=== PATIENT | male | born 1950 | race Caucasian/White ===

== ENCOUNTER 2016-07-25 20:05 | Emergency (ER) | payer BC, OTHER ==
[~2016-07-25] VITALS: Ht 177.8 cm; Wt 99.2 kg
[~2016-07-25 20:05] MED LIST: ASPEC81 PO; GLC/500 PO; OXYC1TAB3 PO; OXYSR10 PO; SENN-65 PO
[2016-07-25 20:09] VITALS: TEMP 37.1; Ht 177.8 cm; Wt 99.2 kg
[2016-07-25] MEDS ORDERED: MoRPHine SULFATE 10 MG/ML CARP/VIAL IM STA (20:19)
[2016-07-25] MEDS ORDERED: ONDANSETRON 4MG OD TAB PO ONE (20:30)
[2016-07-25] MEDS ORDERED: OXYC-164 PO (20:46)
--- NOTE | 2016-07-25 21:23 | DIAGNOSTIC IMAGING REPORT ---
LEFT RIBS UNILATERAL WITH PA CHEST CLINICAL HISTORY: Left lower rib pain. Shortness of breath. COMPARISON STUDY: Chest radiograph October 16, 2010. FINDINGS: There is no pneumothorax or pleural effusion. Linear left lower lung opacity suggests atelectasis or scarring. There are multiple old bilateral rib fractures. In addition, there are are acute nondisplaced fractures of the anterior left eighth and ninth ribs. There is no evidence for pulmonary edema. Cardiomediastinal silhouette is stable. IMPRESSION: Acute nondisplaced fractures of the anterior left eighth and ninth ribs. No pneumothorax. Multiple old bilateral rib fractures. Electronically signed by: Nemesio Gtz M.D. 07/25/2016 9:22 PM Dictated Date/Time: 07/25/2016 9:17 PM
[2016-07-25] MEDS ORDERED: OXYC1TAB3 PO (21:46)
[2016-07-25] MEDS ORDERED: HYDROmorphone INJ 1 MG/ML SYR IM STA (22:01)
--- NOTE | 2016-07-25 22:01 | EMERGENCY ROOM VISIT NOTE ---
ED Visit Note First contact with patient: 20:15 The patient was seen and examined with Hill Galvan. I agree with the history, physical and findings. Please see the note for disposition and details.
[2016-07-25] MEDS ORDERED: OXYCODONE IR HOME PACK PO ONE (22:15)
[2016-07-25 22:18] VITALS: BP 171/69; PULSE 76; O2SAT 93
--- NOTE | 2016-07-25 23:25 | EMERGENCY ROOM VISIT NOTE ---
History First contact with patient: 20:15 Chief Complaint: RIB PAIN Stated Complaint: RIB LEFT SIDE-BREATHING History of Present Illness The patient is a 66 year old male who presents to the Emergency Room with complaints of left lower rib pain. 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 He felt a pop in his ribs. The patient reports that this happened over a week ago. He reports that the pain was slowly improving until today. He believes that he may have done something else to reinjure the ribs, but does not recall any specific injury. The patient reports that he now has shortness of breath with ambulation. The pain does not radiate into the back or abdomen. He has had no fever or chills. The patient has had multiple traumatic injuries in the past, including rib fractures. He rates his discomfort a 9 out of 10 on exam. Review of Systems 10 system review was performed and was negative except for pertinent positives and negatives as indicated in history of present illness Past Medical/Surgical History Medical Problems: (1) Benign hypertension Medical Problems: (1) Acute Kidney Failure With Lesion Of Tubular Necrosis (2) Acute Renal Failure, Unspecified (3) Asthma, Unspecified (4) Benign hypertension (5) Biceps Tendon Rupture (6) Chr Maxillary Sinusitis (7) Depressive Disorder Nec (8) Endocarditis Nos (9) Esophageal Reflux (10) Fx Mult Ribs Nos-Closed (11) Hepatitis Nos (12) Hypertension Nos (13) Opioid type dependence, unspecified (14) Pneumonia, Organism Nos (15) Pulmonary Collapse (16) Type 2 Diabetes Mellitus Without Complications (17) Vitamin D Deficiency, Unspecified Surgical Problems: (1) History of cholecystectomy (2) Previous back surgery Family History FH: heart disease Social History Smoking Status: Former Smoker Alcohol Use: none Marital Status: Occupation Status: employed Current/Historical Medications Scheduled Metformin Hcl (Glucophage), 500 MG PO BID Oxycodone Hcl (Oxycodone Hcl), 1 TAB PO Q12 Oxycodone Ir (Roxicodone Ir), 5 MG PO Q6HR PRN Scheduled PRN Oxycodone Ir (Roxicodone Ir), 1-2 TAB PO Q4H PRN for Pain Allergies Coded Allergies: No Known Allergies (Verified , 07/25/16) Physical Exam Vital Signs Date Time Temp Pulse Resp B/P Pulse Ox O2 Delivery O2 Flow Rate FiO2 07/25/16 22:18 76 18 171/69 93 07/25/16 20:09 37.1 80 20 187/76 94 Room Air Physical Exam CONSTITUTIONAL: Healthy and well nourished. Alert and oriented X 3 with positive affect. Patient appears in moderate discomfort from pain. HEENT: Normocephalic, atraumatic. Pupils equal, round and reactive. NECK: Full active range of motion without discomfort. RESPIRATORY: Clear to auscultation bilaterally with no wheezing, crackles, rhonchi or stridor. Deep breathing worsens the patient's left lower rib discomfort. CARDIOVASCULAR: Regular rate and rhythm with no murmurs, rubs or gallops. GASTROINTESTINAL: Bowel sounds present in all quadrants. Soft and nontender to palpation. MUSCULOSKELETAL: Examination shows tenderness to palpation through the left lateral and inferior rib region. The patient has no tenderness to palpation of the abdominal left upper quadrant area no focal tenderness through the rib heads or costochondral joints. No ecchymosis is noted over the chest wall. No subcutaneous emphysema or flail chest. INTEGUMENTARY: No rash or other significant dermatologic conditions noted. NEUROLOGIC: No focal neurologic deficits noted. Medical Decision & Procedures ER Provider Diagnostic Interpretation: My interpretation of left rib x-rays does not show any acute pneumothorax or consolidation. He does have acute nondisplaced fractures of the anterior left eighth and ninth ribs. Radiologist report is as follows: LEFT RIBS UNILATERAL WITH PA CHEST CLINICAL HISTORY: Left lower rib pain. Shortness of breath. COMPARISON STUDY: Chest radiograph October 16, 2010. FINDINGS: There is no pneumothorax or pleural effusion. Linear left lower lung opacity suggests atelectasis or scarring. There are multiple old bilateral rib fractures. In addition, there are are acute nondisplaced fractures of the anterior left eighth and ninth ribs. There is no evidence for pulmonary edema. Cardiomediastinal silhouette is stable. IMPRESSION: Acute nondisplaced fractures of the anterior left eighth and ninth ribs. No pneumothorax. Multiple old bilateral rib fractures. Medications Administered Medications (Trade) Dose Ordered Sig/Dolly Route Start Time Stop Time Status Last Admin Dose Admin Morphine Sulfate (MoRPHine SULFATE INJ) 6 mg NOW STAT IM 07/25/16 20:19 07/25/16 20:21 DC 07/25/16 20:37 6 MG Ondansetron HCl (Zofran Odt) 4 mg ONE ONCE PO 07/25/16 20:30 07/25/16 20:32 DC 07/25/16 20:37 4 MG Hydromorphone HCl (Dilaudid Inj) 1 mg ONE STAT IM 07/25/16 22:01 07/25/16 22:03 DC 07/25/16 22:01 1 MG Oxycodone HCl (Roxicodone Immediate Rel 5MG Home Pack) 1 homepack UD ONCE PO 07/25/16 22:15 07/25/16 22:16 DC 07/25/16 22:13 1 HOMEPACK ED Course Patient history and physical exam were performed. Nurse's notes were reviewed. The patient did request something for pain, and was administered morphine 6 mg IM. X-rays of left ribs with a PA chest shows nondisplaced fractures of the left anterior eighth and ninth ribs. No consolidations or pneumothorax noted. The patient was advised of his x-ray findings. The patient reports that he has used an incentive spirometer in the past, but does not have one at home. One was dispensed with instructions for use. Regarding pain management, I did ask the patient if he has pain medications at home. His reports that he is on chronic pain management for his back, and takes OxyContin and oxycodone, prescribed by his PCP, Dr. Glez. Review of the [place] Prescription Drug Monitoring Program does show that he receives monthly prescriptions. He is due for another prescription refill. I did explain to the patient that he must discuss further pain management with his PCP. The patient reports that he only has a few pills left, and is requesting a prescription until he can get his new prescriptions filled. Because the patient does have rib fractures, a prescription and will be provided , however the patient was instructed to call his PCPs office tomorrow to let them know that he got a prescription from the emergency department. I explained that his pain management contract may be nullified if he does not advised them. Both the patient and voiced understanding. The patient was provided a home pack and prescription for OxyIR 5 mg, dispensed #36 with no refills. The patient was also instructed to follow-up with his PCP for further rib fracture management. Return to the emergency department for any shortness of breath, fever or developing productive cough. The patient was administered an additional Dilaudid 1 mg IM prior to discharge, and further reduced his pain from a 6 out of 10 to a 3 out of 10 at the conclusion of my exam. The patient was also seen and examined by Dr. Dang, ED attending physician , who agrees with workup and plan of care. [place] Drug Monitoring Program Search Results: patient reviewed within database, see additional documentation Impression Primary Impression: Multiple rib fractures Departure Information Prescriptions Oxycodone Ir (Roxicodone Ir) 5 Mg Tab 1-2 TAB PO Q4H Y for Pain, #36 TAB For Initial Treatment Prov: Nicola Galvan PA 07/25/16 Referrals Jerzy Glez M.D. (PCP) Patient Instructions [facility] Problem Qualifiers Primary Impression: Multiple rib fractures Encounter type: initial encounter Fracture type: closed Laterality: left Qualified Codes: S22.42XA - Multiple fractures of ribs, left side, initial encounter for closed fracture
== END 2016-07-25 22:19 | disposition home or self-care (01) ==
LOC: C.EDB 20:06 → C.EDD 22:19
DX: S22.42XA Multiple fractures of ribs, left side, initial encounter for closed fracture (principal); X58.XXXA Exposure to other specified factors, initial encounter; I10 Essential (primary) hypertension; E11.9 Type 2 diabetes mellitus without complications; K21.9 Gastro-esophageal reflux disease without esophagitis; I38 Endocarditis, valve unspecified; J45.909 Unspecified asthma, uncomplicated; F32.9 Major depressive disorder, single episode, unspecified; Z87.81 Personal history of (healed) traumatic fracture; Z90.49 Acquired absence of other specified parts of digestive tract; Z98.890 Other specified postprocedural states; Z87.891 Personal history of nicotine dependence; Z79.4 Long term (current) use of insulin; Z82.49 Family history of ischemic heart disease and other diseases of the circulatory system

== ENCOUNTER 2022-01-01 16:24 | Inpatient (IN) ==
--- NOTE | 2022-01-01 17:27 | ED Triage Note ---
Date of Service January 01, 2022 History of Present Illness This patient was briefly evaluated while in triage. An abbreviated physical exam was performed. This patient is a 71-year-old Male with past medical history of hypertension, diabetes, history of cholecystectomy and back surgery, who presents to the ED for evaluation of trouble breathing and pain in the left mid to upper back that comes through to the chest, and feels pressure in chest that started about 3 days ago. Pain and SOB worse with exertion. Denies cough, fevers, chills. Has been having some swelling in legs. Denies any history of previous heart disease. Physical Exam CONSTITUTIONAL: No acute distress. Well appearing. RESPIRATORY: Bibasilar fine crackles, diminished lung sounds bilaterally. Equal expansion bilaterally. CARDIOVASCULAR: Regular rate and rhythm with no murmurs, rubs or gallops. Normal peripheral perfusion. NEUROLOGIC: Alert and oriented X 4 with normal affect. Initial orders for labs and / or imaging were placed and patient was placed in the waiting area until a bed is available. Please see further documentation for the full ED course.
[2022-01-01 19:28] LABS: Basophils # (auto) 0.06 K/uL (0-0.2); Basophils % (auto) 0.6 %; Eosinophils # (auto) 0.24 K/uL (0-0.50); Eosinophils % (auto) 2.4 %; Hematocrit (blood only) 39.9 % (40.1-51.0); Hemoglobin 13.8 g/dl (14.0-18.0); Immature Granulocytes # (auto) 0.03 K/uL (0.00-0.02); Immature Granulocytes % (auto) 0.3 %; Lymphocytes # (auto) 2.21 K/uL (1.2-3.4); Lymphocytes % (auto) 21.7 %; Mean Corpuscular Hemoglobin 33.4 pg (25.0-34.0); Mean Corpuscular Hgb Conc 34.6 g/dL (32.0-36.0); Mean Corpuscular Volume 96.6 fL (80.0-100.0); Mean Platelet Volume 10.9 fL (9.4-12.4); Monocytes # (auto) 0.68 K/uL (0.24-0.82); Monocytes % (auto) 6.7 %; Neutrophils # (auto) 6.96 K/uL (1.4-6.5); Neutrophils % (auto) 68.3 %; Platelet Count 191 K/uL (130-400); RDW Coefficient of Variation 14.7 % (11.5-14.5); RDW Standard Deviation 52.4 fL (36.4-46.3); Red Blood Count 4.13 M/uL (4.63-6.08); White Blood Count 10.18 K/ul (4.8-10.8)
[2022-01-01 19:48] LABS: INR 1.1 (0.9-1.1); Partial Thromboplastin Time 28.5 Seconds (21.0-31.0); Prothrombin Time 11.4 Seconds (9.0-12.0)
[2022-01-01 20:02] LABS: Albumin Globulin Ratio 0.8 (0.9-2); Albumin Level 3.1 gm/dl (3.4-5.0); Bilirubin,Total 1.2 mg/dl (0.2-1.0); Calcium 8.9 mg/dl (8.5-10.1); Creatinine Clr Calc Pharmacy 71.4 ml/min; Est GFR (African American) 77.6 ml/min; Globulin 3.9 gm/dl (2.5-4.0); Potassium 4.5 mmol/L (3.5-5.1)
[2022-01-01 20:07] LABS: Troponin I High Sensitivity 17.5 pg/ml (0-20)
[2022-01-01] MEDS ORDERED: OPTIRAY 300 500mL IV ONE (20:28)
[2022-01-01] MEDS ORDERED: FUROSEMIDE 40 MG/4 ML VIAL IV ONE (21:16)
[2022-01-01] MEDS ORDERED: oxyCODONE HCL IR 5 MG TAB (IMMEDIATE RELEASE) PO STA (21:19)
--- NOTE | 2022-01-01 21:28 | XRay Report ---
XR chest 1V portable HISTORY: 71 years-old Male Chest Pain acute chest pain COMPARISON: CTA chest of same day TECHNIQUE: AP view of the chest FINDINGS: Cardiomegaly with mild pulmonary edema and trace pleural effusions. No pneumothorax. Healed chronic r ight-sided rib fractures. Degenerative changes of the shoulders and spine. IMPRESSION: Cardiomegaly with pulmonary edema and trace pleural effusions. ACT 112: Negative or not required by law. The above report was generated using voice recognition software. It may contain grammatical, syntax o r spelling errors. Electronically signed by: Louis Johnson M.D. 01/01/2022 9:27 PM
--- NOTE | 2022-01-01 21:28 | CT Scan Report ---
CT angio chest PE protocol CT DOSE: 498.41 mGy.cm HISTORY: 71 years-old Male with Left CP, SOB, eval for PE. Acute left-sided chest pain with shortne ss of breath TECHNIQUE: Multiple CTA images of the chest were obtained after the intravenous administration of 108 ml Optiray. Coronal and sagittal MIPS were obtained from the axial data set and were submitted for review. All measurements were obtained according to NASCET criteria. A dose lowering technique was u tilized adhering to the principles of ALARA. COMPARISON: CTA chest 08/22/2019 FINDINGS: CTA: Moderate cardiac enlargement. Moderate coronary artery calcifications. No pericardial effusion. No th oracic aortic aneurysm or dissection. There is patency of the imaged great vessels. Unremarkable pulm onary artery. No pulmonary emboli are identified. CT CHEST: No thyroid nodule. Mildly enlarged mediastinal and hilar lymph nodes include hilar lymph nodes measur ing up to 1.4 cm on the right, previously 11 mm. Chronic pleural thickening with pleural calcificatio ns. Trace pleural effusions are also present. No pneumothorax. Intralobular septal thickening with bi lateral groundglass densities and subpleural predominant reticulation. Scattered bilateral subcentime ter solid pulmonary nodules measuring up to 9 mm within the right lower lobe appears stable from the prior study. No new or enlarging pulmonary nodules are identified. Cholecystectomy. Spleen is prominent in size. Suggestion of mild hepatic steatosis. Trace fluid poste rior to the right hepatic lobe. Prominent subcentimeter upper abdominal lymph nodes. Gynecomastia. No acute fracture identified. IMPRESSION: 1. Cardiomegaly with mild pulmonary edema and trace pleural effusions. No pulmonary emboli. 2. Chronic pleural thickening with pleural calcifications and subpleural nodules. 3. Subcentimeter bilateral solid pulmonary nodules appear stable from the prior study measuring up to 9 mm. 4. Nonspecific mediastinal and hilar lymphadenopathy. ACT 112: Negative or not required by law. The above report was generated using voice recognition software. It may contain grammatical, syntax o r spelling errors. Electronically signed by: Louis Johnson M.D. 01/01/2022 9:26 PM
[2022-01-01] MEDS ORDERED: METOPROLOL TARTRATE 25 MG TAB PO STA (23:23)
[2022-01-01] MEDS ORDERED: ACETAMINOPHEN 325 MG TAB PO STA (23:23)
[2022-01-02] MEDS ORDERED: NITROGLYCERIN SL 0.4 MG/TAB TAB SL STA (00:54)
[2022-01-02] MEDS: oxyCODONE HCL IR 5 MG TAB (IMMEDIATE RELEASE) PO PRN ×2 (01:05→08:30)
--- NOTE | 2022-01-02 01:27 | History & Physical Report ---
Date of Service January 02, 2022 Assessment & Plan (1) Acute decompensated heart failure: Plan: ? Secondary to uncontrolled blood pressure Chest pain and troponin elevation secondary to above Rule out ACS given patient risk factors DM2 on oral medications, reasonable control as of recent hemoglobin A1c of 7.1 last July 2021 CRI, creatinine better to baseline chronic anemia, hemoglobin at baseline hx cirrhosis, no overt decompensation chronic back pain past tobacco abuse PCU Add beta-alicia to losartan Diuretic Rx Strict I/Os, daily weights, CHF education Follow troponin TTE, Cardiology consult Re: Chest pain, CHF Aspirin for CAD prevention until ACS ruled out Basal bolus insulin, ISS BG goal 1 10-1 40, carb count coverage DVT prophylaxis. Lovenox subcu Full code Text document was generated using [employer] voice recognition software. It may contain grammatical or spelling errors. Kindly contact undersigned for clarification of any documentation item in question. History of Present Illness Chief Complaint: Chest pain, shortness of breath, leg swelling Primary Care Provider: Jerzy Glez MD History obtained from patient and records. Medical history significant for hypertension, history endocarditis, DM2 on oral medications, CRI (baseline creatinine 1.3), chronic anemia (baseline hemoglobin 12-13), cirrhosis, chronic back pain, past tobacco abuse. Last confinement 2010 for orthostatic hypotension. 3 days history of left-sided chest pain going to the back with some shortness of breath. No unusual cough symptoms. Bilateral leg swelling. No abdominal distention. Achy headache symptoms. Good BP control at home as per patient. IV Lasix given at the ER for CHF. SBP upon arrival at the ER 190s. 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 Allergies Allergy/AdvReac Type Severity Reaction Status Date / Time No Known Allergies Allergy Verified 01/02/22 00:49 Home Medications Medication Instructions Recorded Confirmed Type metformin 500 mg tablet 500 mg PO BIDM 08/22/19 01/02/22 History furosemide 20 mg tablet 10 mg PO MOWEFR 01/02/22 01/02/22 History gabapentin 300 mg capsule 300 mg PO TID 01/02/22 01/02/22 History losartan 50 mg tablet 50 mg PO QAM 01/02/22 01/02/22 History oxycodone 10 mg tablet 10 mg PO QID 01/02/22 01/02/22 History trazodone 100 mg tablet 100 mg PO HS 01/02/22 01/02/22 History Past Med/Surg History Medical History (Updated 01/02/22 @ 10:59 by Gustavo Villarreal DO) Multiple rib fractures Opioid type dependence, unspecified Rib pain (09/10/10) Subacute bacterial endocarditis (09/24/10) Surgical History History of cholecystectomy Previous back surgery Social History Smoking Status: Former smoker Hx Alcohol Use: No Hx Substance Use: No Preferred Language: Azeri Communication Ability: Effective Gambling Broker Required: No Beliefs That Will Affect Care: None Current Living Situation: Spouse Other Information That Helps Us Care for You: No Feels Safe at Home: Yes Safety Concerns: Feels Safe At This Time Assistive Devices: Denture - Upper Review of Systems Review of Systems: As per HPI, all other systems reviewed and negative Physical Exam Physical Exam: GENERAL: Comfortable, pleasant, slightly anxious, no respiratory distress SKIN: Normal color, warm HEENT: [place] palpebral conjunctivae, no ptosis, moist buccal mucosa NECK : Supple, no tenderness CHEST : Decreased breath sounds, no tenderness HEART : RRR, no obvious murmurs ABDOMEN: Some distention, nontender EXTREMITIES : Minimal LE swelling, no LE tenderness, no other conspicuous deformities noted NEUROLOGIC : Coherent, no facial asymmetry, no other gross focality Results & Data Results & Data ([facility]) Vital Signs (Past 12 Hours) Vital Signs Temp Pulse Pulse Resp BP BP Pulse Ox 01/02/22 01:06 68 20 180/90 H 93 01/01/22 23:55 81 24 198/68 H 98 01/01/22 21:03 83 18 144/104 H 95 01/01/22 19:12 01/01/22 17:24 37.0 C 80 18 198/77 H 95 O2 Del Method 01/02/22 01:06 Room Air 01/01/22 23:55 01/01/22 21:03 Room Air 01/01/22 19:12 Room Air 01/01/22 17:24 Room Air Laboratory Results Laboratory Results WBC 10.18 K/ul (4.8-10.8) 01/01/22 19:15 RBC 4.13 M/uL (4.63-6.08) L 01/01/22 19:15 Hgb 13.8 g/dl (14.0-18.0) L 01/01/22 19:15 Hct 39.9 % (40.1-51.0) L 01/01/22 19:15 MCV 96.6 fL (80.0-100.0) 01/01/22 19:15 MCH 33.4 pg (25.0-34.0) 01/01/22 19:15 MCHC 34.6 g/dL (32.0-36.0) 01/01/22 19:15 RDW Std Deviation 52.4 fL (36.4-46.3) H 01/01/22 19:15 RDW Coeff of Marjorie 14.7 % (11.5-14.5) H 01/01/22 19:15 Plt Count 191 K/uL (130-400) 01/01/22 19:15 MPV 10.9 fL (9.4-12.4) 01/01/22 19:15 Immature Gran % (Auto) 0.3 % 01/01/22 19:15 Neut % (Auto) 68.3 % 01/01/22 19:15 Lymph % (Auto) 21.7 % 01/01/22 19:15 [place] % (Auto) 6.7 % 01/01/22 19:15 Eos % (Auto) 2.4 % 01/01/22 19:15 Baso % (Auto) 0.6 % 01/01/22 19:15 Neut # (Auto) 6.96 K/uL (1.4-6.5) H 01/01/22 19:15 Lymph # (Auto) 2.21 K/uL (1.2-3.4) 01/01/22 19:15 [place] # (Auto) 0.68 K/uL (0.24-0.82) 01/01/22 19:15 Eos # (Auto) 0.24 K/uL (0-0.50) 01/01/22 19:15 Baso # (Auto) 0.06 K/uL (0-0.2) 01/01/22 19:15 Immature Gran # (Auto) 0.03 K/uL (0.00-0.02) H 01/01/22 19:15 PT 11.4 Seconds (9.0-12.0) 01/01/22 19:15 INR 1.1 (0.9-1.1) 01/01/22 19:15 APTT 28.5 Seconds (21.0-31.0) 01/01/22 19:15 PTT Ratio 1.0 01/01/22 19:15 Sodium 135 mmol/L (136-145) L 01/01/22 19:15 Potassium 4.5 mmol/L (3.5-5.1) 01/01/22 19:15 Chloride 103 mmol/L (98-107) 01/01/22 19:15 Carbon Dioxide 27 mmol/L (21-32) 01/01/22 19:15 Anion Gap 5 (3-11) 01/01/22 19:15 BUN 12 mg/dl (6-23) 01/01/22 19:15 Creatinine 1.09 mg/dl (0.6-1.4) 01/01/22 19:15 Est Cr Clr Drug Dosing 71.4 ml/min 01/01/22 19:15 Est GFR ( Amer) 77.6 ml/min 01/01/22 19:15 Est GFR (Non-Af Amer) 67.0 ml/min 01/01/22 19:15 BUN/Creatinine Ratio 11.0 (10-20) 01/01/22 19:15 Glucose 111 mg/dl (70-99(Fasting)) H 01/01/22 19:15 Calcium 8.9 mg/dl (8.5-10.1) 01/01/22 19:15 Magnesium 1.7 mg/dl (1.7-2.4) 01/01/22 21:36 Total Bilirubin 1.2 mg/dl (0.2-1.0) H 01/01/22 19:15 AST 48 U/L (13-39) H 01/01/22 19:15 ALT 31 U/L (7-52) 01/01/22 19:15 Alkaline Phosphatase 205 U/L (34-104) H 01/01/22 19:15 Troponin I High Sens 18.8 pg/ml (0-20) 01/01/22 21:36 Total Protein 7.0 gm/dl (6.0-8.3) 01/01/22 19:15 Albumin 3.1 gm/dl (3.4-5.0) L 01/01/22 19:15 Globulin 3.9 gm/dl (2.5-4.0) 01/01/22 19:15 Albumin/Globulin Ratio 0.8 (0.9-2) L 01/01/22 19:15 Lipase 12 U/L (11-82) 01/01/22 19:15 SARS-CoV-2, RNA, NAAT NEGATIVE (NEGATIVE) 01/01/22 19:15 Impressions Chest X-Ray 01/01/22 17:27 XR chest 1V portable HISTORY: 71 years-old Male Chest Pain acute chest pain COMPARISON: CTA chest of same day TECHNIQUE: AP view of the chest FINDINGS: Cardiomegaly with mild pulmonary edema and trace pleural effusions. No pneumothorax. Healed chronic right-sided rib fractures. Degenerative changes of the shoulders and spine. IMPRESSION: Cardiomegaly with pulmonary edema and trace pleural effusions. ACT 112: Negative or not required by law. The above report was generated using voice recognition software. It may contain grammatical, syntax or spelling errors. Electronically signed by: Louis Johnson M.D. 01/01/2022 9:27 PM Chest CTA 01/01/22 17:28 CT angio chest PE protocol CT DOSE: 498.41 mGy.cm HISTORY: 71 years-old Male with Left CP, SOB, eval for PE. Acute left-sided chest pain with shortness of breath TECHNIQUE: Multiple CTA images of the chest were obtained after the intravenous administration of 108 ml Optiray. Coronal and sagittal MIPS were obtained from the axial data set and were submitted for review. All measurements were obtained according to NASCET criteria. A dose lowering technique was utilized adhering to the principles of ALARA. COMPARISON: CTA chest 08/22/2019 FINDINGS: CTA: Moderate cardiac enlargement. Moderate coronary artery calcifications. No pericardial effusion. No thoracic aortic aneurysm or dissection. There is patency of the imaged great vessels. Unremarkable pulmonary artery. No pulmonary emboli are identified. CT CHEST: No thyroid nodule. Mildly enlarged mediastinal and hilar lymph nodes include hilar lymph nodes measuring up to 1.4 cm on the right, previously 11 mm. Chronic pleural thickening with pleural calcifications. Trace pleural effusions are also present. No pneumothorax. Intralobular septal thickening with bilateral groundglass densities and subpleural predominant reticulation. Scattered bilateral subcentimeter solid pulmonary nodules measuring up to 9 mm within the right lower lobe appears stable from the prior study. No new or enlarging pulmonary nodules are identified. Cholecystectomy. Spleen is prominent in size. Suggestion of mild hepatic steato sis. Trace fluid posterior to the right hepatic lobe. Prominent subcentimeter upper abdominal lymph nodes. Gynecomastia. No acute fracture identified. IMPRESSION: 1. Cardiomegaly with mild pulmonary edema and trace pleural effusions. No pulmonary emboli. 2. Chronic pleural thickening with pleural calcifications and subpleural nodules. 3. Subcentimeter bilateral solid pulmonary nodules appear stable from the prior study measuring up to 9 mm. 4. Nonspecific mediastinal and hilar lymphadenopathy. ACT 112: Negative or not required by law. The above report was generated using voice recognition software. It may contain grammatical, syntax or spelling errors. Electronically signed by: Louis Johnson M.D. 01/01/2022 9:[address] head initial read: There is mild brain volume loss. No mass, hemorrhage or acute infarct. Sinuses, mastoids and the bones are intact. Impression:No acute findings. EKG as per my interpretation : Rate 75, NSR, LAD, LAFB, LVH, T wave abnormalities inferior leads
[2022-01-02] MEDS ORDERED: PROMETHAZINE HCL 12.5 MG in SODIUM CHLORIDE 0.9% 50 ML IV PRN (02:36)
[2022-01-02] MEDS ORDERED: GLUCOSE 40% GEL 15 GM TUBE PO PRN (02:36)
[2022-01-02] MEDS ORDERED: MoRPHine SULFATE 4 MG/ML 1 ML CARP\\VIAL IV PRN (02:36)
[2022-01-02] MEDS ORDERED: CARBOHYDRATES FOR HYPOGLYCEMIA PO PRN (02:36)
[2022-01-02] MEDS ORDERED: GLUCAGON FOR INJ 1 MG VIAL SQ PRN (02:36)
[2022-01-02] MEDS ORDERED: GLUCOSE 10 TAB/TUBE PO PRN (02:36)
[2022-01-02] MEDS ORDERED: ACETAMINOPHEN 325 MG TAB PO PRN (02:36)
[2022-01-02] MEDS ORDERED: DEXTROSE 50% 50 ML SYRINGE IV PRN (02:36)
[2022-01-02] MEDS: INSULIN ASPART PER UNIT SC SCH ×5 (03:07→20:30)
[2022-01-02] MEDS: traZODone HCL 100 MG TAB PO SCH ×2 (03:12→21:15)
[2022-01-02 06:06] LABS: Basophils # (auto) 0.09 K/uL (0-0.2); Basophils % (auto) 0.8 %; Eosinophils # (auto) 0.39 K/uL (0-0.50); Eosinophils % (auto) 3.3 %; Hematocrit (blood only) 34.7 % (40.1-51.0); Hemoglobin 12.1 g/dl (14.0-18.0); Immature Granulocytes # (auto) 0.03 K/uL (0.00-0.02); Immature Granulocytes % (auto) 0.3 %; Lymphocytes # (auto) 3.21 K/uL (1.2-3.4); Lymphocytes % (auto) 26.9 %; Mean Corpuscular Hemoglobin 32.7 pg (25.0-34.0); Mean Corpuscular Hgb Conc 34.9 g/dL (32.0-36.0); Mean Corpuscular Volume 93.8 fL (80.0-100.0); Mean Platelet Volume 11.2 fL (9.4-12.4); Monocytes # (auto) 1.04 K/uL (0.24-0.82); Monocytes % (auto) 8.7 %; Neutrophils # (auto) 7.17 K/uL (1.4-6.5); Platelet Count 206 K/uL (130-400); RDW Coefficient of Variation 14.7 % (11.5-14.5); RDW Standard Deviation 50.7 fL (36.4-46.3); White Blood Count 11.93 K/ul (4.8-10.8)
[2022-01-02] MEDS: ASPIRIN 81 MG ECTAB PO SCH (06:16)
[2022-01-02] MEDS: LOSARTAN POTASSIUM 50 MG TAB PO SCH (06:16)
[2022-01-02 06:37] LABS: Partial Thromboplastin Time 27.5 Seconds (21.0-31.0)
[2022-01-02 07:09] LABS: BUN Creatinine Ratio 12.5 (10-20); Calcium 8.3 mg/dl (8.5-10.1); Creatinine Clr Calc Pharmacy 63.2 ml/min; Est GFR (African American) 69.1 ml/min; Est GFR (Non-African American) 59.6 ml/min; Potassium 3.8 mmol/L (3.5-5.1)
--- NOTE | 2022-01-02 07:13 | CT Scan Report ---
CT OF THE HEAD WITHOUT CONTRAST CLINICAL HISTORY: Headache. COMPARISON STUDY: Head CT September 30, 2010. CT DOSE: 614.27 mGy.cm TECHNIQUE: Helical axial images of the head were obtained without IV contrast. Automated exposure con trol was utilized for the study. A dose lowering technique was utilized adhering to the principles o f ALARA. FINDINGS: Note is made of intravascular contrast from recent contrast-enhanced chest CT. White matter hypodensity suggests small vessel disease. No acute intracranial hemorrhage, midline shift or mass e ffect is present. The ventricular system is unremarkable. The basal cisterns are patent. No extra-axi al collections are present. There are no findings to suggest acute dural sinus thrombosis or acute te rritorial infarct. No significant calvarial abnormalities are present. Visualized portions of the sin uses and mastoid air cells are clear. IMPRESSION: No acute intracranial findings. ACT 112: Negative or not required by law. Electronically signed by: Nemesio Gtz M.D. 01/02/2022 7:10 AM
[2022-01-02 07:32] LABS: Estimated Average Glucose 117 mg/dl; Hemoglobin A1C 5.7 % (4.5-5.6)
[2022-01-02 07:53] LABS: Troponin I High Sensitivity 20.8 pg/ml (0-20)
[2022-01-02] MEDS ORDERED: FUROSEMIDE 40 MG/4 ML VIAL IV ONE (08:00)
[2022-01-02] MEDS ORDERED: PERFLUTREN LIPID MICROSPHERE (DEFINITY) IV ONE (08:20)
[2022-01-02] MEDS ORDERED: METOPROLOL TARTRATE 25 MG TAB PO SCH (09:00)
[2022-01-02] MEDS ORDERED: LANTUS PER UNIT CHARGE SQ SCH (09:00)
[2022-01-02] MEDS ORDERED: LOSARTAN POTASSIUM 50 MG TAB PO SCH (09:00)
[2022-01-02] MEDS: ENOXAPARIN INJ 40 MG/0.4 ML SYR SQ SCH (09:05)
[2022-01-02] MEDS: GABAPENTIN 300 MG CAP PO SCH ×2 (09:09→12:30)
[2022-01-02] MEDS: METOPROLOL TARTRATE 25 MG TAB PO SCH ×2 (09:10→20:33)
--- NOTE | 2022-01-02 09:28 | Emergency Department Note ---
ED Provider Note CHIEF COMPLAINT: chest heavy, SOB HISTORY OF PRESENT ILLNESS: This 71 yo male patient presents to the emergency department with complaints of chest heaviness and shortness of breath. The patient states he has a history of chronic pain but this does feel somewhat differently. Patient takes Lasix 10 mg 3 times a week. For the last 2 days he has felt an "elephant sitting" on his chest. Patient states he has been waiting in the waiting room for several hours and missed his pain medication states his back has been bothering him. He takes oxycodone 10 mg 4 times a day. Patient denies any fevers, cough, abdominal pain, vomiting or diarrhea. He denies any history of coronary artery disease. REVIEW OF SYSTEMS: A review of systems was performed with positives and pertinent negatives listed in the history of present illness. 10 systems were reviewed and are otherwise negative. ALLERGIES: see below MEDICATIONS: see below PMH: see below SOCIAL HISTORY: see below DDx: Reactive airway disease, pneumonia, pneumothorax, COPD, CHF, infections, cardiac ischemia, pulmonary embolism, musculoskeletal, gastrointestinal, as well as other pathologies. PHYSICAL EXAM: Vital signs reviewed. General: Elderly, somewhat ill-appearing 71-year-old male, in no significant distress. HEENT: No scleral icterus, PERRLA, neck supple. Atraumatic. Cardiovascular: Regular rate and rhythm, no extra sounds. Pulmonary: Crackles to bases on auscultation bilaterally, normal work of breathing. Abdomen: Soft, nontender, nondistended, positive bowel sounds. Musculoskeletal: Atraumatic, no peripheral edema. Neurologic: Patient awake alert and oriented x 3, speech is clear Skin: Warm, dry, no rash EMERGENCY DEPARTMENT COURSE/MDM: [] MONITORING: An order for cardiac monitoring was placed and the patient is noted to be in a [] at [] beats per minute. 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 Beliefs That Will Affect Care: None Current Living Situation: Spouse Other Information That Helps Us Care for You: No Feels Safe at Home: Yes Safety Concerns: Feels Safe At This Time Assistive Devices: Denture - Upper Allergies Allergies Allergy/AdvReac Type Severity Reaction Status Date / Time No Known Allergies Allergy Verified 01/02/22 00:49 Home Meds Home Medications Medication Instructions Recorded Confirmed metformin 500 mg tablet 500 mg PO BIDM 08/22/19 01/02/22 furosemide 20 mg tablet 10 mg PO MOWEFR 01/02/22 01/02/22 gabapentin 300 mg capsule 300 mg PO TID 01/02/22 01/02/22 losartan 50 mg tablet 50 mg PO QAM 01/02/22 01/02/22 oxycodone 10 mg tablet 10 mg PO QID 01/02/22 01/02/22 trazodone 100 mg tablet 100 mg PO HS 01/02/22 01/02/22 Results & Data (ED) Vital Signs Vital Signs - 24 hr 01/01/22 17:24 01/01/22 17:24 01/01/22 19:12 Temperature 37.0 C Temperature Source Temporal Artery Scan Pulse Rate 80 Pulse Rate [Apical] Pulse Rhythm Regular Pulse Strength Normal Respiratory Rate 18 Respiratory Effort / Characteristics Non-Labored Respiratory Depth Normal Blood Pressure 198/77 H Blood Pressure [Left Arm] Blood Pressure Mean 117 Blood Pressure Mean [Left Arm] Blood Pressure Position Lying Pulse Oximetry 95 Oxygen Delivery Method Room Air Room Air Sepsis Recent Fever Within 48 Hours No Sepsis New/Unexplained Change in Mental Status No Sepsis Action Taken by Nursing No Action Required 01/01/22 21:03 01/01/22 23:55 01/02/22 01:06 Temperature Temperature Source Pulse Rate Pulse Rate [Apical] 83 81 68 Pulse Rhythm Pulse Strength Respiratory Rate 18 24 20 Respiratory Effort / Characteristics Respiratory Depth Blood Pressure Blood Pressure [Left Arm] 144/104 H 198/68 H 180/90 H Blood Pressure Mean Blood Pressure Mean [Left Arm] 117 111 120 Blood Pressure Position Pulse Oximetry 95 98 93 Oxygen Delivery Method Room Air Room Air Sepsis Recent Fever Within 48 Hours Sepsis New/Unexplained Change in Mental Status Sepsis Action Taken by Nursing Laboratory Data Result diagrams: 01/02/22 05:34 01/02/22 05:52 Lab Results 01/01/22 01/01/22 01/01/22 Range/Units 17:27 19:15 19:15 WBC 10.18 (4.8-10.8) K/ul RBC 4.13 L (4.63-6.08) M/uL Hgb 13.8 L (14.0-18.0) g/dl Hct 39.9 L (40.1-51.0) % MCV 96.6 (80.0-100.0) fL MCH 33.4 (25.0-34.0) pg MCHC 34.6 (32.0-36.0) g/dL RDW Std Deviation 52.4 H (36.4-46.3) fL RDW Coeff of Marjorie 14.7 H (11.5-14.5) % Plt Count 191 (130-400) K/uL MPV 10.9 (9.4-12.4) fL Immature Gran % (Auto) 0.3 % Neut % (Auto) 68.3 % Lymph % (Auto) 21.7 % [place] % (Auto) 6.7 % Eos % (Auto) 2.4 % Baso % (Auto) 0.6 % Neut # (Auto) 6.96 H (1.4-6.5) K/uL Lymph # (Auto) 2.21 (1.2-3.4) K/uL [place] # (Auto) 0.68 (0.24-0.82) K/uL Eos # (Auto) 0.24 (0-0.50) K/uL Baso # (Auto) 0.06 (0-0.2) K/uL Immature Gran # (Auto) 0.03 H (0.00-0.02) K/uL PT (9.0-12.0) Seconds INR (0.9-1.1) APTT (21.0-31.0) Seconds PTT Ratio Sodium 135 L (136-145) mmol/L Potassium 4.5 (3.5-5.1) mmol/L Chloride 103 (98-107) mmol/L Carbon Dioxide 27 (21-32) mmol/L Anion Gap 5 (3-11) BUN 12 (6-23) mg/dl Creatinine 1.09 (0.6-1.4) mg/dl Est Cr Clr Drug Dosing 71.4 ml/min Est GFR ( Amer) 77.6 ml/min Est GFR (Non-Af Amer) 67.0 ml/min BUN/Creatinine Ratio 11.0 (10-20) Glucose 111 H (70-99(Fasting)) mg/dl Estimat Average Glucose 117 mg/dl Hemoglobin A1c 5.7 H (4.5-5.6) % Calcium 8.9 (8.5-10.1) mg/dl Magnesium (1.7-2.4) mg/dl Total Bilirubin 1.2 H (0.2-1.0) mg/dl AST 48 H (13-39) U/L ALT 31 (7-52) U/L Alkaline Phosphatase 205 H (34-104) U/L Troponin I High Sens 17.5 (0-20) pg/ml Total Protein 7.0 (6.0-8.3) gm/dl Albumin 3.1 L (3.4-5.0) gm/dl Globulin 3.9 (2.5-4.0) gm/dl Albumin/Globulin Ratio 0.8 L (0.9-2) Lipase 12 (11-82) U/L SARS-CoV-2, RNA, NAAT (NEGATIVE) 01/01/22 01/01/22 01/01/22 Range/Units 19:15 19:15 21:36 WBC (4.8-10.8) K/ul RBC (4.63-6.08) M/uL Hgb (14.0-18.0) g/dl Hct (40.1-51.0) % MCV (80.0-100.0) fL MCH (25.0-34.0) pg MCHC (32.0-36.0) g/dL RDW Std Deviation (36.4-46.3) fL RDW Coeff of Marjorie (11.5-14.5) % Plt Count (130-400) K/uL MPV (9.4-12.4) fL Immature Gran % (Auto) % Neut % (Auto) % Lymph % (Auto) % [place] % (Auto) % Eos % (Auto) % Baso % (Auto) % Neut # (Auto) (1.4-6.5) K/uL Lymph # (Auto) (1.2-3.4) K/uL [place] # (Auto) (0.24-0.82) K/uL Eos # (Auto) (0-0.50) K/uL Baso # (Auto) (0-0.2) K/uL Immature Gran # (Auto) (0.00-0.02) K/uL PT 11.4 (9.0-12.0) Seconds INR 1.1 (0.9-1.1) APTT 28.5 (21.0-31.0) Seconds PTT Ratio 1.0 Sodium (136-145) mmol/L Potassium (3.5-5.1) mmol/L Chloride (98-107) mmol/L Carbon Dioxide (21-32) mmol/L Anion Gap (3-11) BUN (6-23) mg/dl Creatinine (0.6-1.4) mg/dl Est Cr Clr Drug Dosing ml/min Est GFR ( Amer) ml/min Est GFR (Non-Af Amer) ml/min BUN/Creatinine Ratio (10-20) Glucose (70-99(Fasting)) mg/dl Estimat Average Glucose mg/dl Hemoglobin A1c (4.5-5.6) % Calcium (8.5-10.1) mg/dl Magnesium (1.7-2.4) mg/dl Total Bilirubin (0.2-1.0) mg/dl AST (13-39) U/L ALT (7-52) U/L Alkaline Phosphatase (34-104) U/L Troponin I High Sens 18.8 (0-20) pg/ml Total Protein (6.0-8.3) gm/dl Albumin (3.4-5.0) gm/dl Globulin (2.5-4.0) gm/dl Albumin/Globulin Ratio (0.9-2) Lipase (11-82) U/L SARS-CoV-2, RNA, NAAT NEGATIVE (NEGATIVE) 01/01/22 01/02/22 Range/Units 21:36 01:09 WBC (4.8-10.8) K/ul RBC (4.63-6.08) M/uL Hgb (14.0-18.0) g/dl Hct (40.1-51.0) % MCV (80.0-100.0) fL MCH (25.0-34.0) pg MCHC (32.0-36.0) g/dL RDW Std Deviation (36.4-46.3) fL RDW Coeff of Marjorie (11.5-14.5) % Plt Count (130-400) K/uL MPV (9.4-12.4) fL Immature Gran % (Auto) % Neut % (Auto) % Lymph % (Auto) % [place] % (Auto) % Eos % (Auto) % Baso % (Auto) % Neut # (Auto) (1.4-6.5) K/uL Lymph # (Auto) (1.2-3.4) K/uL [place] # (Auto) (0.24-0.82) K/uL Eos # (Auto) (0-0.50) K/uL Baso # (Auto) (0-0.2) K/uL Immature Gran # (Auto) (0.00-0.02) K/uL PT (9.0-12.0) Seconds INR (0.9-1.1) APTT (21.0-31.0) Seconds PTT Ratio Sodium (136-145) mmol/L Potassium (3.5-5.1) mmol/L Chloride (98-107) mmol/L Carbon Dioxide (21-32) mmol/L Anion Gap (3-11) BUN (6-23) mg/dl Creatinine (0.6-1.4) mg/dl Est Cr Clr Drug Dosing ml/min Est GFR ( Amer) ml/min Est GFR (Non-Af Amer) ml/min BUN/Creatinine Ratio (10-20) Glucose (70-99(Fasting)) mg/dl Estimat Average Glucose mg/dl Hemoglobin A1c (4.5-5.6) % Calcium (8.5-10.1) mg/dl Magnesium 1.7 (1.7-2.4) mg/dl Total Bilirubin (0.2-1.0) mg/dl AST (13-39) U/L ALT (7-52) U/L Alkaline Phosphatase (34-104) U/L Troponin I High Sens 20.3 H (0-20) pg/ml Total Protein (6.0-8.3) gm/dl Albumin (3.4-5.0) gm/dl Globulin (2.5-4.0) gm/dl Albumin/Globulin Ratio (0.9-2) Lipase (11-82) U/L SARS-CoV-2, RNA, NAAT (NEGATIVE) Administered Medications Aspirin (Aspirin 81 Mg Ectab) 81 mg PO QAM KARLO Stop: 02/01/22 05:54 Last Admin: 01/02/22 06:16 Dose: 81 mg Documented By: JUDY Enoxaparin Sodium (Enoxaparin Inj 40 Mg/0.4 Ml Syr) 40 mg SQ QAM KARLO Stop: 02/01/22 08:59 Last Admin: 01/02/22 09:05 Dose: 40 mg Documented By: ROMEO Gabapentin (Gabapentin 300 Mg Cap) 300 mg PO TID KARLO Stop: 02/01/22 08:59 Last Admin: 01/02/22 09:09 Dose: Not Given Documented By: ROMEO Insulin Aspart (Insulin Aspart Per Unit) 0 units SC ACHS KARLO Stop: 02/01/22 02:35 Last Admin: 01/02/22 08:25 Dose: 1 units Documented By: ROMEO Co-signed By: IDALIA Admin: 01/02/22 03:07 Dose: Not Given Documented By: JUDY Insulin Glargine (Lantus Per Unit Charge) 5 units SQ DAILY KARLO Stop: 02/01/22 08:59 Last Admin: 01/02/22 08:29 Dose: 5 units Documented By: ROMEO Co-signed By: IDALIA Losartan Potassium (Losartan Potassium 50 Mg Tab) 50 mg PO QAM KARLO Stop: 02/01/22 05:54 Last Admin: 01/02/22 06:16 Dose: 50 mg Documented By: JUDY Metoprolol Tartrate (Metoprolol Tartrate 25 Mg Tab) 12.5 mg PO BID KARLO Stop: 02/01/22 08:59 Last Admin: 01/02/22 09:10 Dose: 12.5 mg Documented By: ROMEO Oxycodone HCl (Oxycodone Hcl Ir 5 Mg Tab (Immediate Release)) 5 - 10 mg PO QID PRN PRN Reason: Pain Stop: 01/16/22 00:54 Last Admin: 01/02/22 08:30 Dose: 10 mg Documented By: Admin: 01/02/22 01:05 Dose: 10 mg Documented By: GABRIELLE Trazodone HCl (Trazodone Hcl 100 Mg Tab) 100 mg PO HS KARLO Stop: 02/01/22 02:35 Last Admin: 01/02/22 03:12 Dose: 100 mg Documented By: [place] Discontinued Medications Acetaminophen (Acetaminophen 325 Mg Tab) 650 mg PO NOW STA Stop: 01/01/22 23:24 Last Admin: 01/01/22 23:54 Dose: 650 mg Documented By: GABRIELLE Furosemide (Furosemide 40 Mg/4 Ml Vial) 40 mg IV ONE ONE Stop: 01/01/22 21:17 Last Admin: 01/01/22 21:27 Dose: 40 mg Documented By: KT Furosemide (Furosemide 40 Mg/4 Ml Vial) 40 mg IV ONE ONE Stop: 01/02/22 08:01 Last Admin: 01/02/22 09:04 Dose: 40 mg Documented By: ROMEO Ioversol (Optiray 300 500ml) 108 ml IV ONCE ONE Stop: 01/01/22 20:29 Last Admin: 01/01/22 20:29 Dose: 108 ml Documented By: AL[place] Metoprolol Tartrate (Metoprolol Tartrate 25 Mg Tab) 25 mg PO NOW STA Stop: 01/01/22 23:24 Last Admin: 01/01/22 23:54 Dose: 25 mg Documented By: GABRIELLE Nitroglycerin (Nitroglycerin Sl 0.4 Mg/Tab Tab) 0.4 mg SL NOW STA Stop: 01/02/22 00:55 Last Admin: 01/02/22 01:06 Dose: 0.4 mg Documented By: GABRIELLE Oxycodone HCl (Oxycodone Hcl Ir 5 Mg Tab (Immediate Release)) 10 mg PO NOW STA Stop: 01/01/22 21:20 Last Admin: 01/01/22 21:26 Dose: 10 mg Documented By: [place] Perflutren Lipid Microsphere (Perflutren Lipid Microsphere (Definity)) 2 ml IV ONCE ONE Stop: 01/02/22 08:21 Last Admin: 01/02/22 08:20 Dose: 2 ml Documented By: ROMEO Imaging Data Radiologist's Impression: Chest X-Ray 01/01/22 17:27 XR chest 1V portable HISTORY: 71 years-old Male Chest Pain acute chest pain COMPARISON: CTA chest of same day TECHNIQUE: AP view of the chest FINDINGS: Cardiomegaly with mild pulmonary edema and trace pleural effusions. No pneumothorax. Healed chronic right-sided rib fractures. Degenerative changes of the shoulders and spine. IMPRESSION: Cardiomegaly with pulmonary edema and trace pleural effusions. ACT 112: Negative or not required by law. The above report was generated using voice recognition software. It may contain grammatical, syntax or spelling errors. Electronically signed by: Louis Johnson M.D. 01/01/2022 9:27 PM Chest CTA 01/01/22 17:28 CT angio chest PE protocol CT DOSE: 498.41 mGy.cm HISTORY: 71 years-old Male with Left CP, SOB, eval for PE. Acute left-sided chest pain with shortness of breath TECHNIQUE: Multiple CTA images of the chest were obtained after the intravenous administration of 108 ml Optiray. Coronal and sagittal MIPS were obtained from the axial data set and were submitted for review. All measurements were obtained according to NASCET criteria. A dose lowering technique was utilized adhering to the principles of ALARA. COMPARISON: CTA chest 08/22/2019 FINDINGS: CTA: Moderate cardiac enlargement. Moderate coronary artery calcifications. No pericardial effusion. No thoracic aortic aneurysm or dissection. There is patency of the imaged great vessels. Unremarkable pulmonary artery. No pulmonary emboli are identified. CT CHEST: No thyroid nodule. Mildly enlarged mediastinal and hilar lymph nodes include hilar lymph nodes measuring up to 1.4 cm on the right, previously 11 mm. Chronic pleural thickening with pleural calcifications. Trace pleural effusions are also present. No pneumothorax. Intralobular septal thickening with bilateral groundglass densities and subpleural predominant reticulation. Scattered bilateral subcentimeter solid pulmonary nodules measuring up to 9 mm within the right lower lobe appears stable from the prior study. No new or enlarging pulmonary nodules are identified. Cholecystectomy. Spleen is prominent in size. Suggestion of mild hepatic steatosis. Trace fluid posterior to the right hepatic lobe. Prominent subcentimeter upper abdominal lymph nodes. Gynecomastia. No acute fracture identified. IMPRESSION: 1. Cardiomegaly with mild pulmonary edema and trace pleural effusions. No pul monary emboli. 2. Chronic pleural thickening with pleural calcifications and subpleural nodules. 3. Subcentimeter bilateral solid pulmonary nodules appear stable from the prior study measuring up to 9 mm. 4. Nonspecific mediastinal and hilar lymphadenopathy. ACT 112: Negative or not required by law. The above report was generated using voice recognition software. It may contain grammatical, syntax or spelling errors. Electronically signed by: Louis Johnson M.D. 01/01/2022 9:[address] 01/01/22 23:26 CT OF THE HEAD WITHOUT CONTRAST CLINICAL HISTORY: Headache. COMPARISON STUDY: Head CT September 30, 2010. CT DOSE: 614.27 mGy.cm TECHNIQUE: Helical axial images of the head were obtained without IV contrast. Automated exposure control was utilized for the study. A dose lowering technique was utilized adhering to the principles of ALARA. FINDINGS: Note is made of intravascular contrast from recent contrast-enhanced chest CT. White matter hypodensity suggests small vessel disease. No acute intracranial hemorrhage, midline shift or mass effect is present. The ventricular system is unremarkable. The basal cisterns are patent. No extra- axial collections are present. There are no findings to suggest acute dural sinus thrombosis or acute territorial infarct. No significant calvarial abnormalities are present. Visualized portions of the sinuses and mastoid air cells are clear. IMPRESSION: No acute intracranial findings. ACT 112: Negative or not required by law. Electronically signed by: Nemesio Gtz M.D. 01/02/2022 7:10 AM Discharge Plan Visit Data Chief Complaint: Shortness of Breath/Dyspnea Stated Complaint: TROUBLE BREATHING, BACK PAIN, ED Provider: Do Cabrera Patient Disposition: Admitted As Inpatient Discharge Instructions Interventions: ED Discharge Assessment Last Done: 01/02/22 02:18
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
[2022-01-02] MEDS: oxyCODONE HCL IR 5 MG TAB (IMMEDIATE RELEASE) PO SCH ×3 (14:34→20:33)
[2022-01-02] MEDS ORDERED: oxyCODONE HCL IR 5 MG TAB (IMMEDIATE RELEASE) PO PRN (16:00)
--- NOTE | 2022-01-02 16:23 | Electrocardiogram Report ---
Test Reason : Blood Pressure : / mmHG Vent. Rate : 075 BPM Atrial Rate : 075 BPM P-R Int : 170 ms QRS Dur : 098 ms QT Int : 410 ms P-R-T Axes : 009 -16 016 degrees QTc Int : 457 ms Normal sinus rhythm Moderate voltage criteria for LVH, may be normal variant Nonspecific ST abnormality Abnormal ECG When compared with ECG of 22-AUG-2019 21:24, No significant change was found Confirmed by Jackson Correa ([id number]) on 01/02/2022 4:23:24 PM Referred By: Jerzy Glez Confirmed By:Jackson Correa
[2022-01-03 06:17] LABS: Hematocrit (blood only) 37.7 % (40.1-51.0); Hemoglobin 13.2 g/dl (14.0-18.0); Mean Corpuscular Hemoglobin 33.4 pg (25.0-34.0); Mean Corpuscular Volume 95.4 fL (80.0-100.0); Platelet Count 205 K/uL (130-400); RDW Coefficient of Variation 14.6 % (11.5-14.5); RDW Standard Deviation 51.4 fL (36.4-46.3); Red Blood Count 3.95 M/uL (4.63-6.08); White Blood Count 10.96 K/ul (4.8-10.8)
[2022-01-03 06:42] LABS: BUN Creatinine Ratio 17.4 (10-20); Calcium 8.5 mg/dl (8.5-10.1); Chol HDL Ratio 4.1 (0-5); Creatinine Clr Calc Pharmacy 50.7 ml/min; Est GFR (African American) 53.2 ml/min; Est GFR (Non-African American) 45.9 ml/min; Potassium 4.1 mmol/L (3.5-5.1)
[2022-01-03] MEDS: METOPROLOL TARTRATE 25 MG TAB PO SCH (08:24)
[2022-01-03] MEDS: oxyCODONE HCL IR 5 MG TAB (IMMEDIATE RELEASE) PO SCH ×4 (08:24→20:24)
[2022-01-03] MEDS: ASPIRIN 81 MG ECTAB PO SCH (08:24)
[2022-01-03] MEDS: LOSARTAN POTASSIUM 50 MG TAB PO SCH (08:24)
[2022-01-03] MEDS: ENOXAPARIN INJ 40 MG/0.4 ML SYR SQ SCH (08:25)
[2022-01-03] MEDS: INSULIN ASPART PER UNIT SC SCH ×4 (08:26→20:20)
--- NOTE | 2022-01-03 11:42 | Cardiology Progress Note ---
Date of Service January 03, 2022 Assessment & Plan (1) Acute decompensated heart failure: (2) Hypertensive urgency: Plan The patient had an increase in creatinine most likely due to the diuretics as well as chronic underlying kidney disease from diabetes and hypertension. I agree with holding the Lasix and losartan today. Recheck labs in the morning. If there is improvement in the creatinine that I would restart the losartan. He will also have to be discharged home on a diuretic, either reduced dose of a loop diuretic or hydrochlorothiazide. Admission and Anticipated Discharge Date Admission Date: January 02, 2022 Subjective The patient is comfortable and has no new cardiac complaints today. Review of Systems Review of Systems: Review of Systems: See HPI for pertinent positives. All other 10 point review of systems are negative. Physical Exam Physical Exam: General: no acute distress and stated age Head: normocephalic, no masses, lesions, tenderness or abnormalities Eyes: conjunctiva are pink and non-injected, sclera clear Neck: supple, no adenopathy, no bruits, normal jugular venous pulse, no hepatojugular reflux Chest: normal shape and normal respiratory effort Lungs: clear to auscultation and percussion Cardiac Exam: - regular rate & rhythm, no murmurs gallops or rubs - normal S1, normal S2 Pulses: 2(+) throughout Abdomen: abdomen soft, non-tender, no abnormal masses and no hepatosplenomegaly Musculoskeletal: no gait disturbance, no joint inflammation, no deforming arthritis Extremities: no edema and no cyanosis Neuro: grossly normal exam Results & Data ([facility]) Vital Signs (Past 12 Hours) Vital Signs Temp Pulse Pulse Resp BP Pulse Ox Pulse Ox 01/03/22 10:39 61 01/03/22 08:00 94 01/03/22 07:46 36.8 C 65 17 145/71 H 94 01/03/22 02:57 36.9 C 62 16 135/57 L 92 01/02/22 23:43 36.8 C 56 L 16 111/51 L 95 O2 Del Method O2 Del Method 01/03/22 10:39 01/03/22 08:00 Room Air 01/03/22 07:46 Room Air 01/03/22 02:57 Room Air 01/02/22 23:43 Laboratory Results Laboratory Results - last 24 hr 01/02/22 01/02/22 01/03/22 16:02 20:17 06:00 WBC RBC Hgb Hct MCV MCH MCHC RDW Std Deviation RDW Coeff of Marjorie Plt Count MPV Sodium 130 L Potassium 4.1 Chloride 100 Carbon Dioxide 26 Anion Gap 4 BUN 26 H Creatinine 1.49 H Est Cr Clr Drug Dosing 50.7 Est GFR ( Amer) 53.2 Est GFR (Non-Af Amer) 45.9 BUN/Creatinine Ratio 17.4 Glucose 109 H POC Glucose 107 H 112 H Calcium 8.5 Triglycerides 103 Cholesterol 165 LDL Cholesterol, Calc 104 VLDL Cholesterol, Calc 21 HDL Cholesterol 40 Cholesterol/HDL Ratio 4.1 01/03/22 01/03/22 01/03/22 06:00 07:07 11:29 WBC 10.96 H RBC 3.95 L Hgb 13.2 L Hct 37.7 L MCV 95.4 MCH 33.4 MCHC 35.0 RDW Std Deviation 51.4 H RDW Coeff of Marjorie 14.6 H Plt Count 205 MPV 11.0 Sodium Potassium Chloride Carbon Dioxide Anion Gap BUN Creatinine Est Cr Clr Drug Dosing Est GFR ( Amer) Est GFR (Non-Af Amer) BUN/Creatinine Ratio Glucose POC Glucose 99 167 H Calcium Triglycerides Cholesterol LDL Cholesterol, Calc VLDL Cholesterol, Calc HDL Cholesterol Cholesterol/HDL Ratio Medications Administered Current Inpatient Medications Acetaminophen (Acetaminophen 325 Mg Tab) 650 mg PO Q4H PRN PRN Reason: Pain or Fever Stop: 02/01/22 02:35 Aspirin (Aspirin 81 Mg Ectab) 81 mg PO QAM [facility] Stop: 02/01/22 05:54 Last Admin: 01/03/22 08:24 Dose: 81 mg Dextrose (Dextrose 50% 50 Ml Syringe) 25 - 50 ml IV UD PRN; Protocol PRN Reason: Hypoglycemia Protocol Stop: 02/01/22 02:35 Enoxaparin Sodium (Enoxaparin Inj 40 Mg/0.4 Ml Syr) 40 mg SQ QAM [facility] Stop: 02/01/22 08:59 Last Admin: 01/03/22 08:25 Dose: 40 mg Glucagon (Glucagon For Inj 1 Mg Vial) 1 mg SQ UD PRN; Protocol PRN Reason: Hypoglycemia Protocol Stop: 02/01/22 02:35 Glucose (Glucose 40% Gel 15 Gm Tube) 15 - 30 gm PO UD PRN; Protocol PRN Reason: Hypoglycemia Protocol Stop: 02/01/22 02:35 Glucose (Glucose 10 Tab/Tube) 4 - 8 tab PO UD PRN; Protocol PRN Reason: Hypoglycemia Treatment Stop: 02/01/22 02:35 Promethazine HCl 12.5 mg/ (Sodium Chloride) 50.5 mls @ 202 mls/hr IV Q6H PRN PRN Reason: Nausea And Vomiting Stop: 02/01/22 02:35 Insulin Aspart (Insulin Aspart Per Unit) 0 units SC ACHS [facility] Stop: 02/01/22 02:35 Last Admin: 01/03/22 08:26 Dose: Not Given Losartan Potassium (Losartan Potassium 50 Mg Tab) 50 mg PO QAM [facility] Stop: 02/01/22 05:54 Last Admin: 01/03/22 08:24 Dose: 50 mg Metoprolol Succinate (Metoprolol Succ 25mg Ext Rel Tab) 25 mg PO QAM [facility] Stop: 02/03/22 08:59 Miscellaneous (Carbohydrates For Hypoglycemia ) 15 - 30 gm PO UD PRN PRN Reason: Hypoglycemia Protocol Stop: 02/01/22 02:35 Oxycodone HCl (Oxycodone Hcl Ir 5 Mg Tab (Immediate Release)) 10 mg PO DAILY@08,, [facility] Stop: 01/16/22 14:29 Last Admin: 01/03/22 08:24 Dose: 10 mg Trazodone HCl (Trazodone Hcl 100 Mg Tab) 100 mg PO [facility] Stop: 02/01/22 02:35 Last Admin: 01/02/22 21:15 Dose: 100 mg
[2022-01-03 16:44] LABS: Anion Gap 7.2 (3-11)
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
[2022-01-03] MEDS: traZODone HCL 100 MG TAB PO SCH (21:18)
[2022-01-03] MEDS ORDERED: METOPROLOL TARTRATE 25 MG TAB PO STA (22:08)
[2022-01-03] MEDS ORDERED: MAGNESIUM SULFATE / D5W 1 GM/100 ML BAG IV ONE (22:09)
[2022-01-04 03:15] LABS: Basophils # (auto) 0.08 K/uL (0-0.2); Basophils % (auto) 0.7 %; Eosinophils # (auto) 0.51 K/uL (0-0.50); Eosinophils % (auto) 4.7 %; Hematocrit (blood only) 35.8 % (40.1-51.0); Hemoglobin 12.4 g/dl (14.0-18.0); Immature Granulocytes # (auto) 0.03 K/uL (0.00-0.02); Immature Granulocytes % (auto) 0.3 %; Lymphocytes # (auto) 3.67 K/uL (1.2-3.4); Lymphocytes % (auto) 34.1 %; Mean Corpuscular Hemoglobin 33.5 pg (25.0-34.0); Mean Corpuscular Hgb Conc 34.6 g/dL (32.0-36.0); Mean Corpuscular Volume 96.8 fL (80.0-100.0); Mean Platelet Volume 11.4 fL (9.4-12.4); Monocytes # (auto) 0.92 K/uL (0.24-0.82); Monocytes % (auto) 8.5 %; Neutrophils # (auto) 5.56 K/uL (1.4-6.5); Neutrophils % (auto) 51.7 %; Platelet Count 199 K/uL (130-400); RDW Coefficient of Variation 14.5 % (11.5-14.5); RDW Standard Deviation 50.7 fL (36.4-46.3); White Blood Count 10.77 K/ul (4.8-10.8)
[2022-01-04 03:41] LABS: BUN Creatinine Ratio 20.4 (10-20); Calcium 8.2 mg/dl (8.5-10.1); Creatinine Clr Calc Pharmacy 51.4 ml/min; Est GFR (African American) 54.1 ml/min; Est GFR (Non-African American) 46.7 ml/min; Magnesium 2.2 mg/dl (1.7-2.4)
[2022-01-04] MEDS ORDERED: ALBUMIN 25% 100 mL 25 GM/100 ML VIAL IV ONE (04:13)
--- NOTE | 2022-01-04 05:43 | Electrocardiogram Report ---
Test Reason : Blood Pressure : / mmHG Vent. Rate : 062 BPM Atrial Rate : 062 BPM P-R Int : 182 ms QRS Dur : 098 ms QT Int : 454 ms P-R-T Axes : 011 -19 004 degrees QTc Int : 460 ms Normal sinus rhythm Incomplete right bundle branch block Minimal voltage criteria for LVH, may be normal variant Borderline ECG When compared with ECG of 01-JAN-2022 19:14, No significant change was found Confirmed by Ulisses Su ([id number] on 01/04/2022 5:43:09 AM Referred By: Jerzy Glez Confirmed By:Ulisses Su
[2022-01-04] MEDS: INSULIN ASPART PER UNIT SC SCH ×2 (08:09→12:18)
[2022-01-04] MEDS: oxyCODONE HCL IR 5 MG TAB (IMMEDIATE RELEASE) PO SCH ×2 (08:09→12:40)
[2022-01-04] MEDS: ASPIRIN 81 MG ECTAB PO SCH (08:10)
[2022-01-04] MEDS: ENOXAPARIN INJ 40 MG/0.4 ML SYR SQ SCH (08:10)
[2022-01-04] MEDS ORDERED: METOPROLOL SUCC 25MG EXT REL TAB PO SCH (09:00)
--- NOTE | 2022-01-04 09:01 | Cardiology Progress Note ---
Date of Service January 04, 2022 Assessment & Plan (1) Acute decompensated heart failure: (2) Hypertensive urgency: Plan The patient's creatinine is most likely at baseline. He probably has diabetic kidney disease. I restarted his losartan today. I think he is clinically stable and can be discharged to outpatient follow-up. I think he would best be treated with either a low-dose of the loop diuretic such as Lasix 20 mg every other day or HCTZ 12.5 mg daily. He should have a BMP after being discharged. I will arrange follow-up with our clinic. Admission and Anticipated Discharge Date Admission Date: January 02, 2022 Subjective The patient is resting comfortably. No current cardiac complaints. Review of Systems Review of Systems: Review of Systems: See HPI for pertinent positives. All other 10 point review of systems are negative. Physical Exam Physical Exam: General: no acute distress and stated age Head: normocephalic, no masses, lesions, tenderness or abnormalities Eyes: conjunctiva are pink and non-injected, sclera clear Neck: supple, no adenopathy, no bruits, normal jugular venous pulse, no hepatojugular reflux Chest: normal shape and normal respiratory effort Lungs: clear to auscultation and percussion Cardiac Exam: - regular rate & rhythm, no murmurs gallops or rubs - normal S1, normal S2 Pulses: 2(+) throughout Abdomen: abdomen soft, non-tender, no abnormal masses and no hepatosplenomegaly Musculoskeletal: no gait disturbance, no joint inflammation, no deforming arthritis Extremities: no edema and no cyanosis Neuro: grossly normal exam Results & Data ([facility]) Vital Signs (Past 12 Hours) Vital Signs Temp Pulse Pulse Resp BP Pulse Ox Pulse Ox 01/04/22 08:03 55 L 01/04/22 08:00 94 01/04/22 07:10 36.7 C 58 L 18 151/66 H 93 01/04/22 00:00 62 01/04/22 04:00 36.5 C 55 L 18 121/55 L 92 01/04/22 02:00 95 01/04/22 00:00 95 01/03/22 23:59 161/75 H 01/03/22 22:55 36.9 C 68 20 170/73 H 93 O2 Del Method O2 Del Method 01/04/22 08:03 01/04/22 08:00 Room Air 01/04/22 07:10 Room Air 01/04/22 00:00 01/04/22 04:00 Room Air 01/04/22 02:00 Room Air 01/04/22 00:00 Room Air 01/03/22 23:59 01/03/22 22:55 Room Air Laboratory Results Laboratory Results - last 24 hr 01/03/22 01/03/22 01/03/22 06:00 06:06 11:29 WBC RBC Hgb Hct MCV MCH MCHC RDW Std Deviation RDW Coeff of Marjorie Plt Count MPV Immature Gran % (Auto) Neut % (Auto) Lymph % (Auto) [place] % (Auto) Eos % (Auto) Baso % (Auto) Neut # (Auto) Lymph # (Auto) [place] # (Auto) Eos # (Auto) Baso # (Auto) Immature Gran # (Auto) Sodium 137 Potassium Chloride Carbon Dioxide Anion Gap 7.2 BUN Creatinine Est Cr Clr Drug Dosing Est GFR ( Amer) Est GFR (Non-Af Amer) BUN/Creatinine Ratio Glucose POC Glucose 167 H Calcium Magnesium 1.9 01/03/22 01/03/22 01/04/22 16:08 20:16 02:49 WBC 10.77 RBC 3.70 L Hgb 12.4 L Hct 35.8 L MCV 96.8 MCH 33.5 MCHC 34.6 RDW Std Deviation 50.7 H RDW Coeff of Marjorie 14.5 Plt Count 199 MPV 11.4 Immature Gran % (Auto) 0.3 Neut % (Auto) 51.7 Lymph % (Auto) 34.1 [place] % (Auto) 8.5 Eos % (Auto) 4.7 Baso % (Auto) 0.7 Neut # (Auto) 5.56 Lymph # (Auto) 3.67 H [place] # (Auto) 0.92 H Eos # (Auto) 0.51 H Baso # (Auto) 0.08 Immature Gran # (Auto) 0.03 H Sodium Potassium Chloride Carbon Dioxide Anion Gap BUN Creatinine Est Cr Clr Drug Dosing Est GFR ( Amer) Est GFR (Non-Af Amer) BUN/Creatinine Ratio Glucose POC Glucose 129 H 115 H Calcium Magnesium 01/04/22 01/04/22 02:49 07:38 WBC RBC Hgb Hct MCV MCH MCHC RDW Std Deviation RDW Coeff of Marjorie Plt Count MPV Immature Gran % (Auto) Neut % (Auto) Lymph % (Auto) [place] % (Auto) Eos % (Auto) Baso % (Auto) Neut # (Auto) Lymph # (Auto) [place] # (Auto) Eos # (Auto) Baso # (Auto) Immature Gran # (Auto) Sodium 135 L Potassium 4.0 Chloride 103 Carbon Dioxide 27 Anion Gap 5 BUN 30 H Creatinine 1.47 H Est Cr Clr Drug Dosing 51.4 Est GFR ( Amer) 54.1 Est GFR (Non-Af Amer) 46.7 BUN/Creatinine Ratio 20.4 H Glucose 106 H POC Glucose 99 Calcium 8.2 L Magnesium 2.2 Medications Administered Current Inpatient Medications Acetaminophen (Acetaminophen 325 Mg Tab) 650 mg PO Q4H PRN PRN Reason: Pain or Fever Stop: 02/01/22 02:35 Aspirin (Aspirin 81 Mg Ectab) 81 mg PO QAM [facility] Stop: 02/01/22 05:54 Last Admin: 01/04/22 08:10 Dose: 81 mg Dextrose (Dextrose 50% 50 Ml Syringe) 25 - 50 ml IV UD PRN; Protocol PRN Reason: Hypoglycemia Protocol Stop: 02/01/22 02:35 Enoxaparin Sodium (Enoxaparin Inj 40 Mg/0.4 Ml Syr) [facility] [place]: 02/01/22 08:59 Last Admin: 01/04/22 08:10 Dose: 40 mg Glucagon (Glucagon For Inj 1 Mg Vial) 1 mg SQ UD PRN; Protocol PRN Reason: Hypoglycemia Protocol Stop: 02/01/22 02:35 Glucose (Glucose 40% Gel 15 Gm Tube) 15 - 30 gm PO UD PRN; Protocol PRN Reason: Hypoglycemia Protocol Stop: 02/01/22 02:35 Glucose (Glucose 10 Tab/Tube) 4 - 8 tab PO UD PRN; Protocol PRN Reason: Hypoglycemia Treatment Stop: 02/01/22 02:35 Promethazine HCl 12.5 mg/ (Sodium Chloride) 50.5 mls @ 202 mls/hr IV Q6H PRN PRN Reason: Nausea And Vomiting Stop: 02/01/22 02:35 Insulin Aspart (Insulin Aspart Per Unit) 0 units SC ACHS [facility] Stop: 02/01/22 02:35 Last Admin: 01/04/22 08:09 Dose: Not Given Losartan Potassium (Losartan Potassium 50 Mg Tab) 50 mg PO QAM [facility] Stop: 02/01/22 05:54 Last Admin: 01/03/22 08:24 Dose: 50 mg Metoprolol Succinate (Metoprolol Succ 25mg Ext Rel Tab) 25 mg PO QAM [facility] Stop: 02/03/22 08:59 Last Admin: 01/04/22 08:09 Dose: 25 mg Miscellaneous (Carbohydrates For Hypoglycemia ) 15 - 30 gm PO UD PRN PRN Reason: Hypoglycemia Protocol Stop: 02/01/22 02:35 Oxycodone HCl (Oxycodone Hcl Ir 5 Mg Tab (Immediate Release)) 10 mg PO DAILY@08,12,16,1999 [facility] Stop: 01/16/22 14:29 Last Admin: 01/04/22 08:09 Dose: 10 mg Trazodone HCl (Trazodone Hcl 100 Mg Tab) 100 mg PO [facility] Stop: 02/01/22 02:35 Last Admin: 01/03/22 21:18 Dose: 100 mg
[2022-01-04] MEDS: LOSARTAN POTASSIUM 50 MG TAB PO SCH (10:23)
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
== END 2022-01-04 15:18 | disposition home or self-care (01) | DRG 291 ==
LOC: ED 16:24 → 2S 01-02 01:30 → SUATTDRO 01-02 01:30 → 2S 01-02 02:18
DX: K74.60 Unspecified cirrhosis of liver; N18.30 Chronic kidney disease, stage 3 unspecified; Z83.3 Family history of diabetes mellitus; E11.22 Type 2 diabetes mellitus with diabetic chronic kidney disease; I50.31 Acute diastolic (congestive) heart failure; Z87.891 Personal history of nicotine dependence; Z79.84 Long term (current) use of oral hypoglycemic drugs; V23.9 Unspecified motorcycle rider injured in collision with car, pick-up truck or van in traffic accident; I13.0 Hypertensive heart and chronic kidney disease with heart failure and stage 1 through stage 4 chronic kidney disease, or unspecified chronic kidney disease; F11.20 Opioid dependence, uncomplicated; D64.9 Anemia, unspecified; M54.9 Dorsalgia, unspecified; Z91.14 Patient's other noncompliance with medication regimen; I16.0 Hypertensive urgency

== ENCOUNTER 2022-01-16 21:00 | Inpatient (IN) ==
[2022-01-16 21:39] LABS: Basophils # (auto) 0.07 K/uL (0-0.2); Basophils % (auto) 0.6 %; Eosinophils % (auto) 3.5 %; Hemoglobin 12.9 g/dl (14.0-18.0); Immature Granulocytes # (auto) 0.02 K/uL (0.00-0.02); Immature Granulocytes % (auto) 0.2 %; Lymphocytes # (auto) 3.17 K/uL (1.2-3.4); Mean Corpuscular Hgb Conc 33.9 g/dL (32.0-36.0); Mean Corpuscular Volume 97.2 fL (80.0-100.0); Mean Platelet Volume 11.7 fL (9.4-12.4); Monocytes # (auto) 0.76 K/uL (0.24-0.82); Monocytes % (auto) 6.7 %; Neutrophils # (auto) 6.92 K/uL (1.4-6.5); Platelet Count 206 K/uL (130-400); RDW Coefficient of Variation 14.4 % (11.5-14.5); RDW Standard Deviation 51.7 fL (36.4-46.3); Red Blood Count 3.91 M/uL (4.63-6.08); White Blood Count 11.34 K/ul (4.8-10.8)
[2022-01-16 21:53] LABS: INR 1.1 (0.9-1.1); Partial Thromboplastin Time 27.6 Seconds (21.0-31.0); Prothrombin Time 11.4 Seconds (9.0-12.0)
[2022-01-16 22:03] LABS: Albumin Globulin Ratio 0.7 (0.9-2); Albumin Level 3.3 gm/dl (3.4-5.0); BUN Creatinine Ratio 17.1 (10-20); Bilirubin,Total 1.1 mg/dl (0.2-1.0); Calcium 9.1 mg/dl (8.5-10.1); Creatinine Clr Calc Pharmacy 50.4 ml/min; Est GFR (African American) 51.9 ml/min; Est GFR (Non-African American) 44.8 ml/min; Globulin 4.7 gm/dl (2.5-4.0); Magnesium 1.6 mg/dl (1.7-2.4); Potassium 4.3 mmol/L (3.5-5.1)
[2022-01-16 22:06] LABS: Troponin I High Sensitivity 13.3 pg/ml (0-20)
--- NOTE | 2022-01-16 22:21 | XRay Report ---
XR chest 1V portable CLINICAL HISTORY: SOB TECHNIQUE: Single frontal radiograph of the chest was obtained. Comparison: Comparison is made to chest radiograph 01/01/2022 FINDINGS: No lines and tubes are seen. Cardiomegaly is noted. Prominence and cephalization of the vasculature i s seen. No evidence of pleural effusion or pneumothorax. Old healed rib fractures are seen. IMPRESSION: Cardiomegaly with mild pulmonary edema. ACT 112: Negative or not required by law. Electronically signed by: Alexis Rice M.D. 01/16/2022 10:20 PM
[2022-01-16] MEDS ORDERED: NITROGLYCERIN 2% OINTMENT 30GM TUBE EXT ONE (22:35)
[2022-01-16] MEDS ORDERED: ALBUT/IPRATROP 3MG/0.5MG NEB 3 ML VIAL NEB STA (22:35)
[2022-01-16] MEDS ORDERED: FUROSEMIDE 40 MG/4 ML VIAL IV ONE (22:35)
[2022-01-16] MEDS: MAGNESIUM SULFATE / D5W 1 GM/100 ML BAG IV SCH ×2 (22:51→23:59)
[2022-01-16] MEDS ORDERED: amLODIPine BESYLATE 5 MG TAB PO STA (23:14)
--- NOTE | 2022-01-16 23:45 | Emergency Department Note ---
ED Visit Note I was consulted by the Advanced Practice Provider Hoa Kay PA-C. I saw the patient personally and performed a substantive portion of the visit. This includes aspects of the HPI, MDM, diagnostic interpretations, and disposition/plan. Patient was admitted for volume overload. .
[2022-01-17] MEDS ORDERED: oxyCODONE HCL IR 5 MG TAB (IMMEDIATE RELEASE) PO STA (00:03)
--- NOTE | 2022-01-17 00:03 | Emergency Department Note ---
History of Present Illness General Chief complaint: Shortness of Breath/Dyspnea Stated complaint: CHF, FILLING WITH FLUID, SOB, Time Seen by Provider: 01/16/22 22:30 History of Present Illness Maximum Pain Intensity: 8 This 71-year-old presents to the ER complaining of chest pain and shortness of breath who feels like he is back in heart failure again Location: Chest Quality: Hard to breathe Severity: Moderate Duration: Past few days Timing: Started few days ago Context: Patient was concerned and came in Modifying factors: better with rest; worse with activity Patient denies fevers, vomiting, vomiting, diarrhea. He is concerned he is back in heart failure. Home Medications Medication Instructions Recorded Confirmed Type metformin 500 mg tablet 500 mg PO BIDM 08/22/19 01/17/22 History losartan 50 mg tablet 50 mg PO QAM 01/02/22 01/17/22 History oxycodone 10 mg tablet 10 mg PO QID 01/02/22 01/17/22 History trazodone 100 mg tablet 100 mg PO HS 01/02/22 01/17/22 History furosemide 20 mg tablet 20 mg PO MOWEFR #30 tabs 01/04/22 01/17/22 Rx metoprolol succinate 25 mg 25 mg PO QAM 30 days #30 tabs 01/04/22 01/17/22 Rx tablet,extended release 24 hr Allergies Allergy/AdvReac Type Severity Reaction Status Date / Time No Known Allergies Allergy Verified 01/02/22 00:49 Past Med/Surg History Medical History Cirrhosis CKD (chronic kidney disease), stage III DMII (diabetes mellitus, type 2) H/O endocarditis Multiple rib fractures Opioid type dependence, unspecified Rib pain (09/10/10) Subacute bacterial endocarditis (09/24/10) Surgical History History of cholecystectomy Previous back surgery Social History Smoking Status: Former smoker Hx Alcohol Use: No Hx Substance Use: No Preferred Language: Kiswahili Communication Ability: Effective 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 Beliefs That Will Affect Care: None Current Living Situation: Spouse Feels Safe at Home: Yes Assistive Devices: Denture - Upper Review of Systems A total of 10 systems reviewed and were otherwise negative Physical Exam Vital Signs Vital Signs - 24 hr 01/16/22 21:12 01/16/22 22:55 01/16/22 23:57 Temperature 37.0 C Temperature Source Temporal Artery Scan Pulse Rate 45 L 77 Respiratory Rate 20 18 Blood Pressure 176/64 H Blood Pressure Mean 101 Pulse Oximetry 93 94 93 Oxygen Delivery Method Room Air Room Air Room Air Sepsis Recent Fever Within 48 Hours No Sepsis New/Unexplained Change in Mental Status N/A Sepsis Action Taken by Nursing No Action Required VITALS: Vitals are noted on the nurse's note and reviewed by myself. Vital signs pulse ox 93% on room air. GENERAL: Elderly male working to breathe, in moderate acute distress, nondiaphoretic, SKIN: The skin was without rashes, erythema, or bruising. There is no tenting of the skin. Capillary reflex less than 2 seconds. HEAD: Normocephalic atraumatic. EARS: External auditory canals clear, EYES: Pupils equal round and reactive to light and accommodation. Conjunctivae without injection, sclerae without icterus. Extraocular movements intact. NOSE: Patent, turbinates without inflammation or discharge. MOUTH: Mucous membranes moist. Pharynx without erythema or exudate. Uvula midline. Airway patent. Tongue does not deviate. NECK: Supple without nuchal rigidity. No lymphadenopathy. No thyromegaly. Cervical spine is nontender. No JVD. HEART: Regular rate and rhythm LUNGS: Bibasilar rales. No retractions or accessory muscle use. ABDOMEN: Positive bowel sounds x 4. Normal tympanic percussion. Soft, nontender, without masses or organomegaly. White sign negative. No guarding or rebound tenderness. No CVA tenderness MUSCULOSKELETAL: No muscle atrophy, erythema, noted. Lower extremity bilateral pitting edema. NEURO: Patient was alert and oriented to person place and time. Normal sensation to light and sharp touch. No focal neurological deficits. Course Administered Medications Magnesium Sulfate/Dextrose (Magnesium Sulfate / D5w) 1 gm in 100 mls @ 100 mls/hr IV Q1H KARLO Stop: 01/17/22 00:34 Last Admin: 01/16/22 23:59 Dose: 100 mls/hr Documented By: Infusion: 01/16/22 23:59 Dose: 0 mls/hr Documented By: Admin: 01/16/22 22:51 Dose: 100 mls/hr Documented By: BS Discontinued Medications Albuterol (Albut/Ipratrop 3mg/0.5mg Neb 3 Ml Vial) 3 ml NEB NOW STA; Protocol Stop: 01/16/22 22:36 Last Admin: 01/16/22 22:51 Dose: 3 ml Documented By: BS Amlodipine Besylate (Amlodipine Besylate 5 Mg Tab) 2.5 mg PO NOW STA Stop: 01/16/22 23:15 Last Admin: 01/16/22 23:58 Dose: 2.5 mg Documented By: BS Furosemide (Furosemide 40 Mg/4 Ml Vial) 40 mg IV ONE ONE Stop: 01/16/22 22:36 Last Admin: 01/16/22 22:51 Dose: 40 mg Documented By: BS Nitroglycerin (Nitroglycerin 2% Ointment 30gm Tube) 1 inch EXT NOW ONE Stop: 01/16/22 22:36 Last Admin: 01/16/22 22:52 Dose: 1 inch Documented By: CHEY Medical Decision Making Medical Records Attestation: I reviewed the patient's medical records. Home Medications Current Medication List: was personally reviewed by me Laboratory Data Attestation: I reviewed the patient's lab results. Result diagrams: 01/16/22 21:25 01/16/22 21:25 Lab Results 01/16/22 01/16/22 01/16/22 Range/Units 21:25 21:25 21:25 WBC 11.34 H (4.8-10.8) K/ul RBC 3.91 L (4.63-6.08) M/uL Hgb 12.9 L (14.0-18.0) g/dl Hct 38.0 L (40.1-51.0) % MCV 97.2 (80.0-100.0) fL MCH 33.0 (25.0-34.0) pg MCHC 33.9 (32.0-36.0) g/dL RDW Std Deviation 51.7 H (36.4-46.3) fL RDW Coeff of Marjorie 14.4 (11.5-14.5) % Plt Count 206 (130-400) K/uL MPV 11.7 (9.4-12.4) fL Immature Gran % (Auto) 0.2 % Neut % (Auto) 61.0 % Lymph % (Auto) 28.0 % [place] % (Auto) 6.7 % Eos % (Auto) 3.5 % Baso % (Auto) 0.6 % Neut # (Auto) 6.92 H (1.4-6.5) K/uL Lymph # (Auto) 3.17 (1.2-3.4) K/uL [place] # (Auto) 0.76 (0.24-0.82) K/uL Eos # (Auto) 0.40 (0-0.50) K/uL Baso # (Auto) 0.07 (0-0.2) K/uL Immature Gran # (Auto) 0.02 (0.00-0.02) K/uL PT 11.4 (9.0-12.0) Seconds INR 1.1 (0.9-1.1) APTT 27.6 (21.0-31.0) Seconds PTT Ratio 1.0 Sodium 137 (136-145) mmol/L Potassium 4.3 (3.5-5.1) mmol/L Chloride 103 (98-107) mmol/L Carbon Dioxide 27 (21-32) mmol/L Anion Gap 7 (3-11) BUN 26 H (6-23) mg/dl Creatinine 1.52 H (0.6-1.4) mg/dl Est Cr Clr Drug Dosing 50.4 ml/min Est GFR ( Amer) 51.9 ml/min Est GFR (Non-Af Amer) 44.8 ml/min BUN/Creatinine Ratio 17.1 (10-20) Glucose 125 H (70-99(Fasting)) mg/dl Calcium 9.1 (8.5-10.1) mg/dl Magnesium 1.6 L (1.7-2.4) mg/dl Total Bilirubin 1.1 H (0.2-1.0) mg/dl AST 54 H (13-39) U/L ALT 41 (7-52) U/L Alkaline Phosphatase 223 H (34-104) U/L Troponin I High Sens 13.3 D (0-20) pg/ml B-Natriuretic Peptide (0-100) pg/ml Total Protein 8.0 (6.0-8.3) gm/dl Albumin 3.3 L (3.4-5.0) gm/dl Globulin 4.7 H (2.5-4.0) gm/dl Albumin/Globulin Ratio 0.7 L (0.9-2) TSH (0.300-4.500) uIu/ml SARS-CoV-2, RNA, NAAT (NEGATIVE) 01/16/22 01/16/22 01/16/22 Range/Units 21:25 21:25 23:10 WBC (4.8-10.8) K/ul RBC (4.63-6.08) M/uL Hgb (14.0-18.0) g/dl Hct (40.1-51.0) % MCV (80.0-100.0) fL MCH (25.0-34.0) pg MCHC (32.0-36.0) g/dL RDW Std Deviation (36.4-46.3) fL RDW Coeff of Marjorie (11.5-14.5) % Plt Count (130-400) K/uL MPV (9.4-12.4) fL Immature Gran % (Auto) % Neut % (Auto) % Lymph % (Auto) % [place] % (Auto) % Eos % (Auto) % Baso % (Auto) % Neut # (Auto) (1.4-6.5) K/uL Lymph # (Auto) (1.2-3.4) K/uL [place] # (Auto) (0.24-0.82) K/uL Eos # (Auto) (0-0.50) K/uL Baso # (Auto) (0-0.2) K/uL Immature Gran # (Auto) (0.00-0.02) K/uL PT (9.0-12.0) Seconds INR (0.9-1.1) APTT (21.0-31.0) Seconds PTT Ratio Sodium (136-145) mmol/L Potassium (3.5-5.1) mmol/L Chloride (98-107) mmol/L Carbon Dioxide (21-32) mmol/L Anion Gap (3-11) BUN (6-23) mg/dl Creatinine (0.6-1.4) mg/dl Est Cr Clr Drug Dosing ml/min Est GFR ( Amer) ml/min Est GFR (Non-Af Amer) ml/min BUN/Creatinine Ratio (10-20) Glucose (70-99(Fasting)) mg/dl Calcium (8.5-10.1) mg/dl Magnesium (1.7-2.4) mg/dl Total Bilirubin (0.2-1.0) mg/dl AST (13-39) U/L ALT (7-52) U/L Alkaline Phosphatase (34-104) U/L Troponin I High Sens (0-20) pg/ml B-Natriuretic Peptide 514 H (0-100) pg/ml Total Protein (6.0-8.3) gm/dl Albumin (3.4-5.0) gm/dl Globulin (2.5-4.0) gm/dl Albumin/Globulin Ratio (0.9-2) TSH 1.530 (0.300-4.500) uIu/ml SARS-CoV-2, RNA, NAAT NEGATIVE (NEGATIVE) 01/16/22 Range/Units 23:12 WBC (4.8-10.8) K/ul RBC (4.63-6.08) M/uL Hgb (14.0-18.0) g/dl Hct (40.1-51.0) % MCV (80.0-100.0) fL MCH (25.0-34.0) pg MCHC (32.0-36.0) g/dL RDW Std Deviation (36.4-46.3) fL RDW Coeff of Marjorie (11.5-14.5) % Plt Count (130-400) K/uL MPV (9.4-12.4) fL Immature Gran % (Auto) % Neut % (Auto) % Lymph % (Auto) % [place] % (Auto) % Eos % (Auto) % Baso % (Auto) % Neut # (Auto) (1.4-6.5) K/uL Lymph # (Auto) (1.2-3.4) K/uL [place] # (Auto) (0.24-0.82) K/uL Eos # (Auto) (0-0.50) K/uL Baso # (Auto) (0-0.2) K/uL Immature Gran # (Auto) (0.00-0.02) K/uL PT (9.0-12.0) Seconds INR (0.9-1.1) APTT (21.0-31.0) Seconds PTT Ratio Sodium (136-145) mmol/L Potassium (3.5-5.1) mmol/L Chloride (98-107) mmol/L Carbon Dioxide (21-32) mmol/L Anion Gap (3-11) BUN (6-23) mg/dl Creatinine (0.6-1.4) mg/dl Est Cr Clr Drug Dosing ml/min Est GFR ( Amer) ml/min Est GFR (Non-Af Amer) ml/min BUN/Creatinine Ratio (10-20) Glucose (70-99(Fasting)) mg/dl Calcium (8.5-10.1) mg/dl Magnesium (1.7-2.4) mg/dl Total Bilirubin (0.2-1.0) mg/dl AST (13-39) U/L ALT (7-52) U/L Alkaline Phosphatase (34-104) U/L Troponin I High Sens 15.3 (0-20) pg/ml B-Natriuretic Peptide (0-100) pg/ml Total Protein (6.0-8.3) gm/dl Albumin (3.4-5.0) gm/dl Globulin (2.5-4.0) gm/dl Albumin/Globulin Ratio (0.9-2) TSH (0.300-4.500) uIu/ml SARS-CoV-2, RNA, NAAT (NEGATIVE) Imaging Data Attestation: I personally reviewed and interpreted this imaging study as follows: Radiologist's Impression: Chest X-Ray 01/16/22 21:17 XR chest 1V portable CLINICAL HISTORY: SOB TECHNIQUE: Single frontal radiograph of the chest was obtained. Comparison: Comparison is made to chest radiograph 01/01/2022 FINDINGS: No lines and tubes are seen. Cardiomegaly is noted. Prominence and cephalization of the vasculature is seen. No evidence of pleural effusion or pneumothorax. Old healed rib fractures are seen. IMPRESSION: Cardiomegaly with mild pulmonary edema. ACT 112: Negative or not required by law. Electronically signed by: Alexis Rice M.D. 01/16/2022 10:20 PM MDM Narrative Prior records/ancillary studies reviewed. Triage Nursing notes reviewed. Additional history obtained from family The patient's history was concerning for shortness of breath and chest pain. Differential diagnosis: Etiologies such as cardiac ischemia, aortic dissection, pulmonary embolism, pneumonia, pneumothorax, musculoskeletal, infections, pericarditis, myocarditis, esophageal rupture, gastrointestinal, as well as others were entertained. Physical examination: As above. ER treatment provided: An order was placed for continuous cardiac monitoring. The monitor shows a rate of 60-1 50 with a sinus rhythm. Lasix, nebulizer, nitroglycerin, magnesium On reassessment the patient felt better. Diagnostic interpretation by me: The electrocardiogram was ordered for chest EKG: Normal sinus, bigeminy, rate of 78, no acute ST-T wave changes. Impression normal sinus rhythm with bigeminy left axis interpreted by myself EKG shows normal sinus rhythm with no interval abnormalities such as QT prolongation or WPW. There are no findings to suggest Brugada syndrome. Cardiac monitoring in the emergency department reveals no tachycardic or bradycardic dysrhythmia. Hypertrophic cardiomyopathy was considered but there are no clear historical elements pointing toward this. EKG is not suggestive. The QRS voltage is not extremely large The labs revealed elevated BNP Imaging studies: As above HEART SCORE: Hx: high/mod/low suspicion: 1 ECG: ST depression/nonspecific changes/normal: 1 Age: Greater than 65/45-64/less than 45: 2 Risk factors: (Hypertension, hyperlipidemia, diabetes, coronary disease, tobacco use, cocaine use): 2 Troponin: Greater than 2 times normal limits/1-2 times normal limits/normal: 0 Total: 6 Consultation: A consultation was placed with the hospitalist. The case was discussed and diagnostics were reviewed. The patient was evaluated in the ER for further treatment. Exam and history seem consistent with CHF exacerbation. Patient was medicated as above. Magnesium was replaced. Medicine was consulted. He will be evaluated for admission. By the evaluation outlined above emergent etiologies such as aortic dis section, pulmonary embolism, pneumonia, pneumothorax, infections, pericarditis, myocarditis, gastrointestinal, as well as others were deemed relatively unlikely. The pt informed about the findings as listed above. All questions were answered and pleased with the treatment. The chart was completed utilizing [employer] voice recognition software. Grammatical errors, random word insertions, pronoun errors, and incomplete sentences are an occassional consequence of this system due to software limitations, ambient noise, and hardware issues. Any formal questions or concerns about the content, text, or information contained within the body of this dictation should be directly addressed to the physician events and promotions assistant for clarification. Impression & Plan Acute exacerbation of CHF (congestive heart failure) Discharge Plan Visit Data Chief Complaint: Shortness of Breath/Dyspnea Stated Complaint: CHF, FILLING WITH FLUID, SOB, ED Provider: Aaron Mon ED Midlevel Provider: Lexus Kay Discharge Problem: Acute exacerbation of CHF (congestive heart failure) Patient Disposition: Admitted As Inpatient Condition: Good Forms Stand Alone Forms: My [facility] [employer] Prescriptions Prescriptions: No Action metformin 500 mg tablet 500 mg PO BIDM losartan 50 mg tablet 50 mg PO QAM trazodone 100 mg tablet 100 mg PO HS oxycodone 10 mg tablet 10 mg PO QID Rx Instructions: take in AM, NOON, PM & BEFORE HS metoprolol succinate 25 mg Tablet Extended Release 24 Hr 25 mg PO QAM 30 Days Qty: 30 0RF furosemide 20 mg tablet 20 mg PO MOWEFR Qty: 30 0RF Referrals Referrals: Jerzy Glez MD [Primary Care Provider] -
--- NOTE | 2022-01-17 00:55 | History & Physical Report ---
Date of Service January 17, 2022 Assessment & Plan (1) Acute exacerbation of CHF (congestive heart failure): Plan: Decompensated heart failure History diastolic function History cirrhosis Recurrent admission ? Precipitated by persistently uncontrolled blood pressure ? Cardiorenal syndrome (progression of kidney dysfunction following discharge from last confinement) Chest pain secondary to above Rule out ACS Leg swelling secondary to CHF rule out DVT DM2 on oral medications, well-controlled as of recent hemoglobin A1c of 5.7 last December 2021 chronic anemia, hemoglobin at baseline chronic back pain on [id number] narcotics past tobacco abuse PCU Diuretic Rx Strict I/Os, daily weights, CHF education, fluid restriction Follow troponin Cardiology consult Re: Decompensated heart failure, chest pain Baseline UA, renal ultrasound Re: Risk of kidney dysfunction Hold losartan until creatinine back to baseline, low-dose amlodipine for BP control losartan on hold Consider Nephrology evaluation Aspirin for CAD prevention until ACS ruled out LE venous Dopplers rule out DVT Basal bolus insulin, ISS BG goal 1 10-1 40, carb count coverage DVT prophylaxis. Heparin subcu Full code Text document was generated using [employer] voice recognition software. It may contain grammatical or spelling errors. Kindly contact undersigned for clarification of any documentation item in question. History of Present Illness Chief Complaint: Chest pain, shortness of breath, leg swelling Primary Care Provider: Jerzy Glez MD History obtained from patient and records. Medical history significant for chronic diastolic heart failure (EF 50 to 55%, TTE 2021), valvular heart disease (mild MR/TR), hypertension, history endocarditis, DM2 on oral medications, CRI (baseline creatinine 1.3), chronic anemia (baseline hemoglobin 12-13), cirrhosis, chronic back pain on narcotics, past tobacco abuse. Last confinement 2 weeks ago for chest pain, uncontrolled hypertension and CHF. TTE showed EF of 50-55%, diastolic dysfunction, mild mitral regurgitation and mild tricuspid regurgitation. Patient discharged on beta-alicia and diuretic regimen following Cardiology recommendations. Patient went on fishing trip last week with his buddies in [facility]. 3 days ago, patient noted increased bilateral leg swelling, abdominal distention. Patient compliant with home medications. Denies dietary indiscretion. Does not check blood pressure at home. No weighing scale at home as per patient . No snoring symptoms as per . Usual for patient not to have restful sleep secondary to chronic back pain as per . Last night, patient noted sharp achy chest pain with worsening shortness of breath. SBP 170s upon arrival at the ER. Chest discomfort somewhat improved after Nitropaste administration. 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 Allergies Allergy/AdvReac Type Severity Reaction Status Date / Time No Known Allergies Allergy Verified 01/02/22 00:49 Home Medications Medication Instructions Recorded Confirmed Type metformin 500 mg tablet 500 mg PO BIDM 08/22/19 01/17/22 History losartan 50 mg tablet 50 mg PO QAM 01/02/22 01/17/22 History oxycodone 10 mg tablet 10 mg PO QID 01/02/22 01/17/22 History trazodone 100 mg tablet 100 mg PO HS 01/02/22 01/17/22 History furosemide 20 mg tablet 20 mg PO MOWEFR #30 tabs 01/04/22 01/17/22 Rx metoprolol succinate 25 mg 25 mg PO QAM 30 days #30 tabs 01/04/22 01/17/22 Rx tablet,extended release 24 hr Past Med/Surg History Medical History Cirrhosis CKD (chronic kidney disease), stage III DMII (diabetes mellitus, type 2) H/O endocarditis Multiple rib fractures Opioid type dependence, unspecified Rib pain (09/10/10) Subacute bacterial endocarditis (09/24/10) Surgical History History of cholecystectomy Previous back surgery Social History Smoking Status: Former smoker Cigarettes Per Day: 15; Smoking End Date: 35 years ago; Second Hand Exposure: No; Do You Dip or Chew Tobacco: No; Tobacco Cessation Education Requested by Patient: No Hx Alcohol Use: No Hx Substance Use: Yes Last Used Substance Other:: Today Preferred Language: Mongolian Communication Ability: Effective 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 Beliefs That Will Affect Care: None Current Living Situation: Spouse Other Information That Helps Us Care for You: No Feels Safe at Home: Yes Safety Concerns: Feels Safe At This Time Assistive Devices: Denture - Upper Review of Systems Review of Systems: As per HPI, all other systems reviewed and negative Physical Exam Physical Exam: GENERAL: Comfortable, slightly anxious, no respiratory distress SKIN: Pallor, warm HEENT: Pale palpebral conjunctivae, no ptosis, moist buccal mucosa NECK : Supple, no tenderness CHEST : Decreased breath sounds, no tenderness BACK : Chronic mid back tenderness HEART : RRR, no obvious murmurs ABDOMEN: Some distention, nontender EXTREMITIES : Bilateral LE swelling, no LE tenderness, no other conspicuous deformities noted NEUROLOGIC : Coherent, no facial asymmetry, no other gross focality Results & Data Results & Data ([facility]) Vital Signs (Past 12 Hours) Vital Signs Temp Pulse Resp BP Pulse Ox O2 Del Method 01/17/22 00:00 78 19 93 01/16/22 23:46 78 22 147/59 H 94 01/16/22 23:31 78 24 145/63 H 93 01/16/22 23:15 77 26 H 161/71 H 95 01/16/22 23:00 75 24 165/60 H 94 01/16/22 23:57 93 Room Air 01/16/22 22:55 77 18 94 Room Air 01/16/22 21:12 37.0 C 45 L 20 176/64 H 93 Room Air Laboratory Results Laboratory Results WBC 11.34 K/ul (4.8-10.8) H 01/16/22 21:25 RBC 3.91 M/uL (4.63-6.08) L 01/16/22 21:25 Hgb 12.9 g/dl (14.0-18.0) L 01/16/22 21:25 Hct 38.0 % (40.1-51.0) L 01/16/22 21:25 MCV 97.2 fL (80.0-100.0) 01/16/22 21:25 MCH 33.0 pg (25.0-34.0) 01/16/22 21:25 MCHC 33.9 g/dL (32.0-36.0) 01/16/22 21:25 RDW Std Deviation 51.7 fL (36.4-46.3) H 01/16/22 21:25 RDW Coeff of Marjorie 14.4 % (11.5-14.5) 01/16/22 21:25 Plt Count 206 K/uL (130-400) 01/16/22 21: MPV 11.7 fL (9.4-12.4) 01/16/22: Immature Gran % (Auto) 0.2 % 01/16/22: Neut % (Auto) 61.0 % 01/16/22: Lymph % (Auto) 28.0 % 01/16/22: [place] % (Auto) 6.7 % 01/16/22: Eos % (Auto) 3.5 % 01/16/22: Baso % (Auto) 0.6 % 01/16/22: Neut # (Auto) 6.92 K/uL (1.4-6.5) H 01/16/22: Lymph # (Auto) 3.17 K/uL (1.2-3.4) 01/16/22: [place] # (Auto) 0.76 K/uL (0.24-0.82) 01/16/22: Eos # (Auto) 0.40 K/uL (0-0.50) 01/16/22: Baso # (Auto) 0.07 K/uL (0-0.2) 01/16/22: Immature Gran # (Auto) 0.02 K/uL (0.00-0.02) 01/16/22: PT 11.4 Seconds (9.0-12.0) 01/16/22: INR 1.1 (0.9-1.1) 01/16/22: APTT 27.6 Seconds (21.0-31.0) 01/16/22: PTT Ratio 1.0 01/16/22 21: Sodium 137 mmol/L (136-145) 01/16/22 21: Potassium 4.3 mmol/L (3.5-5.1) 01/16/22 21: Chloride 103 mmol/L (98-107) 01/16/22 21: Carbon Dioxide 27 mmol/L (21-32) 01/16/22 21:25 Anion Gap 7 (3-11) 01/16/22 21:25 BUN 26 mg/dl (6-23) H 01/16/22 21:25 Creatinine 1.52 mg/dl (0.6-1.4) H 01/16/22 21:25 Est Cr Clr Drug Dosing 50.4 ml/min 01/16/22 21:25 Est GFR ( Amer) 51.9 ml/min 01/16/22 21:25 Est GFR (Non-Af Amer) 44.8 ml/min 01/16/22 21:25 BUN/Creatinine Ratio 17.1 (10-20) 01/16/22 21:25 Glucose 125 mg/dl (70-99(Fasting)) H 01/16/22 21:25 Calcium 9.1 mg/dl (8.5-10.1) 01/16/22: Magnesium 1.6 mg/dl (1.7-2.4) L 01/16/22:25 Total Bilirubin 1.1 mg/dl (0.2-1.0) H 01/16/22:25 AST 54 U/L (13-39) H 01/16/22 21:25 ALT 41 U/L (7-52) 01/16/22 21:25 Alkaline Phosphatase 223 U/L (34-104) H 01/16/22 21:25 Troponin I High Sens 15.3 pg/ml (0-20) 01/16/22 23:12 B-Natriuretic Peptide 514 pg/ml (0-100) H 01/16/22:25 Total Protein 8.0 gm/dl (6.0-8.3) 01/16/22: Albumin 3.3 gm/dl (3.4-5.0) L 01/16/22 21:25 Globulin 4.7 gm/dl (2.5-4.0) H 01/16/22 21:25 Albumin/Globulin Ratio 0.7 (0.9-2) L 01/16/22:25 TSH 1.530 uIu/ml (0.300-4.500) 01/16/22 21:25 SARS-CoV-2, RNA, NAAT NEGATIVE (NEGATIVE) 01/16/22 23:10 Impressions Chest X-Ray 01/16/22 21:17 XR chest 1V portable CLINICAL HISTORY: SOB TECHNIQUE: Single frontal radiograph of the chest was obtained. Comparison: Comparison is made to chest radiograph 01/01/2022 FINDINGS: No lines and tubes are seen. Cardiomegaly is noted. Prominence and cephalization of the vasculature is seen. No evidence of pleural effusion or pneumothorax. Old healed rib fractures are seen. IMPRESSION: Cardiomegaly with mild pulmonary edema. ACT 112: Negative or not required by law. Electronically signed by: Alexis Rice M.D. 01/16/2022 10:20 PM Diagnostic Findings EKG as per my interpretation :Rate 80, NSR, normal axis, LVH, no ischemia, PVCs
[2022-01-17] MEDS ORDERED: ASPIRIN 81 MG ECTAB PO STA (01:23)
[2022-01-17] MEDS ORDERED: HYDROmorphone HCL 2 MG TAB PO PRN (02:19)
[2022-01-17] MEDS ORDERED: NITROGLYCERIN SL 0.4 MG/TAB TAB SL PRN (02:19)
[2022-01-17] MEDS ORDERED: LORazepam 0.5 MG TAB PO PRN (02:19)
[2022-01-17] MEDS ORDERED: PROMETHAZINE HCL 12.5 MG in SODIUM CHLORIDE 0.9% 50 ML IV PRN (02:19)
[2022-01-17] MEDS ORDERED: ACETAMINOPHEN 325 MG TAB PO PRN (02:19)
[2022-01-17] MEDS ORDERED: HYDROmorphone INJ 0.5 MG/0.5 ML SYR IV PRN (02:19)
[2022-01-17] MEDS: traZODone HCL 100 MG TAB PO SCH ×2 (03:05→20:54)
[2022-01-17] MEDS ORDERED: DEXTROSE 50% 50 ML SYRINGE IV PRN (04:43)
[2022-01-17] MEDS ORDERED: GLUCOSE 40% GEL 15 GM TUBE PO PRN (04:43)
[2022-01-17] MEDS ORDERED: CARBOHYDRATES FOR HYPOGLYCEMIA PO PRN (04:43)
[2022-01-17] MEDS ORDERED: GLUCAGON FOR INJ 1 MG VIAL SQ PRN (04:43)
[2022-01-17] MEDS ORDERED: GLUCOSE 10 TAB/TUBE PO PRN (04:43)
[2022-01-17] MEDS: HEPARIN SOD 5,000 UNIT/0.5 ML VIAL SQ SCH ×3 (05:20→20:54)
[2022-01-17] MEDS ORDERED: ACETAMINOPHEN 500 MG TAB PO PRN (05:45)
[2022-01-17 05:57] LABS: Basophils # (auto) 0.07 K/uL (0-0.2); Basophils % (auto) 0.6 %; Eosinophils % (auto) 3.7 %; Hematocrit (blood only) 34.4 % (40.1-51.0); Immature Granulocytes # (auto) 0.09 K/uL (0.00-0.02); Immature Granulocytes % (auto) 0.8 %; Lymphocytes # (auto) 3.21 K/uL (1.2-3.4); Lymphocytes % (auto) 29.8 %; Mean Corpuscular Hemoglobin 33.4 pg (25.0-34.0); Mean Corpuscular Hgb Conc 34.9 g/dL (32.0-36.0); Mean Corpuscular Volume 95.8 fL (80.0-100.0); Mean Platelet Volume 12.1 fL (9.4-12.4); Monocytes # (auto) 0.85 K/uL (0.24-0.82); Monocytes % (auto) 7.9 %; Neutrophils # (auto) 6.15 K/uL (1.4-6.5); Neutrophils % (auto) 57.2 %; Platelet Count 185 K/uL (130-400); RDW Coefficient of Variation 14.2 % (11.5-14.5); Red Blood Count 3.59 M/uL (4.63-6.08); White Blood Count 10.77 K/ul (4.8-10.8)
[2022-01-17 06:05] LABS: Partial Thromboplastin Time 28.5 Seconds (21.0-31.0)
[2022-01-17 06:15] LABS: Calcium 8.8 mg/dl (8.5-10.1); Creatinine Clr Calc Pharmacy 51.3 ml/min; Est GFR (African American) 54.1 ml/min; Est GFR (Non-African American) 46.7 ml/min
--- NOTE | 2022-01-17 06:18 | Ultrasound Report ---
ULTRASOUND BILATERAL LOWER EXTREMITY VENOUS CLINICAL HISTORY: Lower extremity edema. COMPARISON STUDY: Bilateral GENERALLY venous ultrasound dated 10/13/2010. TECHNIQUE: Real-time, grayscale, and color Doppler sonography of the deep veins of the right and left lower extremity was performed from the inguinal crease to the calf. Compression and augmentation wer e utilized. FINDINGS: There is no sonographic evidence of deep venous thrombosis identified in the right or left lower extremity. The common femoral, superficial femoral, and popliteal veins are patent and normally compressible bilaterally. The greater saphenous vein and the profunda femoris vein at the junction w ith the common femoral vein are clear in both legs. The visualized calf veins are patent bilaterally. IMPRESSION: There is no sonographic evidence of deep venous thrombosis identified in the right or lef t lower extremity. ACT 112: Negative or not required by law. Electronically signed by: Mg Allred M.D. 01/17/2022 6:16 AM
--- NOTE | 2022-01-17 07:14 | Electrocardiogram Report ---
Test Reason : Blood Pressure : / mmHG Vent. Rate : 078 BPM Atrial Rate : 078 BPM P-R Int : 178 ms QRS Dur : 094 ms QT Int : 380 ms P-R-T Axes : 059 -09 026 degrees QTc Int : 433 ms Sinus rhythm with frequent Premature ventricular complexes in a pattern of bigeminy Voltage criteria for left ventricular hypertrophy Abnormal ECG When compared with ECG of 03-JAN-2022 05:31, Premature ventricular complexes are now Present Confirmed by Hany Moreland ([id number]) on 01/17/2022 7:14:56 AM Referred By: REFERRED SELF Confirmed By:Noah Moreland
[2022-01-17] MEDS ORDERED: FUROSEMIDE 40 MG/4 ML VIAL IV ONE (08:00)
[2022-01-17] MEDS ORDERED: ALBUMIN 25% 12.5 GM/50 ML VIAL IV ONE (08:00)
[2022-01-17] MEDS: INSULIN ASPART PER UNIT SC SCH ×4 (08:34→20:53)
[2022-01-17] MEDS ORDERED: Flu Vaccine-High Dose (Fluzone-HD) PF 65+ 0.7mL SYR IM ONE (09:00)
[2022-01-17] MEDS ORDERED: PNEUMOCOCCAL Polysaccharide Vaccine 25mcg/0.5mL vial/Syr IM ONE (09:00)
[2022-01-17] MEDS: METOPROLOL SUCC 25MG EXT REL TAB PO SCH (09:15)
[2022-01-17] MEDS: oxyCODONE HCL IR 5 MG TAB (IMMEDIATE RELEASE) PO SCH ×4 (09:17→20:53)
--- NOTE | 2022-01-17 09:24 | Ultrasound Report ---
US renal/blad retro comp CLINICAL HISTORY: renal failure TECHNIQUE: Multiple sonographic real-time images of the kidneys and bladder were obtained. COMPARISON: Comparison is made to renal ultrasound 10/02/[address] abdomen pelvis 01/01/2022 FINDINGS: The right kidney measures 11 cm in length, and the left kidney measures 11.7 cm in length. The right kidney is normal in size, contour, cortical thickness, and echogenicity. Pelvic fullness is seen. A tiny cyst is in the superior pole. No perinephric fluid collection is seen. The left kidney is normal in size, contour, cortical thickness and echogenicity. Pelvic fullness is seen. Pelvic fullness is seen. No renal lesion is identified. No perinephric fluid collection is se en. The bladder is partially distended. No large intraluminal mass is seen. Trace free fluid is noted. In cidental note is made of a spleen measuring 13.8 cm. IMPRESSION: There is fullness of the bilateral collecting systems, increased from 2010, which may represent pelvi ectasis or hydronephrosis. If there is concern for obstruction, CT abdomen pelvis can be performed. ACT 112: Negative or not required by law. Electronically signed by: Alexis Rice M.D. 01/17/2022 9:23 AM
--- NOTE | 2022-01-17 09:40 | Cardiology Consultation ---
Date of Consultation January 17, 2022 Assessment & Plan (1) Acute on chronic heart failure with preserved ejection fraction (HFpEF): (2) CKD (chronic kidney disease), stage III: (3) Cirrhosis: Plan 71-year-old patient admitted with acute on chronic heart failure with preserved ejection fraction. Recent echocardiogram personally reviewed. There is evidence of hypertensive heart disease and preserved LV systolic function. No significant valvular pathology. Recommend titration of Lasix to 40 mg twice daily. Monitor fluid balance, daily weight, GFR, and electrolytes. Hypomagnesemia noted on admission in the setting of frequent PVCs. IV magnesium currently infusing. Repeat lab studies in a.m. Initially hypertensive on admission, however, improved with addition of IV diuretic therapy and topical nitrates. Metoprolol succinate added during most recent admission. Treated with angiotensin receptor alicia in the outpatient setting, however, currently on hold due to renal insufficiency. Carries history of cirrhosis and mild ascites. Would not recommend addition of spironolactone at this time due to renal insufficienc, however, may be considered as clinical course progresses. History of Present Illness Reason for Consultation: CHF Requesting Physician: Dr. Butts Attending Physician: Jade Ramirez MD History of Present Illness 71-year-old patient who presents to the emergency department with abdominal bloating, lower extremity edema, chest discomfort, and shortness of breath. Patient was on a fishing trip last week. Developed edema, abdominal bloating, shortness of breath. States similar symptoms prompted recent admission 01/01/2022. Treated with IV diuresis in the ER. Symptoms improved this morning. Currently resting comfortably. Chest discomfort has resolved. Cardiac enzymes are negative. ECG demonstrating sinus rhythm with PVCs. Denies palpitations, lightheadedness, or dizziness. Recent echocardiogram performed 01/02/2022 demonstrating preserved LV systolic function. Carries history of cirrhosis without significant ascites or varices. Follows with gastroenterology. Allergies Allergy/AdvReac Type Severity Reaction Status Date / Time No Known Allergies Allergy Verified 01/02/22 00:49 Home Medications Medication Instructions Recorded Confirmed Type metformin 500 mg tablet 500 mg PO BIDM 08/22/19 01/17/22 History losartan 50 mg tablet 50 mg PO QAM 01/02/22 01/17/22 History oxycodone 10 mg tablet 10 mg PO QID 01/02/22 01/17/22 History trazodone 100 mg tablet 100 mg PO HS 01/02/22 01/17/22 History furosemide 20 mg tablet 20 mg PO MOWEFR #30 tabs 01/04/22 01/17/22 Rx metoprolol succinate 25 mg 25 mg PO QAM 30 days #30 tabs 01/04/22 01/17/22 Rx tablet,extended release 24 hr Patient History Medical History Cirrhosis CKD (chronic kidney disease), stage III DMII (diabetes mellitus, type 2) H/O endocarditis Multiple rib fractures Opioid type dependence, unspecified Rib pain (09/10/10) Subacute bacterial endocarditis (09/24/10) Surgical History History of cholecystectomy Previous back surgery Social History Smoking Status: Former smoker Cigarettes Per Day: 15; Smoking End Date: 35 years ago; Second Hand Exposure: No; Do You Dip or Chew Tobacco: No; Tobacco Cessation Education Requested by Patient: No Hx Alcohol Use: No Hx Substance Use: Yes Last Used Substance Other:: Today Preferred Language: Nigerien Communication Ability: Effective 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 Beliefs That Will Affect Care: None marital status: Current Living Situation: Spouse Other Information That Helps Us Care for You: No Feels Safe at Home: Yes Safety Concerns: Feels Safe At This Time Assistive Devices: None Review of Systems Review of Systems: All systems reviewed & are unremarkable except as noted in Subjective Physical Exam Constitutional: well nourished; no acute distress Respiratory: no respiratory distress, no labored breathing and no retractions Cardiovascular: Rate/Rhythm: regular rate and regular rhythm Heart Sounds: normal S1 and normal S2; no murmur Extremities: no edema Gastrointestinal (Abdomen): Inspection/Auscultation: abdomen normal to inspection; abdomen not distended Percussion/Palpation: abdomen soft; abdomen nontender and no guarding Neurologic: CN's II-XI intact bilaterally and moves all extremities; no focal motor deficits Psychiatric: A+Ox3, euthymic affect Results & Data ([facility]) Vital Signs (Past 12 Hours) Vital Signs Temp Pulse Pulse Resp BP BP Pulse Ox 01/17/22 07:37 37.1 C 64 16 117/57 L 96 01/17/22 04:02 68 01/17/22 03:52 01/17/22 03:08 37.2 C 68 18 154/57 H 93 01/17/22 02:19 01/17/22 02:22 37.3 C 69 145/64 H 94 01/17/22 01:48 129/57 L 93 01/17/22 01:01 72 24 92 01/17/22 01:00 74 26 H 133/46 L 92 01/17/22 00:31 75 23 166/72 H 92 01/17/22 00:00 78 24 143/96 H 94 01/17/22 02:00 01/17/22 00:00 78 19 93 01/16/22 23:46 78 22 147/59 H 94 01/16/22 23:31 78 24 145/63 H 93 01/16/22 23:15 77 26 H 161/71 H 95 01/16/22 23:00 75 24 165/60 H 94 01/16/22 23:57 93 01/16/22 22:55 77 18 94 Pulse Ox O2 Del Method O2 Del Method 01/17/22 07:37 Room Air 01/17/22 04:02 01/17/22 03:52 Room Air 01/17/22 03:08 Room Air 01/17/22 02:19 97 Room Air 01/17/22 02:22 Room Air 01/17/22 01:48 01/17/22 01:01 01/17/22 01:00 01/17/22 00:31 01/17/22 00:00 01/17/22 02:00 Room Air 01/17/22 00:00 01/16/22 23:46 01/16/22 23:31 01/16/22 23:15 01/16/22 23:00 01/16/22 23:57 Room Air 01/16/22 22:55 Room Air
[2022-01-17 11:40] LABS: Appearance Urine Clear (Clear); Bacteria Urine Automated Negative (Negative); Bilirubin Urine Negative (Negative); Blood Urine Negative (Negative); Color Urine Yellow; Epithelial Cell Urine Auto 0-5 /lpf (0-5); Glucose Urine UA Negative (Negative); Ketones Urine Negative (Negative); Leukocyte Esterase Urine Negative (Negative); Nitrite Urine Negative (Negative); Protein Urine Trace (Negative); RBC Urine Automated 0-4 /hpf (0-4); Specific Gravity Urine 1.008 (1.000-1.030); Urobilinogen Urine Negative (Negative); WBC Urine Automated 0 /hpf (0-5)
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
[2022-01-17] MEDS: FUROSEMIDE 40 MG/4 ML VIAL IV SCH (17:03)
[2022-01-17] MEDS: amLODIPine BESYLATE 5 MG TAB PO SCH (20:54)
[2022-01-18] MEDS: HEPARIN SOD 5,000 UNIT/0.5 ML VIAL SQ SCH ×3 (05:39→21:02)
[2022-01-18 08:01] LABS: Hematocrit (blood only) 38.3 % (40.1-51.0); Hemoglobin 13.3 g/dl (14.0-18.0); Mean Corpuscular Hemoglobin 33.1 pg (25.0-34.0); Mean Corpuscular Hgb Conc 34.7 g/dL (32.0-36.0); Mean Corpuscular Volume 95.3 fL (80.0-100.0); Mean Platelet Volume 12.4 fL (9.4-12.4); Platelet Count 156 K/uL (130-400); RDW Coefficient of Variation 14.1 % (11.5-14.5); RDW Standard Deviation 49.5 fL (36.4-46.3); Red Blood Count 4.02 M/uL (4.63-6.08); White Blood Count 10.19 K/ul (4.8-10.8)
[2022-01-18] MEDS: oxyCODONE HCL IR 5 MG TAB (IMMEDIATE RELEASE) PO SCH ×4 (09:00→21:01)
[2022-01-18] MEDS ORDERED: ASPIRIN 81 MG ECTAB PO SCH (09:00)
[2022-01-18] MEDS: ASPIRIN 81 MG ECTAB PO SCH (09:01)
[2022-01-18] MEDS: METOPROLOL SUCC 25MG EXT REL TAB PO SCH (09:01)
[2022-01-18] MEDS: FUROSEMIDE 40 MG/4 ML VIAL IV SCH ×2 (09:01→17:40)
[2022-01-18] MEDS: INSULIN ASPART PER UNIT SC SCH ×4 (09:02→21:01)
[2022-01-18 09:39] LABS: Alanine Aminotransferase 31 U/L (7-52); Albumin Globulin Ratio 0.7 (0.9-2); Albumin Level 3.2 gm/dl (3.4-5.0); Alkaline Phosphatase 195 U/L (34-104); Anion Gap 6 (3-11); BUN Creatinine Ratio 22.9 (10-20); Bilirubin,Total 1.3 mg/dl (0.2-1.0); Blood Urea Nitrogen 35 mg/dl (6-23); Calcium 8.8 mg/dl (8.5-10.1); Carbon Dioxide 28 mmol/L (21-32); Chloride 103 mmol/L (98-107); Creatinine Clr Calc Pharmacy 48.6 ml/min; Est GFR (African American) 51.5 ml/min; Est GFR (Non-African American) 44.5 ml/min; Globulin 4.5 gm/dl (2.5-4.0); Glucose 108 mg/dl (70-99(Fasting)); Sodium 137 mmol/L (136-145); Total Protein 7.7 gm/dl (6.0-8.3)
--- NOTE | 2022-01-18 11:34 | Cardiology Progress Note ---
Date of Service January 18, 2022 Assessment & Plan (1) Acute on chronic heart failure with preserved ejection fraction (HFpEF): (2) CKD (chronic kidney disease), stage III: (3) Cirrhosis: Plan 71-year-old patient admitted with acute on chronic heart failure with preserved ejection fraction. Recent echocardiogram personally reviewed. There is evidence of hypertensive heart disease and preserved LV systolic function. No significant valvular pathology. Continue IV diuresis with Lasix 40 mg twice daily. Monitor fluid balance, daily weight, GFR, and electrolytes. Hypomagnesemia noted on admission in the setting of frequent PVCs. Adequately repleted with normal serum magnesium level today. Hypertensive on admission. Metoprolol succinate added during most recent admission. Treated with angiotensin receptor alicia in the outpatient setting, however, currently on hold due to renal insufficiency. Carries history of cirrhosis and mild ascites. Would not recommend addition of spironolactone at this time due to renal insufficienc, however, may be considered as clinical course progresses. Admission and Anticipated Discharge Date Admission Date: January 17, 2022 Subjective Patient seen examined the bedside. Feeling better today. Fluid balance negative nearly 3 L overnight. Renal function remains stable. Shortness of breath improved. Edema improved as well. Telemetry reveals sinus rhythm. No dysrhythmias. Review of Systems Review of Systems: All systems reviewed & are unremarkable except as noted in HPI & below Physical Exam Constitutional: well nourished; no acute distress Respiratory: no respiratory distress, no labored breathing and no retractions Auscultation: + crackles (Bilateral bases); no rhonchi and no wheezes Cardiovascular: Rate/Rhythm: regular rate and regular rhythm Heart Sounds: normal S1 and normal S2; no murmur Extremities: no edema Gastrointestinal (Abdomen): Inspection/Auscultation: abdomen normal to inspection; abdomen not distended Percussion/Palpation: abdomen soft; abdomen nontender and no guarding Neurologic: CN's II-XI intact bilaterally and moves all extremities; no focal motor deficits Psychiatric: A+Ox3, euthymic affect Results & Data ([facility]) Vital Signs (Past 12 Hours) Vital Signs Temp Pulse Resp BP BP Pulse Ox O2 Del Method 01/18/22 08:06 37.2 C 64 16 140/52 L 93 Room Air 01/18/22 06:59 37.1 C 54 L 16 137/62 94 Room Air 01/18/22 02:59 37.2 C 61 16 131/61 95 Room Air
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
[2022-01-18] MEDS: amLODIPine BESYLATE 5 MG TAB PO SCH (21:02)
[2022-01-18] MEDS: traZODone HCL 100 MG TAB PO SCH (21:39)
--- NOTE | 2022-01-19 05:24 | Electrocardiogram Report ---
Test Reason : Blood Pressure : / mmHG Vent. Rate : 056 BPM Atrial Rate : 056 BPM P-R Int : 186 ms QRS Dur : 100 ms QT Int : 476 ms P-R-T Axes : 058 -06 012 degrees QTc Int : 459 ms Sinus bradycardia with occasional Premature ventricular complexes Otherwise normal ECG When compared with ECG of 16-JAN-2022 21:19, No significant change was found Confirmed by Ulisses Su ([id number]) on 01/19/2022 5:24:29 AM Referred By: REFERRED SELF Confirmed By:Ulisses Su
[2022-01-19] MEDS: HEPARIN SOD 5,000 UNIT/0.5 ML VIAL SQ SCH ×3 (05:59→21:33)
[2022-01-19 07:37] LABS: BUN Creatinine Ratio 23.2 (10-20); Calcium 8.5 mg/dl (8.5-10.1); Creatinine Clr Calc Pharmacy 38.3 ml/min; Est GFR (African American) 38.7 ml/min; Est GFR (Non-African American) 33.4 ml/min
[2022-01-19] MEDS: INSULIN ASPART PER UNIT SC SCH ×4 (08:31→20:15)
[2022-01-19] MEDS: ASPIRIN 81 MG ECTAB PO SCH (08:38)
[2022-01-19] MEDS: METOPROLOL SUCC 25MG EXT REL TAB PO SCH ×2 (08:39→11:16)
[2022-01-19] MEDS: FUROSEMIDE 40 MG/4 ML VIAL IV SCH (08:39)
[2022-01-19] MEDS: oxyCODONE HCL IR 5 MG TAB (IMMEDIATE RELEASE) PO SCH ×4 (09:08→20:11)
--- NOTE | 2022-01-19 14:58 | Cardiology Progress Note ---
Date of Service January 19, 2022 Assessment & Plan (1) Acute on chronic heart failure with preserved ejection fraction (HFpEF): (2) CKD (chronic kidney disease), stage III: (3) Cirrhosis: Plan 71-year-old patient admitted with acute on chronic heart failure with preserved ejection fraction. Recent echocardiogram personally reviewed. There is evidence of hypertensive heart disease and preserved LV systolic function. No significant valvular pathology. Patient has responded to IV diuretics with declining renal function. Holding IV Lasix after dose this morning Transition to oral dose in a.m. after review of renal function Chest x-ray given persistent dyspnea exam findings in a.m. Admission and Anticipated Discharge Date Admission Date: January 17, 2022 Subjective Patient seen and examined, chart, medications, telemetry reviewed. Still with some dyspnea and cough. No chest pains or discomfort no dizziness or lightheadedness. Telemetry with sinus rhythm and occasional ventricular ectopy Patient has good good diuresis since admission with 6 kg weight loss Physical Exam Constitutional: well nourished; no acute distress Respiratory: no respiratory distress, no labored breathing and no retractions Auscultation: + crackles (Right base); no rhonchi and no wheezes Cardiovascular: Rate/Rhythm: regular rate and regular rhythm Heart Sounds: normal S1 and normal S2; no murmur Extremities: no edema Gastrointestinal (Abdomen): Inspection/Auscultation: abdomen normal to inspection; abdomen not distended Percussion/Palpation: abdomen soft; abdomen nontender and no guarding Neurologic: CN's II-XI intact bilaterally and moves all extremities; no focal motor deficits Psychiatric: A+Ox3, euthymic affect Results & Data ([facility]) Vital Signs (Past 12 Hours) Vital Signs Temp Pulse Pulse Resp BP BP Pulse Ox 01/19/22 11:16 63 01/19/22 10:53 01/19/22 11:15 37.2 C 55 L 18 113/47 L 94 01/19/22 07:51 58 L 01/19/22 07:36 37.6 C H 60 17 126/52 L 95 01/19/22 03:43 37.1 C 55 L 18 136/49 L 94 O2 Del Method 01/19/22 11:16 01/19/22 10:53 Room Air 01/19/22 11:15 Room Air 01/19/22 07:51 01/19/22 07:36 Room Air 01/19/22 03:43 Room Air Laboratory Results Laboratory Results - last 24 hr 01/18/22 01/18/22 01/19/22 16:25 20:51 06:18 Sodium 138 Potassium 4.0 Chloride 102 Carbon Dioxide 30 Anion Gap 6 BUN 45 H Creatinine 1.94 H D Est Cr Clr Drug Dosing 38.3 Est GFR ( Amer) 38.7 Est GFR (Non-Af Amer) 33.4 BUN/Creatinine Ratio 23.2 H Glucose 103 H POC Glucose 120 H 137 H Calcium 8.5 01/19/22 01/19/22 07:25 11:38 Sodium Potassium Chloride Carbon Dioxide Anion Gap BUN Creatinine Est Cr Clr Drug Dosing Est GFR ( Amer) Est GFR (Non-Af Amer) BUN/Creatinine Ratio Glucose POC Glucose 108 H 135 H Calcium
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
[2022-01-19] MEDS: amLODIPine BESYLATE 5 MG TAB PO SCH (20:12)
[2022-01-19] MEDS: traZODone HCL 100 MG TAB PO SCH (21:33)
[2022-01-20] MEDS: HEPARIN SOD 5,000 UNIT/0.5 ML VIAL SQ SCH (06:12)
[2022-01-20 08:32] LABS: BUN Creatinine Ratio 26.5 (10-20); Calcium 8.6 mg/dl (8.5-10.1); Creatinine Clr Calc Pharmacy 44.8 ml/min; Est GFR (African American) 46.7 ml/min; Est GFR (Non-African American) 40.3 ml/min; Potassium 4.3 mmol/L (3.5-5.1)
[2022-01-20] MEDS: INSULIN ASPART PER UNIT SC SCH ×2 (08:43→12:23)
[2022-01-20] MEDS: oxyCODONE HCL IR 5 MG TAB (IMMEDIATE RELEASE) PO SCH ×2 (08:43→12:22)
[2022-01-20] MEDS: ASPIRIN 81 MG ECTAB PO SCH (08:44)
[2022-01-20] MEDS: METOPROLOL SUCC 25MG EXT REL TAB PO SCH (08:44)
--- NOTE | 2022-01-20 09:18 | XRay Report ---
XR chest 2V PA/lateral HISTORY: 71 years-old Male Right basilar crackles, dyspnea acute shortness of breath COMPARISON: Chest radiograph 01/16/2022, CTA chest 01/01/2022. TECHNIQUE: PA and lateral views of the chest FINDINGS: Cardiac silhouette is enlarged. Mild pulmonary vascular congestion. No pneumothorax, large pleural ef fusion or overt pulmonary edema. Mild subsegmental bibasilar densities have progressed. Mild right he midiaphragmatic elevation. Healed chronic right-sided rib fractures. Cholecystectomy. Degenerative ch anges of the shoulders and spine. IMPRESSION: 1. Mild bibasilar opacities suggestive of atelectasis versus pneumonitis. 2. Cardiomegaly with pulmonary vascular congestion. ACT 112: Negative or not required by law. The above report was generated using voice recognition software. It may contain grammatical, syntax o r spelling errors. Electronically signed by: Louis Johnson M.D. 01/20/2022 9:17 AM
--- NOTE | 2022-01-20 12:37 | Cardiology Progress Note ---
Date of Service January 20, 2022 Assessment & Plan (1) Acute on chronic heart failure with preserved ejection fraction (HFpEF): (2) CKD (chronic kidney disease), stage III: (3) Cirrhosis: Plan 71-year-old patient admitted with acute on chronic heart failure with preserved ejection fraction. Recent echocardiogram personally reviewed. There is evidence of hypertensive heart disease and preserved LV systolic function. No significant valvular pathology. Will transition diuretic to furosemide 40 mg daily. Once renal function stabilized consider reduction or addition of spironolactone Will need BMP in next week Cardiology appointment in the next 2 to 4 weeks Admission and Anticipated Discharge Date Admission Date: January 17, 2022 Subjective Patient seen and examined, chart, medications, telemetry reviewed. Overall feels improved with otherwise only concern occasional dyspnea. No chest pains or tachypalpitations. Chest x-ray with mild atelectasis no volume overload by my exam Physical Exam Constitutional: well nourished; no acute distress Respiratory: no respiratory distress, no labored breathing and no retractions Auscultation: + crackles (Right base); no rhonchi and no wheezes Cardiovascular: Rate/Rhythm: regular rate and regular rhythm Heart Sounds: normal S1 and normal S2; no murmur Extremities: no edema Gastrointestinal (Abdomen): Inspection/Auscultation: abdomen normal to inspection; abdomen not distended Percussion/Palpation: abdomen soft; abdomen nontender and no guarding Neurologic: CN's II-XI intact bilaterally and moves all extremities; no focal motor deficits Psychiatric: A+Ox3, euthymic affect Results & Data ([facility]) Vital Signs (Past 12 Hours) Vital Signs Temp Pulse Pulse Resp BP BP Pulse Ox 01/20/22 12:19 36.6 C 61 16 127/48 L 97 01/20/22 09:00 01/20/22 07:00 59 L 01/20/22 07:18 37.2 C 61 18 137/47 L 92 01/20/22 02:40 36.8 C 55 L 18 147/55 H 94 O2 Del Method 01/20/22 12:19 Room Air 01/20/22 09:00 Room Air 01/20/22 07:00 01/20/22 07:18 Room Air 01/20/22 02:40 Room Air Laboratory Results Laboratory Results - last 24 hr 01/19/22 01/19/22 01/20/22 16:00 20:08 07:09 Sodium Potassium Chloride Carbon Dioxide Anion Gap BUN Creatinine Est Cr Clr Drug Dosing Est GFR ( Amer) Est GFR (Non-Af Amer) BUN/Creatinine Ratio Glucose POC Glucose 99 105 H 104 H Calcium 01/20/22 01/20/22 07:48 12:18 Sodium 136 Potassium 4.3 Chloride 102 Carbon Dioxide 27 Anion Gap 7 BUN 44 H Creatinine 1.66 H Est Cr Clr Drug Dosing 44.8 Est GFR ( Amer) 46.7 Est GFR (Non-Af Amer) 40.3 BUN/Creatinine Ratio 26.5 H Glucose 115 H POC Glucose 145 H Calcium 8.6
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
[2022-01-20] MEDS ORDERED: Flu Vaccine-High Dose (Fluzone-HD) PF 65+ 0.7mL SYR IM ONE (14:30)
== END 2022-01-20 16:11 | disposition home or self-care (01) | DRG 291 ==
LOC: ED 21:00 → 2E 01-17 00:56 → SUATTDRO 01-17 00:56 → 2E 01-17 02:00
DX: I50.33 Acute on chronic diastolic (congestive) heart failure; D64.9 Anemia, unspecified; K74.60 Unspecified cirrhosis of liver; E11.22 Type 2 diabetes mellitus with diabetic chronic kidney disease; Z87.891 Personal history of nicotine dependence; I13.0 Hypertensive heart and chronic kidney disease with heart failure and stage 1 through stage 4 chronic kidney disease, or unspecified chronic kidney disease; Z79.84 Long term (current) use of oral hypoglycemic drugs; N18.30 Chronic kidney disease, stage 3 unspecified; F11.20 Opioid dependence, uncomplicated; N17.9 Acute kidney failure, unspecified

== ENCOUNTER 2023-01-15 17:46 | Inpatient (IN) ==
--- NOTE | 2023-01-15 18:13 | Emergency Department Note ---
Impression & Plan Acute exacerbation of CHF (congestive heart failure), Shortness of breath, Bilateral edema of lower extremity, Recent weight gain, Hypomagnesemia ED Provider Note HISTORY OF PRESENT ILLNESS: Patient is a 72-year-old male presenting with increasing bilateral lower extremity edema and shortness of breath. Patient reports over the last 3 to 4 days he has been having increasing swelling of his bilateral lower extremities and progressively worsening shortness of breath both at rest and with exertion. He reports he takes 20 mg of torsemide twice daily, but today he has taken 20 mg x4. He reports good urine output. However, he has gained 9 pounds in the last week. Denies any chest pain. Denies any nausea or vomiting. Denies any cough or fevers. ROS: as above PHYSICAL EXAM: Constitutional: Patient appears in no acute distress. HENT: Head: Normocephalic and atraumatic. Eyes: EOMI, PERRL Mouth/Throat: Mucous membranes moist. Neck: Trachea midline. Neck supple. Cardiovascular: RRR, No murmurs, rubs or gallops. Intact distal pulses. Pulmonary/Chest: No respiratory distress. Breath sounds clear and equal bilaterally. No wheezes or rales. Abdominal: Abdomen soft, no tenderness, rebound or guarding. Musculoskeletal: No tenderness or deformity noted. +2 pitting edema the bilateral lower extremities extending into the mid tibia. Skin: Warm and dry. No rash, erythema, pallor or cyanosis Psychiatric: Appropriate mood and affect for situation. Neurological: Alert and keenly responsive. CN II-XII grossly intact, moving all extremities equally and fully. MDM: - Vitals signs showed hypertension. - History obtained via patient. Patient presents with bilateral lower extremity edema and shortness of breath. Patient reports over the last 3 to 4 days ago having increasing swelling of his bilateral lower extremities and progressively worsening shortness of breath with exertion and at rest. He takes 20 mg of Lasix twice daily, but states he is taking 4 tabs today secondary to his swelling and shortness of breath. He has had good urine output. He reports has gained 9 pounds in the last week. Denies any chest pain, nausea or vomiting or abdominal pain. - Chronic conditions affecting care: HFpEF; CKD; DM-2; cirrhosis; prostate cancer - Differential diagnoses include, but are not limited to: Congestive heart failure; acute coronary syndrome; COPD/asthma exacerbation; pulmonary edema; pulmonary embolism; pneumonia; pneumothorax; viral syndrome - Order placed for continuous cardiac monitoring. At this time, monitor showed rate of 67 bpm with normal sinus rhythm, per my interpretation. - External medical records reviewed. Cardiology progress note dated 01/20/2022 was reviewed. Per documentation, patient has a preserved ejection fraction. - EKG reviewed by myself showed normal sinus rhythm. Rate 74 bpm. QTc 468. No acute ischemic changes. - Laboratory workup interpreted by myself showed normal WBC; stable electrolytes other than slight hypomagnesemia (Mg 1.6); normal troponin; elevated BNP (900) - Patient given 1g IV magnesium in ER. - Did not give patient any more lasix, as he's already taken 80 mg PO today. - CXR showed pulmonary vascular congestion, per my interpretation. - Discussion was had with manager social responsibility about patient's case and need for admission - Hospitalist consulted for admission - [facility] ASSESSMENT AND PLAN: Diagnosis: CHF exacerbation; weight gain; lower extremity edema; shortness of breath; hypomagnesemia Plan: admit Past Med/Surg History Medical History Acute decompensated heart failure Anemia Cirrhosis CKD (chronic kidney disease), stage III DMII (diabetes mellitus, type 2) H/O endocarditis Hypertensive urgency Multiple rib fractures Opioid type dependence, unspecified Rib pain (09/10/10) Subacute bacterial endocarditis (09/24/10) Surgical History History of cholecystectomy Previous back surgery Social History Smoking Status: Never smoker Cigarettes Per Day: 15; Second Hand Exposure: No; Do You Dip or Chew Tobacco: No; Hx Alcohol Use: No Hx Substance Use: Yes Last Used Substance Other:: Today Preferred Language: Danish Communication Ability: Effective 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 Beliefs That Will Affect Care: None marital status: Current Living Situation: Spouse Feels Safe at Home: Yes Assistive Devices: None Allergies Allergies Allergy/AdvReac Type Severity Reaction Status Date / Time No Known Allergies Allergy Verified 01/02/22 00:49 Home Meds Home Medications Medication Instructions Recorded Confirmed metformin 500 mg tablet 500 mg PO BIDM 08/22/19 01/17/22 losartan 50 mg tablet 50 mg PO QAM 01/02/22 01/17/22 oxycodone 10 mg tablet 10 mg PO QID 01/02/22 01/17/22 trazodone 100 mg tablet 100 mg PO HS 01/02/22 01/17/22 Previous Rx's Medication Instructions Recorded furosemide 20 mg tablet 40 mg PO DAILY #60 tabs 01/20/22 Results & Data (ED) Vital Signs Vital Signs - 24 hr 01/15/23 17:47 01/15/23 18:38 Temperature 36.7 C Temperature Source Temporal Artery Scan Pulse Rate 66 75 Respiratory Rate 19 Respiratory Effort / Characteristics Non-Labored Respiratory Depth Normal Blood Pressure 164/66 H Blood Pressure Mean 98 Pulse Oximetry 94 Oxygen Delivery Method Room Air Sepsis Recent Fever Within 48 Hours No Sepsis New/Unexplained Change in Mental Status No Sepsis Action Taken by Nursing No Action Required Laboratory Data 01/15/23 18:28 01/15/23 18:28 Lab Results 01/15/23 01/15/23 01/15/23 Range/Units 18:28 18:28 18:28 WBC 8.93 (4.8-10.8) K/ul RBC 3.48 L (4.70-6.10) M/uL Hgb 11.7 L (14.0-18.0) g/dl Hct 34.0 L (42.0-52.0) % MCV 97.7 (80.0-100.0) fL MCH 33.6 (25.0-34.0) pg MCHC 34.4 (32.0-36.0) g/dL RDW Std Deviation 52.8 H (36.4-46.3) fL RDW Coeff of Marjorie 14.7 H (11.5-14.5) % Plt Count 153 (130-400) K/uL MPV 11.7 (9.4-12.4) fL Immature Gran % (Auto) 0.3 % Neut % (Auto) 60.8 % Lymph % (Auto) 25.5 % Tripp % (Auto) 10.0 % Eos % (Auto) 2.7 % Baso % (Auto) 0.7 % Neut # (Auto) 5.43 (1.40-6.50) K/uL Lymph # (Auto) 2.28 (1.20-3.40) K/uL Tripp # (Auto) 0.89 H (0.11-0.59) K/uL Eos # (Auto) 0.24 (0.00-0.50) K/uL Baso # (Auto) 0.06 (0.00-0.20) K/uL Immature Gran # (Auto) 0.03 (0.01-0.20) K/uL VBG pH (7.36-7.41) VBG pCO2 (38-50) mmHg VBG pO2 mmHg VBG HCO3 mmol/L VBG O2 Saturation % VBG Base Excess mEq/L Sodium 137 (136-145) mmol/L Potassium 3.9 (3.5-5.1) mmol/L Chloride 102 (98-107) mmol/L Carbon Dioxide 30 (21-32) mmol/L Anion Gap 5 (3-11) BUN 33 H (6-23) mg/dl Creatinine 1.55 H (0.6-1.4) mg/dl Est Cr Clr Drug Dosing 48.1 ml/min Est GFR ( Amer) 50.4 ml/min Est GFR (Non-Af Amer) 43.5 ml/min BUN/Creatinine Ratio 21.3 H (10-20) Glucose 104 H (70-99(Fasting)) mg/dl Calcium 8.7 (8.6-10.3) mg/dl Magnesium 1.6 L (1.7-2.4) mg/dl Total Bilirubin 1.1 H (0.2-1.0) mg/dl AST 48 H (13-39) U/L ALT 27 (7-52) U/L Alkaline Phosphatase 156 H (34-104) U/L Troponin I High Sens 9.9 (0-20) pg/ml B-Natriuretic Peptide 900 H (0-100) pg/ml Total Protein 7.7 (6.0-8.3) gm/dl Albumin 3.2 L (3.4-5.0) gm/dl Globulin 4.5 H (2.5-4.0) gm/dl Albumin/Globulin Ratio 0.7 L (0.9-2) 01/15/23 Range/Units 18:28 WBC (4.8-10.8) K/ul RBC (4.70-6.10) M/uL Hgb (14.0-18.0) g/dl Hct (42.0-52.0) % MCV (80.0-100.0) fL MCH (25.0-34.0) pg MCHC (32.0-36.0) g/dL RDW Std Deviation (36.4-46.3) fL RDW Coeff of Marjorie (11.5-14.5) % Plt Count (130-400) K/uL MPV (9.4-12.4) fL Immature Gran % (Auto) % Neut % (Auto) % Lymph % (Auto) % Tripp % (Auto) % Eos % (Auto) % Baso % (Auto) % Neut # (Auto) (1.40-6.50) K/uL Lymph # (Auto) (1.20-3.40) K/uL Tripp # (Auto) (0.11-0.59) K/uL Eos # (Auto) (0.00-0.50) K/uL Baso # (Auto) (0.00-0.20) K/uL Immature Gran # (Auto) (0.01-0.20) K/uL VBG pH 7.45 H (7.36-7.41) VBG pCO2 47 (38-50) mmHg VBG pO2 22 mmHg VBG HCO3 33 mmol/L VBG O2 Saturation < 60.0 % VBG Base Excess 7.5 mEq/L Sodium (136-145) mmol/L Potassium (3.5-5.1) mmol/L Chloride (98-107) mmol/L Carbon Dioxide (21-32) mmol/L Anion Gap (3-11) BUN (6-23) mg/dl Creatinine (0.6-1.4) mg/dl Est Cr Clr Drug Dosing ml/min Est GFR ( Amer) ml/min Est GFR (Non-Af Amer) ml/min BUN/Creatinine Ratio (10-20) Glucose (70-99(Fasting)) mg/dl Calcium (8.6-10.3) mg/dl Magnesium (1.7-2.4) mg/dl Total Bilirubin (0.2-1.0) mg/dl AST (13-39) U/L ALT (7-52) U/L Alkaline Phosphatase (34-104) U/L Troponin I High Sens (0-20) pg/ml B-Natriuretic Peptide (0-100) pg/ml Total Protein (6.0-8.3) gm/dl Albumin (3.4-5.0) gm/dl Globulin (2.5-4.0) gm/dl Albumin/Globulin Ratio (0.9-2) Imaging Data Radiologist's Impression: Chest X-Ray 01/15/23 17:58 XR chest 1V portable CLINICAL HISTORY: Dyspnea. COMPARISON STUDY: Chest CT January 01, 2022. Chest radiograph June 03, 2022. FINDINGS: Incidental note is made of several old right rib fractures. Cardiomegaly is unchanged. There is mild interstitial thickening. Trace right pleural effusion is present. This may be chronic. No consolidation to suggest pneumonia. No pneumothorax. IMPRESSION: Cardiomegaly with pulmonary vascular congestion. ACT 112: Negative or not required by law. Electronically signed by: Nemesio Gtz M.D. 01/15/2023 6:35 PM Discharge Plan Visit Data Chief Complaint: Shortness of Breath/Dyspnea Stated Complaint: POSSIBLE CHF, ANKLE SWELLING, ABD PAIN, SOB ED Provider: Carolyn Fontenot Discharge Problem: Acute exacerbation of CHF (congestive heart failure), Shortness of breath, Bilateral edema of lower extremity, Recent weight gain, Hypomagnesemia Forms Stand Alone Forms: My [employer] Prescriptions Prescriptions: No Action metformin 500 mg tablet 500 mg PO BIDM losartan 50 mg tablet 50 mg PO QAM trazodone 100 mg tablet 100 mg PO HS oxycodone 10 mg tablet 10 mg PO QID Rx Instructions: take in AM, NOON, PM & BEFORE HS furosemide 20 mg tablet 40 mg PO DAILY Qty: 60 0RF Referrals Referrals: Jerzy Glez MD [Primary Care Provider] -
--- NOTE | 2023-01-15 18:37 | XRay Report ---
XR chest 1V portable CLINICAL HISTORY: Dyspnea. COMPARISON STUDY: Chest CT January 01, 2022. Chest radiograph June 03, 2022. FINDINGS: Incidental note is made of several old right rib fractures. Cardiomegaly is unchanged. Ther e is mild interstitial thickening. Trace right pleural effusion is present. This may be chronic. No c onsolidation to suggest pneumonia. No pneumothorax. IMPRESSION: Cardiomegaly with pulmonary vascular congestion. ACT 112: Negative or not required by law. Electronically signed by: Nemesio Gtz M.D. 01/15/2023 6:35 PM
[2023-01-15 18:38] LABS: Base Excess VBG 7.5 mEq/L; HCO3 VBG 33 mmol/L; Oxygen Saturation VBG < 60.0 %; PCO2 VBG 47 mmHg (38-50); PO2 VBG 22 mmHg; pH VBG 7.45 (7.36-7.41)
[2023-01-15 18:45] LABS: Basophils # (auto) 0.06 K/uL (0.00-0.20); Basophils % (auto) 0.7 %; Eosinophils # (auto) 0.24 K/uL (0.00-0.50); Eosinophils % (auto) 2.7 %; Hemoglobin 11.7 g/dl (14.0-18.0); Immature Granulocytes # (auto) 0.03 K/uL (0.01-0.20); Immature Granulocytes % (auto) 0.3 %; Lymphocytes # (auto) 2.28 K/uL (1.20-3.40); Lymphocytes % (auto) 25.5 %; Mean Corpuscular Hemoglobin 33.6 pg (25.0-34.0); Mean Corpuscular Hgb Conc 34.4 g/dL (32.0-36.0); Mean Corpuscular Volume 97.7 fL (80.0-100.0); Mean Platelet Volume 11.7 fL (9.4-12.4); Monocytes # (auto) 0.89 K/uL (0.11-0.59); Neutrophils # (auto) 5.43 K/uL (1.40-6.50); Neutrophils % (auto) 60.8 %; Platelet Count 153 K/uL (130-400); RDW Coefficient of Variation 14.7 % (11.5-14.5); RDW Standard Deviation 52.8 fL (36.4-46.3); Red Blood Count 3.48 M/uL (4.70-6.10); White Blood Count 8.93 K/ul (4.8-10.8)
[2023-01-15 19:01] LABS: Albumin Globulin Ratio 0.7 (0.9-2); Albumin Level 3.2 gm/dl (3.4-5.0); BUN Creatinine Ratio 21.3 (10-20); Bilirubin,Total 1.1 mg/dl (0.2-1.0); Calcium 8.7 mg/dl (8.6-10.3); Creatinine Clr Calc Pharmacy 48.1 ml/min; Est GFR (African American) 50.4 ml/min; Est GFR (Non-African American) 43.5 ml/min; Globulin 4.5 gm/dl (2.5-4.0); Magnesium 1.6 mg/dl (1.7-2.4); Potassium 3.9 mmol/L (3.5-5.1); Total Protein 7.7 gm/dl (6.0-8.3)
[2023-01-15 19:08] LABS: Troponin I High Sensitivity 9.9 pg/ml (0-20)
[2023-01-15] MEDS ORDERED: MAGNESIUM SULFATE / D5W 1 GM/100 ML BAG IV STA (19:15)
[2023-01-15] MEDS ORDERED: ALBUMIN 25% 12.5 GM/50 ML VIAL IV ONE (19:37)
[2023-01-15] MEDS ORDERED: FUROSEMIDE 40 MG/4 ML VIAL IV ONE (19:37)
[2023-01-15] MEDS ORDERED: ACETAMINOPHEN 500 MG TAB PO STA (20:21)
[2023-01-15] MEDS ORDERED: POTASSIUM CHLORIDE CRTAB 20 MEQ TABCR PO STA (20:21)
[2023-01-15 20:38] LABS: Influenza A virus by PCR Negative (Neg); Influenza B virus by PCR Negative (Neg); RSV by PCR Negative (Neg); SARS CoV2 RNA(COVID-19) Ceph NEGATIVE (Negative)
[2023-01-15] MEDS ORDERED: METOPROLOL SUCC 25MG EXT REL TAB PO STA (21:19)
[2023-01-15] MEDS ORDERED: oxyCODONE HCL IR 5 MG TAB (IMMEDIATE RELEASE) PO STA (21:21)
--- NOTE | 2023-01-15 21:22 | History & Physical Report ---
Date of Service January 15, 2023 Assessment & Plan (1) Acute exacerbation of CHF (congestive heart failure): Plan: Decompensated heart failure History diastolic function ? Precipitated by persistently uncontrolled blood pressure valvular heart disease (mild MR/TR) CKD, at baseline DM2 on oral medications, well-controlled as of recent hemoglobin A1c of 5.8 this month Acute on chronic anemia, hemoglobin drop from baseline ? Possibly from CKD, patient denies overt GI/ bleed symptoms NAFLD cirrhosis, compensated except for fluid retention prostate cancer, patient contemplating CyberKnife radiation therapy by [facility] specialist chronic back pain on narcotics past tobacco abuse PCU Diuretic Rx Titrate BP meds Strict I/Os, daily weights, CHF education, fluid restriction Cardiology consult Re: Decompensated heart failure Anemia work-up, transfuse PRBC if hemoglobin less than 7 and or from symptomatic anemia Basal bolus insulin, ISS BG goal 1 10-1 40, carb count coverage DVT prophylaxis. Heparin subcu Full code Text document was generated using [email or web address] voice recognition software. It may contain grammatical or spelling errors. Kindly contact undersigned for clarification of any documentation item in question. History of Present Illness Chief Complaint: Leg swelling, shortness of breath Primary Care Provider: Jerzy Glez MD History obtained from patient and records. Medical history significant for chronic diastolic heart failure (EF 55 to 59 %, TTE 2022), valvular heart disease (mild MR/TR), hypertension, history endocarditis, DM2 on oral medications, CRI (baseline creatinine 1.3-1.5), chronic anemia (baseline hemoglobin 12-13), NAFLD cirrhosis, prostate cancer, chronic back pain on narcotics, past tobacco abuse. Last confinement last year for decompensated heart failure. Recent outpatient [facility] Cardiology visit 2 weeks ago. Home BP monitoring recommended. Recommendation to increase amlodipine dosing if SBP persistently above 140s as per note. Last few days, patient noted increased bilateral leg swelling and fluid retention. Patient had just come back from a yearly fishing trip with his buddies similar to confinement from last year. Shortness of breath worse on exertion. Abdominal distention without pain/fever/ chills. Denies black/bloody stools. Denies headache. Patient compliant with home medications. Denies dietary indiscretion or unusual stress. SBP 1 40-1 50s at home. Patient thinks he gained almost patient took 10 pounds in the last week. Patient took 4 extra tablets of home torsemide prior to coming to hospital [facility]. 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 Allergies Allergy/AdvReac Type Severity Reaction Status Date / Time No Known Allergies Allergy Verified 01/15/23 19:58 Home Medications Medication Instructions Recorded Confirmed Type metformin 500 mg tablet 500 mg PO BIDM 08/22/19 01/15/23 History oxycodone 10 mg tablet 10 mg PO QID 01/02/22 01/15/23 History trazodone 100 mg tablet 100 mg PO HS 01/02/22 01/15/23 History furosemide 20 mg tablet 40 mg PO DAILY #60 tabs 01/20/22 01/15/23 Rx amlodipine 5 mg tablet 2.5 mg PO DAILY 01/15/23 01/15/23 History metoprolol succinate 25 mg 25 mg PO DAILY 01/15/23 01/15/23 History tablet,extended release 24 hr Past Med/Surg History Medical History Acute decompensated heart failure Anemia Cirrhosis CKD (chronic kidney disease), stage III DMII (diabetes mellitus, type 2) H/O endocarditis Hypertensive urgency Multiple rib fractures Opioid type dependence, unspecified Rib pain (09/10/10) Subacute bacterial endocarditis (09/24/10) Surgical History History of cholecystectomy Previous back surgery Social History Smoking Status: Never smoker Cigarettes Per Day: 15; Second Hand Exposure: No; Do You Dip or Chew Tobacco: No; Tobacco Cessation Education Requested by Patient: No Hx Alcohol Use: No Hx Substance Use: No Preferred Language: Chinese Communication Ability: Effective Chicken Tender Required: No Beliefs That Will Affect Care: None marital status: Current Living Situation: Spouse Other Information That Helps Us Care for You: No Feels Safe at Home: Yes Safety Concerns: Feels Safe At This Time Assistive Devices: None Review of Systems Review of Systems: GENERAL: Comfortable, slightly anxious, pleasant, no respiratory distress SKIN: Pallor, warm HEENT: Pale palpebral conjunctivae, no ptosis, dry buccal mucosa NECK : Supple, no tenderness CHEST : Decreased breath sounds, no tenderness HEART : RRR, no obvious murmurs ABDOMEN: Some distention, nontender EXTREMITIES : Bilateral LE swelling, no LE tenderness, no other conspicuous deformities noted NEUROLOGIC : Coherent, no facial asymmetry, no other gross focality Results & Data Results & Data Vital Signs (Past 12 Hours) Vital Signs Temp Pulse Resp BP Pulse Ox O2 Del Method O2 Flow Rate 01/15/23 20:50 79 19 96 01/15/23 20:40 88 20 94 01/15/23 20:30 75 22 173/66 H 94 01/15/23 20:20 77 23 94 01/15/23 20:10 83 23 95 01/15/23 20:00 77 24 177/81 H 95 01/15/23 19:50 80 16 95 01/15/23 19:40 76 20 94 01/15/23 19:32 73 20 153/69 H 93 01/15/23 19:30 73 19 94 01/15/23 19:20 72 16 95 01/15/23 19:10 76 19 93 01/15/23 19:01 76 17 164/87 H 94 01/15/23 19:00 75 16 93 01/15/23 18:50 72 19 94 01/15/23 18:40 72 21 94 01/15/23 18:31 75 13 155/75 H 94 01/15/23 17:58 94 Room Air 0 01/15/23 17:58 72 19 94 Room Air 01/15/23 19:10 74 01/15/23 18:38 75 01/15/23 17:47 36.7 C 66 19 164/66 H 94 Room Air Laboratory Results Laboratory Results WBC 8.93 K/ul (4.8-10.8) 01/15/23 18:28 RBC 3.48 M/uL (4.70-6.10) L 01/15/23 18:28 Hgb 11.7 g/dl (14.0-18.0) L 01/15/23 18:28 Hct 34.0 % (42.0-52.0) L 01/15/23 18:28 MCV 97.7 fL (80.0-100.0) 01/15/23 18:28 MCH 33.6 pg (25.0-34.0) 01/15/23 18: MCHC 34.4 g/dL (32.0-36.0) 01/15/23 18 RDW Std Deviation 52.8 fL (36.4-46.3) H 01/15/23 18: RDW Coeff of Marjorie 14.7 % (11.5-14.5) H 01/15/23 18 Plt Count 153 K/uL (130-400) 01/15/23 18: MPV 11.7 fL (9.4-12.4) 01/15/23 18: Immature Gran % (Auto) 0.3 % 01/15/23 18: Neut % (Auto) 60.8 % 01/15/23 18: Lymph % (Auto) 25.5 % 01/15/23 18: [place] % (Auto) 10.0 % 01/15/23 18: Eos % (Auto) 2.7 % 01/15/23 18: Baso % (Auto) 0.7 % 01/15/23 18: Neut # (Auto) 5.43 K/uL (1.40-6.50) 01/15/23 18: Lymph # (Auto) 2.28 K/uL (1.20-3.40) 01/15/23 18: [place] # (Auto) 0.89 K/uL (0.11-0.59) H 01/15/23 18: Eos # (Auto) 0.24 K/uL (0.00-0.50) 01/15/23 18: Baso # (Auto) 0.06 K/uL (0.00-0.20) 01/15/23 18: Immature Gran # (Auto) 0.03 K/uL (0.01-0.20) 01/15/23 18: VBG pH 7.45 (7.36-7.41) H 01/15/23 18: VBG pCO2 47 mmHg (38-50) 01/15/23 18: VBG pO2 22 mmHg 01/15/23 18: VBG HCO3 33 mmol/L 01/15/23 18: VBG O2 Saturation < 60.0 % 01/15/23 18: VBG Base Excess 7.5 mEq/L 01/15/23 18: Sodium 137 mmol/L (136-145) 01/15/23 18: Potassium 3.9 mmol/L (3.5-5.1) 01/15/23 18: Chloride 102 mmol/L (98-107) 01/15/23 18: Carbon Dioxide 30 mmol/L (21-32) 01/15/23 18: Anion Gap 5 (3-11) 01/15/23 18: BUN 33 mg/dl (6-23) H 01/15/23 18: Creatinine 1.55 mg/dl (0.6-1.4) H 01/15/23 18: Est Cr Clr Drug Dosing 48.1 ml/min 01/15/23 18: Est GFR ( Amer) 50.4 ml/min 01/15/23 18: Est GFR (Non-Af Amer) 43.5 ml/min 01/15/23 18: BUN/Creatinine Ratio 21.3 (10-20) H 01/15/23 18: Glucose 104 mg/dl (70-99(Fasting)) H 01/15/23 18: Calcium 8.7 mg/dl (8.6-10.3) 01/15/23 18: Magnesium 1.6 mg/dl (1.7-2.4) L 01/15/23 18: Total Bilirubin 1.1 mg/dl (0.2-1.0) H 01/15/23 18: AST 48 U/L (13-39) H 01/15/23 18: ALT 27 U/L (7-52) 01/15/23 18: Alkaline Phosphatase 156 U/L (34-104) H 01/15/23 18: Troponin I High Sens 9.9 pg/ml (0-20) 01/15/23 18: B-Natriuretic Peptide 900 pg/ml (0-100) H 01/15/23 18: Total Protein 7.7 gm/dl (6.0-8.3) 01/15/23 18: Albumin 3.2 gm/dl (3.4-5.0) L 01/15/23 18:28 Globulin 4.5 gm/dl (2.5-4.0) H 01/15/23 18:28 Albumin/Globulin Ratio 0.7 (0.9-2) L 01/15/23 18:28 Lipase 20 U/L (11-82) 01/15/23 18:28 SARS-CoV-2 (PCR) NEGATIVE (Negative) 01/15/23 Unknown Influenza Type A (PCR) Negative (Neg) 01/15/23 Unknown Influenza Type B (PCR) Negative (Neg) 01/15/23 Unknown RSV (RT-PCR) Negative (Neg) 01/15/23 Unknown Impressions Chest X-Ray 01/15/23 17:58 XR chest 1V portable CLINICAL HISTORY: Dyspnea. COMPARISON STUDY: Chest CT January 01, 2022. Chest radiograph June 03, 2022. FINDINGS: Incidental note is made of several old right rib fractures. Cardiomegaly is unchanged. There is mild interstitial thickening. Trace right pleural effusion is present. This may be chronic. No consolidation to suggest pneumonia. No pneumothorax. IMPRESSION: Cardiomegaly with pulmonary vascular congestion. ACT 112: Negative or not required by law. Electronically signed by: Nemesio Gtz M.D. 01/15/2023 6:35 PM Diagnostic Findings EKG as per my interpretation : Rate 75, NSR, LAD, LAFB, LVH, no ischemia
--- NOTE | 2023-01-15 22:49 | Ultrasound Report ---
ULTRASOUND BILATERAL LOWER EXTREMITY VENOUS CLINICAL HISTORY: Lower extremity edema. COMPARISON STUDY: Bilateral lower extremity venous ultrasound dated 01/17/2022 TECHNIQUE: Real-time, grayscale, and color Doppler sonography of the deep veins of the right and left lower extremity was performed from the inguinal crease to the calf. Compression and augmentation wer e utilized. FINDINGS: There is no sonographic evidence of deep venous thrombosis identified in the right or left lower extremity. The common femoral, superficial femoral, and popliteal veins are patent and normally compressible bilaterally. The greater saphenous vein and the profunda femoris vein at the junction w ith the common femoral vein are clear in both legs. The visualized calf veins are patent bilaterally. IMPRESSION: There is no sonographic evidence of deep venous thrombosis identified in the right or lef t lower extremity. ACT 112: Negative or not required by law. Electronically signed by: Mg Allred M.D. 01/15/2023 10:47 PM
--- NOTE | 2023-01-15 22:51 | Ultrasound Report ---
ULTRASOUND ASCITES CHECK CLINICAL HISTORY: Abdominal distention. COMPARISON STUDY: Ascites check dated 05/15/2020. FINDINGS: Real-time grayscale sonography of all 4 quadrants of the abdomen is performed to assess for ascites. There is no sonographic evidence of abdominal ascites. IMPRESSION: No abdominal ascites is identified. Electronically signed by: Mg Allred M.D. 01/15/2023 10:50 PM
[2023-01-15 23:02] LABS: Appearance Urine Clear (Clear); Bilirubin Urine Negative (Negative); Blood Urine Negative (Negative); Color Urine Yellow; Glucose Urine UA Negative (Negative); Ketones Urine Negative (Negative); Leukocyte Esterase Urine Negative (Negative); Nitrite Urine Negative (Negative); Protein Urine 1+ (Negative); Specific Gravity Urine 1.015 (1.000-1.030); Urobilinogen Urine Positive (Negative); pH Urine 7.5 (4.5-7.5)
[2023-01-15] MEDS ORDERED: oxyCODONE HCL IR 5 MG TAB (IMMEDIATE RELEASE) PO PRN (23:11)
[2023-01-15] MEDS ORDERED: CARBOHYDRATES FOR HYPOGLYCEMIA PO PRN (23:11)
[2023-01-15] MEDS ORDERED: NITROGLYCERIN SL 0.4 MG/TAB TAB SL PRN (23:11)
[2023-01-15] MEDS ORDERED: HYDROmorphone INJ 0.5 MG/0.5 ML SYR IV PRN (23:11)
[2023-01-15] MEDS ORDERED: DEXTROSE 50% 50 ML SYRINGE IV PRN (23:11)
[2023-01-15] MEDS ORDERED: GLUCOSE 40% GEL 15 GM TUBE PO PRN (23:11)
[2023-01-15] MEDS ORDERED: ACETAMINOPHEN 500 MG TAB PO PRN (23:11)
[2023-01-15] MEDS ORDERED: GLUCOSE 10 TAB/TUBE PO PRN (23:11)
[2023-01-15] MEDS ORDERED: GLUCAGON FOR INJ 1 MG VIAL SQ PRN (23:11)
[2023-01-15 23:15] LABS: Bacteria Urine Negative (Negative); Epithelial Cell Urine 0-5 /lpf (0-5); RBC Urine 0-4 /hpf (0-4); WBC Urine 0-5 /hpf (0-5)
[2023-01-15 23:38] LABS: Hematocrit (blood only) 32.5 % (42.0-52.0); Hemoglobin 11.2 g/dl (14.0-18.0)
[2023-01-16] MEDS: INSULIN ASPART PER UNIT CHARGE SC SCH ×5 (00:12→21:36)
[2023-01-16] MEDS: HEPARIN SOD 5,000 UNIT/0.5 ML VIAL SQ SCH ×4 (00:13→20:38)
[2023-01-16] MEDS ORDERED: ALBUT/IPRATROP 3MG/0.5MG NEB 3 ML VIAL NEB STA (05:39)
[2023-01-16 06:40] LABS: Basophils # (auto) 0.07 K/uL (0.00-0.20); Basophils % (auto) 0.8 %; Eosinophils # (auto) 0.33 K/uL (0.00-0.50); Eosinophils % (auto) 3.5 %; Hematocrit (blood only) 31.2 % (42.0-52.0); Hemoglobin 10.9 g/dl (14.0-18.0); Immature Granulocytes # (auto) 0.02 K/uL (0.01-0.20); Immature Granulocytes % (auto) 0.2 %; Lymphocytes # (auto) 2.15 K/uL (1.20-3.40); Lymphocytes % (auto) 23.1 %; Mean Corpuscular Hemoglobin 33.4 pg (25.0-34.0); Mean Corpuscular Hgb Conc 34.9 g/dL (32.0-36.0); Mean Corpuscular Volume 95.7 fL (80.0-100.0); Mean Platelet Volume 12.3 fL (9.4-12.4); Monocytes # (auto) 0.88 K/uL (0.11-0.59); Monocytes % (auto) 9.5 %; Neutrophils # (auto) 5.86 K/uL (1.40-6.50); Neutrophils % (auto) 62.9 %; Platelet Count 156 K/uL (130-400); RDW Coefficient of Variation 14.7 % (11.5-14.5); RDW Standard Deviation 51.9 fL (36.4-46.3); Red Blood Count 3.26 M/uL (4.70-6.10); Reticulocyte % 1.5 % (0.5-2.0); Reticulocytes # 0.05 10^6/uL (0.02-0.10); White Blood Count 9.31 K/ul (4.8-10.8)
[2023-01-16 07:04] LABS: Calcium 8.6 mg/dl (8.6-10.3); Creatinine Clr Calc Pharmacy 57.8 ml/min; Est GFR (African American) 64.1 ml/min; Est GFR (Non-African American) 55.3 ml/min; Magnesium 1.8 mg/dl (1.7-2.4); Potassium 3.7 mmol/L (3.5-5.1)
[2023-01-16] MEDS ORDERED: FUROSEMIDE 40 MG/4 ML VIAL IV ONE (07:15)
[2023-01-16] MEDS ORDERED: ALBUMIN 25% 12.5 GM/50 ML VIAL IV ONE (07:15)
[2023-01-16 07:16] LABS: Folate (Folic Acid),Ser orPlas 9.67 ng/ml (>5.38)
[2023-01-16 07:23] LABS: Ferritin 331.3 ng/ml (8-388)
[2023-01-16] MEDS: oxyCODONE HCL IR 5 MG TAB (IMMEDIATE RELEASE) PO SCH ×4 (08:47→20:38)
--- NOTE | 2023-01-16 08:49 | XRay Report ---
XR chest 1V portable CLINICAL HISTORY: sob TECHNIQUE: Single frontal radiograph of the chest was obtained. Comparison: Comparison is made to chest radiograph 01/15/2023 FINDINGS: No lines and tubes are seen. Cardiomegaly is noted. The aortic arch is calcified. Prominence and ceph alization of the vasculature is seen. Minimal atelectasis is in the left lower lung. No pleural effus ion or pneumothorax. IMPRESSION: Cardiomegaly and mild pulmonary edema. ACT 112: Negative or not required by law. Electronically signed by: Alexis Rice M.D. 01/16/2023 8:48 AM
[2023-01-16] MEDS ORDERED: METOPROLOL SUCC 25MG EXT REL TAB PO SCH (09:00)
[2023-01-16] MEDS ORDERED: amLODIPine BESYLATE 5 MG TAB PO SCH (09:00)
[2023-01-16] MEDS ORDERED: ONDANSETRON INJ 2 MG/ML 2 ML VIAL IV PRN (10:50)
--- NOTE | 2023-01-16 13:13 | Cardiology Consultation ---
Date of Consultation January 16, 2023 Assessment & Plan (1) Acute exacerbation of CHF (congestive heart failure): (2) Bilateral edema of lower extremity: (3) Acute on chronic heart failure with preserved ejection fraction (HFpEF): Plan Presenting CHF signs and symptoms have essentially resolved following administration of 2 doses of 60 mg IV furosemide. OK to discharge from a cardiac standpoint. Recommend titration of furosemide to 40 mg/day Consider addition of an SGLT2 inhibitor, Jardiance. Supervising Physician Co-Signing Physician Notes I agree with the note above as well as the assessment and plan as per CRISTHIAN Kerr. 72 year old man who presented with acute exacerbation of HFpEF. Back to baseline with 60mg IV lasix x 2. Recommended increasing lasix to 40mg qday. Add Jardiance vs Farxiga. I provided 75 min of care to the patient which includes physical exam, discussion with the PA, as well as chart review and counseling the patient in regards to HFpEF. Reynaldo Archuleta MD History of Present Illness Reason for Consultation: CHF Requesting Physician: Dr. Wong Attending Physician: Dr. Jaquez History of Present Illness Mr. Delvis Munoz is a 72 year old male with history of hypertensive heart disease, HFpEF, stage III CKD, hepatic cirrhosis Admitted with acute on chronic shortness of breath, lower extremity edema, weight gain Typically takes furosemide 20 mg/day at home Received 60 mg IV in ER and 60 mg IV on admission with significant improvement, resolution. Feels essentially back to baseline. No chest pain, palpitations, shortness of breath, orthopnea, or PND. Edema has significantly improved. Allergies Allergy/AdvReac Type Severity Reaction Status Date / Time No Known Allergies Allergy Verified 01/15/23 19:58 Home Medications Medication Instructions Recorded Confirmed Type metformin 500 mg tablet 500 mg PO BIDM 08/22/19 01/15/23 History oxycodone 10 mg tablet 10 mg PO QID 01/02/22 01/15/23 History trazodone 100 mg tablet 100 mg PO HS 01/02/22 01/15/23 History furosemide 20 mg tablet 40 mg PO DAILY #60 tabs 01/20/22 01/15/23 Rx amlodipine 5 mg tablet 2.5 mg PO DAILY 01/15/23 01/15/23 History metoprolol succinate 25 mg 25 mg PO DAILY 01/15/23 01/15/23 History tablet,extended release 24 hr Patient History Medical History Acute decompensated heart failure Anemia Cirrhosis CKD (chronic kidney disease), stage III DMII (diabetes mellitus, type 2) H/O endocarditis Hypertensive urgency Multiple rib fractures Opioid type dependence, unspecified Rib pain (09/10/10) Subacute bacterial endocarditis (09/24/10) Surgical History History of cholecystectomy Previous back surgery Social History Smoking Status: Never smoker Cigarettes Per Day: 15; Second Hand Exposure: No; Do You Dip or Chew Tobacco: No; Tobacco Cessation Education Requested by Patient: No Hx Alcohol Use: No Hx Substance Use: No Preferred Language: Malay Communication Ability: Effective Child Care Education Coordinator Required: No Beliefs That Will Affect Care: None marital status: Current Living Situation: Spouse Other Information That Helps Us Care for You: No Feels Safe at Home: Yes Safety Concerns: Feels Safe At This Time Assistive Devices: None Review of Systems Review of Systems: Complete Review of Systems is as stated above, negative, or noncontributory. Physical Exam Physical Exam: Lay flat General: A&Ox3. NAD. HENT: Normocephalic. Atraumatic. Eyes: PER. Conjunctiva pink, sclera clear. Neck: No carotid bruits. No JVD. Heart: Regular at 70 bpm. Occasional ectopic beat. No murmur. No rub. Lungs: Clear to auscultation. Abdomen: +BS. Soft. Nontender. No masses or organomegaly. Extremities: No clubbing, cyanosis, or significant edema. Limited neurological examination is without focal deficits. Pulses: radial=2/4, posterior tibial=2/4. Results & Data Vital Signs (Past 12 Hours) Vital Signs Temp Pulse Resp BP BP Pulse Ox O2 Del Method 01/16/23 11:35 36.7 C 59 L 18 119/56 L 96 Room Air 01/16/23 11:25 Room Air 01/16/23 07:05 36.9 C 75 19 154/50 H 92 Room Air 01/16/23 05:25 75 93 Room Air 01/16/23 03:00 37.1 C 65 16 133/58 L 94 Room Air Laboratory Results Cardiac Enzymes 01/15/23 01/15/23 Range/Units 18:28 18:28 AST 48 H (13-39) U/L Troponin I High Sens 9.9 (0-20) pg/ml B-Natriuretic Peptide 900 H (0-100) pg/ml Coagulation 01/15/23 Range/Units 18:28 B-Natriuretic Peptide 900 H (0-100) pg/ml CBC 01/15/23 01/15/23 01/16/23 Range/Units 18:28 22:40 05:38 WBC 8.93 9.31 (4.8-10.8) K/ul RBC 3.48 L 3.26 L (4.70-6.10) M/uL Hgb 11.7 L 11.2 L 10.9 L (14.0-18.0) g/dl Hct 34.0 L 32.5 L 31.2 L (42.0-52.0) % Plt Count 153 156 (130-400) K/uL Neut # (Auto) 5.43 5.86 (1.40-6.50) K/uL Lymph # (Auto) 2.28 2.15 (1.20-3.40) K/uL [place] # (Auto) 0.89 H 0.88 H (0.11-0.59) K/uL Eos # (Auto) 0.24 0.33 (0.00-0.50) K/uL Baso # (Auto) 0.06 0.07 (0.00-0.20) K/uL Comprehensive Metabolic Panel 01/15/23 01/16/23 Range/Units 18:28 05:38 Sodium 137 139 (136-145) mmol/L Potassium 3.9 3.7 (3.5-5.1) mmol/L Chloride 102 106 (98-107) mmol/L Carbon Dioxide 30 26 (21-32) mmol/L BUN 33 H 28 H (6-23) mg/dl Creatinine 1.55 H 1.27 (0.6-1.4) mg/dl Glucose 104 H 106 H (70-99(Fasting)) mg/dl Calcium 8.7 8.6 (8.6-10.3) mg/dl AST 48 H (13-39) U/L ALT 27 (7-52) U/L Alkaline Phosphatase 156 H (34-104) U/L Total Protein 7.7 (6.0-8.3) gm/dl Albumin 3.2 L (3.4-5.0) gm/dl Intake and Output 01/15/23 01/16/23 01/16/23 22:59 06:59 14:59 Intake Total 460 / 760 300 / 760 50 / 50 Output Total 320 / 995 675 / 995 500 / 500 Balance 140 / -235 -375 / -235 -450 / -450 Intake: IV 100 / 150 50 / 150 50 / 50 Albumin 25% 12.5 gm In 50 ml @ 50 / 50 50 / 50 50 mls/hr IV ONE ONE Rx#: [id number] Magnesium Sulfate / D5w 1 gm In 100 / 100 100 ml @ 100 mls/hr IV NOW STA Rx#:[id number] Oral 360 / 610 250 / 610 Output: Urine 320 / 995 675 / 995 500 / 500 Other: Weight 93.7 kg 90.8 kg Weight Measurement Method Chair Scale Standing Scale Diagnostic Findings April 02, 2022 TTE Interpretation Summary: The qualitative LV ejection fraction is 55-59% (normal). The LV wall thickness is mildly increased (concentric). The left ventricular wall motion is normal. Mild mitral regurgitation is present. The left atrium is mildly enlarged (35-41 ml/m^2). The left ventricular diastolic function is mildly abnormal (grade I). Mild tricuspid regurgitation is present. Normal IVC size and collapsability with sniff indicates a normal right atrial pressure of 3 mmHg. The estimated pulmonary artery systolic pressure is 36 mm Hg. Telemetry: Sinus throughout with an occasional PVC
--- NOTE | 2023-01-16 15:22 | Hospitalist Progress Note ---
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) Received Lasix in the emergency room and has had enough diuresis Appreciate cardiology input and recommendation He has been feeling a lot better Would like to to observe tonight and may be discharged tomorrow Persistently uncontrolled blood pressure Medication has been changed recently Blood pressure remained stable CKD, at baseline Creatinine remains stable at 1.27 and electrolytes are normal DM2 on oral medications, well-controlled as of recent hemoglobin A1c of 5.8 this month Basal bolus insulin, ISS BG goal 1 10-1 40, carb count coverage Blood sugar are normal Acute on chronic anemia, hemoglobin drop from baseline Possibly from CKD, patient denies overt GI/ bleed symptoms Anemia work-up, transfuse PRBC if hemoglobin less than 7 and or from symptomatic anemia NAFLD cirrhosis, compensated except for fluid retention No acute issues History of prostate cancer, patient contemplating CyberKnife radiation therapy by [facility] specialist Chronic back pain on narcotics Past tobacco abuse DVT prophylaxis. Heparin subcu Full code Admission and Anticipated Discharge Date Admission Date: January 15, 2023 Subjective 01/16/2023 The patient was seen and examined in telemetry unit He was admitted with bilateral leg swelling and shortness of breath with exertion Has been feeling better following diuresis Denies any chest pain and her palpitation and no shortness of breath at rest Review of Systems Review of Systems: All systems reviewed and are unremarkable except as noted below Respiratory: No shortness of breath at rest Physical Exam Physical Exam: Lying in bed comfortably Constitutional: well developed, well nourished and + obese; not ill appearing Eyes: PERRL, conjunctivae normal, anicteric sclerae Neck: trachea midline, no thyromegaly Respiratory: no respiratory distress Auscultation: + diminished lung sounds and + crackles (Minimal crackles at the bases) Cardiovascular: Rate/Rhythm: regular rate and regular rhythm; not tachycardic Heart Sounds: normal S1, normal S2 and + murmur Extremities: + edema (1+ edema bilateral) Gastrointestinal (Abdomen): Inspection/Auscultation: normal bowel sounds; abdo men not distended Percussion/Palpation: abdomen soft; abdomen nontender Musculoskeletal: No acute arthritis involving any of the joint Neurologic: Alert, awake and oriented x3. No focal sensory and/or motor deficit appreciated Psychiatric: A+Ox3, euthymic affect Lymphatic: no cervical or axillary lymphadenopathy Results & Data Results & Data Vital Signs (Past 12 Hours) Vital Signs Temp Pulse Resp BP Pulse Ox O2 Del Method 01/16/23 11:35 36.7 C 59 L 18 119/56 L 96 Room Air 01/16/23 11:25 Room Air 01/16/23 07:05 36.9 C 75 19 154/50 H 92 Room Air 01/16/23 05:25 75 93 Room Air Laboratory Results Short CBC 01/15/23 01/15/23 01/16/23 Range/Units 18:28 22:40 05:38 WBC 8.93 9.31 (4.8-10.8) K/ul Hgb 11.7 L 11.2 L 10.9 L (14.0-18.0) g/dl Hct 34.0 L 32.5 L 31.2 L (42.0-52.0) % Plt Count 153 156 (130-400) K/uL BMP 01/15/23 01/16/23 18:28 05:38 Sodium 137 139 Potassium 3.9 3.7 Chloride 102 106 Carbon Dioxide 30 26 BUN 33 H 28 H Creatinine 1.55 H 1.27 Glucose 104 H 106 H Calcium 8.7 8.6 Liver Function 01/15/23 Range/Units 18:28 Total Bilirubin 1.1 H (0.2-1.0) mg/dl AST 48 H (13-39) U/L ALT 27 (7-52) U/L Alkaline Phosphatase 156 H (34-104) U/L Albumin 3.2 L (3.4-5.0) gm/dl Urine 01/15/23 Range/Units 22:52 Urine Color Yellow Urine Appearance Clear (Clear) Urine pH 7.5 (4.5-7.5) Ur Specific [place] 1.015 (1.000-1.030) Urine Protein 1+ H (Negative) Urine Glucose (UA) Negative (Negative) Medications Administered Current Inpatient Medications Acetaminophen (Acetaminophen 500 Mg Tab) 500 mg PO Q6H PRN PRN Reason: fever/pain Stop: 02/14/23 23:10 Amlodipine Besylate (Amlodipine Besylate 5 Mg Tab) 5 mg PO DAILY KARLO Stop: 02/16/23 08:59 Dextrose (Dextrose 50% 50 Ml Syringe) 25 - 50 ml IV UD PRN; Protocol PRN Reason: Hypoglycemia Protocol Stop: 02/14/23 23:10 Glucagon (Glucagon For Inj 1 Mg Vial) 1 mg SQ UD PRN; Protocol PRN Reason: Hypoglycemia Protocol Stop: 02/14/23 23:10 Glucose (Glucose 10 Tab/Tube) 4 - 8 tab PO UD PRN; Protocol PRN Reason: Hypoglycemia Treatment Stop: 02/14/23 23:10 Glucose (Glucose 40% Gel 15 Gm Tube) 15 - 30 gm PO UD PRN; Protocol PRN Reason: Hypoglycemia Protocol Stop: 02/14/23 23:10 Heparin Sodium (Porcine) (Heparin Sod 5,000 Unit/0.5 Ml Vial) 5,000 units SQ Q8 KARLO Stop: 02/14/23 23:10 Last Admin: 01/16/23 06:38 Dose: 5,000 units Hydromorphone HCl (Hydromorphone Inj 0.5 Mg/0.5 Ml Syr) 0.5 mg IV Q6H PRN PRN Reason: Pain Stop: 01/29/23 23:10 Insulin Aspart (Insulin Aspart Per Unit Charge) 0 units SC ACHS KARLO Stop: 02/14/23 23:10 Last Admin: 01/16/23 12:28 Dose: 2 units Metoprolol Succinate (Metoprolol Succ 25mg Ext Rel Tab) 25 mg PO DAILY [facility] Stop: 02/16/23 08:59 Miscellaneous (Carbohydrates For Hypoglycemia ) 15 - 30 gm PO UD PRN PRN Reason: Hypoglycemia Protocol Stop: 02/14/23 23:10 Nitroglycerin (Nitroglycerin Sl 0.4 Mg/Tab Tab) 0.4 mg SL Q5M PRN PRN Reason: Chest Pain Stop: 02/14/23 23:10 Ondansetron HCl (Ondansetron Inj 2 Mg/Ml 2 Ml Vial) 4 mg IV Q6H PRN PRN Reason: Nausea And Vomiting Stop: 02/15/23 10:49 Oxycodone HCl (Oxycodone Hcl Ir 5 Mg Tab (Immediate Release)) 10 mg PO QID [facility] Stop: 01/30/23 08:59 Last Admin: 01/16/23 12:24 Dose: 10 mg Oxycodone HCl (Oxycodone Hcl Ir 5 Mg Tab (Immediate Release)) 5 mg PO Q8H PRN PRN Reason: Pain Stop: 01/29/23 23:10 Trazodone HCl (Trazodone Hcl 100 Mg Tab) 100 mg PO HS KARLO Stop: 02/15/23 20:59
[2023-01-16] MEDS ORDERED: traZODone HCL 100 MG TAB PO SCH (21:00)
[2023-01-17] MEDS: HEPARIN SOD 5,000 UNIT/0.5 ML VIAL SQ SCH (06:04)
[2023-01-17 07:11] LABS: Basophils # (auto) 0.07 K/uL (0.00-0.20); Basophils % (auto) 0.8 %; Eosinophils % (auto) 4.8 %; Hematocrit (blood only) 32.3 % (42.0-52.0); Immature Granulocytes # (auto) 0.02 K/uL (0.01-0.20); Immature Granulocytes % (auto) 0.2 %; Lymphocytes # (auto) 2.65 K/uL (1.20-3.40); Lymphocytes % (auto) 31.5 %; Mean Corpuscular Hemoglobin 33.6 pg (25.0-34.0); Mean Corpuscular Hgb Conc 34.1 g/dL (32.0-36.0); Mean Corpuscular Volume 98.8 fL (80.0-100.0); Mean Platelet Volume 12.1 fL (9.4-12.4); Monocytes # (auto) 0.84 K/uL (0.11-0.59); Neutrophils # (auto) 4.43 K/uL (1.40-6.50); Neutrophils % (auto) 52.7 %; Platelet Count 146 K/uL (130-400); RDW Coefficient of Variation 14.9 % (11.5-14.5); Red Blood Count 3.27 M/uL (4.70-6.10); White Blood Count 8.41 K/ul (4.8-10.8)
[2023-01-17 07:25] LABS: Albumin Level 2.9 gm/dl (3.4-5.0); BUN Creatinine Ratio 20.3 (10-20); Bilirubin Direct 0.5 mg/dl (0-0.2); Bilirubin,Total 1.7 mg/dl (0.2-1.0); Calcium 8.4 mg/dl (8.6-10.3); Creatinine Clr Calc Pharmacy 50.9 ml/min; Est GFR (African American) 55.5 ml/min; Est GFR (Non-African American) 47.9 ml/min; Magnesium 1.9 mg/dl (1.7-2.4); Potassium 3.6 mmol/L (3.5-5.1); Total Protein 6.8 gm/dl (6.0-8.3)
[2023-01-17] MEDS: oxyCODONE HCL IR 5 MG TAB (IMMEDIATE RELEASE) PO SCH ×2 (08:09→12:11)
[2023-01-17] MEDS: INSULIN ASPART PER UNIT CHARGE SC SCH ×2 (08:15→12:12)
[2023-01-17] MEDS ORDERED: METOPROLOL SUCC 25MG EXT REL TAB PO SCH (09:00)
[2023-01-17] MEDS ORDERED: amLODIPine BESYLATE 5 MG TAB PO SCH (09:00)
--- NOTE | 2023-01-17 12:18 | Hospitalist Progress Note ---
Date of Service January 17, 2023 Assessment & Plan (1) Acute exacerbation of CHF (congestive heart failure): Plan: Decompensated heart failure History diastolic function and valvular heart disease (mild MR/TR) Received Lasix in the emergency room and has had enough diuresis Appreciate cardiology input and recommendation He has been feeling a lot better Would like to to observe tonight and may be discharged tomorrow Remains medically stable without any cardiac symptoms Remains ambulant without any shortness of breath He will be discharged home this afternoon Persistently uncontrolled blood pressure Medication has been changed recently Blood pressure remained stable Blood pressure remains controlled CKD, at baseline Creatinine remains stable at 1.27 and electrolytes are normal Creatinine is slightly up at 1.43 but remains stable DM2 on oral medications, well-controlled as of recent hemoglobin A1c of 5.8 this month Basal bolus insulin, ISS BG goal 1 10-1 40, carb count coverage Blood sugar are normal Acute on chronic anemia, hemoglobin drop from baseline Possibly from CKD, patient denies overt GI/ bleed symptoms Anemia work-up, transfuse PRBC if hemoglobin less than 7 and or from symptomatic anemia Hemoglobin remains stable at 11.0 as of 01/17/2023 NAFLD cirrhosis, compensated except for fluid retention No acute issues History of prostate cancer, patient contemplating CyberKnife radiation therapy by [facility] specialist Chronic back pain on narcotics Past tobacco abuse DVT prophylaxis. Heparin subcu Full code Will be discharged home this afternoon Admission and Anticipated Discharge Date Admission Date: January 15, 2023 Subjective 01/16/2023 The patient was seen and examined in telemetry unit He was admitted with bilateral leg swelling and shortness of breath with exertion Has been feeling better following diuresis Denies any chest pain and her palpitation and no shortness of breath at rest 01/17/2023 The patient was seen and examined in telemetry unit He has been feeling much better and wants to go home Denies any chest pain, palpitation or shortness of breath He has been ambulating in the room and in the hallway without any issues Review of Systems Review of Systems: All systems reviewed and are unremarkable except as noted below Respiratory: No shortness of breath at rest Physical Exam Physical Exam: Lying in bed comfortably Constitutional: well developed, well nourished and + obese; not ill appearing Eyes: PERRL, conjunctivae normal, anicteric sclerae Neck: trachea midline, no thyromegaly Respiratory: no respiratory distress Auscultation: + diminished lung sounds and + crackles (Minimal crackles at the bases) Cardiovascular: Rate/Rhythm: regular rate and regular rhythm; not tachycardic Heart Sounds: normal S1, normal S2 and + murmur Extremities: + edema (1+ edema bilateral) Gastrointestinal (Abdomen): Inspection/Auscultation: normal bowel sounds; abdomen not distended Percussion/Palpation: abdomen soft; abdomen nontender Musculoskeletal: All systems reviewed and are unremarkable except as noted below Neurologic: normal touch/pain/proprioception and moves all extremities; no focal motor deficits Alert, awake and oriented x3. No focal sensory or motor deficit appreciated Psychiatric: A+Ox3, euthymic affect Lymphatic: no cervical or axillary lymphadenopathy Results & Data Results & Data Vital Signs (Past 12 Hours) Vital Signs Temp Pulse Resp BP Pulse Ox O2 Del Method 01/17/23 12:08 37.0 C 60 18 142/64 H 96 Room Air 01/17/23 08:17 37.0 C 67 18 149/71 H 92 Room Air 01/17/23 03:00 36.7 C 61 18 134/60 96 Room Air Laboratory Results Short CBC 01/17/23 Range/Units 06:30 WBC 8.41 (4.8-10.8) K/ul Hgb 11.0 L (14.0-18.0) g/dl Hct 32.3 L (42.0-52.0) % Plt Count 146 (130-400) K/uL BMP 01/17/23 06:30 Sodium 139 Potassium 3.6 Chloride 107 Carbon Dioxide 28 BUN 29 H Creatinine 1.43 H Glucose 109 H Calcium 8.4 L Liver Function 01/17/23 Range/Units 06:30 Total Bilirubin 1.7 H D (0.2-1.0) mg/dl Direct Bilirubin 0.5 H (0-0.2) mg/dl AST 37 (13-39) U/L ALT 19 (7-52) U/L Alkaline Phosphatase 121 H (34-104) U/L Albumin 2.9 L (3.4-5.0) gm/dl Medications Administered Current Inpatient Medications Acetaminophen (Acetaminophen 500 Mg Tab) 500 mg PO Q6H PRN PRN Reason: fever/pain Stop: 02/14/23 23:10 Amlodipine Besylate (Amlodipine Besylate 5 Mg Tab) 5 mg PO DAILY KARLO Stop: 02/16/23 08:59 Last Admin: 01/17/23 08:08 Dose: 5 mg Dextrose (Dextrose 50% 50 Ml Syringe) 25 - 50 ml IV UD PRN; Protocol PRN Reason: Hypoglycemia Protocol Stop: 02/14/23 23:10 Glucagon (Glucagon For Inj 1 Mg Vial) 1 mg SQ UD PRN; Protocol PRN Reason: Hypoglycemia Protocol Stop: 02/14/23 23:10 Glucose (Glucose 10 Tab/Tube) 4 - 8 tab PO UD PRN; Protocol PRN Reason: Hypoglycemia Treatment Stop: 02/14/23 23:10 Glucose (Glucose 40% Gel 15 Gm Tube) 15 - 30 gm PO UD PRN; Protocol PRN Reason: Hypoglycemia Protocol Stop: 02/14/23 23:10 Heparin Sodium (Porcine) (Heparin Sod 5,000 Unit/0.5 Ml Vial) 5,000 units SQ Q8 KARLO Stop: 02/14/23 23:10 Last Admin: 01/17/23 06:04 Dose: 5,000 units Hydromorphone HCl (Hydromorphone Inj 0.5 Mg/0.5 Ml Syr) 0.5 mg IV Q6H PRN PRN Reason: Pain Stop: 01/29/23 23:10 Insulin Aspart (Insulin Aspart Per Unit Charge) 0 units SC ACHS PENDING SALE TO [facility] Stop: 02/14/23 23:10 Last Admin: 01/17/23 12:12 Dose: 4 units Metoprolol Succinate (Metoprolol Succ 25mg Ext Rel Tab) 25 mg PO DAILY PENDING SALE TO [facility] Stop: 02/16/23 08:59 Last Admin: 01/17/23 08:09 Dose: 25 mg Miscellaneous (Carbohydrates For Hypoglycemia ) 15 - 30 gm PO UD PRN PRN Reason: Hypoglycemia Protocol Stop: 02/14/23 23:10 Nitroglycerin (Nitroglycerin Sl 0.4 Mg/Tab Tab) 0.4 mg SL Q5M PRN PRN Reason: Chest Pain Stop: 02/14/23 23:10 Ondansetron HCl (Ondansetron Inj 2 Mg/Ml 2 Ml Vial) 4 mg IV Q6H PRN PRN Reason: Nausea And Vomiting Stop: 02/15/23 10:49 Oxycodone HCl (Oxycodone Hcl Ir 5 Mg Tab (Immediate Release)) 10 mg PO QID PENDING SALE TO [facility] Stop: 01/30/23 08:59 Last Admin: 01/17/23 12:11 Dose: 10 mg Oxycodone HCl (Oxycodone Hcl Ir 5 Mg Tab (Immediate Release)) 5 mg PO Q8H PRN PRN Reason: Pain Stop: 01/29/23 23:10 Trazodone HCl (Trazodone Hcl 100 Mg Tab) 100 mg PO HS PENDING SALE TO [facility] Stop: 02/15/23 20:59 Last Admin: 01/16/23 20:37 Dose: 100 mg
[2023-01-17] MEDS ORDERED: POTASSIUM CHLORIDE 10 MEQ TABCR PO ONE (12:30)
--- NOTE | 2023-01-17 12:45 | Cardiology Progress Note ---
Date of Service January 17, 2023 Assessment & Plan (1) Acute exacerbation of CHF (congestive heart failure): (2) Bilateral edema of lower extremity: (3) Acute on chronic heart failure with preserved ejection fraction (HFpEF): Plan Admission with acute decompensated diastolic congestive heart failure promptly resolving following administration of 2 doses of 60 mg IV furosemide. Potassium 3.6 mmol/L this AM with supplement potassium, 30 mEq oral potassium chloride, ordered. Prior to arrival patient was taking furosemide 20 mg/day. Perhaps it would be best to discharge patient on furosemide 20 mg/day with an additional 20 mg 3-4 days per week as needed. Consider future addition of an SGLT2 inhibitor. OK to discharge from a cardiac standpoint. Admission and Anticipated Discharge Date Admission Date: January 15, 2023 Supervising Physician Co-Signing Physician Notes Case discussed with Jerzy Hernandez PA-C. Agree with findings and plans as outlined. Vanessa Parra DO Subjective Patient seen and examined. Chart, medications, and telemetry reviewed. Lying flat without cough, orthopnea, or PND. Presenting lower extremity peripheral edema resolved after 2 doses of 60 mg IV furosemide. No chest pain. No palpitations. No dizziness or lightheadedness. Continuous stockkeeper reveals sinus with heart rates predominantly in the 60s and 70s, occasional PVCs. Review of Systems Review of Systems: Complete Review of Systems is as stated above, negative, or noncontributory. Physical Exam Physical Exam: General: A&Ox3. NAD. HENT: Normocephalic. Atraumatic. Eyes: PER. Conjunctiva pink, sclera clear. Neck: No carotid bruits. No JVD. Heart: Regular at 70 bpm. Occasional ectopic beat. No murmur. No rub. Lungs: Clear to auscultation. Abdomen: +BS. Soft. Nontender. No masses or organomegaly. Extremities: No clubbing, cyanosis, or edema. Limited neurological examination is without focal deficits. Pulses: radial=2/4, posterior tibial=2/4. Results & Data Vital Signs (Past 12 Hours) Vital Signs Temp Pulse Resp BP BP Pulse Ox O2 Del Method 01/17/23 12:26 37.0 C 60 18 142/64 H 133/58 L 96 01/17/23 12:08 37.0 C 60 18 142/64 H 96 Room Air 01/17/23 08:17 37.0 C 67 18 149/71 H 92 Room Air 01/17/23 03:00 36.7 C 61 18 134/60 96 Room Air Laboratory Results Cardiac Enzymes 01/17/23 Range/Units 06:30 AST 37 (13-39) U/L CBC 01/17/23 Range/Units 06:30 WBC 8.41 (4.8-10.8) K/ul RBC 3.27 L (4.70-6.10) M/uL Hgb 11.0 L (14.0-18.0) g/dl Hct 32.3 L (42.0-52.0) % Plt Count 146 (130-400) K/uL Neut # (Auto) 4.43 (1.40-6.50) K/uL Lymph # (Auto) 2.65 (1.20-3.40) K/uL [place] # (Auto) 0.84 H (0.11-0.59) K/uL Eos # (Auto) 0.40 (0.00-0.50) K/uL Baso # (Auto) 0.07 (0.00-0.20) K/uL Comprehensive Metabolic Panel 01/17/23 Range/Units 06:30 Sodium 139 (136-145) mmol/L Potassium 3.6 (3.5-5.1) mmol/L Chloride 107 (98-107) mmol/L Carbon Dioxide 28 (21-32) mmol/L BUN 29 H (6-23) mg/dl Creatinine 1.43 H (0.6-1.4) mg/dl Glucose 109 H (70-99(Fasting)) mg/dl Calcium 8.4 L (8.6-10.3) mg/dl Direct Bilirubin 0.5 H (0-0.2) mg/dl AST 37 (13-39) U/L ALT 19 (7-52) U/L Alkaline Phosphatase 121 H (34-104) U/L Total Protein 6.8 (6.0-8.3) gm/dl Albumin 2.9 L (3.4-5.0) gm/dl Intake and Output 01/16/23 01/17/23 01/17/23 22:59 06:59 14:59 Output Total 450 / 2300 175 / 2300 501 / 501 Balance -450 / -1850 -175 / -1850 -501 / -501 Output: Urine 450 / 2300 175 / 2300 500 / 500 # Bowel Movements Other: Weight 89 kg 89 kg Weight Measurement Method Standing Scale Patient Weight 01/18/23 06:59 Weight 89 kg
--- NOTE | 2023-01-17 23:09 | Electrocardiogram Report ---
Test Reason : Blood Pressure : / mmHG Vent. Rate : 074 BPM Atrial Rate : 074 BPM P-R Int : 178 ms QRS Dur : 106 ms QT Int : 422 ms P-R-T Axes : 048 -20 036 degrees QTc Int : 468 ms Normal sinus rhythm Moderate voltage criteria for LVH, may be normal variant Nonspecific ST abnormality Abnormal ECG When compared with ECG of 03-JUN-2022 14:24, T wave inversion no longer evident in Inferior leads Confirmed by Ulisses Su ([id number]) on 01/17/2023 11:08:53 PM Referred By: Jerzy Glez Confirmed By:Ulisses uS
--- NOTE | 2023-01-18 08:35 | Discharge Summary ---
Date of Service January 18, 2023 Admission HPI Per Admitting Provider History obtained from patient and records. Medical history significant for chronic diastolic heart failure (EF 55 to 59 %, TTE 2022), valvular heart disease (mild MR/TR), hypertension, history endocarditis, DM2 on oral medications, CRI (baseline creatinine 1.3-1.5), chronic anemia (baseline hemoglobin 12-13), NAFLD cirrhosis, prostate cancer, chronic back pain on narcotics, past tobacco abuse. Last confinement last year for decompensated heart failure. Recent outpatient [facility] Cardiology visit 2 weeks ago. Home BP monitoring recommended. Recommendation to increase amlodipine dosing if SBP persistently above 140s as per note. Last few days, patient noted increased bilateral leg swelling and fluid retention. Patient had just come back from a yearly fishing trip with his buddies similar to confinement from last year. Shortness of breath worse on exertion. Abdominal distention without pain/fever/ chills. Denies black/bloody stools. Denies headache. Patient compliant with home medications. Denies dietary indiscretion or unusual stress. SBP 1 40-1 50s at home. Patient thinks he gained almost patient took 10 pounds in the last week. Patient took 4 extra tablets of home torsemide prior to coming to hospital [facility]. 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 Admission Exam Per Admitting Provider Review of Systems: GENERAL: Comfortable, slightly anxious, pleasant, no respiratory distress SKIN: Pallor, warm HEENT: Pale palpebral conjunctivae, no ptosis, dry buccal mucosa NECK : Supple, no tenderness CHEST : Decreased breath sounds, no tenderness HEART : RRR, no obvious murmurs ABDOMEN: Some distention, nontender EXTREMITIES : Bilateral LE swelling, no LE tenderness, no other conspicuous deformities noted NEUROLOGIC : Coherent, no facial asymmetry, no other gross focality Principal Diagnosis Acute decompensated CHF, type 2 diabetes, hypertension, CKD Discharge Exam Lying in bed comfortably Constitutional well developed, well nourished and + obese; not ill appearing Eyes PERRL, conjunctivae normal, anicteric sclerae Neck trachea midline, no thyromegaly Respiratory no respiratory distress Auscultation: + diminished lung sounds and + crackles (Minimal crackles at the bases) Cardiovascular Rate/Rhythm: regular rate and regular rhythm; not tachycardic Heart Sounds: normal S1, normal S2 and + murmur Extremities: + edema (1+ edema bilateral) Gastrointestinal (Abdomen) Inspection/Auscultation: normal bowel sounds; abdomen not distended Percussion/Palpation: abdomen soft; abdomen nontender Neurologic normal touch/pain/proprioception and moves all extremities; no focal motor deficits Psychiatric A+Ox3, euthymic affect Lymphatic no cervical or axillary lymphadenopathy Discharge Data Allergies Allergy/AdvReac Type Severity Reaction Status Date / Time No Known Allergies Allergy Verified 01/15/23 19:58 Consultations 01/15/23 19:16 ED Decision to Admit Stat 01/15/23 23:11 Consult Cardiology Routine Ordered Studies 01/15/23 21:21 US abdomen ltd ascites Stat US venous doppler LE BI Stat Hospital Course (1) Acute exacerbation of CHF (congestive heart failure): Decompensated heart failure History diastolic function and valvular heart disease (mild MR/TR) Received Lasix in the emergency room and has had enough diuresis Appreciate cardiology input and recommendation He has been feeling a lot better Would like to to observe tonight and may be discharged tomorrow Remains medically stable without any cardiac symptoms Remains ambulant without any shortness of breath He will be discharged home this afternoon Persistently uncontrolled blood pressure Medication has been changed recently Blood pressure remained stable Blood pressure remains controlled CKD, at baseline Creatinine remains stable at 1.27 and electrolytes are normal Creatinine is slightly up at 1.43 but remains stable DM2 on oral medications, well-controlled as of recent hemoglobin A1c of 5.8 this month Basal bolus insulin, ISS BG goal 1 10-1 40, carb count coverage Blood sugar are normal Acute on chronic anemia, hemoglobin drop from baseline Possibly from CKD, patient denies overt GI/ bleed symptoms Anemia work-up, transfuse PRBC if hemoglobin less than 7 and or from symptomatic anemia Hemoglobin remains stable at 11.0 as of 01/17/2023 NAFLD cirrhosis, compensated except for fluid retention No acute issues History of prostate cancer, patient contemplating CyberKnife radiation therapy by [facility] specialist Chronic back pain on narcotics Past tobacco abuse DVT prophylaxis. Heparin subcu Full code Will be discharged home this afternoon Total Time Total Time Spent Total Time Spent (In Minutes): 35 minutes Discharge Plan Discharge Items Patient Disposition: Home - Self-Care Reason For Visit: CHF Discharge Diagnosis: Acute decompensated CHF, type 2 diabetes, hypertension, CKD Condition on Discharge: Good Activity: Resume your previous activity Non-emergency contact: Primary Care Provider Call non-emergency contact if: you have any medication questions and your symptoms worsen Follow-up/Referrals: Jerzy Glez MD [Primary Care Provider] - (Date & Time 01/21/2023 2:00 PM Provider Deb Camara MD [facility] ) Diet: Heart Healthy and Low Sodium (2gm) Addtl Attending Provider Instructions: Please take precautions to avoid falls Take your medications as advised Consider the addition of open hCG LT 2 inhibitor/Jardiance Please keep appointment with your healthcare providers Pending Studies at Discharge: No Stand-Alone Forms: My LightTable, Smoking Cessation Medications and DC Order Prescriptions: Continued metformin 500 mg tablet 500 mg PO BIDM trazodone 100 mg tablet 100 mg PO HS oxycodone 10 mg tablet 10 mg PO QID Rx Instructions: take in AM, NOON, PM & BEFORE HS metoprolol succinate 25 mg tablet extended release 24 hr 25 mg PO DAILY furosemide 20 mg tablet 40 mg PO DAILY Qty: 60 0RF Changed amlodipine 5 mg Tablet 5 mg PO DAILY Qty: 30 0RF Rx Instructions: Take 1 tab daily Discharge Orders: Discharge Order (Routine); Ordered 01/17/23 Ordered By: Mathew Jaquez Admission Data Admit Date/Time: 01/15/23 21:25 Attending Provider: Mathew Jaquez Admit Provider: Mark Wong Primary Care Provider: Jerzy Glez Other Providers: Mark Wong ; Kaity Bhatti ; Satinder Parra ; Jean-Paul Sumner ; Mark Link ; Gustavo Villarreal ; Jerzy Hernandez ; Mary Jane Hawkins ; Meme Victoria ; Kaity Zavala ; Reynaldo Archuleta ; Bhupendra Hunter ; Ashlee Pinto ; Sandra Laura ; Ariel Membreno ; Sandoval Suazo Other Interventions: Discharge Summary Assessment (RN) Last Done: 01/17/23 12:26
== END 2023-01-17 14:02 | disposition home or self-care (01) | DRG 291 ==
LOC: ED 17:46 → 2S 21:25

== ENCOUNTER 2023-01-31 18:16 | Inpatient (IN) ==
--- NOTE | 2023-01-31 18:24 | ED Triage Note ---
Date of Service January 31, 2023 History of Present Illness This patient was briefly evaluated while in triage. An abbreviated physical exam was performed. This patient is a 72-year-old Male who presents to the ED for evaluation of a fever and dehydrated. His states that he had a procedure on 01/26 to prepare for prostate radiation. He has had a fever at home of 101.5. Physical Exam VITALS: Vitals are noted on the nurse's note and reviewed by myself. GENERAL: This is a 72-year-old male, in no acute distress but ill appearing. SKIN: The skin was without rashes. HEART: Regular rate and rhythm without murmurs gallops or rubs. LUNGS: Clear to auscultation bilaterally without wheezes, rales or rhonchi. NEURO: Patient was alert and oriented to person place and time. Initial orders for labs and / or imaging were placed and patient was placed in the waiting area until a bed is available. Please see further documentation for the full ED course. MDM / Impression Impression Impression: Fever, Leukocytosis, Generalized weakness
[2023-01-31 20:30] LABS: Basophils # (auto) 0.13 K/uL (0.00-0.20); Basophils % (auto) 0.6 %; Eosinophils # (auto) 0.14 K/uL (0.00-0.50); Eosinophils % (auto) 0.7 %; Hematocrit (blood only) 40.5 % (42.0-52.0); Hemoglobin 13.7 g/dl (14.0-18.0); Immature Granulocytes % (auto) 0.5 %; Lymphocytes # (auto) 2.82 K/uL (1.20-3.40); Lymphocytes % (auto) 13.5 %; Mean Corpuscular Hgb Conc 33.8 g/dL (32.0-36.0); Mean Corpuscular Volume 100.5 fL (80.0-100.0); Mean Platelet Volume 12.1 fL (9.4-12.4); Monocytes # (auto) 1.64 K/uL (0.11-0.59); Monocytes % (auto) 7.8 %; Neutrophils # (auto) 16.11 K/uL (1.40-6.50); Neutrophils % (auto) 76.9 %; Platelet Count 218 K/uL (130-400); RDW Coefficient of Variation 13.9 % (11.5-14.5); Red Blood Count 4.03 M/uL (4.70-6.10); White Blood Count 20.94 K/ul (4.8-10.8)
[2023-01-31 20:36] LABS: Appearance Urine Clear (Clear); Bacteria Urine Automated Negative (Negative); Bilirubin Urine Negative (Negative); Blood Urine Negative (Negative); Color Urine Dark Yellow; Glucose Urine UA 2+ (Negative); Ketones Urine Negative (Negative); Leukocyte Esterase Urine Negative (Negative); Nitrite Urine Negative (Negative); Protein Urine 2+ (Negative); RBC Urine Automated 0-4 /hpf (0-4); Specific Gravity Urine 1.018 (1.000-1.030); Urobilinogen Urine Negative (Negative); pH Urine 6.5 (4.5-7.5)
[2023-01-31 20:45] LABS: Alanine Aminotransferase 37 U/L (7-52); Albumin Globulin Ratio 0.6 (0.9-2); Albumin Level 3.4 gm/dl (3.4-5.0); Alkaline Phosphatase 231 U/L (34-104); Anion Gap 6 (3-11); Aspartate Aminotransferase 57 U/L (13-39); BUN Creatinine Ratio 15.6 (10-20); Bilirubin,Total 2.2 mg/dl (0.2-1.0); Blood Urea Nitrogen 22 mg/dl (6-23); Calcium 9.1 mg/dl (8.6-10.3); Carbon Dioxide 28 mmol/L (21-32); Chloride 99 mmol/L (98-107); Est GFR (African American) 56.5 ml/min; Est GFR (Non-African American) 48.7 ml/min; Globulin 5.4 gm/dl (2.5-4.0); Glucose 106 mg/dl (70-99(Fasting)); Sodium 133 mmol/L (136-145); Total Protein 8.8 gm/dl (6.0-8.3)
[2023-01-31 20:56] LABS: Influenza A virus by PCR Negative (Neg); Influenza B virus by PCR Negative (Neg); RSV by PCR Negative (Neg); SARS CoV2 RNA(COVID-19) Ceph NEGATIVE (Negative)
[2023-01-31] MEDS ORDERED: CEFEPIME 2,000 MG/20 ML VIAL IV STA (21:31)
[2023-01-31] MEDS ORDERED: SODIUM CHLORIDE 0.9% 2,000 ML IV ONE (21:31)
[2023-01-31] MEDS ORDERED: oxyCODONE HCL IR 5 MG TAB (IMMEDIATE RELEASE) PO STA (21:59)
[2023-01-31] MEDS ORDERED: ONDANSETRON INJ 2 MG/ML 2 ML VIAL IV STA (22:08)
--- NOTE | 2023-01-31 22:08 | Emergency Department Note ---
Impression & Plan Fever, Leukocytosis, Generalized weakness ED Provider Note HISTORY OF PRESENT ILLNESS: Patient is a 72-year-old male presenting with general malaise and fever. Patient reports he had a fever for the last 24 hours. He states that he has been feeling generally unwell and has had a decreased appetite throughout the day today. Denies any chest pain, shortness of breath, abdominal pain, nausea or vomiting. He reports his fever was up to 101. He did not take anything prior to arrival. He has a history of prostate cancer and had a transrectal ultrasound-guided placement of prostate fiducial markers on 01/19/2023 with [facility]. He reports he been doing well up until 24 hours ago. He is currently receiving radiation therapy for his prostate cancer. Denies any recent travel or recent sick contact exposure. ROS: as above PHYSICAL EXAM: Constitutional: Patient appears in no acute distress. HENT: Head: Normocephalic and atraumatic. Eyes: EOMI, PERRL Mouth/Throat: Mucous membranes moist. Neck: Trachea midline. Neck supple. Cardiovascular: RRR, No murmurs, rubs or gallops. Intact distal pulses. Pulmonary/Chest: No respiratory distress. Breath sounds clear and equal bilaterally. No wheezes or rales. Abdominal: Abdomen soft, no tenderness, rebound or guarding. Musculoskeletal: No edema, tenderness or deformity noted. Skin: Warm and dry. No rash, erythema, pallor or cyanosis Psychiatric: Appropriate mood and affect for situation. Neurological: Alert and keenly responsive. CN II-XII grossly intact, moving all extremities equally and fully. MDM: - Vitals signs showed hypertension. - History obtained via patient. Patient presents with fever and GEN malaise. Patient has had a fever up to 101 today. He has not taken anything for the fever. Reports feeling generally unwell and having decreased oral intake. Denies any recent sick contact exposure or recent travel. - Chronic conditions affecting care: HLD; DM-2; HTN; prostate cancer; CKD; CHF - Differential diagnoses include, but are not limited to: Sepsis; bacteremia; UTI; pneumonia - Order placed for continuous cardiac monitoring. At this time, monitor showed rate of 75 bpm with normal sinus rhythm, per my interpretation. - External medical records reviewed. Patient's urologic OR note dated 01/19/2023 was reviewed. Patient had a transrectal ultrasound guided placement of prostate fiducial markers and SpaceOAR placement performee on this date for his prostate cancer. - EKG reviewed by myself showed normal sinus rhythm. Rate 72 bpm. QTc 429. No acute ischemic changes. - Laboratory workup interpreted by myself showed leukocytosis (WBC 20.94) with left shift; stable electrolytes; CKD (Cr 1.41); elevated total bilirubin (2.2); normal procalcitonin - Blood cultures obtained. - COVID/flu/RSV negative - UA negative for infection - Patient given 2L NS and 2g IV cefepime in ER. - Patient requesting his home oxycodone for pain control in ER. Given 10 mg PO oxycodone IR. - Patient started vomiting in ER and was givne 4 mg IV zofran. - Considered CT abdomen/pelvis to assess for further source of patient's fever, but he has no reproducible abdominal pain on examination. - Discussion was had with social media executive about patient's case and need for admission - Hospitalist consulted for admission [facility] ASSESSMENT AND PLAN: Diagnosis: Fever; leukocytosis; generalized weakness Plan: Admit Past Med/Surg History Medical History Acute decompensated heart failure Anemia Cirrhosis CKD (chronic kidney disease), stage III DMII (diabetes mellitus, type 2) H/O endocarditis Hypertensive urgency Multiple rib fractures Opioid type dependence, unspecified Rib pain (09/10/10) Subacute bacterial endocarditis (09/24/10) Surgical History History of cholecystectomy Previous back surgery Social History Smoking Status: Unknown if ever smoked Cigarettes Per Day: 15; Second Hand Exposure: No; Do You Dip or Chew Tobacco: No; Hx Alcohol Use: No Hx Substance Use: No Preferred Language: Marshallese Communication Ability: Effective Cartridge Belt Puncher Required: No Beliefs That Will Affect Care: None marital status: Current Living Situation: Spouse Feels Safe at Home: Yes Assistive Devices: None Allergies Allergies Allergy/AdvReac Type Severity Reaction Status Date / Time No Known Allergies Allergy Verified 01/15/23 19:58 Home Meds Home Medications Medication Instructions Recorded Confirmed metformin 500 mg tablet 500 mg PO BIDM 08/22/19 01/15/23 oxycodone 10 mg tablet 10 mg PO QID 01/02/22 01/15/23 trazodone 100 mg tablet 100 mg PO HS 01/02/22 01/15/23 metoprolol succinate 25 mg 25 mg PO DAILY 01/15/23 01/15/23 tablet,extended release 24 hr Previous Rx's Medication Instructions Recorded furosemide 20 mg tablet 40 mg (2 x 20 mg) PO DAILY #60 tabs 01/20/22 amlodipine 5 mg tablet 5 mg PO DAILY #30 tabs 01/17/23 Results & Data (ED) Vital Signs Vital Signs - 24 hr 01/31/23 18:21 01/31/23 21:34 01/31/23 21:45 Temperature 37.1 C Temperature Source Temporal Artery Scan Pulse Rate 78 71 Pulse Rate [Left Apical] 69 Respiratory Rate 19 17 Respiratory Effort / Characteristics Non-Labored Spontaneous Non-Labored Respiratory Depth Normal Normal Blood Pressure 113/66 Blood Pressure [Right Arm] 158/65 H Blood Pressure Mean 81 Blood Pressure Mean [Right Arm] 96 Pulse Oximetry 93 95 Oxygen Delivery Method Room Air Room Air Sepsis Recent Fever Within 48 Hours Yes Sepsis New/Unexplained Change in Mental Status N/A Sepsis Action Taken by Nursing No Action Required Laboratory Data 01/31/23 19:54 01/31/23 19:54 Lab Results 01/31/23 01/31/23 01/31/23 Range/Units 19:54 19:55 19:57 WBC 20.94 H (4.8-10.8) K/ul RBC 4.03 L (4.70-6.10) M/uL Hgb 13.7 L (14.0-18.0) g/dl Hct 40.5 L (42.0-52.0) % MCV 100.5 H (80.0-100.0) fL MCH 34.0 (25.0-34.0) pg MCHC 33.8 (32.0-36.0) g/dL RDW Std Deviation 52.0 H (36.4-46.3) fL RDW Coeff of Marjorie 13.9 (11.5-14.5) % Plt Count 218 (130-400) K/uL MPV 12.1 (9.4-12.4) fL Immature Gran % (Auto) 0.5 % Neut % (Auto) 76.9 % Lymph % (Auto) 13.5 % [place] % (Auto) 7.8 % Eos % (Auto) 0.7 % Baso % (Auto) 0.6 % Neut # (Auto) 16.11 H (1.40-6.50) K/uL Lymph # (Auto) 2.82 (1.20-3.40) K/uL [place] # (Auto) 1.64 H (0.11-0.59) K/uL Eos # (Auto) 0.14 (0.00-0.50) K/uL Baso # (Auto) 0.13 (0.00-0.20) K/uL Immature Gran # (Auto) 0.10 (0.01-0.20) K/uL Sodium 133 L (136-145) mmol/L Potassium 5.0 (3.5-5.1) mmol/L Chloride 99 (98-107) mmol/L Carbon Dioxide 28 (21-32) mmol/L Anion Gap 6 (3-11) BUN 22 (6-23) mg/dl Creatinine 1.41 H (0.6-1.4) mg/dl Est Cr Clr Drug Dosing Not Reportable Est GFR ( Amer) 56.5 ml/min Est GFR (Non-Af Amer) 48.7 ml/min BUN/Creatinine Ratio 15.6 (10-20) Glucose 106 H (70-99(Fasting)) mg/dl Lactate 2.0 (0.4-2.0) mmol/L Calcium 9.1 (8.6-10.3) mg/dl Total Bilirubin 2.2 H (0.2-1.0) mg/dl AST 57 H (13-39) U/L ALT 37 (7-52) U/L Alkaline Phosphatase 231 H (34-104) U/L Total Protein 8.8 H (6.0-8.3) gm/dl Albumin 3.4 (3.4-5.0) gm/dl Globulin 5.4 H (2.5-4.0) gm/dl Albumin/Globulin Ratio 0.6 L (0.9-2) Procalcitonin 0.39 (0-0.5) ng/ml Urine Color Dark Yellow Urine Appearance Clear (Clear) Urine pH 6.5 (4.5-7.5) Ur Specific [place] 1.018 (1.000-1.030) Urine Protein 2+ H (Negative) Urine Glucose (UA) 2+ H (Negative) Urine Ketones Negative (Negative) Urine Blood Negative (Negative) Urine Nitrite Negative (Negative) Urine Bilirubin Negative (Negative) Urine Urobilinogen Negative (Negative) Ur Leukocyte Esterase Negative (Negative) Urine WBC (Auto) 1-5 (0-5) /hpf Urine RBC (Auto) 0-4 (0-4) /hpf U Hyaline Cast (Auto) 1-5 (0-5) /lpf U Epithel Cells (Auto) 5-10 H (0-5) /lpf Urine Bacteria (Auto) Negative (Negative) SARS-CoV-2 (PCR) NEGATIVE (Negative) Influenza Type A (PCR) Negative (Neg) Influenza Type B (PCR) Negative (Neg) RSV (RT-PCR) Negative (Neg) Administered Medications Discontinued Medications Cefepime HCl (Maxipime) 2,000 mg in 20 mls @ 5 mls/min IV NOW STA; Protocol Stop: 01/31/23 21:34 Last Admin: 01/31/23 22:03 Dose: 5 mls/min Documented By: [facility] Discharge Plan Visit Data Chief Complaint: Fever Stated Complaint: FEVER 101.00 ED Provider: Carolyn Fontenot Discharge Problem: Fever, Leukocytosis, Generalized weakness Forms Stand Alone Forms: My [facility] Prescriptions Prescriptions: No Action metformin 500 mg tablet 500 mg PO BIDM trazodone 100 mg tablet 100 mg PO HS oxycodone 10 mg tablet 10 mg PO QID Rx Instructions: take in AM, NOON, PM & BEFORE HS metoprolol succinate 25 mg tablet extended release 24 hr 25 mg PO DAILY amlodipine 5 mg Tablet 5 mg PO DAILY Qty: 30 0RF Rx Instructions: Take 1 tab daily furosemide 20 mg tablet 40 mg PO DAILY Qty: 60 0RF Referrals Referrals: Jerzy Glez MD [Primary Care Provider] -
[2023-01-31] MEDS ORDERED: ONDANSETRON INJ 2 MG/ML 2 ML VIAL ONE (22:09)
[2023-01-31] MEDS ORDERED: ALBUMIN 25% 25 GM/100 ML VIAL IV ONE (22:30)
[2023-01-31 22:32] LABS: Magnesium 2.1 mg/dl (1.7-2.4)
[2023-01-31] MEDS ORDERED: DOXYCYCLINE HYCLATE 100 MG in DEXTROSE 5% MINI-B 100 ML IV STA (23:03)
--- NOTE | 2023-01-31 23:32 | History & Physical Report ---
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 Heparin subcu Full code Text document was generated using [employer] voice recognition software. It may contain grammatical or spelling errors. Kindly contact undersigned for clarification of any documentation item in question. History of Present Illness Chief Complaint: Fever Primary Care Provider: Jerzy Glez MD History obtained from patient and records. Medical history significant for chronic diastolic heart failure (EF 55 to 59 %, TTE 2022), valvular heart disease (mild MR/TR), hypertension, history endocarditis, DM2 on oral medications, CRI (baseline creatinine 1.3-1.5), chronic anemia (baseline hemoglobin 12-13), NAFLD cirrhosis, prostate cancer, chronic back pain on narcotics, past tobacco abuse. Recent confinement January 152022 for decompensated heart failure. Patient had outpatient transrectal ultrasound-guided placement of prostate fiducial markers and SpaceOAR placement at [place], [place] 1 day after discharge. No problems postprocedure as per patient. 1 day history of malaise and fever symptoms. Poor appetite the whole day. Denies chest pain, SOB, abdominal pain, nausea, vomiting, no hematuria or dysuria symptoms. Temperature 101. Patient started coughing out junky yellow sputum upon arrival at the ER. 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 Allergies Allergy/AdvReac Type Severity Reaction Status Date / Time No Known Allergies Allergy Verified 01/31/23 22:19 Home Medications Medication Instructions Recorded Confirmed Type oxycodone 10 mg tablet 10 mg PO QID 01/02/22 01/31/23 History trazodone 100 mg tablet 100 mg PO HS 01/02/22 01/31/23 History metoprolol succinate 25 mg 25 mg PO QAM 01/15/23 01/31/23 History tablet,extended release 24 hr amlodipine 5 mg tablet 5 mg PO QAM 01/31/23 01/31/23 History cholecalciferol (vitamin D3) 25 25 mcg PO DAILY 01/31/23 01/31/23 History mcg (1,000 unit) tablet (Vitamin D3) empagliflozin 10 mg tablet 10 mg PO QAM 01/31/23 01/31/23 History (Jardiance) furosemide 40 mg tablet 40 mg PO QAM 01/31/23 01/31/23 History losartan 25 mg tablet 25 mg PO QAM 01/31/23 01/31/23 History Past Med/Surg History Medical History Acute decompensated heart failure Anemia Cirrhosis CKD (chronic kidney disease), stage III DMII (diabetes mellitus, type 2) H/O endocarditis Hypertensive urgency Multiple rib fractures Opioid type dependence, unspecified Rib pain (09/10/10) Subacute bacterial endocarditis (09/24/10) Surgical History History of cholecystectomy Previous back surgery Social History Smoking Status: Never smoker Cigarettes Per Day: 15; Second Hand Exposure: No; Do You Dip or Chew Tobacco: No; Hx Alcohol Use: No Hx Substance Use: No Preferred Language: Bahamian Communication Ability: Effective Auto Glass Installer Required: No Beliefs That Will Affect Care: None marital status: Current Living Situation: Spouse Feels Safe at Home: Yes Assistive Devices: None Review of Systems Review of Systems: As per HPI, all other systems reviewed and negative Physical Exam Physical Exam: GENERAL: Comfortable, slightly anxious, no respiratory distress SKIN: Pallor, warm HEENT: Pale palpebral conjunctivae, no ptosis, moist buccal mucosa NECK : Supple, no tenderness CHEST : Decreased breath sounds, no tenderness BACK : Chronic mid back tenderness HEART : RRR, no obvious murmurs ABDOMEN: Some distention, nontender EXTREMITIES : Minimal LE swelling, no LE tenderness, no other conspicuous deformities noted NEUROLOGIC : Coherent, no facial asymmetry, no other gross focality Results & Data Results & Data Vital Signs (Past 12 Hours) Vital Signs Temp Pulse Pulse Resp BP BP Pulse Ox 01/31/23 22:30 74 20 154/58 H 92 01/31/23 22:00 71 22 156/62 H 96 01/31/23 21:45 71 01/31/23 21:34 69 17 158/65 H 95 01/31/23 18:21 37.1 C 78 19 113/66 93 O2 Del Method 01/31/23 22:30 Room Air 01/31/23 22:00 Room Air 01/31/23 21:45 01/31/23 21:34 Room Air 01/31/23 18:21 Room Air Laboratory Results Laboratory Results WBC 20.94 K/ul (4.8-10.8) H 01/31/23 19:54 RBC 4.03 M/uL (4.70-6.10) L 01/31/23 19:54 Hgb 13.7 g/dl (14.0-18.0) L 01/31/23 19:54 Hct 40.5 % (42.0-52.0) L 01/31/23 19:54 MCV 100.5 fL (80.0-100.0) H 01/31/23 19:54 MCH 34.0 pg (25.0-34.0) 01/31/23 19:54 MCHC 33.8 g/dL (32.0-36.0) 01/31/23 19:54 RDW Std Deviation 52.0 fL (36.4-46.3) H 01/31/23 19:54 RDW Coeff of Marjorie 13.9 % (11.5-14.5) 01/31/23 19:54 Plt Count 218 K/uL (130-400) 01/31/23 19:54 MPV 12.1 fL (9.4-12.4) 01/31/23 19:54 Immature Gran % (Auto) 0.5 % 01/31/23 19:54 Neut % (Auto) 76.9 % 01/31/23 19:54 Lymph % (Auto) 13.5 % 01/31/23 19:54 [place] % (Auto) 7.8 % 01/31/23 19:54 Eos % (Auto) 0.7 % 01/31/23 19:54 Baso % (Auto) 0.6 % 01/31/23 19:54 Neut # (Auto) 16.11 K/uL (1.40-6.50) H 01/31/23 19:54 Lymph # (Auto) 2.82 K/uL (1.20-3.40) 01/31/23 19:54 [place] # (Auto) 1.64 K/uL (0.11-0.59) H 01/31/23 19:54 Eos # (Auto) 0.14 K/uL (0.00-0.50) 01/31/23 19:54 Baso # (Auto) 0.13 K/uL (0.00-0.20) 01/31/23 19:54 Immature Gran # (Auto) 0.10 K/uL (0.01-0.20) 01/31/23 19:54 Sodium 133 mmol/L (136-145) L 01/31/23 19:54 Potassium 5.0 mmol/L (3.5-5.1) 01/31/23 19:54 Chloride 99 mmol/L (98-107) 01/31/23 19:54 Carbon Dioxide 28 mmol/L (21-32) 01/31/23 19:54 Anion Gap 6 (3-11) 01/31/23 19:54 BUN 22 mg/dl (6-23) 01/31/23 19:54 Creatinine 1.41 mg/dl (0.6-1.4) H 01/31/23 19:54 Est Cr Clr Drug Dosing Not Reportable 01/31/23 19:54 Est GFR ( Amer) 56.5 ml/min 01/31/23 19:54 Est GFR (Non-Af Amer) 48.7 ml/min 01/31/23 19:54 BUN/Creatinine Ratio 15.6 (10-20) 01/31/23 19:54 Glucose 106 mg/dl (70-99(Fasting)) H 01/31/23 19:54 Lactate 2.0 mmol/L (0.4-2.0) 01/31/23 19:54 Calcium 9.1 mg/dl (8.6-10.3) 01/31/23 19:54 Magnesium 2.1 mg/dl (1.7-2.4) 01/31/23 19:54 Total Bilirubin 2.2 mg/dl (0.2-1.0) H 01/31/23 19:54 AST 57 U/L (13-39) H 01/31/23 19:54 ALT 37 U/L (7-52) 01/31/23 19:54 Alkaline Phosphatase 231 U/L (34-104) H 01/31/23 19:54 Total Protein 8.8 gm/dl (6.0-8.3) H 01/31/23 19:54 Albumin 3.4 gm/dl (3.4-5.0) 01/31/23 19:54 Globulin 5.4 gm/dl (2.5-4.0) H 01/31/23 19:54 Albumin/Globulin Ratio 0.6 (0.9-2) L 01/31/23 19:54 Procalcitonin 0.39 ng/ml (0-0.5) 01/31/23 19:54 Urine Color Dark Yellow 01/31/23 19:57 Urine Appearance Clear (Clear) 01/31/23 19:57 Urine pH 6.5 (4.5-7.5) 01/31/23 19:57 Ur Specific [place] 1.018 (1.000-1.030) 01/31/23 19:57 Urine Protein 2+ (Negative) H 01/31/23 19:57 Urine Glucose (UA) 2+ (Negative) H 01/31/23 19:57 Urine Ketones Negative (Negative) 01/31/23 19:57 Urine Blood Negative (Negative) 01/31/23 19:57 Urine Nitrite Negative (Negative) 01/31/23 19:57 Urine Bilirubin Negative (Negative) 01/31/23 19:57 Urine Urobilinogen Negative (Negative) 01/31/23 19:57 Ur Leukocyte Esterase Negative (Negative) 01/31/23 19:57 Urine WBC (Auto) 1-5 /hpf (0-5) 01/31/23 19:57 Urine RBC (Auto) 0-4 /hpf (0-4) 01/31/23 19:57 U Hyaline Cast (Auto) 1-5 /lpf (0-5) 01/31/23 19:57 U Epithel Cells (Auto) 5-10 /lpf (0-5) H 01/31/23 19:57 Urine Bacteria (Auto) Negative (Negative) 01/31/23 19:57 SARS-CoV-2 (PCR) NEGATIVE (Negative) 01/31/23 19:55 Influenza Type A (PCR) Negative (Neg) 01/31/23 19:55 Influenza Type B (PCR) Negative (Neg) 01/31/23 19:55 RSV (RT-PCR) Negative (Neg) 01/31/23 19:55 Diagnostic Findings Chest x-ray as per my interpretation atelectasis, elevated right hemidiaphragm, cardiomegaly, minimal congestion EKG as per my interpretation : Rate 70, NSR, LAD, LAFB, LVH, septal infarct, T wave abnormalities inferior leads
[2023-01-31 23:34] LABS: Influenza A virus by PCR Negative (Neg); Influenza B virus by PCR Negative (Neg); RSV by PCR Negative (Neg); SARS CoV2 RNA(COVID-19) Ceph NEGATIVE (Negative)
[2023-01-31] MEDS ORDERED: traZODone HCL 100 MG TAB PO STA (23:36)
[2023-02-01] MEDS ORDERED: CARBOHYDRATES FOR HYPOGLYCEMIA PO PRN (00:47)
[2023-02-01] MEDS ORDERED: ACETAMINOPHEN 325 MG TAB PO PRN (00:47)
[2023-02-01] MEDS ORDERED: GLUCAGON FOR INJ 1 MG VIAL SQ PRN (00:47)
[2023-02-01] MEDS ORDERED: DEXTROSE 50% 50 ML SYRINGE IV PRN (00:47)
[2023-02-01] MEDS ORDERED: GLUCOSE 40% GEL 15 GM TUBE PO PRN (00:47)
[2023-02-01] MEDS ORDERED: GLUCOSE 10 TAB/TUBE PO PRN (00:47)
[2023-02-01] MEDS: INSULIN ASPART PER UNIT CHARGE SC SCH ×5 (02:07→21:38)
[2023-02-01] MEDS ORDERED: ACETAMINOPHEN 500 MG TAB PO PRN (06:39)
[2023-02-01] MEDS: HEPARIN SOD 5,000 UNIT/0.5 ML VIAL SQ SCH ×3 (06:47→21:39)
[2023-02-01 06:50] LABS: Basophils % (auto) 0.6 %; Eosinophils # (auto) 0.25 K/uL (0.00-0.50); Eosinophils % (auto) 1.6 %; Hematocrit (blood only) 32.2 % (42.0-52.0); Hemoglobin 11.4 g/dl (14.0-18.0); Immature Granulocytes # (auto) 0.07 K/uL (0.01-0.20); Immature Granulocytes % (auto) 0.5 %; Lymphocytes # (auto) 3.44 K/uL (1.20-3.40); Lymphocytes % (auto) 22.3 %; Mean Corpuscular Hemoglobin 35.1 pg (25.0-34.0); Mean Corpuscular Hgb Conc 35.4 g/dL (32.0-36.0); Mean Corpuscular Volume 99.1 fL (80.0-100.0); Mean Platelet Volume 11.6 fL (9.4-12.4); Monocytes # (auto) 1.33 K/uL (0.11-0.59); Monocytes % (auto) 8.6 %; Neutrophils # (auto) 10.27 K/uL (1.40-6.50); Neutrophils % (auto) 66.4 %; Platelet Count 170 K/uL (130-400); RDW Coefficient of Variation 13.7 % (11.5-14.5); RDW Standard Deviation 50.5 fL (36.4-46.3); Red Blood Count 3.25 M/uL (4.70-6.10); White Blood Count 15.46 K/ul (4.8-10.8)
[2023-02-01 07:33] LABS: BUN Creatinine Ratio 17.8 (10-20); Calcium 8.5 mg/dl (8.6-10.3); Creatinine Clr Calc Pharmacy 46.6 ml/min; Est GFR (African American) 49.6 ml/min; Est GFR (Non-African American) 42.8 ml/min; Potassium 4.4 mmol/L (3.5-5.1)
--- NOTE | 2023-02-01 08:13 | XRay Report ---
XR chest 1V portable HISTORY: 72 years-old Male cough acute cough COMPARISON: 01/16/2023 TECHNIQUE: AP view of the chest FINDINGS: Cardiac silhouette is enlarged. Atherosclerosis of the aorta. The patient is mildly rotated toward th e left. Chronic right-sided rib fractures. Pulmonary vascular congestion with interstitial coarsening . Unchanged mild right hemidiaphragmatic elevation. Mild linear subsegmental bibasilar atelectasis. D egenerative changes of the shoulders and spine. IMPRESSION: Cardiomegaly with pulmonary vascular congestion. ACT 112: Negative or not required by law. The above report was generated using voice recognition software. It may contain grammatical, syntax o r spelling errors. Electronically signed by: Louis Johnson M.D. 02/01/2023 8:11 AM
[2023-02-01] MEDS: oxyCODONE HCL IR 5 MG TAB (IMMEDIATE RELEASE) PO SCH ×4 (08:22→21:42)
[2023-02-01] MEDS: DOXYCYCLINE HYCLATE 100 MG CAP PO SCH ×2 (08:24→21:38)
[2023-02-01] MEDS: METOPROLOL SUCC 25MG EXT REL TAB PO SCH (08:24)
[2023-02-01] MEDS: amLODIPine BESYLATE 5 MG TAB PO SCH (08:25)
[2023-02-01] MEDS ORDERED: LOSARTAN POTASSIUM 25 MG TAB PO SCH (09:00)
--- NOTE | 2023-02-01 13:43 | Electrocardiogram Report ---
Test Reason : Blood Pressure : / mmHG Vent. Rate : 072 BPM Atrial Rate : 072 BPM P-R Int : 180 ms QRS Dur : 100 ms QT Int : 392 ms P-R-T Axes : 024 -24 027 degrees QTc Int : 429 ms Normal sinus rhythm Moderate voltage criteria for LVH, may be normal variant ( R in aVL ) Septal infarct , age undetermined Abnormal ECG When compared with ECG of 15-JAN-2023 18:21, Septal infarct is now Present Confirmed by Vitaliy Garcia ([id number]) on 02/01/2023 1:43:07 PM Referred By: REFERRED SELF Confirmed By:Vitaliy Garcia
--- NOTE | 2023-02-01 16:32 | Hospitalist Progress Note ---
Date of Service February 01, 2023 Assessment & Plan (1) Fever: Plan: Possibly from complicated bronchitis/atypical pneumonia Possible sepsis Has been getting doxycycline for possible bronchitis Denies any fever and or chills and no shortness of breath at rest Clinically much better Prostate cancer, status post recent urologic procedure Denies any urinary symptoms UA examination does not support any UTI Chronic diastolic heart failure, some congestion on x-ray valvular heart disease (mild MR/TR) Chest x-ray looks like CHF Symptomatically better and the patient has lost about 10 pounds in the last 1 week or so Will not give any diuretics Hypertension, slightly elevated secondary to illness Remains stable CRI, at baseline Creatinine slightly worse He was advised to drink about 1.5 L of fluid a day Monitor PRP DM2 on oral medications, well-controlled as of recent hemoglobin A1c of 5.8 last month Basal bolus insulin, ISS BG goal 1 10-1 40, carb count coverage Chronic anemia, hemoglobin at baseline Chronic back pain on narcotics Past tobacco abuse DVT prophylaxis. Heparin subcu Full code Admission and Anticipated Discharge Date Admission Date: January 31, 2023 Subjective 02/01/2023 The patient was seen and examined in medical floor in presence of the He has been feeling much better since admission He was admitted with fever and weakness likely secondary to dehydration Denies any more fever and or chills, no abdominal pain, nausea or vomiting Review of Systems Review of Systems: All systems reviewed and are unremarkable except as noted below Physical Exam Physical Exam: Lying in bed without any acute distress Constitutional: well developed, well nourished, + ill appearing and + obese Eyes: PERRL, conjunctivae normal, anicteric sclerae ENMT: external ear and nose normal, oropharynx normal Neck: trachea midline, no thyromegaly Respiratory: no respiratory distress Auscultation: + diminished lung sounds and + crackles (Occasional crackles at the bases) Cardiovascular: Rate/Rhythm: regular rate, regular rhythm and + bradycardic Heart Sounds: normal S1, normal S2 and + murmur Extremities: no edema Gastrointestinal (Abdomen): Inspection/Auscultation: normal bowel sounds; abdomen not distended Percussion/Palpation: abdomen soft; abdomen nontender Musculoskeletal: No acute arthritis involving any of the joint Neurologic: normal touch/pain/proprioception and moves all extremities; no focal motor deficits Psychiatric: A+Ox3, euthymic affect Results & Data Results & Data Vital Signs (Past 12 Hours) Vital Signs Temp Pulse Pulse Resp BP BP Pulse Ox 02/01/23 15:15 36.8 C 58 L 16 118/64 94 02/01/23 15:13 58 L 16 118/64 94 02/01/23 11:00 60 15 02/01/23 10:00 64 12 169/65 H 91 02/01/23 09:01 63 24 145/59 H 93 02/01/23 08:21 62 21 138/56 L 93 02/01/23 08:21 63 18 138/56 L 93 02/01/23 08:01 54 L 17 111/39 L 93 02/01/23 07:00 63 16 175/82 H 93 02/01/23 06:54 64 02/01/23 06:00 58 L 18 138/68 92 O2 Del Method 02/01/23 15:15 Room Air 02/01/23 15:13 Room Air 02/01/23 11:00 02/01/23 10:00 02/01/23 09:01 02/01/23 08:21 02/01/23 08:21 Room Air 02/01/23 08:01 02/01/23 07:00 02/01/23 06:54 02/01/23 06:00 Laboratory Results Short CBC 01/31/23 02/01/23 Range/Units 19:54 06:21 WBC 20.94 H 15.46 H (4.8-10.8) K/ul Hgb 13.7 L 11.4 L (14.0-18.0) g/dl Hct 40.5 L 32.2 L (42.0-52.0) % Plt Count 218 170 (130-400) K/uL BMP 01/31/23 02/01/23 19:54 06:21 Sodium 133 L 135 L Potassium 5.0 4.4 Chloride 99 104 Carbon Dioxide 28 27 BUN 22 28 H Creatinine 1.41 H 1.57 H Glucose 106 H 89 Calcium 9.1 8.5 L Liver Function 01/31/23 Range/Units 19:54 Total Bilirubin 2.2 H (0.2-1.0) mg/dl AST 57 H (13-39) U/L ALT 37 (7-52) U/L Alkaline Phosphatase 231 H (34-104) U/L Albumin 3.4 (3.4-5.0) gm/dl Urine 01/31/23 Range/Units 19:57 Urine Color Dark Yellow Urine Appearance Clear (Clear) Urine pH 6.5 (4.5-7.5) Ur Specific [place] 1.018 (1.000-1.030) Urine Protein 2+ H (Negative) Urine Glucose (UA) 2+ H (Negative) Medications Administered Current Inpatient Medications Acetaminophen (Acetaminophen 500 Mg Tab) 500 mg PO Q6H PRN PRN Reason: fever/pain Stop: 03/03/23 06:38 Amlodipine Besylate (Amlodipine Besylate 5 Mg Tab) 5 mg PO QAM [facility] Stop: 03/03/23 08:59 Last Admin: 02/01/23 08:25 Dose: 5 mg Dextrose (Dextrose 50% 50 Ml Syringe) 25 - 50 ml IV UD PRN; Protocol PRN Reason: Hypoglycemia Protocol Stop: 03/03/23 00:46 Doxycycline Hyclate (Doxycycline Hyclate 100 Mg Cap) 100 mg PO BID [facility] Stop: 02/08/23 08:59 Last Admin: 02/01/23 08:24 Dose: 100 mg Glucagon (Glucagon For Inj 1 Mg Vial) 1 mg SQ UD PRN; Protocol PRN Reason: Hypoglycemia Protocol Stop: 03/03/23 00:46 Glucose (Glucose 10 Tab/Tube) 4 - 8 tab PO UD PRN; Protocol PRN Reason: Hypoglycemia Treatment Stop: 03/03/23 00:46 Glucose (Glucose 40% Gel 15 Gm Tube) 15 - 30 gm PO UD PRN; Protocol PRN Reason: Hypoglycemia Protocol Stop: 03/03/23 00:46 Heparin Sodium (Porcine) (Heparin Sod 5,000 Unit/0.5 Ml Vial) 5,000 units SQ Q8 [facility] Stop: 03/03/23 05:59 Last Admin: 02/01/23 14:09 Dose: 5,000 units Promethazine HCl 6.25 mg/ (Sodium Chloride) 50.25 mls @ 201 mls/hr IV Q6H PRN PRN Reason: Nausea And Vomiting Stop: 03/02/23 23:36 Insulin Aspart (Insulin Aspart Per Unit Charge) 0 units SC ACHS [facility] Stop: 03/03/23 00:46 Last Admin: 02/01/23 14:08 Dose: 2 units Metoprolol Succinate (Metoprolol Succ 25mg Ext Rel Tab) 25 mg PO QAM [facility] Stop: 03/03/23 08:59 Last Admin: 02/01/23 08:24 Dose: 25 mg Miscellaneous (Carbohydrates For Hypoglycemia ) 15 - 30 gm PO UD PRN PRN Reason: Hypoglycemia Protocol Stop: 03/03/23 00:46 Oxycodone HCl (Oxycodone Hcl Ir 5 Mg Tab (Immediate Release)) 10 mg PO QID [facility] Stop: 02/15/23 08:59 Last Admin: 02/01/23 12:34 Dose: 10 mg Trazodone HCl (Trazodone Hcl 100 Mg Tab) 100 mg PO HS [facility] Stop: 03/03/23 20:59
[2023-02-01] MEDS: traZODone HCL 100 MG TAB PO SCH (21:39)
[2023-02-02] MEDS: HEPARIN SOD 5,000 UNIT/0.5 ML VIAL SQ SCH ×3 (06:13→22:30)
[2023-02-02 06:14] LABS: Basophils # (auto) 0.09 K/uL (0.00-0.20); Basophils % (auto) 0.8 %; Eosinophils # (auto) 0.37 K/uL (0.00-0.50); Eosinophils % (auto) 3.2 %; Hemoglobin 11.7 g/dl (14.0-18.0); Immature Granulocytes # (auto) 0.03 K/uL (0.01-0.20); Immature Granulocytes % (auto) 0.3 %; Lymphocytes # (auto) 2.53 K/uL (1.20-3.40); Lymphocytes % (auto) 22.1 %; Mean Corpuscular Hemoglobin 33.7 pg (25.0-34.0); Mean Corpuscular Hgb Conc 34.4 g/dL (32.0-36.0); Mean Platelet Volume 11.8 fL (9.4-12.4); Monocytes # (auto) 1.32 K/uL (0.11-0.59); Monocytes % (auto) 11.5 %; Neutrophils # (auto) 7.13 K/uL (1.40-6.50); Neutrophils % (auto) 62.1 %; Nucleated RBC # (auto) 0.02 K/uL (0.00-0.12); Nucleated RBC % (auto) 0.2 %; Platelet Count 170 K/uL (130-400); RDW Coefficient of Variation 13.8 % (11.5-14.5); RDW Standard Deviation 49.7 fL (36.4-46.3); Red Blood Count 3.47 M/uL (4.70-6.10); White Blood Count 11.47 K/ul (4.8-10.8)
[2023-02-02 06:44] LABS: Calcium 8.4 mg/dl (8.6-10.3); Potassium 4.8 mmol/L (3.5-5.1)
[2023-02-02 06:49] LABS: BUN Creatinine Ratio 20.9 (10-20); Creatinine Clr Calc Pharmacy 44.9 ml/min; Est GFR (African American) 47.4 ml/min; Est GFR (Non-African American) 40.9 ml/min
[2023-02-02] MEDS: oxyCODONE HCL IR 5 MG TAB (IMMEDIATE RELEASE) PO SCH ×4 (08:21→20:34)
[2023-02-02] MEDS: INSULIN ASPART PER UNIT CHARGE SC SCH ×4 (08:21→21:49)
[2023-02-02] MEDS: METOPROLOL SUCC 25MG EXT REL TAB PO SCH (08:24)
[2023-02-02] MEDS: DOXYCYCLINE HYCLATE 100 MG CAP PO SCH ×2 (08:24→20:23)
[2023-02-02] MEDS: amLODIPine BESYLATE 5 MG TAB PO SCH (08:25)
[2023-02-02] MEDS: SODIUM CHLORIDE 0.9% 1,000 ML IV SCH ×2 (13:15→20:34)
--- NOTE | 2023-02-02 15:11 | Hospitalist Progress Note ---
Date of Service February 02, 2023 Assessment & Plan (1) Fever: Plan: Possibly from complicated bronchitis/atypical pneumonia Possible sepsis Has been getting doxycycline for possible bronchitis Denies any fever and or chills and no shortness of breath at rest Not any better today and remains weak and lethargic No shortness of breath at rest Feels dry Prostate cancer, status post recent urologic procedure Denies any urinary symptoms UA examination does not support any UTI Blood cultures have been negative preliminary Chronic diastolic heart failure, some congestion on x-ray valvular heart disease (mild MR/TR) Chest x-ray looks like CHF Symptomatically better and the patient has lost about 10 pounds in the last 1 week or so Will not give any diuretics Hypertension, slightly elevated secondary to illness Remains stable CRI, at baseline Creatinine slightly worse He was advised to drink about 1.5 L of fluid a day Monitor PRP-creatinine has gone up so his BUN Will give him a small amount of intravenous fluid and monitor PRP tomorrow DM2 on oral medications, well-controlled as of recent hemoglobin A1c of 5.8 last month Basal bolus insulin, ISS BG goal 1 10-1 40, carb count coverage Chronic anemia, hemoglobin at baseline Chronic back pain on narcotics Past tobacco abuse DVT prophylaxis. Heparin subcu Full code Likely discharge tomorrow Admission and Anticipated Discharge Date Admission Date: February 02, 2023 Subjective 02/01/2023 The patient was seen and examined in medical floor in presence of the He has been feeling much better since admission He was admitted with fever and weakness likely secondary to dehydration Denies any more fever and or chills, no abdominal pain, nausea or vomiting 02/02/2023 The patient was seen and examined in medical floor He has been weak and lethargic No fever and or chills, no pain His bowel is not moved yet Review of Systems Review of Systems: All systems reviewed and are unremarkable except as noted below Physical Exam Physical Exam: Lying in bed without any acute distress Constitutional: well developed, well nourished, + ill appearing and + obese Eyes: PERRL, conjunctivae normal, anicteric sclerae ENMT: external ear and nose normal, oropharynx normal Neck: trachea midline, no thyromegaly Respiratory: no respiratory distress Auscultation: + diminished lung sounds and + crackles (Occasional crackles at the bases) Cardiovascular: Rate/Rhythm: regular rate, regular rhythm and + bradycardic Heart Sounds: normal S1, normal S2 and + murmur Extremities: no edema Gastrointestinal (Abdomen): Inspection/Auscultation: normal bowel sounds; abdomen not distended Percussion/Palpation: abdomen soft; abdomen nontender Musculoskeletal: No acute arthritis involving any of the joint Neurologic: normal touch/pain/proprioception and moves all extremities; no focal motor deficits Psychiatric: A+Ox3, euthymic affect Lymphatic: no cervical or axillary lymphadenopathy Results & Data Results & Data Vital Signs (Past 12 Hours) Vital Signs Temp Pulse Resp BP Pulse Ox O2 Del Method 02/02/23 15:04 37.2 C 61 18 143/66 H 95 Room Air 02/02/23 08:23 59 L 144/66 H 02/02/23 07:45 Room Air 02/02/23 07:14 36.9 C 56 L 18 137/65 94 Room Air Laboratory Results Short CBC 02/02/23 Range/Units 05:50 WBC 11.47 H (4.8-10.8) K/ul Hgb 11.7 L (14.0-18.0) g/dl Hct 34.0 L (42.0-52.0) % Plt Count 170 (130-400) K/uL BMP 02/02/23 05:50 Sodium 135 L Potassium 4.8 Chloride 105 Carbon Dioxide 27 BUN 34 H Creatinine 1.63 H Glucose 107 H Calcium 8.4 L Medications Administered Current Inpatient Medications Acetaminophen (Acetaminophen 500 Mg Tab) 500 mg PO Q6H PRN PRN Reason: fever/pain Stop: 03/03/23 06:38 Amlodipine Besylate (Amlodipine Besylate 5 Mg Tab) 5 mg PO QAM [facility]LO Stop: 03/03/23 08:59 Last Admin: 02/02/23 08:25 Dose: 5 mg Dextrose (Dextrose 50% 50 Ml Syringe) 25 - 50 ml IV UD PRN; Protocol PRN Reason: Hypoglycemia Protocol Stop: 03/03/23 00:46 Docusate Sodium (Docusate Sodium 100 Mg Cap) 100 mg PO BID [facility] Stop: 03/04/23 20:59 Doxycycline Hyclate (Doxycycline Hyclate 100 Mg Cap) 100 mg PO BID [facility] Stop: 02/08/23 08:59 Last Admin: 02/02/23 08:24 Dose: 100 mg Glucagon (Glucagon For Inj 1 Mg Vial) 1 mg SQ UD PRN; Protocol PRN Reason: Hypoglycemia Protocol Stop: 03/03/23 00:46 Glucose (Glucose 10 Tab/Tube) 4 - 8 tab PO UD PRN; Protocol PRN Reason: Hypoglycemia Treatment Stop: 03/03/23 00:46 Glucose (Glucose 40% Gel 15 Gm Tube) 15 - 30 gm PO UD PRN; Protocol PRN Reason: Hypoglycemia Protocol Stop: 03/03/23 00:46 Heparin Sodium (Porcine) (Heparin Sod 5,000 Unit/0.5 Ml Vial) 5,000 units SQ Q8 [facility] Stop: 03/03/23 05:59 Last Admin: 02/02/23 14:25 Dose: 5,000 units Promethazine HCl 6.25 mg/ (Sodium Chloride) 50.25 mls @ 201 mls/hr IV Q6H PRN PRN Reason: Nausea And Vomiting Stop: 03/02/23 23:36 Sodium Chloride (Nss) 1,000 mls @ 125 mls/hr IV .Q8H [facility] Stop: 02/03/23 02:59 Last Admin: 02/02/23 13:15 Dose: 125 mls/hr Insulin Aspart (Insulin Aspart Per Unit Charge) 0 units SC ACHS [facility] Stop: 03/03/23 00:46 Last Admin: 02/02/23 12:50 Dose: 3 units Metoprolol Succinate (Metoprolol Succ 25mg Ext Rel Tab) 25 mg PO QAM [facility] Stop: 03/03/23 08:59 Last Admin: 02/02/23 08:24 Dose: Not Given Miscellaneous (Carbohydrates For Hypoglycemia ) 15 - 30 gm PO UD PRN PRN Reason: Hypoglycemia Protocol Stop: 03/03/23 00:46 Oxycodone HCl (Oxycodone Hcl Ir 5 Mg Tab (Immediate Release)) 10 mg PO QID [facility] Stop: 02/15/23 08:59 Last Admin: 02/02/23 12:51 Dose: 10 mg Trazodone HCl (Trazodone Hcl 100 Mg Tab) 100 mg PO HS [facility] Stop: 03/03/23 20:59 Last Admin: 02/01/23 21:39 Dose: 100 mg
[2023-02-02] MEDS: DOCUSATE SODIUM 100 MG CAP PO SCH (20:23)
[2023-02-02] MEDS: traZODone HCL 100 MG TAB PO SCH (20:24)
[2023-02-03] MEDS: HEPARIN SOD 5,000 UNIT/0.5 ML VIAL SQ SCH ×3 (06:00→21:42)
[2023-02-03] MEDS: amLODIPine BESYLATE 5 MG TAB PO SCH (08:23)
[2023-02-03] MEDS: DOXYCYCLINE HYCLATE 100 MG CAP PO SCH ×2 (08:23→21:41)
[2023-02-03] MEDS: METOPROLOL SUCC 25MG EXT REL TAB PO SCH (08:23)
[2023-02-03] MEDS: DOCUSATE SODIUM 100 MG CAP PO SCH ×2 (08:23→21:41)
[2023-02-03] MEDS: INSULIN ASPART PER UNIT CHARGE SC SCH ×4 (08:29→21:42)
[2023-02-03] MEDS: oxyCODONE HCL IR 5 MG TAB (IMMEDIATE RELEASE) PO SCH ×4 (08:29→21:09)
[2023-02-03 09:49] LABS: BUN Creatinine Ratio 22.1 (10-20); Calcium 8.5 mg/dl (8.6-10.3); Creatinine Clr Calc Pharmacy 55.8 ml/min; Est GFR (African American) 61.7 ml/min; Est GFR (Non-African American) 53.3 ml/min; Potassium 4.3 mmol/L (3.5-5.1)
--- NOTE | 2023-02-03 13:23 | XRay Report ---
XR chest 1V portable HISTORY: 72 years-old Male SOB acute shortness of breath COMPARISON: 02/01/2023 TECHNIQUE: AP view of the chest FINDINGS: Cardiac silhouette is enlarged. Chronic interstitial coarsening. Pulmonary vascular congestion. No pn eumothorax, large pleural effusion or lobar airspace consolidation. Degenerative changes of the shoul ders and spine. Cholecystectomy. Chronic right-sided rib fractures. IMPRESSION: Cardiomegaly with pulmonary vascular congestion. ACT 112: Negative or not required by law. The above report was generated using voice recognition software. It may contain grammatical, syntax o r spelling errors. Electronically signed by: Louis Johnson M.D. 02/03/2023 1:21 PM
--- NOTE | 2023-02-03 14:35 | Hospitalist Progress Note ---
Date of Service February 03, 2023 Assessment & Plan (1) Fever: Plan: Possibly from complicated bronchitis/atypical pneumonia Possible sepsis Has been getting doxycycline for possible bronchitis - continue Denies any fever and or chills and no shortness of breath at rest, initial procal negative, Covid/Flu/RSV PCR neg 01/31 Not any better today and remains weak and lethargic No shortness of breath at rest Prostate cancer, status post recent urologic procedure Denies any urinary symptoms UA examination does not support any UTI Blood cultures remain negative to date Chronic diastolic heart failure, some congestion on x-ray Valvular heart disease (mild MR/TR) Diuretics have been held 2/2 worsening renal function but Cr improved to 1.31 today CXR with evidence of congestion but patient without edema, feels dry, BNP [address] chest for better visualization of pulm dai vs infectious etiology Hypertension, slightly elevated 2/2 illness Remains stable CKD Creatinine slightly worse the past few days He was advised to drink about 1.5 L of fluid a day Monitor PRP-creatinine has gone up so his BUN Will give him a small amount of intravenous fluid and monitor PRP tomorrow Cr improved to 1.31 today DM2 on oral medications, well-controlled as of recent hemoglobin A1c of 5.8 last month Basal bolus insulin, ISS BG goal 1 10-1 40, carb count coverage Chronic anemia, hemoglobin at baseline Chronic back pain on narcotics Past tobacco abuse DVT prophylaxis. Heparin subcu Full code Patient seen in collaboration with Dr. Jaquez. Please see addendum. Admission and Anticipated Discharge Date Admission Date: February 02, 2023 Supervising Physician Co-Signing Physician Notes Attending addendum Patient was seen and examined in medical floor He has been weak and lethargic but denies any acute shortness of breath at rest His kidney function has been normalized On examination No apparent distress at rest Hemodynamically stable Chest-decreased breath sounds with minimal crackles at the bases Heart-S1, [id number] Abdomen-benign Extremities-negative for any edema His labs, medications and imaging studies reviewed Acute dehydration with weakness and tiredness, may have bronchitis Will have CT of the chest to evaluate lung condition further Agree with assessment and plan as outlined above by FRANKLIN Rabago Dr Subjective 02/01/2023 The patient was seen and examined in medical floor in presence of the He has been feeling much better since admission He was admitted with fever and weakness likely secondary to dehydration Denies any more fever and or chills, no abdominal pain, nausea or vomiting 02/02/2023 The patient was seen and examined in medical floor He has been weak and lethargic No fever and or chills, no pain His bowel is not moved yet 02/03/2023 The patient was seen and examined in medical floor Continues to feel weak and lethargic Has some nasal congestion. No F/C, CP, SOB, N/V, abd pain, dysuria Last bowel movement 01/31 Review of Systems Review of Systems: At least ten systems reviewed and negative except as noted in the HPI. Physical Exam Physical Exam: Gen: WD/WN, NAD, resting in bed, A&Ox3 HEENT: Normocephalic, atraumatic, conjunctivae moist, sclerae anicteric, mucous membranes moist Lung: Bibasilar rales, no wheezes/rhonchi Heart: Regular rate, regular rhythm, no murmurs, rubs, or gallops Abdomen: Soft, NT, ND +BS x 4 Extremities: no edema Skin: Warm, no rash Results & Data Results & Data Vital Signs (Past 12 Hours) Vital Signs Temp Pulse Resp BP Pulse Ox O2 Del Method 02/03/23 07:45 Room Air 02/03/23 07:33 37.1 C 63 18 138/58 L 95 Room Air Laboratory Results [facility] 02/03/23 09:16 Sodium 136 Potassium 4.3 Chloride 107 Carbon Dioxide 26 BUN 29 H Creatinine 1.31 D Glucose 130 H Calcium 8.5 L Diagnostic Findings Chest X-Ray 01/31/23 23:05 XR chest 1V portable HISTORY: 72 years-old Male cough acute cough COMPARISON: 01/16/2023 TECHNIQUE: AP view of the chest FINDINGS: Cardiac silhouette is enlarged. Atherosclerosis of the aorta. The patient is mildly rotated toward the left. Chronic right-sided rib fractures. Pulmonary vascular congestion with interstitial coarsening. Unchanged mild right hemidiaphragmatic elevation. Mild linear subsegmental bibasilar atelectasis. Degenerative changes of the shoulders and spine. IMPRESSION: Cardiomegaly with pulmonary vascular congestion. ACT 112: Negative or not required by law. The above report was generated using voice recognition software. It may contain grammatical, syntax or spelling errors. Electronically signed by: Louis Johnson M.D. 02/01/2023 8:11 AM Chest X-Ray 02/03/23 12:00 XR chest 1V portable HISTORY: 72 years-old Male SOB acute shortness of breath COMPARISON: 02/01/2023 TECHNIQUE: AP view of the chest FINDINGS: Cardiac silhouette is enlarged. Chronic interstitial coarsening. Pulmonary vascular congestion. No pneumothorax, large pleural effusion or lobar airspace consolidation. Degenerative changes of the shoulders and spine. Cholecystectomy. Chronic right-sided rib fractures. IMPRESSION: Cardiomegaly with pulmonary vascular congestion. ACT 112: Negative or not required by law. The above report was generated using voice recognition software. It may contain grammatical, syntax or spelling errors. Electronically signed by: Louis Johnson M.D. 02/03/2023 1:21 PM
[2023-02-03] MEDS ORDERED: bisacodyL 5 MG TABEC PO ONE (14:36)
[2023-02-03] MEDS ORDERED: POLYETHYLENE (MIRALAX) 17 GM PACK PO PRN (14:40)
--- NOTE | 2023-02-03 16:54 | CT Scan Report ---
CT chest diagnostic wo con CLINICAL HISTORY: vasc dai vs infectious TECHNIQUE: Multidetector row helical CT of the chest was performed. Coronal and sagittal reformations were obtained. Automated dose lowering techniques and/or adjustment according to patient size were u tilized for this exam. CT DOSE: 481.28 mGy.cm Comparison: Comparison is made to chest radiograph 02/03/[address] chest 01/01/2022 FINDINGS: Lungs and pleura: Bilateral pleural thickening is seen without effusions. Pleural calcifications are seen. Interstitial thickening is again seen. Interval stability of numerous pulmonary nodules includi ng a 5 mm nodule in the right upper lobe (series 4 image 29), 7 mm nodule in the lingula (image 161), 5 mm nodule in the right middle lobe (image 171), and 7 mm nodules in the bilateral lower lung (imag es 134 and 182). Heart and pericardium: Heart size is normal. No pericardial effusion. Vessels: Moderate atherosclerotic changes in the aorta and coronary arteries. Mediastinum and kina: Subcentimeter lymph nodes are seen. Chest wall and lower neck: Unremarkable. Abdomen: Patient is status post cholecystectomy. Bones: Degenerative changes of the thoracic spine. Old healed rib fractures are seen. IMPRESSION: Bilateral pleural thickening and interstitial lung disease are again seen, similar to prior exam. No evidence of consolidation to suggest pneumonia. ACT 112: Negative or not required by law. Electronically signed by: Alexis Rice M.D. 02/03/2023 4:51 PM
[2023-02-03] MEDS: traZODone HCL 100 MG TAB PO SCH (21:42)
[2023-02-03] MEDS: PROMETHAZINE HCL 6.25 MG in SODIUM CHLORIDE 0.9% 50 ML IV PRN (22:29)
[2023-02-04] MEDS: HEPARIN SOD 5,000 UNIT/0.5 ML VIAL SQ SCH (06:11)
[2023-02-04] MEDS: INSULIN ASPART PER UNIT CHARGE SC SCH ×2 (07:58→12:57)
[2023-02-04] MEDS: oxyCODONE HCL IR 5 MG TAB (IMMEDIATE RELEASE) PO SCH ×2 (08:01→12:59)
[2023-02-04] MEDS: DOXYCYCLINE HYCLATE 100 MG CAP PO SCH (08:01)
[2023-02-04] MEDS: DOCUSATE SODIUM 100 MG CAP PO SCH (08:01)
[2023-02-04] MEDS: amLODIPine BESYLATE 5 MG TAB PO SCH (08:01)
[2023-02-04] MEDS: METOPROLOL SUCC 25MG EXT REL TAB PO SCH (08:02)
[2023-02-04] MEDS ORDERED: FUROSEMIDE 40 MG TAB PO SCH (09:00)
[2023-02-04] MEDS: PROMETHAZINE HCL 6.25 MG in SODIUM CHLORIDE 0.9% 50 ML IV PRN (10:19)
--- NOTE | 2023-02-04 11:04 | XRay Report ---
KUB HISTORY: Acute generalized abdominal pain with constipation. constipation, eval for obstr COMPARISON: 09/17/2010 FINDINGS: Cholecystectomy. Nonobstructive bowel gas pattern. Moderate colonic fecal retention. There are 2 paired metallic density linear structures present within the pelvis. Cardiomegaly with chronic appearing interstitial coarsening. Renal shadows are obscured by bowel gas. No renal calculi. No uret eral calculi. No pneumoperitoneum or pneumatosis. Healed chronic right-sided rib fractures. No fractu re. IMPRESSION: 1. Nonobstructive bowel gas pattern. 2. Moderate colonic fecal retention. 3. Cholecystectomy. ACT 112: Negative or not required by law. The above report was generated using voice recognition software. It may contain grammatical, syntax o r spelling errors. Electronically signed by: Louis Johnson M.D. 02/04/2023 11:02 AM
[2023-02-04] MEDS ORDERED: SOD PHOSPHATE/SOD BIPHOSPHATE ENEMA 132 ML BTL PR STA (11:10)
--- NOTE | 2023-02-04 13:34 | Discharge Summary ---
Discharge Summary Date of Service February 04, 2023 Notes For Next Care Provider Complicated bronchitis in setting of known ILD Medication Changes From Visit Finish doxycycline course Admission HPI Per Admitting Provider History obtained from patient and records. Medical history significant for chronic diastolic heart failure (EF 55 to 59 %, TTE 2022), valvular heart disease (mild MR/TR), hypertension, history endocarditis, DM2 on oral medications, CRI (baseline creatinine 1.3-1.5), chronic anemia (baseline hemoglobin 12-13), NAFLD cirrhosis, prostate cancer, chronic back pain on narcotics, past tobacco abuse. Recent confinement January 15 to 2022 for decompensated heart failure. Patient had outpatient transrectal ultrasound-guided placement of prostate fiducial markers and SpaceOAR placement at [place], [place] 1 day after discharge. No problems postprocedure as per patient. 1 day history of malaise and fever symptoms. Poor appetite the whole day. Denies chest pain, SOB, abdominal pain, nausea, vomiting, no hematuria or dysuria symptoms. Temperature 101. Patient started coughing out junky yellow sputum upon arrival at the ER. 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 Admission Exam Per Admitting Provider GENERAL: Comfortable, slightly anxious, no respiratory distress SKIN: Pallor, warm HEENT: Pale palpebral conjunctivae, no ptosis, moist buccal mucosa NECK : Supple, no tenderness CHEST : Decreased breath sounds, no tenderness BACK : Chronic mid back tenderness HEART : RRR, no obvious murmurs ABDOMEN: Some distention, nontender EXTREMITIES : Minimal LE swelling, no LE tenderness, no other conspicuous deformities noted NEUROLOGIC : Coherent, no facial asymmetry, no other gross focality Principal Dx & Hospital Course #1 = Principal Diagnosis (1) Fever: This is a 72yo M with PMH of chronic diastolic heart failure (EF 55 to 59 %, TTE 2022), valvular 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 Covid/Flu/RSV PCR test negative on 01/31, procal negative. Repeat chest CT from 02/03 with bilateral pleural thickening and interstitial lung disease are again seen, similar to prior exam. No evidence of consolidation to suggest pneumonia. Considered UTI given recent urological procedure for prostate cancer but no urinary symptoms or abnormality of UA to indicate UTI. Final blood cultures remain negative. Constipation developed in setting of chronic narcotic use and immobility in hospital but resolved today with increased movement and bowel regimen. KUB without evidence of obstruction. Lasix held for a few days given worsening renal function but Cr back to baseline and home dose lasix resumed. Continue following with PCP to ensure adequate renal function on narcotics and resolution of URI. Patient co mfortable and hemodynamically stable at time of discharge home. Discharge Exam Gen: WD/WN, NAD, resting in bed, A&Ox3 HEENT: Normocephalic, atraumatic, conjunctivae moist, sclerae anicteric, mucous membranes moist Lung: Bibasilar rales, no wheezes/rhonchi Heart: Regular rate, regular rhythm, no murmurs, rubs, or gallops Abdomen: Soft, NT, ND +BS x 4 Extremities: no edema Skin: Warm, no rash Updated Medication List Medication Instructions Recorded Confirmed Type oxycodone 10 mg tablet 10 mg PO QID 01/02/22 01/31/23 History trazodone 100 mg tablet 100 mg PO HS 01/02/22 01/31/23 History metoprolol succinate 25 mg 25 mg PO QAM 01/15/23 01/31/23 History tablet,extended release 24 hr amlodipine 5 mg tablet 5 mg PO QAM 01/31/23 01/31/23 History cholecalciferol (vitamin D3) 25 25 mcg PO DAILY 01/31/23 01/31/23 History mcg (1,000 unit) tablet (Vitamin D3) empagliflozin 10 mg tablet 10 mg PO QAM 01/31/23 01/31/23 History (Jardiance) furosemide 40 mg tablet 40 mg PO QAM 01/31/23 01/31/23 History losartan 25 mg tablet 25 mg PO QAM 01/31/23 01/31/23 History doxycycline hyclate 100 mg capsule 100 mg PO BID #7 caps 02/04/23 Rx Hospital Stay Data Consultations 01/31/23 22:02 ED Decision to Admit Stat Diagnostic Imagining Performed 02/03/23 14:46 CT chest diagnostic wo con Routine Pending Results Patient Have Any Pending Studies at Discharge: No Discharge Instructions Given to Patient (Per Discharging Provider) MEDICATION CHANGES: Doxycycline 100mg by mouth twice daily x 4 days forcomplicated bronchitis. Add an over the counter stool softener like Colace 100mg 1-2x/day to prevent constipation while taking home narcotics. SUMMARY OF TEST RESULTS: You were admitted with a fever in the setting of complicated bronchitis/atypical pneumonia Covid/Flu/RSV PCR test negative on 01/[address] with bilateral pleural thickening and interstitial lung disease are again seen, similar to prior exam. No evidence of consolidation to suggest pneumonia No urinary symptoms or abnormality of UA to indicate UTI Final blood cultures remain negative. PENDING TEST RESULTS: None RECOMMENDATIONS FOR FOLLOW-UP: Follow up with PCP as scheduled. Complete antibiotic in its entirety. Continue medication regimen as scheduled aside from changes noted above. OTHER INSTRUCTIONS: Seek medical attention if you have: * temperature above 101 * chest pain or trouble breathing * abdominal pain, nausea, vomiting * diarrhea, dark stools or bloody stools * any unanswered questions or concerns Call 911 if symptoms are severe. Please take good care of yourself. Call if you have any questions or problems. You can reach a [facility] hospitalist on duty at [facility] 24 hours a day by calling [phone]. Total Time Total Time Spent Total Time Spent (In Minutes): 45 Supervising Physician Co-Signing Physician Notes Attending addendum The patient was seen and examined in medical floor He complained of some pain in the abdomen with nausea last night KUB showed-moderate amount of stool in the colon but no SBO Received enema and moved his bowel Has been feeling much better since then and he will be discharged On examination No apparent distress at rest Hemodynamically stable Will advised to drink more fluid and also take a stool laxative Labs and imaging studies reviewed Problem discussed with the patient Agree with assessment and plan as outlined above by FRANKLIN Rabago Dr
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
--- OUTSIDE RECORDS SUMMARY | 2023-02-05 13:16 | External Medical Summary | Summary of Care ---
Author Name Unknown Organization [facility] Address [address] [place] [address] Phone [phone] Care Team Providers Care Child And Adolescent Therapist Name Role Phone Jerzy Glez MD Primary Care Provider [phone] Reason for Referral * Medication Prior Authorization - Pending Review Specialty Diagnoses / Procedures Referred By Swapnil t Referred To Contact Diagnoses Other closed fracture of thoracic vertebra, unspecified thoracic vertebral level, sequela Amos Link DO [address] [place] [address] Referral ID Status Reason Start Date Expiration Date V isits Requested Visits Authorized [id number] Pending Review 999 999 Reason for Visit * Reason Onset Date Comments Medication Refill 01/27/2023 Encounter Details Date Type Department Care Team (Late st Contact Info) Description 01/27/2023 Refill [facility] [address] [place] [facility] [place] [phone] Jerzy Glez MD [address] [place] [address] Other closed fracture of thoracic vertebra, unspecified thoracic vertebral level, sequela; Chronic right-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) Allergies No known active allergiesdocumented as of this encounter (statuses as of 01/28/2023) Medications Medication Sig Dispensed Refills Start Date End Date Status Blood Glucose Monitoring Suppl (WakeMate) w/Device KITIndications:DM type 2, not at goal ([facility]),Type 2 diabetes mellitus with hemoglobin A1c goal of less than 8.0% ([facility]) Use to check sugar daily E11.9 1 Kit 0 01/31/2019 Active Glucose Blood (WakeMate) STRPIndications:DM type 2, not at goal ([facility]),Type 2 diabetes mellitus with hemoglobin A1c goal of less than 8.0% ([facility]) Use up check sugar daily E11.9 100 Strip 11 01/31/2019 Active ONETOUCH DELICA LANCETS FINE MISCIndications:DM type 2, not at goal ([facility]),Type 2 diabetes mellitus with hemoglobin A1c goal of less than 8.0% ([facility]) Use to test blood sugar once daily- [...] as of this encounter (statuses as of 01/28/2023) Active Problems Problem Noted Date Diagnosed Date [...] as of this encounter (statuses as of 01/28/2023) Resolved Problems Problem Noted Date Diagnosed Date [...] as of this encounter (statuses as of 01/28/2023) Immunizations Name Administration Dates Next Due COVID-19 mRNA, LNP-s, No Pre serve, 2-Dose Series ([employer]) 02/02/2021,06/14/2020,05/24/2020 COVID-19, LNP-s, No Preserve , Ellis-sucrose, [...] encounter Miscellaneous Notes * Telephone Encounter - Amos Link DO [...] Too soon * [facility]41 PM EDTPending Prescriptions: Disp Refills oxyCODONE HCl 10 MG Oral Tablet (Roxicodon*120 Ta*0 Sig: Take 1 Tablet by mouth in the morning and 1 Tablet at noon and 1 Tablet in the evening and 1 Tablet before bedtime. Refused Prescriptions: Disp Refills Metoprolol Succinate ER 25 MG Oral Tablet *90 Tab*2 Sig: Take 1 Tablet by mouth in the [facility] ng. Refused By: SUMAYA KOCH Reason for Refusal: Too soon * Telephone Encounter - Sumaya Koch [facility] - 01/27/2023 8:40 PM EDT I have reviewed the patients controlled substance dispensing history in the Prescription Drug Monitoring Program in compliance with the [facility] regulations before prescribing a controlled substance. PDMP [...] for refill: 01/27/23 Pharmacy: [id number] [facility] Is this request for a controlled substance? [...] in Results Review. Please approve if appropriate. Thanks, Sumaya Koch PharmD Clinical Pharmacist [facility] ([facility]) [phone] 01/27/2023, 8:40 PM documented in this encounter Plan of Treatment Upcoming Encounters Date Type Department Care Team (Latest Contact Info) Description 3 10:00 AM EST Documentation Radiation Oncology Cancer [facility] [place] [address] [facility] [place] [address] Jackson Munoz MD [address] [facility] [place] [address] 3 10:00 AM EST Documentation Radiation Oncology Cancer [facility] [place] [address] [facility] [place] [address] Jackson Munoz MD [address] [facility] [place] [address] 3 11:00 AM EST Documentation Radiation Oncology Cancer [facility] [place] [address] [facility] [place] [address] Jackson Munoz MD [address] [facility] [place] [address] Ctr, Nurse Rad/Onc [facility] [address] [facility] [place] [address] 3 11:20 AM EST Office Visit Hepatology, [facility] [address] [address] Kaity Comer DO [address] [facility] [place] [address] 4 9:45 AM EST Cardiac Studies Cardiac Studies, [address] [address] 4 10:30 AM EST Office Visit Nephrology, B[facility] Cerv[facility] [address] [place] [address] Luz Marina De Leon PA-C [address] [facility] [place] [address] 4 11:15 AM EST Hospital Encounter ENDO OSS, Endoscopy Room [facility] [address] [place] [phone] [address] Davis MD [address] [place] [address] 4 11:15 AM EST - 4 11:45 AM EST Surgery ENDO [facility], Endoscopy Room [facility] [address] [place] [phone] Lane Davis MD [address] [place] [address] ESOPHAGOGASTRODUODENOSCOPY (EGD), FLEXIBLE, TRANSORAL, DIAGNOSTIC 4 10:00 AM EST Office Visit [place] [address] [place] [phone] Deb Camara MD [address] [place] [address] 4 9:30 AM EDT Office Visit Cardiology, [facility] [address] [employer] [place] [address] Sandra Laura CRNP [address] [place] [address] Scheduled Procedures Name Priority Associated Diagnoses Date/Ti [...] 01/30/2019, 08/06/2013, Additional history exists COVID-19 Vaccine (2022- season) 2022 10/08/2021, 02/02/2021, 06/14/2020, Additional history exists HbA1c 07/06/2023 01/04/2023, 11/2022, 08/17/2021, Additional history exists GFR 07/23/2023 01/21/2023, 12/26, 10/07/2022, Additional history exists Albumin/Creatinine Ratio 10/08/2023 023, 08/17/2021, 07/15/2020, Additional history exists CKD HGB USE SMARTSET 51585 10/08/202310/07, 08/16/2022, 08/16/2022, Additional history exists CKD PHOS USE SMARTSET 11372 10/08/202309/25, 08/17/2021, 03/06/2020, Additional history exists B-12 [...] this encounter Medical Devices Implanted Type Area Balloon Seller Device Identifier Shelf Expiration Date Model / Serial / Lot Lens 19.0 [id number] - [id number] - [id number] Implanted:Qty: 1 on 08/09/2016 by Madi Frederick MD at OR [facility] Right: Eye KIMMIE : SURGICAL 2018 [id number] / [id number] / documented as of this encounter [...] and were consensually agreed upon. Care Teams Child And Adolescent Therapist Relationship Specialty Start Date End Date Jerzy Glez MD [address] [place] [address] PCP - General 12/30/99 documented as of this encounter
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
--- OUTSIDE RECORDS SUMMARY | 2023-02-05 13:17 | External Medical Summary | Summary of Care ---
Author Name Unknown Organization [facility] Address [address] [facility] [facility] [address] Phone [phone] Care Team Providers Care Occupational Therapy Program Director Name Role Phone Jerzy Glez MD Primary Care Provider [phone] Encounter Details Date Type Department Care Team (Late st Contact Info) Description 01/26/2023 10:05 AM EDT Nurse Only Radiation Oncology [facility] [place] [address] [facility] [place] [address] Ctr, Nurse Rad/Onc Cancer [address] [facility] [place] [address] Allergies No known active allergiesdocumented as of this encounter (statuses as of 01/26/2023) Medications Medication Sig Dispensed Refills Start Date End Date Status Blood Glucose Monitoring Suppl (ONETOUCH VERIO) w/Device KITIndications:DM type 2, not at goal (HCC),Type 2 diabetes mellitus with hemoglobin A1c goal of less than 8.0% (HCC) Use to check sugar daily E11.9 1 Kit 0 01/31/2019 Active Glucose Blood (ONETOUCH VERIO) STRPIndications:DM type 2, not at goal (HCC),Type 2 diabetes mellitus with hemoglobin A1c goal of less than 8.0% (HCC) Use up check sugar daily E11.9 100 Strip 11 01/31/2019 Active CHIKA ROGERS FINE MISCIndications:DM type 2, not at goal ([facility]),Type 2 diabetes mellitus with hemoglobin A1c goal of less than 8.0% ([facility]) Use to test blood sugar once daily- dx E11.9 1 Each 5 01/31/2019 Active traZODone HCl 100 MG Oral Tablet (Desyrel)Indications: Persistent insomnia Take 1 Tablet by mouth at bedtime. 90 Tablet 3 09/01/2022 Active oxyCODONE HCl 10 MG Oral Tablet (Roxicodone)Indicatio ns:Other closed fracture of thoracic vertebra, unspecified thoracic vertebral level, sequela Take 1 Tablet by mouth in the morning and 1 Tablet at noon and 1 Tablet in the evening and 1 Tablet before bedtime. 120 Tablet 0 12/28/2022 Active Magnesium 125 MG Oral Capsule Take by mouth. 0 Active Vitamin D3 25 MCG (1000 UT) Oral Capsule Take by mouth. 0 Active Metoprolol Succinate ER 25 MG Oral Tablet Extended Release 24 Hour (toPROL XL)Indications:Chroni c right-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) Take 1 Tablet [...] 01/21/2023 Active LORazepam 0.5 MG Oral Tablet (Ativan)Indications:A nxiety 2 tabs 45 minutes before MRI. Repeat 1 tab 15 minutes before MRI if needed 3 Tablet 0 01/21/2023 Active documented as of this encounter (statuses as of 01/26/2023) Active Problems Problem Noted Date Diagnosed Date [...] as of this encounter (statuses as of 01/26/2023) Resolved Problems Problem Noted Date Diagnosed Date [...] as of this encounter (statuses as of 01/26/2023) Immunizations Name Administration Dates Next Due COVID-19 mRNA, LNP-s, No Pre serve, 2-Dose Series (Stereotypes) 02/02/2021,06/14/2020,05/24/2020 COVID-19, LNP-s, No Preserve , Ellis-sucrose, [...] on file documented as of this encounter Nursing Notes * Rachel Salinas LPN - 01/26/2023 10:18 AM EDT Patient teaching Record - Radiation Therapy: See Patient and Family education documentation flowsheet for further information. Knowledge of Radiation Therapy: 1. Identifies radiation therapy as a treatment therapy for the patient's particular disease: yes 2. Understands the goal of radiation therapy (curative,palliative): yes 3. Describes the procedure used in external therapy: A. Use of simulator to determine beam direction: yes B. Special care of skin under tattoos or skin dyes: yes C. Removal of metal objects prior to treatment: yes D. Length of treatments: yes Adverse Effects and Self Care Management: 1. List three self-care management techniques associated with common occurring side effects: A. Skin reactions: yes B. Nutritional deficiencies: no C. Stomatitis: no D. Diarrhea: yes E. Alopecia: no F. Myelosuppression: no 2. Identifies signs and symptoms to report to health care persons: yes Compliance: 1. Verbalizes an understanding of home care maintenance while undergoing radiation treatments: yes A. Maintains optimal rest/activity pattern: yes B. Seeks/utilizes community resources as necessary: yes C. States intention to comply with treatment plan: yes D. Verbalizes reduced anxiety related to radiation treatments: yes Patient/Family Response: Reviewed goals of radiation therapy and potential side effects. Patient verbalized understanding of the education provided and handouts were given for reference. Instructed patient to contact Radiation Oncology nursing staff with any future questions or concerns. Radiation Oncology number provided. Handouts given to patient: "Radiation Therapy-You" - yes "Eating hints" - yes "Information for patients receiving radiation therapy" - yes "Instruction for patients receiving radiation therapy" - yes "Skin care" - yes "Site Specific" Pelvis- yes Business card provided: yes Signature of person giving instruction:Rachel Salinas LPN documented in this encounter Plan of Treatment Upcoming Encounters Date Type Department Care Team (Latest Contact Info) Description 3 10:00 AM EST Documentation Radiation Oncology Cancer [facility] [place] [address] [facility] [place] [address] Jackson Munoz MD [address] [facility] [place] [address] 3 10:00 AM EST Documentation Radiation Oncology Cancer [facility] [place] [address] [facility] [place] [address] Jackson Munoz MD [address] [facility] [place] [address] 3 11:20 AM EST Office Visit Hepatology, [facility] [address] [facility] [place] [address] Kaity Comer DO [address] [place] [address] 4 9:45 AM EST [place]iac [place] [address] [facility] [place] [address] 4 10:30 AM EST Office Visit Nephrology, [facility] Cerv[facility] [address] [place] [address] ZeLuz Marina mills PA-C [address] [place] [address] 4 11:15 AM EST Hospital Encounter ENDO [facility], Endoscopy Room [facility] [address] [place] [phone] [address] Davis MD [address] [place] [address] 4 11:15 AM EST - 4 11:45 AM EST Surgery ENDO [facility], Endoscopy Room [facility] [address] [place] [phone] Lane Davis MD [address] [place] [address] ESOPHAGOGASTRODUODENOSCOPY (EGD), FLEXIBLE, TRANSORAL, DIAGNOSTIC 4 10:00 AM EST Office Visit [facility] [address] [place] [phone] Deb Camara MD [address] [place] [address] 4 9:30 AM EDT Office Visit Cardiology, [facility] [address] [place] [address] Sandra Laura CRNP [address] [place] [address] Scheduled Procedures Name Priority Associated Diagnoses Date/Ti [...] Additional history exists CKD HGB USE SMARTSET 44817 10/08/202310/07, 08/16/2022, 08/16/2022, Additional history exists CKD PHOS USE SMARTSET 30031 10/08/202309/25, 08/17/2021, 03/06/2020, Additional history exists B-12 [...] this encounter Medical Devices Implanted Type Area Oracle Manager Device Identifier Shelf Expiration Date Model / Serial / Lot Lens 19.0 [id number] - [id number] - [id number] Implanted:Qty: 1 on 08/09/2016 by Madi Frederick MD at OR [facility] Right: Eye KIMMIE : SURGICAL 2018 [id number] / [id number] / documented as of this encounter Advance Directives Latest Code Status on File Code Status Date Activated Date Inactivated Comments Full Code 08/09/2016 2:37 PM 08/09/2016 7:17 PM This order reflects the patients wishes and were consensually agreed upon. Care Teams Occupational Therapy Program Director Relationship Specialty Start Date End Date Jerzy Glez MD [address] [place] [facility] [place] [address] PCP - General 12/30/99 documented as of this encounter
--- OUTSIDE RECORDS SUMMARY | 2023-02-05 13:17 | External Medical Summary | Summary of Care ---
Author Name Unknown Organization [facility] Address [address] [place] [address] Phone [phone] Care Team Providers Care Closet Organizer Name Role Phone Jerzy Glez MD Primary Care Provider Reason for Visit * Reason Comments Outpatient Testing Encounter Details Date Type Department Care Team (Late st Contact Info) Description 01/21/2023 2:30 PM EDT Laboratory Laboratory, [place] [address] [place] [phone] [facility], Laboratory [address] [place], [place] [phone] Acute on chronic diastolic congestive heart failure (HCC); Chronic heart failure with preserved ejection fraction (HCC); Chronic kidney disease, stage 3a (HCC); HTN, goal below 130/80; Cirrhosis of liver with ascites, unspecified hepatic cirrhosis type Allergies No known active allergiesdocumented as of this encounter (statuses as of 01/21/2023) Medications Medication Sig Dispensed Refills Start Date End Date Status Blood Glucose Monitoring Suppl (ONETOUCH VERIO) w/Device KITIndications:DM type 2, not at goal ([facility]),Type 2 diabetes mellitus with hemoglobin A1c goal of less than 8.0% ([facility]) Use to check sugar daily E11.9 1 Kit 0 01/31/2019 Active Glucose Blood (ONETOUCH VERIO) STRPIndications:DM type 2, not at goal ([facility]),Type 2 diabetes mellitus with hemoglobin A1c goal of less than 8.0% ([facility]) Use up check sugar daily E11.9 100 Strip 11 01/31/2019 Active ONETOUCH DELICA LANCETS FINE MISCIndications:DM type 2, not at goal (HCC),Type 2 diabetes mellitus with hemoglobin A1c goal of less than 8.0% ([facility]) Use to test blood sugar [...] as of this encounter (statuses as of 01/21/2023) Active Problems Problem Noted Date Diagnosed Date [...] as of this encounter (statuses as of 01/21/2023) Resolved Problems Problem Noted Date Diagnosed Date [...] as of this encounter (statuses as of 01/21/2023) Immunizations Name Administration Dates Next Due COVID-19 mRNA, LNP-s, No Pre serve, 2-Dose Series ([employer]) 02/02/2021,06/14/2020,05/24/2020 COVID-19, LNP-s, No Preserve , Ellis-sucrose, Ages 12+ (Pfizer) 10/08/2021 Pneumococcal Conjugate Vacc, 13 Valent (Prevnar) 03/19/2015 Pneumococcal Polysaccharide PPV23 (Pneumovax) 08/09/2013 SEASONAL INFLUENZA, PF, 6 M & Above, IM , (FLULAVAL or FLUZONE) 12/08/2019 Seasonal Influenza, Quadriva lent Hd (Fluzone Hd) 12/22/2022,12/19/2020 Seasonal Influenza, Quadriva lent, No Preserve, IM 01/09/2018,01/22/2016,03/06/2015 01/21/2017 Seasonal Influenza, Split, I IV3, With Preserve, Inj 02/06/2013,02/10/2012,01/26/2011,1107/2009,01/30/2009,02/08/2006 Seasonal Influenza, Trivalen t, Adjuvanted, 65+ yrs [...] on file documented as of this encounter Plan of Treatment Upcoming Encounters Date Type Department Care Team (Latest Contact Info) Description 3 8:00 AM EDT Appointment Radiology Estefania LEVY [address] [place] [address] 3 9:00 AM EDT Documentation [facility] [address] [place] [address] Jackson Munoz MD [address] [place] [address] 3 10:05 AM EDT Nurse Only Radiation Oncology [facility] [address] [place] [address] Ctr, Nurse Rad/Onc Cancer [address] [place] [address] 3 11:20 AM EST Office Visit Hepatology, [facility] [address] [place] [address] Kaity Comer DO [address] [place] [address] 4 9:45 AM EST Cardiac Studies Cardiac Studies, [place] [address] [facility] [place] [address] 4 10:30 AM EST Office Visit Nephrology, [facility] [address] [place], [place] [address] Luz Marina De Leon PA-C [address] [facility] [place], [place] [address] 4 11:15 AM EST Hospital Encounter ENDO [facility], Endoscopy Room [facility] [address] [place] [phone] Lane Davis MD [address] [place] [address] 4 11:15 AM EST - 4 11:45 AM EST Surgery ENDO [facility], Endoscopy Room [facility] [address] [place] [phone] Lane Davis MD [address] [place], [place] [address] ESOPHAGOGASTRODUODENOSCOPY (EGD), FLEXIBLE, TRANSORAL, DIAGNOSTIC 4 10:00 AM EST Office Visit [facility], [place] [address] [facility] [phone] Deb Camara [facility] [address] [facility] [address] 4 9:30 AM EDT Office Visit Cardiology, [facility] [address] [place], [place] [address] Sandra Laura CRNP [address] [place] [address] Pending Results Name Type Priority Associated Diagnoses Date /Time COMPREHENSIVE METABOLIC PANEL Lab Routine Acute on chronic diastolic congestive heart failure (HCC) Chronic heart failure with preserved ejection fraction (HCC) Chronic kidney disease, stage 3a (HCC) HTN, goal below 130/80 Cirrhosis of liver with ascites, unspecified hepatic cirrhosis type 01/21/2023 2:37 PM EDT BNP, NT-PRO Lab Routine Acute on chronic diastolic congestive heart failure (HCC) Chronic heart failure with preserved ejection fraction (HCC) HTN, goal below 130/80 01/21/2023 2:37 PM EDT Scheduled Procedures Name Priority Associated Diagnoses Date/Ti [...] 10/08/2021, 02/02/2021, 06/14/2020, Additional history exists GFR 07/06/2023 01/04/2023, 09/25, 08/16/2022, Additional history exists HbA1c 07/06/2023 01/04/2023, 01/0 11/2022, 08/17/2021, Additional history exists Albumin/Creatinine Ratio 10/08/2023 023, 08/17/2021, 07/15/2020, Additional history exists CKD HGB USE SMARTSET 21177 10/08/202310/07, 08/16/2022, 08/16/2022, Additional history exists CKD PHOS USE SMARTSET 08794 10/08/202309/25, 08/17/2021, 03/06/2020, Additional history exists B-12 [...] this encounter Medical Devices Implanted Type Area Sash Installer Device Identifier Shelf Expiration Date Model / Serial / Lot Lens 19.0 [id number] - [id number] - [id number] Implanted:Qty: 1 on 08/09/2016 by Madi Frederick MD at OR [facility] Right: Eye KIMMIE : SURGICAL 2018 [id number] / [id number] / documented as of this encounter Visit Diagnoses Diagnosis Acute on chronic diastolic congestive heart failure (HCC) Acute on chronic diastolic heart failure Chronic heart failure with preserved ejection fraction (HCC) Chronic kidney disease, stage 3a (HCC) HTN, goal below 130/80 Unspecified essential hypertension Cirrhosis of liver with ascites, unspecified hepatic cirrhosis type Intestinal metaplasia of stomach documented in this encounter Advance Directives Latest Code Status on File Code Status Date Activated Date Inactivated Comments Full Code 08/09/2016 2:37 PM 08/09/2016 7:17 PM This order reflects the patients wishes and were consensually agreed upon. Care Teams Closet Organizer Relationship Specialty Start Date End Date Jerzy Glez MD [address] [place] [address] PCP - General 12/30/99 documented as of this encounter
--- OUTSIDE RECORDS SUMMARY | 2023-02-05 13:17 | External Medical Summary | Summary of Care ---
Author Name Unknown Organization [facility] Address [address] [place] [facility] [place] [address] Phone [phone] Care Team Providers Care Early Childhood Education Specialist Name Role Phone Jerzy Glez MD Primary Care Provider [phone] Reason for Visit * Reason Comments Outpatient Testing Encounter Details Date Type Department Care Team Description 01/04/2023 Laboratory Laboratory, [facility] [address] [facility] [phone] [facility] [address] [facility] [place] [address] History of prostate cancer; Encounter for long-term (current) use of other medications; Other specified disorders of prostate Allergies No known active allergiesdocumented as of this encounter (statuses as of 01/04/2023) Medications Medication Sig Dispensed Refills Start Date End Date Status Blood Glucose Monitoring Suppl (ONETOUCH VERIO) w/Device KITIndications:DM type 2, not at goal (HCC),Type 2 diabetes mellitus with hemoglobin A1c goal of less than 8.0% ([facility]) Use to check sugar daily E11.9 1 Kit 0 01/31/2019 Active Glucose Blood (ONETOUCH VERIO) STRPIndications:DM type 2, not at goal (HCC),Type 2 diabetes mellitus with hemoglobin A1c goal of less than 8.0% ([facility]) Use up check sugar daily E11.9 100 Strip 11 01/31/2019 Active HCIKA MONROE MISCIndications:DM type 2, not at goal ([facility]),Type 2 diabetes mellitus with hemoglobin A1c goal of less than 8.0% ([facility]) Use to test blood sugar once daily- dx E11.9 1 Each 5 01/31/2019 Active Metoprolol Succinate ER 25 MG Oral Tablet Extended Release 24 Hour (toPROL XL)Indications:Home Companion ede right-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) Take 1 Tablet by mouth in the morning. 90 Tablet 3 04/08/2022 Active traZODone HCl 100 MG Oral Tablet (Desyrel)Indication s:Persistent insomnia Take 1 Tablet by mouth at bedtime. 90 Tablet 3 09/01/2022 Active Ciprofloxacin HCl 500 MG Oral Tablet (Cipro) Take 1 Tablet by mouth in the morning and 1 Tablet before bedtime. Start the day before the biopsy. 6 Tablet 0 09/22/2022 Active Additional Information Patient not taking.Reported on 12/17/2022 metFORMIN HCl 500 MG Oral Tablet (Glucophage)Indicat ions:DM type 2, not at goal ([facility]) TAKE 1 TABLET BY MOUTH 2 TIMES A DAY WITH MORNING AND EVENING MEALS 180 Tablet 1 09/24/2022 Active LORazepam 0.5 MG Oral Tablet (Ativan)Indications :Anxiety 2 tabs 45 minutes before MRI. Repeat 1 tab 15 minutes before MRI if needed 3 Tablet 0 11/22/2022 Active Furosemide 20 MG Oral Tablet (Lasix)Indications: Chronic right-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) TAKE HALF A TABLET BY MOUTH ONCE A DAY ON TUESDAY, TUESDAY, AND TUESDAY ONLY. 15 Tablet 3 12/21/2022 Active Additional Information Patient taking differently: Take WHOLE TABLET BY MOUTH ONCE A DAY ON TUESDAY, TUESDAY, AND TUESDAY ONLY., Reported on 01/04/2023 oxyCODONE HCl 10 MG Oral Tablet (Roxicodone)Indicat ions:Other closed fracture of thoracic vertebra, unspecified thoracic vertebral level, sequela Take 1 Tablet by mouth in the morning and 1 Tablet at noon and 1 Tablet in the evening and 1 Tablet before bedtime. 120 Tablet 0 12/28/2022 Active amLODIPine Besylate 2.5 MG Oral Tablet (Norvasc)Indication s:HTN, goal below 130/80 Take 1 Tablet by mouth in the morning. 30 Tablet 5 12/28/2022 Active documented as of this encounter (statuses [...] mRNA, LNP-s, No Pre serve, 2-Dose Series (Pfizer) 02/02/2021,06/14/2020,05/24/2020 COVID-19, LNP-s, No Preserve , Ellis-sucrose, [...] 01/20/20 Hospital Encounter Surgery [place] Ho MD [address] [place] [address] 01/20/20 Surgery [facility] Ho MD [address] [place] [address] TRANSPERINEAL PLACEMENTBIODEGRADABLE MATERIAL, TOI-PROSTATIC 01/27/20 Appointment Radiology 01/27/20 Documentation Radiation Oncology Jackson Munoz MD [address] [facility] [place] [address] 01/27/20 Nurse Only Radiation Oncology Ctr, Nurse Rad/Onc Cancer [address] [facility] [place] [address] 02/22/20 Office Visit Gastroenterology Kaity Comer DO [address] [place] [address] 04/13/19 24 Office Visit Nephrology Luz Marina De Leon [facility]C [address] [facility] [address] 05/09/19 [address] Davis MD [address] [place] [address] 05/09/[address] Davis MD [address] [place] [address] ESOPHAGOGASTRODUODENOSCOPY (EGD), FLEXIBLE, TRANSORAL, DIAGNOSTIC 07/07/19 24 Office Visit Cardiology Sandra Laura CRNP [address] [place] [address] Pending Results Name Type Priority Associated Diagnoses Date /Time BASIC METABOLIC PANEL Lab Routine History of prostate cancer 01/04/2023 3:11 PM EDT HEMOGLOBIN A1C Lab Routine Encounter for long-term (current) use of other medications 01/04/2023 3:11 PM EDT VITAMIN B12 Lab Routine Encounter for long-term (current) use of other medications 01/04/2023 3:11 PM EDT CULTURE, URINE, QUANTITATIVE Lab Routine History of prostate cancer Other specified disorders of prostate 01/04/2023 3:13 PM EDT Scheduled Procedures Name Priority Associated Diagnoses Date/Ti az TRANSPERINEAL PLACEMENTBIODE GRADABLE MATERIAL, TOI-PROSTATIC Prostate cancer [...] 07/27, 02/16/2021, Additional history exists COVID-19 Vaccine ( season) 2022 10/08/2021, 02/02/2021, 06/14/2020, Additional history exists GFR 04/09/2023 10/07/2022, 07/27, 07/26/2022, Additional history exists Albumin/Creatinine Ratio 10/08/2023 023, 08/17/2021, 07/15/2020, Additional history exists CKD HGB USE SMARTSET 00165 10/08/202310/07, 08/16/2022, 08/16/2022, Additional history exists CKD PHOS USE SMARTSET 69737 10/08/202309/25, 08/17/2021, 03/06/2020, Additional history exists Lipid [...] this encounter Medical Devices Implanted Type Area Bike Shop Manager Device Identifier Shelf Expiration Date Model / Serial / Lot Lens 19.0 [id number] - [id number] - [id number] Implanted:Qty: 1 on 08/09/2016 by Madi Frederick MD at OR [facility] Right: Eye KIMMIE : SURGICAL 2018 [id number] / [id number] / documented as of this encounter Visit Diagnoses Diagnosis History of prostate cancer Personal history of malignant neoplasm of prostate Encounter for long-term (current) use of other medications Other specified disorders of prostate Prostate cancer (HCC) Malignant neoplasm of prostate Intestinal metaplasia of stomach documented in this encounter Advance Directives Latest Code Status on File Code Status Date Activated Date Inactivated Comments Full Code 08/09/2016 2:37 PM 08/09/2016 7:17 PM This order reflects the patients wishes and were consensually agreed upon. Care Teams Early Childhood Education Specialist Relationship Specialty Start Date End Date Jerzy Glez MD [address] [place] [address] PCP - General 12/30/99 documented as of this encounter
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
--- OUTSIDE RECORDS SUMMARY | 2023-02-05 13:17 | External Medical Summary | Summary of Care ---
Author Name Unknown Organization [facility] Address [address] [place] [address] Phone [phone] Care Team Providers Care Pre Kindergarten Teacher Name Role Phone Sabrina Glez MD Primary Care Provider [phone] Reason for Visit * Reason Onset Date Comments Medication Refill 01/17/2023 Encounter Details Date Type Department Care Team (Late st Contact Info) Description 01/17/2023 Refill [facility] [address] [place] [address] Sabrina Glez MD [address] [place] [address] Chronic right-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) Allergies No known active allergiesdocumented as of this encounter (statuses as of 01/18/2023) Medications Medication Sig Dispensed Refills Start Date [...] E11.9 100 Strip 11 01/31/2019 Active CHIKA MONROE MISCIndications:D M type 2, not at goal ([facility]),Type 2 diabetes mellitus with hemoglobin A1c goal of less than 8.0% ([facility]) Use to test blood sugar [...] (Glucophage)Indic ations:DM type 2, not at goal ([facility]) TAKE 1 TABLET BY MOUTH 2 TIMES A DAY WITH MORNING AND EVENING MEALS 180 Tablet 1 09/24/2022 Active Furosemide 20 MG Oral Tablet (Lasix)Indication [...] the morning. 30 Tablet 5 12/28/2022 Active Magnesium 125 MG Oral Capsule Take by mouth. 0 Active Vitamin D3 25 MCG (1000 UT) Oral Capsule Take by mouth. 0 Active LORazepam 0.5 MG Oral Tablet (Ativan)Indicatio ns:Anxiety 2 tabs 45 minutes before MRI. Repeat 1 tab 15 minutes before MRI if needed 3 Tablet 0 01/05/2023 Active Metoprolol Succinate ER 25 MG Oral Tablet Extended Release 24 Hour (toPROL XL)Indications:Ch ronic right-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) Take 1 Tablet by mouth in the morning. 90 Tablet 2 01/18/2023 Active Metoprolol Succinate ER 25 MG Oral Tablet Extended Release 24 Hour (toPROL XL)Indications:Ch ronic right-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) Take 1 Tablet by mouth in the morning. 90 Tablet 3 04/08/2022 3 Discontinue d(Refill) documented as of this encounter (statuses as of 01/18/2023) Active Problems Problem Noted Date Diagnosed Date [...] as of this encounter (statuses as of 01/18/2023) Resolved Problems Problem Noted Date Diagnosed Date [...] as of this encounter (statuses as of 01/18/2023) Immunizations Name Administration Dates Next Due COVID-19 mRNA, LNP-s, No Pre serve, 2-Dose Series ([employer]) 02/02/2021,06/14/2020,05/24/2020 COVID-19, LNP-s, No Preserve , Ellis-sucrose, Ages 12+ ([employer]) 10/08/2021 Pneumococcal Conjugate Vacc, 13 Valent (Prevnar) [...] encounter Miscellaneous Notes * Telephone Encounter - Vinita Hyde, [facility] - 01/18/2023 11:27 AM EDTSigned Prescriptions: Disp Refills Metoprolol Succinate ER 25 MG Oral Tablet *90 Tab*2 Sig: Take 1 Tablet by mouth in the morning.Authorizing Provider: SABRINA GLEZ User: VINITA HYDERefcrystal Prescriptions: Disp Refills Metoprolol Succinate ER 25 MG Oral Tablet *90 Tab*3 Sig: Take 1 Tablet by mouth in the morning.Refused By: VINITA HYDE for Refusal: Too soon documented in this encounter Plan of Treatment Upcoming Encounters Date Type Department Care Team (Latest Contact Info) Description 3 8:00 AM EDT Hospital Encounter OR [facility], Operating Room, [address] [address] Hill Ho MD [address] [place] [address] 3 8:00 AM EDT - 3 9:03 AM EDT Surgery OR [facility], Operating Room, [address] [address] Hill Ho MD [address] [place] [address] TRANSPERINEAL PLACEMENTBIODEGRADABLE MATERIAL, TOI-PROSTATIC 3 2:00 PM EDT Office Visit [facility] [address] [place] [address] Deb Camara MD [address], [place] [phone] 3 8:00 AM EDT Appointment Radiology Estefania LEVY [address] [place] [address] 3 9:00 AM EDT [facility] [address] [place] [address] Jackson Munoz MD [address] [place] [address] 3 10:05 AM EDT Nurse [facility] [address] [place] [address] Ctr, Nurse Rad/Onc Cancer [address] [place] [address] 3 11:20 AM EST Office Visit Hepatology, [facility] [address] [place] [address] Kaity Comer DO [address] [place] [address] 4 10:30 AM EST Office Visit Nephrology, [facility] [address] [place] [address] ZemaLuz Marina gentile PA-C [address] [place] [address] 4 11:15 AM EST Hospital Encounter ENDO [facility], Endoscopy Room [facility] [address] [place] [phone] [address] Davis MD [address] [place] [address] 4 11:15 AM EST - 4 11:45 AM EST Surgery ENDO [facility], Endoscopy Room [facility] [address] [place] [phone] Lane Davis MD [address] [place] [address] ESOPHAGOGASTRODUODENOSCOPY (EGD), FLEXIBLE, TRANSORAL, DIAGNOSTIC 4 9:30 AM EDT Office Visit Cardiology, [facility] [address] [place] [address] Sandra Laura CRNP [address] [place] [address] Scheduled Procedures Name Priority Associated Diagnoses Date/Ti me TRANSPERINEAL PLACEMENTBIODE GRADABLE MATERIAL, TOI-PROSTATIC Prostate cancer (HCC) 01/19/2023 8:00 AM EDT PLACEMENT INTERSTITIAL DEVIC E FOR RADIATION THERAPY GUIDANCE PROSTATE VIA NEEDLE ANY APPROACH Prostate cancer (HCC) 01/19/2023 8:00 AM EDT ESOPHAGOGASTRODUODENOSCOPY ( EGD), FLEXIBLE, TRANSORAL, [...] Additional history exists CKD HGB USE SMARTSET 04412 10/08/202310/07, 08/16/2022, 08/16/2022, Additional history exists CKD PHOS USE SMARTSET 01003 10/08/202309/25, 08/17/2021, 03/06/2020, Additional history exists B-12 [...] this encounter Medical Devices Implanted Type Area It Support Consultant Device Identifier Shelf Expiration Date Model / Serial / Lot Lens 19.0 [id number] - [id number] - [id number] Implanted:Qty: 1 on 08/09/2016 by Madi Frederick MD at [facility] Right: Eye KIMMIE : SURGICAL 2018 [id number] / [id number] / documented as of this encounter Visit Diagnoses Diagnosis Chronic right-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) Congestive heart failure, unspecified Prostate cancer (HCC) Malignant neoplasm of prostate Intestinal metaplasia of stomach documented in this encounter Advance Directives Latest Code Status on File Code Status Date Activated Date Inactivated Comments Full Code 08/09/2016 2:37 PM 08/09/2016 7:17 PM This order reflects the patients wishes and were consensually agreed upon. Care Teams Pre Kindergarten Teacher Relationship Specialty Start Date End Date Sabrina Glez MD [address] [place] [facility] [place] [address] PCP - General 12/30/99 documented as of this encounter
--- OUTSIDE RECORDS SUMMARY | 2023-02-05 13:17 | External Medical Summary | Summary of Care ---
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) Allergies No known active allergiesdocumented as of this encounter (statuses as of 01/04/2023) Medications Medication Sig Dispensed Refills Start Date End Date Status Blood Glucose Monitoring Suppl (ONETOUCH VERIO) w/Device KITIndications:DM type 2, not at goal (HCC),Type 2 diabetes mellitus with hemoglobin A1c goal of less than 8.0% ([facility]) Use to check sugar daily E11.9 [...] of less than 8.0% (HCC) Use to test blood sugar once daily- dx E11.9 1 Each 5 01/31/2019 Active Metoprolol Succinate ER 25 MG Oral Tablet Extended Release 24 Hour (toPROL XL)Indications:Under Cutter ede right-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) Take 1 [...] (Glucophage)Indicat ions:DM type 2, not at goal ([facility]) TAKE 1 TABLET BY MOUTH 2 TIMES A DAY WITH MORNING AND EVENING MEALS 180 Tablet 1 09/24/2022 Active LORazepam 0.5 MG Oral Tablet (Ativan)Indications :Anxiety 2 tabs 45 minutes before MRI. Repeat 1 tab 15 minutes before MRI if needed 3 Tablet 0 11/22/2022 Active Losartan Potassium 25 MG Oral Tablet (Cozaar)Indications :HTN, goal below 130/80 Take 1 Tablet by mouth in the morning. 30 Tablet 5 12/16/2022 Active Additional Information Patient not taking.Reported on 01/04/2023 Furosemide 20 MG Oral Tablet (Lasix)Indications: Chronic [...] mRNA, LNP-s, No Pre serve, 2-Dose Series ([employer]) 02/02/2021,06/14/2020,05/24/2020 COVID-19, LNP-s, No Preserve , Ellis-sucrose, [...] type indicated: TelePHONIC Preferred Clinic for Appointment: [place] Patient referred to [facility] clinic for hypertension on behalf of [...] Patient has been successfully enrolled to the [id number] hypertension self- management program.Standard alarm settings for [...] will have his medication therapy managedby the [facility] ([facility]) per established policies, procedures, and protocols. I also certify that this referral may serve as an initiation of service for the management of drug therapy in the above noted patient. [facility] providers will be responsible for scheduling patient visits, obtaining appropriate laboratory studies, and adjusting medication management therapy per patient's need, in addition to those roles spelled out in the clinic policy, procedures, and drug management protocols. I understand that the service provided by the [facility] is voluntary and have informed patient that they can refuse the service at their discretion. I am aware that the [facility] Clinic will provide me with a copy of the patient encounter via my Piggyback[employer]. I authorize the [facility] to carry out these activities on [...] 01/20/20 Hospital Encounter Surgery Hill Ho MD [address] [place] [address] 01/20/20 Surgery Surgery Hill Ho MD [address] [place] [address] TRANSPERINEAL PLACEMENTBIODEGRADABLE MATERIAL, TOI-PROSTATIC 01/27/20 Appointment Radiology 01/27/20 23 Documentation Radiation Oncology Jackson Munoz MD [address] [place] [address] 01/27/20 23 Nurse Only Radiation Oncology Ctr, Nurse Rad/Onc Cancer [address] [place] [address] 02/22/20 23 Office Visit Gastroenterology Kaity Comer DO [address] [place] [address] 04/13/19 24 Office Visit Nephrology Luz Marina De Leon [facility] [address] [facility] [address] 05/09/[address] Davis MD [address] [place] [address] 05/09/[address] Davis MD [address] [place] [address] ESOPHAGOGASTRODUODENOSCOPY (EGD), FLEXIBLE, TRANSORAL, DIAGNOSTIC Scheduled Procedures [...] Additional history exists CKD HGB USE SMARTSET 50009 10/08/202310/07, 08/16/2022, 08/16/2022, Additional history exists CKD PHOS USE SMARTSET 10599 10/08/202309/25, 08/17/2021, 03/06/2020, Additional history exists Lipid [...] this encounter Medical Devices Implanted Type Area Printing Table Worker Device Identifier Shelf Expiration Date Model / Serial / Lot Lens 19.0 [id number] - [id number] - [id number] Implanted:Qty: 1 on 08/09/2016 by Madi Frederick MD at OR [facility] Right: Eye KIMMIE : SURGICAL 2018 [id number] / [id number] / documented as of this encounter Advance Directives Latest Code Status on File Code Status Date Activated Date Inactivated Comments Full Code 08/09/2016 2:37 PM 08/09/2016 7:17 PM This order reflects the patients wishes and were consensually agreed upon. Care Teams Belt Cutter Relationship Specialty Start Date End Date Jerzy Glez MD [address] [place], [place] [phone] PCP - General 12/30/99 documented as of this encounter
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
--- OUTSIDE RECORDS SUMMARY | 2023-02-05 13:17 | External Medical Summary | Summary of Care ---
Author Name Unknown Organization [facility] Address [address] [facility] [place] [address] Phone [phone] Care Team Providers Care Graduate Rn Name Role Phone Jerzy Glez MD Primary Care Provider [phone] Encounter Details Date Type Department Care Team Description 01/05/2023 Orders Only Radiation [facility] [place] [address] [facility] [place] [address] Jackson Munoz MD [address] [facility] [place] [address] Anxiety Allergies No known active allergiesdocumented as of this encounter (statuses as of 01/05/2023) Medications Medication Sig Dispensed Refills Start Date [...] 11 01/31/2019 Active ONETOUCH DELDIANE LANCETS FINE MISCIndications:D M type 2, not at goal [...] if needed 3 Tablet 0 01/05/2023 Active LORazepam 0.5 MG Oral Tablet (Ativan)Indicatio ns:Anxiety 2 tabs 45 minutes before MRI. Repeat 1 tab 15 minutes before MRI if needed 3 Tablet 0 11/22/2022 3 Discontinue d(Refill) documented as of this encounter (statuses as of 01/05/2023) Active Problems Problem Noted Date Cirrhosis of [...] as of this encounter (statuses as of 01/05/2023) Resolved Problems Problem Noted Date Resolved Date [...] as of this encounter (statuses as of 01/05/2023) Immunizations Name Administration Dates Next Due COVID-19 mRNA, LNP-s, No Pre serve, 2-Dose Series (Hoodin) 02/02/2021,06/14/2020,05/24/2020 COVID-19, LNP-s, No Preserve , Ellis-sucrose, Ages 12+ (Hoodin) 10/08/2021 Pneumococcal Conjugate Vacc, 13 Valent (Prevnar) [...] Hospital Encounter Surgery Hill Ho MD [address] [place] [address] 01/20/20 Surgery Surgery Hill Ho MD [address] [place] [address] TRANSPERINEAL PLACEMENTBIODEGRADABLE MATERIAL, TOI-PROSTATIC 01/27/20 Appointment Radiology 01/27/20 Documentation Radiation Oncology Jackson Munoz MD [address] [place] [phone] 01/27/20 Nurse Only Radiation Oncology Ctr, Nurse Rad/Onc Cancer [address] [place] [phone] 02/22/20 Office Visit Gastroenterology Kaity Comer DO [address] [place] [address] 04/13/19 24 Office Visit Nephrology Luz [place] PA-C [address] [facility], [place] [address] 05/09/19 [address] Davis MD [address] [place] [address] 05/09/[address] Davis MD [address] [place] [address] ESOPHAGOGASTRODUODENOSCOPY (EGD), FLEXIBLE, TRANSORAL, DIAGNOSTIC 07/07/19 24 Office Visit Cardiology Sandra Laura CRNP [address] [place] [address] Scheduled Procedures Name Priority Associated Diagnoses Date/Ti [...] 01/30/2019, 08/06/2013, Additional history exists COVID-19 Vaccine (24 season) 2022 10/08/2021, 02/02/2021, 06/14/2020, Additional history exists GFR 07/06/2023 01/04/2023, 09/25, 08/16/2022, Additional history exists HbA1c 07/06/2023 01/04/2023, 01/0 11/2022, 08/17/2021, Additional history exists Albumin/Creatinine Ratio 10/08/2023 023, 08/17/2021, 07/15/2020, Additional history exists CKD HGB USE SMARTSET 84036 10/08/202310/07, 08/16/2022, 08/16/2022, Additional history exists CKD PHOS USE SMARTSET 40929 10/08/202309/25, 08/17/2021, 03/06/2020, Additional history exists B-12 [...] this encounter Medical Devices Implanted Type Area Cigarette Book Maker Device Identifier Shelf Expiration Date Model / Serial / Lot Lens 19.0 [id number] - [id number] - [id number] Implanted:Qty: 1 on 08/09/2016 by Madi [place] MD at OR [facility] Right: Eye KIMMIE : SURGICAL 2018 [id number] / [id number] / documented as of this encounter Visit Diagnoses Diagnosis Anxiety Anxiety state, unspecified Prostate cancer (HCC) Malignant neoplasm of prostate Intestinal metaplasia of stomach documented in this encounter Advance Directives Latest Code Status on File Code Status Date Activated Date Inactivated Comments Full Code 08/09/2016 2:37 PM 08/09/2016 7:17 PM This order reflects the patients wishes and were consensually agreed upon. Care Teams Graduate Rn Relationship Specialty Start Date End Date Jerzy Glez MD [address] [place] [address] PCP - General 12/30/99 documented as of this encounter
--- OUTSIDE RECORDS SUMMARY | 2023-02-05 13:17 | External Medical Summary ---
Author Name Unknown Address Unknown Organization K01:[facility] [place] [address] [place] [address] Laboratory Report Ordering Provider Test Date Status [place] 01/21/2023 14:37:20 Final Exclude Heart Failure: <300 pg/mL
Diagnose Heart Failure:
Age <50 yr: >450 pg/mL
50-75 yr: >900 pg/mL
>75 yr: >1800 pg/mL
GFR is 30-59 mL/min: >1200 pg/mL or Age- adjusted values
GFR <30 mL/min: do not use, not reliable

Prognostic threshold: 1000 pg/mL Observation Date Value Abnormality Reference (Units ) Status BNP, Pro-hormone 01/21/2023 14:37:20 1422 Above high no rmal <300 (pg/mL) Final Performing Location [facility] [place] [address] [place] [address]
--- OUTSIDE RECORDS SUMMARY | 2023-02-05 13:17 | External Medical Summary | Summary of Care ---
Author Name Unknown Organization [facility] Address [address] [facility] [address] Phone [phone] Care Team Providers Care Order Tracer Name Role Phone Jerzy Glez MD Primary Care Provider [phone] Reason for Visit * Reason Comments Follow Up Encounter Details Date Type Department Care Team Description 01/04/2023 Office Visit Cardiology, [facility] [address] [place] [address] Sandra Laura CRNP [address] [place] [address] HTN, goal below 130/80*; Chronic heart failure with preserved ejection fraction (HCC) Allergies No known active allergiesdocumented as [...] E11.9 100 Strip 11 01/31/2019 Active CHIKA RIVASYO MABEL MISCIndications:D M type 2, not at goal ([facility]),Type 2 diabetes mellitus with hemoglobin A1c goal of less than 8.0% ([facility]) Use to test blood sugar [...] (Glucophage)Indic ations:DM type 2, not at goal ([facility]) TAKE 1 TABLET BY MOUTH [...] mRNA, LNP-s, No Pre serve, 2-Dose Series ([employer]) 02/02/2021,06/14/2020,05/24/2020 COVID-19, LNP-s, No Preserve , Ellis-sucrose, Ages 12+ ([employer]) 10/08/2021 Pneumococcal Conjugate Vacc, 13 Valent (Prevnar) [...] Sign Reading Time Taken Comments Blood Pressure 142/78 01/04/2023 2:48 PM EDT Pulse 64 01/04/2023 2:20 PM EDT Temperature - - Respiratory Rate 16 01/04/2023 2:20 PM EDT Oxygen Saturation - - Inhaled Oxygen Concentration - - Weight 91.2 kg (201 lb) 01/04/2023 2:20 PM EDT Height - - Body Mass Index 29.68 07/26/2022 10:03 AM EDT documented in this encounter Progress Notes * TERRELL Iqbal - 01/04/2023 2:30 PM EDT 01/04/2023 Cardiology Follow Up Primary Workday Senior Associate: Dr. Sumner Cardiac Problems: 1. Hypertensive heart disease 2. Chronic heart failure with preserved ejection fraction 3. CKD stage 3 4. Hepatic cirrhosis HPI: Delvis Munoz is a 72 year old male presents for routine cardiology follow up. Last seen in our office by Mary Jane Hawkins PA-C for routine follow up. Patient was feeling ok at the time of that appointment aside from some intermittent dizziness lasting approx 5 minutes with stablevital signs. He was having more frequent episodes and had stopped his Losartan which did provide some improvement. Echocardiogram showed no new or acute changes. It was decided to continue to hold the losartan due to hyperkalemia and dizzy spells. Discussed pursuing a ZIO monitor to assess for symptomatic bradycardia; however, he opted to hold off at that time. Patient presents today with spouse. He is doing ok. He was recently diagnosed with prostate cancer. He is following with Dr. Rosenberg and will be seeing Dr. Jackson Munoz in the [facility] for treatment. BP elevated on first reading. Repeat improved. He is also following with nephrology who is setting him up with the home BP monitoring system. Patient reports fatigue, he presumes is associated with his prostate cancer. He denies any change or decline in functional capacity. He denies any swelling of the feet/legs and denies any new or worsening shortness of breath. Patient remains compliant on all medication therapies with no untoward effects. Recent labs October 2022 were stable, labs pending for today. REVIEW OF SYSTEMS: See HPI for pertinent positives. All others negative other than those noted in the HPI. CONSTITUTIONAL: No change in weight, No weakness, No fatigue and No fevers, No sweats or chills. PULMONARY: No cough, sputum, or hemoptysis, No wheezing, No shortness or breath and No recent change in breathing. CARDIOVASCULAR: No chest pain, No dyspnea on exertion, No edema, No palpitations and No syncope. GASTROINTESTINAL: No abdominal pain, No change in bowel habits, No significant heartburn, No nausea, No vomiting, No diarrhea, No constipation, No blood in stools or black tarry stools. No dysphagia. HEMATOLOGIC: No abnormal bleeding and No bruising. NEUROLOGICAL: Normal balance, No headaches and No weakness. Review of patient's allergies indicates: No Known Allergies Current Outpatient Medications Medication Sig Dispense Refill Metoprolol Succinate ER 25 MG Oral Tablet Extended Release 24 Hour (toPROL XL) Take 1 Tablet by mouth in the morning. 90 Tablet 3 traZODone HCl 100 MG Oral Tablet (Desyrel) Take 1 Tablet by mouth at bedtime. 90 Tablet 3 metFORMIN HCl 500 MG Oral Tablet (Glucophage) TAKE 1 TABLET BY MOUTH 2 TIMES A DAY WITH MORNING ANDEVENING MEALS 180 Tablet 1 oxyCODONE HCl 10 MG Oral Tablet (Roxicodone) Take 1 Tablet by mouth in the morning and 1 Tablet at noon and 1 Tablet in the evening and 1 Tablet before bedtime. 120 Tablet 0 amLODIPine Besylate 2.5 MG Oral Tablet (Norvasc) Take 1 Tablet by mouth in the morning. 30 Tablet 5 Blood Glucose Monitoring Suppl (CallmyName) w/Device KIT Use to check sugar daily E11.9 1 Kit 0 Glucose Blood (ViS VERAnyvite) STRP Use up check sugar daily E11.9 100 Strip 11 ONETOUCH DELICA LANCETS FINE MISC Use to test blood sugar once daily- dx E11.9 1 Each 5 Ciprofloxacin HCl 500 MG Oral Tablet (Cipro) Take 1 Tablet by mouth in the morning and 1 Tablet before bedtime. Start the day before the biopsy. (Patient not taking: Reported on 12/17/2022) 6 Tablet 0 LORazepam 0.5 MG Oral Tablet (Ativan) 2 tabs 45 minutes before MRI. Repeat 1 tab 15 minutes before MRI if needed 3 Tablet 0 Furosemide 20 MG Oral Tablet (Lasix) TAKE HALF A TABLET BY MOUTH ONCE A DAY ON TUESDAY, TUESDAY, AND TUESDAY ONLY. (Patient taking differently: Take WHOLE TABLET BY MOUTH ONCE A DAY ON TUESDAY, TUESDAY, AND TUESDAY ONLY.) 15 Tablet 3 Magnesium 125 MG Oral Capsule Take by mouth. Vitamin D3 25 MCG (1000 UT) Oral Capsule Take by mouth. No current facility-administered medications for this visit. Past Medical History: Diagnosis Date Back pain, thoracic pain management with [facility] group BENIGN HYPERTENSION 03/30/2005 Closed fracture of seven ribs 08/12/2010 MEDICATION USE AGREEMENT 12/27/2011 OTHER 10/2010 pulmonary nodule/ Follow CT for 2 years/ repeat 03/10 Other chronic sinusitis Prostate cancer (HCC) Tubular adenoma of colon 03/19/2013 Family History Problem Relation Age of Onset Diabetes Mother Stroke Mother Prostate cancer Brother Diabetes Uncle (Unspecified) Cancer None Heart Disorder None Thyroid Disorder None Eye Problems None Patient denies HX AMD, glaucoma, retinal detachment or blindness Social History Socioeconomic History Marital status: Number of children: 3 Occupational History Employer: [email or web address] Comment: [employer] 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 A+Ox3. HEENT: Normocephalic. Atraumatic. PERRL. EOMI. Conjunctiva and sclera clear. NECK: No carotid bruits. No JVD. Carotid upstrokes are brisk. Heart: RRR. S1 and S2 noted. No murmur. No rubs or gallops. PMI non displaced. Lungs: Clear to auscultation. No wheezes.No rhonchi. No rales. Abdomen: Normal bowel sounds. Soft. Nontender. No masses or organomegaly. No abdominal bruits. Extremities: No edema. No clubbing or cyanosis. Pulses: radial=2/4, posterior tibial=2/4, dorsalis pedis = 2/4. NEURO: No focal deficits. PSYCH: Appropriate affect and insight. DATA Labs & Imaging Reviewed Below: Echo report reviewed dated April 02, 2022 Interpretation Summary The examination is adequate to evaluate the referral indication. The qualitative LV ejection fraction is 55-59% (normal). The LV wall thickness is mildly increased (concentric). The left ventricular wall motion is normal. Mild mitral regurgitation is present. The left atrium is mildly enlarged (35-41 ml/m^2). The left ventricular diastolic function is mildly abnormal (grade I). Mild tricuspid regurgitation is present. Normal IVC size and collapsability with sniff indicates a normal right atrial pressure of 3 mmHg. The estimated pulmonary artery systolic pressure is 36 mm Hg. Echocardiogram January 02, 2022 [facility] Left ventricle is normal in size with mild left hypertrophy EF 50 to 55% Grade 2 diastolic dysfunction with mild left atrial enlargement Mild mitral and mild tricuspid insufficiency TR velocity 3.2 m/sec reflecting mild elevation in pulmonary pressures Chest CT January 01, 2022 Moderate cardiac enlargement with moderate coronary artery calcifications Chronic pleural thickening Nonspecific mediastinal and hilar lymphadenopathy ASSESSMENT/PLAN: 72 year old year old male 1. HTN, goal below 130/80 -At target upon recheck. Agree with BP home monitoring system as ordered by nephrology. Discussed notifying office if systolic BP remains persistently above 140mmHg. If so, would recommend increasingAmlodipine to 5mg QD. Currently patient is to take Amlodipine 2.5mg QD. - EKG COMPLETE (TRACING AND INTERP) 2. Chronic heart failure with preserved ejection fraction (HCC) -Euvolemic on physical exam. -continue on Toprol xl, amlodipine, and furosemide as per current regimen. -Plan for repeat echocardiogram fall 2023 for assessment of overall structure and function. DISPOSITION: Follow up 6months or if symptoms worsen/fail to improve. All questions were answered to the patients satisfaction. Patient advised to report to ED with any and all emergencies. The patient agrees to the above plan and will call with additional questions or concerns. TERRELL Duuqe Cardiology, [address] [address] I spent a total of 30 minutes on the date of service in preparation, delivery, and documentation ofthe care provided to Delvis Munoz excluding any time spent in the performance of separately billed services. This chart was completed in part utilizing [employer] Speech Voice Recognition Software. Grammatical errors, random word insertions, pronoun errors, and incomplete sentences are an occasional consequence of this system due to software limitations, ambient noise, and hardware issues. Any formal questions or concerns about the content, text, or information contained within the body of this dictation should be directly addressed to the provider for clarification. documented in this encounter Nursing Notes * Alireza Sood RN - 01/04/2023 2:15 PM EDT Examination Room: room 7 Name: Delvis Munoz Date of : (1950). Reason for Visit: for follow up Interim Hospitalization(s): denies Problems/Concerns: denies Chest Pain/SOB:occ [facility] Discussed: Not applicable [facility] is a way you can talk to your provider online through e-mail. Would you like to sign up? I can activate it for you? ALREADY ACTIVE Patient was instructed to not get up on the exam table until directed and assisted by their provider; patient is to remain seated in the chair/ wheelchair/ exam table for fall prevention and safety reasons. Patient is aware to have assistance to step down off exam table with personnel. Patient voiced full comprehension of instructions. documented in this encounter Plan of Treatment Upcoming Encounters Date Type Specialty Care Team Description 01/20/20 Hospital Encounter Surgery Hill Ho MD [address] [place] [address] 01/20/20 Surgery Surgery Hill Ho MD [address] [place] [address] TRANSPERINEAL PLACEMENTBIODEGRADABLE MATERIAL, TOI-PROSTATIC 01/27/20 Appointment Radiology 01/27/20 Documentation Radiation Oncology Jackson Munoz MD [address] [place] [address] 01/27/20 Nurse Only Radiation Oncology Ctr, Nurse Rad[facility]c [facility] [address] [facility] [address] 02/22/20 23 Office Visit Gastroenterology Kaity Comer DO [address] [place] [address] 04/13/19 24 Office Visit Nephrology Luz Marina De Leon [facility] [address] [facility] [address] 05/09/19 [address] Davis MD [address] [place] [address] 05/09/[address] Davis MD [address] [place] [address] ESOPHAGOGASTRODUODENOSCOPY (EGD), FLEXIBLE, TRANSORAL, DIAGNOSTIC 07/07/19 24 Office Visit Cardiology Sandra Laura CRNP [address] [place] [address] Scheduled Orders Name Type Priority Associated Diagnoses Orde r Schedule EKG COMPLETE (TRACING AND INTERP) EKG Routine HTN, goal below 130/80 Ordered: 01/04/2023 Scheduled Procedures Name Priority Associated Diagnoses Date/Ti [...] Additional history exists CKD HGB USE SMARTSET 50827 10/08/202310/07, 08/16/2022, 08/16/2022, Additional history exists CKD PHOS USE SMARTSET 40862 10/08/202309/25, 08/17/2021, 03/06/2020, Additional history exists Lipid [...] this encounter Medical Devices Implanted Type Area Compactor Driver Device Identifier Shelf Expiration Date Model / Serial / Lot Lens 19.0 [id number] - [id number] - [id number] Implanted:Qty: 1 on 08/09/2016 by Madi Frederick MD at OR [facility] Right: Eye KIMMIE : SURGICAL 2018 [id number] / [id number] / documented as of this encounter Visit Diagnoses Diagnosis HTN, goal below 130/80- Primary Unspecified essential hypertension Chronic heart failure with preserved ejection fraction (HCC) Prostate cancer (HCC) Malignant neoplasm of prostate Intestinal metaplasia of stomach documented in this encounter Advance Directives Latest Code Status on File Code Status Date Activated Date Inactivated Comments Full Code 08/09/2016 2:37 PM 08/09/2016 7:17 PM This order reflects the patients wishes and were consensually agreed upon. Care Teams Order Tracer Relationship Specialty Start Date End Date Jerzy Glez MD [facility] [place] [address] PCP - General 12/30/99 documented as of this encounter"
--- OUTSIDE RECORDS SUMMARY | 2023-02-05 13:17 | External Medical Summary | Summary of Care ---
Author Name Unknown Organization [facility] Address [address] [facility] [address] Phone [phone] Care Team Providers Care Forest Fire Officer Name Role Phone Jerzy Glez MD Primary Care Provider [phone] Encounter Details Date Type Department Care Team (Late st Contact Info) Description 01/26/2023 9:00 AM EDT Documentation Radiation Oncology [facility] [place] [address] [facility] [place] [address] Jackson Munoz MD [address] [facility] [place] [address] Allergies No known active allergiesdocumented as of [...] FINE MISCIndications:DM type 2, not at goal ([facility]),Type 2 diabetes mellitus with hemoglobin A1c goal of less than 8.0% ([facility]) Use to test blood sugar once [...] mRNA, LNP-s, No Pre serve, 2-Dose Series ([employer]) 02/02/2021,06/14/2020,05/24/2020 COVID-19, LNP-s, No Preserve , Ellis-sucrose, [...] as of this encounter Miscellaneous Notes * Radiation Planning Note - Jackson Munoz MD - 01/26/2023 4:38 PM EDT RADIATION ONCOLOGY SIMULATION & START OF TREATMENT NOTE [facility] Delvis Munoz [id number] 72 year old Delvis Munoz underwent simulation in Radiation Oncology at [facility] on 01/26/2023. Date and Time of Procedure: 01/26/2023 at 9:00 AM REFERRING PHYSICIAN: Dr. Jackson Rosenberg/Dr. Gera Munoz DISEASE STATUS: Initial diagnosis SITE OF MALIGNANCY: Prostate HISTOPATHOLOGY: Prostate adenocarcinoma, [place] score 3+3=6 STAGE: I [id number] CURRENT THERAPY: Pending radiotherapy PRIOR THERAPY: None DIAGNOSTIC HISTORY: Delvis Munoz is a 73 year old male with intermediate risk prostate cancer, PSA 5.88ng/mL, [place] score 3+3=6 in 6/6 cores. MRI showing 15cc prostate with 1.5cm area in apex with suspicion for HERIBERTO. Negative SVI or pelvic LAD. The patient is a 72 year old male who was simulated for definitive radiation therapy to the prostate. The potential benefits and risks of radiation therapy were reviewed with the patient and family in detail. The alternative treatment options and expected outcomes were also discussed with the patientand family in detail. Written informed consent was obtained. The relevant diagnostic images were reviewed prior to simulation. The radiation planning CT scan will be fused to other diagnostic radiology studies (such as MRI or PET) if these will aid target and/or normal tissue delineation. Description of the procedure: The patient was brought to the simulator room and placed in the treatment position. The patient wasimmobilized per department protocol. Reference point was placed and verified. The radiation planning CT scan was then obtained. Measurements were taken and chand were placed. Radiation treatment position: supine Radiation immobilization devices: per usual Other radiation planning issues: bladder full and rectum empty Radiation planning CT parameters: shallow free breathing CT scan Radiation planning CT contrast: no CT scan IV contrast no CT scan oral contrast Patient breathing: shallow free breathing Radiation gating: none Radiation treatment planning: hypofractionated stereotactic radiation therapy (SRT) IMRT justification (if applicable): concave or convex gross tumor margin , immediately adjacent area has been previously radiated, and IMRT would significantly decrease the probability of grade 2 or grade 3 radiation toxicity when compared to conventional radiation therapy IMRT avoidance structures (if applicable): bowel, rectum, bladder, and penile bulb Radiation dose (estimated): 36.25Gy in 5 fractions Positioning verification and target localization: orthogonal images and/or portal images Concurrent chemotherapy: no The CT images were transferred to the radiation treatment planning system. The target volumes and critical adjacent normal tissues were contoured. The images and contours were discussed with and submitted to dosimetry and/or physics for treatment planning and dose calculation. The patient has been scheduled to return for treatment initiation in the near future, once a treatment plan has been designed. The patient will be seen on a regular basis once treatment begins. Jackson Munoz MD 01/26/2023 documented in this encounter Plan of Treatment Upcoming Encounters Date Type Department Care Team (Latest Contact Info) Description 3 10:00 AM EST Documentation Radiation Oncology [facility] [place] [address] [place] [address] Jackson Munoz MD [address] [place] [address] 3 10:00 AM EST Documentation Radiation Oncology [facility] [place] [address] [place] [address] Jackson Munoz MD [address] [place] [address] 3 11:20 AM EST Office Visit Hepatology, [facility] [address] [place] [address] Kaity Comer DO [address] [place] [address] 4 9:45 AM EST Cardiac Studies Cardiac Studies, Mobile [address] [place] [facility] [address] 4 10:30 AM EST Office Visit Nephrology, [facility] [address] [place], [place] [address] ZemaitisLuz Marina PA-C [address] [place] [address] 4 11:15 AM EST Hospital Encounter ENDO [facility], Endoscopy Room [facility] [address] [place] [phone] Lane Davis MD [address] [place] [address] 4 11:15 AM EST - 4 11:45 AM EST Surgery ENDO [facility], Endoscopy Room [facility] [address] [place], [place] [phone] Lane Davis MD [address] [place], [place] [address] ESOPHAGOGASTRODUODENOSCOPY (EGD), FLEXIBLE, TRANSORAL, DIAGNOSTIC 4 10:00 AM EST Office Visit [facility] [address] [facility] [phone] Deb Camara MD [address] [place] [facility] [place] [address] 4 9:30 AM EDT Office Visit Cardiology, [facility] [address] [place] [address] Sandra Laura CRNP [address] [place] [address] Scheduled Procedures Name Priority Associated Diagnoses Date/Ti [...] Additional history exists CKD HGB USE SMARTSET 82500 10/08/202310/07, 08/16/2022, 08/16/2022, Additional history exists CKD PHOS USE SMARTSET 03684 10/08/202309/25, 08/17/2021, 03/06/2020, Additional history exists B-12 [...] this encounter Medical Devices Implanted Type Area Lead Business Systems Analyst Device Identifier Shelf Expiration Date Model / Serial / Lot Lens 19.0 [id number] - [id number] - [id number] Implanted:Qty: 1 on 08/09/2016 by Madi Frederick MD at OR [facility] Right: Eye KIMMIE : SURGICAL 2018 [id number] / [id number] / documented as of this encounter Advance Directives Latest Code Status on File Code Status Date Activated Date Inactivated Comments Full Code 08/09/2016 2:37 PM 08/09/2016 7:17 PM This order reflects the patients wishes and were consensually agreed upon. Care Teams Forest Fire Officer Relationship Specialty Start Date End Date Jerzy Glez MD [address] [place] [address] PCP - General 12/30/99 documented as of this encounter
--- OUTSIDE RECORDS SUMMARY | 2023-02-05 13:17 | External Medical Summary ---
Author Name Unknown Address Unknown Organization K01:[facility] [place] [address] [place] [address] Laboratory Report Ordering Provider Test Date Status CHARLOTTE WHITT 01/21/2023 14:37:20 Final Observation Date Value Abnormality Reference (Units ) Status BUN 01/21/2023 14:37:20 22 Above high normal 6-20 (mg/dL) Final Creatinine 01/21/2023 14:37:20 1.5 Above high normal 0.6-1.2 (mg/dL) Final Glomerular filtration rate/1.73 sq M.predicted [Volume Rate/Area] in Serum, Plasma or Blood by Creatinine-based formula (CKD-EPI) 01/21/2023 14:37:20 51 Below low normal >=60 (mL/min) Final eGFR is calculated based on the CKD-EPI 2020 equation SODIUM 01/21/2023 14:37:20 140 135-146 (m mol/L) Final Potassium 01/21/2023 14:37:20 5.0 3.5-5.1 (m mol/L) Final Cl 01/21/2023 14:37:20 103 98-107 (mm ol/L) Final CO2 01/21/2023 14:37:20 27 22-32 (mmo l/L) Final Anion gap 01/21/2023 14:37:20 10 7-15 (mmol /L) Final Glucose 01/21/2023 14:37:20 162 Above high normal 70 -120 (mg/dL) Final Albumin 01/21/2023 14:37:20 3.3 Below low normal 3.8 -5.0 (g/dL) Final AST (Aspartate aminotransferase) 01/21/2023 14:37:20 62 Above high normal 10-50 (U/L) Final Alk Phos 01/21/2023 14:37:20 194 Above high normal 35 -130 (U/L) Final Bilirubin, Total 01/21/2023 14:37:20 0.9 <=1 .2 (mg/dL) Final Calcium 01/21/2023 14:37:20 8.6 8.4-10.2 ( mg/dL) Final Protein 01/21/2023 14:37:20 7.4 6.0-8.3 (g /dL) Final ALT (Alanine aminotransferase) 01/21/2023 14:37:20 37 10-50 (U/L) Bladimir wilson Performing Location [facility] [place] - [address] [facility] [address]
--- OUTSIDE RECORDS SUMMARY | 2023-02-05 13:17 | External Medical Summary | Summary of Care ---
Author Name Unknown Organization [facility] Address [address] [place] [address] Phone [phone] Care Team Providers Care Silk Screen Layout Drafter Name Role Phone Jerzy Glez MD Primary Care Provider [phone] Reason for Referral * Evaluate & Treat - Unlimited Visits (Within 10 days (routine)) - Authorized Specialty Diagnoses / Procedures Referred By Contac t Referred To Contact Radiation Oncology Diagnoses Prostate cancer (HCC) Gera Munoz MD [address] [place] [address] Referral ID Status Reason Start Date Expiration Date Visits Requested Visits Authorized [id number] Authorized Specialty Services Required 12/13/2022 999 999 Question Answer Referral Priority Within 10 days (routine) What is the preferred location to have this test performed? [facility] [place] Comments Patient would like to discuss cyber knife Reason for Visit * Reason Onset Date Comments Test Results 12/13/2022 Encounter Details Date Type Department Care Team (Late st Contact Info) Description 12/13/2022 Telephone Radiation Oncology, [facility] [address] [place] [address] Gera Munoz MD [address] [place] [address] Test Results Allergies No known active allergiesdocumented as of this encounter (statuses as of 01/19/2023) Medications Medication Sig Dispensed Refills Start Date End Date Status Blood Glucose Monitoring Suppl (Iunika) w/Device KITIndications:D M type 2, not at goal (HCC),Type 2 diabetes mellitus with hemoglobin A1c goal of less than 8.0% ([facility]) Use to check sugar daily E11.9 1 Kit 0 9 Suspended Additional Information Glucose Blood (Iunika) STRPIndications: DM type 2, not at goal ([facility]),Type 2 diabetes mellitus with hemoglobin A1c goal of less than 8.0% ([facility]) Use up check sugar daily E11.9 100 Strip 11 9 Suspended Additional Information LookbackTOUCH DELICA LANCETS FINE MISCIndications: DM type 2, not at goal ([facility]),Type 2 diabetes mellitus with hemoglobin A1c goal of less than 8.0% ([facility]) Use to test blood sugar once daily- dx E11.9 1 Each 5 9 Suspended Additional Information Metoprolol Succinate ER 25 MG Oral Tablet Extended Release 24 Hour (toPROL XL)Indications:C hronic right-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) Take 1 Tablet by mouth in the morning. 90 Tablet 3 3 01/19/20 23 Discontinued(Ref ill) traZODone HCl 100 MG Oral Tablet (Desyrel)Indicat ions:Persistent insomnia Take 1 Tablet by mouth at bedtime. 90 Tablet 3 3 Suspended Additional Information Furosemide 20 MG Oral Tablet (Lasix)Indicatio ns:Chronic right-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) TAKE HALF A TABLET BY MOUTH ONCE A DAY ON TUESDAY, TUESDAY, AND TUESDAY ONLY. 14 Tablet 5 3 12/22/19 23 Discontinued(Ref ill) Ciprofloxacin HCl 500 MG Oral Tablet (Cipro) Take 1 Tablet by mouth in the morning and 1 Tablet before bedtime. Start the day before the biopsy. 6 Tablet 0 3 01/20/20 23 Discontinued metFORMIN HCl 500 MG Oral Tablet (Glucophage)Gayathri cations:DM type 2, not at goal (HCC) TAKE 1 TABLET BY MOUTH 2 TIMES A DAY WITH MORNING AND EVENING MEALS 180 Tablet 1 3 Suspended Additional Information Losartan Potassium 25 MG Oral Tablet (Cozaar)Indicati ons:HTN, goal below 130/80 Take 1 Tablet by mouth in the morning. 30 Tablet 5 3 12/17/19 23 Discontinued(Ref ill) LORazepam 0.5 MG Oral Tablet (Ativan)Indicati ons:Anxiety 2 tabs 45 minutes before MRI. Repeat 1 tab 15 minutes before MRI if needed 3 Tablet 0 3 01/06/20 23 Discontinued(Ref ill) oxyCODONE HCl 10 MG Oral Tablet (Roxicodone)Gayathri cations:Other closed fracture of thoracic vertebra, unspecified thoracic vertebral level, sequela Take 1 Tablet by mouth in the morning and 1 Tablet at noon and 1 Tablet in the evening and 1 Tablet before bedtime. 120 Tablet 0 3 12/28/19 23 Discontinued(Ref ill) documented as of this [...] mRNA, LNP-s, No Pre serve, 2-Dose Series (iSentium) 02/02/2021,06/14/2020,05/24/2020 COVID-19, LNP-s, No Preserve , Ellis-sucrose, Ages 12+ (Pfizer) 10/08/2021 Pneumococcal Conjugate Vacc, 13 Valent (Prevnar) 03/19/2015 Pneumococcal Polysaccharide PPV23 (Pneumovax) 08/09/2013 SEASONAL INFLUENZA, PF, 6 M & Above, IM , (FLULAVAL or FLUZONE) 12/08/2019 Seasonal Influenza, Quadriva lent Hd (Fluzone Hd) 12/19/2020 Seasonal Influenza, Quadriva lent, No Preserve, IM [...] encounter Miscellaneous Notes * Telephone Encounter - Guera Dowling CMA - 12/17/2022 8:13 AM EDT Patient's , [facility], returned call. Informed her of results and advised her to contact out office should anything further be needed. We will also monitor chart for appointment with Dr. Jackson Munoz today. * Telephone Encounter - Guera Dowling CMA - 12/17/2022 8:11 AM EDT Bone scan results are as follows: No suspicious osseous uptake. Reviewed results with Dr. Munoz. Left generic message asking patient to return our call to inform himof results. * Telephone Encounter - Guera Dowling CMA - 12/13/2022 9:[address] Munoz reviewed results of patient's MRI and asked for referral to be placed for rad/onc in [place] as on consult, patient requested to discuss cyber knife. Patient informed that MRI is back and we will be placing referral to rad/onc in [place]. Referral placed, please assist in scheduling. documented in this encounter Plan of Treatment Upcoming Encounters Date Type Department Care Team (Latest Contact Info) Description 3 2:00 PM EDT Office Visit [facility] [address] [place] [phone] Deb Camara MD [address], [place] [phone] 3 8:00 AM EDT Appointment Radiology Estefania LEVY [address] [place] [address] 3 9:00 AM EDT Documentation Radiation Oncology [facility] Tevin [address] [place] [address] Jackson Munoz MD [address] [place] [address] 3 10:05 AM EDT Nurse Only [facility] [address] [place] [address] Ctr, Nurse Rad/Onc Cancer [address] [place] [address] 3 11:20 AM EST Office Visit Hepatology, [facility] [address] [place] [address] Kaity Comer DO [address] [place] [address] 4 10:30 AM EST Office Visit Nephrology, [facility] [address] [place] [address] ZemaLuz Marina gnetile PA-C [address] [place] [address] 4 11:15 AM EST Hospital Encounter ENDO [facility], Endoscopy Room [facility] [address] [place] [phone] [address] Davis MD [address] [place] [address] 4 11:15 AM EST - 4 11:45 AM EST Surgery ENDO [facility], Endoscopy Room [facility] [address] [place] [phone] Lane Davis MD [address] [place] [address] ESOPHAGOGASTRODUODENOSCOPY (EGD), FLEXIBLE, TRANSORAL, DIAGNOSTIC 4 9:30 AM EDT Office Visit Cardiology, [facility] [address] [place] [address] Sandra Laura CRNP [address] [place] [address] Scheduled Procedures Name Priority Associated Diagnoses Date/Ti me TRANSPERINEAL PLACEMENTBIODE GRADABLE MATERIAL, TOI-PROSTATIC Prostate cancer (HCC) 01/19/2023 7:44 AM EDT PLACEMENT INTERSTITIAL DEVIC E FOR RADIATION THERAPY GUIDANCE PROSTATE VIA NEEDLE ANY APPROACH Prostate cancer (HCC) 01/19/2023 7:44 AM EDT ESOPHAGOGASTRODUODENOSCOPY ( EGD), FLEXIBLE, TRANSORAL, DIAGNOSTIC Recall Intestinal metaplasia of stomach 05/09/2023 11:15 AM EST COLONOSCOPY FLEXIBLE PROXIMA L DIAGNOSTIC Recall History of colon polyps Scheduled Referrals Name Type Priority Associated Diagnoses Orde r Schedule RADIATION/ONCOLOGY REFERRAL OP Referral Within 10 days (routine) Prostate cancer (HCC) Ordered: 12/13/2022 Health Maintenance Due Date Last Done Comments [...] 06/14/2020, Additional history exists GFR 07/06/2023 01/04/2023, 0705/2022, 08/16/2022, Additional history exists HbA1c 07/06/2023 01/04/2023, 01/0 11/2022, 08/17/2021, Additional history exists Albumin/Creatinine Ratio 10/08/2023 023, 08/17/2021, 07/15/2020, Additional history exists CKD HGB USE SMARTSET 56010 10/08/202310/07, 08/16/2022, 08/16/2022, Additional history exists CKD PHOS USE SMARTSET 21866 10/08/2023 07/1 05/2022, 08/17/2021, 03/06/2020, Additional history exists B-12 01/05/2024 [...] this encounter Medical Devices Implanted Type Area Scrum Product Owner Device Identifier Shelf Expiration Date Model / Serial / Lot Lens 19.0 [id number] - [id number] - [id number] Implanted:Qty: 1 on 08/09/2016 by Madi Frederick MD at [facility] Right: Eye KIMMIE : SURGICAL 2018 [id number] / [id number] / documented as of this encounter Visit Diagnoses Diagnosis Prostate cancer (HCC)- Primary Malignant neoplasm of prostate Intestinal metaplasia of stomach documented in this encounter Advance Directives Latest Code Status on File Code Status Date Activated Date Inactivated Comments Full Code 08/09/2016 2:37 PM 08/09/2016 7:17 PM This order reflects the patients wishes and were consensually agreed upon. Care Teams Silk Screen Layout Drafter Relationship Specialty Start Date End Date Jerzy Glez MD [address] [place] [address] PCP - General 12/30/99 documented as of this encounter
--- OUTSIDE RECORDS SUMMARY | 2023-02-05 13:17 | External Medical Summary | Summary of Care ---
Author Name Unknown Organization [facility] Address [address] [place] [address] Phone [phone] Care Team Providers Care Crop And Soil Technician Name Role Phone Jerzy Glez MD Primary Care Provider [phone] Reason for Referral * Precert (Within 10 days (routine)) - Authorized Specialty Diagnoses / Procedures Referred By Swapnil caldwell Referred To Contact Radiology Diagnoses Prostate cancer (HCC) Procedures MRI PELVIS W/O CONTRAST - RAD ONC PLANNING Jackson [facility]oz [facility] [address] [facility] [place] [address] Referral ID Status Reason Start Date Expiration Date V isits Requested Visits Authorized [id number] Authorized 01/16/2023 999 999 Reason for Visit * Precert (Within 10 days (routine)) - Authorized Specialty Diagnoses / Procedures Referred By Swapnil caldwell Referred To Contact Radiology Diagnoses Prostate cancer (HCC) Procedures MRI PELVIS W/O CONTRAST - RAD ONC PLANNING Jackson Munoz MD [address] [facility] [place] [address] Referral ID Status Reason Start Date Expiration Date V isits Requested Visits Authorized [id number] Authorized 01/16/2023 999 999 Encounter Details Date Type Department Care Team (Latest Contact Info) Description 01/26/2023 7:30 AM EDT - 01/26/2023 11:59 PM EDT Hospital Encounter Radiology Paula LEVYes Aviva [address] [facility] [place] [address] Arrived Discharge Disposition: Home - Self Care Allergies No known active allergiesdocumented as of this encounter (statuses as of 01/27/2023) Medications Medication Sig Dispensed Refills Start Date End Date Status Blood Glucose Monitoring Suppl (Abroad101TORebel Monkey VERIO) w/Device KITIndications:DM type 2, not at goal ([facility]),Type 2 diabetes mellitus with hemoglobin A1c goal of less than 8.0% ([facility]) Use to check sugar daily E11.9 1 Kit 0 01/31/2019 Active Glucose Blood (Abroad101TOUCH VERIO) STRPIndications:DM type 2, not at goal ([facility]),Type 2 diabetes mellitus with hemoglobin A1c goal of less than 8.0% ([facility]) Use up check sugar daily E11.9 100 Strip 11 01/31/2019 Active ONETOUCH ELIZABETH ROGERS FINE MISCIndications:DM type 2, not at goal ([facility]),Type 2 diabetes mellitus with hemoglobin A1c goal of less than 8.0% ([facility]) Use to test blood sugar once [...] as of this encounter (statuses as of 01/27/2023) Active Problems Problem Noted Date Diagnosed Date [...] as of this encounter (statuses as of 01/27/2023) Resolved Problems Problem Noted Date Diagnosed Date [...] as of this encounter (statuses as of 01/27/2023) Immunizations Name Administration Dates Next Due COVID-19 mRNA, LNP-s, No Pre serve, 2-Dose Series ([employer]) 02/02/2021,06/14/2020,05/24/2020 COVID-19, LNP-s, No Preserve , Ellis-sucrose, Ages 12+ ([employer]) 10/08/2021 Pneumococcal Conjugate Vacc, 13 Valent (Prevnar) [...] Center [facility] [address] [place] [address] Jackson Munoz MD [address] [place] [address] 3 10:00 AM EST Documentation Radiation Oncology Cancer [facility] [address] [place] [address] Jackson Munoz MD [address] [facility] [place] [address] 3 11:20 AM EST Office Visit Hepatology, [facility] [address] [place] [address] Kaity Comer DO [address] [place], [place] [address] 4 9:45 AM EST Cardiac Studies Cardiac Studies, [place] [address] [place] [address] 4 10:30 AM EST Office Visit Nephrology, [facility] [address] [place] [address] ZeLuz Marina mills PA-C [address] [place] [address] 4 11:15 AM EST Hospital Encounter ENDO [facility], Endoscopy Room [facility] [address] [place] [phone] Lane Davis MD [address] [place] [address] 4 11:15 AM EST - 4 11:45 AM EST Surgery ENDO [facility], Endoscopy Room [facility] [address] [place], [place] [phone] Lane Davis MD [address] [place] [address] ESOPHAGOGASTRODUODENOSCOPY (EGD), FLEXIBLE, TRANSORAL, DIAGNOSTIC 4 10:00 AM EST Office Visit [facility] [address] [place] [facility] [phone] Deb Camara MD [address] [facility] [place] [address] 9:30 AM EDT Office Visit Cardiology, [facility] [address] [place] [address] Sandra Laura CRNP [address] [place] [address] Scheduled Procedures Name Priority Associated Diagnoses Date/Ti [...] Additional history exists CKD HGB USE SMARTSET 28196 10/08/202310/07, 08/16/2022, 08/16/2022, Additional history exists CKD PHOS USE SMARTSET 21037 10/08/202309/25, 08/17/2021, 03/06/2020, Additional history exists B-12 [...] this encounter Medical Devices Implanted Type Area Receptionist Airline Lounge Device Identifier Shelf Expiration Date Model / Serial / Lot Lens 19.0 [id number] - [id number] - [id number] Implanted:Qty: 1 on 08/09/2016 by Madi Frederick MD at OR [facility] Right: Eye KIMMIE : SURGICAL 2018 [id number] / [id number] / documented as of this encounter Procedures Procedure Name Priority Date/Time Associated Diagnosis Comments MRI PELVIS W/O CONTRAST - RAD ONC PLANNING Routine 01/26/2023 8:55 AM EDT Prostate cancer (HCC) documented in this encounter Results * MRI PELVIS W/O CONTRAST - RAD ONC PLANNING (01/26/2023 8:55 AM EDT) Anatomical Region Laterality Modality Pelvis Magnetic Resonan ce 01/26/2023 11:1 7 AM EDT Impressions 01/26/2023 11:15 AM EDT IMPRESSION MRI for radiation treatment planning purposes. Please see above. Narrative 01/26/2023 11:15 AM EDT EXAM MRI PELVIS W/O CONTRAST - RAD ONC PLANNING-01/26/2023 8:55 am HISTORY Planning for prostate radiation on Cyberknife COMPARISON 12/08/2022 TECHNIQUE Multiplanar MRI of the prostate for radiation treatment planning FINDINGS Space OAR is increased T2 signal and located between the prostate and anterior aspect of the rectum located in the midline and to the right of midline. This does not extend to the left. PROSTATE: Current exam is for treatment planning purposes. Please see prior diagnostic prostate MRI. SEMINAL VESICLES: Within normal limits. ADJACENT ORGANS: Rectum is displaced by the spaceOAR from the posterior aspect of the prostate. LYMPH NODES: No lymphadenopathy is appreciated. BONES/SOFT TISSUE: No bony lesion is appreciated. There is a small left fatty inguinal hernia. Procedure Note Jocelyn Islas MD - 01/26/2023 EXAM MRI PELVIS W/O CONTRAST - RAD ONC PLANNING-01/26/2023 8:55 am HISTORY Planning for prostate radiation on Cyberknife COMPARISON 12/08/2022 TECHNIQUE Multiplanar MRI of the prostate for radiation treatment planning FINDINGS Space OAR is increased T2 signal and located between the prostate andanterior aspect of the rectum located in the midline and to the right ofmidline. This does not extend to the left. PROSTATE: Current exam is for treatment planning purposes. Please seeprior diagnostic prostate MRI. SEMINAL VESICLES: Within normal limits. ADJACENT ORGANS: Rectum is displaced by the spaceOAR from theposterior aspect of the prostate. LYMPH NODES: No lymphadenopathy is appreciated. BONES/SOFT TISSUE: No bony lesion is appreciated. There is asmall left fatty inguinal hernia. IMPRESSION IMPRESSION MRI for radiation treatment planning purposes. Please see above. Jackson Munoz MD RAD MRI-MRA documented in this encounter Visit Diagnoses Diagnosis Prostate cancer (HCC) Malignant neoplasm of prostate Intestinal metaplasia of stomach documented in this encounter Advance Directives Latest Code Status on File Code Status Date Activated Date Inactivated Comments Full Code 08/09/2016 2:37 PM 08/09/2016 7:17 PM This order reflects the patients wishes and were consensually agreed upon. Care Teams Crop And Soil Technician Relationship Specialty Start Date End Date Jerzy Glez MD [address] [place] [address] PCP - General 12/30/99 documented as of this encounter
--- OUTSIDE RECORDS SUMMARY | 2023-02-05 13:17 | External Medical Summary ---
Author Name Unknown Address Unknown Organization : Laboratory Report Ordering Provider Test Date Status FRANCIA CHAVARRIA 01/19/2023 06:57:51 Final Observation Date Value Abnormality Reference (Units ) Status Glucose Point of Care 01/19/2023 06:57:51 118 70-120 (mg/dL) Final Performing Location
--- OUTSIDE RECORDS SUMMARY | 2023-02-05 13:18 | External Medical Summary | Summary of Care ---
Author Name Unknown Organization [facility] Address [address] [place] [address] Phone [phone] Care Team Providers Care Country Printer Name Role Phone Jerzy Glez MD Primary Care Provider [phone] Encounter Details Date Type Department Care Team Description 12/27/2022 Telephone Urology [facility] [address] [place] [address] Hill Ho MD [address] [place] [address] Allergies No known active allergiesdocumented as of this encounter (statuses as of 12/27/2022) Medications Medication Sig Dispensed Refills Start Date End Date Status Blood Glucose Monitoring Suppl (ONETOUCH VERIO) w/Device KITIndications:DM type 2, not at goal (HCC),Type 2 diabetes mellitus with hemoglobin A1c goal of less than 8.0% ([facility]) Use to check sugar daily E11.9 1 Kit 0 01/31/2019 Active Glucose Blood (ONETOUCH VERIO) STRPIndications:DM type 2, not at goal (HCC),Type 2 diabetes mellitus with hemoglobin A1c goal of less than 8.0% (HCC) Use up check sugar daily E11.9 100 Strip 11 01/31/2019 Active ONETOUCH DELDIANE LANCETS FINE MISCIndications:DM type 2, not at goal (HCC),Type 2 diabetes mellitus with hemoglobin A1c goal of less than 8.0% (HCC) Use to test blood sugar once daily- dx E11.9 1 Each 5 01/31/2019 Active Metoprolol Succinate ER 25 MG Oral Tablet Extended Release 24 Hour (toPROL XL)Indications:[place] ed[place] right-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) Take 1 [...] (Glucophage)Indicat ions:DM type 2, not at goal (HCC) TAKE 1 TABLET BY MOUTH 2 TIMES A DAY WITH MORNING AND EVENING MEALS 180 Tablet 1 09/24/2022 Active LORazepam 0.5 MG Oral Tablet (Ativan)Indications :Anxiety 2 tabs 45 minutes before MRI. Repeat 1 tab 15 minutes before MRI if needed 3 Tablet 0 11/22/2022 Active oxyCODONE HCl 10 MG Oral Tablet (Roxicodone)Indicat ions:Other closed fracture of thoracic vertebra, unspecified thoracic vertebral level, sequela Take 1 Tablet by mouth in the morning and 1 Tablet at noon and 1 Tablet in the evening and 1 Tablet before bedtime. 120 Tablet 0 11/29/2022 Active Losartan Potassium 25 MG Oral Tablet (Cozaar)Indications :HTN, goal below 130/80 Take 1 Tablet by mouth in the morning. 30 Tablet 5 12/16/2022 Active Furosemide 20 MG Oral Tablet (Lasix)Indications: Chronic right-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) TAKE HALF A TABLET BY MOUTH ONCE A DAY ON TUESDAY, TUESDAY, AND TUESDAY ONLY. 15 Tablet 3 12/21/2022 Active documented as of this encounter (statuses as of 12/27/2022) Active Problems Problem Noted Date Cirrhosis of liver with ascites 07/27/19 23 Chronic heart failure with preserved eje ction [...] as of this encounter (statuses as of 12/27/2022) Resolved Problems Problem Noted Date Resolved Date [...] as of this encounter (statuses as of 12/27/2022) Immunizations Name Administration Dates Next Due COVID-19 mRNA, LNP-s, No Pre serve, 2-Dose Series ([employer]) 02/02/2021,06/14/2020,05/24/2020 COVID-19, LNP-s, No Preserve , Ellis-sucrose, [...] as of this encounter Miscellaneous Notes * Addendum Note - Rebecca Tesfaye RN - 12/27/2022 2:24 PM EDTAddended by: REBECCA TESFAYE on: 12/27/2022 02:24 PM Modules accepted: Orders documented in this encounter Plan of Treatment Upcoming Encounters Date Type Specialty Care Team Description 01/04/2023 Office Visit Cardiology Sandra Laura CRNP [address] [place] [address] 01/19/2023 [place] [address] [place] [address] 01/19/2023 [place] [address] [place] [phone] TRANSPERINEAL PLACEMENTBIODEGRADABLE MATERIAL, TOI-PROSTATIC 02/21/2023 Office Visit Gastroenterology Kaity Comer DO [address] [place] [address] 04/13/2023 Office Visit Nephrology Luz Marina De Leon PA-C [address] [place], [place] [address] [address] 05/09/[address] Davis MD [address] [place] [address] 05/09/[address] Davis MD [address] [place] [address] ESOPHAGOGASTRODUODENOSCOPY (EGD), FLEXIBLE, TRANSORAL, DIAGNOSTIC Scheduled Orders Name Type Priority Associated Diagnoses Orde r Schedule EKG EKG Routine History of prostate cancer Expected: 12/27/2022 (Approximate), Expires: 01/28/2024 CULTURE, URINE, QUANTITATIVE Lab Routine History of prostate cancer Other specified disorders of prostate Expected: 12/27/2022, Expires: 12/28/2023 BASIC METABOLIC PANEL Lab Routine History of prostate cancer Expected: 12/27/2022, Expires: 12/28/2023 Scheduled Procedures Name Priority Associated Diagnoses Date/Ti [...] 10/20/2021 10/20/2020, , 09/15/2016, Additional history exists COVID-19 Vaccine (5 - Pfizer series) 12/03/2021 10/08/2021, 02/02/2021, 06/14/2020, Additional history exists COLONOSCOPY-EVERY 3 YRS AGES 18-100 01/30/2022 01/30/2019, 01/30/2019, 08/06/2013, Additional history exists B-12 02/16/2022 02/16/2021, 01/26, 05/18/2018 HbA1c 10/03/2022 04/05/2022, 07/27, 02/16/2021, Additional history exists GFR 04/09/2023 10/07/2022, 07/27, 07/26/2022, Additional history exists Albumin/Creatinine Ratio 10/08/2023 023, 08/17/2021, 07/15/2020, Additional history exists CKD HGB USE SMARTSET 73114 10/08/202310/07, 08/16/2022, 08/16/2022, Additional history exists CKD PHOS USE SMARTSET 87730 10/08/202309/25, 08/17/2021, 03/06/2020, Additional history exists Lipid [...] this encounter Medical Devices Implanted Type Area Box Car Checker Device Identifier Shelf Expiration Date Model / Serial / Lot Lens 19.0 [id number] - [id number] - [id number] Implanted:Qty: 1 on 08/09/2016 by Madi Frederick MD at OR [facility] Right: Eye KIMMIE : SURGICAL 2018 [id number] / [id number] / documented as of this encounter Visit Diagnoses Diagnosis History of prostate cancer- Primary Personal history of malignant neoplasm of prostate Other specified disorders of prostate Prostate cancer (HCC) Malignant neoplasm of prostate Intestinal metaplasia of stomach documented in this encounter Advance Directives Latest Code Status on File Code Status Date Activated Date Inactivated Comments Full Code 08/09/2016 2:37 PM 08/09/2016 7:17 PM This order reflects the patients wishes and were consensually agreed upon. Care Teams Country Printer Relationship Specialty Start Date End Date Jerzy Glez MD [address] [place], [place] [phone] PCP - General 12/30/99 documented as of this encounter
--- OUTSIDE RECORDS SUMMARY | 2023-02-05 13:18 | External Medical Summary ---
Author Name Unknown Address Unknown Organization K01:[facility] - [address] [place] [id number] Laboratory Report Ordering Provider Test Date Status FRANCIA CHAVARRIA 01/04/2023 15:13:45 Final Observation Date Value Abnormality Reference (Units) Status Bacteria identified in Specimen by Culture 01/04/2023 15:13:45 No significant growth Final Test: Culture, Urine, Quant itative
Specimen Source: Urine, Clean Catch
Specimen Type: Urine
Specimen Date: 01/04/2023 3:13 PM
Result Date: 01/05/2023 5:23 PM
Result Status: Final result
Resulting Lab: [facility]
[address]
[place] [address]

CULTURE

No significant growth

null Performing Location [facility] [place] - [address] [facility] [address]
--- OUTSIDE RECORDS SUMMARY | 2023-02-05 13:18 | External Medical Summary | Summary of Care ---
Author Name Unknown Organization [facility] Address [address] [place] [address] Phone [phone] Care Team Providers Care Director Of Diversity And Inclusion Name Role Phone Jerzy Glez MD Primary Care Provider Reason for Visit * Reason Onset Date Comments Medication Refill 12/21/2022 Encounter Details Date Type Department Care Team Description 12/21/2022 Refill Nephrology, Bari Cervantes [address] [facility] [place] [address] Diamond Jseus MD [address] [facility] [address] Chronic right-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) Allergies No known active allergiesdocumented as of this encounter (statuses as of 12/21/2022) Medications Medication Sig Dispensed Refills Start Date [...] MISCIndications:D M type 2, not at goal ([facility]),Type 2 diabetes mellitus with hemoglobin A1c goal of less than 8.0% ([facility]) Use to test blood sugar once daily- [...] (Glucophage)Indic ations:DM type 2, not at goal ([facility]) TAKE 1 TABLET BY MOUTH 2 TIMES A DAY WITH MORNING AND EVENING MEALS 180 Tablet 1 09/24/2022 Active LORazepam 0.5 MG Oral Tablet (Ativan)Indicatio ns:Anxiety 2 tabs 45 minutes before MRI. Repeat 1 tab 15 minutes before MRI if needed 3 Tablet 0 11/22/2022 Active oxyCODONE HCl 10 MG Oral Tablet (Roxicodone)Indic [...] 12/16/2022 Active Furosemide 20 MG Oral Tablet (Lasix)Indication s:Chronic right-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) TAKE HALF A TABLET BY MOUTH ONCE A DAY ON TUESDAY, TUESDAY, AND TUESDAY ONLY. 15 Tablet 3 12/21/2022 Active Furosemide 20 MG Oral Tablet (Lasix)Indication s:Chronic right-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) TAKE HALF A TABLET BY MOUTH ONCE A DAY ON TUESDAY, TUESDAY, AND TUESDAY ONLY. 14 Tablet 5 09/06/2022 3 Discontinue d(Refill) documented as of this encounter (statuses as of 12/21/2022) Active Problems Problem Noted Date Cirrhosis of [...] as of this encounter (statuses as of 12/21/2022) Resolved Problems Problem Noted Date Resolved Date [...] as of this encounter (statuses as of 12/21/2022) Immunizations Name Administration Dates Next Due COVID-19 mRNA, LNP-s, No Pre serve, 2-Dose Series (Pfizer) 02/02/2021,06/14/2020,05/24/2020 COVID-19, LNP-s, No Preserve , Ellis-sucrose, Ages 12+ (Pfizer) 10/08/2021 Pneumococcal Conjugate Vacc, 13 Valent (Prevnar) 03/19/2015 Pneumococcal Polysaccharide PPV23 (Pneumovax) 08/09/2013 Seasonal Influenza, PF, 6 mo ns & Above, IM , (Flulaval) 12/08/2019 Seasonal Influenza, Quadriva lent Hd (Fluzone Hd) 12/19/2020 Seasonal Influenza, Quadriva lent, No Preserve, IM 01/09/2018,01/22/2016,03/06/2015 01/21/2017 Seasonal Influenza, Split, I IV3, With Preserve, Inj 02/06/2013,02/10/2012,01/26/2011,11/07/2009,01/30/2009,02/08/2006 Seasonal Influenza, Trivalen t, Adjuvanted, 65+ yrs [...] encounter Miscellaneous Notes * Telephone Encounter - Diamond Jesus MD - 12/21/2022 4:25 PM EDTSigned Prescriptions: Disp Refills Furosemide 20 MG Oral Tablet (Lasix) 15 Tab*3 Sig: TAKE HALF A TABLET BY MOUTH ONCE A DAY ON TUESDAY, TUESDAY, AND TUESDAY ONLY. Authorizing Provider: DIAMOND JESUS * Telephone Encounter - Loren Salcedo LPN - 12/21/2022 9:03 AM EDT 90 day refill request Last Ov- 10/07/22 Next Ov- 04/13/23 documented in this encounter Plan of Treatment Upcoming Encounters Date Type Specialty Care Team Description 12/22/2022 Immunization [facility], [facility] [address] [place] [address] 02/21/2023 Office Visit Gastroenterology Kaity Comer, [address] [place] [address] 04/13/2023 Office Visit [facility]phrology Luz Marina De Leon [facility] [address] Scheduled Procedures Name Priority Associated Diagnoses Date/Ti me ESOPHAGOGASTRODUODENOSCOPY ( EGD), FLEXIBLE, TRANSORAL, DIAGNOSTIC Recall Intestinal metaplasia of stomach COLONOSCOPY FLEXIBLE PROXIMAL DIAGNOSTIC Recall History of colon polyps Health [...] 10/03/2022 04/05/2022, 07/27, 02/16/2021, Additional history exists Influenza Vaccine (FLU shot) (#1) 2022 01/20/2022, 12/19/2020, 12/08/2019, Additional history exists GFR 04/09/2023 10/07/2022, 07/27, 07/26/2022, Additional history exists Albumin/Creatinine Ratio 10/08/2023 023, 08/17/2021, 07/15/2020, Additional history exists CKD HGB USE SMARTSET 03813 10/08/202310/07, 08/16/2022, 08/16/2022, Additional history exists CKD PHOS USE SMARTSET 99168 10/08/202309/25, 08/17/2021, 03/06/2020, Additional history exists Lipid Panel 08/17/2026 08/17/2021, 01/26, 01/23/2019, Additional history exists DTaP,Tdap,and Td Vaccines (3 - Td or Tdap) 08/18/2031 08/17/2021, 08/03/2010, 02/08/2006 Pneumococcal Vaccine: 65+ Years Completed 03/19/2015, 08/09/2013 AAA Screening Completed 03/11/2020 Zoster Vaccines Completed 04/29/2021, 02/16/2021 GARDASIL-HPV IMMUNIZATION SERIES Aged Out No longer eligible based on patient's age to complete this topic MENINGOCOCCAL (MENACTRA/MENVEO) Aged Out No longer eligible based on patient's age to complete this topic documented as of this encounter Medical Devices Implanted Type Area Dye Machine Operator Device Identifier Shelf Expiration Date Model / Serial / Lot Lens 19.0 [id number] - [id number] - [id number] Implanted:Qty: 1 on 08/09/2016 by Madi Frederick MD at OR [facility] Right: Eye KIMMIE : SURGICAL 2018 [id number] / [id number] / documented as of this encounter Visit Diagnoses Diagnosis Chronic right-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) Congestive heart failure, unspecified documented in this encounter Advance Directives Latest Code Status on File Code Status Date Activated Date Inactivated Comments Full Code 08/09/2016 2:37 PM 08/09/2016 7:17 PM This order reflects the patients wishes and were consensually agreed upon. Care Teams Director Of Diversity And Inclusion Relationship Specialty Start Date End Date Jerzy Glez MD [address] [place] [address] PCP - General 12/30/99 documented as of this encounter
--- OUTSIDE RECORDS SUMMARY | 2023-02-05 13:18 | External Medical Summary | Summary of Care ---
Author Name Unknown Organization [facility] Address [address] [place] [address] Phone [phone] Care Team Providers Care Android Programmer Name Role Phone Jerzy Glez MD Primary Care Provider [phone] Reason for Visit * Reason Onset Date Comments Home Monitoring Orders Only 12/28/2022 Encounter Details Date Type Department Care Team Description 12/28/2022 Home Monitoring Nephrology, [facility] 200 [facility] [place] [address] GarciaKerri choi MD [address] [place] [address] HTN, goal below 130/80* Allergies No known active allergiesdocumented as of this encounter (statuses as of 12/28/2022) Medications Medication Sig Dispensed Refills Start Date End Date Status Blood Glucose Monitoring Suppl (ONETOUCH VERIO) w/Device KITIndications:DM type 2, not at goal (HCC),Type 2 diabetes mellitus with hemoglobin A1c goal of less than 8.0% ([facility]) Use to check sugar daily E11.9 1 Kit 0 01/31/2019 Active Glucose Blood (ONETOUCH VERIO) STRPIndications:DM type 2, not at goal (HCC),Type 2 diabetes mellitus with hemoglobin A1c goal of less than 8.0% (HCC) Use up check sugar daily E11.9 100 Strip 11 01/31/2019 Active CHIKA MONROE MISCIndications:DM type 2, not at goal (HCC),Type 2 diabetes mellitus with hemoglobin A1c goal of less than 8.0% (HCC) Use to test blood sugar once daily- dx E11.9 1 Each 5 01/31/2019 Active Metoprolol Succinate ER 25 MG Oral Tablet Extended Release 24 Hour (toPROL XL)Indications:Door Cutter ede right-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) Take [...] (Glucophage)Indicat ions:DM type 2, not at goal ([facility]) TAKE 1 TABLET BY MOUTH 2 [...] as of this encounter (statuses as of 12/28/2022) Active Problems Problem Noted Date Cirrhosis of [...] as of this encounter (statuses as of 12/28/2022) Resolved Problems Problem Noted Date Resolved Date [...] as of this encounter (statuses as of 12/28/2022) Immunizations Name Administration Dates Next Due COVID-19 mRNA, LNP-s, No Pre serve, 2-Dose Series ([employer]) 02/02/2021,06/14/2020,05/24/2020 COVID-19, LNP-s, No Preserve , Ellis-sucrose, [...] on file documented as of this encounter Progress Notes * [facility] Assistant Passenger Locomotive Engineer - 12/28/2022 10:27 AM EDT Patient has been successfully enrolled to the [id number] hypertension self- management program.Standard alarm settings for [...] parameters or instructions altered for this patient. documented in this encounter Plan of Treatment Upcoming Encounters Date Type Specialty Care Team Description 01/05/20 Office Visit Cardiology Sandra Laura CRNP [address] [place] [address] 01/20/20 [place] [address] [place] [address] 01/20/20 Surgery Surgery [place] Ho MD [address] [place] [address] TRANSPERINEAL PLACEMENTBIODEGRADABLE MATERIAL, TOI-PROSTATIC 01/27/20 Appointment Radiology 01/27/20 Documentation Radiation Oncology Jackson Munoz MD [address] [facility] [place] [address] 01/27/20 23 Nurse Only Radiation Oncology Ctr, Nurse Rad/Onc Cancer [address] [facility] [place] [address] 02/22/20 23 Office Visit Gastroenterology Kaity Comer DO [address] [place], [place] [address] 04/13/19 24 Office Visit Nephrology Luz Marina De Leon PA-C [address] [place] [address] 05/09/[address] Davis MD [address] [place] [address] 05/09/[address] Davis MD [address] [place] [address] ESOPHAGOGASTRODUODENOSCOPY (EGD), FLEXIBLE, TRANSORAL, DIAGNOSTIC Scheduled Procedures [...] Additional history exists CKD HGB USE SMARTSET 30154 10/08/202310/07, 08/16/2022, 08/16/2022, Additional history exists CKD PHOS USE SMARTSET 54788 10/08/202309/25, 08/17/2021, 03/06/2020, Additional history exists Lipid [...] this encounter Medical Devices Implanted Type Area Angle Dozer Operator Device Identifier Shelf Expiration Date Model / Serial / Lot Lens 19.0 [id number] - [id number] - [id number] Implanted:Qty: 1 on 08/09/2016 by Madi Frederick MD at OR [facility] Right: Eye KIMMIE : SURGICAL 2018 [id number] / [id number] / documented as of this encounter Visit Diagnoses Diagnosis HTN, goal below 130/80- Primary Unspecified essential hypertension Prostate cancer (HCC) Malignant neoplasm of prostate Intestinal metaplasia of stomach documented in this encounter Advance Directives Latest Code Status on File Code Status Date Activated Date Inactivated Comments Full Code 08/09/2016 2:37 PM 08/09/2016 7:17 PM This order reflects the patients wishes and were consensually agreed upon. Care Teams Android Programmer Relationship Specialty Start Date End Date Jerzy Glez MD [address] [place], [place] [id number] PCP - General 12/30/99 documented as of this encounter
--- OUTSIDE RECORDS SUMMARY | 2023-02-05 13:18 | External Medical Summary | Summary of Care ---
Author Name Unknown Organization [facility] Address [address] [place] [address] Phone [phone] Care Team Providers Care Jig And Fixture Repairer Name Role Phone Jerzy Glez MD Primary Care Provider [phone] Encounter Details Date Type Department Care Team Description 12/27/2022 Telephone Urology [facility] [address] [place] [address] Hill Ho MD [address] [place] [address] Allergies No known active allergiesdocumented [...] Oral Tablet Extended Release 24 Hour (toPROL XL)Indications:Er Rn ede right-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) Take 1 [...] mRNA, LNP-s, No Pre serve, 2-Dose Series ([employer]) 02/02/2021,06/14/2020,05/24/2020 COVID-19, LNP-s, No Preserve , [...] Cardiology Sandra Laura CRNP [address] [place] [address] 01/19/2023 Hospital Encounter Surgery Hill Ho MD [address] [place] [address] 01/19/2023 Surgery Surgery [place] Ho MD [address] [place] [address] TRANSPERINEAL PLACEMENTBIODEGRADABLE MATERIAL, TOI-PROSTATIC 02/21/2023 Office Visit Gastroenterology Kaity Comer DO [address] [place] [address] 04/13/2023 Office Visit Nephrology Luz Marina De Leon PA-C [address] [place] [address] 05/09/[address] Davis MD [address] [place] [address] 05/09/[address] Davis MD [address] [place] [address] ESOPHAGOGASTRODUODENOSCOPY (EGD), FLEXIBLE, TRANSORAL, DIAGNOSTIC Scheduled Procedures [...] Additional history exists CKD HGB USE SMARTSET 55098 10/08/202310/07, 08/16/2022, 08/16/2022, Additional history exists CKD PHOS USE SMARTSET 64836 10/08/202309/25, 08/17/2021, 03/06/2020, Additional history exists Lipid [...] encounter Medical Devices Implanted Type Area Oracle Ebs Architect Device Identifier Shelf Expiration Date Model / Serial / Lot Lens 19.0 Cz70bd - [id number] - [id number] Implanted:Qty: 1 on 08/09/2016 by Madi Frederick MD at OR [facility] Right: Eye KIMMIE : SURGICAL 2018 [id number] / [id number] / documented as of this encounter Advance Directives Latest Code Status on File Code Status Date Activated Date Inactivated Comments Full Code 08/09/2016 2:37 PM 08/09/2016 7:17 PM This order reflects the patients wishes and were consensually agreed upon. Care Teams Jig And Fixture Repairer Relationship Specialty Start Date End Date Jerzy Glez MD [address] [place] [address] PCP - General 12/30/99 documented as of this encounter
--- OUTSIDE RECORDS SUMMARY | 2023-02-05 13:18 | External Medical Summary | Summary of Care ---
Author Name Unknown Organization [facility] Address [address] [place] [address] Phone [phone] Care Team Providers Care Plastic Injection Mold Maker Name Role Phone Jerzy Glez MD Primary Care Provider [phone] Reason for Visit * Reason Onset Date Comments Medication Refill 12/16/2022 Encounter Details Date Type Department Care Team Description 12/16/2022 Refill Nephrology, Bari Cervantes 200 [facility] [place] [address] Diamond Jesus MD [address] [place] [address] HTN, goal below 130/80 Allergies No known active allergiesdocumented as of this encounter (statuses as of 12/16/2022) Medications Medication Sig Dispensed Refills Start Date End Date Status Blood Glucose Monitoring Suppl (ONETOUCH VERIO) w/Device KITIndications:DM type 2, not at goal (HCC),Type 2 diabetes mellitus with hemoglobin A1c goal of less than 8.0% ([facility]) Use to check sugar daily E11.9 1 Kit 0 01/31/2019 Active Glucose Blood (ONETOUCH VERIO) STRPIndications:D M type 2, not at goal (HCC),Type 2 diabetes mellitus with hemoglobin A1c goal of less than 8.0% (HCC) Use up check sugar daily E11.9 100 Strip 11 01/31/2019 Active CHIKA MONROE MISCIndications:D M type 2, not at goal ([facility]),Type 2 diabetes mellitus with hemoglobin A1c goal of less than 8.0% ([facility]) Use to test blood sugar once [...] at bedtime. 90 Tablet 3 09/01/2022 Active Furosemide 20 MG Oral Tablet (Lasix)Indication s:Chronic right-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) TAKE HALF A TABLET BY MOUTH ONCE A DAY ON TUESDAY, TUESDAY, AND TUESDAY ONLY. 14 Tablet 5 09/06/2022 Active Additional Information Patient taking differently: 20 mg Oral Daily(AM), TAKE HALF A TABLET BY MOUTH ONCE A DAY ON TUESDAY, TUESDAY, AND TUESDAY ONLY., Reported on 12/02/2022 Ciprofloxacin HCl 500 MG Oral Tablet (Cipro) Take 1 Tablet by mouth in the morning and 1 Tablet before bedtime. Start the day before the biopsy. 6 Tablet 0 09/22/2022 Active Additional Information Patient not taking.Reported on 12/02/2022 metFORMIN HCl 500 MG Oral Tablet (Glucophage)Indic ations:DM type 2, not at goal ([facility]) TAKE 1 TABLET BY MOUTH 2 [...] the morning. 30 Tablet 5 12/16/2022 Active Losartan Potassium 25 MG Oral Tablet (Cozaar)Indicatio ns:HTN, goal below 130/80 Take 1 Tablet by mouth in the morning. 30 Tablet 5 11/19/2022 3 Discontinue d(Refill) documented as of this encounter (statuses as of 12/16/2022) Active Problems Problem Noted Date Cirrhosis of [...] as of this encounter (statuses as of 12/16/2022) Resolved Problems Problem Noted Date Resolved Date [...] as of this encounter (statuses as of 12/16/2022) Immunizations Name Administration Dates Next Due COVID-19 mRNA, LNP-s, No Pre serve, 2-Dose Series ([employer]) 02/02/2021,06/14/2020,05/24/2020 COVID-19, LNP-s, No Preserve , Ellis-sucrose, [...] Telephone Encounter - Diamond Jesus MD - 12/16/2022 11:15 AM EDTSigned Prescriptions: Disp Refills Losartan Potassium 25 MG Oral Tablet (Coza*30 Tab*5 Sig: Take 1 Tablet by mouth in the morning.Authorizing Provider: DIAMOND JESUS * Telephone Encounter - Bee Parikh RN - 12/16/2022 9:34 AM EDTPending Prescriptions: Disp Refills Losartan Potassium 25 MG Oral Tablet (Coza*30 Tab*5 Sig: Take 1 Tablet by mouth in the morning. * Telephone Encounter - Bee Parikh RN - 12/16/2022 9:33 AM EDT Prescription request received from pharmacy pending. Please authorize. Last OV 10/07/22 Next OV 04/13/23 * Telephone Encounter - Lesvia Reddingrin - 12/16/2022 9:12 AM EDT Did you pend patient's preferred pharmacy and medication before forwarding?yes Pharmacy: [id number] [address] [facility] Pending Prescriptions: Disp Refills Losartan Potassium 25 MG Oral Tablet (Coz*30 Tab*5 Sig: Take 1 Tablet by mouth in the morning. Last Visit: 12/22/2021 (in office), 04/10/2020 (telemedicine) Next Visit: 04/13/2023 If no future appointments scheduled, and last appointment is greater than a year ago, please schedule patient for a follow-up appointment Last date the medication was ordered: 11/19/22 Is this request for a controlled substance?No Urine Drug Screen: Results for orders placed or performed in [...] COMMENT SEE COMMENT DETECTION LIMIT SEE COMMENT Patient Phone Numbers Labs: Lab Results Component Value Date/Time CREAT 1.3 (H) 10/07/2022 04:12 PM CREAT 1.3 (H) 04/15/2020 02:46 PM POTASSIUM 4.6 10/07/2022 04:12 PM POTASSIUM 4.7 04/15/2020 02:46 PM TSH 2.15 07/26/2022 11:08 AM TSH 2.38 05/05/2010 02:18 PM LDLCALC 114 08/17/2021 10:16 AM LDLCALC 126 02/14/2020 01:02 PM LDLDIRECT NOT APPLICABLE 02/14/2020 01:02 PM LDLDIRECT 134 (H) 05/18/2018 11:16 AM ALT 53 (H) 08/16/2022 11:44 AM ALT 40 02/14/2020 01:02 PM HGBA1C 5.9 (H) 04/05/2022 10:01 AM HGBA1C 6.4 (H) 02/14/2020 01:02 PM documented in this encounter Plan of Treatment Upcoming Encounters Date Type Specialty Care Team Description 12/16/2022 Imaging Radiology 12/17/2022 Office Visit Radiation Oncology Jackson Mnuoz MD [address] [place] [address] [place] [address] 12/21/2022 Telemedicine Urology Jackson Rosenberg Jr., MD [address] [facility] [address] [place] [address] 02/21/2023 Office Visit Gastroenterology Kaity Comer, [address] [place] [address] 04/13/2023 Office Visit Nephrology Luz Marina De Leon PA-C [address] [facility] [address] Scheduled Procedures Name Priority Associated Diagnoses Date/Ti [...] Additional history exists CKD HGB USE SMARTSET 76988 10/08/202310/07, 08/16/2022, 08/16/2022, Additional history exists CKD PHOS USE SMARTSET 18313 10/08/202309/25, 08/17/2021, 03/06/2020, Additional history exists Lipid [...] this encounter Medical Devices Implanted Type Area Life Sciences Manager Device Identifier Shelf Expiration Date Model / Serial / Lot Lens 19.0 [id number] - [id number] - [id number] Implanted:Qty: 1 on 08/09/2016 by Madi Frederick MD at OR [facility] Right: Eye KIMMIE : SURGICAL 2018 [id number] / [id number] / documented as of this encounter Visit Diagnoses Diagnosis HTN, goal below 130/80 Unspecified essential hypertension documented in this encounter Advance Directives Latest Code Status on File Code Status Date Activated Date Inactivated Comments Full Code 08/09/2016 2:37 PM 08/09/2016 7:17 PM This order reflects the patients wishes and were consensually agreed upon. Care Teams Plastic Injection Mold Maker Relationship Specialty Start Date End Date Jerzy Glez MD [address] [place] [address] PCP - General 12/30/99 documented as of this encounter
--- OUTSIDE RECORDS SUMMARY | 2023-02-05 13:18 | External Medical Summary ---
Author Name Unknown Address Unknown Organization K01:LAB[facility]ATORY [facility] [place] - [address] [place] [address] Laboratory Report Ordering Provider Test Date Status ALECIA AMAYA 01/04/2023 15:11:37 Final Observation Date Value Abnormality Reference (Units ) Status Vitamin B12 01/04/2023 15:11:37 1502 Above high normal 232-1245 (pg/mL) Final Performing Location LABORATORY [facility] - [address] [place] [address]
--- OUTSIDE RECORDS SUMMARY | 2023-02-05 13:18 | External Medical Summary | Summary of Care ---
Author Name Unknown Organization [facility] Address [address] [facility] [place] [address] Phone [phone] Care Team Providers Care Pot Sander Name Role Phone Jerzy Glez MD Primary Care Provider [phone] Reason for Referral * Precert (Within 10 days (routine)) - Authorized Specialty Diagnoses / Procedures Referred By Swapnil caldwell Referred To Contact Radiology Diagnoses Prostate cancer (HCC) Procedures MRI PELVIS W/O CONTRAST - RAD ONC PLANNING Jackson Munoz MD [address] [place] [address] Referral ID Status Reason Start Date Expiration Date V isits Requested Visits Authorized [id number] Authorized 01/16/2023 999 999 Reason for Visit * Reason Comments NEW PATIENT * Evaluate & Treat - Unlimited Visits (Within 10 days (routine)) - Authorized Specialty Diagnoses / Procedures Referred By Swapnil caldwell Referred To Contact Radiation Oncology Diagnoses Prostate cancer (HCC) [facility] Mun[facility] [address] [facility] [place] [address] Referral ID Status Reason Start Date Expiration Date Visits Requested Visits Authorized [id number] Authorized Specialty Services Required 12/13/[phone] Encounter Details Date Type Department Care Team Description 12/17/2022 Office Visit Radiation Oncology [facility] Tevin [address] [place] [address] Jackson Munoz MD [facility] [address] [facility] [place] [address] Prostate cancer (HCC)* Allergies No known active allergiesdocumented as of this encounter (statuses as of 12/17/2022) Medications Medication Sig Dispensed Refills Start Date End Date Status Blood Glucose Monitoring Suppl (ONETOUCH VERIO) w/Device KITIndications:DM type 2, not at goal ([facility]),Type 2 diabetes mellitus with hemoglobin A1c goal of less than 8.0% ([facility]) Use to check sugar daily E11.9 1 Kit 0 01/31/2019 Active Glucose Blood (Tour RaiserTOUCH VERIO) STRPIndications:DM type 2, not at goal ([facility]),Type 2 diabetes mellitus with hemoglobin A1c goal of less than 8.0% ([facility]) Use up check sugar daily E11.9 100 Strip 11 01/31/2019 Active Tour RaiserTOUCH ELIZABETH ROGERS FINE MISCIndications:DM type 2, not at goal ([facility]),Type 2 diabetes mellitus with hemoglobin A1c goal of less than 8.0% ([facility]) Use to test blood sugar once daily- dx E11.9 1 Each 5 01/31/2019 Active Metoprolol Succinate ER 25 MG Oral Tablet Extended Release 24 Hour (toPROL XL)Indications: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 90 Tablet 3 04/08/2022 Active traZODone HCl 100 MG Oral Tablet (Desyrel)Indication s:Persistent insomnia Take 1 Tablet by mouth at bedtime. 90 Tablet 3 09/01/2022 Active Furosemide 20 MG Oral Tablet (Lasix)Indications: [...] the morning. 30 Tablet 5 12/16/2022 Active documented as of this encounter (statuses as of 12/17/2022) Active Problems Problem Noted Date Cirrhosis of [...] as of this encounter (statuses as of 12/17/2022) Resolved Problems Problem Noted Date Resolved Date [...] as of this encounter (statuses as of 12/17/2022) Immunizations Name Administration Dates Next Due COVID-19 mRNA, LNP-s, No Pre serve, 2-Dose Series ([employer]) 02/02/2021,06/14/2020,05/24/2020 COVID-19, LNP-s, No Preserve , Ellis-sucrose, [...] Sign Reading Time Taken Comments Blood Pressure 160/72 12/17/2022 1:44 PM EDT Pulse 60 12/17/2022 1:44 PM EDT Temperature 36.2 C (97.2 F) 12/17/2022 1:44 PM ED T Respiratory Rate 16 12/17/2022 1:44 PM EDT Oxygen Saturation 95% 12/17/2022 1:44 PM EDT Inhaled Oxygen Concentration - - Weight 92.4 kg (203 lb 9.6 oz) 12/17/2022 1:44 P M EDT Height - - Body Mass Index 30.07 07/26/2022 10:03 AM EDT documented in this encounter Progress Notes * Jackson Munoz MD - 12/17/2022 3:31 PM EDT Images from the original note were not included. RADIATION ONCOLOGY ESTABLISHED PATIENT VISIT [facility], [facility] DATE: 12/17/22 DIAGNOSIS: Prostate Cancer, intermediate risk STAGE: AJCC 8th ed. Stage IIA (cT2c N0 M0), Carpinteria score 3+3=6 (grade group 1), PSA 5.88 ng/ml HISTORY OF PRESENT ILLNESS: Mr. Delvis Munoz is a 72 year old male [facility] of newly diagnosed intermediate risk prostate cancer. The patient has been identified by name and date, and confirmed by the patient. All of his available medical records, imaging and data were personally reviewed. Pertinent details are summarized below. Mr. Munoz is accompanied today by his and daughter. His PSA was elevated to 5.88ng/mL on 07/26/2022. TRUS-guided prostate biopsy on 11/15/2022 showed Philly score 3+3=6 adenocarcinoma in 6/6 template cores involving up to 85% of each core. MRI of theprostate on 12/08/2022 showed a 1.5cm lesion in the right apex with subtle contour bulge suspiciousfor extracapsular extension. Negative for SVI or pelvic lymphadenopathy. Prostate volume is approximately 15cc. His bone scan was negative for osseous metastases. Today, he reports he feels well overall. He has no bothersome urinary complaints. He denies dysuria, hematuria, daytime frequency, weak stream or hesitancy, incontinence. He also denies loose stools,diarrhea, and rectal bleeding. IPSS score is 2, nocturia x1. BE score is 2, and he is not interest ed in seeking medical treatment related to erectile dysfunction. PRIOR RADIATION THERAPY HISTORY: No prior history of radiation therapy. PAST MEDICAL HISTORY: Past Medical History: Diagnosis Date Back pain, thoracic pain management with [facility] group BENIGN HYPERTENSION 03/30/2005 Closed fracture of seven ribs 08/12/2010 MEDICATION USE AGREEMENT 12/27/2011 OTHER 10/2010 pulmonary nodule/ Follow CT for 2 years/ repeat 03/10 Other chronic sinusitis Prostate cancer (HCC) Tubular adenoma of colon 03/19/2013 No history of scleroderma or active connective tissue disease. No metal implants or fragments. No pacemaker/ defibrillator. PAST SURGICAL HISTORY: Past Surgical History: Procedure Laterality Date COLONOSCOPY 05/2006 tubular adenoma - repeat 2011 COLONOSCOPY, DIAGNOSTIC (RECTUM) 08/06/2013 adenomatous polyps, melanosis, repeat 3 yrs/COLONOSCOPY FLEXIBLE PROXIMAL DIAGNOSTIC performed by Lane Davis MD at ENDOSCOPY [facility] COLONOSCOPY, DIAGNOSTIC (RECTUM) 01/30/2019 tubulovillous adenomas polyp, diverticulosis, repeat 3 yrs/COLONOSCOPY FLEXIBLE PROXIMAL DIAGNOSTICperformed by Lane Davis MD at ENDOSCOPY [facility] EGD, FLEXIBLE, DIAGNOSTIC 07/07/2020 GE junction possibly small varices, variant mucosa in the antrum, letitia-ampullary diverticulum /biopsy intestinal metaplasia / recall 1 year / ESOPHAGOGASTRODUODENOSCOPY (EGD), FLEXIBLE, TRANSORAL, DIAGNOSTIC performed by Lane Davis MD at ENDOSCOPY [facility] EGD, W/ENDOSCOPIC US N/A 11/18/2021 abnormal echogenicity of liver/biopsies of liver show bridging fibrosis and focal nodule formation in background of minimal to mild steatosis/intrahepatocellular diastase resistant globues present/ESO PHAGOGASTRODUODENOSCOPY (EGD), FLEXIBLE, TRANSORAL, ENDOSCOPIC ULTRASOUND performed by Rodolfo Gonsalez MD at OR [facility] INJECT DX/THER SUBSTANCE INTERLAMINAR LUMBAR/SACRAL W IMAGE GUIDE 10/06/2022 INJECTION SPINE LUMBAR OR SACRAL performed by Wil Simon DO at OR [facility] INSERTION OF LENS PROSTHESIS Right 08/09/2016 INSERTION [...] by Madi Frederick MD at OR [facility] CURRENT MEDICATIONS: Current Outpatient Medications Medication Sig Dispense Refill Blood Glucose Monitoring Suppl ([employer]) w/Device KIT Use to check sugar daily E11.9 1 Kit 0 Glucose Blood (Thoughtful MediaUCH VERMandata (Management [employer] Data Services)) STRP Use up check sugar daily E11.9 100 Strip 11 ONETOUCH DELICA LANCETS FINE MISC Use to test blood sugar once daily- dx E11.9 1 Each 5 Metoprolol Succinate ER 25 MG Oral Tablet Extended Release 24 Hour (toPROL XL) Take 1 Tablet by mouth in the morning. 90 Tablet 3 traZODone HCl 100 MG Oral Tablet (Desyrel) Take 1 Tablet by mouth at bedtime. 90 Tablet 3 Furosemide 20 MG Oral Tablet (Lasix) TAKE HALF A TABLET BY MOUTH ONCE A DAY ON TUESDAY, TUESDAY, AND TUESDAY ONLY. (Patient taking differently: Take 1 Tablet by mouth in the morning. TAKE HALF A TABLET BY MOUTH ONCE A DAY ON TUESDAY, TUESDAY, AND TUESDAY ONLY..) 14 Tablet 5 metFORMIN HCl 500 MG Oral Tablet (Glucophage) TAKE 1 TABLET BY MOUTH 2 TIMES A DAY WITH MORNING ANDEVENING MEALS 180 Tablet 1 LORazepam 0.5 MG Oral Tablet (Ativan) 2 tabs 45 minutes before MRI. Repeat 1 tab 15 minutes before MRI if needed 3 Tablet 0 oxyCODONE HCl 10 MG Oral Tablet (Roxicodone) Take 1 Tablet by mouth in the morning and 1 Tablet at noon and 1 Tablet in the evening and 1 Tablet before bedtime. 120 Tablet 0 Losartan Potassium 25 MG Oral Tablet (Cozaar) Take 1 Tablet by mouth in the morning. 30 Tablet 5 Ciprofloxacin HCl 500 MG Oral Tablet (Cipro) Take 1 Tablet by mouth in the morning and 1 Tablet before bedtime. Start the day before the biopsy. (Patient not taking: Reported on 12/17/2022) 6 Tablet 0 No current facility-administered medications for this visit. ALLERGIES: Patient has no known allergies. 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: [id number] Comment: [employer] Tobacco Use Smoking status: Former Packs/day: 1.00 Years: 20.00 Pack years: 20.00 Types: Cigarettes Quit date: 03/28/1986 Years since quittin.7 Smokeless tobacco: Never Vaping Use Vaping Use: Never used Substance and Sexual Activity Alcohol use: No Drug use: No Sexual activity: Not on file Other Topics Concern Not on file Social History Narrative 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 - [employer] Social Determinants of Health Financial Resource Strain: Not on file Food Insecurity: Not on file Transportation Needs: Not on file Physical Activity: Not on file Stress: Not on file Social Connections: Not on file Intimate Partner Violence: Not on file Housing Stability: Not on file FAMILY HISTORY: Family History Problem Relation Age of Onset Diabetes Mother Stroke Mother Prostate cancer Brother Diabetes Uncle (Unspecified) Cancer None Heart Disorder None Thyroid Disorder None Eye Problems None Patient denies HX AMD, glaucoma, retinal detachment or blindness REVIEW OF SYSTEMS: See HPI. PHYSICAL EXAM: Vital Signs: Vitals: 12/17/22 1344 Temp: 36.2 C (97.2 F) Pulse: 60 Resp: 16 SpO2: 95% BP: 160/72 ECOG Performance Status: 1 General: Well nourished, well developed male, appears stated age. HEENT: Head: Skull normocephalic, atraumatic. Hair with average texture and normal distribution. Eyes: Sclera anicteric, conjunctiva pink. Respiratory: Breathing comfortably on room air. Abdominal/ GI: Soft, non-tender. MSK: No spinal tenderness. Gait normal, able to get on and off the treatment table. No evidence of swelling or deformity. Neurologic: Alert, orientated, affect pleasant and cooperative. No gross motor or sensory deficits. Skin, Hair, Nails: Color normal. Skin warm and moist. LABORATORY STUDIES: Date PSA (ng/ml) 05/24/2017 2.56 02/14/2020 4.24 08/17/2021 4.99 07/26/2022 5.88 RADIOLOGY REVIEW: MRI prostate was reviewed by me, I agree with interpreting radiologist. EXAM MR PROSTATE, WITH/WITHOUT CONTRAST-12/08/2022 11:06 am HISTORY prostate cancer COMPARISON None FINDINGS PROSTATE: - Measures: 4.1 x 2.6 x 2.7 cm (TV x AP x CC), with estimated volume of 15 mL. - Transitional zone: Heterogeneous T2 signal in the transition zone consistent with stromal and glandular hyperplasia. - Peripheral zone: T1 hyperintense signal suggesting post biopsy hemorrhage. Diffuse heterogeneous T2 hypointense signal and restricted diffusion in the peripheral zone. Specifically, there is a 1.5 cm lesion in the right apex with subtle contour bulge. - Extraprostatic extension: As above. SEMINAL VESICLES: Within normal limits. ADJACENT ORGANS: Within normal limits. LYMPH NODES: Within normal limits. BONES/SOFT TISSUE: Within normal limits. IMPRESSION 1. Diffuse heterogeneous T2 hypointense signal and restricted diffusion in the peripheral zone. Specifically, there is a 1.5 cm lesion in the right apex with subtle contour bulge. This rises concern for extracapsular extension given subtle contour bulge and also the degree of tumor capsule contact.Findings compatible with known path proven prostate malignancy. No involvement of the neurovascularbundles. No lymphadenopathy. PATHOLOGY REVIEW: Biopsy Specimen of prostate, as reviewed at [facility]: SURGICAL PATHOLOGY: [id number] Order: [id number] Status: Final result Visible to patient: Yes (seen) Next appt: 12/21/2022 at 08:00 AM in *[facility]* (Jackson Rosenberg Jr, MD) Dx: Elevated prostate specific antigen (PSA) 0 Result Notes Component Final Diagnosis Prostate Biopsy Part Location Core # Core (cm) Diagnosis Philly Grade Group PN inv % SURVEY METHODOLOGIST A Right base 1 1.6 Prostatic adenocarcinoma 3+3=6 1 No 60% B Right mid 1 1.7 Prostatic adenocarcinoma 3+3=6 1 No 80% C Right apex 1 1.8 Prostatic adenocarcinoma 3+3=6 1 No 85% D Left base 1 1.5 Prostatic adenocarcinoma 3+3=6 1 No 30% E Left mid 1 1.6 Prostatic adenocarcinoma 3+3=6 1 No 30% F Left apex 1 1.8 Prostatic outlet carcinoma 3+3=6 1 No 60% CORES with CARCINOMA = 6/6 *SURVEY METHODOLOGIST = Prostate Carcinoma *Core = total length of cores submitted *PN inv = Perineural Invasion *HGPIN = High grade prostatic intraepithelial neoplasia *Grade group 1: Carpinteria Score ? 6 *Grade group 2: Carpinteria score 3+4=7 *Grade group 3: Carpinteria score 4+3=7 *Grade group 4: Philly score 8 *Grade group 5: Philly score 9-10 Reference: Macario PM, Lucas PC, Cami AW, Gloria JL. Prognostic Carpinteria grade grouping: data based on the modified Philly scoring system. BJU Int. 2013:111:753-760. ASSESSMENT: Delvis Munoz is a 72 year old male presenting with a PSA of 5.88ng/mL and prostate biopsy showing 6/6 cores positive for Carpinteria score 3+3=6 adenocarcinoma. No evidence of metastatic disease on MRI or bone scan. He is here today to discuss radiation treatment options. PLAN: 1) Radiation Therapy Options: There are multiple fractionation schedules for delivering external beam radiation. External radiation with conventionally fractionated intensity modulated radiotherapy (IMRT) is given Tuesday through Tuesday, 5 days a week, for approximately 7-8 weeks. An additional treatment option involves hypofract ionated radiation therapy. Moderately hypofractionated IMRT can be done (270 cGy in 26 fractions) over 5.5 weeks. I explained the difference between 3D conformal radiation and IMRT alone and the factthat there is better radiation dose homogeneity and fewer bladder and rectal complications with IMRT compared to 3D conformal treatment. Stereotactic body radiotherapy (SBRT) involves treating the prostate with 5 fractions of radiation,usually given two times per week for a total treatment course of 2 1/2 weeks. Each fraction of radiation is bigger than a conventional IMRT fraction, and the total radiation dose is radiobiologicallyequivalent to a course of IMRT. SBRT can be delivered via Cyber Knife or on a linear accelerator. Antonieta discussed the rationale behind SBRT. I explained that there is a radiobiological benefit to larger doses per fraction, however with the potential for increased late toxicity (both bowel and bladder). The follow-up data for extreme hypofractionation (SBRT) to the prostate has shown excellent biochemical control. The acute and chronic toxicity of treatment is equivalent to the toxicity of IMRT. 2) Image Guidance: Daily cone beam CT (CBCT), implanted veneer marker seeds (fiducials), or Van Buren beacons are used fordaily target localization. For patients who receive Van Buren beacons, they are able to have MRI in the future, however the prostate will be somewhat obscured by the beacons. Image guidance using fiducials for daily target localization and tracking is typically done when CyberKnife is used. 3) Rectal Hydrogel Spacer: We discussed the option of hydrogel (SpaceOAR) implementation as a spacer between the rectum and the prostate withNAME@. Benefits include improved rectal dosimetry and decrease in rectal toxicity, with some evidence of decrease in and sexual toxicity as well. The hydrogel (SpaceOAR) is instilledvia transerpineal outpatient procedure by a Urologist under light sedation with transrectal ultrasound guidance. SpaceOAR is a temporary instillation that starts to dissolve at 3 months and is completely gone by 6 months. Potential complications associated with SpaceOAR hydrogel include, but are not limited to, pain or discomfort, bleeding, needle penetration/SpaceOAR injections of the nearby organs, local inflammatory reactions, infection, urinary retention, constipation, and rectal urgency. 4) Hormone Therapy: I did not recommend concurrent hormones or hormones alone (androgen deprivation therapy [ADT]) for this early stage, low or intermediate grade cancer. 5) Next Steps: He is interested in Cyberknife treatment with SpaceOAR and gold fiducials. He has elected to proceed with a course of radiation therapy treatments at [facility]. Informed consent has been obtained today. He will be scheduled for CT simulation after appointment for SpaceOAR and fiducial placement is confirmed with urology in [place]. Referral has been made for that. Following generation of a customized treatment plan, he will initiate treatment. Informed Consent: The rationale for and potential complications of radiotherapy in this setting were discussed in detail with Delvis Munoz and his and daughter. He is aware of the potential complications to radiosensitive normal tissue structures both in and out of the radiation field. Potential complications include, but are not limited to: Hair: Causing hair loss in the treatment field that could become permanent Bones: The femur and pelvis will be at increased risk for bone exposure and fracture. Nerves: Nerves in the treatment field can be damaged and not function properly after radiation. Causing neurologic dysfunction that may be debilitating and permanent and/or fatal. Urinary: Include, but are not limited to, increased daytime urinary frequency, urgency, nocturia, dysuria, hematuria, and fatigue. The potential late complications were also explained which include, but are not limited to, chronic cystitis, a less than 1% risk of urinary incontinence, and a 50-70% potency preservation rate depending upon pre-treatment function. Additional possible complications with a radiation implant include bleeding, infection, headaches from anesthesia, and termite exterminator helper indwelling Lomax catheter. Gastrointestinal: Loosening of the stools, increase in the number of bowel movements, rectal bleeding, rectal discomfort, chronic proctitis, a 10% risk of rectal bleeding, a 2-3% risk of severe rectal bleeding, a less than 1% risk of bowel or bladder injury requiring surgical intervention. We estimated that the risk of a severe complication is 5%. Delvis Munoz is well informed and asked to schedule his treatment as planned. This is a no charge visit. Jackson Munoz MD, PharmD Radiation Oncology [facility] [place] documented in this encounter Plan of Treatment Upcoming Encounters Date Type Specialty Care Team Description 12/21/2022 Telemedicine Urology Shakira Arriaga, Jackson Pena MD [address] [place] [id number] 12/22/2022 Immunization Ancillary [place] [address], [place] [id number] 02/21/2023 Office Visit Gastroenterology Kaity Comer DO [address] [facility] [place] [address] 04/13/2023 Office Visit Nephrology Luz Marina De Leon PA-C [address] [facility], [place] [address] Scheduled Orders Name Type Priority Associated Diagnoses Orde r Schedule MRI PELVIS W/O CONTRAST - RAD ONC PLANNING Medical Imaging Routine Prostate cancer (HCC) Expected: 01/16/2023, Expires: 01/17/2024 Scheduled Procedures Name Priority Associated Diagnoses Date/Ti [...] Additional history exists CKD HGB USE SMARTSET 19146 10/08/202310/07, 08/16/2022, 08/16/2022, Additional history exists CKD PHOS USE SMARTSET 59612 10/08/202309/25, 08/17/2021, 03/06/2020, Additional history exists Lipid [...] this encounter Medical Devices Implanted Type Area Student Life Advisor Device Identifier Shelf Expiration Date Model / Serial / Lot Lens 19.0 [id number] - [id number] - [id number] Implanted:Qty: 1 on 08/09/2016 by Madi Frederick MD at OR [facility] Right: Eye KIMMIE : SURGICAL 2018 [id number] / [id number] / documented as of this encounter Visit Diagnoses Diagnosis Prostate cancer (HCC)- Primary Malignant neoplasm of prostate documented in this encounter Advance Directives Latest Code Status on File Code Status Date Activated Date Inactivated Comments Full Code 08/09/2016 2:37 PM 08/09/2016 7:17 PM This order reflects the patients wishes and were consensually agreed upon. Care Teams Pot Sander Relationship Specialty Start Date End Date Jerzy Glez MD [facility] [place] [address] PCP - General 12/30/99 documented as of this encounter
--- OUTSIDE RECORDS SUMMARY | 2023-02-05 13:18 | External Medical Summary | Summary of Care ---
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 Please contact patient . ANDREINA Venegas * Telephone Encounter - Jaci Briggs RN - 12/23/2022 1:46 PM EDT LVM for patient to call to schedule surgery documented in this encounter Plan of Treatment Upcoming Encounters Date Type Specialty Care Team Description 02/21/2023 Office Visit Gastroenterology Kaity Comer DO [address] [place] [address] 04/13/2023 [facility]z [facility] De [facility] [address] 05/09/[address] Davis MD [address] [place] [address] 05/09/[address] Davis MD [address] [place] [address] ESOPHAGOGASTRODUODENOSCOPY (EGD), FLEXIBLE, TRANSORAL, DIAGNOSTIC Scheduled Procedures [...] Additional history exists CKD HGB USE SMARTSET 27851 10/08/202310/07, 08/16/2022, 08/16/2022, Additional history exists CKD PHOS USE SMARTSET 57002 10/08/202309/25, 08/17/2021, 03/06/2020, Additional history exists Lipid [...] this encounter Medical Devices Implanted Type Area Parts Driver Device Identifier Shelf Expiration Date Model / Serial / Lot Lens 19.0 [id number] - [id number] - [id number] Implanted:Qty: 1 on 08/09/2016 by Madi Frederick MD at OR [facility] Right: Eye KIMMIE : SURGICAL 2018 [id number] / [id number] / documented as of this encounter Advance Directives Latest Code Status on File Code Status Date Activated Date Inactivated Comments Full Code 08/09/2016 2:37 PM 08/09/2016 7:17 PM This order reflects the patients wishes and were consensually agreed upon. Care Teams Cement Patcher Relationship Specialty Start Date End Date Jerzy Glez MD [address] [place] [address] PCP - General 12/30/99 documented as of this encounter
--- OUTSIDE RECORDS SUMMARY | 2023-02-05 13:18 | External Medical Summary ---
Author Name Unknown Address Unknown Organization K01:[facility] - [address] [place] [address] Laboratory Report Ordering Provider Test Date Status ALECIA AMAYA 01/04/2023 15:11:37 Final Observation Date Value Abnormality Reference (Units ) Status HbA1C 01/04/2023 15:11:37 5.8 Above high normal 4. 0-5.6 (%) Final The use of HbA1c to monitor glycemic status is based on normal hemoglobin and HbA composition. This test should not be used in patients with abnormal hemoglobin that affects the half life of the red blood cell or the in vivo glycation rates. Glucose, estimated average 01/04/2023 15:11:37 120 <126 (mg/dL) Final Performing Location [facility] - [address] [place] [address]
--- OUTSIDE RECORDS SUMMARY | 2023-02-05 13:18 | External Medical Summary | Summary of Care ---
Author Name Unknown Organization [facility] Address [address] [place] [address] Phone [phone] Care Team Providers Care Water Resource Engineering Specialist Name Role Phone Jerzy Glez MD Primary Care Provider [phone] Reason for Referral * Evaluate & Treat - Unlimited Visits (Within 10 days (routine)) - Authorized Specialty Diagnoses / Procedures Referred By Contac t Referred To Contact Pharmacist / Pharmacy Diagnoses HTN, goal below 130/80 Kerri Garcia MD [address] [place] [address] Referral ID Status Reason Start Date Expiration Date Visits Requested Visits Authorized [id number] Authorized Specialty Services Required 12/28/2022 99 99 Question Answer Referral Priority Within 10 days (routine) Department: Specialist Specialty: Nephro Reason for Referral: HTN Goal BP: < 140/90 Comments Patient has been successfully enrolled to the [id number] hypertension self-management program. Standard alarm settings for this patient have been [...] Delvis Munoz will have his medication therapy managed by the [facility] Medication [facility] ([facility]) per established policies, procedures, and protocols. I also certify that this referral may serve as an initiation of service for the management of drug therapy in the above noted patient. [facility] providers will be responsible for scheduling patient visits, obtaining appropriate laboratory studies, and adjusting medication management therapy per patient's need, in addition to those roles spelled out in the clinic policy, procedures, and drug management protocols. I understand that the service provided by the [facility] is voluntary and have informed patient that they can refuse the service at their discretion. I am aware that the [facility] will provide me with a copy of the patient encounter via my [employer]. I authorize the [facility] to carry out these activities on my behalf. I consider this program to be a necessary part of the patient's medical care. 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 right-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) Take 1 [...] mRNA, LNP-s, No Pre serve, 2-Dose Series (WiiiWaaa) 02/02/2021,06/14/2020,05/24/2020 COVID-19, LNP-s, No Preserve , Ellis-sucrose, [...] Laura CRNP [address] [place] [address] 01/20/20 [place] [address] [place] [address] 01/20/20 Surgery Surgery [place] Ho MD [address] [place] [address] TRANSPERINEAL PLACEMENTBIODEGRADABLE MATERIAL, TOI-PROSTATIC 01/27/20 23 Appointment Radiology 01/27/20 Documentation Radiation Oncology [facility] [address] [facility] [place] [address] 01/27/20 23 Nurse Only Radiation Oncology Ctr, Nurse Rad/Onc Cancer [address] [facility] [place] [address] 02/22/20 23 Office Visit Gastroenterology Kaity Comer DO [address] [place] [address] 04/13/19 24 Office Visit [facility]phrology Luz Marina De Leon [facility] [address] 05/09/[address] Davis MD [address] [place] [address] 05/09/[address] Davis MD [address] [place] [address] ESOPHAGOGASTRODUODENOSCOPY (EGD), FLEXIBLE, TRANSORAL, DIAGNOSTIC Scheduled Procedures [...] Type Priority Associated Diagnoses Orde r Schedule PHARMACIST MEDS THERAPY MGMT REFERRAL OP Referral Within 10 days (routine) HTN, goal below 130/80 Ordered: 12/28/2022 Health Maintenance Due Date Last Done Comments [...] Additional history exists CKD HGB USE SMARTSET 24647 10/08/202310/07, 08/16/2022, 08/16/2022, Additional history exists CKD PHOS USE SMARTSET 65495 10/08/202309/25, 08/17/2021, 03/06/2020, Additional history exists Lipid [...] this encounter Medical Devices Implanted Type Area Academic Support Director Device Identifier Shelf Expiration Date Model / Serial / Lot Lens 19.0 [id number] - [id number] - [id number] Implanted:Qty: 1 on 08/09/2016 by Madi Frederick MD at OR [facility] Right: Eye KIMMIE : SURGICAL 2018 [id number] / [id number] / documented as of this encounter [...] and were consensually agreed upon. Care Teams Water Resource Engineering Specialist Relationship Specialty Start Date End Date Jerzy Glez MD [address] [place], [place] [id number] PCP - General 12/30/99 documented as of this encounter
--- OUTSIDE RECORDS SUMMARY | 2023-02-05 13:18 | External Medical Summary | Summary of Care ---
Author Name Unknown Organization [facility] Address [address] [facility] [place] [address] Phone [phone] Care Team Providers Care Visitor Service Assistant Name Role Phone Jerzy Glez MD Primary Care Provider [phone] Encounter Details Date Type Department Care Team Description 12/21/2022 Telemedicine Urology Tomasa Huerta [address] [place] [address] Jackson Rosenberg Jr., MD [address] [place] [address] History of prostate cancer* Allergies No known active allergiesdocumented as of [...] MONROE MISCIndications:DM type 2, not at goal ([facility]),Type 2 diabetes mellitus with hemoglobin A1c goal of less than 8.0% ([facility]) Use to test blood sugar once daily- dx E11.9 1 Each 5 01/31/2019 Active Metoprolol Succinate ER 25 MG Oral Tablet Extended Release 24 Hour (toPROL XL)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 Patient was then informed that this was a telephone call only visit. The patient agreed to participate. Visit Disposition: Routine follow-up Total call duration was 6 minutes. He has newly diagnosed prostate cancer which hopefully has not metastasized. We will get a bone scan and MRI to assess for more advanced disease. We also will get a consult with RT. Component Final Diagnosis Prostate Biopsy Part Location Core # Core (cm) Diagnosis [employer] PN inv % GAMING DEPARTMENT HEAD A Right base 1 1.6 Prostatic adenocarcinoma [...] No 60% CORES with CARCINOMA = 6/6 His PSA was 5.88 and his prostate was uniformly firm. Bone scan IMPRESSION No suspicious osseous uptake. MRI IMPRESSION 1. Diffuse heterogeneous T2 hypointense signal and restricted diffusion in the peripheral zone. Specifically, there is a 1.5 cm lesion in the right apex with subtle contour bulge. This rises concern for extracapsular extension given subtle contour bulge and also the degree of tumor capsule contact.Findings compatible with known path proven prostate malignancy. No involvement of the neurovascularbundles. No lymphadenopathy. He is trying cyber Knife in [place] and not hormone therapy. We will see him 6 month after completion of treatment. documented in this encounter Plan of Treatment Upcoming Encounters Date Type Specialty Care Team Description 12/22/2022 Immunization Ancillary Protivin, Flu Shot Clinic [address] [facility] [place] [address] 02/21/2023 Office Visit Gastroenterology Kaity Comer DO [address] [place] [address] 04/13/2023 Office Visit Nephrology Luz Marina De Leon PA-C [address] [facility] [address] Scheduled Orders Name Type Priority Associated Diagnoses Orde r Schedule PSA Lab Routine History of prostate cancer Expected: 08/10/2023 (Approximate), Expires: 12/22/2023 Scheduled Procedures Name Priority Associated Diagnoses Date/Ti [...] Additional history exists CKD HGB USE SMARTSET 21135 10/08/202310/07, 08/16/2022, 08/16/2022, Additional history exists CKD PHOS USE SMARTSET 96916 10/08/202309/25, 08/17/2021, 03/06/2020, Additional history exists Lipid [...] this encounter Medical Devices Implanted Type Area Special Forces Specialist Device Identifier Shelf Expiration Date Model / Serial / Lot Lens 19.0 Cz70bd - [id number] - [id number] Implanted:Qty: 1 on 08/09/2016 by Madi Frederick MD at OR [facility] Right: Eye KIMMIE : SURGICAL 2018 [id number] / [id number] / documented as of this encounter Visit Diagnoses Diagnosis History of prostate cancer- Primary Personal history of malignant neoplasm of prostate documented in this encounter Advance Directives Latest Code Status on File Code Status Date Activated Date Inactivated Comments Full Code 08/09/2016 2:37 PM 08/09/2016 7:17 PM This order reflects the patients wishes and were consensually agreed upon. Care Teams Visitor Service Assistant Relationship Specialty Start Date End Date Jerzy Glez MD [address] [place] [address] PCP - General 12/30/99 documented as of this encounter
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
--- OUTSIDE RECORDS SUMMARY | 2023-02-05 13:18 | External Medical Summary | Summary of Care ---
Author Name Unknown Organization [facility] Address [address] [place] [address] Phone [phone] Care Team Providers Care Embedded Software Engineer Name Role Phone Jerzy Glez MD Primary Care Provider [phone] Encounter Details Date Type Department Care Team Description 12/22/2022 Immunization Ancillary Department, [facility] [address] [place] [address] [facility] [address] [place] [address] Arrived Allergies No known active allergiesdocumented as of this encounter (statuses as of 12/22/2022) Medications Medication Sig Dispensed Refills Start Date [...] FINE MISCIndications:DM type 2, not at goal ([facility]),Type 2 diabetes mellitus with hemoglobin A1c goal of less than 8.0% (HCC) Use to test blood sugar once daily- dx E11.9 1 Each 5 01/31/2019 Active Metoprolol Succinate ER 25 MG Oral Tablet Extended Release 24 Hour (toPROL XL)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-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) Take 1 [...] (Glucophage)Indicat ions:DM type 2, not at goal ([facility]) TAKE 1 TABLET BY MOUTH 2 TIMES [...] as of this encounter (statuses as of 12/22/2022) Active Problems Problem Noted Date Cirrhosis of [...] as of this encounter (statuses as of 12/22/2022) Resolved Problems Problem Noted Date Resolved Date [...] as of this encounter (statuses as of 12/22/2022) Immunizations Name Administration Dates Next Due COVID-19 mRNA, LNP-s, No Pre serve, 2-Dose Series (FilterSure) 02/02/2021,06/14/2020,05/24/2020 COVID-19, LNP-s, No Preserve , Ellis-sucrose, [...] Team Description 02/21/2023 Office Visit Gastroenterology Kaity Comer, [address] [place] [address] 04/13/2023 Office Visit Nephrology Luz Marina De Leon PA-C [address] [place] [address] Scheduled Procedures Name Priority Associated Diagnoses Date/Ti [...] exists Influenza Vaccine (FLU shot) (#1) 2022 12/22/2022, 01/20/2022, 12/19/2020, Additional history exists GFR 04/09/2023 10/07/2022, 07/27, 07/26/2022, Additional history exists Albumin/Creatinine Ratio 10/08/2023 023, 08/17/2021, 07/15/2020, Additional history exists CKD HGB USE SMARTSET 39379 10/08/202310/07, 08/16/2022, 08/16/2022, Additional history exists CKD PHOS USE SMARTSET 45856 10/08/202309/25, 08/17/2021, 03/06/2020, Additional history exists Lipid [...] this encounter Medical Devices Implanted Type Area Watch Inspector Device Identifier Shelf Expiration Date Model / Serial / Lot Lens 19.0 [id number] - [id number] - [id number] Implanted:Qty: 1 on 08/09/2016 by Madi Frederick MD at [facility] Right: Eye KIMMIE : SURGICAL 2018 [id number] / [id number] / documented as of this encounter Advance Directives Latest Code Status on File Code Status Date Activated Date Inactivated Comments Full Code 08/09/2016 2:37 PM 08/09/2016 7:17 PM This order reflects the patients wishes and were consensually agreed upon. Care Teams Embedded Software Engineer Relationship Specialty Start Date End Date Jerzy Glez MD [address] [place] [address] PCP - General 12/30/99 documented as of this encounter
--- OUTSIDE RECORDS SUMMARY | 2023-02-05 13:18 | External Medical Summary ---
Author Name Unknown Address Unknown Organization K01:[facility] [place] [address] [place] [address] Laboratory Report Ordering Provider Test Date Status FRANCIA CHAVARRIA 01/04/2023 15:11:37 Final Observation Date Value Abnormality Reference (Units ) Status BUN 01/04/2023 15:11:37 19 6-20 (mg/dL) Final Creatinine 01/04/2023 15:11:37 1.3 Above high normal 0.6-1.2 (mg/dL) Final Glomerular filtration rate/1.73 sq M.predicted [Volume Rate/Area] in Serum, Plasma or Blood by Creatinine-based formula (CKD-EPI) 01/04/2023 15:11:37 60 >=60 (mL/min) Final eGFR is calculated based on the CKD-EPI 2020 equation SODIUM 01/04/2023 15:11:37 139 135-146 (m mol/L) Final Potassium 01/04/2023 15:11:37 5.0 3.5-5.1 (m mol/L) Final Cl 01/04/2023 15:11:37 103 98-107 (mm ol/L) Final CO2 01/04/2023 15:11:37 27 22-32 (mmo l/L) Final Anion gap 01/04/2023 15:11:37 9 7-15 (mmol /L) Final Glucose 01/04/2023 15:11:37 141 Above high normal 70 -120 (mg/dL) Final Calcium 01/04/2023 15:11:37 9.1 8.4-10.2 ( mg/dL) Final Performing Location [facility] [place] [address] [place] [address]
--- OUTSIDE RECORDS SUMMARY | 2023-02-05 13:18 | External Medical Summary | Summary of Care ---
Author Name Unknown Organization [facility] Address [address] [place] [address] Phone [phone] Care Team Providers Care Seaman Officer Name Role Phone Jerzy Glez MD Primary Care Provider [phone] Reason for Visit * Reason Onset Date Comments Surgery 12/23/2022 Encounter Details Date Type Department Care Team Description 12/23/2022 Telephone Urology [facility] [address] [place] [address] Gino Sharp MD [address] [place] [address] Surgery Allergies No known active allergiesdocumented as of this encounter (statuses as of 12/23/2022) Medications Medication Sig Dispensed Refills Start Date [...] Oral Tablet Extended Release 24 Hour (toPROL XL)Indications:Public Health Administrator ede right-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) Take 1 [...] as of this encounter (statuses as of 12/23/2022) Active Problems Problem Noted Date Cirrhosis of [...] as of this encounter (statuses as of 12/23/2022) Resolved Problems Problem Noted Date Resolved Date [...] as of this encounter (statuses as of 12/23/2022) Immunizations Name Administration Dates Next Due COVID-19 [...] encounter Miscellaneous Notes * Telephone Encounter - Jaci Briggs RN - 12/23/2022 1:46 PM EDT LVM for patient to call to schedule surgery documented in this encounter Plan of Treatment Upcoming Encounters Date Type Specialty Care Team Description 02/21/2023 Office Visit Gastroenterology Kaity Comer DO [address] [place] [address] 04/13/2023 Office Visit Nephrology Luz Marina De Leon PA-C [address] [place] [address] Scheduled Procedures Name Priority Associated Diagnoses Date/Ti [...] Additional history exists CKD HGB USE SMARTSET 18040 10/08/202310/07, 08/16/2022, 08/16/2022, Additional history exists CKD PHOS USE SMARTSET 80223 10/08/202309/25, 08/17/2021, 03/06/2020, Additional history exists Lipid [...] this encounter Medical Devices Implanted Type Area Sewer And Drain Technician Device Identifier Shelf Expiration Date Model / Serial / Lot Lens 19.0 Cz70bd - [id number] - [id number] Implanted:Qty: 1 on 08/09/2016 by Madi Frederick MD at [facility] Right: Eye KIMMIE : SURGICAL 2018 [id number] / [id number] / documented as of this encounter Advance Directives Latest Code Status on File Code Status Date Activated Date Inactivated Comments Full Code 08/09/2016 2:37 PM 08/09/2016 7:17 PM This order reflects the patients wishes and were consensually agreed upon. Care Teams Seaman Officer Relationship Specialty Start Date End Date Jerzy Glez MD [address] [place] [address] PCP - General 12/30/99 documented as of this encounter
--- OUTSIDE RECORDS SUMMARY | 2023-02-05 13:18 | External Medical Summary | Summary of Care ---
Author Name Unknown Organization [facility] Address [address] [place] [address] Phone [phone] Care Team Providers Care Saxophone Teacher Name Role Phone Sabrina Glez MD Primary Care Provider [phone] Reason for Referral * Medication Prior Authorization - Pending Review Specialty Diagnoses / Procedures Referred By Contluan t Referred To Contact Diagnoses Other closed fracture of thoracic vertebra, unspecified thoracic vertebral level, sequela Sabrina Glez MD [address] [place] [address] Referral ID Status Reason Start Date Expiration Date V isits Requested Visits Authorized [id number] Pending Review 999 999 Reason for Visit * Reason Onset Date Comments Medication Refill 12/27/2022 Encounter Details Date Type Department Care Team Description 12/27/2022 Refill [facility] [address] [place] [address] Sabrina Glez MD [address] [place] [address] Encounter for long-term (current) use of other medications*; Other closed fracture of thoracic vertebra, unspecified thoracic vertebral level, sequela Allergies No known active allergiesdocumented as of this encounter (statuses as of 12/28/2022) Medications Medication Sig Dispensed Refills Start Date End Date Status Blood Glucose Monitoring Suppl (sailsquare) w/Device KITIndications:DM type 2, not at goal (HCC),Type 2 diabetes mellitus with hemoglobin A1c goal of less than 8.0% (HCC) Use to check sugar daily E11.9 1 Kit 0 01/31/2019 Active Glucose Blood (sailsquare) STRPIndications:D M type 2, not at goal ([facility]),Type 2 diabetes mellitus with hemoglobin A1c goal of less than 8.0% ([facility]) Use up check sugar daily E11.9 100 Strip 11 01/31/2019 Active B-ObviousTOUCH DELDIANE LANCETS FINE MISCIndications:D M type 2, not at goal ([facility]),Type 2 diabetes mellitus with hemoglobin A1c goal of less than 8.0% ([facility]) Use to test blood sugar once daily- dx E11.9 1 Each 5 01/31/2019 Active Metoprolol Succinate ER 25 MG Oral Tablet Extended Release 24 Hour (toPROL XL)Indications: ronic right-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) Take 1 [...] (Glucophage)Indic ations:DM type 2, not at goal (HCC) TAKE [...] TUESDAY ONLY. 15 Tablet 3 12/21/2022 Active oxyCODONE HCl 10 MG Oral Tablet (Roxicodone)Indic ations:Other closed fracture of thoracic vertebra, unspecified thoracic vertebral level, sequela Take 1 Tablet by mouth in the morning and 1 Tablet at noon and 1 Tablet in the evening and 1 Tablet before bedtime. 120 Tablet 0 12/28/2022 Active oxyCODONE HCl 10 MG Oral Tablet (Roxicodone)Indic ations:Other closed fracture of thoracic vertebra, unspecified thoracic vertebral level, sequela Take 1 Tablet by mouth in the morning and 1 Tablet at noon and 1 Tablet in the evening and 1 Tablet before bedtime. 120 Tablet 0 11/29/2022 3 Discontinue d(Refill) documented as of this [...] mRNA, LNP-s, No Pre serve, 2-Dose Series (Wedivite) 02/02/2021,06/14/2020,05/24/2020 COVID-19, LNP-s, No Preserve , Ellis-sucrose, Ages 12+ (Pfizer) 10/08/2021 Pneumococcal Conjugate Vacc, 13 Valent (Prevnar) 03/19/2015 Pneumococcal Polysaccharide PPV23 (Pneumovax) 08/09/2013 SEASONAL INFLUENZA, PF, 6 M & Above, IM , (FLULAVAL or FLUZONE) 12/08/2019 Seasonal Influenza, Quadriva lent Hd (Fluzone Hd) 12/22/2022,12/19/2020 Seasonal Influenza, Quadriva lent, No Preserve, IM 01/09/2018,01/22/2016,03/06/2015 01/21/2017 Seasonal Influenza, Split, I IV3, With Preserve, Inj 02/06/2013,02/10/2012,01/26/2011,11/0 07/2009,01/30/2009,02/08/2006 Seasonal Influenza, Trivalen t, Adjuvanted, 65+ yrs [...] encounter Miscellaneous Notes * Telephone Encounter - Sabrina Glez MD - 12/28/2022 7:51 PM EDTSigned Prescriptions: Disp Refills oxyCODONE HCl 10 MG Oral Tablet (Roxicodon*120 Ta*0 Sig: Take 1 Tablet by mouth in the morning and 1 Tablet at noon and 1 Tablet in the evening and 1 Tablet before bedtime. Authorizing Provider: SABRINA GLEZ * Telephone Encounter - Louis Grewal [facility] - 12/28/2022 3:45 PM EDTPending Prescriptions: Disp Refills oxyCODONE HCl 10 MG Oral Tablet (Roxicodon*120 Ta*0 Sig: Take 1 Tablet by mouth in the morning and 1 Tablet at noon and 1 Tablet in the evening and 1 Tablet before bedtime. * Telephone Encounter - Louis Grewal [facility] - 12/28/2022 3:42 PM EDT I have reviewed the patients controlled substance dispensing history in the Prescription Drug Monitoring Program in compliance with the [facility] regulations before prescribing a controlled substance. PDMP checked on 12/28/2022. Pending Prescriptions: Disp Refills oxyCODONE HCl 10 MG Oral Tablet (Roxicodo*120 Ta*0 Sig: Take 1 Tablet by mouth in the morning and 1 Tablet at noon and 1 Tablet in the evening and 1 Tablet before bedtime. Last Visit: 07/26/2022 (in office), 04/18/2020 (telemedicine) Next Visit: Visit date not found Date medication was last filled: 11/29 Date medication is due for refill: 12/28 Pharmacy: [id number] Is this request for a controlled substance? [...] COMMENT SEE COMMENT DETECTION LIMIT SEE COMMENT Please approve if appropriate. Thanks, Wilber Grewal, ChristinaD Clinical Pharmacist [facility] ([facility]) (Formerly [facility]) [phone] 12/28/2022 3:43 PM documented in this encounter Plan of Treatment Upcoming Encounters Date Type Specialty Care Team Description 01/05/20 Office Visit Cardiology Sandra Laura CRNP [address] [place] [address] 01/20/20 [place] [address] [place] [address] 01/20/20 [place] [address] [place] [address] TRANSPERINEAL PLACEMENTBIODEGRADABLE MATERIAL, TOI-PROSTATIC 01/27/20 Appointment Radiology 01/27/20 Documentation Radiation Oncology Jackson Munoz MD [address] [place] [address] 01/27/20 23 Nurse Only Radiation Oncology Ctr, Nurse Rad/Onc Cancer [address] [place] [address] 02/22/20 23 Office Visit Gastroenterology Kaity Comer DO [address] [place] [address] 04/13/19 24 Office Visit Nephrology Luz Marina De Leon PA-C [address] [facility] [place] [address] 05/09/[address] Davis MD [address] [place], [place] [address] 05/09/[address] Davis MD [address] [place] [address] ESOPHAGOGASTRODUODENOSCOPY (EGD), FLEXIBLE, TRANSORAL, DIAGNOSTIC Scheduled Orders Name Type Priority Associated Diagnoses Orde r Schedule HEMOGLOBIN A1C Lab Routine Encounter for long-term (current) use of other medications Expected: 12/28/2022 (Approximate), Expires: 12/29/2023 VITAMIN B12 Lab Routine Encounter for long-term (current) use of other medications Expected: 12/28/2022 (Approximate), Expires: 12/29/2023 Scheduled Procedures Name Priority Associated Diagnoses Date/Ti [...] Additional history exists CKD HGB USE SMARTSET 35747 10/08/202310/07, 08/16/2022, 08/16/2022, Additional history exists CKD PHOS USE SMARTSET 16791 10/08/202309/25, 08/17/2021, 03/06/2020, Additional history exists Lipid [...] this encounter Medical Devices Implanted Type Area Roping Machine Tender Device Identifier Shelf Expiration Date Model / Serial / Lot Lens 19.0 [id number] - [id number] - [id number] Implanted:Qty: 1 on 08/09/2016 by Madi Frederick MD at OR [facility] Right: Eye KIMMIE : SURGICAL 2018 [id number] / [id number] / documented as of this encounter Visit Diagnoses Diagnosis Encounter for long-term (current) use of other medications- Primary Other closed fracture of thoracic vertebra, unspecified thoracic vertebral level, sequela Prostate cancer (HCC) Malignant neoplasm of prostate Intestinal metaplasia of stomach documented in this encounter Advance Directives Latest Code Status on File Code Status Date Activated Date Inactivated Comments Full Code 08/09/2016 2:37 PM 08/09/2016 7:17 PM This order reflects the patients wishes and were consensually agreed upon. Care Teams Saxophone Teacher Relationship Specialty Start Date End Date Sabrina Glez MD [address] [place] [address] PCP - General 12/30/99 documented as of this encounter
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
--- OUTSIDE RECORDS SUMMARY | 2023-02-05 13:19 | External Medical Summary | Summary of Care ---
Author Name Unknown Organization [facility] Address [address] [place] [address] Phone [phone] Care Team Providers Care Deputy Of Counter Intelligence Name Role Phone Sabrina Glez MD Primary Care Provider [phone] Reason for Visit * Reason Onset Date Comments Medication Refill 11/27/2022 Encounter Details Date Type Department Care Team Description 11/27/2022 Refill [facility] [address] [place] [id number] Sabrina Glez MD [address] [place] [address] Other closed fracture of thoracic vertebra, unspecified thoracic vertebral level, sequela Allergies No known active allergiesdocumented as of this encounter (statuses as of 11/29/2022) Medications Medication Sig Dispensed Refills Start Date End Date Status Blood Glucose Monitoring Suppl (ONETOUCH VERIO) w/Device KITIndications:DM type 2, not at goal ([facility]),Type 2 diabetes mellitus with hemoglobin A1c goal of less than 8.0% ([facility]) Use to check sugar daily E11.9 1 Kit 0 01/31/2019 Active Glucose Blood (ONETOUCH VERIO) STRPIndications:DM type 2, not at goal ([facility]),Type 2 diabetes mellitus with hemoglobin A1c goal of less than 8.0% ([facility]) Use up check sugar daily E11.9 100 Strip 11 01/31/2019 Active CHIKA ROGERS FINE MISCIndications:DM type 2, not at goal (HCC),Type 2 diabetes mellitus with hemoglobin A1c goal of less than 8.0% ([facility]) Use to test blood sugar once [...] (Glucophage)Indica tions:DM type 2, not at goal ([facility]) TAKE 1 TABLET BY MOUTH 2 [...] before bedtime. 120 Tablet 0 11/29/2022 Active oxyCODONE HCl 10 MG Oral Tablet (Roxicodone)Indica tions:Other closed fracture of thoracic vertebra, unspecified thoracic vertebral level, sequela Take 1 Tablet by mouth in the morning and 1 Tablet at noon and 1 Tablet in the evening and 1 Tablet before bedtime. 120 Tablet 0 10/30/2022 11/27/2022 Discontinued (Refill) documented as of this encounter (statuses as of 11/29/2022) Active Problems Problem Noted Date Cirrhosis of [...] as of this encounter (statuses as of 11/29/2022) Resolved Problems Problem Noted Date Resolved Date [...] as of this encounter (statuses as of 11/29/2022) Immunizations Name Administration Dates Next Due COVID-19 mRNA, LNP-s, No Pre serve, 2-Dose Series ([employer]) 02/02/2021,06/14/2020,05/24/2020 COVID-19, LNP-s, No Preserve , Ellis-sucrose, [...] Telephone Encounter - Sabrina Glez MD - 11/29/2022 3:11 PM EDTSigned Prescriptions: Disp Refills oxyCODONE HCl 10 MG Oral Tablet (Roxicodon*120 Ta*0 Sig: Take 1 Tablet by mouth in the morning and 1 Tablet at noon and 1 Tablet in the evening and 1 Tablet before bedtime. Authorizing Provider: SABRINA GLEZ * Telephone Encounter - Chelly Samuel [facility] - 11/29/2022 2:30 PM EDT Pending Prescriptions: Disp Refills oxyCODONE HCl 10 MG Oral Tablet (Roxicodon*120 Ta*0 Sig: Take 1 Tablet by mouth in the morning and 1 Tablet at noon and 1 Tablet in the evening and 1 Tablet before bedtime. * Telephone Encounter - Chelly Carolina Lizzie [facility] - 11/29/2022 2:24 PM EDT I have reviewed the patients controlled substance dispensing history in the Prescription Drug Monitoring Program in compliance with the [facility] regulations before prescribing a controlled substance. PDMP checked on 11/29/2022. Pending Prescriptions: Disp Refills oxyCODONE HCl 10 MG Oral Tablet (Roxicodo*120 Ta*0 Sig: Take 1 Tablet by mouth in the morning and 1 Tablet at noon and 1 Tablet in the evening and 1 Tablet before bedtime. Last Visit: 07/26/2022 (in office), 04/18/2020 (telemedicine) Next Visit: Visit date not found Date medication was last filled: 10/30/22 Date medication is due for refill: 11/28/22 Pharmacy: [id number] [address] [facility] Is this request for a controlled substance? [...] LIMIT SEE COMMENT Please approve if appropriate. Thank you, Christina GarciaD, YASH Clinical Pharmacist [facility] ([facility]) (formerly Telepharmacy) 11/29/22 2:24 PM [phone] documented in this encounter Plan of Treatment Upcoming Encounters Date Type Specialty Care Team Description 12/02/2022 Office Visit Radiation Oncology Gera Munoz MD [address] [place] [address] [place] [id number] 12/08/2022 Imaging Radiology 12/14/2022 Office Visit Dermatology Darby Girrad PA-C [address] [place] [address] 12/16/2022 Imaging Radiology 12/16/2022 Imaging Radiology 12/21/2022 Telemedicine Urology Jackson Rosenberg Jr., MD [address] [place] [address] 12/31/2022 Office Visit Cardiology Mary Jane Hawkins PA-C [address] [place] [address] 02/21/2023 Office Visit Gastroenterology Kaity Comer DO [address] [place] [address] 04/13/2023 Office Visit Nephrology Luz Marina De Leon PA-C [address] [facility] [place], [place] [address] Scheduled Procedures Name Priority Associated Diagnoses Date/Ti [...] Additional history exists CKD HGB USE SMARTSET 51807 10/08/202310/07, 08/16/2022, 08/16/2022, Additional history exists CKD PHOS USE SMARTSET 66752 10/08/202309/25, 08/17/2021, 03/06/2020, Additional history exists Lipid [...] this encounter Medical Devices Implanted Type Area Accounts Payable Payroll Coordinator Device Identifier Shelf Expiration Date Model / Serial / Lot Lens 19.0 [id number] - [id number] - [id number] Implanted:Qty: 1 on 08/09/2016 by Madi Frederick MD at OR [facility] Right: Eye KIMMIE : SURGICAL 2018 [id number] / [id number] / documented as of this encounter Visit Diagnoses Diagnosis Other closed fracture of thoracic vertebra, unspecified thoracic vertebral level, sequela documented in this encounter Advance Directives Latest Code Status on File Code Status Date Activated Date Inactivated Comments Full Code 08/09/2016 2:37 PM 08/09/2016 7:17 PM This order reflects the patients wishes and were consensually agreed upon. Care Teams Deputy Of Counter Intelligence Relationship Specialty Start Date End Date Sabrina Glez MD [address] [place] [address] PCP - General 12/30/99 documented as of this encounter
--- OUTSIDE RECORDS SUMMARY | 2023-02-05 13:19 | External Medical Summary | Summary of Care ---
Author Name Unknown Organization [facility] Address [address] [place] [address] Phone [phone] Care Team Providers Care Building Drafting Officer Name Role Phone Jerzy Glez MD Primary Care Provider Reason for Visit * Reason Comments Urology Procedure Prostate biopsy Encounter Details Date Type Department Care Team Description 11/15/2022 Office Visit Urology Tomasa Huerta [address] [place] [address] Jackson Rosenberg Jr., MD [address] [place] [address] Elevated prostate specific antigen (PSA)* Allergies No known active allergiesdocumented as of this encounter (statuses as of 11/15/2022) Medications Medication Sig Dispensed Refills Start Date [...] Oral Tablet Extended Release 24 Hour (toPROL XL)Indications:Direct Response Consultant ede right-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) Take 1 Tablet by mouth in the morning. 90 Tablet 3 04/08/2022 Active Losartan Potassium 50 MG Oral Tablet (Cozaar) Take 1 Tablet by mouth in the morning. 0 Active LORazepam 0.5 MG Oral Tablet (Ativan)Indications :Anxiety 2 tabs 45 minutes before MRI. Repeat 1 tab 15 minutes before MRI if needed 3 Tablet 0 07/20/2022 Active Additional Information Patient not taking.Reported on 08/16/2022 traZODone HCl 100 MG Oral Tablet (Desyrel)Indication [...] Active metFORMIN HCl 500 MG Oral Tablet (Glucophage)Indicat [...] before bedtime. 120 Tablet 0 10/30/2022 Active documented as of this encounter (statuses as of 11/15/2022) Active Problems Problem Noted Date Cirrhosis of [...] as of this encounter (statuses as of 11/15/2022) Resolved Problems Problem Noted Date Resolved Date [...] as of this encounter (statuses as of 11/15/2022) Immunizations Name Administration Dates Next Due COVID-19 mRNA, LNP-s, No Pre serve, 2-Dose Series (I-Stand) 02/02/2021,06/14/2020,05/24/2020 COVID-19, LNP-s, No Preserve , Ellis-sucrose, [...] Notes * Jackson Rosenberg Jr., MD - 11/15/2022 9:20 AM EDT Pt. presents for TRUS and Prostate needle biopsy due to Elevated PSA. PSA Results: Lab Results Component Value Date/Time [...] AM PSA SCREENING 0.90 04/21/2009 03:37 PM His JOHN also is uniformly firm. He understands the general information, alternatives and risks of this procedure. He took the oral antibiotic. A surgical time out was taken. The Ultrasound probe was placed per rectum to view and measure the prostate. Local anesthetic 12ml of 1% lidocaine was administered to the four peripheral quadrants of the prostate. Please see the below TRUS interpretation report for details. Trans Rectal Ultrasound Interpretation Report: A 5 MegaHertz end fire rectal probe was placed to perform ultrasound imaging of the prostate. The prostate is measured in both axial and longitudinal planes. (approximate total volume 20 cubic centimeters) There is a median adenoma. Normal seminal vesicles bilaterally without cystic change or solid mass.The peripheral zone has bilateral diffuse hypoechoic lesions. There are no anechoic lesions. The prostate margins are smooth and uniform. The rectal wall is thin and unremarkable. The visualized bladder base shows a bladder wall of normal thickness. There is a small amount of residual urine present. Prostate needle biopsy: Ultrasound guidance was used for the placement of the needle to perform theprostate biopsies. Using transrectal real time ultrasound guidance, 12 core biopsies of the prostate were obtained without apparent bleeding. Mild discomfort with placement of probe. Jackson Rosenberg Jr, MD 11/15/2022 9:20 AM documented in this encounter Nursing Notes * Taisha Armstrong LPN - 11/15/2022 9:19 AM EDT Prostate biopsy. ABX started yesterday. Consent signed. documented in this encounter Miscellaneous Notes * Addendum Note - Taisha Armstrong LPN - 11/15/2022 9:40 AM EDTAddended by: TAISHA ARMSTRONG on: 11/15/2022 09:40 AM Modules accepted: Orders documented in this encounter Plan of Treatment Upcoming Encounters Date Type Specialty Care Team Description 11/22/2022 Office Visit Urology Shakira Arriaga, Jackson Pena MD [address] [place] [address] 12/14/2022 Office Visit Dermatology Darby Girard PA-C [address] [place] [address] 12/31/2022 Office Visit Cardiology Mary Jane Hawkins PA-C [address] [place] [address] 02/21/2023 Office Visit Gastroenterology Kaity Comer DO [address] [place] [address] 04/13/2023 Office Visit NephLuz Marina Britt PA-C [address] [facility] [place], [place] [address] Pending Results Name Type Priority Associated Diagnoses Date /Time SURGICAL PATHOLOGY Pathology Routine Elevated prostate specific antigen (PSA) 11/15/2022 9:40 AM EDT Scheduled Procedures Name Priority Associated Diagnoses [...] Additional history exists CKD HGB USE SMARTSET 80707 10/08/202310/07, 08/16/2022, 08/16/2022, Additional history exists CKD PHOS USE SMARTSET 24081 10/08/202309/25, 08/17/2021, 03/06/2020, Additional history exists Lipid [...] this encounter Medical Devices Implanted Type Area Digital Specialist Device Identifier Shelf Expiration Date Model / Serial / Lot Lens 19.0 [id number] - [id number] - [id number] Implanted:Qty: 1 on 08/09/2016 by Madi Frederick MD at OR [facility] Right: Eye KIMMIE : SURGICAL 2018 [id number] / [id number] / documented as of this encounter Visit Diagnoses Diagnosis Elevated prostate specific antigen (PSA)- Primary documented in this encounter Advance Directives Latest Code Status on File Code Status Date Activated Date Inactivated Comments Full Code 08/09/2016 2:37 PM 08/09/2016 7:17 PM This order reflects the patients wishes and were consensually agreed upon. Care Teams Building Drafting Officer Relationship Specialty Start Date End Date Jerzy Glez MD [address] [place] [address] PCP - General 12/30/99 documented as of this encounter
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
--- OUTSIDE RECORDS SUMMARY | 2023-02-05 13:19 | External Medical Summary | Summary of Care ---
Author Name Unknown Organization [facility] Address [address] [place] [place] [facility] [place] [address] Phone [phone] Care Team Providers Care Mobile Application Tester Name Role Phone Jerzy Glez MD Primary Care Provider [phone] Reason for Visit * Reason Onset Date Comments FYI 11/24/2022 Encounter Details Date Type Department Care Team Description 11/24/2022 Telephone Urology Tomasa Huerta [address] [place] [id number] Jackson Rosenberg Jr., MD [address] [place] [id number] FY Allergies No known active allergiesdocumented as of this encounter (statuses as of 11/24/2022) Medications Medication Sig Dispensed Refills Start Date [...] 09/01/2022 Active Furosemide 20 MG Oral Tablet (Lasix)Indications:Ch ronic right-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) TAKE HALF A TABLET BY MOUTH ONCE A DAY ON TUESDAY, TUESDAY, AND TUESDAY ONLY. 14 Tablet 5 09/06/2022 Active Ciprofloxacin HCl 500 MG Oral Tablet (Cipro) Take 1 Tablet by mouth in the morning and 1 Tablet before bedtime. Start the day before the biopsy. 6 Tablet 0 09/22/2022 Active metFORMIN HCl 500 MG Oral Tablet (Glucophage)Indicatio ns:DM type 2, not at goal (HCC) TAKE [...] Active Losartan Potassium 25 MG Oral Tablet (Cozaar)Indications:H TN, goal below 130/80 Take 1 Tablet by mouth in the morning. 30 Tablet 5 11/19/2022 Active LORazepam 0.5 MG Oral Tablet (Ativan)Indications:A nxiety 2 tabs 45 minutes before MRI. Repeat 1 tab 15 minutes before MRI if needed 3 Tablet 0 11/22/2022 Active documented as of this encounter (statuses as of 11/24/2022) Active Problems Problem Noted Date Cirrhosis of [...] as of this encounter (statuses as of 11/24/2022) Resolved Problems Problem Noted Date Resolved Date [...] as of this encounter (statuses as of 11/24/2022) Immunizations Name Administration Dates Next Due COVID-19 mRNA, LNP-s, No Pre serve, 2-Dose Series ([employer]) 02/02/2021,06/14/2020,05/24/2020 COVID-19, LNP-s, No Preserve , Ellis-sucrose, [...] encounter Miscellaneous Notes * Telephone Encounter - KAVITHA Munoz - 11/24/2022 11:21 AM EDT Patients daughter called back they want to cancel the 12-[email or web address] I called andid so, we moved the tele med appt up as well. * Telephone Encounter - KAVITHA Russo - 11/24/2022 11:12 AM EDT Pt's daughter called in asking if there was a sooner facility for pt MRI. He is currently [facility]. I offered to call [facility] to see if sooner was available. Shalom was able to do 12/08. I scheduled it. Daughter is to talk to pt and and she will call back to let us know what appt they will keep. Please cancel whatever one that is not needed. documented in this encounter Plan of Treatment Upcoming Encounters Date Type Specialty Care Team Description 12/02/2022 Office Visit Radiation Oncology Gera Munoz MD [address] [place] [address] 12/08/2022 Imaging Radiology 12/14/2022 Office Visit Dermatology Darby Girard PA-C [address] [facility] [address] [place] [address] 12/16/2022 Imaging Radiology 12/16/2022 Imaging Radiology 12/21/2022 Telemedicine Urology Shakira Arriaga, Jackson Pena MD [address] [place] [address] 12/31/2022 Office Visit Cardiology Mary Jane Hawkins PA-C [address] [place] [address] 02/21/2023 Office Visit Gastroenterology Kaity Comer DO [address] [place] [address] 04/13/2023 Office Visit Nephrology Luz Marina De Leon [facility]C [address] [facility] [address] Scheduled Procedures Name Priority Associated Diagnoses Date/Ti [...] Additional history exists CKD HGB USE SMARTSET 30697 10/08/202310/07, 08/16/2022, 08/16/2022, Additional history exists CKD PHOS USE SMARTSET 59844 10/08/202309/25, 08/17/2021, 03/06/2020, Additional history exists Lipid [...] this encounter Medical Devices Implanted Type Area Assistant Farm Operations Manager Device Identifier Shelf Expiration Date Model / Serial / Lot Lens 19.0 Cz70bd - [id number] - [id number] Implanted:Qty: 1 on 08/09/2016 by Madi Frederick MD at OR [facility] Right: Eye KIMMIE : SURGICAL 2018 [id number] / [id number] / documented as of this encounter Advance Directives Latest Code Status on File Code Status Date Activated Date Inactivated Comments Full Code 08/09/2016 2:37 PM 08/09/2016 7:17 PM This order reflects the patients wishes and were consensually agreed upon. Care Teams Mobile Application Tester Relationship Specialty Start Date End Date Jerzy Glez MD [address] [place], [place] [id number] PCP - General 12/30/99 documented as of this encounter
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
--- OUTSIDE RECORDS SUMMARY | 2023-02-05 13:20 | External Medical Summary ---
Author Name Unknown Address Unknown Organization K01:[facility]ATORY [facility] - [address] [place] [address] Laboratory Report Ordering Provider Test Date Status ANN MARIE FIELDS 10/07/2022 16:12:58 Final Deficient: <20 ng/mL
Ins ufficient: 20-29 ng/mL
Recommended/Optimum:30-50 ng/mL

Vitamin D intoxication is rare. If suspicious of Vitamin D toxicity, evaluation of serum Calcium and PTH is recommended. Observation Date Value Abnormality Reference (Units ) Status 25-OH Vitamin D total 10/07/2022 16:12:58 42 >19 (ng/mL) Final Performing Location LABORATORY [facility] - [address] [place] [address]
--- OUTSIDE RECORDS SUMMARY | 2023-02-05 13:20 | External Medical Summary | Summary of Care ---
Author Name Unknown Organization [facility] Address [address] [place] [address] Phone [phone] Care Team Providers Care Cowlman Name Role Phone Jerzy Glez MD Primary Care Provider [phone] Reason for Visit * Reason Onset Date Comments Appointment 10/08/2022 Return in about 6 months (around 04/09/2023) for clinic visit w/ [place], clinic visit w/ . Check-out Comments: 10/22 [facility] [place] [facility] En[facility] Details Date Type Department Care Team Description 10/08/2022 Telephone Nephrology [address] [place] [address] [facility] [address] [facility] [address] App[facility]ment (Return in about 6 months (stephania... Allergies No known active allergiesdocumented as of this encounter (statuses as of 10/08/2022) Medications Medication Sig Dispensed Refills Start Date [...] Strip 11 01/31/2019 Active CHIKA RIVASYO MABEL MISCIndications:DM type 2, not at goal (HCC),Type 2 diabetes mellitus with hemoglobin A1c goal of less than 8.0% (HCC) Use to test blood sugar once daily- dx E11.9 1 Each 5 01/31/2019 Active Metoprolol Succinate ER 25 MG Oral Tablet Extended Release 24 Hour (toPROL XL)Indications:Slot Operations Manager ede right-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) Take 1 [...] Active Additional Information Patient not taking.Reported on 10/07/2022 metFORMIN HCl 500 MG Oral Tablet (Glucophage)Indicat [...] 1 Tablet before bedtime. 120 Tablet 0 09/27/2022 Active documented as of this encounter (statuses as of 10/08/2022) Active Problems Problem Noted Date Cirrhosis of [...] as of this encounter (statuses as of 10/08/2022) Resolved Problems Problem Noted Date Resolved Date [...] as of this encounter (statuses as of 10/08/2022) Immunizations Name Administration Dates Next Due COVID-19 mRNA, LNP-s, No Pre serve, 2-Dose Series (Pfizer) 02/02/2021,06/14/2020,05/24/2020 COVID-19, LNP-s, No Preserve , Ellis-sucrose, Ages 12+ (Pfizer) 10/08/2021 Pneumococcal Conjugate Vacc, 13 Valent (Prevnar) 03/19/2015 Pneumococcal Polysaccharide PPV23 (Pneumovax) 08/09/2013 Seasonal Influenza, Quadriva lent Hd (Fluzone Hd) 12/19/2020 Seasonal Influenza, Quadriva lent, No Preserve, 6 Mons & Above, IM 12/08/2019 Seasonal Influenza, Quadriva lent, No Preserve, IM [...] Miscellaneous Notes * Telephone Encounter - ANDREINA Khan - 10/08/2022 8:13 AM EDT Pt didn't check out after Radha appt 10/07. I left message on pt vm to call me back to get him scheduled. Need to know if he wants to see Radha at [facility] documented in this encounter Plan of Treatment Upcoming Encounters Date Type Specialty Care Team Description 10/22/2022 Office Visit Cardiology Jean-Paul Sumner MD [address] [place] [address] 11/15/2022 Office Visit Urology Jackson Rosenberg Jr., MD [address] [place] [address] 12/14/2022 Office Visit Dermatology Darby Girard PA-C [address] [place] [address] [place] [address] 02/21/2023 Office Visit Gastroenterology Kaity Comer DO [address] [place] [address] Scheduled Procedures Name Priority Associated Diagnoses Date/Ti [...] Additional history exists CKD HGB USE SMARTSET 89749 10/08/202310/07, 08/16/2022, 08/16/2022, Additional history exists CKD PHOS USE SMARTSET 50249 10/08/202309/25, 08/17/2021, 03/06/2020, Additional history exists Lipid Panel 08/17/2026 08/17/2021, 01/26, 01/23/2019, Additional history exists DTaP,Tdap,and Td Vaccines (3 - Td or Tdap) 08/18/2031 08/17/2021, 08/03/2010, 02/08/2006 Pneumococcal Vaccine: 65+ Years Completed 03/19/2015, 08/09/2013 ABDOMINAL AORTIC ANEURYSM (AAA) SCREENING Completed 03/19/2020, 03/11/2020 Zoster Vaccines Completed 04/29/2021, 02/16/2021 GARDASIL-HPV IMMUNIZATION SERIES Aged Out No longer eligible based on patient's age to complete this topic MENINGOCOCCAL (MENACTRA/MENVEO) Aged Out No longer eligible based on patient's age to complete this topic documented as of this encounter Medical Devices Implanted Type Area Medicare Sales Executive Device Identifier Shelf Expiration Date Model / Serial / Lot Lens 19.0 [id number] - [id number] - [id number] Implanted:Qty: 1 on 08/09/2016 by Madi Frederick MD at OR [facility] Right: Eye KIMMIE : SURGICAL 2018 [id number] / [id number] / documented as of this encounter Advance Directives Latest Code Status on File Code Status Date Activated Date Inactivated Comments Full Code 08/09/2016 2:37 PM 08/09/2016 7:17 PM This order reflects the patients wishes and were consensually agreed upon. Care Teams Cowlman Relationship Specialty Start Date End Date Jerzy Glez MD [address] [place] [address] PCP - General 12/30/99 documented as of this encounter
--- OUTSIDE RECORDS SUMMARY | 2023-02-05 13:20 | External Medical Summary | Summary of Care ---
Author Name Unknown Organization [facility] Address [address] [place] [address] Phone [phone] Care Team Providers Care Restaurant Front Manager Name Role Phone Sabrina Glez MD Primary Care Provider [phone] Reason for Visit * Reason Comments eRx-Medication Refill Encounter Details Date Type Department Care Team Description 09/24/2022 Refill [facility] [address] [place] [address] Sabrina Glez MD [address] [place] [address] Encounter for long-term (current) use of medications*; DM type 2, not at goal (HCC) Allergies No known active allergiesdocumented as of this encounter (statuses as of 09/24/2022) Medications Medication Sig Dispensed Refills Start Date End Date Status Blood Glucose Monitoring Suppl (ONETOUCH VERIO) w/Device KITIndications:D M type 2, not at goal (HCC),Type 2 diabetes mellitus with hemoglobin A1c goal of less than 8.0% (HCC) Use to check sugar daily E11.9 1 Kit 0 01/31/2019 Active Glucose Blood (ONETOUCH VERIO) STRPIndications: DM type 2, not at goal (HCC),Type 2 diabetes mellitus with hemoglobin A1c goal of less than 8.0% ([facility]) Use up check sugar daily E11.9 100 Strip 11 01/31/2019 Active CHIKA MONROE MISCIndications: DM type 2, not at goal (HCC),Type 2 [...] Additional Information Patient not taking.Reported on 08/16/2022 oxyCODONE HCl 10 MG Oral Tablet (Roxicodone)Gayathri cations:Other closed fracture of thoracic vertebra, unspecified thoracic vertebral level, sequela Take 1 Tablet by mouth in the morning and 1 Tablet at noon and 1 Tablet in the evening and 1 Tablet before bedtime. 120 Tablet 0 09/01/2022 Active traZODone HCl 100 MG Oral Tablet (Desyrel)Indicat ions:Persistent insomnia Take 1 Tablet by mouth at bedtime. 90 Tablet 3 09/01/2022 Active Furosemide 20 MG Oral Tablet (Lasix)Indicatio [...] EVENING MEALS 180 Tablet 1 09/24/2022 Active metFORMIN HCl 500 MG Oral Tablet (Glucophage)Gayathri cations:DM type 2, not at goal (HCC) Take 1 Tablet by mouth 2 times a day with morning and evening meals. 180 Tablet 1 03/25/2022 3 Discontinued documented as of this encounter (statuses as of 09/24/2022) Active Problems Problem Noted Date Cirrhosis of [...] as of this encounter (statuses as of 09/24/2022) Resolved Problems Problem Noted Date Resolved Date [...] as of this encounter (statuses as of 09/24/2022) Immunizations Name Administration Dates Next Due COVID-19 mRNA, LNP-s, No Pre serve, 2-Dose Series (AstroloMe) 02/02/2021,06/14/2020,05/24/2020 COVID-19, LNP-s, No Preserve , Ellis-sucrose, [...] Miscellaneous Notes * Telephone Encounter - Vinita Hyde [facility] - 09/24/2022 2:29 PM EDTSigned Prescriptions: Disp Refills metFORMIN HCl 500 MG Oral Tablet (Glucopha*180 Ta*1 Sig: TAKE 1TABLET BY MOUTH 2 TIMES A DAY WITH MORNING AND EVENING MEALSAuthorizing Provider: SABRINA GLEZ User: VINITA HYDE * Telephone Encounter - Vinita Hyde [facility] - 09/24/2022 2:28 PM EDT Per refill protocol patient needs lipid panel on file within the past year while using metformin. Lab work ordered to complete with next routine labs. Thanks, Vinita Hyde, PharmD Clinical Pharmacist [facility] ([facility]) [phone] 09/24/2022 2:28 PM documented in this encounter Plan of Treatment Upcoming Encounters Date Type Specialty Care Team Description 10/13/2022 Hospital Encounter Surgery Wil Simon Hill, DO [address] [place] [address] 10/13/2022 Surgery Surgery Wil Simon, DO [address] [place] [address] INJECTION SPINE LUMBAR OR SACRAL 10/22/2022 Office Visit Cardiology Jean-Paul Sumner MD [address] [place] [address] 11/15/2022 Office Visit Urology Shakira Arriaga, Jackson Pena MD [address] [place] [id number] 12/14/2022 Office Visit Dermatology Darby Girard PA-C [address] [place] [address] 02/21/2023 Office Visit Gastroenterology Kaity Comer, DO [address] [place] [address] Scheduled Orders Name Type Priority Associated Diagnoses Orde r Schedule LIPID PANEL WITH DIRECT LDL IF TG IS HIGH Lab Routine Encounter for long-term (current) use of medications Expected: 09/24/2022 (Approximate), Expires: 09/25/2023 Scheduled Procedures Name Priority Associated Diagnoses Date/Ti me INJECTION SPINE LUMBAR OR SACRAL Lumbar radiculopathy 10/13/2022 10:40 AM EDT ESOPHAGOGASTRODUODENOSCOPY ( EGD), FLEXIBLE, TRANSORAL, DIAGNOSTIC Recall Intestinal metaplasia of stomach COLONOSCOPY FLEXIBLE PROXIMA L DIAGNOSTIC Recall History [...] 01/30/2022 01/30/2019, 01/30/2019, 08/06/2013, Additional history exists Yearly B-12 02/16/2022 02/16/2021, 01/26, 05/18/2018 Albumin/Creatinine Ratio 08/17/2022 022, 07/15/2020, 06/19/2020, Additional history exists CKD PHOS USE SMARTSET 60020 08/17/202207/27, 03/06/2020, 02/14/2020, Additional history exists HbA1c 10/03/2022 04/05/2022, 07/27, 02/16/2021, Additional history exists GFR 02/16/2023 08/16/2022, 0503/2022, 05/21/2022, Additional history exists CKD HGB USE SMARTSET 27189 08/17/202308/16, 08/16/2022, 02/09/2022, Additional history exists Lipid Panel 08/17/2026 08/17/2021, 01/26, 01/23/2019, Additional history exists DTaP,Tdap,and Td Vaccines (3 - Td or Tdap) 08/18/2031 08/17/2021, 08/03/2010, 02/08/2006 Pneumococcal Vaccine: 65+ Years Completed 03/19/2015, 08/09/2013 ABDOMINAL AORTIC ANEURYSM (AAA) SCREENING Completed 03/19/2020, 03/11/2020 Zoster Vaccines Completed 04/29/2021, 02/16/2021 Influenza Vaccine (FLU shot) Completed , 12/19/2020, 12/08/2019, Additional history exists GARDASIL-HPV IMMUNIZATION SERIES Aged Out No longer eligible based on patient's age to complete this topic MENINGOCOCCAL (MENACTRA/MENVEO) Aged Out No longer eligible based on patient's age to complete this topic documented as of this encounter Medical Devices Implanted Type Area Trailer Assembler Device Identifier Shelf Expiration Date Model / Serial / Lot Lens 19.0 [id number] - [id number] - [id number] Implanted:Qty: 1 on 08/09/2016 by Madi Frederick MD at OR [facility] Right: Eye KIMMIE : SURGICAL 2018 [id number] / [id number] / documented as of this encounter Visit Diagnoses Diagnosis Encounter for long-term (current) use of medications- Primary Encounter for long-term (current) use of other medications DM type 2, not at goal (HCC) Type II or unspecified type diabetes mellitus without mention of complication, not stated as uncontrolled Lumbar radiculopathy Thoracic or lumbosacral neuritis or radiculitis, unspecified documented in this encounter Advance Directives Latest Code Status on File Code Status Date Activated Date Inactivated Comments Full Code 08/09/2016 2:37 PM 08/09/2016 7:17 PM This order reflects the patients wishes and were consensually agreed upon. Care Teams Restaurant Front Manager Relationship Specialty Start Date End Date Sabrina Glez MD [address] [place] [address] PCP - General 12/30/99 documented as of this encounter
--- OUTSIDE RECORDS SUMMARY | 2023-02-05 13:20 | External Medical Summary | Summary of Care ---
Author Name Unknown Organization [facility] Address [address] [place] [address] Phone [phone] Care Team Providers Care Wader Boot Top Assembler Name Role Phone Sabrina Glez MD Primary Care Provider [phone] Reason for Visit * Reason Onset Date Comments Medication Refill 10/27/2022 Encounter Details Date Type Department Care Team Description 10/27/2022 Refill [facility] [address] [place] [id number] Sabrina Glez MD [address] [place] [address] Chronic right-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); Other closed fracture of thoracic vertebra, unspecified thoracic vertebral level, sequela Allergies No known active allergiesdocumented as of this encounter (statuses as of 10/30/2022) Medications Medication Sig Dispensed Refills Start Date End Date Status Blood Glucose Monitoring Suppl (ONETOUCH VERIO) w/Device KITIndications:DM type 2, not at goal ([facility]),Type 2 diabetes mellitus with hemoglobin A1c goal of less than 8.0% ([facility]) Use to check sugar daily E11.9 1 Kit 0 01/31/2019 Active Glucose Blood (ONETOUCH VERIO) STRPIndications:D M type 2, not at goal ([facility]),Type 2 diabetes mellitus with hemoglobin A1c goal of less than 8.0% (HCC) Use up check sugar daily E11.9 100 Strip 11 01/31/2019 Active CHIKA MONROE MISCIndications:D M type 2, not at goal (HCC),Type [...] 08/16/2022 traZODone HCl 100 MG Oral Tablet (Desyrel)Indicati [...] 10/07/2022 metFORMIN HCl 500 MG Oral Tablet (Glucophage)Indic [...] before bedtime. 120 Tablet 0 10/30/2022 Active oxyCODONE HCl 10 MG Oral Tablet (Roxicodone)Indic ations:Other closed fracture of thoracic vertebra, unspecified thoracic vertebral level, sequela Take 1 Tablet by mouth in the morning and 1 Tablet at noon and 1 Tablet in the evening and 1 Tablet before bedtime. 120 Tablet 0 09/27/2022 3 Discontinue d(Refill) documented as of this encounter (statuses as of 10/30/2022) Active Problems Problem Noted Date Cirrhosis of [...] as of this encounter (statuses as of 10/30/2022) Resolved Problems Problem Noted Date Resolved Date [...] as of this encounter (statuses as of 10/30/2022) Immunizations Name Administration Dates Next Due COVID-19 mRNA, LNP-s, No Pre serve, 2-Dose Series ([employer]) 02/02/2021,06/14/2020,05/24/2020 COVID-19, LNP-s, No Preserve , Ellis-sucrose, Ages 12+ ([employer]) 10/08/2021 Pneumococcal Conjugate Vacc, 13 Valent (Prevnar) [...] Telephone Encounter - Sabrina Glez MD - 10/30/2022 8:50 AM EDTSigned Prescriptions: Disp Refills oxyCODONE HCl 10 MG Oral Tablet (Roxicodon*120 Ta*0 Sig: Take 1 Tablet by mouth in the morning and 1 Tablet at noon and 1 Tablet in the evening and 1 Tablet before bedtime. Authorizing Provider: SABRINA GLEZ Refused Prescriptions: Disp Refills Metoprolol Succinate ER 25 MG Oral Tablet *90 Tab*3 Sig: Take 1 Tablet by mouth in the morning. Refused By: VINITA HYED Reason for Refusal: Too soon * Telephone Encounter - [facility] - 10/28/2022 1:21 PM EDTPending Prescriptions: Disp Refills oxyCODONE HCl 10 MG Oral Tablet (Roxicodon*120 Ta*0 Sig: Take 1 Tablet by mouth in the morning and 1 Tablet at noon and 1 Tablet in the evening and 1 Tablet before bedtime. Refused Prescriptions: Disp Refills Metoprolol Succinate ER 25 MG Oral Tablet *90 Tab*3 Sig: Take 1 Tablet by mouth in the morni ng. Refused By: VINITA HYDE Reason for Refusal: Too soon Electronically signed by [facility] at 10/28/2022 1:21 PM EDT * Telephone Encounter - [facility] - 10/28/2022 1:19 PM EDT I have reviewed the patients controlled substance dispensing history in the Prescription Drug Monitoring Program in compliance with the [facility] regulations before prescribing a controlled substance. PDMP checked on 10/28/2022. Pending Prescriptions: Disp Refills oxyCODONE HCl 10 MG Oral Tablet (Roxicodo*120 Ta*0 Sig: Take 1 Tablet by mouth in the morning and 1 Tablet at noon and 1 Tablet in the evening and 1 Tablet before bedtime. Refused Prescriptions: Disp Refills Metoprolol Succinate ER 25 MG Oral Tablet *90 Tab*3 Sig: Take 1 Tablet by mouth in the morning. Refused By: VINITA HYDE Reason for Refusal: Too soon Last Visit: 07/26/2022 (in office), 04/18/2020 (telemedicine) Next Visit: Visit date not found Date medication was last filled: 09/29/22 Date medication is due for refill: 10/28/22 Pharmacy: [id number] Is this request for a controlled substance? Yes and Urine Drug Screen Not completed Toxicology results: Results for orders placed or performed in visit on 08/17/21 TOXICOLOGY, URINESCREEN Result Value Amphetamine Negative Benzodiazepines Negative Cannabinoids [...] SEE COMMENT Please approve if appropriate. Thanks, Vinita [facility], PharmD Clinical Pharmacist [facility] ([facility]) [phone] 10/28/2022 1:20 PM Electronically signed by [facility] at 10/28/2022 1:21 PM EDT documented in this encounter Plan of Treatment Upcoming Encounters Date Type Specialty Care Team Description 11/15/2022 Office Visit Urology Jackson Rosenberg Jr., MD [address] [place] [address] 12/14/2022 Office Visit Dermatology Darby Girard PA-C [address] [place] [address] 12/31/2022 Office Visit Cardiology Mary Jane Hawkins PA-C [address] [place] [address] 02/21/2023 Office Visit Gastroenterology Kaity Comer DO [address] [place] [address] 04/13/2023 Office Visit Nephrology Luz Marina De Leon PA-C [address] [facility] [address] Scheduled Procedures Name Priority Associated Diagnoses Date/Ti [...] Additional history exists CKD HGB USE SMARTSET 37303 10/08/202310/07, 08/16/2022, 08/16/2022, Additional history exists CKD PHOS USE SMARTSET 46537 10/08/202309/25, 08/17/2021, 03/06/2020, Additional history exists Lipid [...] this encounter Medical Devices Implanted Type Area Delinquent Tax Collector Device Identifier Shelf Expiration Date Model / Serial / Lot Lens 19.0 [id number] - [id number] - [id number] Implanted:Qty: 1 on 08/09/2016 by Madi Frederick MD at OR [facility] Right: Eye KIMMIE : SURGICAL 2018 [id number] / [id number] / documented as of this encounter Visit Diagnoses Diagnosis Chronic right-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) Congestive heart failure, unspecified Other closed fracture of thoracic vertebra, unspecified thoracic vertebral level, sequela documented in this encounter Advance Directives Latest Code Status on File Code Status Date Activated Date Inactivated Comments Full Code 08/09/2016 2:37 PM 08/09/2016 7:17 PM This order reflects the patients wishes and were consensually agreed upon. Care Teams Wader Boot Top Assembler Relationship Specialty Start Date End Date Sabrina Glez MD [facility] [address] [place], [place] [id number] PCP - General 12/30/99 documented as of this encounter
--- OUTSIDE RECORDS SUMMARY | 2023-02-05 13:20 | External Medical Summary | Summary of Care ---
Author Name Unknown Organization [facility] Address [address] [place] [address] Phone [phone] Care Team Providers Care Wildlife Removal Specialist Name Role Phone Jerzy Glez MD Primary Care Provider [phone] Reason for Visit * Reason Onset Date Comments Appointment 09/06/2022 Encounter Details Date Type Department Care Team Description 09/06/2022 Telephone Nephrology, [facility] [address] [place] [address] Kerri Garcia MD [address] [place] [address] Appointment Allergies No known active allergiesdocumented as of this encounter (statuses as of 09/29/2022) Medications Medication Sig Dispensed Refills Start Date End Date Status Blood Glucose Monitoring Suppl (ONETOUCH VERIO) w/Device KITIndications:DM type 2, not at goal ([facility]),Type 2 diabetes mellitus with hemoglobin A1c goal of less than 8.0% ([facility]) Use to check sugar daily E11.9 1 Kit 0 9 Active Glucose Blood (ONETOUCH VERIO) STRPIndications:D M type 2, not at goal (HCC),Type 2 diabetes mellitus with hemoglobin A1c goal of less than 8.0% ([facility]) Use up check sugar daily E11.9 100 Strip 11 9 Active ONETOUCH DELICA LANCETS FINE MISCIndications:D M type 2, not at goal (HCC),Type 2 diabetes mellitus with hemoglobin A1c goal of less than 8.0% (HCC) Use to test blood sugar once daily- dx E11.9 1 Each 5 9 Active Metoprolol Succinate ER 25 MG Oral Tablet Extended Release 24 Hour (toPROL XL)Indications:Ch ronic right-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) Take 1 Tablet by mouth in the morning. 90 Tablet 3 3 Active Losartan Potassium 50 MG Oral Tablet (Cozaar) Take 1 Tablet by mouth in the morning. 0 Active LORazepam 0.5 MG Oral Tablet (Ativan)Indicatio ns:Anxiety 2 tabs 45 minutes before MRI. Repeat 1 tab 15 minutes before MRI if needed 3 Tablet 0 3 Active Additional Information Patient not taking.Reported on 08/16/2022 traZODone HCl 100 MG Oral Tablet (Desyrel)Indicati ons:Persistent insomnia Take 1 Tablet by mouth at bedtime. 90 Tablet 3 3 Active Furosemide 20 MG Oral Tablet (Lasix)Indication s:Chronic right-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) 20 mg every daily plus one additional one day per week and as directed for weight gain greater than 4 lb 140 Tablet 3 2 09/07/19 23 Discontinued metFORMIN HCl 500 MG Oral Tablet (Glucophage)Indic ations:DM type 2, not at goal ([facility]) Take 1 Tablet by mouth 2 times a day with morning and evening meals. 180 Tablet 1 2 09/25/19 23 Discontinued methylPREDNISolon e 4 MG Oral Tablet Therapy Pack (Medrol Dosepack)Indicati ons:Left lumbar radiculopathy follow package directions 21 Tablet 0 3 09/15/19 23 Discontinued(Tn dication List Clean Up) oxyCODONE HCl 10 MG Oral Tablet (Roxicodone)Indic ations:Other closed fracture of thoracic vertebra, unspecified thoracic vertebral level, sequela Take 1 Tablet by mouth in the morning and 1 Tablet at noon and 1 Tablet in the evening and 1 Tablet before bedtime. 120 Tablet 0 3 09/26/19 23 Discontinued(Re fill) documented as of this encounter (statuses as of 09/29/2022) Active Problems Problem Noted Date Cirrhosis of [...] as of this encounter (statuses as of 09/29/2022) Resolved Problems Problem Noted Date Resolved Date [...] as of this encounter (statuses as of 09/29/2022) Immunizations Name Administration Dates Next Due COVID-19 mRNA, LNP-s, No Pre serve, 2-Dose Series ([employer]) 02/02/2021,06/14/2020,05/24/2020 COVID-19, LNP-s, No Preserve , Ellis-sucrose, [...] encounter Miscellaneous Notes * Telephone Encounter - Kerri Garcia MD - 09/29/2022 2:18 PM EDT Still no appt scheduled Any updates? * Telephone Encounter - Bee Parikh RN - 09/06/2022 9:06 AM EDT Seamless Tube Mill Operator-Please call pt to schedule follow up appointment with Dr Garcia. Was due to be seen In May. documented in this encounter Plan of Treatment Upcoming Encounters Date Type Specialty Care Team Description 10/13/2022 Hospital Encounter Surgery Wil Simon, DO [address] [place] [address] 10/13/2022 Surgery Surgery Wil Simon, DO [address] [place] [address] INJECTION SPINE LUMBAR OR SACRAL 10/22/2022 Office Visit Cardiology Jean-Paul Sumner MD [address] [place] [address] 11/15/2022 Office Visit Urology Shakira Arriaga, Jackson Pena MD [address] [place] [id number] 12/14/2022 Office Visit Dermatology Darby Girard PA-C [address] [place] [address] 02/21/2023 Office Visit Gastroenterology Kaity Comer DO [address] [place] [address] Scheduled Procedures Name Priority Associated Diagnoses Date/Ti [...] Additional history exists CKD PHOS USE SMARTSET 86903 08/17/202207/27, 03/06/2020, 02/14/2020, Additional history exists HbA1c 10/03/2022 04/05/2022, 07/27, 02/16/2021, Additional history exists Influenza Vaccine (FLU shot) (#1) 2022 01/20/2022, 12/19/2020, 12/08/2019, Additional history exists GFR 02/16/2023 08/16/2022, 05/0 03/2022, 05/21/2022, Additional history exists CKD HGB USE SMARTSET 06491 08/17/202308/16, 08/16/2022, 02/09/2022, Additional history exists Lipid [...] this encounter Medical Devices Implanted Type Area Occupational Therapy Aide Device Identifier Shelf Expiration Date Model / Serial / Lot Lens 19.0 [id number] - [id number] - [id number] Implanted:Qty: 1 on 08/09/2016 by Madi Frederick MD at OR [facility] Right: Eye KIMMIE : SURGICAL 2018 [id number] / [id number] / documented as of this encounter Advance Directives Latest Code Status on File Code Status Date Activated Date Inactivated Comments Full Code 08/09/2016 2:37 PM 08/09/2016 7:17 PM This order reflects the patients wishes and were consensually agreed upon. Care Teams Wildlife Removal Specialist Relationship Specialty Start Date End Date Jerzy Glez MD [address] [place] [address] PCP - General 12/30/99 documented as of this encounter
--- OUTSIDE RECORDS SUMMARY | 2023-02-05 13:20 | External Medical Summary ---
Author Name Unknown Address Unknown Organization K01:[facility] [address] [place] [address] Laboratory Report Ordering Provider Test Date Status ANN MARIE FIELDS 10/07/2022 16:12:58 Final Observation Date Value Abnormality Reference (Units ) Status Hemoglobin 10/07/2022 16:12:58 13.0 Below low normal 14 .0-16.8 (g/dL) Final Performing Location [facility] [address] [place] [address]
--- OUTSIDE RECORDS SUMMARY | 2023-02-05 13:20 | External Medical Summary | Summary of Care ---
Author Name Unknown Organization [facility] Address [address] [place] [facility] [place] [address] Phone [phone] Care Team Providers Care Social Work Manager Name Role Phone Jerzy Glez MD Primary Care Provider [phone] Reason for Visit * Reason Onset Date Comments Scheduling 10/22/2022 Encounter Details Date Type Department Care Team Description 10/22/2022 Telephone Cardiology, [facility] [address] [place] [address] Jean-Paul Sumner MD [address] [place] [address] Scheduling Allergies No known active allergiesdocumented as of this encounter (statuses as of 11/01/2022) Medications Medication Sig Dispensed Refills Start Date End Date Status Blood Glucose Monitoring Suppl (ONETOUCH VERIO) w/Device KITIndications:DM type 2, not at goal (HCC),Type 2 diabetes mellitus with hemoglobin A1c goal of less than 8.0% ([facility]) Use to check sugar daily E11.9 1 [...] as of this encounter (statuses as of 11/01/2022) Active Problems Problem Noted Date Cirrhosis of liver with ascites 05/01/20 23 Chronic heart failure with preserved eje [...] as of this encounter (statuses as of 11/01/2022) Resolved Problems Problem Noted Date Resolved Date [...] as of this encounter (statuses as of 11/01/2022) Immunizations Name Administration Dates Next Due COVID-19 mRNA, LNP-s, No Pre serve, 2-Dose Series ([employer]) 02/02/2021,06/14/2020,05/24/2020 COVID-19, LNP-s, No Preserve , Ellis-sucrose, [...] Miscellaneous Notes * Telephone Encounter - ANDREINA Mason - 10/25/2022 9:35 AM EDT No openings with Dr Sumner. Will keep as scheduled. * Telephone Encounter - Reed Bolanos - 10/22/2022 10:38 AM EDT Pt's appt was canceled, I rescheduled them with antonette thompson. They want to know if there's any way to get in with [facility], nothing available to schedule when I assisted them. Please call with an update, ph# in chart is good. documented in this encounter Plan of Treatment Upcoming Encounters Date Type Specialty Care Team Description 11/15/2022 Office Visit Urology Shakira Arriaga, Jackson Pena MD [address] [place] [address] 12/14/2022 Office Visit Dermatology Darby Girard PA-C [address] [place] [address] 12/31/2022 Office Visit Cardiology Antonette Thompson PA-C [address] [place] [address] 02/21/2023 Office Visit Gastroenterology Kaity Comer Ewelina, [address] [place] [address] 04/13/2023 Office Visit Nephrology Luz Marina De Leon PA-C [address] [place] [address] Scheduled Procedures Name Priority Associated Diagnoses Date/Ti [...] Additional history exists CKD HGB USE SMARTSET 54354 10/08/202310/07, 08/16/2022, 08/16/2022, Additional history exists CKD PHOS USE SMARTSET 66618 10/08/202309/25, 08/17/2021, 03/06/2020, Additional history exists Lipid [...] this encounter Medical Devices Implanted Type Area Contract Officer Device Identifier Shelf Expiration Date Model / Serial / Lot Lens 19.0 Cz70bd - [id number] - [id number] Implanted:Qty: 1 on 08/09/2016 by Madi Frederick MD at [facility] Right: Eye KIMMIE : SURGICAL 2018 [id number] / [id number] / documented as of this encounter Advance Directives Latest Code Status on File Code Status Date Activated Date Inactivated Comments Full Code 08/09/2016 2:37 PM 08/09/2016 7:17 PM This order reflects the patients wishes and were consensually agreed upon. Care Teams Social Work Manager Relationship Specialty Start Date End Date Jerzy Glez MD [address] [place] [address] PCP - General 12/30/99 documented as of this encounter
--- OUTSIDE RECORDS SUMMARY | 2023-02-05 13:20 | External Medical Summary | Summary of Care ---
Author Name Unknown Organization [facility] Address [address] [place] [address] Phone [phone] Care Team Providers Care Studio Potter Name Role Phone Jerzy Glez MD Primary Care Provider [phone] Reason for Visit * Reason Onset Date Comments Appointment 10/08/2022 Return in about 6 months (around 04/09/2023) for clinic visit w/ [place], clinic visit w/ . Check-out Comments: 10/22 [facility] [place] [facility] En[facility] Details Date Type Department Care Team Description 10/08/2022 Telephone Nephrology [address] [place] [address] [facility] [address] [facility] [address] App[facility]ment (Return in about 6 months (stephania... Allergies No known active allergiesdocumented as of this encounter (statuses as of 10/12/2022) Medications Medication Sig Dispensed Refills Start Date [...] Oral Tablet Extended Release 24 Hour (toPROL XL)Indications:Lpn Or Medical Assistant ede right-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) Take 1 [...] as of this encounter (statuses as of 10/12/2022) Active Problems Problem Noted Date Cirrhosis of [...] as of this encounter (statuses as of 10/12/2022) Resolved Problems Problem Noted Date Resolved Date [...] as of this encounter (statuses as of 10/12/2022) Immunizations Name Administration Dates Next Due COVID-19 [...] * Telephone Encounter - ANDREINA Khan - 10/12/2022 1:06 PM EDT I spoke to Delvis. He is scheduled for both appts and aware. * Telephone Encounter - ANDREINA Khan - 10/08/2022 8:13 AM EDT Pt didn't check out after Garcia appt 10/07. I left message on pt vm to call me back to get him scheduled. Need to know if he wants to see Garcia at [facility] documented in this encounter Plan of Treatment Upcoming Encounters Date Type Specialty Care Team Description 10/22/2022 Office Visit Cardiology Jean-Paul Sumner MD [address] [place] [address] 10/22/2022 Nurse Only Nephrology Sp, Nurse Nephrology [address] [facility] [place] [address] 11/15/2022 Office Visit Urology Jackson Rosenberg Jr., MD [address] [facility] [address] [place] [address] 12/14/2022 Office Visit Dermatology Darby Girard PA-C [address] [place] [address] 02/21/2023 Office Visit Gastroenterology Kaity Comer DO [address] [place] [address] 04/13/2023 Office Visit Nephrology Luz Marina De Leon PA-C [address] [facility] [place] [address] Scheduled Procedures Name Priority Associated Diagnoses Date/Ti [...] Additional history exists CKD HGB USE SMARTSET 53933 10/08/202310/07, 08/16/2022, 08/16/2022, Additional history exists CKD PHOS USE SMARTSET 04541 10/08/202309/25, 08/17/2021, 03/06/2020, Additional history exists Lipid [...] this encounter Medical Devices Implanted Type Area Rackman Device Identifier Shelf Expiration Date Model / Serial / Lot Lens 19.0 Cz70bd - [id number] - [id number] Implanted:Qty: 1 on 08/09/2016 by Madi Frederick MD at OR [facility] Right: Eye KIMMIE : SURGICAL 2018 [id number] / [id number] / documented as of this encounter Advance Directives Latest Code Status on File Code Status Date Activated Date Inactivated Comments Full Code 08/09/2016 2:37 PM 08/09/2016 7:17 PM This order reflects the patients wishes and were consensually agreed upon. Care Teams Studio Potter Relationship Specialty Start Date End Date Jerzy Glez MD [address] [place] [address] PCP - General 12/30/99 documented as of this encounter
--- OUTSIDE RECORDS SUMMARY | 2023-02-05 13:20 | External Medical Summary | Summary of Care ---
Author Name Unknown Organization [facility] Address [address] [facility] [place] [address] Phone [phone] Care Team Providers Care Land Measurer Name Role Phone Jerzy Glez MD Primary Care Provider [phone] Reason for Visit * Reason Comments Urology Procedure Prostate biopsy Encounter Details Date Type Department Care Team Description 11/15/2022 Office Visit Urology Tomasa Huerta [address] [place] [address] Jackson Rosenberg Jr., MD [address] [place] [address] Elevated prostate specific antigen (PSA)* Allergies No [...] Oral Tablet Extended Release 24 Hour (toPROL XL)Indications:Customer Consulting Manager ede right-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) Take [...] mRNA, LNP-s, No Pre serve, 2-Dose Series ([employer]) 02/02/2021,06/14/2020,05/24/2020 COVID-19, LNP-s, No Preserve , Ellis-sucrose, [...] [address] [place] [address] 12/14/2022 Office Visit Dermatology Darby Girard PA-C [address] [place] [address] 12/31/2022 Office Visit Cardiology Mary Jane Hawkins PA-C [address] [place] [address] 02/21/2023 Office Visit Gastroenterology Kaity Comer DO [address] [place] [address] 04/13/2023 Office Visit NephLuz Marina Britt PA-C [address] [facility] [place], [place] [address] Pending Results Name Type Priority Associated Diagnoses [...] Additional history exists CKD HGB USE SMARTSET 14760 10/08/202310/07, 08/16/2022, 08/16/2022, Additional history exists CKD PHOS USE SMARTSET 38260 10/08/202309/25, 08/17/2021, 03/06/2020, Additional history exists Lipid [...] this encounter Medical Devices Implanted Type Area Improvement Coordinator Device Identifier Shelf Expiration Date Model / Serial / Lot Lens 19.0 Cz70bd - [id number] - [id number] Implanted:Qty: 1 on 08/09/2016 by Madi Frederick MD at [facility] Right: Eye KIMMIE : SURGICAL 2018 [id number] / [id number] / documented as of this encounter Visit Diagnoses Diagnosis Elevated prostate specific antigen (PSA)- Primary documented in this encounter Advance Directives Latest Code Status on File Code Status Date Activated Date Inactivated Comments Full Code 08/09/2016 2:37 PM 08/09/2016 7:17 PM This order reflects the patients wishes and were consensually agreed upon. Care Teams Land Measurer Relationship Specialty Start Date End Date Jerzy Glez MD [address] [place] [address] PCP - General 12/30/99 documented as of this encounter
--- OUTSIDE RECORDS SUMMARY | 2023-02-05 13:20 | External Medical Summary | Summary of Care ---
Author Name Unknown Organization [facility] Address [address] [facility] [place] [address] Phone [phone] Care Team Providers Care Tunnel Elastic Operator Chainstitch Name Role Phone Jerzy Glez MD Primary Care Provider [phone] Reason for Visit * Reason Comments Outpatient Testing Encounter Details Date Type Department Care Team Description 10/07/2022 Laboratory Laboratory [address] [place] [id number] [place] [address] HTN, goal below 130/80; Stage 3 chronic kidney disease, unspecified whether stage 3a or 3b CKD (HCC) Allergies No known active allergiesdocumented as of this encounter (statuses as of 10/07/2022) Medications Medication Sig Dispensed Refills Start Date [...] Oral Tablet Extended Release 24 Hour (toPROL XL)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: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) Take 1 [...] as of this encounter (statuses as of 10/07/2022) Active Problems Problem Noted Date Cirrhosis of [...] as of this encounter (statuses as of 10/07/2022) Resolved Problems Problem Noted Date Resolved Date [...] as of this encounter (statuses as of 10/07/2022) Immunizations Name Administration Dates Next Due COVID-19 mRNA, LNP-s, No Pre serve, 2-Dose Series ([employer]) 02/02/2021,06/14/2020,05/24/2020 COVID-19, LNP-s, No Preserve , Ellis-sucrose, [...] Team Description 10/22/2022 Office Visit Cardiology Jean-Paul Sumenr MD [address] [place] [address] 11/15/2022 Office Visit Urology Jackson Rosenberg Jr., MD [address] [place] [id number] 12/14/2022 Office Visit Dermatology Darby Girard PA-C [address] [place] [address] 02/21/2023 Office Visit Gastroenterology Kaity Comer DO [address] [place] [address] Pending Results Name Type Priority Associated Diagnoses Date /Time ALBUMIN / CREATININE RATIO, URINE Lab Routine HTN, goal below 130/80 Stage 3 chronic kidney disease, unspecified whether stage 3a or 3b CKD ([facility]) 10/07/2022 4:12 PM EDT BASIC METABOLIC PANEL Lab Routine HTN, goal below 130/80 Stage 3 chronic kidney disease, unspecified whether stage 3a or 3b CKD (HCC) 10/07/2022 4:12 PM EDT PTH Lab Routine Stage 3 chronic kidney disease, unspecified whether stage 3a or 3b CKD (HCC) 10/07/2022 4:12 PM EDT 25-HYDROXY VITAMIN D Lab Routine Stage 3 chronic kidney disease, unspecified whether stage 3a or 3b CKD (HCC) 10/07/2022 4:12 PM EDT PHOSPHORUS Lab Routine Stage 3 chronic kidney disease, unspecified whether stage 3a or 3b CKD (HCC) 10/07/2022 4:12 PM EDT HGB Lab Routine Stage 3 chronic kidney disease, unspecified whether stage 3a or 3b CKD (HCC) 10/07/2022 4:12 PM EDT Scheduled Procedures Name Priority Associated [...] history exists B-12 02/16/2022 02/16/2021, 01/26, 05/18/2018 Albumin/Creatinine Ratio 08/17/2022 022, 07/15/2020, 06/19/2020, Additional history exists CKD PHOS USE SMARTSET 15932 08/17/202207/27, 03/06/2020, 02/14/2020, Additional history exists HbA1c 10/03/2022 04/05/2022, 07/27, 02/16/2021, Additional history exists Influenza Vaccine (FLU shot) (#1) 2022 01/20/2022, 12/19/2020, 12/08/2019, Additional history exists GFR 02/16/2023 08/16/2022, 05/0 03/2022, 05/21/2022, Additional history exists CKD HGB USE SMARTSET 44263 08/17/202308/16, 08/16/2022, 02/09/2022, Additional history exists Lipid [...] this encounter Medical Devices Implanted Type Area Vmware Administrator Device Identifier Shelf Expiration Date Model / Serial / Lot Lens 19.0 [id number] - [id number] - [id number] Implanted:Qty: 1 on 08/09/2016 by Madi Frederick MD at [facility] Right: Eye KIMMIE : SURGICAL 2018 [id number] / [id number] / documented as of this encounter Visit Diagnoses Diagnosis HTN, goal below 130/80 Unspecified essential hypertension Stage 3 chronic kidney disease, unspecified whether stage 3a or 3b CKD (HCC) documented in this encounter Advance Directives Latest Code Status on File Code Status Date Activated Date Inactivated Comments Full Code 08/09/2016 2:37 PM 08/09/2016 7:17 PM This order reflects the patients wishes and were consensually agreed upon. Care Teams Tunnel Elastic Operator Chainstitch Relationship Specialty Start Date End Date Jerzy Glez MD [address] [place] [address] PCP - General 12/30/99 documented as of this encounter
--- OUTSIDE RECORDS SUMMARY | 2023-02-05 13:20 | External Medical Summary ---
Author Name Unknown Address Unknown Organization K01:[facility] [place] [address] [place] [address] Laboratory Report Ordering Provider Test Date Status ANN MARIE FIELDS 10/07/2022 16:12:58 Final Observation Date Value Abnormality Reference (Units ) Status Parathyrin.intact [Mass/volume] in Serum or Plasma 10/07/2022 16:12:58 26 15-65 (pg/mL) Final Performing Location [facility] [place] [address] [place] [address]
--- OUTSIDE RECORDS SUMMARY | 2023-02-05 13:20 | External Medical Summary ---
Author Name Unknown Address Unknown Organization K01:[facility] [place] - [address] [place] [address] Laboratory Report Ordering Provider Test Date Status ANN MARIE FIELDS 10/07/2022 16:12:58 Final Normal: <30 mg/g creatinine< br/>High: 30-300 mg/g creatinine
Very High: >300 mg/g creatinine
Nephrotic: >2200 mg/g creatinine Observation Date Value Abnormality Reference (Units ) Status Albumin, Urine 10/07/2022 16:12:58 50.75 (mg/dL) Final Creatinine, Urine 10/07/2022 16:12:58 238 (mg/dL) Final Albumin/Creatinine [Mass Ratio] in Urine 10/07/2022 16:12:58 213 Above high normal <30 (mg/g Creat) Final Performing Location [facility] [place] - [address] [place] [address]
--- OUTSIDE RECORDS SUMMARY | 2023-02-05 13:20 | External Medical Summary ---
Author Name Unknown Address Unknown Organization K01:[facility] [place] - [address] [place] [address] Laboratory Report Ordering Provider Test Date Status ANN MARIE FIELDS 10/07/2022 16:12:58 Final Observation Date Value Abnormality Reference (Units ) Status BUN 10/07/2022 16:12:58 22 Above high normal 6-20 (mg/dL) Final Creatinine 10/07/2022 16:12:58 1.3 Above high normal 0.6-1.2 (mg/dL) Final Glomerular filtration rate/1.73 sq M.predicted [Volume Rate/Area] in Serum, Plasma or Blood by Creatinine-based formula (CKD-EPI) 10/07/2022 16:12:58 57 Below low normal >=60 (mL/min) Final eGFR is calculated based on the CKD-EPI 2020 equation SODIUM 10/07/2022 16:12:58 137 135-146 (m mol/L) Final Potassium 10/07/2022 16:12:58 4.6 3.5-5.1 (m mol/L) Final Cl 10/07/2022 16:12:58 104 98-107 (mm ol/L) Final CO2 10/07/2022 16:12:58 24 22-32 (mmo l/L) Final Anion gap 10/07/2022 16:12:58 9 7-15 (mmol /L) Final Glucose 10/07/2022 16:12:58 119 70-120 (mg /dL) Final Calcium 10/07/2022 16:12:58 9.1 8.4-10.2 ( mg/dL) Final Performing Location [facility] [place] - [address] [place] [address]
--- OUTSIDE RECORDS SUMMARY | 2023-02-05 13:20 | External Medical Summary | Summary of Care ---
Author Name Unknown Organization [facility] Address [address] [facility] [place] [address] Phone [phone] Care Team Providers Care Biology Lecturer Name Role Phone Jerzy Glez MD Primary Care Provider [phone] Reason for Visit * Reason Comments Blood Pressure Check Encounter Details Date Type Department Care Team Description 10/22/2022 Nurse Only Nephrology, [facility] [address] [place] [address] Sp, Nurse Nephrology [address] [place] [address] Blood Pressure Check Allergies No known active allergiesdocumented as of this encounter (statuses as of 10/22/2022) Medications Medication Sig Dispensed Refills Start Date [...] Oral Tablet Extended Release 24 Hour (toPROL XL)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 Both Home Omron cuffs are validated. 3 day log given. documented in this encounter Plan of Treatment Upcoming Encounters Date Type Specialty Care Team Description 11/15/2022 Office Visit Urology Shakira Arriaga, Jackson Diggs MD [address] [place] [address] 12/14/2022 Office Visit Dermatology Darby Girard PA-C [address] [place] [address] 12/31/2022 Office Visit Cardiology Mary Jane Hawkins PA-C [address] [place] [address] 02/21/2023 Office Visit Gastroenterology Kaity Comer DO [address] [place] [address] 04/13/2023 Office Visit Nephrology Luz Marina De Leon PA-C [address] [facility], [place] [address] Scheduled Procedures Name Priority Associated Diagnoses Date/Ti [...] Additional history exists CKD HGB USE SMARTSET 72788 10/08/202310/07, 08/16/2022, 08/16/2022, Additional history exists CKD PHOS USE SMARTSET 09663 10/08/202309/25, 08/17/2021, 03/06/2020, Additional history exists Lipid [...] this encounter Medical Devices Implanted Type Area Supervisor Painting Shipyard Device Identifier Shelf Expiration Date Model / Serial / Lot Lens 19.0 [id number] - [id number] - [id number] Implanted:Qty: 1 on 08/09/2016 by Madi Frederick MD at OR [facility] Right: Eye KIMMIE : SURGICAL 2018 [id number] / [id number] / documented as of this encounter Advance Directives Latest Code Status on File Code Status Date Activated Date Inactivated Comments Full Code 08/09/2016 2:37 PM 08/09/2016 7:17 PM This order reflects the patients wishes and were consensually agreed upon. Care Teams Biology Lecturer Relationship Specialty Start Date End Date Jerzy Glez MD [address] [place] [address] PCP - General 12/30/99 documented as of this encounter
--- OUTSIDE RECORDS SUMMARY | 2023-02-05 13:20 | External Medical Summary | Summary of Care ---
Author Name Unknown Organization [facility] Address [address] [place] [address] Phone [phone] Care Team Providers Care Wallpaper Inspector And Shipper Name Role Phone Jerzy Glez MD Primary Care Provider [phone] Reason for Visit * Reason Onset Date Comments Health Maintenance 10/04/2022 Encounter Details Date Type Department Care Team Description 10/04/2022 Telephone [facility] [address] [place] [address] Jerzy Glez MD [address] [place] [address] Health Maintenance Allergies No known active allergiesdocumented as of this encounter (statuses as of 10/04/2022) Medications Medication Sig Dispensed Refills Start Date End Date Status Blood Glucose Monitoring Suppl (ONETOUCH VERIO) w/Device KITIndications:DM type 2, not at goal (HCC),Type 2 diabetes mellitus with hemoglobin A1c goal of less than 8.0% ([facility]) Use to check sugar [...] Oral Tablet Extended Release 24 Hour (toPROL XL)Indications:Regrader ede right-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) Take 1 [...] as of this encounter (statuses as of 10/04/2022) Active Problems Problem Noted Date Cirrhosis of [...] as of this encounter (statuses as of 10/04/2022) Resolved Problems Problem Noted Date Resolved Date [...] as of this encounter (statuses as of 10/04/2022) Immunizations Name Administration Dates Next Due COVID-19 mRNA, LNP-s, No Pre serve, 2-Dose Series ([employer]) 02/02/2021,06/14/2020,05/24/2020 COVID-19, LNP-s, No Preserve , Ellis-sucrose, [...] encounter Miscellaneous Notes * Telephone Encounter - Ivette Ramires LPN - 10/04/2022 1:27 PM EDT Care Gaps Comprehensive Care Outreach Last Office/Telemedicine Visit: 07/26/2022 (in office), 04/18/2020 (telemedicine) Next Office Visit: Visit date not found Hemoglobin AIC Results: Lab Results Component Value Date/Time HEMOGLOBIN A1C - [facility] 5.9 (H) 04/05/2022 10:01 AM HEMOGLOBIN A1C - [facility] 7.1 (H) 08/17/2021 10:15 AM HEMOGLOBIN A1C - [facility] 6.8 (H) 02/16/2021 11:35 AM HEMOGLOBIN A1C - [facility] 6.4 (H) 02/14/2020 01:02 PM HEMOGLOBIN A1C - [facility] 6.7 (H) 01/23/2019 11:50 AM HEMOGLOBIN A1C - [facility] 6.5 (H) 05/18/2018 11:16 AM Reviewed Health Maintenance below: Health Maintenance Topic Date Due DXA Scan Never done B-12 Never done Hepatitis B (1 of 3 - Risk 3-dose series) Never done DIABETES-FOOT EXAM 02/13/2021 Depression Screening, Annual for Pts 12 and Over 02/13/2021 DIABETES-EYE EXAM 10/20/2021 COVID-19 Vaccine (5 - Pfizer series) 12/03/2021 COLONOSCOPY-EVERY 3 YRS AGES 18-100 01/30/2022 Albumin/Creatinine Ratio 08/17/2022 CKD PHOS USE SMARTSET 89237 08/17/2022 HbA1c 10/03/2022 Influenza Vaccine (FLU shot) (1) 11/26/2022 GFR 02/16/2023 dexa Foot Eye Colon Labs/urine ov Care Gap Outreach Action Taken: Left message documented in this encounter Plan of Treatment Upcoming Encounters Date Type Specialty Care Team Description 10/06/2022 Hospital Encounter Surgery MiguelozzyWil wong, DO [address] [place] [address] 10/06/2022 Surgery Surgery Wil Simon, DO [address] [place] [address] INJECTION SPINE LUMBAR OR SACRAL 10/07/2022 Office Visit Nephrology Kerri Garcia MD [address] [place] [address] 10/22/2022 Office Visit Cardiology Jean-Paul Sumner MD [address] [place] [address] 11/15/2022 Office Visit Urology Jackson Rosenberg Jr., MD [address] [place] [address] 12/14/2022 Office Visit Dermatology Darby Girard PA-C [address] [place] [address] 02/21/2023 Office Visit Gastroenterology Kaity Comer, DO [address] [place] [address] Scheduled Procedures Name Priority Associated Diagnoses Date/Ti me INJECTION SPINE LUMBAR OR SACRAL Lumbar radiculopathy 10/06/2022 11:00 AM EDT ESOPHAGOGASTRODUODENOSCOPY ( EGD), FLEXIBLE, TRANSORAL, DIAGNOSTIC Recall Intestinal metaplasia of stomach COLONOSCOPY FLEXIBLE PROXIMA L DIAGNOSTIC Recall History of colon polyps Health Maintenance Due Date Last Done Comments DXA Scan 1950 B-12 1966 Hepatitis B (1 of 3 - Risk 3-dose series) 2008 DIABETES-FOOT EXAM 02/13/2021 02/14/2020, 0 05/18/2018, 07/22/2016 Depression Screening, Annual for Pts 12 and Over 02/13/2021 02/14/2020 DIABETES-EYE EXAM 10/20/2021 10/20/2020, , 09/15/2016, Additional history exists COVID-19 Vaccine (5 - Pfizer series) 12/03/2021 10/08/2021, 02/02/2021, 06/14/2020, Additional history exists COLONOSCOPY-EVERY 3 YRS AGES 18-100 01/30/2022 01/30/2019, 01/30/2019, 08/06/2013, Additional history exists Albumin/Creatinine Ratio 08/17/2022 022, 07/15/2020, 06/19/2020, Additional history exists CKD PHOS USE SMARTSET 70735 08/17/202207/27, 03/06/2020, 02/14/2020, Additional history exists HbA1c 10/03/2022 04/05/2022, 2 05/2021, 02/16/2021, Additional history exists Influenza Vaccine (FLU shot) (#1) 2022 01/20/2022, 12/19/2020, 12/08/2019, Additional history exists GFR 02/16/2023 08/16/2022, 05/0 03/2022, 05/21/2022, Additional history exists CKD HGB USE SMARTSET 15051 08/17/202308/16, 08/16/2022, 02/09/2022, Additional history exists Lipid [...] this encounter Medical Devices Implanted Type Area Roof Assembler Device Identifier Shelf Expiration Date Model / Serial / Lot Lens 19.0 [id number] - [id number] - [id number] Implanted:Qty: 1 on 08/09/2016 by Madi Frederick MD at OR [facility] Right: Eye KIMMIE : SURGICAL 2018 [id number] / [id number] / documented as of this encounter Advance Directives Latest Code Status on File Code Status Date Activated Date Inactivated Comments Full Code 08/09/2016 2:37 PM 08/09/2016 7:17 PM This order reflects the patients wishes and were consensually agreed upon. Care Teams Wallpaper Inspector And Shipper Relationship Specialty Start Date End Date Jerzy Glez MD [address] [place] [address] PCP - General 12/30/99 documented as of this encounter
--- OUTSIDE RECORDS SUMMARY | 2023-02-05 13:20 | External Medical Summary | Summary of Care ---
Author Name Unknown Organization [facility] Address [address] [place] [address] Phone [phone] Care Team Providers Care Lace Stripper Name Role Phone Sabrina Glez MD Primary Care Provider [phone] Reason for Visit * Reason Onset Date Comments Medication Refill 09/25/2022 Encounter Details Date Type Department Care Team Description 09/25/2022 Refill [facility] [address] [place] [address] Sabrina Glez MD [address] [place] [address] Chronic right-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); Other closed fracture of thoracic vertebra, unspecified thoracic vertebral level, sequela Allergies No known active allergiesdocumented as of this encounter (statuses as of 09/27/2022) Medications Medication Sig Dispensed Refills Start Date End Date Status Blood Glucose Monitoring Suppl (ONETOUCH VERIO) w/Device KITIndications:DM type 2, not at goal ([facility]),Type 2 diabetes mellitus with hemoglobin A1c goal of less than 8.0% ([facility]) Use to check sugar daily E11.9 1 Kit 0 01/31/2019 Active Glucose Blood (ONETOUCH VERIO) STRPIndications:D M type 2, not at goal ([facility]),Type 2 diabetes mellitus with hemoglobin A1c goal of less than 8.0% ([facility]) Use up check sugar daily E11.9 100 Strip 11 01/31/2019 Active CHIKA RIVASYO MABEL MISCIndications:D M type 2, not at goal ([facility]),Type 2 diabetes mellitus with hemoglobin A1c goal of less than 8.0% ([facility]) Use to test blood sugar once [...] Active metFORMIN HCl 500 MG Oral Tablet (Glucophage)Indic ations:DM type 2, not at goal ([facility]) TAKE 1 TABLET BY MOUTH 2 [...] before bedtime. 120 Tablet 0 09/27/2022 Active oxyCODONE HCl 10 MG Oral Tablet (Roxicodone)Indic ations:Other closed fracture of thoracic vertebra, unspecified thoracic vertebral level, sequela Take 1 Tablet by mouth in the morning and 1 Tablet at noon and 1 Tablet in the evening and 1 Tablet before bedtime. 120 Tablet 0 09/01/2022 3 Discontinue d(Refill) documented as of this encounter (statuses as of 09/27/2022) Active Problems Problem Noted Date Cirrhosis of [...] as of this encounter (statuses as of 09/27/2022) Resolved Problems Problem Noted Date Resolved Date [...] as of this encounter (statuses as of 09/27/2022) Immunizations Name Administration Dates Next Due COVID-19 mRNA, LNP-s, No Pre serve, 2-Dose Series ([employer]) 02/02/2021,06/14/2020,05/24/2020 COVID-19, LNP-s, No Preserve , Ellis-sucrose, [...] Telephone Encounter - Sabrina Glez MD - 09/27/2022 5:11 PM EDTSigned Prescriptions: Disp Refills oxyCODONE HCl 10 MG Oral Tablet (Roxicodon*120 Ta*0 Sig: Take 1 Tablet by mouth in the morning and 1 Tablet at noon and 1 Tablet in the evening and 1 Tablet before bedtime. Authorizing Provider: SABRINA GLEZ * Telephone Encounter - Callie Myrick [facility] - 09/27/2022 12:30 PM EDT Pending Prescriptions: Disp Refills oxyCODONE HCl 10 MG Oral Tablet (Roxicodon*120 Ta*0 Sig: Take 1 Tablet by mouth in the morning and 1 Tablet at noon and 1 Tablet in the evening and 1 Tablet before bedtime. * Telephone Encounter - Callie Myrick [facility] - 09/27/2022 12:27 PM EDT I have reviewed the patients controlled substance dispensing history in the Prescription Drug Monitoring Program in compliance with the [facility] regulations before prescribing a controlled substance. PDMP checked on 09/27/2022. Pending Prescriptions: Disp Refills oxyCODONE HCl 10 MG Oral Tablet (Roxicodo*120 Ta*0 Sig: Take 1 Tablet by mouth in the morning and 1 Tablet at noon and 1 Tablet in the evening and 1 Tablet before bedtime. Last Visit: 07/26/2022 (in office), 04/18/2020 (telemedicine) Next Visit: Visit date not found Date medication was last filled: 09/01/22 Date medication is due for refill: 09/30/22 Pharmacy: [id number] [address] [place] [address] Is this request for a controlled substance? [...] SEE COMMENT Please approve if appropriate. Thank You Callie Myrick PharmD Clinical Pharmacist [facility] ([facility]) [phone] / [phone] 09/27/2022, 12:29 PM documented in this encounter Plan of Treatment Upcoming Encounters Date Type Specialty Care Team Description 10/13/2022 Hospital Encounter Surgery Wil Simon, DO [address] [place] [address] 10/13/2022 Surgery Surgery Wil Simon, DO [address] [place] [address] INJECTION SPINE LUMBAR OR SACRAL 10/22/2022 Office Visit Cardiology Jean-Paul Sumner MD [address] [place] [address] 11/15/2022 Office Visit Urology Jackson Rosenberg Jr., MD [address] [place] [address] 12/14/2022 Office Visit Dermatology Darby Girard PA-C [address] [place] [address] 02/21/2023 Office Visit Gastroenterology Kaity Comer, DO [address] [place] [address] Scheduled Procedures Name Priority Associated Diagnoses Date/Ti [...] Additional history exists CKD PHOS USE SMARTSET 81059 08/17/20222 05/2021, 03/06/2020, 02/14/2020, Additional history exists HbA1c 10/03/2022 04/05/2022, 07/27, 02/16/2021, Additional history exists Influenza Vaccine (FLU shot) (#1) 2022 01/20/2022, 12/19/2020, 12/08/2019, Additional history exists GFR 02/16/2023 08/16/2022, 05/0 03/2022, 05/21/2022, Additional history exists CKD HGB USE SMARTSET 31707 08/17/202308/16, 08/16/2022, 02/09/2022, Additional history exists Lipid [...] this encounter Medical Devices Implanted Type Area Oven Attendant Device Identifier Shelf Expiration Date Model / Serial / Lot Lens 19.0 [id number] - [id number] - [id number] Implanted:Qty: 1 on 08/09/2016 by Madi Frederick MD at [facility] Right: Eye KIMMIE : SURGICAL 2018 [id number] / [id number] / documented as of this encounter Visit Diagnoses Diagnosis Chronic right-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) Congestive heart failure, unspecified Other closed fracture of thoracic vertebra, unspecified thoracic vertebral level, sequela Lumbar radiculopathy Thoracic or lumbosacral neuritis or radiculitis, unspecified documented in this encounter Advance Directives Latest Code Status on File Code Status Date Activated Date Inactivated Comments Full Code 08/09/2016 2:37 PM 08/09/2016 7:17 PM This order reflects the patients wishes and were consensually agreed upon. Care Teams Lace Stripper Relationship Specialty Start Date End Date Sabrina Glez MD [address] [place] [address] PCP - General 12/30/99 documented as of this encounter
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
--- OUTSIDE RECORDS SUMMARY | 2023-02-05 13:20 | External Medical Summary | Summary of Care ---
Author Name Unknown Organization [facility] Address [address] [place] [address] Phone [phone] Care Team Providers Care Crank Hand Name Role Phone Jerzy Glez MD Primary Care Provider [phone] Reason for Visit * Auth/Cert Specialty Diagnoses / Procedures Referred By Swapnil caldwell Referred To Contact Diagnoses Lumbar radiculopathy Lumbar radiculopathy [M54.16] Procedures INJECT DX/THER SUBSTANCE INTERLAMINAR LUMBAR/SACRAL W IMAGE GUIDE INJECTION SPINE LUMBAR OR SACRAL Referral ID Status Reason Start Date Expiration Date Visits Re quested Visits Authorized [id number] Encounter Details Date Type Department Care Team Description 10/06/2022 Hospital Encounter OR [facility], Operating Room [facility] [address] [place] [phone] CouWil moreno, [address] [place] [address] Allergies No known active allergiesdocumented as of this encounter (statuses as of 10/06/2022) Medications Medication Sig Dispensed Refills Start Date End Date Status Blood Glucose Monitoring Suppl (ONETOUCH VERIO) w/Device KITIndications:DM type 2, not at goal (HCC),Type 2 diabetes mellitus with hemoglobin A1c goal of less than 8.0% ([facility]) Use to check sugar daily E11.9 1 [...] Oral Tablet Extended Release 24 Hour (toPROL XL)Indications:Delivery Recruiter ede right-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) Take 1 [...] TUESDAY ONLY. 14 Tablet 5 09/06/2022 Active metFORMIN HCl 500 MG Oral Tablet [...] as of this encounter (statuses as of 10/06/2022) Active Problems Problem Noted Date Cirrhosis of [...] as of this encounter (statuses as of 10/06/2022) Resolved Problems Problem Noted Date Resolved Date [...] as of this encounter (statuses as of 10/06/2022) Immunizations Name Administration Dates Next Due COVID-19 mRNA, LNP-s, No Pre serve, 2-Dose Series (iiko) 02/02/2021,06/14/2020,05/24/2020 COVID-19, LNP-s, No Preserve , Ellis-sucrose, [...] Sign Reading Time Taken Comments Blood Pressure 163/68 10/06/2022 10:58 AM EDT Pulse 59 10/06/2022 10:57 AM EDT Temperature 36.1 C (97 F) 10/06/2022 10:35 AM EDT Respiratory Rate 14 10/06/2022 10:57 AM EDT Oxygen Saturation 96% 10/06/2022 10:57 AM EDT Inhaled Oxygen Concentration - - Weight - - Height - - Body Mass Index - - documented in this encounter Discharge Instructions * Discharge Instr - AVS* Wil Simon DO - 10/06/2022 10:54 AM EDT [facility] [address] [place] [address] Discharge Date: 10/06/2022 You may call [facility] at [phone] during business hours. For after-hours emergencies call 911. Your attending physician at the time of your discharge was: Wil Simon DO [address] [facility] [address] The information below provides you with the instructions and the list of medications you need to betaking following discharge from the hospital. If you have any questions, please ask before leaving.Please carry this letter with you when you see your doctor in the clinic. Diet: Resume your normal diet If you are diabetic, follow your blood sugars closely for next 2-3 days as they are likely to be elevated. If you are having difficulty controlling your blood sugars call your family doctor or the physician that treats your diabetes. Activity: Do not engage in strenuous activity today Resume your normal activities tomorrow Do not soak in water for 24 hours. No swimming, hot tub or bath but showering is allowed. Do not use heat on the injection site for 24 hours. If uncomfortable ice may be helpful. Some injections may make your arms or legs weak for a few hours. Be extremely careful when walking or changing positions that you do not fall. Have someone assist you for the next 6 hours. If weakness or numbness becomes progressive CALL IMMEDIATELY or GO TO THE NEAREST EMERGENCY ROOM Keep a diary of your pain until seen in the office to help us determine how effective the injectionwas Do not restart physical therapy or chiropractic manipulation until 48 hours after your injection Call : If weakness or numbness suddenly becomes worse or become progressive If the injection site becomes red, swollen, warm to the touch, begins to bleed or drain fluid, or is excessively painful. If you have any questions Medications: Resume all the medications you were taking prior to your injection. Resume your anticoagulants tomorrow unless otherwise instructed by your family physician, senior sales operations manager or the anticoagulation clinic. Additional Instructions: Driving: . Date you may return to work or school: Follow Up: Call [phone] in 4 weeks. documented in this encounter Progress Notes * Wil Simon DO - 10/06/2022 10:54 AM EDT [facility] [address] [address] OUTPATIENT SURGERY DISCHARGE SUMMARY NOTE Name: Delvis Munoz Location: OR [facility]/OR Date: 10/06/2022 Time: 10:54 AM Surgery Date: 10/06/2022 Procedure: Procedure(s): INJECTION SPINE LUMBAR OR SACRAL No laterality found for procedure #1 Surgeon: Surgeon(s): Wil Simon DO Discharge Diagnosis: Lumbar radicular pain After examination of this patient, I have determined he is ready for discharge to home when the patient meets criteria. Discharge instructions were given to the patient. documented in this encounter H&P Notes * Wil Simon, DO - 10/06/2022 6:49 AM EDT Interventional Pain Pre-Procedure Assessment Name:Delvis Munoz Date:10/06/2022 Time:6:49 AM Procedure(s): Caudal epidural steroid injection Diagnosis: Lumbar radicular pain Pre-Procedure Assessment: Prior to the procedure, the patient was identified. The patient's history, medications and allergies were reviewed . The patient is competent. The risks and benefits of the proposed procedure and theplanned sedation were discussed with the patient. All questions were answered and informed consent for the procedure was obtained. Prior to Admission medications Medication Sig Last Dose Discont. oxyCODONE HCl 10 MG Oral Tablet (Roxicodone) Take 1 Tablet by mouth in the morning and 1 Tablet at noon and 1 Tablet in the evening and 1 Tablet before bedtime. metFORMIN HCl 500 MG Oral Tablet (Glucophage) TAKE 1 TABLET BY MOUTH 2 TIMES A DAY WITH MORNING ANDEVENING MEALS Ciprofloxacin HCl 500 MG Oral Tablet (Cipro) Take 1 Tablet by mouth in the morning and 1 Tablet before bedtime. Start the day before the biopsy. Furosemide 20 MG Oral Tablet (Lasix) TAKE HALF A TABLET BY MOUTH ONCE A DAY ON TUESDAY, TUESDAY, AND TUESDAY ONLY. traZODone HCl 100 MG Oral Tablet (Desyrel) Take 1 Tablet by mouth at bedtime. LORazepam 0.5 MG Oral Tablet (Ativan) 2 tabs 45 minutes before MRI. Repeat 1 tab 15 minutes before MRI if needed Patient not taking: Reported on 08/16/2022 Losartan Potassium 50 MG Oral Tablet (Cozaar) Take 1 Tablet by mouth in the morning. Metoprolol Succinate ER 25 MG Oral Tablet Extended Release 24 Hour (toPROL XL) Take 1 Tablet by mouth in the morning. Blood Glucose Monitoring Suppl (ONETORestlet VERIO) w/Device KIT Use to check sugar daily E11.9 Glucose Blood (ONETOUCH VERIO) STRP Use up check sugar daily E11.9 ONETOUCH DELICA LANCETS FINE MISC Use to test blood sugar once daily- dx E11.9 Review of patient's allergies indicates: No Known Allergies There were no vitals taken for this visit. Physical Exam: Mental Status Examination: alert and oriented. Airway Examination: normal oropharyngeal airway and neck mobility. Respiratory Examination: clear to auscultation. CV Examination: normal. ASA Grade: II - A patient with mild systemic disease. After reviewing the risks and benefits, the patient was deemed in satisfactory condition to undergothe procedure. The anesthesia plan was to use local anesthesia. Wil Simon DO 10/06/2022 documented in this encounter Nursing Notes * Piedad Das RN - 10/06/2022 10:59 AM EDT Visited by Dr Simon. Verbalized understanding of discharge directions. Ready for discharge to home. * Aiyana Roca RN - 10/06/2022 10:54 AM EDT Band aid applied to area patient transferred to pacu 11 via wheelchair * Aiyana Roca RN - 10/06/2022 10:49 AM EDT Patient tolerating pain management injection well. documented in this encounter OR Notes * OR Surgeon - Wil Simon DO - 10/06/2022 10:55 AM EDT OPERATIVE RECORD OR [facility], Operating Room [facility] [address] [facility] [place] [address] Delvis Munoz : 1950 DOS: 10/06/2022 SERVICE: INTERVENTIONAL PAIN MANAGEMENT PRE-OP DIAGNOSIS: Lumbar radicular pain. POST-OP DIAGNOSIS: Same. SURGEON: Wil Simon DO. ASSISTANTS: None. ANESTHESIA: 2 cubic centimeters of 1% lidocaine. OPERATION: Caudal epidural steroid injection. FINDINGS: No intraoperative findings. ESTIMATED BLOOD LOSS: None. DRAINS: There were no drains placed. FLUIDS: No IV fluids. URINE OUTPUT: None. SPECIMEN: No specimens collected. COMPLICATIONS: None. CONDITION: Good. INDICATIONS AND HISTORY: Delvis Munoz presents in anticipation of undergoing epidural steroid injection for persistent low back and lower extremity radicular pain refractory to conservative treatment. The injection procedure was reviewed, as well as the risks of bleeding, infection, headache, nerveor spinal cord injury, worsening pain, or steroid side effects. DESCRIPTION OF OPERATION: After obtaining appropriate informed consent, Delvis Munoz was taken to the fluoroscopy suite, placed in a prone position. Time-out was taken to properly identify the patient and procedure, and the sacral hiatus was identified and the overlying skin sterilely prepped with ChloraPrep and draped. 1% lidocaine, 2 cubic centimeters, was infiltrated in skin and subcutaneous tissue and a #25 gauge, 3-1/2 inch spinal needle was directed with fluoroscopic guidance through the sacral hiatus, into the sacral canal without pain or paresthesia. After negative aspiration for blood or cerebrospinal fluid, Omnipaque 180, 0.5 cubic centimeter was easily injected, showed appropriate epidural spread in P-A and lateral fluoroscopic views. There was no evidence of intravascular or subarachnoid spread of contrast. Kenalog 40 mg with 4 cubic centimeters of preservative-free normal saline was slowly and easily injected without pain. There was appropriate washout of contrast. The needle was removed. Patient tolerated procedure well. Delvis Munoz will be re-evaluated by phone in approximately 4 weeks, and was given appropriate discharge instructions following postprocedure monitoring. Wil Simon DO 10/06/2022 10:55 AM documented in this encounter Plan of Treatment Upcoming Encounters Date Type Specialty Care Team Description 10/07/2022 [facility] [address] [facility] [address] 10/22/2022 Office Visit Cardiology Jean-Paul Sumner MD [address] [facility] [place] [address] 11/15/2022 Office Visit Urology Shakira Arriaga, Jackson Pena MD [address] [place] [address] 12/14/2022 Office Visit Dermatology Darby Girard PA-C [address] [place] [address] 02/21/2023 Office Visit Gastroenterology Kaity Comer, [address] [place] [address] Scheduled Procedures Name Priority Associated Diagnoses Date/Ti me INJECTION SPINE LUMBAR OR SACRAL Lumbar radiculopathy 10/06/2022 10:48 AM EDT ESOPHAGOGASTRODUODENOSCOPY ( EGD), FLEXIBLE, TRANSORAL, [...] Additional history exists CKD PHOS USE SMARTSET 48773 08/17/202207/272, 03/06/2020, 02/14/2020, Additional history exists HbA1c 10/03/2022 04/05/2022, 07/27, 02/16/2021, Additional history exists Influenza Vaccine (FLU shot) (#1) 2022 01/20/2022, 12/19/2020, 12/08/2019, Additional history exists GFR 02/16/2023 08/16/2022, 0503/2022, 05/21/2022, Additional history exists CKD HGB USE SMARTSET 29082 08/17/202308/16, 08/16/2022, 02/09/2022, Additional history exists Lipid [...] this encounter Medical Devices Implanted Type Area Log Handling Equipment Operator Device Identifier Shelf Expiration Date Model / Serial / Lot Lens 19.0 [id number] - [id number] - [id number] Implanted:Qty: 1 on 08/09/2016 by Madi Frederick MD at OR [facility] Right: Eye KIMMIE : SURGICAL 2018 [id number] / [id number] / documented as of this encounter Procedures Procedure Name Priority Date/Time Associated Diagnosis Comments FLUORO INTERVENTIONAL PAIN PROCEDURE NONBILLABLE Routine 10/06/2022 10:57 AM EDT documented in this encounter Results * FLUORO INTERVENTIONAL PAIN PROCEDURE NONBILLABLE (10/06/2022 10:57 AM EDT) Narrative Scheduling, Silent - 10/06/2022 10:58 AM EDT This procedure will not be read by a Radiologist. Please see operative note. Wil Simon DO RAD FLUOROSCOPY documented in this encounter Administered Medications Inactive Administered Medications - up to 3 most recent administrations Medication Order MAR Action Action Date Dose Rate Site Iohexol (Omnipaque 180) inj 0.5 mL 0.5 mL, Injection, ONCE, On Tue10/06/22 at 1115, For 1 dose Given 10/06/2022 10:51 AM EDT 0.5 mL lidocaine 1 % inj 20 mg 20 mg (2 mL), Subcutaneous, ONCE, On Tue10/06/22 at 1115, For 1 dose Given 10/06/2022 10:48 AM EDT 20 mg Other-Specify Triamcinolone Acetonide (Kenalog) 40 MG/ML inj 40 mg 40 mg, Injection, ONCE, On Tue10/06/22 at 1115, For 1 dose Given 10/06/2022 10:52 AM EDT 40 mg documented in this encounter Active and Recently Administered Medications Times are shown in EDT. Scheduled Medication Order 10/04/2022 10/05/2022 10/06/2022 Iohexol (Omnipaque 180) inj 0.5 mL (COMPLETED) 0.5 mL, Injection, ONCE, On Tue10/06/22 at 1115, For 1 dose 1051 (Given - Provid er: Aiyana Roca RN) lidocaine 1 % inj 20 mg (COMPLETED) 20 mg (2 mL), Subcutaneous, ONCE, On Tue10/06/22 at 1115, For 1 dose 1048 (Given - Provid er: Aiyana Roca RN - Comment: caudal) Triamcinolone Acetonide (Kenalog) 40 MG/ML inj 40 mg (COMPLETED) 40 mg, Injection, ONCE, On Tue10/06/22 at 1115, For 1 dose 1052 (Given - Provid er: Aiyana Roca RN) documented in this encounter Advance Directives Latest Code Status on File Code Status Date Activated Date Inactivated Comments Full Code 08/09/2016 2:37 PM 08/09/2016 7:17 PM This order reflects the patients wishes and were consensually agreed upon. Care Teams Crank Hand Relationship Specialty Start Date End Date Jerzy Glez MD [address] [place] [address] PCP - General 12/30/99 documented as of this encounter
--- OUTSIDE RECORDS SUMMARY | 2023-02-05 13:21 | External Medical Summary | Summary of Care ---
Author Name Unknown Organization [facility] Address [address] [place] [address] Phone [phone] Care Team Providers Care Plaster Pattern Caster Name Role Phone Sabrina Glez MD Primary Care Provider [phone] Reason for Visit * Reason Onset Date Comments Medication Refill 08/31/2022 Encounter Details Date Type Department Care Team Description 08/31/2022 Refill [facility] [address] [place] [address] Deb Camara MD [address] [place] [address] Persistent insomnia Allergies No known active allergiesdocumented as of this encounter (statuses as of 09/01/2022) Medications Medication Sig Dispensed Refills Start Date End Date Status Blood Glucose Monitoring Suppl (ONETOUCH VERIO) w/Device KITIndications:DM type 2, not at goal (HCC),Type 2 diabetes mellitus with hemoglobin A1c goal of less than 8.0% ([facility]) Use to check sugar daily E11.9 1 Kit 0 01/31/2019 Active Glucose Blood (ONETOUCH VERIO) STRPIndications:DM type 2, not at goal (HCC),Type 2 diabetes mellitus with hemoglobin A1c goal of less than 8.0% (HCC) Use up check sugar daily E11.9 100 Strip 11 01/31/2019 Active CHIKA IRVASYO FINE MISCIndications:DM type 2, not at goal (HCC),Type 2 diabetes mellitus with hemoglobin A1c goal of less than 8.0% (HCC) Use to test blood sugar once daily- dx E11.9 1 Each 5 01/31/2019 Active Furosemide 20 MG Oral Tablet (Lasix)Indications :Chronic right-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) 20 mg every daily plus one additional one day per week and as directed for weight gain greater than 4 lb 140 Tablet 3 02/03/2022 Active metFORMIN HCl 500 MG Oral Tablet (Glucophage)Indica tions:DM type 2, not at goal (HCC) Take 1 Tablet by mouth 2 times a day with morning and evening meals. 180 Tablet 1 03/25/2022 Active Metoprolol Succinate ER 25 MG Oral Tablet Extended Release 24 Hour (toPROL XL)Indications:Chr onic right-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) Take 1 Tablet by mouth in the morning. 90 Tablet 3 04/08/2022 Active Losartan Potassium 50 MG Oral Tablet (Cozaar) Take 1 Tablet by mouth in the morning. 0 Active LORazepam 0.5 MG Oral Tablet (Ativan)Indication s:Anxiety 2 tabs 45 minutes before MRI. Repeat 1 tab 15 minutes before MRI if needed 3 Tablet 0 07/20/2022 Active Additional Information Patient not taking.Reported on 08/16/2022 methylPREDNISolone 4 MG Oral Tablet Therapy Pack (Medrol Dosepack)Indicatio ns:Left lumbar radiculopathy follow package directions 21 Tablet 0 07/26/2022 Active Additional Information Patient not taking.Reported on 08/16/2022 oxyCODONE HCl 10 MG Oral Tablet (Roxicodone)Indica tions:Other closed fracture of thoracic vertebra, unspecified thoracic vertebral level, sequela Take 1 Tablet by mouth in the morning and 1 Tablet at noon and 1 Tablet in the evening and 1 Tablet before bedtime. 120 Tablet 0 07/31/2022 Active traZODone HCl 100 MG Oral Tablet (Desyrel)Indicatio ns:Persistent insomnia Take 1 Tablet by mouth at bedtime. 90 Tablet 3 09/01/2022 Active traZODone HCl 100 MG Oral Tablet (Desyrel)Indicatio ns:Persistent insomnia Take 1 Tablet by mouth at bedtime. 90 Tablet 3 07/26/2022 3 Discontinue d(Refill) documented as of this encounter (statuses as of 09/01/2022) Active Problems Problem Noted Date Cirrhosis of [...] as of this encounter (statuses as of 09/01/2022) Resolved Problems Problem Noted Date Resolved Date [...] as of this encounter (statuses as of 09/01/2022) Immunizations Name Administration Dates Next Due COVID-19 [...] encounter Miscellaneous Notes * Telephone Encounter - Semaj Brown [facility] - 09/01/2022 1:42 PM EDT Signed Prescriptions: Disp Refills traZODone HCl 100 MG Oral Tablet (Desyrel) 90 Tab*3 Sig: Take 1 Tablet by mouth at bedtime.Authorizing Provider: SABRINA GLEZ User: SEMAJ BROWN- documented in this encounter Plan of Treatment Upcoming Encounters Date Type Specialty Care Team Description 09/14/2022 Office Visit Pain Medicine Wil Simon DO [address] [place] [address] 09/22/2022 Office Visit Urology Jackson Rosenberg Jr., MD [address] [place] [address] 10/22/2022 Office Visit Cardiology Jean-Paul Sumner MD [address] [place] [address] 12/14/2022 Office Visit Dermatology Darby Girard PA-C [address] [place] [address] 02/21/2023 Office Visit Gastroenterology Kaity Comer DO [address] [place] [address] Scheduled Procedures Name Priority Associated Diagnoses Date/Ti [...] Additional history exists COVID-19 Vaccine (5 - Booster for Pfizer series) 12/03/2021 10/08/2021, 02/02/2021, 06/14/2020, Additional history exists COLONOSCOPY-EVERY 3 YRS AGES 18-100 01/30/2022 01/30/2019, 01/30/2019, 08/06/2013, Additional history exists Yearly B-12 02/16/2022 02/16/2021, 01/26, 05/18/2018 Albumin/Creatinine Ratio 08/17/2022 022, 07/15/2020, 06/19/2020, Additional history exists CKD PHOS USE SMARTSET 44200 08/17/202207/27, 03/06/2020, 02/14/2020, Additional history exists HbA1c 10/03/2022 04/05/2022, 07/27, 02/16/2021, Additional history exists GFR 02/16/2023 08/16/2022, 05/0 03/2022, 05/21/2022, Additional history exists CKD HGB USE SMARTSET 14216 08/17/202308/16, 08/16/2022, 02/09/2022, Additional history exists Lipid [...] this encounter Medical Devices Implanted Type Area Tape Deck Installer Device Identifier Shelf Expiration Date Model / Serial / Lot Lens 19.0 [id number] - [id number] - [id number] Implanted:Qty: 1 on 08/09/2016 by Madi Frederick MD at OR [facility] Right: Eye KIMMIE : SURGICAL 2018 [id number] / [id number] / documented as of this encounter Visit Diagnoses Diagnosis Persistent insomnia Persistent disorder of initiating or maintaining sleep documented in this encounter Advance Directives Latest Code Status on File Code Status Date Activated Date Inactivated Comments Full Code 08/09/2016 2:37 PM 08/09/2016 7:17 PM This order reflects the patients wishes and were consensually agreed upon. Care Teams Plaster Pattern Caster Relationship Specialty Start Date End Date Sabrina Glez MD [address] [place] [address] PCP - General 12/30/99 documented as of this encounter
--- OUTSIDE RECORDS SUMMARY | 2023-02-05 13:21 | External Medical Summary | Summary of Care ---
Author Name Unknown Organization [facility] Address [address] [facility] [place] [address] Phone [phone] Care Team Providers Care Tool Planner Name Role Phone Jerzy Glez MD Primary Care Provider [phone] Encounter Details Date Type Department Care Team Description 08/09/2022 Telephone Orthopaedics [facility] [address] [place] [address] Christine Beltrán MD [address] [place] [address] Allergies No known active allergiesdocumented as of this encounter (statuses as of 09/23/2022) Medications Medication Sig Dispensed Refills Start Date [...] dx E11.9 1 Each 5 01/31/2019 Active metFORMIN HCl 500 MG Oral Tablet [...] follow package directions 21 Tablet 0 07/26/2022 3 Discontinue d(Medicatio n List Clean Up) documented as of this encounter (statuses as of 09/23/2022) Active Problems Problem Noted Date Cirrhosis of [...] as of this encounter (statuses as of 09/23/2022) Resolved Problems Problem Noted Date Resolved Date [...] as of this encounter (statuses as of 09/23/2022) Immunizations Name Administration Dates Next Due COVID-19 [...] Miscellaneous Notes * Telephone Encounter - ANDREINA Ulloa - 08/09/2022 2:12 PM EDT Called and left patient a voicemail to return call to schedule with Pain medicine. documented in this encounter Plan of Treatment Upcoming Encounters Date Type Specialty Care Team Description 10/13/2022 Hospital Encounter Surgery Wil Simon, DO [address] [place] [address] 10/13/2022 Surgery Surgery Wil Simon, DO [address] [place] [address] INJECTION SPINE LUMBAR OR SACRAL 10/22/2022 Office Visit Cardiology Jean-Paul Sumner MD [address] [place] [address] 11/15/2022 Office Visit Urology Jackson Rosenberg Jr., MD [address] [place] [address] 12/14/2022 Office Visit Dermatology Darby Girard PA-C [address] [place] [address] 02/21/2023 Office Visit Gastroenterology Kaity Comer, [address] [place] [address] Scheduled Procedures Name Priority Associated Diagnoses Date/Ti [...] Additional history exists CKD PHOS USE SMARTSET 28101 08/17/202207/27, 03/06/2020, 02/14/2020, Additional history exists HbA1c 10/03/2022 04/05/2022, 07/27, 02/16/2021, Additional history exists GFR 02/16/2023 08/16/2022, 05/0 03/2022, 05/21/2022, Additional history exists CKD HGB USE SMARTSET 69422 08/17/202308/16, 08/16/2022, 02/09/2022, Additional history exists Lipid [...] this encounter Medical Devices Implanted Type Area Credit Card Analyst Device Identifier Shelf Expiration Date Model / Serial / Lot Lens 19.0 [id number] - [id number] - [id number] Implanted:Qty: 1 on 08/09/2016 by Madi Frederick MD at [facility] Right: Eye KIMMIE : SURGICAL 2018 [id number] / [id number] / documented as of this encounter Advance Directives Latest Code Status on File Code Status Date Activated Date Inactivated Comments Full Code 08/09/2016 2:37 PM 08/09/2016 7:17 PM This order reflects the patients wishes and were consensually agreed upon. Care Teams Tool Planner Relationship Specialty Start Date End Date Jerzy Glez MD [facility] [address] [place], [place] [id number] PCP - General 12/30/99 documented as of this encounter
--- OUTSIDE RECORDS SUMMARY | 2023-02-05 13:21 | External Medical Summary ---
Author Name Unknown Address Unknown Organization [id number]:[facility] – [place] - [address] [place] [address] Laboratory Report Ordering Provider Test Date Status ADRIAN JURADO 08/16/2022 11:44:16 Final Observation Date Value Abnormality Reference (Units ) Status MYCODE SPECIMEN-SST 08/16/2022 11:44:16 Freezing of extracted DNA, whole blood and/or serum. Final Performing Location [facility] - [address] [place] [address]
--- OUTSIDE RECORDS SUMMARY | 2023-02-05 13:21 | External Medical Summary | Summary of Care ---
Author Name Unknown Organization [facility] Address [address] [facility] [address] Phone [phone] Care Team Providers Care Networks Computer Consultant Name Role Phone Jerzy Glez MD Primary Care Provider [phone] Reason for Referral * Evaluate & Treat - Unlimited Visits (Within 3 days (urgent)) - Authorized Specialty Diagnoses / Procedures Referred By Swapnil caldwell Referred To Contact Dermatology Diagnoses Skin lesion Kaity Comer DO [email or web address] [place] [address] Referral ID Status Reason Start Date Expiration Date Visits Requested Visits Authorized [id number] Authorized Specialty Services Required 08/16/2022 999 999 Question Answer Referral Priority Within 3 days (urgent) Are you referring the patient for Mohs Surgery and have a current positive skin cancer biopsy result? No What is the reason for the patient referral? Rash/Skin Check/Eval of Lesion or Mole Comments History of skin cancer on ear previously. New mole that has been growing. Reason for Visit * Reason Comments Follow Up Cirrhosis Encounter Details Date Type Department Care Team Description 08/16/2022 Office Visit Hepatology, [facility] [address] [place] [address] Kaity Comer DO [address] [place] [address] Cirrhosis of liver with ascites, unspecified hepatic cirrhosis type (HCC)*; Skin lesion Allergies No known active allergiesdocumented as of this encounter (statuses as of 08/16/2022) Medications Medication Sig Dispensed Refills Start Date End Date Status Blood Glucose Monitoring Suppl (Pure[employer]impleLegal VERRevision [employer]) w/Device KITIndications:DM type 2, not at goal (HCC),Type 2 diabetes mellitus with hemoglobin A1c goal of less than 8.0% (HCC) Use to check sugar daily E11.9 1 Kit 0 01/31/2019 Active Glucose Blood (PurewireTOUCH VERRevision [employer]) STRPIndications:DM type 2, not at goal (HCC),Type [...] 01/31/2019 Active Furosemide 20 MG Oral Tablet (Lasix)Indications:C hronic right-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) 20 mg every daily plus one additional one day per week and as directed for weight gain greater than 4 lb 140 Tablet 3 02/03/2022 Active metFORMIN HCl 500 MG Oral Tablet (Glucophage)Indicati ons:DM type 2, not at goal (HCC) Take 1 Tablet by mouth 2 times a day with morning and evening meals. 180 Tablet 1 03/25/2022 Active Metoprolol Succinate ER 25 MG Oral Tablet Extended Release 24 Hour (toPROL XL)Indications:Chron ic right-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) Take 1 Tablet by mouth in the morning. 90 Tablet 3 04/08/2022 Active Losartan Potassium 50 MG Oral Tablet (Cozaar) Take 1 Tablet by mouth in the morning. 0 Active LORazepam 0.5 MG Oral Tablet (Ativan)Indications: Anxiety 2 tabs 45 minutes before MRI. Repeat 1 tab 15 minutes before MRI if needed 3 Tablet 0 07/20/2022 Active Additional Information Patient not taking.Reported on 08/16/2022 traZODone HCl 100 MG Oral Tablet (Desyrel)Indications :Persistent insomnia Take 1 Tablet by mouth at bedtime. 90 Tablet 3 07/26/2022 Active methylPREDNISolone 4 MG Oral Tablet Therapy Pack (Medrol Dosepack)Indications :Left lumbar radiculopathy follow package directions 21 Tablet 0 07/26/2022 Active Additional Information Patient not taking.Reported on 08/16/2022 oxyCODONE HCl 10 MG Oral Tablet (Roxicodone)Indicati ons:Other closed fracture of thoracic vertebra, unspecified thoracic vertebral level, sequela Take 1 Tablet by mouth in the morning and 1 Tablet at noon and 1 Tablet in the evening and 1 Tablet before bedtime. 120 Tablet 0 07/31/2022 Active documented as of this encounter (statuses as of 08/16/2022) Active Problems Problem Noted Date Cirrhosis of [...] as of this encounter (statuses as of 08/16/2022) Resolved Problems Problem Noted Date Resolved Date [...] as of this encounter (statuses as of 08/16/2022) Immunizations Name Administration Dates Next Due COVID-19 mRNA, LNP-s, No Pre serve, 2-Dose Series (EV Connect) 02/02/2021,06/14/2020,05/24/2020 COVID-19, LNP-s, No Preserve , Ellis-sucrose, [...] Sign Reading Time Taken Comments Blood Pressure 120/56 08/16/2022 11:00 AM EDT Pulse 66 08/16/2022 11:00 AM EDT Temperature 36.6 C (97.9 F) 08/16/2022 1 1:00 AM EDT Respiratory Rate 18 08/16/2022 11:0 0 AM EDT Oxygen Saturation - - Inhaled Oxygen Concentration - - Weight 90.1 kg (198 lb 11.2 oz) 023 11:00 AM EDT Height - - Body Mass Index 29.34 07/26/2022 10:03 AM EDT documented in this encounter Progress Notes * Kaity Comer, - 08/16/2022 11:11 AM EDT Hepatology Clinic Note Date of appointment: 08/16/2022 History of Present Illness: Delvis Munoz is a 72 year old M with PMH of obesity, HTN, HLD, DM2, andNASH cirrhosis c/b ascites. He initially was found to have cirrhosis on CT scan last year with ascites, however not enough to get paracentesis. Had EGD which did not show esophageal varices or portal hypertensive gastropathy. He underwent a liver biopsy in November 2021 which showed bridging fibrosis and focal nodule formation (incomplete cirrhosis, stage 3-4 of 4) in background of minimal to mild steatosis. Intrahepatocellular diastase resistant globules present. 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 Overall findings on liver biopsy consistent with MAYBERRY. No history of alcohol abuse or drug use. No family hx of liver disease. He was hospitalized back [place] [address] for heart failure exacerbations. He states he is doing well today. He has no new issues or concerns. He has had some weight loss. Saw his PCP for this. He lost 20 lbs. He states he has poor appetite but he started eating more after his PCP told him to. His weight is now steady. He denies any confusion, GI bleeding, ascites, LE swelling, abdominal pain. Currently, the patient feels otherwise well, without significant complaints. Currently asyptomatic,notably no N, V, D, RUQ pain,abdominal distension, altered mental status, leg swelling, GI bleeding(hematemesis, melena, hematochezia), jaundice, rashes,pruritus, fever, chills, change in color of urine or stools. No h/o weight loss or loss of appetite. No h/o fatigue. Decompensations: Varices: no Ascites: yes SBP: no HRS: no HE: no HCC: no Screening: EGD: 10/2021- no varices Colonoscopy 01/2019- 2 polyps removed Liver imagin02/2022- no liver lesions seen Review of systems: Positives in HPI. Negative for: Denies headache, lightheadedness, chest pain, cough, SOB, fever, chills, nausea, vomiting, heart burn, bloating, decreased appetite, early satiety, abdominal pain, diarrhea, fecal incontinence, constipation, rectal bleeding, weight loss, dysuria, frequency, incontinence, joint pain, back pain, weakness, fatigue, anxiety, depressed mood, difficulty sleeping. The remaining ROS reviewed and are negative. Past Medical History: Diagnosis Date Back pain, thoracic pain management with [facility] group BENIGN HYPERTENSION 03/30/2005 Closed fracture of seven ribs 08/12/2010 MEDICATION USE AGREEMENT 12/27/11 OTHER 10/2010 pulmonary nodule/ Follow CT for 2 years/ repeat 03/10 Other chronic sinusitis Tubular adenoma of colon 03/19/2013 Past Surgical History: Procedure Laterality Date COLONOSCOPY 05/2006 tubular adenoma - repeat 2011 COLONOSCOPY, DIAGNOSTIC (RECTUM) 08/06/2013 adenomatous polyps, melanosis, repeat 3 yrs/COLONOSCOPY FLEXIBLE PROXIMAL DIAGNOSTIC performed by Lane Davis MD at ENDOSCOPY [facility] COLONOSCOPY, DIAGNOSTIC (RECTUM) 01/30/2019 tubulovillous adenomas polyp, diverticulosis, repeat 3 yrs/COLONOSCOPY FLEXIBLE PROXIMAL DIAGNOSTICperformed by Lane Davis MD at ENDOSCOPY [facility] EGD, FLEXIBLE, DIAGNOSTIC 07/07/2020 GE junction possibly small varices, variant mucosa in the antrum, letitia-ampullary diverticulum /biopsy intestinal metaplasia / recall 1 year / ESOPHAGOGASTRODUODENOSCOPY (EGD), FLEXIBLE, TRANSORAL, DIAGNOSTIC performed by Lane Davis MD at ENDOSCOPY [facility] EGD, W/ENDOSCOPIC US N/A 11/18/2021 abnormal echogenicity of liver/biopsies of liver show bridging fibrosis and focal nodule formation in background of minimal to mild steatosis/intrahepatocellular diastase resistant globues present/ESO PHAGOGASTRODUODENOSCOPY (EGD), FLEXIBLE, TRANSORAL, ENDOSCOPIC ULTRASOUND performed by Rodolfo Gonsalez MD at OR [facility] INSERTION OF LENS PROSTHESIS Right 08/09/2016 INSERTION [...] by Madi Frederick MD at OR [facility] Family History Problem Relation Age of Onset Cancer None Diabetes Mother Diabetes Uncle (Unspecified) Stroke Mother Heart Disorder None Thyroid Disorder None Eye Problems None Patient denies HX AMD, glaucoma, retinal detachment or blindness Current Outpatient Medications Medication Sig Dispense Refill Blood Glucose Monitoring Suppl (Lela) w/Device KIT Use to check sugar daily E11.9 1 Kit 0 Glucose Blood (PurewireTOUCH VERRevision [employer]) STRP Use up check sugar daily E11.9 100 Strip 11 ONETOUCH DELICA LANCETS FINE MISC Use to test blood sugar once daily- dx E11.9 1 Each 5 metFORMIN HCl 500 MG Oral Tablet (Glucophage) Take 1 Tablet by mouth 2 times a day with morningand evening meals. 180 Tablet 1 Metoprolol Succinate ER 25 MG Oral Tablet [...] 1 Tablet before bedtime. 120 Tablet 0 Furosemide 20 MG Oral Tablet (Lasix) 20 mg every daily plus one additional one day per week andas directed for weight gain greater than 4 lb 140 Tablet 3 LORazepam 0.5 MG Oral Tablet (Ativan) 2 tabs 45 minutes before MRI. Repeat 1 tab 15 minutes before MRI if needed (Patient not taking: Reported on 08/16/2022) 3 Tablet 0 methylPREDNISolone 4 MG Oral Tablet Therapy Pack (Medrol Dosepack) follow package directions (Patient not taking: Reported on 08/16/2022) 21 Tablet 0 No current facility-administered medications for this visit. Review of patient's allergies indicates: No Known Allergies Physical Exam: vitals: BP 120/56 | Pulse 66 | Temp 36.6 C (97.9 F) (Infrared ) | Resp 18 | Wt 90.1 kg (198 lb 11.2 oz) | BMI 29.34 kg/m | BSA 2.09 m GENERAL: Well developed and well nourished in no acute distress. No notable sarcopenia. SKIN: No rashes, ulcers, jaundice or spider angiomata. Pale brown mole inside R ear. HEENT: Normocephalic, sclera anicteric NECK: Supple LUNGS: Clear to auscultation bilaterally, no respiratory distress or accessory muscles used. HEART: Regular rate & rhythm, no murmurs, rubs, or gallops present ABDOMEN: Normal bowel sounds, soft and nontender, no masses or hepatosplenomegaly. No appreciable ascites or fluid wave. EXTREMITIES: No palmar erythema, no lower extremity edema. NEURO: No lateralizing findings. Sensory/Motor grossly normal. No asterixis present on exam. Recent Labs: Reviewed MELD-Na score: 11 at 02/11/2022 2:12 PM Calculated from: Serum Creatinine: 1.5 mg/dL at 02/09/2022 10:08 AM Serum Sodium: 138 mmol/L (Using max of 137 mmol/L) at 02/09/2022 10:08 AM Total Bilirubin: 0.8 mg/dL (Using min of 1 mg/dL) at 02/11/2022 2:12 PM INR(ratio): 1.1 at 02/11/2022 2:12 PM Age: 71 years Recent Imaging Studies: Reviewed Abdominal US 03/02/2022: IMPRESSION: 1. Coursened liver echotexture and nodularity suggesting chronic liver disease/cirrhosis. No focal liver lesions are identified. 2. Status post cholecystectomy. 3. Small amount of ascites is noted. CTAP 2019:Perihepatic fluid collection corresponding to findings on ultrasound. Liver appears cirrhotic. Suggestion of peritoneal thickening/nodularity and adjacent stranding along the anterolateral right abdominal wall at the inferior right hepatic lobe. This may represent peritoneal disease or possibly findings from early cirrhosis and loculated ascites. Recommend MRI with and withoutcontrast for further evaluation. Recent Endoscopic Procedures: Reviewed Liver biopsy 11/2021: A. Left liver biopsy: Benign liver with bridging fibrosis and focal nodule formation (incomplete cirrhosis, stage 3-4 of 4) in background of minimal to mild steatosis. Intrahepatocellular diastase resistant globules present. See note. B. Right liver biopsy: Benign liver with bridging fibrosis and focal nodule formation (incomplete cirrhosis, stage 3-4 of 4) in background of minimal to mild steatosis. Intrahepatocellular diastase resistant globules present. Note: Tissue section of the liver biopsy revealed benign liver parenchyma which is adequate for review. There is mild to focal moderate nonspecific mixed inflammation in portal tracts along with focal bile ductular reaction. There is focal mild interface inflammation. No specific feature of bile duct injury was identified. The lobule reveals minimal to mild steatosis, about 5% fat along with focal finding consistent withMallory body formation. The hepatocytes appear regenerative and reactive. There is focal mild sinusoidal dilatation. Trichrome and reticulin stain reveals bridging fibrosis with focal nodule formation. Iron stain reveals minimal/trace , much less than grade 1 of 4, iron deposition very focally in few hepatocytes. PAS-Dstain reveals focal scattered intrahepatocellular diastase resistant globules. The overall histological findings would be most consistent with an advanced stage fatty liver disease with additional features which need clinical correlation to exclude alcohol or drug induced liver injury. Clinical and serology correlation. EGD 11/2021: Impression: - Normal esophagus. - Normal stomach. - Normal duodenal bulb and second portion of the duodenum. [id number]:Diverticulosis in the sigmoid colon. - Two 4 to 5 mm polyps in the ascending colon, removed with a cold snare. Resected and retrieved. - A few non-bleeding colonic angiodysplastic lesions. - The examination was otherwise normal. Colonoscopy 2013:Four 2 to 3 mm polyps in the transverse colon and in the ascending colon. Resected and retrieved. - One 4 mm polyp in the sigmoid colon. Resected and retrieved. - All polyps were placed in the same bottle. - Melanosis in the colon. - The examination was otherwise normal Colonoscopy 2006:One 2 mm polyp in the distal descending colon. Resected and retrieved. - The examination was otherwise normal. Assessment and plan: Delvis Munoz is a 71 year old M with PMH of obesity, HTN, HLD, DM2, and MAYBERRY cirrhosis c/b ascites.He initially was found to have cirrhosis on CT scan last year with ascites, however not enough to get paracentesis. Had EGD which did not show esophageal varices or portal hypertensive gastropathy. He underwent a liver biopsy in November which showed bridging fibrosis and focal nodule formation (incomplete cirrhosis, stage 3-4 of 4) in background of minimal to mild steatosis. Intrahepatocellulardiastase resistant globules present. 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 Overall findings on liver biopsy consistent with MAYBERRY. -Liver disease severity. Most recent MELD-Na is 11. He did have PI*MZ phenotype with normal A1AT levels. People with the MZ genotype do not have severe AATD but are genetic carriers. The MZ genotype is not associated with an increased risk for lung disease in nonsmokers. Higher risk is seen in MZ individuals who smoke. A slightly increased risk for liver disease has been seen in MZ populations. -Variceal screening: EGD 10/2021 without varices. Will plan to repeat in 2 years. -Fluid status: based on today's physical exam, the pt. has trace pedal edema and no ascites. He is currently on lasix 20 mg daily prescribed by cardiology for heart failure. Recommend 2 gram sodium diet. Will monitor for any ascites accumulation and adjust diuretics as needed. -Hepatic encephalopathy: based on today's examination, the pt. does not have asterixis. He has no history of HE. -Renal function: pt.'s most recent SCr was 1.5. Will monitor renal function periodically. -HCC screening. Pt.'s last liver imaging study was done in 02/2022 without any liver lesions. Pt will need HCC screening every 6 months with imaging in conjunction with an AFP. Abdominal US ordered now to be completed with AFP. -Avoid liver toxins including over the counter herbal supplements. May take Acetaminophen up to 2 grams a day. Avoid NSAIDS due to increased risk of GI bleeding and fluid retention. Avoid all alcohol. Patient encouraged to avoid benzodiazepines and opiate pain medications due to risk of precipitating HE. -Vaccination: will get HAV and HBV serologies and then vaccinate accordingly. -Transplant evaluation: MELD is currently 11. No need for transplant eval at this time. -Colorectal cancer screening: last colonoscopy in 2019. Repeat due in 5 years. -New enlarging mole inside R ear. History of skin cancer many years ago that was excised. Urgent dermatology referral placed. -Follow up in 6 months Kaity Comer DO Gastroenterology and Hepatology I spent a total of 40 minutes on the date of service in review of patient's record, and previously obtained information in person and appropriate medical visit, discussion and education of plan, withpatient and/or caregiver, placing orders for tests/referral/procedures as medically necessary and documentation of pertinent clinical information in patient's medical records for their visit today. documented in this encounter Nursing Notes * Eliceo Dietz RN - 08/16/2022 11:03 AM EDT Patient identified by full name and date of Chief Complaint Patient presents with Follow Up Cirrhosis Symptoms: NO symptoms Bowel Movement Frequency: every day Bowel Movement Consistency: formed Straining: no Rectal Pain: no Blood in Stool: No documented in this encounter Plan of Treatment Upcoming Encounters Date Type Specialty Care Team Description 08/16/2022 Laboratory Laboratory Leann Morin [address] [place] [id number] [employer] Other*[id number]; Hyperkalemia 08/24/2022 Imaging Radiology 09/14/2022 Office Visit Pain Medicine Wil Simon, [address] [place] [address] 09/22/2022 Office Visit Urology Jackson Rosenberg Jr., MD [address] [place] [address] 10/22/2022 Office Visit Cardiology Jean-Paul Sumner MD [address] [place] [address] 12/14/2022 Office Visit Dermatology Darby Girard PA-C [address] [place] [address] 02/21/2023 Office Visit Gastroenterology Kaity Comer, [address] [place] [address] Pending Results Name Type Priority Associated Diagnoses Date /Time HEPATIC FUNCTION PANEL Lab Routine Cirrhosis of liver with ascites, unspecified hepatic cirrhosis type (HCC) 08/16/2022 11:44 AM EDT CBC WITH WBC DIFFERENTIAL Lab Routine Cirrhosis of liver with ascites, unspecified hepatic cirrhosis type (HCC) 08/16/2022 11:44 AM EDT PT INR Lab Routine Cirrhosis of liver with ascites, unspecified hepatic cirrhosis type (HCC) 08/16/2022 11:44 AM EDT ALPHA-FETOPROTEIN TUMOR MARKER Lab Routine Cirrhosis of liver with ascites, unspecified hepatic cirrhosis type (HCC) 08/16/2022 11:44 AM EDT CBC Lab Routine Cirrhosis of liver with ascites, unspecified hepatic cirrhosis type (HCC) 08/16/2022 11:44 AM EDT DIFFERENTIAL, AUTOMATED Lab Routine Cirrhosis of liver with ascites, unspecified hepatic cirrhosis type (HCC) 08/16/2022 11:44 AM EDT Scheduled Orders Name Type Priority Associated Diagnoses Orde r Schedule US ABDOMEN LIMITED Medical Imaging Routine Cirrhosis of liver with ascites, unspecified hepatic cirrhosis type (HCC) Ordered: 08/16/2022 Scheduled Procedures Name Priority Associated Diagnoses Date/Ti me ESOPHAGOGASTRODUODENOSCOPY ( EGD), FLEXIBLE, TRANSORAL, DIAGNOSTIC Recall Intestinal metaplasia of stomach COLONOSCOPY FLEXIBLE PROXIMAL DIAGNOSTIC Recall History of colon polyps Scheduled Referrals Name Type Priority Associated Diagnoses Orde r Schedule DERMATOLOGY REFERRAL OP Referral Within 3 days (urgent) Skin lesion Ordered: 08/16/2022 Health Maintenance Due Date Last Done Comments [...] Additional history exists CKD PHOS USE SMARTSET 70037 08/17/202207/27, 03/06/2020, 02/14/2020, Additional history exists HgA1C 10/03/2022 04/05/2022, 07/27, 02/16/2021, Additional history exists GFR - Renal Function 01/26/2023 07/26/2022, 05/21/2022, 04/05/2022, Additional history exists CKD HGB USE SMARTSET 35882 02/09/202302/09, 02/09/2022, 08/20/2021, Additional history exists Lipid Panel 08/17/2026 08/17/2021, [...] this encounter Medical Devices Implanted Type Area [employer] Device Identifier Shelf Expiration Date Model / Serial / Lot Lens 19.0 [id number] - [id number] - [id number] Implanted:Qty: 1 on 08/09/2016 by Madi Frederick MD at OR [facility] Right: Eye KIMMIE : SURGICAL 2018 [id number] / [id number] / documented as of this encounter Visit Diagnoses Diagnosis Cirrhosis of liver with ascites, unspecified hepatic cirrhosis type (HCC)- Primary Skin lesion Unspecified disorder of skin and subcutaneous tissue [employer] Other*[id number] Hyperkalemia Hyperpotassemia documented in this encounter Advance Directives Latest Code Status on File Code Status Date Activated Date Inactivated Comments Full Code 08/09/2016 2:37 PM 08/09/2016 7:17 PM This order reflects the patients wishes and were consensually agreed upon. Care Teams Networks Computer Consultant Relationship Specialty Start Date End Date Jerzy Glez MD [address], [place] [id number] PCP - General 12/30/99 documented as of this encounter"
--- OUTSIDE RECORDS SUMMARY | 2023-02-05 13:21 | External Medical Summary | Summary of Care ---
Author Name Unknown Organization [facility] Address [address] [place] [address] Phone [phone] Care Team Providers Care Tarper Name Role Phone Jerzy Glez MD Primary Care Provider [phone] Reason for Visit * Reason Comments eRx-Medication Refill Encounter Details Date Type Department Care Team Description 09/05/2022 Refill Nephrology, [facility] [address] [facility] [place] [address] Diamond Jesus MD [address] [facility] [place] [address] Chronic right-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) Allergies No known active allergiesdocumented as of this encounter (statuses as of 09/06/2022) Medications Medication Sig Dispensed Refills Start Date End Date Status Blood Glucose Monitoring Suppl (ONETOUCH VERIO) w/Device KITIndications:DM type 2, not at goal (HCC),Type 2 diabetes mellitus with hemoglobin A1c goal of less than 8.0% (HCC) Use to check sugar daily E11.9 1 Kit 0 9 Active Glucose Blood (ONETOUCH VERIO) STRPIndications:DM type 2, not at goal (HCC),Type 2 diabetes mellitus with hemoglobin A1c goal of less than 8.0% (HCC) Use up check sugar daily E11.9 100 Strip 11 9 Active CHIKA ROGERS FINE MISCIndications:DM type 2, not at goal (HCC),Type 2 diabetes mellitus with hemoglobin A1c goal of less than 8.0% (HCC) Use to test blood sugar once daily- dx E11.9 1 Each 5 9 Active metFORMIN HCl 500 MG Oral Tablet (Glucophage)Indica tions:DM type 2, not at goal (HCC) Take 1 Tablet by mouth 2 times a day with morning and evening meals. 180 Tablet 1 2 Active Metoprolol Succinate ER 25 MG Oral [...] follow package directions 21 Tablet 0 3 Active Additional Information Patient not taking.Reported on 08/16/2022 oxyCODONE HCl 10 MG Oral Tablet (Roxicodone)Indica tions:Other closed fracture of thoracic vertebra, unspecified thoracic vertebral level, sequela Take 1 Tablet by mouth in the morning and 1 Tablet at noon and 1 Tablet in the evening and 1 Tablet before bedtime. 120 Tablet 0 3 Active traZODone HCl 100 MG Oral Tablet (Desyrel)Indicatio ns:Persistent insomnia Take 1 Tablet by mouth at bedtime. 90 Tablet 3 3 Active Furosemide 20 MG Oral Tablet (Lasix)Indications :Chronic right-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) TAKE HALF A TABLET BY MOUTH ONCE A DAY ON TUESDAY, TUESDAY, AND TUESDAY ONLY. 14 Tablet 5 3 Active Furosemide 20 MG Oral Tablet (Lasix)Indications :Chronic right-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) 20 mg every daily plus one additional one day per week and as directed for weight gain greater than 4 lb 140 Tablet 3 2 09/07/19 Discontinued documented as of this encounter (statuses as of 09/06/2022) Active Problems Problem Noted Date Cirrhosis of [...] as of this encounter (statuses as of 09/06/2022) Resolved Problems Problem Noted Date Resolved Date [...] as of this encounter (statuses as of 09/06/2022) Immunizations Name Administration Dates Next Due COVID-19 [...] Telephone Encounter - Diamond Jesus MD - 09/06/2022 12:19 PM EDTSigned Prescriptions: Disp Refills Furosemide 20 MG Oral Tablet (Lasix) 14 Tab*5 Sig: TAKE HALF A TABLET BY MOUTH ONCE A DAY ON TUESDAY, TUESDAY, AND TUESDAY ONLY. Authorizing Provider: DIAMOND JESUS * Telephone Encounter - Bee Parikh RN - 09/06/2022 9:05 AM EDTPending Prescriptions: Disp Refills Furosemide 20 MG Oral Tablet [Pharmacy Med*14 Tab*5 Sig: TAKE HALF A TABLET BY MOUTH ONCE A DAY ON TUESDAY, TUESDAY, AND TUESDAY ONLY. * Telephone Encounter - Bee Parikh RN - 09/06/2022 9:03 AM EDT Prescription request received from pharmacy pending. Please authorize. Last OV 12/22/21 Needs scheduled to be seen. Note sent to medical appointment scheduler. documented in this encounter Plan of Treatment Upcoming Encounters Date Type Specialty Care Team Description 09/14/2022 Office Visit Pain Medicine Wil Simon, DO [address] [place] [address] 09/22/2022 Office Visit Urology Jackson Rosenberg Jr., MD [address] [place] [address] 10/22/2022 Office Visit Cardiology Jean-Paul Sumner MD [address] [place] [address] 12/14/2022 Office Visit Dermatology Darby Girard PA-C [address] [place] [address] 02/21/2023 Office Visit Gastroenterology Kaity Comer, DO [address] [place] [address] Scheduled Procedures Name Priority Associated Diagnoses Date/Ti [...] Additional history exists CKD PHOS USE SMARTSET 62273 08/17/202207/27, 03/06/2020, 02/14/2020, Additional history exists HbA1c 10/03/2022 04/05/2022, 07/27, 02/16/2021, Additional history exists GFR 02/16/2023 08/16/2022, 05/0 03/2022, 05/21/2022, Additional history exists CKD HGB USE SMARTSET 67542 08/17/202308/16, 08/16/2022, 02/09/2022, Additional history exists Lipid [...] this encounter Medical Devices Implanted Type Area Mortgage Sales Manager Device Identifier Shelf Expiration Date Model / Serial / Lot Lens 19.0 [id number] - [id number] - [id number] Implanted:Qty: 1 on 08/09/2016 by Madi Frederick MD at [facility] Right: Eye KIMMIE : SURGICAL 2018 [id number] / [id number] / documented as of this encounter Visit Diagnoses Diagnosis Chronic right-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) Congestive heart failure, unspecified documented in this encounter Advance Directives Latest Code Status on File Code Status Date Activated Date Inactivated Comments Full Code 08/09/2016 2:37 PM 08/09/2016 7:17 PM This order reflects the patients wishes and were consensually agreed upon. Care Teams Tarper Relationship Specialty Start Date End Date Jerzy Glez MD [address] [place], [place] [id number] PCP - General 12/30/99 documented as of this encounter
--- OUTSIDE RECORDS SUMMARY | 2023-02-05 13:21 | External Medical Summary | Summary of Care ---
Author Name Unknown Organization [facility] Address [address] [place] [address] Phone [phone] Care Team Providers Care Advanced Practice Professional Name Role Phone Sabrina Glez MD Primary Care Provider [phone] Reason for Visit * Reason Onset Date Comments Medication Refill 08/31/2022 Encounter Details Date Type Department Care Team Description 08/31/2022 Refill [facility] [address] [place] [id number] Sabrina Glez MD [address] [place] [address] Other closed fracture of thoracic vertebra, unspecified thoracic vertebral level, sequela Allergies No known active allergiesdocumented as of this encounter (statuses as of 09/01/2022) Medications Medication Sig Dispensed Refills Start Date End Date Status Blood Glucose Monitoring Suppl (ONETOUCH VERIO) w/Device KITIndications:DM type 2, not at goal ([facility]),Type 2 diabetes mellitus with hemoglobin A1c goal of less than 8.0% ([facility]) Use to check sugar daily E11.9 1 Kit 0 01/31/2019 Active Glucose Blood (ONETOUCH VERIO) STRPIndications:DM type 2, not at goal ([facility]),Type 2 diabetes mellitus with hemoglobin A1c goal of less than 8.0% ([facility]) Use up check sugar daily [...] (Glucophage)Indica tions:DM type 2, not at goal ([facility]) Take 1 Tablet by mouth 2 times [...] 90 Tablet 3 07/26/2022 3 Discontinue d(Refill) oxyCODONE HCl 10 MG Oral Tablet (Roxicodone)Indica tions:Other closed fracture of thoracic vertebra, unspecified thoracic vertebral level, sequela Take 1 Tablet by mouth in the morning and 1 Tablet at noon and 1 Tablet in the evening and 1 Tablet before bedtime. 120 Tablet 0 07/31/2022 3 Discontinue d(Refill) documented as of this [...] mRNA, LNP-s, No Pre serve, 2-Dose Series (Symform) 02/02/2021,06/14/2020,05/24/2020 COVID-19, LNP-s, No Preserve , Ellis-sucrose, [...] Telephone Encounter - Sabrina Glez MD - 09/01/2022 7:28 PM EDTSigned Prescriptions: Disp Refills oxyCODONE HCl 10 MG Oral Tablet (Roxicodon*120 Ta*0 Sig: Take 1 Tablet by mouth in the morning and 1 Tablet at noon and 1 Tablet in the evening and 1 Tablet before bedtime.Authorizing Provider: SABRINA GLEZ * Telephone Encounter - Semaj Porter [facility] - 09/01/2022 1:42 PM EDT Pending Prescriptions: Disp Refills oxyCODONE HCl 10 MG Oral Tablet (Roxicodon*120 Ta*0 Sig: Take 1 Tablet by mouth in the morning and 1 Tablet at noon and 1 Tablet in the evening and 1 Tablet before bedtime. * Telephone Encounter - Semaj Porter [facility] - 09/01/2022 1:41 PM EDT I have reviewed the patients controlled substance dispensing history in the Prescription Drug Monitoring Program in compliance with the [facility] regulations before prescribing a controlled substance. PDMP checked on 09/01/2022. Pending Prescriptions: Disp Refills oxyCODONE HCl 10 MG Oral Tablet (Roxicodo*120 Ta*0 Sig: Take 1 Tablet by mouth in the morning and 1 Tablet at noon and 1 Tablet in the evening and 1 Tablet before bedtime. Last Visit: 07/26/2022 (in office), 04/18/2020 (telemedicine) Next Visit: Visit date not found Date medication was last filled: 08/03/22 Date medication is due for refill: 09/01/22 Pharmacy: [id number] [address] [facility] Is this request for a controlled substance? [...] SEE COMMENT Please approve if appropriate. Thanks, Semaj Porter, PharmD Clinical Pharmacist [facility] ([facility]) [phone] 09/01/2022, 1:41 PM documented in this encounter Plan of Treatment Upcoming Encounters Date Type Specialty Care Team Description 09/14/2022 Office Visit Pain Medicine Wil Simon, [address] [place] [address] 09/22/2022 Office Visit Urology Jackson Rosenberg Jr., MD [address] [place] [id number] 10/22/2022 Office Visit Cardiology Jean-Paul Sumner MD [address] [place] [address] 12/14/2022 Office Visit Dermatology Darby Girard PA-C [address] [place] [address] 02/21/2023 Office Visit Gastroenterology Kaity Comer DO [address] [place] [address] Scheduled Procedures Name Priority Associated Diagnoses Date/Ti [...] Additional history exists CKD PHOS USE SMARTSET 68792 08/17/202207/27, 03/06/2020, 02/14/2020, Additional history exists HbA1c 10/03/2022 04/05/2022, 07/27, 02/16/2021, Additional history exists GFR 02/16/2023 08/16/2022, 05/0 03/2022, 05/21/2022, Additional history exists CKD HGB USE SMARTSET 01183 08/17/202308/16, 08/16/2022, 02/09/2022, Additional history exists Lipid [...] this encounter Medical Devices Implanted Type Area Evidence Custodian Device Identifier Shelf Expiration Date Model / Serial / Lot Lens 19.0 [id number] - [id number] - [id number] Implanted:Qty: 1 on 08/09/2016 by Madi Frederick MD at [facility] Right: Eye KIMMIE : SURGICAL 2018 [id number] / [id number] / documented as of this encounter Visit Diagnoses Diagnosis Other closed fracture of thoracic vertebra, unspecified thoracic vertebral level, sequela documented in this encounter Advance Directives Latest Code Status on File Code Status Date Activated Date Inactivated Comments Full Code 08/09/2016 2:37 PM 08/09/2016 7:17 PM This order reflects the patients wishes and were consensually agreed upon. Care Teams Advanced Practice Professional Relationship Specialty Start Date End Date Sabrina Glez MD [facility] [place] [address] PCP - General 12/30/99 documented as of this encounter
--- OUTSIDE RECORDS SUMMARY | 2023-02-05 13:21 | External Medical Summary ---
Author Name Unknown Address Unknown Organization [facility] [facility] [address] [place] [id number] Laboratory Report Ordering Provider Test Date Status MILO BUTLER 08/16/2022 11:44:16 Final Observation Date Value Abnormality Reference (Units ) Status WBC, Total 08/16/2022 11:44:16 13.82 Above high normal 4 .00-10.80 (K/uL) Final RBC 08/16/2022 11:44:16 4.04 4.50-5.25 (M/uL) Final Hemoglobin 08/16/2022 11:44:16 13.4 Below low normal 14 .0-16.8 (g/dL) Final HCT 08/16/2022 11:44:16 39.6 Below low normal 40. 0-48.4 (%) Final MCV 08/16/2022 11:44:16 98.0 82.0-99.5 (fL) Final MCH 08/16/2022 11:44:16 33.2 27.0-34.0 (pg) Final MCHC 08/16/2022 11:44:16 33.8 32.0-36.0 (g/dL) Final RDW 08/16/2022 11:44:16 14.3 11.5-15.5 (%) Final Platelets 08/16/2022 11:44:16 194 140-400 (K /uL) Final MPV 08/16/2022 11:44:16 11.9 6.6-11.1 ( fL) Final [facility] [address] [place] [address]
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
--- OUTSIDE RECORDS SUMMARY | 2023-02-05 13:21 | External Medical Summary | Summary of Care ---
Author Name Unknown Organization [facility] Address [address] [place] [address] Phone [phone] Care Team Providers Care Commercial Photographer Name Role Phone Jerzy Glez MD Primary Care Provider [phone] Reason for Visit * Reason Onset Date Comments Medication Refill 09/01/2022 Encounter Details Date Type Department Care Team Description 09/01/2022 Refill [facility] [address] [place] [id number] Jerzy Glez MD [address] [place] [address] Other closed fracture of thoracic [...] at bedtime. 90 Tablet 3 09/01/2022 Active documented as of this encounter (statuses [...] encounter Miscellaneous Notes * Telephone Encounter - Bob Nair [facility] - 09/01/2022 9:31 PM EDT Refused Prescriptions: Disp Refills oxyCODONE HCl 10 MG Oral Tablet (Roxicodon*120 Ta*0 Sig: Take 1Tablet by mouth in the morning and 1 Tablet at noon and 1 Tablet in the evening and 1 Tablet beforebedtime.Refused By: BOB NAIRReason for Refusal: Duplicate Request documented in this encounter Plan of Treatment Upcoming Encounters Date Type Specialty Care Team Description 09/14/2022 Office Visit Pain Medicine Wil Simon, [address] [place] [address] 09/22/2022 Office Visit Urology Jackson Rosenberg Jr., MD [address] [place] [id number] 10/22/2022 Office Visit Cardiology Jean-Paul Sumner MD [address] [place] [address] 12/14/2022 Office Visit Dermatology Darby Girard PA-C [address] [place] [address] 02/21/2023 Office Visit Gastroenterology Kaity Comer DO [address] [place] [address] Scheduled Procedures Name Priority Associated Diagnoses Date/Ti [...] Additional history exists CKD PHOS USE SMARTSET 42797 08/17/202207/27, 03/06/2020, 02/14/2020, Additional history exists HbA1c 10/03/2022 04/05/2022, 07/27, 02/16/2021, Additional history exists GFR 02/16/2023 08/16/2022, 05/0 03/2022, 05/21/2022, Additional history exists CKD HGB USE SMARTSET 26848 08/17/202308/16, 08/16/2022, 02/09/2022, Additional history exists Lipid [...] this encounter Medical Devices Implanted Type Area Wheel And Pinion Inspector Device Identifier Shelf Expiration Date Model / Serial / Lot Lens 19.0 [id number] - [id number] - [id number] Implanted:Qty: 1 on 08/09/2016 by Madi Frederick MD at [facility] Right: Eye KIMMIE : SURGICAL 2018 [id number] / [id number] / documented as of this encounter Visit Diagnoses Diagnosis Other closed fracture of thoracic vertebra, unspecified thoracic vertebral level, sequela documented in this encounter Advance Directives Latest Code Status on File Code Status Date Activated Date Inactivated Comments Full Code 08/09/2016 2:37 PM 08/09/2016 7:17 PM This order reflects the patients wishes and were consensually agreed upon. Care Teams Commercial Photographer Relationship Specialty Start Date End Date Jerzy Glez MD [address] [place] [address] PCP - General 12/30/99 documented as of this encounter
--- OUTSIDE RECORDS SUMMARY | 2023-02-05 13:21 | External Medical Summary | Summary of Care ---
Author Name Unknown Organization [facility] Address [address] [place] [facility] [place] [address] Phone [phone] Care Team Providers Care Glue Size Machine Operator Name Role Phone Jerzy Glze MD Primary Care Provider [phone] Reason for Visit * Reason Onset Date Comments Appointment 09/06/2022 Encounter Details Date Type Department Care Team Description 09/06/2022 Telephone Nephrology, [facility] [address] [place] [address] Kerri Garcia MD [address] [facility] [place] [address] Appointment Allergies No known active allergiesdocumented as [...] 08/16/2022 oxyCODONE HCl 10 MG Oral Tablet (Roxicodone)Stanfordti ons:Other closed fracture of thoracic vertebra, unspecified thoracic vertebral level, sequela Take 1 Tablet by mouth in the morning and 1 Tablet at noon and 1 Tablet in the evening and 1 Tablet before bedtime. 120 Tablet 0 09/01/2022 Active traZODone HCl 100 MG Oral Tablet (Desyrel)Indications [...] mRNA, LNP-s, No Pre serve, 2-Dose Series (Evi) 02/02/2021,06/14/2020,05/24/2020 COVID-19, LNP-s, No Preserve , Ellis-sucrose, [...] encounter Miscellaneous Notes * Telephone Encounter - Bee Parikh RN - 09/06/2022 9:06 AM EDT [employer]pper-Please call pt to schedule follow up appointment with Dr Garcia. Was due to be seen In May. documented in this encounter Plan of Treatment Upcoming Encounters Date Type Specialty Care Team Description 09/14/2022 Office Visit Pain Medicine Wil Simon, [address] [place] [address] 09/22/2022 Office Visit Urology Jackson Rosenberg Jr., MD [address] [place] [address] 10/22/2022 Office Visit Cardiology Jean-Paul Sumner MD [address] [place] [address] 12/14/2022 Office Visit Dermatology Darby Girard PA-C [address] [place] [address] 02/21/2023 Office Visit Gastroenterology Kaity Comer, [address] [place] [address] Scheduled Procedures Name Priority Associated Diagnoses Date/Ti [...] Additional history exists CKD PHOS USE SMARTSET 21320 08/17/202207/27, 03/06/2020, 02/14/2020, Additional history exists HbA1c 10/03/2022 04/05/2022, 07/27, 02/16/2021, Additional history exists GFR 02/16/2023 08/16/2022, 05/0 03/2022, 05/21/2022, Additional history exists CKD HGB USE SMARTSET 52400 08/17/202308/16, 08/16/2022, 02/09/2022, Additional history exists Lipid [...] this encounter Medical Devices Implanted Type Area Chemical Plant Technical Director Device Identifier Shelf Expiration Date Model / Serial / Lot Lens 19.0 Cz70bd - [id number] - [id number] Implanted:Qty: 1 on 08/09/2016 by Madi Frederick MD at [facility] Right: Eye KIMMIE : SURGICAL 2018 [id number] / [id number] / documented as of this encounter Advance Directives Latest Code Status on File Code Status Date Activated Date Inactivated Comments Full Code 08/09/2016 2:37 PM 08/09/2016 7:17 PM This order reflects the patients wishes and were consensually agreed upon. Care Teams Glue Size Machine Operator Relationship Specialty Start Date End Date Jerzy Glez MD [address] [place] [address] PCP - General 12/30/99 documented as of this encounter
--- OUTSIDE RECORDS SUMMARY | 2023-02-05 13:21 | External Medical Summary | Summary of Care ---
Author Name Unknown Organization [facility] Address [address] [place] [address] Phone [phone] Care Team Providers Care Store Administrator Name Role Phone Jerzy Glez MD Primary Care Provider [phone] Encounter Details Date Type Department Care Team Description 08/24/2022 Orders Only Outcomes Research Department [address] [place] [address] Lexus Gallardo CHRA [facility] Other*[id number] Allergies No known active allergiesdocumented as of this encounter (statuses as of 08/24/2022) Medications Medication Sig Dispensed Refills Start Date [...] as of this encounter (statuses as of 08/24/2022) Active Problems Problem Noted Date Cirrhosis of [...] as of this encounter (statuses as of 08/24/2022) Resolved Problems Problem Noted Date Resolved Date [...] as of this encounter (statuses as of 08/24/2022) Immunizations Name Administration Dates Next Due COVID-19 mRNA, LNP-s, No Pre serve, 2-Dose Series (SmartyContent) 02/02/2021,06/14/2020,05/24/2020 COVID-19, LNP-s, No Preserve , Ellis-sucrose, [...] Team Description 09/14/2022 Office Visit Pain Medicine Migueltiffanie Wil Alejandre, DO [address] [place] [address] 09/22/2022 Office Visit Urology Shakira Arriaga, Jackson Pena MD [address] [place] [address] 10/22/2022 Office Visit Cardiology Jean-Paul Sumner MD [address] [place] [address] 12/14/2022 Office Visit Dermatology Darby Girard PA-C [address] [place] [address] 02/21/2023 Office Visit Gastroenterology Kaity Comer, DO [address] [place] [address] Scheduled Orders Name Type Priority Associated Diagnoses Orde r Schedule MYCODE SUBSEQUENT ADULT Lab Routine [facility] Other*[id number] Every 6 Months for 2 Occurrences starting 08/24/2022 until 09/13/2023 Scheduled Procedures Name Priority Associated Diagnoses Date/Ti [...] Additional history exists CKD PHOS USE SMARTSET 88513 08/17/202207/27, 03/06/2020, 02/14/2020, Additional history exists HbA1c 10/03/2022 04/05/2022, 07/27, 02/16/2021, Additional history exists GFR 02/16/2023 08/16/2022, 05/0 03/2022, 05/21/2022, Additional history exists CKD HGB USE SMARTSET 28980 08/17/202308/16, 08/16/2022, 02/09/2022, Additional history exists Lipid [...] this encounter Medical Devices Implanted Type Area Chartered Wealth Manager Device Identifier Shelf Expiration Date Model / Serial / Lot Lens 19.0 Cz70bd - [id number] - [id number] Implanted:Qty: 1 on 08/09/2016 by Madi Frederick MD at [facility] Right: Eye KIMMIE : SURGICAL 2018 [id number] / [id number] / documented as of this encounter Visit Diagnoses Diagnosis [facility] [facility] Other*[id number] documented in this encounter Advance Directives Latest Code Status on File Code Status Date Activated Date Inactivated Comments Full Code 08/09/2016 2:37 PM 08/09/2016 7:17 PM This order reflects the patients wishes and were consensually agreed upon. Care Teams Store Administrator Relationship Specialty Start Date End Date Jerzy Glez MD [address] [place] [address] PCP - General 12/30/99 documented as of this encounter
--- OUTSIDE RECORDS SUMMARY | 2023-02-05 13:21 | External Medical Summary | Summary of Care ---
Author Name Unknown Organization [facility] Address [address] [facility] [place] [address] Phone [phone] Care Team Providers Care Transit Coach Operator Name Role Phone Jerzy Glez MD Primary Care Provider Encounter Details Date Type Department Care Team Description 08/31/2022 Telephone Hepatology, [facility] [address] [place] [address] Kaity Comer DO [address] [place] [address] Allergies No known active allergiesdocumented as of this encounter (statuses as of 08/31/2022) Medications Medication Sig Dispensed Refills Start Date [...] as of this encounter (statuses as of 08/31/2022) Active Problems Problem Noted Date Cirrhosis of [...] as of this encounter (statuses as of 08/31/2022) Resolved Problems Problem Noted Date Resolved Date [...] as of this encounter (statuses as of 08/31/2022) Immunizations Name Administration Dates Next Due COVID-19 mRNA, LNP-s, No Pre serve, 2-Dose Series (im3D) 02/02/2021,06/14/2020,05/24/2020 COVID-19, LNP-s, No Preserve , Ellis-sucrose, [...] encounter Miscellaneous Notes * Telephone Encounter - Kaity Comer DO - 08/31/2022 9:09 AM EDT Please let patient know recent abdominal ultrasound did not show any liver lesions. Will plan to repeat again in 6 months for HCC screening. Kaity Comer DO documented in this encounter Plan of Treatment Upcoming Encounters Date Type Specialty Care Team Description 09/14/2022 Office Visit Pain Medicine Wil Simon DO [address] [place] [address] 09/22/2022 Office Visit Urology Jackson Rosenberg Jr., MD [address] [place] [address] 10/22/2022 Office Visit Cardiology Jean-Paul Sumner MD [address] [place] [address] 12/14/2022 Office Visit Dermatology Darby Girard PA-C [address] [place] [address] 02/21/2023 Office Visit Gastroenterology Kaity Cmoer DO [address] [place] [address] Scheduled Procedures Name Priority Associated Diagnoses Date/Ti [...] Additional history exists CKD PHOS USE SMARTSET 42139 08/17/202207/27, 03/06/2020, 02/14/2020, Additional history exists HbA1c 10/03/2022 04/05/2022, 07/27, 02/16/2021, Additional history exists GFR 02/16/2023 08/16/2022, 05/0 03/2022, 05/21/2022, Additional history exists CKD HGB USE SMARTSET 37089 08/17/202308/16, 08/16/2022, 02/09/2022, Additional history exists Lipid [...] this encounter Medical Devices Implanted Type Area Teacher Asst Device Identifier Shelf Expiration Date Model / Serial / Lot Lens 19.0 Cz70bd - [id number] - [id number] Implanted:Qty: 1 on 08/09/2016 by Madi Frederick MD at [facility] Right: Eye KIMMIE : SURGICAL 2018 [id number] / [id number] / documented as of this encounter Advance Directives Latest Code Status on File Code Status Date Activated Date Inactivated Comments Full Code 08/09/2016 2:37 PM 08/09/2016 7:17 PM This order reflects the patients wishes and were consensually agreed upon. Care Teams Transit Coach Operator Relationship Specialty Start Date End Date Jerzy Glez MD [address] [place] [address] PCP - General 12/30/99 documented as of this encounter
--- OUTSIDE RECORDS SUMMARY | 2023-02-05 13:21 | External Medical Summary | Summary of Care ---
Author Name Unknown Organization [facility] Address [address] [place] [address] Phone [phone] Care Team Providers Care Electrical Technician Instructor Name Role Phone Jerzy Glez MD Primary Care Provider [phone] Reason for Visit * Reason Comments Back Pain * Evaluate & Treat - Unlimited Visits (Within 10 days (routine)) - Authorized Specialty Diagnoses / Procedures Referred By Swapnil t Referred To Contact Pain Management / Pain Medicine Diagnoses Left lumbar radiculopathy Multilevel degenerative disc disease Christine Beltrán MD [address] [place] [address] Referral ID Status Reason Start Date Expiration Date Visits Requested Visits Authorized [id number] Authorized Specialty Services Required 08/09/2022 999 999 Encounter Details Date Type Department Care Team Description 09/14/2022 Office Visit [facility], [facility] [address] [place] [address] Cousins, Wil Alejandre DO [address] [place] [address] Lumbar radicular pain* Allergies No known active allergiesdocumented as of this encounter (statuses as of 09/14/2022) Medications Medication Sig Dispensed Refills Start Date End Date Status Blood Glucose Monitoring Suppl (ONETOUCH VERIO) w/Device KITIndications:DM type 2, not at goal (HCC),Type 2 diabetes mellitus with hemoglobin A1c goal of less than 8.0% (HCC) Use to check sugar daily E11.9 1 Kit 0 01/31/2019 Active Glucose Blood (Element RobotTOUCH VERIO) STRPIndications:DM type 2, not at goal (HCC),Type 2 diabetes mellitus with hemoglobin A1c goal of less than 8.0% ([facility]) Use up check sugar daily E11.9 100 Strip 11 01/31/2019 Active ONETOUCH DELICA LANCETS FINE MISCIndications:DM type 2, not at goal ([facility]),Type 2 diabetes mellitus with hemoglobin A1c goal of less than 8.0% ([facility]) Use to test blood sugar once daily- dx E11.9 1 Each 5 01/31/2019 Active metFORMIN HCl 500 MG Oral Tablet (Glucophage)Indica tions:DM type 2, not at goal ([facility]) Take 1 Tablet by mouth 2 [...] TUESDAY ONLY. 14 Tablet 5 09/06/2022 Active methylPREDNISolone 4 MG Oral Tablet Therapy Pack (Medrol Dosepack)Indicatio ns:Left lumbar radiculopathy follow package directions 21 Tablet 0 07/26/2022 3 Discontinue d(Medicatio n List Clean Up) documented as of this encounter (statuses as of 09/14/2022) Active Problems Problem Noted Date Cirrhosis of [...] as of this encounter (statuses as of 09/14/2022) Resolved Problems Problem Noted Date Resolved Date [...] as of this encounter (statuses as of 09/14/2022) Immunizations Name Administration Dates Next Due COVID-19 mRNA, LNP-s, No Pre serve, 2-Dose Series ([employer]) 02/02/2021,06/14/2020,05/24/2020 COVID-19, LNP-s, No Preserve , [...] as of this encounter Progress Notes * Wil Simon, DO - 09/14/2022 10:11 AM EDT GENERAL HISTORY & PHYSICAL EXAMINATION - Anesthesia and Pain Service Name: Delvis Munoz Location: [facility], [facility] REFERRING PHYSICIAN: Christine Beltrán MD Thank you for referring Delvis Munoz. CHIEF COMPLAINT: Left back/leg pain HPI: Delvis Munoz is a 72 year old male who presents for evaluation of a 6 month history of persistent pain in the left lumbosacral and buttock area with radiation the posterior thigh and calf. He also has some numbness and tingling at times into the great and 2nd toe of his left foot. He denies motor weakness or bowel bladder dysfunction. There is no preceding trauma. Symptoms are much worse with standing and ambulation and significantly improved sitting. In the past although it would always resolve within a few days without much treatment. This is the most severe lasting episode that he is ever experience. Did complete six weeks physical therapy within last couple months. He also had a Medrol Dosepak recently which he did receive oral steroid taper a number of months ago which did initially help and was repeated more recently without much effect. MRI of the lumbar spine was completed and I did review report films the patient and his . PAST MEDICAL HISTORY: Past Medical History: Diagnosis Date Back pain, thoracic pain management with [facility] group BENIGN HYPERTENSION 03/30/2005 Closed fracture of seven ribs 08/12/2010 MEDICATION USE AGREEMENT 12/27/11 OTHER 10/2010 pulmonary nodule/ Follow CT for 2 years/ repeat 03/10 Other chronic sinusitis Tubular adenoma of colon 03/19/2013 Past Medical History - Pertinent Findings: PAST SURGICAL HISTORY: Past Surgical History: Procedure Laterality Date COLONOSCOPY 05/2006 tubular adenoma - repeat 2011 COLONOSCOPY, DIAGNOSTIC (RECTUM) 08/06/2013 adenomatous polyps, melanosis, repeat 3 yrs/COLONOSCOPY FLEXIBLE PROXIMAL DIAGNOSTIC performed by Lane Davis MD at [facility] COLONOSCOPY, DIAGNOSTIC (RECTUM) 01/30/2019 tubulovillous adenomas polyp, diverticulosis, repeat 3 yrs/COLONOSCOPY FLEXIBLE PROXIMAL DIAGNOSTICperformed by Lane Davis MD at END[facility]COPY [facility] EGD, FLEXIBLE, DIAGNOSTIC 07/07/2020 GE junction possibly small varices, variant mucosa in the antrum, letitia-ampullary diverticulum /biopsy intestinal metaplasia / recall 1 year / ESOPHAGOGASTRODUODENOSCOPY (EGD), FLEXIBLE, TRANSORAL, DIAGNOSTIC performed by Lane Davis MD at [facility]COPY [facility] EGD, W/ENDOSCOPIC US N/A 11/18/2021 abnormal echogenicity of liver/biopsies of liver show bridging fibrosis and focal nodule formation in background of minimal to mild steatosis/intrahepatocellular diastase resistant globues present/ESO PHAGOGASTRODUODENOSCOPY (EGD), FLEXIBLE, TRANSORAL, ENDOSCOPIC ULTRASOUND performed by Rodolfo Gonsalez MD at OR [facility] INSERTION OF LENS PROSTHESIS Right 08/09/2016 INSERTION [...] by Madi Frederick MD at OR [facility] FAMILY HISTORY: Family History Problem Relation Age of Onset Cancer None Diabetes Mother Diabetes Uncle (Unspecified) Stroke Mother Heart Disorder None Thyroid Disorder None Eye Problems None Patient denies HX AMD, glaucoma, retinal detachment or blindness Family History - Pertinent Findings: SOCIAL HISTORY: Social History Tobacco Use Smoking status: Former Packs/day: 1.00 Years: 20.00 Pack years: 20.00 Types: Cigarettes Quit date: 03/28/1986 Years since quittin.4 Smokeless tobacco: Never Vaping Use Vaping Use: Never used Substance Use Topics Alcohol use: No Drug use: No CURRENT MEDICATIONS: Note that discontinued and completed medications (per the MAR) continue to display for 24 hours. Ordered medications to be given in the future also display. Current Outpatient Medications Medication Sig Dispense Refill metFORMIN HCl 500 MG Oral Tablet (Glucophage) Take 1 Tablet by mouth 2 times a day with morningand evening meals. 180 Tablet 1 Metoprolol Succinate ER 25 MG Oral Tablet Extended Release 24 Hour (toPROL XL) Take 1 Tablet bymouth in the morning. 90 Tablet 3 Losartan Potassium 50 MG Oral Tablet (Cozaar) Take 1 Tablet by mouth in the morning. oxyCODONE HCl 10 MG Oral Tablet (Roxicodone) [...] TUESDAY, AND TUESDAY ONLY. 14 Tablet 5 Blood Glucose Monitoring Suppl (Element RobotTOUCH VERIO) w/Device KIT Use to check sugar daily E11.9 1 Kit 0 Glucose Blood (ONETOUCH VERIO) STRP Use up check sugar daily E11.9 100 Strip 11 ONETOUCH DELICA LANCETS FINE [facility] Use to test blood sugar once daily- dx E11.9 1 Each 5 LORazepam 0.5 MG Oral Tablet (Ativan) 2 tabs 45 minutes before MRI. Repeat 1 tab 15 minutes before MRI if needed (Patient not taking: Reported on 08/16/2022) 3 Tablet 0 No current facility-administered medications for this visit. ALLERGIES: Patient has no known allergies. ROS: Constitutional: Negative for fatigue, fever, appetite change, unexplained weight loss. ENT: Negative for hearing loss, sore throat. Respiratory: Negative for cough, shortness of breath, dyspnea. Musculoskeletal: Positive for left low back and leg pain Neurological: Negative for headaches, seizures. Positive for paresthesias left foot Genitourinary: Negative for dysuria, urinary frequency, hematuria. Hematologic/ Lymphatic: Negative for easy bleeding, bruising, lymphadenopathy. Gastrointestinal: Negative for abdominal pain, nausea, vomiting, constipation, diarrhea. Cardiovascular: Negative for chest pain, palpitations, ankle swelling, orthopnea. PHYSICAL EXAMINATION: Most Recent Vital Signs: There were no vitals filed for this visit. General Appearance: Patient appears to be about stated age, pleasant and cooperative with normal affect. HEENT: head normocephalic, pupils equal round and reactive to light and accommodation, EOMI, hearing intact and equal bilaterally and nose clear, throat normal Heart: regular rate and rhythm Lungs: Clear to Auscultation MS: He can stand ambulate without gait abnormality. He has +5 over 5 motor function in lower extremities. There are no gross sensory deficits noted. No pain with straight leg raising. Does not have pain with range of motion testing of the hip or palpation the sacroiliac joint or trochanteric bursa.There is lumbar pain with extension facet loading on the left. He has +1 over 4 Achilles +2 or 4 patellar reflexes bilaterally. IMAGING: I reviewed MRI of the lumbar spine and he does have small posterior in slightly left-sided disc bulge L5-S1 which may make some subtle contact with traversing S1 root. He also has at least [id number]-[id number] neuroforaminal narrowing L5-S1. L4-L5 shows some lateral recess narrowing from broad-based disc bulge and facet hypertrophy. There is right greater than left neuroforaminal narrowing. EXAM MRI L SPINE W WO CONTRAST08/05/2022 8:35 am HISTORY Low back pain. COMPARISON None TECHNIQUE Routine protocol MRI of the lumbar spine was performed with and without administration of IV gadolinium. FINDINGS For the purposes of this report, there are 5 lumbar type vertebral bodies and the inferior-most well-formed disc space is labeled L5-S1. Correlation of this numbering scheme with plain film radiographs is recommended prior to any planned surgical intervention. There is minimal retrolisthesis of L5 on S1. There is mild rightward curvature of the thoracolumbarspine. There is multilevel disc desiccation of the lumbar spine. There is endplate osteophyte formation with endplate degenerative changes at T11-T12. There are congenitally short pedicles of the lumbar spinal canal. There are Schmorl's nodes within the L2, L4, and L5 vertebral bodies. There is intervertebral disc space narrowing at L3-L4, L4-L5 at L5-S1. There are endplate degenerative changes at L4-L5 and L5-S1. There is mild endplate osteophyte formation at L5-S1. There is mild chronic height loss of the L5 vertebral body. There is facet hypertrophy of the mid and lower lumbar spine. Thereare tiny annular fissures at L3-L4 and L5-S1. There are hemangiomas within the L2 and L5 vertebral bodies. The conus medullaris terminates at the level of T12-L1. No definitive distal spinal cord lesion is identified. There are no focal areas of abnormal spinal cord enhancement. There is small foci of T2 hyperintensity within the bilateral kidneys, most commonly representing renal cysts. At the level of T11-T12, there is mild left neural foraminal stenosis without significant spinal canal stenosis. At the level of T12-L1, there is no significant spinal canal or neural foraminal stenosis. At the level of L1-L2, there is mild left neural foraminal stenosis without significant spinal canal stenosis. At the level of L2-L3, there is a disc bulge with facet hypertrophy causing mild ventral effacementof the CSF space and mild left neural foraminal stenosis. At the level of L3-L4, there is a disc bulge with facet hypertrophy and hypertrophy of the ligamentum flavum causing mild spinal canal stenosis, narrowing of the lateral recesses, and moderate bilateral neural foraminal stenosis. At the level of L4-L5, there is a disc bulge with facet hypertrophy causing narrowing of the lateral recesses, mild to moderate right neural foraminal stenosis, and mild left neural foraminal stenosis. At the level of L5-S1, there is a posterior disc osteophyte complex with facet hypertrophy causing effacement of the anterior epidural fat, moderate right neural foraminal stenosis, and mild to moderate left neural foraminal stenosis. IMPRESSION IMPRESSION 1. Vertebral body counting as described in the 1st paragraph under findings. 2. Multilevel, multifactorial degenerative changes of the lumbar spine with varying degrees of spinal canal and neural foraminal stenosis as described, most prominent at L3-L4, L4-L5 and L5-S1. 3. Additional findings as described above. ASSESSMENT: Left lumbar radicular pain PLAN: I suspect the symptoms are most explain by changes at the L5-S1 level. Since he has continued to experience back and lower extremity radicular symptoms despite appropriate conservative treatment, I did offer pursue epidural steroid injection using a caudal approach. Procedural risks including bleeding, infection, nerve or spinal cord injury, worsening pain or steroid side effects were reviewed and accepted. With his history of liver disease, I did review pertinent lab work recently and there are no obvious contraindications to injection. Wil Simon DO 09/14/2022 I spent a total of 30-39 minutes (exact time 32 mins) on the date of service in preparation, delivery, and documentation of the care provided to Delvis Munoz excluding any time spent in the performance of separately billed services. documented in this encounter Nursing Notes * Kaity Barboza LPN - 09/14/2022 9:48 AM EDT Patient presents with low back and left leg pain [id number] Had relief with 1st dosepack but not 2nd MRI in chart No relief with PT -4wks-[facility] [place] documented in this encounter Plan of Treatment Upcoming Encounters Date Type Specialty Care Team Description 09/22/2022 Office Visit Urology Shakira Arriaga, Jackson Pena MD [address] [place] [address] 10/13/2022 Hospital Encounter Surgery Wil Simon DO [address] [place] [address] 10/13/2022 Surgery Surgery Wil Simon DO [address] [place] [address] INJECTION SPINE LUMBAR OR SACRAL 10/22/2022 Office Visit Cardiology Jean-Paul Sumner MD [address] [place] [address] 12/14/2022 Office Visit Dermatology Darby Girard PA-C [address] [place] [address] 02/21/2023 Office Visit Gastroenterology Kaity Comer DO [address] [place] [address] Scheduled Orders Name Type Priority Associated Diagnoses Orde r Schedule INJECT DX/THER SUBSTANCE INTERLAMINAR LUMBAR/SACRAL W IMAGE GUIDE Procedures Routine Lumbar radicular pain Expected: 09/28/2022, Expires: 10/15/2023 Scheduled Procedures Name Priority Associated Diagnoses Date/Ti [...] Additional history exists CKD PHOS USE SMARTSET 82247 08/17/202207/27, 03/06/2020, 02/14/2020, Additional history exists HbA1c 10/03/2022 04/05/2022, 2 05/2021, 02/16/2021, Additional history exists GFR 02/16/2023 08/16/2022, 05/0 03/2022, 05/21/2022, Additional history exists CKD HGB USE SMARTSET 04119 08/17/202308/16, 08/16/2022, 02/09/2022, Additional history exists Lipid [...] this encounter Medical Devices Implanted Type Area Italian Lecturer Device Identifier Shelf Expiration Date Model / Serial / Lot Lens 19.0 [id number] - [id number] - [id number] Implanted:Qty: 1 on 08/09/2016 by Madi Frederick MD at OR [facility] Right: Eye KIMMIE : SURGICAL 2018 [id number] / [id number] / documented as of this encounter Visit Diagnoses Diagnosis Lumbar radicular pain- Primary Thoracic or lumbosacral neuritis or radiculitis, unspecified Lumbar radiculopathy Thoracic or lumbosacral neuritis or radiculitis, unspecified documented in this encounter Advance Directives Latest Code Status on File Code Status Date Activated Date Inactivated Comments Full Code 08/09/2016 2:37 PM 08/09/2016 7:17 PM This order reflects the patients wishes and were consensually agreed upon. Care Teams Electrical Technician Instructor Relationship Specialty Start Date End Date Jerzy Glez MD [address] [place] [address] PCP - General 12/30/99 documented as of this encounter
--- OUTSIDE RECORDS SUMMARY | 2023-02-05 13:21 | External Medical Summary | Summary of Care ---
Author Name Unknown Organization [facility] Address [address] [place] [address] Phone [phone] Care Team Providers Care Cardiology Clinical Consultant Name Role Phone Jerzy Glez MD Primary Care Provider [phone] Reason for Visit * Reason Comments Outpatient Testing Encounter Details Date Type Department Care Team Description 08/16/2022 Laboratory Laboratory, [facility] [address] [place] [id number] [facility] [address] [facility] [place] [id number] [employer] Other*[id number]; Hyperkalemia Allergies No known active allergiesdocumented as of this encounter (statuses as of 08/16/2022) Medications Medication Sig Dispensed Refills Start Date End Date Status Blood Glucose Monitoring Suppl (ONETOUCH VERIO) w/Device KITIndications:DM type 2, not at goal (HCC),Type 2 diabetes mellitus with hemoglobin A1c goal of less than 8.0% ([facility]) Use to check sugar daily E11.9 1 Kit 0 01/31/2019 Active Glucose Blood (ONETOUCH VERIO) STRPIndications:DM type 2, not at goal (HCC),Type 2 diabetes mellitus with hemoglobin A1c goal of less than 8.0% (HCC) Use up check sugar daily E11.9 100 Strip 11 01/31/2019 Active CHIKA RIVASYO FINE MISCIndications:DM type 2, not at goal [...] mRNA, LNP-s, No Pre serve, 2-Dose Series ([employer]) 02/02/2021,06/14/2020,05/24/2020 COVID-19, LNP-s, No Preserve , Ellis-sucrose, [...] Encounters Date Type Specialty Care Team Description 08/24/2022 Imaging Radiology 09/14/2022 Office Visit Pain Medicine Wil Simon, DO [address] [place] [address] 09/22/2022 Office Visit Urology Jackson Rosenberg Jr., MD [address] [place] [address] 10/22/2022 Office Visit Cardiology Jean-Paul Sumner MD [address] [place] [address] 12/14/2022 Office Visit Dermatology Darby Girard PA-C [address] [place] [address] 02/21/2023 Office Visit Gastroenterology Kaity Comer, [address] [place] [address] Pending Results Name Type Priority Associated Diagnoses Date /Time MYCODE SUBSEQUENT ADULT Lab Routine [employer] Other*[id number] 08/16/2022 11:44 AM EDT BASIC METABOLIC PANEL Lab Routine Hyperkalemia 08/16/2022 11:44 AM EDT MYCODE SST1 Lab Routine [employer] Other*[id number] 08/16/2022 11:44 AM EDT MYCODE SST2 Lab Routine [employer] Other*[id number] 08/16/2022 11:44 AM EDT Scheduled Procedures Name Priority Associated [...] Additional history exists CKD PHOS USE SMARTSET 93795 08/17/202207/27, 03/06/2020, 02/14/2020, Additional history exists HgA1C 10/03/2022 04/05/2022, 07/27, 02/16/2021, Additional history exists GFR - Renal Function 01/26/2023 07/26/2022, 05/21/2022, 04/05/2022, Additional history exists CKD HGB USE SMARTSET 59818 02/09/202302/09, 02/09/2022, 08/20/2021, Additional history exists Lipid [...] this encounter Medical Devices Implanted Type Area Deli/Bakery Associate Device Identifier Shelf Expiration Date Model / Serial / Lot Lens 19.0 Cz70bd - [id number] - [id number] Implanted:Qty: 1 on 08/09/2016 by Madi Frederick MD at OR [facility] Right: Eye KIMMIE : SURGICAL 2018 [id number] / [id number] / documented as of this encounter Visit Diagnoses Diagnosis [employer] Other*[id number] Hyperkalemia Hyperpotassemia documented in this encounter Advance Directives Latest Code Status on File Code Status Date Activated Date Inactivated Comments Full Code 08/09/2016 2:37 PM 08/09/2016 7:17 PM This order reflects the patients wishes and were consensually agreed upon. Care Teams Cardiology Clinical Consultant Relationship Specialty Start Date End Date Jerzy Glez MD [address] [place] [address] PCP - General 12/30/99 documented as of this encounter
--- OUTSIDE RECORDS SUMMARY | 2023-02-05 13:21 | External Medical Summary ---
Author Name Unknown Address Unknown Organization K0G:[facility] - [address] [place] [address] Laboratory Report Ordering Provider Test Date Status MILO BUTLER 08/16/2022 11:44:16 Final Warfarin Therapy
INR: 2 .0-3.0 conventional anticoagulation
INR: 2.5- 3.5 high intensity anticoagulation Observation Date Value Abnormality Reference (Units ) Status PT 08/16/2022 11:44:16 13.6 11.6-15.2 (seconds) Final INR 08/16/2022 11:44:16 1.0 0.8-1.2 Final Performing Location [facility] - [address] [place] [address]
--- OUTSIDE RECORDS SUMMARY | 2023-02-05 13:21 | External Medical Summary ---
Author Name Unknown Address Unknown Organization K01:[facility] - [address] [place] [address] Laboratory Report Ordering Provider Test Date Status MILO BUTLER 08/16/2022 11:44:16 Final Observation Date Value Abnormality Reference (Units ) Status Alpha-Fetoprotein 08/16/2022 11:44:16 1.7 0. 0-8.3 (ng/mL) Final Performing Location LABORATORY C - [address] [place] [address]
--- OUTSIDE RECORDS SUMMARY | 2023-02-05 13:21 | External Medical Summary ---
Author Name Unknown Address Unknown Organization K0G:[facility] [place] [facility] - [address] [place] [address] Laboratory Report Ordering Provider Test Date Status MILO BUTLER 08/16/2022 11:44:16 Final Observation Date Value Abnormality Reference (Units ) Status Albumin 08/16/2022 11:44:16 3.5 Below low normal 3.8-5.0 (g/dL) Final AST (Aspartate aminotransferase) 08/16/2022 11:44:16 46 10-50 (U/L) Final Alk Phos 08/16/2022 11:44:16 215 Above high normal 35-130 (U/L) Final ALT (Alanine aminotransferase) 08/16/2022 11:44:16 53 Above high normal 10-50 (U/L) Final Bilirubin, Total 08/16/2022 11:44:16 1.4 Above high normal <=1.2 (mg/dL) Final Bilirubin, Direct 08/16/2022 11:44:16 0.5 Above high normal 0.0-0.3 (mg/dL) Final Protein 08/16/2022 11:44:16 7.1 6.0-8.3 (g/dL) Final Performing Location [facility] [place] [facility] - [address] [place] [address]
--- OUTSIDE RECORDS SUMMARY | 2023-02-05 13:21 | External Medical Summary ---
Author Name Unknown Address Unknown Organization K0G:[facility] - [address] [place] [address] Laboratory Report Ordering Provider Test Date Status MILO BUTLER 08/16/2022 11:44:16 Final Observation Date Value Abnormality Reference (Units ) Status SYNC LEUKOCYTES IN BLOOD BY AUTOMATED COUNT 08/16/2022 11:44:16 13.82 Above high normal 4.00-10.80 (K/uL) Final Segs 08/16/2022 11:44:16 66.3 40.0-75.0 (%) Final Lymphs % 08/16/2022 11:44:16 19.0 18.0-42.0 (%) Final Monos 08/16/2022 11:44:16 11.1 Above high normal 1.0-11.0 (%) Final Eosinophils 08/16/2022 11:44:16 3.5 0.0-6.0 (%) Final Basos 08/16/2022 11:44:16 0.1 0.0-2.0 (%) Final Absolute Segs 08/16/2022 11:44:16 9.17 Above high normal 1.80-7.70 (K/uL) Final Lymphs, absolute 08/16/2022 11:44:16 2.62 1.00-4.80 (K/ul) Final Monos, Abs 08/16/2022 11:44:16 1.53 Above high normal 0.00-1.10 (K/uL) Final Eos, Abs 08/16/2022 11:44:16 0.48 0.00-0.70 (K/uL) Final Basos, Abs 08/16/2022 11:44:16 0.02 0.00-0.20 (K/uL) Final Performing Location [facility] [address] [place] [address]
--- OUTSIDE RECORDS SUMMARY | 2023-02-05 13:21 | External Medical Summary ---
Author Name Unknown Address Unknown Organization K01:[facility] - [address] [place] [address] Laboratory Report Ordering Provider Test Date Status ADRIAN JURADO 08/16/2022 11:44:16 Final Observation Date Value Abnormality Reference (Units ) Status MYCODE SPECIMEN-SST 08/16/2022 11:44:16 Freezing of extracted DNA, whole blood and/or serum. Final Performing Location LABORATORY C - [address] [place] [address]
--- OUTSIDE RECORDS SUMMARY | 2023-02-05 13:21 | External Medical Summary ---
Author Name Unknown Address Unknown Organization K0G:[facility] [place] [address] [place] [address] Laboratory Report Ordering Provider Test Date Status JULI GALICIA 08/16/2022 11:44:16 Final Observation Date Value Abnormality Reference (Units ) Status BUN 08/16/2022 11:44:16 22 Above high normal 6-20 (mg/dL) Final Creatinine 08/16/2022 11:44:16 1.5 Above high normal 0.6-1.2 (mg/dL) Final Glomerular filtration rate/1.73 sq M.predicted [Volume Rate/Area] in Serum, Plasma or Blood by Creatinine-based formula (CKD-EPI) 08/16/2022 11:44:16 49 Below low normal >=60 (mL/min) Final eGFR is calculated based on the CKD-EPI 2020 equation SODIUM 08/16/2022 11:44:16 137 135-146 (m mol/L) Final Potassium 08/16/2022 11:44:16 5.0 3.5-5.1 (m mol/L) Final Cl 08/16/2022 11:44:16 100 98-107 (mm ol/L) Final CO2 08/16/2022 11:44:16 26 22-32 (mmo l/L) Final Anion gap 08/16/2022 11:44:16 11 7-15 (mmol /L) Final Glucose 08/16/2022 11:44:16 156 Above high normal 70 -120 (mg/dL) Final Calcium 08/16/2022 11:44:16 9.0 8.4-10.2 ( mg/dL) Final [facility] Location [facility] [address] [place] [address]
--- OUTSIDE RECORDS SUMMARY | 2023-02-05 13:21 | External Medical Summary | Summary of Care ---
Author Name Unknown Organization [facility] Address [address] [facility] [place] [address] Phone [phone] Care Team Providers Care Casino Duty Manager Name Role Phone Jerzy Glez MD Primary Care Provider [phone] Encounter Details Date Type Department Care Team Description 08/31/2022 Telephone Hepatology, [facility] [address] [place] [address] Kaity Comer DO [address] [place] [address] Allergies No known active allergiesdocumented as of [...] mRNA, LNP-s, No Pre serve, 2-Dose Series (Piktochart) 02/02/2021,06/14/2020,05/24/2020 COVID-19, LNP-s, No Preserve , Ellis-sucrose, [...] encounter Miscellaneous Notes * Telephone Encounter - Eliceo Dietz RN - 08/31/2022 10:01 AM EDT Called #, sent straight to . Sent MyG and normal results letter. * Telephone Encounter - Kaity Comer DO [...] Pain Medicine Wil Simon DO [address] [place] [address] 09/22/2022 Office Visit Urology Jackson Rosenberg Jr., MD [address] [place] [address] 10/22/2022 Office Visit Cardiology Jean-Paul Sumner MD [address] [place] [address] 12/14/2022 Office Visit Dermatology Darby Giarrd PA-C [address] [place] [address] 02/21/2023 Office Visit Gastroenterology Kaity Comer, [address] [place] [address] Scheduled Procedures Name Priority Associated Diagnoses Date/Ti [...] Additional history exists CKD PHOS USE SMARTSET 96700 08/17/202207/27, 03/06/2020, 02/14/2020, Additional history exists HbA1c 10/03/2022 04/05/2022, 07/27, 02/16/2021, Additional history exists GFR 02/16/2023 08/16/2022, 05/0 03/2022, 05/21/2022, Additional history exists CKD HGB USE SMARTSET 30895 08/17/202308/16, 08/16/2022, 02/09/2022, Additional history exists Lipid [...] this encounter Medical Devices Implanted Type Area Internal Medicine Nurse Device Identifier Shelf Expiration Date Model / Serial / Lot Lens 19.0 [id number] - [id number] - [id number] Implanted:Qty: 1 on 08/09/2016 by Madi Frederick MD at [facility] Right: Eye KIMMIE : SURGICAL 2018 [id number] / [id number] / documented as of this encounter Advance Directives Latest Code Status on File Code Status Date Activated Date Inactivated Comments Full Code 08/09/2016 2:37 PM 08/09/2016 7:17 PM This order reflects the patients wishes and were consensually agreed upon. Care Teams Casino Duty Manager Relationship Specialty Start Date End Date Jerzy Glez MD [address] [place] [address] PCP - General 12/30/99 documented as of this encounter
--- OUTSIDE RECORDS SUMMARY | 2023-02-05 13:22 | External Medical Summary | Summary of Care ---
Author Name Unknown Organization [facility] Address [address] [facility] [address] Phone [phone] Care Team Providers Care Residential Mortgage Manager Name Role Phone Jerzy Glez MD Primary Care Provider [phone] Reason for Visit * Reason Onset Date Comments Test Results 08/04/2022 Encounter Details Date Type Department Care Team Description 08/04/2022 Telephone Cardiology, [facility] [address] [place] [address] Mary Jane Hawkins PA-C [address] [place] [address] Test Results Allergies No known active allergiesdocumented as of this encounter (statuses as of 08/11/2022) Medications Medication Sig Dispensed Refills Start Date [...] if needed 3 Tablet 0 07/20/2022 Active traZODone HCl 100 MG Oral Tablet (Desyrel)Indications :Persistent insomnia Take 1 Tablet by mouth at bedtime. 90 Tablet 3 07/26/2022 Active methylPREDNISolone 4 MG Oral Tablet Therapy Pack (Medrol Dosepack)Indications :Left lumbar radiculopathy follow package directions 21 Tablet 0 07/26/2022 Active oxyCODONE HCl 10 MG Oral Tablet (Roxicodone)Indicati ons:Other closed fracture of thoracic vertebra, unspecified thoracic vertebral level, sequela Take 1 Tablet by mouth in the morning and 1 Tablet at noon and 1 Tablet in the evening and 1 Tablet before bedtime. 120 Tablet 0 07/31/2022 Active documented as of this encounter (statuses as of 08/11/2022) Active Problems Problem Noted Date Cirrhosis of [...] as of this encounter (statuses as of 08/11/2022) Resolved Problems Problem Noted Date Resolved Date [...] as of this encounter (statuses as of 08/11/2022) Immunizations Name Administration Dates Next Due COVID-19 mRNA, LNP-s, No Pre serve, 2-Dose Series (Migo[employer]me) 02/02/2021,06/14/2020,05/24/2020 COVID-19, LNP-s, No Preserve , Ellis-sucrose, [...] encounter Miscellaneous Notes * Telephone Encounter - Melinda Cordero RN - 08/04/2022 2:19 PM EDT Called, left message for patient to return call. See result information below and advise/transfer upon return call. [employer] also sent with below information. * Telephone Encounter - Melinda Cordero RN - 08/04/2022 2:01 PM EDT ----- Message from [place] Jane Hawkins PA-C sent at 07/28/2022 7:51 PM EDT ----- Renal function improved. Potassium slightly elevated. Verify he is not taking any potassium supplements. Low potassium diet No NSAIDS. No salt substitutes. No MVI with potassium Repeat BMP in 1-2 weeks. documented in this encounter Plan of Treatment Upcoming Encounters Date Type Specialty Care Team Description 08/16/2022 Office Visit Gastroenterology Kaity Comer, [address] [place] [address] 09/14/2022 Office Visit Pain Medicine Wil Simon, [address] [place] [address] 09/22/2022 Office Visit Urology Jackson Rosenberg Jr., MD [address] [place] [address] 10/22/2022 Office Visit Cardiology Jean-Paul Sumner MD [address] [place] [address] Scheduled Orders Name Type Priority Associated Diagnoses Orde r Schedule BASIC METABOLIC PANEL Lab Routine Hyperkalemia Expected: 08/11/2022, Expires: 08/05/2023 Scheduled Procedures Name Priority Associated Diagnoses Date/Ti [...] Additional history exists CKD PHOS USE SMARTSET 04689 08/17/202207/27, 03/06/2020, 02/14/2020, Additional history exists HgA1C 10/03/2022 04/05/2022, 07/27, 02/16/2021, Additional history exists GFR - Renal Function 01/26/2023 07/26/2022, 05/21/2022, 04/05/2022, Additional history exists CKD HGB USE SMARTSET 06834 02/09/202302/09, 02/09/2022, 08/20/2021, Additional history exists Lipid [...] this encounter Medical Devices Implanted Type Area Electric Motor Winder Device Identifier Shelf Expiration Date Model / Serial / Lot Lens 19.0 Cz70bd - [id number] - [id number] Implanted:Qty: 1 on 08/09/2016 by Madi Frederick MD at [facility] Right: Eye KIMMIE : SURGICAL 2018 [id number] / [id number] / documented as of this encounter Visit Diagnoses Diagnosis Hyperkalemia- Primary Hyperpotassemia documented in this encounter Advance Directives Latest Code Status on File Code Status Date Activated Date Inactivated Comments Full Code 08/09/2016 2:37 PM 08/09/2016 7:17 PM This order reflects the patients wishes and were consensually agreed upon. Care Teams Residential Mortgage Manager Relationship Specialty Start Date End Date Jerzy Glez MD [address] [place] [address] PCP - General 12/30/99 documented as of this encounter
--- OUTSIDE RECORDS SUMMARY | 2023-02-05 13:22 | External Medical Summary | Summary of Care ---
Author Name Unknown Organization [facility] Address [address] [place] [address] Phone [phone] Care Team Providers Care Demolition Worker Name Role Phone Jerzy Glez MD Primary Care Provider [phone] Reason for Visit * Reason Onset Date Comments Medication Refill 08/04/2022 Encounter Details Date Type Department Care Team Description 08/04/2022 Refill [facility] [address] [place] [id number] Jerzy Glez MD [address] [place] [address] Other closed fracture of thoracic vertebra, unspecified thoracic vertebral level, sequela Allergies No known active allergiesdocumented as of this encounter (statuses as of 08/05/2022) Medications Medication Sig Dispensed Refills Start Date End Date Status Blood Glucose Monitoring Suppl (ONETOUCH VERIO) w/Device KITIndications:DM type 2, not at goal ([facility]),Type 2 diabetes mellitus with hemoglobin A1c goal of less than 8.0% ([facility]) Use to check sugar daily E11.9 1 Kit 0 01/31/2019 Active Glucose Blood (ONETOUCH VERIO) STRPIndications:DM type 2, not at goal ([facility]),Type 2 diabetes mellitus with hemoglobin A1c goal of less than 8.0% ([facility]) Use up check sugar daily E11.9 100 [...] as of this encounter (statuses as of 08/05/2022) Active Problems Problem Noted Date Cirrhosis of [...] as of this encounter (statuses as of 08/05/2022) Resolved Problems Problem Noted Date Resolved Date [...] as of this encounter (statuses as of 08/05/2022) Immunizations Name Administration Dates Next Due COVID-19 mRNA, LNP-s, No Pre serve, 2-Dose Series ([employer]) 02/02/2021,06/14/2020,05/24/2020 COVID-19, LNP-s, No Preserve , [...] encounter Miscellaneous Notes * Telephone Encounter - Nusrat English [facility] - 08/05/2022 10:18 AM EDTRefused Prescriptions: Disp Refills oxyCODONE HCl 10 MG Oral Tablet (Roxicodon*120 Ta*0 Sig: Take 1Tablet by mouth in the morning and 1 Tablet at noon and 1 Tablet in the evening and 1 Tablet beforebedtime.Refused By: NUSRAT ALMONTE for Refusal: Other (comment below)Reason for Refusal Comment: Rx sent 07/31/22, pt advised * Telephone Encounter - Nusrat English [facility] - 08/05/2022 10:11 AM EDT Rx filled 08/03/22, pt advised documented in this encounter Plan of Treatment Upcoming Encounters Date Type Specialty Care Team Description 08/09/2022 Telemedicine Orthopedics Christine Beltrán MD [address] [place] [address] 08/16/2022 Office Visit Gastroenterology Kaity Comer DO [address] [place] [address] 09/22/2022 Office Visit Urology Jackson Rosenberg Jr., MD [address] [place] [address] 10/22/2022 Office Visit Cardiology Jean-Paul Sumner MD [address] [place] [address] Scheduled Procedures Name Priority Associated Diagnoses Date/Ti [...] Additional history exists CKD PHOS USE SMARTSET 12591 08/17/202207/27, 03/06/2020, 02/14/2020, Additional history exists HgA1C 10/03/2022 04/05/2022, 07/27, 02/16/2021, Additional history exists GFR - Renal Function 01/26/2023 07/26/2022, 05/21/2022, 04/05/2022, Additional history exists CKD HGB USE SMARTSET 88975 02/09/202302/09, 02/09/2022, 08/20/2021, Additional history exists Lipid [...] this encounter Medical Devices Implanted Type Area Mainspring Barrel Assembly Cleaner Device Identifier Shelf Expiration Date Model / Serial / Lot Lens 19.0 Cz70bd - [id number] - [id number] Implanted:Qty: 1 on 08/09/2016 by Madi Frederick MD at [facility] Right: Eye KIMMIE : SURGICAL 2018 [id number] / [id number] / documented as of this encounter Visit Diagnoses Diagnosis Other closed fracture of thoracic vertebra, unspecified thoracic vertebral level, sequela documented in this encounter Advance Directives Latest Code Status on File Code Status Date Activated Date Inactivated Comments Full Code 08/09/2016 2:37 PM 08/09/2016 7:17 PM This order reflects the patients wishes and were consensually agreed upon. Care Teams Demolition Worker Relationship Specialty Start Date End Date Jerzy Glez MD [address] [place] [address] PCP - General 12/30/99 documented as of this encounter
--- OUTSIDE RECORDS SUMMARY | 2023-02-05 13:22 | External Medical Summary | Summary of Care ---
Author Name Unknown Organization [facility] Address [address] [place] [address] Phone [phone] Care Team Providers Care Design Consultant Name Role Phone Jerzy Glez MD Primary Care Provider [phone] Reason for Referral * Evaluate & Treat - Unlimited Visits (Within 10 days (routine)) - Authorized Specialty Diagnoses / Procedures Referred By Swapnil caldwell Referred To Contact Pain Management / Pain Medicine Diagnoses Left lumbar radiculopathy Multilevel degenerative disc disease Christine Beltrán MD [address] [place] [address] Referral ID Status Reason Start Date Expiration Date Visits Requested Visits Authorized [id number] Authorized Specialty Services Required 08/09/2022 999 999 Question Answer Referral Priority Within 10 days (routine) Reason for referral? Interventional Pain Management - (Injection) What is the preferred location to have this test performed? [facility] Comments Patient Name: Delvis Munoz Date of : 1950 Department Phone Number: MRI or CT (if unable to have a MRI) is recommended if any of the following apply: 1. Patient has neck or back pain with radiation to extremities. A previous MRI will be accepted if symptoms unchanged since prior MRI. 2. Spinal surgery since last MRI. If yes, order a MRI with and without contrast. 3. Hx or ongoing cancer treatment. Patient will need spine x-ray (Ap/Lat) for axial neck or back pain if not done previously. Fax No. [facility] [phone] or contact front office agent [phone] Fax No. [facility] [phone] or contact front office agent [phone] Fax No. [facility] [phone] or contact front office agent [phone] Reason for Visit * Reason Comments Test Results Encounter Details Date Type Department Care Team Description 08/09/[address] [facility] [address] [place] [address] Chrsitine Beltrán MD [address] [place] [address] Left lumbar radiculopathy*; Multilevel degenerative disc disease Allergies No known active allergiesdocumented as of this encounter (statuses as of 08/09/2022) Medications Medication Sig Dispensed Refills Start Date [...] as of this encounter (statuses as of 08/09/2022) Active Problems Problem Noted Date Cirrhosis of [...] as of this encounter (statuses as of 08/09/2022) Resolved Problems Problem Noted Date Resolved Date [...] as of this encounter (statuses as of 08/09/2022) Immunizations Name Administration Dates Next Due COVID-19 [...] as of this encounter Progress Notes * Christine Beltrán MD - 08/09/2022 10:30 AM EDT After connecting to the patient via telephone, the patient was identified by name and date of . Patient was then informed that this was a telephone call only visit. The patient agreed to participate. Visit Disposition: Routine follow-up Delvis was last seen in the office on 07/19/2022. At that time had left leg pain that started his left lower back and radiated down to the foot. At that visit was referred to physical therapy and provided a Medrol Dosepak. In addition, MRI with and without contrast was ordered as he had some unintentional weight loss associated with his back pain. Today, he reports that the Medrol Dosepak helped fairly significantly for the 1st week or so while he was on it. A few days after his Dosepak finished the pain returned. Has not started physical therapy yet as they were waiting for the results of the MRI. Has seen his primary care physician and they are working up possible causes of weight loss. Results: MRI L SPINE W WO CONTRAST08/05/2022 8:35 [...] L5-S1. 3. Additional findings as described above. Assessment and Plan: ICD-10-CM 1. Left lumbar radiculopathy M54.16 2. Multilevel degenerative disc disease M53.9 MRI reviewed with him in detail. Thankfully, no evidence of malignancy. Does have multilevel multifactorial degenerative changes of spine and certainly reasons to have the pain that he presented with. Discussed that I still recommend that they engage with physical therapy. Discussed option of proceeding with pain management referral. He and his preferred to start down the path of pain management for possible injections to see if this can provide him with pain relief. Referral to pain management provided. They will set up physical therapy. Follow up primary care sports medicine on an as-needed basis. Total call duration was 12 minutes. documented in this encounter Plan of Treatment Upcoming Encounters Date Type Specialty Care Team Description 08/16/2022 Office Visit Gastroenterology Kaity Comer DO [address] [place] [address] 09/22/2022 Office Visit Urology Shakira Arriaga, Jackson Pena MD [address] [place] [address] 10/22/2022 Office Visit Cardiology Jean-Paul Sumner MD [address] [place] [address] Scheduled Procedures Name Priority Associated Diagnoses Date/Ti me ESOPHAGOGASTRODUODENOSCOPY ( EGD), FLEXIBLE, TRANSORAL, DIAGNOSTIC Recall Intestinal metaplasia of stomach COLONOSCOPY FLEXIBLE PROXIMAL DIAGNOSTIC Recall History of colon polyps Scheduled Referrals Name Type Priority Associated Diagnoses Orde r Schedule PAIN MEDICINE REFERRAL OP Referral Within 10 days (routine) Left lumbar radiculopathy Multilevel degenerative disc disease Ordered: 08/09/2022 Health Maintenance Due Date Last Done Comments [...] Additional history exists CKD PHOS USE SMARTSET 72448 08/17/202207/27, 03/06/2020, 02/14/2020, Additional history exists HgA1C 10/03/2022 04/05/2022, 07/27, 02/16/2021, Additional history exists GFR - Renal Function 01/26/2023 07/26/2022, 05/21/2022, 04/05/2022, Additional history exists CKD HGB USE SMARTSET 18551 02/09/202302/09, 02/09/2022, 08/20/2021, Additional history exists Lipid [...] this encounter Medical Devices Implanted Type Area Executive Personal Assistant Device Identifier Shelf Expiration Date Model / Serial / Lot Lens 19.0 Cz70bd - [id number] - [id number] Implanted:Qty: 1 on 08/09/2016 by Madi Frederick MD at [facility] Right: Eye KIMMIE : SURGICAL 2018 [id number] / [id number] / documented as of this encounter Visit Diagnoses Diagnosis Left lumbar radiculopathy- Primary Thoracic or lumbosacral neuritis or radiculitis, unspecified Multilevel degenerative disc disease Degeneration of intervertebral disc, site unspecified documented in this encounter Advance Directives Latest Code Status on File Code Status Date Activated Date Inactivated Comments Full Code 08/09/2016 2:37 PM 08/09/2016 7:17 PM This order reflects the patients wishes and were consensually agreed upon. Care Teams Design Consultant Relationship Specialty Start Date End Date Jerzy Glez MD [address], [place] [id number] PCP - General 12/30/99 documented as of this encounter
--- OUTSIDE RECORDS SUMMARY | 2023-02-05 13:22 | External Medical Summary | Summary of Care ---
Author Name Unknown Organization [facility] [address] [facility] [address] Phone [phone] Care Team Providers Care Concrete Finisher Apprentice Name Role Phone Jerzy Glez MD Primary Care Provider Reason for Visit * Reason Onset Date Comments Test Results 08/04/2022 Encounter Details Date Type Department Care Team Description 08/04/2022 Telephone Cardiology, [facility] [address] [place] [address] Mary Jane Hawkins PA-C [address] [place] [address] Test Results Allergies No known active allergiesdocumented as of this encounter (statuses as of 08/13/2022) Medications Medication Sig Dispensed Refills Start Date [...] as of this encounter (statuses as of 08/13/2022) Active Problems Problem Noted Date Cirrhosis of [...] as of this encounter (statuses as of 08/13/2022) Resolved Problems Problem Noted Date Resolved Date [...] as of this encounter (statuses as of 08/13/2022) Immunizations Name Administration Dates Next Due COVID-19 mRNA, LNP-s, No Pre serve, 2-Dose Series ([employer]) 02/02/2021,06/14/2020,05/24/2020 COVID-19, LNP-s, No Preserve , Ellis-sucrose, [...] encounter Miscellaneous Notes * Telephone Encounter - Suze Wu LPN - 08/13/2022 2:11 PM EDT Review of MyG access, pt read message 08/07. No response * Telephone Encounter - Melinda Cordero RN - 08/04/2022 2:19 PM EDT Called, left message for patient to return call. See result information below and advise/transfer upon return call. [email or web address] sent [facility] below information. * Telephone [...] Kaity Comer, [address] [place] [address] 09/14/2022 Office Visit Pain Medicine Wil Simon, [address] [place] [address] 09/22/2022 Office Visit Urology Jackson Rosenberg Jr., MD [address] [place] [address] 10/22/2022 Office Visit Cardiology Jean-Paul Sumner MD [address] [place] [address] Scheduled Orders Name Type Priority Associated Diagnoses [...] Additional history exists CKD PHOS USE SMARTSET 07129 08/17/202207/27, 03/06/2020, 02/14/2020, Additional history exists HgA1C 10/03/2022 04/05/2022, 07/27, 02/16/2021, Additional history exists GFR - Renal Function 01/26/2023 07/26/2022, 05/21/2022, 04/05/2022, Additional history exists CKD HGB USE SMARTSET 59085 02/09/202302/09, 02/09/2022, 08/20/2021, Additional history exists Lipid [...] this encounter Medical Devices Implanted Type Area Mat Gauger Device Identifier Shelf Expiration Date Model / Serial / Lot Lens 19.0 Cz70bd - [id number] - [id number] Implanted:Qty: 1 on 08/09/2016 by Madi Frederick MD at [facility] Right: Eye KIMMIE : SURGICAL 2018 [id number] / [id number] / documented as of this encounter Visit Diagnoses Diagnosis Hyperkalemia- Primary Hyperpotassemia documented in this encounter Advance Directives Latest Code Status on File Code Status Date Activated Date Inactivated Comments Full Code 08/09/2016 2:37 PM 08/09/2016 7:17 PM This order reflects the patients wishes and were consensually agreed upon. Care Teams Concrete Finisher Apprentice Relationship Specialty Start Date End Date Jerzy Glez MD [address] [place] [address] PCP - General 12/30/99 documented as of this encounter
--- OUTSIDE RECORDS SUMMARY | 2023-02-05 13:22 | External Medical Summary | Summary of Care ---
Author Name Unknown Organization [facility] Address [address] [place] [address] Phone [phone] Care Team Providers Care Wildlife Control Agent Name Role Phone Jerzy Glez MD Primary Care Provider [phone] Reason for Visit * Reason Comments eRx-Medication Refill Encounter Details Date Type Department Care Team Description 08/08/2022 Refill [facility] [address] [place] [address] Jerzy Glez MD [address] [place] [address] Allergies No known active allergiesdocumented as of [...] mRNA, LNP-s, No Pre serve, 2-Dose Series ([employer]) 02/02/2021,06/14/2020,05/24/2020 COVID-19, LNP-s, No Preserve , Ellis-sucrose, [...] encounter Miscellaneous Notes * Telephone Encounter - Mohan Yarbrough [facility] - 08/09/2022 12:09 PM EDTRefused Prescriptions: Disp Refills traZODone HCl 50 MG Oral Tablet (Desyrel) 90 Tab*3 Sig: TAKE 1TABLET BY MOUTH EVERYDAY AT BEDTIMERefused By: MOHAN YARBROUGH for Refusal: Refill Not Appr opriate Electronically signed by Mohan Yarbrough [facility] at 08/09/2022 12:09 PM EDT documented in this encounter Plan of Treatment Upcoming Encounters Date Type Specialty Care Team Description 08/16/2022 Office Visit Gastroenterology Kaity Comer DO [address] [id number] 09/22/2022 Office Visit Urology Jackson Rosenberg Jr., MD [address] [facility] [address] [address] 10/22/2022 Office Visit Cardiology Jean-Paul Sumner MD [address] [id number] Scheduled Procedures Name Priority Associated Diagnoses Date/Ti [...] Additional history exists CKD PHOS USE SMARTSET 77914 08/17/202207/27, 03/06/2020, 02/14/2020, Additional history exists HgA1C 10/03/2022 04/05/2022, 07/27, 02/16/2021, Additional history exists GFR - Renal Function 01/26/2023 07/26/2022, 05/21/2022, 04/05/2022, Additional history exists CKD HGB USE SMARTSET 41714 02/09/202302/09, 02/09/2022, 08/20/2021, Additional history exists Lipid [...] this encounter Medical Devices Implanted Type Area Thread Separator Device Identifier Shelf Expiration Date Model / Serial / Lot Lens 19.0 [id number] - [id number] - [id number] Implanted:Qty: 1 on 08/09/2016 by Madi Frederick MD at OR [facility] Right: Eye KIMMIE : SURGICAL 2018 [id number] / [id number] / documented as of this encounter Advance Directives Latest Code Status on File Code Status Date Activated Date Inactivated Comments Full Code 08/09/2016 2:37 PM 08/09/2016 7:17 PM This order reflects the patients wishes and were consensually agreed upon. Care Teams Wildlife Control Agent Relationship Specialty Start Date End Date Jerzy Glez MD [address] [place] [address] PCP - General 12/30/99 documented as of this encounter
== END 2023-02-04 15:38 | disposition home or self-care (01) | DRG 202 ==
LOC: EDINP 18:16 → ED 18:16 → 3E 02-01 00:47

== ENCOUNTER 2024-03-26 17:08 | Inpatient (IN) ==
--- NOTE | 2024-03-26 18:12 | CT Scan Report ---
Clinical History: Dizziness Technique: Axial computed tomography images were obtained of the brain without intravenous contrast. Comparison is made to the prior CT dated 12/09/2023 Findings: There is unchanged cerebral atrophy, within expected limits for the patient's age. Areas of decreased attenuation are seen within the periventricular white matter, likely representing chronic small vessel ischemic disease. There is no definite sign of acute or old infarction. No intracranial hemorrhage is evident. No definite mass lesion is seen on this noncontrast examination. There is no midline shift or other form of herniation. No hydrocephalus is seen. No fracture is identified. The orbits and the visualized paranasal sinuses appear unremarkable. The mastoid air cells appear clear. Impression: 1. Cerebral atrophy and chronic small vessel ischemic disease 2. Otherwise unremarkable noncontrast CT of the brain Electronically signed by Alexander Noguera 03-26-2024 6:11 PM
--- NOTE | 2024-03-26 18:41 | XRay Report ---
EXAM: Portable AP chest radiograph TECHNIQUE: AP portable radiograph of the chest was obtained. INDICATION: Shortness of breath Comparison: Chest radiograph and thoracic CT February 03, 2023 FINDINGS: LINES and TUBES: None CARDIOVASCULAR: Cardiac silhouette is enlarged in size. LUNGS/PLEURA: No focal consolidation identified. Peribronchial cuffing that may be seen with bronchiolitis. Mild pulmonary vascular congestion no significant pleural fluid. Pleural scarring with pleural calcified plaques. No discernible pneumothorax. OSSEOUS/OTHER: No displaced acute osseous process identified. Chronic right-sided rib fractures. Surgical clips over the right upper quadrant of the abdomen, presumably from prior cholecystectomy.. IMPRESSION: Congestive changes of the cardiovascular system. Peribronchial cuffing that may be seen with bronchiolitis. Pleural calcifications and thickening were better delineated in the prior CT examination Electronically signed by Karan Caal 03-26-2024 6:40 PM
[2024-03-26 19:04] LABS: Basophils # (auto) 0.08 K/uL (0.00-0.20); Basophils % (auto) 0.7 %; Eosinophils # (auto) 0.47 K/uL (0.00-0.50); Eosinophils % (auto) 4.2 %; Hematocrit (blood only) 38.7 % (42.0-52.0); Hemoglobin 13.1 g/dl (14.0-18.0); Immature Granulocytes # (auto) 0.04 K/uL (0.01-0.20); Immature Granulocytes % (auto) 0.4 %; Lymphocytes # (auto) 2.08 K/uL (1.20-3.40); Lymphocytes % (auto) 18.4 %; Mean Corpuscular Hemoglobin 33.6 pg (25.0-34.0); Mean Corpuscular Hgb Conc 33.9 g/dL (32.0-36.0); Mean Corpuscular Volume 99.2 fL (80.0-100.0); Mean Platelet Volume 11.2 fL (9.4-12.4); Monocytes # (auto) 1.08 K/uL (0.11-0.59); Monocytes % (auto) 9.6 %; Neutrophils # (auto) 7.54 K/uL (1.40-6.50); Neutrophils % (auto) 66.7 %; Platelet Count 170 K/uL (130-400); RDW Coefficient of Variation 13.6 % (11.5-14.5); RDW Standard Deviation 49.8 fL (36.4-46.3); White Blood Count 11.29 K/ul (4.8-10.8)
[2024-03-26 19:21] LABS: Albumin Globulin Ratio 0.7 (0.9-2); Albumin Level 3.3 gm/dl (3.4-5.0); BUN Creatinine Ratio 18.8 (10-20); Bilirubin,Total 1.2 mg/dl (0.2-1.0); Calcium 8.5 mg/dl (8.6-10.3); Creatinine Clr Calc Pharmacy 42.8 ml/min; Globulin 4.9 gm/dl (2.5-4.0); Potassium 4.7 mmol/L (3.5-5.1); Total Protein 8.2 gm/dl (6.0-8.3)
[2024-03-26 19:27] LABS: Troponin I High Sensitivity 7.3 pg/ml (0-20)
[2024-03-26 19:38] LABS: Partial Thromboplastin Ratio 1.1; Partial Thromboplastin Time 29 Seconds (21-31); Prothrombin Time 11.3 Seconds (9.0-12.0)
[2024-03-26 20:34] LABS: Adenovirus PCR Not Detected (NotDetected); Bordetella parapertussis PCR Not Detected (NotDetected); Bordetella pertussis PCR Not Detected (NotDetected); Chlamydia pneumoniae PCR Not Detected (NotDetected); Coronavirus 229E PCR Not Detected (NotDetected); Coronavirus CoV-2 (COVID19)PCR DETECTED (NotDetected); Coronavirus HKU1 PCR Not Detected (NotDetected); Coronavirus NL63 PCR Not Detected (NotDetected); Coronavirus OC43PCR Not Detected (NotDetected); Human Metapneumovirus PCR Not Detected (NotDetected); Influenza A PCR Not Detected (NotDetected); Influenza B PCR Not Detected (NotDetected); Mycoplasma pneumoniae PCR Not Detected (NotDetected); Parainfluenza Virus 1 PCR Not Detected (NotDetected); Parainfluenza Virus 2 PCR Not Detected (NotDetected); Parainfluenza Virus 3 PCR Not Detected (NotDetected); Parainfluenza Virus 4 PCR Not Detected (NotDetected); Respiratory Syncytial VirusPCR Not Detected (NotDetected); Rhinovirus/Enterovirus PCR Not Detected (NotDetected)
--- NOTE | 2024-03-26 20:52 | Emergency Department Note ---
Impression & Plan COVID-19, Generalized weakness, Dizziness ED Provider Note NAME: THAI MEJIA AGE: 73 SEX: Male INFORMANT: Patient ED PROVIDER(S): Black Dang MD CHIEF COMPLAINT: Illness and dizziness PLAN: Disposition: Admitted Outpatient prescription management: none Referral: None MEDICAL DECISION MAKING: Patient presented with myalgias, sore throat, and dizziness. CT of the head was negative. Patient's laboratory testing revealed some mild issues with his LFTs but not significantly worse than prior. Patient has a mild leukocytosis but that has improved as well. [employer] testing was consistent with a COVID-19 infection. Patient did not have any ambulatory hypoxia or resting hypoxia. He had significant weakness. Patient and did not feel comfortable going home given his chronic issues with his dizziness and worsening symptoms secondary to this acute COVID-19 infection. He does not have any meningeal findings. Patient did request his evening oxycodone dose which she takes for chronic pain. This was ordered. Further management in the hospital be necessary. Consultation was made with Dr. Mark Wong [facility] service Care/management discussed with: nurse healthcare manager Level of care consideration(s): After review of the information above and other included data, I feel the patient requires escalation of care to admission Triage Nursing notes: reviewed and agree them. Vital Signs: reviewed and remarkable for no significant abnormalities Additional History obtained from: none Chronic Medical/Social Conditions affecting care: CHF Prior/ Outside/ External records reviewed: none Differential Diagnosis: Infection, dehydration, metabolic abnormality, hypo/hyperglycemia, electrolyte disturbance, anemia, hypoxia, cardiac sources, intracerebral event, toxicologic, neurologic, as well as other pathologies. Diagnostics, independently interpreted by me: ECG: Twelve-lead ECG reveals normal sinus rhythm at 66 beats per minute. Septal Q wave. No evidence of pericarditis, ischemia, ectopy, or dysrhythmia. Cardiac Monitoring: Cardiac monitoring ordered by me: The patient was placed on continuous cardiac monitoring and observed. It revealed a normal sinus rhythm at 69 beats per minute without ectopy or evidence of dysrhythmia. Medical decision rules: none Imaging studies: Chest x-ray reveals mild bronchiolitis and congestive change without evidence of lobar pneumonia. Head CT: A noncontrast CT scan of the head was performed and was negative for tumor, fracture, intracranial hemorrhage, or other acute pathology. HPI: 73 year old Male arrives for evaluation of dizziness and illness. Patient states the PCP has been following him for several months of dizziness. He notes things changed over the last several days. He developed a sore throat, worsening dizziness, fatigue, generalized weakness, and myalgias. Denies any obvious sick contacts. Note no significant cough. He also notes a headache. Patient states his generalized pain and myalgias as well as headache are rated an 8. He found no relieving factors at home. Patient presented to emergency department for further management. Patient denies any abdominal pain, nausea, vomiting, diarrhea, urinary symptoms, numbness, or other complaints. PAST MEDICAL HISTORY: See Below, COVID-19, CHF PAST SURGICAL HISTORY: See Below, SOCIAL HISTORY: See Below, HOME MEDICATIONS: See Below ALLERGIES: See Below VITALS: See Below PHYSICAL EXAMINATION: GENERAL: Awake, alert, mildly ill-appearing, in no distress HENT: Normocephalic, atraumatic. Oropharynx unremarkable. EYES: Normal conjunctiva. Sclera non-icteric. PERRLA. EOMI. NECK: Inspection normal. Non-tender. Supple. No nuchal rigidity. FROM. No masses. RESPIRATORY: Clear to auscultation. No wheezes. No rales. Normal respiratory effort. CARDIAC: Normal rate. Normal rhythm. Systolic murmur noted. No rubs. Extremities warm and well perfused. Pulses equal. No JVD. GI: Soft, non-distended. No tenderness to palpation. No rebound or guarding. No masses. RECTAL: Deferred. MUSCULOSKELETAL: Atraumatic. LOWER EXTREMITIES: Calves are equal size bilaterally and non-tender. No edema. No discoloration. NEURO: Normal sensorium. No sensory or motor deficits noted. Speech normal. Normal rapid alternating movements. SKIN: No rash or jaundice noted. PROCEDURES: none CRITICAL CARE: none OBSERVATION NOTE: none Past Med/Surg History Problem List (Updated 03/27/24 @ 00:49 by Black Dang MD) Dizziness (Acute) Generalized weakness (Acute) COVID-19 (Acute) Generalized weakness (Acute) Leukocytosis (Acute) Fever (Acute) Acute exacerbation of CHF (congestive heart failure) (Acute) Shortness of breath (Acute) Bilateral edema of lower extremity (Acute) Recent weight gain (Acute) Hypomagnesemia (Acute) Acute on chronic heart failure with preserved ejection fraction (HFpEF) Chest pressure (Acute) Acute exacerbation of CHF (congestive heart failure) (Acute) Multiple rib fractures (Acute) History of cholecystectomy Previous back surgery Rib pain (Acute 09/10/10) Subacute bacterial endocarditis (Acute 09/24/10) Medical History Anemia Cirrhosis H/O endocarditis DMII (diabetes mellitus, type 2) CKD (chronic kidney disease), stage III Hypertensive urgency Acute decompensated heart failure Opioid type dependence, unspecified Social History Smoking Status: Never smoker Tobacco Type: Cigarettes Cigarettes Per Day: 15; Second Hand Exposure: No; Do You Dip or Chew Tobacco: No; Hx Alcohol Use: No Hx Substance Use: No Preferred Language: Honduran Communication Ability: Effective Shortage Worker Required: No Beliefs That Will Affect Care: None marital status: Current Living Situation: Spouse Other Information That Helps Us Care for You: No Feels Safe at Home: Yes Safety Concerns: Feels Safe At This Time Assistive Devices: Glasses Allergies Allergies Allergy/AdvReac Type Severity Reaction Status Date / Time No Known Allergies Allergy Verified 03/26/24 22:47 Home Meds Home Medications Medication Instructions Recorded Confirmed oxycodone 10 mg tablet 10 mg PO QID 01/02/22 03/26/24 trazodone 100 mg tablet 100 mg PO HS 01/02/22 03/26/24 metoprolol succinate 25 mg 12.5 mg PO QAM 01/15/23 03/26/24 tablet,extended release 24 hr empagliflozin 10 mg tablet 10 mg PO QAM 01/31/23 03/26/24 (Jardiance) furosemide 40 mg tablet 40 mg PO QAM 01/31/23 03/26/24 amlodipine 10 mg tablet 10 mg PO QAM 03/26/24 03/26/24 citalopram 20 mg tablet 20 mg PO QAM 03/26/24 03/26/24 dapagliflozin propanediol 10 mg 10 mg PO QAM 03/26/24 03/26/24 tablet (Farxiga) empagliflozin 10 mg tablet 10 mg PO QAM 03/26/24 03/26/24 (Jardiance) spironolactone 25 mg tablet 12.5 mg PO QAM 03/26/24 03/26/24 Results & Data (ED) Vital Signs Vital Signs - 24 hr 03/26/24 23:00 03/26/24 23:30 Pulse Rate 60 62 Pulse Rate from SpO2 Sensor 59 L Respiratory Rate 12 Blood Pressure 126/51 L 128/62 Blood Pressure Mean 76 78 Pulse Oximetry 91 93 Oxygen Delivery Method Room Air Laboratory Data 03/27/24 04:32 03/27/24 04:32 Lab Results 03/26/24 03/26/24 Range/Units 18:48 19:27 WBC 11.29 H (4.8-10.8) K/ul RBC 3.90 L (4.70-6.10) M/uL Hgb 13.1 L (14.0-18.0) g/dl Hct 38.7 L (42.0-52.0) % MCV 99.2 (80.0-100.0) fL MCH 33.6 (25.0-34.0) pg MCHC 33.9 (32.0-36.0) g/dL RDW Std Deviation 49.8 H (36.4-46.3) fL RDW Coeff of Marjorie 13.6 (11.5-14.5) % Plt Count 170 (130-400) K/uL MPV 11.2 (9.4-12.4) fL Immature Gran % (Auto) 0.4 % Neut % (Auto) 66.7 % Lymph % (Auto) 18.4 % Pick[place] % (Auto) 9.6 % Eos % (Auto) 4.2 % Baso % (Auto) 0.7 % Neut # (Auto) 7.54 H (1.40-6.50) K/uL Lymph # (Auto) 2.08 (1.20-3.40) K/uL Pickens # (Auto) 1.08 H (0.11-0.59) K/uL Eos # (Auto) 0.47 (0.00-0.50) K/uL Baso # (Auto) 0.08 (0.00-0.20) K/uL Immature Gran # (Auto) 0.04 (0.01-0.20) K/uL PT 11.3 (9.0-12.0) Seconds INR 1.0 (0.9-1.1) APTT 29 (21-31) Seconds PTT Ratio 1.1 Sodium 135 L (136-145) mmol/L Potassium 4.7 (3.5-5.1) mmol/L Chloride 101 (98-107) mmol/L Carbon Dioxide 30 (21-32) mmol/L Anion Gap 4 (3-11) BUN 29 H (6-23) mg/dl Creatinine 1.54 H (0.6-1.4) mg/dl Est Cr Clr Drug Dosing 42.8 ml/min eGFR 46.75 BUN/Creatinine Ratio 18.8 (10-20) Glucose 101 H (70-99(Fasting)) mg/dl Calcium 8.5 L (8.6-10.3) mg/dl Magnesium 2.1 (1.7-2.4) mg/dl Total Bilirubin 1.2 H (0.2-1.0) mg/dl AST 56 H (13-39) U/L ALT 35 (7-52) U/L Alkaline Phosphatase 244 H (34-104) U/L Troponin I High Sens 7.3 (0-20) pg/ml B-Natriuretic Peptide 201 H (0-100) pg/ml Total Protein 8.2 (6.0-8.3) gm/dl Albumin 3.3 L (3.4-5.0) gm/dl Globulin 4.9 H (2.5-4.0) gm/dl Albumin/Globulin Ratio 0.7 L (0.9-2) TSH 1.908 (0.300-4.500) uIu/ml Adenovirus (PCR) Not Detected (NotDetected) B. pertussis DNA (PCR) Not Detected (NotDetected) B.parapertussis DNA PCR Not Detected (NotDetected) Lyme Disease Screen Negative (Negative) C. pneumoniae DNA (PCR) Not Detected (NotDetected) Coronavirus OC43 (PCR) Not Detected (NotDetected) Coronavirus HKU1 (PCR) Not Detected (NotDetected) Coronavirus 229E (PCR) Not Detected (NotDetected) SARS-CoV-2 (PCR) DETECTED A (NotDetected) Coronavirus NL63 (PCR) Not Detected (NotDetected) Human Metapneumovir PCR Not Detected (NotDetected) Influenza Type A (PCR) Not Detected (NotDetected) Influenza Type B (PCR) Not Detected (NotDetected) M. pneumoniae (PCR) Not Detected (NotDetected) Parainfluenza 1 (PCR) Not Detected (NotDetected) Parainfluenza 2 (PCR) Not Detected (NotDetected) Parainfluenza 3 (PCR) Not Detected (NotDetected) Parainfluenza 4 (PCR) Not Detected (NotDetected) RSV (PCR) Not Detected (NotDetected) Entero/Rhino (PCR) Not Detected (NotDetected) Group A Strep (PCR) NOT DETECTED (NotDetected) Administered Medications Amlodipine Besylate (Amlodipine Besylate 5 Mg Tab) 10 mg PO [facility] Stop: 04/26/24 08:59 Last Admin: 03/27/24 08:28 Dose: 10 mg Documented By: SYLVIE Citalopram Hydrobromide (Citalopram 20 Mg Tab) 20 mg PO [facility] Stop: 04/26/24 08:59 Last Admin: 03/27/24 08:29 Dose: 20 mg Documented By: SYLVIE Doxycycline Hyclate (Doxycycline Hyclate 100 Mg Cap) 100 mg PO BID [facility] Stop: 04/01/24 08:59 Last Admin: 03/27/24 21:01 Dose: 100 mg Documented By: Admin: 03/27/24 08:29 Dose: 100 mg Documented By: SYLVIE Heparin Sodium (Porcine) (Heparin Sod 5,000 Unit/0.5 Ml Vial) 5,000 units SQ Q8 [facility] Stop: 04/26/24 05:59 Last Admin: 03/27/24 21:59 Dose: 5,000 units Documented By: Admin: 03/27/24 14:54 Dose: 5,000 units Documented By: Admin: 03/27/24 06:34 Dose: 5,000 units Documented By: MIGUELITO Promethazine HCl (Phenergan) 6.25 mg in 50.25 mls @ 201 mls/hr IV Q6H PRN PRN Reason: Nausea And Vomiting Stop: 04/26/24 01:30 Last Infusion: 03/27/24 22:12 Dose: Infused Documented By: Admin: 03/27/24 21:57 Dose: 201 mls/hr Documented By: ELISE Insulin Aspart (Insulin Aspart Per Unit Charge) 0 units SC ACHS [facility] Stop: 04/26/24 01:37 Last Admin: 03/27/24 19:36 Dose: Not Given Documented By: Admin: 03/27/24 17:39 Dose: Not Given Documented By: Admin: 03/27/24 14:07 Dose: Not Given Documented By: Admin: 03/27/24 10:12 Dose: Not Given Documented By: SYLVIE Co-signed By: TRACY Admin: 03/27/24 02:38 Dose: Not Given Documented By: MIGUELITO Co-signed By: PAUL Metoprolol Succinate (Metoprolol Succ 25mg Ext Rel Tab) 12.5 mg PO QAM [facility] Stop: 04/26/24 08:59 Last Admin: 03/27/24 08:31 Dose: 12.5 mg Documented By: SYLVIE Oxycodone HCl (Oxycodone Hcl Ir 5 Mg Tab (Immediate Release)) 10 mg PO QID [facility] Stop: 04/10/24 08:59 Last Admin: 03/27/24 21:01 Dose: 10 mg Documented By: Admin: 03/27/24 17:49 Dose: 10 mg Documented By: Admin: 03/27/24 13:13 Dose: 10 mg Documented By: Admin: 03/27/24 08:32 Dose: 10 mg Documented By: SYLVIE Phenol (Chloraseptic (Phenol) 1.4% Soln 180 Ml Btl) 2 sprays MT Q4H PRN PRN Reason: Sore throat Stop: 04/26/24 12:28 Last Admin: 03/27/24 17:40 Dose: 2 sprays Documented By: Admin: 03/27/24 14:53 Dose: 2 sprays Documented By: BEN Trazodone HCl (Trazodone Hcl 100 Mg Tab) 100 mg PO HS [facility] Stop: 04/26/24 20:59 Last Admin: 03/27/24 21:57 Dose: 100 mg Documented By: ELISE Discontinued Medications Acetaminophen (Acetaminophen 500 Mg Tab) 1,000 mg PO NOW STA Stop: 03/26/24 20:57 Last Admin: 03/26/24 21:08 Dose: 1,000 mg Documented By: BEN(2) Albuterol (Albut/Ipratrop 3mg/0.5mg Neb 3 Ml Vial) 3 ml NEB NOW STA; Protocol Stop: 03/26/24 23:05 Last Admin: 03/26/24 23:31 Dose: 3 ml Documented By: MIGUELITO Albumin Human (Albumin 25%) 25 gm in 100 mls @ 50 mls/hr IV ONE ONE Stop: 03/27/24 00:52 Last Infusion: 03/27/24 01:33 Dose: Infused Documented By: Admin: 03/26/24 23:32 Dose: 50 mls/hr Documented By: MIGUELITO Oxycodone HCl (Oxycodone Hcl Ir 5 Mg Tab (Immediate Release)) 10 mg PO NOW STA Stop: 03/26/24 22:46 Last Admin: 03/26/24 23:31 Dose: 10 mg Documented By: MIGUELITO Imaging Data Radiologist's Impression: Chest X-Ray 03/26/24 17:21 EXAM: Portable AP chest radiograph TECHNIQUE: AP portable radiograph of the chest was obtained. INDICATION: Shortness of breath Comparison: Chest radiograph and thoracic CT February 03, 2023 FINDINGS: LINES and TUBES: None CARDIOVASCULAR: Cardiac silhouette is enlarged in size. LUNGS/PLEURA: No focal consolidation identified. Peribronchial cuffing that may be seen with bronchiolitis. Mild pulmonary vascular congestion no significant pleural fluid. Pleural scarring with pleural calcified plaques. No discernible pneumothorax. OSSEOUS/OTHER: No displaced acute osseous process identified. Chronic right-sided rib fractures. Surgical clips over the right upper quadrant of the abdomen, presumably from prior cholecystectomy.. IMPRESSION: Congestive changes of the cardiovascular system. Peribronchial cuffing that may be seen with bronchiolitis. Pleural calcifications and thickening were better delineated in the prior CT examination Electronically signed by Karan Caal 03-26-2024 6:[address] 03/26/24 17:26 Clinical History: Dizziness Technique: Axial computed tomography images were obtained of the brain without intravenous contrast. Comparison is made to the prior CT dated 12/09/2023 Findings: There is unchanged cerebral atrophy, within expected limits for the patient's age. Areas of decreased attenuation are seen within the periventricular white matter, likely representing chronic small vessel ischemic disease. There is no definite sign of acute or old infarction. No intracranial hemorrhage is evident. No definite mass lesion is seen on this noncontrast examination. There is no midline shift or other form of herniation. No hydrocephalus is seen. No fracture is identified. The orbits and the visualized paranasal sinuses appear unremarkable. The mastoid air cells appear clear. Impression: 1. Cerebral atrophy and chronic small vessel ischemic disease 2. Otherwise unremarkable noncontrast CT of the brain Electronically signed by Alexander Noguera 03-26-2024 6:11 PM Discharge Plan Visit Data Chief Complaint: Dizziness Stated Complaint: DIZZY, HEADACHE, ED Provider: Black Dang Discharge Problem: COVID-19, Generalized weakness, Dizziness Patient Disposition: Admitted As Inpatient Discharge Instructions Interventions: ED Discharge Assessment Last Done: 03/27/24 01:39
[2024-03-26] MEDS: ACETAMINOPHEN 500 MG TAB PO STA (21:08)
[2024-03-26 23:12] LABS: Magnesium 2.1 mg/dl (1.7-2.4)
--- OUTSIDE RECORDS SUMMARY | 2024-03-26 23:17 | External Medical Summary | Summary of Care ---
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 [facility] N/A: Stomach [employer] : ENDOSCOPY 11/15/2025 [id number] / / documented as of this encounter Visit Diagnoses Diagnosis Chronic fatigue- Primary Other malaise and fatigue Prostate CA (HCC) Malignant neoplasm of prostate documented in this encounter Advance Directives * Full Code (Latest Code Status on File) Date Activated Date Inactivated Comments 08/09/2016 2:37 PM 08/09/2016 7:17 PM This order r eflects the patients wishes and were consensually agreed upon. Care Teams Video News Editor Relationship Specialty Start Date End Date Deb Camara MD [address] [place] [facility] [address] PCP - General Internal Medicine 10/07/23 documented as of this encounter
--- OUTSIDE RECORDS SUMMARY | 2024-03-26 23:17 | External Medical Summary | Summary of Care ---
Author Name Unknown Organization [facility] Address [address] [place] [facility] [place] [address] Phone [phone] Care Team Providers Care Senior Peoplesoft Developer Name Role Phone Deb Camara MD Primary Care Provider [phone] Reason for Visit * Reason Comments Outpatient Testing Encounter Details Date Type Department Care Team (Late st Contact Info) Description 03/02/2024 12:00 PM EST Laboratory Laboratory, [facility] [address] [facility] [phone] [facility] [address] [facility] [address] Chronic fatigue; Prostate CA ([facility]) Allergies Active Allergy Reactions Criticality Noted Date Comments Lisinopril 12/05/2023 dizziness Losartan 05/24/2023 Dizziness documented as of this encounter (statuses as of 03/02/2024) Medications Blood Glucose Monitoring Suppl (ONETOUCH VERIO) w/Device KITIndications:DM type 2, not at goal ([facility]),Type 2 diabetes mellitus with hemoglobin A1c goal of less than 8.0% ([facility]) Use to check sugar daily E11.9 1 Kit 9 Active ONETOUCH DELICA LANCETS FINE MISCIndications:D M type 2, not at goal (HCC),Type 2 diabetes mellitus with hemoglobin A1c goal of less than 8.0% (HCC) Use to test blood sugar once daily- dx E11.9 1 Each 5 9 Active OneTouch Verio In Vitro Strip (Glucose Blood)Indications :DM type 2, not at goal (HCC),Type 2 diabetes mellitus with hemoglobin A1c goal of less than 8.0% (HCC) Use up check sugar daily E11.9 100 Strip 3 4 Active Empagliflozin 10 MG Oral Tablet (Jardiance) Take 1 Tablet by mouth in the morning. Obtaining from [facility] PAP. Active traZODone HCl 100 MG Oral Tablet [...] as of this encounter (statuses as of 03/02/2024) Active Problems Problem Noted Date Diagnosed Date [...] as of this encounter (statuses as of 03/02/2024) Resolved Problems Problem Noted Date Diagnosed Date [...] as of this encounter (statuses as of 03/02/2024) Immunizations Name Administration Dates Next Due COVID-19 mRNA, LNP-s, No Pre serve, 2-Dose Series (TMAT) 02/02/2021,06/14/2020,05/24/2020 COVID-19, LNP-s, No Preserve , Ellis-sucrose, Ages 12+ (TMAT) 10/08/2021 Pneumococcal Conjugate Vacc, 13 Valent (Prevnar) [...] No 09/22/2023 Does the household have a re gular source of income? (Household - for ages [...] No 09/22/2023 Are you (or your family) marit eless or worried that you might be [...] Care Team (Late st Contact Info) Description 03/02/2024 12:10 PM EST Imaging Radiology [address] [place] [address] Arrived 03/15/2024 11:10 AM EST Telemedicine Pharmacy, [place] Haskins [address] [facility] [place] [phone] [facility] [address] [facility] [place] [address] 05/25/2024 1:00 PM EST Telemedicine Radiation [facility] [place] [address] [facility] [place] [address] Jackson Munoz MD [address] [facility] [place] [address] 07/03/2024 2:40 PM EDT Office Visit Family Practice, Brian Carrero [address] [facility] [place] [phone] Jerzy Glez MD [address] [facility] [place] [address] 07/31/2024 11:40 AM EDT Office Visit Nephrology, [place] Cervantes [address] [facility] [place] [address] Kerri Garcia MD [address] [facility] [place] [address] 08/13/2024 9:30 AM EDT Cardiac Studies Cardiac Studies, [facility] [address] [facility] [address] 08/21/2024 11:00 AM EDT Office Visit Cardiology, [facility] [address] [facility] [place] [address] Sandra Laura CRNP 132 [facility] [place] [address] Pending Results Name Type Priority Associated Diagnoses Date /Time BNP, NT-PRO Lab Routine Chronic fatigue 03/02/2024 11:44 AM EST PSA Lab Routine Prostate CA (HCC) 03/02/2024 11:44 AM EST Scheduled Procedures Name Priority Associated Diagnoses Date/Ti [...] Additional history exists CKD PHOS USE SMARTSET 43549 10/08/202309/25, 08/17/2021, 03/06/2020, Additional history exists COVID-19 Vaccine ( season) 2023 12/30/2022, 10/08/2021, 02/02/2021, Additional history exists Colonoscopy 05/09/2024 05/09/2023, 04/28, 01/30/2019, Additional history exists Albumin/Creatinine Ratio 06/19/2024 024, 10/07/2022, 08/17/2021, Additional history exists GFR 07/03/2024 01/03/2024, 09/27, 09/20/2023, Additional history exists HbA1c 07/03/2024 01/03/2024, 08/26, 06/20/2023, Additional history exists Diabetic Foot Exam 09/12/2024 09/13/2023, 1 04/15/2019, 05/18/2018, Additional history exists Depression Monitoring 09/21/2024 09/22/2023, 024 B-12 01/02/2025 01/03/2024, 12/26, 02/16/2021, Additional history exists CKD HGB USE SMARTSET 61548 02/09/202502/09, 10/25/2023, 10/25/2023, Additional history exists DTap/Tdap [...] this encounter Medical Devices Implanted Type Area Service Engineer Device Identifier Shelf Expiration Date Model / Serial / Lot Lens 19.0 [id number] - [id number] - [id number] Implanted:Qty: 1 on 08/09/2016 by Madi Frederick MD at OR [facility] Right: Eye KIMMIE : SURGICAL 2018 [id number] 0 / [id number] / Hemostatic Clip Res 235cm - [id number] Implanted:Qty: 1 on 05/09/[address] MD at ENDOSCOPY [facility] N/A: Stomach [employer] : ENDOSCOPY 11/15/2025 [id number] / / documented as of this encounter Visit Diagnoses Diagnosis Chronic fatigue Other malaise and fatigue Prostate CA (HCC) Malignant neoplasm of prostate documented in this encounter Advance Directives * Full Code (Latest Code Status on File) Date Activated Date Inactivated Comments 08/09/2016 2:37 PM 08/09/2016 7:17 PM This order r eflects the patients wishes and were consensually agreed upon. Care Teams Senior Peoplesoft Developer Relationship Specialty Start Date End Date Deb Camara MD [address] [place] [address] PCP - General Internal Medicine 10/07/23 documented as of this encounter
--- OUTSIDE RECORDS SUMMARY | 2024-03-26 23:17 | External Medical Summary ---
Author Name Unknown Address Unknown Organization K01:[facility] [address] [place] [address] Laboratory Report Ordering Provider Test Date Status DORIE BENNETTRAMY 03/02/2024 11:44:08 Final Exclude Heart Failure: <300 pg/mL
Diagnose Heart Failure:
Age <50 yr: >450 pg/mL
50-75 yr: >900 pg/mL
>75 yr: >1800 pg/mL
GFR is 30-59 mL/min: >1200 pg/mL or Age- adjusted values
GFR <30 mL/min: do not use, not reliable

Prognostic threshold: 1000 pg/mL Observation Date Value Abnormality Reference (Units ) Status BNP, Pro-hormone 03/02/2024 11:44:08 855 Above high no rmal <300 (pg/mL) Final Performing Location [facility] [address] [place] [address]
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
--- OUTSIDE RECORDS SUMMARY | 2024-03-26 23:17 | External Medical Summary | Summary of Care ---
Author Name Unknown Organization [facility] Address [address] [place] [address] Phone [phone] Care Team Providers Care Bonderizer Name Role Phone Deb Camara MD Primary Care Provider [phone] Reason for Visit * Reason Onset Date Comments Medication Refill 03/04/2024 Encounter Details Date Type Department Care Team (Late st Contact Info) Description 03/04/2024 Refill [facility] [address] [place] [phone] Deb Camara MD [address] [place], [place] [id number] DM type 2, not at goal ([facility]); Type 2 diabetes mellitus with hemoglobin A1c goal of less than 8.0% ([facility]) Allergies Active Allergy Reactions Criticality Noted Date Comments Lisinopril 12/05/2023 dizziness Losartan 05/24/2023 Dizziness documented as of this encounter (statuses as of 03/04/2024) Medications Blood Glucose Monitoring Suppl (ONETOUCH VERIO) w/Device KITIndications:D M type 2, not at goal (HCC),Type 2 diabetes mellitus with hemoglobin A1c goal of less than 8.0% ([facility]) Use to check sugar daily E11.9 1 Kit 9 Active ONETOUCH ELIZABETH RIVASYO FINE MISCIndications: DM type 2, not at goal (HCC),Type 2 diabetes mellitus with hemoglobin A1c goal of less than 8.0% (HCC) Use to test blood sugar once daily- dx E11.9 1 Each 5 9 Active Empagliflozin 10 MG Oral Tablet (Jardiance) Take 1 Tablet by mouth in the morning. Obtaining from [facility] PAP. Active traZODone HCl 100 MG Oral Tablet (Desyrel)Indicat ions:Persistent insomnia Take 1 Tablet by mouth at bedtime. 90 Tablet 3 4 Active Furosemide 40 MG Oral Tablet (Lasix)Indicatio ns:Chronic [...] daily E11.9 100 Strip 3 4 Active amLODIPine Besylate 10 MG Oral Tablet (Norvasc)Indicat ions:HTN, goal below 130/80 Take 1 Tablet by mouth in the morning. 90 Tablet 3 4 Active OneTouch Verio In Vitro Strip (Glucose Blood)Indication s:DM type 2, not at goal (HCC),Type 2 diabetes mellitus with hemoglobin A1c goal of less than 8.0% (HCC) Use up check sugar daily E11.9 100 Strip 3 4 03/04/20 24 Discontin ued(Refil l) documented as of this encounter (statuses as of 03/04/2024) Active Problems Problem Noted Date Diagnosed Date [...] as of this encounter (statuses as of 03/04/2024) Resolved Problems Problem Noted Date Diagnosed Date [...] as of this encounter (statuses as of 03/04/2024) Immunizations Name Administration Dates Next Due COVID-19 mRNA, LNP-s, No Pre serve, 2-Dose Series ([employer]) 02/02/2021,06/14/2020,05/24/2020 COVID-19, LNP-s, No Preserve , Ellis-sucrose, [...] No 09/22/2023 Does the household have a presbyterian hospitallar source of income? (Household - for ages [...] encounter Miscellaneous Notes * Telephone Encounter - Charlotte Parisi [facility] - 03/04/2024 9:18 PM ESTSigned Prescriptions: Disp Refills OneTouch Verio In Vitro Strip (Glucose Blo*[address] St*3 Sig: Use up check sugar daily E11.9Authorizing Provider: Jenny CAMARA User: CHARLOTTE PARISI documented in this encounter Plan of Treatment Upcoming Encounters Date Type Department Care Team (Late st Contact Info) Description 03/15/2024 11:10 AM EST Telemedicine Pharmacy, [place] [facility] [place] [phone] [facility] [address] [facility] [address] 05/25/2024 1:00 PM EST Telemedicine Radiation [facility] [place] [address] [facility] [place] [address] Jackson Munoz MD [address] [facility] [place] [address] 07/03/2024 2:40 PM EDT Office Visit [facility], [place] [facility] [place] [phone] Jerzy Glez MD [address] [place] [address] 07/31/2024 11:40 AM EDT [facility] [place] [place] [address] Kerri Garcia MD 200 [facility] [place] [address] 08/13/2024 9:30 AM EDT Cardiac Studies Cardiac Studies, [facility] 132 [facility] [place] [address] 08/21/2024 11:00 AM EDT Office Visit Cardiology, [facility] [address] [facility] [place] [address] Sandra Laura CRNP 132 [facility] [place] [address] Scheduled Procedures Name Priority Associated Diagnoses Date/Ti [...] Additional history exists CKD PHOS USE SMARTSET 92640 10/08/202309/25, 08/17/2021, 03/06/2020, Additional history exists COVID-19 [...] Additional history exists CKD HGB USE SMARTSET 73353 02/09/202502/09, 10/25/2023, 10/25/2023, Additional history exists DTap/Tdap [...] this encounter Medical Devices Implanted Type Area Child Psychologist Device Identifier Shelf Expiration Date Model / Serial / Lot Lens 19.0 Cz70bd - [id number] - [id number] Implanted:Qty: 1 on 08/09/2016 by Madi Frederick MD at OR [facility] Right: Eye KIMMIE : SURGICAL 2018 [id number] 0 / [id number] / Hemostatic Clip Res 235cm - [id number] Implanted:Qty: 1 on 05/09/[address] MD at ENDOSCOPY [facility] N/A: Stomach [employer] : ENDOSCOPY 11/15/2025 [id number] / / documented as of this encounter Visit Diagnoses Diagnosis DM type 2, not at goal (HCC) Type II or unspecified type diabetes mellitus without mention of complication, not stated as uncontrolled Type 2 diabetes mellitus with hemoglobin A1c goal of less than 8.0% (HCC) documented in this encounter Advance Directives * Full Code (Latest Code Status on File) Date Activated Date Inactivated Comments 08/09/2016 2:37 PM 08/09/2016 7:17 PM This order r eflects the patients wishes and were consensually agreed upon. Care Teams Bonderizer Relationship Specialty Start Date End Date Deb Camara MD [address] [place], [place] [phone] PCP - General Internal Medicine 10/07/23 documented as of this encounter
--- OUTSIDE RECORDS SUMMARY | 2024-03-26 23:17 | External Medical Summary | Summary of Care ---
Author Name Unknown Organization [facility] Address [address] [facility] [address] Phone [phone] Care Team Providers Care Tow Motor Driver Name Role Phone Deb Camara MD Primary Care Provider [phone] Reason for Visit * Reason Onset Date Comments Medication Refill 03/04/2024 Encounter Details Date Type Department Care Team (Late st Contact Info) Description 03/04/2024 Refill Cardiology, [facility] [address] [place] [address] Sandra Crane CRNP [address] [place] [address] HTN, goal below 130/80 Allergies Active Allergy Reactions Criticality Noted Date [...] than 8.0% ([facility]) Use up check sugar daily E11.9 100 Strip 3 4 Active Empagliflozin 10 MG Oral Tablet (Jardiance) Take 1 Tablet by mouth in the morning. [facility] P[facility]. Active traZODone HCl 100 MG [...] the morning. 45 Tablet 1 4 Active amLODIPine Besylate 10 MG Oral Tablet (Norvasc)Indicat ions:HTN, goal below 130/80 Take 1 Tablet by mouth in the morning. 90 Tablet 3 4 Active amLODIPine Besylate 10 MG Oral Tablet (Norvasc)Indicat ions:HTN, goal below 130/80 Take 1 Tablet by mouth in the morning. 90 Tablet 3 4 03/04/20 24 Discontin [...] mRNA, LNP-s, No Pre serve, 2-Dose Series ([employer]) 02/02/2021,06/14/2020,05/24/2020 COVID-19, LNP-s, No Preserve , Ellis-sucrose, Ages 12+ (Pfizer) 10/08/2021 Pneumococcal Conjugate Vacc, 13 Valent (Prevnar) 03/19/2015 Pneumococcal Polysaccharide PPV23 (Pneumovax) 08/09/2013 Seasonal Influenza Vac., MDV , IM, 0.5 mL (Fluzone) 02/06/2013,02/10/2012,01/26/2011,1107/2009,01/30/2009,02/08/2006 Seasonal Influenza, High Dos e, Trivalent, PF, [...] 09/22/2023 Does the household have a re lar source of income? (Household - for ages [...] Miscellaneous Notes * Telephone Encounter - Nusrat Baker RPh - 03/04/2024 7:39 PM EST Signed Prescriptions: Disp Refills amLODIPine Besylate 10 MG Oral Tablet (Nor*90 Tab*3 Sig: Take 1 Tablet by mouth in the morning.Authorizing Provider: SANDRA CRANE User: NUSRAT BAKER documented in this encounter Plan of Treatment Upcoming Encounters Date Type Department Care Team (Late st Contact Info) Description 03/15/2024 11:10 AM EST Telemedicine Pharmacy, [address] [place] [phone] Brian [facility] [address] [facility] [place] [address] 05/25/2024 1:00 PM EST Telemedicine [facility] [place] [address] [facility] [place] [address] Jackson Munoz MD [address] [facility] [place] [address] 07/03/2024 2:40 PM EDT Office Visit Family [facility] [address] [facility] [place] [phone] Jerzy Glez MD [address] [address] 07/31/2024 11:40 AM EDT Office Visit Nephrology, [facility] [address] [facility] [place] [address] GarciaKerri choi MD [address] [facility] [place] [address] 08/13/2024 9:30 AM EDT Cardiac Studies [facility], [facility] [address] 08/21/2024 11:00 AM EDT Office Visit [facility], [facility] [address] Sandra Crane CRNP 132 [facility] [place] [address] Scheduled Procedures Name Priority Associated Diagnoses Date/Ti [...] Additional history exists CKD PHOS USE SMARTSET 51519 10/08/202309/25, 08/17/2021, 03/06/2020, Additional history exists COVID-19 [...] Additional history exists CKD HGB USE SMARTSET 78715 02/09/202502/09, 10/25/2023, 10/25/2023, Additional history exists DTap/Tdap [...] this encounter Medical Devices Implanted Type Area Ur Coordinator Device Identifier Shelf Expiration Date Model / Serial / Lot Lens 19.0 [id number] - [id number] - [id number] Implanted:Qty: 1 on 08/09/2016 by Madi Frederick MD at OR [facility] Right: Eye KIMMIE : SURGICAL 2018 [id number] / [id number] / Hemostatic Clip Res 235cm - [id number] Implanted:Qty: 1 on 05/09/[address] MD at [facility]OSCOPY [facility] N/A: Stomach [employer] : ENDOSCOPY 11/15/2025 [id number] / / documented as of this encounter Visit Diagnoses Diagnosis HTN, goal below 130/80 Unspecified essential hypertension documented in this encounter Advance Directives * Full Code (Latest Code Status on File) Date Activated Date Inactivated Comments 08/09/2016 2:37 PM 08/09/2016 7:17 PM This order r eflects the patients wishes and were consensually agreed upon. Care Teams Tow Motor Driver Relationship Specialty Start Date End Date Deb Camara MD [address] [place] [address] PCP - General Internal Medicine 10/07/23 documented as of this encounter
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
--- OUTSIDE RECORDS SUMMARY | 2024-03-26 23:17 | External Medical Summary | Summary of Care ---
Author Name Unknown Organization [facility] Address [address] [place] [address] Phone [phone] Care Team Providers Care Crossword Puzzle Maker Name Role Phone Deb Camara MD Primary Care Provider [phone] Reason for Visit * Reason Onset Date Comments Medication Refill 03/04/2024 Encounter Details Date Type Department Care Team (Late st Contact Info) Description 03/04/2024 Refill [facility] [address] [place] [phone] Jerzy Glez MD [address] [place] [phone] Persistent insomnia Allergies Active Allergy Reactions Criticality Noted Date Comments Lisinopril 12/05/2023 dizziness Losartan 05/24/2023 Dizziness documented as of this encounter (statuses as of 03/06/2024) Medications Blood Glucose Monitoring Suppl (ONETOUCH VERIO) w/Device KITIndications:D M type 2, not at goal ([facility]),Type 2 diabetes mellitus with hemoglobin A1c goal of less than 8.0% ([facility]) Use to check sugar daily E11.9 1 Kit 9 Active ONETOUCH DELICA LANCETS FINE MISCIndications: DM type 2, not at goal ([facility]),Type 2 diabetes mellitus with hemoglobin A1c goal of less than 8.0% ([facility]) Use to test blood sugar once daily- dx E11.9 1 Each 5 9 Active Empagliflozin 10 MG Oral Tablet (Jardiance) Take 1 Tablet by mouth in the morning. Obt[facility] from [facility] PAP. Active Furosemide 40 MG Oral Tablet (Lasix)Indicatio [...] Blood)Indication s:DM type 2, not at goal ([facility]),Type 2 diabetes mellitus with hemoglobin A1c goal of less than 8.0% ([facility]) Use up check sugar daily E11.9 [...] mRNA, LNP-s, No Pre serve, 2-Dose Series ([employer]) 02/02/2021,06/14/2020,05/24/2020 COVID-19, LNP-s, No Preserve , Ellis-sucrose, [...] encounter Miscellaneous Notes * Telephone Encounter - Sumaya Koch RPh - 03/06/2024 8:43 AM ESTSigned Prescriptions: Disp Refills traZODone HCl 100 MG Oral Tablet (Desyrel) 90 Tab*1 Sig: Take 1 Tablet by mouth at bedtime.Authorizing Provider: Jenny CAMARA User: SUMAYA KOCH documented in this encounter Plan of Treatment Upcoming Encounters Date Type Department Care Team (Late st Contact Info) Description 03/15/2024 11:10 AM EST Telemedicine [address] [place] [phone] [facility] [address] [facility] [address] 05/25/2024 1:00 PM [facility] [place] [address] [facility] [place] [address] Jackson Munoz MD [address] [facility] [place] [address] 07/03/2024 2:40 PM EDT Office Visit [facility] [address] [place] [phone] Jerzy Glez MD 226 [place] [address] 07/31/2024 11:40 AM EDT Office Visit Nephrology, [facility] 200 [facility] [place] [address] Kerri Garcia MD 200 [facility] [place] [address] 08/13/2024 9:30 AM EDT Cardiac Studies Card[facility], [facility] [address] 08/21/2024 11:00 AM EDT Office Visit Cardiology, [facility] [address] [facility] [address] Sandra Laura CRNP 132 [place] [address] Scheduled Procedures Name Priority Associated Diagnoses Date/Ti [...] Additional history exists CKD PHOS USE SMARTSET 58221 10/08/202309/25, 08/17/2021, 03/06/2020, Additional history exists COVID-19 [...] Additional history exists CKD HGB USE SMARTSET 42857 02/09/202502/09, 10/25/2023, 10/25/2023, Additional history exists DTap/Tdap [...] this encounter Medical Devices Implanted Type Area Sheet Mill Supervisor Device Identifier Shelf Expiration Date Model / Serial / Lot Lens 19.0 Cz70bd - [id number] - [id number] Implanted:Qty: 1 on 08/09/2016 by Madi Frederick MD at OR [facility] Right: Eye KIMMIE : SURGICAL 2018 [id number] 0 / [id number] / Hemostatic Clip Res 235cm - [id number] Implanted:Qty: 1 on 05/09/[address] MD at ENDOSCOPY [facility] N/A: Stomach [employer] : ENDOSCOPY 11/15/2025 [id number] / / documented as of this encounter Visit Diagnoses Diagnosis Persistent insomnia Persistent disorder of initiating or maintaining sleep documented in this encounter Advance Directives * Full Code (Latest Code Status on File) Date Activated Date Inactivated Comments 08/09/2016 2:37 PM 08/09/2016 7:17 PM This order r eflects the patients wishes and were consensually agreed upon. Care Teams Crossword Puzzle Maker Relationship Specialty Start Date End Date Deb Camara MD [address] [place] [address] PCP - General Internal Medicine 10/07/23 documented as of this encounter
--- OUTSIDE RECORDS SUMMARY | 2024-03-26 23:17 | External Medical Summary ---
Author Name Unknown Address Unknown Organization K01:[facility] [address] [place] [address] Laboratory Report Ordering Provider Test Date Status FLACO BENNETTPEDRO 03/02/2024 11:44:08 Final Observation Date Value Abnormality Reference (Units ) Status PSA 03/02/2024 11:44:08 0.09 <4.10 (ng/ mL) Final Performing Location [facility] - [address] [place] [address]
--- OUTSIDE RECORDS SUMMARY | 2024-03-26 23:17 | External Medical Summary | Summary of Care ---
Author Name Unknown Organization [facility] Address [address] [place] [address] Phone [phone] Care Team Providers Care Youth Advocate Name Role Phone Deb Camara MD Primary Care Provider [phone] Reason for Visit * Reason Onset Date Comments Medication Refill 03/04/2024 Encounter Details Date Type Department Care Team (Late st Contact Info) Description 03/04/2024 Refill [facility] [address] [place] [phone] Deb Camara MD [address] [place] [address] [phone] Allergies Active Allergy Reactions Criticality Noted Date Comments Lisinopril 12/05/2023 dizziness Losartan 05/24/2023 Dizziness documented as of this encounter (statuses as of 03/05/2024) Medications Blood Glucose Monitoring Suppl (ONETOUCH VERIO) w/Device KITIndications:DM type 2, not at goal ([facility]),Type 2 diabetes mellitus with hemoglobin A1c goal of less than 8.0% ([facility]) Use to check sugar daily [...] in the morning. Obtaining from ALIYA CABALLERO. Active traZODone HCl 100 MG Oral Tablet [...] the morning. 90 Tablet 3 4 Active documented as of this encounter (statuses as of 03/05/2024) Active Problems Problem Noted Date Diagnosed Date [...] as of this encounter (statuses as of 03/05/2024) Resolved Problems Problem Noted Date Diagnosed Date [...] as of this encounter (statuses as of 03/05/2024) Immunizations Name Administration Dates Next Due COVID-19 mRNA, LNP-s, No Pre serve, 2-Dose Series ([employer]) 02/02/2021,06/14/2020,05/24/2020 COVID-19, LNP-s, No Preserve , Ellis-sucrose, [...] encounter Miscellaneous Notes * Telephone Encounter - Becyk Ang RPh - 03/05/2024 6:33 PM EST Refused Prescriptions: Disp Refills Citalopram Hydrobromide 20 MG Oral Tablet *30 Tab*11 Sig: Take 1 Tablet by mouth in the morning.Refused By: BECKY ANG for Refusal: Too soonReason for Refusal Comment: Refills sent 02/15 documented in this encounter Plan of Treatment Upcoming Encounters Date Type Department Care Team (Late st Contact Info) Description 03/15/2024 11:10 AM EST Telemedicine Pharmacy, [address] [place] [phone] [facility] [address] [place] [address] 05/25/2024 1:00 PM EST Telemedicine [facility] [address] [place] [address] Jackson Munoz MD [address] [place] [address] 07/03/2024 2:40 PM EDT Office Visit [facility], [facility] [address] [facility] [phone] Jerzy Glez MD [address] [place] [address] 07/31/2024 11:40 AM EDT Office Visit Nephrology, [facility] [address] [facility] [place] [address] Kerri Garcia MD [address] [facility] [place] [address] 08/13/2024 9:30 AM EDT Cardiac Studies Cardiac Studies, [facility] [address] [facility] [place] [address] 08/21/2024 11:00 AM EDT Office Visit Cardiology, [facility] [address] [facility] [place] [address] Sandra Laura CRNP [address] [facility] [place] [address] Scheduled Procedures Name Priority Associated Diagnoses Date/Ti [...] Additional history exists CKD PHOS USE SMARTSET 86707 10/08/202309/25, 08/17/2021, 03/06/2020, Additional history exists COVID-19 [...] Additional history exists CKD HGB USE SMARTSET 78807 02/09/202502/09, 10/25/2023, 10/25/2023, Additional history exists DTap/Tdap [...] encounter Medical Devices Implanted Type Area Executive Director Global Brand Marketing Device Identifier Shelf Expiration Date Model / Serial / Lot Lens 19.0 Cz70bd - [id number] - [id number] Implanted:Qty: 1 on 08/09/2016 by Madi Frederick MD at OR [facility] Right: Eye KIMMIE : SURGICAL 2018 [id number] / [id number] / Hemostatic Clip Res 235cm - [id number] Implanted:Qty: 1 on 05/09/[address] MD at ENDOSCOPY [facility] N/A: Stomach [employer] : ENDOSCOPY 11/15/2025 [id number] / / documented as of this encounter Advance Directives * Full Code (Latest Code Status on File) Date Activated Date Inactivated Comments 08/09/2016 2:37 PM 08/09/2016 7:17 PM This order r eflects the patients wishes and were consensually agreed upon. Care Teams Youth Advocate Relationship Specialty Start Date End Date Deb Camara MD [address] [place] [address] PCP - General Internal Medicine 10/07/23 documented as of this encounter
--- OUTSIDE RECORDS SUMMARY | 2024-03-26 23:17 | External Medical Summary | Summary of Care ---
Author Name Unknown Organization [facility] Address [address] [facility] [place] [address] Phone [phone] Care Team Providers Care Frame Feeder Name Role Phone Deb Camara MD Primary Care Provider [phone] Reason for Visit * Reason Comments Dosage Adjustment Via Phone (anticoag Cl inic) Hypertension Encounter Details Date Type Department Care Team (Late st Contact Info) Description 03/15/2024 11:10 AM EST Telemedicine Pharmacy, [facility] [address] [place] [phone] [facility] [address] [place] [address] HTN, goal below 130/80* Allergies Active Allergy Reactions Criticality Noted Date Comments Lisinopril 12/05/2023 dizziness Losartan 05/24/2023 Dizziness documented as of this encounter (statuses as of 03/15/2024) Medications Blood Glucose Monitoring Suppl (ONETOUCH VERIO) [...] by mouth in the morning. Obtaining from [facility]. Active Citalopram Hydrobromide 20 MG [...] Active Furosemide 40 MG Oral Tablet (Lasix)Indication s:HTN, goal below 130/80,Chronic heart failure with preserved ejection fraction (HCC) TAKE 1 tablet daily 30 Tablet 11 4 Active amLODIPine Besylate 10 MG Oral Tablet (Norvasc)Indicati ons:HTN, goal below 130/80 Take 1 Tablet by mouth in the morning. 90 Tablet 3 4 Active documented as of this encounter (statuses as of 03/15/2024) Active Problems Problem Noted Date Diagnosed Date [...] as of this encounter (statuses as of 03/15/2024) Resolved Problems Problem Noted Date Diagnosed Date [...] as of this encounter (statuses as of 03/15/2024) Immunizations Name Administration Dates Next Due COVID-19 mRNA, LNP-s, No Pre serve, 2-Dose Series ([facility]) 02/02/2021,06/14/2020,05/24/2020 COVID-19, LNP-s, No Preserve , Ellis-sucrose, [...] as of this encounter Progress Notes * Analilia Ceja, [facility] - 03/15/2024 11:13 AM EST [facility] - Hypertension Management This patient was contacted as part of the [facility] Nephrology 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 Patient Phone Numbers Spoke to patient's via home Blood Pressure Goal: 130/80 mmHg Current Hypertension Medications: Amlodipine 10 mg in AM Furosemide 40 mg in AM DEC Metoprolol Succinate ER 12.5 mg in AM RESTART Spironolactone 12.5 mg once daily in AM Experiencing symptoms related to elevated BP: No BP Readings from Last 3 Encounters: 02/29/24 130/42 02/27/24 118/49 02/10/24 136/76 Pulse Readings from Last 3 Encounters: 02/29/24 62 02/27/24 58 02/10/24 66 Recent Labs Units 01/03/24 1459 10/25/23 1025 09/20/23 1514 SODIUM - [facility] mmol/L 141 138 139 POTASSIUM - [facility] mmol/L 4.3 4.1 4.4 CHLORIDE - [facility] mmol/L 102 101 103 CO2 - [facility] mmol/L 28 27 25 CREATININE - [facility] mg/dL 1.6* 1.5* 1.8* BUN - [facility] mg/dL 24* 26* 28* ASSESSMENT & PLAN: BP has been 130s systolic at home. Patient having some dizzy spells, but not consistently. No issues otherwise. Will continue to monitor and reach out to [facility] if BP trends high 130s and 140s. MEDICATION CHANGES: none Hypertension Medications: Amlodipine 10 mg in AM Furosemide 40 mg in AM Metoprolol Succinate ER 12.5 mg in AM RESTART Spironolactone 12.5 mg once daily in AM HEALTH MAINTENANCE INTERVENTIONS: Labs: Ordered & Scheduled: Up to date FOLLOW UP: YELITZA Ceja [facility] Clinical Pharmacist - Carpentry Supervisor Medication Therapy Management Clinic 03/15/2024, 11:13 AM documented in this encounter Plan of Treatment Upcoming Encounters Date Type Department Care Team (Late st Contact Info) Description 05/25/2024 1:00 PM EST Telemedicine [facility] [address] [facility] [place] [address] Jackson Munoz MD [address] [facility] [place] [address] 07/03/2024 2:40 PM EDT [facility] [address] [facility] [place] [phone] Jerzy Glez MD [address] [facility] [place] [address] 07/31/2024 11:40 AM EDT Office Visit Nephrology, [facility] [address] [place] [address] Kerri Garcia MD [address] [place] [address] 08/13/2024 9:30 AM EDT Cardiac Studies Cardiac Studies, [facility] [address] [place] [address] 08/21/2024 11:00 AM EDT Office Visit Cardiology, [facility] [address] [place] [address] Sandra Laura CRNP [address] [place] [address] Scheduled Procedures Name Priority Associated Diagnoses Date/Ti [...] Additional history exists CKD PHOS USE SMARTSET 31844 10/08/202309/25, 08/17/2021, 03/06/2020, Additional history exists COVID-19 [...] Additional history exists CKD HGB USE SMARTSET 18484 02/09/202502/09, 10/25/2023, 10/25/2023, Additional history exists DTap/Tdap [...] this encounter Medical Devices Implanted Type Area [employer] Device Identifier Shelf Expiration Date Model / Serial / Lot Lens 19.0 Cz70bd - [id number] - [id number] Implanted:Qty: 1 on 08/09/2016 by Madi Frederick MD at OR [facility] Right: Eye KIMMIE : SURGICAL 2018 [id number] 0 / [id number] / Hemostatic Clip Res 235cm - [id number] Implanted:Qty: 1 on 05/09/[address] MD at ENDOSCOPY [facility] N/A: Stomach [employer] : ENDOSCOPY 11/15/2025 [id number] / / documented as of this encounter Visit Diagnoses Diagnosis HTN, goal below 130/80- Primary Unspecified essential hypertension documented in this encounter Advance Directives * Full Code (Latest Code Status on File) Date Activated Date Inactivated Comments 08/09/2016 2:37 PM 08/09/2016 7:17 PM This order r eflects the patients wishes and were consensually agreed upon. Care Teams Frame Feeder Relationship Specialty Start Date End Date Deb Camara MD PCP - General Internal Medicine 10/07/23 documented as of this encounter
--- OUTSIDE RECORDS SUMMARY | 2024-03-26 23:18 | External Medical Summary | Summary of Care ---
Author Name Unknown Organization [facility] Address [address] [place] [place] [place] [address] Phone [phone] Care Team Providers Care Wad Compressor Operator Adjuster Name Role Phone Deb Camara MD Primary Care Provider [phone] Reason for Visit * Reason Comments Dosage Adjustment In Person (Anticoag Cl inic) Hypertension Encounter Details Date Type Department Care Team (Late st Contact Info) Description 02/27/2024 3:00 PM EST Office Visit Pharmacy, [place] [address] [facility] [place] [phone] [facility] [address] [place] [facility] [place] [address] HTN, goal below 130/80*; Chronic right-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); Chronic heart failure with preserved ejection fraction (HCC) Allergies Active Allergy Reactions Criticality Noted Date Comments Lisinopril 12/05/2023 dizziness Losartan 05/24/2023 Dizziness documented as of this encounter (statuses as of 02/27/2024) Medications Blood Glucose Monitoring Suppl ([employer] VERIO) w/Device KITIndications:D M type 2, not at goal ([facility]),Type 2 diabetes mellitus with hemoglobin A1c goal of less than 8.0% ([facility]) Use to check sugar daily E11.9 1 Kit 9 Active ONETOUCH ELIZABETH LANCETS FINE MISCIndications: DM type 2, not at goal ([facility]),Type 2 diabetes mellitus with hemoglobin A1c goal of less than 8.0% ([facility]) Use to test blood sugar [...] by mouth in the morning. Obtaining from Nikita CABALLERO. Active traZODone HCl 100 MG Oral [...] the morning. 45 Tablet 1 4 Active Metoprolol Succinate ER 25 MG Oral Tablet Extended Release 24 Hour (toPROL XL)Indications:C hronic right-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) Take 1 Tablet by mouth in the morning. 90 Tablet 2 4 02/27/20 24 Discontin ued(Refil l) documented as of this encounter (statuses as of 02/27/2024) Active Problems Problem Noted Date Diagnosed Date [...] as of this encounter (statuses as of 02/27/2024) Resolved Problems Problem Noted Date Diagnosed Date [...] as of this encounter (statuses as of 02/27/2024) Immunizations Name Administration Dates Next Due COVID-19 mRNA, LNP-s, No Pre serve, 2-Dose Series ([employer]) 02/02/2021,06/14/2020,05/24/2020 COVID-19, LNP-s, No Preserve , Ellis-sucrose, [...] No 09/22/2023 Does the household have a [facility] treatment center[facility] source of income? (Household - for ages [...] Sign Reading Time Taken Comments Blood Pressure 118/49 02/27/2024 3:33 PM EST Pulse 58 02/27/2024 3:33 PM EST Temperature - - Respiratory Rate - - Oxygen Saturation - - Inhaled Oxygen Concentration - - Weight - - Height - - Body Mass Index - - documented in this encounter Progress Notes * Analilia Ceja, [facility] - 02/27/2024 3:08 PM EST [facility] - Hypertension Management This patient was contacted as part of the [facility] Nephrology HTN remote monitoring check pilot. Blood Pressure Goal: 130/80 mmHg Type of Alert: Yellow Current Hypertension Medications: Amlodipine 10 mg in AM Furosemide 40 mg in AM Metoprolol Succinate ER 25 mg in AM Experiencing symptoms related to elevated BP: No BP Readings from Last 3 Encounters: 02/27/24 118/49 02/10/24 136/76 01/03/24 102/56 Pulse Readings from Last 3 Encounters: 02/27/24 58 02/10/24 66 12/19/23 65 Recent Labs Units 01/03/24 1459 10/25/23 1025 09/20/23 1514 SODIUM - [facility] mmol/L 141 138 139 POTASSIUM - [facility] mmol/L 4.3 4.1 4.4 CHLORIDE - [facility] mmol/L 102 101 103 CO2 - [facility] mmol/L 28 27 25 CREATININE - [facility] mg/dL 1.6* 1.5* 1.8* BUN - [facility] mg/dL 24* 26* 28* ASSESSMENT & PLAN: Per patient and , BP readings have all been above 130/80 at home recently. BP checked today in clinic and it was 118 systolic w/ pulse of 58. Patient notes that he might have taken a spironolactone dose today and is not sure why he took it- he has not been taking it routinely since we had it onhold due to the dizziness. Denies any recent issues with dizziness. I am recommending decreasing the BB dose due to the lower pulse, and less potency on BP lowering, and restarting the aldactone. Patient educated on the following: Reviewed proper home blood pressure measurement technique with patient including: -Use a validated upper arm blood pressure cuff (www.validatebp.org has a list; Omron and A&D are trusted brands) -Empty bladder and do not use tobacco, drink caffeinated beverages, or exercise for 30 minutes prior to checking -Rest quietly for 5 minutes prior to checking; do not talk while checking -Sit in a chair with support. Place both feet flat on the ground. Do not cross legs. Rest arm comfortably at heart level on table -Place cuff above bend of elbow; ensure cuff is appropriately sized -Take at least 2 readings 1 minute apart before morning medications and in the evening before supper; record the average of the 2 readings on a log or in a journal MEDICATION CHANGES: addition of a new medication discontinuation of a medication at a higher dose Hypertension Medications: Amlodipine 10 mg in AM Furosemide 40 mg in AM DEC Metoprolol Succinate ER 12.5 mg in AM RESTART Spironolactone 12.5 mg once daily in AM HEALTH MAINTENANCE INTERVENTIONS: Labs: Ordered & Scheduled: Up to date FOLLOW UP: In 3 weeks via phone-- I think we resolved the screening calls issue today finally 03/15/2024 I spent a total of 20-29 minutes (exact time 24 mins) on the date of service in preparation, delivery, and documentation of the care provided to Delvis Munoz excluding any time spent in the performance of separately billed services. Analilia Ceja [facility] Clinical Pharmacist - Cellular Tower Climber Medication Therapy Management Clinic 02/27/2024, 3:22 PM documented in this encounter Plan of Treatment Upcoming Encounters Date Type Department Care Team (Late st Contact Info) Description 02/29/2024 3:00 PM EST Office Visit [facility] [phone] Jerzy Glez MD [address] [place] [address] 03/15/2024 11:10 AM EST [facility] [place] [facility] [phone] [facility] [address] [place] [address] 05/25/2024 1:00 PM EST Telemedicine [facility] [place] [address] [facility] [place] [address] Jackson Munoz MD [address] [facility] [place] [address] 07/31/2024 11:40 AM EDT Office Visit Nephrology, [facility] [address] [place], [place] [address] Kerri Garcia MD [address] [place] [address] 08/13/2024 9:30 AM EDT Cardiac Studies Cardiac Studies, [facility] [address] [place] [address] 08/21/2024 11:00 AM EDT Office Visit Cardiology, [facility] [address] [place] [address] Sandra Laura CRNP [address] [place] [address] Scheduled Procedures Name Priority Associated Diagnoses Date/Ti [...] Additional history exists CKD PHOS USE SMARTSET 46061 10/08/202309/25, 08/17/2021, 03/06/2020, Additional history exists COVID-19 [...] Additional history exists CKD HGB USE SMARTSET 77813 02/09/202502/09, 10/25/2023, 10/25/2023, Additional history exists DTap/Tdap [...] this encounter Medical Devices Implanted Type Area Edge Stainer Machine Device Identifier Shelf Expiration Date Model / Serial / Lot Lens 19.0 Cz70bd - [id number] - [id number] Implanted:Qty: 1 on 08/09/2016 by Madi Frederick MD at OR [facility] Right: Eye KIMMIE : SURGICAL 2018 [id number] 0 / [id number] / Hemostatic Clip Res 235cm - [id number] Implanted:Qty: 1 on 05/09/[address] MD at ENDOSCOPY [facility] N/A: Stomach [employer] : ENDOSCOPY 11/15/2025 [id number] / / documented as of this encounter Visit Diagnoses Diagnosis HTN, goal below 130/80- Primary Unspecified essential hypertension Chronic right-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) Congestive heart failure, unspecified Chronic heart failure with preserved ejection fraction (HCC) documented in this encounter Advance Directives * Full Code (Latest Code Status on File) Date Activated Date Inactivated Comments 08/09/2016 2:37 PM 08/09/2016 7:17 PM This order r eflects the patients wishes and were consensually agreed upon. Care Teams Wad Compressor Operator Adjuster Relationship Specialty Start Date End Date Deb Camara MD [address] [facility] [place], [place] [phone] PCP - General Internal Medicine 10/07/23 documented as of this encounter
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
--- OUTSIDE RECORDS SUMMARY | 2024-03-26 23:18 | External Medical Summary | Summary of Care ---
Author Name Unknown Organization [facility] Address [address] [place] [address] Phone [phone] Care Team Providers Care Business Area Manager Name Role Phone Deb Camara MD Primary Care Provider [phone] Reason for Visit * Reason Onset Date Comments Patient Assistance Program 02/13/2024 Encounter Details Date Type Department Care Team (Late st Contact Info) Description 02/13/2024 Telephone Pharmacy, [place] [address] [place] [phone] Analilia Ceja, [facility] [address] [place] [address] Patient Assistance Program Allergies Active Allergy Reactions Criticality Noted Date Comments Lisinopril 12/05/2023 dizziness Losartan 05/24/2023 Dizziness documented as of this encounter (statuses as of 02/13/2024) Medications Blood Glucose Monitoring Suppl (ONETOUCH VERIO) w/Device KITIndications:DM type 2, not at goal ([facility]),Type 2 diabetes mellitus with hemoglobin A1c goal [...] by mouth in the morning. Obtaining from [facility] PAP. Active traZODone HCl 100 MG Oral [...] as of this encounter (statuses as of 02/13/2024) Active Problems Problem Noted Date Diagnosed Date [...] as of this encounter (statuses as of 02/13/2024) Resolved Problems Problem Noted Date Diagnosed Date [...] as of this encounter (statuses as of 02/13/2024) Immunizations Name Administration Dates Next Due COVID-19 [...] encounter Miscellaneous Notes * Telephone Encounter - Analilia Ceja [facility] - 02/13/2024 8:05 AM EST Patient is currently getting Jardiance through [facility], but with their eligibility requirements changing, are there other avenues to pursue for patient to continue to get jardiance at a reasonable cost? If not, could [facility] please look into farxiga 10 mg? Thanks, Analilia Ceja, PharmD, BCACP Clinical Pharmacist Medication Therapy Disease Management 02/13/2024, 8:06 AM documented in this encounter Plan of Treatment Upcoming Encounters Date Type Department Care Team (Late st Contact Info) Description 02/14/2024 1:30 PM EST Telemedicine Pharmacy, [address] [address] [facility] [address] [place] [address] 05/25/2024 1:00 PM EST Telemedicine [facility] [place] [address] [facility] [place] [address] Jackson Munoz MD [address] [facility] [place] [address] 07/31/2024 11:40 AM EDT Office Visit Nephrology, [place] [address] [place] [address] Kerri Garcia MD [address] [place] [address] 08/13/2024 9:30 AM EDT Cardiac Studies [facility] Studies, [facility] [address] [facility] [address] 08/21/2024 11:00 AM EDT Office Visit Cardiology, [facility] [address] [facility] [place] [address] Sandra Laura CRNP [address] [facility] [place] [address] Scheduled Procedures Name Priority Associated Diagnoses Date/Ti [...] Additional history exists CKD PHOS USE SMARTSET 11583 10/08/202309/25, 08/17/2021, 03/06/2020, Additional history exists COVID-19 [...] Additional history exists CKD HGB USE SMARTSET 12256 02/09/202502/09, 10/25/2023, 10/25/2023, Additional history exists DTap/Tdap [...] this encounter Medical Devices Implanted Type Area Architect Internship Device Identifier Shelf Expiration Date Model / Serial / Lot Lens 19.0 Cz70bd - [id number] - [id number] Implanted:Qty: 1 on 08/09/2016 by Madi Frederick MD at OR [facility] Right: Eye KIMMIE : SURGICAL 2018 [id number] 0 / [id number] / Hemostatic Clip Res 235cm - [id number] Implanted:Qty: 1 on 05/09/[address] MD at ENDOSCOPY [facility] N/A: Stomach [employer] : ENDOSCOPY 11/15/2025 [id number] / / documented as of this encounter Advance Directives * Full Code (Latest Code Status on File) Date Activated Date Inactivated Comments 08/09/2016 2:37 PM 08/09/2016 7:17 PM This order r eflects the patients wishes and were consensually agreed upon. Care Teams Business Area Manager Relationship Specialty Start Date End Date Deb Camara MD [address] [place] [address] PCP - General Internal Medicine 10/07/23 documented as of this encounter
--- OUTSIDE RECORDS SUMMARY | 2024-03-26 23:18 | External Medical Summary | Summary of Care ---
Author Name Unknown Organization [facility] Address [address] [place] [address] Phone [phone] Care Team Providers Care Risk Analyst Name Role Phone Deb Camara MD Primary Care Provider [phone] Reason for Visit * Reason Comments Dosage Adjustment Via Phone (anticoag Cl inic) Hypertension Encounter Details Date Type Department Care Team (Late st Contact Info) Description 01/27/2024 1:40 PM EDT Telemedicine Pharmacy, [place] [address] [place] [address] [facility] [address] [place] [address] HTN, goal below 130/80* Allergies Active Allergy [...] FINE MISCIndications:DM type 2, not at goal ([facility]),Type 2 diabetes mellitus with hemoglobin A1c goal of less than 8.0% ([facility]) Use to test blood sugar once daily- dx E11.9 1 Each 5 01/31/2019 Active OneTouch Verio In Vitro Strip (Glucose Blood)Indications:D M type 2, not at goal ([facility]),Type 2 diabetes mellitus with hemoglobin A1c goal of less than 8.0% ([facility]) Use up check sugar daily E11.9 100 Strip 3 05/20/2023 Active Empagliflozin 10 MG Oral Tablet (Jardiance) Take 1 Tablet by mouth in the morning. Obtaining from [facility] PAP. Active traZODone HCl 100 MG Oral Tablet (Desyrel)Indication s:Persistent insomnia Take 1 Tablet by mouth at bedtime. 90 Tablet 3 09/14/2023 Active amLODIPine Besylate 10 MG Oral Tablet (Norvasc)Indication s:HTN, goal below 130/80 Take 1 Tablet by mouth in the morning. 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 Patient Phone Numbers [place] [phone] I tried to call both numbers listed above, but they went right to voicemail. MyG message sent. Will follow up once patient responds with BP readings. Current Hypertension Medications: Amlodipine 10 mg in AM Furosemide 40 mg in AM Metoprolol Succinate ER 25 mg in AM *Jardiance 10 mg once in AM ON HOLD Spironolactone 12.5 mg once daily in AM - since 01/03 SBP DBP Pulse 148 69 71 138 69 71 144 67 67 132 66 66 Average 141 68 #DIV/0! 69 Hi 148 69 0 71 Lo 132 66 0 66 Range 16 3 0 5 ASSESSMENT & PLAN: Patient's blood pressures are elevated above goal. Recommending adjusting his regimen. We are limited in the BB dose, and further BP control is needed, I am recommending decreasing the BB dose due to the lower pulse, and less potency on BP lowering, and restarting the aldactone. MyG message sent to patient. MEDICATION CHANGES: Hypertension Medications: Amlodipine 10 mg in AM Furosemide 40 mg in AM Metoprolol Succinate ER 12.5 mg in AM (decreased dose) Spironolactone 12.5 mg once daily in AM (restarted) HEALTH MAINTENANCE INTERVENTIONS: Labs: Ordered & Scheduled: Up to date -- > note that BMP showed stability after 1 week on spironolactone FOLLOW UP: in 2 week via phone Visit date not found Analilia Ceja [facility] Clinical Pharmacist - [facility] [employer] Medication Therapy Management Clinic 01/27/24 documented in this encounter Plan of Treatment Upcoming Encounters Date Type Department Care Team (Late st Contact Info) Description 04/03/2024 10:00 AM EST Office Visit Cardiology, [facility] [place] [address] [place] [address] Sandra Laura CRNP [address] [place] [address] 05/25/2024 1:00 PM EST Telemedicine [facility] [place] [address] [facility] [place] [address] Jackson Munoz MD [address] [facility] [place] [address] 07/31/2024 11:40 AM EDT Office Visit NephrologyBari [address] [place] [address] Kerri Garcia MD 200 [facility] [place] [address] Scheduled Procedures Name Priority Associated Diagnoses Date/Ti [...] Additional history exists CKD PHOS USE SMARTSET 48452 10/08/202309/25, 08/17/2021, 03/06/2020, Additional history exists COVID-19 [...] 09/21/2024 09/22/2023, 024 CKD HGB USE SMARTSET 52125 10/24/202410/24, 10/25/2023, 06/20/2023, Additional history exists B-12 [...] this encounter Medical Devices Implanted Type Area Informatics Educator Device Identifier Shelf Expiration Date Model / Serial / Lot Lens 19.0 Cz70bd - [id number] - [id number] Implanted:Qty: 1 on 08/09/2016 by Madi Frederick MD at OR [facility] Right: Eye KIMMIE : SURGICAL 2018 [id number] 0 / [id number] / Hemostatic Clip Res 235cm - [id number] Implanted:Qty: 1 on 05/09/[address] MD at ENDOSCOPY [facility] N/A: Stomach [employer] : ENDOSCOPY 11/15/2025 [id number] / / documented as of this encounter Visit Diagnoses Diagnosis HTN, goal below 130/80- Primary Unspecified essential hypertension documented in this encounter Advance Directives * Full Code (Latest Code Status on File) Date Activated Date Inactivated Comments 08/09/2016 2:37 PM 08/09/2016 7:17 PM This order r eflects the patients wishes and were consensually agreed upon. Care Teams Risk Analyst Relationship Specialty Start Date End Date Deb Camara MD [address] [place] [facility] [place] [address] PCP - General Internal Medicine 10/07/23 documented as of this encounter
--- OUTSIDE RECORDS SUMMARY | 2024-03-26 23:18 | External Medical Summary ---
Author Name Unknown Address Unknown Organization [facility] [facility] [address] [place] [id number] Laboratory Report Ordering Provider Test Date Status ROSA MARIA JENSEN 02/10/2024 14:41:59 Final Observation Date Value Abnormality Reference (Units ) Status WBC, Total 02/10/2024 14:41:59 10.19 4.00-10.8 0 (K/uL) Final RBC 02/10/2024 14:41:59 3.85 4.50-5.25 (M/uL) Final Hemoglobin 02/10/2024 14:41:59 13.3 Below low normal 14 .0-16.8 (g/dL) Final HCT 02/10/2024 14:41:59 39.9 Below low normal 40. 0-48.4 (%) Final MCV 02/10/2024 14:41:59 103.6 82.0-99.5 (fL) Final MCH 02/10/2024 14:41:59 34.5 27.0-34.0 (pg) Final MCHC 02/10/2024 14:41:59 33.3 32.0-36.0 (g/dL) Final RDW 02/10/2024 14:41:59 13.5 11.5-15.5 (%) Final Platelets 02/10/2024 14:41:59 187 140-400 (K /uL) Final MPV 02/10/2024 14:41:59 11.6 6.6-11.1 ( fL) Final Performing Location [facility] [address] [place] [address]
--- OUTSIDE RECORDS SUMMARY | 2024-03-26 23:18 | External Medical Summary | Summary of Care ---
Author Name Unknown Organization [facility] Address [address] [facility] [place] [address] Phone [phone] Care Team Providers Care Senior Underwriter Name Role Phone Deb Camara MD Primary Care Provider [phone] Reason for Visit * Reason Comments Outpatient Testing Encounter Details Date Type Department Care Team (Late st Contact Info) Description 02/10/2024 2:40 PM EST Laboratory Laboratory, [facility] [address] [facility] [place] [phone] [facility] [address] [facility] [place] [address] Chronic heart failure with preserved ejection fraction (HCC); HTN, goal below 130/80; Dyspnea on exertion; Vitamin D deficiency; Fatigue, unspecified type Allergies Active Allergy Reactions Criticality Noted Date Comments Lisinopril 12/05/2023 dizziness Losartan 05/24/2023 Dizziness documented as of this encounter (statuses as of 02/10/2024) Medications Blood Glucose Monitoring Suppl (ONETOUCH VERIO) w/Device KITIndications:DM type 2, not at goal ([facility]),Type 2 diabetes mellitus with hemoglobin A1c goal of less than 8.0% ([facility]) Use to check sugar daily E11.9 1 Kit 9 Active ONETOUCH DELICA LANCYO FINE MISCIndications:D M type 2, not at goal ([facility]),Type 2 diabetes mellitus with hemoglobin A1c goal of less than 8.0% ([facility]) Use to test blood sugar once daily- dx E11.9 1 Each 5 9 Active OneTouch Verio In Vitro Strip (Glucose Blood)Indications :DM type 2, not at goal ([facility]),Type 2 diabetes mellitus with hemoglobin A1c goal of less than 8.0% ([facility]) Use up check sugar daily E11.9 100 Strip 3 4 Active Empagliflozin 10 MG Oral Tablet (Jardiance) Take 1 Tablet by mouth in the morning. Obtaining from [facility] PAP. Active traZODone HCl 100 MG Oral [...] as of this encounter (statuses as of 02/10/2024) Active Problems Problem Noted Date Diagnosed Date [...] as of this encounter (statuses as of 02/10/2024) Resolved Problems Problem Noted Date Diagnosed Date [...] as of this encounter (statuses as of 02/10/2024) Immunizations Name Administration Dates Next Due COVID-19 [...] Info) Description 02/14/2024 1:30 PM [place] [address] [place] [address] [facility] [address] [place] [address] 05/25/2024 1:00 PM EST Telemedicine [facility] [employer] [address] [facility] [place] [address] Jackson Munoz MD [address] [facility] [place] [address] 07/31/2024 11:40 AM EDT Office Visit Nephrology, [facility] [address] [place] [address] Kerri Garcia MD [address] [facility] [place] [address] 08/13/2024 9:30 AM EDT Cardiac Studies Cardiac Studies, [facility] [address] [facility] [place] [address] 08/21/2024 11:00 AM EDT Office Visit Cardiology, [facility] [address] [facility] [place] [address] Sandra Laura CRNP [address] [facility] [place] [address] Pending Results Name Type Priority Associated Diagnoses Date /Time 25-HYDROXY VITAMIN D Lab Routine Vitamin D deficiency Fatigue, unspecified type 02/10/2024 2:41 PM EST TSH Lab Routine Chronic heart failure with preserved ejection fraction (HCC) Fatigue, unspecified type Dyspnea on exertion 02/10/2024 2:41 PM EST Scheduled Procedures Name Priority Associated Diagnoses [...] Additional history exists CKD PHOS USE SMARTSET 09863 10/08/202309/25, 08/17/2021, 03/06/2020, Additional history exists COVID-19 [...] 09/21/2024 09/22/2023, 024 CKD HGB USE SMARTSET 43774 10/24/202402/09, 10/25/2023, 10/25/2023, Additional history exists B-12 01/02/2025 01/03/2024, 12/26, [...] this encounter Medical Devices Implanted Type Area Director Of Medical Services Device Identifier Shelf Expiration Date Model / Serial / Lot Lens 19.0 [id number] - [id number] - [id number] Implanted:Qty: 1 on 08/09/2016 by Madi Frederick MD at OR [facility] Right: Eye KIMMIE : SURGICAL 2018 [id number] / [id number] / Hemostatic Clip Res 235cm - [id number] Implanted:Qty: 1 on 05/09/[address] Davis MD at [facility]OSCOPY [facility] N/A: Stomach [employer] : ENDOSCOPY 11/15/2025 [id number] / / documented as of this encounter Procedures Procedure Name Priority Date/Time Associated Diagnosis Comments CBC Routine 02/10/2024 2:41 PM EST Chronic heart failure with preserved ejection fraction (HCC) HTN, goal below 130/80 Dyspnea on exertion documented in this encounter Results * (ABNORMAL) CBC (02/10/2024 2:41 PM EST) WBC 10.19 4.00 - 10.80 K/uL 02/10/2024 2:53 PM EST [facility]10 RBC 3.85 4.50 - 5.25 M/uL 02/10/2024 2:53 PM EST [facility] 57-10 HGB 13.3(L) 14.0 - 16.8 g/dL 02/10/2024 2:53 PM EST [facility] 57-10 HCT 39.9(L) 40.0 - 48.4 % 02/10/2024 2:53 PM EST [facility] 57-10 MCV 103.6 82.0 - 99.5 fL 02/10/2024 2:53 PM EST [facility]10 MCH 34.5 27.0 - 34.0 pg 02/10/2024 2:53 PM EST [facility]-10 MCHC 33.3 32.0 - 36.0 g/dL 02/10/2024 2:53 PM EST [facility]-10 RDW 13.5 11.5 - 15.5 % 02/10/2024 2:53 PM EST [facility]10 PLT 187 140 - 400 K/uL 02/10/2024 2:53 PM EST [facility]-10 MPV 11.6 6.6 - 11.1 fL 02/10/2024 2:53 PM EST [facility] 57-10 Blood Venous blood specimen / Unknown Venipuncture / Unknown 02/10/2024 2:41 PM EST 02/10/2024 2:42 PM EST Sandra TEJADA LAB BLOOD ORDERABLES Fi nal Result [facility] 57-10 [address] [place] [address] documented in this encounter Visit Diagnoses Diagnosis Chronic heart failure with preserved ejection fraction (HCC) HTN, goal below 130/80 Unspecified essential hypertension Dyspnea on exertion Other dyspnea and respiratory abnormality Vitamin D deficiency Unspecified vitamin D deficiency Fatigue, unspecified type documented in this encounter Advance Directives * Full Code (Latest Code Status on File) Date Activated Date Inactivated Comments 08/09/2016 2:37 PM 08/09/2016 7:17 PM This order r eflects the patients wishes and were consensually agreed upon. Care Teams Senior Underwriter Relationship Specialty Start Date End Date Deb Camara MD [address] [place] [address] PCP - General Internal Medicine 10/07/23 documented as of this encounter
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
--- OUTSIDE RECORDS SUMMARY | 2024-03-26 23:18 | External Medical Summary | Summary of Care ---
Author Name Unknown Organization [facility] Address [address] [place] [address] Phone [phone] Care Team Providers Care Joint Finisher Name Role Phone Deb Camara MD Primary Care Provider Reason for Visit * Reason Onset Date Comments Patient Assistance Program 02/13/2024 Encounter Details Date Type Department Care Team (Late st Contact Info) Description 02/13/2024 Telephone Pharmacy, [place] [address] [place] [phone] Analilia Ceja, [facility] [address] [place] [address] Patient Assistance Program Allergies Active Allergy Reactions Criticality Noted Date Comments Lisinopril 12/05/2023 dizziness Losartan 05/24/2023 Dizziness documented as of this encounter (statuses as of 02/13/2024) Medications Blood Glucose Monitoring Suppl (ONETOUCH VERIO) w/Device KITIndications:DM type 2, not at goal ([facility]),Type 2 diabetes mellitus with hemoglobin A1c goal [...] EST Patient is currently getting Jardiance through [facility], but with their eligibility requirements changing, [...] Description 02/14/2024 1:30 PM EST [facility]icine Pharmacy, [place] [address] [facility] [address] [place] [address] [place] [facility] [place] [address] 05/25/2024 1:00 PM EST Telemedicine [facility] [address] [facility] [place] [address] Jackson Munoz MD [address] [facility] [place] [address] 07/31/2024 11:40 AM EDT Office Visit Nephrology, [facility] [address] [facility] [place] [address] Kerri Garcia MD [address] [place] [address] 08/13/2024 9:30 AM EDT Cardiac Studies Cardiac Studies, [facility] [place] [address] 08/21/2024 11:00 AM EDT Office Visit Cardiology, [facility] [address] Sandra Laura CR[facility] [address] [facility] [address] Scheduled Procedures Name Priority Associated Diagnoses Date/Ti [...] Additional history exists CKD PHOS USE SMARTSET 21190 10/08/202309/25, 08/17/2021, 03/06/2020, Additional history exists COVID-19 [...] Additional history exists CKD HGB USE SMARTSET 10281 02/09/202502/09, 10/25/2023, 10/25/2023, Additional history exists DTap/Tdap [...] this encounter Medical Devices Implanted Type Area Glass Engraver Device Identifier Shelf Expiration Date Model / Serial / Lot Lens 19.0 Cz70bd - [id number] - [id number] Implanted:Qty: 1 on 08/09/2016 by Madi Frederick MD at [facility] Right: Eye K[employer]MI[employer] : SURGICAL 2018 [id number] 0 / [id number] / Hemostatic Clip Res 235cm - [id number] Implanted:Qty: 1 on 05/09/[address] MD at ENDOSCOPY [facility] N/A: Stomach [employer] : ENDOSCOPY 11/15/2025 [id number] / / documented as of this encounter Advance Directives * Full Code (Latest Code Status on File) Date Activated Date Inactivated Comments 08/09/2016 2:37 PM 08/09/2016 7:17 PM This order r eflects the patients wishes and were consensually agreed upon. Care Teams Joint Finisher Relationship Specialty Start Date End Date Deb Camara MD [address] [place], [place] [id number] PCP - General Internal Medicine 10/07/23 documented as of this encounter
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
--- OUTSIDE RECORDS SUMMARY | 2024-03-26 23:18 | External Medical Summary | Summary of Care ---
Author Name Unknown Organization [facility] Address [address] [place] [address] Phone [phone] Care Team Providers Care Water Softener Service Supervisor Name Role Phone Deb Camara MD Primary Care Provider [phone] Reason for Visit * Reason Onset Date Comments Patient Assistance Program 02/13/2024 Encounter Details Date Type Department Care Team (Late st Contact Info) Description 02/13/2024 Telephone Pharmacy, [place] [facility] [address] [place] [id number] Analilia Ceja, [facility] [address] [place] [address] Patient Assistance Program Allergies Active Allergy Reactions Criticality Noted Date Comments Lisinopril 12/05/2023 dizziness Losartan 05/24/2023 Dizziness documented as of this encounter (statuses as of 02/13/2024) Medications Blood Glucose Monitoring Suppl (ONETOUCH VERIO) w/Device KITIndications:DM type 2, not at goal ([facility]),Type 2 diabetes mellitus with hemoglobin A1c goal of less than 8.0% ([facility]) Use to check sugar daily E11.9 [...] Telephone Encounter - Analilia Ceja [facility] - 02/13/2024 8:05 AM EST Patient is currently getting Jardiance through [facility], but with their eligibility requirements changing, are [...] Description 02/14/2024 1:30 PM EST Telemedicine Pharmacy, [address] [address] [facility] [address] [place] [address] 05/25/2024 1:00 PM EST Telemedicine Radiation [facility] [place] [address] [facility] [place] [address] Jackson Munoz MD [address] [facility] [place] [address] 07/31/2024 11:40 AM EDT Office Visit Nephrology, [facility] [address] [place] [address] Kerri Garcia MD [address] [place] [address] 08/13/2024 9:30 AM EDT Cardiac Studies Card[facility] [address] 08/21/2024 11:00 AM EDT Office Visit Cardiology, [facility] [address] [facility] [place] [address] Sandra Laura CRNP 132 [facility] [place] [address] Scheduled Procedures Name Priority Associated Diagnoses Date/Ti [...] Additional history exists CKD PHOS USE SMARTSET 16985 10/08/202309/25, 08/17/2021, 03/06/2020, Additional history exists COVID-19 [...] Additional history exists CKD HGB USE SMARTSET 58156 02/09/202502/09, 10/25/2023, 10/25/2023, Additional history exists DTap/Tdap [...] encounter Medical Devices Implanted Type Area Digital Strategy Director Device Identifier Shelf Expiration Date Model / Serial / Lot Lens 19.0 [id number] - [id number] - [id number] Implanted:Qty: 1 on 08/09/2016 by Madi Frederick MD at [facility] Right: Eye KIMMIE : SURGICAL 2018 [id number] / [id number] / Hemostatic Clip Res 235cm - [id number] Implanted:Qty: 1 on 05/09/[address] MD at ENDOSCOPY [facility] N/A: Stomach [employer] : ENDOSCOPY 11/15/2025 [id number] / / documented as of this encounter Advance Directives * Full Code (Latest Code Status on File) Date Activated Date Inactivated Comments 08/09/2016 2:37 PM 08/09/2016 7:17 PM This order r eflects the patients wishes and were consensually agreed upon. Care Teams Water Softener Service Supervisor Relationship Specialty Start Date End Date Deb Camara MD [address] [place] [address] PCP - General Internal Medicine 10/07/23 documented as of this encounter
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
--- OUTSIDE RECORDS SUMMARY | 2024-03-26 23:19 | External Medical Summary | Summary of Care ---
Author Name Unknown Organization [facility] Address [address] [place] [address] Phone [phone] Care Team Providers Care Chief Nursing Officer Name Role Phone Deb Camara MD Primary Care Provider [phone] Reason for Visit * Reason Comments Dosage Adjustment Via Phone (anticoag Cl inic) Hypertension Encounter Details Date Type Department Care Team (Late st Contact Info) Description 01/03/2024 11:00 AM EDT Telemedicine Pharmacy, [place] [address] [place] [address] [facility] [address] [place] [address] HTN, goal below 130/80* Allergies Active Allergy Reactions Criticality Noted Date Comments Lisinopril 12/05/2023 dizziness Losartan 05/24/2023 Dizziness documented as of this encounter (statuses as of 01/03/2024) Medications Medication Sig Dispensed Refills Start Date [...] by mouth in the morning. Obtaining from [facility] PAP. Active traZODone HCl 100 MG Oral [...] Tablet before bedtime. 120 Tablet 12/19/2023 Active Spironolactone 25 MG Oral Tablet (Aldactone)Indicatio ns:HTN, goal below 130/80 Take 0.5 Tablets by mouth in the morning. Please obtain labs 3-5 days after starting this medication.. 45 Tablet 12/27/2023 Active documented as of this encounter (statuses as of 01/03/2024) Active Problems Problem Noted Date Diagnosed Date [...] as of this encounter (statuses as of 01/03/2024) Resolved Problems Problem Noted Date Diagnosed Date [...] as of this encounter (statuses as of 01/03/2024) Immunizations Name Administration Dates Next Due COVID-19 [...] this encounter Progress Notes * Analilia Ceja, [facility] - 01/03/2024 11:00 AM EDT Images from the original note were not included. [facility] - Hypertension Management This patient was contacted as part of the [facility] Nephrology HTN remote monitoring airplane pilot helper. Blood Pressure Goal: 130/80 mmHg Patient Phone Numbers 11:02 AM Called and LMOM. Will try again in 5 minutes. 11:07 AM Called and LMOM. MyG message sent. 11:32 AM Called and spoke to . Current Hypertension Medications: Amlodipine 10 mg in AM Furosemide 40 mg in AM Metoprolol Succinate ER 25 mg in AM *Jardiance 10 mg once in AM START Spironolactone 12.5 mg once daily in AM - started 12/27 Experiencing symptoms related to elevated BP: No BP Readings from Last 3 Encounters: 12/19/23 132/50 12/05/23 125/54 11/24/23 133/55 Pulse Readings from Last 3 Encounters: 12/19/23 65 12/05/23 56 11/24/23 60 Recent Labs Units 10/25/23 1025 09/20/23 1514 09/13/23 1310 SODIUM - [facility] mmol/L 138 139 136 POTASSIUM - [facility] mmol/L 4.1 4.4 4.5 CHLORIDE - [facility] mmol/L 101 103 100 CO2 - [facility] mmol/L 27 25 26 CREATININE - [facility] mg/dL 1.5* 1.8* 1.8* BUN - [facility] mg/dL 26* 28* 29* ASSESSMENT & PLAN: BP still elevated- pt sent MyG with BP readings Patient reminded to go to the lab and get BMP checked, then plan will be to ensure that dose increase of spironolactone is appropriate. Will follow up tomorrow with MyG message as requested by patient/. Analilia Ceja [facility] Clinical Pharmacist - [facility] 01/03/2024, 11:02 AM documented in this encounter Plan of Treatment Upcoming Encounters Date Type Department Care Team (Late st Contact Info) Description 01/09/2024 3:00 PM EDT Telemedicine Pharmacy, [address] [address] [facility] [address] [place] [address] 04/03/2024 10:00 AM EST Office Visit Cardiology, [facility] [address] [place] [address] Sandra Laura CRNP [address] [place] [address] 05/25/2024 1:00 PM EST Telemedicine Rad[facility] [place] [address] [facility] [place] [address] Jackson Munoz MD [address] [facility] [place] [address] 07/31/2024 11:40 AM EDT Office Visit Nephrology, [facility] [address] [place], [place] [address] Kerri Garcia MD [address] [place] [address] Scheduled Procedures Name Priority Associated Diagnoses Date/Ti [...] Additional history exists CKD PHOS USE SMARTSET 86980 10/08/202309/25, 08/17/2021, 03/06/2020, Additional history exists COVID-19 Vaccine ( season) 2023 12/30/2022, 10/08/2021, 02/02/2021, Additional history exists B-12 01/05/2024 01/04/2023, 01/27, 02/14/2020, Additional history exists HbA1c 03/14/2024 09/13/2023, 05/27, 01/04/2023, Additional history exists GFR 04/26/2024 10/25/2023, 08/27, 09/13/2023, Additional history exists Colonoscopy 05/09/2024 05/09/2023, 04/28, 01/30/2019, Additional history exists Albumin/Creatinine Ratio 06/19/2024 024, 10/07/2022, 08/17/2021, Additional history exists Diabetic Foot Exam 09/12/2024 09/13/2023, 1 04/15/2019, 05/18/2018, Additional history exists Depression Monitoring 09/21/2024 09/22/2023, 024 CKD HGB USE SMARTSET 66341 10/24/202410/24, 10/25/2023, 06/20/2023, Additional history exists DTap/Tdap Vaccines (3 - [...] this encounter Medical Devices Implanted Type Area Commercial Floor Covering Installer Device Identifier Shelf Expiration Date Model / Serial / Lot Lens 19.0 Cz70bd - [id number] - [id number] Implanted:Qty: 1 on 08/09/2016 by Madi Frederick MD at [facility] Right: Eye K[employer] : SURGICAL 2018 [id number] / [id number] / Hemostatic Clip Res 235cm - [id number] Implanted:Qty: 1 on 05/09/[address] MD at ENDOSCOPY [facility] N/A: Stomach [employer] : ENDOSCOPY 11/15/2025 [id number] / / documented as of this encounter Visit Diagnoses Diagnosis HTN, goal below 130/80- Primary Unspecified essential hypertension documented in this encounter Advance Directives * Full Code (Latest Code Status on File) Date Activated Date Inactivated Comments 08/09/2016 2:37 PM 08/09/2016 7:17 PM This order r eflects the patients wishes and were consensually agreed upon. Care Teams Chief Nursing Officer Relationship Specialty Start Date End Date Deb Camara MD [address] [place] [address] PCP - General Internal Medicine 10/07/23 documented as of this encounter
--- OUTSIDE RECORDS SUMMARY | 2024-03-26 23:19 | External Medical Summary | Summary of Care ---
Author Name Unknown Organization [facility] Address [address] [place] [address] Phone [phone] Care Team Providers Care Autopsy Pathologist Name Role Phone Deb Camara MD Primary Care Provider [phone] Reason for Visit * Reason Comments Dosage Adjustment In Person (Anticoag Cl inic) Diabetes Follow-Up Encounter Details Date Type Department Care Team (Late st Contact Info) Description 10/07/2023 1:00 PM EDT Office Visit Pharmacy, [place] [address] [place] [address] [facility] [address] [place] [address] Type 2 diabetes mellitus with hemoglobin A1c goal of less than 8.0% ([facility])* Allergies Active Allergy Reactions Criticality Noted Date Comments Lisinopril 12/05/2023 dizziness Losartan 05/24/2023 Dizziness documented as of this encounter (statuses as of 01/17/2024) Medications Medication Sig Dispensed Refills Start Date [...] Active OneTouch Verio In Vitro Strip (Glucose Blood)Indications: DM type 2, not at goal (HCC),Type 2 diabetes mellitus with hemoglobin A1c goal of less than 8.0% (HCC) Use up check sugar daily E11.9 100 Strip 3 05/20/2023 Active Empagliflozin 10 MG Oral Tablet (Jardiance) Take 1 Tablet by mouth in the morning. Obtaining from [facility] PAP. Active traZODone HCl 100 MG Oral Tablet (Desyrel)Indicatio ns:Persistent insomnia Take 1 Tablet by mouth at bedtime. 90 Tablet 3 09/14/2023 Active amLODIPine Besylate 10 MG Oral Tablet (Norvasc)Indicatio ns:HTN, goal below 130/80 Take 1 Tablet by mouth in the morning. 90 Tablet 3 10/04/2023 Active Metoprolol Succinate ER 25 MG Oral Tablet Extended Release 24 Hour (toPROL XL)Indications:Chr onic right-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) Take 1 Tablet by mouth in the morning. 90 Tablet 2 03/20/2023 4 Discontinue d(Refill) Gabapentin 300 MG Oral Capsule (Neurontin) Take 1 Capsule by mouth at bedtime. 30 Capsule 5 05/24/2023 4 Discontinue d(Medicatio n List Clean Up) Amoxicillin 875 MG Oral TabletIndications: Acute maxillary sinusitis, recurrence not specified Take 1 Tablet by mouth in the morning and 1 Tablet before bedtime. Do all this for 10 days. 20 Tablet 07/06/2023 4 Discontinue d(Medicatio n List Clean Up) oxyCODONE HCl 10 MG Oral Tablet (Roxicodone)Indica tions:Other closed fracture of thoracic vertebra, unspecified thoracic vertebral level, sequela Take 1 Tablet by mouth in the morning and 1 Tablet at noon and 1 Tablet in the evening and 1 Tablet before bedtime. 120 Tablet 09/14/2023 4 Discontinue d(Refill) Furosemide 40 MG Oral Tablet (Lasix)Indications :Chronic heart failure with preserved ejection fraction (HCC) 1 tab every day 09/20/2023 4 Discontinue d(Medicatio n List Clean Up) Citalopram Hydrobromide 20 MG Oral Tablet (CeleXA) Take 1 Tablet by mouth in the morning. 30 Tablet 5 09/22/2023 4 Discontinue d(Refill) Furosemide 40 MG Oral Tablet (Lasix)Indications :Chronic right-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) TAKE 1 tablet daily 30 Tablet 5 10/06/2023 4 Discontinue d(Refill) documented as of this encounter (statuses as of 01/17/2024) Active Problems Problem Noted Date Diagnosed Date [...] as of this encounter (statuses as of 01/17/2024) Resolved Problems Problem Noted Date Diagnosed Date [...] as of this encounter (statuses as of 01/17/2024) Immunizations Name Administration Dates Next Due COVID-19 mRNA, LNP-s, No Pre serve, 2-Dose Series ([employer] 02/02/2021,06/14/2020,05/24/2020 COVID-19, LNP-s, No Preserve , Ellis-sucrose, Ages 12+ ([employer] 10/08/2021 Pneumococcal Conjugate Vacc, 13 Valent (Prevnar) [...] this encounter Progress Notes * Analilia Ceja, [facility] - 10/07/2023 12:57 PM EDT Medication Therapy Disease Management Clinic - Diabetes Management Progress Note Delvis Munoz, identified by name and date of , is a 73 year old male being seen for diabetes management/education. Patient presents for return diabetic visit. DIABETES: Current diabetic medications: Jardiance 10 mg once daily in the AM Medication Injection Site: N/A Lifestyle: Diet: unchanged Glucose Review/SMBG: Readings per patient memory/recall: Patient is currently testing 1-2 times a day Hypoglycemia: Does your blood sugar go below 70 mg/dL? No Hyperglycemia symptoms present: none Recent Labs Units 09/13/23 1310 06/20/23 1002 01/04/23 1511 HEMOGLOBIN A1C - [facility] % 5.8* 6.2* 5.8* Recent Labs Units 09/20/23 1514 09/13/23 1310 08/12/23 1431 ESTIMATED GLOMERULAR FILTRATION RATE - [facility] mL/min 39* 40* 31* CREATININE - [facility] mg/dL 1.8* 1.8* 2.2* HYPERTENSION: Patient on ACEi/ARB: yes BP Readings from Last 3 Encounters: 09/22/23 114/68 09/13/23 142/60 07/08/23 152/52 Blood pressure at goal: yes HYPERLIPIDEMIA: Patient is taking moderate or high intensity statin: yes HEALTH MAINTENANCE REVIEW: Health Maintenance Due Topic Date Due DXA Scan Never done Hepatitis B Vaccine (1 of 3 - Risk 3-dose series) Never done Diabetic Eye Exam 10/20/2021 COVID-19 Vaccine ( season) 2023 CKD PHOS USE SMARTSET 45241 10/08/2023 ASSESSMENT & PLAN: ICD-10-CM 1. Type 2 diabetes mellitus with hemoglobin A1c goal of less than 8.0% (HCC) E11.9 Considerations: - not eligible for PACE/PACENET - applying for Jardiance PAP [[facility]iga PAP as plan B] - renal function - CHF BG Readings - Blood sugars controlled. A1c shows good control. Encouraged patient to check 3 times a week. Otherwise continue jardiance, will re-apply to [employer] PAP in January- remind me set. Discharge at this time due to great control. Welcome future referrals as appropriate. Thank you forallowing us to participate in the care of this patient. This patient has met their goal HgA1C and has been graduated from the [facility] Diabetes Management Program effective today Yes. Analilia Ceja RP Clinical Pharmacist - Logistics Vice President Medication Therapy Management Clinic 10/07/2023, 12:57 PM documented in this encounter Plan of Treatment Upcoming Encounters Date Type Department Care Team (Late st Contact Info) Description 01/27/2024 1:40 PM EDT Telemedicine Pharmacy, Sarah [address] [place] [facility] [place] [address] Sarah, [facility] [address] [place] [address] 04/03/2024 10:00 AM EST Office Visit Cardiology, [facility] [address] [place] [address] Sandra Laura CRNP [address] [place] [address] 05/25/2024 1:00 PM EST Telemedicine [facility] [address] [facility] [place] [address] Jackson Munoz MD [address] [facility] [place] [address] 07/31/2024 11:40 AM EDT Office Visit Nephrology, [facility] [address] [facility] [place] [address] Kerri Garcia MD [address] [place] [address] Scheduled Procedures Name Priority Associated Diagnoses Date/Ti [...] Additional history exists CKD PHOS USE SMARTSET 71384 10/08/202309/25, 08/17/2021, 03/06/2020, Additional history exists COVID-19 [...] 09/21/2024 09/22/2023, 024 CKD HGB USE SMARTSET 06879 10/24/202410/24, 10/25/2023, 06/20/2023, Additional history exists B-12 [...] this encounter Medical Devices Implanted Type Area Utility Worker Roller Shop Device Identifier Shelf Expiration Date Model / Serial / Lot Lens 19.0 [id number] - [id number] - [id number] Implanted:Qty: 1 on 08/09/2016 by Madi Frederick MD at OR [facility] Right: Eye KIMMIE : SURGICAL 2018 [id number] / [id number] / Hemostatic Clip Res 235cm - [id number] Implanted:Qty: 1 on 05/09/[address] Davis MD at ENDOSCOPY [facility] N/A: Stomach [employer] : ENDOSCOPY 11/15/2025 [id number] / / documented as of this encounter Visit Diagnoses Diagnosis Type 2 diabetes mellitus with hemoglobin A1c goal of less than 8.0% (HCC)- Primary documented in this encounter Advance Directives * Full Code (Latest Code Status on File) Date Activated Date Inactivated Comments 08/09/2016 2:37 PM 08/09/2016 7:17 PM This order r eflects the patients wishes and were consensually agreed upon. Care Teams Autopsy Pathologist Relationship Specialty Start Date End Date Deb Camara MD [address], [place] [id number] PCP - General Internal Medicine 10/07/23 documented as of this encounter
--- OUTSIDE RECORDS SUMMARY | 2024-03-26 23:19 | External Medical Summary | Summary of Care ---
Author Name Unknown Organization [facility] Address [address] [facility] [address] Phone [phone] Care Team Providers Care Director Of Retail Name Role Phone Deb Camara MD Primary Care Provider [phone] Reason for Visit * Reason Onset Date Comments Medication Refill 12/26/2023 Encounter Details Date Type Department Care Team (Late st Contact Info) Description 12/26/2023 Refill Cardiology, [facility] [address] [place] [address] Sandra Laura CRNP [address] [place] [address] HTN, goal below 130/80 Allergies Active Allergy Reactions Criticality Noted Date Comments Lisinopril 12/05/2023 dizziness Losartan 05/24/2023 Dizziness documented as of this encounter (statuses as of 12/28/2023) Medications Medication Sig Dispensed Refills Start Date End Date Status Blood Glucose Monitoring Suppl (ONETOUCH VERIO) w/Device KITIndications:DM type 2, not at goal ([facility] [...] mouth in the morning. Obtaining from [facility] PAP. Active traZODone HCl 100 MG [...] as of this encounter (statuses as of 12/28/2023) Active Problems Problem Noted Date Diagnosed Date [...] as of this encounter (statuses as of 12/28/2023) Resolved Problems Problem Noted Date Diagnosed Date [...] as of this encounter (statuses as of 12/28/2023) Immunizations Name Administration Dates Next Due COVID-19 [...] encounter Miscellaneous Notes * Telephone Encounter - Reynaldo Lomas RPh - 12/28/2023 11:20 AM EDTRefused Prescriptions: Disp Refills amLODIPine Besylate 10 MG Oral Tablet (Nor*90 Tab*3 Sig: Take 1Tablet by mouth in the morning.Refused By: Amanda LOMAS for Refusal: Too soonReason for Refusal Comment: 1 year supply sent 10/04/23 documented in this encounter Plan of Treatment Upcoming Encounters Date Type Department Care Team (Late st Contact Info) Description 01/03/2024 11:00 AM EDT Telemedicine Pharmacy, Brian [address] [place] [address] Brian [facility] [address] [place] [address] 04/03/2024 10:00 AM EST Office Visit Cardiology, [address] [place] [address] Sandra Laura CRNP [address] [place] [address] 05/25/2024 1:00 PM [facility] Tevin [address] [facility] [place] [address] Jackson Munoz MD [address] [facility] [place] [address] 07/31/2024 11:40 AM EDT Office Visit Nephrology, [place] [place] [address] [place] [address] Kerri Garcia MD [address] [place] [address] Scheduled Procedures Name Priority Associated Diagnoses Date/Ti [...] Additional history exists CKD PHOS USE SMARTSET 42230 10/08/202309/25, 08/17/2021, 03/06/2020, Additional history exists COVID-19 [...] 09/21/2024 09/22/2023, 024 CKD HGB USE SMARTSET 95037 10/24/202410/24, 10/25/2023, 06/20/2023, Additional history exists DTap/Tdap [...] this encounter Medical Devices Implanted Type Area Plycor Operator Device Identifier Shelf Expiration Date Model / Serial / Lot Lens 19.0 Cz70bd - [id number] - [id number] Implanted:Qty: 1 on 08/09/2016 by Madi Frederick MD at OR [facility] Right: Eye KIMMIE : SURGICAL 2018 [id number] / [id number] / Hemostatic Clip Res 235cm - [id number] Implanted:Qty: 1 on 05/09/[address] Davis MD at ENDOSCOPY [facility] N/A: Stomach [employer] : ENDOSCOPY 11/15/2025 [id number] / / documented as of this encounter Visit Diagnoses Diagnosis HTN, goal below 130/80 Unspecified essential hypertension documented in this encounter Advance Directives * Full Code (Latest Code Status on File) Date Activated Date Inactivated Comments 08/09/2016 2:37 PM 08/09/2016 7:17 PM This order r eflects the patients wishes and were consensually agreed upon. Care Teams Director Of Retail Relationship Specialty Start Date End Date Deb Camara MD [address] [facility] [place] [address] PCP - General Internal Medicine 10/07/23 documented as of this encounter
--- OUTSIDE RECORDS SUMMARY | 2024-03-26 23:19 | External Medical Summary ---
Author Name Unknown Address Unknown Organization K01:[facility] [place] [address] [place] [address] Laboratory Report Ordering Provider Test Date Status CHELSEA BENNETT 01/03/2024 14:59:27 Final Observation Date Value Abnormality Reference (Units ) Status BUN 01/03/2024 14:59:27 24 Above high normal 6-20 (mg/dL) Final Creatinine 01/03/2024 14:59:27 1.6 Above high normal 0.6-1.2 (mg/dL) Final Glomerular filtration rate/1.73 sq M.predicted [Volume Rate/Area] in Serum, Plasma or Blood by Creatinine-based formula (CKD-EPI) 01/03/2024 14:59:27 45 Below low normal >=60 (mL/min) Final eGFR is calculated based on the CKD-EPI 2020 equation. Sodium 01/03/2024 14:59:27 141 135-146 (m mol/L) Final Potassium 01/03/2024 14:59:27 4.3 3.5-5.1 (m mol/L) Final Cl 01/03/2024 14:59:27 102 98-107 (mm ol/L) Final CO2 01/03/2024 14:59:27 28 22-32 (mmo l/L) Final Anion gap 01/03/2024 14:59:27 11 7-15 (mmol /L) Final Glucose 01/03/2024 14:59:27 133 Above high normal 70 -120 (mg/dL) Final Albumin 01/03/2024 14:59:27 3.3 Below low normal 3.8 -5.0 (g/dL) Final AST (Aspartate aminotransferase) 01/03/2024 14:59:27 62 Above high normal 10-50 (U/L) Final Alk Phos 01/03/2024 14:59:27 302 Above high normal 35 -130 (U/L) Final Bilirubin, Total 01/03/2024 14:59:27 1.0 <=1 .2 (mg/dL) Final Calcium 01/03/2024 14:59:27 8.6 8.4-10.2 ( mg/dL) Final Protein 01/03/2024 14:59:27 7.1 6.0-8.3 (g /dL) Final ALT (Alanine aminotransferase) 01/03/2024 14:59:27 44 10-50 (U/L) Bladimir wilson Performing Location [facility] [address] [facility] [address]
--- OUTSIDE RECORDS SUMMARY | 2024-03-26 23:19 | External Medical Summary | Summary of Care ---
Author Name Unknown Organization [facility] Address [address] [place] [address] Phone [phone] Care Team Providers Care Wine Fermenter Name Role Phone Deb Camara MD Primary Care Provider [phone] Reason for Visit * Reason Comments Blood Pressure Check Patient is here tod for a BP check per Analilia. Patient states when he sat for a while and stood up he was having dizzy spells. Encounter Details Date Type Department Care Team (Late st Contact Info) Description 01/03/2024 3:00 PM EDT Nurse Only Ancillary Department, [place] [address] [place] [address] [place], Nurse [address] [place] [address] Blood Pressure Check (Patient is here toda... Allergies Active Allergy Reactions Criticality Noted Date Comments Lisinopril 12/05/2023 dizziness Losartan 05/24/2023 Dizziness documented as of this encounter (statuses as of 01/03/2024) Medications Medication Sig Dispensed Refills Start Date End Date Status Blood Glucose Monitoring Suppl (KnowlentTOUCH VERIO) w/Device KITIndications:DM type 2, not at goal ([facility]),Type 2 diabetes mellitus with hemoglobin A1c goal of less than 8.0% ([facility]) Use to check sugar daily E11.9 1 Kit 01/31/2019 Active ONETOUCH ELIZABETH ROGERS FINE MISCIndications:DM [...] goal of less than 8.0% ([facility]) Use up check sugar daily E11.9 100 Strip 3 05/20/2023 Active Empagliflozin 10 MG Oral Tablet (Jardiance) Take 1 Tablet by mouth in the morning. Obtaining from [facility] PAP. Active traZODone HCl 100 MG Oral [...] Sign Reading Time Taken Comments Blood Pressure 102/56 01/03/2024 3:14 PM EDT Pulse - - Temperature - - Respiratory Rate - - Oxygen Saturation - - Inhaled Oxygen Concentration - - Weight - - Height - - Body Mass Index - - documented in this encounter Nursing Notes * Claire Isabel LPN - 01/03/2024 3:13 PM EDT The patient has been properly identified by confirmation of name and date of . Chief Complaint Patient presents with Blood Pressure Check Patient is here today for a BP check per Analilia. Patient states when he sat for a while and stood up he was having dizzy spells. documented in this encounter Plan of Treatment Upcoming Encounters Date Type Department Care Team ([facility] st Contact Info) Description 01/09/2024 3:00 PM EDT Telemedicine Pharmacy, [place] [address] [place] [address] [place], [facility] [address] [place] [address] 04/03/2024 10:00 AM EST Office Visit Cardiology, [facility] [address] [facility] [place] [address] Sandra Laura CRNP [address] [place] [address] 05/25/2024 1:00 PM EST Telemedicine [facility] [place] [address] [facility] [place] [address] Jackson Munoz MD [address] [facility] [place] [address] 07/31/2024 11:40 AM EDT Office Visit Nephrology, [facility] [address] [facility] [place] [address] Kerri Garcia MD [address] [place] [address] Scheduled Procedures Name Priority Associated Diagnoses Date/Ti [...] Additional history exists CKD PHOS USE SMARTSET 61791 10/08/202309/25, 08/17/2021, 03/06/2020, Additional history exists COVID-19 [...] 09/21/2024 09/22/2023, 024 CKD HGB USE SMARTSET 61320 10/24/202410/24, 10/25/2023, 06/20/2023, Additional history exists DTap/Tdap [...] this encounter Medical Devices Implanted Type Area Stonemason Device Identifier Shelf Expiration Date Model / Serial / Lot Lens 19.0 Cz70bd - [id number] - [id number] Implanted:Qty: 1 on 08/09/2016 by Madi Frederick MD at OR [facility] Right: Eye KIMMIE : SURGICAL 2018 [id number] 0 / [id number] / Hemostatic Clip Res 235cm - [id number] Implanted:Qty: 1 on 05/09/[address] MD at ENDOSCOPY [facility] N/A: Stomach [employer] : ENDOSCOPY 11/15/2025 [id number] / / documented as of this encounter Advance Directives * Full Code (Latest Code Status on File) Date Activated Date Inactivated Comments 08/09/2016 2:37 PM 08/09/2016 7:17 PM This order r eflects the patients wishes and were consensually agreed upon. Care Teams Wine Fermenter Relationship Specialty Start Date End Date Dbe Camara MD [address] [place] [address] PCP - General Internal Medicine 10/07/23 documented as of this encounter
--- OUTSIDE RECORDS SUMMARY | 2024-03-26 23:19 | External Medical Summary ---
Author Name Unknown Address Unknown Organization K01:[facility] - [address] [place] [address] Laboratory Report Ordering Provider Test Date Status CHELSEA BENNETT 01/03/2024 14:59:27 Final Observation Date Value Abnormality Reference (Units ) Status Vitamin B12 01/03/2024 14:59:27 1442 Above high normal 232-1245 (pg/mL) Final Performing Location LAB[facility]ATORY [facility] - [address] [place] [address]
--- OUTSIDE RECORDS SUMMARY | 2024-03-26 23:19 | External Medical Summary | Summary of Care ---
Author Name Unknown Organization [facility] Address [address] [place] [address] Phone [phone] Care Team Providers Care Heating Equipment Installer Name Role Phone Deb Camara MD Primary Care Provider [phone] Reason for Visit * Reason Onset Date Comments Medication Discussion 01/03/2024 Blood pres sure Encounter Details Date Type Department Care Team (Late st Contact Info) Description 01/03/2024 Telephone Pharmacy, [place] [address] [place] [phone] Analilia Ceja, [facility] [address] [place] [address] Medication Discussion (Blood pressure) Allergies Active Allergy Reactions Criticality Noted Date Comments Lisinopril 12/05/2023 dizziness Losartan 05/24/2023 Dizziness documented as of this encounter (statuses as of 01/03/2024) Medications Medication Sig Dispensed Refills Start Date End Date Status Blood Glucose Monitoring Suppl (ONETOUCH VERIO) w/Device KITIndications:DM type 2, not at goal ([facility]),Type 2 diabetes mellitus with hemoglobin A1c goal of less than 8.0% ([facility]) Use to check sugar daily E11.9 1 Kit 01/31/2019 Active ONETOUCH DELICA LANCETS FINE MISCIndications:DM type 2, not at goal ([facility]),Type 2 diabetes mellitus with hemoglobin A1c goal of less than 8.0% ([facility]) Use to test blood sugar once daily- dx E11.9 1 Each 5 01/31/2019 Active RsusellZacsaúl Gundersonkevin In Vitro Strip (Glucose Blood)Indications:DM type 2, not at goal (HCC),Type 2 diabetes mellitus with hemoglobin A1c goal of less than 8.0% ([facility]) Use up check sugar daily E11.9 [...] Telephone Encounter - Analilia Ceja RPh - 01/03/2024 3:22 PM EDT Pt presented to clinic to get his labs checked after starting spironolactone 6 days ago. Pt reports that he is dizzy, and BP checked and it was 102/56. Pt reports that these dizzy spells happened before he started the spironolactone, but they have been more frequent since he started the medication. Advised pt to HOLD spironolactone for 1 week. BMP is in process, so we will still check that. Pt was advised to check his blood pressure and blood sugar when he has the dizzy spells. He was advised to sit down to avoid losing balance. Pt encouraged to remain well hydrated. Will follow up 01/09/2024 via phone. Analilia Ceja, PharmD, BCACP Clinical Pharmacist Medication Therapy Disease Management 01/03/2024, 3:24 PM documented in this encounter Plan of Treatment Upcoming Encounters Date Type Department Care Team (Late st Contact Info) Description 01/09/2024 3:00 PM EDT Telemedicine Pharmacy, [place] [address] [facility] [place] [address] [place], [facility] [address] [place] [facility] [place] [address] 04/03/2024 10:00 AM EST Office Visit Cardiology, [facility] [address] [facility] [place] [address] Sandra Laura CRNP [address] [facility] [place] [address] 05/25/2024 1:00 PM EST Telemedicine [facility] [place] [address] [facility] [place] [address] Jackson Munoz MD [address] [facility] [place] [address] 07/31/2024 11:40 AM EDT Office Visit Nephrology, [place] [address] [place] [address] Kerri Garcia MD [address] [place] [address] Scheduled Procedures Name Priority Associated Diagnoses Date/Ti [...] Additional history exists CKD PHOS USE SMARTSET 41285 10/08/202309/25, 08/17/2021, 03/06/2020, Additional history exists COVID-19 [...] 09/21/2024 09/22/2023, 024 CKD HGB USE SMARTSET 99602 10/24/202410/24, 10/25/2023, 06/20/2023, Additional history exists DTap/Tdap [...] this encounter Medical Devices Implanted Type Area Ladle Cleaner Device Identifier Shelf Expiration Date Model / Serial / Lot Lens 19.0 Cz70bd - [id number] - [id number] Implanted:Qty: 1 on 08/09/2016 by aMdi Frederick MD at OR [facility] Right: Eye KIMMIE : SURGICAL 2018 [id number] / [id number] / Hemostatic Clip Res 235cm - [id number] Implanted:Qty: 1 on 05/09/[address] MD at ENDOSCOPY [facility] N/A: Stomach [employer] : ENDOSCOPY 11/15/2025 [id number] / / documented as of this encounter Visit Diagnoses Diagnosis HTN, goal below 130/80- Primary Unspecified essential hypertension documented in this encounter Advance Directives * Full Code (Latest Code Status on File) Date Activated Date Inactivated Comments 08/09/2016 2:37 PM 08/09/2016 7:17 PM This order r eflects the patients wishes and were consensually agreed upon. Care Teams Heating Equipment Installer Relationship Specialty Start Date End Date Deb Camara MD [address] [facility] [place] [address] PCP - General Internal Medicine 10/07/23 documented as of this encounter
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
--- OUTSIDE RECORDS SUMMARY | 2024-03-26 23:19 | External Medical Summary | Summary of Care ---
Author Name Unknown Organization [facility] Address [address] [facility] [address] Phone [phone] Care Team Providers Care Gravel Machine Operator Name Role Phone Deb Camara MD Primary Care Provider [phone] Encounter Details Date Type Department Care Team (Late st Contact Info) Description 12/29/2023 Orders Only PATIENT PORTAL DO NOT DELETE THIS DEPT USED BY [place] [id number] Allergies Active Allergy Reactions Criticality Noted Date Comments Lisinopril 12/05/2023 dizziness Losartan 05/24/2023 Dizziness documented as of this encounter (statuses as of 12/29/2023) Medications Medication Sig Dispensed Refills Start Date [...] as of this encounter (statuses as of 12/29/2023) Active Problems Problem Noted Date Diagnosed Date [...] as of this encounter (statuses as of 12/29/2023) Resolved Problems Problem Noted Date Diagnosed Date [...] as of this encounter (statuses as of 12/29/2023) Immunizations Name Administration Dates Next Due COVID-19 [...] Description 01/03/2024 11:00 AM EDT Telemedicine Pharmacy, [place] [address] [place] [address] [facility] [address] [place] [address] 04/03/2024 10:00 AM EST Office Visit Cardiology, [facility] [address] [place] [address] Sandra Laura CRNP [address] [facility] [place] [address] 05/25/2024 1:00 PM EST Telemedicine [facility] [place] [address] [facility] [place] [address] Jackson Munoz MD [address] [facility] [place] [address] 07/31/2024 11:40 AM EDT Office Visit Nephrology, [facility] [address] [place] [address] Kerri Garcia MD [address] [place] [address] Scheduled Procedures Name Priority Associated Diagnoses Date/Ti [...] Additional history exists CKD PHOS USE SMARTSET 49121 10/08/202309/25, 08/17/2021, 03/06/2020, Additional history exists COVID-19 [...] 09/21/2024 09/22/2023, 024 CKD HGB USE SMARTSET 89570 10/24/202410/24, 10/25/2023, 06/20/2023, Additional history exists DTap/Tdap [...] this encounter Medical Devices Implanted Type Area Urology Surgeon Device Identifier Shelf Expiration Date Model / Serial / Lot Lens 19.0 [id number] - [id number] - [id number] Implanted:Qty: 1 on 08/09/2016 by Madi Frederikc MD at [facility] Right: Eye KIM[employer]E : SURGICAL 2018 [id number] / [id number] / Hemostatic Clip Res 235cm - [id number] Implanted:Qty: 1 on 05/09/[address] MD at ENDOSCOPY [facility] N/A: Stomach [employer] : ENDOSCOPY 11/15/2025 [id number] / / documented as of this encounter Advance Directives * Full Code (Latest Code Status on File) Date Activated Date Inactivated Comments 08/09/2016 2:37 PM 08/09/2016 7:17 PM This order r eflects the patients wishes and were consensually agreed upon. Care Teams Gravel Machine Operator Relationship Specialty Start Date End Date Deb Camara MD [address], [place] [id number] PCP - General Internal Medicine 10/07/23 documented as of this encounter
--- OUTSIDE RECORDS SUMMARY | 2024-03-26 23:19 | External Medical Summary ---
Author Name Unknown Address Unknown Organization [id number]:[facility] [address] [place] [address] Laboratory Report Ordering Provider Test Date Status CHELSEA BENNETT 01/03/2024 14:59:27 Final Observation Date Value Abnormality Reference (Units ) Status HbA1C 01/03/2024 14:59:27 5.2 4.0-5.6 (% ) Final The use of HbA1c to monitor glycemic status is based on normal hemoglobin and HbA composition. This test should not be used in patients with abnormal hemoglobin that affects the half life of the red blood cell or the in vivo glycation rates. Glucose, estimated average 01/03/2024 14:59:27 103 <126 (mg/dL) Final Performing Location [facility] - [address] [place] [address]
--- OUTSIDE RECORDS SUMMARY | 2024-03-26 23:19 | External Medical Summary | Summary of Care ---
Author Name Unknown Organization [facility] Address [address] [facility] [place] [address] Phone [phone] Care Team Providers Care Television Service Engineer Name Role Phone Deb Camara MD Primary Care Provider [phone] Reason for Visit * Reason Onset Date Comments Referral 12/22/2023 MTDM Pain Discha rge Encounter Details Date Type Department Care Team (Late st Contact Info) Description 12/22/2023 Telephone Centralized Clinical Pharmacy Services, [place]efania Chicas [address] [place] [address] [place] [address] [facility] [place] [address] [facility] [place] [address] Referral (MTDM Pain Discharge ) Allergies Active [...] FINE MISCIndications:DM type 2, not at goal ([facility] [...] mouth in the morning. Obtaining from [facility] PAP. Active traZODone HCl 100 MG [...] encounter Miscellaneous Notes * Telephone Encounter - Jessica Witt RPh - 01/12/2024 11:12 AM EDT I agree with documented plan of care. Jessica Witt, Pharm D, [facility] Clinical Pharmacist 01/12/2024, 11:13 AM * Telephone Encounter - Courtney Elkins mail carrier and clerk - 01/12/2024 10:42 AM EDT Delvis has not contacted the clinic to schedule/reschedule an appointment for pain management per referral from PCP despite multiple attempts to do so by our team. Requesting patient is discharged from [facility] services at this time. Courtney Elkins Recording Studio Set Up Worker Centralized Clinical Pharmacy Services [address] [place] [address] Dr. [address] [place] [phone] 01/12/2024,10:43 AM * Telephone Encounter - Jessica Witt RPh - 12/22/2023 1:01 PM EDT Referral reviewed and is appropriate. Please schedule. Initial appt length: 60 minutes Patient referred to [facility] clinic for Pain Management Regimen optimization on [...] have his medication therapy managedby the [facility] Medication Therapy Disease Management Clinic ([facility]) [...] understand that the service provided by the [facility] is voluntary and have informed patient that they can refuse the service at their discretion. I am aware that the [facility] will provide me with a copy of the patient encounter via my Meaningo InJianshu. I authorize the [facility] to carry out these activities on my behalf. I consider this program to be a necessary part of the patient's medical care. Sylwia Strickland MD Order Specific Questions Referral Priority Within 30 days (routine) Where should this appointment be scheduled? [facility] Referring Provider Role: Primary Care Reason for [...] Description 01/13/2024 11:30 AM EDT Telemedicine Pharmacy, [place] [address] [place] [address] [place], [facility] [address] [place] [address] 04/03/2024 10:00 AM EST Office Visit Cardiology, [facility] [address] [facility] [place] [address] Sandra Laura CRNP [address] [place] [address] 05/25/2024 1:00 PM EST Telemedicine [facility] [place] [address] [place] [address] Jackson Munoz MD [address] [place] [address] 07/31/2024 11:40 AM EDT Office Visit Nephrology, Bari Cervantes [address] [place] [address] Kerri Garcia MD [address] [place] [address] Scheduled Procedures Name Priority Associated Diagnoses Date/Ti [...] Additional history exists CKD PHOS USE SMARTSET 85376 10/08/202309/25, 08/17/2021, 03/06/2020, Additional history exists COVID-19 [...] 09/21/2024 09/22/2023, 024 CKD HGB USE SMARTSET 82029 10/24/202410/24, 10/25/2023, 06/20/2023, Additional history exists B-12 [...] this encounter Medical Devices Implanted Type Area Perfume Maker Device Identifier Shelf Expiration Date Model / Serial / Lot Lens 19.0 Cz70bd - [id number] - [id number] Implanted:Qty: 1 on 08/09/2016 by Madi Frederick MD at OR [facility] Right: Eye KIMMIE : SURGICAL 2018 [id number] / [id number] / Hemostatic Clip Res 235cm - [id number] Implanted:Qty: 1 on 05/09/[address] MD at ENDOSCOPY [facility] N/A: Stomach [employer] : ENDOSCOPY 11/15/2025 [id number] / / documented as of this encounter Advance Directives * Full Code (Latest Code Status on File) Date Activated Date Inactivated Comments 08/09/2016 2:37 PM 08/09/2016 7:17 PM This order r eflects the patients wishes and were consensually agreed upon. Care Teams Television Service Engineer Relationship Specialty Start Date End Date Deb Camara MD [address] [place] [address] PCP - General Internal Medicine 10/07/23 documented as of this encounter
--- OUTSIDE RECORDS SUMMARY | 2024-03-26 23:19 | External Medical Summary | Summary of Care ---
Author Name Unknown Organization [facility] Address [address] [place] [address] Phone [phone] Care Team Providers Care Director Personal Name Role Phone Deb Camara MD Primary Care Provider [phone] Reason for Visit * Reason Comments Dosage Adjustment Via Phone (anticoag Cl inic) Hypertension Encounter Details Date Type Department Care Team (Late st Contact Info) Description 01/09/2024 3:00 PM EDT Telemedicine Pharmacy, [place] [address] [place] [address] [facility] [address] [place] [address] HTN, goal below 130/80* Allergies Active Allergy Reactions Criticality Noted Date Comments Lisinopril 12/05/2023 dizziness Losartan 05/24/2023 Dizziness documented as of this encounter (statuses as of 01/10/2024) Medications Medication Sig Dispensed Refills Start Date End Date Status Blood Glucose Monitoring Suppl (ONETOUCH VERIO) w/Device KITIndications:DM type 2, not at goal ([facility]),Type 2 diabetes mellitus with hemoglobin A1c goal of less than 8.0% ([facility]) Use to check sugar daily E11.9 1 Kit 01/31/2019 Active ONETOUCH ELIZABETH LANCETS FINE MISCIndications:DM type 2, not at goal ([facility]),Type 2 diabetes mellitus with hemoglobin A1c goal of less than 8.0% ([facility]) Use to test blood sugar once daily- dx E11.9 1 Each 5 01/31/2019 Active OneTouch Verio In Vitro Strip (Glucose Blood)Indications:D M type 2, not at goal ([facility]),Type 2 diabetes mellitus with hemoglobin A1c goal of less than 8.0% ([facility]) Use up check sugar daily E11.9 100 Strip 3 05/20/2023 Active Empagliflozin 10 MG Oral Tablet (Jardiance) Take 1 Tablet by mouth in the morning. Obtaining from [facility] PAP. Active traZODone HCl 100 MG Oral Tablet (Desyrel)Indication s:Persistent insomnia Take 1 Tablet by mouth at bedtime. 90 Tablet 3 09/14/2023 Active amLODIPine Besylate 10 MG Oral Tablet (Norvasc)Indication s:HTN, goal below 130/80 Take 1 Tablet by mouth in the morning. 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 Please obtain labs 3-5 days after starting this medication.. 45 Tablet 12/27/2023 Active Additional Information Patient not taking.Reason: ON HOLD per mt as of 01/03/24, Reported on 01/09/2024 documented as of this encounter (statuses as of 01/10/2024) Active Problems Problem Noted Date Diagnosed Date [...] as of this encounter (statuses as of 01/10/2024) Resolved Problems Problem Noted Date Diagnosed Date [...] as of this encounter (statuses as of 01/10/2024) Immunizations Name Administration Dates Next Due COVID-19 mRNA, LNP-s, No Pre serve, 2-Dose Series ([email or web address]) 02/02/2021,06/14/2020,05/24/2020 COVID-19, LNP-s, No Preserve , Ellis-sucrose, [...] encounter Progress Notes * Analilia Ceja, [facility] - 01/09/2024 3:07 PM EDT [facility] - Hypertension Management This patient was contacted as part of the [facility] Nephrology HTN remote monitoring check pilot. Blood Pressure Goal: 130/80 mmHg Current Hypertension Medications: Amlodipine 10 mg in AM -- has not been taking on accident for the last week Furosemide 40 mg in AM Metoprolol Succinate ER 25 mg in AM *Jardiance 10 mg once in AM ON HOLD Spironolactone 12.5 mg once daily in AM - since 01/03 SBP DBP Pulse 164 60 55 dizzy 137 61 60 dizzy 150 62 56 dizzy 144 61 58 147 61 56 137 70 61 138 65 60 Average 145 63 #DIV/0! 58 #DIV/0! Hi 164 70 0 61 0 Lo 137 60 0 55 0 Range 27 10 0 6 0 ASSESSMENT & PLAN: Patient's blood pressures above are elevated above goal. Does not seem to be a correlation with lowBP and dizziness. Pulse runs on lower end limiting ability to increase BB dose. Patient reports that he noticed that he had forgotten to put his amlodipine into his pill box for the last week. We will check in on BP with amlodipine on board before making adjustments. I did explain to patient that we are limited in the BB dose, and that if further BP control is needed, we will need to look to re-start spironolactone, but potentially decrease the BB dose or the amlodipine dose. Right now, I am more in favor of decreasing the BB dose due to the lower pulse, and less potency on BP lowering. Patient educated on the following: Good hydration MEDICATION CHANGES: none Hypertension Medications: RESUME Amlodipine 10 mg in AM Furosemide 40 mg in AM Metoprolol Succinate ER 25 mg in AM *Jardiance 10 mg once in AM ON HOLD Spironolactone 12.5 mg once daily in AM - since 01/03 HEALTH MAINTENANCE INTERVENTIONS: Labs: Ordered & Scheduled: Up to date -- > note that BMP showed stability after 1 week on spironolactone FOLLOW UP: in 1 week via phone 01/13/2024 Analilia Ceja [facility] Clinical Pharmacist - Senior Data Warehouse Developer Medication Therapy Management Clinic 01/09/2024, 3:07 PM documented in this encounter Plan of Treatment Upcoming Encounters Date Type Department Care Team (Late st Contact Info) Description 01/13/2024 11:30 AM EDT Telemedicine Pharmacy, [address] [address] [facility] [address] [place] [address] 04/03/2024 10:00 AM EST Office Visit Cardiology, [facility] [address] [place] [address] Sandra Laura CRNP [address] [place] [address] 05/25/2024 1:00 PM EST Telemedicine [facility] [place] [address] [facility] [place] [address] Jackson Munoz MD [address] [facility] [place] [address] 07/31/2024 11:40 AM EDT Office Visit Nephrology, [place] Cervantes 200 [facility] [place] [address] Kerri Garcia MD [address] [place] [address] Scheduled Procedures Name Priority Associated Diagnoses Date/Ti [...] Additional history exists CKD PHOS USE SMARTSET 03085 10/08/202309/25, 08/17/2021, 03/06/2020, Additional history exists COVID-19 [...] 09/21/2024 09/22/2023, 024 CKD HGB USE SMARTSET 75978 10/24/202410/24, 10/25/2023, 06/20/2023, Additional history exists B-12 [...] this encounter Medical Devices Implanted Type Area Electrical Line Mechanic Device Identifier Shelf Expiration Date Model / Serial / Lot Lens 19.0 Cz70bd - [id number] - [id number] Implanted:Qty: 1 on 08/09/2016 by Madi Frederick MD at OR [facility] Right: Eye KIMMIE : SURGICAL 2018 [id number] / [id number] / Hemostatic Clip Res 235cm - [id number] Implanted:Qty: 1 on 05/09/[address] MD at ENDOSCOPY [facility] N/A: Stomach [employer] : ENDOSCOPY 11/15/2025 [id number] / / documented as of this encounter Visit Diagnoses Diagnosis HTN, goal below 130/80- Primary Unspecified essential hypertension documented in this encounter Advance Directives * Full Code (Latest Code Status on File) Date Activated Date Inactivated Comments 08/09/2016 2:37 PM 08/09/2016 7:17 PM This order r eflects the patients wishes and were consensually agreed upon. Care Teams Director Personal Relationship Specialty Start Date End Date Deb Camara MD [address] [place] [place] [address] PCP - General Internal Medicine 10/07/23 documented as of this encounter
--- OUTSIDE RECORDS SUMMARY | 2024-03-26 23:19 | External Medical Summary | Summary of Care ---
Author Name Unknown Organization [facility] Address [address] [place] [address] Phone [phone] Care Team Providers Care River Boat Captain Name Role Phone Deb Camara MD Primary Care Provider [phone] Reason for Visit * Reason Comments Dosage Adjustment Via Phone (anticoag Cl inic) Hypertension Encounter Details Date Type Department Care Team (Late st Contact Info) Description 01/13/2024 11:30 AM EDT Telemedicine Pharmacy, [place] [address] [place] [address] [facility] [address] [place] [address] HTN, goal below 130/80* Allergies Active Allergy Reactions Criticality Noted Date Comments Lisinopril 12/05/2023 dizziness Losartan 05/24/2023 Dizziness documented as of this encounter (statuses as of 01/13/2024) Medications Medication Sig Dispensed Refills Start Date [...] by mouth in the morning. Obtaining from [facility] PAP. Active traZODone HCl 100 MG Oral Tablet (Desyrel)Indication s:Persistent insomnia Take 1 Tablet by mouth at bedtime. 90 Tablet 3 09/14/2023 Active amLODIPine Besylate 10 MG Oral Tablet (Norvasc)Indication s:HTN, goal below 130/80 Take 1 Tablet by mouth in the morning. 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 right-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) Take 1 [...] as of this encounter (statuses as of 01/13/2024) Active Problems Problem Noted Date Diagnosed Date [...] as of this encounter (statuses as of 01/13/2024) Resolved Problems Problem Noted Date Diagnosed Date [...] as of this encounter (statuses as of 01/13/2024) Immunizations Name Administration Dates Next Due COVID-19 mRNA, LNP-s, No Pre serve, 2-Dose Series (SpringCM) 02/02/2021,06/14/2020,05/24/2020 COVID-19, LNP-s, No Preserve , Ellis-sucrose, [...] [facility] - 01/13/2024 11:48 AM EDT [facility] - Hypertension Management This patient was contacted as part of the [facility] Nephrology HTN 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 Blood Pressure Goal: 130/80 mmHg Current Hypertension Medications: Amlodipine 10 mg in AM -- restarted 01/08 Furosemide 40 mg in AM Metoprolol Succinate ER 25 mg in AM *Jardiance 10 mg once in AM ON HOLD Spironolactone 12.5 mg once daily in AM - since 01/03 SBP DBP Pulse 14-Oct 133 60 60 dizzy 14-Oct 129 73 59 15-Oct 122 56 70 16-Oct 144 62 62 17-Oct 133 60 65 Average 132 62 #DIV/0! 63 #DIV/0! Hi 144 73 0 70 0 Lo 122 56 0 59 0 Range 22 17 0 11 0 ASSESSMENT & PLAN: Patient's blood pressures are slightly elevated above goal. Not recommending any changes at this time--> sprionolactone still on hold. Pulse runs on lower end limiting ability to increase BB dose. We will check in on BP in 2 weeks. We are limited in the BB dose, and that if further BP control is needed, we will need to look to re-start spironolactone, but potentially decrease the BB dose or the amlodipine dose. I am more in favor of decreasing the BB dose due to the lower pulse, and less potency on BP lowering. MEDICATION CHANGES: none Hypertension Medications: Amlodipine 10 [...] FOLLOW UP: in 2 week via phone 01/27/2024 Analilia Ceja [facility] Clinical Pharmacist - Cake Press Operator Helper Medication Therapy Management Clinic 01/13/24 1:48 PM documented in this encounter Plan of Treatment Upcoming Encounters Date Type Department Care Team (Late st Contact Info) Description 01/27/2024 1:40 PM EDT Telemedicine Pharmacy, [address] [address] [facility] [address] [place] [address] 04/03/2024 10:00 AM EST Office Visit Cardiology, [facility] [address] [place] [address] Sandra Laura CRNP [address] [place] [address] 05/25/2024 1:00 PM EST Telemedicine [facility] [place] [address] [place] [address] Jackson Munoz MD [address] [place] [address] 07/31/2024 11:40 AM EDT Office Visit Nephrology, [place] [address] [place] [address] Kerri Garcia MD 200 [facility] [place] [address] Scheduled Procedures Name Priority Associated Diagnoses Date/Ti [...] Additional history exists CKD PHOS USE SMARTSET 90658 10/08/202309/25, 08/17/2021, 03/06/2020, Additional history exists COVID-19 [...] 09/21/2024 09/22/2023, 024 CKD HGB USE SMARTSET 36072 10/24/202410/24, 10/25/2023, 06/20/2023, Additional history exists B-12 [...] this encounter Medical Devices Implanted Type Area Tactical Deception Plans Officer Device Identifier Shelf Expiration Date Model / Serial / Lot Lens 19.0 Cz70bd - [id number] - [id number] Implanted:Qty: 1 on 08/09/2016 by Madi Frederick MD at OR [facility] Right: Eye KIMMIE : SURGICAL 2018 [id number] / [id number] / Hemostatic Clip Res 235cm - [id number] Implanted:Qty: 1 on 05/09/[address] MD at ENDOSCOPY [facility] N/A: Stomach [employer] : ENDOSCOPY 11/15/2025 [id number] / / documented as of this encounter Visit Diagnoses Diagnosis HTN, goal below 130/80- Primary Unspecified essential hypertension documented in this encounter Advance Directives * Full Code (Latest Code Status on File) Date Activated Date Inactivated Comments 08/09/2016 2:37 PM 08/09/2016 7:17 PM This order r eflects the patients wishes and were consensually agreed upon. Care Teams River Boat Captain Relationship Specialty Start Date End Date Deb Camara MD [address] [place] [address] PCP - General Internal Medicine 10/07/23 documented as of this encounter
--- OUTSIDE RECORDS SUMMARY | 2024-03-26 23:19 | External Medical Summary | Summary of Care ---
Author Name Unknown Organization [facility] Address [address] [place] [address] Phone [phone] Care Team Providers Care Housekeeping And Laundry Team Leader Name Role Phone Deb Camara MD Primary Care Provider [phone] Reason for Visit * Reason Comments Outpatient Testing Encounter Details Date Type Department Care Team (Late st Contact Info) Description 01/03/2024 3:00 PM EDT Laboratory Laboratory, [place] [address] [place] [address] [place], [facility] [address] [place], [place] [phone] Diabetes mellitus (HCC); On mcfp drug therapy; Hypertension, unspecified type; HTN, goal below 130/80 Allergies Active Allergy [...] dx E11.9 1 Each 5 01/31/2019 Active RussellTouch Verio In Vitro Strip (Glucose Blood)Indications:DM type 2, not at goal (HCC),Type 2 diabetes mellitus with hemoglobin A1c goal of less than 8.0% ([facility]) Use up check sugar daily E11.9 100 Strip 3 05/20/2023 Active Empagliflozin 10 MG Oral Tablet (Jardiance) Take 1 Tablet by mouth in the morning. Obtaining from [facility] PAP. Active traZODone HCl 100 MG [...] Description 01/09/2024 3:00 PM EDT Telemedicine Pharmacy, [place] [address] [place] [address] [facility] [address] [place] [address] 04/03/2024 10:00 AM EST Office Visit Cardiology, [facility] [address] [place] [address] Sandra Laura CRNP [address] [place] [address] 05/25/2024 1:00 PM EST Telemedicine [facility] [place] [address] [facility] [place] [address] Jackson Munoz MD [address] [facility] [place] [address] 07/31/2024 11:40 AM EDT Office Visit Nephrology, [place] [address] [place] [address] Kerri Garcia MD 200 [facility] [place] [address] Pending Results Name Type Priority Associated Diagnoses Date /Time HEMOGLOBIN A1C Lab Routine Diabetes mellitus (HCC) 01/03/2024 2:59 PM EDT VITAMIN B12 Lab Routine On laborer marine terminal drug therapy 01/03/2024 2:59 PM EDT COMPREHENSIVE METABOLIC PANEL Lab Routine Hypertension, unspecified type 01/03/2024 2:59 PM EDT Scheduled Procedures Name Priority Associated [...] Additional history exists CKD PHOS USE SMARTSET 14755 10/08/202309/25, 08/17/2021, 03/06/2020, Additional history exists COVID-19 [...] 09/21/2024 09/22/2023, 024 CKD HGB USE SMARTSET 08492 10/24/202410/24, 10/25/2023, 06/20/2023, Additional history exists DTap/Tdap [...] this encounter Medical Devices Implanted Type Area Positive Printer Operator Device Identifier Shelf Expiration Date Model / Serial / Lot Lens 19.0 Cz70bd - [id number] - [id number] Implanted:Qty: 1 on 08/09/2016 by Madi Frederick MD at OR [facility] Right: Eye KIMMIE : SURGICAL 2018 [id number] / [id number] / Hemostatic Clip Res 235cm - [id number] Implanted:Qty: 1 on 05/09/[address] MD at ENDOSCOPY [facility] N/A: Stomach [employer] : ENDOSCOPY 11/15/2025 [id number] / / documented as of this encounter Visit Diagnoses Diagnosis Diabetes mellitus (HCC) Type II or unspecified type diabetes mellitus without mention of complication, not stated as uncontrolled On mcfp drug therapy Hypertension, unspecified type documented in this encounter Advance Directives * Full Code (Latest Code Status on File) Date Activated Date Inactivated Comments 08/09/2016 2:37 PM 08/09/2016 7:17 PM This order r eflects the patients wishes and were consensually agreed upon. Care Teams Housekeeping And Laundry Team Leader Relationship Specialty Start Date End Date Deb Camara MD [address] [place] [facility] [place] [address] PCP - General Internal Medicine 10/07/23 documented as of this encounter
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
--- OUTSIDE RECORDS SUMMARY | 2024-03-26 23:20 | External Medical Summary | Summary of Care ---
Author Name Unknown Organization [facility] Address [address] [place] [address] Phone [phone] Care Team Providers Care Clinical Informatics Manager Name Role Phone Deb Camara MD Primary Care Provider [phone] Reason for Visit * Reason Onset Date Comments Appointment 09/13/2023 Encounter Details Date Type Department Care Team (Late st Contact Info) Description 09/13/2023 Telephone Access Center, [place] [address] [facility] *DO NOT REMOVE THIS DEPARTMENT* [place] [address] Services, Scheduling [address] [place] [address] Appointment Allergies Active Allergy Reactions Criticality Noted Date Comments Lisinopril 12/05/2023 dizziness Losartan 05/24/2023 Dizziness documented as of this encounter (statuses as of 12/13/2023) Medications Medication Sig Dispensed Refills Start Date End Date Status Blood Glucose Monitoring Suppl (ONETOUCH VERIO) w/Device KITIndications:D M type 2, not at goal (HCC),Type 2 diabetes mellitus with hemoglobin A1c goal of less than 8.0% ([facility]) Use to check sugar daily E11.9 1 Kit 01/31/2019 Active SnapLayoutTOUCH ELIZABETH ROGERS FINE MISCIndications: DM type 2, not at goal (HCC),Type 2 diabetes mellitus with hemoglobin A1c goal of less than 8.0% (HCC) Use to test blood sugar once daily- dx E11.9 1 Each 5 01/31/2019 Active Cardica In Vitro Strip (Glucose Blood)Indication s:DM type 2, not at goal (HCC),Type 2 diabetes mellitus with hemoglobin A1c goal of less than 8.0% ([facility]) Use up check sugar daily E11.9 100 Strip 3 05/20/2023 Active Empagliflozin 10 MG Oral Tablet (Jardiance) Take 1 Tablet by mouth in the morning. Obtaining from [facility] PAP. Active Magnesium 125 MG Oral Capsule Take by mouth. 09/22/19 24 Discontinued(Pat ient preference/disco ntinuation) Vitamin D3 25 MCG (1000 UT) Oral Capsule Take by mouth. 09/22/19 24 Discontinued(Pat ient preference/disco ntinuation) Metoprolol Succinate ER 25 MG Oral Tablet Extended Release 24 Hour (toPROL XL)Indications:C hronic right-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) Take 1 Tablet by mouth in the morning. 90 Tablet 2 03/20/2023 10/15/19 24 Discontinued(Ref ill) Gabapentin 300 MG Oral Capsule (Neurontin) Take 1 Capsule by mouth at bedtime. 30 Capsule 5 05/24/2023 10/17/19 24 Discontinued(Med ication List Clean Up) Amoxicillin 875 MG Oral TabletIndication s:Acute maxillary sinusitis, recurrence not specified Take 1 Tablet by mouth in the morning and 1 Tablet before bedtime. Do all this for 10 days. 20 Tablet 07/06/2023 10/24/19 24 Discontinued(Med ication List Clean Up) amLODIPine Besylate 10 MG Oral Tablet (Norvasc)Indicat ions:HTN, goal below 130/80 Take 1 Tablet by mouth in the morning. 90 Tablet 3 07/07/2023 10/02/19 24 Discontinued(Ref ill) oxyCODONE HCl 10 MG Oral Tablet (Roxicodone)Gayathri cations:Other closed fracture of thoracic vertebra, unspecified thoracic vertebral level, sequela Take 1 Tablet by mouth in the morning and 1 Tablet at noon and 1 Tablet in the evening and 1 Tablet before bedtime. 120 Tablet 08/18/2023 09/14/19 24 Discontinued(Ref ill) glipiZIDE ER 2.5 MG Oral Tablet Extended Release 24 Hour (glipiZIDE XL)Indications:T ype 2 diabetes mellitus with hemoglobin A1c goal of less than 8.0% ([facility]) Take 1 Tablet by mouth in the morning. Dose decrease. 30 Tablet 2 08/26/2023 09/19/19 24 Discontinued(Ref ill) Furosemide 40 MG Oral Tablet (Lasix)Indicatio ns:Chronic heart failure with preserved ejection fraction (HCC) 2 tabs every Mon, Wed, Fri. 1 tab every Sun/ / Th/ Sat 135 Tablet 3 09/13/2023 09/20/19 24 Discontinued documented as of this encounter (statuses as of 12/13/2023) Active Problems Problem Noted Date Diagnosed Date [...] as of this encounter (statuses as of 12/13/2023) Resolved Problems Problem Noted Date Diagnosed Date [...] as of this encounter (statuses as of 12/13/2023) Immunizations Name Administration Dates Next Due COVID-19 mRNA, LNP-s, No Pre serve, 2-Dose Series (Jammcard) 02/02/2021,06/14/2020,05/24/2020 COVID-19, LNP-s, No Preserve , Ellis-sucrose, Ages 12+ (Jammcard) 10/08/2021 Pneumococcal Conjugate Vacc, 13 Valent (Prevnar) 03/19/2015 Pneumococcal Polysaccharide PPV23 (Pneumovax) 08/09/2013 Seasonal Influenza, PF, 6 M & above, IM , (FluLaval or Fluzone) 12/08/2019 Seasonal Influenza, Quadriva lent Hd (Fluzone Hd) 12/22/2022,12/19/2020 Seasonal Influenza, Quadriva lent, No Preserve, IM 01/09/2018,01/22/2016,03/06/2015 01/21/2017 Seasonal Influenza, Trivalen t, (IIV3), with Preserv, (Fluzone) 02/06/2013,02/10/2012,01/26/2011,07/2009,01/30/2009,02/08/2006 Seasonal Influenza, Trivalen t, Adjuvanted, 65+ YRS, [...] encounter Miscellaneous Notes * Telephone Encounter - Erika Murry PA-C - 09/14/2023 5:01 PM EDT Chart reviewed. PCP provided Roxicodone today. No longer using gabapentin due to CKD. Of note, also requested trazodone thru PCP. + DM Rather limited medication dotson due to CKD and DM. Can consider restarting gabapentin but would recommend 100 mg -- also willing to speak with family nurse, if needed. Consider muscle relaxant although concerned for Roxicodone and trazodone use as well. Could try low dose cymbalta. * Telephone Encounter - Vee Joseph OSA - 09/13/2023 3:39 PM EDT Pts spouse is calling regarding his upcoming injection on 11/23/[address] Shah. Pt is in severe pain and can barely move around; they would like to know if there is anything sooner that he might be able to get into or any suggestions that what he should do. Pt spouse stated that she can see that it is really effecting his quality of life documented in this encounter Plan of Treatment Upcoming Encounters Date Type Department Care Team (Late st Contact Info) Description 12/16/2023 11:30 AM EDT Nurse Only Ancillary Department, [place] [address] [place] [facility] [place] [address] [place] Nurse [address] [place] [address] 12/27/2023 11:00 AM EDT Office Visit Pharmacy, [place] [address] [place] [address] [place], [facility] [address] [place] [address] 04/03/2024 10:00 AM EST Office Visit Cardiology, [facility] [address] [place] [address] Sandra Laura CRNP [address] [place] [address] 05/25/2024 1:00 PM EST Telemedicine [facility] [address] [place] [address] Jackson Munoz MD [address] [facility] [address] 07/31/2024 11:40 AM EDT Office Visit Nephrology, [facility] [address] [place] [address] Kerri Garcia MD [address] [place] [address] Scheduled Procedures Name Priority Associated Diagnoses Date/Ti [...] Additional history exists CKD PHOS USE SMARTSET 99136 10/08/202309/25, 08/17/2021, 03/06/2020, Additional history exists COVID-19 [...] Additional history exists Depression Monitoring 09/21/2024 09/22/2023, 06/27/2 024 CKD HGB USE SMARTSET 20908 10/24/202410/24, 10/25/2023, 06/20/2023, Additional history exists DTap/Tdap [...] this encounter Medical Devices Implanted Type Area Glazing Department Supervisor Device Identifier Shelf Expiration Date Model / Serial / Lot Lens 19.0 Cz70bd - [id number] - [id number] Implanted:Qty: 1 on 08/09/2016 by Madi Frederick MD at OR [facility] Right: Eye KIMMIE : SURGICAL 2018 [id number] / [id number] / Hemostatic Clip Res 235cm - [id number] Implanted:Qty: 1 on 05/09/[address] MD at ENDOSCOPY [facility] N/A: Stomach [employer] : ENDOSCOPY 11/15/2025 [id number] / / documented as of this encounter Advance Directives * Full Code (Latest Code Status on File) Date Activated Date Inactivated Comments 08/09/2016 2:37 PM 08/09/2016 7:17 PM This order r eflects the patients wishes and were consensually agreed upon. Care Teams Clinical Informatics Manager Relationship Specialty Start Date End Date Deb Camara MD [address] [place] [address] PCP - General Internal Medicine 10/07/23 documented as of this encounter
--- OUTSIDE RECORDS SUMMARY | 2024-03-26 23:20 | External Medical Summary | Summary of Care ---
Author Name Unknown Organization [facility] Address [address] [place] [address] Phone [phone] Care Team Providers Care Instrument Technician Name Role Phone Deb Camara MD Primary Care Provider [phone] Encounter Details Date Type Department Care Team (Late st Contact Info) Description 12/16/2023 11:30 AM EDT Nurse Only Ancillary Department, [place] [address] [place] [address] [place], Nurse [address] [place] [address] Arrived Allergies Active Allergy Reactions Criticality Noted Date Comments Lisinopril 12/05/2023 dizziness Losartan 05/24/2023 Dizziness documented as of this encounter (statuses as of 12/16/2023) Medications Medication Sig Dispensed Refills Start Date End Date Status Blood Glucose Monitoring Suppl (ONETOUCH VERIO) w/Device KITIndications:DM type 2, not at goal ([facility]),Type 2 diabetes mellitus with hemoglobin A1c goal of less than 8.0% ([facility]) Use to check sugar daily E11.9 1 Kit 01/31/2019 Active ONETOUCH ELIZABETH LANCETS FINE MISCIndications:DM type 2, not at goal (HCC),Type 2 diabetes mellitus with hemoglobin A1c goal of less than 8.0% ([facility]) Use to test blood sugar once daily- dx E11.9 1 Each 5 01/31/2019 Active OneTouch Verio In Vitro Strip (Glucose Blood)Indications:DM type 2, not at goal ([facility]),Type 2 diabetes mellitus with hemoglobin A1c goal of less than 8.0% ([facility]) Use up check sugar daily [...] and 1 Tablet before bedtime. 120 Tablet 11/17/2023 Active documented as of this encounter (statuses as of 12/16/2023) Active Problems Problem Noted Date Diagnosed Date [...] as of this encounter (statuses as of 12/16/2023) Resolved Problems Problem Noted Date Diagnosed Date [...] as of this encounter (statuses as of 12/16/2023) Immunizations Name Administration Dates Next Due COVID-19 mRNA, LNP-s, No Pre serve, 2-Dose Series (Pfizer) 02/02/2021,06/14/2020,05/24/2020 COVID-19, LNP-s, No Preserve , Ellis-sucrose, Ages 12+ (Pfizer) 10/08/2021 Pneumococcal Conjugate Vacc, 13 Valent (Prevnar) 03/19/2015 Pneumococcal Polysaccharide PPV23 (Pneumovax) 08/09/2013 Seasonal Influenza, High Dos e, Trivalent, PF, [...] as of this encounter Progress Notes * Ángela Real LPN - 12/16/2023 11:37 AM EDT Patient was assessed by Dr. Strickland prior to sutures being removed. 15 sutures were removed from his R eyebrow with no issues or concerns. Patient was told to make an appointment with his PCP for a hospital follow up. documented in this encounter Plan of Treatment Upcoming Encounters Date Type Department Care Team (Late st Contact Info) Description 12/27/2023 11:00 AM EDT Office Visit Pharmacy, [address] [address] [facility] [address] [place] [address] 04/03/2024 10:00 AM EST Office Visit Cardiology, [facility] [address] [place] [address] Sandra Laura CRNP [address] [place] [address] 05/25/2024 1:00 PM EST Telemedicine [facility] [place] [address] [facility] [place] [address] Jackson Munoz MD [address] [place] [address] [place] [address] 07/31/2024 11:40 AM EDT Office Visit Nephrology, [facility] [address] [facility] [place] [address] Kerri Garcia MD [address] [facility] [place], [place] [address] Scheduled Procedures Name Priority Associated Diagnoses Date/Ti [...] Additional history exists CKD PHOS USE SMARTSET 75507 10/08/202309/25, 08/17/2021, 03/06/2020, Additional history exists COVID-19 [...] 09/21/2024 09/22/2023, 024 CKD HGB USE SMARTSET 12718 10/24/202410/24, 10/25/2023, 06/20/2023, Additional history exists DTap/Tdap [...] this encounter Medical Devices Implanted Type Area Outside Deliverer Device Identifier Shelf Expiration Date Model / Serial / Lot Lens 19.0 Cz70bd - [id number] - [id number] Implanted:Qty: 1 on 08/09/2016 by Madi Frederick MD at OR [facility] Right: Eye KIMMIE : SURGICAL 2018 [id number] / [id number] / Hemostatic Clip Res 235cm - [id number] Implanted:Qty: 1 on 05/09/[address] MD at ENDOSCOPY [facility] N/A: Stomach [employer] : ENDOSCOPY 11/15/2025 [id number] / / documented as of this encounter Advance Directives * Full Code (Latest Code Status on File) Date Activated Date Inactivated Comments 08/09/2016 2:37 PM 08/09/2016 7:17 PM This order r eflects the patients wishes and were consensually agreed upon. Care Teams Instrument Technician Relationship Specialty Start Date End Date Deb Camara MD [address] [place] [facility] [place] [address] PCP - General Internal Medicine 10/07/23 documented as of this encounter
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
--- OUTSIDE RECORDS SUMMARY | 2024-03-26 23:20 | External Medical Summary | Summary of Care ---
Author Name Unknown Organization [facility] Address [address] [facility] [place] [address] Phone [phone] Care Team Providers Care Language Asst Name Role Phone Deb Camara MD Primary Care Provider [phone] Reason for Visit * Reason Onset Date Comments Referral 12/22/2023 [facility] Pain Encounter Details Date Type Department Care Team (Late st Contact Info) Description 12/22/2023 Telephone Centralized Clinical Pharmacy Services, Estefania Chicas [address] [place] [address] [place] [phone] [facility] [place] [address] [facility] [place] [address] Referral ([facility] Pain) Allergies Active Allergy Reactions Criticality Noted Date Comments Lisinopril 12/05/2023 dizziness Losartan 05/24/2023 Dizziness documented as of this encounter (statuses as of 12/22/2023) Medications Medication Sig Dispensed Refills Start Date [...] [facility]) Use to test blood sugar once daily- dx E11.9 1 Each 5 01/31/2019 Active OneTouch Verio In Vitro Strip (Glucose Blood)Indications:DM type 2, not at goal ([facility]),Type 2 diabetes mellitus with hemoglobin A1c goal of less than 8.0% ([facility]) Use up check sugar daily E11.9 100 Strip 3 05/20/2023 Active Empagliflozin 10 MG Oral Tablet (Jardiance) Take 1 Tablet by mouth in the morning. Obtaining from [facility]. Active traZODone HCl 100 MG Oral [...] as of this encounter (statuses as of 12/22/2023) Active Problems Problem Noted Date Diagnosed Date [...] as of this encounter (statuses as of 12/22/2023) Resolved Problems Problem Noted Date Diagnosed Date [...] as of this encounter (statuses as of 12/22/2023) Immunizations Name Administration Dates Next Due COVID-19 [...] Notes * Telephone Encounter - Jessica Witt [facility] - 12/22/2023 1:01 PM EDT Referral reviewed and is appropriate. Please schedule. Initial appt length: 60 minutes Patient referred to [facility] clinic for Pain Management Regimen optimization on [...] will have his medication therapy managedby the [facility] Medication Therapy Disease Management Clinic ([facility]) per established policies, procedures, and protocols. I also certify that this referral may serve as an initiation of service for the management of drug therapy in the above noted patient. [facility] providers will be responsible for scheduling patient visits, obtaining appropriate laboratory studies, and adjusting medication management therapy per patient's need, in addition to those roles spelled out in the clinic policy, procedures, and drug management protocols. I understand that the service provided by the [facility] is voluntary and have informed patient that they can refuse the service at their discretion. I am aware that the [facility] will provide me with a copy of the patient encounter via my [employer] [facility]. I authorize the [facility] to carry out these activities on my behalf. I consider this program to be a necessary part of the patient's medical care. Sylwia Strickland MD Order Specific Questions Referral Priority Within 30 days (routine) Where should this appointment be scheduled? [facility] Referring Provider Role: Primary Care Reason for [...] 12/27/2023 11:00 AM EDT Office Visit Pharmacy, [place] [address] [place] [address] [facility] [address] [place] [address] 04/03/2024 10:00 AM EST Office Visit Cardiology, [facility] [place] [address] Sandra Laura CRNP [address] [facility] [place] [address] 05/25/2024 1:00 PM EST Telemedicine [facility] [address] [place] [address] Jackson Munoz MD [address] [facility] [place] [address] 07/31/2024 11:40 AM EDT Office Visit Nephrology, [address] [place], [place] [address] Kerri Garcia MD [address] [place] [address] Scheduled Procedures Name Priority Associated Diagnoses Date/Ti [...] Additional history exists CKD PHOS USE SMARTSET 33100 10/08/202309/25, 08/17/2021, 03/06/2020, Additional history exists COVID-19 [...] 09/21/2024 09/22/2023, 024 CKD HGB USE SMARTSET 54119 10/24/202410/24, 10/25/2023, 06/20/2023, Additional history exists DTap/Tdap [...] this encounter Medical Devices Implanted Type Area Upper Trimmer Device Identifier Shelf Expiration Date Model / Serial / Lot Lens 19.0 [id number] - [id number] - [id number] Implanted:Qty: 1 on 08/09/2016 by Madi Frederick MD at [facility] Right: Eye KIMMIE : SURGICAL 2018 [id number] / [id number] / Hemostatic Clip Res 235cm - [id number] Implanted:Qty: 1 on 05/09/[address] MD at ENDOSCOPY [facility] N/A: Stomach [employer] : ENDOSCOPY 11/15/2025 [id number] / / documented as of this encounter Advance Directives * Full Code (Latest Code Status on File) Date Activated Date Inactivated Comments 08/09/2016 2:37 PM 08/09/2016 7:17 PM This order r eflects the patients wishes and were consensually agreed upon. Care Teams Language Asst Relationship Specialty Start Date End Date Deb Camara MD [address] [facility] [address] PCP - General Internal Medicine 10/07/23 documented as of this encounter
--- OUTSIDE RECORDS SUMMARY | 2024-03-26 23:20 | External Medical Summary | Summary of Care ---
Author Name Unknown Organization [facility] Address [address] [place] [address] Phone [phone] Care Team Providers Care Grinding Mill Operator Name Role Phone Deb Camara MD Primary Care Provider [phone] Reason for Visit * Reason Onset Date Comments Medication Refill 12/19/2023 Encounter Details Date Type Department Care Team (Late st Contact Info) Description 12/19/2023 Refill Formerly [facility] [address] [place] [address] Deb Camara MD [address] [place] [address] Other closed fracture of thoracic vertebra, unspecified thoracic vertebral level, sequela Allergies Active Allergy Reactions Criticality Noted Date Comments Lisinopril 12/05/2023 dizziness Losartan 05/24/2023 Dizziness documented as of this encounter (statuses as of 12/20/2023) Medications Medication Sig Dispensed Refills Start Date End Date Status Blood Glucose Monitoring Suppl (ONETOUCH VERIO) w/Device KITIndications:DM type 2, not at goal ([place] [...] by mouth in the morning. Obtaining from [facility] PAP. Active traZODone HCl 100 MG [...] as of this encounter (statuses as of 12/20/2023) Active Problems Problem Noted Date Diagnosed Date [...] as of this encounter (statuses as of 12/20/2023) Resolved Problems Problem Noted Date Diagnosed Date [...] as of this encounter (statuses as of 12/20/2023) Immunizations Name Administration Dates Next Due COVID-19 [...] Notes * Telephone Encounter - Vinita Hyde [facility] - 12/20/2023 10:08 AM EDTRefused Prescriptions: Disp Refills oxyCODONE HCl 10 MG Oral Tablet (Roxicodon*120 Ta*0 Sig: Take 1Tablet by mouth in the morning and 1 Tablet at noon and 1 Tablet in the evening and 1 Tablet beforebedtime.Refused By: VINITA HYDE for Refusal: Duplicate Request documented in this encounter Plan of Treatment Upcoming Encounters Date Type Department Care Team (Late st Contact Info) Description 12/27/2023 11:00 AM EDT Office Visit Pharmacy, [place] [address] [place] [address] [facility] [address] [facility] [place], [place] [id number] 04/03/2024 10:00 AM EST Office Visit Cardiology, [facility] [address] [place] [address] Sandra Laura CRNP [address] [place] [address] 05/25/2024 1:00 PM EST Telemedicine [facility]da Abarca [address] [facility] [place] [address] Jackson Munoz MD [address] [place] [address] 07/31/2024 11:40 AM EDT Office Visit Nephrology, [facility] [address] [place] [address] Kerri Garcia MD [address] [place] [address] Scheduled Procedures Name Priority Associated Diagnoses Date/Ti [...] Additional history exists CKD PHOS USE SMARTSET 32786 10/08/202309/25, 08/17/2021, 03/06/2020, Additional history exists COVID-19 Vaccine ( season) 2023 12/30/2022, 10/08/2021, 02/02/2021, Additional history exists B-12 01/05/2024 01/04/2023, 01/27, 02/14/2020, Additional history exists HbA1c 03/14/2024 09/13/2023, 05/27, 01/04/2023, Additional history exists GFR 04/26/2024 10/25/2023, 06/07/2023, 09/13/2023, Additional history exists Colonoscopy 05/09/2024 05/09/2023, 04/28, 01/30/2019, Additional history exists Albumin/Creatinine Ratio 06/19/2024 024, 10/07/2022, 08/17/2021, Additional history exists Diabetic Foot Exam 09/12/2024 09/13/2023, 1 04/15/2019, 05/18/2018, Additional history exists Depression Monitoring 09/21/2024 09/22/2023, 024 CKD HGB USE SMARTSET 64993 10/24/202410/24, 10/25/2023, 06/20/2023, Additional history exists DTap/Tdap [...] this encounter Medical Devices Implanted Type Area Watcher Lookout Tower Device Identifier Shelf Expiration Date Model / Serial / Lot Lens 19.0 [id number] - [id number] - [id number] Implanted:Qty: 1 on 08/09/2016 by Madi Frederick MD at OR [facility] Right: Eye KIMMIE : SURGICAL 2018 [id number] 0 / [id number] / Hemostatic Clip Res 235cm - [id number] Implanted:Qty: 1 on 05/09/[address] Davis MD at ENDOSCOPY [facility] N/A: Stomach [facility] : ENDOSCOPY 11/15/2025 [id number] / / documented as of this encounter Visit Diagnoses Diagnosis Other closed fracture of thoracic vertebra, unspecified thoracic vertebral level, sequela documented in this encounter Advance Directives * Full Code (Latest Code Status on File) Date Activated Date Inactivated Comments 08/09/2016 2:37 PM 08/09/2016 7:17 PM This order r eflects the patients wishes and were consensually agreed upon. Care Teams Grinding Mill Operator Relationship Specialty Start Date End Date Deb Camara MD [address] [place] [address] PCP - General Internal Medicine 10/07/23 documented as of this encounter
--- OUTSIDE RECORDS SUMMARY | 2024-03-26 23:20 | External Medical Summary ---
Author Name Unknown Address Unknown Organization K01:LABORATORY [facility] - [facility] [address] [place] [place] [address] Laboratory Report Ordering Provider Test Date Status LEI MARTINEZ 12/19/2023 11:15:41 Final Cutoff Concentrations:
D rug Level
Oxycodone 50 ng/mL
Oxymorphone 50 ng/mL

This test was developed and its performance characteristics determined by [employer]. It has not been cleared or approved by the [place] Food and Drug Administration. Observation Date Value Abnormality Reference (Units ) Status METHODOLOGY 12/19/2023 11:15:41 LC-MS/MS Final oxyCODONE cutoff [Mass/volume] in Urine for Confirmatory method 12/19/2023 11:15:41 1567 Above high normal Negative (ng/mL) Final oxyMORphone cutoff [Mass/volume] in Urine for Confirmatory method 12/19/2023 11:15:41 346 Above high normal Negative (ng/mL) Final Performing Location LABORATORY [facility] - [facility] [place] [address]
--- OUTSIDE RECORDS SUMMARY | 2024-03-26 23:20 | External Medical Summary | Summary of Care ---
Author Name Unknown Organization [facility] Address [address] [place] [address] Phone [phone] Care Team Providers Care Sole Filler Name Role Phone Deb Camara MD Primary Care Provider [phone] Reason for Visit * Reason Comments Dosage Adjustment In Person (Anticoag Cl inic) Hypertension Encounter Details Date Type Department Care Team (Late st Contact Info) Description 12/27/2023 11:00 AM EDT Office Visit Pharmacy, [place] [address] [place] [address] [facility] [address] [place] [address] HTN, goal below 130/80* Allergies Active Allergy Reactions Criticality Noted Date Comments Lisinopril 12/05/2023 dizziness Losartan 05/24/2023 Dizziness documented as of this encounter (statuses as of 12/27/2023) Medications Medication Sig Dispensed Refills Start Date End Date Status Blood Glucose Monitoring Suppl (ONETOUCH VERIO) w/Device KITIndications:DM type 2, not at goal ([facility]),Type 2 diabetes mellitus with hemoglobin A1c goal of less than 8.0% ([facility]) Use to check sugar daily E11.9 1 Kit 01/31/2019 Active ONETOUCH DELDIANE LANCETS FINE MISCIndications:DM type 2, not at goal ([facility]),Type 2 diabetes mellitus with hemoglobin A1c goal of less than 8.0% ([facility]) Use to test blood sugar once daily- dx E11.9 1 Each 5 01/31/2019 Active OneTouch Verio In Vitro Strip (Glucose Blood)Indications:DM type 2, not at goal ([facility]),Type 2 diabetes mellitus with hemoglobin A1c goal of less than 8.0% ([facility]) Use up check sugar daily E11.9 100 Strip 3 05/20/2023 Active Empagliflozin 10 MG Oral Tablet (Jardiance) Take 1 Tablet by mouth in the morning. Obtaining from [facility] PAP. Active traZODone HCl 100 MG [...] as of this encounter (statuses as of 12/27/2023) Active Problems Problem Noted Date Diagnosed Date [...] as of this encounter (statuses as of 12/27/2023) Resolved Problems Problem Noted Date Diagnosed Date [...] as of this encounter (statuses as of 12/27/2023) Immunizations Name Administration Dates Next Due COVID-19 [...] this encounter Progress Notes * Analilia Ceja, [facility] - 12/27/2023 11:11 AM EDT PHARMACY CHRONIC DISEASE MANAGEMENT - HYPERTENSION HPI: Delvis Munoz is a 73 year old year old male. Referred for HTN management by Dr. Kerri Garcia . Blood pressure goal: < 130/80 Previous medication use: lisinopril and losartan both tried-- caused dizziness all the time (not just positionally) Any contraindications to HTN medications: HR does run lower Current medications which can be elevating BP: none Caffeine use: Alcohol use: Tobacco use: History of sleep apnea: Medication compliance: Diet review: breakfast - tastycake + coffee (only one cup, sometimes less); 2 mandarin orange cups for snack; sandwich (egg salad or low sodium ham-- rarely eats); cooks primarily- all cooking without salt Exercise review: low/minimal The 10-year ASCVD risk score (Herb GUEVARA, et al., 2019) is: 46.2% Values used to calculate the score: Age: 73 years Sex: Male Is Non- : No Diabetic: Yes Tobacco smoker: No Systolic Blood Pressure: 132 mmHg Is BP treated: Yes HDL Cholesterol: 50 mg/dL Total Cholesterol: 153 mg/dL Does patient monitor BP at home? yes Home BP log results: SBP DBP Pulse 146 60 148 65 136 49 139 57 Average 142 58 #DIV/0! #DIV/0! Hi 148 65 0 0 Lo 136 49 0 0 Range 12 16 0 0 Does patient monitor HR at home? no Home HR log results: pt instructed to start monitoring HR Patient Active Problem List Diagnosis Other specified [...] (HCC) Stage 3b chronic kidney disease (HCC) Review of patient's allergies indicates: Allergen Reactions Lisinopril dizziness Losartan Dizziness Objective: BP Readings from Last 3 Encounters: 12/19/23 132/50 12/05/23 125/54 11/24/23 133/55 Pulse Readings from Last 3 Encounters: 12/19/23 65 12/05/23 56 11/24/23 60 Wt Readings from Last 3 Encounters: 12/19/23 90.3 kg (199 lb 1.6 oz) 12/05/23 91.2 kg (201 lb) 11/24/23 90.7 kg (200 lb) No results found for: "MICROALBUMIN" Current Hypertension Medication(s): Amlodipine 10 mg in AM Furosemide 40 mg in AM Metoprolol Succinate ER 25 mg in AM *Jardiance 10 mg once in AM Assessment & Plan: BP average above goal, although it is noted that patient only had 4 readings to review. He will start checking it daily until MTM calls in a week, and he will also record HR readings. We will start spironolactone 12.5 mg once daily -- pt to get blood work about 3- 5 days after starting this medication. He is aware to take it in the AM and stay well hydrated Medication changes: Amlodipine 10 mg in AM Furosemide 40 mg in AM Metoprolol Succinate ER 25 mg in AM *Jardiance 10 mg once in AM START Spironolactone 12.5 mg once daily in AM Labs Due: BMP in 3-5 days Follow up: 01/03/2024 via phone I spent a total of 20-29 minutes (exact time 28 mins) on the date of service in preparation, delivery, and documentation of the care provided to Delvis Munoz excluding any time spent in the performance of separately billed services or time spent by another provider/QHP. Analilia Ceja [facility] Clinical Pharmacist 11:11 AM, 12/27/23 documented in this encounter Plan of Treatment Upcoming Encounters Date Type Department Care Team (Late st Contact Info) Description 01/03/2024 11:00 AM EDT Telemedicine Pharmacy, [address] [address] [facility] [place] [address] 04/03/2024 10:00 AM EST Office Visit Cardiology, [facility] [address] [place] [address] Sandra Laura CRNP [address] [facility] [place] [address] 05/25/2024 1:00 PM EST Telemedicine [facility] CAM Abarca [address] [facility] [place] [address] Jackson Munoz MD [address] [facility] [place] [address] 07/31/2024 11:40 AM EDT Office Visit Nephrology, [facility] [address] [facility] [place] [address] Kerri Garcia MD [address] [facility] [place] [address] Scheduled Orders Name Type Priority Associated Diagnoses Orde r Schedule BASIC METABOLIC PANEL Lab Routine HTN, goal below 130/80 Expected: 01/03/2024 (Approximate), Expires: 12/26/2024 Scheduled Procedures Name Priority Associated Diagnoses Date/Ti in COLONOSCOPY FLEXIBLE PROXIMAL DIAGNOSTIC Recall History of [...] Additional history exists CKD PHOS USE SMARTSET 06440 10/08/202309/25, 08/17/2021, 03/06/2020, Additional history exists COVID-19 [...] 09/21/2024 09/22/2023, 024 CKD HGB USE SMARTSET 11629 10/24/202410/24, 10/25/2023, 06/20/2023, Additional history exists DTap/Tdap [...] this encounter Medical Devices Implanted Type Area Audiovisual Technician Device Identifier Shelf Expiration Date Model / Serial / Lot Lens 19.0 Cz70bd - [id number] - [id number] Implanted:Qty: 1 on 08/09/2016 by Madi Frederick MD at OR [facility] Right: Eye KIMMIE : SURGICAL 2018 [id number] 0 / [id number] / Hemostatic Clip Res 235cm - [id number] Implanted:Qty: 1 on 05/09/[address] MD at ENDOSCOPY [facility] N/A: Stomach [employer] : ENDOSCOPY 11/15/2025 [id number] / / documented as of this encounter Visit Diagnoses Diagnosis HTN, goal below 130/80- Primary Unspecified essential hypertension documented in this encounter Advance Directives * Full Code (Latest Code Status on File) Date Activated Date Inactivated Comments 08/09/2016 2:37 PM 08/09/2016 7:17 PM This order r eflects the patients wishes and were consensually agreed upon. Care Teams Sole Filler Relationship Specialty Start Date End Date Deb Camara MD [address] [place] [address] PCP - General Internal Medicine 10/07/23 documented as of this encounter
--- OUTSIDE RECORDS SUMMARY | 2024-03-26 23:20 | External Medical Summary | Summary of Care ---
Author Name Unknown Organization [facility] Address [address] [place] [address] Phone [phone] Care Team Providers Care Equal Opportunity Officer Name Role Phone Deb Camara MD Primary Care Provider [phone] Encounter Details Date Type Department Care Team (Late st Contact Info) Description 12/27/2023 Refill Pharmacy, [address] [address] Analilia Ceja, [facility] [address] [place] [address] Type 2 diabetes mellitus with hemoglobin A1c goal of less than 8.0% ([facility]); HTN, goal below 130/80; Stage 3b chronic kidney disease (HCC) Allergies Active Allergy Reactions Criticality Noted [...] hemoglobin A1c goal of less than 8.0% ([facility]) Use to test blood sugar once daily- dx E11.9 1 Each 5 01/31/2019 Active OneTouch Verio In Vitro Strip (Glucose Blood)Indications:DM type 2, not at goal ([facility]),Type 2 diabetes mellitus with hemoglobin A1c goal of less than 8.0% ([facility]) Use up check sugar daily E11.9 100 Strip 3 05/20/2023 Active Empagliflozin 10 MG Oral Tablet (Jardiance) Take 1 Tablet by mouth in the morning. Obtaining from [facility] PAP. Active traZODone HCl 100 [...] starting this medication.. 45 Tablet 12/27/2023 Active Abrysvo 120 MCG/0.5ML Intramuscular Solution Reconstituted (RSV Pre-Fusion F A&B Vac Rcmb)Indications:Typ e 2 diabetes mellitus with hemoglobin A1c goal of less than 8.0% (HCC),HTN, goal below 130/80,Stage 3b chronic kidney disease (HCC) Inject 0.5 mL into a large muscle once for 1 dose. 0.5 mL 12/27/2023 12/27/2023 Active documented as of this encounter [...] mRNA, LNP-s, No Pre serve, 2-Dose Series (Promon) 02/02/2021,06/14/2020,05/24/2020 COVID-19, LNP-s, No Preserve , Ellis-sucrose, [...] Telephone Encounter - Sabrina Glez MD - 12/27/2023 12:56 PM EDTSigned Prescriptions: Disp Refills Abrysvo 120 MCG/0.5ML Intramuscular Soluti*0.5 mL 0 Sig: Inject 0.5 mL into a large muscle once for 1 dose.Authorizing Provider: SABRINA GLEZ * Telephone Encounter - Analilia Ceja [facility] - 12/27/2023 11:33 AM EDT Pt seen today for HTN management and asked about RSV vaccine- he is requesting a script be sent to his pharmacy. He requested this to come from Dr. Glez. Please send if you are agreeable-- thanks!! Analilia Ceja, PharmD, BCACP Clinical Pharmacist Medication Therapy Disease Management 12/27/2023, 11:35 AM documented in this encounter Plan of Treatment Upcoming Encounters Date Type Department Care Team (Late st Contact Info) Description 01/03/2024 11:00 AM EDT Telemedicine Pharmacy, [address] [address] 04/03/2024 10:00 AM EST Office Visit Cardiology, [facility] [address] [place] [address] Sandra Larua CRNP [address] [place] [address] 05/25/2024 1:00 PM EST Telemedicine [facility] [place] [address] [facility] [place] [address] Jackson Munoz MD [address] [facility] [place] [address] 07/31/2024 11:40 AM EDT Office Visit Nephrology, [facility] [address] [place] [address] Kerri Garcia MD [address] [facility] [place] [address] Scheduled Procedures Name Priority Associated Diagnoses Date/Ti [...] Additional history exists CKD PHOS USE SMARTSET 21051 10/08/202309/25, 08/17/2021, 03/06/2020, Additional history exists COVID-19 [...] 09/21/2024 09/22/2023, 024 CKD HGB USE SMARTSET 01776 10/24/202410/24, 10/25/2023, 06/20/2023, Additional history exists DTap/Tdap [...] this encounter Medical Devices Implanted Type Area Syrup Machine Laborer Device Identifier Shelf Expiration Date Model / Serial / Lot Lens 19.0 Cz70bd - [id number] - [id number] Implanted:Qty: 1 on 08/09/2016 by Madi Frederick MD at OR [facility] Right: Eye KIMMIE : SURGICAL 2018 [id number] 0 / [id number] / Hemostatic Clip Res 235cm - [id number] Implanted:Qty: 1 on 05/09/[address] MD at ENDOSCOPY [facility] N/A: Stomach [employer] : ENDOSCOPY 11/15/2025 [id number] / / documented as of this encounter Visit Diagnoses Diagnosis Type 2 diabetes mellitus with hemoglobin A1c goal of less than 8.0% (HCC) HTN, goal below 130/80 Unspecified essential hypertension Stage 3b chronic kidney disease (HCC) documented in this encounter Advance Directives * Full Code (Latest Code Status on File) Date Activated Date Inactivated Comments 08/09/2016 2:37 PM 08/09/2016 7:17 PM This order r eflects the patients wishes and were consensually agreed upon. Care Teams Equal Opportunity Officer Relationship Specialty Start Date End Date Deb Camara MD [address] [facility] [place] [address] PCP - General Internal Medicine 10/07/23 documented as of this encounter
--- OUTSIDE RECORDS SUMMARY | 2024-03-26 23:20 | External Medical Summary ---
Author Name Unknown Address Unknown Organization K01:LAB[facility]ATORY [facility] - [facility] [address] [place] [address] Laboratory Report Ordering Provider Test Date Status LEI MARTINEZ 12/19/2023 11:15:41 Final Cutoff Concentrations:
Drug Level
Amphetamines 500 ng/mL
Benzodiazepines 100 ng/mL
Cannabinoids 50 ng/mL
Cocaine Metabolite 150 ng/mL
Fentanyl 1 ng/mL
Hydrocodone / Hydromorphone 300 ng/mL
Methadone Metabolite 100 ng/mL
Morphine / Codeine 300 ng/mL
Oxycodone / Oxymorphone 100 ng/mL

Screening results are presumptive and can only be used for medical purposes. Positive screening results are reflexed to confirmatory testing. Observation Date Value Abnormality Reference (Units ) Status Amphetamines, Urine screen 12/19/2023 11:15:41 Negative Negative Final Benzodiazepines, Urine screen 12/19/2023 11:15:41 Negative Negative Final Cannabinoids, Urine screen 12/19/2023 11:15:41 Negative Negative Final Cocaine Metabolite, Urine screen 12/19/2023 11:15:41 Negative Negative Final fentaNYL [Presence] in Urine by Screen method 12/19/2023 11:15:41 Negative Negative Final HYDROcodone [Presence] in Urine by Screen method 12/19/2023 11:15:41 Negative Negative Final 3-Zapjjnlkgu-8,5-Dimeth yl-3,3-Diphenylpyrrolid ine (EDDP) [Presence] in Urine 12/19/2023 11:15:41 Negative Negative Final Opiates, Urine screen 12/19/2023 11:15:41 Negative Negative Final oxyCODONE [Presence] in Urine by Screen method 12/19/2023 11:15:41 Positive Abnormal Negative Final Performing Location LABORATORY [facility] - [address] [facility] [address]
--- OUTSIDE RECORDS SUMMARY | 2024-03-26 23:20 | External Medical Summary | Summary of Care ---
Author Name Unknown Organization [facility] Address [address] [place] [address] Phone [phone] Care Team Providers Care Possum Trapper Name Role Phone Deb Camara MD Primary Care Provider Reason for Visit * Reason Comments Outpatient Testing Encounter Details Date Type Department Care Team (Late st Contact Info) Description 12/19/2023 11:40 AM EDT Laboratory Laboratory, [facility] [address] [place] [address] [facility] [address] [place] [address] Arrived Allergies Active Allergy Reactions Criticality Noted Date Comments Lisinopril 12/05/2023 dizziness Losartan 05/24/2023 Dizziness documented as of this encounter (statuses as of 12/19/2023) Medications Medication Sig Dispensed Refills Start Date End Date Status Blood Glucose Monitoring Suppl (ONETOUCH VERIO) w/Device KITIndications:DM type 2, not at goal ([facility]),Type 2 diabetes mellitus with hemoglobin A1c goal of less than 8.0% ([facility]) Use to check sugar daily E11.9 1 Kit 01/31/2019 Active ONETOUCH DELICA LANCETS FINE MISCIndications:DM type 2, not at goal ([facility]),Type 2 diabetes mellitus with hemoglobin A1c goal of less than 8.0% ([facility]) Use to test blood sugar once daily- dx E11.9 1 Each 5 01/31/2019 Active OneTouch Verio In Vitro Strip (Glucose Blood)Indications:DM type 2, not at goal ([facility]),Type 2 diabetes mellitus with hemoglobin A1c goal of less than 8.0% ([facility]) Use up check sugar daily E11.9 100 Strip 3 05/20/2023 Active Empagliflozin 10 MG Oral Tablet (Jardiance) Take 1 Tablet by mouth in the morning. Obtaining from [facility]. Active traZODone HCl 100 MG Oral [...] 12/27/2023 11:00 AM EDT Office Visit Pharmacy, [facility] [address] [place] [address] [place], [facility] [address] [place] [address] 04/03/2024 10:00 AM EST Office Visit Cardiology, [facility] [address] [place] [address] Sandra Laura CRNP [address] [facility] [place] [address] 05/25/2024 1:00 PM EST Telemedicine [facility] [address] [facility] [place] [address] Jackson Munoz MD [address] [facility] [place] [address] 07/31/2024 11:40 AM EDT Office Visit Nephrology, [facility] [address] [place] [address] Kerri Garcia MD [address] [facility] [place] [address] Scheduled Procedures Name Priority Associated Diagnoses Date/Ti [...] Additional history exists CKD PHOS USE SMARTSET 47963 10/08/202309/25, 08/17/2021, 03/06/2020, Additional history exists COVID-19 [...] 09/21/2024 09/22/2023, 024 CKD HGB USE SMARTSET 40172 10/24/202410/24, 10/25/2023, 06/20/2023, Additional history exists DTap/Tdap [...] this encounter Medical Devices Implanted Type Area Mobile Mechanic Device Identifier Shelf Expiration Date Model / Serial / Lot Lens 19.0 [id number] - [id number] - [id number] Implanted:Qty: 1 on 08/09/2016 by Madi Frederick MD at OR [facility] Right: Eye KIMMIE : SURGICAL 2018 [id number] / [id number] / Hemostatic Clip Res 235cm - [id number] Implanted:Qty: 1 on 05/09/[address] Davis MD at ENDOSCOPY [facility] N/A: Stomach [employer] : ENDOSCOPY 11/15/2025 [id number] / / documented as of this encounter Advance Directives * Full Code (Latest Code Status on File) Date Activated Date Inactivated Comments 08/09/2016 2:37 PM 08/09/2016 7:17 PM This order r eflects the patients wishes and were consensually agreed upon. Care Teams Possum Trapper Relationship Specialty Start Date End Date Deb Camara MD [address] [place] [address] PCP - General Internal Medicine 10/07/23 documented as of this encounter
--- OUTSIDE RECORDS SUMMARY | 2024-03-26 23:20 | External Medical Summary | Summary of Care ---
Author Name Unknown Organization [facility] Address [address] [place] [address] Phone [phone] Care Team Providers Care Corporate Quality Engineer Name Role Phone Deb Camara MD Primary Care Provider [phone] Reason for Visit * Reason Onset Date Comments Medication Refill 12/26/2023 Encounter Details Date Type Department Care Team (Late st Contact Info) Description 12/26/2023 Refill [facility] [address] [place] [address] Jerzy Glez MD [address] [place] [address] Persistent insomnia Allergies Active Allergy Reactions Criticality [...] dx E11.9 1 Each 5 01/31/2019 Active RussellZacsaúl Gundersonkevin In Vitro Strip (Glucose Blood)Indications:DM type [...] encounter Miscellaneous Notes * Telephone Encounter - Katherine Angel RPh - 12/27/2023 4:24 PM EDTRefused Prescriptions: Disp Refills traZODone HCl 100 MG Oral Tablet (Desyrel) 90 Tab*3 Sig: Take 1Tablet by mouth at bedtime.Refused By: SHUN ANGELeason for Refusal: Too soon documented in this encounter Plan of Treatment Upcoming Encounters Date Type Department Care Team (Late st Contact Info) Description 01/03/2024 11:00 AM EDT Telemedicine Pharmacy, [place] [address] [place] [address] [facility] [address] [place] [address] 04/03/2024 10:00 AM EST Office Visit Cardiology, [address] [place] [address] Sandra Laura CRNP [address] [place] [address] 05/25/2024 1:00 PM [facility] [place] [address] [facility] [place] [address] Jackson Munoz MD [address] [facility] [place] [address] 07/31/2024 11:40 AM EDT Office Visit Nephrology, [facility] [address] [facility] [place] [address] Kerri Garcia MD [address] [place] [address] Scheduled Procedures Name Priority Associated Diagnoses Date/Ti [...] Additional history exists CKD PHOS USE SMARTSET 05995 10/08/202309/25, 08/17/2021, 03/06/2020, Additional history exists COVID-19 [...] 09/21/2024 09/22/2023, 024 CKD HGB USE SMARTSET 57985 10/24/202410/24, 10/25/2023, 06/20/2023, Additional history exists DTap/Tdap [...] this encounter Medical Devices Implanted Type Area [employer] Team Member Device Identifier Shelf Expiration Date Model / Serial / Lot Lens 19.0 Cz70bd - [id number] - [id number] Implanted:Qty: 1 on 08/09/2016 by Madi Frederick MD at [facility] Right: Eye KIMMIE : SURGICAL 2018 [id number] / [id number] / Hemostatic Clip Res 235cm - [id number] Implanted:Qty: 1 on 05/09/[address] MD at ENDOSCOPY [facility] N/A: Stomach [employer] : ENDOSCOPY 11/15/2025 [id number] / / documented as of this encounter Visit Diagnoses Diagnosis Persistent insomnia Persistent disorder of initiating or maintaining sleep documented in this encounter Advance Directives * Full Code (Latest Code Status on File) Date Activated Date Inactivated Comments 08/09/2016 2:37 PM 08/09/2016 7:17 PM This order r eflects the patients wishes and were consensually agreed upon. Care Teams Corporate Quality Engineer Relationship Specialty Start Date End Date Deb Camara MD [address] [place] [address] PCP - General Internal Medicine 10/07/23 documented as of this encounter
[2024-03-26 23:29] LABS: Thyroid Stimulating Hormone 1.908 uIu/ml (0.300-4.500)
[2024-03-26] MEDS: ALBUT/IPRATROP 3MG/0.5MG NEB 3 ML VIAL NEB STA (23:31)
[2024-03-26] MEDS: oxyCODONE HCL IR 5 MG TAB (IMMEDIATE RELEASE) PO STA (23:31)
[2024-03-26] MEDS: ALBUMIN 25% 25 GM/100 ML VIAL IV ONE (23:32)
--- NOTE | 2024-03-26 23:43 | History & Physical Report ---
Date of Service March 26, 2024 Assessment & Plan (1) Dizziness: Plan: Suspect secondary to orthostasis after spironolactone added to regimen following nephrology visit from a few months ago Lowest SBP of 90s documented at the ER COVID-19 illness, autonomic dysfunction from DM and [id number] narcotics contributory chronic diastolic heart failure, some congestion on x-ray DM2 on oral medications, well-controlled as of recent hemoglobin A1c of 5.2 2023 CRI, creatinine at baseline chronic anemia, hemoglobin at baseline NAFLD cirrhosis, no overt decompensation prostate cancer status post surgery past tobacco abuse OBS Medical telemetry Hold home diuretics and amlodipine for now given borderline BP Continue low-dose beta-alicia IV albumin 1 dose now Supportive management for COVID-19 illness PT OT eval Basal bolus insulin, ISS BG goal 1 10-1 40, carb count coverage DVT prophylaxis. Heparin subcu Full code Patient requesting updates providers. Ms. Sinai Munoz, contact #[phone]. Text document was generated using [employer] voice recognition software. It may contain grammatical or spelling errors. Kindly contact undersigned for clarification of any documentation item in question. History of Present Illness Chief Complaint: Worsening dizziness, sore throat Primary Care Provider: Jerzy Glez MD History obtained from patient and records. Medical history significant for chronic diastolic heart failure (EF 60 %, TTE 2023), valvular heart disease (mild MR/TR), hypertension, ILD, history endocarditis, DM2 on oral medications, CRI (baseline creatinine 1.5), chronic anemia (baseline hemoglobin 11-13), NAFLD cirrhosis, prostate cancer, chronic back pain on narcotics, past tobacco abuse. Recent confinement January 2023 for complicated bronchitis. Patient seen at [facility] [place] office November 2023 for hypertension follow-up. Spironolactone added to patient's regimen due to uncontrolled blood pressure. The last couple of months, patient with episodic dizziness and fatigue symptoms. Dizziness mostly on standing up. Not spinning. Patient describes sensation coming from legs going to his head. Transient headache symptoms Unremarkable outpatient TTE. Unclear explanation for symptoms as per patient. Denies depression. Worsening symptoms the last few days. Sore throat symptoms without chest pain or junky cough. SOB mostly on exertion which is usual for him. Lowest SBP of 90s documented at the ER. Patient uncomfortable going home. 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 Allergies Allergy/AdvReac Type Severity Reaction Status Date / Time No Known Allergies Allergy Verified 03/26/24 22:47 Home Medications Medication Instructions Recorded Confirmed Type oxycodone 10 mg tablet 10 mg PO QID 01/02/22 03/26/24 History trazodone 100 mg tablet 100 mg PO HS 01/02/22 03/26/24 History metoprolol succinate 25 mg 12.5 mg PO QAM 01/15/23 03/26/24 History tablet,extended release 24 hr empagliflozin 10 mg tablet 10 mg PO QAM 01/31/23 03/26/24 History (Jardiance) furosemide 40 mg tablet 40 mg PO QAM 01/31/23 03/26/24 History amlodipine 10 mg tablet 10 mg PO QAM 03/26/24 03/26/24 History citalopram 20 mg tablet 20 mg PO QAM 03/26/24 03/26/24 History dapagliflozin propanediol 10 mg 10 mg PO QAM 03/26/24 03/26/24 History tablet (Farxiga) empagliflozin 10 mg tablet 10 mg PO QAM 03/26/24 03/26/24 History (Jardiance) spironolactone 25 mg tablet 12.5 mg PO QAM 03/26/24 03/26/24 History Past Med/Surg History Problem List (Updated 03/27/24 @ 00:49 by Black Dang MD) Dizziness (Acute) Generalized weakness (Acute) COVID-19 (Acute) Generalized weakness (Acute) Leukocytosis (Acute) Fever (Acute) Acute exacerbation of CHF (congestive heart failure) (Acute) Shortness of breath (Acute) Bilateral edema of lower extremity (Acute) Recent weight gain (Acute) Hypomagnesemia (Acute) Acute on chronic heart failure with preserved ejection fraction (HFpEF) Chest pressure (Acute) Acute exacerbation of CHF (congestive heart failure) (Acute) Multiple rib fractures (Acute) History of cholecystectomy Previous back surgery Rib pain (Acute 09/10/10) Subacute bacterial endocarditis (Acute 09/24/10) Medical History Anemia Cirrhosis H/O endocarditis DMII (diabetes mellitus, type 2) CKD (chronic kidney disease), stage III Hypertensive urgency Acute decompensated heart failure Opioid type dependence, unspecified Social History Smoking Status: Never smoker Tobacco Type: Cigarettes Cigarettes Per Day: 15; Second Hand Exposure: No; Do You Dip or Chew Tobacco: No; Hx Alcohol Use: No Hx Substance Use: No Preferred Language: Montserratian Communication Ability: Effective Bullet Maker Required: No Beliefs That Will Affect Care: None marital status: Current Living Situation: Spouse Other Information That Helps Us Care for You: No Feels Safe at Home: Yes Safety Concerns: Feels Safe At This Time Assistive Devices: Glasses Review of Systems Review of Systems: As per HPI, all other systems reviewed and negative Physical Exam Physical Exam: GENERAL: Comfortable, slightly anxious, pleasant, no respiratory distress SKIN: Pallor, warm HEENT: Pale palpebral conjunctivae, no ptosis, moist buccal mucosa NECK : Supple, no tenderness CHEST : Decreased breath sounds, no tenderness HEART : RRR, no obvious murmurs ABDOMEN: Some distention, nontender EXTREMITIES : Minimal LE swelling, no LE tenderness, no other conspicuous deformities noted NEUROLOGIC : Coherent, no facial asymmetry, gait and stance not assessed Results & Data Results & Data Vital Signs (Past 12 Hours) Vital Signs Temp Pulse Pulse Pulse Pulse Resp Resp 03/26/24 22:00 55 L 18 03/26/24 21:13 87 65 22 03/26/24 20:40 62 03/26/24 20:29 64 20 03/26/24 17:16 36.7 C 68 18 Resp BP BP Pulse Ox Pulse Ox Pulse Ox O2 Del Method 03/26/24 22:00 130/53 L 96 Room Air 03/26/24 21:13 16 92 96 Room Air 03/26/24 20:40 03/26/24 20:29 144/80 H 95 Room Air 03/26/24 17:16 110/61 96 Room Air Laboratory Results Laboratory Results WBC 11.29 K/ul (4.8-10.8) H 03/26/24 18:48 RBC 3.90 M/uL (4.70-6.10) L 03/26/24 18:48 Hgb 13.1 g/dl (14.0-18.0) L 03/26/24 18:48 Hct 38.7 % (42.0-52.0) L 03/26/24 18:48 MCV 99.2 fL (80.0-100.0) 03/26/24 18:48 MCH 33.6 pg (25.0-34.0) 03/26/24 18:48 MCHC 33.9 g/dL (32.0-36.0) 03/26/24 18:48 RDW Std Deviation 49.8 fL (36.4-46.3) H 03/26/24 18:48 RDW Coeff of Marjorie 13.6 % (11.5-14.5) 03/26/24 18:48 Plt Count 170 K/uL (130-400) 03/26/24 18:48 MPV 11.2 fL (9.4-12.4) 03/26/24 18:48 Immature Gran % (Auto) 0.4 % 03/26/24 18:48 Neut % (Auto) 66.7 % 03/26/24 18:48 Lymph % (Auto) 18.4 % 03/26/24 18:48 Mcminn % (Auto) 9.6 % 03/26/24 18:48 Eos % (Auto) 4.2 % 03/26/24 18:48 Baso % (Auto) 0.7 % 03/26/24 18:48 Neut # (Auto) 7.54 K/uL (1.40-6.50) H 03/26/24 18:48 Lymph # (Auto) 2.08 K/uL (1.20-3.40) 03/26/24 18:48 Mcminn # (Auto) 1.08 K/uL (0.11-0.59) H 03/26/24 18:48 Eos # (Auto) 0.47 K/uL (0.00-0.50) 03/26/24 18:48 Baso # (Auto) 0.08 K/uL (0.00-0.20) 03/26/24 18:48 Immature Gran # (Auto) 0.04 K/uL (0.01-0.20) 03/26/24 18:48 PT 11.3 Seconds (9.0-12.0) 03/26/24 18:48 INR 1.0 (0.9-1.1) 03/26/24 18:48 APTT 29 Seconds (21-31) 03/26/24 18:48 PTT Ratio 1.1 03/26/24 18:48 Sodium 135 mmol/L (136-145) L 03/26/24 18:48 Potassium 4.7 mmol/L (3.5-5.1) 03/26/24 18:48 Chloride 101 mmol/L (98-107) 03/26/24 18:48 Carbon Dioxide 30 mmol/L (21-32) 03/26/24 18:48 Anion Gap 4 (3-11) 03/26/24 18:48 BUN 29 mg/dl (6-23) H 03/26/24 18:48 Creatinine 1.54 mg/dl (0.6-1.4) H 03/26/24 18:48 Est Cr Clr Drug Dosing 42.8 ml/min 03/26/24 18:48 eGFR 46.75 03/26/24 18:48 BUN/Creatinine Ratio 18.8 (10-20) 03/26/24 18:48 Glucose 101 mg/dl (70-99(Fasting)) H 03/26/24 18:48 Calcium 8.5 mg/dl (8.6-10.3) L 03/26/24 18:48 Magnesium 2.1 mg/dl (1.7-2.4) 03/26/24 18:48 Total Bilirubin 1.2 mg/dl (0.2-1.0) H 03/26/24 18:48 AST 56 U/L (13-39) H 03/26/24 18:48 ALT 35 U/L (7-52) 03/26/24 18:48 Alkaline Phosphatase 244 U/L (34-104) H 03/26/24 18:48 Troponin I High Sens 7.3 pg/ml (0-20) 03/26/24 18:48 B-Natriuretic Peptide 201 pg/ml (0-100) H 03/26/24 18:48 Total Protein 8.2 gm/dl (6.0-8.3) 03/26/24 18:48 Albumin 3.3 gm/dl (3.4-5.0) L 03/26/24 18:48 Globulin 4.9 gm/dl (2.5-4.0) H 03/26/24 18:48 Albumin/Globulin Ratio 0.7 (0.9-2) L 03/26/24 18:48 TSH 1.908 uIu/ml (0.300-4.500) 03/26/24 18:48 Adenovirus (PCR) Not Detected (NotDetected) 03/26/24 19:27 B. pertussis DNA (PCR) Not Detected (NotDetected) 03/26/24 19:27 B.parapertussis DNA PCR Not Detected (NotDetected) 03/26/24 19:27 C. pneumoniae DNA (PCR) Not Detected (NotDetected) 03/26/24 19:27 Coronavirus OC43 (PCR) Not Detected (NotDetected) 03/26/24 19:27 Coronavirus HKU1 (PCR) Not Detected (NotDetected) 03/26/24 19:27 Coronavirus 229E (PCR) Not Detected (NotDetected) 03/26/24 19:27 SARS-CoV-2 (PCR) DETECTED (NotDetected) A 03/26/24 19:27 Coronavirus NL63 (PCR) Not Detected (NotDetected) 03/26/24 19:27 Human Metapneumovir PCR Not Detected (NotDetected) 03/26/24 19:27 Influenza Type A (PCR) Not Detected (NotDetected) 03/26/24 19:27 Influenza Type B (PCR) Not Detected (NotDetected) 03/26/24 19:27 M. pneumoniae (PCR) Not Detected (NotDetected) 03/26/24 19:27 Parainfluenza 1 (PCR) Not Detected (NotDetected) 03/26/24 19:27 Parainfluenza 2 (PCR) Not Detected (NotDetected) 03/26/24 19:27 Parainfluenza 3 (PCR) Not Detected (NotDetected) 03/26/24 19:27 Parainfluenza 4 (PCR) Not Detected (NotDetected) 03/26/24 19:27 RSV (PCR) Not Detected (NotDetected) 03/26/24 19:27 Entero/Rhino (PCR) Not Detected (NotDetected) 03/26/24 19:27 Group A Strep (PCR) NOT DETECTED (NotDetected) 03/26/24 19:27 Impressions Chest X-Ray 03/26/24 17:21 EXAM: Portable AP chest radiograph TECHNIQUE: AP portable radiograph of the chest was obtained. INDICATION: Shortness of breath Comparison: Chest radiograph and thoracic CT February 03, 2023 FINDINGS: LINES and TUBES: None CARDIOVASCULAR: Cardiac silhouette is enlarged in size. LUNGS/PLEURA: No focal consolidation identified. Peribronchial cuffing that may be seen with bronchiolitis. Mild pulmonary vascular congestion no significant pleural fluid. Pleural scarring with pleural calcified plaques. No discernible pneumothorax. OSSEOUS/OTHER: No displaced acute osseous process identified. Chronic right-sided rib fractures. Surgical clips over the right upper quadrant of the abdomen, presumably from prior cholecystectomy.. IMPRESSION: Congestive changes of the cardiovascular system. Peribronchial cuffing that may be seen with bronchiolitis. Pleural calcifications and thickening were better delineated in the prior CT examination Electronically signed by Karan Caal 03-26-2024 6:[address] 03/26/24 17:26 Clinical History: Dizziness Technique: Axial computed tomography images were obtained of the brain without intravenous contrast. Comparison is made to the prior CT dated 12/09/2023 Findings: There is unchanged cerebral atrophy, within expected limits for the patient's age. Areas of decreased attenuation are seen within the periventricular white matter, likely representing chronic small vessel ischemic disease. There is no definite sign of acute or old infarction. No intracranial hemorrhage is evident. No definite mass lesion is seen on this noncontrast examination. There is no midline shift or other form of herniation. No hydrocephalus is seen. No fracture is identified. The orbits and the visualized paranasal sinuses appear unremarkable. The mastoid air cells appear clear. Impression: 1. Cerebral atrophy and chronic small vessel ischemic disease 2. Otherwise unremarkable noncontrast CT of the brain Electronically signed by Alexander Noguera 03-26-2024 6:11 PM Diagnostic Findings EKG as per my interpretation :Rate 60, NSR, LAD, LAFB, LVH, no ischemia
[2024-03-27] MEDS ORDERED: GLUCOSE 40% GEL 15 GM TUBE PO PRN (01:38)
[2024-03-27] MEDS ORDERED: CARBOHYDRATES FOR HYPOGLYCEMIA PO PRN (01:38)
[2024-03-27] MEDS ORDERED: DEXTROSE 50% 50 ML SYRINGE IV PRN (01:38)
[2024-03-27] MEDS ORDERED: GLUCAGON FOR INJ 1 MG VIAL SQ PRN (01:38)
[2024-03-27] MEDS ORDERED: GLUCOSE 10 TAB/TUBE PO PRN (01:38)
[2024-03-27] MEDS: INSULIN ASPART PER UNIT CHARGE SC SCH (02:38)
[2024-03-27 05:19] LABS: Basophils # (auto) 0.05 K/uL (0.00-0.20); Basophils % (auto) 0.5 %; Eosinophils # (auto) 0.42 K/uL (0.00-0.50); Eosinophils % (auto) 4.5 %; Hematocrit (blood only) 32.9 % (42.0-52.0); Hemoglobin 11.3 g/dl (14.0-18.0); Immature Granulocytes # (auto) 0.01 K/uL (0.01-0.20); Immature Granulocytes % (auto) 0.1 %; Lymphocytes # (auto) 1.79 K/uL (1.20-3.40); Lymphocytes % (auto) 19.1 %; Mean Corpuscular Hemoglobin 34.1 pg (25.0-34.0); Mean Corpuscular Hgb Conc 34.3 g/dL (32.0-36.0); Mean Corpuscular Volume 99.4 fL (80.0-100.0); Mean Platelet Volume 11.6 fL (9.4-12.4); Monocytes # (auto) 0.96 K/uL (0.11-0.59); Monocytes % (auto) 10.3 %; Neutrophils # (auto) 6.12 K/uL (1.40-6.50); Neutrophils % (auto) 65.5 %; Platelet Count 138 K/uL (130-400); RDW Coefficient of Variation 13.5 % (11.5-14.5); RDW Standard Deviation 49.6 fL (36.4-46.3); Red Blood Count 3.31 M/uL (4.70-6.10); White Blood Count 9.35 K/ul (4.8-10.8)
[2024-03-27 05:32] LABS: BUN Creatinine Ratio 19.9 (10-20); Calcium 8.4 mg/dl (8.6-10.3); Creatinine Clr Calc Pharmacy 45.1 ml/min; Potassium 4.1 mmol/L (3.5-5.1)
[2024-03-27] MEDS: HEPARIN SOD 5,000 UNIT/0.5 ML VIAL SQ SCH (06:34)
[2024-03-27] MEDS: amLODIPine BESYLATE 5 MG TAB PO SCH (08:28)
[2024-03-27] MEDS: CITALOPRAM 20 MG TAB PO SCH (08:29)
[2024-03-27] MEDS: DOXYCYCLINE HYCLATE 100 MG CAP PO SCH (08:29)
[2024-03-27] MEDS: METOPROLOL SUCC 25MG EXT REL TAB PO SCH (08:31)
[2024-03-27] MEDS: oxyCODONE HCL IR 5 MG TAB (IMMEDIATE RELEASE) PO SCH (08:32)
--- NOTE | 2024-03-27 10:07 | Electrocardiogram Report ---
Test Reason : Blood Pressure : */* mmHG Vent. Rate : 62 BPM Atrial Rate : 62 BPM P-R Int : 184 ms QRS Dur : 94 ms QT Int : 430 ms P-R-T Axes : 3 -24 31 degrees QTcB Int : 436 ms Normal sinus rhythm Minimal voltage criteria for LVH, may be normal variant ( R in aVL ) Borderline ECG When compared with ECG of 31-Jan-2023 19:40, Criteria for Septal infarct are no longer Present Confirmed by Vitaliy Garcia ([id number]) on 03/27/2024 10:07:20 AM Referred By: Confirmed By: Vitaliy Garcia
--- NOTE | 2024-03-27 14:40 | Hospitalist Progress Note ---
Date of Service March 27, 2024 Assessment & Plan (1) Dizziness: Plan: COVID-19 infection Likely Viral bronchiolitis --CXR:Congestive changes of the cardiovascular system. Peribronchial cuffing that may be seen with bronchiolitis.Pleural calcifications and thickening were better delineated in the prior CT examination --BioFire positive for COVID-19 Saturating well on room air Empirically started on doxycycline Check procalcitonin, CRP Continue isolation precautions Dizziness Likely orthostasis Presented with hypotension --CT Head:Cerebral atrophy and chronic small vessel ischemic disease. Otherwise unremarkable noncontrast CT of the brain -- Orthostatics Continue home antihypertensives with holding parameters Monitor blood pressure Monitor for any arrhythmias Urinalysis currently pending DM II Last HbA1c 5 point Hold p.o. medications Continue insulin while hospitalized Monitor blood glucose levels CKD stage II Renal function at baseline Monitor Chronic diastolic heart failure some congestion on x-ray Clinically no significant volume overload Monitor volume status closely Resume home diuretics as able Chronic anemia Hb at baseline Monitor Other chronic conditions: NAFLD cirrhosis, no overt decompensation prostate cancer S/P surgery Past tobacco abuse Continue home medications as able DVT Px: Heparin SQ Code Status Full code Admission and Anticipated Discharge Date Admission Date: March 26, 2024 Subjective Patient is seen and examined at bedside Complains about sore throat Denies any cough, chest pain, dyspnea Saturating well on room air Reports dizziness better today No other complaints Family at bedside Review of Systems Review of Systems: All systems reviewed & are unremarkable except as noted in Subjective Physical Exam Physical Exam: Physical Exam: Vitals signs as noted above General Appearance:Moderately built and nourished, no apparent distress Head: normocephalic, Atraumatic Eyes: normal inspection, EOMI Neck: supple, Trachea midline Respiratory/Chest: Decreased breath sounds, CTA, No accessory muscle use Cardiovascular: S1, S2, + murmur Abdomen/GI:Soft, Non tender, Bowel sounds present Extremities/Musculoskeletal:normal inspection, no edema Neurologic/Psych:AAOX3, grossly no focal neurological deficits Skin: normal color, warm Results & Data Results & Data Vital Signs (Past 12 Hours) Vital Signs Pulse Pulse Resp BP BP Pulse Ox O2 Del Method 03/27/24 13:15 72 95 H 147/57 H 18 L Room Air 03/27/24 11:12 64 16 116/53 L 95 Room Air 03/27/24 10:00 68 19 123/56 L 95 Room Air 03/27/24 09:00 71 24 133/58 L 94 Room Air 03/27/24 08:24 142/58 H 98 Room Air 03/27/24 08:00 66 23 133/42 L 96 Room Air 03/27/24 07:30 68 23 121/47 L 95 Room Air 03/27/24 07:08 71 03/27/24 07:00 67 20 129/39 L 94 Room Air 03/27/24 06:33 125 H 20 119/45 L 90 03/27/24 06:00 68 19 128/38 L 95 03/27/24 05:36 66 21 125/44 L 95 03/27/24 04:57 64 18 135/57 L 96 03/27/24 04:33 70 22 132/57 L 97 03/27/24 04:00 67 16 108/59 L 96 03/27/24 03:09 62 16 137/59 L 94 Laboratory Results Short CBC 03/26/24 03/27/24 Range/Units 18:48 04:32 WBC 11.29 H 9.35 (4.8-10.8) K/ul Hgb 13.1 L 11.3 L (14.0-18.0) g/dl Hct 38.7 L 32.9 L (42.0-52.0) % Plt Count 170 138 (130-400) K/uL BMP 03/26/24 03/27/24 18:48 04:32 Sodium 135 L 136 Potassium 4.7 4.1 Chloride 101 103 Carbon Dioxide 30 28 BUN 29 H 29 H Creatinine 1.54 H 1.46 H Glucose 101 H 112 H Calcium 8.5 L 8.4 L Liver Function 03/26/24 Range/Units 18:48 Total Bilirubin 1.2 H (0.2-1.0) mg/dl AST 56 H (13-39) U/L ALT 35 (7-52) U/L Alkaline Phosphatase 244 H (34-104) U/L Albumin 3.3 L (3.4-5.0) gm/dl
[2024-03-27] MEDS: CHLORASEPTIC (PHENOL) 1.4% SOLN 180 ML BTL MT PRN (14:53)
[2024-03-27] MEDS: PROMETHAZINE 6.25 MG/50.25 ML BAG IV PRN (21:57)
[2024-03-27] MEDS: traZODone HCL 100 MG TAB PO SCH (21:57)
--- NOTE | 2024-03-28 08:43 | Hospitalist Progress Note ---
Date of Service March 28, 2024 Assessment & Plan (1) COVID-19: Plan: Clinically he is stable, does not have much respiratory symptoms, I do not see any benefit or indication for antibiotics so we will go ahead and discontinue that. I have reviewed his chest x-ray myself. There is no infiltrate or any suspicion of any underlying bacterial involvement. However I do believe the patient might benefit from a course of Decadron. (2) Dizziness: Plan: Etiology of this is multifactorial, I feel that this is probably predominantly because of underlying subclinical COVID-19 infection. Patient does have other precipitating factors such as chronic kidney disease as well as chronic liver disease which can predispose to autonomic neuropathy. For now we will just monitor from the safety standpoint, blood pressure stable. (3) Hypertension, essential: Plan: Blood pressure is controlled, continue with amlodipine 10 mg daily and Toprol-XL 12.5 mg daily. (4) Depression: Plan: Continue with home regimen of trazodone and citalopram. Plan Reevaluate tomorrow for possible discharge home. Patient was explained that he may have ongoing cough of varying degrees for another 1 to 2 weeks perhaps longer. Admission and Anticipated Discharge Date Admission Date: March 26, 2024 Subjective Patient is a 73-year-old very pleasant gentleman with history of chronic diastolic CHF, hypertension, interstitial lung disease, diabetes mellitus type 2, CKD stage III, NAFLD and chronic back pain who presented to the hospital with dizziness, patient was found to be also positive for COVID-19. Patient has been historically intolerant of Paxlovid, currently is not hypoxemic and does not have any indication for remdesivir. Patient was seen and examined, it seems that what he has is mild bronchitis, I offered if he is willing to go home and take treatment at home, he wanted to stay 1 more day and I agreed. Physical Exam Physical Exam: VITALS: Reviewed. WEIGHT/BMI reviewed. GEN: Healthy appearing, well-developed, NAD. PSYCH: Good Judgment. AOx3. Normal memory, mood, and affect. CV: RRR, no m/r/g. LUNGS: CTAB, no w/r/c. ABD: Soft, NT/ND, NBS, no masses or organomegaly. : N/A SKIN: Warm, well perfused. No skin rashes or abnormal lesions. Results & Data Results & Data Vital Signs (Past 12 Hours) Vital Signs Temp Pulse Pulse Resp BP Pulse Ox Pulse Ox 03/28/24 07:58 36.9 C 62 20 120/47 L 91 03/28/24 07:02 73 03/28/24 03:43 36.9 C 63 18 149/58 H 94 03/28/24 01:38 96 03/27/24 22:30 37.3 C 71 18 143/56 H 92 O2 Del Method O2 Del Method 03/28/24 07:58 Room Air 03/28/24 07:02 03/28/24 03:43 Room Air 03/28/24 01:38 Room Air 03/27/24 22:30 Room Air Laboratory Results Laboratory Results - last 24 hr 03/27/24 03/27/24 03/27/24 09:28 13:50 17:38 POC Glucose 93 123 H 87 03/27/24 03/28/24 19:36 08:23 POC Glucose 116 H 97 Medications Administered Current Inpatient Medications Acetaminophen (Acetaminophen 500 Mg Tab) 500 mg PO Q6H PRN PRN Reason: fever/pain Stop: 04/26/24 01:30 Amlodipine Besylate (Amlodipine Besylate 5 Mg Tab) 10 mg PO QAM [facility] Stop: 04/26/24 08:59 Last Admin: 03/27/24 08:28 Dose: 10 mg Citalopram Hydrobromide (Citalopram 20 Mg Tab) 20 mg PO QAM [facility] Stop: 04/26/24 08:59 Last Admin: 03/27/24 08:29 Dose: 20 mg Dextrose (Dextrose 50% 50 Ml Syringe) 25 - 50 ml IV UD PRN; Protocol PRN Reason: Hypoglycemia Protocol Stop: 04/26/24 01:37 Doxycycline Hyclate (Doxycycline Hyclate 100 Mg Cap) 100 mg PO BID [facility] Stop: 04/01/24 08:59 Last Admin: 03/27/24 21:01 Dose: 100 mg Glucagon (Glucagon For Inj 1 Mg Vial) 1 mg SQ UD PRN; Protocol PRN Reason: Hypoglycemia Protocol Stop: 04/26/24 01:37 Glucose (Glucose 40% Gel 15 Gm Tube) 15 - 30 gm PO UD PRN; Protocol PRN Reason: Hypoglycemia Protocol Stop: 04/26/24 01:37 Glucose (Glucose 10 Tab/Tube) 4 - 8 tab PO UD PRN; Protocol PRN Reason: Hypoglycemia Protocol Stop: 04/26/24 01:37 Heparin Sodium (Porcine) (Heparin Sod 5,000 Unit/0.5 Ml Vial) 5,000 units SQ Q8 [facility] Stop: 04/26/24 05:59 Last Admin: 03/28/24 06:11 Dose: 5,000 units Promethazine HCl (Phenergan) 6.25 mg in 50.25 mls @ 201 mls/hr IV Q6H PRN PRN Reason: Nausea And Vomiting Stop: 04/26/24 01:30 Last Infusion: 03/27/24 22:12 Dose: Infused Insulin Aspart (Insulin Aspart Per Unit Charge) 0 units SC ACHS [facility] Stop: 04/26/24 01:37 Last Admin: 03/27/24 19:36 Dose: Not Given Metoprolol Succinate (Metoprolol Succ 25mg Ext Rel Tab) 12.5 mg PO QAM [facility] Stop: 04/26/24 08:59 Last Admin: 03/27/24 08:31 Dose: 12.5 mg Miscellaneous (Carbohydrates For Hypoglycemia ) 15 - 30 gm PO UD PRN PRN Reason: Hypoglycemia Protocol Stop: 04/26/24 01:37 Oxycodone HCl (Oxycodone Hcl Ir 5 Mg Tab (Immediate Release)) 10 mg PO QID [facility] Stop: 04/10/24 08:59 Last Admin: 03/28/24 06:54 Dose: 10 mg Phenol (Chloraseptic (Phenol) 1.4% Soln 180 Ml Btl) 2 sprays MT Q4H PRN PRN Reason: Sore throat Stop: 04/26/24 12:28 Last Admin: 03/27/24 17:40 Dose: 2 sprays Trazodone HCl (Trazodone Hcl 100 Mg Tab) 100 mg PO HS [facility] Stop: 04/26/24 20:59 Last Admin: 03/27/24 21:57 Dose: 100 mg (4) Depression Depression Type: major depressive disorder Major depression recurrence: unspecified whether recurrent Active/Remission status: in remission of unspecified degree Qualified Code(s): F32.5 - Major depressive disorder, single episode, in full remission
[2024-03-28 08:48] LABS: Hematocrit (blood only) 35.3 % (42.0-52.0); Hemoglobin 12.4 g/dl (14.0-18.0); Mean Corpuscular Hemoglobin 34.3 pg (25.0-34.0); Mean Corpuscular Hgb Conc 35.1 g/dL (32.0-36.0); Mean Corpuscular Volume 97.5 fL (80.0-100.0); Mean Platelet Volume 11.6 fL (9.4-12.4); Platelet Count 146 K/uL (130-400); RDW Coefficient of Variation 13.6 % (11.5-14.5); Red Blood Count 3.62 M/uL (4.70-6.10); White Blood Count 9.59 K/ul (4.8-10.8)
[2024-03-28] MEDS: dexAMETHasone 4 MG TAB PO SCH (09:12)
[2024-03-28 09:15] LABS: Albumin Globulin Ratio 0.7 (0.9-2); Albumin Level 3.1 gm/dl (3.4-5.0); BUN Creatinine Ratio 19.6 (10-20); Bilirubin,Total 1.5 mg/dl (0.2-1.0); C Reactive Protein 2.98 mg/dl (0-0.5); Calcium 8.5 mg/dl (8.6-10.3); Creatinine Clr Calc Pharmacy 47.8 ml/min; Globulin 4.3 gm/dl (2.5-4.0); Magnesium 1.9 mg/dl (1.7-2.4); Potassium 4.7 mmol/L (3.5-5.1); Total Protein 7.4 gm/dl (6.0-8.3)
[2024-03-28] MEDS: ACETAMINOPHEN 500 MG TAB PO PRN (09:19)
[2024-03-28 10:33] LABS: Appearance Urine Clear (Clear); Bacteria Urine Automated None Seen (None Seen); Bilirubin Urine Negative (Negative); Blood Urine Negative (Negative); Cast Urine Automated 0-2 /lpf (0-2); Color Urine Yellow; Epithelial Cell Urine Auto 0-2 /hpf (0-2); Glucose Urine UA Trace (Negative); Ketones Urine Negative (Negative); Leukocyte Esterase Urine Negative (Negative); Nitrite Urine Negative (Negative); Protein Urine 1+ (Negative); RBC Urine Automated 0-2 /hpf (0-2); Specific Gravity Urine 1.015 (1.000-1.030); Urobilinogen Urine Positive (Negative); WBC Urine Automated 0-5 /hpf (0-5)
[2024-03-28 23:39] VITALS: RESP 18
--- NOTE | 2024-03-28 23:52 | Communication Note ---
Date of Service: March 28, 2024 Made aware by RN of abnormal orthostatic vitals. SBP down to 70s on standing up as per RN. Patient symptomatic. AP Dizziness Positive orthostatic vitals Hold amlodipine Rx (Medication not given today due to parameters.) May benefit from midodrine if with recurrent orthostasis
[2024-03-29] MEDS: ALBUMIN 25% 25 GM/100 ML VIAL IV ONE (00:31)
[2024-03-29 08:08] VITALS: TEMP 98.2; O2SAT 96
--- NOTE | 2024-03-29 09:14 | Discharge Summary ---
Discharge Summary Date of Service March 29, 2024 Principal Dx & Hospital Course #1 = Principal Diagnosis (1) COVID-19: (2) Dizziness: (3) Hypertension, essential: (4) Depression: Notes For Next Care Provider Medication Changes From Visit Decadron 6 mg daily for 7 days Mucinex DM 1 tablet twice daily for 7 days Admission HPI Per Admitting Provider Patient is a 73-year-old very pleasant gentleman with history of chronic diastolic CHF, hypertension, interstitial lung disease, diabetes mellitus type 2, CKD stage III, NAFLD and chronic back pain who presented to the hospital with dizziness, patient was found to be also positive for COVID-19. Patient has been historically intolerant of Paxlovid, currently is not hypoxemic and does not have any indication for remdesivir. Patient was managed with Decadron only and did well, seen and examined today, he remained otherwise stable with no respiratory issues whatsoever at all, no report overnight, will proceed with discharging him home, I would plan to continue with Decadron 6 mg daily for 7 more days and Mucinex for cough. Patient need to self isolate for another 7 days Discharge Exam VITALS: Reviewed. CV: RRR, no m/r/g. LUNGS: CTAB, no w/r/c. ABD: Soft, NT/ND, NBS, no masses or organomegaly. SKIN: Warm, well perfused. No skin rashes or abnormal lesions. Updated Medication List Medication Instructions Recorded Confirmed Type oxycodone 10 mg tablet 10 mg PO QID 01/02/22 03/26/24 History trazodone 100 mg tablet 100 mg PO HS 01/02/22 03/26/24 History metoprolol succinate 25 mg 12.5 mg PO QAM 01/15/23 03/26/24 History tablet,extended release 24 hr empagliflozin 10 mg tablet 10 mg PO QAM 01/31/23 03/26/24 History (Jardiance) furosemide 40 mg tablet 40 mg PO QAM 01/31/23 03/26/24 History amlodipine 10 mg tablet 10 mg PO QAM 03/26/24 03/26/24 History citalopram 20 mg tablet 20 mg PO QAM 03/26/24 03/26/24 History dapagliflozin propanediol 10 mg 10 mg PO QAM 03/26/24 03/26/24 History tablet (Farxiga) empagliflozin 10 mg tablet 10 mg PO QAM 03/26/24 03/26/24 History (Jardiance) spironolactone 25 mg tablet 12.5 mg PO QAM 03/26/24 03/26/24 History dexamethasone 6 mg tablet 6 mg PO DAILY #7 tabs 03/29/24 Rx dextromethorphan-guaifenesin 30 1 tab PO BID PRN cough #14 tabs 03/29/24 Rx mg-600 mg tablet extended [id number] hr (Mucinex DM) Hospital Stay Data Consultations 03/26/24 22:31 ED Decision to Admit Stat Diagnostic Imagining Performed 03/26/24 17:26 CT head/brain wo con Stat Pending Results Patient Have Any Pending Studies at Discharge: No Discharge Instructions Given to Patient (Per Discharging Provider) No additional recommendation, patient needs to self isolate for another week, u ntil 04/06/2024 Total Time Total Time Spent Total Time Spent (In Minutes): Less than 35-minute
[2024-03-29] MEDS: amLODIPine BESYLATE 5 MG TAB PO SCH (09:26)
[2024-03-29 11:11] VITALS: BP 143/66; PULSE 66
== END 2024-03-29 13:22 | disposition home or self-care (01) | DRG 178 ==
LOC: EDINP 17:08 → ED 17:08 → SUATTDRO 23:44 → 2N 03-27 01:39

== ENCOUNTER 2024-04-07 18:21 | Inpatient (IN) ==
[2024-04-07 18:59] LABS: Basophils # (auto) 0.04 K/uL (0.00-0.20); Basophils % (auto) 0.2 %; Eosinophils # (auto) 0.37 K/uL (0.00-0.50); Eosinophils % (auto) 1.9 %; Hemoglobin 13.8 g/dl (14.0-18.0); Immature Granulocytes # (auto) 0.16 K/uL (0.01-0.20); Immature Granulocytes % (auto) 0.8 %; Lymphocytes # (auto) 2.61 K/uL (1.20-3.40); Lymphocytes % (auto) 13.2 %; Mean Corpuscular Hgb Conc 34.5 g/dL (32.0-36.0); Mean Corpuscular Volume 98.5 fL (80.0-100.0); Mean Platelet Volume 11.1 fL (9.4-12.4); Monocytes # (auto) 2.17 K/uL (0.11-0.59); Neutrophils # (auto) 14.46 K/uL (1.40-6.50); Neutrophils % (auto) 72.9 %; Platelet Count 160 K/uL (130-400); RDW Standard Deviation 51.2 fL (36.4-46.3); Red Blood Count 4.06 M/uL (4.70-6.10); White Blood Count 19.81 K/ul (4.8-10.8)
[2024-04-07 19:15] LABS: Albumin Globulin Ratio 0.8 (0.9-2); BUN Creatinine Ratio 26.2 (10-20); Bilirubin,Total 2.4 mg/dl (0.2-1.0); Calcium 8.2 mg/dl (8.6-10.3); Globulin 3.9 gm/dl (2.5-4.0); Potassium 4.8 mmol/L (3.5-5.1); Total Protein 6.9 gm/dl (6.0-8.3)
[2024-04-07 19:22] LABS: Troponin I High Sensitivity 10.5 pg/ml (0-20)
[2024-04-07 19:31] LABS: Thyroid Stimulating Hormone 1.483 uIu/ml (0.300-4.500)
[2024-04-07 19:32] LABS: INR 1.1 (0.9-1.1); Partial Thromboplastin Time 28 Seconds (21-31); Prothrombin Time 11.9 Seconds (9.0-12.0)
[2024-04-07] MEDS: SODIUM CHLORIDE 0.9% 500 ML IV ONE (20:03)
[2024-04-07] MEDS: ACETAMINOPHEN 1,000 MG/100 ML VIAL IV STA (20:07)
--- NOTE | 2024-04-07 20:11 | Emergency Department Note ---
Impression & Plan Dizziness, Dehydration, Leukocytosis, JUWAN (acute kidney injury) ED Provider Note ED Provider Note NAME: THAI MEJIA AGE:73 SEX: Male : 1950 ARRIVES VIA: Private vehicle INFORMANT: Patient ED PROVIDER(s): Millie Paez DO CHIEF COMPLAINT: Dizziness HPI: This is a 73-year-old male brought in by family due to concern for persistent dizziness. Patient with a history of dizziness with position change that was thought to be related to orthostatic hypotension. Family states that has been going on for several years. They state it was worse recently and he was admitted to the hospital and found to have COVID and it was thought that this had exacerbated it. While here they did decrease his blood pressure medications and then stopped 2 of them at time of discharge. He states since going home he has not improved, and they state yesterday and today seemed worse. Family states he is also not been staying hydrated. He denies chest pain, shortness of breath, abdominal pain, vomiting or diarrhea. He states he has had a headache since his last admission additionally. PAST MEDICAL HISTORY:See Below PAST SURGICAL HISTORY:See Below FAMILY HISTORY:See Below SOCIAL HISTORY:See Below HOME MEDICATIONS:See Below ALLERGIES:See Below VITALS:See Below PHYSICAL EXAMINATION: GENERAL: alert, well appearing, well nourished, no distress, non-toxic EYE EXAM: normal conjunctiva, PERRL and EOM's grossly intact OROPHARYNX: no exudate, no erythema, lips, buccal mucosa, and tongue normal and mucous membranes are dry NECK: supple, no nuchal rigidity, no adenopathy, non-tender LUNGS: Clear to auscultation. Normal chest wall mechanics, no w/r/r HEART: no murmurs, S1 normal and S2 normal ABDOMEN: abdomen soft, non-tender, normo-active bowel sounds, no masses, no rebound or guarding. BACK: Back is symmetrical on inspection and there is no deformity, no midline tenderness, no CVA tenderness. SKIN: no rashes, petechiae, orbruising UPPER EXTREMITIES: upper extremities are grossly normal. FROM, nml pulses b/l. LOWER EXTREMITIES: No pitting edema. FROM, nml pulses b/l. NEURO EXAM: Normal sensorium, cranial nerves II-XII grossly intact, normal speech, no facial droop,nogross weakness of arms, no gross weakness of legs. Gross sensation intact. No ataxia. Vital Signs: reviewed and remarkable Differential Diagnosis: benign positional vertigo, dehydration, hypovolemia, anemia, tumor, hypoglycemia, electrolyte abnormalities, ICH, CVA, dysrhythmia, as well as others were entertained. MEDICAL DECISION MAKING: This is a 73-year-old male presents emerged department with family bedside due to concern for ongoing weakness, dehydration, and dizziness. Patient with recent hospitalization with similar symptoms and found to be COVID-positive. He was afebrile and hemodynamically stable on arrival. He had no dizziness as long as he was at rest. He admits to weakness and fatigue. Labs drawn and sent, IV established, EKG and chest ray performed at bedside interpreted by me and patient monitored on telemetry. He was sent for CT head additionally as a precaution due to the dizziness, this was reassuring. Labs showed a new leukocytosis compared to prior however patient was discharged on dexamethasone from his last admission and just finished that course within the last 24 to 48 hours. Patient's LFTs noted to be elevated compared to prior, I suspect this is more likely from dehydration as patient has not had any accompanying abdominal pain or vomiting. Patient was given IV fluids here as he appeared clinically dehydrated and there was an elevated creatinine compared to prior as well as mild hyponatremia. Patient then began to also complain of pain with deep inspiration along bilateral ribs so he was sent for CT angiography of the chest. This was negative for PE. I discussed all results with the patient and family at bedside. Due to concern for ongoing symptoms and overall decline since his last admission, clinical appearance of dehydration along with other lab abnormalities and persistent orthostatic symptoms most notably his dizziness, we discussed additional inpatient evaluation and treatment. Case discussed with the hospitalist team for additional evaluation and management. Consultation(s): 0040: Discussed with Dr. Craven, [facility] hospitalist team, for additional evaluation and management. ER Treatment Provided: See below Diagnostics Interpreted By Me: -ECG: Sinus bradycardia at 56, normal axis, normal intervals, no acute ST/T wave changes -Cardiac Monitoring: An order was placed for continuous cardiac monitoring. The monitor shows a rate of 58 with sinus bradycardia rhythm. -Laboratory studies: As stated above and show below. -Imaging studies: X-ray Chest: A single view study of the chest was reviewed and was negative for cardiomegaly, focal infiltrate, effusion, pulmonary edema, or wide mediastinum. Triage Nursing Note Reviewed Prior/Outside Records Reviewed - reviewed DC from 03/29/2024 Past Med/Surg History Problem List (Updated 04/08/24 @ 23:54 by Millie Paez DO) JUWAN (acute kidney injury) (Acute) Leukocytosis (Acute) Cirrhosis Dehydration (Acute) Dizziness (Acute) COVID-19 Depression Hypertension, essential Dizziness (Acute) Generalized weakness (Acute) COVID-19 (Acute) Generalized weakness (Acute) Leukocytosis (Acute) Fever (Acute) Acute exacerbation of CHF (congestive heart failure) (Acute) Shortness of breath (Acute) Bilateral edema of lower extremity (Acute) Recent weight gain (Acute) Hypomagnesemia (Acute) Acute on chronic heart failure with preserved ejection fraction (HFpEF) Chest pressure (Acute) Acute exacerbation of CHF (congestive heart failure) (Acute) Multiple rib fractures (Acute) History of cholecystectomy Previous back surgery Rib pain (Acute 09/10/10) Subacute bacterial endocarditis (Acute 09/24/10) Medical History Anemia Cirrhosis H/O endocarditis DMII (diabetes mellitus, type 2) CKD (chronic kidney disease), stage III Hypertensive urgency Acute decompensated heart failure Opioid type dependence, unspecified Social History Smoking Status: Former smoker Tobacco Type: Cigarettes Cigarettes Per Day: 15; Second Hand Exposure: No; Do You Dip or Chew Tobacco: No; Hx Alcohol Use: No Hx Substance Use: No Preferred Language: [place] Communication Ability: Effective Production Generalist Required: No Beliefs That Will Affect Care: None marital status: Current Living Situation: Alone Feels Safe at Home: Yes Assistive Devices: None Allergies Allergies Allergy/AdvReac Type Severity Reaction Status Date / Time No Known Allergies Allergy Verified 03/26/24 22:47 Home Meds Home Medications Medication Instructions Recorded Confirmed oxycodone 10 mg tablet 10 mg PO QID 01/02/22 04/08/24 trazodone 100 mg tablet 100 mg PO HS 01/02/22 04/08/24 metoprolol succinate 25 mg 12.5 mg PO QAM 01/15/23 04/08/24 tablet,extended release 24 hr citalopram 20 mg tablet 20 mg PO QAM 03/26/24 04/08/24 furosemide 40 mg tablet 40 mg PO UD 04/08/24 04/08/24 Previous Rx's Medication Instructions Recorded dextromethorphan-guaifenesin 30 1 tab PO BID PRN cough #14 tabs 03/29/24 mg-600 mg tablet extended hr (Mucinex DM) Results & Data (ED) Vital Signs Vital Signs - 24 hr 04/07/24 18:24 04/07/24 18:59 04/07/24 19:01 Temperature 36.8 C Temperature Source Skin Pulse Rate 62 59 L Pulse Rate [Left Apical] 59 L Pulse Rate from SpO2 Sensor Respiratory Rate 20 21 Respiratory Effort / Characteristics Non-Labored Spontaneous Non-Labored Spontaneous Respiratory Depth Normal Normal Respiratory Pattern Regular Regular Blood Pressure 113/54 L Blood Pressure [Right Arm] 151/56 H Blood Pressure Mean 73 Blood Pressure Mean [Right Arm] 87 Pulse Oximetry 95 94 Oxygen Delivery Method Room Air Room Air Sepsis Recent Fever Within 48 Hours No Sepsis New/Unexplained Change in Mental Status N/A Sepsis Action Taken by Nursing No Action Required 04/07/24 19:09 04/07/24 19:21 04/07/24 19:30 Temperature Temperature Source Pulse Rate 59 L 59 L 59 L Pulse Rate [Left Apical] Pulse Rate from SpO2 Sensor Respiratory Rate 23 24 24 Respiratory Effort / Characteristics Respiratory Depth Respiratory Pattern Blood Pressure Blood Pressure [Right Arm] Blood Pressure Mean Blood Pressure Mean [Right Arm] Pulse Oximetry 96 96 96 Oxygen Delivery Method Room Air Room Air Room Air Sepsis Recent Fever Within 48 Hours Sepsis New/Unexplained Change in Mental Status Sepsis Action Taken by Nursing 04/07/24 19:32 04/07/24 19:33 04/07/24 20:00 Temperature Temperature Source Pulse Rate 58 L Pulse Rate [Left Apical] Pulse Rate from SpO2 Sensor Respiratory Rate 22 Respiratory Effort / Characteristics Respiratory Depth Respiratory Pattern Blood Pressure 158/60 H 142/56 H Blood Pressure [Right Arm] Blood Pressure Mean 113 80 Blood Pressure Mean [Right Arm] Pulse Oximetry 95 Oxygen Delivery Method Room Air Sepsis Recent Fever Within 48 Hours Sepsis New/Unexplained Change in Mental Status Sepsis Action Taken by Nursing 04/07/24 20:06 04/07/24 20:12 04/07/24 20:32 Temperature Temperature Source Pulse Rate 57 L 58 L Pulse Rate [Left Apical] Pulse Rate from SpO2 Sensor Respiratory Rate 18 23 Respiratory Effort / Characteristics Respiratory Depth Respiratory Pattern Blood Pressure 148/49 H Blood Pressure [Right Arm] Blood Pressure Mean 83 Blood Pressure Mean [Right Arm] Pulse Oximetry 96 96 Oxygen Delivery Method Room Air Room Air Sepsis Recent Fever Within 48 Hours Sepsis New/Unexplained Change in Mental Status Sepsis Action Taken by Nursing 04/07/24 20:42 04/07/24 20:57 04/07/24 21:00 Temperature Temperature Source Pulse Rate 56 L 55 L Pulse Rate [Left Apical] Pulse Rate from SpO2 Sensor Respiratory Rate 21 22 Respiratory Effort / Characteristics Respiratory Depth Respiratory Pattern Blood Pressure 136/57 L Blood Pressure [Right Arm] Blood Pressure Mean 83 Blood Pressure Mean [Right Arm] Pulse Oximetry 96 95 Oxygen Delivery Method Room Air Room Air Room Air Sepsis Recent Fever Within 48 Hours Sepsis New/Unexplained Change in Mental Status Sepsis Action Taken by Nursing 04/07/24 21:15 04/07/24 21:45 04/07/24 21:51 Temperature Temperature Source Pulse Rate 54 L 53 L 51 L Pulse Rate [Left Apical] Pulse Rate from SpO2 Sensor Respiratory Rate 21 21 16 Respiratory Effort / Characteristics Respiratory Depth Respiratory Pattern Blood Pressure Blood Pressure [Right Arm] Blood Pressure Mean Blood Pressure Mean [Right Arm] Pulse Oximetry 94 94 94 Oxygen Delivery Method Room Air Room Air Room Air Sepsis Recent Fever Within 48 Hours Sepsis New/Unexplained Change in Mental Status Sepsis Action Taken by Nursing 04/07/24 22:00 04/07/24 22:12 04/07/24 22:42 Temperature Temperature Source Pulse Rate 54 L 53 L 60 Pulse Rate [Left Apical] Pulse Rate from SpO2 Sensor Respiratory Rate 17 18 20 Respiratory Effort / Characteristics Respiratory Depth Respiratory Pattern Blood Pressure Blood Pressure [Right Arm] Blood Pressure Mean Blood Pressure Mean [Right Arm] Pulse Oximetry 94 94 94 Oxygen Delivery Method Room Air Room Air Room Air Sepsis Recent Fever Within 48 Hours Sepsis New/Unexplained Change in Mental Status Sepsis Action Taken by Nursing 04/07/24 23:00 04/07/24 23:00 04/07/24 23:30 Temperature Temperature Source Pulse Rate 54 L 53 L 53 L Pulse Rate [Left Apical] Pulse Rate from SpO2 Sensor 52 L 53 L Respiratory Rate 16 17 Respiratory Effort / Characteristics Respiratory Depth Respiratory Pattern Blood Pressure 137/52 L 133/55 L Blood Pressure [Right Arm] Blood Pressure Mean 80 81 Blood Pressure Mean [Right Arm] Pulse Oximetry 94 93 Oxygen Delivery Method Sepsis Recent Fever Within 48 Hours Sepsis New/Unexplained Change in Mental Status Sepsis Action Taken by Nursing Laboratory Data 04/08/24 01:50 04/08/24 01:50 Lab Results 04/07/24 Range/Units 18:42 WBC 19.81 H (4.8-10.8) K/ul RBC 4.06 L (4.70-6.10) M/uL Hgb 13.8 L (14.0-18.0) g/dl Hct 40.0 L (42.0-52.0) % MCV 98.5 (80.0-100.0) fL MCH 34.0 (25.0-34.0) pg MCHC 34.5 (32.0-36.0) g/dL RDW Std Deviation 51.2 H (36.4-46.3) fL RDW Coeff of Marjorie 14.0 (11.5-14.5) % Plt Count 160 (130-400) K/uL MPV 11.1 (9.4-12.4) fL Immature Gran % (Auto) 0.8 % Neut % (Auto) 72.9 % Lymph % (Auto) 13.2 % Duchesne % (Auto) 11.0 % Eos % (Auto) 1.9 % Baso % (Auto) 0.2 % Neut # (Auto) 14.46 H (1.40-6.50) K/uL Lymph # (Auto) 2.61 (1.20-3.40) K/uL Duc[place]ne # (Auto) 2.17 H (0.11-0.59) K/uL Eos # (Auto) 0.37 (0.00-0.50) K/uL Baso # (Auto) 0.04 (0.00-0.20) K/uL Immature Gran # (Auto) 0.16 (0.01-0.20) K/uL PT 11.9 (9.0-12.0) Seconds INR 1.1 (0.9-1.1) APTT 28 (21-31) Seconds PTT Ratio 1.0 Sodium 133 L (136-145) mmol/L Potassium 4.8 (3.5-5.1) mmol/L Chloride 99 (98-107) mmol/L Carbon Dioxide 31 (21-32) mmol/L Anion Gap 3 (3-11) BUN 45 H (6-23) mg/dl Creatinine 1.72 H (0.6-1.4) mg/dl Est Cr Clr Drug Dosing 42.0 ml/min eGFR 40.94 BUN/Creatinine Ratio 26.2 H (10-20) Glucose 187 H (70-99(Fasting)) mg/dl Calcium 8.2 L (8.6-10.3) mg/dl Magnesium 2.0 (1.7-2.4) mg/dl Total Bilirubin 2.4 H (0.2-1.0) mg/dl AST 91 H (13-39) U/L ALT 113 H (7-52) U/L Alkaline Phosphatase 202 H (34-104) U/L Troponin I High Sens 10.5 (0-20) pg/ml Total Protein 6.9 (6.0-8.3) gm/dl Albumin 3.0 L (3.4-5.0) gm/dl Globulin 3.9 (2.5-4.0) gm/dl Albumin/Globulin Ratio 0.8 L (0.9-2) Lipase 49 (11-82) U/L Procalcitonin 0.53 H (0-0.5) ng/ml TSH 1.483 (0.300-4.500) uIu/ml Administered Medications Acetaminophen (Acetaminophen 500 Mg Tab) 500 mg PO Q6H PRN PRN Reason: fever/pain Stop: 05/08/24 01:22 Last Admin: 04/08/24 15:48 Dose: 500 mg Documented By: Admin: 04/08/24 07:29 Dose: 500 mg Documented By: SONIA Gadobutrol (Gadobutrol 65ml Vial) 9 ml IV ONCE ONE Stop: 04/08/24 23:45 Last Admin: 04/08/24 23:44 Dose: 9 ml Documented By: CARLOS Piperacillin Sod/Tazobactam Sod (Zosyn) 4.5 gm in 100 mls @ 25 mls/hr IV Q8H [facility]; Protocol Stop: 04/10/24 09:59 Last Infusion: 04/08/24 22:04 Dose: Infused Documented By: Admin: 04/08/24 18:23 Dose: 25 mls/hr Documented By: Infusion: 04/08/24 16:15 Dose: Infused Documented By: Admin: 04/08/24 12:15 Dose: 25 mls/hr Documented By: SONIA Insulin Aspart (Insulin Aspart Per Unit Charge) 0 units SC ACHS KARLO Stop: 05/08/24 20:59 Last Admin: 04/08/24 20:57 Dose: Not Given Documented By: CHITRA Oxycodone HCl (Oxycodone Hcl Ir 5 Mg Tab (Immediate Release)) 10 mg PO QID KARLO Stop: 04/22/24 08:59 Last Admin: 04/08/24 20:57 Dose: 10 mg Documented By: Admin: 04/08/24 17:24 Dose: 10 mg Documented By: Admin: 04/08/24 13:04 Dose: 10 mg Documented By: Admin: 04/08/24 09:14 Dose: 10 mg Documented By: SONIA Trazodone HCl (Trazodone Hcl 100 Mg Tab) 100 mg PO HS KARLO Stop: 05/08/24 20:59 Last Admin: 04/08/24 20:57 Dose: 100 mg Documented By: CHITRA Discontinued Medications Sodium Chloride (Nss) 500 mls @ 999 mls/hr IV .Q31M ONE Stop: 04/07/24 20:02 Last Infusion: 04/07/24 20:52 Dose: Infused Documented By: Admin: 04/07/24 20:03 Dose: 999 mls/hr Documented By: MIKE Acetaminophen (Ofirmev) 1,000 mg in 100 mls @ 400 mls/hr IV NOW STA Stop: 04/07/24 20:15 Last Infusion: 04/07/24 20:10 Dose: Infused Documented By: Admin: 04/07/24 20:07 Dose: 400 mls/hr Documented By: IZA Sodium Chloride (Nss) 1,000 mls @ 125 mls/hr IV .Q8H KARLO Stop: 04/08/24 20:14 Last Infusion: 04/08/24 00:47 Dose: Infused Documented By: Admin: 04/07/24 20:50 Dose: 125 mls/hr Documented By: MIKE Sodium Chloride (Nss) 1,000 mls @ 100 mls/hr IV .Q10H STA Stop: 04/08/24 10:55 Last Infusion: 04/08/24 12:13 Dose: Infused Documented By: Admin: 04/08/24 02:27 Dose: 100 mls/hr Documented By: MIGUELITO Piperacillin Sod/Tazobactam Sod (Zosyn) 4.5 gm in 100 mls @ 25 mls/hr IV ONE STA; Protocol Stop: 04/08/24 08:06 Last Infusion: 04/08/24 08:19 Dose: Infused Documented By: Admin: 04/08/24 04:19 Dose: 25 mls/hr Documented By: BLAKE Insulin Aspart (Insulin Aspart Per Unit Charge) 0 units SC Q6 KARLO Stop: 05/08/24 03:26 Last Admin: 04/08/24 17:29 Dose: Not Given Documented By: Admin: 04/08/24 12:10 Dose: Not Given Documented By: Admin: 04/08/24 05:17 Dose: Not Given Documented By: BLAKE Co-signed By: GABRIELLE Admin: 04/08/24 01:50 Dose: Not Given Documented By: BLAKE Co-signed By: MIGUELITO Ioversol (Optiray 320 125ml) 119 ml IV ONCE ONE Stop: 04/07/24 22:25 Last Admin: 04/07/24 22:24 Dose: 119 ml Documented By: SALO Lorazepam (Lorazepam 2 Mg/1 Ml Vial) 0.25 mg IV NOW STA Stop: 04/08/24 22:59 Last Admin: 04/08/24 23:08 Dose: 0.25 mg Documented By: CHITRA Oxycodone HCl (Oxycodone Hcl Ir 5 Mg Tab (Immediate Release)) 5 mg PO NOW STA Stop: 04/07/24 20:14 Last Admin: 04/07/24 20:17 Dose: 5 mg Documented By: MIKE Oxycodone HCl (Oxycodone Hcl Ir 5 Mg Tab (Immediate Release)) 5 mg PO NOW STA Stop: 04/08/24 00:30 Last Admin: 04/08/24 00:37 Dose: 5 mg Documented By: MIGUELITO Imaging Data Radiologist's Impression: Chest X-Ray 04/07/24 18:30 Exam(s): XR CXR 1 VIEW EXAM: XR Chest, 1 View CLINICAL HISTORY: Weakness. TECHNIQUE: Frontal view of the chest. COMPARISON: Portable chest single view 02/03/2023 FINDINGS: Lungs: Chronic interstitial changes, predominantly in the perihilar regions and lower lung zones. No focal airspace consolidation. The pulmonary vasculature demonstrates no significant abnormality. Pleural space: Unremarkable. No pneumothorax. No large pleural effusion. Heart: The cardiac silhouette is stable in size. Mediastinum: No significant abnormality identified. The trachea is midline. Bones/joints: Unremarkable. No acute fracture. IMPRESSION: No acute cardiopulmonary process or significant alteration from the prior examination. Electronically signed by: Mckay Brown MD 04/07/24 20:[address] 04/07/24 19:32 Exam(s): CT HEAD Without Contrast EXAM: CT Head Without Intravenous Contrast CLINICAL HISTORY: dizzy, watson. TECHNIQUE: Axial computed tomography images of the head/brain without intravenous contrast. CTDI is 14.8 mGy and DLP is 804.3 mGy-cm. Automated exposure control was utilized for the study. A dose lowering technique was utilized adhering to the principles of ALARA. COMPARISON: CT head without contrast 03/26/2024 FINDINGS: Brain: There are a few areas of decreased attenuation in the deep cerebral white matter consistent with mild small vessel ischemic/degenerative changes. The cerebral and cerebellar sulci are mildly prominent consistent with mild brain atrophy. No hemorrhage. Ventricles: Unremarkable. No ventriculomegaly. Bones/joints: Unremarkable. No acute fracture. Soft tissues: Unremarkable. Vasculature: Atherosclerotic disease. Sinuses: Pulse opacification of several ethmoid air cells. No air- fluid levels. Mastoid air cells: Unremarkable as visualized. No mastoid effusion. IMPRESSION: No acute intracranial process or significant alteration from the prior examination. Electronically signed by: Mckay Brown MD 04/07/24 20:39 PM Chest CTA 04/07/24 22:12 Exam(s): CTA CHEST IV Amt: 119ml optiray 320 EXAM: CT Angiography Chest With Intravenous Contrast CLINICAL HISTORY: Evaluate for potential pulmonary embolism. TECHNIQUE: Axial computed tomographic angiography images of the chest with intravenous contrast. CTDI is 25.04 mGy and DLP is 771.02 mGy-cm. Automated exposure control was utilized for the study. A dose lowering technique was utilized adhering to the principles of ALARA. MIP reconstructed images were created and reviewed. COMPARISON: CT chest without contrast dated 02/03/2023 FINDINGS: Pulmonary arteries: Accounting for limitations with respiratory artifact, there is no definite evidence for pulmonary embolism. Aorta: No acute findings. No thoracic aortic aneurysm. Lungs: Peripheral areas of increased attenuation, similar to slightly progressive when compared to the prior examination. Increased interlobular septal thickening when compared to the prior examination. No lobar consolidation. Pleural space: Similar pleural thickening, most notable involving the posterior lung zones with coexisting pleural calcification, similar to the previous examination. No significant effusion. No pneumothorax. Heart: The cardiac chambers are mildly prominent. Moderate RCA in LAD calcification. Bones/joints: Similar healed posterior lateral right sixth and seventh rib fractures. No acute osseous abnormality. No dislocation. Soft tissues: Unremarkable. Lymph nodes: Unremarkable. No enlarged lymph nodes. IMPRESSION: 1. Accounting for limitations with respiratory artifact, there is no definite evidence for pulmonary embolism. 2. Peripheral areas of increased attenuation, similar to slightly progressive when compared to the prior examination. Increased interlobular septal thickening when compared to the prior examination. No lobar consolidation. The appearance may represent advancing chronic interstitial fibrotic disease. However, a component of dependent mild vascular congestion is also suggested. No pneumothorax. 3. Similar pleural thickening, most notable involving the posterior lung zones with coexisting pleural calcification, similar to the previous examination. No pleural effusion. Electronically signed by: Mckay Brown MD 04/07/24 23:43 PM Discharge Plan Visit Data Chief Complaint: Vertigo Stated Complaint: DIZZY, HEADACHE, SORE THROAT ED Provider: Millie Paez Discharge Problem: Dizziness, Dehydration, Leukocytosis, JUWAN (acute kidney injury) Patient Disposition: Admitted As Inpatient Discharge Instructions Interventions: ED Discharge Assessment Last Done: 04/08/24 03:27
--- NOTE | 2024-04-07 20:16 | XRay Report ---
Exam(s): XR CXR 1 VIEW EXAM: XR Chest, 1 View CLINICAL HISTORY: Weakness. TECHNIQUE: Frontal view of the chest. COMPARISON: Portable chest single view 02/03/2023 FINDINGS: Lungs: Chronic interstitial changes, predominantly in the perihilar regions and lower lung zones. No focal airspace consolidation. The pulmonary vasculature demonstrates no significant abnormality. Pleural space: Unremarkable. No pneumothorax. No large pleural effusion. Heart: The cardiac silhouette is stable in size. Mediastinum: No significant abnormality identified. The trachea is midline. Bones/joints: Unremarkable. No acute fracture. IMPRESSION: No acute cardiopulmonary process or significant alteration from the prior examination. Electronically signed by: Mckay Brown MD 04/07/24 20:15 PM
[2024-04-07] MEDS: oxyCODONE HCL IR 5 MG TAB (IMMEDIATE RELEASE) PO STA (20:17)
--- NOTE | 2024-04-07 20:40 | CT Scan Report ---
Exam(s): CT HEAD Without Contrast EXAM: CT Head Without Intravenous Contrast CLINICAL HISTORY: dizzy, watson. TECHNIQUE: Axial computed tomography images of the head/brain without intravenous contrast. CTDI is 14.8 mGy and DLP is 804.3 mGy-cm. Automated exposure control was utilized for the study. A dose lowering technique was utilized adhering to the principles of ALARA. COMPARISON: CT head without contrast 03/26/2024 FINDINGS: Brain: There are a few areas of decreased attenuation in the deep cerebral white matter consistent with mild small vessel ischemic/degenerative changes. The cerebral and cerebellar sulci are mildly prominent consistent with mild brain atrophy. No hemorrhage. Ventricles: Unremarkable. No ventriculomegaly. Bones/joints: Unremarkable. No acute fracture. Soft tissues: Unremarkable. Vasculature: Atherosclerotic disease. Sinuses: Pulse opacification of several ethmoid air cells. No air- fluid levels. Mastoid air cells: Unremarkable as visualized. No mastoid effusion. IMPRESSION: No acute intracranial process or significant alteration from the prior examination. Electronically signed by: Mckay Brown MD 04/07/24 20:39 PM
[2024-04-07] MEDS: SODIUM CHLORIDE 0.9% 1,000 ML IV SCH (20:50)
[2024-04-07] MEDS: OPTIRAY 320 125ml IV ONE (22:24)
--- NOTE | 2024-04-07 23:44 | CT Scan Report ---
Exam(s): CTA CHEST IV Amt: 119ml optiray 320 EXAM: CT Angiography Chest With Intravenous Contrast CLINICAL HISTORY: Evaluate for potential pulmonary embolism. TECHNIQUE: Axial computed tomographic angiography images of the chest with intravenous contrast. CTDI is 25.04 mGy and DLP is 771.02 mGy-cm. Automated exposure control was utilized for the study. A dose lowering technique was utilized adhering to the principles of ALARA. MIP reconstructed images were created and reviewed. COMPARISON: CT chest without contrast dated 02/03/2023 FINDINGS: Pulmonary arteries: Accounting for limitations with respiratory artifact, there is no definite evidence for pulmonary embolism. Aorta: No acute findings. No thoracic aortic aneurysm. Lungs: Peripheral areas of increased attenuation, similar to slightly progressive when compared to the prior examination. Increased interlobular septal thickening when compared to the prior examination. No lobar consolidation. Pleural space: Similar pleural thickening, most notable involving the posterior lung zones with coexisting pleural calcification, similar to the previous examination. No significant effusion. No pneumothorax. Heart: The cardiac chambers are mildly prominent. Moderate RCA in LAD calcification. Bones/joints: Similar healed posterior lateral right sixth and seventh rib fractures. No acute osseous abnormality. No dislocation. Soft tissues: Unremarkable. Lymph nodes: Unremarkable. No enlarged lymph nodes. IMPRESSION: 1. Accounting for limitations with respiratory artifact, there is no definite evidence for pulmonary embolism. 2. Peripheral areas of increased attenuation, similar to slightly progressive when compared to the prior examination. Increased interlobular septal thickening when compared to the prior examination. No lobar consolidation. The appearance may represent advancing chronic interstitial fibrotic disease. However, a component of dependent mild vascular congestion is also suggested. No pneumothorax. 3. Similar pleural thickening, most notable involving the posterior lung zones with coexisting pleural calcification, similar to the previous examination. No pleural effusion. Electronically signed by: Mckay Brown MD 04/07/24 23:43 PM
[2024-04-08] MEDS: oxyCODONE HCL IR 5 MG TAB (IMMEDIATE RELEASE) PO STA (00:37)
--- NOTE | 2024-04-08 00:50 | History & Physical Report ---
Date of Service April 08, 2024 Assessment & Plan (1) Dizziness: Plan: Dizziness Abnormal orthostatic vitals from last admission Hypotension on recent outpatient PCP visit Possible autonomic neuropathy given history DM ? Symptomatic bradycardia Possible sepsis, marked leukocytosis, elevated procalcitonin, rule out biliary and ENT source given abnormal LFTs and sore throat complaints Recent COVID-19 illness status post Decadron course ARF on CKD secondary to illness chronic diastolic heart failure, patient on the dry side DM2 on oral medications, well-controlled as of recent hemoglobin A1c of 5.28 December 2023 chronic anemia, hemoglobin at baseline NAFLD cirrhosis prostate cancer status post surgery past tobacco abuse OBS Medical telemetry CS, [place] for now CT soft tissue neck re: persistent sore throat symptoms CT abdomen pelvis re: abnormal LFTs Recheck orthostatic vitals Initiate midodrine if abnormal Consider discontinuing low-dose beta-alicia if bradycardia persistent given dizziness symptoms Basal bolus insulin, ISS BG goal 1 10-1 40, carb count coverage DVT prophylaxis. SCDs until CTs is resulted Full code Patient requesting updates providers. [facility], contact #[phone]. Text document was generated using [employer] voice recognition software. It may contain grammatical or spelling errors. Kindly contact undersigned for clarification of any documentation item in question. History of Present Illness Chief Complaint: Persistent dizziness, getting worse Primary Care Provider: Jerzy Glez MD History obtained from patient and records. Medical history significant for chronic diastolic heart failure (EF 60 %, TTE 2023), valvular heart disease (mild MR/TR), hypertension, ILD, history endocarditis, DM2 on oral medications, CRI (baseline creatinine 1.5), chronic anemia (baseline hemoglobin 11-13), NAFLD cirrhosis, prostate cancer, chronic back pain on narcotics, past tobacco abuse. Recent overnight confinement 10 days ago for dizziness symptoms attributed to COVID-19 illness. Patient discharged on Decadron course. Abnormal orthostatic vitals documented during confinement. SBP noted to be 90s, heart rate 60s on PCP visit 4 days ago. Patient with persistent dizziness/lightheadedness symptoms on standing up. PCP discontinued amlodipine and spironolactone. Worsening dizziness/achy headache symptoms at home Persistent sore throat symptoms with transient chest pain/SOB. No unusual cough symptoms. Denies abdominal pain. Patient brought to ER by for evaluation. 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 Allergies Allergy/AdvReac Type Severity Reaction Status Date / Time No Known Allergies Allergy Verified 03/26/24 22:47 Home Medications Medication Instructions Recorded Confirmed Type oxycodone 10 mg tablet 10 mg PO QID 01/02/22 04/08/24 History trazodone 100 mg tablet 100 mg PO HS 01/02/22 04/08/24 History metoprolol succinate 25 mg 12.5 mg PO QAM 01/15/23 04/08/24 History tablet,extended release 24 hr citalopram 20 mg tablet 20 mg PO QAM 03/26/24 04/08/24 History dextromethorphan-guaifenesin 30 1 tab PO BID PRN cough #14 tabs 03/29/24 04/08/24 Rx mg-600 mg tablet extended hr (Mucinex DM) furosemide 40 mg tablet 40 mg PO UD 04/08/24 04/08/24 History Past Med/Surg History Problem List (Updated 04/07/24 @ 20:11 by Millie Paez, DO) Dehydration (Acute) Dizziness (Acute) COVID-19 Depression Hypertension, essential Dizziness (Acute) Generalized weakness (Acute) COVID-19 (Acute) Generalized weakness (Acute) Leukocytosis (Acute) Fever (Acute) Acute exacerbation of CHF (congestive heart failure) (Acute) Shortness of breath (Acute) Bilateral edema of lower extremity (Acute) Recent weight gain (Acute) Hypomagnesemia (Acute) Acute on chronic heart failure with preserved ejection fraction (HFpEF) Chest pressure (Acute) Acute exacerbation of CHF (congestive heart failure) (Acute) Multiple rib fractures (Acute) History of cholecystectomy Previous back surgery Rib pain (Acute 09/10/10) Subacute bacterial endocarditis (Acute 09/24/10) Medical History Anemia Cirrhosis H/O endocarditis DMII (diabetes mellitus, type 2) CKD (chronic kidney disease), stage III Hypertensive urgency Acute decompensated heart failure Opioid type dependence, unspecified Social History Smoking Status: Former smoker Tobacco Type: Cigarettes Cigarettes Per Day: 15; Second Hand Exposure: No; Do You Dip or Chew Tobacco: No; Hx Alcohol Use: No Hx Substance Use: No Preferred Language: Danish Communication Ability: Effective Powerbuilder Required: No Beliefs That Will Affect Care: None marital status: Current Living Situation: Alone Other Information That Helps Us Care for You: No Feels Safe at Home: Yes Safety Concerns: Feels Safe At This Time Assistive Devices: None Review of Systems Review of Systems: As per HPI, all other systems reviewed and negative Physical Exam Physical Exam: GENERAL: Slightly uncomfortable, pleasant, no respiratory distress SKIN: Pallor, warm HEENT: Pale palpebral conjunctivae, no ptosis, moist buccal mucosa NECK : Supple, no tenderness CHEST : Decreased breath sounds, no tenderness HEART : Bradycardic, systolic murmur ABDOMEN: Some distention, nontender EXTREMITIES : Minimal LE swelling, no LE tenderness, no other conspicuous deformities noted NEUROLOGIC : Coherent, no facial asymmetry, gait and stance not assessed Results & Data Results & Data Vital Signs (Past 12 Hours) Vital Signs Temp Pulse Pulse Resp BP BP Pulse Ox 04/07/24 23:30 53 L 17 133/55 L 93 04/07/24 23:00 53 L 16 137/52 L 94 04/07/24 23:00 54 L 04/07/24 22:42 60 20 94 04/07/24 22:12 53 L 18 94 04/07/24 22:00 54 L 17 94 04/07/24 21:51 51 L 16 94 04/07/24 21:45 53 L 21 94 04/07/24 21:15 54 L 21 94 04/07/24 21:00 55 L 22 136/57 L 95 04/07/24 20:57 04/07/24 20:42 56 L 21 96 04/07/24 20:32 148/49 H 04/07/24 20:12 58 L 23 96 04/07/24 20:06 57 L 18 96 04/07/24 20:00 142/56 H 04/07/24 19:33 58 L 22 95 04/07/24 19:32 158/60 H 04/07/24 19:30 59 L 24 96 04/07/24 19:21 59 L 24 96 04/07/24 19:09 59 L 23 96 01/11/25 19:01 59 L 21 151/56 H 94 04/07/24 18:59 59 L 04/07/24 18:24 36.8 C 62 20 113/54 L 95 O2 Del Method 04/07/24 23:30 04/07/24 23:00 04/07/24 23:00 04/07/24 22:42 Room Air 04/07/24 22:12 Room Air 04/07/24 22:00 Room Air 04/07/24 21:51 Room Air 04/07/24 21:45 Room Air 04/07/24 21:15 Room Air 04/07/24 21:00 Room Air 04/07/24 20:57 Room Air 04/07/24 20:42 Room Air 04/07/24 20:32 04/07/24 20:12 Room Air 04/07/24 20:06 Room Air 04/07/24 20:00 04/07/24 19:33 Room Air 04/07/24 19:32 04/07/24 19:30 Room Air 04/07/24 19:21 Room Air 04/07/24 19:09 Room Air 04/07/24 19:01 Room Air 04/07/24 18:59 04/07/24 18:24 Room Air Laboratory Results Laboratory Results WBC 19.81 K/ul (4.8-10.8) H 04/07/24 18:42 RBC 4.06 M/uL (4.70-6.10) L 04/07/24 18:42 Hgb 13.8 g/dl (14.0-18.0) L 04/07/24 18:42 Hct 40.0 % (42.0-52.0) L 04/07/24 18:42 MCV 98.5 fL (80.0-100.0) 04/07/24 18:42 MCH 34.0 pg (25.0-34.0) 04/07/24 18:42 MCHC 34.5 g/dL (32.0-36.0) 04/07/24 18:42 RDW Std Deviation 51.2 fL (36.4-46.3) H 04/07/24 18:42 RDW Coeff of Marjorie 14.0 % (11.5-14.5) 04/07/24 18:42 Plt Count 160 K/uL (130-400) 04/07/24 18:42 MPV 11.1 fL (9.4-12.4) 04/07/24 18:42 Immature Gran % (Auto) 0.8 % 04/07/24 18:42 Neut % (Auto) 72.9 % 04/07/24 18:42 Lymph % (Auto) 13.2 % 04/07/24 18:42 [place] % (Auto) 11.0 % 04/07/24 18:42 Eos % (Auto) 1.9 % 04/07/24 18:42 Baso % (Auto) 0.2 % 04/07/24 18:42 Neut # (Auto) 14.46 K/uL (1.40-6.50) H 04/07/24 18:42 Lymph # (Auto) 2.61 K/uL (1.20-3.40) 04/07/24 18:42 [place] # (Auto) 2.17 K/uL (0.11-0.59) H 04/07/24 18:42 Eos # (Auto) 0.37 K/uL (0.00-0.50) 04/07/24 18:42 Baso # (Auto) 0.04 K/uL (0.00-0.20) 04/07/24 18:42 Immature Gran # (Auto) 0.16 K/uL (0.01-0.20) 04/07/24 18:42 PT 11.9 Seconds (9.0-12.0) 04/07/24 18:42 INR 1.1 (0.9-1.1) 04/07/24 18:42 APTT 28 Seconds (21-31) 04/07/24 18:42 PTT Ratio 1.0 04/07/24 18:42 Sodium 133 mmol/L (136-145) L 04/07/24 18:42 Potassium 4.8 mmol/L (3.5-5.1) 04/07/24 18:42 Chloride 99 mmol/L (98-107) 04/07/24 18:42 Carbon Dioxide 31 mmol/L (21-32) 04/07/24 18:42 Anion Gap 3 (3-11) 04/07/24 18:42 BUN 45 mg/dl (6-23) H 04/07/24 18:42 Creatinine 1.72 mg/dl (0.6-1.4) H 04/07/24 18:42 Est Cr Clr Drug Dosing 42.0 ml/min 04/07/24 18:42 eGFR 40.94 04/07/24 18:42 BUN/Creatinine Ratio 26.2 (10-20) H 04/07/24 18:42 Glucose 187 mg/dl (70-99(Fasting)) H 04/07/24 18:42 Calcium 8.2 mg/dl (8.6-10.3) L 04/07/24 18:42 Magnesium 2.0 mg/dl (1.7-2.4) 04/07/24 18:42 Total Bilirubin 2.4 mg/dl (0.2-1.0) H 04/07/24 18:42 AST 91 U/L (13-39) H 04/07/24 18:42 ALT 113 U/L (7-52) H 04/07/24 18:42 Alkaline Phosphatase 202 U/L (34-104) H 04/07/24 18:42 Troponin I High Sens 10.5 pg/ml (0-20) 04/07/24 18:42 Total Protein 6.9 gm/dl (6.0-8.3) 04/07/24 18:42 Albumin 3.0 gm/dl (3.4-5.0) L 04/07/24 18:42 Globulin 3.9 gm/dl (2.5-4.0) 04/07/24 18:42 Albumin/Globulin Ratio 0.8 (0.9-2) L 04/07/24 18:42 Procalcitonin 0.53 ng/ml (0-0.5) H 04/07/24 18:42 TSH 1.483 uIu/ml (0.300-4.500) 04/07/24 18:42 Impressions Chest X-Ray 04/07/24 18:30 Exam(s): XR CXR 1 VIEW EXAM: XR Chest, 1 View CLINICAL HISTORY: Weakness. TECHNIQUE: Frontal view of the chest. COMPARISON: Portable chest single view 02/03/2023 FINDINGS: Lungs: Chronic interstitial changes, predominantly in the perihilar regions and lower lung zones. No focal airspace consolidation. The pulmonary vasculature demonstrates no significant abnormality. Pleural space: Unremarkable. No pneumothorax. No large pleural effusion. Heart: The cardiac silhouette is stable in size. Mediastinum: No significant abnormality identified. The trachea is midline. Bones/joints: Unremarkable. No acute fracture. IMPRESSION: No acute cardiopulmonary process or significant alteration from the prior examination. Electronically signed by: Mckay Brown MD 04/07/24 20:[address] 04/07/24 19:32 Exam(s): CT HEAD Without Contrast EXAM: CT Head Without Intravenous Contrast CLINICAL HISTORY: dizzy, watson. TECHNIQUE: Axial computed tomography images of the head/brain without intravenous contrast. CTDI is 14.8 mGy and DLP is 804.3 mGy-cm. Automated exposure control was utilized for the study. A dose lowering technique was utilized adhering to the principles of ALARA. COMPARISON: CT head without contrast 03/26/2024 FINDINGS: Brain: There are a few areas of decreased attenuation in the deep cerebral white matter consistent with mild small vessel ischemic/degenerative changes. The cerebral and cerebellar sulci are mildly prominent consistent with mild brain atrophy. No hemorrhage. Ventricles: Unremarkable. No ventriculomegaly. Bones/joints: Unremarkable. No acute fracture. Soft tissues: Unremarkable. Vasculature: Atherosclerotic disease. Sinuses: Pulse opacification of several ethmoid air cells. No air- fluid levels. Mastoid air cells: Unremarkable as visualized. No mastoid effusion. IMPRESSION: No acute intracranial process or significant alteration from the prior examination. Electronically signed by: Mckay Brown MD 04/07/24 20:39 PM Chest CTA 04/07/24 22:12 Exam(s): CTA CHEST IV Amt: 119ml optiray 320 EXAM: CT Angiography Chest With Intravenous Contrast CLINICAL HISTORY: Evaluate for potential pulmonary embolism. TECHNIQUE: Axial computed tomographic angiography images of the chest with intravenous contrast. CTDI is 25.04 mGy and DLP is 771.02 mGy-cm. Automated exposure control was utilized for the study. A dose lowering technique was utilized adhering to the principles of ALARA. MIP reconstructed images were created and reviewed. COMPARISON: CT chest without contrast dated 02/03/2023 FINDINGS: Pulmonary arteries: Accounting for limitations with respiratory artifact, there is no definite evidence for pulmonary embolism. Aorta: No acute findings. No thoracic aortic aneurysm. Lungs: Peripheral areas of increased attenuation, similar to slightly progressive when compared to the prior examination. Increased interlobular septal thickening when compared to the prior examination. No lobar consolidation. Pleural space: Similar pleural thickening, most notable involving the posterior lung zones with coexisting pleural calcification, similar to the previous examination. No significant effusion. No pneumothorax. Heart: The cardiac chambers are mildly prominent. Moderate RCA in LAD calcification. Bones/joints: Similar healed posterior lateral right sixth and seventh rib fractures. No acute osseous abnormality. No dislocation. Soft tissues: Unremarkable. Lymph nodes: Unremarkable. No enlarged lymph nodes. IMPRESSION: 1. Accounting for limitations with respiratory artifact, there is no definite evidence for pulmonary embolism. 2. Peripheral areas of increased attenuation, similar to slightly progressive when compared to the prior examination. Increased interlobular septal thickening when compared to the prior examination. No lobar consolidation. The appearance may represent advancing chronic interstitial fibrotic disease. However, a component of dependent mild vascular congestion is also suggested. No pneumothorax. 3. Similar pleural thickening, most notable involving the posterior lung zones with coexisting pleural calcification, similar to the previous examination. No pleural effusion. Electronically signed by: Mckay Brown MD 04/07/24 23:43 PM Diagnostic Findings EKG as per my interpretation :Rate 55, sinus bradycardia, LAD, LAFB, LVH, no ischemia
[2024-04-08] MEDS ORDERED: LORazepam 0.5 MG TAB PO PRN (01:24)
[2024-04-08 01:45] LABS: Appearance Urine Clear (Clear); Bilirubin Urine Negative (Negative); Blood Urine Negative (Negative); Color Urine Yellow; Glucose Urine UA Trace (Negative); Ketones Urine Negative (Negative); Leukocyte Esterase Urine Negative (Negative); Nitrite Urine Negative (Negative); Protein Urine Negative (Negative); Specific Gravity Urine 1.045 (1.000-1.030); Urobilinogen Urine Positive (Negative); pH Urine 6.5 (4.5-7.5)
[2024-04-08] MEDS: INSULIN ASPART PER UNIT CHARGE SC SCH ×2 (01:50→20:57)
[2024-04-08 02:21] LABS: Basophils # (auto) 0.03 K/uL (0.00-0.20); Basophils % (auto) 0.2 %; Eosinophils # (auto) 0.36 K/uL (0.00-0.50); Hematocrit (blood only) 35.1 % (42.0-52.0); Immature Granulocytes # (auto) 0.13 K/uL (0.01-0.20); Immature Granulocytes % (auto) 0.7 %; Lymphocytes # (auto) 3.16 K/uL (1.20-3.40); Lymphocytes % (auto) 17.7 %; Mean Corpuscular Hemoglobin 33.5 pg (25.0-34.0); Mean Corpuscular Hgb Conc 34.2 g/dL (32.0-36.0); Mean Platelet Volume 10.7 fL (9.4-12.4); Monocytes # (auto) 2.14 K/uL (0.11-0.59); Neutrophils # (auto) 12.02 K/uL (1.40-6.50); Neutrophils % (auto) 67.4 %; Platelet Count 120 K/uL (130-400); RDW Coefficient of Variation 13.9 % (11.5-14.5); RDW Standard Deviation 50.4 fL (36.4-46.3); Red Blood Count 3.58 M/uL (4.70-6.10); White Blood Count 17.84 K/ul (4.8-10.8)
[2024-04-08] MEDS: SODIUM CHLORIDE 0.9% 1,000 ML IV STA (02:27)
[2024-04-08 02:32] LABS: Adenovirus PCR Not Detected (NotDetected); Bordetella parapertussis PCR Not Detected (NotDetected); Bordetella pertussis PCR Not Detected (NotDetected); Chlamydia pneumoniae PCR Not Detected (NotDetected); Coronavirus 229E PCR Not Detected (NotDetected); Coronavirus CoV-2 (COVID19)PCR DETECTED (NotDetected); Coronavirus HKU1 PCR Not Detected (NotDetected); Coronavirus NL63 PCR Not Detected (NotDetected); Coronavirus OC43PCR Not Detected (NotDetected); Human Metapneumovirus PCR Not Detected (NotDetected); Influenza A PCR Not Detected (NotDetected); Influenza B PCR Not Detected (NotDetected); Mycoplasma pneumoniae PCR Not Detected (NotDetected); Parainfluenza Virus 1 PCR Not Detected (NotDetected); Parainfluenza Virus 2 PCR Not Detected (NotDetected); Parainfluenza Virus 3 PCR Not Detected (NotDetected); Parainfluenza Virus 4 PCR Not Detected (NotDetected); Respiratory Syncytial VirusPCR Not Detected (NotDetected); Rhinovirus/Enterovirus PCR Not Detected (NotDetected)
[2024-04-08 02:38] LABS: Albumin Globulin Ratio 0.8 (0.9-2); Albumin Level 2.6 gm/dl (3.4-5.0); Bilirubin,Total 2.1 mg/dl (0.2-1.0); Calcium 7.4 mg/dl (8.6-10.3); Creatinine Clr Calc Pharmacy 49.8 ml/min; Globulin 3.3 gm/dl (2.5-4.0); Potassium 4.5 mmol/L (3.5-5.1); Total Protein 5.9 gm/dl (6.0-8.3)
[2024-04-08] MEDS ORDERED: GLUCAGON FOR INJ 1 MG VIAL SQ PRN (03:27)
[2024-04-08] MEDS ORDERED: CARBOHYDRATES FOR HYPOGLYCEMIA PO PRN (03:27)
[2024-04-08] MEDS ORDERED: GLUCOSE 10 TAB/TUBE PO PRN (03:27)
[2024-04-08] MEDS ORDERED: GLUCOSE 40% GEL 15 GM TUBE PO PRN (03:27)
[2024-04-08] MEDS ORDERED: DEXTROSE 50% 50 ML SYRINGE IV PRN (03:27)
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
--- NOTE | 2024-04-08 03:41 | CT Scan Report ---
EXAM: CT soft tissue neck wo con CLINICAL HISTORY: sore throat, abn lfts, abd pain TECHNIQUE: Computed tomography of the neck was performed without intravenous contrast. Contiguous axial images were obtained. Reformatted coronal and sagittal images were also reviewed. If IV contrast material had not been administered, the likelihood of detecting abnormalities relevant to the patients condition would have been substantially decreased. CT scan was performed according to ALARA (as low as reasonable achievable). COMPARISON: No FINDINGS: Mucosal thickening in bilateral maxillary and anterior ethmoidal air cells. Included intracranial substances, orbits, and rest of the paranasal sinuses are grossly unremarkable. Nasopharynx, oropharynx, oral cavity, hypopharynx and larynx are grossly unremarkable. Few tonsilloliths in right tonsillar crypts. Parotid, submandibular and thyroid glands are grossly unremarkable. Scattered bilateral jugulo-digastric lymph nodes are present however, none are pathologically enlarged. Visualized included lung apices are grossly clear, and no acute osseous abnormality detected. IMPRESSION: 1. Mucosal thickening in bilateral maxillary and anterior ethmoidal air cells. 2. Few tonsilloliths in right tonsillar crypts. 3. No other significant abnormality detected. Electronically signed by Bryan Antonio 04-08-2024 03:40 AM
[2024-04-08] MEDS: PIPERACILLIN/TAZOBACTAM 4.5 GM/100 ML BAG IV STA (04:19)
--- NOTE | 2024-04-08 04:19 | CT Scan Report ---
EXAM: CT abd pelvis wo con CLINICAL HISTORY: sore throat, abn lfts, abd pain TECHNIQUE: Contiguous axial images were obtained from the level of the diaphragm to the pubic symphysis without intravenous or oral contrast. Coronal and sagittal reconstructions were likewise performed and indicated to increase the sensitivity for detecting clinically relevant pathology. CT scan was performed according to ALARA (as low as reasonable achievable). COMPARISON: No FINDINGS: The visualized lung bases show pleural calcification along basal segments of bilateral lower lobes. Evaluation of the abdominal and pelvic visceral organs is limited without intravenous contrast. The liver shows a nodular surface architecture. The unenhanced, pancreas, and adrenal glands are grossly unremarkable. Surgically removed gallbladder. Mild splenomegaly seen. Dilated splenic vein and superior mesenteric vein. The kidneys are normal in size and attenuation without obvious calcification. There is no hydronephrosis. Mild bilateral perinephric stranding. The ureters are normal in caliber. Multiple subcentimetric nodes along the pre and paraaortic regions. No fluid collections are seen. No evidence of focal or diffuse bowel wall thickening or evidence of bowel obstruction is seen. Multiple colonic diverticuale noted. The appendix is visualized in the right lower quadrant and appears within normal limits. The aorta is normal in caliber. The urinary bladder is normal in contour. Pelvic viscera are grossly unremarkable. No aggressive appearing osseous lesions are identified. IMPRESSION: 1. The visualized lung bases show pleural calcification along basal segments of bilateral lower lobes. 2. Nodular hepatic surface with dilated splenic vein and superior mesenteric vein, could represent hepatic cirrhosis. 3. Mild bilateral perinephric stranding. 4. Mild splenomegaly. Electronically signed by Bryan Antonio 04-08-2024 04:19 AM
[2024-04-08] MEDS: ACETAMINOPHEN 500 MG TAB PO PRN (07:29)
[2024-04-08] MEDS: oxyCODONE HCL IR 5 MG TAB (IMMEDIATE RELEASE) PO SCH (09:14)
--- NOTE | 2024-04-08 10:17 | Gastrointestinal Consultation ---
Date of Consultation April 08, 2024 Assessment & Plan (1) Cirrhosis: Clinically compensated cirrhosis no signs of deterioration or decompensation. Doubt significant cause for any acute issues going on. COVID can cause some elevation in liver enzymes which may be contributing to the present levels. H owever his liver enzymes are supportive for chronic liver disease. Plan Continue to monitor his liver enzymes. Try to obtain records from his outside physician to confirm etiology of disease. However it would be reasonable to check hep B and hep C serologies. History of Present Illness Reason for Consultation: Cirrhosis and abnormal liver enzymes Attending Physician: Rosanne Fonseca MD History of Present Illness Patient presented to the emergency room with a history of recurrent dizziness. Found to be COVID-positive. CT scan showed evidence of cirrhosis. Patient states that he has a history of cirrhosis followed by an outside physician. In the past his cirrhosis has been complicated by ascites and lower extremity edema. Is any history of esophageal varices GI bleeding or confusion. He denies any significant alcohol abuse. He presently denies any abdominal pain nausea vomiting diarrhea melena or hematemesis. Allergies Allergy/AdvReac Type Severity Reaction Status Date / Time No Known Allergies Allergy Verified 03/26/24 22:47 Home Medications Medication Instructions Recorded Confirmed Type oxycodone 10 mg tablet 10 mg PO QID 01/02/22 04/08/24 History trazodone 100 mg tablet 100 mg PO HS 01/02/22 04/08/24 History metoprolol succinate 25 mg 12.5 mg PO QAM 01/15/23 04/08/24 History tablet,extended release 24 hr citalopram 20 mg tablet 20 mg PO QAM 03/26/24 04/08/24 History dextromethorphan-guaifenesin 30 1 tab PO BID PRN cough #14 tabs 03/29/24 04/08/24 Rx mg-600 mg tablet extended hr (Mucinex DM) furosemide 40 mg tablet 40 mg PO UD 04/08/24 04/08/24 History Patient History Medical History Anemia Cirrhosis H/O endocarditis DMII (diabetes mellitus, type 2) CKD (chronic kidney disease), stage III Hypertensive urgency Acute decompensated heart failure Opioid type dependence, unspecified Social History Smoking Status: Former smoker Tobacco Type: Cigarettes Cigarettes Per Day: 15; Second Hand Exposure: No; Do You Dip or Chew Tobacco: No; Hx Alcohol Use: No Hx Substance Use: No Preferred Language: Liberian Communication Ability: Effective 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 Beliefs That Will Affect Care: None marital status: Current Living Situation: Alone Other Information That Helps Us Care for You: No Feels Safe at Home: Yes Safety Concerns: Feels Safe At This Time Assistive Devices: None Review of Systems Review of Systems: No fever No chills No SOB No CP No Abd pain Physical Exam Physical Exam: Eyes; anicteric HENT No masses Chest crackles at bases Cor S1, S2 physiologic Abd: softer nontender no masses Ext no edema Results & Data Vital Signs (Past 12 Hours) Vital Signs Pulse Resp BP Pulse Ox O2 Del Method 04/08/24 07:30 54 L 04/08/24 06:03 49 L 20 143/56 H 94 Room Air 04/08/24 05:06 49 L 22 121/39 L 95 Room Air 04/08/24 03:27 96 Room Air 04/07/24 23:30 53 L 17 133/55 L 93 04/07/24 23:00 53 L 16 137/52 L 94 04/07/24 23:00 54 L 04/07/24 22:42 60 20 94 Room Air 04/07/24 22:12 53 L 18 94 Room Air Laboratory Results Laboratory Results - last 48 hr 04/07/24 04/08/24 04/08/24 18:42 01:22 01:50 WBC 19.81 H 17.84 H RBC 4.06 L 3.58 L Hgb 13.8 L 12.0 L Hct 40.0 L 35.1 L MCV 98.5 98.0 MCH 34.0 33.5 MCHC 34.5 34.2 RDW Std Deviation 51.2 H 50.4 H RDW Coeff of Marjorie 14.0 13.9 Plt Count 160 120 L MPV 11.1 10.7 Immature Gran % (Auto) 0.8 0.7 Neut % (Auto) 72.9 67.4 Lymph % (Auto) 13.2 17.7 Desha % (Auto) 11.0 12.0 Eos % (Auto) 1.9 2.0 Baso % (Auto) 0.2 0.2 Neut # (Auto) 14.46 H 12.02 H Lymph # (Auto) 2.61 3.16 Desha # (Auto) 2.17 H 2.14 H Eos # (Auto) 0.37 0.36 Baso # (Auto) 0.04 0.03 Immature Gran # (Auto) 0.16 0.13 PT 11.9 INR 1.1 APTT 28 PTT Ratio 1.0 Sodium 133 L 135 L Potassium 4.8 4.5 Chloride 99 105 Carbon Dioxide 31 27 Anion Gap 3 3 BUN 45 H 42 H Creatinine 1.72 H 1.45 H Est Cr Clr Drug Dosing 42.0 49.8 eGFR 40.94 50.25 BUN/Creatinine Ratio 26.2 H 29.0 H Glucose 187 H 91 POC Glucose Lactate 0.9 Calcium 8.2 L 7.4 L Magnesium 2.0 Total Bilirubin 2.4 H 2.1 H AST 91 H 72 H ALT 113 H 93 H Alkaline Phosphatase 202 H 164 H Troponin I High Sens 10.5 Total Protein 6.9 5.9 L Albumin 3.0 L 2.6 L Globulin 3.9 3.3 Albumin/Globulin Ratio 0.8 L 0.8 L Lipase 49 Procalcitonin 0.53 H TSH 1.483 Urine Color Yellow Urine Appearance Clear Urine pH 6.5 Ur Specific [place] 1.045 H Urine Protein Negative Urine Glucose (UA) Trace H Urine Ketones Negative Urine Blood Negative Urine Nitrite Negative Urine Bilirubin Negative Urine Urobilinogen Positive H Ur Leukocyte Esterase Negative Adenovirus (PCR) Not Detected Anaplasma Smear Babesia Smear B. pertussis DNA (PCR) Not Detected B.parapertussis DNA PCR Not Detected Lyme Disease Screen C. pneumoniae DNA (PCR) Not Detected Coronavirus OC43 (PCR) Not Detected Coronavirus HKU1 (PCR) Not Detected Coronavirus 229E (PCR) Not Detected SARS-CoV-2 (PCR) DETECTED A Coronavirus NL63 (PCR) Not Detected Human Metapneumovir PCR Not Detected Influenza Type A (PCR) Not Detected Influenza Type B (PCR) Not Detected M. pneumoniae (PCR) Not Detected Parainfluenza 1 (PCR) Not Detected Parainfluenza 2 (PCR) Not Detected Parainfluenza 3 (PCR) Not Detected Parainfluenza 4 (PCR) Not Detected RSV (PCR) Not Detected Entero/Rhino (PCR) Not Detected 04/08/24 04/08/24 04/08/24 05:08 06:34 09:13 WBC RBC Hgb Hct MCV MCH MCHC RDW Std Deviation RDW Coeff of Marjorie Plt Count MPV Immature Gran % (Auto) Neut % (Auto) Lymph % (Auto) Desha % (Auto) Eos % (Auto) Baso % (Auto) Neut # (Auto) Lymph # (Auto) Desha # (Auto) Eos # (Auto) Baso # (Auto) Immature Gran # (Auto) PT INR APTT PTT Ratio Sodium Potassium Chloride Carbon Dioxide Anion Gap BUN Creatinine Est Cr Clr Drug Dosing eGFR BUN/Creatinine Ratio Glucose POC Glucose 129 H 113 H Lactate Calcium Magnesium Total Bilirubin AST ALT Alkaline Phosphatase Troponin I High Sens Total Protein Albumin Globulin Albumin/Globulin Ratio Lipase Procalcitonin TSH Urine Color Urine Appearance Urine pH Ur Specific [place] Urine Protein Urine Glucose (UA) Urine Ketones Urine Blood Urine Nitrite Urine Bilirubin Urine Urobilinogen Ur Leukocyte Esterase Adenovirus (PCR) Anaplasma Smear See Comment Babesia Smear See Comment B. pertussis DNA (PCR) B.parapertussis DNA PCR Lyme Disease Screen Negative C. pneumoniae DNA (PCR) Coronavirus OC43 (PCR) Coronavirus HKU1 (PCR) Coronavirus 229E (PCR) SARS-CoV-2 (PCR) Coronavirus NL63 (PCR) Human Metapneumovir PCR Influenza Type A (PCR) Influenza Type B (PCR) M. pneumoniae (PCR) Parainfluenza 1 (PCR) Parainfluenza 2 (PCR) Parainfluenza 3 (PCR) Parainfluenza 4 (PCR) RSV (PCR) Entero/Rhino (PCR) Diagnostic Findings Chest X-Ray 04/07/24 18:30 Exam(s): XR CXR 1 VIEW EXAM: XR Chest, 1 View CLINICAL HISTORY: Weakness. TECHNIQUE: Frontal view of the chest. COMPARISON: Portable chest single view 02/03/2023 FINDINGS: Lungs: Chronic interstitial changes, predominantly in the perihilar regions and lower lung zones. No focal airspace consolidation. The pulmonary vasculature demonstrates no significant abnormality. Pleural space: Unremarkable. No pneumothorax. No large pleural effusion. Heart: The cardiac silhouette is stable in size. Mediastinum: No significant abnormality identified. The trachea is midline. Bones/joints: Unremarkable. No acute fracture. IMPRESSION: No acute cardiopulmonary process or significant alteration from the prior examination. Electronically signed by: Mckay Brown MD 04/07/24 20:[address] 04/07/24 19:32 Exam(s): CT HEAD Without Contrast EXAM: CT Head Without Intravenous Contrast CLINICAL HISTORY: dizzy, watson. TECHNIQUE: Axial computed tomography images of the head/brain without intravenous contrast. CTDI is 14.8 mGy and DLP is 804.3 mGy-cm. Automated exposure control was utilized for the study. A dose lowering technique was utilized adhering to the principles of ALARA. COMPARISON: CT head without contrast 03/26/2024 FINDINGS: Brain: There are a few areas of decreased attenuation in the deep cerebral white matter consistent with mild small vessel ischemic/degenerative changes. The cerebral and cerebellar sulci are mildly prominent consistent with mild brain atrophy. No hemorrhage. Ventricles: Unremarkable. No ventriculomegaly. Bones/joints: Unremarkable. No acute fracture. Soft tissues: Unremarkable. Vasculature: Atherosclerotic disease. Sinuses: Pulse opacification of several ethmoid air cells. No air- fluid levels. Mastoid air cells: Unremarkable as visualized. No mastoid effusion. IMPRESSION: No acute intracranial process or significant alteration from the prior examination. Electronically signed by: Mckay Brown MD 04/07/24 20:39 PM Chest CTA 04/07/24 22:12 Exam(s): CTA CHEST IV Amt: 119ml optiray 320 EXAM: CT Angiography Chest With Intravenous Contrast CLINICAL HISTORY: Evaluate for potential pulmonary embolism. TECHNIQUE: Axial computed tomographic angiography images of the chest with intravenous contrast. CTDI is 25.04 mGy and DLP is 771.02 mGy-cm. Automated exposure control was utilized for the study. A dose lowering technique was utilized adhering to the principles of ALARA. MIP reconstructed images were created and reviewed. COMPARISON: CT chest without contrast dated 02/03/2023 FINDINGS: Pulmonary arteries: Accounting for limitations with respiratory artifact, there is no definite evidence for pulmonary embolism. Aorta: No acute findings. No thoracic aortic aneurysm. Lungs: Peripheral areas of increased attenuation, similar to slightly progressive when compared to the prior examination. Increased interlobular septal thickening when compared to the prior examination. No lobar consolidation. Pleural space: Similar pleural thickening, most notable involving the posterior lung zones with coexisting pleural calcification, similar to the previous examination. No significant effusion. No pneumothorax. Heart: The cardiac chambers are mildly prominent. Moderate RCA in LAD calcification. Bones/joints: Similar healed posterior lateral right sixth and seventh rib fractures. No acute osseous abnormality. No dislocation. Soft tissues: Unremarkable. Lymph nodes: Unremarkable. No enlarged lymph nodes. IMPRESSION: 1. Accounting for limitations with respiratory artifact, there is no definite evidence for pulmonary embolism. 2. Peripheral areas of increased attenuation, similar to slightly progressive when compared to the prior examination. Increased interlobular septal thickening when compared to the prior examination. No lobar consolidation. The appearance may represent advancing chronic interstitial fibrotic disease. However, a component of dependent mild vascular congestion is also suggested. No pneumothorax. 3. Similar pleural thickening, most notable involving the posterior lung zones with coexisting pleural calcification, similar to the previous examination. No pleural effusion. Electronically signed by: Mckay Brown MD 04/07/24 23:43 PM Abdomen/Pelvis CT 04/08/24 01:20 EXAM: CT abd pelvis wo con CLINICAL HISTORY: sore throat, abn lfts, abd pain TECHNIQUE: Contiguous axial images were obtained from the level of the diaphragm to the pubic symphysis without intravenous or oral contrast. Coronal and sagittal reconstructions were likewise performed and indicated to increase the sensitivity for detecting clinically relevant pathology. CT scan was performed according to ALARA (as low as reasonable achievable). COMPARISON: No FINDINGS: The visualized lung bases show pleural calcification along basal segments of bilateral lower lobes. Evaluation of the abdominal and pelvic visceral organs is limited without intravenous contrast. The liver shows a nodular surface architecture. The unenhanced, pancreas, and adrenal glands are grossly unremarkable. Surgically removed gallbladder. Mild splenomegaly seen. Dilated splenic vein and superior mesenteric vein. The kidneys are normal in size and attenuation without obvious calcification. There is no hydronephrosis. Mild bilateral perinephric stranding. The ureters are normal in caliber. Multiple subcentimetric nodes along the pre and paraaortic regions. No fluid collections are seen. No evidence of focal or diffuse bowel wall thickening or evidence of bowel obstruction is seen. Multiple colonic diverticuale noted. The appendix is visualized in the right lower quadrant and appears within normal limits. The aorta is normal in caliber. The urinary bladder is normal in contour. Pelvic viscera are grossly unremarkable. No aggressive appearing osseous lesions are identified. IMPRESSION: 1. The visualized lung bases show pleural calcification along basal segments of bilateral lower lobes. 2. Nodular hepatic surface with dilated splenic vein and superior mesenteric vein, could represent hepatic cirrhosis. 3. Mild bilateral perinephric stranding. 4. Mild splenomegaly. Electronically signed by Bryan Antonio 04-08-2024 04:19 AM Soft Tissue Neck CT 04/08/24 01:28 EXAM: CT soft tissue neck wo con CLINICAL HISTORY: sore throat, abn lfts, abd pain TECHNIQUE: Computed tomography of the neck was performed without intravenous contrast. Contiguous axial images were obtained. Reformatted coronal and sagittal images were also reviewed. If IV contrast material had not been administered, the likelihood of detecting abnormalities relevant to the patients condition would have been substantially decreased. CT scan was performed according to ALARA (as low as reasonable achievable). COMPARISON: No FINDINGS: Mucosal thickening in bilateral maxillary and anterior ethmoidal air cells. Included intracranial substances, orbits, and rest of the paranasal sinuses are grossly unremarkable. Nasopharynx, oropharynx, oral cavity, hypopharynx and larynx are grossly unremarkable. Few tonsilloliths in right tonsillar crypts. Parotid, submandibular and thyroid glands are grossly unremarkable. Scattered bilateral jugulo-digastric lymph nodes are present however, none are pathologically enlarged. Visualized included lung apices are grossly clear, and no acute osseous abnormality detected. IMPRESSION: 1. Mucosal thickening in bilateral maxillary and anterior ethmoidal air cells. 2. Few tonsilloliths in right tonsillar crypts. 3. No other significant abnormality detected. Electronically signed by Bryan Antonio 04-08-2024 03:40 AM PG Care Time/CCT Total # of Minutes Spent Total Time Spent with Patient: Total time spent is greater than 50% in coordination of care (as documented) at patient's floor/unit and/or counseling patient: Coding Level of Care Code 30346 IN/OBS CONSULT LVL 4,60M Diagnoses Cirrhosis K74.60
[2024-04-08] MEDS ORDERED: Nursing to Pharmacy Communication SCH (10:45)
[2024-04-08] MEDS: PIPERACILLIN/TAZOBACTAM 4.5 GM/100 ML BAG IV SCH (12:15)
--- NOTE | 2024-04-08 12:18 | Hospitalist Progress Note ---
Date of Service April 08, 2024 Assessment & Plan (1) Dizziness: Plan: Plan Patient is a 73-year-old male with Medical history significant for chronic diastolic heart failure (EF 60 %, TTE 2023), valvular heart disease (mild MR/TR), hypertension, ILD, history endocarditis, DM2 on oral medications, CRI (baseline creatinine 1.5), chronic anemia (baseline hemoglobin 11-13), NAFLD cirrhosis, prostate cancer, chronic back pain on narcotics, past tobacco abuse presenting with concern for dizziness once more. Dizziness Abnormal orthostatic vitals from last admission Hypotension on recent outpatient PCP visit Possible autonomic neuropathy given history DM ? Symptomatic bradycardia, improved with holding home metoprolol Head CT unremarkable telemetry monitoring repeat orthostatic vitals positive, will defer on midodrine at this time as patient's blood pressure actually on the higher side hold home antihypertensives and diuretics MRI of the brain ordered continue to monitor Possible sepsis marked leukocytosis (patient recently on steroids) elevated procalcitonin rule out biliary and ENT source given abnormal LFTs and sore throat complaints CT soft tissue neck noting mucosal sinus thickening CT abdomen pelvis noting concern for perinephric stranding bilaterally and cirrhosis COVID still positive UA unremarkable for infection Blood cultures pending Continue to monitor Acute Kidney Injury on CKD secondary to illness creatinine elevated at 1.72, known history of CKD Creatinine was 1.38 on March 28 Received fluids Improving CIrrhosis Elevated LFTs CT abdomen pelvis concerning for cirrhosis Patient denies alcohol use Likely nonalcoholic fatty liver disease GI consulted, appreciate recs Chronic Medial problems: chronic diastolic heart failure, patient on the dry side DM2 on oral medications, well-controlled as of recent hemoglobin A1c of 5.28 December 2023. ISS in hospital chronic anemia, hemoglobin at baseline prostate cancer status post surgery past tobacco abuse Diet: HH/DMII DVT prophylaxis. SCDs Full code Admission and Anticipated Discharge Date Admission Date: April 08, 2024 Subjective patient was seen while still down in the emergency room Stated that he was having chronic back pain Denied any abdominal pain at the time of exam. Notes that he has followed with GI in the past unsure exactly when states he is aware he might have a diagnosis of cirrhosis Denies any alcohol use Review of Systems Review of Systems: All systems reviewed & are unremarkable except as noted in Subjective Physical Exam Physical Exam: General: Alert, oriented. No acute distress Psych: Appropriate mood and affect HEENT: NC/AT CV: RRR, +mumur Resp: Breath sounds clear bilaterally, no increased effort of breathing Abdomen: Soft, nontender Extremities: No edema in lower extremities bilaterally. Results & Data Results & Data Vital Signs (Past 12 Hours) Vital Signs Pulse Resp BP Pulse Ox O2 Del Method 04/08/24 07:30 54 L 04/08/24 06:03 49 L 20 143/56 H 94 Room Air 04/08/24 05:06 49 L 22 121/39 L 95 Room Air 04/08/24 03:27 96 Room Air Diagnostic Findings Chest X-Ray 04/07/24 18:30 Exam(s): XR CXR 1 VIEW EXAM: XR Chest, 1 View CLINICAL HISTORY: Weakness. TECHNIQUE: Frontal view of the chest. COMPARISON: Portable chest single view 02/03/2023 FINDINGS: Lungs: Chronic interstitial changes, predominantly in the perihilar regions and lower lung zones. No focal airspace consolidation. The pulmonary vasculature demonstrates no significant abnormality. Pleural space: Unremarkable. No pneumothorax. No large pleural effusion. Heart: The cardiac silhouette is stable in size. Mediastinum: No significant abnormality identified. The trachea is midline. Bones/joints: Unremarkable. No acute fracture. IMPRESSION: No acute cardiopulmonary process or significant alteration from the prior examination. Electronically signed by: Mckay Brown MD 04/07/24 20:[address] 04/07/24 19:32 Exam(s): CT HEAD Without Contrast EXAM: CT Head Without Intravenous Contrast CLINICAL HISTORY: dizzy, watson. TECHNIQUE: Axial computed tomography images of the head/brain without intravenous contrast. CTDI is 14.8 mGy and DLP is 804.3 mGy-cm. Automated exposure control was utilized for the study. A dose lowering technique was utilized adhering to the principles of ALARA. COMPARISON: CT head without contrast 03/26/2024 FINDINGS: Brain: There are a few areas of decreased attenuation in the deep cerebral white matter consistent with mild small vessel ischemic/degenerative changes. The cerebral and cerebellar sulci are mildly prominent consistent with mild brain atrophy. No hemorrhage. Ventricles: Unremarkable. No ventriculomegaly. Bones/joints: Unremarkable. No acute fracture. Soft tissues: Unremarkable. Vasculature: Atherosclerotic disease. Sinuses: Pulse opacification of several ethmoid air cells. No air- fluid levels. Mastoid air cells: Unremarkable as visualized. No mastoid effusion. IMPRESSION: No acute intracranial process or significant alteration from the prior examination. Electronically signed by: Mckay Brown MD 04/07/24 20:39 PM Chest CTA 04/07/24 22:12 Exam(s): CTA CHEST IV Amt: 119ml optiray 320 EXAM: CT Angiography Chest With Intravenous Contrast CLINICAL HISTORY: Evaluate for potential pulmonary embolism. TECHNIQUE: Axial computed tomographic angiography images of the chest with intravenous contrast. CTDI is 25.04 mGy and DLP is 771.02 mGy-cm. Automated exposure control was utilized for the study. A dose lowering technique was utilized adhering to the principles of ALARA. MIP reconstructed images were created and reviewed. COMPARISON: CT chest without contrast dated 02/03/2023 FINDINGS: Pulmonary arteries: Accounting for limitations with respiratory artifact, there is no definite evidence for pulmonary embolism. Aorta: No acute findings. No thoracic aortic aneurysm. Lungs: Peripheral areas of increased attenuation, similar to slightly progressive when compared to the prior examination. Increased interlobular septal thickening when compared to the prior examination. No lobar consolidation. Pleural space: Similar pleural thickening, most notable involving the posterior lung zones with coexisting pleural calcification, similar to the previous examination. No significant effusion. No pneumothorax. Heart: The cardiac chambers are mildly prominent. Moderate RCA in LAD calcification. Bones/joints: Similar healed posterior lateral right sixth and seventh rib fractures. No acute osseous abnormality. No dislocation. Soft tissues: Unremarkable. Lymph nodes: Unremarkable. No enlarged lymph nodes. IMPRESSION: 1. Accounting for limitations with respiratory artifact, there is no definite evidence for pulmonary embolism. 2. Peripheral areas of increased attenuation, similar to slightly progressive when compared to the prior examination. Increased interlobular septal thickening when compared to the prior examination. No lobar consolidation. The appearance may represent advancing chronic interstitial fibrotic disease. However, a component of dependent mild vascular congestion is also suggested. No pneumothorax. 3. Similar pleural thickening, most notable involving the posterior lung zones with coexisting pleural calcification, similar to the previous examination. No pleural effusion. Electronically signed by: Mkcay Brown MD 04/07/24 23:43 PM Abdomen/Pelvis CT 04/08/24 01:20 EXAM: CT abd pelvis wo con CLINICAL HISTORY: sore throat, abn lfts, abd pain TECHNIQUE: Contiguous axial images were obtained from the level of the diaphragm to the pubic symphysis without intravenous or oral contrast. Coronal and sagittal reconstructions were likewise performed and indicated to increase the sensitivity for detecting clinically relevant pathology. CT scan was performed according to ALARA (as low as reasonable achievable). COMPARISON: No FINDINGS: The visualized lung bases show pleural calcification along basal segments of bilateral lower lobes. Evaluation of the abdominal and pelvic visceral organs is limited without intravenous contrast. The liver shows a nodular surface architecture. The unenhanced, pancreas, and adrenal glands are grossly unremarkable. Surgically removed gallbladder. Mild splenomegaly seen. Dilated splenic vein and superior mesenteric vein. The kidneys are normal in size and attenuation without obvious calcification. There is no hydronephrosis. Mild bilateral perinephric stranding. The ureters are normal in caliber. Multiple subcentimetric nodes along the pre and paraaortic regions. No fluid collections are seen. No evidence of focal or diffuse bowel wall thickening or evidence of bowel obstruction is seen. Multiple colonic diverticuale noted. The appendix is visualized in the right lower quadrant and appears within normal limits. The aorta is normal in caliber. The urinary bladder is normal in contour. Pelvic viscera are grossly unremarkable. No aggressive appearing osseous lesions are identified. IMPRESSION: 1. The visualized lung bases show pleural calcification along basal segments of bilateral lower lobes. 2. Nodular hepatic surface with dilated splenic vein and superior mesenteric vein, could represent hepatic cirrhosis. 3. Mild bilateral perinephric stranding. 4. Mild splenomegaly. Electronically signed by Bryan Antonio 04-08-2024 04:19 AM Soft Tissue Neck CT 04/08/24 01:28 EXAM: CT soft tissue neck wo con CLINICAL HISTORY: sore throat, abn lfts, abd pain TECHNIQUE: Computed tomography of the neck was performed without intravenous contrast. Contiguous axial images were obtained. Reformatted coronal and sagittal images were also reviewed. If IV contrast material had not been administered, the likelihood of detecting abnormalities relevant to the patients condition would have been substantially decreased. CT scan was performed according to ALARA (as low as reasonable achievable). COMPARISON: No FINDINGS: Mucosal thickening in bilateral maxillary and anterior ethmoidal air cells. Included intracranial substances, orbits, and rest of the paranasal sinuses are grossly unremarkable. Nasopharynx, oropharynx, oral cavity, hypopharynx and larynx are grossly unremarkable. Few tonsilloliths in right tonsillar crypts. Parotid, submandibular and thyroid glands are grossly unremarkable. Scattered bilateral jugulo-digastric lymph nodes are present however, none are pathologically enlarged. Visualized included lung apices are grossly clear, and no acute osseous abnormality detected. IMPRESSION: 1. Mucosal thickening in bilateral maxillary and anterior ethmoidal air cells. 2. Few tonsilloliths in right tonsillar crypts. 3. No other significant abnormality detected. Electronically signed by Bryan Antonio 04-08-2024 03:40 AM
[2024-04-08] MEDS: traZODone HCL 100 MG TAB PO SCH (20:57)
[2024-04-08] MEDS: LORazepam 2 MG/1 ML VIAL IV STA (23:08)
[2024-04-08] MEDS: GADOBUTROL 65ML VIAL IV ONE (23:44)
--- NOTE | 2024-04-09 02:42 | Magnetic Resonance Report ---
Exam(s): MRI HEAD W/WO Contrast IV Amt: 9cc gadavist EXAM: MR Head Without and With Intravenous Contrast CLINICAL HISTORY: Reason for exam: dizziness. TECHNIQUE: Magnetic resonance images of the head/brain without and with intravenous contrast in multiple planes. CONTRAST: Patient received 9cc gadavist of IV contrast COMPARISON: Prior head CT from April 07, 2024. FINDINGS: Brain: Mild to moderate nonspecific white matter changes. The flow voids at the base of the brain are intact. No mass. No hemorrhage. No acute infarct. No evidence of abnormal enhancement. The dural venous sinuses are patent. Ventricles: Unremarkable. No ventriculomegaly. Bones/joints: Unremarkable. No acute fracture. Sinuses: Chronic maxillary, ethmoid and left frontal sinusitis. No acute sinusitis. Mastoid air cells: Unremarkable as visualized. No mastoid effusion. Orbits: Right lens replacement. IMPRESSION: No evidence of acute intracranial pathology. Electronically signed by: Shanae Cardoso MD 04/09/24 02:41 AM
[2024-04-09] MEDS: HYDROmorphone INJ 0.5 MG/0.5 ML SYR IV PRN (02:56)
[2024-04-09 06:48] LABS: Hematocrit (blood only) 34.7 % (42.0-52.0); Hemoglobin 12.3 g/dl (14.0-18.0); Mean Corpuscular Hemoglobin 34.3 pg (25.0-34.0); Mean Corpuscular Hgb Conc 35.4 g/dL (32.0-36.0); Mean Corpuscular Volume 96.7 fL (80.0-100.0); Mean Platelet Volume 11.7 fL (9.4-12.4); Platelet Count 94 K/uL (130-400); RDW Standard Deviation 49.6 fL (36.4-46.3); Red Blood Count 3.59 M/uL (4.70-6.10)
[2024-04-09 06:49] LABS: Basophils # (auto) 0.03 K/uL (0.00-0.20); Basophils % (auto) 0.2 %; Eosinophils # (auto) 0.47 K/uL (0.00-0.50); Immature Granulocytes # (auto) 0.18 K/uL (0.01-0.20); Immature Granulocytes % (auto) 1.2 %; Lymphocytes # (auto) 2.37 K/uL (1.20-3.40); Lymphocytes % (auto) 15.3 %; Monocytes # (auto) 1.64 K/uL (0.11-0.59); Monocytes % (auto) 10.6 %; Neutrophils # (auto) 10.81 K/uL (1.40-6.50); Neutrophils % (auto) 69.7 %; Platelet Estimate Decreased (Normal)
[2024-04-09 08:20] LABS: Albumin Level 2.7 gm/dl (3.4-5.0); Bilirubin,Total 2.1 mg/dl (0.2-1.0); Calcium 7.9 mg/dl (8.6-10.3); Magnesium 1.9 mg/dl (1.7-2.4); Potassium 5.3 mmol/L (3.5-5.1)
[2024-04-09 08:26] LABS: Albumin Globulin Ratio 0.8 (0.9-2); BUN Creatinine Ratio 24.3 (10-20); Creatinine Clr Calc Pharmacy 49.9 ml/min; Globulin 3.2 gm/dl (2.5-4.0); Phosphorus 2.5 mg/dl (2.5-4.9); Total Protein 5.9 gm/dl (6.0-8.3)
--- NOTE | 2024-04-09 10:32 | Hospitalist Progress Note ---
Date of Service April 09, 2024 Assessment & Plan (1) Dizziness: Plan Patient is a 73-year-old male with Medical history significant for chronic diastolic heart failure (EF 60 %, TTE 2023), valvular heart disease (mild MR/TR), hypertension, ILD, history endocarditis, DM2 on oral medications, CRI (baseline creatinine 1.5), chronic anemia (baseline hemoglobin 11-13), NAFLD cirrhosis, prostate cancer, chronic back pain on narcotics, past tobacco abuse presenting with concern for dizziness once more. Dizziness Bradycardia Abnormal orthostatic vitals from last admission Hypotension on recent outpatient PCP visit Possible autonomic neuropathy given history DM ?Symptomatic bradycardia - of metoprolol on hold and it persists. Question of whether patient's oxycodone 10 mg p.o. 4 times daily is playing a role. Head CT unremarkable telemetry monitoring repeat orthostatic vitals positive, will defer on midodrine at this time as patient's blood pressure actually on the higher side hold home antihypertensives and diuretics MRI of the brain ordered, Unremarkable given concern for patient's oxycodone 10 mg p.o. 4 times daily D daily scheduled playing a role with his bradycardia and dizziness, pain management consult was placed for further recommendations or alternatives for pain management. continue to monitor Possible sepsis marked leukocytosis (patient recently on steroids) elevated procalcitonin rule out biliary and ENT source given abnormal LFTs and sore throat complaints CT soft tissue neck noting mucosal sinus thickening CT abdomen pelvis noting concern for perinephric stranding bilaterally and ci rrhosis COVID still positive UA unremarkable for infection Blood cultures NGTD Continue to monitor Acute Kidney Injury on CKD secondary to illness creatinine elevated at 1.72, known history of CKD Creatinine was 1.38 on March 28 Received fluids Improving CIrrhosis Elevated LFTs CT abdomen pelvis concerning for cirrhosis Patient denies alcohol use Likely nonalcoholic fatty liver disease GI consulted, appreciate recs Chronic Medial problems: chronic diastolic heart failure, patient on the dry side DM2 on oral medications, well-controlled as of recent hemoglobin A1c of 5.28 December 2023. ISS in hospital chronic anemia, hemoglobin at baseline prostate cancer status post surgery past tobacco abuse Diet: HH/DMII DVT prophylaxis. SCDs Full code Admission and Anticipated Discharge Date Admission Date: April 08, 2024 Subjective patient was seen laying in bed States he is feeling better but still in chronic pain Noting that he feels dizzy still bradycardic, concerned that it might be related to his use of oxycodone high doses Review of Systems Review of Systems: All systems reviewed & are unremarkable except as noted in Subjective Physical Exam Physical Exam: General: Alert, oriented. No acute distress Psych: Appropriate mood and affect HEENT: NC/AT CV: RRR, +mumur Resp: Breath sounds clear bilaterally, no increased effort of breathing Abdomen: Soft, nontender Extremities: No edema in lower extremities bilaterally. Results & Data Results & Data Vital Signs (Past 12 Hours) Vital Signs Temp Pulse Pulse Resp BP BP Pulse Ox 04/09/24 09:24 04/09/24 07:38 67 04/09/24 07:27 36.8 C 65 18 146/62 H 95 04/09/24 04:17 37.0 C 63 18 163/51 H 95 04/08/24 22:44 37.4 C 58 L 17 167/69 H 96 O2 Del Method 04/09/24 09:24 Room Air 04/09/24 07:38 04/09/24 07:27 Room Air 04/09/24 04:17 Room Air 04/08/24 22:44 Room Air
--- NOTE | 2024-04-09 12:51 | Gastroenterology Progress Note ---
Date of Service April 09, 2024 Assessment & Plan (1) Cirrhosis: Plan: He may have had some spike in his LFTs secondary to covid infection. they seem stable/improved now. He follows with [facility] on his cirrhosis and would recommend he continue to follow with them as an outpatient. Admission and Anticipated Discharge Date Admission Date: April 08, 2024 Supervising Physician Co-Signing Physician Notes Agree with above. Follow liver function test at this time. 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 he tells me he has a long history of cirrhosis and follows with [facility] per patient. LFTs slightly improved. t bili stable. 04/09 T bili 2.1, AST 50, ALT 68, Alk phos 163. Review of Systems Review of Systems: All systems reviewed & are unremarkable except as noted in HPI & below Physical Exam Constitutional: WD/WN, vitals as above Respiratory: normal respiratory effort, lungs clear to auscultation Cardiovascular: Rate/Rhythm: regular rate and regular rhythm Gastrointestinal (Abdomen): normal bowel sounds, soft, nontender, no hepatosplenomegaly Psychiatric: Orientation: alert and oriented x 3 Affect: euthymic affect Results & Data Results & Data Vital Signs (Past 12 Hours) Vital Signs Temp Pulse Pulse Resp BP BP Pulse Ox 04/09/24 11:21 99.7 F H 59 L 18 143/65 H 96 04/09/24 09:24 04/09/24 07:38 67 04/09/24 07:27 98.2 F 65 18 146/62 H 95 04/09/24 04:17 98.6 F 63 18 163/51 H 95 O2 Del Method 04/09/24 11:21 Room Air 04/09/24 09:24 Room Air 04/09/24 07:38 04/09/24 07:27 Room Air 04/09/24 04:17 Room Air Coding Level of Care Code 00375 SUB INP/OBS CARE 04/21MIN Diagnoses Cirrhosis K74.60
[2024-04-10 06:26] LABS: Hematocrit (blood only) 33.3 % (42.0-52.0); Hemoglobin 11.6 g/dl (14.0-18.0); Mean Corpuscular Hemoglobin 33.4 pg (25.0-34.0); Red Blood Count 3.47 M/uL (4.70-6.10); White Blood Count 12.13 K/ul (4.8-10.8)
[2024-04-10 06:27] LABS: Basophils # (auto) 0.02 K/uL (0.00-0.20); Basophils % (auto) 0.2 %; Eosinophils # (auto) 0.51 K/uL (0.00-0.50); Eosinophils % (auto) 4.2 %; Immature Granulocytes # (auto) 0.05 K/uL (0.01-0.20); Immature Granulocytes % (auto) 0.4 %; Lymphocytes # (auto) 2.18 K/uL (1.20-3.40); Mean Corpuscular Hgb Conc 34.8 g/dL (32.0-36.0); Mean Platelet Volume 11.1 fL (9.4-12.4); Monocytes # (auto) 1.53 K/uL (0.11-0.59); Monocytes % (auto) 12.6 %; Neutrophils # (auto) 7.84 K/uL (1.40-6.50); Neutrophils % (auto) 64.6 %; Platelet Count 115 K/uL (130-400); RDW Standard Deviation 49.4 fL (36.4-46.3)
--- NOTE | 2024-04-10 06:41 | Electrocardiogram Report ---
Test Reason : Blood Pressure : */* mmHG Vent. Rate : 56 BPM Atrial Rate : 56 BPM P-R Int : 184 ms QRS Dur : 100 ms QT Int : 416 ms P-R-T Axes : 43 -27 38 degrees QTcB Int : 401 ms Sinus bradycardia Moderate voltage criteria for LVH, may be normal variant ( R in aVL , Dre product ) Borderline ECG When compared with ECG of 26-Mar-2024 18:48, No significant change was found Confirmed by Ulisses Su ([id number]) on 04/10/2024 6:41:31 AM Referred By: Confirmed By: Ulisses Su
[2024-04-10 06:57] LABS: Albumin Globulin Ratio 0.7 (0.9-2); Albumin Level 2.4 gm/dl (3.4-5.0); Bilirubin,Total 1.5 mg/dl (0.2-1.0); Calcium 8.2 mg/dl (8.6-10.3); Creatinine Clr Calc Pharmacy 50.9 ml/min; Globulin 3.3 gm/dl (2.5-4.0); Magnesium 1.8 mg/dl (1.7-2.4); Phosphorus 3.3 mg/dl (2.5-4.9); Potassium 4.6 mmol/L (3.5-5.1); Total Protein 5.7 gm/dl (6.0-8.3)
--- NOTE | 2024-04-10 09:30 | Pain Management Consultation ---
Date of Consultation April 10, 2024 Assessment & Plan (1) Opioid type dependence, unspecified: Substance use status: uncomplicated Qualified Code(s): F11.20 - Opioid dependence, uncomplicated (2) Dizziness: (3) COVID-19: (4) Generalized weakness: (5) Previous back surgery: Plan Mr. Munoz has chronically been on Oxycodone 10mg four times daily for the past 15+ years. No recent changes to dosage or frequency of the medication. Highly unlikely that Oxycodone is the cause to the patient's recent dizziness and bradycardia so no changes are recommended. With patient's known kidney disease and cirrhosis he is not to take any NSAIDs or APAP. Could consider decreasing the Oxycodone dosage. If Oxycodone needed to be changed to a different pain medication, could consider Fentanyl patch. Thank you for the consultation. History of Present Illness Reason for Consultation: Dizziness and bradycardia Attending Physician: Rosanne Fonseca MD History of Present Illness Mr. Munoz is a 73-year-old male with a significant history of chronic diastolic heart failure, valvular heart disease, hypertension, diabetes mellitus, chronic kidney disease, cirrhosis, and chronic back pain. He does have a prior lumbar surgery and has chronically been on oxycodone 10 mg 4 times daily for the past 15+ years that is prescribed by his PCP. He was admitted to the [facility] about 2 weeks ago and diagnosed with COVID illness that was causing dizziness. He was discharged home on Decadron. Continues to experience dizziness, lightheadedness and bradycardia. He denies any recent changes to his opioid medication. Case discussed with Dr. Summers Allergies Allergy/AdvReac Type Severity Reaction Status Date / Time No Known Allergies Allergy Verified 03/26/24 22:47 Home Medications Medication Instructions Recorded Confirmed Type oxycodone 10 mg tablet 10 mg PO QID 01/02/22 04/08/24 History trazodone 100 mg tablet 100 mg PO HS 01/02/22 04/08/24 History metoprolol succinate 25 mg 12.5 mg PO QAM 01/15/23 04/08/24 History tablet,extended release 24 hr citalopram 20 mg tablet 20 mg PO QAM 03/26/24 04/08/24 History dextromethorphan-guaifenesin 30 1 tab PO BID PRN cough #14 tabs 03/29/24 04/08/24 Rx mg-600 mg tablet extended hr (Mucinex DM) furosemide 40 mg tablet 40 mg PO UD 04/08/24 04/08/24 History Patient History Medical History Anemia Cirrhosis H/O endocarditis DMII (diabetes mellitus, type 2) CKD (chronic kidney disease), stage III Hypertensive urgency Acute decompensated heart failure Opioid type dependence, unspecified Social History Smoking Status: Former smoker Tobacco Type: Cigarettes Cigarettes Per Day: 15; Second Hand Exposure: No; Do You Dip or Chew Tobacco: No; Hx Alcohol Use: No Hx Substance Use: No Preferred Language: Micronesian Communication Ability: Effective Commodity Director Required: No Beliefs That Will Affect Care: None marital status: Current Living Situation: Alone Other Information That Helps Us Care for You: No Feels Safe at Home: Yes Safety Concerns: Feels Safe At This Time Assistive Devices: None Physical Exam Physical Exam: GENERAL: This is a 73 year old male in no acute distress. HEAD/FACE: Normocephalic and atraumatic. EYES: No drainage or conjunctival injection. ENT: Nose without bleeding or discharge. Oral mucosa moist. NECK: Full ROM without apparent pain. No swelling or masses noted. RESPIRATORY: Patient with unlabored breathing. No signs of respiratory distress. CHEST/AXILLA: Chest movement symmetrical. No deformities noted. ABDOMEN/GI: No distension BACK: Moves without difficulty SKIN: [place], warm and dry. No rash noted. MS/EXTREMITY: No swelling, no deformities. Moving extremities appropriately. NEURO: Alert and appears oriented. Speech is fluent. Cranial Nerves are grossly intact. PSYCH: Alert, pleasant, affect is calm
--- NOTE | 2024-04-10 12:30 | Hospitalist Progress Note ---
Date of Service April 10, 2024 Assessment & Plan (1) Dizziness: Plan Patient is a 73-year-old male with Medical history significant for chronic diastolic heart failure (EF 60 %, TTE 2023), valvular heart disease (mild MR/TR), hypertension, ILD, history endocarditis, DM2 on oral medications, CRI (baseline creatinine 1.5), chronic anemia (baseline hemoglobin 11-13), NAFLD cirrhosis, prostate cancer, chronic back pain on narcotics, past tobacco abuse presenting with concern for dizziness once more. Dizziness Bradycardia Abnormal orthostatic vitals from last admission Hypotension on recent outpatient PCP visit Possible autonomic neuropathy given history DM ?Symptomatic bradycardia - of metoprolol on hold and it persists. Question of whether patient's oxycodone 10 mg p.o. 4 times daily is playing a role. Head CT unremarkable telemetry monitoring repeat orthostatic vitals positive, will defer on midodrine at this time as patient's blood pressure actually on the higher side hold home antihypertensives and diuretics MRI of the brain ordered, Unremarkable given concern for patient's oxycodone 10 mg p.o. 4 times daily D daily scheduled playing a role with his bradycardia and dizziness, pain management consult was placed for further recommendations or alternatives for pain management. continue to monitor 04/10/24- oxycodone dose decreased to 7.5mg QID to see if there is improvement in dizziness and bradycardia. PT/OT orders also placed, consider Isaías altman for possible benefit Possible sepsis marked leukocytosis (patient recently on steroids) elevated procalcitonin rule out biliary and ENT source given abnormal LFTs and sore throat complaints CT soft tissue neck noting mucosal sinus thickening CT abdomen pelvis noting concern for perinephric stranding bilaterally and cirrhosis COVID still positive UA unremarkable for infection Blood cultures NGTD Continue to monitor Acute Kidney Injury on CKD secondary to illness creatinine elevated at 1.72, known history of CKD Creatinine was 1.38 on March 28 Received fluids Improving Cirrhosis Elevated LFTs CT abdomen pelvis concerning for cirrhosis Patient denies alcohol use Likely nonalcoholic fatty liver disease GI consulted, appreciate recs Chronic Medial problems: chronic diastolic heart failure, patient on the dry side DM2 on oral medications, well-controlled as of recent hemoglobin A1c of 5.28 December 2023. ISS in hospital chronic anemia, hemoglobin at baseline prostate cancer status post surgery past tobacco abuse Diet: HH/DMII DVT prophylaxis. SCDs Full code Admission and Anticipated Discharge Date Admission Date: April 09, 2024 Subjective patient was seen laying in bed States he is feeling better but still in chronic pain Noting that he still feels dizzy still bradycardic Review of Systems Review of Systems: All systems reviewed & are unremarkable except as noted in Subjective Physical Exam Physical Exam: General: Alert, oriented. No acute distress Psych: Appropriate mood and affect HEENT: NC/AT CV: RRR, +mumur Resp: Breath sounds clear bilaterally, no increased effort of breathing Abdomen: Soft, nontender Extremities: No edema in lower extremities bilaterally. Results & Data Results & Data Vital Signs (Past 12 Hours) Vital Signs Temp Pulse Pulse Resp BP BP Pulse Ox 04/10/24 11:41 37.1 C 58 L 18 161/66 H 95 04/10/24 09:18 04/10/24 07:37 36.7 C 57 L 18 126/65 96 04/10/24 07:28 52 L 04/10/24 03:21 36.6 C 47 L 20 122/68 95 O2 Del Method 04/10/24 11:41 Room Air 04/10/24 09:18 Room Air 04/10/24 07:37 Room Air 04/10/24 07:28 04/10/24 03:21 Room Air
[2024-04-10] MEDS: oxyCODONE HCL IR 5 MG TAB (IMMEDIATE RELEASE) ONE (16:00)
[2024-04-10] MEDS: oxyCODONE HCL IR 5 MG TAB (IMMEDIATE RELEASE) PO SCH (16:01)
[2024-04-10] MEDS ORDERED: oxyCODONE HCL IR 5 MG TAB (IMMEDIATE RELEASE) PO SCH (17:00)
[2024-04-10] MEDS ORDERED: BENZONATATE 100 MG CAPSULE PO PRN (19:34)
[2024-04-10] MEDS: BENZONATATE 100 MG CAPSULE PO ONE (20:01)
--- NOTE | 2024-04-10 20:24 | XRay Report ---
EXAM: XR chest 1V portable CLINICAL HISTORY: HEMOPTYSIS KFK. TECHNIQUE: An X-ray image of the chest is obtained in AP projection. COMPARISON: No prior studies are available for comparison. FINDINGS: Pulmonary inspiratory effort. Pulmonary Parenchyma: Hazy opacification of the right lower lung zone. No pulmonary nodules are identified. No evidence of pleural effusion or pleural thickening. Heart and Mediastinum: Heart size and shape are normal. No mediastinal widening or masses. No hilar or mediastinal lymphadenopathy. Bony Thorax: Right 6th and 7th ribs shows cortical irregularity likely of fractures of indeterminate age. Soft Tissues: Soft tissues overlying the chest wall are unremarkable. IMPRESSION: 1. Hazy opacification of the right lower lung zone, likely pulmonary infiltrates. Correlate clinically. 2. Right 6th and 7th ribs shows cortical irregularity likely of fractures of indeterminate age. Electronically signed by Jeffrey Pineda 04-10-2024 8:24 PM
[2024-04-10 20:25] LABS: Hematocrit (blood only) 36.5 % (42.0-52.0); Hemoglobin 12.6 g/dl (14.0-18.0)
[2024-04-10] MEDS: methylPREDNISolone 20 MG in SYRINGE 0 ML IV ONE (20:37)
--- NOTE | 2024-04-10 20:45 | Communication Note ---
Date of Service: April 10, 2024 Patient with hemoptysis episode this afternoon. Yellow-green sputum with some blood as per RN. Usual chest pain/SOB from coughing the last few weeks from COVID as per patient No aspiration concerns as per RN. Chest x-ray 1. Hazy opacification of the right lower lung zone, likely pulmonary infiltrates. Correlate clinically. 2. Right 6th and 7th ribs shows cortical irregularity likely of fractures of indeterminate age. AP Hemoptysis secondary to Hospital-acquired pneumonia Recent COVID 19 illness Patient not septic Sputum CS Solu-Medrol 1 dose Cefepime, doxycycline Antitussives CT chest, pulmonology consult if without improvement
[2024-04-10] MEDS: CEFEPIME 2000MG 2,000 MG/20 ML SYR IV SCH (21:28)
[2024-04-10] MEDS: DOXYCYCLINE HYCLATE 100 MG in DEXTROSE 5% MINI-B 100 ML IV STA (22:02)
[2024-04-11 06:12] LABS: Basophils # (auto) 0.01 K/uL (0.00-0.20); Basophils % (auto) 0.1 %; Eosinophils # (auto) 0.01 K/uL (0.00-0.50); Eosinophils % (auto) 0.1 %; Hematocrit (blood only) 36.7 % (42.0-52.0); Hemoglobin 12.8 g/dl (14.0-18.0); Immature Granulocytes # (auto) 0.03 K/uL (0.01-0.20); Immature Granulocytes % (auto) 0.4 %; Lymphocytes # (auto) 0.86 K/uL (1.20-3.40); Mean Corpuscular Hemoglobin 33.4 pg (25.0-34.0); Mean Corpuscular Hgb Conc 34.9 g/dL (32.0-36.0); Mean Corpuscular Volume 95.8 fL (80.0-100.0); Mean Platelet Volume 11.5 fL (9.4-12.4); Monocytes # (auto) 0.21 K/uL (0.11-0.59); Monocytes % (auto) 2.7 %; Neutrophils # (auto) 6.68 K/uL (1.40-6.50); Neutrophils % (auto) 85.7 %; Platelet Count 134 K/uL (130-400); RDW Coefficient of Variation 13.7 % (11.5-14.5); RDW Standard Deviation 48.4 fL (36.4-46.3); Red Blood Count 3.83 M/uL (4.70-6.10)
[2024-04-11 06:14] LABS: Albumin Globulin Ratio 0.7 (0.9-2); Albumin Level 2.7 gm/dl (3.4-5.0); BUN Creatinine Ratio 26.6 (10-20); Bilirubin,Total 1.5 mg/dl (0.2-1.0); Calcium 8.3 mg/dl (8.6-10.3); Creatinine Clr Calc Pharmacy 55.8 ml/min; Globulin 4.1 gm/dl (2.5-4.0); Phosphorus 2.6 mg/dl (2.5-4.9); Potassium 5.4 mmol/L (3.5-5.1); Total Protein 6.8 gm/dl (6.0-8.3)
[2024-04-11] MEDS: DOXYCYCLINE HYCLATE 100 MG CAP PO SCH (07:35)
--- NOTE | 2024-04-11 16:07 | Hospitalist Progress Note ---
Date of Service April 11, 2024 Assessment & Plan (1) Dizziness: Plan: Current Inpatient Medications Acetaminophen (Acetaminophen 500 Mg Tab) 500 mg PO Q6H PRN PRN Reason: fever/pain Stop: 05/08/24 01:22 Last Admin: 04/11/24 00:31 Dose: 500 mg Benzonatate (Benzonatate 100 Mg Capsule) 100 mg PO TID PRN PRN Reason: Cough Stop: 05/10/24 19:33 Dextrose (Dextrose 50% 50 Ml Syringe) 25 - 50 ml IV UD PRN; Protocol PRN Reason: Hypoglycemia Protocol Stop: 05/08/24 03:26 Doxycycline Hyclate (Doxycycline Hyclate 100 Mg Cap) 100 mg PO BID [facility] Stop: 04/16/24 08:59 Last Admin: 04/11/24 07:35 Dose: 100 mg Glucagon (Glucagon For Inj 1 Mg Vial) 1 mg SQ UD PRN; Protocol PRN Reason: Hypoglycemia Protocol Stop: 05/08/24 03:26 Glucose (Glucose 40% Gel 15 Gm Tube) 15 - 30 gm PO UD PRN; Protocol PRN Reason: Hypoglycemia Protocol Stop: 05/08/24 03:26 Glucose (Glucose 10 Tab/Tube) 4 - 8 tab PO UD PRN; Protocol PRN Reason: Hypoglycemia Protocol Stop: 05/08/24 03:26 Hydromorphone HCl (Hydromorphone Inj 0.5 Mg/0.5 Ml Syr) 0.25 mg IV Q4H PRN PRN Reason: Pain Stop: 04/22/24 01:22 Last Admin: 04/09/24 02:56 Dose: 0.25 mg Promethazine HCl (Phenergan) 6.25 mg in 50.25 mls @ 201 mls/hr IV Q6H PRN PRN Reason: Nausea And Vomiting Stop: 05/08/24 01:22 Cefepime HCl (Maxipime 2000mg) 2,000 mg in 20 mls @ 5 mls/min IV Q12H [facility]; Protocol Stop: 04/17/24 20:59 Last Admin: 04/11/24 09:06 Dose: 5 mls/min Insulin Aspart (Insulin Aspart Per Unit Charge) 0 units SC ACHS [facility] Stop: 05/08/24 20:59 Last Admin: 04/11/24 12:40 Dose: 6 units Lorazepam (Lorazepam 0.5 Mg Tab) 0.5 mg PO TID PRN PRN Reason: Anxiety Stop: 05/08/24 01:23 Miscellaneous (Carbohydrates For Hypoglycemia ) 15 - 30 gm PO UD PRN PRN Reason: Hypoglycemia Protocol Stop: 05/08/24 03:26 Oxycodone HCl (Oxycodone Hcl Ir 5 Mg Tab (Immediate Release)) 7.5 mg PO QID@0800,1200,1700,2100 [facility] Stop: 04/24/24 16:59 Last Admin: 04/11/24 11:40 Dose: 7.5 mg Trazodone HCl (Trazodone Hcl 100 Mg Tab) 100 mg PO HS [facility] Stop: 05/08/24 20:59 Last Admin: 04/10/24 20:38 Dose: 100 mg Plan Patient is a 73-year-old male with Medical history significant for chronic diastolic heart failure (EF 60 %, TTE 2023), valvular heart disease (mild MR/TR), hypertension, ILD, history endocarditis, DM2 on oral medications, CRI (baseline creatinine 1.5), chronic anemia (baseline hemoglobin 11-13), NAFLD cirrhosis, prostate cancer, chronic back pain on narcotics, past tobacco abuse presenting with concern for dizziness once more. Dizziness Bradycardia Abnormal orthostatic vitals from last admission Hypotension on recent outpatient PCP visit Possible autonomic neuropathy given history DM ?Symptomatic bradycardia - of metoprolol on hold and it persists. Question of whether patient's oxycodone 10 mg p.o. 4 times daily is playing a role. Head CT unremarkable telemetry monitoring repeat orthostatic vitals positive, will defer on midodrine at this time as patient's blood pressure actually on the higher side hold home antihypertensives and diuretics MRI of the brain ordered, Unremarkable given concern for patient's oxycodone 10 mg p.o. 4 times daily D daily scheduled playing a role with his bradycardia and dizziness, pain management consult was placed for further recommendations or alternatives for pain management. continue to monitor 04/10/24- oxycodone dose decreased to 7.5mg QID to see if there is improvement in dizziness and bradycardia. PT/OT orders also placed, consider Isaías altman for possible benefit Will decrease the dose of oxycodone to 5 mg 4 times daily Strongly advised to drink more fluid and will start small dose of midodrine He was advised to take some time to initiate any sort of activity Hospital-acquired pneumonia Has had hemoptysis last evening with yellow-green sputum Chest x-ray showed hazy opacification of the right lower lung zone Started on intravenous cefepime and doxycycline Possible sepsis marked leukocytosis (patient recently on steroids) elevated procalcitonin rule out biliary and ENT source given abnormal LFTs and sore throat complaints CT soft tissue neck noting mucosal sinus thickening CT abdomen pelvis noting concern for perinephric stranding bilaterally and cirrhosis COVID still positive UA unremarkable for infection Blood cultures NGTD Continue to monitor Acute Kidney Injury on CKD secondary to illness creatinine elevated at 1.72, known history of CKD Creatinine was 1.38 on March 28 Received fluids Improving Cirrhosis Elevated LFTs CT abdomen pelvis concerning for cirrhosis Patient denies alcohol use Likely nonalcoholic fatty liver disease GI consulted, appreciate recs Chronic Medial problems: chronic diastolic heart failure, patient on the dry side DM2 on oral medications, well-controlled as of recent hemoglobin A1c of 5.28 December 2023. ISS in hospital chronic anemia, hemoglobin at baseline prostate cancer status post surgery past tobacco abuse Diet: HH/DMII DVT prophylaxis. SCDs Full code Admission and Anticipated Discharge Date Admission Date: April 09, 2024 Subjective 04/11/2024 The patient was seen and examined in medical telemetry unit in presence of the He has been complaining of dizziness especially when up and about Denies any other symptoms with it Review of Systems Review of Systems: All systems reviewed and are unremarkable except as noted below Physical Exam Physical Exam: Sitting on a chair without any acute distress Constitutional: well developed, well nourished, + ill appearing and average body habitus Eyes: PERRL, conjunctivae normal, anicteric sclerae ENMT: external ear and nose normal, oropharynx normal Neck: trachea midline, no thyromegaly Respiratory: no respiratory distress Auscultation: lungs clear to auscultation bilaterally Cardiovascular: Rate/Rhythm: regular rate and regular rhythm; not tachycardic Heart Sounds: normal S1 and normal S2; no murmur Extremities: no edema Gastrointestinal (Abdomen): Inspection/Auscultation: normal bowel sounds; abdomen not distended Percussion/Palpation: abdomen soft; abdomen nontender Musculoskeletal: No acute arthritis involving any of the joint Neurologic: normal touch/pain/proprioception and moves all extremities; no focal motor deficits Lymphatic: no cervical or axillary lymphadenopathy Results & Data Results & Data Vital Signs (Past 12 Hours) Vital Signs Temp Pulse Pulse Resp BP Pulse Ox O2 Del Method 04/11/24 15:36 36.8 C 66 18 122/73 98 Room Air 04/11/24 13:03 76 04/11/24 12:18 Room Air 04/11/24 07:49 36.4 C L 52 L 18 133/64 96 Room Air 04/11/24 05:45 46 L Diagnostic Findings Short CBC 04/10/24 04/11/24 Range/Units 19:59 05:28 WBC 7.80 (4.8-10.8) K/ul Hgb 12.6 L 12.8 L (14.0-18.0) g/dl Hct 36.5 L 36.7 L (42.0-52.0) % Plt Count 134 (130-400) K/uL BMP 04/11/24 05:28 Sodium 131 L Potassium 5.4 H Chloride 107 Carbon Dioxide 21 BUN 34 H Creatinine 1.28 Glucose 162 H Calcium 8.3 L Liver Function 04/11/24 Range/Units 05:28 Total Bilirubin 1.5 H (0.2-1.0) mg/dl AST 46 H (13-39) U/L ALT 54 H (7-52) U/L Alkaline Phosphatase 267 H (34-104) U/L Albumin 2.7 L (3.4-5.0) gm/dl
[2024-04-11] MEDS: oxyCODONE HCL IR 5 MG TAB (IMMEDIATE RELEASE) PO SCH ×2 (17:00→20:39)
[2024-04-11] MEDS: MIDODRINE HCL 2.5 MG TAB PO SCH (17:03)
--- NOTE | 2024-04-12 15:48 | Hospitalist Progress Note ---
Date of Service April 12, 2024 Assessment & Plan (1) Dizziness: Plan: Current Inpatient Medications Acetaminophen (Acetaminophen 500 Mg Tab) 500 mg PO Q6H PRN PRN Reason: fever/pain Stop: 05/08/24 01:22 Last Admin: 04/11/24 00:31 Dose: 500 mg Benzonatate (Benzonatate 100 Mg Capsule) 100 mg PO TID PRN PRN Reason: Cough Stop: 05/10/24 19:33 Dextrose (Dextrose 50% 50 Ml Syringe) 25 - 50 ml IV UD PRN; Protocol PRN Reason: Hypoglycemia Protocol Stop: 05/08/24 03:26 Doxycycline Hyclate (Doxycycline Hyclate 100 Mg Cap) 100 mg PO BID KARLO Stop: 04/16/24 08:59 Last Admin: 04/11/24 07:35 Dose: 100 mg Glucagon (Glucagon For Inj 1 Mg Vial) 1 mg SQ UD PRN; Protocol PRN Reason: Hypoglycemia Protocol Stop: 05/08/24 03:26 Glucose (Glucose 40% Gel 15 Gm Tube) 15 - 30 gm PO UD PRN; Protocol PRN Reason: Hypoglycemia Protocol Stop: 05/08/24 03:26 Glucose (Glucose 10 Tab/Tube) 4 - 8 tab PO UD PRN; Protocol PRN Reason: Hypoglycemia Protocol Stop: 05/08/24 03:26 Hydromorphone HCl (Hydromorphone Inj 0.5 Mg/0.5 Ml Syr) 0.25 mg IV Q4H PRN PRN Reason: Pain Stop: 04/22/24 01:22 Last Admin: 04/09/24 02:56 Dose: 0.25 mg Promethazine HCl (Phenergan) 6.25 mg in 50.25 mls @ 201 mls/hr IV Q6H PRN PRN Reason: Nausea And Vomiting Stop: 05/08/24 01:22 Cefepime HCl (Maxipime 2000mg) 2,000 mg in 20 mls @ 5 mls/min IV Q12H [facility]; Protocol Stop: 04/17/24 20:59 Last Admin: 04/11/24 09:06 Dose: 5 mls/min Insulin Aspart (Insulin Aspart Per Unit Charge) 0 units SC ACHS [facility] Stop: 05/08/24 20:59 Last Admin: 04/11/24 12:40 Dose: 6 units Lorazepam (Lorazepam 0.5 Mg Tab) 0.5 mg PO TID PRN PRN Reason: Anxiety Stop: 05/08/24 01:23 Miscellaneous (Carbohydrates For Hypoglycemia ) 15 - 30 gm PO UD PRN PRN Reason: Hypoglycemia Protocol Stop: 05/08/24 03:26 Oxycodone HCl (Oxycodone Hcl Ir 5 Mg Tab (Immediate Release)) 7.5 mg PO QID@0800,1200,1700,2100 [facility] Stop: 04/24/24 16:59 Last Admin: 04/11/24 11:40 Dose: 7.5 mg Trazodone HCl (Trazodone Hcl 100 Mg Tab) 100 mg PO HS [facility]LO Stop: 05/08/24 20:59 Last Admin: 04/10/24 20:38 Dose: 100 mg Plan Patient is a 73-year-old male with Medical history significant for chronic diastolic heart failure (EF 60 %, TTE 2023), valvular heart disease (mild MR/TR), hypertension, ILD, history endocarditis, DM2 on oral medications, CRI (baseline creatinine 1.5), chronic anemia (baseline hemoglobin 11-13), NAFLD cirrhosis, prostate cancer, chronic back pain on narcotics, past tobacco abuse presenting with concern for dizziness once more. Dizziness Bradycardia Abnormal orthostatic vitals from last admission Hypotension on recent outpatient PCP visit Possible autonomic neuropathy given history DM ?Symptomatic bradycardia - of metoprolol on hold and it persists. Question of whether patient's oxycodone 10 mg p.o. 4 times daily is playing a role. Head CT unremarkable telemetry monitoring repeat orthostatic vitals positive, will defer on midodrine at this time as patient's blood pressure actually on the higher side hold home antihypertensives and diuretics MRI of the brain ordered, Unremarkable given concern for patient's oxycodone 10 mg p.o. 4 times daily D daily scheduled playing a role with his bradycardia and dizziness, pain management consult was placed for further recommendations or alternatives for pain management. continue to monitor 04/10/24- oxycodone dose decreased to 7.5mg QID to see if there is improvement in dizziness and bradycardia. PT/OT orders also placed, consider Isaías altman for possible benefit Will decrease the dose of oxycodone to 5 mg 4 times daily Strongly advised to drink more fluid and will start small dose of midodrine He was advised to take some time to initiate any sort of activity Dizziness seems to be improving on midodrine He was advised to participate in physical therapy likely discharge tomorrow Hospital-acquired pneumonia Has had hemoptysis last evening with yellow-green sputum Chest x-ray showed hazy opacification of the right lower lung zone Started on intravenous cefepime and doxycycline Denies any respiratory symptoms, no cough and no shortness of Narcotic pain medication dependence He has been getting 10 mg oxycodone 4 times daily regularly We have tried to reduce the doses in the hospital but his pain flared up His medications is managed by his PCP and he did not want us to change anything on that He is back on his oxycodone from this morning He was told that his dizziness could be due to narcotic use and so his bradycardia Possible sepsis marked leukocytosis (patient recently on steroids) elevated procalcitonin rule out biliary and ENT source given abnormal LFTs and sore throat complaints CT soft tissue neck noting mucosal sinus thickening CT abdomen pelvis noting concern for perinephric stranding bilaterally and cirrhosis COVID still positive UA unremarkable for infection Blood cultures NGTD Continue to monitor Acute Kidney Injury on CKD secondary to illness creatinine elevated at 1.72, known history of CKD Creatinine was 1.38 on March 28 Received fluids Improving Advised to drink more fluid Cirrhosis Elevated LFTs CT abdomen pelvis concerning for cirrhosis Patient denies alcohol use Likely nonalcoholic fatty liver disease GI consulted, appreciate recs Chronic Medial problems: chronic diastolic heart failure, patient on the dry side DM2 on oral medications, well-controlled as of recent hemoglobin A1c of 5.28 December 2023. ISS in hospital chronic anemia, hemoglobin at baseline prostate cancer status post surgery past tobacco abuse Diet: HH/DMII DVT prophylaxis. SCDs Full code Admission and Anticipated Discharge Date Admission Date: April 09, 2024 Subjective 04/11/2024 The patient was seen and examined in medical telemetry unit in presence of the He has been complaining of dizziness especially when up and about Denies any other symptoms with it 04/12/2024 The patient was seen and examined in medical telemetry unit in presence of the His pain medications was reduced but required to be back to his original dose to control pain His dizziness is improving on midodrine Review of Systems Review of Systems: All systems reviewed and are unremarkable except as noted below Physical Exam Physical Exam: Sitting on a chair without any acute distress Constitutional: well developed, well nourished, + ill appearing and average body habitus Eyes: PERRL, conjunctivae normal, anicteric sclerae ENMT: external ear and nose normal, oropharynx normal Neck: trachea midline, no thyromegaly Respiratory: no respiratory distress Auscultation: lungs clear to auscultation bilaterally Cardiovascular: Rate/Rhythm: regular rate and regular rhythm; not tachycardic Heart Sounds: normal S1 and normal S2; no murmur Extremities: no edema Gastrointestinal (Abdomen): Inspection/Auscultation: normal bowel sounds; abdomen not distended Percussion/Palpation: abdomen soft; abdomen nontender Neurologic: normal touch/pain/proprioception and moves all extremities; no focal motor deficits Lymphatic: no cervical or axillary lymphadenopathy Results & Data Results & Data Vital Signs (Past 12 Hours) Vital Signs Temp Pulse Pulse Resp BP Pulse Ox O2 Del Method 04/12/24 15:24 36.9 C 57 L 18 167/63 H 97 Room Air 04/12/24 14:43 59 L 04/12/24 11:37 37 C 58 L 18 127/62 96 Room Air 04/12/24 11:29 Room Air 04/12/24 07:39 36.6 C 59 L 18 132/61 96 Room Air 04/12/24 07:34 56 L 04/12/24 03:42 36.5 C 61 16 158/65 H 96 Room Air Medications Administered Current Inpatient Medications Acetaminophen (Acetaminophen 500 Mg Tab) 500 mg PO Q6H PRN PRN Reason: fever/pain Stop: 05/08/24 01:22 Last Admin: 04/11/24 00:31 Dose: 500 mg Benzonatate (Benzonatate 100 Mg Capsule) 100 mg PO TID PRN PRN Reason: Cough Stop: 05/10/24 19:33 Dextrose (Dextrose 50% 50 Ml Syringe) 25 - 50 ml IV UD PRN; Protocol PRN Reason: Hypoglycemia Protocol Stop: 05/08/24 03:26 Doxycycline Hyclate (Doxycycline Hyclate 100 Mg Cap) 100 mg PO BID KARLO Stop: 04/16/24 08:59 Last Admin: 04/12/24 07:56 Dose: 100 mg Glucagon (Glucagon For Inj 1 Mg Vial) 1 mg SQ UD PRN; Protocol PRN Reason: Hypoglycemia Protocol Stop: 05/08/24 03:26 Glucose (Glucose 40% Gel 15 Gm Tube) 15 - 30 gm PO UD PRN; Protocol PRN Reason: Hypoglycemia Protocol Stop: 05/08/24 03:26 Glucose (Glucose 10 Tab/Tube) 4 - 8 tab PO UD PRN; Protocol PRN Reason: Hypoglycemia Protocol Stop: 05/08/24 03:26 Hydromorphone HCl (Hydromorphone Inj 0.5 Mg/0.5 Ml Syr) 0.25 mg IV Q4H PRN PRN Reason: Pain Stop: 04/22/24 01:22 Last Admin: 04/12/24 04:49 Dose: 0.25 mg Promethazine HCl (Phenergan) 6.25 mg in 50.25 mls @ 201 mls/hr IV Q6H PRN PRN Reason: Nausea And Vomiting Stop: 05/08/24 01:22 Cefepime HCl (Maxipime 2000mg) 2,000 mg in 20 mls @ 5 mls/min IV Q12H KARLO; Protocol Stop: 04/17/24 20:59 Last Admin: 04/12/24 07:56 Dose: 5 mls/min Insulin Aspart (Insulin Aspart Per Unit Charge) 0 units SC ACHS [facility] Stop: 05/08/24 20:59 Last Admin: 04/12/24 12:53 Dose: Not Given Lorazepam (Lorazepam 0.5 Mg Tab) 0.5 mg PO TID PRN PRN Reason: Anxiety Stop: 05/08/24 01:23 Midodrine (Midodrine Hcl 2.5 Mg Tab) 2.5 mg PO TID@0800,1200,1700 [facility] Stop: 05/11/24 16:59 Last Admin: 04/12/24 12:24 Dose: 2.5 mg Miscellaneous (Carbohydrates For Hypoglycemia ) 15 - 30 gm PO UD PRN PRN Reason: Hypoglycemia Protocol Stop: 05/08/24 03:26 Oxycodone HCl (Oxycodone Hcl Ir 5 Mg Tab (Immediate Release)) 10 mg PO QID@0800,1200,1700,2100 [facility] Stop: 04/25/24 20:59 Last Admin: 04/12/24 12:25 Dose: 10 mg Trazodone HCl (Trazodone Hcl 100 Mg Tab) 100 mg PO HS [facility] Stop: 05/08/24 20:59 Last Admin: 04/11/24 20:39 Dose: 100 mg
[2024-04-12 15:52] LABS: Babesia microti DNA Not Detected (Not Detected)
[2024-04-13] MEDS: FLUDROCORTISONE ACETATE 0.1 MG TAB PO SCH (14:54)
[2024-04-13] MEDS: SODIUM CHLORIDE 0.65% NA SOLN 45 ML (OCEAN) STA (15:13)
--- NOTE | 2024-04-13 15:21 | Hospitalist Progress Note ---
Date of Service April 13, 2024 Assessment & Plan (1) Dizziness: Plan: Current Inpatient Medications Acetaminophen (Acetaminophen 500 Mg Tab) 500 mg PO Q6H PRN PRN Reason: fever/pain Stop: 05/08/24 01:22 Last Admin: 04/11/24 00:31 Dose: 500 mg Benzonatate (Benzonatate 100 Mg Capsule) 100 mg PO TID PRN PRN Reason: Cough Stop: 05/10/24 19:33 Dextrose (Dextrose 50% 50 Ml Syringe) 25 - 50 ml IV UD PRN; Protocol PRN Reason: Hypoglycemia Protocol Stop: 05/08/24 03:26 Doxycycline Hyclate (Doxycycline Hyclate 100 Mg Cap) 100 mg PO BID KARLO Stop: 04/16/24 08:59 Last Admin: 04/11/24 07:35 Dose: 100 mg Glucagon (Glucagon For Inj 1 Mg Vial) 1 mg SQ UD PRN; Protocol PRN Reason: Hypoglycemia Protocol Stop: 05/08/24 03:26 Glucose (Glucose 40% Gel 15 Gm Tube) 15 - 30 gm PO UD PRN; Protocol PRN Reason: Hypoglycemia Protocol Stop: 05/08/24 03:26 Glucose (Glucose 10 Tab/Tube) 4 - 8 tab PO UD PRN; Protocol PRN Reason: Hypoglycemia Protocol Stop: 05/08/24 03:26 Hydromorphone HCl (Hydromorphone Inj 0.5 Mg/0.5 Ml Syr) 0.25 mg IV Q4H PRN PRN Reason: Pain Stop: 04/22/24 01:22 Last Admin: 04/09/24 02:56 Dose: 0.25 mg Promethazine HCl (Phenergan) 6.25 mg in 50.25 mls @ 201 mls/hr IV Q6H PRN PRN Reason: Nausea And Vomiting Stop: 05/08/24 01:22 Cefepime HCl (Maxipime 2000mg) 2,000 mg in 20 mls @ 5 mls/min IV Q12H KARLO; Protocol Stop: 04/17/24 20:59 Last Admin: 04/11/24 09:06 Dose: 5 mls/min Insulin Aspart (Insulin Aspart Per Unit Charge) 0 units SC ACHS KARLO Stop: 05/08/24 20:59 Last Admin: 04/11/24 12:40 Dose: 6 units Lorazepam (Lorazepam 0.5 Mg Tab) 0.5 mg PO TID PRN PRN Reason: Anxiety Stop: 05/08/24 01:23 Miscellaneous (Carbohydrates For Hypoglycemia ) 15 - 30 gm PO UD PRN PRN Reason: Hypoglycemia Protocol Stop: 05/08/24 03:26 Oxycodone HCl (Oxycodone Hcl Ir 5 Mg Tab (Immediate Release)) 7.5 mg PO QID@0800,1200,1700,2100 KARLO Stop: 04/24/24 16:59 Last Admin: 04/11/24 11:40 Dose: 7.5 mg Trazodone HCl (Trazodone Hcl 100 Mg Tab) 100 mg PO HS KARLO Stop: 05/08/24 20:59 Last Admin: 04/10/24 20:38 Dose: 100 mg Plan Patient is a 73-year-old male with Medical history significant for chronic diastolic heart failure (EF 60 %, TTE 2023), valvular heart disease (mild MR/TR), hypertension, ILD, history endocarditis, DM2 on oral medications, CRI (baseline creatinine 1.5), chronic anemia (baseline hemoglobin 11-13), NAFLD cirrhosis, prostate cancer, chronic back pain on narcotics, past tobacco abuse presenting with concern for dizziness once more. Dizziness Bradycardia Abnormal orthostatic vitals from last admission Hypotension on recent outpatient PCP visit Possible autonomic neuropathy given history DM ?Symptomatic bradycardia - of metoprolol on hold and it persists. Question of whether patient's oxycodone 10 mg p.o. 4 times daily is playing a role. Head CT unremarkable telemetry monitoring repeat orthostatic vitals positive, will defer on midodrine at this time as patient's blood pressure actually on the higher side hold home antihypertensives and diuretics MRI of the brain ordered, Unremarkable given concern for patient's oxycodone 10 mg p.o. 4 times daily D daily scheduled playing a role with his bradycardia and dizziness, pain management consult was placed for further recommendations or alternatives for pain management. continue to monitor 04/10/24- oxycodone dose decreased to 7.5mg QID to see if there is improvement in dizziness and bradycardia. PT/OT orders also placed, consider Isaías altman for possible benefit Will decrease the dose of oxycodone to 5 mg 4 times daily Strongly advised to drink more fluid and will start small dose of midodrine He was advised to take some time to initiate any sort of activity Dizziness seems to be improving on midodrine He was advised to participate in physical therapy likely discharge tomorrow Remains medically stable but continues to have significant postural hypotension with symptoms of dizziness that he could not participate in physical therapy Midodrine was discontinued due to hypotension He was advised to drink more fluid and a small dose of Florinef 0.1 mg added Will ask nephrology to evaluate Hospital-acquired pneumonia Has had hemoptysis last evening with yellow-green sputum Chest x-ray showed hazy opacification of the right lower lung zone Started on intravenous cefepime and doxycycline Denies any respiratory symptoms, no cough and no shortness of Has been getting antibiotic with improvement Narcotic pain medication dependence He has been getting 10 mg oxycodone 4 times daily regularly We have tried to reduce the doses in the hospital but his pain flared up His medications is managed by his PCP and he did not want us to change anything on that He is back on his oxycodone from this morning He was told that his dizziness could be due to narcotic use and so his bradycardia He was again advised to decrease the doses of narcotic pain medication but he refused Possible sepsis marked leukocytosis (patient recently on steroids) elevated procalcitonin rule out biliary and ENT source given abnormal LFTs and sore throat complaints CT soft tissue neck noting mucosal sinus thickening CT abdomen pelvis noting concern for perinephric stranding bilaterally and cirrhosis COVID still positive UA unremarkable for infection Blood cultures NGTD Continue to monitor Acute Kidney Injury on CKD secondary to illness creatinine elevated at 1.72, known history of CKD Creatinine was 1.38 on March 28 Received fluids Improving Advised to drink more fluid Cirrhosis Elevated LFTs CT abdomen pelvis concerning for cirrhosis Patient denies alcohol use Likely nonalcoholic fatty liver disease GI consulted, appreciate recs Chronic Medial problems: chronic diastolic heart failure, patient on the dry side DM2 on oral medications, well-controlled as of recent hemoglobin A1c of 5.2 2023. ISS in hospital chronic anemia, hemoglobin at baseline prostate cancer status post surgery past tobacco abuse Diet: HH/DMII DVT prophylaxis. SCDs Full code Admission and Anticipated Discharge Date Admission Date: April 09, 2024 Subjective 04/11/2024 The patient was seen and examined in medical telemetry unit in presence of the He has been complaining of dizziness especially when up and about Denies any other symptoms with it 04/12/2024 The patient was seen and examined in medical telemetry unit in presence of the His pain medications was reduced but required to be back to his original dose to control pain His dizziness is improving on midodrine 04/13/2024 The patient was seen and examined in medical telemetry unit He has been feeling well this morning with a stuffy nose and generalized weakness He has had physical therapy but could not tolerate therapy due to significant postural hypotension with blood pressure dropping as low as systolic 50s with acute symptoms He was advised to drink more fluid and Florinef was started Will also get nephrology evaluation for any other ideas Review of Systems Review of Systems: All systems reviewed and are unremarkable except as noted below Physical Exam Physical Exam: Sitting on a chair without any acute distress Constitutional: well developed, well nourished, + ill appearing and average body habitus Eyes: PERRL, conjunctivae normal, anicteric sclerae ENMT: external ear and nose normal, oropharynx normal Neck: trachea midline, no thyromegaly Respiratory: no respiratory distress Auscultation: lungs clear to auscultation bilaterally Cardiovascular: Rate/Rhythm: regular rate and regular rhythm; not tachycardic Heart Sounds: normal S1 and normal S2; no murmur Extremities: no edema Gastrointestinal (Abdomen): Inspection/Auscultation: normal bowel sounds; abdomen not distended Percussion/Palpation: abdomen soft; abdomen nontender Neurologic: normal touch/pain/proprioception and moves all extremities; no focal motor deficits Lymphatic: no cervical or axillary lymphadenopathy Results & Data Results & Data Vital Signs (Past 12 Hours) Vital Signs Temp Pulse Pulse Resp BP BP Pulse Ox 04/13/24 14:05 69 04/13/24 11:23 36.7 C 59 L 18 163/64 H 96 04/13/24 08:00 04/13/24 07:56 37.1 C 63 18 163/61 H 96 04/13/24 07:42 56 L O2 Del Method 04/13/24 14:05 04/13/24 11:23 Room Air 04/13/24 08:00 Room Air 04/13/24 07:56 Room Air 04/13/24 07:42 Medications Administered Current Inpatient Medications Acetaminophen (Acetaminophen 500 Mg Tab) 500 mg PO Q6H PRN PRN Reason: fever/pain Stop: 05/08/24 01:22 Last Admin: 04/11/24 00:31 Dose: 500 mg Benzonatate (Benzonatate 100 Mg Capsule) 100 mg PO TID PRN PRN Reason: Cough Stop: 05/10/24 19:33 Dextrose (Dextrose 50% 50 Ml Syringe) 25 - 50 ml IV UD PRN; Protocol PRN Reason: Hypoglycemia Protocol Stop: 05/08/24 03:26 Doxycycline Hyclate (Doxycycline Hyclate 100 Mg Cap) 100 mg PO BID [facility] Stop: 04/16/24 08:59 Last Admin: 04/13/24 07:55 Dose: 100 mg Fludrocortisone Acetate (Fludrocortisone Acetate 0.1 Mg Tab) 0.1 mg PO QAM [facility] Stop: 05/13/24 13:59 Last Admin: 04/13/24 14:54 Dose: 0.1 mg Glucagon (Glucagon For Inj 1 Mg Vial) 1 mg SQ UD PRN; Protocol PRN Reason: Hypoglycemia Protocol Stop: 05/08/24 03:26 Glucose (Glucose 40% Gel 15 Gm Tube) 15 - 30 gm PO UD PRN; Protocol PRN Reason: Hypoglycemia Protocol Stop: 05/08/24 03:26 Glucose (Glucose 10 Tab/Tube) 4 - 8 tab PO UD PRN; Protocol PRN Reason: Hypoglycemia Protocol Stop: 05/08/24 03:26 Hydromorphone HCl (Hydromorphone Inj 0.5 Mg/0.5 Ml Syr) 0.25 mg IV Q4H PRN PRN Reason: Pain Stop: 04/22/24 01:22 Last Admin: 04/12/24 04:49 Dose: 0.25 mg Promethazine HCl (Phenergan) 6.25 mg in 50.25 mls @ 201 mls/hr IV Q6H PRN PRN Reason: Nausea And Vomiting Stop: 05/08/24 01:22 Cefepime HCl (Maxipime 2000mg) 2,000 mg in 20 mls @ 5 mls/min IV Q12H [facility]; Protocol Stop: 04/17/24 20:59 Last Admin: 04/13/24 07:54 Dose: 5 mls/min Insulin Aspart (Insulin Aspart Per Unit Charge) 0 units SC ACHS [facility] Stop: 05/08/24 20:59 Last Admin: 04/13/24 12:47 Dose: Not Given Lorazepam (Lorazepam 0.5 Mg Tab) 0.5 mg PO TID PRN PRN Reason: Anxiety Stop: 05/08/24 01:23 Miscellaneous (Carbohydrates For Hypoglycemia ) 15 - 30 gm PO UD PRN PRN Reason: Hypoglycemia Protocol Stop: 05/08/24 03:26 Oxycodone HCl (Oxycodone Hcl Ir 5 Mg Tab (Immediate Release)) 10 mg PO QID@0800,1200,1700,2100 KARLO Stop: 04/25/24 20:59 Last Admin: 04/13/24 12:55 Dose: 10 mg Trazodone HCl (Trazodone Hcl 100 Mg Tab) 100 mg PO HS KARLO Stop: 05/08/24 20:59 Last Admin: 04/12/24 21:00 Dose: 100 mg
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
[2024-04-13 19:33] LABS: BUN Creatinine Ratio 22.3 (10-20); Calcium 7.9 mg/dl (8.6-10.3); Creatinine Clr Calc Pharmacy 47.4 ml/min; Potassium 4.6 mmol/L (3.5-5.1)
[2024-04-13 20:27] LABS: Appearance Urine Clear (Clear); Bacteria Urine Automated None Seen (None Seen); Bilirubin Urine Negative (Negative); Blood Urine Negative (Negative); Cast Urine Automated 0-2 /lpf (0-2); Color Urine Yellow; Epithelial Cell Urine Auto 0-2 /hpf (0-2); Glucose Urine UA Negative (Negative); Ketones Urine Negative (Negative); Leukocyte Esterase Urine Negative (Negative); Nitrite Urine Negative (Negative); Protein Urine 1+ (Negative); RBC Urine Automated 0-2 /hpf (0-2); Specific Gravity Urine 1.018 (1.000-1.030); Urobilinogen Urine Negative (Negative); WBC Urine Automated 0-5 /hpf (0-5); pH Urine 5.5 (4.5-7.5)
[2024-04-13 20:39] LABS: Urine Potassium 55.8 mmol/L
[2024-04-14] MEDS: SODIUM BICARBONATE 8.4% 50 MEQ in SODIUM CHLORIDE 0.45 % 1,000 ML IV SCH (00:25)
[2024-04-14] MEDS: PROMETHAZINE 6.25 MG/50.25 ML BAG IV PRN (09:14)
--- NOTE | 2024-04-14 12:44 | Nephrology Progress Note ---
Date of Service April 14, 2024 Assessment & Plan (1) Positional lightheadedness: Plan: his SBP did drop this admission on 04/08 from 155 standing to 131 lying down >> technically for a hypertensive pt not meeting orthostatic criteria of 30 point drop (their criteria are different than for pts w/o HTN who need "only" drop at least 20 points). this is significantly better than last OV where he dropped on 03/28 from 132 lying down to SBP 76 w/ standing or on 03/29 from 140 > 112 standing. however 04/13 PM had SBP from 158 >>54 per report whether he meets criteria or not, he was extremely symptomatic > couldn't do PT ; would otherwise be ready for d/c but can't tolerate standing so can't be d/c; so we obviously have to address. His orthostatic and dizziness is better today., contineu thsi twice daily ->>stopped fludrocortisone; avoid this; avoid midodrine - renal function at baseline, Continue on 03/29 NS w/ 50 mEq Na bic x 1L again today> trying to choose fluid that won't increase BP but still will hydrate; may affect Na but will risk that ->>consider depending on labs starting salt tablet (easier to wean off and to titrate than fludrocortisone or midodrine), and normal diet ->>continue to hold all BP meds >>>suggest primary service order carotid dopplers, He nicole has autonomic dysfucntion 2/ diabetes. (2) Hyponatremia: Plan: Normal sodium with normal Posm on lab done on 04/13. (3) Hypertension, essential: Plan: by history and here in hospital; more positional lightheadedness w/ acute illnesses recently however though positional lightheadedness OFTEN an issue for him Admission and Anticipated Discharge Date Admission Date: April 09, 2024 Subjective The patient was seen and examined in presence of the He has been sleepinf comfortbaly . he did c/o dizziness in am after Orthostatic-- which was largely improved from yesterday Denies any other symptoms with it Review of Systems 2 Review of Systems: All systems reviewed & are unremarkable except as noted in HPI & below Results & Data Vital Signs (Past 12 Hours) Vital Signs Temp Pulse Pulse Pulse Resp BP Pulse Ox 04/14/24 11:30 37.1 C 62 20 128/58 L 95 04/14/24 07:55 04/14/24 07:51 36.9 C 61 16 149/61 H 95 04/14/24 07:08 56 L 04/14/24 03:21 37.1 C 70 70 18 130/60 95 O2 Del Method 04/14/24 11:30 Room Air 04/14/24 07:55 Room Air 04/14/24 07:51 Room Air 04/14/24 07:08 04/14/24 03:21 Room Air Laboratory Results 04/11/24 05:28 04/13/24 18:41
--- NOTE | 2024-04-14 14:58 | Hospitalist Progress Note ---
Date of Service April 14, 2024 Assessment & Plan (1) Dizziness: Plan Patient is a 73-year-old male with Medical history significant for chronic diastolic heart failure (EF 60 %, TTE 2023), valvular heart disease (mild MR/TR), hypertension, ILD, history endocarditis, DM2 on oral medications, CRI (baseline creatinine 1.5), chronic anemia (baseline hemoglobin 11-13), NAFLD cirrhosis, prostate cancer, chronic back pain on narcotics, past tobacco abuse presenting with concern for dizziness once more. Dizziness Bradycardia Abnormal orthostatic vitals from last admission Hypotension on recent outpatient PCP visit Possible autonomic neuropathy given history DM ?Symptomatic bradycardia - of metoprolol on hold and it persists. Question of whether patient's oxycodone 10 mg p.o. 4 times daily is playing a role. Head CT unremarkable telemetry monitoring repeat orthostatic vitals positive, will defer on midodrine at this time as patient's blood pressure actually on the higher side hold home antihypertensives and diuretics MRI of the brain ordered, Unremarkable given concern for patient's oxycodone 10 mg p.o. 4 times daily D daily scheduled playing a role with his bradycardia and dizziness, pain management consult was placed for further recommendations or alternatives for pain management. continue to monitor 04/10/24- oxycodone dose decreased to 7.5mg QID to see if there is improvement in dizziness and bradycardia. PT/OT orders also placed, consider Isaías altman for possible benefit Will decrease the dose of oxycodone to 5 mg 4 times daily Strongly advised to drink more fluid and will start small dose of midodrine He was advised to take some time to initiate any sort of activity Dizziness seems to be improving on midodrine He was advised to participate in physical therapy likely discharge tomorrow Remains medically stable but continues to have significant postural hypotension with symptoms of dizziness that he could not participate in physical therapy Midodrine was discontinued due to hypotension He was advised to drink more fluid and a small dose of Florinef 0.1 mg added Will ask nephrology to evaluate-appreciate input and recommendation Advised to drink more fluid and take little more salt in diet If dizziness is improved and reasonable he will be discharged home tomorrow Hospital-acquired pneumonia Has had hemoptysis last evening with yellow-green sputum Chest x-ray showed hazy opacification of the right lower lung zone Started on intravenous cefepime and doxycycline Denies any respiratory symptoms, no cough and no shortness of Has been getting antibiotic with improvement No respiratory symptoms will get oral antibiotic on discharge Narcotic pain medication dependence He has been getting 10 mg oxycodone 4 times daily regularly We have tried to reduce the doses in the hospital but his pain flared up His medications is managed by his PCP and he did not want us to change anything on that He is back on his oxycodone from this morning He was told that his dizziness could be due to narcotic use and so his bradycardia He was again advised to decrease the doses of narcotic pain medication but he refused Possible sepsis marked leukocytosis (patient recently on steroids) elevated procalcitonin rule out biliary and ENT source given abnormal LFTs and sore throat complaints CT soft tissue neck noting mucosal sinus thickening CT abdomen pelvis noting concern for perinephric stranding bilaterally and cirrhosis COVID still positive UA unremarkable for infection Blood cultures NGTD Continue to monitor Acute Kidney Injury on CKD secondary to illness creatinine elevated at 1.72, known history of CKD Creatinine was 1.38 on March 28 Received fluids Improving Advised to drink more fluid Cirrhosis Elevated LFTs CT abdomen pelvis concerning for cirrhosis Patient denies alcohol use Likely nonalcoholic fatty liver disease GI consulted, appreciate recs Chronic Medial problems: chronic diastolic heart failure, patient on the dry side DM2 on oral medications, well-controlled as of recent hemoglobin A1c of 5.28 December 2023. ISS in hospital chronic anemia, hemoglobin at baseline prostate cancer status post surgery past tobacco abuse Diet: HH/DMII DVT prophylaxis. SCDs Full code Admission and Anticipated Discharge Date Admission Date: April 09, 2024 Subjective 04/11/2024 The patient was seen and examined in medical telemetry unit in presence of the hien he He has been complaining of dizziness especially when up and about Denies any other symptoms with it 04/12/2024 The patient was seen and examined in medical telemetry unit in presence of the His pain medications was reduced but required to be back to his original dose to control pain His dizziness is improving on midodrine 04/13/2024 The patient was seen and examined in medical telemetry unit He has been feeling well this morning with a stuffy nose and generalized weakness He has had physical therapy but could not tolerate therapy due to significant postural hypotension with blood pressure dropping as low as systolic 50s with acute symptoms He was advised to drink more fluid and Florinef was started Will also get nephrology evaluation for any other ideas 04/14/2024 The patient was seen and examined in medical telemetry unit He has been complaining of dizziness with ambulation and standing Has been getting intravenous fluid from nephrology and the symptoms are looking better today Will continue with current management and if he has been feeling much better can be sent from tomorrow Review of Systems Review of Systems: All systems reviewed and are unremarkable except as noted below Physical Exam Physical Exam: Sitting on a chair without any acute distress Constitutional: well developed, well nourished, + ill appearing and average body habitus Eyes: PERRL, conjunctivae normal, anicteric sclerae ENMT: external ear and nose normal, oropharynx normal Neck: trachea midline, no thyromegaly Respiratory: no respiratory distress Auscultation: lungs clear to auscultation bilaterally Cardiovascular: Rate/Rhythm: regular rate and regular rhythm; not tachycardic Heart Sounds: normal S1 and normal S2; no murmur Extremities: no edema Gastrointestinal (Abdomen): Inspection/Auscultation: normal bowel sounds; abdomen not distended Percussion/Palpation: abdomen soft; abdomen nontender Neurologic: normal touch/pain/proprioception and moves all extremities; no focal motor deficits Lymphatic: no cervical or axillary lymphadenopathy Results & Data Results & Data Vital Signs (Past 12 Hours) Vital Signs Temp Pulse Pulse Pulse Resp BP Pulse Ox 04/14/24 14:12 66 04/14/24 11:30 37.1 C 62 20 128/58 L 95 04/14/24 07:55 04/14/24 07:51 36.9 C 61 16 149/61 H 95 04/14/24 07:08 56 L 04/14/24 03:21 37.1 C 70 70 18 130/60 95 O2 Del Method 04/14/24 14:12 04/14/24 11:30 Room Air 04/14/24 07:55 Room Air 04/14/24 07:51 Room Air 04/14/24 07:08 04/14/24 03:21 Room Air Laboratory Results [facility] 04/13/24 18:41 Sodium 135 L Potassium 4.6 Chloride 107 Carbon Dioxide 24 BUN 31 H Creatinine 1.39 Glucose 79 Calcium 7.9 L Urine 04/13/24 Range/Units 20:15 Urine Color Yellow Urine Appearance Clear (Clear) Urine pH 5.5 (4.5-7.5) Ur Specific [place] 1.018 (1.000-1.030) Urine Protein 1+ H (Negative) Urine Glucose (UA) Negative (Negative) Medications Administered Current Inpatient Medications Acetaminophen (Acetaminophen 500 Mg Tab) 500 mg PO Q6H PRN PRN Reason: fever/pain Stop: 05/08/24 01:22 Last Admin: 04/11/24 00:31 Dose: 500 mg Benzonatate (Benzonatate 100 Mg Capsule) 100 mg PO TID PRN PRN Reason: Cough Stop: 05/10/24 19:33 Dextrose (Dextrose 50% 50 Ml Syringe) 25 - 50 ml IV UD PRN; Protocol PRN Reason: Hypoglycemia Protocol Stop: 05/08/24 03:26 Doxycycline Hyclate (Doxycycline Hyclate 100 Mg Cap) 100 mg PO BID KARLO Stop: 04/16/24 08:59 Last Admin: 04/14/24 07:48 Dose: 100 mg Glucagon (Glucagon For Inj 1 Mg Vial) 1 mg SQ UD PRN; Protocol PRN Reason: Hypoglycemia Protocol Stop: 05/08/24 03:26 Glucose (Glucose 40% Gel 15 Gm Tube) 15 - 30 gm PO UD PRN; Protocol PRN Reason: Hypoglycemia Protocol Stop: 05/08/24 03:26 Glucose (Glucose 10 Tab/Tube) 4 - 8 tab PO UD PRN; Protocol PRN Reason: Hypoglycemia Protocol Stop: 05/08/24 03:26 Hydromorphone HCl (Hydromorphone Inj 0.5 Mg/0.5 Ml Syr) 0.25 mg IV Q4H PRN PRN Reason: Pain Stop: 04/22/24 01:22 Last Admin: 04/12/24 04:49 Dose: 0.25 mg Promethazine HCl (Phenergan) 6.25 mg in 50.25 mls @ 201 mls/hr IV Q6H PRN PRN Reason: Nausea And Vomiting Stop: 05/08/24 01:22 Last Infusion: 04/14/24 09:47 Dose: Infused Cefepime HCl (Maxipime 2000mg) 2,000 mg in 20 mls @ 5 mls/min IV Q12H KARLO; Protocol Stop: 04/17/24 20:59 Last Admin: 04/14/24 07:48 Dose: 5 mls/min Sodium Bicarbonate 50 meq/ (Sodium Chloride) 1,050 mls @ 125 mls/hr IV .[id number] [facility] Stop: 04/14/24 20:14 Last Admin: 04/14/24 08:58 Dose: 125 mls/hr Insulin Aspart (Insulin Aspart Per Unit Charge) 0 units SC ACHS KARLO Stop: 05/08/24 20:59 Last Admin: 04/14/24 12:39 Dose: 4 units Lorazepam (Lorazepam 0.5 Mg Tab) 0.5 mg PO TID PRN PRN Reason: Anxiety Stop: 05/08/24 01:23 Miscellaneous (Carbohydrates For Hypoglycemia ) 15 - 30 gm PO UD PRN PRN Reason: Hypoglycemia Protocol Stop: 05/08/24 03:26 Oxycodone HCl (Oxycodone Hcl Ir 5 Mg Tab (Immediate Release)) 10 mg PO QID@0800,1200,1700,2100 [facility] Stop: 04/25/24 20:59 Last Admin: 04/14/24 12:39 Dose: 10 mg Trazodone HCl (Trazodone Hcl 100 Mg Tab) 100 mg PO HS [facility] Stop: 05/08/24 20:59 Last Admin: 04/13/24 20:37 Dose: 100 mg
[2024-04-15 06:41] LABS: BUN Creatinine Ratio 30.1 (10-20); Creatinine Clr Calc Pharmacy 77.2 ml/min; Potassium 4.6 mmol/L (3.5-5.1)
--- NOTE | 2024-04-15 11:44 | Nephrology Progress Note ---
Date of Service April 15, 2024 Assessment & Plan (1) Positional lightheadedness: Plan: his SBP did drop this admission on 04/08 from 155 standing to 131 lying down >> technically for a hypertensive pt not meeting orthostatic criteria of 30 point drop (their criteria are different than for pts w/o HTN who need "only" drop at least 20 points). this is significantly better than last OV where he dropped on 03/28 from 132 lying down to SBP 76 w/ standing or on 03/29 from 140 > 112 standing. however 04/13 PM had SBP from 158 >>54 per report whether he meets criteria or not, he was extremely symptomatic > couldn't do PT ; would otherwise be ready for d/c but can't tolerate standing so can't be d/c. His orthostatic and dizziness is better today ->>stopped fludrocortisone; avoid this; avoid midodrine - renal function at baseline,D/C fluids ->>consider starting salt tablet (easier to wean off and to titrate than fludrocortisone or midodrine), and normal diet and compression stockings ->>continue to hold all BP meds >>>suggest primary service order carotid dopplers, He nicole has autonomic dysfunction 2/ diabetes. (2) Hyponatremia: Plan: Normal sodium (3) Hypertension, essential: Plan: by history and here in hospital; more positional lightheadedness w/ acute illnesses recently however though positional lightheadedness OFTEN an issue for him Admission and Anticipated Discharge Date Admission Date: April 09, 2024 Subjective The patient was seen and examined He has been complaining of dizziness with ambulation and standing-- somewhat improved, he was able to ambulate today without dizziness for a short time. Review of Systems 2 Review of Systems: All systems reviewed & are unremarkable except as noted in HPI & below Physical Exam 2 Physical Exam: General: No acute distress. A+Ox3. NECK: No carotid bruits. No JVD. Carotid upstrokes are brisk. Heart: RRR. S1 and S2 noted. No murmur. No rubs or gallops. PMI non displaced. Lungs: Clear to auscultation. No wheezes. No rhonchi. No rales. Abdomen: Normal bowel sounds. Soft. Nontender. No masses or organomegaly. No abdominal bruits. Extremities: No edema. No clubbing or cyanosis. Pulses: radial=2/4 Results & Data Vital Signs (Past 12 Hours) Vital Signs Temp Pulse Pulse Resp BP Pulse Ox O2 Del Method 04/15/24 10:15 37.0 C 66 18 94 Room Air 04/15/24 08:45 Room Air 04/15/24 07:27 36.6 C 60 18 142/57 H 96 Room Air 04/15/24 07:26 57 L 04/15/24 02:30 37.2 C 62 18 134/57 L 95 Room Air Laboratory Results 04/11/24 05:28 04/15/24 05:54
--- NOTE | 2024-04-15 15:25 | Ultrasound Report ---
DUPLEX ULTRASOUND EXAMINATION OF THE CAROTID ARTERIES. COMPARISON: none . HISTORY / INDICATIONS: Syncope TECHNIQUE: Bilateral common carotid arteries, extracranial internal and external carotid arteries are evaluated with simon-scale imaging, color Doppler, and spectral analysis according to a standard protocol. ICA-CCA ratios are calculated with community representative peak-systolic velocities and recorded. Vertebral arteries are evaluated in one segment to evaluate for patency and character of flow. Comparison with previous evaluation is performed when available. Unless otherwise specified, all velocities are measured in cm/sec. Carotid stenosis is reported according to validated velocity parameters, similar to NASCET criteria. FINDINGS: Right Carotid: . Velocity measurements as follows: Internal Carotid Artery 105 cm/sec . ICA to CCA ratio: 1.1. Left Carotid: .Velocity measurements as follows: Internal Carotid Artery 146 cm/sec . ICA to CCA ratio: 1.8. Antegrade flow was seen in both vertebral arteries. Mild calcified plaque seen at the proximal left ICA, and also mild plaque at the proximal right ICA. IMPRESSION: 1. No significant stenosis of the right ICA. 2. 50-69% stenosis of the left ICA. 3. Vertebral arteries are patent and demonstrate antegrade flow. Sonographic NASCET Index This study proposed incorporating distal ICA flow velocity information on the conventional carotid Doppler study improving the diagnostic accuracy of PSV . <15% stenosis -deceleration spectral broadening with a peak systolic velocity (PSV) <125 cm/s 16-49% stenosis -pansystolic spectral broadening with a PSV <125 cm/s 50-69% stenosis -pansystolic spectral broadening with a PSV of >125 cm/s and -end-diastolic velocity (EDV) <110 cm/s or ICA/CCA PSV ratio >2 but <4 70-79% stenosis -pansystolic spectral broadening with PSV >270 cm/s or EDV >110 cm/s or ICA/CCA PSV ratio >4 80-99% stenosis: EDV >140 cm/s complete occlusion: no flow; terminal thump Electronically signed by Hany Lee 04-15-2024 3:25 PM
[2024-04-15] MEDS: CEFEPIME 2000MG 2,000 MG/20 ML SYR IV SCH (18:00)
[2024-04-15] MEDS: SODIUM CHLORIDE 1 GM TABLET PO SCH (20:59)
[2024-04-16 07:44] VITALS: RESP 18; O2SAT 95
--- NOTE | 2024-04-16 11:05 | Discharge Summary ---
Discharge Summary Date of Service April 16, 2024 Principal Dx & Hospital Course #1 = Principal Diagnosis (1) Autonomic postural hypotension: (2) Autonomic dysfunction: (3) Cirrhosis: (4) CKD (chronic kidney disease), stage III: (5) DMII (diabetes mellitus, type 2): (6) Chronic diastolic congestive heart failure: (7) Hypertension, essential: (8) Pneumonia: Plan Patient presented to the emergency department with complaints of dizziness and lightheadedness. Instructed to present from his PCP. Patient had a recent hospitalization for COVID-19. It was thought that his dizziness was attributed to build to the COVID and would improve with time. Here in the emergency room, question of possible pneumonia and did have some significant changes in blood pressure with postural changes. Patient was cared for in the hospital. His blood pressure medications were held as well as his diuretics. Nephrology consultation was obtained for his acute on chronic kidney injury. He was treated with antibiotics for presumed pneumonia. He completed a full course of antibiotics for his pneumonia here in the hospital. With holding of his diuretics and blood pressure medications his blood pressures improved. His dizziness resolved. He was started on salt tablets to help maintain his blood pressures. On the day of discharge she was up and ambulatory. Well recomment his blood pressure was on the higher side but it was not having large swings in his blood pressures with changes in position. He denied any lightheadedness or dizziness. 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 Notes For Next Care Provider Follow-up with nephrology Medication Changes From Visit Antihypertensives and diuretics discontinued Celexa also discontinued aspirin because orthostasis at times. Admission HPI Per Admitting Provider History obtained from patient and records. Medical history significant for chronic diastolic heart failure (EF 60 %, TTE 2023), valvular heart disease (mild MR/TR), hypertension, ILD, history endocarditis, DM2 on oral medications, CRI (baseline creatinine 1.5), chronic anemia (baseline hemoglobin 11-13), NAFLD cirrhosis, prostate cancer, chronic back pain on narcotics, past tobacco abuse. Recent overnight confinement 10 days ago for dizziness symptoms attributed to COVID-19 illness. Patient discharged on Decadron course. Abnormal orthostatic vitals documented during confinement. SBP noted to be 90s, heart rate 60s on PCP visit 4 days ago. Patient with persistent dizziness/lightheadedness symptoms on standing up. PCP discontinued amlodipine and spironolactone. Worsening dizziness/achy headache symptoms at home Persistent sore throat symptoms with transient chest pain/SOB. No unusual cough symptoms. Denies abdominal pain. Patient brought to ER by for evaluation. 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 Lungs: Decreased breath sounds CV: S1-S2, regular Abdomen: Soft, nontender, nondistended Extremities: No significant edema Neuro: No focal deficits Psych: Cooperative, normal mood Updated Medication List Medication Instructions Recorded Confirmed Type oxycodone 10 mg tablet 10 mg PO QID 01/02/22 04/08/24 History trazodone 100 mg tablet 100 mg PO HS 01/02/22 04/08/24 History metoprolol succinate 25 mg 12.5 mg PO QAM 01/15/23 04/08/24 History tablet,extended release 24 hr citalopram 20 mg tablet 20 mg PO QAM 03/26/24 04/08/24 History dextromethorphan-guaifenesin 30 1 tab PO BID PRN cough #14 tabs 03/29/24 04/08/24 Rx mg-600 mg tablet extended [id number] hr (Mucinex DM) furosemide 40 mg tablet 40 mg PO UD 04/08/24 04/08/24 History sodium chloride 1,000 mg soluble 1,000 mg PO BID 30 days #60 tabs 04/16/24 Rx tablet Hospital Stay Data Consultations 04/08/24 00:40 ED Decision to Admit Stat 04/08/24 08:57 Consult Gastroenterology Routine 04/09/24 16:35 Consult Pain Management Routine 04/13/24 14:49 Consult Nephrology Routine Diagnostic Imagining Performed 04/07/24 19:32 CT head/brain wo con Stat 04/07/24 22:12 CT angio chest PE protocol Stat 04/08/24 01:20 CT Abd and Pelvis [CT abd pelvis wo con] Stat 04/08/24 01:28 CT neck soft tissues [CT soft tissue neck wo con] Stat 04/08/24 17:55 MRI Brain [MR brain wo/w con] Routine 04/15/24 13:51 Carotid duplex [US carotid doppler BI] Urgent Reviewed imaging, laboratory and diagnostic studies. Pertinent findings as below. Carotid duplex no significant stenosis MRI of the brain no acute pathology CT of the neck showed some possible maxillary thickening and some tonsilloliths CTA of the chest showed some fibrotic disease some vascular congestion WBC 7.8 Hemoglobin 12.8 Electrolytes stable Creatinine 1.39 Glucoses reviewed and overall stable Sputum culture no significant growth Blood cultures no growth after 5 days Pending Results Patient Have Any Pending Studies at Discharge: No Discharge Instructions Given to Patient (Per Discharging Provider) For your information you will need to tolerate a higher blood pressure when laying down so your blood pressure does not drop too much the you get symptoms when you change positions. When you go from lying down to sitting up or sitting up to standing up please make slow movements and make sure that you do not not get lightheaded or dizzy before you move onto the next position or start walking. Total Time Total Time Spent Total Time Spent (In Minutes): 33
[2024-04-16 11:19] VITALS: BP 154/65; PULSE 62; TEMP 98.4
--- NOTE | 2024-04-17 14:13 | Coding Query ---
SEPSIS To promote full compliance with coding requirements relating to patient care, physician participation is requested in all cases of shelf filler uncertainty. Please assist us with the question(s) below: In responding to this query, please exercise your independent professional judgement. The fact that a question is asked does not imply that any particular answer is desired or expected. We appreciate your clarification on this issue. Throughout the medical record, you have clearly documented a localized infection and your patient has clinical evidence of a generalized sepsis or severe sepsis. The term urosepsis is a nonspecific entity and is coded as an UTI. If the patient has sepsis, severe sepsis, from an urinary source or some other source, please clarify in your response below. The medical record reflects the following clinical findings: (With dates as appropriate) (Body temperature of >38.3 C(101 F) or <36 C(96.8F), pulse >90/minute, respirations >20/minute, WBC count >12,000 or <4,000, altered mental status, significant edema or positive fluid balance, hyperglycemia without diabetes, hypotension, metabolic acidosis (elev. lactate level, anion gap or reduced blood pH), shock, positive blood culture (enter organism) ____ ()Bacteremia (Nonspecific laboratory finding of bacteria in the blood) Specify Organism () Present on Admission () Not present on admission () Unable to clinically determine () Septicemia (Systemic disease associated with the presence of pathogenic microorganisms in the blood): Specify Organism () Present on Admission () Not present on admission () Unable to clinically determine () Sepsis Specify Organism Specify Associated Condition/Diagnosis (x) Present on Admission () Not present on admission () Unable to clinically determine () Severe Sepsis (Sepsis associated with acute organ dysfunction) Specify Organism Specify Associated Condition/Diagnosis () Present on Admission () Not present on admission () Unable to clinically determine () Septic Shock (Severe sepsis with acute circulatory failure, unexplained by other causes) () Present on Admission () Not present on admission () Unable to clinically determine () Other, patient has: MTDD
== END 2024-04-16 12:58 | disposition home or self-care (01) | DRG 871 ==
LOC: ED 18:21 → EDINP 18:21 → 2W 04-08 03:27 → SUATTDRO 04-09 17:11

== ENCOUNTER 2024-05-16 22:32 | Inpatient (IN) ==
[2024-05-16 23:07] LABS: Basophils # (auto) 0.08 K/uL (0.00-0.20); Basophils % (auto) 0.7 %; Eosinophils # (auto) 0.65 K/uL (0.00-0.50); Eosinophils % (auto) 5.5 %; Hematocrit (blood only) 35.3 % (42.0-52.0); Hemoglobin 12.1 g/dl (14.0-18.0); Immature Granulocytes # (auto) 0.03 K/uL (0.01-0.20); Immature Granulocytes % (auto) 0.3 %; Lymphocytes % (auto) 27.7 %; Mean Corpuscular Hemoglobin 33.9 pg (25.0-34.0); Mean Corpuscular Hgb Conc 34.3 g/dL (32.0-36.0); Mean Corpuscular Volume 98.9 fL (80.0-100.0); Mean Platelet Volume 10.8 fL (9.4-12.4); Monocytes % (auto) 8.4 %; Neutrophils # (auto) 6.85 K/uL (1.40-6.50); Neutrophils % (auto) 57.4 %; Platelet Count 179 K/uL (130-400); RDW Coefficient of Variation 13.8 % (11.5-14.5); RDW Standard Deviation 50.4 fL (36.4-46.3); Red Blood Count 3.57 M/uL (4.70-6.10); White Blood Count 11.91 K/ul (4.8-10.8)
[2024-05-16 23:23] LABS: Albumin Globulin Ratio 0.6 (0.9-2); Albumin Level 2.7 gm/dl (3.4-5.0); BUN Creatinine Ratio 18.9 (10-20); Calcium 8.2 mg/dl (8.6-10.3); Creatinine Clr Calc Pharmacy 67.5 ml/min; Globulin 4.2 gm/dl (2.5-4.0); Potassium 4.4 mmol/L (3.5-5.1); Total Protein 6.9 gm/dl (6.0-8.3)
[2024-05-17 00:02] LABS: Adenovirus PCR Not Detected (NotDetected); Bordetella parapertussis PCR Not Detected (NotDetected); Bordetella pertussis PCR Not Detected (NotDetected); Chlamydia pneumoniae PCR Not Detected (NotDetected); Coronavirus 229E PCR Not Detected (NotDetected); Coronavirus CoV-2 (COVID19)PCR Not Detected (NotDetected); Coronavirus HKU1 PCR Not Detected (NotDetected); Coronavirus NL63 PCR Not Detected (NotDetected); Coronavirus OC43PCR Not Detected (NotDetected); Human Metapneumovirus PCR Not Detected (NotDetected); Influenza A PCR Not Detected (NotDetected); Influenza B PCR Not Detected (NotDetected); Mycoplasma pneumoniae PCR Not Detected (NotDetected); Parainfluenza Virus 1 PCR Not Detected (NotDetected); Parainfluenza Virus 2 PCR Not Detected (NotDetected); Parainfluenza Virus 3 PCR Not Detected (NotDetected); Parainfluenza Virus 4 PCR Not Detected (NotDetected); Respiratory Syncytial VirusPCR Not Detected (NotDetected); Rhinovirus/Enterovirus PCR Not Detected (NotDetected)
[2024-05-17 00:50] LABS: Appearance Urine Clear (Clear); Bacteria Urine Automated None Seen (None Seen); Bilirubin Urine Negative (Negative); Blood Urine Negative (Negative); Cast Urine Automated 0-2 /lpf (0-2); Color Urine Yellow; Epithelial Cell Urine Auto 0-2 /hpf (0-2); Glucose Urine UA Negative (Negative); Ketones Urine Negative (Negative); Leukocyte Esterase Urine Negative (Negative); Nitrite Urine Negative (Negative); Protein Urine Trace (Negative); RBC Urine Automated 0-2 /hpf (0-2); Specific Gravity Urine 1.016 (1.000-1.030); Urobilinogen Urine Negative (Negative); WBC Urine Automated 0-5 /hpf (0-5)
--- NOTE | 2024-05-17 01:05 | Emergency Department Note ---
Impression & Plan Orthostatic hypotension ED Provider Note CHIEF COMPLAINT: Dizziness HISTORY OF PRESENT ILLNESS: This 73-year-old male patient presents to the emergency department via private vehicle for evaluation of history of orthostatic hypotension. The patient reports he has been feeling increasingly dizzy upon standing. He states he has been seen by neurology, as well as cardiology, with no definitive cause of the orthostasis. He reports he has been feeling poorly lately, with worsening symptoms upon standing he states over the last few days he has been increasingly foggy. He does report administration of midodrine for orthostatic hypotension. He reports no unilateral weakness, or other neurological deficit. He reports a recent diagnosis of pneumonia, which has likely decreased his oral intake. He denies chest pain, shortness of breath, nausea, vomiting, abdominal pain, diarrhea or constipation. REVIEW OF SYSTEMS: A review of systems was performed with positives and pertinent negatives listed in the history of present illness. All other systems were reviewed and are negative. ALLERGIES: See below MEDICATIONS: See below PMH: See below PHYSICAL EXAM: VITALS: Vitals are noted on the nurse's note and reviewed by myself. Vital signs stable. GENERAL: 73-year-old male, in no acute distress, nondiaphoretic, well-developed well-nourished. SKIN: The skin was without rashes, erythema, edema, or bruising. HEAD: Normocephalic atraumatic. EARS: External auditory canals clear, tympanic membranes pearly simon without erythema or effusion bilaterally. EYES: Pupils equal round and reactive to light and accommodation. Conjunctivae without injection, sclerae without icterus. Extraocular movements intact. No nystagmus present. MOUTH: Mucous membranes moist. No tonsillar hypertrophy. Pharynx without erythema or exudate. Uvula midline. Airway patent. Tongue does not deviate. NECK: Supple without nuchal rigidity. No lymphadenopathy. No JVD. HEART: Regular rate and rhythm with systolic murmur noted. LUNGS: Coarse lung sounds throughout. No retractions or accessory muscle use. ABDOMEN: Positive bowel sounds x 4. Soft, nontender, without masses or organomegaly. White sign negative. No guarding or rebound tenderness. MUSCULOSKELETAL: No muscle atrophy, erythema, or edema noted. Full range of motion without joint tenderness in all extremities. No tenderness to palpation. Normal gait. Strength 5/5 throughout. NEURO: Patient was alert and oriented to person place and time. No focal neurological deficits. MEDICAL DECISION MAKING: The patient is a pleasant 73-year-old male who arrives to the emergency department for evaluation of the above-stated complaint. Patient arrived during a time of high acuity, and high-volume. Initial workup was performed in triage. A saline lock was established, CBC, CMP, upper respiratory BioFire panel, urinalysis, and two-view chest x-ray as well as EKG were obtained. CBC shows leukocytosis 11.91, with a stable anemia. CMP is unremarkable with exception of elevated alkaline phosphatase at 232 and elevated AST at 70 with a normal total bilirubin. Urinalysis is negative for infection. Upper respiratory viral panel is negative. EKG shows normal sinus rhythm at a rate of 71 bpm, with no ST elevation, or depression. Inverted T waves have replaced the nonspecific T wave abnormality and previous EKG from April 07, 2024. Chest x-ray shows unchanged mild cardiomegaly with prominent both hilar and bronchovascular markings likely congestion/bronchitis. There is also redemonstration of bilateral lower zones inhomogenous obesity. Blunting of right costophrenic angles, report states stable, however could be pleural effusion or thickening. Orthostatic vital signs were obtained by nursing staff, which were positive. IV fluids were initially considered, however in the presence of the patient's chronic diastolic heart failure, they were deferred to the admitting provider. The patient was provided his nightly dose of 10 mg of immediate release oxycodone for pain control. I consulted the [facility] hospitalist, Dr. Wong regarding the need for patient admission due to worsening orthostatic hypotension. The patient will require further evaluation. Dr. Wong did agree to see the patient, and accept him under his care. Please refer to his documentation for further patient workup. DIFFERENTIAL DIAGNOSIS: Benign positional vertigo, dehydration, hypovolemia, anemia, tumor, infection, hypoglycemia, electrolyte abnormalities, cardiac sources, intracerebral event, toxicologic, neurologic, as well as other pathologies. Continuous acid changer: Order was placed for continuous acid changer. Patient was placed on the acid changer. Patient was noted to be in normal sinus rhythm at an initial rate of 85 bpm. The patient's case was discussed with Dr. Palacios, who agreed with my evaluation and treatment plan. The chart was completed utilizing [employer]SI voice recognition software. Grammatical errors, random word insertions, pronoun errors, and incomplete sentences are an occasional consequence of this system due to software limitations, ambient noise, and hardware issues. Any formal questions or concerns about the content, text, or information contained within the body of this dictation should be directly addressed to the physician for clarification. Past Med/Surg History Problem List (Updated 05/19/24 @ 19:39 by TERRELL Simpson) Orthostatic hypotension (Acute) Dizziness on standing Pneumonia Chronic diastolic congestive heart failure Autonomic dysfunction Autonomic postural hypotension Hyponatremia Positional lightheadedness JUWAN (acute kidney injury) (Acute) Leukocytosis (Acute) Cirrhosis Dehydration (Acute) Dizziness (Acute) COVID-19 Depression Hypertension, essential Dizziness (Acute) Generalized weakness (Acute) COVID-19 (Acute) Generalized weakness (Acute) Leukocytosis (Acute) Fever (Acute) Acute exacerbation of CHF (congestive heart failure) (Acute) Shortness of breath (Acute) Bilateral edema of lower extremity (Acute) Recent weight gain (Acute) Hypomagnesemia (Acute) Acute on chronic heart failure with preserved ejection fraction (HFpEF) Chest pressure (Acute) Acute exacerbation of CHF (congestive heart failure) (Acute) Multiple rib fractures (Acute) History of cholecystectomy Previous back surgery Rib pain (Acute 09/10/10) Subacute bacterial endocarditis (Acute 09/24/10) Medical History Anemia Cirrhosis H/O endocarditis DMII (diabetes mellitus, type 2) CKD (chronic kidney disease), stage III Hypertensive urgency Acute decompensated heart failure Opioid type dependence, unspecified Social History Smoking Status: Former smoker Tobacco Type: Cigarettes Cigarettes Per Day: 15; Second Hand Exposure: No; Do You Dip or Chew Tobacco: No; Hx Alcohol Use: No Hx Substance Use: No Preferred Language: Wolof Communication Ability: Effective Best Second Jobs Required: No Beliefs That Will Affect Care: None marital status: Current Living Situation: Spouse Other Information That Helps Us Care for You: No Feels Safe at Home: Yes Safety Concerns: Feels Safe At This Time Assistive Devices: Denture - Upper and Denture - Lower Allergies Allergies Allergy/AdvReac Type Severity Reaction Status Date / Time lisinopril Allergy Dizziness Verified 05/17/24 04:21 losartan Allergy Dizziness Verified 05/17/24 04:21 Home Meds Home Medications Medication Instructions Recorded Confirmed oxycodone 10 mg tablet 10 mg PO QID 01/02/22 05/17/24 diphenhydramine 25 1 tab PO HS PRN Sleep 05/17/24 05/17/24 mg-acetaminophen 500 mg tablet (Tylenol PM Extra Strength) sodium chloride 1,000 mg soluble 1 g PO BID 05/17/24 05/17/24 tablet Previous Rx's Medication Instructions Recorded doxycycline hyclate 100 mg capsule 100 mg PO BID 4 days #8 caps 05/18/24 midodrine 2.5 mg tablet 7.5 mg (3 x 2.5 mg) PO TIDM 30 05/18/24 days #90 tabs Results & Data (ED) Vital Signs Vital Signs - 24 hr 05/16/24 22:35 05/16/24 22:51 05/16/24 23:11 Temperature 36.5 C Temperature Source Temporal Artery Scan Pulse Rate 85 73 Pulse Rate [Apical] 70 Pulse Rhythm [Apical] Regular Pulse Strength [Apical] Normal Respiratory Rate 16 18 Respiratory Effort / Characteristics Non-Labored Spontaneous Non-Labored Respiratory Depth Normal Normal Respiratory Pattern Regular Blood Pressure 159/73 H Blood Pressure [Right Arm] 168/100 H Blood Pressure Mean 101 Blood Pressure Mean [Right Arm] 122 Blood Pressure Position [Right Arm] Sitting Pulse Oximetry 98 97 Oxygen Delivery Method Room Air Room Air Sepsis Recent Fever Within 48 Hours No Sepsis New/Unexplained Change in Mental Status No Sepsis Action Taken by Nursing No Action Required 05/17/24 01:00 Temperature Temperature Source Pulse Rate Pulse Rate [Apical] 73 Pulse Rhythm [Apical] Regular Pulse Strength [Apical] Normal Respiratory Rate 18 Respiratory Effort / Characteristics Non-Labored Respiratory Depth Normal Respiratory Pattern Regular Blood Pressure Blood Pressure [Right Arm] 147/71 H Blood Pressure Mean Blood Pressure Mean [Right Arm] 96 Blood Pressure Position [Right Arm] Lying Pulse Oximetry 98 Oxygen Delivery Method Room Air Sepsis Recent Fever Within 48 Hours Sepsis New/Unexplained Change in Mental Status Sepsis Action Taken by [facility] Medications Current Medication List: was personally reviewed by me Laboratory Data Attestation: I reviewed the patient's lab results. 05/18/24 05:46 05/19/24 08:50 Lab Results 05/16/24 05/17/24 05/17/24 Range/Units 22:48 00:35 05:40 WBC 11.91 H 10.36 (4.8-10.8) K/ul RBC 3.57 L 3.44 L (4.70-6.10) M/uL Hgb 12.1 L 11.7 L (14.0-18.0) g/dl Hct 35.3 L 33.4 L (42.0-52.0) % MCV 98.9 97.1 (80.0-100.0) fL MCH 33.9 34.0 (25.0-34.0) pg MCHC 34.3 35.0 (32.0-36.0) g/dL RDW Std Deviation 50.4 H 49.0 H (36.4-46.3) fL RDW Coeff of Marjorie 13.8 13.8 (11.5-14.5) % Plt Count 179 160 (130-400) K/uL MPV 10.8 11.2 (9.4-12.4) fL Immature Gran % (Auto) 0.3 0.5 % Neut % (Auto) 57.4 57.4 % Lymph % (Auto) 27.7 27.7 % [place] % (Auto) 8.4 7.1 % Eos % (Auto) 5.5 6.5 % Baso % (Auto) 0.7 0.8 % Neut # (Auto) 6.85 H 5.95 (1.40-6.50) K/uL Lymph # (Auto) 3.30 2.87 (1.20-3.40) K/uL [place] # (Auto) 1.00 H 0.74 H (0.11-0.59) K/uL Eos # (Auto) 0.65 H 0.67 H (0.00-0.50) K/uL Baso # (Auto) 0.08 0.08 (0.00-0.20) K/uL Immature Gran # (Auto) 0.03 0.05 (0.01-0.20) K/uL Sodium 136 137 (136-145) mmol/L Potassium 4.4 4.2 (3.5-5.1) mmol/L Chloride 105 108 H (98-107) mmol/L Carbon Dioxide 28 25 (21-32) mmol/L Anion Gap 3 4 (3-11) BUN 20 21 (6-23) mg/dl Creatinine 1.06 0.98 (0.6-1.4) mg/dl Est Cr Clr Drug Dosing 67.5 73.0 ml/min eGFR 73.19 80.41 BUN/Creatinine Ratio 18.9 21.4 H (10-20) Glucose 128 H 89 (70-99(Fasting)) mg/dl POC Glucose (70-99) mg/dl Calcium 8.2 L 8.2 L (8.6-10.3) mg/dl Phosphorus (2.5-4.9) mg/dl Magnesium (1.7-2.4) mg/dl Total Bilirubin 1.0 1.1 H (0.2-1.0) mg/dl Direct Bilirubin (0-0.2) mg/dl AST 70 H 61 H (13-39) U/L ALT 40 37 (7-52) U/L Alkaline Phosphatase 232 H 206 H (34-104) U/L Total Protein 6.9 6.5 (6.0-8.3) gm/dl Albumin 2.7 L 2.5 L (3.4-5.0) gm/dl Globulin 4.2 H 4.0 (2.5-4.0) gm/dl Albumin/Globulin Ratio 0.6 L 0.6 L (0.9-2) Urine Color Yellow Urine Appearance Clear (Clear) Urine pH 6.0 (4.5-7.5) Ur Specific [place] 1.016 (1.000-1.030) Urine Protein Trace H (Negative) Urine Glucose (UA) Negative (Negative) Urine Ketones Negative (Negative) Urine Blood Negative (Negative) Urine Nitrite Negative (Negative) Urine Bilirubin Negative (Negative) Urine Urobilinogen Negative (Negative) Ur Leukocyte Esterase Negative (Negative) Urine WBC (Auto) 0-5 (0-5) /hpf Urine RBC (Auto) 0-2 (0-2) /hpf U Hyaline Cast (Auto) 0-2 (0-2) /lpf U Epithel Cells (Auto) 0-2 (0-2) /hpf Urine Bacteria (Auto) None Seen (None Seen) Adenovirus (PCR) Not Detected (NotDetected) B. pertussis DNA (PCR) Not Detected (NotDetected) B.parapertussis DNA PCR Not Detected (NotDetected) C. pneumoniae DNA (PCR) Not Detected (NotDetected) Coronavirus OC43 (PCR) Not Detected (NotDetected) Coronavirus HKU1 (PCR) Not Detected (NotDetected) Coronavirus 229E (PCR) Not Detected (NotDetected) SARS-CoV-2 (PCR) Not Detected (NotDetected) Coronavirus NL63 (PCR) Not Detected (NotDetected) Human Metapneumovir PCR Not Detected (NotDetected) Influenza Type A (PCR) Not Detected (NotDetected) Influenza Type B (PCR) Not Detected (NotDetected) M. pneumoniae (PCR) Not Detected (NotDetected) Parainfluenza 1 (PCR) Not Detected (NotDetected) Parainfluenza 2 (PCR) Not Detected (NotDetected) Parainfluenza 3 (PCR) Not Detected (NotDetected) Parainfluenza 4 (PCR) Not Detected (NotDetected) RSV (PCR) Not Detected (NotDetected) Entero/Rhino (PCR) Not Detected (NotDetected) 05/17/24 05/17/24 05/17/24 Range/Units 08:54 12:53 17:57 WBC (4.8-10.8) K/ul RBC (4.70-6.10) M/uL Hgb (14.0-18.0) g/dl Hct (42.0-52.0) % MCV (80.0-100.0) fL MCH (25.0-34.0) pg MCHC (32.0-36.0) g/dL RDW Std Deviation (36.4-46.3) fL RDW Coeff of Marjorie (11.5-14.5) % Plt Count (130-400) K/uL MPV (9.4-12.4) fL Immature Gran % (Auto) % Neut % (Auto) % Lymph % (Auto) % [place] % (Auto) % Eos % (Auto) % Baso % (Auto) % Neut # (Auto) (1.40-6.50) K/uL Lymph # (Auto) (1.20-3.40) K/uL [place] # (Auto) (0.11-0.59) K/uL Eos # (Auto) (0.00-0.50) K/uL Baso # (Auto) (0.00-0.20) K/uL Immature Gran # (Auto) (0.01-0.20) K/uL Sodium (136-145) mmol/L Potassium (3.5-5.1) mmol/L Chloride (98-107) mmol/L Carbon Dioxide (21-32) mmol/L Anion Gap (3-11) BUN (6-23) mg/dl Creatinine (0.6-1.4) mg/dl Est Cr Clr Drug Dosing ml/min eGFR BUN/Creatinine Ratio (10-20) Glucose (70-99(Fasting)) mg/dl POC Glucose 93 108 H 90 (70-99) mg/dl Calcium (8.6-10.3) mg/dl Phosphorus (2.5-4.9) mg/dl Magnesium (1.7-2.4) mg/dl Total Bilirubin (0.2-1.0) mg/dl Direct Bilirubin (0-0.2) mg/dl AST (13-39) U/L ALT (7-52) U/L Alkaline Phosphatase (34-104) U/L Total Protein (6.0-8.3) gm/dl Albumin (3.4-5.0) gm/dl Globulin (2.5-4.0) gm/dl Albumin/Globulin Ratio (0.9-2) Urine Color Urine Appearance (Clear) Urine pH (4.5-7.5) Ur Specific [place] (1.000-1.030) Urine Protein (Negative) Urine Glucose (UA) (Negative) Urine Ketones (Negative) Urine Blood (Negative) Urine Nitrite (Negative) Urine Bilirubin (Negative) Urine Urobilinogen (Negative) Ur Leukocyte Esterase (Negative) Urine WBC (Auto) (0-5) /hpf Urine RBC (Auto) (0-2) /hpf U Hyaline Cast (Auto) (0-2) /lpf U Epithel Cells (Auto) (0-2) /hpf Urine Bacteria (Auto) (None Seen) Adenovirus (PCR) (NotDetected) B. pertussis DNA (PCR) (NotDetected) B.parapertussis DNA PCR (NotDetected) C. pneumoniae DNA (PCR) (NotDetected) Coronavirus OC43 (PCR) (NotDetected) Coronavirus HKU1 (PCR) (NotDetected) Coronavirus 229E (PCR) (NotDetected) SARS-CoV-2 (PCR) (NotDetected) Coronavirus NL63 (PCR) (NotDetected) Human Metapneumovir PCR (NotDetected) Influenza Type A (PCR) (NotDetected) Influenza Type B (PCR) (NotDetected) M. pneumoniae (PCR) (NotDetected) Parainfluenza 1 (PCR) (NotDetected) Parainfluenza 2 (PCR) (NotDetected) Parainfluenza 3 (PCR) (NotDetected) Parainfluenza 4 (PCR) (NotDetected) RSV (PCR) (NotDetected) Entero/Rhino (PCR) (NotDetected) 05/17/24 05/18/24 05/18/24 Range/Units 20:45 05:46 08:05 WBC 9.37 (4.8-10.8) K/ul RBC 3.11 L (4.70-6.10) M/uL Hgb 10.6 L (14.0-18.0) g/dl Hct 30.3 L (42.0-52.0) % MCV 97.4 (80.0-100.0) fL MCH 34.1 H (25.0-34.0) pg MCHC 35.0 (32.0-36.0) g/dL RDW Std Deviation 49.9 H (36.4-46.3) fL RDW Coeff of Marjorie 14.0 (11.5-14.5) % Plt Count 140 (130-400) K/uL MPV 11.0 (9.4-12.4) fL Immature Gran % (Auto) % Neut % (Auto) % Lymph % (Auto) % [place] % (Auto) % Eos % (Auto) % Baso % (Auto) % Neut # (Auto) (1.40-6.50) K/uL Lymph # (Auto) (1.20-3.40) K/uL [place] # (Auto) (0.11-0.59) K/uL Eos # (Auto) (0.00-0.50) K/uL Baso # (Auto) (0.00-0.20) K/uL Immature Gran # (Auto) (0.01-0.20) K/uL Sodium 140 (136-145) mmol/L Potassium 4.0 (3.5-5.1) mmol/L Chloride 112 H (98-107) mmol/L Carbon Dioxide 25 (21-32) mmol/L Anion Gap 3 (3-11) BUN 22 (6-23) mg/dl Creatinine 1.07 (0.6-1.4) mg/dl Est Cr Clr Drug Dosing 66.9 ml/min eGFR 72.37 BUN/Creatinine Ratio 20.6 H (10-20) Glucose 74 (70-99(Fasting)) mg/dl POC Glucose 168 H 88 (70-99) mg/dl Calcium 8.0 L (8.6-10.3) mg/dl Phosphorus 2.9 (2.5-4.9) mg/dl Magnesium 1.8 (1.7-2.4) mg/dl Total Bilirubin 1.2 H (0.2-1.0) mg/dl Direct Bilirubin 0.3 H (0-0.2) mg/dl AST 48 H (13-39) U/L ALT 30 (7-52) U/L Alkaline Phosphatase 181 H (34-104) U/L Total Protein 6.0 (6.0-8.3) gm/dl Albumin 2.2 L (3.4-5.0) gm/dl Globulin (2.5-4.0) gm/dl Albumin/Globulin Ratio (0.9-2) Urine Color Urine Appearance (Clear) Urine pH (4.5-7.5) Ur Specific [place] (1.000-1.030) Urine Protein (Negative) Urine Glucose (UA) (Negative) Urine Ketones (Negative) Urine Blood (Negative) Urine Nitrite (Negative) Urine Bilirubin (Negative) Urine Urobilinogen (Negative) Ur Leukocyte Esterase (Negative) Urine WBC (Auto) (0-5) /hpf Urine RBC (Auto) (0-2) /hpf U Hyaline Cast (Auto) (0-2) /lpf U Epithel Cells (Auto) (0-2) /hpf Urine Bacteria (Auto) (None Seen) Adenovirus (PCR) (NotDetected) B. pertussis DNA (PCR) (NotDetected) B.parapertussis DNA PCR (NotDetected) C. pneumoniae DNA (PCR) (NotDetected) Coronavirus OC43 (PCR) (NotDetected) Coronavirus HKU1 (PCR) (NotDetected) Coronavirus 229E (PCR) (NotDetected) SARS-CoV-2 (PCR) (NotDetected) Coronavirus NL63 (PCR) (NotDetected) Human Metapneumovir PCR (NotDetected) Influenza Type A (PCR) (NotDetected) Influenza Type B (PCR) (NotDetected) M. pneumoniae (PCR) (NotDetected) Parainfluenza 1 (PCR) (NotDetected) Parainfluenza 2 (PCR) (NotDetected) Parainfluenza 3 (PCR) (NotDetected) Parainfluenza 4 (PCR) (NotDetected) RSV (PCR) (NotDetected) Entero/Rhino (PCR) (NotDetected) 05/18/24 05/18/24 Range/Units 11:39 16:45 WBC (4.8-10.8) K/ul RBC (4.70-6.10) M/uL Hgb (14.0-18.0) g/dl Hct (42.0-52.0) % MCV (80.0-100.0) fL MCH (25.0-34.0) pg MCHC (32.0-36.0) g/dL RDW Std Deviation (36.4-46.3) fL RDW Coeff of Marjorie (11.5-14.5) % Plt Count (130-400) K/uL MPV (9.4-12.4) fL Immature Gran % (Auto) % Neut % (Auto) % Lymph % (Auto) % [place] % (Auto) % Eos % (Auto) % Baso % (Auto) % Neut # (Auto) (1.40-6.50) K/uL Lymph # (Auto) (1.20-3.40) K/uL [place] # (Auto) (0.11-0.59) K/uL Eos # (Auto) (0.00-0.50) K/uL Baso # (Auto) (0.00-0.20) K/uL Immature Gran # (Auto) (0.01-0.20) K/uL Sodium (136-145) mmol/L Potassium (3.5-5.1) mmol/L Chloride (98-107) mmol/L Carbon Dioxide (21-32) mmol/L Anion Gap (3-11) BUN (6-23) mg/dl Creatinine (0.6-1.4) mg/dl Est Cr Clr Drug Dosing ml/min eGFR BUN/Creatinine Ratio (10-20) Glucose (70-99(Fasting)) mg/dl POC Glucose 137 H 106 H (70-99) mg/dl Calcium (8.6-10.3) mg/dl Phosphorus (2.5-4.9) mg/dl Magnesium (1.7-2.4) mg/dl Total Bilirubin (0.2-1.0) mg/dl Direct Bilirubin (0-0.2) mg/dl AST (13-39) U/L ALT (7-52) U/L Alkaline Phosphatase (34-104) U/L Total Protein (6.0-8.3) gm/dl Albumin (3.4-5.0) gm/dl Globulin (2.5-4.0) gm/dl Albumin/Globulin Ratio (0.9-2) Urine Color Urine Appearance (Clear) Urine pH (4.5-7.5) Ur Specific [place] (1.000-1.030) Urine Protein (Negative) Urine Glucose (UA) (Negative) Urine Ketones (Negative) Urine Blood (Negative) Urine Nitrite (Negative) Urine Bilirubin (Negative) Urine Urobilinogen (Negative) Ur Leukocyte Esterase (Negative) Urine WBC (Auto) (0-5) /hpf Urine RBC (Auto) (0-2) /hpf U Hyaline Cast (Auto) (0-2) /lpf U Epithel Cells (Auto) (0-2) /hpf Urine Bacteria (Auto) (None Seen) Adenovirus (PCR) (NotDetected) B. pertussis DNA (PCR) (NotDetected) B.parapertussis DNA PCR (NotDetected) C. pneumoniae DNA (PCR) (NotDetected) Coronavirus OC43 (PCR) (NotDetected) Coronavirus HKU1 (PCR) (NotDetected) Coronavirus 229E (PCR) (NotDetected) SARS-CoV-2 (PCR) (NotDetected) Coronavirus NL63 (PCR) (NotDetected) Human Metapneumovir PCR (NotDetected) Influenza Type A (PCR) (NotDetected) Influenza Type B (PCR) (NotDetected) M. pneumoniae (PCR) (NotDetected) Parainfluenza 1 (PCR) (NotDetected) Parainfluenza 2 (PCR) (NotDetected) Parainfluenza 3 (PCR) (NotDetected) Parainfluenza 4 (PCR) (NotDetected) RSV (PCR) (NotDetected) Entero/Rhino (PCR) (NotDetected) Administered Medications Discontinued Medications Acetaminophen (Acetaminophen 500 Mg Tab) 500 mg PO Q6H PRN PRN Reason: fever/pain Stop: 06/16/24 05:08 Last Admin: 05/17/24 23:49 Dose: 500 mg Documented By: Doxycycline Hyclate (Doxycycline Hyclate 100 Mg Cap) 100 mg PO BID [facility] Stop: 05/22/24 20:59 Last Admin: 05/19/24 08:00 Dose: 100 mg Documented By: Admin: 05/18/24 21:15 Dose: 100 mg Documented By: Admin: 05/18/24 08:28 Dose: 100 mg Documented By: Admin: 05/17/24 20:46 Dose: 100 mg Documented By: Enoxaparin Sodium (Enoxaparin Inj 40 Mg/0.4 Ml Syr) 40 mg SQ QAM KARLO Stop: 06/16/24 08:59 Last Admin: 05/19/24 08:00 Dose: 40 mg Documented By: Admin: 05/18/24 08:27 Dose: 40 mg Documented By: Admin: 05/17/24 08:57 Dose: 40 mg Documented By: AFSHAN Sodium Chloride (Nss) 1,000 mls @ 60 mls/hr IV .[id number] ONE Stop: 05/17/24 20:22 Last Infusion: 05/17/24 23:19 Dose: Infused Documented By: Admin: 05/17/24 05:25 Dose: 60 mls/hr Documented By: PAYAL Doxycycline Hyclate 100 mg/ (Dextrose) 100 mls @ 50 mls/hr IV NOW STA Stop: 05/17/24 06:56 Last Infusion: 05/17/24 07:34 Dose: Infused Documented By: Admin: 05/17/24 05:25 Dose: 50 mls/hr Documented By: PAYAL Promethazine HCl (Phenergan) 6.25 mg in 50.25 mls @ 201 mls/hr IV Q6H PRN PRN Reason: Nausea And Vomiting Stop: 06/16/24 05:08 Last Infusion: 05/18/24 00:08 Dose: Infused Documented By: Admin: 05/17/24 23:49 Dose: 201 mls/hr Documented By: Insulin Aspart (Insulin Aspart Per Unit Charge) 0 units SC ACHS KARLO Stop: 06/16/24 04:20 Last Admin: 05/19/24 17:36 Dose: 5 units Documented By: HEMAL Co-signed By: [facility] [place] Admin: 05/19/24 12:54 Dose: 5 units Documented By: HEMAL Co-signed By: [facility] [place] Admin: 05/19/24 08:53 Dose: 3 units Documented By: HEMAL Co-signed By: [facility] [place] Admin: 05/18/24 20:13 Dose: Not Given Documented By: SENG Co-signed By: ELISE Admin: 05/18/24 18:27 Dose: Not Given Documented By: Admin: 05/18/24 13:06 Dose: 2 units Documented By: JULISA Co-signed By: REINAC Admin: 05/18/24 09:40 Dose: Not Given Documented By: Admin: 05/17/24 20:51 Dose: 2 units Documented By: Co-signed By: MICKY Admin: 05/17/24 18:28 Dose: Not Given Documented By: Admin: 05/17/24 13:37 Dose: 2 units Documented By: AFSHAN Co-signed By: JOSE Admin: 05/17/24 05:27 Dose: Not Given Documented By: PAYAL Co-signed By: JOANN Midodrine (Midodrine Hcl 2.5 Mg Tab) 7.5 mg PO TIDM KARLO Stop: 06/16/24 07:59 Last Admin: 05/17/24 08:57 Dose: 7.5 mg Documented By: AFSHAN Midodrine (Midodrine Hcl 2.5 Mg Tab) 7.5 mg PO TIDM KARLO Stop: 06/16/24 11:59 Last Admin: 05/19/24 16:23 Dose: Not Given Documented By: Admin: 05/19/24 12:27 Dose: Not Given Documented By: Admin: 05/19/24 08:00 Dose: Not Given Documented By: Admin: 05/18/24 17:42 Dose: 7.5 mg Documented By: Admin: 05/18/24 12:25 Dose: 7.5 mg Documented By: Admin: 05/18/24 09:40 Dose: 7.5 mg Documented By: Admin: 05/17/24 17:29 Dose: Not Given Documented By: Admin: 05/17/24 12:32 Dose: 7.5 mg Documented By: AFSHAN Oxycodone HCl (Oxycodone Hcl Ir 5 Mg Tab (Immediate Release)) 10 mg PO NOW STA Stop: 05/17/24 01:58 Last Admin: 05/17/24 02:08 Dose: 10 mg Documented By: PAYAL Oxycodone HCl (Oxycodone Hcl Ir 5 Mg Tab (Immediate Release)) 10 mg PO ACHS KARLO Stop: 05/31/24 07:29 Last Admin: 05/19/24 16:24 Dose: 10 mg Documented By: Admin: 05/19/24 11:24 Dose: 10 mg Documented By: Admin: 05/19/24 08:00 Dose: 10 mg Documented By: Admin: 05/18/24 21:14 Dose: 10 mg Documented By: Admin: 05/18/24 17:41 Dose: 10 mg Documented By: Admin: 05/18/24 12:24 Dose: 10 mg Documented By: Admin: 05/18/24 08:26 Dose: 10 mg Documented By: Admin: 05/17/24 20:46 Dose: 10 mg Documented By: Admin: 05/17/24 17:28 Dose: 10 mg Documented By: Admin: 05/17/24 12:32 Dose: 10 mg Documented By: Admin: 05/17/24 07:53 Dose: 10 mg Documented By: AFSHAN Sodium Chloride (Sodium Chloride 1 Gm Tablet) 1 gm PO BID KARLO Stop: 06/16/24 08:59 Last Admin: 05/19/24 08:00 Dose: 1 gm Documented By: Admin: 05/18/24 21:15 Dose: 1 gm Documented By: Admin: 05/18/24 08:27 Dose: 1 gm Documented By: Admin: 05/17/24 21:12 Dose: 1 gm Documented By: Admin: 05/17/24 08:57 Dose: 1 gm Documented By: AFSHAN Imaging Data Attestation: I personally reviewed and interpreted this imaging study as follows: Discharge Plan Visit Data Chief Complaint: Dizziness Stated Complaint: DIZZY ED Provider: Brandy Palacios ED Midlevel Provider: Nory Corey Discharge Problem: Orthostatic hypotension Patient Disposition: Admitted As Inpatient Discharge Instructions Interventions: ED Discharge Assessment Last Done: 05/17/24 04:21
[2024-05-17] MEDS: oxyCODONE HCL IR 5 MG TAB (IMMEDIATE RELEASE) PO STA (02:08)
--- NOTE | 2024-05-17 02:47 | XRay Report ---
EXAM: XR chest 2V PA/lateral CLINICAL HISTORY: r/o pna TECHNIQUE: X-ray images of the chest were obtained in posteroanterior (PA) and lateral projections. COMPARISON: prior 04/10/2024. FINDINGS: Pulmonary Parenchyma: Prominent both hilar and bronchovascular markings, mostly congestion/bronchitis. Bilateral lower zones inhomogeneous opacity. Blunting of right costophrenic angles. The left is not very clear. Could be pleural effusion or thickening. Heart and Mediastinum: Mild cardiomegaly. No mediastinal widening or masses. No hilar or mediastinal lymphadenopathy. Bony Thorax: Bony thorax appears intact without fractures or deformities. Soft Tissues: Soft tissues overlying the chest wall are unremarkable. IMPRESSION: 1. Unchanged mild cardiomegaly with prominent both hilar and bronchovascular markings, mostly congestion/bronchitis. 2. Redemonstration of bilateral lower zones inhomogeneous opacity. Could be old dependent changes, or infectious/inflammatory process. clinical correlation is advised. 3. Blunting of right costophrenic angles. The left is not very clear. Stable. Could be pleural effusion or thickening. Electronically signed by Jeffrey Pineda 05-17-2024 02:47 AM
--- NOTE | 2024-05-17 03:48 | History & Physical Report ---
Date of Service May 17, 2024 Assessment & Plan (1) Dizziness on standing: Plan: Recurrent orthostasis History autonomic neuropathy currently on midodrine and sodium chloride tablets. 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 Lovenox subcu Full code Patient requesting updates providers. Ms. Sinai Munoz, contact #[phone]. Text document was generated using [employer] voice recognition software. It may contain grammatical or spelling errors. Kindly contact undersigned for clarification of any documentation item in question. History of Present Illness Chief Complaint: Dizziness, coughing Primary Care Provider: Jerzy Glez MD History obtained from patient and records. 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 Monthly admissions since February 2024. Recent confinement last month for recurrent dizziness attributed to orthostatic hypotension Patient also treated for possible pneumonia. Patient discharged on salt tablets as per nephrology recommendations. Patient seen at Neurology office for evaluation of dizziness last week. Lowest SBP of 80s documented at the office. Right upper extremity cogwheel rigidity and mild postural tremor noted on exam. Patient started on midodrine for orthostatic hypotension attributed to autonomic neuropathy.. Outpatient testing recommended for possible Parkinson's variant and neuropathy testing. Neurologist also recommended discontinuing trazodone. Midodrine dose titrated upwards following outpatient nephrology recommendations as per records. 2 days ago, patient noted cough symptoms productive of dark sputum. Denies chest pain or unusual shortness of breath. No known exposure to sick animals/dairy cows/raw milk/wild birds/poultry/agricultural fair attendance/recent travel to an area of known H5N1 animal outbreaks. Denies aspiration. Patient with recurrent episode of dizziness described as lightheadedness especially on standing up as per . BP drops noted at home. Fall at home without head trauma or LOC. Patient brought to ER for evaluation. Positive orthostatic vitals documented at the ER. SBP drop from 1 40 to 110 on position change. 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 Allergies Allergy/AdvReac Type Severity Reaction Status Date / Time lisinopril Allergy Dizziness Verified 05/17/24 04:21 losartan Allergy Dizziness Verified 05/17/24 04:21 Home Medications Medication Instructions Recorded Confirmed Type oxycodone 10 mg tablet 10 mg PO QID 01/02/22 05/17/24 History Tylenol PM Extra Strength 25 - 500 mg PO PRN Sleep/Pain 05/17/24 History midodrine 5 mg PO TID 05/17/24 05/17/24 History sodium chloride 1 g PO BID 05/17/24 05/17/24 History Past Med/Surg History Problem List (Updated 05/17/24 @ 09:04 by Mark Wong MD) Dizziness on standing Pneumonia Chronic diastolic congestive heart failure Autonomic dysfunction Autonomic postural hypotension Hyponatremia Positional lightheadedness JUWAN (acute kidney injury) (Acute) Leukocytosis (Acute) Cirrhosis Dehydration (Acute) Dizziness (Acute) COVID-19 Depression Hypertension, essential Dizziness (Acute) Generalized weakness (Acute) COVID-19 (Acute) Generalized weakness (Acute) Leukocytosis (Acute) Fever (Acute) Acute exacerbation of CHF (congestive heart failure) (Acute) Shortness of breath (Acute) Bilateral edema of lower extremity (Acute) Recent weight gain (Acute) Hypomagnesemia (Acute) Acute on chronic heart failure with preserved ejection fraction (HFpEF) Chest pressure (Acute) Acute exacerbation of CHF (congestive heart failure) (Acute) Multiple rib fractures (Acute) History of cholecystectomy Previous back surgery Rib pain (Acute 09/10/10) Subacute bacterial endocarditis (Acute 09/24/10) Medical History Anemia Cirrhosis H/O endocarditis DMII (diabetes mellitus, type 2) CKD (chronic kidney disease), stage III Hypertensive urgency Acute decompensated heart failure Opioid type dependence, unspecified Social History Smoking Status: Former smoker Tobacco Type: Cigarettes Cigarettes Per Day: 15; Second Hand Exposure: No; Do You Dip or Chew Tobacco: No; Hx Alcohol Use: No Hx Substance Use: No Preferred Language: Ukrainian Communication Ability: Effective Engineering Supervisor Required: No Beliefs That Will Affect Care: None marital status: Current Living Situation: Spouse Other Information That Helps Us Care for You: No Feels Safe at Home: Yes Safety Concerns: Feels Safe At This Time Assistive Devices: Denture - Upper and Denture - Lower Review of Systems Review of Systems: As per HPI, all other systems reviewed and negative Physical Exam Physical Exam: GENERAL: Slightly uncomfortable, no respiratory distress SKIN: Pallor, warm HEENT: Pale palpebral conjunctivae, no ptosis, dry buccal mucosa NECK : Supple, no tenderness CHEST : Decreased breath sounds, occasional expiratory wheezes, no tenderness HEART : RRR, systolic murmur ABDOMEN: Some distention, nontender EXTREMITIES : Minimal LE swelling, no LE tenderness, no other conspicuous deformities noted NEUROLOGIC : Coherent, no facial asymmetry, intention tremors, gait and stance not assessed Results & Data Results & Data Vital Signs (Past 12 Hours) Vital Signs Temp Pulse Pulse Resp BP BP Pulse Ox 05/17/24 03:00 63 18 144/69 H 97 05/17/24 02:48 63 05/17/24 01:00 73 18 147/71 H 98 05/16/24 23:11 70 18 168/100 H 97 05/16/24 22:51 73 05/16/24 22:35 36.5 C 85 16 159/73 H 98 O2 Del Method 05/17/24 03:00 Room Air 05/17/24 02:48 05/17/24 01:00 Room Air 05/16/24 23:11 Room Air 05/16/24 22:51 05/16/24 22:35 Room Air Laboratory Results Laboratory Results WBC 11.91 K/ul (4.8-10.8) H 05/16/24 22:48 RBC 3.57 M/uL (4.70-6.10) L 05/16/24 22:48 Hgb 12.1 g/dl (14.0-18.0) L 05/16/24 22:48 Hct 35.3 % (42.0-52.0) L 05/16/24 22:48 MCV 98.9 fL (80.0-100.0) 05/16/24 22:48 MCH 33.9 pg (25.0-34.0) 05/16/24 22:48 MCHC 34.3 g/dL (32.0-36.0) 05/16/24 22:48 RDW Std Deviation 50.4 fL (36.4-46.3) H 05/16/24 22:48 RDW Coeff of Marjorie 13.8 % (11.5-14.5) 05/16/24 22:48 Plt Count 179 K/uL (130-400) 05/16/24 22:48 MPV 10.8 fL (9.4-12.4) 05/16/24 22:48 Immature Gran % (Auto) 0.3 % 05/16/24 22:48 Neut % (Auto) 57.4 % 05/16/24 22:48 Lymph % (Auto) 27.7 % 05/16/24 22:48 Cuming % (Auto) 8.4 % 05/16/24 22:48 Eos % (Auto) 5.5 % 05/16/24 22:48 Baso % (Auto) 0.7 % 05/16/24 22:48 Neut # (Auto) 6.85 K/uL (1.40-6.50) H 05/16/24 22:48 Lymph # (Auto) 3.30 K/uL (1.20-3.40) 05/16/24 22:48 Cuming # (Auto) 1.00 K/uL (0.11-0.59) H 05/16/24 22:48 Eos # (Auto) 0.65 K/uL (0.00-0.50) H 05/16/24 22:48 Baso # (Auto) 0.08 K/uL (0.00-0.20) 05/16/24 22:48 Immature Gran # (Auto) 0.03 K/uL (0.01-0.20) 05/16/24 22:48 Sodium 136 mmol/L (136-145) 05/16/24 22:48 Potassium 4.4 mmol/L (3.5-5.1) 05/16/24 22:48 Chloride 105 mmol/L (98-107) 05/16/24 22:48 Carbon Dioxide 28 mmol/L (21-32) 05/16/24 22:48 Anion Gap 3 (3-11) 05/16/24 22:48 BUN 20 mg/dl (6-23) 05/16/24 22:48 Creatinine 1.06 mg/dl (0.6-1.4) 05/16/24 22:48 Est Cr Clr Drug Dosing 67.5 ml/min 05/16/24 22:48 eGFR 73.19 05/16/24 22:48 BUN/Creatinine Ratio 18.9 (10-20) 05/16/24 22:48 Glucose 128 mg/dl (70-99(Fasting)) H 05/16/24 22:48 Calcium 8.2 mg/dl (8.6-10.3) L 05/16/24 22:48 Total Bilirubin 1.0 mg/dl (0.2-1.0) 05/16/24 22:48 AST 70 U/L (13-39) H 05/16/24 22:48 ALT 40 U/L (7-52) 05/16/24 22:48 Alkaline Phosphatase 232 U/L (34-104) H 05/16/24 22:48 Total Protein 6.9 gm/dl (6.0-8.3) 05/16/24 22:48 Albumin 2.7 gm/dl (3.4-5.0) L 05/16/24 22:48 Globulin 4.2 gm/dl (2.5-4.0) H 05/16/24 22:48 Albumin/Globulin Ratio 0.6 (0.9-2) L 05/16/24 22:48 Urine Color Yellow 05/17/24 00:35 Urine Appearance Clear (Clear) 05/17/24 00:35 Urine pH 6.0 (4.5-7.5) 05/17/24 00:35 Ur Specific Stella 1.016 (1.000-1.030) 05/17/24 00:35 Urine Protein Trace (Negative) H 05/17/24 00:35 Urine Glucose (UA) Negative (Negative) 05/17/24 00:35 Urine Ketones Negative (Negative) 05/17/24 00:35 Urine Blood Negative (Negative) 05/17/24 00:35 Urine Nitrite Negative (Negative) 05/17/24 00:35 Urine Bilirubin Negative (Negative) 05/17/24 00:35 Urine Urobilinogen Negative (Negative) 05/17/24 00:35 Ur Leukocyte Esterase Negative (Negative) 05/17/24 00:35 Urine WBC (Auto) 0-5 /hpf (0-5) 05/17/24 00:35 Urine RBC (Auto) 0-2 /hpf (0-2) 05/17/24 00:35 U Hyaline Cast (Auto) 0-2 /lpf (0-2) 05/17/24 00:35 U Epithel Cells (Auto) 0-2 /hpf (0-2) 05/17/24 00:35 Urine Bacteria (Auto) None Seen (None Seen) 05/17/24 00:35 Adenovirus (PCR) Not Detected (NotDetected) 05/16/24 22:48 B. pertussis DNA (PCR) Not Detected (NotDetected) 05/16/24 22:48 B.parapertussis DNA PCR Not Detected (NotDetected) 05/16/24 22:48 C. pneumoniae DNA (PCR) Not Detected (NotDetected) 05/16/24 22:48 Coronavirus OC43 (PCR) Not Detected (NotDetected) 05/16/24 22:48 Coronavirus HKU1 (PCR) Not Detected (NotDetected) 05/16/24 22:48 Coronavirus 229E (PCR) Not Detected (NotDetected) 05/16/24 22:48 SARS-CoV-2 (PCR) Not Detected (NotDetected) 05/16/24 22:48 Coronavirus NL63 (PCR) Not Detected (NotDetected) 05/16/24 22:48 Human Metapneumovir PCR Not Detected (NotDetected) 05/16/24 22:48 Influenza Type A (PCR) Not Detected (NotDetected) 05/16/24 22:48 Influenza Type B (PCR) Not Detected (NotDetected) 05/16/24 22:48 M. pneumoniae (PCR) Not Detected (NotDetected) 05/16/24 22:48 Parainfluenza 1 (PCR) Not Detected (NotDetected) 05/16/24 22:48 Parainfluenza 2 (PCR) Not Detected (NotDetected) 05/16/24 22:48 Parainfluenza 3 (PCR) Not Detected (NotDetected) 05/16/24 22:48 Parainfluenza 4 (PCR) Not Detected (NotDetected) 05/16/24 22:48 RSV (PCR) Not Detected (NotDetected) 05/16/24 22:48 Entero/Rhino (PCR) Not Detected (NotDetected) 05/16/24 22:48 Impressions Chest X-Ray 05/17/24 00:58 EXAM: XR chest 2V PA/lateral CLINICAL HISTORY: r/o pna TECHNIQUE: X-ray images of the chest were obtained in posteroanterior (PA) and lateral projections. COMPARISON: prior 04/10/2024. FINDINGS: Pulmonary Parenchyma: Prominent both hilar and bronchovascular markings, mostly congestion/bronchitis. Bilateral lower zones inhomogeneous opacity. Blunting of right costophrenic angles. The left is not very clear. Could be pleural effusion or thickening. Heart and Mediastinum: Mild cardiomegaly. No mediastinal widening or masses. No hilar or mediastinal lymphadenopathy. Bony Thorax: Bony thorax appears intact without fractures or deformities. Soft Tissues: Soft tissues overlying the chest wall are unremarkable. IMPRESSION: 1. Unchanged mild cardiomegaly with prominent both hilar and bronchovascular markings, mostly congestion/bronchitis. 2. Redemonstration of bilateral lower zones inhomogeneous opacity. Could be old dependent changes, or infectious/inflammatory process. clinical correlation is advised. 3. Blunting of right costophrenic angles. The left is not very clear. Stable. Could be pleural effusion or thickening. Electronically signed by Jeffrey Pineda 05-17-2024 02:47 AM Diagnostic Findings EKG as per my interpretation :Rate 70, NSR, LAD, LAFB, LVH, no ischemia
--- NOTE | 2024-05-17 04:06 | Emergency Department Note ---
ED Visit Note I was consulted by the Advanced Practice Provider. I personally made/approved the management plan and take responsibility for the patient management. I performed a substantive portion of the visit. This includes the aspects of: Personally seeing the patient -MDM -I independently interpreted the following studies: portable chest x-ray: No significant findings. Unchanged from previous chest x-rays the patient is significantly orthostatic with any type of change in position. There is concerned that he may fall upon standing. The patient will be admitted to the hospitalist service. .
[2024-05-17] MEDS ORDERED: GLUCAGON FOR INJ 1 MG VIAL SQ PRN (04:21)
[2024-05-17] MEDS ORDERED: GLUCOSE 40% GEL 15 GM TUBE PO PRN (04:21)
[2024-05-17] MEDS ORDERED: CARBOHYDRATES FOR HYPOGLYCEMIA PO PRN (04:21)
[2024-05-17] MEDS ORDERED: DEXTROSE 50% 50 ML SYRINGE IV PRN (04:21)
[2024-05-17] MEDS ORDERED: GLUCOSE 10 TAB/TUBE PO PRN (04:21)
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
--- OUTSIDE RECORDS SUMMARY | 2024-05-17 04:47 | External Medical Summary | Summary of Care ---
Author Name Unknown Organization [facility] Address [address] [place] [address] Phone [phone] Care Team Providers Care Crusher Plant Operator Name Role Phone Deb Camara MD Primary Care Provider [phone] Reason for Visit * Reason Onset Date Comments Appointment 05/14/2024 Nuclear Med Encounter Details Date Type Department Care Team (Late st Contact Info) Description 05/14/2024 Telephone Neurology [facility] 200 [facility] [place] [address] Meme Perez MD 200 [place] [address] Appointment (Nuclear Med) Allergies Active Allergy Reactions Criticality Noted Date Comments Lisinopril 12/05/2023 dizziness Losartan 05/24/2023 Dizziness documented as of this encounter (statuses as of 05/14/2024) Medications traZODone HCl 100 MG Oral Tablet [...] as of this encounter (statuses as of 05/14/2024) Active Problems Problem Noted Date Diagnosed Date [...] as of this encounter (statuses as of 05/14/2024) Resolved Problems Problem Noted Date Diagnosed Date [...] as of this encounter (statuses as of 05/14/2024) Immunizations Name Administration Dates Next Due COVID-19 mRNA, LNP-s, No Pre serve, 2-Dose Series (ClickN KIDS) 02/02/2021,06/14/2020,05/24/2020 COVID-19, LNP-s, No Preserve , Ellis-sucrose, [...] encounter Miscellaneous Notes * Telephone Encounter - Carlie Wright OSA - 05/14/2024 2:05 PM EST THIS WAS SENT TO THE WRONG POOL * Telephone Encounter - Adali Chino OSA - 05/14/2024 1:30 PM EST Pt needs a datscan scheduled. Please reach out to pt documented in this encounter Plan of Treatment Upcoming Encounters Date Type Department Care Team (Late st Contact Info) Description 05/25/2024 1:00 PM EST [facility]medicine [facility] [address] [facility] [address] Jackson Munoz MD [address] [facility] [place] [address] 05/28/2024 11:40 AM EST Office Visit Nephrology, [facility] [address] [place] [address] Kerri Garcia MD [address] [place] [address] 06/28/2024 1:00 PM EDT Office Visit Neurology [employer] [address] [place] [address] Meme Perez MD [address] [place] [address] 07/03/2024 2:40 PM EDT Office Visit [facility] [address] [place] [phone] Jerzy Glez MD 226 [facility] [place] [address] 07/31/2024 11:40 AM EDT Office Visit Nephrology, [facility] [address] [place] [address] Kerri Garcia MD [address] [place] [address] 08/21/2024 11:00 AM EDT Office Visit Cardiology, [facility] [address] [facility] [place] [address] Sandra Laura CRNP [address] [place] [address] 10/02/2024 10:40 AM EDT Office Visit [facility] [address] [facility] [place] [phone] Deb Camara MD [facility] [address] 11/12/2024 11:20 AM EDT Office Visit Hepatology, [facility] [address] [place] [address] Kaity Comer DO [address] [place] [address] Scheduled Procedures Name Priority Associated Diagnoses Date/Ti [...] Additional history exists CKD PHOS USE SMARTSET 56933 04/19/202503/29, 10/07/2022, 08/17/2021, Additional history exists B-12 05/10/2025 05/10/2024, 10/2023, 01/04/2023, Additional history exists CKD HGB USE SMARTSET 00413 05/10/202505/10, 05/10/2024, 04/24/2024, Additional history exists DTap/Tdap [...] this encounter Medical Devices Implanted Type Area City Driver Device Identifier Shelf Expiration Date Model / Serial / Lot Lens 19.0 [id number] - [id number] - [id number] Implanted:Qty: 1 on 08/09/2016 by Madi Frederick MD at OR [facility] Right: Eye KIM[employer] : SURGICAL 2018 [id number] / [id number] / Hemostatic Clip Res 235cm - [id number] Implanted:Qty: 1 on 05/09/[address] MD at ENDOSCOPY [facility] N/A: Stomach [employer] : ENDOSCOPY 11/15/2025 [id number] / / documented as of this encounter Advance Directives * Full Code (Latest Code Status on File) Date Activated Date Inactivated Comments 08/09/2016 2:37 PM 08/09/2016 7:17 PM This order r eflects the patients wishes and were consensually agreed upon. Care Teams Crusher Plant Operator Relationship Specialty Start Date End Date Deb Camara MD [address] [place] [address] PCP - General Internal Medicine 05/09/24 documented as of this encounter
--- OUTSIDE RECORDS SUMMARY | 2024-05-17 04:47 | External Medical Summary | Summary of Care ---
Author Name Unknown Organization [facility] Address [address] [place] [address] Phone [phone] Care Team Providers Care Service Attendant Name Role Phone Deb Camara MD Primary Care Provider [phone] Reason for Visit * Reason Onset Date Comments Appointment 05/14/2024 Nuclear Med Encounter Details Date Type Department Care Team (Late st Contact Info) Description 05/14/2024 Telephone Neurology [facility] 200 [place] [address] Meme Perez MD 200 [place] [address] Appointment (Nuclear Med) Allergies Active Allergy Reactions [...] mRNA, LNP-s, No Pre serve, 2-Dose Series (sougou) 02/02/2021,06/14/2020,05/24/2020 COVID-19, LNP-s, No Preserve , Ellis-sucrose, [...] [facility] [address] [facility] [address] Jackson Munoz MD [address] [facility] [place] [address] 05/28/2024 11:40 AM EST Office Visit Nephrology, [facility] [address] [place] [address] Kerri Garcia MD [address] [place] [address] 06/28/2024 1:00 PM EDT Office Visit Neurology [employer] [address] [place] [address] Meme Perez MD [address] [place] [address] 07/03/2024 2:40 PM EDT Office Visit [facility] [address] [facility] [place] [phone] Jerzy Glez MD 226 [facility] [place] [address] 07/31/2024 11:40 AM EDT Office Visit Nephrology, [facility] [address] [place] [address] [address] Kerri Garcia MD [address] [place] [address] 08/21/2024 11:00 AM EDT Office Visit Cardiology, [facility] [address] [facility] [place] [address] Sandra Laura CRNP [address] [place] [address] 10/02/2024 10:40 AM EDT Office Visit [facility] 226 [facility] [place] [phone] Deb Camara MD 226 [facility] [address] 11/12/2024 11:20 AM EDT Office Visit Hepatology, [facility] [address] [place] [address] Kaity Comer DO [address] [place] [address] Scheduled Procedures Name Priority Associated Diagnoses Date/Ti [...] Additional history exists CKD PHOS USE SMARTSET 54945 04/19/202503/29, 10/07/2022, 08/17/2021, Additional history exists B-12 05/10/2025 05/10/2024, 10/2023, 01/04/2023, Additional history exists CKD HGB USE SMARTSET 73845 05/10/202505/10, 05/10/2024, 04/24/2024, Additional history exists DTap/Tdap [...] encounter Medical Devices Implanted Type Area Chemical Lab Technician Device Identifier Shelf Expiration Date Model / Serial / Lot Lens 19.0 Cz70bd - [id number] - [id number] Implanted:Qty: 1 on 08/09/2016 by Madi Frederick MD at [facility] Right: Eye KIMMIE : SURGICAL 2018 [id number] / [id number] / Hemostatic Clip Res 235cm - [id number] Implanted:Qty: 1 on 05/09/[address] MD at ENDOSCOPY [facility] N/A: Stomach [employer] : ENDOSCOPY 11/15/2025 [id number] / / documented as of this encounter Advance Directives * Full Code (Latest Code Status on File) Date Activated Date Inactivated Comments 08/09/2016 2:37 PM 08/09/2016 7:17 PM This order r eflects the patients wishes and were consensually agreed upon. Care Teams Service Attendant Relationship Specialty Start Date End Date Deb Camara MD [address] [place] [address] PCP - General Internal Medicine 05/09/24 documented as of this encounter
--- OUTSIDE RECORDS SUMMARY | 2024-05-17 04:48 | External Medical Summary | Summary of Care ---
Author Name Unknown Organization [facility] Address [address] [facility] [place] [address] Phone [phone] Care Team Providers Care Ordnance Corps Officer Name Role Phone Deb Camara MD Primary Care Provider Reason for Visit * Reason Onset Date Comments Follow Up 05/03/2024 Encounter Details Date Type Department Care Team (Late st Contact Info) Description 05/03/2024 Telephone [address] [place] [phone] Kerri Garcia MD [address] [place] [address] [place] [phone] Follow Up Allergies Active Allergy Reactions Criticality Noted Date [...] differently:5 mg OralBID (.AM/PM), Reported on 05/10/2024 documented as of this encounter (statuses as [...] mRNA, LNP-s, No Pre serve, 2-Dose Series (H-umus) 02/02/2021,06/14/2020,05/24/2020 COVID-19, LNP-s, No Preserve , Ellis-sucrose, Ages 12+ (H-umus) 10/08/2021 Pneumococcal Conjugate Vacc, 13 Valent (Prevnar) [...] encounter Miscellaneous Notes * Telephone Encounter - Jaja Quiroz LPN - 05/10/2024 3:06 PM EST Looks like pt was seen today neurology * Telephone Encounter - Bee Parikh RN - 05/09/2024 2:50 PM EST Note sent to neurology department for referral appointment. * Telephone Encounter - Bee Parikh RN - 05/04/2024 8:07 AM EST Orthostatic VS were obtained during intital assessment. Sitting 145/55 pulse 68 Standing 94/41 pulse 89. They are in Vital signs but not easy to find. * Telephone Encounter - Bee Parikh RN - 05/04/2024 8:06 AM EST ----- Message from Kerri Garcia MD sent at 05/03/2024 5:14 PM EST ----- Regarding: orthostatics? A friend just double checking if he can remember back to Tuesday: I think you did orthostatics for Delvis: If so our they documented anywhere? Or was he too symptomatic just sitting with systolic pressures of 90s for you to even consider doing orthostatics? Sorry I can not remember * Telephone Encounter - Kerri Garcia MD - 05/03/2024 5:55 PM EST Neph nurse -pls see 2/3 note re DME rx for abd binder > pls push forward as able and update pt on status Neph nurse/corporate planning manager : how to do testing for adrenal insufficiency > a complicated series of steps that need to be done between 6 and 9 AM: >draw baseline cortisol and bmp and ACTH, carlitos/renin -inject cosyntropin 250 mcg IM -re draw cortisol, ACTH 30 and 60 min post injection >>we would need to get the medication (cosyntropin?from his OP pharmacy or do at infusion center? ), Bee could give it; lab could draw it >> but >>need to know how/where to do this AI testing> pls find out and update me and pt documented in this encounter Plan of Treatment Upcoming Encounters Date Type Department Care Team (Late st Contact Info) Description 05/25/2024 1:00 PM EST Telemedicine [facility] [address] [facility] [place] [address] Jackson Munoz MD [address] [facility] [place] [address] 05/28/2024 11:40 AM EST Office Visit Nephrology, [facility] [address] [place] [address] Kerri Garcia MD [address] [place] [address] 06/28/2024 1:00 PM EDT Office Visit Neurology [facility] [place] [address] [place] [address] Meme Perez MD 200 [facility] [place] [address] 07/03/2024 2:40 PM EDT Office Visit [facility] 226 [place] [phone] Jerzy Glez MD 226 [facility] [address] 07/31/2024 11:40 AM EDT Office Visit Nephrology, [facility] [address] [place] [address] Kerri Garcia MD [address] [place] [address] 08/21/2024 11:00 AM EDT Office Visit Cardiology, [facility] [address] [place] [address] Sandra Laura CRNP 132 [facility] [place] [address] 10/02/2024 10:40 AM EDT [facility] Visit [facility] [place] [address] [place] [phone] Deb Camara MD [address] [place] [address] 11/12/2024 11:20 AM EDT Office Visit Hepatology, [facility] [address] [place] [address] Kaity Comer DO [address] [place] [address] Scheduled Procedures Name Priority Associated Diagnoses Date/Ti [...] Additional history exists CKD PHOS USE SMARTSET 09482 04/19/202503/29, 10/07/2022, 08/17/2021, Additional history exists CKD HGB USE SMARTSET 88490 05/10/202505/10, 04/24/2024, 02/10/2024, Additional history exists DTap/Tdap [...] this encounter Medical Devices Implanted Type Area Floral Associate Device Identifier Shelf Expiration Date Model / Serial / Lot Lens 19.0 Cz70bd - [id number] - [id number] Implanted:Qty: 1 on 08/09/2016 by Madi Frederick MD at [facility] Right: Eye KIMMIE : SURGICAL 2018 [id number] / [id number] / Hemostatic Clip Res 235cm - [id number] Implanted:Qty: 1 on 05/09/[address] MD at ENDOSCOPY [facility] N/A: Stomach [employer] : ENDOSCOPY 11/15/2025 [id number] / / documented as of this encounter Advance Directives * Full Code (Latest Code Status on File) Date Activated Date Inactivated Comments 08/09/2016 2:37 PM 08/09/2016 7:17 PM This order r eflects the patients wishes and were consensually agreed upon. Care Teams Ordnance Corps Officer Relationship Specialty Start Date End Date Deb Camara MD 226 [facility] [place] [address] PCP - General Internal Medicine 05/09/24 documented as of this encounter
--- OUTSIDE RECORDS SUMMARY | 2024-05-17 04:48 | External Medical Summary ---
Author Name Unknown Address Unknown Organization [id number]:[facility] [place] [address] [place] [address] Laboratory Report Ordering Provider Test Date Status CHARLOTTE WHITT 05/10/2024 14:42:07 Final Observation Date Value Abnormality Reference (Units ) Status TSH 05/10/2024 14:42:07 1.79 0.27-4.20 (uIU/mL) Final Performing Location [facility] - [address] [place] [address]
--- OUTSIDE RECORDS SUMMARY | 2024-05-17 04:48 | External Medical Summary ---
Author Name Unknown Address Unknown Organization [id number]:LABORATORY [facility] [place] - [address] [place] [address] Laboratory Report Ordering Provider Test Date Status PHILIP FRASER 05/10/2024 14:42:07 Final Observation Date Value Abnormality Reference (Units ) Status Folic Acid 05/10/2024 14:42:07 18.0 >4.5 (ng/ mL) Final Performing Location [facility] - [address] [place] [address]
--- OUTSIDE RECORDS SUMMARY | 2024-05-17 04:48 | External Medical Summary ---
Author Name Unknown Address Unknown Organization K01:[facility] - [address] [place] [address] Laboratory Report Ordering Provider Test Date Status CHARLOTTE WHITT 05/10/2024 14:42:07 Final Observation Date Value Abnormality Reference (Units ) Status Ferritin 05/10/2024 14:42:07 836 Above high normal 30 -400 (ng/mL) Final Performing Location [facility] - [address] [place] [address]
--- OUTSIDE RECORDS SUMMARY | 2024-05-17 04:48 | External Medical Summary ---
Author Name Unknown Address Unknown Organization [id number]:LABORATORY [facility] [place] - [address] [place] [address] Laboratory Report Ordering Provider Test Date Status PHILIP FRASER 05/10/2024 14:42:07 Final Observation Date Value Abnormality Reference (Units ) Status HbA1C 05/10/2024 14:42:07 5.1 4.0-5.6 (% ) Final The use of HbA1c to monitor glycemic status is based on normal hemoglobin and HbA composition. This test should not be used in patients with abnormal hemoglobin that affects the half life of the red blood cell or the in vivo glycation rates. Glucose, estimated average 05/10/2024 14:42:07 100 <126 (mg/dL) Final Performing Location [facility] - [address] [place] [address]
--- OUTSIDE RECORDS SUMMARY | 2024-05-17 04:48 | External Medical Summary ---
Author Name Unknown Address Unknown Organization K09:LABORATORY [place] [address] Laboratory Report Ordering Provider Test Date Status CHARLOTTE WHITT 05/10/2024 14:42:07 Final Observation Date Value Abnormality Reference (Units ) Status WBC, Total 05/10/2024 14:42:07 11.48 Above high normal 4 .00-10.80 (K/uL) Final RBC 05/10/2024 14:42:07 3.63 4.50-5.25 (M/uL) Final Hemoglobin 05/10/2024 14:42:07 12.4 Below low normal 14 .0-16.8 (g/dL) Final Anemia reflex testing trigge rs on a HGB < 12.0 for Females and HGB < 13.0 for Males in accordance with the WHO Anemia Guidelines
Anemia reflex testing triggers on a HGB < 12.0 for Females and HGB < 13.0 for Males in accordance with the WHO Anemia Guidelines HCT 05/10/2024 14:42:07 36.9 Below low normal 40. 0-48.4 (%) Final MCV 05/10/2024 14:42:07 101.7 82.0-99.5 (fL) Final MCH 05/10/2024 14:42:07 34.2 27.0-34.0 (pg) Final MCHC 05/10/2024 14:42:07 33.6 32.0-36.0 (g/dL) Final RDW 05/10/2024 14:42:07 13.8 11.5-15.5 (%) Final Platelets 05/10/2024 14:42:07 168 140-400 (K /uL) Final MPV 05/10/2024 14:42:07 10.8 6.6-11.1 ( fL) Final Performing Location LABORATORY [place] [address]
--- OUTSIDE RECORDS SUMMARY | 2024-05-17 04:48 | External Medical Summary ---
Author Name Unknown Address Unknown Organization K01:[facility] - [address] [place] [address] Laboratory Report Ordering Provider Test Date Status JACKIE DIAZ 05/10/2024 14:42:07 Final Observation Date Value Abnormality Reference (Units ) Status PSA 05/10/2024 14:42:07 0.06 <4.10 (ng/ mL) Final Performing Location [facility] - [address] [place] [address]
--- OUTSIDE RECORDS SUMMARY | 2024-05-17 04:48 | External Medical Summary ---
Author Name Unknown Address Unknown Organization K01:[facility]ATORY [facility] [place] [address] [place] [address] Laboratory Report Ordering Provider Test Date Status BRIAPALACIOS 05/10/2024 14:42:07 Final Observation Date Value Abnormality Reference (Units ) Status Reagin Ab [Presence] in Serum by RPR 05/10/2024 14:42:07 Reactive Abnormal Nonreactive Final RPR 05/10/2024 14:42:07 1:1 (Titer) Final Test results reported to [facility]. Performing Location LABORATORY [facility] [place] - [address] [place] [address]
--- OUTSIDE RECORDS SUMMARY | 2024-05-17 04:48 | External Medical Summary ---
Author Name Unknown Address Unknown Organization K09:[facility] [address] [place] [address] Laboratory Report Ordering Provider Test Date Status CHARLOTTE WHITT 05/10/2024 14:42:07 Final Observation Date Value Abnormality Reference (Units ) Status SYNC LEUKOCYTES IN BLOOD BY AUTOMATED COUNT 05/10/2024 14:42:07 11.48 Above high normal 4.00-10.80 (K/uL) Final Segs 05/10/2024 14:42:07 69.4 40.0-75.0 (%) Final Lymphs % 05/10/2024 14:42:07 20.0 18.0-42.0 (%) Final Monos 05/10/2024 14:42:07 7.0 1.0-11.0 (%) Final Eosinophils 05/10/2024 14:42:07 3.1 0.0-6.0 (%) Final Basos 05/10/2024 14:42:07 0.5 0.0-2.0 (%) Final Absolute Segs 05/10/2024 14:42:07 7.96 Above high normal 1.80-7.70 (K/uL) Final Lymphs, absolute 05/10/2024 14:42:07 2.30 1.00-4.80 (K/ul) Final Monos, Abs 05/10/2024 14:42:07 0.80 0.00-1.10 (K/uL) Final Eos, Abs 05/10/2024 14:42:07 0.36 0.00-0.70 (K/uL) Final Basos, Abs 05/10/2024 14:42:07 0.06 0.00-0.20 (K/uL) Final Performing Location [facility] [address] [place] [address]
--- OUTSIDE RECORDS SUMMARY | 2024-05-17 04:48 | External Medical Summary ---
Author Name Unknown Address Unknown Organization : Laboratory Report Ordering Provider Test Date Status PHILIP FRASER 05/10/2024 14:42:07 Final Observation Date Value Abnormality Reference (Units ) Status METHYLMALONIC ACID 05/10/2024 14:42:07 194 6 9-390 (nmol/L) Final Serum methylmalonic acid (MM A) levels are used to
diagnose and monitor several rare inborn errors of
metabolism, including methylmalonic aciduria. The
enzymatic conversion of MMA to succinic acid requires
vitamin B12 (adenosyl-cobalamin) as a cofactor. Serum
MMA levels are also used for assessing functional
vitamin B12 deficiency. Vitamin B12 is essential for
neurodevelopment, particularly early in
. Undiagnosed maternal vitamin B12 deficiency
may be associated with adverse / outcomes,
such as neural tube defects and intrauterine growth
restriction.
[facility] utilized Multi-Modal Decomposition
(MMD) analysis to establish first and second trimester-
specific MMA reference intervals in , as given
below:
MMA, First trimester (<13 wks gestation): 58-167 nmol/L
MMA, Second trimester (13-23 wks gestation):
63-241 nmol/L
This test was developed and its analytical performance
characteristics have been determined by [facility]. It has not been cleared or approved by the
FDA. This assay has been validated pursuant to the CLIA
regulations and is used for clinical purposes.

Test Performed at:
[facility]
[address] [facility]
[place] [address]
Eliceo Mckenzie M.D., Ph.D.,Director of Laboratories Performing Location
--- OUTSIDE RECORDS SUMMARY | 2024-05-17 04:48 | External Medical Summary ---
Author Name Unknown Address Unknown Organization K01:[facility] [place] [address] [place] [address] Laboratory Report Ordering Provider Test Date Status CHARLOTTE WHITT 05/10/2024 14:42:07 Final Observation Date Value Abnormality Reference (Units ) Status Vitamin B12 05/10/2024 14:42:07 1673 Above high normal 232-1245 (pg/mL) Final Performing Location [facility] - [address] [place] [address]
--- OUTSIDE RECORDS SUMMARY | 2024-05-17 04:48 | External Medical Summary ---
Author Name Unknown Address Unknown Organization K01:LABORATORY [address] [facility] [address] Laboratory Report Ordering Provider Test Date Status PHILIP FRASER 05/10/2024 14:42:07 Final Observation Date Value Abnormality Reference (Units ) Status Nuclear IgG Ab [Ratio] in Serum by Immunoassay 05/10/2024 14:42:07 Negative Negative Final DNA double strand Ab [Presence] in Serum 05/10/2024 14:42:07 Negative Negative Final DOUBLE STRANDED DNA VALUE - [facility] 05/10/2024 14:42:07 2.6 <20 (IU/mL) Final Extractable nuclear Ab [Presence] in Serum 05/10/2024 14:42:07 Negative Negative Final Nuclear IgG Ab [Ratio] in Serum by Immunoassay 05/10/2024 14:42:07 0.5 <0.7 (Ratio) Final Screening is based on detect ion of the following antibodies: dsDNA, U1-CLINICAL TRIAL SPECIALIST (RNP70, A, C), SS-A/Ro, SS-B / La, Kathi-1, Scl-70, Centromere B proteins and Sm proteins. In conjunction with clinical findings, this can aid in the diagnosis of systemic lupus erythematosous (SLE), mixed connective tissue disease (MCTD), Sjogren's syndrome, scleroderma and polymyositis/dermatomyositis.
However, a negative result does not rule out systemic rheumatic or other autoimmune disease. If clinically suspected, further evaluation and testing may be necessary. Please consult with Rheumatology Department.
Methodology: Fluorescent Enzyme Immunoassay. Performing Location LABORATORY [address] [facility] [address]
--- OUTSIDE RECORDS SUMMARY | 2024-05-17 04:48 | External Medical Summary ---
Author Name Unknown Address Unknown Organization K01:LABORATORY [facility] [place] - [facility] [place] [address] Laboratory Report Ordering Provider Test Date Status CHINOДМИТРИЙCHARLOTTE 05/10/2024 14:42:07 Final Observation Date Value Abnormality Reference (Units ) Status Retic, % (auto) 05/10/2024 14:42:07 2.65 Above high normal 0.80-1.90 (%) Final Reticulocytes, Absolute 05/10/2024 14:42:07 98.3 31.3-100.1 (K/uL) Final Reticulocyte fraction, immature 05/10/2024 14:42:07 12.0 2.5-20.6 (%) Final Reticulocyte HGB 05/10/2024 14:42:07 37.3 29.7-37.4 (pg) Final Performing Location LABORATORY [facility] [place] - [address] [place] [address]
--- OUTSIDE RECORDS SUMMARY | 2024-05-17 04:48 | External Medical Summary ---
Author Name Unknown Address Unknown Organization K01:[facility] [place] [address] [place] [address] Laboratory Report Ordering Provider Test Date Status CHARLOTTE WHITT 05/10/2024 14:42:07 Final Observation Date Value Abnormality Reference (Units ) Status Iron 05/10/2024 14:42:07 133 45-176 (ug/dL) Final Iron-binding capacity 05/10/2024 14:42:07 169 Below low normal 250-425 (ug/dL) Final Transferrin Sat % 05/10/2024 14:42:07 79 Above high normal 15-55 (%) Final Performing Location [facility] [place] [address] [place] [address]
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
--- OUTSIDE RECORDS SUMMARY | 2024-05-17 04:48 | External Medical Summary ---
Author Name Unknown Address Unknown Organization K01:[facility] [place] [address] [place] [address] Laboratory Report Ordering Provider Test Date Status PHILIP FRASER 05/10/2024 14:42:07 Final Observation Date Value Abnormality Reference (Units) Status PARAPROTEIN NORMAL/ABNORMAL 05/10/2024 14:42:07 Normal Normal Final Immunofixation for Serum or Plasma 05/10/2024 14:42:07 No monoclonal gammopathy detected. Final Performing Location [facility] [place] [address] [place] [address]
--- OUTSIDE RECORDS SUMMARY | 2024-05-17 04:48 | External Medical Summary | Summary of Care ---
Author Name Unknown Organization [facility] Address [address] [place] [address] Phone [phone] Care Team Providers Care Internal Medicine Hospitalist Name Role Phone Deb Camara MD Primary Care Provider [phone] Reason for Visit * Reason Comments Outpatient Testing Encounter Details Date Type Department Care Team (Late st Contact Info) Description 05/10/2024 2:40 PM EST Laboratory Laboratory [facility] [address] [place] [address] [facility] [address] [place] [address] Prostate cancer (HCC); Anemia, unspecified type; Orthostatic hypotension; Autonomic neuropathy; Idiopathic neuropathy Allergies Active Allergy Reactions Criticality Noted Date [...] mRNA, LNP-s, No Pre serve, 2-Dose Series ([employer] Inspiring solutions to transform cities) 02/02/2021,06/14/2020,05/24/2020 COVID-19, LNP-s, No Preserve , Ellis-sucrose, [...] Center [facility] [address] [place] [place] [address] Jackson Munoz MD [address] [place] [address] 05/28/2024 11:40 AM EST Office Visit Nephrology, [facility] 200 [facility] [place] [address] Kerri Garcia MD 200 [facility] [place] [address] 06/28/2024 1:00 PM EDT Office Visit Neurology [facility] [place] 200 [facility] [place] [address] Meme Perez MD 200 [facility] [place] [address] 07/03/2024 2:40 PM EDT Office Visit [facility] [address] [place] [phone] Jerzy Glez MD 226 [place] [address] 07/31/2024 11:40 AM EDT Office Visit Nephrology, [facility] 200 [facility] [place], [place] [address] GarciaKerri choi MD 200 [facility] [place] [address] 08/21/2024 11:00 AM EDT Office Visit Cardiology, [facility] [address] [facility] [place] [address] Sandra Laura CRNP [address] [facility] [place] [address] 10/02/2024 10:40 AM EDT Office Visit [facility] 226 [place] [phone] Deb Camara MD 226 [facility] [place] [phone] 11/12/2024 11:20 AM EDT Office Visit Hepatology, [facility] [address] [place] [address] Kaity Comer DO [address] [place] [address] Pending Results Name Type Priority Associated Diagnoses Date /Time PSA Lab Routine Prostate cancer (HCC) 05/10/2024 2:42 PM EST CBC WITH WBC DIFFERENTIAL AND ANEMIA REFLEX WORKUP Lab Routine Anemia, unspecified type 05/10/2024 2:42 PM EST SERUM IMMUNOFIXATION Lab Routine Orthostatic hypotension Autonomic neuropathy Idiopathic neuropathy 05/10/2024 2:42 PM EST ANEMIA REFLEX CHEMISTRY HOLD Lab Routine Anemia, unspecified type 05/10/2024 2:42 PM EST RETICULOCYTE PANEL Lab Routine Anemia, unspecified type 05/10/2024 2:42 PM EST Scheduled Procedures Name Priority Associated [...] Additional history exists CKD PHOS USE SMARTSET 55829 04/19/202503/29, 10/07/2022, 08/17/2021, Additional history exists CKD HGB USE SMARTSET 00003 05/10/202505/10, 04/24/2024, 02/10/2024, Additional history exists DTap/Tdap [...] this encounter Medical Devices Implanted Type Area Gas Worker Device Identifier Shelf Expiration Date Model / Serial / Lot Lens 19.0 Cz70bd - [id number] - [id number] Implanted:Qty: 1 on 08/09/2016 by Madi Frederick MD at OR [facility] Right: Eye KIMMIE : SURGICAL 2018 [id number] 0 / [id number] / Hemostatic Clip Res 235cm - [id number] Implanted:Qty: 1 on 05/09/[address] MD at ENDOSCOPY [facility] N/A: Stomach [employer] [facility] : ENDOSCOPY 11/15/2025 [id number] / / documented as of this encounter Procedures Procedure Name Priority Date/Time Associated Diagnosis Comments ANEMIA CBC Routine 05/10/2024 2:42 PM EST Anemia, unspecified type DIFFERENTIAL, AUTOMATED Routine 05/10/2024 2:42 PM EST Anemia, unspecified type documented in this encounter Results * (ABNORMAL) DIFFERENTIAL, AUTOMATED (05/10/2024 2:42 PM EST) WBC 11.48(H) 4.00 - 10.80 K/uL 05/10/2024 3:02 PM EST [facility] Neutrophils % 69.4 40.0 - 75.0 % 05/10/2024 3:02 PM EST [facility] Lymphocytes % 20.0 18.0 - 42.0 % 05/10/2024 3:02 PM EST [facility] Monocytes % 7.0 1.0 - 11.0 % 05/10/2024 3:02 PM EST [facility] Eosinophils % 3.1 0.0 - 6.0 % 05/10/2024 3:02 PM EST [facility] Basophils % 0.5 0.0 - 2.0 % 05/10/2024 3:02 PM EST [facility] Absolute Neutrophils 7.96(H) 1.80 - 7.70 K/uL 05/10/2024 3:02 PM EST [facility] Absolute Lymphocytes 2.30 1.00 - 4.80 K/ul 05/10/2024 3:02 PM EST [facility] Absolute Monocytes 0.80 0.00 - 1.10 K/uL 05/10/2024 3:02 PM EST [facility] Absolute Eosinophils 0.36 0.00 - 0.70 K/uL 05/10/2024 3:02 PM EST [facility] Absolute Basophils 0.06 0.00 - 0.20 K/uL 05/10/2024 3:02 PM EST [facility] Blood Venous blood specimen / Unknown Venipuncture / Unknown 05/10/2024 2:42 PM EST 05/10/2024 2:42 PM EST us Deb Camara MD LAB BLOOD ORDERABLES Final Resul t [facility] [address] [place] [address] * (ABNORMAL) ANEMIA CBC (05/10/2024 2:42 PM EST) WBC 11.48(H) 4.00 - 10.80 K/uL 05/10/2024 3:02 PM EST [facility] RBC 3.63 4.50 - 5.25 M/uL 05/10/2024 3:02 PM [facility] HGB 12.4(L) 14.0 - 16.8 g/dL 05/10/2024 3:02 PM [facility] Comment: Anemia reflex testing triggers on a HGB < 12.0 for Females and HGB < 13.0 for Males in accordance with the WHO Anemia Guidelines Anemia reflex testing triggers on a HGB < 12.0 for Females and HGB < 13.0 for Males in accordance with the WHO Anemia Guidelines HCT 36.9(L) 40.0 - 48.4 % 05/10/2024 3:02 PM [facility] MCV 101.7 82.0 - 99.5 fL 05/10/2024 3:02 PM [facility] 56 MCH 34.2 27.0 - 34.0 pg 05/10/2024 3:02 PM [facility] 56 MCHC 33.6 32.0 - 36.0 g/dL 05/10/2024 3:02 PM [facility] 56 RDW 13.8 11.5 - 15.5 % 05/10/2024 3:02 PM [facility] 56 PLT 168 140 - 400 K/uL 05/10/2024 3:02 PM [facility] 56 MPV 10.8 6.6 - 11.1 fL 05/10/2024 3:02 PM [facility] 56 Blood Venous blood specimen / Unknown Venipuncture / Unknown 05/10/2024 2:42 PM EST 05/10/2024 2:42 PM EST us Deb Camara MD LAB BLOOD ORDERABLES Final Resul t [facility] [place] [address] documented in this encounter Visit Diagnoses Diagnosis Prostate cancer (HCC) Malignant neoplasm of prostate Anemia, unspecified type Orthostatic hypotension Autonomic neuropathy Unspecified disorder of autonomic nervous system Idiopathic neuropathy Mononeuritis of unspecified site documented in this encounter Advance Directives * Full Code (Latest Code Status on File) Date Activated Date Inactivated Comments 08/09/2016 2:37 PM 08/09/2016 7:17 PM This order r eflects the patients wishes and were consensually agreed upon. Care Teams Internal Medicine Hospitalist Relationship Specialty Start Date End Date Deb Camara MD [address] [place] [address] [place] [address] PCP - General Internal Medicine 05/09/24 documented as of this encounter
--- OUTSIDE RECORDS SUMMARY | 2024-05-17 04:48 | External Medical Summary | Summary of Care ---
Author Name Unknown Organization [facility] Address [address] [place] [facility] [place] [address] Phone [phone] Care Team Providers Care Monologist Name Role Phone Deb Camara MD Primary Care Provider [phone] Encounter Details Date Type Department Care Team (Late st Contact Info) Description 02/08/2024 Telephone Nephrology, [facility] [place] 200 [facility] [place] [address] Kerri Garcia MD 200 [facility] [place] [address] Allergies Active Allergy Reactions Criticality Noted Date Comments Lisinopril 12/05/2023 dizziness Losartan 05/24/2023 Dizziness documented as of this encounter (statuses as of 05/10/2024) Medications No known medicationsdocumented as of this encounter (statuses as of [...] 05/10/2024 1:40 PM EST Office Visit Neurology [facility] [place] [address] [place] [address] Meme Perez MD [address] [place] [address] 05/25/2024 1:00 PM EST Telemedicine [facility] [place] [address] [facility] [place] [address] Jackson Munoz MD [address] [facility] [place] [address] 05/28/2024 11:40 AM EST Office Visit Nephrology, [facility] [address] [place] [address] Kerri Garcia MD [address] [place] [address] 07/03/2024 2:40 PM EDT [facility] [address] [place] [phone] Jerzy Glez MD [address] [place] [address] 07/31/2024 11:40 AM EDT Office Visit Nephrology, [place] [place] [address] [place] [address] Kerri Garcia MD [address] [place] [address] 08/21/2024 11:00 AM EDT Office Visit Cardiology, [facility] [address] [facility] [address] Sandra Laura CRNP [address] [place] [address] 10/02/2024 10:40 AM EDT Office Visit [facility] [address] [place] [phone] Deb Camara MD 226 [place] [address] 11/12/2024 11:20 AM EDT Office Visit Hepatology, [facility] [place] [address] Kaity Comer DO [address] [place] [address] Scheduled Procedures Name Priority Associated Diagnoses Date/Ti [...] Additional history exists CKD PHOS USE SMARTSET 63609 04/19/202503/29, 10/07/2022, 08/17/2021, Additional history exists CKD HGB USE SMARTSET 96405 04/24/202504/24, 02/10/2024, 10/25/2023, Additional history exists DTap/Tdap [...] this encounter Medical Devices Implanted Type Area Clay Dry Press Operator Device Identifier Shelf Expiration Date Model / Serial / Lot Lens 19.0 Cz70bd - [id number] - [id number] Implanted:Qty: 1 on 08/09/2016 by Madi Frederick MD at OR [facility] Right: Eye KIMMIE : SURGICAL 2018 [id number] 0 / [id number] / Hemostatic Clip Res 235cm - [id number] Implanted:Qty: 1 on 05/09/[address] MD at ENDOSCOPY [facility] N/A: Stomach [employer] : ENDOSCOPY 11/15/2025 [id number] / / documented as of this encounter Advance Directives * Full Code (Latest Code Status on File) Date Activated Date Inactivated Comments 08/09/2016 2:37 PM 08/09/2016 7:17 PM This order r eflects the patients wishes and were consensually agreed upon. Care Teams Monologist Relationship Specialty Start Date End Date Deb Camara MD [address] [place] [address] PCP - General Internal Medicine 05/09/24 documented as of this encounter
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
--- OUTSIDE RECORDS SUMMARY | 2024-05-17 04:49 | External Medical Summary ---
Author Name Unknown Address Unknown Organization K01:[facility] - [address] [place] [address] Laboratory Report Ordering Provider Test Date Status MARIA INES MICHAELS 04/19/2024 14:52:29 Final Observation Date Value Abnormality Reference (Units ) Status Phosphate 04/19/2024 14:52:29 2.4 Below low normal 2.5 -4.8 (mg/dL) Final Performing Location [facility] - [address] [place] [address]
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
--- OUTSIDE RECORDS SUMMARY | 2024-05-17 04:49 | External Medical Summary ---
Author Name Unknown Address Unknown Organization [id number] [address] [place] [id number] Laboratory Report Ordering Provider Test Date Status ERIN CALDERON 04/24/2024 09:40:10 Final Observation Date Value Abnormality Reference (Units ) Status WBC, Total 04/24/2024 09:40:10 7.83 4.00-10.8 0 (K/uL) Final RBC 04/24/2024 09:40:10 3.43 4.50-5.25 (M/uL) Final Hemoglobin 04/24/2024 09:40:10 11.6 Below low normal 14 .0-16.8 (g/dL) Final HCT 04/24/2024 09:40:10 34.7 Below low normal 40. 0-48.4 (%) Final MCV 04/24/2024 09:40:10 101.2 82.0-99.5 (fL) Final MCH 04/24/2024 09:40:10 33.8 27.0-34.0 (pg) Final MCHC 04/24/2024 09:40:10 33.4 32.0-36.0 (g/dL) Final RDW 04/24/2024 09:40:10 14.1 11.5-15.5 (%) Final Platelets 04/24/2024 09:40:10 188 140-400 (K /uL) Final MPV 04/24/2024 09:40:10 10.7 6.6-11.1 ( fL) Final Performing Location [facility] [address] [place] [id number]
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
--- OUTSIDE RECORDS SUMMARY | 2024-05-17 04:49 | External Medical Summary | Summary of Care ---
Author Name Unknown Organization [facility] Address [address] [facility] [place] [address] Phone [phone] Care Team Providers Care Spot Welder Name Role Phone Deb Camara MD Primary Care Provider [phone] Reason for Visit * Reason Comments Outpatient Testing Encounter Details Date Type Department Care Team (Late st Contact Info) Description 04/19/2024 2:50 PM EST Laboratory Laboratory, [facility] [address] [facility] [place] [facility] [place] [phone] [place], Laboratory [address] [facility] [place] [address] Stage 3b chronic kidney disease (HCC); Chronic heart failure with preserved ejection fraction (HCC) Allergies Active Allergy Reactions Criticality Noted Date Comments Lisinopril 12/05/2023 dizziness Losartan 05/24/2023 Dizziness documented as of this encounter (statuses as of 04/19/2024) Medications Blood Glucose Monitoring Suppl (ONETOUCH VERIO) w/Device KITIndications:D M type 2, not at goal ([facility]),Type 2 diabetes mellitus with hemoglobin A1c goal of less than 8.0% ([facility]) Use to check sugar daily E11.9 1 Kit 01/31/2019 Active ONETOUCH ELIZABETH LANCETS FINE MISCIndications: DM [...] Blood)Indication s:DM type 2, not at goal ([facility]),Type 2 diabetes mellitus with hemoglobin A1c goal of less than 8.0% ([facility]) Use up check sugar daily E11.9 100 [...] 0.5 Tablets in the evening. 30 Tablet 04/19/2024 Active documented as of this encounter (statuses [...] Team (Late st Contact Info) Description 04/26/2024 2:00 PM EST Office Visit Nephrology, [place] Cervantes [address] [place] [address] Kerri Garcia MD 200 [facility] [place] [address] 05/25/2024 1:00 PM EST [facility] [address] [facility] [place] [address] Jackson Munoz MD [address] [facility] [place] [address] 07/03/2024 2:40 PM EDT Office Visit [facility] [address] [place] [phone] Jerzy Glez MD 226 [place] [address] 07/31/2024 11:40 AM EDT Office Visit Nephrology, Bari Harpster [address] [place] [address] Kerri Garcia MD 200 [facility] [place] [address] 08/13/2024 9:30 AM EDT Cardiac Studies Cardiac Studies, [facility] [address] [facility] [place] [address] 08/21/2024 11:00 AM EDT Office Visit Cardiology, [facility] [address] [facility] [place] [address] Sandra Laura CRNP 132 [facility] [place] [address] 10/02/2024 10:40 AM EDT Office Visit [facility] [place] [address] [place] [phone] Deb Camara MD [address] [place] [address] Pending Results Name Type Priority Associated Diagnoses Date /Time PHOSPHORUS Lab Routine Stage 3b chronic kidney disease (HCC) 04/19/2024 2:52 PM EST COMPREHENSIVE METABOLIC PANEL Lab Routine Chronic heart failure with preserved ejection fraction (HCC) Stage 3b chronic kidney disease (HCC) 04/19/2024 2:52 PM EST Scheduled Procedures Name Priority Associated [...] Additional history exists CKD PHOS USE SMARTSET 01213 10/08/202309/25, 08/17/2021, 03/06/2020, Additional history exists COVID-19 [...] Additional history exists CKD HGB USE SMARTSET 27243 02/09/202502/09, 10/25/2023, 10/25/2023, Additional history exists DTap/Tdap [...] this encounter Medical Devices Implanted Type Area Certified Executive Chef Device Identifier Shelf Expiration Date Model / Serial / Lot Lens 19.0 [id number] - [id number] - [id number] Implanted:Qty: 1 on 08/09/2016 by Madi Frederick MD at OR [facility] Right: Eye KIMMIE : SURGICAL 2018 [id number] / [id number] / Hemostatic Clip Res 235cm - [id number] Implanted:Qty: 1 on 05/09/[address] MD at ENDOSCOPY [facility] N/A: Stomach [employer] : ENDOSCOPY 11/15/2025 [id number] / / documented as of this encounter Visit Diagnoses Diagnosis Stage 3b chronic kidney disease (HCC) Chronic heart failure with preserved ejection fraction (HCC) documented in this encounter Advance Directives * Full Code (Latest Code Status on File) Date Activated Date Inactivated Comments 08/09/2016 2:37 PM 08/09/2016 7:17 PM This order r eflects the patients wishes and were consensually agreed upon. Care Teams Spot Welder Relationship Specialty Start Date End Date Deb Camara MD PCP - General Internal Medicine 10/07/23 documented as of this encounter
--- OUTSIDE RECORDS SUMMARY | 2024-05-17 04:49 | External Medical Summary ---
Author Name Unknown Address Unknown Organization K0[facility] [place] [address] [place] [address] Laboratory Report Ordering Provider Test Date Status ERIN CALDERON 04/24/2024 09:40:10 Final Observation Date Value Abnormality Reference (Units ) Status BUN 04/24/2024 09:40:10 18 6-20 (mg/dL) Final Creatinine 04/24/2024 09:40:10 1.2 0.6-1.2 (mg/dL) Final Glomerular filtration rate/1.73 sq M.predicted [Volume Rate/Area] in Serum, Plasma or Blood by Creatinine-based formula (CKD-EPI) 04/24/2024 09:40:10 61 >=60 (mL/min) Final eGFR is calculated based on the CKD-EPI 2020 equation. Sodium 04/24/2024 09:40:10 138 135-146 (m mol/L) Final Potassium 04/24/2024 09:40:10 4.7 3.5-5.1 (m mol/L) Final Cl 04/24/2024 09:40:10 106 98-107 (mm ol/L) Final CO2 04/24/2024 09:40:10 26 22-32 (mmo l/L) Final Anion gap 04/24/2024 09:40:10 6 Below low normal 7-1 5 (mmol/L) Final Glucose 04/24/2024 09:40:10 141 Above high normal 70 -120 (mg/dL) Final Albumin 04/24/2024 09:40:10 2.8 Below low normal 3.8 -5.0 (g/dL) Final AST (Aspartate aminotransferase) 04/24/2024 09:40:10 92 Above high normal 10-50 (U/L) Final Alk Phos 04/24/2024 09:40:10 376 Above high normal 35 -130 (U/L) Final Bilirubin, Total 04/24/2024 09:40:10 1.0 <=1 .2 (mg/dL) Final Calcium 04/24/2024 09:40:10 8.3 Below low normal 8.4 -10.2 (mg/dL) Final Protein 04/24/2024 09:40:10 6.4 6.0-8.3 (g /dL) Final ALT (Alanine aminotransferase) 04/24/2024 09:40:10 80 Above high normal 10-50 (U/L) Final Performing Location [facility] [place] [address] [facility] [address]
--- OUTSIDE RECORDS SUMMARY | 2024-05-17 04:49 | External Medical Summary | Summary of Care ---
Author Name Unknown Organization [facility] Address [address] [facility] [address] Phone [phone] Care Team Providers Care Boil[employer] Name Role Phone Deb Camara MD Primary Care Provider Reason for Visit * Reason Onset Date Comments Advice 04/18/2024 Encounter Details Date Type Department Care Team (Late st Contact Info) Description 04/18/2024 Telephone [facility] [place] [address] [place] [phone] Deb Camara MD [address] [place] [phone] Advice Allergies Active Allergy Reactions Criticality Noted Date Comments Lisinopril 12/05/2023 dizziness Losartan 05/24/2023 Dizziness documented as of this encounter (statuses as of 04/19/2024) Medications Blood Glucose Monitoring Suppl (ONETOUCH VERIO) w/Device KITIndications:DM type 2, not at goal ([facility]),Type 2 diabetes mellitus with hemoglobin A1c goal of less than 8.0% ([facility]) Use to check sugar daily E11.9 1 Kit 9 Active ONETOUCH DELICA LANCETS FINE MISCIndications:D M type 2, not at goal ([facility]),Type 2 diabetes mellitus with hemoglobin A1c goal of less than 8.0% ([facility]) Use to test blood sugar once daily- dx E11.9 1 Each 5 9 Active traZODone HCl 100 MG Oral Tablet (Desyrel)Indicati ons:Persistent insomnia Take 1 Tablet by mouth at bedtime. 90 Tablet 1 4 Active OneTouch Verio In Vitro Strip (Glucose Blood)Indications :DM type 2, not at goal ([facility]),Type 2 diabetes mellitus with hemoglobin A1c goal of less than 8.0% ([facility]) Use up check sugar daily E11.9 100 Strip 3 4 Active oxyCODONE HCl 10 MG [...] morning and 1 Tablet before bedtime. Active Citalopram Hydrobromide 20 MG Oral Tablet (CeleXA) Take 1 Tablet by mouth in the morning. 30 Tablet 11 4 04/18/19 25 Discontinu ed(Medicat ion List Clean Up) Metoprolol Succinate ER 25 MG Oral Tablet Extended Release 24 Hour (toPROL XL)Indications:HT N, goal below 130/80,Chronic right-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),Chronic heart failure with preserved ejection fraction (HCC) Take 0.5 Tablets by mouth in the morning. Dose decrease. 45 Tablet 2 4 04/18/19 25 Discontinu ed(Medicat ion List Clean Up) Spironolactone 25 MG Oral Tablet (Aldactone)Indica tions:HTN, goal below 130/80,Chronic right-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),Chronic heart failure with preserved ejection fraction (HCC) Take 0.5 Tablets by mouth in the morning. 45 Tablet 1 4 04/18/19 25 Discontinu ed(Medicat ion List Clean Up) Furosemide 40 MG Oral Tablet (Lasix)Indication s:HTN, goal below 130/80,Chronic heart failure with preserved ejection fraction (HCC) TAKE 1 tablet daily 30 Tablet 11 4 04/18/19 25 Discontinu ed(Medicat ion List Clean Up) Dapagliflozin Propanediol 10 MG Oral Tablet (Farxiga) Take 1 Tablet by mouth in the morning. 04/18/19 25 Discontinu ed(Medicat ion List Clean Up) documented as of this [...] encounter Miscellaneous Notes * Telephone Encounter - Kat Bell RN - 04/19/2024 8:14 AM EST Discuss CM referral if needed at appointment. * Telephone Encounter - Tatiana Stiles LPN - 04/18/2024 2:46 PM EST Spoke with pt's . Pt was sleeping. She will use a wheelchair for pt tomorrow for the visit. * Telephone Encounter - Kat Bell RN - 04/18/2024 1:34 PM EST I spoke to patient , Sinai, patient is resting well right now. She states patient stood up and got lightheaded and dizzy and took his blood pressure it was 81/? Patient then sat down and repeated BP and it was 171/?, diastolic numbers are unknown she tried to recall them on his BP cuff and didn't know how. She states they used to have a cuff that sent the reading directly to his chart, femi got frustrated because nothing was being done with them, so they stopped that service. She states patient has been having issues with his BP since before covid and before his hospitalization 03/26/24-03/29/24 Patient was recently hospitalized on 04/09/24 and discharge 04/16/24 again for Postural hypotension Autonomic dysfunction Cirrhosis CKD stage III DMII Chronic diastolic CHF HTN Pneumonia Patient said he does have a HD appointment with Dr. Camara tomorrow, she also thought patient wasto go home on oral antibiotics but they never got that prescription either. Per HD shauna patient was treated with antibiotics for presumed pneumonia and completed a full course. Med list updated on phone: Current Outpatient Medications Medication Sig Dispense Refill ONETOUCH DELICA LANCETS [facility] Use to test blood sugar once daily- dx E11.9 1 Each 5 traZODone HCl 100 MG Oral Tablet (Desyrel) Take 1 Tablet by mouth at bedtime. 90 Tablet 1 oxyCODONE HCl 10 MG Oral Tablet (Roxicodone) Take 1 Tablet by mouth in the morning and 1 Tablet at noon and 1 Tablet in the evening and 1 Tablet before bedtime. 120 Tablet 0 Sodium Chloride 1 GM Oral Tablet Take 1 Tablet by mouth in the morning and 1 Tablet before bedtime. guaiFENesin ER 600 MG Oral Tablet Extended Release 12 Hour (Mucinex) Take 1 Tablet by mouth in the morning and 1 Tablet before bedtime. Blood Glucose Monitoring Suppl (ONETOUCH VERIO) w/Device KIT Use to check sugar daily E11.9 1 Kit 0 OneTouch Verio In Vitro Strip (Glucose Blood) Use up check sugar daily E11.9 100 Strip 3 No current facility-administered medications for this visit. Message sent to provider and nurses for advice, I counseled to make sure he changes positions slowly to prevent any falls, follow fluid restrictions per nephrology. He does follow up with Dr. Garcia on 04/26/24 and hospital discharge tomorrow. If any sooner advice please call patient and . She will take his BP and document both numbers to bring to appointment tomorrow. She states they do not have a CM, which I would recommend. Reason for Call: Advice Contact: Telephone Call Contact Type: Advice Provider In-Basket: Yes Outcome: see note Face to face time spent with Patient (minutes): 0 Total Time including non face to face (minutes): 30 * Telephone Encounter - Ivette Ramires LPN - 04/18/2024 12:49 PM EST Patient was just discharged from the hospital two days ago. He has an appointment with Dr. Camara tomorrow for a d/c follow. He doesn't see Dr. Garcia Nephrology for a month. He is having issues with orthostatic hypotension. was worried because BP was 171 systolic while sitting and when he stood up it went to 51. They did not write down the diastolic. sinai is unsure what to do. Pleaseadvise if ok to wait until tomorrow for the appointment. [phone] Thank you, Ivette Ramires LPN Care Gaps Department documented in this encounter Plan of Treatment Upcoming Encounters Date Type Department Care Team (Late st Contact Info) Description 04/19/2024 2:00 PM EST [facility] [place] [place] [address] [place] [phone] Deb Camara MD [address] [place] [address] 04/26/2024 2:00 PM EST Office Visit [facility] [address] [place] [address] Kerri Garcia MD [address] [place] [address] 05/25/2024 1:00 PM EST [facility] [address] [facility] [place] [address] Jackson Munoz MD [address] [facility] [place] [address] 07/03/2024 2:40 PM EDT [facility] [address] [facility] [place] [phone] Jerzy Glez MD [address] [facility] [place] [address] 07/31/2024 11:40 AM EDT Office Visit [facility], [facility] 200 [facility] [address] Kerri Garcia MD 200 [facility] [address] 08/13/2024 9:30 AM EDT Cardiac Studies Cardiac Studies, [facility] [address] [facility] [place] [address] 08/21/2024 11:00 AM EDT Office Visit Cardiology, [facility] 132 [place] [address] Sandra Laura CRNP 132 [place] [address] 10/02/2024 10:40 AM EDT [facility] [address] [facility] [place] [phone] Deb Camara MD [address] [facility] [place] [id number] Scheduled Procedures Name Priority Associated Diagnoses Date/Ti [...] Additional history exists CKD PHOS USE SMARTSET 25920 10/08/202309/25, 08/17/2021, 03/06/2020, Additional history exists COVID-19 [...] Additional history exists CKD HGB USE SMARTSET 53607 02/09/202502/09, 10/25/2023, 10/25/2023, Additional history exists DTap/Tdap [...] this encounter Medical Devices Implanted Type Area Seed Sales Manager Device Identifier Shelf Expiration Date Model / Serial / Lot Lens 19.0 Cz70bd - [id number] - [id number] Implanted:Qty: 1 on 08/09/2016 by Madi Frederick MD at OR [facility] Right: Eye KIMMIE : SURGICAL 2018 [id number] / [id number] / Hemostatic Clip Res 235cm - [id number] Implanted:Qty: 1 on 05/09/[address] MD at ENDOSCOPY [facility] N/A: Stomach [facility] : ENDOSCOPY 11/15/2025 [id number] / / documented as of this encounter Advance Directives * Full Code (Latest Code Status on File) Date Activated Date Inactivated Comments 08/09/2016 2:37 PM 08/09/2016 7:17 PM This order r eflects the patients wishes and were consensually agreed upon. Care Teams [employer] Relationship Specialty Start Date End Date Deb Camara MD PCP - General Internal Medicine 10/07/23 documented as of this encounter
--- OUTSIDE RECORDS SUMMARY | 2024-05-17 04:49 | External Medical Summary | Summary of Care ---
Author Name Unknown Organization [facility] Address [address] [place] [address] Phone [phone] Care Team Providers Care State Federal Relations Deputy Director Name Role Phone Deb Camara MD Primary Care Provider [phone] Reason for Referral * Evaluate & Treat - Unlimited Visits (Within 10 days (routine)) - Authorized Specialty Diagnoses / Procedures Referred By Swapnil caldwell Referred To Contact Neurology Diagnoses Orthostatic hypotension Kerri Garcia MD [address] [place] [address] Phone: tel: fax: Meme Perez MD [address] [place] [address] Phone: tel: fax: Referral ID Status Reason Start Date Expiration Date Visits Requested Visits Authorized [id number] Authorized Specialty Services Required 05/03/2024 999 999 [...] Encounter Details Date Type Department Care Team ([facility] st Contact Info) Description 04/30/2024 1:40 PM EST Office Visit Nephrology, [place] [address] [facility], [place] [address] Kerri Garcia MD [address] [facility] [place], [place] [address] Orthostatic hypotension*; Proteinuria, unspecified type; Chronic heart failure with preserved ejection fraction (HCC); Stage 3 chronic kidney disease, unspecified whether stage 3a or 3b CKD ([facility]) Allergies Active Allergy Reactions Criticality Noted [...] KITIndications: DM type 2, not at goal ([facility]),Type 2 diabetes mellitus with hemoglobin A1c goal of less than 8.0% ([facility]) Use to check sugar daily E11.9 1 Kit 9 025 Discontinued TTi [employer] ELIZABETH LANCETS FINE MISCIndications :DM type 2, not at goal ([facility]),Type 2 diabetes mellitus with hemoglobin A1c goal of less than 8.0% ([facility]) Use to test blood sugar once daily- dx E11.9 1 Each 5 9 025 Discontinued Tego In Vitro Strip (Glucose Blood)Indicatio ns:DM type [...] mRNA, LNP-s, No Pre serve, 2-Dose Series (Sitemasher) 02/02/2021,06/14/2020,05/24/2020 COVID-19, LNP-s, No Preserve , Ellis-sucrose, [...] No 09/22/2023 Does the household have a [facility] source of income? (Household - for [...] PM EST NEPHROLOGY CLINIC [place] [address] 04/30/2024, 2:05 PM Patient Name: Delvis Munoz BACKGROUND: 73 year old male presents for hospital d/c after [facility] c/s for postural lightheadedness,seen normally in this [...] negative endocarditis 2010 [place] of root canal [facility] hosp. NAFLED c/b ascites, Prolonged fatigue/dyspnea post [...] No Herbals/supplements:Vit b3 , b12 Hospital stays [facility]: 01/15/23 for heart failure- meds changes water pill inc 01/31/23 for bronchitis 04/09-04/16/2024 [facility] for autonomic postural hypotension with autonomic dysfunction Drinks approximately 32 oz of fluid daily and apple cider Snacks throughout the day often does not eat did have 2 oranges prior to visit Denies lower extremity edema Notes SOB with stairs TODAY 12/05/2023: prostate CA > PSA way down; S/p cyber knife tx w/ Dr Munoz in [place] Mar 2023 Had 3-4 mos severe sciatica pain could hardly move and took that long to get in to pain mgt. Acc by his today. No interval hospital stays or ER visits. 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 TODAY 04/30/2024: presenting for hospital d/c appointment after admission [facility] April 09 to for autonomic postural [...] 270 Tablet 3 Blood Glucose Monitoring Suppl (Et3arraf) w/Device KIT Use to check sugar daily [...] To eval for adrenal insufficiency (note that nursing home opiate use can > adrenal insufficiency) > [...] symptomatic postural hypotension. Kerri Garcia MD Nephrology, [address] [address] CC: REF: SELF NO STREET ADDRESS AVAILABLE PCP: DEB CAMARA This chart was completed in part utilizing [employer] Speech Voice Recognition Software. Randomword insertions, pronoun [...] Center [facility] [address] [place] [address] Jackson Munoz MD [address] [place] [address] 07/03/2024 2:40 PM EDT [facility] [address] [place] [phone] Jerzy Glez MD [address] [facility] [place] [address] 07/31/2024 11:40 AM EDT Office Visit Nephrology, [facility] [address] [facility] [place] [address] Kerri Garcia MD [address] [facility] [place] [address] 08/21/2024 11:00 AM EDT Office Visit Cardiology, [facility] [address] [facility] [place] [address] Sandra Laura CRNP [address] [place] [address] 10/02/2024 10:40 AM EDT Office Visit [facility] [address] [facility] [place] [place] [id number] Deb [facility] [address] [facility] [address] 11/12/2024 11:20 AM EDT Office Visit Hepatology, [facility] [address] [place] [address] Kaity Comer DO [address] [facility] [place] [address] Scheduled Procedures Name Priority Associated Diagnoses Date/Ti [...] Additional history exists CKD PHOS USE SMARTSET 38836 04/19/202503/29, 10/07/2022, 08/17/2021, Additional history exists CKD HGB USE SMARTSET 12749 04/24/202504/24, 02/10/2024, 10/25/2023, Additional history exists DTap/Tdap [...] this encounter Medical Devices Implanted Type Area Retail Business Manager Device Identifier Shelf Expiration Date Model / Serial / Lot Lens 19.0 [id number] - [id number] - [id number] Implanted:Qty: 1 on 08/09/2016 by Madi Frederick MD at OR [facility] Right: Eye KIMMIE : SURGICAL 2018 [id number] / [id number] / Hemostatic Clip Res 235cm - [id number] Implanted:Qty: 1 on 05/09/[address] Davis MD at ENDOSCOPY [facility] N/A: Stomach [employer] : ENDOSCOPY 11/15/2025 [id number] / / documented as of this encounter [...] and were consensually agreed upon. Care Teams State Federal Relations Deputy Director Relationship Specialty Start Date End Date Deb Camara MD PCP - General Internal Medicine 10/07/23 documented as of this encounter
--- OUTSIDE RECORDS SUMMARY | 2024-05-17 04:49 | External Medical Summary | Summary of Care ---
Author Name Unknown Organization [facility] Address [address] [place] [address] Phone [phone] Care Team Providers Care Garment Liner Name Role Phone Deb Camara MD Primary Care Provider [phone] Reason for Referral * Evaluate & Treat - Unlimited Visits (Within 10 days (routine)) - Authorized Specialty Diagnoses / Procedures Referred By Contluan t Referred To Contact HOME CARE / Home Care Diagnoses Chronic heart failure with preserved ejection fraction (HCC) Protein-calorie malnutrition, unspecified severity (HCC) Cirrhosis of liver with ascites, unspecified hepatic cirrhosis type (HCC) Orthostatic hypotension Generalized weakness Deb Camara MD [address] [place] [address] Phone: tel: fax: Referral ID Status Reason Start Date Expiration Date Visits Requested Visits Authorized [id number] Authorized Specialty Services Required 04/19/2024 999 [id number] Question Answer Referral Priority Within 10 days (routine) Where should this appointment be scheduled? [facility] Comments Documentation of Ejqy-hi-Nmtc Encounter Addendum Patient Name: Delvis Munoz I certify that this patient is under my care and that I, or a nurse practitioner or physician's conference assistant working with me, had a [id number] encounter that meets the physician [id number] encounter requirements with this patient on: Apr 19 2024 The encounter with the patient was in whole, or in part, for the following medical condition, which is the primary reason for home health care (List medical condition): Gait dysfunction, ADL dysfunction I certify that, based on my findings, the following services are medically necessary home health services: Physical Therapy, occupational therapy To provide the following care/treatments: (All hospitalists not following the patient after discharge should complete this section): PT, OT Primary Care Physician to follow home care plan of care after discharge: Dr Deb Camara PT.OT My clinical findings support the need for the above services because: legs weakness , body weakness Further, I certify that my clinical findings support that this patient is homebound (i.e. Absences from home require considerable and taxing effort and are for medical reasons or jain services or infrequently or of short duration when for other reason) because: Liver cirrhosis, HTN, hypotension Physician Signature: Date of Signature: Physician Printed Name: Deb Camara MD Reason for Visit * Reason Onset Date Comments Hospital Follow-Up Pt here today for hospital discharge follow upBlood pressure listTues at 7:30 pm 166/72Wed at 171/?? (Sitting) 81/?? (Standing) at 10:40 amWed 145/?? (Sitting) 87/55 (standing) at 8 pm after shower BP was 97/51 pulse 107Today at 11:45 am 143/55 sitting 75/48 standing. Hospital Follow-Up 04/19/2024 Encounter Details Date Type Department Care Team (Late st Contact Info) Description 04/19/2024 2:00 PM EST Office Visit [facility] Brian Philippe [address] [place] [phone] Deb Camara MD [address] [place] [address] Orthostatic hypotension*; Risk and functional assessment; Chronic heart failure with preserved ejection fraction (HCC); Type 2 diabetes mellitus with hemoglobin A1c goal of less than 8.0% ([facility]); Stage 3b chronic kidney disease (HCC); Protein-calorie malnutrition, unspecified severity (HCC); HTN, goal below 130/80; Cirrhosis of liver with ascites, unspecified hepatic cirrhosis type (HCC); Generalized weakness; Hospital discharge follow-up; Prostate CA ([facility]) Allergies Active Allergy Reactions Criticality Noted Date Comments Lisinopril 12/05/2023 dizziness Losartan 05/24/2023 Dizziness documented as of this encounter (statuses as of 04/19/2024) Medications Blood Glucose Monitoring Suppl (ONETOUCH VERIO) w/Device KITIndications:D M type 2, not at goal ([facility]),Type 2 diabetes mellitus with hemoglobin A1c goal of less than 8.0% ([facility]) Use to check sugar daily E11.9 1 Kit 01/31/2019 Active ONETOUCH ELIZABETH MONROE MISCIndications: DM type 2, not at goal ([facility] [...] Blood)Indication s:DM type 2, not at goal ([facility] [...] mRNA, LNP-s, No Pre serve, 2-Dose Series (Linguastat) 02/02/2021,06/14/2020,05/24/2020 COVID-19, LNP-s, No Preserve , Ellis-sucrose, [...] Sign Reading Time Taken Comments Blood Pressure 132/62 04/19/2024 1:57 PM EST Pulse 76 04/19/2024 1:57 PM EST Temperature 36.4 C (97.5 F) 04/19/2024 1:57 PM ES T Respiratory Rate 16 04/19/2024 1:57 PM EST Oxygen Saturation 95% 04/19/2024 1:57 PM EST Inhaled Oxygen Concentration - - Weight 88.5 kg (195 lb) 04/19/2024 1:57 PM EST Height - - Body Mass Index 27.98 04/04/2024 11:14 AM EST documented in this encounter Patient Instructions * Patient Instructions* Tatiana Stiles LPN - 04/19/2024 2:04 PM EST Patient Instructions - Fall Prevention (This education is for all patients over 65 regardless of symptoms) Remember to take your current medications as prescribed. In order to prevent falls, you are encouraged to: Exercise Utilize assistive/adaptive devices Avoid multifocal lenses when walking Avoid hazards in home Maintain a regular toileting schedule Any questions please contact our office. Preventing Falls in the Home (This education is for all patients over 65 regardless of symptoms) As you get older, falls are more likely. Thats because your reaction time slows. Your muscles and joints may also get stiffer, making them less flexible. Illness, medications, and vision changes can also affect your balance. A fall could leave you unable to live on your own. To make your home safer, follow these tips: Floors Put nonskid pads under area rugs Remove throw rugs Replace worn floor coverings Tack carpets firmly to each step on carpeted stairs. Put nonskid strips on the edges of uncarpeted stairs Keep floors and stairs free of clutter and cords Arrange furniture so there are clear pathways Clean up any spills right away Bathrooms Install grab bars in the tub or shower Apply nonskid strips or put a nonskid rubber mat in the tub or shower Sit on a bath chair to bathe Use bathmats with nonskid backing Lighting Keep a flashlight in each room Put a nightlight along the pathway between the bedroom and the bathroom Laurie Patient Education Copyright 2008 - 2010 Laurie except where otherwise noted Preventing Falls: Exercises to Improve Balance, Flexibility, Strength, and Staying Power (This education is for all patients over 65 regardless of symptoms) Certain types of exercises may help make you less likely to fall. Try the ones below. Or do other exercises that your healthcare provider suggests. Depending on your health, you may need to start slowly. Dont let that stop you. Even small amounts of exercise can help you. Be sure to talk to yourhealthcare provider before starting any exercise program. Improve Balance Many types of exercise can help improve balance. Bartolome chi and yoga are good examples. Heres another one to try. You can do it anytime and almost anywhere. Stand next to a counter or solid support. Push yourself up onto your tiptoes. Hold for 5 seconds. If you start to lose your balance, hold on to the counter. Rest and repeat 5 times. Work up to holding for 20 to 30 seconds, if you can. Increase Flexibility Being more flexible makes it easier for you to move around safely. Try exercises like the seated hamstring stretch. Sit in a chair and put one foot on a stool. Straighten your leg and reach with both hands down either side of your leg. Reach as far down your leg as you can. Hold for about 20 seconds. Go back to the starting position. Then repeat 5 times. Switch legs. Build Strength Resistance exercises help build strength. You can do them without equipment. Or you can use weights, elastic bands, or special machines. One such exercise is called the biceps curl. You can hold a 1 pound weight or even a can of soup. Do this exercise at least 3 times a week. Strive for everyday. Sit up straight in a chair. Keep your elbow close to your body and your wrist straight. Bend your arm, moving your hand up to your shoulder. Then slowly lower your arm. Repeat 5 times. Switch to the other arm. Build Your Staying Power Aerobic exercises make your heart and lungs stronger so you can keep moving longer. Walking and swimming are two of the best types of exercises you can do. Using a stationary bike is great, too. Find an aerobic exercise that you enjoy. Start slowly and build up. Even 5 minutes is helpful. Aimfor a goal of 30 minutes, at least 3 times a week. You dont have to do 30 minutes in one session. Break it up and walk a little throughout the day. More Helpful Tips Start easy. Slowly work up to doing more. Talk with your healthcare provider about the best exercises for you. Call senior centers or health clubs about exercise programs. If needed, have a family member watch you walk every so often to check your stability. Exercise with a friend. Choose an activity you both enjoy. Try exercises that you can do anytime, anywhere. Here are two examples. Have someone with you when you first try these: Practice walking by placing one foot right in front of the other. Stand up and sit down 10 times. Repeat this throughout the day. Laurie Patient Education Copyright 2008 - 2010 Laurie except where otherwise noted. Preventing Falls: Moving Safely Using a Cane or Walker (This education is for all patients over 65 regardless of symptoms) Keep the cane away from your feet so you dont trip. A walking aid, such as a cane or walker, can help you stay more independent and avoid falls. Remember to keep your walking aid within easy reach when youre in a chair or in bed. And learn how to use it safely so you dont injure yourself. Using a Cane If you have a stronger side, hold the cane on that side. Get your balance. Move the cane and your weaker leg forward. Support your weight on both the cane and your weaker side. Step with your stronger leg. Start again from step 1. If youre using a folding walker, be sure you know how to lock it open. Check that its locked open before each use. Using a Walker Roll the walker (or lift it, if youre using one without wheels) forward about 12 inches. Step forward with your weaker leg first. Use the walker to help keep your balance. Bring your other foot forward to the center of the walker. Start again from step 1. Helpful Tips Check with your healthcare provider about the right walking aid to use. Ask about a walker with a seat attached. Check the tips of your cane or walker to make sure they have nonskid covers. Move slowly from room to room. Dont barroso. Sit down to get dressed. Use a yung pack or backpack to keep your hands free. Get help for jobs that mean climbing, even on a stepstool. Laurie Patient Education Copyright 2009 - 2010 Laurie except where otherwise noted. Treating Urinary Incontinence in Men (This education is for all patients over 65 regardless of symptoms) You can't always control the release of urine. You may leak urine. Or you may not be able to hold your urine until you can get to a bathroom. This is called urinary incontinence. The problem can be managed. Talk to your doctor about your treatment options. Taking Medications Prescription medications may help you. They may: Help the sphincter to work better. (This is the muscle that closes to keep urine from leaking out of the bladder.) Help stop the bladder from nieves too often to push urine out. Help the bladder muscles contract with more force. Help relax the sphincter muscle and allow urine to flow more freely. Making Changes to Your Routine Certain changes in your daily routine may help. These include: Avoiding caffeine and alcohol. Using timed voiding. This is following a schedule for drinking fluids and urinating. Doing Kegel exercises daily. These exercises involve tightening the muscles in your sphincter and around your bladder to help strengthen them. Your doctor can explain how to do them. Using a Catheter A catheter is a narrow tube that is inserted through the urethra into the bladder. It drains urine.A condom catheter covers the penis. It channels urine into a collection bag. It is worn most of thetime. Intermittent catheterization means inserting a catheter to drain the bladder, then removing it. This is done on a regular schedule. Having Surgery If other options don't work, surgery may be recommended. If surgery is an option, your healthcare provider can discuss it with you and explain its risks and benefits. Healing After Prostate Surgery Surgery on the prostate gland can cause incontinence. Most often, the incontinence is only for a short time. It clears up when healing is complete. Very rarely, prostate surgery can result in permanent incontinence. documented in this encounter Progress Notes * Deb Camara MD - 04/19/2024 2:10 PM EST Subjective Delvis Munoz is a 73 year old male. Chief Complaint Patient presents with Hospital Follow-Up Pt here today for hospital discharge follow up Blood pressure list at 7:30 pm 166/72 Wed at 171/?? (Sitting) 81/?? (Standing) at 10:40 am Wed 145/?? (Sitting) 87/55 (standing) at 8 pm after shower BP was 97/51 pulse 107 Today at 11:45 am 143/55 sitting 75/48 standing. Hospital Follow-Up HPI: Here for hospital f/u Admission Apr 09 Discharge apr 16 Text in this note was generated using an Gather documentation service. I discussed the use of a device to record and summarize our discussion today. All persons present during the encounter consented to its use Dx : autonomic dysfunction with hypotension , orthostatic Liver cirrhosis CKD, type 2 DM, chronic CHF, portal HTN, HTN History of Present Illness The patient, with a history of liver cirrhosis, high blood pressure, and diabetes, presents with concerns about fluctuating blood pressure. The patient reports that the blood pressure changes occur with changes in posture. Previously, the patient was on midodrine and a steroid medication, but both were discontinued due to concerns about potential kidney damage and other side effects. The patient denies frequent urination at night and reports no current use of compression stockings. The patient also reports a loss of muscle mass and has not been engaging in physical therapy or strength exercises. Finished ABx at hospital for possible PNA History of prostate ca - stable PMH: Patient Active Problem List Diagnosis Other [...] Sig Dispense Refill Blood Glucose Monitoring Suppl (Pin-Digital VERIO) w/Device KIT Use to check sugar daily E11.9 1 Kit 0 TheoremTOUCH DELICA LANCETS [facility] Use to test blood sugar once daily- dx E11.9 1 Each 5 traZODone HCl 100 MG Oral Tablet (Desyrel) Take 1 Tablet by mouth at bedtime. 90 Tablet 1 MesMateriauxuch Verio In Vitro Strip (Glucose Blood) Use up check sugar daily E11.9 100 Strip 3 oxyCODONE HCl 10 MG Oral Tablet [...] and 1 Tablet before bedtime. Midodrine HCl 2.5 MG Oral Tablet (Proamatine) Take 0.5 Tablets by mouth in the morning and 0.5 Tablets at noon and 0.5 Tablets in the evening. 30 Tablet 0 No current facility-administered medications for this visit. Past Medical History: Diagnosis Date Back pain, thoracic pain management with [facility] group BENIGN HYPERTENSION 03/30/2005 Closed fracture [...] performed by Lane Davis MD at ENDOSCOPY [facility] COLONOSCOPY, DIAGNOSTIC (RECTUM) 01/30/2019 tubulovillous adenomas polyp, diverticulosis, repeat 3 yrs/COLONOSCOPY FLEXIBLE PROXIMAL DIAGNOSTICperformed by Lane Davis MD at ENDOSCOPY [facility] COLONOSCOPY, DIAGNOSTIC (RECTUM) N/A 05/09/2023 diverticulosis/multiple non-bleeding colonic angiodysplastic lesions/biopsies show adenomatous polyp/recall 1 year/COLONOSCOPY FLEXIBLE PROXIMAL DIAGNOSTIC performed by Lane Davis MD at ENDOSCOPY [facility] EGD, FLEXIBLE, DIAGNOSTIC 07/07/2020 GE junction possibly small varices, variant mucosa in the antrum, letitia-ampullary diverticulum /biopsy intestinal metaplasia / recall 1 year / ESOPHAGOGASTRODUODENOSCOPY (EGD), FLEXIBLE, TRANSORAL, DIAGNOSTIC performed by Lane Davis MD at ENDOSCOPY [facility] EGD, FLEXIBLE, DIAGNOSTIC N/A 05/09/2023 intestinal metaplasia/recall 1 year/ESOPHAGOGASTRODUODENOSCOPY (EGD), FLEXIBLE, TRANSORAL, DIAGNOSTIC performed by Lane Davis MD at ENDOSCOPY [facility] EGD, W/ENDOSCOPIC US N/A 11/18/2021 abnormal echogenicity of liver/biopsies of liver show bridging fibrosis and focal nodule formation in background of minimal to mild steatosis/intrahepatocellular diastase resistant globues present/ESO PHAGOGASTRODUODENOSCOPY (EGD), FLEXIBLE, TRANSORAL, ENDOSCOPIC ULTRASOUND performed by Rodolfo Gonsalez MD at OR [facility] INJECT DX/THER SUBSTANCE INTERLAMINAR LUMBAR/SACRAL W IMAGE GUIDE 10/06/2022 INJECTION SPINE LUMBAR OR SACRAL performed by Wil Simon DO at OR [facility] INJECT DX/THER SUBSTANCE INTERLAMINAR LUMBAR/SACRAL W IMAGE GUIDE 06/29/2023 INJECTION SPINE LUMBAR OR SACRAL performed by Robert Shah DO at OR [facility] INJECT DX/THER SUBSTANCE INTERLAMINAR LUMBAR/SACRAL W IMAGE GUIDE 11/09/2023 INJECTION SPINE LUMBAR OR SACRAL performed by Robert Shah DO at OR [facility] INSERTION OF LENS [...] level: Not on file Occupational History Employer: [employer] Comment: [employer] 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: [employer] Comment: [employer] Tobacco Use Smoking status: Former Current packs/day: 0.00 Average packs/day: 1 pack/day for 20.0 years (20.0 ttl pk-yrs) Types: Cigarettes Start date: 03/28/1966 Quit date: 03/28/1986 Years since quittin.0 Passive exposure: Past Smokeless tobacco: Never Vaping Use Vaping status: Never Used Substance and Sexual Activity Alcohol use: No Drug use: No Sexual activity: Not on file Other Topics Concern Not on file Social History Narrative 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 (Household - for ages 0-17 years): Not on file Does your family need food this week? (Household - for ages 0-17 years): Not on file Do you always have enough food for your family? (Household - for ages 0-17 years): Not on file Transportation Needs: No Transportation Needs (09/22/2023) Transportation [...] Stability Do you currently live in a residential or have no steady place to sleep [...] of Systems Constitutional: Positive for activity change (declining) and fatigue. Negative for appetite change,chills, diaphoresis, fever and unexpected weight change. HENT: Negative for ear pain and hearing loss. Eyes: Negative for visual disturbance. Respiratory: Negative for cough, chest tightness, shortness of breath and wheezing. Cardiovascular: Negative for chest pain, palpitations and leg swelling. Gastrointestinal: Negative for abdominal distention, abdominal pain, nausea and vomiting. Endocrine: Negative. Musculoskeletal: Positive for gait problem. Neurological: Positive for dizziness, weakness (generalized) and light- headedness. Negative for tremors, seizures, syncope, speech difficulty and numbness. Psychiatric/Behavioral: Positive for dysphoric mood. Negative for agitation and behavioral problems. The patient is not nervous/anxious. Objective BP 132/62 | Pulse 76 | Temp 97.5 F (36.4 C) (Infrared ) | Resp 16 | Wt 195 lb (88.5 kg) | SpO2 95% | BMI 27.98 kg/m | BSA 2.09 m Physical Exam Constitutional: General: He is not in acute distress. Appearance: Normal appearance. He is not ill-appearing, toxic-appearing or diaphoretic. HENT: Head: Normocephalic and atraumatic. Nose: Nose normal. Eyes: Extraocular Movements: Extraocular movements intact. Cardiovascular: Rate and Rhythm: Normal rate and regular rhythm. Pulses: Normal pulses. Heart sounds: Normal heart sounds. No murmur heard. Pulmonary: Effort: Pulmonary effort is normal. No respiratory distress. Breath sounds: No stridor. Rales (RLL mild) present. No wheezing or rhonchi. Chest: Chest wall: No tenderness. Musculoskeletal: General: No tenderness. Right lower leg: No edema. Left lower leg: No edema. Neurological: General: No focal deficit present. Mental Status: He is alert and oriented to person, place, and time. Psychiatric: Behavior: Behavior normal. ASSESSMENT/PLAN: Orthostatic hypotension (Primary) - HOME HEALTH REFERRAL OP Risk and functional assessment Chronic heart failure with preserved ejection fraction ([facility]) - HOME HEALTH REFERRAL OP - COMPREHENSIVE METABOLIC PANEL; Future; Expected date: 04/19/2024 Type 2 diabetes mellitus with hemoglobin A1c goal of less than 8.0% (HCC) Stage 3b chronic kidney disease (HCC) - COMPREHENSIVE METABOLIC PANEL; Future; Expected date: 04/19/2024 Protein-calorie malnutrition, unspecified severity (HCC) - HOME HEALTH REFERRAL OP HTN, goal below 130/80 Cirrhosis of liver with ascites, unspecified hepatic cirrhosis type (HCC) - HOME HEALTH REFERRAL OP Generalized weakness - HOME HEALTH REFERRAL OP Hospital discharge follow-up - DISCH MED RECON CUR MED LIS Prostate CA (HCC) Other orders - Midodrine HCl 2.5 MG Oral Tablet (Proamatine); Take 0.5 Tablets by mouth in the morning and 0.5 Tablets at noon and 0.5 Tablets in the evening. Follow Up: Return for Labs Today. | For: Labs Today Assessment & Plan Orthostatic Hypotension secondary to Autonomic Dysfunction Patient with liver cirrhosis, kidney disease, and hypertension experiencing postural hypotension. Previous trial of midodrine was unsuccessful. Discussed the complex pathophysiology and limited treatment options. -Start midodrine at a low dose (1.25mg) up to three times a day as needed, with close monitoring ofblood pressure. -Encourage regular fluid intake throughout the day. -Advise use of compression stockings during the day. -Order home health physical therapy and occupational therapy to focus on strength exercises, particularly for the lower limbs. Liver Cirrhosis and Kidney Disease Discussed the impact of these conditions on blood pressure regulation and potential for end organ damage. -Check liver and kidney function today and repeat in one week. -Continue monitoring with cartridge assembling machine adjuster. Diabetes Improved control with weight loss, recent HbA1c was normal. -No changes to management at this time. Thrombophlebitis Minor peripheral thrombophlebitis noted, expected to resolve on its own over 2-3 weeks. -No intervention needed at this time. Follow-up Scheduled for Jun and September. Deb Camara MD documented in this encounter Nursing Notes * Tatiana Stiles LPN - 04/19/2024 1:52 PM EST Chief Complaint Patient presents with Hospital Follow-Up Pt here today for hospital discharge follow up Blood pressure list at 7:30 pm 166/72 Wed at 171/?? (Sitting) 81/?? (Standing) at 10:40 am Wed 145/?? (Sitting) 87/55 (standing) at 8 pm after shower BP was 97/51 pulse 107 Today at 11:45 am 143/55 sitting 75/48 standing. documented in this encounter Plan of Treatment Upcoming Encounters Date Type Department Care Team (Late st Contact Info) Description 04/26/2024 2:00 PM EST Office Visit Nephrology, [facility] [address] [place] [address] Kerri Garcia MD [address] [place] [address] 05/25/2024 1:00 PM EST Telemedicine [facility] [place] [address] [facility] [place] [address] Jackson Munoz MD [address] [facility] [place] [address] 07/03/2024 2:40 PM EDT Office Visit [facility] [address] [place] [id number] Jerzy Glez MD [address] [place] [address] 07/31/2024 11:40 AM EDT Office Visit Nephrology, [facility] [address] [place] [address] Kerri Garcia MD [address] [facility] [address] [place] [address] 08/13/2024 9:30 AM EDT Cardiac Studies Cardiac Studies, [facility] [address] [facility] [place] [place] [address] 08/21/2024 11:00 AM EDT Office Visit Cardiology, [facility] [address] [facility] [place] [address] Sandra Laura CRNP [address] [place] [address] 10/02/2024 10:40 AM EDT Office Visit [facility] [place] Jozef Carrero [address] [place] [phone] Deb Camara MD [address] [facility] [place] [address] Pending Results Name Type Priority Associated Diagnoses Date /Time COMPREHENSIVE METABOLIC PANEL Lab Routine Chronic heart failure with preserved ejection fraction (HCC) Stage 3b chronic kidney disease (HCC) 04/19/2024 2:52 PM EST Scheduled Orders Name Type Priority Associated Diagnoses Orde r Schedule COMPREHENSIVE METABOLIC PANEL Lab Routine Chronic heart failure with preserved ejection fraction (HCC) Stage 3b chronic kidney disease (HCC) Expected: 04/19/2024 (Approximate), Expires: 04/19/2025 Scheduled Procedures Name Priority Associated Diagnoses Date/Ti ar COLONOSCOPY FLEXIBLE PROXIMAL DIAGNOSTIC Recall History of colon polyps Intestinal Metaplasia Of Stomach ESOPHAGOGASTRODUODENOSCOPY ( EGD), FLEXIBLE, TRANSORAL, DIAGNOSTIC Recall History of colon polyps Intestinal Metaplasia Of Stomach Scheduled Referrals Name Type Priority Associated Diagnoses Orde r Schedule HOME HEALTH REFERRAL OP Referral Within 10 days (routine) Chronic heart failure with preserved ejection fraction (HCC) Protein-calorie malnutrition, unspecified severity (HCC) Cirrhosis of liver with ascites, unspecified hepatic cirrhosis type (HCC) Orthostatic hypotension Generalized weakness Ordered: 04/19/2024 Health Maintenance Due Date Last Done Comments DXA Scan 1950 Hepatitis B Vaccine (1 of 3 - Risk 3-dose series) 2008 Adult Wellness Visit 2014 Diabetic Eye Exam 10/20/2021 10/20/2020, , 09/15/2016, Additional history exists CKD PHOS USE SMARTSET 77776 10/08/202309/25, 08/17/2021, 03/06/2020, Additional history exists COVID-19 [...] Additional history exists CKD HGB USE SMARTSET 02493 02/09/202502/09, 10/25/2023, 10/25/2023, Additional history exists DTap/Tdap [...] this encounter Medical Devices Implanted Type Area Candy Maker Device Identifier Shelf Expiration Date Model / Serial / Lot Lens 19.0 [id number] - [id number] - [id number] Implanted:Qty: 1 on 08/09/2016 by Madi Frederick MD at OR [facility] Right: Eye KIMMIE : SURGICAL 2018 [id number] / [id number] / Hemostatic Clip Res 235cm - [id number] Implanted:Qty: 1 on 05/09/[address] Davis MD at ENDOSCOPY [facility] N/A: Stomach [employer] : ENDOSCOPY 11/15/2025 [id number] / / documented as of this encounter Visit Diagnoses Diagnosis Orthostatic hypotension- Primary Risk and functional assessment Screening for unspecified condition Chronic heart failure with preserved ejection fraction (HCC) Type 2 diabetes mellitus with hemoglobin A1c goal of less than 8.0% (HCC) Stage 3b chronic kidney disease (HCC) Protein-calorie malnutrition, unspecified severity (HCC) HTN, goal below 130/80 Unspecified essential hypertension Cirrhosis of liver with ascites, unspecified hepatic cirrhosis type (HCC) Generalized weakness Other malaise and fatigue Hospital discharge follow-up Other follow-up examination Prostate CA (HCC) Malignant neoplasm of prostate documented in this encounter Advance Directives * Full Code (Latest Code Status on File) Date Activated Date Inactivated Comments 08/09/2016 2:37 PM 08/09/2016 7:17 PM This order r eflects the patients wishes and were consensually agreed upon. Care Teams Garment Liner Relationship Specialty Start Date End Date Deb Camara MD PCP - General Internal Medicine 10/07/23 documented as of this encounter"
--- OUTSIDE RECORDS SUMMARY | 2024-05-17 04:49 | External Medical Summary ---
Author Name Unknown Address Unknown Organization [id number]:[facility] - [address] [place] [address] Laboratory Report Ordering Provider Test Date Status ERIN CALDERON 04/24/2024 09:40:10 Final Warfarin Therapy
INR: 2 .0-3.0 conventional anticoagulation
INR: 2.5- 3.5 high intensity anticoagulation Observation Date Value Abnormality Reference (Units ) Status PT 04/24/2024 09:40:10 15.4 Above high normal 11 .6-15.2 (seconds) Final INR 04/24/2024 09:40:10 1.2 0.8-1.2 Final Performing Location [facility] - [address] [place] [address]
--- OUTSIDE RECORDS SUMMARY | 2024-05-17 04:49 | External Medical Summary ---
Author Name Unknown Address Unknown Organization K01:[facility] [place] - [address] [facility] [place] [address] Laboratory Report Ordering Provider Test Date Status CHARLOTTE WHITT 04/19/2024 14:52:29 Final Observation Date Value Abnormality Reference (Units ) Status BUN 04/19/2024 14:52:29 20 6-20 (mg/dL) Final Creatinine 04/19/2024 14:52:29 1.1 0.6-1.2 (mg/dL) Final Glomerular filtration rate/1.73 sq M.predicted [Volume Rate/Area] in Serum, Plasma or Blood by Creatinine-based formula (CKD-EPI) 04/19/2024 14:52:29 69 >=60 (mL/min) Final eGFR is calculated based on the CKD-EPI 2020 equation. Sodium 04/19/2024 14:52:29 137 135-146 (m mol/L) Final Potassium 04/19/2024 14:52:29 4.7 3.5-5.1 (m mol/L) Final Cl 04/19/2024 14:52:29 104 98-107 (mm ol/L) Final CO2 04/19/2024 14:52:29 24 22-32 (mmo l/L) Final Anion gap 04/19/2024 14:52:29 9 7-15 (mmol /L) Final Glucose 04/19/2024 14:52:29 137 Above high normal 70 -120 (mg/dL) Final Albumin 04/19/2024 14:52:29 2.9 Below low normal 3.8 -5.0 (g/dL) Final AST (Aspartate aminotransferase) 04/19/2024 14:52:29 69 Above high normal 10-50 (U/L) Final Alk Phos 04/19/2024 14:52:29 378 Above high normal 35 -130 (U/L) Final Bilirubin, Total 04/19/2024 14:52:29 1.4 Above high no rmal <=1.2 (mg/dL) Final Calcium 04/19/2024 14:52:29 8.4 8.4-10.2 ( mg/dL) Final Protein 04/19/2024 14:52:29 6.3 6.0-8.3 (g /dL) Final ALT (Alanine aminotransferase) 04/19/2024 14:52:29 69 Above high normal 10-50 (U/L) Final Performing Location [facility] [place] - [address] [facility] [place] [address]
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
--- OUTSIDE RECORDS SUMMARY | 2024-05-17 04:50 | External Medical Summary | Summary of Care ---
Author Name Unknown Organization [facility] Address [address] [place] [address] Phone [phone] Care Team Providers Care Tape Edge Machine Operator Name Role Phone Deb Camara MD Primary Care Provider [phone] Reason for Visit * Reason Onset Date Comments Hospital Follow-Up 04/16/2024 Encounter Details Date Type Department Care Team (Late st Contact Info) Description 04/16/2024 Telephone [facility] [address] [place] [address] GarciaKerri choi MD [address] [place] [address] Hospital Follow-Up Allergies Active Allergy Reactions Criticality Noted Date Comments Lisinopril 12/05/2023 dizziness Losartan 05/24/2023 Dizziness documented as of this encounter (statuses as of 04/18/2024) Medications Blood Glucose Monitoring Suppl (ONETOUCH VERIO) w/Device KITIndications:DM type 2, not at goal ([facility]),Type 2 diabetes mellitus with hemoglobin A1c goal of less than 8.0% ([facility]) Use to check sugar daily E11.9 1 Kit 9 Active ONETOUCH DELICA LANCETS FINE MISCIndications:D M type 2, not at goal ([facility]),Type 2 diabetes mellitus with hemoglobin A1c goal of less than 8.0% ([facility]) Use to test blood sugar once [...] Blood)Indications :DM type 2, not at goal ([facility]),Type 2 diabetes mellitus with hemoglobin A1c goal of less than 8.0% ([facility]) Use up check sugar daily E11.9 [...] as of this encounter (statuses as of 04/18/2024) Active Problems Problem Noted Date Diagnosed Date [...] as of this encounter (statuses as of 04/18/2024) Resolved Problems Problem Noted Date Diagnosed Date [...] as of this encounter (statuses as of 04/18/2024) Immunizations Name Administration Dates Next Due COVID-19 mRNA, LNP-s, No Pre serve, 2-Dose Series ([facility]) 02/02/2021,06/14/2020,05/24/2020 COVID-19, LNP-s, No Preserve , Ellis-sucrose, [...] encounter Miscellaneous Notes * Telephone Encounter - Brandee Henning RN - 04/16/2024 1:56 PM EST Both mobile numbers called, message left to return call to schedule HD appointment with Dr. Garcia in 1 month. * Telephone Encounter - Jaja Quiroz LPN - 04/16/2024 12:56 PM EST Please schedule * Telephone Encounter - Mary Jane Wang RN - 04/16/2024 12:02 PM EST Patient discharged from [facility] 04/16/24. Needs follow up in 1 month for Nephrology. documented in this encounter Plan of Treatment Upcoming Encounters Date Type Department Care Team (Late st Contact Info) Description 04/19/2024 2:00 PM EST Office Visit Brian Borjas [address] [place] [phone] Deb Camara MD [address] [place] [address] 04/26/2024 2:00 PM EST Office Visit Nephrology, [facility] [address] [place] [address] Kerri Garcia MD [address] [place] [address] 05/25/2024 1:00 PM EST Telemedicine Rad[facility] [place] [address] [facility] [place] [address] Jackson Munoz MD [address] [facility] [place] [address] 07/03/2024 2:40 PM EDT Office Visit [facility] [address] [facility] [place] [phone] Jerzy Glez MD [address] [place] [address] 07/31/2024 11:40 AM EDT Office Visit Nephrology, [facility] [address] [place] [address] Kerri Garcia MD [address] [facility] [place] [address] 08/13/2024 9:30 AM EDT Cardiac Studies Cardiac Studies, [facility] [address] [facility] [place] [address] 08/21/2024 11:00 AM EDT Office Visit Cardiology, [facility] [address] [facility] [place] [address] Sandra Laura CRNP [address] [place] [address] 10/02/2024 10:40 AM EDT Office Visit [facility] [address] [facility] [place] [phone] Deb Camara MD [address] [place] [address] Scheduled Procedures Name Priority Associated Diagnoses Date/Ti [...] Additional history exists CKD PHOS USE SMARTSET 61443 10/08/202309/25, 08/17/2021, 03/06/2020, Additional history exists COVID-19 [...] Additional history exists CKD HGB USE SMARTSET 72158 02/09/202502/09, 10/25/2023, 10/25/2023, Additional history exists DTap/Tdap [...] this encounter Medical Devices Implanted Type Area Cargo Router Device Identifier Shelf Expiration Date Model / Serial / Lot Lens 19.0 Cz70bd - [id number] - [id number] Implanted:Qty: 1 on 08/09/2016 by Madi Frederick MD at OR [facility] Right: Eye KIMMIE : SURGICAL 2018 [id number] / [id number] / Hemostatic Clip Res 235cm - [id number] Implanted:Qty: 1 on 05/09/[address] MD at [facility]OSCOPY [facility] N/A: Stomach [employer] : ENDOSCOPY 11/15/2025 [id number] / / documented as of this encounter Advance Directives * Full Code (Latest Code Status on File) Date Activated Date Inactivated Comments 08/09/2016 2:37 PM 08/09/2016 7:17 PM This order r eflects the patients wishes and were consensually agreed upon. Care Teams Tape Edge Machine Operator Relationship Specialty Start Date End Date Deb Camara MD PCP - General Internal Medicine 10/07/23 documented as of this encounter
[2024-05-17] MEDS: SODIUM CHLORIDE 0.9% 1,000 ML IV ONE (05:25)
[2024-05-17] MEDS: DOXYCYCLINE HYCLATE 100 MG in DEXTROSE 5% MINI-B 100 ML IV STA (05:25)
[2024-05-17] MEDS: INSULIN ASPART PER UNIT CHARGE SC SCH (05:27)
[2024-05-17 06:38] LABS: Albumin Globulin Ratio 0.6 (0.9-2); Albumin Level 2.5 gm/dl (3.4-5.0); BUN Creatinine Ratio 21.4 (10-20); Bilirubin,Total 1.1 mg/dl (0.2-1.0); Calcium 8.2 mg/dl (8.6-10.3); Potassium 4.2 mmol/L (3.5-5.1); Total Protein 6.5 gm/dl (6.0-8.3)
[2024-05-17 07:53] LABS: Basophils # (auto) 0.08 K/uL (0.00-0.20); Basophils % (auto) 0.8 %; Eosinophils # (auto) 0.67 K/uL (0.00-0.50); Eosinophils % (auto) 6.5 %; Hematocrit (blood only) 33.4 % (42.0-52.0); Hemoglobin 11.7 g/dl (14.0-18.0); Immature Granulocytes # (auto) 0.05 K/uL (0.01-0.20); Immature Granulocytes % (auto) 0.5 %; Lymphocytes # (auto) 2.87 K/uL (1.20-3.40); Lymphocytes % (auto) 27.7 %; Mean Corpuscular Volume 97.1 fL (80.0-100.0); Mean Platelet Volume 11.2 fL (9.4-12.4); Monocytes # (auto) 0.74 K/uL (0.11-0.59); Monocytes % (auto) 7.1 %; Neutrophils # (auto) 5.95 K/uL (1.40-6.50); Neutrophils % (auto) 57.4 %; Platelet Count 160 K/uL (130-400); RDW Coefficient of Variation 13.8 % (11.5-14.5); Red Blood Count 3.44 M/uL (4.70-6.10); White Blood Count 10.36 K/ul (4.8-10.8)
[2024-05-17] MEDS: oxyCODONE HCL IR 5 MG TAB (IMMEDIATE RELEASE) PO SCH (07:53)
[2024-05-17] MEDS: MIDODRINE HCL 2.5 MG TAB PO SCH ×2 (08:57→12:32)
[2024-05-17] MEDS: ENOXAPARIN INJ 40 MG/0.4 ML SYR SQ SCH (08:57)
[2024-05-17] MEDS: SODIUM CHLORIDE 1 GM TABLET PO SCH (08:57)
[2024-05-17] MEDS ORDERED: MELATONIN 3 MG TAB PO PRN (09:24)
[2024-05-17] MEDS ORDERED: MIDODRINE HCL 2.5 MG TAB PO SCH (12:00)
--- NOTE | 2024-05-17 12:16 | Communication Note ---
Date of Service: May 17, 2024 Patient was seen and examined at bedside. 73-year-old male with PMH of chronic diastolic heart failure [EF 60%, TTE 2023], orthostatic hypotension on midodrine and salt tablet, ILD, endocarditis, T2DM diet-controlled, chronic anemia [baseline hemoglobin of 11-12], NAFLD cirrhosis, prostate cancer, chronic back pain on narcotics, past tobacco abuse presents with dizziness and 2 day's complaint of cough with yellow sputum. Patient denies chest pain or shortness of breath. Patient has been seen almost monthly since February 2024 with complaints of dizziness while standing up. Patient was evaluated at neurology office as an outpatient and was started on midodrine for orthostatic hypotension attributed to autonomic neuropathy and recommended discontinuing trazodone. Patient to continue to follow-up with outpatient neurology for possible Parkinson variant testing and neuropathy testing. Positive ortho vitals noted at ED. He is being managed for the following: Dizziness on standing: Recurrent orthostasis History autonomic neuropathy currently on midodrine and sodium chloride tablets. Ortho vitals +ve at ED Ortho vitals, gentle ivf, encourage PO intake/protein intake Slow change in position, thigh high compression stocking. Titrate midodrine, nephrology consult for follow-up eval if with recurrent orthostasis despite maximal dose midodrine Complicated bronchitis: doxy for 5 days. Other chronic medical conditions: Continue with/resume home meds as when able. Chronic diastolic heart failure (EF 60 %, TTE 2023), patient on the dry side hx valvular heart disease (mild MR/TR) History of ILD history endocarditis DM2 diet-controlled, well-controlled as of recent hemoglobin A1c of 5.1 this month , c/w SSI. chronic anemia, hemoglobin at baseline NAFLD cirrhosis, no overt decompensation prostate cancer status post surgery chronic back pain on narcotics past tobacco abuse DVT prophylaxis. Lovenox subcu Full code Patient Ms. Sinai Munoz, contact #[phone]. For detailed information on the patient, refer to today's H&P note. Text document was generated using [employer] voice recognition software. It may contain grammatical or spelling errors. Kindly contact undersigned for clarification of any documentation item in question.
--- NOTE | 2024-05-17 15:51 | Electrocardiogram Report ---
Test Reason : Blood Pressure : */* mmHG Vent. Rate : 71 BPM Atrial Rate : 71 BPM P-R Int : 190 ms QRS Dur : 102 ms QT Int : 400 ms P-R-T Axes : 47 -26 8 degrees QTcB Int : 434 ms Normal sinus rhythm Moderate voltage criteria for LVH, may be normal variant Borderline ECG When compared with ECG of 07-Apr-2024 18:34, Inverted T waves have replaced nonspecific T wave abnormality in Inferior leads Confirmed by Hany Moreland ([id number]) on 05/17/2024 3:51:13 PM Referred By: REFERRED SELF Confirmed By: Hany Moreland
[2024-05-17] MEDS: DOXYCYCLINE HYCLATE 100 MG CAP PO SCH (20:46)
[2024-05-17] MEDS ORDERED: traZODone HCL 100 MG TAB PO SCH (21:00)
[2024-05-17] MEDS: ACETAMINOPHEN 500 MG TAB PO PRN (23:49)
[2024-05-17] MEDS: PROMETHAZINE 6.25 MG/50.25 ML BAG IV PRN (23:49)
[2024-05-18 06:34] LABS: Hematocrit (blood only) 30.3 % (42.0-52.0); Hemoglobin 10.6 g/dl (14.0-18.0); Mean Corpuscular Hemoglobin 34.1 pg (25.0-34.0); Mean Corpuscular Volume 97.4 fL (80.0-100.0); Platelet Count 140 K/uL (130-400); RDW Standard Deviation 49.9 fL (36.4-46.3); Red Blood Count 3.11 M/uL (4.70-6.10); White Blood Count 9.37 K/ul (4.8-10.8)
[2024-05-18 06:49] LABS: Albumin Level 2.2 gm/dl (3.4-5.0); BUN Creatinine Ratio 20.6 (10-20); Bilirubin Direct 0.3 mg/dl (0-0.2); Bilirubin,Total 1.2 mg/dl (0.2-1.0); Creatinine Clr Calc Pharmacy 66.9 ml/min; Magnesium 1.8 mg/dl (1.7-2.4); Phosphorus 2.9 mg/dl (2.5-4.9)
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
--- NOTE | 2024-05-18 16:12 | Hospitalist Progress Note ---
Date of Service May 18, 2024 Assessment & Plan (1) Dizziness on standing: Plan 73-year-old male with PMH of chronic diastolic heart failure [EF 60%, TTE 2023], orthostatic hypotension on midodrine and salt tablet, ILD, endocarditis, T2DM diet-controlled, chronic anemia [baseline hemoglobin of 11-12], NAFLD cirrhosis, prostate cancer, chronic back pain on narcotics, past tobacco abuse presents with dizziness and 2 day's complaint of cough with yellow sputum. Patient den ies chest pain or shortness of breath. Patient has been seen almost monthly since February 2024 with complaints of dizziness while standing up. Patient was evaluated at neurology office as an outpatient and was started on midodrine for orthostatic hypotension attributed to autonomic neuropathy and recommended discontinuing trazodone. Patient to continue to follow-up with outpatient neurology for possible Parkinson variant testing and neuropathy testing. Positive ortho vitals noted at ED. He was managed for the following: Dizziness on standing: Recurrent orthostasis History autonomic neuropathy currently on midodrine and sodium chloride tablets. Ortho vitals +ve at ED Ortho vitals +ve, s/p gentle ivf, encourage PO intake/protein intake Pt feels better today, pt/ot evaled, appreciate recs. Slow change in position, thigh high compression stocking, increase protein content in diet. pt has been counselled on these at bedside. Midodrine dose increased, Nephro consult placed. Complicated bronchitis: doxy for 5 days. Other chronic medical conditions: Continue with/resume home meds as when able. Chronic diastolic heart failure (EF 60 %, TTE 2023), patient on the dry side hx valvular heart disease (mild MR/TR) History of ILD history endocarditis DM2 diet-controlled, well-controlled as of recent hemoglobin A1c of 5.1 this month , c/w SSI. chronic anemia, hemoglobin at baseline NAFLD cirrhosis, no overt decompensation prostate cancer status post surgery chronic back pain on narcotics past tobacco abuse DVT prophylaxis. Lovenox subcu Full code Patient Ms. Sinai Munoz, contact #[phone]. Text document was generated using [employer] voice recognition software. It may contain grammatical or spelling errors. Kindly contact undersigned for clarification of any documentation item in question. Admission and Anticipated Discharge Date Admission Date: May 17, 2024 Subjective Patient seen and examined at bedside. Patient was sitting up in bed, on room air, NAD, resting comfortably. Patient appears more alert and feels better today. Patient's he was given a phone call and advised to follow-up with neph rology and neurology as an outpatient for ongoing evaluation of his orthostatic hypotension. Patient's frustrated with patient not improving with orthostatic hypotension and would like nephrology to see him while inpatient. Nephrology consult placed. Discharge canceled. Physical Exam Physical Exam: GENERAL: AOx3, NAD, resting comfortably, no respiratory distress SKIN: Pallor, warm HEENT: Pale palpebral conjunctivae, no ptosis, moist buccal mucosa NECK : Supple, no tenderness CHEST : Decreased breath sounds, occasional expiratory wheezes, no tenderness HEART : RRR, systolic murmur ABDOMEN: Some distention, nontender EXTREMITIES : No LE swelling, no LE tenderness, no other conspicuous deformities noted NEUROLOGIC : Coherent, no facial asymmetry, gait and stance not assessed Results & Data Results & Data Vital Signs (Past 12 Hours) Vital Signs Temp Pulse Pulse Resp BP Pulse Ox O2 Del Method 05/18/24 15:16 36.8 C 64 20 149/68 H 96 Room Air 05/18/24 13:57 64 05/18/24 11:00 36.7 C 67 18 143/69 H 95 Room Air 05/18/24 07:59 36.7 C 77 20 145/61 H 96 Room Air 05/18/24 07:00 63
[2024-05-18 23:47] VITALS: RESP 16
[2024-05-19 09:40] LABS: BUN Creatinine Ratio 20.4 (10-20); Calcium 8.5 mg/dl (8.6-10.3); Magnesium 1.7 mg/dl (1.7-2.4); Phosphorus 2.9 mg/dl (2.5-4.9); Potassium 4.4 mmol/L (3.5-5.1)
--- NOTE | 2024-05-19 14:56 | Nephrology Consultation ---
Date of Consultation May 19, 2024 Assessment & Plan (1) Autonomic postural hypotension: Chronic problem and already follows with nephrology and neurology. Continue Midodrine and Salt tab. Dose of Midodrine was raised to 7.5 this admission and can be continued at that dose. Salt tab can be continued--No edema at all but CXR is slightly concerning and we do have to be careful. Continue Compression Stocking. Only other Rx that can be tried is Florinef. But given that his Standing BP lately are all above 100 or even above 110 Syctolic we dont need to add anything. (2) Pneumonia: had Slightly elevated WBC with Low grade fever and cough + CXR finding. On Abx currently. To be continued. advised to make sure to eat/Drink enough to avoid volume depletion. Plan Total time spent 48 mins History of Present Illness Reason for Consultation: orthostatic Hypotension Attending Physician: Cesar Weiss MD History of Present Illness 73/M with Known orthostatic Hypotension problem followed by Dr Garcia. is already on Midodrine 5 tid and Salt tab 1 gm bid. Also has chronic diastolic heart failure (EF 60 %, TTE 2023), valvular heart disease (mild MR/TR), ILD, history of endocarditis, DM2 diet-controlled, chronic anemia (baseline hemoglobin 11-12), NAFLD cirrhosis, prostate cancer, chronic back pain on narcotics, past tobacco abuse. Monthly admissions since February 2024. Recent confinement last month for recurrent dizziness attributed to orthostatic hypotension Patient also treated for possible pneumonia. Patient seen at Neurology office for evaluation of dizziness last week. Lowest SBP of 80s documented at the office. orthostatic hypotension attributed to autonomic neuropathy.Outpatient testing recommended for possible Parkinson's variant and neuropathy testing. Neurologist also recommended discontinuing trazodone. This time 2 days ago Came in with Not feeling good, ? fever and gen weakness + Cough. CXr Showed Possible bronchitis/Pneumonia and getting Abx--Doxycycline Now feels back to baseline. but has poor gen health--barely gets out of bed. Appetite is fine but morris shave some nausea. Supposed to be discharged today. Last Standing BP was 110 Sys. ROS--See HPI Physical Exam Physical Exam: GENERAL: Slightly uncomfortable, no respiratory distress SKIN: Pallor, warm NECK : Supple, no tenderness CHEST : Decreased breath sounds, occasional expiratory wheezes, no tenderness HEART : RRR, systolic murmur AbDOMEN: Some distention, nontender EXTREMITIES : No edema NEUROLOGIC : Coherent, no facial asymmetry, intention tremors, gait and stance not assessed Allergies Allergy/AdvReac Type Severity Reaction Status Date / Time lisinopril Allergy Dizziness Verified 05/17/24 04:21 losartan Allergy Dizziness Verified 05/17/24 04:21 Home Medications Medication Instructions Recorded Confirmed Type oxycodone 10 mg tablet 10 mg PO QID 01/02/22 05/17/24 History diphenhydramine 25 1 tab PO HS PRN Sleep 05/17/24 05/17/24 History mg-acetaminophen 500 mg tablet (Tylenol PM Extra Strength) midodrine 5 mg tablet 5 mg PO TID 05/17/24 05/17/24 History sodium chloride 1,000 mg soluble 1 g PO BID 05/17/24 05/17/24 History tablet doxycycline hyclate 100 mg capsule 100 mg PO BID 4 days #8 caps 05/18/24 Rx midodrine 2.5 mg tablet 7.5 mg (3 x 2.5 mg) PO TIDM 30 05/18/24 Rx days #90 tabs Patient History Medical History Anemia Cirrhosis H/O endocarditis DMII (diabetes mellitus, type 2) CKD (chronic kidney disease), stage III Hypertensive urgency Acute decompensated heart failure Opioid type dependence, unspecified Social History Smoking Status: Former smoker Tobacco Type: Cigarettes Cigarettes Per Day: 15; Second Hand Exposure: No; Do You Dip or Chew Tobacco: No; Hx Alcohol Use: No Hx Substance Use: No Preferred Language: [place] Leonean Communication Ability: Effective Telephone Solicitor Supervisor Required: No Beliefs That Will Affect Care: None marital status: Current Living Situation: Spouse Other Information That Helps Us Care for You: No Feels Safe at Home: Yes Safety Concerns: Feels Safe At This Time Assistive Devices: Denture - Upper and Denture - Lower Results & Data Vital Signs (Past 12 Hours) Vital Signs Temp Pulse Pulse Resp BP BP Pulse Ox 05/19/24 11:50 36.9 C 64 16 145/59 H 96 05/19/24 07:46 37 C 66 16 147/56 H 95 05/19/24 07:28 61 05/19/24 03:49 37 C 65 16 136/48 L 95 O2 Del Method 05/19/24 11:50 Room Air 05/19/24 07:46 Room Air 05/19/24 07:28 05/19/24 03:49 Room Air
[2024-05-19 16:20] VITALS: BP 162/72; PULSE 73; TEMP 98.8; O2SAT 95
== END 2024-05-19 18:09 | disposition home or self-care (01) | DRG 57 ==
LOC: EDINP 22:32 → ED 22:32 → 2N 05-17 04:21

== ENCOUNTER 2024-07-25 20:18 | Inpatient (IN) ==
[2024-07-25 21:35] LABS: Alanine Aminotransferase 28 U/L (7-52); Albumin Globulin Ratio 0.5 (0.9-2); Albumin Level 2.5 gm/dl (3.4-5.0); Alkaline Phosphatase 275 U/L (34-104); Anion Gap 1 (3-11); Aspartate Aminotransferase 53 U/L (13-39); BUN Creatinine Ratio 20.2 (10-20); Blood Urea Nitrogen 24 mg/dl (6-23); Calcium 8.2 mg/dl (8.6-10.3); Carbon Dioxide 27 mmol/L (21-32); Chloride 108 mmol/L (98-107); Globulin 4.8 gm/dl (2.5-4.0); Glucose 125 mg/dl (70-99(Fasting)); Magnesium 1.8 mg/dl (1.7-2.4); Potassium 4.5 mmol/L (3.5-5.1); Sodium 136 mmol/L (136-145); Total Protein 7.3 gm/dl (6.0-8.3)
[2024-07-25 21:41] LABS: Troponin I High Sensitivity 14.1 pg/ml (0-20)
[2024-07-25 21:55] LABS: Influenza A virus by PCR Negative (Neg); Influenza B virus by PCR Negative (Neg); RSV by PCR Negative (Neg); SARS CoV2 RNA(COVID-19) Ceph NEGATIVE (Negative)
[2024-07-25 22:11] LABS: Basophils # (auto) 0.08 K/uL (0.00-0.20); Basophils % (auto) 0.6 %; Eosinophils % (auto) 4.8 %; Hematocrit (blood only) 38.3 % (42.0-52.0); Immature Granulocytes # (auto) 0.04 K/uL (0.01-0.20); Immature Granulocytes % (auto) 0.3 %; Lymphocytes # (auto) 2.73 K/uL (1.20-3.40); Lymphocytes % (auto) 21.8 %; Mean Corpuscular Hemoglobin 33.9 pg (25.0-34.0); Mean Corpuscular Hgb Conc 33.9 g/dL (32.0-36.0); Mean Corpuscular Volume 99.7 fL (80.0-100.0); Mean Platelet Volume 11.5 fL (9.4-12.4); Monocytes # (auto) 0.97 K/uL (0.11-0.59); Monocytes % (auto) 7.8 %; Neutrophils # (auto) 8.08 K/uL (1.40-6.50); Neutrophils % (auto) 64.7 %; Platelet Count 204 K/uL (130-400); RDW Coefficient of Variation 14.2 % (11.5-14.5); RDW Standard Deviation 51.8 fL (36.4-46.3); Red Blood Count 3.84 M/uL (4.70-6.10)
[2024-07-25 22:19] LABS: INR 1.1 (0.9-1.1); Partial Thromboplastin Ratio 1.1; Partial Thromboplastin Time 29 Seconds (21-31); Prothrombin Time 11.8 Seconds (9.0-12.0)
--- NOTE | 2024-07-25 23:28 | XRay Report ---
Exam(s): XR CXR 1 VIEW EXAM: XR Chest, 1 View CLINICAL HISTORY: Reason for exam: Chest pain, nonspecific. TECHNIQUE: Frontal view of the chest. COMPARISON: Chest x-ray: 05/17/2024 there is mild cardiomegaly. FINDINGS: Lungs: There is mild lower lobe interstitial thickening and subsegmental atelectasis. Pleural space: There is mild blunting of the costophrenic angles suggestive of small pleural effusions. No pneumothorax. Heart: Unremarkable. No cardiomegaly. Mediastinum: Cardial mediastinal silhouette is unremarkable for portable AP technique. Bones/joints: There are chronic healed posterior sixth, seventh and eighth right-sided rib fractures. IMPRESSION: 1. There is mild lower lobe interstitial thickening and subsegmental atelectasis. 2. There is mild blunting of the costophrenic angles suggestive of small pleural effusions. Electronically signed by: Kalpesh Jennings MD 07/25/24 23:27 PM
--- OUTSIDE RECORDS SUMMARY | 2024-07-26 00:43 | External Medical Summary ---
Author Name Unknown Address Unknown Organization [id number]:[facility] [place] - [address] [place] [address] Laboratory Report Ordering Provider Test Date Status ANN MARIE FIELDS 07/24/2024 13:54:00 Final 1. First draw "Time Zero" (a t time of Cosyntropin Injection)
2. Second draw 30 minutes post injection
3. Third draw 60 minutes post injection Observation Date Value Abnormality Reference (Units ) Status Cortisol 07/24/2024 13:54:00 9.3 2.5-19.5 ( ug/dL) Final AM Reference Range: 4.8 - 19 .5 ug/dL
PM Reference Range: 2.5 - 11.9 ug/dL Performing Location [facility] [place] - [address] [place] [address]
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
--- OUTSIDE RECORDS SUMMARY | 2024-07-26 00:43 | External Medical Summary ---
Author Name Unknown Address Unknown Organization K01:LABORATORY [facility] [place] - [facility] [address] [place] [address] Laboratory Report Ordering Provider Test Date Status CHARLOTTE WHITT 07/24/2024 13:54:00 Final Observation Date Value Abnormality Reference (Units ) Status WBC, Total 07/24/2024 13:54:00 11.93 Above high normal 4.00-10.80 (K/uL) Final RBC 07/24/2024 13:54:00 3.69 4.50-5.25 (M/uL) Final Hemoglobin 07/24/2024 13:54:00 12.9 Below low normal 14.0-16.8 (g/dL) Final HCT 07/24/2024 13:54:00 38.4 Below low normal 40.0-48.4 (%) Final MCV 07/24/2024 13:54:00 104.1 82.0-99.5 (fL) Final MCH 07/24/2024 13:54:00 35.0 27.0-34.0 (pg) Final MCHC 07/24/2024 13:54:00 33.6 32.0-36.0 (g/dL) Final RDW 07/24/2024 13:54:00 14.2 11.5-15.5 (%) Final Platelets 07/24/2024 13:54:00 198 140-400 (K/uL) Final MPV 07/24/2024 13:54:00 11.9 6.6-11.1 (fL) Final Nucleated erythrocytes/100 leukocytes [Ratio] in Blood by Automated count 07/24/2024 13:54:00 0 <=0 (/100 WBCs) Final Performing Location LAB[facility]ATORY [facility] [place] - [facility] [place] [address]
--- OUTSIDE RECORDS SUMMARY | 2024-07-26 00:43 | External Medical Summary ---
Author Name Unknown Address Unknown Organization K01:LABORATORY [facility] [place] - [address] [place] [address] Laboratory Report Ordering Provider Test Date Status CHARLOTTE WHITT 07/24/2024 13:54:00 Final Exclude Heart Failure: <300 pg/mL
Diagnose Heart Failure:
Age <50 yr: >450 pg/mL
50-75 yr: >900 pg/mL
>75 yr: >1800 pg/mL
GFR is 30-59 mL/min: >1200 pg/mL or Age- adjusted values
GFR <30 mL/min: do not use, not reliable

Prognostic threshold: 1000 pg/mL Observation Date Value Abnormality Reference (Units ) Status BNP, Pro-hormone 07/24/2024 13:54:00 1109 Above high no rmal <300 (pg/mL) Final Performing Location LABORATORY [facility] [place] - [address] [place] [address]
--- OUTSIDE RECORDS SUMMARY | 2024-07-26 00:43 | External Medical Summary | Summary of Care ---
Author Name Unknown Organization [facility] Address [address] [place] [address] Phone [phone] Care Team Providers Care Railroad Car Inspector Name Role Phone Deb Camara MD Primary Care Provider [phone] Reason for Visit * Reason Onset Date Comments Outpatient Testing 07/11/2024 Encounter Details Date Type Department Care Team (Late st Contact Info) Description 07/11/2024 Telephone NephrologyBari [address] [place] [address] GarciaKerri choi MD [address] [place] [address] Outpatient Testing Allergies Active Allergy Reactions Criticality Noted Date Comments Lisinopril 12/05/2023 dizziness Losartan 05/24/2023 Dizziness documented as of this encounter (statuses as of 07/11/2024) Medications Midodrine HCl 5 MG Oral Tablet (Proamatine) Take 1 Tablet by mouth in the morning and 1 Tablet at noon and 1 Tablet in the evening. 270 Tablet 3 Active Additional Information Patient taking differently:5 mg OralBID (.AM/PM), Reported on 06/28/2024 Tylenol PM Extra Strength 500-25 MG Oral [...] Tablet before bedtime. 120 Tablet 5 Active documented as of this encounter (statuses as of 07/11/2024) Active Problems Problem Noted Date Diagnosed Date [...] as of this encounter (statuses as of 07/11/2024) Resolved Problems Problem Noted Date Diagnosed Date [...] as of this encounter (statuses as of 07/11/2024) Immunizations Name Administration Dates Next Due COVID-19 mRNA, LNP-s, No Pre serve, 2-Dose Series ([employer]) 02/02/2021,06/14/2020,05/24/2020 COVID-19, LNP-s, No Preserve , Ellis-sucrose, [...] Telephone Encounter - Bee Parikh RN - 07/11/2024 9:23 AM EDT Any updates on this testing? * Telephone Encounter - Bee Parikh RN - 07/11/2024 9:23 AM EDT ----- Message from Kerri Garcia MD sent at 06/21/2024 9:41 PM EDT ----- Cortisol levels indeterminate on screen for adrenal insufficiency >> needs more in depth test, high dose cosyntropin stim test: 1) FASTING 0800 blood draw > cortisol, carlitos, renin, bmp, acth 2) 250 mcg ACTH IM or IV 3) repeat cortisol at 30 and 60 min post ACTH TIMING of above steps important; copying our nurses /tree fruit and nut crops farmer to see best way to proceed ?infusion center; ? Neph RN? >>pls update me on best path forward to do above test and I will order documented in this encounter Plan of Treatment Upcoming Encounters Date Type Department Care Team (Late st Contact Info) Description 07/24/2024 1:00 PM EDT [facility] [address] [place] [phone] Deb Camara MD [address] [place] [address] 07/31/2024 11:40 AM EDT Office Visit Nephrology, [facility] [address] [place] [address] Kerri Garcia MD 200 [place] [address] 08/21/2024 11:00 AM EDT Office Visit Cardiology, [facility] [address] [place] [phone] Sandra Laura CRNP [address] [place] [address] 10/02/2024 10:40 AM EDT Office Visit [facility] Marizol Philippeefpolina Carrero [address] [place] [phone] Deb Camara MD [address] [place] [address] 11/12/2024 11:20 AM EDT Office Visit Hepatology, [facility] [address] [place] [phone] Kaity Comer DO [address] [place] [address] 11/23/2024 1:00 PM EDT Telemedicine [facility] [address] [facility] [place] [address] Jackson Munoz MD [address] [facility] [place] [address] Scheduled Procedures Name Priority Associated Diagnoses Date/Ti [...] Additional history exists CKD PHOS USE SMARTSET 86443 04/19/202503/29, 04/15/2024, 10/07/2022, Additional history exists B-12 05/10/2025 05/10/2024, 10/0 10/2023, 01/04/2023, Additional history exists CKD HGB USE SMARTSET 97354 05/10/202505/10, 05/10/2024, 04/24/2024, Additional history exists Albumin/Creatinine [...] this encounter Medical Devices Implanted Type Area Chief Relay Tester Device Identifier Shelf Expiration Date Model / Serial / Lot Lens 19.0 Cz70bd - [id number] - [id number] Implanted:Qty: 1 on 08/09/2016 by Madi Frederick MD at OR [facility] Right: Eye KIMMIE : SURGICAL 2018 [id number] / [id number] / Hemostatic Clip Res 235cm - [id number] Implanted:Qty: 1 on 05/09/[address] MD at ENDOSCOPY [facility] N/A: Stomach [employer] : ENDOSCOPY 11/15/2025 [id number] / / documented as of this encounter Advance Directives * Full Code (Latest Code Status on File) Date Activated Date Inactivated Comments 08/09/2016 2:37 PM 08/09/2016 7:17 PM This order r eflects the patients wishes and were consensually agreed upon. Care Teams Railroad Car Inspector Relationship Specialty Start Date End Date Deb Camara MD [address] [place] [address] PCP - General Internal Medicine 05/09/24 documented as of this encounter
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
--- OUTSIDE RECORDS SUMMARY | 2024-07-26 00:43 | External Medical Summary ---
Author Name Unknown Address Unknown Organization [id number][place] [facility] [place] [address] [place] [facility] [place] [address] Laboratory Report Ordering Provider Test Date Status CHARLOTTE WHITT 07/24/2024 13:54:00 Final Observation Date Value Abnormality Reference (Units ) Status BUN 07/24/2024 13:54:00 27 Above high normal 6-20 (mg/dL) Final Creatinine 07/24/2024 13:54:00 1.2 0.6-1.2 (mg/dL) Final Glomerular filtration rate/1.73 sq M.predicted [Volume Rate/Area] in Serum, Plasma or Blood by Creatinine-based formula (CKD-EPI) 07/24/2024 13:54:00 61 >=60 (mL/min) Final eGFR is calculated based on the CKD-EPI 2020 equation. Sodium 07/24/2024 13:54:00 139 135-146 (m mol/L) Final Potassium 07/24/2024 13:54:00 5.1 3.5-5.1 (m mol/L) Final Cl 07/24/2024 13:54:00 105 98-107 (mm ol/L) Final CO2 07/24/2024 13:54:00 24 22-32 (mmo l/L) Final Anion gap 07/24/2024 13:54:00 10 7-15 (mmol /L) Final Glucose 07/24/2024 13:54:00 130 Above high normal 70 -120 (mg/dL) Final Albumin 07/24/2024 13:54:00 2.4 Below low normal 3.8 -5.0 (g/dL) Final AST (Aspartate aminotransferase) 07/24/2024 13:54:00 61 Above high normal 10-50 (U/L) Final Alk Phos 07/24/2024 13:54:00 313 Above high normal 35 -130 (U/L) Final Bilirubin, Total 07/24/2024 13:54:00 1.1 <=1 .2 (mg/dL) Final Calcium 07/24/2024 13:54:00 8.3 Below low normal 8.4 -10.2 (mg/dL) Final Protein 07/24/2024 13:54:00 6.6 6.0-8.3 (g /dL) Final ALT (Alanine aminotransferase) 07/24/2024 13:54:00 41 10-50 (U/L) Bladimir wilson Performing Location [facility] [facility] [place] [address] [facility] [address]
--- OUTSIDE RECORDS SUMMARY | 2024-07-26 00:43 | External Medical Summary ---
Author Name Unknown Address Unknown Organization K01[place] [place] [address] [place] [address] Laboratory Report Ordering Provider Test Date Status CHINOДМИТРИЙCHARLOTTE 07/24/2024 13:54:00 Final Observation Date Value Abnormality Reference (Units ) Status Troponin T 07/24/2024 13:54:00 24 Above high normal < =22 (ng/L) Final Performing Location LABORATORY [facility] - [address] [place] [address]
--- OUTSIDE RECORDS SUMMARY | 2024-07-26 00:43 | External Medical Summary ---
Author Name Unknown Address Unknown Organization K01[place] [facility] [place] [address] [place] [address] Laboratory Report Ordering Provider Test Date Status CHARLOTTE WHITT 07/24/2024 13:54:00 Final Observation Date Value Abnormality Reference (Units ) Status SYNC LEUKOCYTES IN BLOOD BY AUTOMATED COUNT 07/24/2024 13:54:00 11.93 Above high normal 4.00-10.80 (K/uL) Final Segs 07/24/2024 13:54:00 66.6 40.0-75.0 (%) Final Lymphs % 07/24/2024 13:54:00 19.8 18.0-42.0 (%) Final Monos 07/24/2024 13:54:00 7.0 1.0-11.0 (%) Final Eosinophils 07/24/2024 13:54:00 5.6 0.0-6.0 (%) Final Basos 07/24/2024 13:54:00 0.7 0.0-2.0 (%) Final Immature Granulocyte, Percent 07/24/2024 13:54:00 0.3 0.0-2.0 (%) Final Absolute Segs 07/24/2024 13:54:00 7.96 Above high normal 1.80-7.70 (K/uL) Final Lymphs, absolute 07/24/2024 13:54:00 2.36 1.00-4.80 (K/ul) Final Monos, Abs 07/24/2024 13:54:00 0.83 0.00-1.10 (K/uL) Final Eos, Abs 07/24/2024 13:54:00 0.67 0.00-0.70 (K/uL) Final Basos, Abs 07/24/2024 13:54:00 0.08 0.00-0.20 (K/uL) Final Immature Granulocytes, Number 07/24/2024 13:54:00 0.03 0.00-0.20 (K/uL) Final Performing Location [place] [facility] [place] [address] [facility] [address]
--- OUTSIDE RECORDS SUMMARY | 2024-07-26 00:44 | External Medical Summary | Summary of Care ---
Author Name Unknown Organization [facility] Address [address] [place] [address] Phone [phone] Care Team Providers Care Domestic Travel Consultant Name Role Phone Deb Camara MD Primary Care Provider [phone] Reason for Referral * Evaluate & Treat - Unlimited Visits (Within 10 days (routine)) - Authorized Specialty Diagnoses / Procedures Referred By Contac t Referred To Contact Pharmacist / Pharmacy Diagnoses Chronic pain syndrome Controlled substance agreement signed Deb Camara MD [address] [place] [address] Phone: tel: fax: Referral ID Status Reason Start Date Expiration Date Visits Requested Visits Authorized [id number] Authorized Specialty Services Required 06/14/2024 12/11/2024 99 99 Question Answer Referral Priority Within 10 days (routine) Where should this appointment be scheduled? [facility] Referring Provider Role: Primary Care Reason for Referral: Pain Pain Diagnosis: Chronic Pain Syndrome Further Details of Diagnosis: chronic pain Pain Treatment Options: Opioids and/or Non-opioids Does patient have a signed JEFF? This is required for patients on opioids Yes Has patient completed a Urine Drug Screen in the past 3 months? This is required for patients on opioids No Pain Treatment Goal: Med Optimization Comments Pharmacist Medication Therapy Management: Minimum frequency patient should be seen in person for medication management: as appropriate per clinical condition and patient status By my signature, I understand that my patient Delvis Munoz will have his medication therapy managed by the [facility] Medication Therapy Disease Management Clinic (MTD) per established policies, procedures, and protocols. I also certify that this referral may serve as an initiation of service for the management of drug therapy in the above noted patient. [facility] providers will be responsible for scheduling patient visits, obtaining appropriate laboratory studies, and adjusting medication management therapy per patient's need, in addition to those roles spelled out in the clinic policy, procedures, and drug management protocols. I understand that the service provided by the [facility] is voluntary and have informed patient that they can refuse the service at their discretion. I am aware that the [facility] will provide me with a copy of the patient encounter via my [employer]. I authorize the [facility] to carry out these activities on my behalf. I consider this program to be a necessary part of the patient's medical care. Deb Camara MD Encounter Details Date Type Department Care Team (Late st Contact Info) Description 06/14/2024 Telephone [facility] Jozef Carrero [address] [place] [phone] Deb Camara MD [address] [facility] [place] [address] Allergies Active Allergy Reactions Criticality Noted Date Comments Lisinopril 12/05/2023 dizziness Losartan 05/24/2023 Dizziness documented as of this encounter (statuses as of 06/14/2024) Medications Midodrine HCl 5 MG Oral Tablet (Proamatine) Take 1 Tablet by mouth in the morning and 1 Tablet at noon and 1 Tablet in the evening. 270 Tablet 3 Active Additional Information Patient taking differently:5 mg OralBID (.AM/PM), Reported on 05/28/2024 Tylenol PM Extra Strength 500-25 MG Oral [...] as of this encounter (statuses as of 06/14/2024) Active Problems Problem Noted Date Diagnosed Date [...] as of this encounter (statuses as of 06/14/2024) Resolved Problems Problem Noted Date Diagnosed Date [...] as of this encounter (statuses as of 06/14/2024) Immunizations Name Administration Dates Next Due COVID-19 mRNA, LNP-s, No Pre serve, 2-Dose Series ([employer]) 02/02/2021,06/14/2020,05/24/2020 COVID-19, LNP-s, No Preserve , Ellis-sucrose, [...] encounter Miscellaneous Notes * Telephone Encounter - Curtis Costa OSA - 06/14/2024 2:52 PM EDT Patient will be called to schedule * Telephone Encounter - Deb Camara MD - 06/14/2024 1:35 PM EDT Please schedule with MTM for Pain Chronic issue And also requiring U tox update Please get it done documented in this encounter Plan of Treatment Upcoming Encounters Date Type Department Care Team (Late st Contact Info) Description 06/28/2024 1:00 PM EDT Office Visit Neurology [facility] [place] [address] [place] [address] Meme Perez MD [address] [facility] [place] [address] 06/28/2024 2:00 PM EDT Office Visit Nephrology, [facility] [place] [address] [place] [address] Kerri Garcia MD [address] [facility] [place] [address] 07/24/2024 1:00 PM EDT Office Visit [facility] [address] [place] [address] Deb Camara MD [address] [place] [address] 07/31/2024 11:40 AM EDT Office Visit Nephrology, [facility] [address] [place] [address] Kerri Garcia MD [address] [place] [address] 08/21/2024 11:00 AM EDT Office Visit Cardiology, [facility] [place] [address] [place] [address] Sandra Laura CRNP [address] [place] [address] 10/02/2024 10:40 AM EDT [facility] [address] [place] [phone] Deb Camara MD [address] [place] [address] 11/12/2024 11:20 AM EDT Office Visit Hepatology, [facility] [address] [place] [phone] Kaity Comer DO [address] [place] [address] 11/23/2024 1:00 PM EDT Telemedicine [facility] [place] [address] [facility] [place] [address] Jackson Munoz MD [address] [facility] [place] [address] Scheduled Orders Name Type Priority Associated Diagnoses Orde r Schedule TOXICOLOGY, URINE SCREEN W/ CONFIRMATION Lab Routine Chronic pain syndrome Controlled substance agreement signed Expected: 06/14/2024, Expires: 06/14/2025 Scheduled Procedures Name Priority Associated Diagnoses Date/Ti me COLONOSCOPY FLEXIBLE PROXIMAL DIAGNOSTIC Recall History of colon polyps Intestinal Metaplasia Of Stomach ESOPHAGOGASTRODUODENOSCOPY ( EGD), FLEXIBLE, TRANSORAL, DIAGNOSTIC Recall History of colon polyps Intestinal Metaplasia Of Stomach Scheduled Referrals Name Type Priority Associated Diagnoses Orde r Schedule PHARMACIST MEDS THERAPY MGMT REFERRAL OP Referral Within 10 days (routine) Chronic pain syndrome Controlled substance agreement signed Ordered: 06/14/2024 Health Maintenance Due Date Last Done Comments DXA Scan 1950 Hepatitis B Vaccine (1 of 3 - Risk 3-dose series) 2008 Adult Wellness Visit 2014 COVID-19 Vaccine ( season) 2023 12/30/2022, 10/08/2021, 02/02/2021, Additional history exists Colonoscopy 05/09/2024 05/09/2023, 04/28, 01/30/2019, Additional history exists Albumin/Creatinine Ratio 06/19/2024 024, 10/07/2022, 08/17/2021, Additional history exists Depression Monitoring 09/21/2024 09/22/2023, 024 GFR 10/22/2024 04/24/2024, 03/29, 04/15/2024, Additional history exists CKD PHOS USE SMARTSET 46834 04/19/202503/29, 04/15/2024, 10/07/2022, Additional history exists B-12 05/10/2025 05/10/2024, 10/2023, 01/04/2023, Additional history exists CKD HGB USE SMARTSET 09649 05/10/202505/10, 05/10/2024, 04/24/2024, Additional history exists DTap/Tdap [...] this encounter Medical Devices Implanted Type Area Insurance Customer Service Specialist Device Identifier Shelf Expiration Date Model / Serial / Lot Lens 19.0 [id number] - [id number] - [id number] Implanted:Qty: 1 on 08/09/2016 by Madi Frederick MD at OR [facility] Right: Eye KIMMIE : SURGICAL 2018 [id number] / [id number] / Hemostatic Clip Res 235cm - [id number] Implanted:Qty: 1 on 05/09/[address] MD at ENDOSCOPY [facility] N/A: Stomach [employer] : ENDOSCOPY 11/15/2025 [id number] / / documented as of this encounter Visit Diagnoses Diagnosis Chronic pain syndrome- Primary Controlled substance agreement signed Encounter for long-term (current) use of other medications documented in this encounter Advance Directives * Full Code (Latest Code Status on File) Date Activated Date Inactivated Comments 08/09/2016 2:37 PM 08/09/2016 7:17 PM This order r eflects the patients wishes and were consensually agreed upon. Care Teams Domestic Travel Consultant Relationship Specialty Start Date End Date Deb Camara MD [address] [facility] [place] [address] PCP - General Internal Medicine 05/09/24 documented as of this encounter
--- OUTSIDE RECORDS SUMMARY | 2024-07-26 00:44 | External Medical Summary | Summary of Care ---
Author Name Unknown Organization [facility] Address [address] [place] [address] Phone [phone] Care Team Providers Care Assistant Federal Public Defender Name Role Phone Deb Camara MD Primary Care Provider [phone] Reason for Referral * Evaluate & Treat - Unlimited Visits (Within 10 days (routine)) - Authorized Specialty Diagnoses / Procedures Referred By Contac t Referred To Contact Pharmacist / Pharmacy Diagnoses Chronic pain syndrome Controlled substance agreement signed Deb Camara MD [address] [place] [address] Phone: tel: fax: Referral ID Status Reason Start Date Expiration Date Visits Requested Visits Authorized [id number] Authorized Specialty Services Required 06/14/2024 12/11/2024 99 99 Question Answer Referral Priority Within 10 days (routine) Where should this appointment be scheduled? [facility] Referring Provider Role: [...] have his medication therapy managed by the [facility] Medication Therapy Disease Management Clinic (MTD) per established policies, procedures, and protocols. I also certify that this referral may serve as an initiation of service for the management of drug therapy in the above noted patient. [facility] providers will be responsible for scheduling patient visits, obtaining appropriate laboratory studies, and adjusting medication management therapy per patient's need, in addition to those roles spelled out in the clinic policy, procedures, and drug management protocols. I understand that the service provided by the [facility] is voluntary and have informed patient that they can refuse the service at their discretion. I am aware that the [facility] will provide me with a copy of the patient encounter via my [employer]. I authorize the [facility] to carry out these activities on my behalf. I consider this program to be a necessary part of the patient's medical care. Deb Camara MD Encounter Details Date Type Department Care Team (Late st Contact Info) Description 06/14/2024 Telephone [facility] Jozef Carrero [address] [place] [phone] Deb Camara MD 226 [facility] [place] [address] Allergies Active Allergy Reactions [...] mRNA, LNP-s, No Pre serve, 2-Dose Series ([employer]soft) 02/02/2021,06/14/2020,05/24/2020 COVID-19, LNP-s, No Preserve , Ellis-sucrose, [...] PM EDT Office Visit Neurology [facility] [place] [address] [facility] [place] [address] Meme Perez MD [address] [facility] [place] [address] 06/28/2024 2:00 PM EDT Office Visit Nephrology, [facility] [place] [address] [place] [address] Kerri Garcia MD [address] [facility] [place] [address] 07/24/2024 1:00 PM EDT Office Visit [facility] [address] [facility] [place] [phone] Deb Camara MD [address] [place] [address] 07/31/2024 11:40 AM EDT [facility] [address] [place] [address] Kerri Garcia MD [address] [facility] [place] [address] 08/21/2024 11:00 AM EDT Office Visit Cardiology, [facility] [place] [address] [place] [address] Sandra Laura CRNP [address] [place] [address] 10/02/2024 10:40 AM EDT [facility] [address] [place] [phone] Deb Camara MD [address] [place] [address] 11/12/2024 11:20 AM EDT Office Visit Hepatology, [facility] [address] [place] [phone] Kaity Comer DO [address] [place] [address] 11/23/2024 1:00 PM EDT Telemedicine [facility] [place] [address] [facility] [place] [address] Jackson Munoz MD [address] [facility] [place] [address] Scheduled Orders Name Type Priority Associated Diagnoses [...] Additional history exists CKD PHOS USE SMARTSET 10195 04/19/202503/29, 04/15/2024, 10/07/2022, Additional history exists B-12 05/10/2025 05/10/2024, 10/2023, 01/04/2023, Additional history exists CKD HGB USE SMARTSET 01832 05/10/202505/10, 05/10/2024, 04/24/2024, Additional history exists DTap/Tdap [...] this encounter Medical Devices Implanted Type Area Epoxy Specialist Device Identifier Shelf Expiration Date Model / Serial / Lot Lens 19.0 Cz70bd - [id number] - [id number] Implanted:Qty: 1 on 08/09/2016 by Madi Frederick MD at OR [facility] Right: Eye KIMMIE : SURGICAL 2018 [id number] / [id number] / Hemostatic Clip Res 235cm - [id number] Implanted:Qty: 1 on 05/09/[address] MD at ENDOSCOPY [facility] N/A: Stomach [employer] : ENDOSCOPY 11/15/2025 [id number] / / documented as of this encounter [...] and were consensually agreed upon. Care Teams Assistant Federal Public Defender Relationship Specialty Start Date End Date Deb Camara MD [address] [facility] [place] [address] PCP - General Internal Medicine 05/09/24 documented as of this encounter
--- OUTSIDE RECORDS SUMMARY | 2024-07-26 00:44 | External Medical Summary ---
Author Name Unknown Address Unknown Organization K01:[facility] [address] [place] [address] Laboratory Report Ordering Provider Test Date Status CHARLOTTE WHITT 06/18/2024 12:07:43 Final Cutoff Concentrations:
D rug Level
Oxycodone 50 ng/mL
Oxymorphone 50 ng/mL

This test was developed and its performance characteristics determined by [employer]. It has not been cleared or approved by the [place] Food and Drug Administration. Observation Date Value Abnormality Reference (Units ) Status METHODOLOGY 06/18/2024 12:07:43 LC-MS/MS Final oxyCODONE cutoff [Mass/volume] in Urine for Confirmatory method 06/18/2024 12:07:43 3016 Above high normal Negative (ng/mL) Final oxyMORphone cutoff [Mass/volume] in Urine for Confirmatory method 06/18/2024 12:07:43 2128 Above high normal Negative (ng/mL) Final Performing Location [facility] [address] [place] [address]
--- OUTSIDE RECORDS SUMMARY | 2024-07-26 00:44 | External Medical Summary | Summary of Care ---
Author Name Unknown Organization [facility] Address [address] [facility] [place] [address] Phone [phone] Care Team Providers Care Story Writer Name Role Phone Deb Camara MD Primary Care Provider [phone] Reason for Visit * Reason Onset Date Comments Referral 06/14/2024 [facility] Pain Manage ment Encounter Details Date Type Department Care Team (Late st Contact Info) Description 06/14/2024 Telephone [facility], Estefania Chicas [address] [place] [address] [place] [phone] Deb Camara MD [address] [facility] [place] [address] Referral ([facility] Pain Management ) Allergies Active Allergy Reactions Criticality Noted Date Comments Lisinopril 12/05/2023 dizziness Losartan 05/24/2023 Dizziness documented as of this encounter (statuses as of 06/22/2024) Medications Midodrine HCl 5 MG Oral Tablet [...] as of this encounter (statuses as of 06/22/2024) Active Problems Problem Noted Date Diagnosed Date [...] as of this encounter (statuses as of 06/22/2024) Resolved Problems Problem Noted Date Diagnosed Date [...] as of this encounter (statuses as of 06/22/2024) Immunizations Name Administration Dates Next Due COVID-19 mRNA, LNP-s, No Pre serve, 2-Dose Series ([place]) 02/02/2021,06/14/2020,05/24/2020 COVID-19, LNP-s, No Preserve , Ellis-sucrose, [...] Miscellaneous Notes * Telephone Encounter - Sumaya Arnold [facility] - 06/22/2024 11:59 AM EDT Noted, thank you. Sumaya Arnold, PharmD Clinical Pharmacist Medication Therapy Management Clinic 06/22/24, 11:59 AM * Telephone Encounter - Courtney Elkins PHARM Tech - 06/22/2024 11:53 AM EDT Called patient to schedule referral for pain management, spoke to [facility]. stated that atthe moment patient is not ready to schedule due to having multiple other appointments. Informed herto reach out to [facility] clinic when ready to schedule and that referral will be canceled in the meantime and is good for 6 months after cancellation to schedule. Discharging patient from [facility] services at this time. Courtney Elkins Educational/Development Assistant [facility] Clinical [facility] [address] [place] [address] Dr. [address] [place] [phone] 06/22/2024,11:55 AM * Telephone Encounter - Sumaya Arnodl RPh - 06/14/2024 1:43 PM EDT Referral reviewed and is appropriate. Please schedule. Initial appt length: 60 min Appointment type indicated: In Person or video (patient preference) Preferred Clinic for Appointment: closest available [facility] clinic Patient referred to [facility] clinic for Pain Management Regimen optimization on behalf of Deb Camara MD. Referral reviewed and relevant pre-visit information listed below: Pain: Relevant history obtained from referral: Indication for Pharmacist Medication Therapy Management: Diagnosis: chronic pain syndrome Information provided via referring provider via referral: Has JEFF, need updated UDS - order placed by PCP Is patient on opioids: Yes - oxycodone 10 mg - 1 tablet TID Is this referral for wean: No, Follow-up as scheduled. Sumaya Arnold RPh 06/14/2024, 1:43 PM * Telephone Encounter - Courtney Elkins respite provider - 06/14/2024 1:41 PM EDT Comments Pharmacist Medication Therapy Management: Minimum frequency patient should be seen in person for medication management: as appropriate per clinical condition and patient status By my signature, I understand that my patient Delvis Munoz will have his medication therapy managedby the [facility] Medication Therapy Disease Management Clinic ([facility] [...] understand that the service provided by the [facility] is voluntary and have informed patient that they can refuse the service at their discretion. I am aware that the [facility] will provide me with a copy of the patient encounter via my [employer]. I authorize the [facility] to carry out these activities on my behalf. I consider this program to be a necessary part of the patient's medical care. Deb Camara MD Order Specific Questions Referral Priority Within 10 days (routine) Where should this appointment be scheduled? [facility] Referring Provider Role: Primary Care Reason [...] opioids No Pain Treatment Goal: Med Optimization documented in this encounter Plan of Treatment Upcoming Encounters Date Type Department Care Team (Late st Contact Info) Description 06/28/2024 1:00 PM EDT Office Visit Neurology [place] [facility] Dicks[place] [address] [place] [address] Meme Perez MD [address] [place] [address] 06/28/2024 2:00 PM EDT Office Visit Nephrology, Bari Cervantes [address] [place] [address] [address] Kerri Garcia MD 200 [facility] [place], [place] [address] 07/24/2024 1:00 PM EDT Office [facility] [place] [address] [place] [phone] Deb Camara MD [address] [place] [address] 07/31/2024 11:40 AM EDT Office Visit Nephrology, [facility] [address] [facility] [place] [address] Kerri Garcia MD [address] [facility] [place] [address] 08/21/2024 11:00 AM EDT Office Visit Cardiology, [facility] [place] [address] [place] [phone] Sandra Laura CRNP [address] [place] [address] 10/02/2024 10:40 AM EDT Office [facility] [place] [address] [place] [phone] Deb Camara MD [address] [facility] [place] [address] 11/12/2024 11:20 AM EDT Office Visit Hepatology, [facility] [address] [place] [address] Kaity Comer DO [address] [place] [address] 11/23/2024 1:00 PM EDT Telemedicine [facility] [place] [address] [place] [address] Jackson Munoz MD [address] [place] [address] Scheduled Procedures Name Priority Associated Diagnoses Date/Ti [...] 05/09/2023, 04/28, 01/30/2019, Additional history exists Depression Monitoring 09/21/2024 09/22/2023, 024 GFR 10/22/2024 04/24/2024, 03/29, 04/15/2024, Additional history exists CKD PHOS USE SMARTSET 67989 04/19/202503/29, 04/15/2024, 10/07/2022, Additional history exists B-12 05/10/2025 05/10/2024, 10/2023, 01/04/2023, Additional history exists CKD HGB USE SMARTSET 16101 05/10/202505/10, 05/10/2024, 04/24/2024, Additional history exists Albumin/Creatinine [...] this encounter Medical Devices Implanted Type Area Toll Collector Device Identifier Shelf Expiration Date Model / Serial / Lot Lens 19.0 Cz70bd - [id number] - [id number] Implanted:Qty: 1 on 08/09/2016 by Madi Frederick MD at OR [facility] Right: Eye [employer]IM[employer] : SURGICAL 2018 [id number] / [id number] / Hemostatic Clip Res 235cm - [id number] Implanted:Qty: 1 on 05/09/[address] MD at ENDOSCOPY [facility] N/A: Stomach [employer] : ENDOSCOPY 11/15/2025 [id number] / / documented as of this encounter Visit Diagnoses Diagnosis Chronic pain syndrome- Primary MEDICATION USE AGREEMENT documented in this encounter Advance Directives * Full Code (Latest Code Status on File) Date Activated Date Inactivated Comments 08/09/2016 2:37 PM 08/09/2016 7:17 PM This order r eflects the patients wishes and were consensually agreed upon. Care Teams Story Writer Relationship Specialty Start Date End Date Deb Camara MD [address] [place] [address] PCP - General Internal Medicine 05/09/24 documented as of this encounter
--- OUTSIDE RECORDS SUMMARY | 2024-07-26 00:44 | External Medical Summary | Summary of Care ---
Author Name Unknown Organization [facility] Address [address] [facility] [place] [address] Phone [phone] Care Team Providers Care Child Care Group Leader Name Role Phone Deb Camara MD Primary Care Provider [phone] Reason for Visit * Reason Onset Date Comments Referral 06/14/2024 [facility] Pain Manage ment Encounter Details Date Type Department Care Team (Late st Contact Info) Description 06/14/2024 Telephone Centralized Clinical Pharmacy Services, Estefania Chicas [address] [place] [address] [place] [address] Deb Camara MD 226 [facility] James [place] [address] Referral ([facility] Pain Management ) Allergies Active Allergy Reactions [...] mRNA, LNP-s, No Pre serve, 2-Dose Series (BigTwist) 02/02/2021,06/14/2020,05/24/2020 COVID-19, LNP-s, No Preserve , Ellis-sucrose, [...] Notes * Telephone Encounter - Sumaya Arnold [facility] - 06/22/2024 11:59 AM EDT [...] other appointments. Informed herto reach out to [facility] clinic when ready to schedule and that referral will be canceled in the meantime and is good for 6 months after cancellation to schedule. Discharging patient from [facility] services at this time. Courtney Elkins Primer Inserting Machine Operator Centralized Clinical Pharmacy Services [address] [place] [address] Dr. Novoa 200 [place] [phone] 06/22/2024,11:55 AM * Telephone Encounter - Sumaya Arnold RPh - 06/14/2024 1:43 PM EDT Referral reviewed and is appropriate. Please schedule. Initial appt length: 60 min Appointment type indicated: In Person or video (patient preference) Preferred Clinic for Appointment: closest available [facility] clinic Patient referred to [facility] [...] PM * Telephone Encounter - Courtney Elkins storage and backup administrator - 06/14/2024 1:41 PM EDT Comments Pharmacist Medication Therapy Management: Minimum frequency patient should be seen in person for medication management: as appropriate per clinical condition and patient status By my signature, I understand that my patient Delvis Munoz will have his medication therapy managedby the [facility] Medication Therapy Disease Management Clinic ([facility]) per established policies, procedures, and protocols. I also certify that this referral may serve as an initiation of service for the management of drug therapy in the above noted patient. [facility] providers will be responsible for scheduling patient visits, obtaining appropriate laboratory studies, and adjusting medication management therapy per patient's need, in addition to those roles spelled out in the clinic policy, procedures, and drug management protocols. I understand that the service provided by the [facility] is voluntary and have informed patient that they can refuse the service at their discretion. I am aware that the [facility] will provide me with a copy of the patient encounter via my [employer]. I authorize the [facility] to carry out these activities on my behalf. I consider this program to be a necessary part of the patient's medical care. Deb Camara MD Order Specific Questions Referral Priority Within 10 days (routine) Where should this appointment be scheduled? [facility] Referring Provider Role: Primary Care Reason [...] State Brunilda Dickson [address] [place] [address] Meme Perez MD [address] [place] [address] 06/28/2024 2:00 PM EDT Office Visit Nephrology, Bari Cervantes [address] [place] [address] [address] Kerri Garcia MD 200 [facility] [place], [place] [address] 07/24/2024 1:00 PM EDT [facility] [address] [place] [phone] Deb Camara MD [address] [place] [address] 07/31/2024 11:40 AM EDT Office Visit Nephrology, [facility] 200 [facility] [place] [address] Kerri Garcia MD 200 [facility] [place] [address] 08/21/2024 11:00 AM EDT Office Visit Cardiology, [facility] [address] [place] [phone] Sandra Laura CRNP [address] [place] [address] 10/02/2024 10:40 AM EDT [facility] [address] [place] [phone] Deb Camara MD 226 [facility] [place] [address] 11/12/2024 11:20 AM EDT Office Visit Hepatology, [facility] [address] [place] [address] Kaity Comer DO [address] [place] [address] 11/23/2024 1:00 PM EDT Telemedicine [facility] Tevin [address] [place] [address] Jackson Munoz MD [address] [place] [address] Scheduled Procedures Name Priority Associated Diagnoses Date/Ti [...] Additional history exists CKD PHOS USE SMARTSET 86782 04/19/202503/29, 04/15/2024, 10/07/2022, Additional history exists B-12 05/10/2025 05/10/2024, 10/2023, 01/04/2023, Additional history exists CKD HGB USE SMARTSET 43117 05/10/202505/10, 05/10/2024, 04/24/2024, Additional history exists Albumin/Creatinine [...] this encounter Medical Devices Implanted Type Area Corporate Physical Security Supervisor Device Identifier Shelf Expiration Date Model / Serial / Lot Lens 19.0 [id number] - [id number] - [id number] Implanted:Qty: 1 on 08/09/2016 by Madi Frederick MD at OR [facility] Right: Eye KIMMIE : SURGICAL 2018 [id number] 0 / [id number] / Hemostatic Clip Res 235cm - [id number] Implanted:Qty: 1 on 05/09/[address] Davis MD at ENDOSCOPY [facility] N/A: Stomach [employer] : ENDOSCOPY 11/15/2025 [id number] / / documented as of this encounter Visit Diagnoses Diagnosis Chronic pain syndrome- Primary MEDICATION USE AGREEMENT documented in this encounter Advance Directives * Full Code (Latest Code Status on File) Date Activated Date Inactivated Comments 08/09/2016 2:37 PM 08/09/2016 7:17 PM This order r eflects the patients wishes and were consensually agreed upon. Care Teams Child Care Group Leader Relationship Specialty Start Date End Date Deb Camara MD 226 [place] [address] PCP - General Internal Medicine 05/09/24 documented as of this encounter
--- OUTSIDE RECORDS SUMMARY | 2024-07-26 00:44 | External Medical Summary | Summary of Care ---
Author Name Unknown Organization [facility] Address [address] [facility] [address] Phone [phone] Care Team Providers Care Radio Sportscaster Name Role Phone Deb Camara MD Primary Care Provider [phone] Reason for Visit * Reason Comments Outpatient Testing Encounter Details Date Type Department Care Team (Late st Contact Info) Description 06/18/2024 12:00 PM EDT Laboratory Laboratory, [place] [facility] [address] [facility] [place] [phone] [place], Laboratory 226 [facility] [place], [place] [phone] Type 2 diabetes mellitus with hemoglobin A1c goal of less than 8.0% ([facility]); Chronic pain syndrome; Controlled substance agreement signed Allergies Active Allergy Reactions Criticality Noted Date Comments Lisinopril 12/05/2023 dizziness Losartan 05/24/2023 Dizziness documented as of this encounter (statuses as of 06/18/2024) Medications Midodrine HCl 5 MG Oral Tablet [...] as of this encounter (statuses as of 06/18/2024) Active Problems Problem Noted Date Diagnosed Date [...] as of this encounter (statuses as of 06/18/2024) Resolved Problems Problem Noted Date Diagnosed Date [...] as of this encounter (statuses as of 06/18/2024) Immunizations Name Administration Dates Next Due COVID-19 mRNA, LNP-s, No Pre serve, 2-Dose Series (3i Systems) 02/02/2021,06/14/2020,05/24/2020 COVID-19, LNP-s, No Preserve , Ellis-sucrose, Ages 12+ (3i Systems) 10/08/2021 Pneumococcal Conjugate Vacc, 13 Valent (Prevnar) [...] No 09/22/2023 Does the household have a aspirus ontonagon hospitalr source of income? (Household - for [...] Office Visit Neurology State Brunilda Dickson [address] [place] [address] Meme Perez MD 200 [facility] [place], [place] [address] 06/28/2024 2:00 PM EDT Office Visit Nephrology, [facility] [address] [place], [place] [address] Kerri Garcia MD 200 [facility] [place] [address] 07/24/2024 1:00 PM EDT Office Visit [facility] [place] [facility] [address] Deb Camara MD 226 [place] [address] 07/31/2024 11:40 AM EDT Office Visit Nephrology, [facility] 200 [facility] [place] [address] GarciaKerri choi MD 200 [facility] [place] [address] 08/21/2024 11:00 AM EDT Office Visit Cardiology, [facility] [address] [place] [address] Sandra Laura CRNP [address] [place] [address] 10/02/2024 10:40 AM EDT Office Visit [facility] [place] [facility] [address] [facility] [place] [address] Deb Camara MD 226 [facility] [place] [address] 11/12/2024 11:20 AM EDT Office Visit Hepatology, [facility] [address] [place] [address] Kaity Comer, [address] [place] [address] 11/23/2024 1:00 PM EDT Telemedicine [facility] Edda Abarca [address] [facility] [place] [address] Jackson Munoz MD [address] [facility] [place] [address] Pending Results Name Type Priority Associated Diagnoses Date /Time ALBUMIN / CREATININE RATIO, URINE Lab Routine Type 2 diabetes mellitus with hemoglobin A1c goal of less than 8.0% ([facility]) 06/18/2024 12:07 PM EDT TOXICOLOGY, URINE SCREEN W/ CONFIRMATION Lab Routine Chronic pain syndrome Controlled substance agreement signed 06/18/2024 12:07 PM EDT EXTRA URINE ALIQUOT Lab Routine Chronic pain syndrome Controlled substance agreement signed 06/18/2024 12:07 PM EDT Scheduled Procedures Name Priority Associated Diagnoses Date/Ti oh COLONOSCOPY FLEXIBLE PROXIMAL DIAGNOSTIC Recall History of [...] Additional history exists CKD PHOS USE SMARTSET 94064 04/19/2025/05/2024, 04/15/2024, 10/07/2022, Additional history exists B-12 05/10/2025 05/10/2024, 10/2023, 01/04/2023, Additional history exists CKD HGB USE SMARTSET 81969 05/10/202505/10, 05/10/2024, 04/24/2024, Additional history exists DTap/Tdap [...] this encounter Medical Devices Implanted Type Area Swimming Coach Device Identifier Shelf Expiration Date Model / Serial / Lot Lens 19.0 Cz70bd - [id number] - [id number] Implanted:Qty: 1 on 08/09/2016 by Madi Frederick MD at OR [facility] Right: Eye KIMMIE : SURGICAL 2018 [id number] 0 / [id number] / Hemostatic Clip Res 235cm - [id number] Implanted:Qty: 1 on 05/09/[address] Davis MD at ENDOSCOPY [facility] N/A: Stomach [facility] : ENDOSCOPY 11/15/2025 [id number] / / documented as of this encounter Visit Diagnoses Diagnosis Type 2 diabetes mellitus with hemoglobin A1c goal of less than 8.0% (H[facility]) Chronic pain syndrome Controlled substance agreement signed Encounter for long-term (current) use of other medications documented in this encounter Advance Directives * Full Code (Latest Code Status on File) Date Activated Date Inactivated Comments 08/09/2016 2:37 PM 08/09/2016 7:17 PM This order r eflects the patients wishes and were consensually agreed upon. Care Teams Radio Sportscaster Relationship Specialty Start Date End Date Deb Camara MD 226 [place] [address] PCP - General Internal Medicine 05/09/24 documented as of this encounter
--- OUTSIDE RECORDS SUMMARY | 2024-07-26 00:44 | External Medical Summary ---
Author Name Unknown Address Unknown Organization K01:[facility] [place] [address] [place] [address] Laboratory Report Ordering Provider Test Date Status SUMAYA,DURA 06/18/2024 12:07:43 Final Normal: <30 mg/g creatinine< br/>High: 30-300 mg/g creatinine
Very High: >300 mg/g creatinine
Nephrotic: >2200 mg/g creatinine Observation Date Value Abnormality Reference (Units ) Status Albumin, Urine 06/18/2024 12:07:43 59.00 (mg/dL) Final Creatinine, Urine 06/18/2024 12:07:43 124 (mg/dL) Final Albumin/Creatinine [Mass Ratio] in Urine 06/18/2024 12:07:43 476 Above high normal <30 (mg/g Creat) Final Performing Location [facility] [place] [address] [place] [address]
--- OUTSIDE RECORDS SUMMARY | 2024-07-26 00:44 | External Medical Summary | Summary of Care ---
Author Name Unknown Organization [facility] Address [address] [place] [address] Phone [phone] Care Team Providers Care Public Works Technician Name Role Phone Deb Camara MD Primary Care Provider [phone] Reason for Referral * Evaluate & Treat - Unlimited Visits (Within 10 days (routine)) - Authorized Specialty Diagnoses / Procedures Referred By Contac t Referred To Contact Pharmacist / Pharmacy Diagnoses Chronic pain syndrome Controlled substance agreement signed Deb Camara MD 226 [place] [address] Phone: tel: fax: Referral ID Status Reason Start Date Expiration Date Visits Requested Visits Authorized [id number] Authorized Specialty Services Required 06/14/2024 12/11/2024 99 99 Question Answer Referral Priority Within 10 days (routine) Where should this appointment be scheduled? [facility] Referring Provider Role: Primary Care Reason [...] have his medication therapy managed by the [facility] Medication Therapy Disease Management Clinic ([facility]) per established policies, procedures, and protocols. I also certify that this referral may serve as an initiation of service for the management of drug therapy in the above noted patient. [facility] providers will be responsible for scheduling patient visits, obtaining appropriate laboratory studies, and adjusting medication management therapy per patient's need, in addition to those roles spelled out in the clinic policy, procedures, and drug management protocols. I understand that the service provided by the [facility] is voluntary and have informed patient that they can refuse the service at their discretion. I am aware that the [facility] will provide me with a copy of the patient encounter via my Mashed jobs. I authorize the [facility] to carry out these activities on my behalf. I consider this program to be a necessary part of the patient's medical care. Deb Camara MD Encounter Details Date Type Department Care Team (Late st Contact Info) Description 06/14/[address] [facility] Jozef Carrero [address] [place] [address] Deb Camara MD 226 [facility] [place] [address] Allergies Active Allergy Reactions [...] mRNA, LNP-s, No Pre serve, 2-Dose Series (Eyeota) 02/02/2021,06/14/2020,05/24/2020 COVID-19, LNP-s, No Preserve , Ellis-sucrose, [...] PM EDT Office Visit Neurology [place] 200 [facility] [place] [address] Meme Perez MD 200 [facility] [place] [address] 06/28/2024 2:00 PM EDT Office Visit Nephrology, [facility] [place] [address] [place] [address] Kerri Garcia MD 200 [facility] [place] [address] 07/24/2024 1:00 PM EDT Office Visit [facility] 226 [place] [address] Deb Camara MD 226 [facility] [place] [address] 07/31/2024 11:40 AM EDT [facility] [address] [place] [address] Kerri Garcia MD 200 [facility] [place] [address] 08/21/2024 11:00 AM EDT Office Visit Cardiology, [facility] [place] [address] [place] [address] Sandra Laura CRNP 132 [place] [address] 10/02/2024 10:40 AM EDT [facility] [address] [place] [phone] Deb Camara MD [address] [place] [address] 11/12/2024 11:20 AM EDT Office Visit Hepatology, [facility] [address] [place] [phone] Kaity Comer DO [address] [place] [address] 11/23/2024 1:00 PM EDT Telemedicine [facility] [place] [address] [facility] [place] [address] Jackson Munoz MD [address] [facility] [place] [address] Scheduled Orders Name Type Priority Associated Diagnoses [...] Additional history exists CKD PHOS USE SMARTSET 86352 04/19/202503/29, 04/15/2024, 10/07/2022, Additional history exists B-12 05/10/2025 05/10/2024, 10/2023, 01/04/2023, Additional history exists CKD HGB USE SMARTSET 17098 05/10/202505/10, 05/10/2024, 04/24/2024, Additional history exists DTap/Tdap [...] this encounter Medical Devices Implanted Type Area Loan Operations Specialist Device Identifier Shelf Expiration Date Model / Serial / Lot Lens 19.0 Cz70bd - [id number] - [id number] Implanted:Qty: 1 on 08/09/2016 by Madi Frederick MD at OR [facility] Right: Eye KIMMIE : SURGICAL 2018 [id number] 0 / [id number] / Hemostatic Clip Res 235cm - [id number] Implanted:Qty: 1 on 05/09/[address] Davis MD at ENDOSCOPY [facility] N/A: Stomach [employer] : ENDOSCOPY 11/15/2025 [id number] / / documented as of this encounter [...] and were consensually agreed upon. Care Teams Public Works Technician Relationship Specialty Start Date End Date Deb Camara MD 226 [facility] [place] [address] PCP - General Internal Medicine 05/09/24 documented as of this encounter
--- OUTSIDE RECORDS SUMMARY | 2024-07-26 00:44 | External Medical Summary | Summary of Care ---
Author Name Unknown Organization [facility] Address [address] [facility] [place] [address] Phone [phone] Care Team Providers Care Legal Department Manager Name Role Phone Deb Camara MD Primary Care Provider [phone] Reason for Visit * Reason Onset Date Comments Referral 06/14/2024 [facility] Pain Manage ment Encounter Details Date Type Department Care Team (Late st Contact Info) Description 06/14/2024 Telephone Centralized Clinical Pharmacy Services, Estefania Chicas [address] [place] [address] [place] [address] Deb Camara MD 226 [facility] James [place] [address] Referral ([facility] Pain Management ) Allergies Active Allergy Reactions [...] mRNA, LNP-s, No Pre serve, 2-Dose Series (BrandShield) 02/02/2021,06/14/2020,05/24/2020 COVID-19, LNP-s, No Preserve , Ellis-sucrose, [...] Notes * Telephone Encounter - Sumaya Arnold [facility] - 06/14/2024 1:43 PM EDT Referral reviewed and is appropriate. Please schedule. Initial appt length: 60 min Appointment type indicated: In Person or video (patient preference) Preferred Clinic for Appointment: closest available [facility] clinic Patient referred to [facility] clinic for Pain Management Regimen [...] 1:43 PM * Telephone Encounter - Courtney Elkins, sharemilker - 06/14/2024 1:41 PM EDT Comments Pharmacist Medication Therapy Management: Minimum frequency patient should be seen in person for medication management: as appropriate per clinical condition and patient status By my signature, I understand that my patient Delvis Munoz will have his medication therapy managedby the [facility] Medication Therapy Disease Management Clinic ([facility]) per established policies, procedures, and protocols. I also certify that this referral may serve as an initiation of service for the management of drug therapy in the above noted patient. [facility] providers will be responsible for scheduling patient visits, obtaining appropriate laboratory studies, and adjusting medication management therapy per patient's need, in addition to those roles spelled out in the clinic policy, procedures, and drug management protocols. I understand that the service provided by the [facility] Clinic is voluntary and have informed patient that they can refuse the service at their discretion. I am aware that the [facility] will provide me with a copy of the patient encounter via my [employer] In[employer]olution. I authorize the [facility] Clinic to carry out these activities on my behalf. I consider this program to be a necessary part of the patient's medical care. Deb Camara MD Order Specific Questions Referral Priority Within 10 days (routine) Where should this appointment be scheduled? [facility] Referring Provider Role: Primary Care Reason [...] 06/28/2024 1:00 PM EDT Office Visit Neurology [facility] [place] [address] [facility] [address] [place] [address] Meme Perez MD [address] [facility] [place] [address] 06/28/2024 2:00 PM EDT Office Visit Nephrology, [facility] [address] [facility] [place] [address] Kerri Garcia MD 200 [facility] [place] [address] 07/24/2024 1:00 PM EDT Office Visit [facility] [address] [place] [phone] Deb Camara MD 226 [place] [address] 07/31/2024 11:40 AM EDT Office Visit Nephrology, [facility] [address] [place] [address] Kerri Garcia MD 200 [facility] [place] [address] 08/21/2024 11:00 AM EDT Office Visit Cardiology, [facility] [address] [place] [address] Sandra Laura CRNP 132 [facility] [place] [address] 10/02/2024 10:40 AM EDT Office Visit [facility] Jozef Carrero [address] [place] [address] Deb Camara MD 226 [facility] [address] 11/12/2024 11:20 AM EDT Office Visit Hepatology, [facility] [address] [place] [address] Kaity Comer DO [address] [place] [address] 11/23/2024 1:00 PM EDT Telemedicine [facility] Abarca [address] [facility] [place] [address] Jackson Munoz MD [address] [facility] [place] [address] Scheduled Procedures Name Priority Associated Diagnoses Date/Ti [...] Additional history exists CKD PHOS USE SMARTSET 66532 04/19/202503/29, 04/15/2024, 10/07/2022, Additional history exists B-12 05/10/2025 05/10/2024, 10/2023, 01/04/2023, Additional history exists CKD HGB USE SMARTSET 33574 05/10/202505/10, 05/10/2024, 04/24/2024, Additional history exists DTap/Tdap [...] this encounter Medical Devices Implanted Type Area Memory Care Program Director Device Identifier Shelf Expiration Date Model / Serial / Lot Lens 19.0 Cz70bd - [id number] - [id number] Implanted:Qty: 1 on 08/09/2016 by Madi Frederick MD at OR [facility] Right: Eye KIMMIE : SURGICAL 2018 [id number] 0 / [id number] / Hemostatic Clip Res 235cm - [id number] Implanted:Qty: 1 on 05/09/[address] MD at [facility]OSCOPY [facility] N/A: Stomach [facility] : ENDOSCOPY 11/15/2025 [id number] / / documented as of this encounter Visit Diagnoses Diagnosis Chronic pain syndrome- Primary MEDICATION USE AGREEMENT documented in this encounter Advance Directives * Full Code (Latest Code Status on File) Date Activated Date Inactivated Comments 08/09/2016 2:37 PM 08/09/2016 7:17 PM This order r eflects the patients wishes and were consensually agreed upon. Care Teams Legal Department Manager Relationship Specialty Start Date End Date Deb Camara MD 226 [facility] [place] [address] PCP - General Internal Medicine 05/09/24 documented as of this encounter
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
--- OUTSIDE RECORDS SUMMARY | 2024-07-26 00:44 | External Medical Summary ---
Author Name Unknown Address Unknown Organization K01:LABORATORY [facility] - [address] [place] [address] Laboratory Report Ordering Provider Test Date Status CHARLOTTE WHITT 06/18/2024 12:07:43 Final Cutoff Concentrations:
Drug Level
Amphetamines 500 ng/mL
Benzodiazepines 100 ng/mL
Cannabinoids 50 ng/mL
Cocaine Metabolite 150 ng/mL
Fentanyl 1 ng/mL
Hydrocodone / Hydromorphone � 300 ng/mL
Methadone Metabolite 100 ng/mL
Morphine / Codeine 300 ng/mL
Oxycodone / Oxymorphone 100 ng/mL

Screening results are presumptive and can only be used for medical purposes. Positive screening results are reflexed to confirmatory testing. Observation Date Value Abnormality Reference (Units ) Status Amphetamines, Urine screen 06/18/2024 12:07:43 Negative Negative Final Benzodiazepines, Urine screen 06/18/2024 12:07:43 Negative Negative Final Cannabinoids, Urine screen 06/18/2024 12:07:43 Negative Negative Final Cocaine Metabolite, Urine screen 06/18/2024 12:07:43 Negative Negative Final fentaNYL [Presence] in Urine by Screen method 06/18/2024 12:07:43 Negative Negative Final HYDROcodone [Presence] in Urine by Screen method 06/18/2024 12:07:43 Negative Negative Final 5-Oxjeyubvul-1,5-Dimeth yl-3,3-Diphenylpyrrolid ine (EDDP) [Presence] in Urine 06/18/2024 12:07:43 Negative Negative Final Opiates, Urine screen 06/18/2024 12:07:43 Negative Negative Final oxyCODONE [Presence] in Urine by Screen method 06/18/2024 12:07:43 Positive Abnormal Negative Final Performing Location LABORATORY [facility] - [address] [place] [address]
--- OUTSIDE RECORDS SUMMARY | 2024-07-26 00:44 | External Medical Summary | Summary of Care ---
Author Name Unknown Organization [facility] Address [address] [facility] [address] Phone [phone] Care Team Providers Care Contact Lens Inspector Name Role Phone Deb Camara MD Primary Care Provider [phone] Reason for Visit * Reason Onset Date Comments Medication Refill 06/13/2024 Encounter Details Date Type Department Care Team (Late st Contact Info) Description 06/13/2024 [facility] [address] [address] Deb Camara MD [address] [facility] [place] [phone] Other closed fracture of thoracic vertebra, unspecified [...] Encounter - Deb Camara MD - 06/14/2024 11:22 AM EDTSigned Prescriptions: Disp Refills oxyCODONE HCl 10 MG Oral Tablet (Roxicodon*120 Ta*0 Sig: Take 1 Tablet by mouth in the morning and 1 Tablet at noon and 1 Tablet in the evening and 1 Tablet before bedtime. Authorizing Provider: DEB CAMARA * Telephone Encounter - Fany Mayes [facility] - 06/14/2024 11:20 AM EDT Pending Prescriptions: Disp Refills oxyCODONE HCl 10 MG Oral Tablet (Roxicodon*120 Ta*0 Sig: Take 1 Tablet by mouth in the morning and 1 Tablet at noon and 1 Tablet in the evening and 1 Tablet before bedtime. * Telephone Encounter - Fany Mayes [facility] - 06/14/2024 11:17 AM EDT I have reviewed the patient’s controlled substance dispensing history in the Prescription Drug Monitoring Program in compliance with the [facility] regulations before prescribing a controlled substance. PDMP checked on 06/14/2024. Pending Prescriptions: Disp Refills oxyCODONE HCl 10 MG Oral Tablet (Roxicodo*120 Ta*0 Sig: Take 1 Tablet by mouth in the morning and 1 Tablet at noon and 1 Tablet in the evening and 1 Tablet before bedtime. Last Visit: 02/27/2024 (in office), 03/15/2024 (telemedicine) Next Visit: Visit date not found Date medication was last filled: 05/17/24 Date medication is due for refill: 06/15/24 Pharmacy: [id number] [address] [place] [address] Is this request for a controlled substance? [...] Results Review. Please approve if appropriate. Thank you, Fany Mayes, PharmD Clinical Pharmacist [facility] ([facility]) 06/14/24 11:17 AM [phone] documented in this encounter Plan of Treatment Upcoming Encounters Date Type Department Care Team (Late st Contact Info) Description 06/28/2024 1:00 PM EDT Office Visit Neurology [facility] [address] [facility] [address] [place] [address] Meme Perez MD [address] [facility] [place] [address] 06/28/2024 2:00 PM EDT Office Visit Nephrology, [facility] [address] [facility] [place] [address] Kerri Garcia MD [address] [facility] [place] [address] 07/24/2024 1:00 PM EDT Office Visit [facility] Jozef Carrero [address] [place] [phone] Deb Camara MD [address] [place] [address] 07/31/2024 11:40 AM EDT Office Visit Nephrology, [place] [address] [facility] [place] [address] Kerri Garcia MD [address] [facility] [place] [address] 08/21/2024 11:00 AM EDT Office Visit Cardiology, [facility] [address] [place] [address] Sandra Laura CRNP [address] [place] [address] 10/02/2024 10:40 AM EDT [facility] [address] [place] [phone] Deb Camara MD 226 [place] [address] 11/12/2024 11:20 AM EDT Office Visit Hepatology, [facility] [address] [place] [phone] Kaity Comer DO [address] [place] [address] 11/23/2024 1:00 PM EDT Telemedicine [facility] [address] [facility] [place] [address] Jackson Munoz MD [address] [facility] [place] [address] Scheduled Procedures Name Priority Associated Diagnoses Date/Ti [...] Additional history exists CKD PHOS USE SMARTSET 39419 04/19/202503/29, 04/15/2024, 10/07/2022, Additional history exists B-12 05/10/2025 05/10/2024, 10/2023, 01/04/2023, Additional history exists CKD HGB USE SMARTSET 41389 05/10/202505/10, 05/10/2024, 04/24/2024, Additional history exists DTap/Tdap [...] this encounter Medical Devices Implanted Type Area Fat Purification Worker Device Identifier Shelf Expiration Date Model / Serial / Lot Lens 19.0 Cz70bd - [id number] - [id number] Implanted:Qty: 1 on 08/09/2016 by Madi Frederick MD at OR [facility] Right: Eye KIMMIE : SURGICAL 2018 [id number] 0 / [id number] / Hemostatic Clip Res 235cm - [id number] Implanted:Qty: 1 on 05/09/[address] MD at ENDOSCOPY [facility] N/A: Stomach [employer] : ENDOSCOPY 11/15/2025 [id number] / / documented as of this encounter [...] and were consensually agreed upon. Care Teams Contact Lens Inspector Relationship Specialty Start Date End Date Deb Camara MD [address] [place] [address] PCP - General Internal Medicine 05/09/24 documented as of this encounter
--- OUTSIDE RECORDS SUMMARY | 2024-07-26 00:45 | External Medical Summary | Summary of Care ---
Author Name Unknown Organization [facility] Address [address] [place] [address] Phone [phone] Care Team Providers Care Hot Metal Crane Operator Name Role Phone Deb Camara MD Primary Care Provider [phone] Reason for Visit * Reason Comments Outpatient Testing Encounter Details Date Type Department Care Team (Late st Contact Info) Description 05/29/2024 3:50 PM EST Laboratory Laboratory [facility] [address] [place] [phone] [facility] [address] [place] [address] Orthostatic hypotension Allergies Active Allergy Reactions Criticality Noted Date Comments Lisinopril 12/05/2023 dizziness Losartan 05/24/2023 Dizziness documented as of this encounter (statuses as of 05/30/2024) Medications Midodrine HCl 5 MG Oral Tablet [...] as of this encounter (statuses as of 05/30/2024) Active Problems Problem Noted Date Diagnosed Date [...] as of this encounter (statuses as of 05/30/2024) Resolved Problems Problem Noted Date Diagnosed Date [...] as of this encounter (statuses as of 05/30/2024) Immunizations Name Administration Dates Next Due COVID-19 mRNA, LNP-s, No Pre serve, 2-Dose Series ([employer]) 02/02/2021,06/14/2020,05/24/2020 COVID-19, LNP-s, No Preserve , Ellis-sucrose, [...] Care Team (Late st Contact Info) Description 06/05/2024 10:00 AM EDT Imaging [facility] 2nd Floor Cardiology, [address] [place] [phone] 06/05/2024 2:00 PM EDT [facility] [address] [place], [place] [phone] 06/28/2024 1:00 PM EDT Office Visit Neurology [facility] 200 [facility] [place] [address] Meme Perez MD 200 [facility] [place] [address] 07/03/2024 2:40 PM EDT Office Visit Family Practice, [place] [facility] [address] [place] [address] Jerzy Glez MD [address] [place] [phone] 07/24/2024 1:00 PM EDT Office Visit Family Practice, [place] [facility] [address] [facility] [address] Deb Camara MD [address] [place] [address] 07/31/2024 11:40 AM EDT Office Visit Nephrology, [facility] [address] [facility] [place] [address] Kerri Garcia MD 200 [facility] [place] [address] 08/21/2024 11:00 AM EDT Office Visit Cardiology, [facility] [address] [place] [address] Sandra Laura CRNP [address] [place] [address] 10/02/2024 10:40 AM EDT Office Visit Family Jose [place] [facility] [facility] [place] [address] Deb Camara MD [address] [place] [address] 11/12/2024 11:20 AM EDT Office Visit Hepatology, [facility] [address] [place] [address] Kaity Comer DO [address] [place] [address] 11/23/2024 1:00 PM EDT Telemedicine [facility] [place] [facility] [place] [address] Jackson Munoz MD [address] [facility] [place] [address] Pending Results Name Type Priority Associated Diagnoses Date /Time FTA-ABS Lab Routine Orthostatic hypotension 05/29/2024 4:03 PM EST Scheduled Procedures Name Priority Associated [...] Additional history exists CKD PHOS USE SMARTSET 22750 04/19/202503/29, 04/15/2024, 10/07/2022, Additional history exists B-12 05/10/2025 05/10/2024, 10/2023, 01/04/2023, Additional history exists CKD HGB USE SMARTSET 34899 05/10/202505/10, 05/10/2024, 04/24/2024, Additional history exists DTap/Tdap [...] this encounter Medical Devices Implanted Type Area Furnace Attendant Device Identifier Shelf Expiration Date Model / Serial / Lot Lens 19.0 Cz70bd - [id number] - [id number] Implanted:Qty: 1 on 08/09/2016 by Madi Frederick MD at OR [facility] Right: Eye KIMMIE : SURGICAL 2018 [id number] 0 / [id number] / Hemostatic Clip Res 235cm - [id number] Implanted:Qty: 1 on 05/09/[address] MD at ENDOSCOPY [facility] N/A: Stomach [employer] : ENDOSCOPY 11/15/2025 [id number] / / documented as of this encounter Visit Diagnoses Diagnosis Orthostatic hypotension documented in this encounter Advance Directives * Full Code (Latest Code Status on File) Date Activated Date Inactivated Comments 08/09/2016 2:37 PM 08/09/2016 7:17 PM This order r eflects the patients wishes and were consensually agreed upon. Care Teams Hot Metal Crane Operator Relationship Specialty Start Date End Date Deb Camara MD [address] [facility] [place] [address] PCP - General Internal Medicine 05/09/24 documented as of this encounter
--- OUTSIDE RECORDS SUMMARY | 2024-07-26 00:45 | External Medical Summary | Summary of Care ---
Author Name Unknown Organization [facility] Address [address] [place] [address] Phone [phone] Care Team Providers Care Claim Clerk Name Role Phone Deb Camara MD Primary Care Provider [phone] Reason for Visit * Reason Onset Date Comments Appointment 06/01/2024 Encounter Details Date Type Department Care Team (Late st Contact Info) Description 06/01/2024 Telephone [facility]rology[facility] [address] [place] [address] GarciaKerri choi MD 200 [facility] [place] [address] Appointment Allergies Active Allergy Reactions Criticality Noted Date Comments Lisinopril 12/05/2023 dizziness Losartan 05/24/2023 Dizziness documented as of this encounter (statuses as of 06/01/2024) Medications Midodrine HCl 5 MG Oral Tablet [...] as of this encounter (statuses as of 06/01/2024) Active Problems Problem Noted Date Diagnosed Date [...] as of this encounter (statuses as of 06/01/2024) Resolved Problems Problem Noted Date Diagnosed Date [...] as of this encounter (statuses as of 06/01/2024) Immunizations Name Administration Dates Next Due COVID-19 mRNA, LNP-s, No Pre serve, 2-Dose Series ([employer]) 02/02/2021,06/14/2020,05/24/2020 COVID-19, LNP-s, No Preserve , Ellis-sucrose, [...] Telephone Encounter - Bee Parikh RN - 06/01/2024 9:12 AM EST ----- Message from Kerri Garcia MD sent at 05/29/2024 2:44 PM EST ----- he needs to see me. Hoping something will open up and we can get him in ----- Message ----- From: Rossi Farris OSA Sent: 05/29/2024 1:26 PM EST To: Kerri Garcia MD; ANDREINA Falk You do not have any openings as of now, could he see Luz Marina? ----- Message ----- From: Kerri Garcia MD Sent: 05/29/2024 1:13 PM EST To: ANDREINA Falk Can you pls bring him back in 4-6 wks not 3 mos ; high risk documented in this encounter Plan of Treatment Upcoming Encounters Date Type Department Care Team (Late st Contact Info) Description 06/04/2024 7:50 AM EDT Laboratory [facility] [place] [facility] 226 [place] [phone] [facility] 226 [place] [address] 06/05/2024 10:00 AM EDT Imaging [facility] 2nd Floor Cardiology, [address] [place] [address] 06/05/2024 2:00 PM EDT Imaging [facility] 2nd Floor Cardiology, [address] [place] [address] 06/28/2024 1:00 PM EDT Office Visit Neurology [facility] [place] 200 [facility] [place] [address] Meme Perez MD [address] [place] [address] 07/03/2024 2:40 PM EDT Office Visit [facility] [place] 226 [place] [phone] Jerzy Glez MD [address] [place] [address] 07/24/2024 1:00 PM EDT [facility] [address] [place] [phone] Deb Camara MD [address] [place] [address] 07/31/2024 11:40 AM EDT Office Visit Nephrology, [facility] 200 [facility] [place] [address] GarciaKerri choi MD 200 [facility] [place] [address] 08/21/2024 11:00 AM EDT Office Visit Cardiology, [facility] [address] [facility] [address] Sandra Laura CRNP [address] [place] [address] 10/02/2024 10:40 AM EDT [facility] [address] [place] [phone] Deb Camara MD [address] [place] [address] 11/12/2024 11:20 AM EDT Office Visit Hepatology, [facility] [address] [place] [address] Kaity Comer DO [address] [place] [address] 11/23/2024 1:00 PM EDT Telemedicine [facility] [address] [facility] [place] [address] Jackson Munoz MD [address] [facility] [place] [address] Scheduled Procedures Name Priority Associated Diagnoses Date/Ti [...] Additional history exists CKD PHOS USE SMARTSET 67762 04/19/202503/29, 04/15/2024, 10/07/2022, Additional history exists B-12 05/10/2025 05/10/2024, 10/2023, 01/04/2023, Additional history exists CKD HGB USE SMARTSET 51479 05/10/202505/10, 05/10/2024, 04/24/2024, Additional history exists DTap/Tdap [...] this encounter Medical Devices Implanted Type Area Paper Coating Machine Operator Device Identifier Shelf Expiration Date Model / Serial / Lot Lens 19.0 Cz70bd - [id number] - [id number] Implanted:Qty: 1 on 08/09/2016 by Madi Frederick MD at OR [facility] Right: Eye KIMMIE : SURGICAL 2018 [id number] 0 / [id number] / Hemostatic Clip Res 235cm - [id number] Implanted:Qty: 1 on 05/09/[address] MD at ENDOSCOPY [facility] N/A: Stomach [employer] : ENDOSCOPY 11/15/2025 [id number] / / documented as of this encounter Advance Directives * Full Code (Latest Code Status on File) Date Activated Date Inactivated Comments 08/09/2016 2:37 PM 08/09/2016 7:17 PM This order r eflects the patients wishes and were consensually agreed upon. Care Teams Claim Clerk Relationship Specialty Start Date End Date Deb Camara MD [address] [place] [address] PCP - General Internal Medicine 05/09/24 documented as of this encounter
--- OUTSIDE RECORDS SUMMARY | 2024-07-26 00:45 | External Medical Summary | Summary of Care ---
Author Name Unknown Organization [facility] Address [address] [place] [address] Phone [phone] Care Team Providers Care Test Puller Name Role Phone Deb Camara MD Primary Care Provider [phone] Encounter Details Date Type Department Care Team (Late st Contact Info) Description 05/25/2024 1:00 PM [facility] Radiation Oncology [facility] [address] [facility] [place] [address] Jackson Munoz MD [address] [facility] [place] [address] Prostate cancer (HCC)* Allergies Active Allergy Reactions Criticality Noted Date Comments Lisinopril 12/05/2023 dizziness Losartan 05/24/2023 Dizziness documented as of this encounter (statuses as of 05/25/2024) Medications Midodrine HCl 5 MG Oral Tablet (Proamatine) Take 1 Tablet by mouth in the morning and 1 Tablet at noon and 1 Tablet in the evening. 270 Tablet 3 Active Additional Information Patient taking differently:5 mg OralBID (.AM/PM), Reported on 05/24/2024 Tylenol PM Extra Strength 500-25 MG Oral [...] bedtime. 120 Tablet 5 Active Midodrine HCl 2.5 MG Oral Tablet (Proamatine) Take 1 Tablet by mouth in the morning and 1 Tablet at noon and 1 Tablet before bedtime. 5 Active documented as of this encounter (statuses as of 05/25/2024) Active Problems Problem Noted Date Diagnosed Date [...] as of this encounter (statuses as of 05/25/2024) Resolved Problems Problem Noted Date Diagnosed Date [...] as of this encounter (statuses as of 05/25/2024) Immunizations Name Administration Dates Next Due COVID-19 mRNA, LNP-s, No Pre serve, 2-Dose Series (Mpayy) 02/02/2021,06/14/2020,05/24/2020 COVID-19, LNP-s, No Preserve , Ellis-sucrose, [...] No 09/22/2023 Does the household have a [facility]? (Household - for [...] of this encounter Progress Notes * Jackson Munoz MD - 05/25/2024 1:00 PM EST As per patient preference, connection with the patient via audio only occurred. The patient was informed this was a phone call only visit and was identified by name and date of . The patient agreed to participate. Visit disposition: Routine follow-up Total call duration was 10 minutes. RADIATION ONCOLOGY FOLLOW UP VISIT DOS: 05/25/24 DIAGNOSIS: AJCC 8th ed. Stage IIA (cT2c N0 M0), [place] score 3+3=6 (grade group 1), pre-treatment PSA 5.88 ng/ml REGION TREATED: Prostate. 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 He completed a course of moderately hypofractionated intensity modulated radiation therapy on 02/21/2023. 05/25/2023: He feels well overall today. His urinary function is back to baseline. Recent PSA is down to 0.45ng/mL. He is not using any Flomax. The patient denies hematuria, incontinence, urgency, dysuria, incomplete voiding, weak stream, blood in stool, loose stools, rectal pain. He had a recent colonoscopy. He reports his most bothersome symptoms is arthritic back and hip pain which he is seeing PT for. 11/24/2023: His PSA is 0.16 ng/mL. He is doing well overall and his biggest issue remains arthritic back and hip pain. He recently had a steroid injection which provides temporary relief. He reports his urinary function is back to baseline. He denies hematuria, incontinence, urgency, dysuria, incomplete voiding, weak stream. He denies blood in stool, rectal pain. 05/25/2024: PSA from 05/10/2024 was 0.06 ng/mL. He is doing okay from a urinary standpoint. He has a weaker stream now and occasional sensation of incomplete emptying. He denies dysuria or hematuria. Frequency is not an issue, he reports nocturia x0- 1. Denies diarrhea or blood in the stool. Recently he has hadmore issues with orthostatic hypotension. His diuretics have been discontinued, and he is on midodrine. Despite this, his sitting systolic blood pressure has been in the 150s but drops to the 70s when he stands. 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 PHYSICAL EXAMINATION: Limited for telephonic appointment. General: No acute distress. Respiratory: Breathing comfortably. Neurologic: Alert, orientated, affect pleasant and cooperative. Though process coherent. Speech fluent. 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 He is now 15 status post completion of treatment. He was seen today for a scheduled follow-up. He is doing well from a prostate cancer standpoint, without clinical or biochemical evidence of disease. His orthostatic hypotension now is a bigger problem then his weak urinary stream and occasional incomplete emptying. We will hold off on Flomax for now. If his blood pressure becomes more stable in the future, we can discuss trial of Flomax then. Mr. Munoz is noted in assessment to have back pain 09/04, chronic. The patient's individualized treatment will therefore consist of: Opioid and non-opioid analgesics and continued follow-up with interventional pain specialists. I have asked Mr. Munoz to return for follow up and PSA in in 6 months. This may be a video visit due to his long drive. I asked him to contact me if he has any questions or concerns prior to his returnvisit. I spent a total of 20-29 minutes (exact time 20 mins) on the date of service in preparation, delivery, and documentation of the care provided to Delvis Munoz excluding any time spent in the performance of separately billed services. Jackson Munoz MD, PharmD Radiation Oncology [facility], [facility] documented in this encounter Plan of Treatment Upcoming Encounters Date Type Department Care Team (Late st Contact Info) Description 05/28/2024 11:40 AM EST Office Visit Nephrology, [facility] [address] [facility] [place] [address] Kerri Garcia MD [address] [facility] [place] [address] 05/29/2024 3:00 PM EST NeuroDiagnostic Study Neurophysiology [facility] [address] [facility] [place] [address] Meme Perez MD [address] [facility] [place] [address] 06/05/2024 10:00 AM EDT Imaging [facility] 2nd Floor Cardiology, [place] [address] [place] [phone] 06/05/2024 2:00 PM EDT Imaging [facility] 2nd Floor Cardiology, [place] [address] [place] [address] 06/28/2024 1:00 PM EDT Office Visit Neurology [facility] [address] [place] [address] Meme Perez MD [address] [facility] [place] [address] 07/03/2024 2:40 PM EDT [facility] [address] [facility] [place] [phone] Jerzy Glez MD [address] [facility] [place] [address] 07/24/2024 1:00 PM EDT [facility] [place] [address] [place] [phone] Deb Camara MD [address] [place] [address] 07/31/2024 11:40 AM EDT Office Visit Nephrology, [facility] [address] [facility] [place] [address] Kerri Garcia MD [address] [facility] [place] [address] 08/21/2024 11:00 AM EDT Office Visit Cardiology, [facility] [address] [facility] [place] [address] Sandra Laura CRNP [address] [facility] [place] [address] 10/02/2024 10:40 AM EDT [facility] [place] [place] [address] [place] [phone] Deb Camara MD [address] [place] [address] 11/12/2024 11:20 AM EDT Office Visit Hepatology, [facility] [address] [facility] [address] Kaity Comer DO [address] [place] [address] 11/23/2024 1:00 PM EDT Telemedicine [facility] [address] [place] [address] Jackson Munoz MD [address] [facility] [place] [address] Scheduled Orders Name Type Priority Associated Diagnoses Orde r Schedule PSA Lab Routine Prostate cancer (HCC) Expected: 11/22/2024, Expires: Scheduled Procedures Name Priority Associated Diagnoses Date/Ti [...] Additional history exists CKD PHOS USE SMARTSET 35921 04/19/202503/29, 04/15/2024, 10/07/2022, Additional history exists B-12 05/10/2025 05/10/2024, 10/2023, 01/04/2023, Additional history exists CKD HGB USE SMARTSET 87391 05/10/202505/10, 05/10/2024, 04/24/2024, Additional history exists DTap/Tdap [...] encounter Medical Devices Implanted Type Area Director Process Improvement Device Identifier Shelf Expiration Date Model / Serial / Lot Lens 19.0 [id number] - [id number] - [id number] Implanted:Qty: 1 on 08/09/2016 by Madi Frederick MD at OR [facility] Right: Eye [employer] : SURGICAL 2018 [id number] / [id number] / Hemostatic Clip Res 235cm - [id number] Implanted:Qty: 1 on 05/09/[address] Davis MD at ENDOSCOPY [facility] N/A: Stomach [employer] : ENDOSCOPY 11/15/2025 [id number] / / documented as of this encounter Visit Diagnoses Diagnosis Prostate cancer (HCC)- Primary Malignant neoplasm of prostate documented in this encounter Advance Directives * Full Code (Latest Code Status on File) Date Activated Date Inactivated Comments 08/09/2016 2:37 PM 08/09/2016 7:17 PM This order r eflects the patients wishes and were consensually agreed upon. Care Teams Test Puller Relationship Specialty Start Date End Date Deb Camara MD [address] [place] [address] PCP - General Internal Medicine 05/09/24 documented as of this encounter
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
--- OUTSIDE RECORDS SUMMARY | 2024-07-26 00:45 | External Medical Summary | Summary of Care ---
Author Name Unknown Organization [facility] Address [address] [facility] [address] Phone [phone] Care Team Providers Care Studio Coordinator Name Role Phone Deb Camara MD Primary Care Provider [phone] Reason for Visit * Reason Onset Date Comments Appointment 06/01/2024 Encounter Details Date Type Department Care Team (Late st Contact Info) Description 06/01/2024 Telephone Nephrology, [facility] [address] [place], [place] [id number] Appointments, Patient Appointment Allergies Active Allergy Reactions Criticality Noted [...] and 1 Tablet before bedtime. 120 Tablet Active documented as of this encounter (statuses [...] mRNA, LNP-s, No Pre serve, 2-Dose Series (Mapittrackit) 02/02/2021,06/14/2020,05/24/2020 COVID-19, LNP-s, No Preserve , Ellis-sucrose, [...] No 09/22/2023 Does the household have a [facility] [place] [facility] source of income? (Household - for [...] Encounter - Bee Parikh RN - 06/01/2024 9:24 AM EST Pt is scheduled to be seen in July. Is on a list to be seen sooner in June and project scheduler is aware. * Telephone Encounter - Bee Parikh RN - 06/01/2024 9:24 AM EST ----- Message from Kerri Garcia [...] Info) Description 06/04/2024 7:50 AM EDT [address] [place] [phone] Kayce [place] [address] [place] [address] 06/05/2024 10:00 AM EDT Imaging [facility]nd [facility] [address] [facility] [place] [address] 06/05/2024 2:00 PM EDT Imaging [facility] 2nd Floor Cardiology, [place] [address] [place] [address] 06/28/2024 1:00 PM EDT Office Visit Neurology [facility] [place] [address] [place] [address] Meme Perez MD [address] [facility] [place] [address] 07/03/2024 2:40 PM EDT Office Visit Family Practice, [place] [address] [place] [address] Jerzy Glez MD [address] [place] [address] 07/24/2024 1:00 PM EDT Office Visit [facility], Brian Carrero [address] [place] [address] Deb Camara MD [address] [place] [address] 07/31/2024 11:40 AM EDT Office Visit Nephrology, [facility] [address] [place] [address] Kerri Garcia MD [address] [place] [address] 08/21/2024 11:00 AM EDT Office Visit Cardiology, [facility] [address] [place] [address] Sandra Laura CRNP [address] [place] [address] 10/02/2024 10:40 AM EDT Office Visit [facility], Brian Carrero [address] [place] [address] Deb Camara MD [address] [place] [address] 11/12/2024 11:20 AM EDT Office Visit Hepatology, [facility] [address] [place] [address] Kaity Comer DO [address] [place] [address] 11/23/2024 1:00 PM EDT Telemedicine [facility] [place] [address] [place] [address] Jackson Munoz MD [address] [place] [address] Scheduled Procedures Name Priority Associated Diagnoses Date/Ti [...] Additional history exists CKD PHOS USE SMARTSET 09479 04/19/202503/29, 04/15/2024, 10/07/2022, Additional history exists B-12 05/10/2025 05/10/2024, 1010/2023, 01/04/2023, Additional history exists CKD HGB USE SMARTSET 49023 05/10/202505/10, 05/10/2024, 04/24/2024, Additional history exists DTap/Tdap [...] this encounter Medical Devices Implanted Type Area Mechanic Industrial Truck Device Identifier Shelf Expiration Date Model / Serial / Lot Lens 19.0 Cz70bd - [id number] - [id number] Implanted:Qty: 1 on 08/09/2016 by Madi Frederick MD at [facility] Right: Eye [employer] : SURGICAL 2018 [id number] / [id number] / Hemostatic Clip Res 235cm - [id number] Implanted:Qty: 1 on 05/09/[address] MD at ENDOSCOPY [facility] N/A: Stomach [facility] : ENDOSCOPY 11/15/2025 [id number] / / documented as of this encounter Advance Directives * Full Code (Latest Code Status on File) Date Activated Date Inactivated Comments 08/09/2016 2:37 PM 08/09/2016 7:17 PM This order r eflects the patients wishes and were consensually agreed upon. Care Teams Studio Coordinator Relationship Specialty Start Date End Date Deb Camara MD [address] [place] [address] PCP - General Internal Medicine 05/09/24 documented as of this encounter
--- OUTSIDE RECORDS SUMMARY | 2024-07-26 00:45 | External Medical Summary ---
Author Name Unknown Address Unknown Organization K01:[facility] [place] [address] [place] [address] Laboratory Report Ordering Provider Test Date Status ANN MARIE FIELDS 06/04/2024 07:58:44 Final Observation Date Value Abnormality Reference (Units ) Status ACTH 06/04/2024 07:58:44 39.7 7.2-63.3 ( pg/mL) Final Performing Location LABORATORY [facility] - [address] [place] [address]
--- OUTSIDE RECORDS SUMMARY | 2024-07-26 00:45 | External Medical Summary ---
Author Name Unknown Address Unknown Organization : Laboratory Report Ordering Provider Test Date Status SHARI FRASERER 05/29/2024 16:03:49 Final Observation Date Value Abnormality Reference (Units ) Status FTA - ABS 05/29/2024 16:03:49 Nonreactive Nonreact gretchen Final The FTA-ABS is a treponemal assay that is intended to
be used with other tests (e.g., RPR) as part of a
diagnostic algorithm for syphilis. The preferred
treponemal-specific tests for confirmation of a
reactive RPR are Treponema pallidum Particle
Agglutination (TP-PA) or other treponemal antibody
assays. From Sexually Transmitted Infections Treatment
Guidelines,2020 MMWR Recomm Rep 2020;70 (No. RR-4):
pg.39.

Test Performed at:
[facility]
[address] [facility]
[place], [place]
Eliceo Mckenzie M.D., Ph.D.,Director of Laboratories Performing Location
--- OUTSIDE RECORDS SUMMARY | 2024-07-26 00:45 | External Medical Summary | Summary of Care ---
Author Name Unknown Organization [facility] Address [address] [place] [address] Phone [phone] Care Team Providers Care Medical Coding Auditor Name Role Phone Deb Camara MD Primary Care Provider [phone] Reason for Visit * Reason Comments Hospital Follow-Up Pt here today for ho spital discharge follow up Encounter Details Date Type Department Care Team (Late st Contact Info) Description 05/24/2024 11:20 AM EST [facility] [address] [place] [address] Deb Camara MD [address] [place] [phone] Orthostatic hypotension*; Bronchitis, complicated; Autonomic neuropathy; HTN, goal below 130/80; Cirrhosis of liver with ascites, unspecified hepatic cirrhosis type (HCC); Chronic heart failure with preserved ejection fraction (HCC); Protein-calorie malnutrition, unspecified severity (HCC); Stage 3b chronic kidney disease (HCC) Allergies Active Allergy Reactions Criticality Noted Date Comments Lisinopril 12/05/2023 dizziness Losartan 05/24/2023 Dizziness documented as of this encounter (statuses as of 05/24/2024) Medications Midodrine HCl 5 MG Oral Tablet [...] and 1 Tablet before bedtime. 5 Active traZODone HCl 100 MG Oral Tablet (Desyrel)Indica tions:Persisten t insomnia Take 1 Tablet by mouth at bedtime. 90 Tablet 1 4 025 Discontin ued(Patie nt preferenc e/discont inuation) documented as of this encounter (statuses as of 05/24/2024) Active Problems Problem Noted Date Diagnosed Date [...] as of this encounter (statuses as of 05/24/2024) Resolved Problems Problem Noted Date Diagnosed Date [...] as of this encounter (statuses as of 05/24/2024) Immunizations Name Administration Dates Next Due COVID-19 [...] Past Smokeless Tobacco: Never Tobacco Cessation:Counseling Given: No [...] Sign Reading Time Taken Comments Blood Pressure 145/55 05/24/2024 11:27 AM EST blood pressure done went standing was 84/45 Pulse 72 05/24/2024 11:27 AM EST Temperature 36.2 °C (97.2 °F) 05/24/2024 1 1:27 AM EST Respiratory Rate 16 05/24/2024 11:2 7 AM EST Oxygen Saturation 94% 05/24/2024 11: 27 AM EST Inhaled Oxygen Concentration - - Weight 87.5 kg (192 lb 14.4 oz) 05/24/2024 11:27 AM EST Height - - Body Mass Index 27.68 04/04/2024 11:14 AM EST documented in this encounter Progress Notes * Deb Camara MD - 05/24/2024 11:44 AM EST Subjective Delvis Munoz is a 73 year old male. Chief Complaint Patient presents with Hospital Follow-Up Pt here today for hospital discharge follow up HPI: Here for hospital f/u Admission : May 17 Discharge May 19 Dx : dizziness, orthostatic hypotension Text in this note was generated using an ambient documentation service. I discussed the use of a device to record and summarize our discussion today. All persons present during the encounter consented to its use History of Present Illness The patient, with a history of liver cirrhosis and orthostatic hypotension, presents with symptoms similar to a previous episode of pneumonia. The patient denies any recent falls but reports feeling "really, really sick" again. The patient's white blood cell count was mildly elevated, and he started feeling better after receiving antibiotics. The patient also reports inconsistent adherence to midodrine, a medication prescribed for orthostatic hypotension, due to forgetfulness. The patient has been seen by a neurologist for possible Parkinson-like symptoms. The patient is scheduled for further testing, including a MRI of the brain. The patient's reports noticing occasional hand tremors but denies any significant resting tremor. The patient also reports back pain, described as cramping. The patient has been given exercises by a physical therapist to perform at home, focusing on upper and lower body strength. The patient's caregiver reports difficulty in ensuring the patient performs these exercises consistently. The patient's diet is reported to be balanced, with a focus on protein . The patient's caregiver reports that the patient has a good appetite and is consuming a sufficient amount of fluids. The patient has a history of vitamin D deficiency but recent levels have been within the normal range. PMH: Patient Active Problem List Diagnosis Other [...] 1 Tablet before bedtime. 120 Tablet 0 Midodrine HCl 2.5 MG Oral Tablet (Proamatine) Take 1 Tablet by mouth in the morning and 1 Tablet atnoon and 1 Tablet before bedtime. No current facility-administered medications for this visit. [...] MD at ENDOSCOPY [facility] COLONOSCOPY, DIAGNOSTIC (RECTUM) 01/30/2019 tubulovillous adenomas polyp, diverticulosis, repeat 3 yrs/COLONOSCOPY FLEXIBLE PROXIMAL DIAGNOSTICperformed by Lane Davis MD at ENDOSCOPY [facility] COLONOSCOPY, DIAGNOSTIC (RECTUM) N/A 05/09/2023 diverticulosis/multiple non-bleeding colonic angiodysplastic lesions/biopsies show adenomatous polyp/recall 1 year/COLONOSCOPY FLEXIBLE PROXIMAL DIAGNOSTIC performed by Lane Davis MD at ENDOSCOPY [facility] EGD, FLEXIBLE, DIAGNOSTIC 07/07/2020 GE junction possibly small varices, variant mucosa in the antrum, letitia-ampullary diverticulum /biopsy intestinal metaplasia / recall 1 year / ESOPHAGOGASTRODUODENOSCOPY (EGD), FLEXIBLE, TRANSORAL, DIAGNOSTIC performed by Lane Davis MD at ENDOSCOPY [facility] EGD, FLEXIBLE, DIAGNOSTIC N/A 05/09/2023 intestinal metaplasia/recall 1 year/ESOPHAGOGASTRODUODENOSCOPY (EGD), FLEXIBLE, TRANSORAL, DIAGNOSTIC performed by Lane Davis MD at ENDOSCOPY [facility] EGD, W/ENDOSCOPIC US N/A 11/18/2021 abnormal echogenicity of liver/biopsies of liver show bridging fibrosis and focal nodule formation in background of minimal to mild steatosis/intrahepatocellular diastase resistant globues present/ESO PHAGOGASTRODUODENOSCOPY (EGD), FLEXIBLE, TRANSORAL, ENDOSCOPIC ULTRASOUND performed by Rodolfo Gonsalez MD at OR [facility] INJECT DX/THER SUBSTANCE INTERLAMINAR LUMBAR/SACRAL W IMAGE GUIDE 10/06/2022 INJECTION SPINE LUMBAR OR SACRAL performed by Wil Simon DO at OR [facility] INJECT DX/THER SUBSTANCE INTERLAMINAR LUMBAR/SACRAL W IMAGE [...] level: Not on file Occupational History Employer: [employer] Comment: [employer] 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 Eyes: Negative for visual disturbance. Respiratory: Negative for cough, chest tightness, shortness of breath and wheezing. Cardiovascular: Negative for chest pain, palpitations and leg swelling. Gastrointestinal: Negative for abdominal distention, abdominal pain, nausea and vomiting. Endocrine: Negative. Genitourinary: Negative for frequency and hematuria. Musculoskeletal: Positive for back pain. Neurological: Positive for dizziness, weakness (general, legs) and light- headedness. Negative for headaches. Psychiatric/Behavioral: Positive for dysphoric mood (mild depression). Negative for agitation and behavioral problems. The patient is not nervous/anxious. Objective BP 145/55 Comment: blood pressure done went standing was 84/45 | Pulse 72 | Temp 97.2 °F (36.2 °C) (Infrared ) | Resp 16 | Wt 192 lb 14.4 oz (87.5 kg) | SpO2 94% | BMI 27.68 kg/m² | BSA 2.08 m² Physical Exam Constitutional: General: He is not in acute distress. Appearance: Normal appearance. He is not ill-appearing, toxic-appearing or diaphoretic. HENT: Head: Normocephalic and atraumatic. Nose: Nose normal. Eyes: Extraocular Movements: Extraocular movements intact. Cardiovascular: Rate and Rhythm: Normal rate and regular rhythm. Pulses: Normal pulses. Heart sounds: Normal heart sounds. Pulmonary: Effort: Pulmonary effort is normal. No respiratory distress. Breath sounds: Normal breath sounds. No stridor. No wheezing, rhonchi or rales. Chest: Chest wall: No tenderness. Musculoskeletal: General: Tenderness (lower back) present. Right lower leg: No edema. Left lower leg: No edema. Neurological: General: No focal deficit present. Mental Status: He is alert and oriented to person, place, and time. Psychiatric: Behavior: Behavior normal. Comments: Mild depression ASSESSMENT/PLAN: Orthostatic hypotension (Primary) Bronchitis, complicated Autonomic neuropathy HTN, goal below 130/80 Cirrhosis of liver with ascites, unspecified hepatic cirrhosis type (HCC) Chronic heart failure with preserved ejection fraction (HCC) Protein-calorie malnutrition, unspecified severity (HCC) Stage 3b chronic kidney disease (HCC) Follow Up: Return in about 2 months (around 07/22/2024) for Clinic Visit. | For: Clinic Visit Assessment & Plan Orthostatic Hypotension with known HTN , CHF Likely multifactorial due to liver cirrhosis and possible Parkinson-like symptoms. Midodrine use inconsistent. -Continue Midodrine three times daily as tolerated. -Encourage consistent use of Midodrine. -Refer to neurologist for further evaluation of Parkinson-like symptoms. Liver Cirrhosis Low albumin contributing to orthostatic hypotension. -Continue current management. Possible Parkinsonism Undergoing evaluation by neurologist. -Follow up with neurologist for further testing and potential treatment. Muscle Mass Loss Contributing to tremors and weakness. -Encourage daily exercises as instructed by physical therapy. -Start multivitamin tablets for micronutrition. Protein Calorie Malnutrition Likely contributing to muscle mass loss. -Encourage balanced diet. -Start multivitamin tablets. Chronic Back Pain Likely due to posture and muscle mass loss. -Encourage daily exercises as instructed by physical therapy. General Health Maintenance -Encourage fluid intake of minimum 2 liters throughout the day. -Remove diabetes from medical problems due to consistent normal A1C levels. -Continue current management for kidney function. -Follow up in two months. Deb Camara MD documented in this encounter Nursing Notes * Tatiana Stiles LPN - 05/24/2024 11:21 AM EST Chief Complaint Patient presents with Hospital Follow-Up Pt here today for hospital discharge follow up documented in this encounter Plan of Treatment Upcoming Encounters Date Type Department Care Team (Late st Contact Info) Description 05/25/2024 1:00 PM EST Telemedicine [facility] [address] [place] [address] Jackson Munoz [facility] [address] [facility] [place] [address] 05/28/2024 11:40 AM EST Office Visit Nephrology, [facility] [address] [place] [address] Kerri Garcia MD [address] [place], [place] [address] 05/29/2024 3:00 PM EST NeuroDiagnostic Study Neurophysiology [facility] [address] [place], [place] [address] Meme Perez MD [address] [facility] [place], [place] [address] 06/05/2024 10:00 AM EDT Imaging [facility] 2nd Floor Cardiology, [place] [address] [place] [phone] 06/05/2024 2:00 PM EDT Imaging [facility] 2nd Floor Cardiology, [address] [place] [address] 06/28/2024 1:00 PM EDT Office Visit Neurology [facility] [address] [place], [place] [address] Meme Perez MD 200 [facility] [place], [place] [address] 07/03/2024 2:40 PM EDT [facility] [address] [facility] [place] [address] Jerzy Glez MD [address] [facility] [place] [address] 07/24/2024 1:00 PM EDT Office Visit [facility] Brian Philippe [address] [facility] [place] [address] Deb Camara MD [address] [facility] [place] [id number] 07/31/2024 11:40 AM EDT Office Visit Nephrology, [facility] [address] [place] [address] Kerri Garcia MD [address] [place] [address] 08/21/2024 11:00 AM EDT Office Visit Cardiology, [facility] [address] [facility] [place] [address] Sandra Laura CRNP [address] [place] [address] 10/02/2024 10:40 AM EDT Office Visit [facility] [address] [facility] [place] [phone] Deb Camaar MD [address] [place] [address] 11/12/2024 11:20 AM EDT Office Visit Hepatology, [facility] [address] [facility] [place] [address] Kaity Comer DO [address] [place] [address] Scheduled Procedures Name Priority Associated Diagnoses Date/Ti [...] Additional history exists CKD PHOS USE SMARTSET 14139 04/19/202503/29, 04/15/2024, 10/07/2022, Additional history exists B-12 05/10/2025 05/10/2024, 10/2023, 01/04/2023, Additional history exists CKD HGB USE SMARTSET 39921 05/10/202505/10, 05/10/2024, 04/24/2024, Additional history exists DTap/Tdap [...] this encounter Medical Devices Implanted Type Area Barrel Line Operator Device Identifier Shelf Expiration Date Model / Serial / Lot Lens 19.0 [id number] - [id number] - [id number] Implanted:Qty: 1 on 08/09/2016 by Madi Frederick MD at OR [facility] Right: Eye [employer] : SURGICAL 2018 [id number] / [id number] / Hemostatic Clip Res 235cm - [id number] Implanted:Qty: 1 on 05/09/[address] MD at ENDOSCOPY [facility] N/A: Stomach [employer] : ENDOSCOPY 11/15/2025 [id number] / / documented as of this encounter Visit Diagnoses Diagnosis Orthostatic hypotension- Primary Bronchitis, complicated Bronchitis, not specified as acute or chronic Autonomic neuropathy Unspecified disorder of autonomic nervous system HTN, goal below 130/80 Unspecified essential hypertension Cirrhosis of liver with ascites, unspecified hepatic cirrhosis type (HCC) Chronic heart failure with preserved ejection fraction (HCC) Protein-calorie malnutrition, unspecified severity (HCC) Stage 3b chronic kidney disease (HCC) documented in this encounter Advance Directives * Full Code (Latest Code Status on File) Date Activated Date Inactivated Comments 08/09/2016 2:37 PM 08/09/2016 7:17 PM This order r eflects the patients wishes and were consensually agreed upon. Care Teams Medical Coding Auditor Relationship Specialty Start Date End Date Deb Camara MD [address] [facility] [place] [address] PCP - General Internal Medicine 05/09/24 documented as of this encounter
--- OUTSIDE RECORDS SUMMARY | 2024-07-26 00:45 | External Medical Summary | Summary of Care ---
Author Name Unknown Organization [facility] Address [address] [place] [address] Phone [phone] Care Team Providers Care Inspector Timers Name Role Phone Deb Camara MD Primary Care Provider [phone] Reason for Visit * Reason Comments EMG Encounter Details Date Type Department Care Team (Late st Contact Info) Description 05/29/2024 3:00 PM EST NeuroDiagnostic Study Neurophysiology [facility] [address] [place] [address] Meme Perez MD [address] [place] [address] Arrived Allergies Active Allergy Reactions Criticality Noted [...] mRNA, LNP-s, No Pre serve, 2-Dose Series (MedWhat) 02/02/2021,06/14/2020,05/24/2020 COVID-19, LNP-s, No Preserve , Ellis-sucrose, [...] as of this encounter Progress Notes * Meme Perez MD - 05/29/2024 3:46 PM EST [facility] Neurophysiology Department [place], [place] Test Date: 05/29/2024 Patient: Delvis Munoz : 1950 Physician: Meme Perez MD Sex: Male Height: 5' 10" Ref Phys: Meme Perez MD ID#: [id number] Weight: 197 lbs. German Professor: Carlos Shaffer Patient Complaints: orthostatic hypotension, eval [...] tibialis anterior and medial gastroc is unremarkable Meem Perez MD NCS+ Motor Nerve Results Latency Amplitude Segment Distance Velocity Min F-Lat Temperature Site (ms) Norm (mV) Norm cm m/s Norm (ms) Norm (°C) Left Fibular (with F) Ankle 5.4 < 6.7 2.00 > 2.0 Ankle-EDB 8.5 55.4 < 58.0 33 Bel Fib Head 13.3 - 1.72 - Bel Fib Head-Ankle 32.5 41 > 41 33.1 Pop Fossa 15.5 - 1.69 - Pop Fossa-Ankle 42.5 42 - 33.2 Pop Fossa-Bel Fib Head 10 45 - Left Tibial (with F) Ankle 6.0 < 6.2 5.6 > 4.0 Ankle-AHB 8 58.2 < 58.0 33.3 Pop Fossa 15.4 - 4.2 - Pop Fossa-Ankle 39 41 > 41 33.4 Left Ulnar (with F) Wrist 3.4 < 3.7 10.3 > 6.0 Wrist-ADM 6.5 33.8 Bel Elbow 7.4 - 8.0 - Bel Elbow-Wrist 19.5 49 > 52 33.8 Abv Elbow 9.5 - 7.7 - Abv Elbow-Bel Elbow 10 48 - 33.8 Abv Elbow-Wrist 29.5 48 - Motor Segments Delta-O Distance CV Segment (ms) (cm) (m/s) Norm Left Fibular (with F) Ankle-EDB 8.5 Bel Fib Head-Ankle 7.9 32.5 41 > 41 Pop Fossa-Ankle 10.1 42.5 42 - Pop Fossa-Bel Fib Head 2.2 10 45 - Left Tibial (with F) Ankle-AHB 8 Pop Fossa-Ankle 9.4 39 41 > 41 Left Ulnar (with F) Wrist-ADM 6.5 Bel Elbow-Wrist 4.0 19.5 49 > 52 Abv Elbow-Bel Elbow 2.1 10 48 - Abv Elbow-Wrist 6.1 29.5 48 - Sensory Nerve Results Latency (Peak) Amplitude ( O-P ) Segment Distance Temperature Site (ms) Norm (µV) Norm (cm) (°C) Left Radial Sensory Forearm-Snuff Box 2.9 < 3.0 7 > 20 Forearm-Snuff Box 10 33.8 Left Sural Sensory Calf-Lat Mall NR < 4.6 NR > 6 Calf-Lat Mall 14 31.9 Right Sural Sensory Calf-Lat Mall NR < 4.6 NR > 6 Calf-Lat Mall 14 32.8 EMG+ Side Muscle Root Ins Act Fibs Fasic Others Poly Dur Amp Recrt Activation Commt Left Vastus Lat L2-L4 NL 0 0 None 0 NL NL NL NL Left Tib Anterior L4-L5 NL 0 0 None 0 NL NL NL NL Left Gastroc MH S1-S2 NL 0 0 None 0 NL NL NL NL Left Biceps Fem LH L5-S2 NL 0 0 None 0 NL NL NL NL documented in this encounter Plan of Treatment Upcoming Encounters Date Type Department Care Team (Late st Contact Info) Description 06/05/2024 10:00 AM EDT Imaging [facility] 2nd Floor Cardiology, [address] [place] [phone] 06/05/2024 2:00 PM EDT Imaging [facility] 2nd Floor Cardiology, [address] [place] [address] 06/28/2024 1:00 PM EDT Office Visit Neurology [facility] [address] [place] [address] Meme Perez MD [address] [place] [address] 07/03/2024 2:40 PM EDT Office Visit [facility], Brian Carrero [address] [place] [address] Jerzy Glez MD [address] [place] [address] 07/24/2024 1:00 PM EDT Office Visit [facility], Brian Carrero [address] [place] [address] Deb Camara MD [address] [facility] [place] [address] 07/31/2024 11:40 AM EDT Office Visit Nephrology, [facility] [address] [place] [address] Kerri Garcia MD [address] [place] [address] 08/21/2024 11:00 AM EDT Office Visit Cardiology, [facility] [address] [place] [address] Sandra Laura CRNP [address] [place] [address] 10/02/2024 10:40 AM EDT Office Visit Family Practice, Brian Carrero [address] [place] [address] Deb Camara MD [address] [place] [address] 11/12/2024 11:20 AM EDT Office Visit Hepatology, [facility] [address] [place] [address] Kaity Comer DO [address] [place] [address] 11/23/2024 1:00 PM EDT Telemedicine [facility] [address] [facility] [place] [address] Jackson Munoz MD [address] [facility] [place] [address] Scheduled Procedures Name Priority Associated Diagnoses Date/Ti [...] Additional history exists CKD PHOS USE SMARTSET 94726 04/19/202503/29, 04/15/2024, 10/07/2022, Additional history exists B-12 05/10/2025 05/10/2024, 10/2023, 01/04/2023, Additional history exists CKD HGB USE SMARTSET 40843 05/10/202505/10, 05/10/2024, 04/24/2024, Additional history exists DTap/Tdap [...] this encounter Medical Devices Implanted Type Area Fax Machine Operator Device Identifier Shelf Expiration Date Model / Serial / Lot Lens 19.0 Cz70bd - [id number] - [id number] Implanted:Qty: 1 on 08/09/2016 by Madi Frederick MD at OR [facility] Right: Eye [employer] : SURGICAL 2018 [id number] / [id number] / Hemostatic Clip Res 235cm - [id number] Implanted:Qty: 1 on 05/09/[address] Davis MD at [facility] N/A: Stomach [employer] : ENDOSCOPY 11/15/2025 [id number] / / documented as of this encounter Visit Diagnoses Diagnosis Sensory polyneuropathy- 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 Care Teams Inspector Timers Relationship Specialty Start Date End Date Deb Camara MD [address] [place] [address] PCP - General Internal Medicine 05/09/24 documented as of this encounter
--- OUTSIDE RECORDS SUMMARY | 2024-07-26 00:45 | External Medical Summary | Summary of Care ---
Author Name Unknown Organization [facility] Address [address] [facility] [place] [address] Phone [phone] Care Team Providers Care Bristle Machine Operator Name Role Phone Deb Camara MD Primary Care Provider [phone] Reason for Visit * Reason Comments Outpatient Testing Encounter Details Date Type Department Care Team (Late st Contact Info) Description 06/04/2024 7:50 AM EDT Laboratory Laboratory, [place] [facility] [address] [facility] [place] [phone] [place], Laboratory [address] [facility] [place], [place] [phone] Orthostatic hypotension Allergies Active Allergy Reactions Criticality Noted Date Comments Lisinopril 12/05/2023 dizziness Losartan 05/24/2023 Dizziness documented as of this encounter (statuses as of 06/04/2024) Medications Midodrine HCl 5 MG Oral Tablet [...] as of this encounter (statuses as of 06/04/2024) Active Problems Problem Noted Date Diagnosed Date [...] as of this encounter (statuses as of 06/04/2024) Resolved Problems Problem Noted Date Diagnosed Date [...] as of this encounter (statuses as of 06/04/2024) Immunizations Name Administration Dates Next Due COVID-19 mRNA, LNP-s, No Pre serve, 2-Dose Series (Seab[employer]) 02/02/2021,06/14/2020,05/24/2020 COVID-19, LNP-s, No Preserve , Ellis-sucrose, [...] Info) Description 06/05/2024 10:00 AM EDT Imaging [facility] 2nd [facility] Cardiology, [address] [place] [address] 06/05/2024 2:00 PM EDT Imaging [facility]nd [facility] [address] [place], [place] [phone] 06/28/2024 1:00 PM EDT Office Visit Neurology [facility] [address] [facility] [place] [address] Meme Perez MD [address] [facility] [place] [address] 07/03/2024 2:40 PM EDT Office Visit Family Practice, [place] [facility]ozef Carrero [address] [facility] [place] [address] Jerzy Glez MD [address] [place] [address] 07/24/2024 1:00 PM EDT Office [place], [place] [address] [place] [address] Deb Camara MD [address] [place] [address] 07/31/2024 11:40 AM EDT Office Visit Nephrology, [facility] [address] [facility] [place], [place] [address] Kerri Garcia MD [address] [facility] [place] [address] 08/21/2024 11:00 AM EDT Office Visit Cardiology, [facility] [address] [place] [address] Sandra Laura CRNP [address] [place] [address] 10/02/2024 10:40 AM EDT Office Visit Family Practice, [place] Jozef Magan [address] [facility] [place] [address] Deb Camara MD [address] [place] [address] 11/12/2024 11:20 AM EDT Office Visit Hepatology, [facility] [address] [place] [address] Kaity Comer DO [address] [place] [address] 11/23/2024 1:00 PM EDT Telemedicine [facility] Tevin [address] [facility] [place] [address] Jackson Munoz MD [address] [facility] [place] [address] Pending Results Name Type Priority Associated Diagnoses Date /Time CORTISOL Lab Routine Orthostatic hypotension 06/04/2024 7:58 AM EDT ADRENOCORTICOTROPIC HORMONE Lab Routine Orthostatic hypotension 06/04/2024 7:58 AM EDT Scheduled Procedures Name Priority Associated [...] Additional history exists CKD PHOS USE SMARTSET 85950 04/19/202503/29, 04/15/2024, 10/07/2022, Additional history exists B-12 05/10/2025 05/10/2024, 1010/2023, 01/04/2023, Additional history exists CKD HGB USE SMARTSET 46249 05/10/202505/10, 05/10/2024, 04/24/2024, Additional history exists DTap/Tdap [...] this encounter Medical Devices Implanted Type Area Tower Equipment Repairer Device Identifier Shelf Expiration Date Model / Serial / Lot Lens 19.0 [id number] - [id number] - [id number] Implanted:Qty: 1 on 08/09/2016 by Madi Frederick MD at OR [facility] Right: Eye KIMMIE : SURGICAL 2018 [id number] / [id number] / Hemostatic Clip Res 235cm - [id number] Implanted:Qty: 1 on 05/09/[address] MD at ENDOSCOPY [facility] N/A: Stomach [employer] : ENDOSCOPY 11/15/2025 [id number] / / documented as of this encounter Visit Diagnoses Diagnosis Orthostatic hypotension documented in this encounter Advance Directives * Full Code (Latest Code Status on File) Date Activated Date Inactivated Comments 08/09/2016 2:37 PM 08/09/2016 7:17 PM This order r eflects the patients wishes and were consensually agreed upon. Care Teams Bristle Machine Operator Relationship Specialty Start Date End Date Deb Camara MD 226 [facility] [place] [id number] PCP - General Internal Medicine 05/09/24 documented as of this encounter
--- OUTSIDE RECORDS SUMMARY | 2024-07-26 00:45 | External Medical Summary ---
Author Name Unknown Address Unknown Organization K01:[facility] - [address] [place] [address] Laboratory Report Ordering Provider Test Date Status ANN MARIE FIELDS 06/04/2024 07:58:44 Final Observation Date Value Abnormality Reference (Units ) Status Cortisol 06/04/2024 07:58:44 10.6 2.5-19.5 ( ug/dL) Final AM Reference Range: 4.8 - 19 .5 ug/dL
PM Reference Range: 2.5 - 11.9 ug/dL Performing Location [facility] - [address] [place] [address]
--- OUTSIDE RECORDS SUMMARY | 2024-07-26 00:46 | External Medical Summary | Summary of Care ---
Author Name Unknown Organization [facility] Address [address] [facility] [address] Phone [phone] Care Team Providers Care Boat Patcher Plastic Name Role Phone Deb Camara MD Primary Care Provider [phone] Encounter Details Date Type Department Care Team (Late st Contact Info) Description 04/08/2024 Result Scan Unspecified Department <No scans attached> Allergies Active Allergy Reactions Criticality Noted Date Comments Lisinopril 12/05/2023 dizziness Losartan 05/24/2023 Dizziness documented as of this encounter (statuses as of 05/22/2024) Medications traZODone HCl 100 MG Oral Tablet (Desyrel)Indicat ions:Persistent insomnia Take 1 Tablet by mouth at bedtime. 90 Tablet 1 03/06/2024 Active documented as of this encounter (statuses as of 05/22/2024) Active Problems Problem Noted Date Diagnosed Date [...] as of this encounter (statuses as of 05/22/2024) Resolved Problems Problem Noted Date Diagnosed Date [...] as of this encounter (statuses as of 05/22/2024) Immunizations Name Administration Dates Next Due COVID-19 [...] Description 05/24/2024 11:20 AM EST Office Visit [facility] Jozef Carrero [address] [place] [address] Deb Camara MD [address] [place] [address] 05/25/2024 1:00 PM EST Telemedicine [facility] [place] [address] [facility] [place] [address] Jackson Munoz MD [address] [facility] [place] [address] 05/28/2024 11:40 AM EST Office Visit Nephrology, [facility] Cervantes [address] [place] [address] Kerri Garcia MD [address] [place] [address] 05/29/2024 3:00 PM EST NeuroDiagnostic Study Neurophysiology [facility] Dickson [address] [place] [address] Meme Perez MD [address] [place] [address] [address] 06/05/2024 10:[address] [facility] 2nd Floor Cardiology, [place] [address] [facility] [address] 06/05/2024 2:[address] [facility] 2nd Floor Cardiology, [place] [address] [place] [address] 06/28/2024 1:00 PM EDT Office Visit Neurology [facility] [address] [place] [address] Meme Perez MD 200 [facility] [place] [address] 07/03/2024 2:40 PM EDT Office Visit [facility] 226 [place] [phone] Jerzy Glez MD 226 [place] [address] 07/31/2024 11:40 AM EDT Office Visit Nephrology, [facility] 200 [facility] [place] [address] Kerri Garcia MD 200 [facility] [place] [address] 08/21/2024 11:00 AM EDT [facility] [address] [facility] [place] [address] Sandra Laura CRNP 132 [facility] [place] [address] 10/02/2024 10:40 AM EDT Office Visit [facility] 226 [place] [phone] Deb Camara MD 226 [place] [address] 11/12/2024 11:20 AM EDT Office Visit Hepatology, [facility] [address] [place] [address] Kaity Comer DO [address] [place] [address] Scheduled Procedures Name Priority Associated Diagnoses Date/Ti [...] 10/22/2024 04/24/2024, 03/29, 04/15/2024, Additional history exists HbA1c 11/07/2024 05/10/2024, 10/2023, 09/13/2023, Additional history exists CKD PHOS USE SMARTSET 91583 04/19/202503/29, 04/15/2024, 10/07/2022, Additional history exists B-12 05/10/2025 05/10/2024, 10/2023, 01/04/2023, Additional history exists CKD HGB USE SMARTSET 28862 05/10/202505/10, 05/10/2024, 04/24/2024, Additional history exists DTap/Tdap [...] this encounter Medical Devices Implanted Type Area Network Designer Device Identifier Shelf Expiration Date Model / Serial / Lot Lens 19.0 Cz70bd - [id number] - [id number] Implanted:Qty: 1 on 08/09/2016 by Madi Frederick MD at OR [facility] Right: Eye KIMMIE : SURGICAL 2018 [id number] / [id number] / Hemostatic Clip Res 235cm - [id number] Implanted:Qty: 1 on 05/09/[address] MD at ENDOSCOPY [facility] N/A: Stomach [employer] : ENDOSCOPY 11/15/2025 [id number] / / documented as of this encounter Procedures Procedure Name Priority Date/Time Associated Diagnosis Comments RADIOLOGY SCANNED RESULT 04/08/2024 RADIOLOGY SCANNED RESULT 04/08/2024 RADIOLOGY SCANNED RESULT 04/07/2024 RADIOLOGY SCANNED RESULT 04/07/2024 documented in this encounter Results * RADIOLOGY SCANNED RESULT (04/08/2024) 04/08/2024 us No Physician Data Unknown DIAGNOSTIC RADIOLOGY S ERVICES Final Result * RADIOLOGY SCANNED RESULT (04/08/2024) 04/08/2024 us No Physician Data Unknown DIAGNOSTIC RADIOLOGY S ERVICES Final Result * RADIOLOGY SCANNED RESULT (04/07/2024) 04/07/2024 us No Physician Data Unknown DIAGNOSTIC RADIOLOGY S ERVICES Final Result * RADIOLOGY SCANNED RESULT (04/07/2024) 04/07/2024 us No Physician Data Unknown DIAGNOSTIC RADIOLOGY S ERVICES Final Result documented in this encounter Advance Directives * Full Code (Latest Code Status on File) Date Activated Date Inactivated Comments 08/09/2016 2:37 PM 08/09/2016 7:17 PM This order r eflects the patients wishes and were consensually agreed upon. Care Teams Boat Patcher Plastic Relationship Specialty Start Date End Date Deb Camara MD [facility] [place] [address] PCP - General Internal Medicine 05/09/24 documented as of this encounter
--- OUTSIDE RECORDS SUMMARY | 2024-07-26 00:46 | External Medical Summary | Summary of Care ---
Author Name Unknown Organization [facility] Address [address] [facility] [address] Phone [phone] Care Team Providers Care Parts Delivery Driver Name Role Phone Deb Camara MD Primary Care Provider [phone] Encounter Details Date Type Department Care Team (Late st Contact Info) Description 05/22/2024 Orders Only PATIENT PORTAL DO NOT DELETE THIS DEPT USED BY [place] [id number] Allergies Active Allergy Reactions Criticality Noted Date [...] mRNA, LNP-s, No Pre serve, 2-Dose Series ([employer]) 02/02/2021,06/14/2020,05/24/2020 COVID-19, LNP-s, No Preserve , Ellis-sucrose, [...] No 09/22/2023 Does the household have a karmanos cancer centerr source of income? (Household - for [...] Description 05/24/2024 11:20 AM EST Office Visit Brian Borjas [address] [place] [phone] Deb Camara MD [address] [place] [address] 05/25/2024 1:00 PM EST Telemedicine [facility] Tevin [address] [facility] [place] [address] Jackson Munoz MD [address] [facility] [place] [address] 05/28/2024 11:40 AM EST Office Visit Nephrology, [facility] [address] [place] [address] Kerri Garcia MD [address] [place] [address] 05/29/2024 3:00 PM EST NeuroDiagnostic Study Neurophysiology [facility] [address] [place] [address] Meme Perez MD 200 [facility] [place] [address] 06/05/2024 10:00 AM EDT Imaging [facility] 2nd Floor Cardiology, [place] 132 [place] [address] 06/05/2024 2:00 PM EDT Imaging [facility] 2nd Floor Cardiology, [place] 132 [place] [address] 06/28/2024 1:00 PM EDT Office Visit Neurology [facility] [address] [place] [address] Meme Perez MD 200 [facility] [place] [address] 07/03/2024 2:40 PM EDT Office Visit [facility] [address] [facility] [place] [phone] Jerzy Glez MD 226 [facility] [place] [address] 07/31/2024 11:40 AM EDT Office Visit Nephrology, [facility] 200 [place] [address] Kerri Garcia MD 200 [facility] [place] [address] 08/21/2024 11:00 AM EDT Office Visit Cardiology, [facility] [address] [place] [address] Sandra Laura CRNP [address] [place] [address] 10/02/2024 10:40 AM EDT Office Visit [facility] [address] [place] [phone] Deb Camara MD 226 [place] [address] 11/12/2024 11:20 AM EDT Office Visit Hepatology, [facility] [place] [address] Kaity Comer DO [facility] [place] [address] Scheduled Procedures Name Priority Associated Diagnoses Date/Ti [...] Additional history exists CKD PHOS USE SMARTSET 15773 04/19/202503/29, 10/07/2022, 08/17/2021, Additional history exists B-12 05/10/2025 05/10/2024, 10/2023, 01/04/2023, Additional history exists CKD HGB USE SMARTSET 44462 05/10/202505/10, 05/10/2024, 04/24/2024, Additional history exists DTap/Tdap [...] this encounter Medical Devices Implanted Type Area Crop Roller Device Identifier Shelf Expiration Date Model / Serial / Lot Lens 19.0 Cz70bd - [id number] - [id number] Implanted:Qty: 1 on 08/09/2016 by Madi Frederick MD at OR [facility] Right: Eye KIMMIE : SURGICAL 2018 [id number] / [id number] / Hemostatic Clip Res 235cm - [id number] Implanted:Qty: 1 on 05/09/[address] MD at ENDOSCOPY [facility] N/A: Stomach [employer] : ENDOSCOPY 11/15/2025 [id number] / / documented as of this encounter Advance Directives * Full Code (Latest Code Status on File) Date Activated Date Inactivated Comments 08/09/2016 2:37 PM 08/09/2016 7:17 PM This order r eflects the patients wishes and were consensually agreed upon. Care Teams Parts Delivery Driver Relationship Specialty Start Date End Date Deb Camara MD [address] [facility] [place] [address] PCP - General Internal Medicine 05/09/24 documented as of this encounter
--- OUTSIDE RECORDS SUMMARY | 2024-07-26 00:46 | External Medical Summary | Summary of Care ---
Author Name Unknown Organization [facility] Address [address] [facility] [place] [address] Phone [phone] Care Team Providers Care Dynamics Ax Developer Name Role Phone Deb Camara MD Primary Care Provider [phone] Encounter Details Date Type Department Care Team (Late st Contact Info) Description 05/22/2024 Orders Only [facility] [address] [place] [phone] Deb Camara MD 226 [facility] [place], [place] [phone] Allergies Active Allergy Reactions Criticality Noted Date [...] mRNA, LNP-s, No Pre serve, 2-Dose Series ([employer]) 02/02/2021,06/14/2020,05/24/2020 COVID-19, LNP-s, No Preserve , Ellis-sucrose, [...] Description 05/24/2024 11:20 AM EST [facility] [address] [place] [address] Deb Camara MD [address] [facility] [place] [address] 05/25/2024 1:00 PM EST Telemedicine [facility] [place] [address] [place] [address] Jackson Munoz MD [address] [place] [address] 05/28/2024 11:40 AM EST Office Visit Nephrology, [facility] [address] [place], [place] [address] Kerri Garcia MD [address] [place], [place] [address] 05/29/2024 3:00 PM EST NeuroDiagnostic Study Neurophysiology [facility] [address] [place] [address] Meme Perez MD [address] [place], [place] [address] 06/05/2024 10:00 AM EDT Imaging [facility] 2nd Floor Cardiology, [place] 132 [place] [address] 06/05/2024 2:00 PM EDT Imaging [facility] 2nd Floor Cardiology, [place] 132 [place] [address] 06/28/2024 1:00 PM EDT Office Visit Neurology [facility] [address] [place], [place] [address] Meme Perez MD [address] [place], [place] [address] 07/03/2024 2:40 PM EDT Office Visit [facility] 226 [facility] [place] [phone] Jerzy Glez MD [address] [facility] [address] 07/31/2024 11:40 AM EDT Office Visit Nephrology, [facility] 200 [place] [place] [address] Kerri Garcia MD 200 [facility] [place] [address] 08/21/2024 11:00 AM EDT Office Visit Cardiology, [facility] [address] [place] [address] Sandra Laura CRNP [address] [place] [address] 10/02/2024 10:40 AM EDT Office Visit Family [facility] 226 [facility] [place] [phone] Deb Camara MD [address] [place] [address] 11/12/2024 11:20 AM EDT Office Visit Hepatology, [facility] [address] [place] [address] Kaity Comer DO [address] [place] [address] Scheduled Procedures Name Priority Associated Diagnoses Date/Ti [...] Additional history exists CKD PHOS USE SMARTSET 50456 04/19/202503/29, 04/15/2024, 10/07/2022, Additional history exists B-12 05/10/2025 05/10/2024, 10/2023, 01/04/2023, Additional history exists CKD HGB USE SMARTSET 87227 05/10/202505/10, 05/10/2024, 04/24/2024, Additional history exists DTap/Tdap [...] this encounter Medical Devices Implanted Type Area Manager Front Office Device Identifier Shelf Expiration Date Model / Serial / Lot Lens 19.0 Cz70bd - [id number] - [id number] Implanted:Qty: 1 on 08/09/2016 by Madi Frederick MD at OR [facility] Right: Eye KIMMIE : SURGICAL 2018 [id number] 0 / [id number] / Hemostatic Clip Res 235cm - [id number] Implanted:Qty: 1 on 05/09/[address] MD at ENDOSCOPY [facility] N/A: Stomach [employer] : ENDOSCOPY 11/15/2025 [id number] / / documented as of this encounter Procedures Procedure Name Priority Date/Time Associated Diagnosis Comments CT ABD/PELVIS WO IV CONTRAST - W ORAL CONTRAST Routine 04/08/2024 documented in this encounter Results * CT ABD/PELVIS WO IV CONTRAST - W ORAL CONTRAST (04/08/2024) Anatomical Region Laterality Modality Body, Abdomen, Pelvis Other 04/08/2024 us History Per Patient RAD CT Final Result documented in this encounter Advance Directives * Full Code (Latest Code Status on File) Date Activated Date Inactivated Comments 08/09/2016 2:37 PM 08/09/2016 7:17 PM This order r eflects the patients wishes and were consensually agreed upon. Care Teams Dynamics Ax Developer Relationship Specialty Start Date End Date Deb Camara MD [address] [place] [address] PCP - General Internal Medicine 05/09/24 documented as of this encounter
--- OUTSIDE RECORDS SUMMARY | 2024-07-26 00:46 | External Medical Summary | Summary of Care ---
Author Name Unknown Organization [facility] Address [address] [facility] [place] [address] Phone [phone] Care Team Providers Care Painting And Coating Worker Name Role Phone Deb Camara MD Primary Care Provider [phone] Encounter Details Date Type Department Care Team (Late st Contact Info) Description 05/22/2024 Orders Only [facility] [address] [place] [phone] Deb Camara MD [address] [facility] [place], [place] [id number] Allergies Active Allergy Reactions Criticality Noted Date [...] mRNA, LNP-s, No Pre serve, 2-Dose Series (Fromography) 02/02/2021,06/14/2020,05/24/2020 COVID-19, LNP-s, No Preserve , Ellis-sucrose, [...] Description 05/24/2024 11:20 AM EST [facility] [address] [place] [phone] Deb [facility]ara MD [facility] [place] [id number] 05/25/2024 1:00 PM EST Telemedicine [facility] [place] [address] [place] [address] Jackson Munoz MD [address] [place] [address] 05/28/2024 11:40 AM EST Office Visit Nephrology, [facility] [address] [place], [place] [address] Kerri Garcia MD [address] [place], [place] [address] 05/29/2024 3:00 PM EST NeuroDiagnostic Study Neurophysiology [facility] [address] [place] [address] Meme Perez MD [address] [place], [place] [address] 06/05/2024 10:00 AM EDT Imaging [facility] II 2nd Floor Cardiology, [place] [address] [facility] [place] [phone] 06/05/2024 2:00 PM EDT Imaging [facility] II 2nd Floor Cardiology, [place] [address] [facility] [place] [address] 06/28/2024 1:00 PM EDT Office Visit Neurology [facility] [address] [place], [place] [address] Meme Perez MD [address] [place], [place] [address] 07/03/2024 2:40 PM EDT Office Visit [facility] [address] [facility] [place] [phone] Jerzy Glez MD [address] [facility] [place] [address] 07/31/2024 11:40 AM EDT Office Visit Nephrology, [facility] [address] [facility] [place] [address] Kerri Garcia MD [address] [facility] [place] [address] 08/21/2024 11:00 AM EDT Office Visit Cardiology, [facility] [address] [place] [address] Sandra Laura CRNP [address] [place] [address] 10/02/2024 10:40 AM EDT Office Visit Family [facility] [address] [place] [phone] Deb Camara MD [address] [facility] [place] [address] 11/12/2024 11:20 AM EDT Office Visit Hepatology, [facility] [address] [place] [address] Kaity Comer DO [address] [place] [address] Scheduled Procedures Name Priority Associated Diagnoses Date/Ti [...] Additional history exists CKD PHOS USE SMARTSET 07073 04/19/202503/29, 04/15/2024, 10/07/2022, Additional history exists B-12 05/10/2025 05/10/2024, 10/2023, 01/04/2023, Additional history exists CKD HGB USE SMARTSET 01703 05/10/202505/10, 05/10/2024, 04/24/2024, Additional history exists DTap/Tdap [...] this encounter Medical Devices Implanted Type Area Technical Buyer Device Identifier Shelf Expiration Date Model / Serial / Lot Lens 19.0 [id number] - [id number] - [id number] Implanted:Qty: 1 on 08/09/2016 by Madi Frederick MD at OR [facility] Right: Eye KIMMIE : SURGICAL 2018 [id number] / [id number] / Hemostatic Clip Res 235cm - [id number] Implanted:Qty: 1 on 05/09/2023 by Lane Davis MD at ENDOSCOPY [facility] N/A: Stomach [employer] : ENDOSCOPY 11/15/2025 [id number] / / documented as of this encounter Procedures Procedure Name Priority Date/Time Associated Diagnosis Comments CHEMISTRY-OUTSIDE Routine 04/15/2024 TSH Routine 04/07/2024 documented in this encounter Results * (ABNORMAL) CHEMISTRY-OUTSIDE (04/15/2024) Not all results display below - see scan for full detail OUTSIDE LAB (SEE SCANNED REPORT) Comment:SCAN INCL: INPT LABS : CBCD,PT,INR,UA,CMP,MG,PHOS,TROP,LYME,PROCAL,VIRUS SCR,BLOOD CULT CREATININE 0.93 0.6 - 1.4 MG/DL OUTSIDE LAB (SEE SCANNED REPORT) EGFR 85.63 OUTSIDE LA B (SEE SCANNED REPORT) POTASSIUM 4.6 3.5 - 5.1 MMOL/L OUTSIDE LAB (SEE SCANNED REPORT) GLUCOSE 85 70 - 99 MG/DL OUTSIDE LAB (SEE SCANNED REPORT) HOURS FASTING OUTSID E LAB (SEE SCANNED REPORT) TRIGLYCERIDES-OUT SIDE LAB OUTSIDE LAB (SEE SCANNED REPORT) CHOLESTEROL-OUTSI DE LAB OUTSIDE LAB (SEE SCANNED REPORT) HDL-OUTSIDE LAB OUTS BERTIN LAB (SEE SCANNED REPORT) CHOL/HDL RATIO-OUTSIDE LAB OUTSIDE LA B (SEE SCANNED REPORT) LDL (CALCULATED)-OUTS BERTIN LAB OUTSIDE LAB (SEE SCANNED REPORT) LDL (DIRECT MEASURE)-OUTSIDE LAB OUTSIDE LAB (SEE SCANNED REPORT) HEMOGLOBIN, [id number] LAB OUTSIDE LAB (SEE SCANNED REPORT) PHOSPHORUS-OUTSID E LAB 2.5 2.5 - 4.9 OUTSIDE LAB (SEE SCANNED REPORT) PTH-OUTSIDE LAB OUTS BERTIN LAB (SEE SCANNED REPORT) MICROALBUMIN RATIO-OUTSIDE LAB OUTSIDE LA B (SEE SCANNED REPORT) PROTEIN, UA-OUTSIDE LAB OUTSIDE LAB (SEE SCANNED REPORT) HGB 12.8(A) 14.0 - 18.0 G/DL OUTSIDE LAB (SEE SCANNED REPORT) 04/15/2024 us History Per Patient LABORATORY Final Result OUTSIDE LAB (SEE SCANNED REPORT) * TSH (04/07/2024) TSH - OUTSIDE LAB 1.483 0.300 - 4.500 UIU/ML OUTSIDE LAB (SEE SCANNED REPORT) Blood Venous blood specimen / Unknown 04/07/2024 us History Per Patient LAB BLOOD ORDERABLES Final R esult OUTSIDE LAB (SEE SCANNED REPORT) documented in this encounter Advance Directives * Full Code (Latest Code Status on File) Date Activated Date Inactivated Comments 08/09/2016 2:37 PM 08/09/2016 7:17 PM This order r eflects the patients wishes and were consensually agreed upon. Care Teams Painting And Coating Worker Relationship Specialty Start Date End Date Deb Camara MD [address] [place] [address] PCP - General Internal Medicine 05/09/24 documented as of this encounter
[2024-07-26] MEDS: FUROSEMIDE 40 MG/4 ML VIAL IV STA (01:25)
--- NOTE | 2024-07-26 01:46 | History & Physical Report ---
Date of Service July 26, 2024 Assessment & Plan (1) CHF (congestive heart failure): Plan: Decompensated heart failure Likely from uncontrolled blood pressure secondary to sodium tablets for recurrent orthostasis History of diastolic dysfunction hx valvular heart disease (mild MR/TR) History of ILD, not in acute exacerbation history endocarditis DM2 diet-controlled, well-controlled as of recent hemoglobin A1c of 5.1 3 months ago chronic anemia, hemoglobin at baseline NAFLD cirrhosis, no overt decompensation prostate cancer status post surgery chronic back pain on narcotics past tobacco abuse Admit to PCU Diuretic Rx Hold salt tablets for now Strict I/Os, daily weights, CHF education Cardiology consult re: CHF 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 Lovenox subcu Full code Patient requesting updates providers. Ms. Sinai Munoz, contact #[phone]. Text document was generated using [employer] voice recognition software. It may contain grammatical or spelling errors. Kindly contact undersigned for clarification of any documentation item in ques tion. History of Present Illness Chief Complaint: Shortness of breath, fluid retention Primary Care Provider: Jerzy Glez MD History obtained from patient and records. Medical history significant for chronic diastolic heart failure (EF 60 %, TTE 2023), valvular heart disease (mild MR/TR), orthostatic hypotension on salt tablets, ILD, history endocarditis, DM2 diet-controlled, chronic anemia (baseline hemoglobin 11-12), NAFLD cirrhosis, prostate cancer, chronic back pain on narcotics, past tobacco abuse. Last confinement April 2024 for recurrent orthostasis, complicated bronchitis. Patient instructed to continue salt tablets. Midodrine dose increased on discharge. Patient seen [place] [facility] extraction machine operator office last month. Midodrine discontinued last month by [facility] extraction machine operator due to ineffectiveness. Patient with exertional SOB symptoms at time of visit with crackles noted on exam. Chest x-ray done at office showed mild haziness/reticular opacities mid to lower lungs. Outpatient CT chest recommended. 2 weeks ago, patient noted worsening SOB on exertion without chest pain. Abdominal distention with 10 pound weight gain as per patient. Denies headache symptoms. No unusual cough symptoms as per patient. Patient seen at PCP's office 2 days ago. Outpatient BNP and troponin levels noted to be abnormal. Outpatient CT chest scheduled. Transient hypoxemia O2 sats 80s noted at home. Patient directed to ER for evaluation. SBP 190s upon arrival at the ER. 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 Allergies Allergy/AdvReac Type Severity Reaction Status Date / Time lisinopril Allergy Dizziness Verified 07/25/24 22:46 losartan Allergy Dizziness Verified 07/25/24 22:46 Home Medications Medication Instructions Recorded Confirmed Type oxycodone 10 mg tablet 10 mg PO QID 01/02/22 07/25/24 History sodium chloride 1,000 mg soluble 1 g PO BID 05/17/24 07/25/24 History tablet diphenhydramine 25 1 tab PO HS 07/25/24 07/25/24 History mg-acetaminophen 500 mg tablet (Tylenol PM Extra Strength) montelukast 10 mg tablet 10 mg PO DAILY 07/25/24 07/25/24 History Past Med/Surg History Problem List (Updated 07/26/24 @ 05:27 by Brandy Palacios DO) CHF (congestive heart failure) (Acute) Orthostatic hypotension (Acute) Dizziness on standing Pneumonia Chronic diastolic congestive heart failure Autonomic dysfunction Autonomic postural hypotension Hyponatremia Positional lightheadedness JUWAN (acute kidney injury) (Acute) Leukocytosis (Acute) Cirrhosis Dehydration (Acute) Dizziness (Acute) COVID-19 Depression Hypertension, essential Dizziness (Acute) Generalized weakness (Acute) COVID-19 (Acute) Generalized weakness (Acute) Leukocytosis (Acute) Fever (Acute) Acute exacerbation of CHF (congestive heart failure) (Acute) Shortness of breath (Acute) Bilateral edema of lower extremity (Acute) Recent weight gain (Acute) Hypomagnesemia (Acute) Acute on chronic heart failure with preserved ejection fraction (HFpEF) Chest pressure (Acute) Acute exacerbation of CHF (congestive heart failure) (Acute) Multiple rib fractures (Acute) History of cholecystectomy Previous back surgery Rib pain (Acute 09/10/10) Subacute bacterial endocarditis (Acute 09/24/10) Medical History Anemia Cirrhosis H/O endocarditis DMII (diabetes mellitus, type 2) CKD (chronic kidney disease), stage III Hypertensive urgency Acute decompensated heart failure Opioid type dependence, unspecified Social History Smoking Status: Former smoker Tobacco Type: Cigarettes Cigarettes Per Day: 15; Second Hand Exposure: No; Do You Dip or Chew Tobacco: No; Hx Alcohol Use: No Hx Substance Use: No Preferred Language: Omani Communication Ability: Effective 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 Beliefs That Will Affect Care: None marital status: Current Living Situation: Spouse Current Living Situation Comment: lives in two story home with Feels Safe at Home: Yes Safety Concerns: Feels Safe At This Time Assistive Devices: Denture - Upper Review of Systems Review of Systems: As per HPI, all other systems reviewed and negative Physical Exam Physical Exam: GENERAL: Comfortable, pleasant, no respiratory distress SKIN: Pallor, warm HEENT: Pale palpebral conjunctivae, no ptosis, moist buccal mucosa NECK : Supple, no tenderness CHEST : Decreased breath sounds, no tenderness HEART : RRR, no obvious murmurs ABDOMEN: Some distention, nontender EXTREMITIES : Minimal LE swelling, no LE tenderness, no other conspicuous deformities noted NEUROLOGIC : Coherent, no facial asymmetry, gait and stance not assessed Results & Data Results & Data Vital Signs (Past 12 Hours) Vital Signs Temp Pulse Pulse Resp BP BP Pulse Ox 07/26/24 01:19 81 07/26/24 01:00 79 24 174/93 H 94 07/26/24 00:30 80 24 171/88 H 95 07/26/24 00:00 79 22 160/73 H 95 07/25/24 23:31 78 26 H 164/65 H 95 07/25/24 23:00 78 22 169/69 H 94 07/25/24 22:30 78 20 116/80 95 07/25/24 22:00 77 22 171/81 H 97 07/25/24 21:20 97 07/25/24 21:20 77 16 169/77 H 97 07/25/24 21:20 97 07/25/24 21:20 77 07/25/24 20:21 36.7 C 76 16 191/70 H 96 O2 Del Method 07/26/24 01:19 07/26/24 01:00 Room Air 07/26/24 00:30 Room Air 07/26/24 00:00 Room Air 07/25/24 23:31 Room Air 07/25/24 23:00 Room Air 07/25/24 22:30 Room Air 07/25/24 22:00 Room Air 07/25/24 21:20 Room Air 07/25/24 21:20 Room Air 07/25/24 21:20 Room Air 07/25/24 21:20 07/25/24 20:21 Room Air Laboratory Results Laboratory Results WBC 12.50 K/ul (4.8-10.8) H 07/25/24 20:59 RBC 3.84 M/uL (4.70-6.10) L 07/25/24 20:59 Hgb 13.0 g/dl (14.0-18.0) L 07/25/24 20:59 Hct 38.3 % (42.0-52.0) L 07/25/24 20:59 MCV 99.7 fL (80.0-100.0) 07/25/24 20:59 MCH 33.9 pg (25.0-34.0) 07/25/24 20:59 MCHC 33.9 g/dL (32.0-36.0) 07/25/24 20:59 RDW Std Deviation 51.8 fL (36.4-46.3) H 07/25/24 20:59 RDW Coeff of Marjorie 14.2 % (11.5-14.5) 07/25/24 20:59 Plt Count 204 K/uL (130-400) 07/25/24 20:59 MPV 11.5 fL (9.4-12.4) 07/25/24 20:59 Immature Gran % (Auto) 0.3 % 07/25/24 20:59 Neut % (Auto) 64.7 % 07/25/24 20:59 Lymph % (Auto) 21.8 % 07/25/24 20:59 Barton % (Auto) 7.8 % 07/25/24 20:59 Eos % (Auto) 4.8 % 07/25/24 20:59 Baso % (Auto) 0.6 % 07/25/24 20:59 Neut # (Auto) 8.08 K/uL (1.40-6.50) H 07/25/24 20:59 Lymph # (Auto) 2.73 K/uL (1.20-3.40) 07/25/24 20:59 Barton # (Auto) 0.97 K/uL (0.11-0.59) H 07/25/24 20:59 Eos # (Auto) 0.60 K/uL (0.00-0.50) H 07/25/24 20:59 Baso # (Auto) 0.08 K/uL (0.00-0.20) 07/25/24 20:59 Immature Gran # (Auto) 0.04 K/uL (0.01-0.20) 07/25/24 20:59 PT 11.8 Seconds (9.0-12.0) 07/25/24 20:59 INR 1.1 (0.9-1.1) 07/25/24 20:59 APTT 29 Seconds (21-31) 07/25/24 20:59 PTT Ratio 1.1 07/25/24 20:59 Sodium 136 mmol/L (136-145) 07/25/24 20:59 Potassium 4.5 mmol/L (3.5-5.1) 07/25/24 20:59 Chloride 108 mmol/L (98-107) H 07/25/24 20:59 Carbon Dioxide 27 mmol/L (21-32) 07/25/24 20:59 Anion Gap 1 (3-11) L 07/25/24 20:59 BUN 24 mg/dl (6-23) H 07/25/24 20:59 Creatinine 1.19 mg/dl (0.6-1.4) 07/25/24 20:59 Est Cr Clr Drug Dosing Not Reportable 07/25/24 20:59 eGFR 63.31 07/25/24 20:59 BUN/Creatinine Ratio 20.2 (10-20) H 07/25/24 20:59 Glucose 125 mg/dl (70-99(Fasting)) H 07/25/24 20:59 Calcium 8.2 mg/dl (8.6-10.3) L 07/25/24 20:59 Magnesium 1.8 mg/dl (1.7-2.4) 07/25/24 20:59 Total Bilirubin 1.0 mg/dl (0.2-1.0) 07/25/24 20:59 AST 53 U/L (13-39) H 07/25/24 20:59 ALT 28 U/L (7-52) 07/25/24 20:59 Alkaline Phosphatase 275 U/L (34-104) H 07/25/24 20:59 Troponin I High Sens 14.1 pg/ml (0-20) 07/25/24 20:59 B-Natriuretic Peptide 373 pg/ml (0-100) H 07/25/24 21:04 Total Protein 7.3 gm/dl (6.0-8.3) 07/25/24 20:59 Albumin 2.5 gm/dl (3.4-5.0) L 07/25/24 20:59 Globulin 4.8 gm/dl (2.5-4.0) H 07/25/24 20:59 Albumin/Globulin Ratio 0.5 (0.9-2) L 07/25/24 20:59 SARS-CoV-2 (PCR) NEGATIVE (Negative) 07/25/24 20:59 Influenza Type A (PCR) Negative (Neg) 07/25/24 20:59 Influenza Type B (PCR) Negative (Neg) 07/25/24 20:59 RSV (RT-PCR) Negative (Neg) 07/25/24 20:59 Impressions Chest X-Ray 07/25/24 20:24 Exam(s): XR CXR 1 VIEW EXAM: XR Chest, 1 View CLINICAL HISTORY: Reason for exam: Chest pain, nonspecific. TECHNIQUE: Frontal view of the chest. COMPARISON: Chest x-ray: 05/17/2024 there is mild cardiomegaly. FINDINGS: Lungs: There is mild lower lobe interstitial thickening and subsegmental atelectasis. Pleural space: There is mild blunting of the costophrenic angles suggestive of small pleural effusions. No pneumothorax. Heart: Unremarkable. No cardiomegaly. Mediastinum: Cardial mediastinal silhouette is unremarkable for portable AP technique. Bones/joints: There are chronic healed posterior sixth, seventh and eighth right-sided rib fractures. IMPRESSION: 1. There is mild lower lobe interstitial thickening and subsegmental atelectasis. 2. There is mild blunting of the costophrenic angles suggestive of small pleural effusions. Electronically signed by: Kalpesh Jennings MD 07/25/24 23:27 PM Abdominal ultrasound: 1. Mild splenomegaly. 2. The liver show irregular nodular border, measures 13.78 cm in maximum. Unchanged. 3. No free fluid or ascites in the scanned sections. Stable. 4. Mild urinary bladder wall thickening, could be cystitis; clinical correlation is needed. Diagnostic Findings EKG as per my interpretation :Rate 80, LAD, LAFB, LVH, no ischemia, PVCs
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
[2024-07-26] MEDS ORDERED: GLUCAGON FOR INJ 1 MG VIAL SQ PRN (02:59)
[2024-07-26] MEDS ORDERED: NITROGLYCERIN SL 0.4 MG/TAB TAB SL PRN (02:59)
[2024-07-26] MEDS ORDERED: CARBOHYDRATES FOR HYPOGLYCEMIA PO PRN (02:59)
[2024-07-26] MEDS ORDERED: GLUCOSE 40% GEL 15 GM TUBE PO PRN (02:59)
[2024-07-26] MEDS ORDERED: GLUCOSE 10 TAB/TUBE PO PRN (02:59)
[2024-07-26] MEDS ORDERED: DEXTROSE 50% 50 ML SYRINGE IV PRN (02:59)
[2024-07-26] MEDS: oxyCODONE HCL IR 5 MG TAB (IMMEDIATE RELEASE) PO STA (03:02)
[2024-07-26] MEDS: INSULIN ASPART PER UNIT CHARGE SC SCH (03:15)
--- NOTE | 2024-07-26 03:42 | Ultrasound Report ---
EXAM: US abdomen ltd ascites CLINICAL HISTORY: abd distension. TECHNIQUE: Ultrasound examination of the RUQ was performed using a [high-frequency transducer]. Scanning was performed with the patient in supine position. COMPARISON: prior CT 04/08/2024. FINDINGS: No evidence of ascites. Liver: The liver show an irregular nodular border, multiple measurement of size were taken 13.78 cm in maximum. No evidence of focal lesions, cysts, or masses. Spleen: Enalrged meausres 15.1 cm. Bladder: Mild urinary bladder wall thickening, could be cystitis; clinical correlation is needed. No evidence of bladder masses, or intraluminal stones. No free fluid or ascites in the scanned sections. IMPRESSION: 1. Mild splenomegaly. 2. The liver show irregular nodular border, measures 13.78 cm in maximum. Unchanged. 3. No free fluid or ascites in the scanned sections. Stable. 4. Mild urinary bladder wall thickening, could be cystitis; clinical correlation is needed. Electronically signed by Nguyễn Rae 07-26-2024 03:42 AM
--- NOTE | 2024-07-26 05:27 | Emergency Department Note ---
Impression & Plan CHF (congestive heart failure) admit to the [facility] ED Provider Note NAME: THAI MEJIA AGE: 74 SEX: Male INFORMANT: Patient ED PROVIDER(S): Brandy Palacios DO CHIEF COMPLAINT: Shortness of breath PLAN: Disposition: admit to the [facility] MEDICAL DECISION MAKING: This is a 74-year-old male patient who presents the emergency department with increasing shortness of breath and a 10 pound weight gain over the past 2 weeks. He was seen by his PCP who obtained laboratory studies which revealed a BNP of 1100 and a slightly elevated troponin. They directed him here for evaluation and probable admission. Patient's family explains that he had been previously diagnosed with UTI and started on antibiotic Laboratory studies here revealed. Troponin was normal. COVID, flu and RSV testing were all negative. There was no significant leukocytosis. Hemoglobin was at baseline at 13. Coagulation studies were normal. Chest x-ray shows evidence of small bilateral pleural effusions but no pulmonary edema. O2 saturations were stable. All of his diuretics in [place] to orthostatic hypotension. I feel the patient will require admission to the hospital to further treat the CHF and monitor his blood pressure. [facility] care. Triage Nursing notes: reviewed and agree with them. Vital Signs: reviewed and unremarkable Additional History obtained from: Family at the bedside Prior/ Outside/ External records reviewed: I reviewed the patient's laboratory studies in the [facility] [employer] system from yesterday Differential Diagnosis: Pulmonary edema, CHF< [facility], independently interpreted by me: ECG: Normal sinus rhythm at a rate of 81 with frequent PVCs and couplets. There was no ST segment vision or signs of ischemia. Cardiac Monitoring: Normal sinus rhythm at a rate of 83 Imaging studies: Portable chest x-ray: Mild vascular congestion with cardiomegaly. Mild bilateral pleural effusions. This was independently interpreted by me HPI: 74 year old Male arrives for evaluation of the shortness of breath. Patient was referred by his doctor for a 10 pound weight gain. Patient had laboratory studies drawn yesterday at his doctor's office which revealed a elevated BNP and troponin. His family explains that he has a history of CHF. He had been on diuretics but had them discontinued because he suffers from orthostatic hypotension. PAST MEDICAL HISTORY: See Below, PAST SURGICAL HISTORY: See Below, SOCIAL HISTORY: See Below, HOME MEDICATIONS: See list ALLERGIES: See list VITALS: See Below PHYSICAL EXAMINATION: HEENT: Head - normocephalic and atraumatic. Pupils are equal, round, and reactive to light. Extraocular eye muscles are intact, and sclera are anicteric. Nose - moist nasal mucosa without discharge. Mouth - moist buccal mucosa. Oropharynx is nonerythematous and there is no tonsillar exudate or edema noted. Neck: Supple; no JVD Heart: Irregular rhythm. There is a normal S1 and S2 with no murmurs, clicks, or gallops appreciated. Lungs: Diminished breath sounds at both lung bases. There were no obvious rales or rhonchi. There was no wheezing. Abdomen: Soft, completely nontender. The abdomen is slightly distended with good bowel sounds. There are no palpable pulsatile masses or hepatosplenomegaly. There is no guarding, rigidity, or rebound noted. Extremities: No evidence of cyanosis, clubbing, or edema. There are easily palpable peripheral pulses. Skin: warm and dry with good turgor and no rashes. Emergency Department course: The patient was evaluated in room C-5. Pleat history and physical was performed. An order was placed for continuous cardiac monitoring. A twelve-lead EKG was obtained. The patient was in a sinus rhythm at a rate of 83. Laboratory studies were drawn as above. A portable chest x- ray was performed. I did review previous electronic medical records in the [facility] system. I discussed the case with the [facility] Hospitalist and they will evaluate for further inpatient care. Past Med/Surg History Problem List Acute on chronic diastolic HF (heart failure) Physical deconditioning CHF (congestive heart failure) (Acute) Orthostatic hypotension (Acute) Dizziness on standing Pneumonia Chronic diastolic congestive heart failure Autonomic dysfunction Autonomic postural hypotension Hyponatremia Positional lightheadedness JUWAN (acute kidney injury) (Acute) Leukocytosis (Acute) Cirrhosis Dehydration (Acute) Dizziness (Acute) COVID-19 Depression Hypertension, essential Dizziness (Acute) Generalized weakness (Acute) COVID-19 (Acute) Generalized weakness (Acute) Leukocytosis (Acute) Fever (Acute) Acute exacerbation of CHF (congestive heart failure) (Acute) Shortness of breath (Acute) Bilateral edema of lower extremity (Acute) Recent weight gain (Acute) Hypomagnesemia (Acute) Acute on chronic heart failure with preserved ejection fraction (HFpEF) Chest pressure (Acute) Acute exacerbation of CHF (congestive heart failure) (Acute) Multiple rib fractures (Acute) History of cholecystectomy Previous back surgery Rib pain (Acute 09/10/10) Subacute bacterial endocarditis (Acute 09/24/10) Medical History Anemia Cirrhosis H/O endocarditis DMII (diabetes mellitus, type 2) CKD (chronic kidney disease), stage III Hypertensive urgency Acute decompensated heart failure Opioid type dependence, unspecified Social History Smoking Status: Former smoker Tobacco Type: Cigarettes Cigarettes Per Day: 15; Second Hand Exposure: No; Do You Dip or Chew Tobacco: No; Hx Alcohol Use: No Hx Substance Use: No Preferred Language: Setswana Communication Ability: Effective Supervisor Lending Activities Required: No Beliefs That Will Affect Care: None marital status: Current Living Situation: Spouse Current Living Situation Comment: lives in two story home with Feels Safe at Home: Yes Safety Concerns: Feels Safe At This Time Assistive Devices: Denture - Upper Allergies Allergies Allergy/AdvReac Type Severity Reaction Status Date / Time lisinopril Allergy Dizziness Verified 07/25/24 22:46 losartan Allergy Dizziness Verified 07/25/24 22:46 Home Meds Home Medications Medication Instructions Recorded Confirmed oxycodone 10 mg tablet 10 mg PO QID 01/02/22 07/25/24 sodium chloride 1,000 mg soluble 1 g PO BID 05/17/24 07/25/24 tablet diphenhydramine 25 1 tab PO HS 07/25/24 07/25/24 mg-acetaminophen 500 mg tablet (Tylenol PM Extra Strength) montelukast 10 mg tablet 10 mg PO DAILY 07/25/24 07/25/24 Results & Data (ED) Vital Signs Vital Signs - 24 hr 07/25/24 20:21 07/25/24 21:20 07/25/24 21:20 Temperature 36.7 C Temperature Source Temporal Artery Scan Pulse Rate 76 77 Pulse Rate [Apical] Pulse Rate from SpO2 Sensor Respiratory Rate 16 Respiratory Effort / Characteristics Respiratory Depth Respiratory Pattern Blood Pressure 191/70 H Blood Pressure [Right Arm] Blood Pressure Mean 110 Blood Pressure Mean [Right Arm] Pulse Oximetry 96 97 Oxygen Delivery Method Room Air Room Air Sepsis Recent Fever Within 48 Hours No Sepsis New/Unexplained Change in Mental Status No Sepsis Action Taken by Nursing No Action Required 07/25/24 21:20 07/25/24 21:20 07/25/24 22:00 Temperature Temperature Source Pulse Rate 77 Pulse Rate [Apical] 77 Pulse Rate from SpO2 Sensor 72 Respiratory Rate 16 22 Respiratory Effort / Characteristics Non-Labored Spontaneous Respiratory Depth Normal Respiratory Pattern Regular Blood Pressure 171/81 H Blood Pressure [Right Arm] 169/77 H Blood Pressure Mean 111 Blood Pressure Mean [Right Arm] 107 Pulse Oximetry 97 97 97 Oxygen Delivery Method Room Air Room Air Room Air Sepsis Recent Fever Within 48 Hours Sepsis New/Unexplained Change in Mental Status Sepsis Action Taken by Nursing 07/25/24 22:30 07/25/24 23:00 07/25/24 23:31 Temperature Temperature Source Pulse Rate 78 78 78 Pulse Rate [Apical] Pulse Rate from SpO2 Sensor 78 88 Respiratory Rate 20 22 26 H Respiratory Effort / Characteristics Respiratory Depth Respiratory Pattern Blood Pressure 116/80 169/69 H 164/65 H Blood Pressure [Right Arm] Blood Pressure Mean 92 102 76 Blood Pressure Mean [Right Arm] Pulse Oximetry 95 94 95 Oxygen Delivery Method Room Air Room Air Room Air Sepsis Recent Fever Within 48 Hours Sepsis New/Unexplained Change in Mental Status Sepsis Action Taken by Nursing 07/26/24 00:00 07/26/24 00:30 07/26/24 01:00 Temperature Temperature Source Pulse Rate 79 80 79 Pulse Rate [Apical] Pulse Rate from SpO2 Sensor Respiratory Rate 22 24 24 Respiratory Effort / Characteristics Respiratory Depth Respiratory Pattern Blood Pressure 160/73 H 171/88 H 174/93 H Blood Pressure [Right Arm] Blood Pressure Mean 103 134 140 Blood Pressure Mean [Right Arm] Pulse Oximetry 95 95 94 Oxygen Delivery Method Room Air Room Air Room Air Sepsis Recent Fever Within 48 Hours Sepsis New/Unexplained Change in Mental Status Sepsis Action Taken by Nursing 07/26/24 01:19 Temperature Temperature Source Pulse Rate 81 Pulse Rate [Apical] Pulse Rate from SpO2 Sensor Respiratory Rate Respiratory Effort / Characteristics Respiratory Depth Respiratory Pattern Blood Pressure Blood Pressure [Right Arm] Blood Pressure Mean Blood Pressure Mean [Right Arm] Pulse Oximetry Oxygen Delivery Method Sepsis Recent Fever Within 48 Hours Sepsis New/Unexplained Change in Mental Status Sepsis Action Taken by Nursing Laboratory Data 07/26/24 05:57 07/26/24 05:57 Lab Results 07/25/24 07/25/24 Range/Units 20:59 21:04 WBC 12.50 H (4.8-10.8) K/ul RBC 3.84 L (4.70-6.10) M/uL Hgb 13.0 L (14.0-18.0) g/dl Hct 38.3 L (42.0-52.0) % MCV 99.7 (80.0-100.0) fL MCH 33.9 (25.0-34.0) pg MCHC 33.9 (32.0-36.0) g/dL RDW Std Deviation 51.8 H (36.4-46.3) fL RDW Coeff of Marjorie 14.2 (11.5-14.5) % Plt Count 204 (130-400) K/uL MPV 11.5 (9.4-12.4) fL Immature Gran % (Auto) 0.3 % Neut % (Auto) 64.7 % Lymph % (Auto) 21.8 % [place] % (Auto) 7.8 % Eos % (Auto) 4.8 % Baso % (Auto) 0.6 % Neut # (Auto) 8.08 H (1.40-6.50) K/uL Lymph # (Auto) 2.73 (1.20-3.40) K/uL [place] # (Auto) 0.97 H (0.11-0.59) K/uL Eos # (Auto) 0.60 H (0.00-0.50) K/uL Baso # (Auto) 0.08 (0.00-0.20) K/uL Immature Gran # (Auto) 0.04 (0.01-0.20) K/uL PT 11.8 (9.0-12.0) Seconds INR 1.1 (0.9-1.1) APTT 29 (21-31) Seconds PTT Ratio 1.1 Sodium 136 (136-145) mmol/L Potassium 4.5 (3.5-5.1) mmol/L Chloride 108 H (98-107) mmol/L Carbon Dioxide 27 (21-32) mmol/L Anion Gap 1 L (3-11) BUN 24 H (6-23) mg/dl Creatinine 1.19 (0.6-1.4) mg/dl Est Cr Clr Drug Dosing Not Reportable eGFR 63.31 BUN/Creatinine Ratio 20.2 H (10-20) Glucose 125 H (70-99(Fasting)) mg/dl Calcium 8.2 L (8.6-10.3) mg/dl Magnesium 1.8 (1.7-2.4) mg/dl Total Bilirubin 1.0 (0.2-1.0) mg/dl AST 53 H (13-39) U/L ALT 28 (7-52) U/L Alkaline Phosphatase 275 H (34-104) U/L Troponin I High Sens 14.1 (0-20) pg/ml B-Natriuretic Peptide 373 H (0-100) pg/ml Total Protein 7.3 (6.0-8.3) gm/dl Albumin 2.5 L (3.4-5.0) gm/dl Globulin 4.8 H (2.5-4.0) gm/dl Albumin/Globulin Ratio 0.5 L (0.9-2) SARS-CoV-2 (PCR) NEGATIVE (Negative) Influenza Type A (PCR) Negative (Neg) Influenza Type B (PCR) Negative (Neg) RSV (RT-PCR) Negative (Neg) Administered Medications Acetaminophen (Acetaminophen 500 Mg Tab) 500 mg PO Q6H PRN PRN Reason: fever/pain Stop: 08/25/24 01:48 Last Admin: 07/26/24 08:10 Dose: 500 mg Documented By: EP Enoxaparin Sodium (Enoxaparin Inj 40 Mg/0.4 Ml Syr) 40 mg SQ QAM [facility] Stop: 08/25/24 08:59 Last Admin: 07/26/24 08:11 Dose: 40 mg Documented By: EP Montelukast Sodium (Montelukast Sodium 10 Mg Tablet) 10 mg PO DAILY [facility] Stop: 08/25/24 08:59 Last Admin: 07/26/24 08:15 Dose: 10 mg Documented By: EP Ondansetron HCl (Ondansetron Inj 2 Mg/Ml 2 Ml Vial) 4 mg IV Q6H PRN PRN Reason: Nausea And Vomiting Stop: 08/25/24 08:45 Last Admin: 07/26/24 11:13 Dose: 4 mg Documented By: EP Oxycodone HCl (Oxycodone Hcl Ir 5 Mg Tab (Immediate Release)) 10 mg PO QID KARLO Stop: 08/09/24 08:59 Last Admin: 07/26/24 17:50 Dose: 10 mg Documented By: Admin: 07/26/24 13:14 Dose: 10 mg Documented By: Admin: 07/26/24 08:15 Dose: 10 mg Documented By: EP Discontinued Medications Furosemide (Furosemide 40 Mg/4 Ml Vial) 40 mg IV ONE STA Stop: 07/26/24 01:05 Last Admin: 07/26/24 01:25 Dose: 40 mg Documented By: JOAO Furosemide (Furosemide 40 Mg/4 Ml Vial) 40 mg IV ONE ONE Stop: 07/26/24 08:01 Last Admin: 07/26/24 08:11 Dose: 40 mg Documented By: CASSIDY Insulin Aspart (Insulin Aspart Per Unit Charge) 0 units SC ACHS KARLO Stop: 08/25/24 02:58 Last Admin: 07/26/24 17:50 Dose: Not Given Documented By: Admin: 07/26/24 12:41 Dose: Not Given Documented By: Admin: 07/26/24 08:09 Dose: Not Given Documented By: Admin: 07/26/24 03:15 Dose: Not Given Documented By: CAT Metoprolol Tartrate (Metoprolol Tartrate 25 Mg Tab) 12.5 mg PO BID KARLO Stop: 08/25/24 06:59 Last Admin: 07/26/24 08:12 Dose: Not Given Documented By: CASSIDY Oxycodone HCl (Oxycodone Hcl Ir 5 Mg Tab (Immediate Release)) 10 mg PO NOW STA Stop: 07/26/24 02:27 Last Admin: 07/26/24 03:02 Dose: 10 mg Documented By: [facility] Imaging Data Radiologist's Impression: Chest X-Ray 07/25/24 20:24 Exam(s): XR CXR 1 VIEW EXAM: XR Chest, 1 View CLINICAL HISTORY: Reason for exam: Chest pain, nonspecific. TECHNIQUE: Frontal view of the chest. COMPARISON: Chest x-ray: 05/17/2024 there is mild cardiomegaly. FINDINGS: Lungs: There is mild lower lobe interstitial thickening and subsegmental atelectasis. Pleural space: There is mild blunting of the costophrenic angles suggestive of small pleural effusions. No pneumothorax. Heart: Unremarkable. No cardiomegaly. Mediastinum: Cardial mediastinal silhouette is unremarkable for portable AP technique. Bones/joints: There are chronic healed posterior sixth, seventh and eighth right-sided rib fractures. IMPRESSION: 1. There is mild lower lobe interstitial thickening and subsegmental atelectasis. 2. There is mild blunting of the costophrenic angles suggestive of small pleural effusions. Electronically signed by: Kalpesh Jennings MD 07/25/24 23:27 PM Discharge Plan Visit Data Chief Complaint: Cardiac Assessment Stated Complaint: REF BY DOC,HEART FAILURE ED Provider: Brandy Palacios Discharge Problem: CHF (congestive heart failure) Patient Disposition: Admitted As Inpatient Condition: Serious Discharge Instructions Interventions: ED Discharge Assessment Last Done: 07/26/24 02:30
[2024-07-26 06:31] LABS: Basophils # (auto) 0.06 K/uL (0.00-0.20); Basophils % (auto) 0.6 %; Eosinophils # (auto) 0.65 K/uL (0.00-0.50); Eosinophils % (auto) 6.1 %; Hematocrit (blood only) 34.3 % (42.0-52.0); Hemoglobin 12.1 g/dl (14.0-18.0); Immature Granulocytes # (auto) 0.03 K/uL (0.01-0.20); Immature Granulocytes % (auto) 0.3 %; Lymphocytes # (auto) 2.45 K/uL (1.20-3.40); Lymphocytes % (auto) 23.1 %; Mean Corpuscular Hemoglobin 34.3 pg (25.0-34.0); Mean Corpuscular Hgb Conc 35.3 g/dL (32.0-36.0); Mean Corpuscular Volume 97.2 fL (80.0-100.0); Mean Platelet Volume 11.5 fL (9.4-12.4); Monocytes # (auto) 1.12 K/uL (0.11-0.59); Monocytes % (auto) 10.6 %; Neutrophils # (auto) 6.29 K/uL (1.40-6.50); Neutrophils % (auto) 59.3 %; Platelet Count 172 K/uL (130-400); RDW Coefficient of Variation 14.1 % (11.5-14.5); RDW Standard Deviation 50.4 fL (36.4-46.3); Red Blood Count 3.53 M/uL (4.70-6.10)
[2024-07-26 06:53] LABS: BUN Creatinine Ratio 21.4 (10-20); Creatinine Clr Calc Pharmacy 60.4 ml/min
[2024-07-26] MEDS: ACETAMINOPHEN 500 MG TAB PO PRN (08:10)
[2024-07-26] MEDS: FUROSEMIDE 40 MG/4 ML VIAL IV ONE (08:11)
[2024-07-26] MEDS: ENOXAPARIN INJ 40 MG/0.4 ML SYR SQ SCH (08:11)
[2024-07-26] MEDS: METOPROLOL TARTRATE 25 MG TAB PO SCH (08:12)
[2024-07-26] MEDS: MONTELUKAST SODIUM 10 MG TABLET PO SCH (08:15)
[2024-07-26] MEDS: oxyCODONE HCL IR 5 MG TAB (IMMEDIATE RELEASE) PO SCH (08:15)
--- NOTE | 2024-07-26 08:54 | Cardiology Consultation ---
Date of Consultation July 26, 2024 Assessment & Plan (1) Acute on chronic diastolic HF (heart failure): (2) Cirrhosis: (3) Autonomic postural hypotension: Plan Assessment: 74 year old male admitted for 1 week history of abdominal bloating and weight gain, suggestive of an acute on chronic HF exacerbation. Cardiology requested for assessment and plan Plan: 1. Acute on Chronic Diastolic heart failure: 2. Known Non-alcholol induced Cirrhosis -Patient admitted with concerns of abdominal distension, sudden weight gain and chest xray suggestive of mild bilateral pleural effusions. -Received IV lasix in the ER and again this morning. Diuresing well -2500ml fluid balance -Patient appears euvolemic on exam today, Nephrology on consult and given + Autonomic postural hypotension that have asked that further Lasix be held at this time. Appreciate recommendations. -ABG and Chest CT has been ordered to investigate other etiologies of his dyspnea on exertion. 3. Autonomic postural hypotension: -Nephrology on consult. home blood pressure readings consistently with a 50pt drop -Further lasix on hold -Continued recommendations per nephrology. Case has been discussed with Dr. Sumner. Further recommendations regarding plan of care as per his assessment. I spent a total of 40 minutes on the date of service in preparation, delivery, documentation of the care provided to the patient excluding any time spent in the performance of separately billed services. TERRELL Reynolds [facility] Cardiology [facility] Supervising Physician Co-Signing Physician Notes Patient was seen and examined, chart, medications, telemetry reviewed. Full assessment and plan as outlined by advanced provider above. Care and management discussed personally and endorsed. 74-year-old male with chronic diastolic heart failure. Course complicated by chronic autonomic postural hypotension, hospitalization in February 2024 with acute COVID pneumonitis. Presents now noting recent change in functional capacity with increasing dyspnea and approximately 10 pound weight gain increased abdominal girth. Findings consistent with acute on chronic diastolic heart failure. Patient responding to IV diuretics and now appears approaching euvolemic by exam EKG with sinus rhythm with ventricular ectopy and couplets. No acute ST segment changes Plan: As outlined. Will hold further furosemide given quick prompt response and past history of hypotension, orthostatic Repeat EKG today History of Present Illness Reason for Consultation: CHF Requesting Physician: [facility] hospitalist Attending Physician: Rosanne Fonseca MD History of Present Illness HPI: Patient is a 74 year old male with PMHx as noted below presents to the ER with acute concerns of worsening dyspnea on exertion and abdominal distension with 10 lbs weight gain over the past week. Upon examination today he is resting comfortably in bed feeling better. Patient received a one time dose of IV Lasix 40mg in the ER last night and has received a dose of lasix 40mg IV this AM. Reports that his abdominal bloating has decreased. Denies any chest pain, pressure or palpitations, no shortness of breath, no PND, no pre-syncope, syncope or edema Cardiac Problem List: 1. Hypertensive heart disease 2. Chronic heart failure with preserved ejection fraction 3. CKD stage 3 4. Hepatic cirrhosis 5. Moderate Aortic valve stenosis 6. DM Type II 7. Hx of COVID 02/2024 complicated by pneumonia 03/2024 EKG on admission SR with PVC/couplet Rate 81bpm QT interval 464ms Chest xray suggestive of small pleural effusions. Abdominal US: IMPRESSION: 1. Mild splenomegaly. 2. The liver show irregular nodular border, measures 13.78 cm in maximum. Unchanged. 3. No free fluid or ascites in the scanned sections. Stable. 4. Mild urinary bladder wall thickening, could be cystitis; clinical correlation is needed. -2500ml fluid balance Allergies Allergy/AdvReac Type Severity Reaction Status Date / Time lisinopril Allergy Dizziness Verified 07/25/24 22:46 losartan Allergy Dizziness Verified 07/25/24 22:46 Home Medications Medication Instructions Recorded Confirmed Type oxycodone 10 mg tablet 10 mg PO QID 01/02/22 07/25/24 History sodium chloride 1,000 mg soluble 1 g PO BID 05/17/24 07/25/24 History tablet diphenhydramine 25 1 tab PO HS 07/25/24 07/25/24 History mg-acetaminophen 500 mg tablet (Tylenol PM Extra Strength) montelukast 10 mg tablet 10 mg PO DAILY 07/25/24 07/25/24 History Patient History Medical History Anemia Cirrhosis H/O endocarditis DMII (diabetes mellitus, type 2) CKD (chronic kidney disease), stage III Hypertensive urgency Acute decompensated heart failure Opioid type dependence, unspecified Social History Smoking Status: Former smoker Tobacco Type: Cigarettes Cigarettes Per Day: 15; Second Hand Exposure: No; Do You Dip or Chew Tobacco: No; Hx Alcohol Use: No Hx Substance Use: No Preferred Language: Welsh Communication Ability: Effective Sociology Professor Required: No Beliefs That Will Affect Care: None marital status: Current Living Situation: Spouse Current Living Situation Comment: lives in two story home with Feels Safe at Home: Yes Safety Concerns: Feels Safe At This Time Assistive Devices: Denture - Upper Review of Systems Review of Systems: All systems reviewed & are unremarkable except as noted in HPI & below Physical Exam Constitutional: well developed and well nourished; no acute distress and not ill appearing Neck: normal visual inspection and trachea midline Respiratory: normal respiratory effort, lungs clear to auscultation Cardiovascular: Rate/Rhythm: regular rate and regular rhythm Heart Sounds: normal S1, normal S2 and + murmur (+1/6 late systolic) Vessels: dorsalis pedis pulses present; no JVD Extremities: no edema Skin: no rashes, warm and dry Psychiatric: A+Ox3, euthymic affect Results & Data Vital Signs (Past 12 Hours) Vital Signs Temp Pulse Pulse Resp BP BP Pulse Ox 07/26/24 07:04 36.9 C 70 17 126/46 L 95 07/26/24 03:34 78 07/26/24 03:33 36.9 C 67 20 169/63 H 94 07/26/24 03:05 07/26/24 03:05 36.9 C 67 20 169/63 H 94 07/26/24 02:23 82 18 165/54 H 94 07/26/24 01:49 94 07/26/24 01:19 81 07/26/24 01:00 79 24 174/93 H 94 07/26/24 00:30 80 24 171/88 H 95 07/26/24 00:00 79 22 160/73 H 95 07/25/24 23:31 78 26 H 164/65 H 95 07/25/24 23:00 78 22 169/69 H 94 07/25/24 22:30 78 20 116/80 95 07/25/24 22:00 77 22 171/81 H 97 07/25/24 21:20 97 07/25/24 21:20 77 16 169/77 H 97 07/25/24 21:20 97 07/25/24 21:20 77 O2 Del Method 07/26/24 07:04 Room Air 07/26/24 03:34 07/26/24 03:33 Room Air 07/26/24 03:05 Room Air 07/26/24 03:05 Room Air 07/26/24 02:23 Room Air 07/26/24 01:49 Room Air 07/26/24 01:19 07/26/24 01:00 Room Air 07/26/24 00:30 Room Air 07/26/24 00:00 Room Air 07/25/24 23:31 Room Air 07/25/24 23:00 Room Air 07/25/24 22:30 Room Air 07/25/24 22:00 Room Air 07/25/24 21:20 Room Air 07/25/24 21:20 Room Air 07/25/24 21:20 Room Air 07/25/24 21:20 Laboratory Results Cardiac Enzymes 07/25/24 07/25/24 Range/Units 20:59 21:04 AST 53 H (13-39) U/L Troponin I High Sens 14.1 (0-20) pg/ml B-Natriuretic Peptide 373 H (0-100) pg/ml Coagulation 07/25/24 07/25/24 Range/Units 20:59 21:04 PT 11.8 (9.0-12.0) Seconds APTT 29 (21-31) Seconds B-Natriuretic Peptide 373 H (0-100) pg/ml CBC 07/25/24 07/26/24 Range/Units 20:59 05:57 WBC 12.50 H 10.60 (4.8-10.8) K/ul RBC 3.84 L 3.53 L (4.70-6.10) M/uL Hgb 13.0 L 12.1 L (14.0-18.0) g/dl Hct 38.3 L 34.3 L (42.0-52.0) % Plt Count 204 172 (130-400) K/uL Neut # (Auto) 8.08 H 6.29 (1.40-6.50) K/uL Lymph # (Auto) 2.73 2.45 (1.20-3.40) K/uL [place] # (Auto) 0.97 H 1.12 H (0.11-0.59) K/uL Eos # (Auto) 0.60 H 0.65 H (0.00-0.50) K/uL Baso # (Auto) 0.08 0.06 (0.00-0.20) K/uL Comprehensive Metabolic Panel 07/25/24 07/26/24 Range/Units 20:59 05:57 Sodium 136 138 (136-145) mmol/L Potassium 4.5 4.0 (3.5-5.1) mmol/L Chloride 108 H 108 H (98-107) mmol/L Carbon Dioxide 27 28 (21-32) mmol/L BUN 24 H 25 H (6-23) mg/dl Creatinine 1.19 1.17 (0.6-1.4) mg/dl Glucose 125 H 100 H (70-99(Fasting)) mg/dl Calcium 8.2 L 8.0 L (8.6-10.3) mg/dl AST 53 H (13-39) U/L ALT 28 (7-52) U/L Alkaline Phosphatase 275 H (34-104) U/L Total Protein 7.3 (6.0-8.3) gm/dl Albumin 2.5 L (3.4-5.0) gm/dl Intake and Output 07/25/24 07/26/24 07/26/24 22:59 06:59 14:59 Output Total 1700 / 1700 800 / 800 Balance -1700 / -1700 -800 / -800 Output: Urine 1700 / 1700 800 / 800 Other: Weight 89.3 kg Weight Measurement Method Standing Scale Diagnostic Findings Echocardiogram 03/02/2024 LVEF 60-64% LV wall motion is normal Moderate aortic valve sclerosis, aortic stenosis is absent Borderline posterior mitral leaflet prolapse Mild late systolic mitral regurg Mild tricuspid regurg No evidence of pulmonary HTN Echo report reviewed dated April 02, 2022 Interpretation Summary The examination is adequate to evaluate the referral indication. The qualitative LV ejection fraction is 55-59% (normal). The LV wall thickness is mildly increased (concentric). The left ventricular wall motion is normal. Mild mitral regurgitation is present. The left atrium is mildly enlarged (35-41 ml/m^2). The left ventricular diastolic function is mildly abnormal (grade I). Mild tricuspid regurgitation is present. Normal IVC size and collapsability with sniff indicates a normal right atrial pressure of 3 mmHg. The estimated pulmonary artery systolic pressure is 36 mm Hg. Echocardiogram January 02, 2022 [facility] Left ventricle is normal in size with mild left hypertrophy EF 50 to 55% Grade 2 diastolic dysfunction with mild left atrial enlargement Mild mitral and mild tricuspid insufficiency TR velocity 3.2 m/sec reflecting mild elevation in pulmonary pressures Chest CT January 01, 2022 Moderate cardiac enlargement with moderate coronary artery calcifications Chronic pleural thickening Nonspecific mediastinal and hilar lymphadenopathy
[2024-07-26 09:51] LABS: Appearance Urine Clear (Clear); Bacteria Urine Automated None Seen (None Seen); Bilirubin Urine Negative (Negative); Blood Urine Negative (Negative); Cast Urine Automated 0-2 /lpf (0-2); Color Urine Yellow; Epithelial Cell Urine Auto 0-2 /hpf (0-2); Glucose Urine UA Negative (Negative); Ketones Urine Negative (Negative); Leukocyte Esterase Urine Negative (Negative); Nitrite Urine Negative (Negative); Protein Urine 1+ (Negative); RBC Urine Automated 0-2 /hpf (0-2); Specific Gravity Urine 1.008 (1.000-1.030); Urobilinogen Urine Negative (Negative); WBC Urine Automated 0-5 /hpf (0-5); pH Urine 6.5 (4.5-7.5)
--- NOTE | 2024-07-26 10:03 | Electrocardiogram Report ---
Test Reason : Blood Pressure : */* mmHG Vent. Rate : 81 BPM Atrial Rate : 81 BPM P-R Int : 168 ms QRS Dur : 104 ms QT Int : 400 ms P-R-T Axes : 26 -23 23 degrees QTcB Int : 464 ms Sinus rhythm with frequent , and consecutive Premature ventricular complexes Moderate voltage criteria for LVH, may be normal variant ( R in aVL , Dre product ) Abnormal ECG When compared with ECG of 16-May-2024 22:43, Premature ventricular complexes are now Present Confirmed by Satinder Adhikari ([id number]) on 07/26/2024 10:02:52 AM Referred By: Jerzy Glez Confirmed By: Satinder Adhikari
[2024-07-26] MEDS: ONDANSETRON INJ 2 MG/ML 2 ML VIAL IV PRN (11:13)
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
--- NOTE | 2024-07-26 15:37 | Hospitalist Progress Note ---
Date of Service July 26, 2024 Assessment & Plan (1) CHF (congestive heart failure): Plan Pt is a 74yoM with PMHx significant for chronic diastolic heart failure (EF 60 %, TTE 2023), valvular heart disease (mild MR/TR), orthostatic hypotension on salt tablets, ILD, history endocarditis, DM2 diet-controlled, chronic anemia (baseline hemoglobin 11-12), NAFLD cirrhosis, prostate cancer, chronic back pain on narcotics, past tobacco abuse who presents with concern for SOB, increased abdominal girth and hypoxia at home. 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 Lovenox subcu Full code Admission and Anticipated Discharge Date Admission Date: July 26, 2024 Subjective pt was seen in the AM laying in bed AAOx3 Stated that his SOB was improving Review of Systems Review of Systems: All systems reviewed & are unremarkable except as noted in Subjective Physical Exam Physical Exam: General: Alert, orientedx3. No acute distress HEENT: NC/AT CV: RRR Resp: Breath sounds clear bilaterally, no increased effort of breathing Abdomen: Soft, nontender Extremities: edema in lower extremities bilaterally. Results & Data Results & Data Vital Signs (Past 12 Hours) Vital Signs Temp Pulse Pulse Resp BP Pulse Ox Pulse Ox 07/26/24 14:40 71 07/26/24 11:28 36.6 C 59 L 18 125/53 L 93 07/26/24 09:38 07/26/24 09:38 61 07/26/24 08:00 95 07/26/24 07:04 36.9 C 70 17 126/46 L 95 O2 Del Method O2 Del Method 07/26/24 14:40 07/26/24 11:28 Room Air 07/26/24 09:38 Room Air 07/26/24 09:38 07/26/24 08:00 Room Air 07/26/24 07:04 Room Air Diagnostic Findings Chest X-Ray 07/25/24 20:24 Exam(s): XR CXR 1 VIEW EXAM: XR Chest, 1 View CLINICAL HISTORY: Reason for exam: Chest pain, nonspecific. TECHNIQUE: Frontal view of the chest. COMPARISON: Chest x-ray: 05/17/2024 there is mild cardiomegaly. FINDINGS: Lungs: There is mild lower lobe interstitial thickening and subsegmental atelectasis. Pleural space: There is mild blunting of the costophrenic angles suggestive of small pleural effusions. No pneumothorax. Heart: Unremarkable. No cardiomegaly. Mediastinum: Cardial mediastinal silhouette is unremarkable for portable AP technique. Bones/joints: There are chronic healed posterior sixth, seventh and eighth right-sided rib fractures. IMPRESSION: 1. There is mild lower lobe interstitial thickening and subsegmental atelectasis. 2. There is mild blunting of the costophrenic angles suggestive of small pleural effusions. Electronically signed by: Kalpesh Jennings MD 07/25/24 23:27 PM Abdomen Ultrasound 07/26/24 01:49 EXAM: US abdomen ltd ascites CLINICAL HISTORY: abd distension. TECHNIQUE: Ultrasound examination of the RUQ was performed using a [high-frequency transducer]. Scanning was performed with the patient in supine position. COMPARISON: prior CT 04/08/2024. FINDINGS: No evidence of ascites. Liver: The liver show an irregular nodular border, multiple measurement of size were taken 13.78 cm in maximum. No evidence of focal lesions, cysts, or masses. Spleen: Enalrged meausres 15.1 cm. Bladder: Mild urinary bladder wall thickening, could be cystitis; clinical correlation is needed. No evidence of bladder masses, or intraluminal stones. No free fluid or ascites in the scanned sections. IMPRESSION: 1. Mild splenomegaly. 2. The liver show irregular nodular border, measures 13.78 cm in maximum. Unchanged. 3. No free fluid or ascites in the scanned sections. Stable. 4. Mild urinary bladder wall thickening, could be cystitis; clinical correlation is needed. Electronically signed by Nguyễn Rae 07-26-2024 03:42 AM
[2024-07-26 19:12] LABS: Base Excess VBG 5.8 mEq/L; HCO3 VBG 31 mmol/L; Oxygen Saturation VBG < 60.0 %; PCO2 VBG 44 mmHg (38-50); PO2 VBG 30 mmHg; pH VBG 7.45 (7.36-7.41)
[2024-07-26] MEDS: OPTIRAY 320 125ml IV ONE (20:10)
--- NOTE | 2024-07-27 00:14 | CT Scan Report ---
Exam(s): CTA CHEST IV Amt: 115 ml optiray 320 EXAM: CT Angiography Chest With Intravenous Contrast CLINICAL HISTORY: PE. TECHNIQUE: Axial computed tomographic angiography images of the chest with intravenous contrast. CTDI is 26.32 mGy and DLP is 813.1 mGy-cm. Automated exposure control was utilized for the study. A dose lowering technique was utilized adhering to the principles of ALARA. 3D and MIP reconstructed images were created and reviewed. COMPARISON: Chest x-ray 07/25/2024, CTA chest 04/07/2024. FINDINGS: Pulmonary arteries: No pulmonary embolism. Aorta: No thoracic aortic aneurysm or dissection. Lungs: Interval increase in bilateral diffuse peripheral interstitial prominence with interlobular septal thickening. No focal lobar consolidation. Unchanged scattered nodular densities, largest in the lingula 5.8 mm. Pleural space: Unchanged mild bilateral pleural thickening with scattered pleural calcifications greatest dependently. No pleural effusion. No pneumothorax. Heart: Mild cardiomegaly. No pericardial effusion. No evidence of RV dysfunction. Coronary artery calcifications. Bones/joints: No acute fracture. Old right rib fractures. Degenerative changes of the spine. Soft tissues: Unremarkable. Lymph nodes: Unremarkable. No enlarged lymph nodes. Abdomen: Unchanged lobular liver margins suggesting cirrhosis. Status post cholecystectomy. Mild splenomegaly 13.4 cm length. IMPRESSION: No pulmonary embolism. Interval increase in bilateral diffuse peripheral interstitial prominence with interlobular septal thickening. No focal lobar consolidation. Unchanged scattered nodular densities, largest in the lingula 5.8 mm. Otherwise no change. Electronically signed by: Gustavo De Guzman M.D. 07/27/24 00:13 AM
[2024-07-27] MEDS: COSYNTROPIN 250 MCG in SYRINGE 4 ML IV ONE (07:50)
[2024-07-27 08:30] LABS: Albumin Globulin Ratio 0.5 (0.9-2); BUN Creatinine Ratio 21.3 (10-20); Bilirubin,Total 1.5 mg/dl (0.2-1.0); Calcium 7.8 mg/dl (8.6-10.3); Creatinine Clr Calc Pharmacy 47.1 ml/min; Globulin 4.1 gm/dl (2.5-4.0); Magnesium 1.8 mg/dl (1.7-2.4); Phosphorus 3.7 mg/dl (2.5-4.9); Potassium 4.6 mmol/L (3.5-5.1); Total Protein 6.1 gm/dl (6.0-8.3)
--- NOTE | 2024-07-27 08:44 | Hospitalist Progress Note ---
Date of Service July 27, 2024 Assessment & Plan (1) CHF (congestive heart failure): Plan Pt is a 74yoM with PMHx significant for chronic diastolic heart failure (EF 60 %, TTE 2023), valvular heart disease (mild MR/TR), orthostatic hypotension on salt tablets, ILD, history endocarditis, DM2 diet-controlled, chronic anemia (baseline hemoglobin 11-12), NAFLD cirrhosis, prostate cancer, chronic back pain on narcotics, past tobacco abuse who presents with concern for SOB, increased abdominal girth and hypoxia at home. 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, currently on hold Following with Nephrology and Neurology as an outpt Nephrology consulted given hold on salt tabs, appreciate recs History of ILD CTA chest with "...Interval increase in bilateral diffuse peripheral interstitial prominence with interlobular septal thickening..." VBG unremarkable Pulmonology consulted, appreciate recs not in acute exacerbation Chronic Medical Problems: hx valvular 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 Lovenox subcu Full code Admission and Anticipated Discharge Date Admission Date: July 26, 2024 Subjective Pt was seen laying in bed States he feels weak Still having SOB though he notes it is improved and abdominal girth Review of Systems Review of Systems: All systems reviewed & are unremarkable except as noted in Subjective Physical Exam Physical Exam: General: Alert, orientedx3. No acute distress HEENT: NC/AT CV: RRR Resp: Breath sounds clear bilaterally, no increased effort of breathing Abdomen: Soft, nontender Extremities: edema in lower extremities bilaterally. Results & Data Results & Data Vital Signs (Past 12 Hours) Vital Signs Temp Pulse Pulse Resp BP BP Pulse Ox 07/27/24 07:10 37.3 C 66 18 127/52 L 94 07/27/24 04:02 36.7 C 65 18 118/37 L 92 07/27/24 00:48 36.7 C 71 18 122/63 93 07/26/24 22:29 76 07/26/24 21:00 O2 Del Method 07/27/24 07:10 Room Air 07/27/24 04:02 Room Air 07/27/24 00:48 Room Air 07/26/24 22:29 07/26/24 21:00 Room Air Diagnostic Findings Chest X-Ray 07/25/24 20:24 Exam(s): XR CXR 1 VIEW EXAM: XR Chest, 1 View CLINICAL HISTORY: Reason for exam: Chest pain, nonspecific. TECHNIQUE: Frontal view of the chest. COMPARISON: Chest x-ray: 05/17/2024 there is mild cardiomegaly. FINDINGS: Lungs: There is mild lower lobe interstitial thickening and subsegmental atelectasis. Pleural space: There is mild blunting of the costophrenic angles suggestive of small pleural effusions. No pneumothorax. Heart: Unremarkable. No cardiomegaly. Mediastinum: Cardial mediastinal silhouette is unremarkable for portable AP technique. Bones/joints: There are chronic healed posterior sixth, seventh and eighth right-sided rib fractures. IMPRESSION: 1. There is mild lower lobe interstitial thickening and subsegmental atelectasis. 2. There is mild blunting of the costophrenic angles suggestive of small pleural effusions. Electronically signed by: Kalpesh Jennings MD 07/25/24 23:27 PM Abdomen Ultrasound 07/26/24 01:49 EXAM: US abdomen ltd ascites CLINICAL HISTORY: abd distension. TECHNIQUE: Ultrasound examination of the RUQ was performed using a [high-frequency transducer]. Scanning was performed with the patient in supine position. COMPARISON: prior CT 04/08/2024. FINDINGS: No evidence of ascites. Liver: The liver show an irregular nodular border, multiple measurement of size were taken 13.78 cm in maximum. No evidence of focal lesions, cysts, or masses. Spleen: Enalrged meausres 15.1 cm. Bladder: Mild urinary bladder wall thickening, could be cystitis; clinical correlation is needed. No evidence of bladder masses, or intraluminal stones. No free fluid or ascites in the scanned sections. IMPRESSION: 1. Mild splenomegaly. 2. The liver show irregular nodular border, measures 13.78 cm in maximum. Unchanged. 3. No free fluid or ascites in the scanned sections. Stable. 4. Mild urinary bladder wall thickening, could be cystitis; clinical correlation is needed. Electronically signed by Nguyễn Rae 07-26-2024 03:42 AM Chest CTA 07/26/24 18:55 Exam(s): CTA CHEST IV Amt: 115 ml optiray 320 EXAM: CT Angiography Chest With Intravenous Contrast CLINICAL HISTORY: PE. TECHNIQUE: Axial computed tomographic angiography images of the chest with intravenous contrast. CTDI is 26.32 mGy and DLP is 813.1 mGy-cm. Automated exposure control was utilized for the study. A dose lowering technique was utilized adhering to the principles of ALARA. 3D and MIP reconstructed images were created and reviewed. COMPARISON: Chest x-ray 07/25/2024, CTA chest 04/07/2024. FINDINGS: Pulmonary arteries: No pulmonary embolism. Aorta: No thoracic aortic aneurysm or dissection. Lungs: Interval increase in bilateral diffuse peripheral interstitial prominence with interlobular septal thickening. No focal lobar consolidation. Unchanged scattered nodular densities, largest in the lingula 5.8 mm. Pleural space: Unchanged mild bilateral pleural thickening with scattered pleural calcifications greatest dependently. No pleural effusion. No pneumothorax. Heart: Mild cardiomegaly. No pericardial effusion. No evidence of RV dysfunction. Coronary artery calcifications. Bones/joints: No acute fracture. Old right rib fractures. Degenerative changes of the spine. Soft tissues: Unremarkable. Lymph nodes: Unremarkable. No enlarged lymph nodes. Abdomen: Unchanged lobular liver margins suggesting cirrhosis. Status post cholecystectomy. Mild splenomegaly 13.4 cm length. IMPRESSION: No pulmonary embolism. Interval increase in bilateral diffuse peripheral interstitial prominence with interlobular septal thickening. No focal lobar consolidation. Unchanged scattered nodular densities, largest in the lingula 5.8 mm. Otherwise no change. Electronically signed by: Gustavo De Guzman M.D. 07/27/24 00:13 AM
[2024-07-27 08:49] LABS: Hematocrit (blood only) 34.1 % (42.0-52.0); Hemoglobin 11.8 g/dl (14.0-18.0); Mean Corpuscular Hemoglobin 33.9 pg (25.0-34.0); Mean Corpuscular Hgb Conc 34.6 g/dL (32.0-36.0); Platelet Count 187 K/uL (130-400); RDW Coefficient of Variation 14.4 % (11.5-14.5); RDW Standard Deviation 51.8 fL (36.4-46.3); Red Blood Count 3.48 M/uL (4.70-6.10); White Blood Count 11.65 K/ul (4.8-10.8)
--- NOTE | 2024-07-27 09:20 | Cardiology Progress Note ---
Date of Service July 27, 2024 Assessment & Plan (1) Acute on chronic diastolic HF (heart failure): (2) Cirrhosis: (3) Autonomic postural hypotension: Plan Assessment: 74 year old male admitted for 1 week history of abdominal bloating and weight gain, suggestive of an acute on chronic HF exacerbation. Cardiology requested for assessment and plan Plan: 1. Acute on Chronic Diastolic heart failure: 2. Known Non-alcholol induced Cirrhosis -Patient admitted with concerns of abdominal distension, sudden weight gain and chest xray suggestive of mild bilateral pleural effusions. -Received IV lasix in the ER and again this morning. Diuresing well -2500ml fluid balance -Patient appears euvolemic on exam today, Nephrology on consult and given + Autonomic postural hypotension that have asked that further Lasix be held at this time. Appreciate recommendations. -ABG and Chest CT has been ordered to investigate other etiologies of his dyspnea on exertion. 3. Autonomic postural hypotension: -Nephrology on consult. home blood pressure readings consistently with a 50pt d rop -Further lasix on hold -Continued recommendations per nephrology. 07/27/2024: -Patient demonstrates clinical improvement from a cardiac perspective. -1340 fluid balance. No weights for comparison -Maintain strict I&O and daily weights. -BP stable. -Patient is followed by Nephrology, appreciate further recommendations regarding dieretic with BP balance -Encourage patient to be out of bed and ambulating with assistance. PT eval if appropriate. -No further cardiac testing needed at this time. Cardiology will sign off, please reach out with any new acute questions/concerns Case has been discussed with Dr. Sumner. Further recommendations regarding plan of care as per his assessment. I spent a total of 30 minutes on the date of service in preparation, delivery, documentation of the care provided to the patient excluding any time spent in the performance of separately billed services. TERRELL Reynolds [facility] Cardiology [facility] Admission and Anticipated Discharge Date Admission Date: July 26, 2024 Supervising Physician Co-Signing Physician Notes Patient was seen and examined, chart, medications, telemetry reviewed. Full assessment and plan as outlined by advanced provider above. Care and management discussed personally and endorsed. 74-year-old male with chronic diastolic heart failure. Course complicated by chronic autonomic postural hypotension, hospitalization in February 2024 with acute COVID pneumonitis. Presents now noting recent change in functional capacity with increasing dyspnea and approximately 10 pound weight gain increased abdominal girth. Findings initially reported consistent with acute on chronic diastolic heart failure. Reported patient with brisk diuresis on initial IV diuretics administration. Abdominal girth distention and breathlessness improved. Laboratories today's today however demonstrate increased renal dysfunction. No overt orthostasis currently. Exam euvolemic Recommendations as above increase activity in hospital Subjective 07/27/24: Patient seen and examined in follow up today. Feeling well from a cardiac perspective. Offers no acute concerns. Labs, vitals, diagnostics, telemetry and documentation reviewed. Telemetry reviewed showing SR with occ. PVC rates 60-70bpm. No acute events overnight. Review of Systems Review of Systems: All systems reviewed & are unremarkable except as noted in HPI & below Physical Exam Constitutional: well developed and well nourished; no acute distress and not ill appearing Neck: normal visual inspection and trachea midline Respiratory: normal respiratory effort, lungs clear to auscultation Cardiovascular: Rate/Rhythm: regular rate and regular rhythm Heart Sounds: normal S1, normal S2 and + murmur (+1/6 late systolic) Vessels: dorsalis pedis pulses present; no JVD Extremities: no edema Skin: no rashes, warm and dry Psychiatric: A+Ox3, euthymic affect Results & Data Vital Signs (Past 12 Hours) Vital Signs Temp Pulse Pulse Resp BP BP Pulse Ox 07/27/24 07:10 37.3 C 66 18 127/52 L 94 07/27/24 04:02 36.7 C 65 18 118/37 L 92 07/27/24 00:48 36.7 C 71 18 122/63 93 07/26/24 22:29 76 O2 Del Method 07/27/24 07:10 Room Air 07/27/24 04:02 Room Air 07/27/24 00:48 Room Air 07/26/24 22:29 Laboratory Results Cardiac Enzymes 07/27/24 Range/Units 07:47 AST 45 H (13-39) U/L CBC 07/27/24 Range/Units 07:47 WBC 11.65 H (4.8-10.8) K/ul RBC 3.48 L (4.70-6.10) M/uL Hgb 11.8 L (14.0-18.0) g/dl Hct 34.1 L (42.0-52.0) % Plt Count 187 (130-400) K/uL Comprehensive Metabolic Panel 07/27/24 Range/Units 07:47 Sodium 136 (136-145) mmol/L Potassium 4.6 (3.5-5.1) mmol/L Chloride 107 (98-107) mmol/L Carbon Dioxide 25 (21-32) mmol/L BUN 32 H (6-23) mg/dl Creatinine 1.50 H D (0.6-1.4) mg/dl Glucose 90 (70-99(Fasting)) mg/dl Calcium 7.8 L (8.6-10.3) mg/dl AST 45 H (13-39) U/L ALT 25 (7-52) U/L Alkaline Phosphatase 234 H (34-104) U/L Total Protein 6.1 (6.0-8.3) gm/dl Albumin 2.0 L (3.4-5.0) gm/dl Intake and Output 07/26/24 07/27/24 07/27/24 22:59 06:59 14:59 Intake Total 960 / 1160 200 / 1160 Output Total 300 / 2500 350 / 2500 Balance 660 / -1340 -150 / -1340 Intake: Oral 960 / 1160 200 / 1160 Output: Urine 300 / 2500 350 / 2500
--- NOTE | 2024-07-27 13:08 | Pulmonary Consultation ---
Date of Consultation July 27, 2024 Assessment & Plan (1) ILD (interstitial lung disease): (2) NSIP (nonspecific interstitial pneumonia): (3) Abnormal chest CT: (4) COPD with emphysema: (5) Pleural plaque: (6) Acute on chronic diastolic HF (heart failure): Plan CT chest 07/26/2024 personally reviewed: Centrilobular emphysema appreciated bilaterally Diffuse groundglass opacities appreciated bilaterally more pronounced on the periphery Question mild bronchiectasis Multiple pulmonary nodules appreciated bilaterally Calcified pleural plaques appreciated bilaterally on the posterior side Cardiomegaly Minimal hilar and subcarinal lymphadenopathy 2D echo 03/02/2024: EF 50-55%, moderate aortic valve sclerosis, no stenosis, g rade 2 diastolic dysfunction, mild concentric LVH, mild MR, mild TR, RV normal in size and function --Exertional shortness of breath with abnormal chest CT/ILD Multifactorial > 90-[id number]-eghq smoking history Worked in [employer] with grade 2 diastolic dysfunction and elevated BNP No personal or family history of autoimmune disease like lupus, sarcoid, Sjogren's, rheumatoid No Raynaud's, no dry eyes, no dry mouth, no difficulty swallowing Negative for influenza A/B, RSV as well as COVID-19 on 07/25/2024 BNP 373 Based on the physical exam, CAT scan of the chest and history, I do think patient has ILD like picture which seems to be progressively getting worse compared to CAT scan of the chest 01/2023 I would order autoimmune work-up including SONYA with reflex, rheumatoid factor, anti-CCP, CRP, ESR, NICA I am also going to order hypersensitive pneumonia panel. High-resolution CAT as outpatient --COPD with emphysema Not on any inhalers at home Would recommend the patient to be on Stiolto or Anoro on discharge Will need full PFT as well as HRCT and pulmonary follow-up as an outpatient --Ex-smoker Approximately 22-[id number]-wvpo smoking history, quit around the age of 34 Encouraged to continue abstinence from smoking Patient with liver cirrhosis could have portal pulmonary hypertension which will give orthodeoxia. The latest 2D echo done February 2024 did not show any signs of pulmonary hypertension Plan: -2.7 L since coming to the hospital Based on the physical exam, CAT scan of the chest and history, I do think patient has ILD like picture which seems to be progressively getting worse compared to CAT scan of the chest 01/2023 I am going to order autoimmune workup to be done tomorrow along with hypersensitive pneumonitis panel Will start the patient on nebulized budesonide and Brovana while in the hospital. Given the significant somnolence during the day, I will order an ABG to be done in the morning. Plan was discussed with patient, patient's , RN as well as primary team Please note the above document was generated using voice recognition software. It may contain grammatical, syntax or spelling errors.Any formal questions or concerns about the content, text or information contained within the body of this dictation should be directly addressed to the provider for clarification. History of Present Illness Attending Physician: Rosanne Fonseca MD History of Present Illness 74-year-old male admitted to the hospital for shortness of breath Past medical history: HFpEF, orthostatic hypotension, history of endocarditis, nonalcoholic fatty liver disease, prostate cancer Pulmonary consulted for abnormal chest CT Patient's is in the room at the time of examination. Patient was sleeping when I entered the room but he was easily arousable. As per the he has been sleeping a lot lately. Does not have any snoring at night. She has not witnessed any apneic episodes when he sleeping. He has been having worsening shortness of breath in the recent week or 2. It is exertional. Denies any chest pain, no chest tightness, no wheezing, no diaphoresis at that time. Mostly huffing and puffing. Denies any significant coughing in the morning. No hemoptysis. Denies any unintentional weight loss. Patient is actually gained some weight recently No unusual headache or blurry vision No fever or chills No dysuria, no diarrhea. No personal or family history of autoimmune disease like lupus, sarcoid, Sjogren's, rheumatoid No Raynaud's, no dry eyes, no dry mouth, no difficulty swallowing No history of lung disease in the family that he knows of Social history: 07-lshy-hvin smoking history, quit around the age of 34, used to work in [employer] Pets: Dogs at home. No birds or poultry nearby, did not grow up on a farm No history of lung cancer in the family Allergies Allergy/AdvReac Type Severity Reaction Status Date / Time lisinopril Allergy Dizziness Verified 07/25/24 22:46 losartan Allergy Dizziness Verified 07/25/24 22:46 Home Medications Medication Instructions Recorded Confirmed Type oxycodone 10 mg tablet 10 mg PO QID 01/02/22 07/25/24 History sodium chloride 1,000 mg soluble 1 g PO BID 05/17/24 07/25/24 History tablet diphenhydramine 25 1 tab PO HS 07/25/24 07/25/24 History mg-acetaminophen 500 mg tablet (Tylenol PM Extra Strength) montelukast 10 mg tablet 10 mg PO DAILY 07/25/24 07/25/24 History Patient History Medical History Anemia Cirrhosis H/O endocarditis DMII (diabetes mellitus, type 2) CKD (chronic kidney disease), stage III Hypertensive urgency Acute decompensated heart failure Opioid type dependence, unspecified Social History Smoking Status: Former smoker Tobacco Type: Cigarettes Cigarettes Per Day: 15; Second Hand Exposure: No; Do You Dip or Chew Tobacco: No; Hx Alcohol Use: No Hx Substance Use: No Preferred Language: Kiswahili Communication Ability: Effective Senior Financial Consultant Required: No Beliefs That Will Affect Care: None marital status: Current Living Situation: Spouse Current Living Situation Comment: lives in two story home with Feels Safe at Home: Yes Safety Concerns: Feels Safe At This Time Assistive Devices: None Review of Systems 2 Review of Systems: All systems reviewed & are unremarkable except as noted in HPI & below Physical Exam 2 Physical Exam: Constitutional: No acute distress HEENT: EOMI, PERRLA Respiratory system: Decreased air entry bilaterally, no wheeze, no rhonchi, positive Velcro-like crackles appreciated bilaterally, more on the left side CVS: S1-S2 positive, +3 out of 6 systolic murmur appreciated best at aorta Abdomen: Soft, nontender, nondistended, positive bowel sounds x4 Extremities: +2 pulses bilaterally radialis/ dorsalis pedis, no cyanosis, m inimal pitting edema bilateral lower extremity, onychomycosis of the left thumb index and middle finger. No clubbing Neuro: Awake alert oriented x3 Psych: Normal mood and affect G/U: No [place] Skin: no rashes, warm and dry Lymphatic: no cervical or axillary lymphadenopathy Results & Data Results & Data Vital Signs (Past 12 Hours) Vital Signs Temp Pulse Pulse Resp BP BP Pulse Ox 07/27/24 10:48 37.0 C 80 20 118/49 L 92 07/27/24 08:00 07/27/24 08:00 66 07/27/24 08:00 07/27/24 07:10 37.3 C 66 18 127/52 L 94 07/27/24 04:02 36.7 C 65 18 118/37 L 92 Pulse Ox O2 Del Method O2 Del Method 07/27/24 10:48 Room Air 07/27/24 08:00 92 Room Air 07/27/24 08:00 07/27/24 08:00 Room Air 07/27/24 07:10 Room Air 07/27/24 04:02 Room Air Laboratory Results 07/27/24 07:47 07/27/24 07:47 PG Care Time/CCT Total # of Minutes Spent Total Time Spent with Patient: Total time spent is greater than 50% in coordination of care (as documented) at patient's floor/unit and/or counseling patient: Coding Level of Care Code 59733 INT INP/OBS CARE 3/75MIN Diagnoses ILD (interstitial lung disease) J84.9 NSIP (nonspecific interstitial pneumonia) J84.[address] R93.89 COPD with emphysema J43.9 Pleural plaque J92.9 Acute on chronic diastolic HF (heart failure) I50.33
[2024-07-27] MEDS: SODIUM CHLORIDE 0.9% 250 ML IV ONE (15:01)
[2024-07-27 15:26] LABS: C Reactive Protein 1.94 mg/dl (0-0.5)
--- NOTE | 2024-07-27 19:07 | Nephrology Progress Note ---
Date of Service July 27, 2024 Assessment & Plan (1) Autonomic postural hypotension: Plan: SBP drops at home consistently 50-65 points as of late May, irrespective of midodrine Orthostatics/wts in [facility] date sit stand standing wt 07/25 162/63 110/63 XX 07/26 133/61 94/53 89.3 07/27 116/53 102/45 XX -avoid further lasix unless acutely dyspneic -daily orthostatic VS -cont to hold salt tablets -his OP cortisol was borderline for adrenal insufficiency >> high dose cosyntropin stim test 07/27 w/ peak cortisol value 19.3, excluding adrenal insufficiency in most patients but inconclusive in this pt with liver cirrhosis; will repeat high dose cosyntropin stim test 07/28 w/ salivary testing >> reviwed protocols w/ RN and w/ labs -updated pt and his daughter at bedside (2) Exertional dyspnea: Plan: Suspect multifactorial including interstitial lung disease plus or minus deconditioning and HF component > HFpEF w/ elevated BNP. minimal wt change on clinic scale 06/28 to 07/24; + desat on day of admission to high 80s w/ changing position; marked physical deconditioning after months of sitting /lying primarily d/t severe autonomic sx. history of interstitial lung dz never evaluated by pulmonary also w/ prolonged/significant dyspnea post covid 2020 -for now no more lasix -if feasible, walk him and check 02 sats; orthostatic hypotension may preclude this >>for OP COPD w/u and inhalers at d/c (3) ILD (interstitial lung disease): Plan: Appreciate pulmonary evaluation > also w/ emphysema, remote smoking 40 pyh, employment related -f/u pending infectious/ AI w/u -for ABG in AM -on brovana, budesonide now in house Admission and Anticipated Discharge Date Admission Date: July 26, 2024 Subjective Pulmonary consulted today for evaluation of interstitial lung disease; workup in process; breathing about the same today as yesterday. Actually did not meet criteria for orthostasis on positional vital signs today. No chest pain no lower extremity edema. Review of Systems 2 Review of Systems: All systems reviewed & are unremarkable except as noted in Subjective Physical Exam 2 Constitutional: well developed (Sitting in bed on room air), well nourished and cooperative; no acute distress Eyes: EOM intact bilaterally ENMT: Mouth: + dry oral mucous membranes Respiratory: normal respiratory effort Auscultation: + diminished lung sounds and + crackles (Bilateral bases and mid right lung field) Cardiovascular: Rate/Rhythm: regular rate and regular rhythm Heart Sounds: + murmur Extremities: no edema Gastrointestinal (Abdomen): Inspection/Auscultation: normal bowel sounds P ercussion/Palpation: abdomen soft; abdomen nontender and no ascites Musculoskeletal: Extremities: strength 5/5 throughout Skin: no rashes, warm and dry Neurologic: Right pill-rolling tremor Psychiatric: Orientation: alert and oriented x 3 Results & Data Vital Signs (Past 12 Hours) Vital Signs Temp Pulse Pulse Resp BP Pulse Ox Pulse Ox 07/27/24 16:00 92 07/27/24 15:54 74 07/27/24 10:48 37.0 C 80 20 118/49 L 92 07/27/24 08:00 92 07/27/24 08:00 66 07/27/24 08:00 07/27/24 07:10 37.3 C 66 18 127/52 L 94 O2 Del Method O2 Del Method 07/27/24 16:00 Room Air 07/27/24 15:54 07/27/24 10:48 Room Air 07/27/24 08:00 Room Air 07/27/24 08:00 07/27/24 08:00 Room Air 07/27/24 07:10 Room Air Laboratory Results 07/27/24 07:47 07/27/24 07:[address] chest PE protocol FINDINGS: Pulmonary arteries: No pulmonary embolism. Aorta: No thoracic aortic aneurysm or dissection. Lungs: Interval increase in bilateral diffuse peripheral interstitial prominence with interlobular septal thickening. No focal lobar consolidation. Unchanged scattered nodular densities, largest in the lingula 5.8 mm. Pleural space: Unchanged mild bilateral pleural thickening with scattered pleural calcifications greatest dependently. No pleural effusion. No pneumothorax. Heart: Mild cardiomegaly. No pericardial effusion. No evidence of RV dysfunction. Coronary artery calcifications. Bones/joints: No acute fracture. Old right rib fractures. Degenerative changes of the spine. Soft tissues: Unremarkable. Lymph nodes: Unremarkable. No enlarged lymph nodes. Abdomen: Unchanged lobular liver margins suggesting cirrhosis. Status post cholecystectomy. Mild splenomegaly 13.4 cm length. IMPRESSION: No pulmonary embolism. Interval increase in bilateral diffuse peripheral interstitial prominence with interlobular septal thickening. No focal lobar consolidation. Unchanged scattered nodular densities, largest in the lingula 5.8 mm. Otherwise no change.
[2024-07-27] MEDS: BUDESONIDE 0.5 MG/2 ML VIAL (PULMICORT) NEB SCH (19:49)
[2024-07-27] MEDS: FORMOTEROL 20 MCG/2 ML VIAL NEB SCH (19:51)
[2024-07-27] MEDS: DOCUSATE SODIUM 100 MG CAP PO SCH (21:16)
[2024-07-28] MEDS ORDERED: ATROPINE SULFATE 0.1 MG/ML 10ML SYR IV PRN (04:41)
--- NOTE | 2024-07-28 04:42 | Communication Note ---
Date of Service: July 28, 2024 Patient with episodic bradycardia, heart rate 40s. Patient asymptomatic as per RN.
[2024-07-28 05:26] LABS: Allen Test Pos (Pos); Base Excess ABG 0.7 mEq/L (-9-1.8); HCO3 ABG 24 mmol/L (19-24); Oxygen Saturation ABG 96.5 % (90-95); PCO2 ABG 35 mmHg (35-46); PO2 ABG 73 mmHg (80-95); pH ABG 7.45 (7.35-7.45)
[2024-07-28 06:44] LABS: Hematocrit (blood only) 33.2 % (42.0-52.0); Hemoglobin 11.5 g/dl (14.0-18.0); Mean Corpuscular Hemoglobin 34.1 pg (25.0-34.0); Mean Corpuscular Hgb Conc 34.6 g/dL (32.0-36.0); Mean Corpuscular Volume 98.5 fL (80.0-100.0); Mean Platelet Volume 11.2 fL (9.4-12.4); Platelet Count 162 K/uL (130-400); RDW Standard Deviation 50.4 fL (36.4-46.3); Red Blood Count 3.37 M/uL (4.70-6.10); White Blood Count 11.72 K/ul (4.8-10.8)
[2024-07-28 07:07] LABS: Albumin Globulin Ratio 0.5 (0.9-2); BUN Creatinine Ratio 23.4 (10-20); Bilirubin,Total 1.1 mg/dl (0.2-1.0); Calcium 7.6 mg/dl (8.6-10.3); Creatinine Clr Calc Pharmacy 48.9 ml/min; Globulin 4.1 gm/dl (2.5-4.0); Magnesium 1.9 mg/dl (1.7-2.4); Phosphorus 3.4 mg/dl (2.5-4.9); Potassium 4.5 mmol/L (3.5-5.1); Total Protein 6.1 gm/dl (6.0-8.3)
[2024-07-28 07:22] LABS: Thyroid Stimulating Hormone 1.669 uIu/ml (0.300-4.500)
--- NOTE | 2024-07-28 07:27 | Pulmonology Progress Note ---
Date of Service July 28, 2024 Assessment & Plan (1) ILD (interstitial lung disease): (2) NSIP (nonspecific interstitial pneumonia): (3) Abnormal chest CT: (4) COPD with emphysema: (5) Pleural plaque: (6) Acute on chronic diastolic HF (heart failure): Plan CT chest 07/26/2024 personally reviewed: Centrilobular emphysema appreciated bilaterally Diffuse groundglass opacities appreciated bilaterally more pronounced on the periphery Question mild bronchiectasis Multiple pulmonary nodules appreciated bilaterally Calcified pleural plaques appreciated bilaterally on the posterior side Cardiomegaly Minimal hilar and subcarinal lymphadenopathy 2D echo 03/02/2024: EF 50-55%, moderate aortic valve sclerosis, no stenosis, g rade 2 diastolic dysfunction, mild concentric LVH, mild MR, mild TR, RV normal in size and function ABG 07/28/2024: 7.45/35/73 on room air --Exertional shortness of breath with abnormal chest CT/ILD Multifactorial > 31-[id number]-cnsa smoking history Worked in [employer] with grade 2 diastolic dysfunction and elevated BNP No personal or family history of autoimmune disease like lupus, sarcoid, Sjogren's, rheumatoid No Raynaud's, no dry eyes, no dry mouth, no difficulty swallowing Negative for influenza A/B, RSV as well as COVID-19 on 07/25/2024 BNP 373 ESR 55 CRP 1.94 CPK WNL Based on the physical exam, CAT scan of the chest and history, I do think patient has ILD like picture which seems to be progressively getting worse compared to CAT scan of the chest 01/2023 Follow-up autoimmune work-up including SONYA with reflex, rheumatoid factor, anti- CCP, CRP, ESR, NICA along with hypersensitive pneumonia panel. High-resolution CAT as outpatient --COPD with emphysema Not on any inhalers at home Would recommend the patient to be on Stiolto or Anoro on discharge Will need full PFT as well as HRCT and pulmonary follow-up as an outpatient --Ex-smoker Approximately [id number] smoking history, quit around the age of 34 Encouraged to continue abstinence from smoking Patient with liver cirrhosis could have portal pulmonary hypertension which will give orthodeoxia. The latest 2D echo done February 2024 did not show any signs of pulmonary hypertension Plan: In/out: -2.7 L since coming to the hospital Follow-up autoimmune workup along with hypersensitive pneumonitis panel There is only minimal elevation of inflammatory markers Recommend Stiolto or Anoro on discharge, full PFT as an outpatient Pulmonary follow-up on discharge Plan was discussed with patient, RN as well as primary team No further recommendation from pulmonary perspective, will sign off Please call directly with any questions Please note the above document was generated using voice recognition software. It may contain grammatical, syntax or spelling errors.Any formal questions or concerns about the content, text or information contained within the body of this dictation should be directly addressed to the provider for clarification. Admission and Anticipated Discharge Date Admission Date: July 26, 2024 Subjective Patient seen and examined at bedside. No acute distress, no adverse events overnight Saturating well on room air ABG from today did not show any significant hypercapnia or hypoxia Denied any chest pain He stated that he is diuresing well No abdominal pain Fair appetite No nausea or vomiting Review of Systems 2 Review of Systems: All systems reviewed & are unremarkable except as noted in Subjective Physical Exam 2 Physical Exam: Constitutional: No acute distress HEENT: EOMI, PERRLA Respiratory system: Decreased air entry bilaterally, no wheeze, no rhonchi, positive Velcro-like crackles appreciated bilaterally, more on the left side CVS: S1-S2 positive, +3 out of 6 systolic murmur appreciated best at aorta Abdomen: Soft, nontender, nondistended, positive bowel sounds x4 Extremities: +2 pulses bilaterally radialis/ dorsalis pedis, no cyanosis, m inimal pitting edema bilateral lower extremity, onychomycosis of the left thumb index and middle finger. No clubbing Neuro: Awake alert oriented x3 Psych: Normal mood and affect G/U: No [place] Skin: no rashes, warm and dry Lymphatic: no cervical or axillary lymphadenopathy Results & Data Results & Data Vital Signs (Past 12 Hours) Vital Signs Temp Pulse Pulse Resp BP Pulse Ox O2 Del Method 07/28/24 07:01 71 16 93 Room Air 07/28/24 03:15 36.8 C 63 18 131/55 L 95 Room Air 07/28/24 00:03 36.9 C 73 18 150/77 H 93 Room Air 07/27/24 21:49 76 07/27/24 21:00 Room Air 07/27/24 20:08 36.7 C 70 18 157/74 H 93 Room Air 07/27/24 19:51 76 18 95 Room Air Laboratory Results 07/28/24 06:15 07/28/24 06:15 PG Care Time/CCT Total # of Minutes Spent Total Time Spent with Patient: Total time spent is greater than 50% in coordination of care (as documented) at patient's floor/unit and/or counseling patient: Coding Level of Care Code 94281 SUB INP/OBS CARE 2/35MIN Diagnoses ILD (interstitial lung disease) J84.9 NSIP (nonspecific interstitial pneumonia) J84.[address] R93.89 COPD with emphysema J43.9 Pleural plaque J92.9 Acute on chronic diastolic HF (heart failure) I50.33
[2024-07-28] MEDS: COSYNTROPIN 250 MCG in SYRINGE 4 ML IV ONE (08:03)
--- NOTE | 2024-07-28 14:11 | Hospitalist Progress Note ---
Date of Service July 28, 2024 Assessment & Plan (1) CHF (congestive heart failure): Plan Pt is a 74yoM with PMHx significant for chronic diastolic heart failure (EF 60 %, TTE 2023), valvular heart disease (mild MR/TR), orthostatic hypotension on salt tablets, ILD, history endocarditis, DM2 diet-controlled, chronic anemia (baseline hemoglobin 11-12), NAFLD cirrhosis, prostate cancer, chronic back pain on narcotics, past tobacco abuse who presents with concern for SOB, increased abdominal girth and hypoxia at home. 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, currently on hold Following with Nephrology and Neurology as an outpt Nephrology consulted given hold on salt tabs, appreciate recs History of ILD CTA chest with "...Interval increase in bilateral diffuse peripheral interstitial prominence with interlobular septal thickening..." VBG unremarkable Pulmonology consulted, appreciate recs not in acute exacerbation Chronic Medical Problems: hx valvular 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 Lovenox subcu Full code Admission and Anticipated Discharge Date Admission Date: July 26, 2024 Subjective Pt was seen laying in bed Still fatigued, notes slight improvement in SOB and abdominal girth was nauseous at time of exam, requesting antiemetic Review of Systems Review of Systems: All systems reviewed & are unremarkable except as noted in Subjective Physical Exam Physical Exam: General: Alert, orientedx3. No acute distress HEENT: NC/AT CV: RRR Resp: Breath sounds clear bilaterally, no increased effort of breathing Abdomen: Soft, nontender Extremities: edema in lower extremities bilaterally. Results & Data Results & Data Vital Signs (Past 12 Hours) Vital Signs Temp Pulse Pulse Resp BP Pulse Ox Pulse Ox 07/28/24 11:06 36.6 C 70 17 125/64 94 07/28/24 11:00 67 07/28/24 11:00 07/28/24 08:00 94 07/28/24 07:01 71 16 93 07/28/24 07:00 36.5 C 71 18 124/52 L 94 07/28/24 03:15 36.8 C 63 18 131/55 L 95 O2 Del Method O2 Del Method 07/28/24 11:06 Room Air 07/28/24 11:00 07/28/24 11:00 Room Air 07/28/24 08:00 Room Air 07/28/24 07:01 Room Air 07/28/24 07:00 Nebulizer 07/28/24 03:15 Room Air
--- NOTE | 2024-07-28 15:52 | Nephrology Progress Note ---
Date of Service July 28, 2024 Assessment & Plan (1) Autonomic postural hypotension: Plan: SBP drops at home consistently 50-65 points as of late May, irrespective of midodrine Orthostatics/wts in [facility] date sit stand standing wt 07/25 162/63 110/63 XX 07/26 133/61 94/53 89.3 07/27 116/53 102/45 XX 07/28 148/62 110/54 xx -avoid further lasix unless acutely dyspneic -daily orthostatic VS -cont to hold salt tablets -his OP cortisol was borderline for adrenal insufficiency >> high dose cosyntropin stim test 07/27 w/ peak cortisol value 19.3, excluding adrenal insufficiency in most patients but inconclusive in this pt with liver cirrhosis; this AM he repeated high dose cosyntropin stim test 07/28 w/ salivary testing >> reviewed protocols w/ RN and w/ labs creat drifting down after elevation in wake of CT w/ IV contrast obligate at this point from neph standpoint he could be d/c pending PT eval if needed. orthostatics not likely to change/improve and are comparable to outside readings. -d/c off of salt tabs > they don't seem to help his orthostatic sx -will move 07/31 appt w/ me out to about 08/31 >> my office will call to set up >have asked to evaluate orthostatics bid for 7-10 days before OV w/ me -consider 10 day zio patch prior to cardiology visit late July > if indicated based on bradycardia in house -I will do an endocrine ask a doc once the salivary cortisol results post -pt asking for pulm [facility]/ [facility]b [facility] since [facility] in network and [facility] [place]; meanwhile IP pulm recs much appreciated Care coordinated w/ Dr Fonseca regarding d/c dispo, meds, f/u appts by phone; we are in agreement. Nephro will sign off (2) Exertional dyspnea: Plan: Suspect multifactorial including interstitial lung disease plus or minus deconditioning and HF component > HFpEF w/ elevated BNP. minimal wt change on clinic scale 06/28 to 07/24; + desat on day of admission to high 80s w/ changing position; marked physical deconditioning after months of sitting /lying primarily d/t severe autonomic sx. history of interstitial lung dz never evaluated by pulmonary also w/ prolonged/significant dyspnea post covid 2020 -for now no more lasix -if feasible, walk him and check 02 sats; orthostatic hypotension may preclude this >>for OP COPD w/u and inhalers at d/c (3) ILD (interstitial lung disease): Plan: Appreciate pulmonary evaluation > also w/ emphysema, remote smoking 40 pyh, employment related -f/u pending infectious/ AI w/u -for ABG in AM -on brovana, budesonide now in house Admission and Anticipated Discharge Date Admission Date: July 26, 2024 Subjective remains orthostatic; , daughter at bedside today and events reviewed. jesusita to 40s ON briefly. no change in breathing. did saliva test today Review of Systems 2 Review of Systems: All systems reviewed & are unremarkable except as noted in Subjective Physical Exam 2 Constitutional: well developed (Sitting in bed on room air), well nourished and cooperative; no acute distress Eyes: EOM intact bilaterally ENMT: Mouth: + dry oral mucous membranes Respiratory: normal respiratory effort Auscultation: + diminished lung sounds and + crackles (Bilateral bases and mid right lung field) Cardiovascular: Rate/Rhythm: regular rate and regular rhythm Heart Sounds: + murmur Extremities: no edema Gastrointestinal (Abdomen): Inspection/Auscultation: normal bowel sounds P ercussion/Palpation: abdomen soft; abdomen nontender and no ascites Musculoskeletal: Extremities: strength 5/5 throughout Skin: no rashes, warm and dry Psychiatric: Orientation: alert and oriented x 3 Results & Data Vital Signs (Past 12 Hours) Vital Signs Temp Pulse Pulse Resp BP Pulse Ox Pulse Ox 07/28/24 15:00 36.5 C 74 18 150/60 H 92 07/28/24 11:06 36.6 C 70 17 125/64 94 07/28/24 11:00 67 07/28/24 11:00 07/28/24 08:00 94 07/28/24 07:01 71 16 93 07/28/24 07:00 36.5 C 71 18 124/52 L 94 O2 Del Method O2 Del Method 07/28/24 15:00 Room Air 07/28/24 11:06 Room Air 07/28/24 11:00 07/28/24 11:00 Room Air 07/28/24 08:00 Room Air 07/28/24 07:01 Room Air 07/28/24 07:00 Nebulizer Laboratory Results 07/28/24 06:15 07/28/24 06:15
[2024-07-28] MEDS: oxyCODONE HCL IR 5 MG TAB (IMMEDIATE RELEASE) PO SCH (18:26)
[2024-07-28] MEDS: LIDOCAINE 5% 1 PATCH TD SCH (18:26)
[2024-07-29 06:43] LABS: Hematocrit (blood only) 31.1 % (42.0-52.0); Hemoglobin 10.9 g/dl (14.0-18.0); Mean Corpuscular Hemoglobin 34.7 pg (25.0-34.0); Mean Platelet Volume 11.3 fL (9.4-12.4); Platelet Count 161 K/uL (130-400); RDW Standard Deviation 50.8 fL (36.4-46.3); Red Blood Count 3.14 M/uL (4.70-6.10); White Blood Count 12.27 K/ul (4.8-10.8)
[2024-07-29 07:11] LABS: Albumin Globulin Ratio 0.5 (0.9-2); Albumin Level 1.9 gm/dl (3.4-5.0); BUN Creatinine Ratio 26.5 (10-20); Bilirubin,Total 0.7 mg/dl (0.2-1.0); Calcium 7.7 mg/dl (8.6-10.3); Creatinine Clr Calc Pharmacy 53.7 ml/min; Globulin 4.1 gm/dl (2.5-4.0); Magnesium 1.9 mg/dl (1.7-2.4); Phosphorus 3.3 mg/dl (2.5-4.9); Potassium 4.7 mmol/L (3.5-5.1)
--- NOTE | 2024-07-29 08:34 | Electrocardiogram Report ---
Test Reason : Blood Pressure : */* mmHG Vent. Rate : 77 BPM Atrial Rate : 77 BPM P-R Int : 198 ms QRS Dur : 104 ms QT Int : 432 ms P-R-T Axes : 18 -34 16 degrees QTcB Int : 488 ms Sinus rhythm with occasional Premature ventricular complexes Left axis deviation Left anterior fascicular block Voltage criteria for left ventricular hypertrophy QTcB >= 480 msec Abnormal ECG When compared with ECG of 25-Jul-2024 20:51, No significant change was found Confirmed by Estefanía Ferris ([id number]) on 07/29/2024 8:33:50 AM Referred By: Jerzy Glez Confirmed By: Estefanía Ferris
--- NOTE | 2024-07-29 09:17 | Electrocardiogram Report ---
Test Reason : Blood Pressure : */* mmHG Vent. Rate : 72 BPM Atrial Rate : 72 BPM P-R Int : 192 ms QRS Dur : 102 ms QT Int : 426 ms P-R-T Axes : 19 -23 19 degrees QTcB Int : 466 ms Sinus rhythm with occasional Premature ventricular complexes Voltage criteria for left ventricular hypertrophy Abnormal ECG When compared with ECG of 26-Jul-2024 13:01, (unconfirmed) No significant change was found Confirmed by Estefanía Ferris ([id number]) on 07/29/2024 9:16:57 AM Referred By: Jerzy Glez Confirmed By: Estefanía Ferris
--- NOTE | 2024-07-29 13:54 | Hospitalist Progress Note ---
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, currently on hold Following with Nephrology and Neurology as an outpt Nephrology consulted given hold on salt tabs, appreciate recs History of ILD CTA chest with "...Interval increase in bilateral diffuse peripheral interstitial prominence with interlobular septal thickening..." VBG unremarkable Pulmonology consulted, appreciate recs not in acute exacerbation Leukocytosis Likely in setting of inflammation, see pulm discussion Repeat UA, chest XRAY Chronic Medical Problems: hx valvular 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 Lovenox subcu Full code Admission and Anticipated Discharge Date Admission Date: July 26, 2024 Subjective pt was seen in the AM Laying in bed Had not yet been evaluated by PT Later called and updated Had many questions which were answered Review of Systems Review of Systems: All systems reviewed & are unremarkable except as noted in Subjective Physical Exam Physical Exam: General: Alert, orientedx3. No acute distress HEENT: NC/AT CV: RRR Resp: Breath sounds clear bilaterally, no increased effort of breathing Abdomen: Soft, nontender Extremities: edema in lower extremities bilaterally. Results & Data Results & Data Vital Signs (Past 12 Hours) Vital Signs Temp Pulse Pulse Resp BP Pulse Ox O2 Del Method 07/29/24 08:00 76 07/29/24 08:00 Room Air 07/29/24 08:00 07/29/24 07:39 36.6 C 80 18 141/63 H 91 Room Air 07/29/24 07:09 72 16 94 Room Air 07/29/24 02:51 36.8 C 76 18 132/61 94 Room Air O2 Del Method 07/29/24 08:00 07/29/24 08:00 07/29/24 08:00 Room Air 07/29/24 07:39 07/29/24 07:09 07/29/24 02:51
[2024-07-29] MEDS: oxyCODONE HCL IR 5 MG TAB (IMMEDIATE RELEASE) PO SCH (14:15)
[2024-07-29] MEDS ORDERED: oxyCODONE HCL IR 5 MG TAB (IMMEDIATE RELEASE) PO SCH (14:15)
[2024-07-29] MEDS ORDERED: Nursing to Pharmacy Communication SCH ×2 (14:15→16:15)
--- NOTE | 2024-07-29 18:51 | XRay Report ---
Chest radiograph, one view History: Leukocytosis. Comparison: 25 July 2024. Findings: Calcified atherosclerotic changes of the thoracic aorta. Lung volume slightly decreased. Mild obscuration left heart border and to lesser extent left hemidiaphragm. This is unchanged. Diminished pulmonary vascular clarity. No tyree edema. Poorly defined costophrenic angles. Remote right rib fractures. Impression: Persistent nonspecific left base subsegmental atelectasis and or consolidation with small effusions. Electronically signed by Adan Luna 07-29-2024 6:51 PM
[2024-07-29 20:17] LABS: Appearance Urine Clear (Clear); Bacteria Urine Automated None Seen (None Seen); Bilirubin Urine Negative (Negative); Blood Urine Negative (Negative); Cast Urine Automated 0-2 /lpf (0-2); Color Urine Yellow; Epithelial Cell Urine Auto 0-2 /hpf (0-2); Glucose Urine UA Negative (Negative); Ketones Urine Negative (Negative); Leukocyte Esterase Urine Negative (Negative); Nitrite Urine Negative (Negative); Protein Urine 2+ (Negative); RBC Urine Automated 0-2 /hpf (0-2); Specific Gravity Urine 1.018 (1.000-1.030); Urobilinogen Urine Negative (Negative); WBC Urine Automated 0-5 /hpf (0-5); pH Urine 6.5 (4.5-7.5)
[2024-07-30 08:06] LABS: Basophils # (auto) 0.06 K/uL (0.00-0.20); Basophils % (auto) 0.6 %; Eosinophils # (auto) 0.63 K/uL (0.00-0.50); Eosinophils % (auto) 6.2 %; Hematocrit (blood only) 32.9 % (42.0-52.0); Hemoglobin 11.3 g/dl (14.0-18.0); Immature Granulocytes # (auto) 0.02 K/uL (0.01-0.20); Immature Granulocytes % (auto) 0.2 %; Lymphocytes # (auto) 2.45 K/uL (1.20-3.40); Lymphocytes % (auto) 23.9 %; Mean Corpuscular Hemoglobin 33.9 pg (25.0-34.0); Mean Corpuscular Hgb Conc 34.3 g/dL (32.0-36.0); Mean Corpuscular Volume 98.8 fL (80.0-100.0); Mean Platelet Volume 12.7 fL (9.4-12.4); Monocytes # (auto) 1.04 K/uL (0.11-0.59); Monocytes % (auto) 10.2 %; Neutrophils # (auto) 6.04 K/uL (1.40-6.50); Neutrophils % (auto) 58.9 %; Platelet Count 120 K/uL (130-400); RDW Standard Deviation 51.4 fL (36.4-46.3); Red Blood Count 3.33 M/uL (4.70-6.10); White Blood Count 10.24 K/ul (4.8-10.8)
[2024-07-30 08:32] LABS: Albumin Globulin Ratio 0.5 (0.9-2); BUN Creatinine Ratio 23.3 (10-20); Bilirubin,Total 0.8 mg/dl (0.2-1.0); Calcium 7.6 mg/dl (8.6-10.3); Globulin 4.2 gm/dl (2.5-4.0); Magnesium 1.7 mg/dl (1.7-2.4); Phosphorus 2.9 mg/dl (2.5-4.9); Potassium 4.8 mmol/L (3.5-5.1); Total Protein 6.2 gm/dl (6.0-8.3)
--- NOTE | 2024-07-30 14:58 | Hospitalist Progress Note ---
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, currently on hold Following with Nephrology and Neurology as an outpt Nephrology consulted given hold on salt tabs, appreciate recs History of ILD CTA chest with "...Interval increase in bilateral diffuse peripheral interstitial prominence with interlobular septal thickening..." VBG unremarkable Pulmonology consulted, appreciate recs not in acute exacerbation Leukocytosis Likely in setting of inflammation, see pulm discussion Repeat UA unremarkable, chest xray stable Improved Chronic Medical Problems: hx valvular 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 Lovenox subcu Full code Admission and Anticipated Discharge Date Admission Date: July 26, 2024 Subjective Pt was seen in the AM Sates that he is not feeling well Did work with PT who recommended home with PT services called and updated She is concerned about his breathing and him being SOB while walking Wants him to follow up with [facility] pulmonology Review of Systems Review of Systems: All systems reviewed & are unremarkable except as noted in Subjective Physical Exam Physical Exam: General: Alert, orientedx3. No acute distress HEENT: NC/AT CV: RRR Resp: Breath sounds clear bilaterally, no increased effort of breathing Abdomen: Soft, nontender Extremities: edema in lower extremities bilaterally. Results & Data Results & Data Vital Signs (Past 12 Hours) Vital Signs Temp Pulse Resp BP Pulse Ox O2 Del Method 07/30/24 10:43 36.5 C 87 18 154/81 H 96 Room Air 07/30/24 07:36 36.7 C 69 16 133/70 94 Room Air 07/30/24 07:10 72 18 93 Room Air
[2024-07-30] MEDS: LIDOCAINE 5% 1 PATCH TD SCH (20:19)
[2024-07-30] MEDS: MELATONIN 3 MG TAB PO PRN (21:40)
[2024-07-31 07:44] VITALS: RESP 19
[2024-07-31 07:58] LABS: Basophils # (auto) 0.06 K/uL (0.00-0.20); Basophils % (auto) 0.6 %; Eosinophils # (auto) 0.64 K/uL (0.00-0.50); Eosinophils % (auto) 6.4 %; Hemoglobin 11.8 g/dl (14.0-18.0); Immature Granulocytes # (auto) 0.04 K/uL (0.01-0.20); Immature Granulocytes % (auto) 0.4 %; Lymphocytes % (auto) 27.2 %; Mean Corpuscular Hemoglobin 34.4 pg (25.0-34.0); Mean Corpuscular Hgb Conc 34.7 g/dL (32.0-36.0); Mean Corpuscular Volume 99.1 fL (80.0-100.0); Mean Platelet Volume 11.4 fL (9.4-12.4); Monocytes # (auto) 1.23 K/uL (0.11-0.59); Monocytes % (auto) 12.4 %; Neutrophils # (auto) 5.27 K/uL (1.40-6.50); Platelet Count 152 K/uL (130-400); RDW Coefficient of Variation 14.2 % (11.5-14.5); RDW Standard Deviation 51.7 fL (36.4-46.3); Red Blood Count 3.43 M/uL (4.70-6.10); White Blood Count 9.94 K/ul (4.8-10.8)
[2024-07-31 08:25] LABS: Alanine Aminotransferase 34 U/L (7-52); Albumin Globulin Ratio 0.5 (0.9-2); Albumin Level 2.1 gm/dl (3.4-5.0); Alkaline Phosphatase 234 U/L (34-104); Anion Gap 0 (3-11); Bilirubin,Total 1.3 mg/dl (0.2-1.0); Blood Urea Nitrogen 28 mg/dl (6-23); Calcium 7.7 mg/dl (8.6-10.3); Carbon Dioxide 29 mmol/L (21-32); Chloride 106 mmol/L (98-107); Creatinine Clr Calc Pharmacy 55.9 ml/min; Globulin 4.4 gm/dl (2.5-4.0); Glucose 84 mg/dl (70-99(Fasting)); Magnesium 1.9 mg/dl (1.7-2.4); Phosphorus 3.3 mg/dl (2.5-4.9); Sodium 135 mmol/L (136-145); Total Protein 6.5 gm/dl (6.0-8.3)
[2024-07-31 09:12] LABS: Potassium 5.1 mmol/L (3.5-5.1)
[2024-07-31 11:04] VITALS: BP 125/53; PULSE 74; TEMP 97.9; O2SAT 93
--- NOTE | 2024-07-31 15:21 | Discharge Summary ---
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 Decompensated heart failure Likely from uncontrolled blood pressure secondary to sodium tablets for recurrent orthostasis History of diastolic dysfunction Diuretic Rx later discontinued Discontinued salt tablets Strict I/Os, daily weights, CHF education Cardiology consult re: CHF. Recommended/stated the following: "...Reported patient with brisk diuresis on initial IV diuretics administration. Abdominal girth distention and breathlessness improved...Exam euvolemic. Recommendations as above increase activity..." Close Cardiology followup after discharge Autonomic Orthostasis On salt tabs, discontinued Following with Nephrology and Neurology as an outpt Nephrology consulted, recommended/stated the following on discharge per Dr Kerri Garcia: "...-avoid further lasix unless acutely dyspneic -daily orthostatic VS -cont to hold salt tablets -his OP cortisol was borderline for adrenal insufficiency >> high dose cosyntropin stim test 5/2 w/ peak cortisol value 19.3, excluding adrenal insufficiency in most patients but inconclusive in this pt with liver cirrhosis; this AM he repeated high dose cosyntropin stim test / w/ salivary testing >> reviewed protocols w/ RN and w/ labs creat drifting down after elevation in wake of CT w/ IV contrast obligate at this point from neph standpoint he could be d/c pending PT eval if needed. orthostatics not likely to change/improve and are comparable to outside readings. -d/c off of salt tabs > they don't seem to help his orthostatic sx -will move 5/6 appt w/ me out to about 08/31 >> my office will call to set up >have asked to evaluate orthostatics bid for 7-10 days before OV w/ me -consider 10 day zio patch prior to cardiology visit late July > if indicated based on bradycardia in house -I will do an endocrine ask a doc once the salivary cortisol results post -pt asking for pulm f/u w/ Dr Kolb or other [facility] Pulm since [facility] [place] and [facility] is not for them; meanwhile IP pulm recs much appreciated..." Close Nephrology followup after discharge History of ILD CTA chest with "...Interval increase in bilateral diffuse peripheral interstitial prominence with interlobular septal thickening..." VBG unremarkable Pulmonology consulted, appreciate recs. Recommended/stated the following: "...Follow-up autoimmune workup along with hypersensitive pneumonitis panel There is only minimal elevation of inflammatory markers Recommend Stiolto or Anoro on discharge, full PFT as an outpatient Pulmonary follow-up on discharge..." Pt and would like to follow with [facility] pulmonology. Per Anoro/Stiolto medication will cost >$500, requesting alternative. 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 Medical history significant for chronic diastolic heart failure (EF 60 %, TTE 2023), valvular heart disease (mild MR/TR), orthostatic hypotension on salt tablets, ILD, history endocarditis, DM2 diet-controlled, chronic anemia (baseline hemoglobin 11-12), NAFLD cirrhosis, prostate cancer, chronic back pain on narcotics, past tobacco abuse. Last confinement April 2024 for recurrent orthostasis, complicated bronchitis. Patient instructed to continue salt tablets. Midodrine dose increased on discharge. Patient seen on follow-up at [facility] [place] [facility] office last month. Midodrine discontinued last month by [facility] [place] [facility] due to ineffectiveness. Patient with exertional SOB symptoms at time of visit with crackles noted on exam. Chest x-ray done at office showed mild haziness/reticular opacities mid to lower lungs. Outpatient CT chest recommended. 2 weeks ago, patient noted worsening SOB on exertion without chest pain. Abdominal distention with 10 pound weight gain as per patient. Denies headache symptoms. No unusual cough symptoms as per patient. Patient seen at PCP's office 2 days ago. Outpatient BNP and troponin levels noted to be abnormal. Outpatient CT chest scheduled. Transient hypoxemia O2 sats 80s noted at home. Patient directed to ER for evaluation. SBP 190s upon arrival at the ER. 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 No acute distress HEENT: NC/AT CV: RRR Resp: Breath sounds clear bilaterally, no increased effort of breathing Abdomen: Soft, nontender Extremities: edema in lower extremities bilaterally. Updated Medication List Medication Instructions Recorded Confirmed Type oxycodone 10 mg tablet 10 mg PO QID 01/02/22 07/25/24 History diphenhydramine 25 1 tab PO HS 07/25/24 07/25/24 History mg-acetaminophen 500 mg tablet (Tylenol PM Extra Strength) montelukast 10 mg tablet 10 mg PO DAILY 07/25/24 07/25/24 History formoterol fumarate 20 mcg/2 mL 2 ml inhalation BID #60 mL 07/31/24 Rx solution for nebulization (Perforomist) lidocaine 4 % topical patch 1 patch topical DAILY #30 ea 07/31/24 Rx tiotropium bromide 18 mcg capsule 1 cap inhalation DAILY #60 07/31/24 Rx with inhalation device inhalations Hospital Stay Data Consultations 07/26/24 00:42 ED Decision to Admit Stat 07/26/24 02:59 Consult Cardiology Routine 07/26/24 09:28 Consult Nephrology Routine 07/27/24 12:50 Consult Pulmonology Routine Diagnostic Imagining Performed 07/26/24 01:49 US abdomen ltd ascites Stat 07/26/24 18:55 CT angio chest PE protocol Urgent Chest X-Ray 07/25/24 20:24 Exam(s): XR CXR 1 VIEW EXAM: XR Chest, 1 View CLINICAL HISTORY: Reason for exam: Chest pain, nonspecific. TECHNIQUE: Frontal view of the chest. COMPARISON: Chest x-ray: 05/17/2024 there is mild cardiomegaly. FINDINGS: Lungs: There is mild lower lobe interstitial thickening and subsegmental atelectasis. Pleural space: There is mild blunting of the costophrenic angles suggestive of small pleural effusions. No pneumothorax. Heart: Unremarkable. No cardiomegaly. Mediastinum: Cardial mediastinal silhouette is unremarkable for portable AP technique. Bones/joints: There are chronic healed posterior sixth, seventh and eighth right-sided rib fractures. IMPRESSION: 1. There is mild lower lobe interstitial thickening and subsegmental atelectasis. 2. There is mild blunting of the costophrenic angles suggestive of small pleural effusions. Electronically signed by: Kalpesh Jennings MD 07/25/24 23:27 PM Abdomen Ultrasound 07/26/24 01:49 EXAM: US abdomen ltd ascites CLINICAL HISTORY: abd distension. TECHNIQUE: Ultrasound examination of the RUQ was performed using a [high-frequency transducer]. Scanning was performed with the patient in supine position. COMPARISON: prior CT 04/08/2024. FINDINGS: No evidence of ascites. Liver: The liver show an irregular nodular border, multiple measurement of size were taken 13.78 cm in maximum. No evidence of focal lesions, cysts, or masses. Spleen: Enalrged meausres 15.1 cm. Bladder: Mild urinary bladder wall thickening, could be cystitis; clinical correlation is needed. No evidence of bladder masses, or intraluminal stones. No free fluid or ascites in the scanned sections. IMPRESSION: 1. Mild splenomegaly. 2. The liver show irregular nodular border, measures 13.78 cm in maximum. Unchanged. 3. No free fluid or ascites in the scanned sections. Stable. 4. Mild urinary bladder wall thickening, could be cystitis; clinical correlation is needed. Electronically signed by Nguyễn Rae 07-26-2024 03:42 AM Chest CTA 07/26/24 18:55 Exam(s): CTA CHEST IV Amt: 115 ml optiray 320 EXAM: CT Angiography Chest With Intravenous Contrast CLINICAL HISTORY: PE. TECHNIQUE: Axial computed tomographic angiography images of the chest with intravenous contrast. CTDI is 26.32 mGy and DLP is 813.1 mGy-cm. Automated exposure control was utilized for the study. A dose lowering technique was utilized adhering to the principles of ALARA. 3D and MIP reconstructed images were created and reviewed. COMPARISON: Chest x-ray 07/25/2024, CTA chest 04/07/2024. FINDINGS: Pulmonary arteries: No pulmonary embolism. Aorta: No thoracic aortic aneurysm or dissection. Lungs: Interval increase in bilateral diffuse peripheral interstitial prominence with interlobular septal thickening. No focal lobar consolidation. Unchanged scattered nodular densities, largest in the lingula 5.8 mm. Pleural space: Unchanged mild bilateral pleural thickening with scattered pleural calcifications greatest dependently. No pleural effusion. No pneumothorax. Heart: Mild cardiomegaly. No pericardial effusion. No evidence of RV dysfunction. Coronary artery calcifications. Bones/joints: No acute fracture. Old right rib fractures. Degenerative changes of the spine. Soft tissues: Unremarkable. Lymph nodes: Unremarkable. No enlarged lymph nodes. Abdomen: Unchanged lobular liver margins suggesting cirrhosis. Status post cholecystectomy. Mild splenomegaly 13.4 cm length. IMPRESSION: No pulmonary embolism. Interval increase in bilateral diffuse peripheral interstitial prominence with interlobular septal thickening. No focal lobar consolidation. Unchanged scattered nodular densities, largest in the lingula 5.8 mm. Otherwise no change. Electronically signed by: Gustavo De Guzman M.D. 07/27/24 00:13 AM Chest X-Ray 07/29/24 17:46 Chest radiograph, one view History: Leukocytosis. Comparison: 25 July 2024. Findings: Calcified atherosclerotic changes of the thoracic aorta. Lung volume slightly decreased. Mild obscuration left heart border and to lesser extent left hemidiaphragm. This is unchanged. Diminished pulmonary vascular clarity. No tyree edema. Poorly defined costophrenic angles. Remote right rib fractures. Impression: Persistent nonspecific left base subsegmental atelectasis and or consolidation with small effusions. Electronically signed by Adan Luna 07-29-2024 6:51 PM Pending Results Patient Have Any Pending Studies at Discharge: No Discharge Instructions Given to Patient (Per Discharging Provider) Mr. Munoz, You were seen by multiple specialists. Pulmonology would like you on an inhaler called Bhavesh/Arina. You indicated that it will cost you more than $500 for this inhaler. We discharged you with 2 separate similar inhaler/nebulizer solution to help until you follow up with [facility] pulmonology who you indicated you wanted to follow with. Please also keep close followup with your primary care provider about this as well at your appointment tomorrow. Nephrology also recommends that you stop the salt tablets. Please keep close followup with Nephrology after discharge. We are discharging you home with lidocaine patches per your request as well. Please also keep close followup with Cardiology after discharge. Total Time Total Time Spent Total Time Spent (In Minutes): 60
[2024-08-01 13:22] LABS: Aldosterone/Renin Ratio 5.1 Ratio (0.9-28.9); Renin Activity 0.79 ng/mL/h (0.25-5.82)
[2024-08-02 10:08] LABS: Angiotensin Converting Enzyme 85 U/L (9-67); Anti Nuclear Antibody Screen POSITIVE (NEGATIVE); Anti-Centromere Ab <1.0 NEG AI (<1.0 NEG); Anti-Glom Basement Antibody <1.0 AI (<1.0); Anti-SS-A <1.0 NEG AI (<1.0 NEG); Anti-SS-B <1.0 NEG AI (<1.0 NEG); Anti-dsDNA Recombinant 1 IU/mL; Cyclic Citrullinated Pep IgG <16 UNITS; JO 1 Antibody <1.0 NEG AI (<1.0 NEG); Proteinase-3 Ab <1.0 AI; RNP Antibody <1.0 NEG AI (<1.0 NEG); Rheumatoid Factor <10 IU/mL (<14); Sm Antibody <1.0 NEG AI (<1.0 NEG)
[2024-08-02 12:10] LABS: ANA Pattern Nuclear, Speckled; ANA Pattern 2 Nuclear, Nucleolar
== END 2024-07-31 17:20 | disposition home health service (06) | DRG 291 ==
LOC: ED 20:18 → 2S 07-26 01:47

== ENCOUNTER 2025-01-18 18:52 | Inpatient (IN) ==
[2025-01-18 19:24] LABS: Hematocrit (blood only) 38.2 % (42.0-52.0); Hemoglobin 13.2 g/dl (14.0-18.0); Immature Granulocytes # (auto) 0.04 K/uL (0.01-0.20); Immature Granulocytes % (auto) 0.3 %; Mean Corpuscular Hemoglobin 35.3 pg (25.0-34.0); Mean Corpuscular Volume 102.1 fL (80.0-100.0); Platelet Count 174 K/uL (130-400); RDW Standard Deviation 53.5 fL (36.4-46.3); Red Blood Count 3.74 M/uL (4.70-6.10); White Blood Count 12.05 K/ul (4.8-10.8)
--- NOTE | 2025-01-18 19:35 | Emergency Department Note ---
Impression & Plan Shortness of breath, D-dimer, elevated, JUWAN (acute kidney injury) ED Provider Note NAME: THAI MEJIA AGE: 74 SEX: M : 1950 ARRIVES VIA: Walk-In INFORMANT: Patient ED PROVIDER(S): Jt Colón DO CHIEF COMPLAINT: Shortness of breath HPI: Patient is a 74-year-old male with a past medical history of interstitial lung disease, COPD, CHF who follows with nephrology and cardiology presented to the ER for shortness of breath. Symptoms have been getting worse for the past 3 weeks. He admits that he is gained about 12 pounds over the past week. He denies any chest pain. Family brought him in as he notes the shortness of breath has been getting worse. Denies any belly pain, nausea, vomiting or diarrhea. No dysuria, urgency or frequency. No other exacerbating or remitting factors. ADDITIONAL HISTORY OBTAINED: Per HPI Chronic Medical/Social Conditions Affecting Care: Per HPI PAST MEDICAL HISTORY:See Below PAST SURGICAL HISTORY:See Below FAMILY HISTORY:See Below SOCIAL HISTORY:See Below HOME MEDICATIONS:See Below ALLERGIES:See Below VITALS:See Below PHYSICAL EXAMINATION: GENERAL: Sitting up in bed, alert, well appearing, well nourished, no distress, non-toxic EYE EXAM: normal conjunctiva. OROPHARYNX: no exudate, no erythema, lips, buccal mucosa, and tongue normal and mucous membranes are moist NECK: supple, no nuchal rigidity, no adenopathy, non-tender LUNGS: Clear to auscultation. Normal chest wall mechanics HEART: no murmurs, S1 normal and S2 normal ABDOMEN: abdomen soft, non-tender, normo-active bowel sounds, no masses, no rebound or guarding. BACK: Back is symmetrical on inspection and there is no deformity, no midline tenderness, no CVA tenderness. SKIN: no rashes and no bruising UPPER EXTREMITIES: upper extremities are grossly normal. LOWER EXTREMITIES: No pitting edema. NEURO EXAM: Normal sensorium, cranial nerves II-XII grossly intact, normal speech, no gross weakness of arms, no gross weakness of legs. MEDICAL DECISION MAKING: Patient is a 74-year-old male who presents ER for the above-stated complaint. IV was established and blood work is obtained. Labs show mild leukocytosis of 12,000. D-dimer was elevated at 980. BMP with a creatinine of 1.7. Baseline creatinine is 1.2 LFTs and bilirubin was unremarkable. Troponin was negative. Chest x-ray with atelectasis is in the lower lungs with atelectasis is in the lower lungs/opacities. CT angio. CT angio of the chest was ordered. Case was discussed with the hospitalist due to the increasing creatinine with the increase in Lasix and the shortness of breath with a 12 pound weight gain. Consults/Care Managements Discussions: Per MDM Triage Nursing notes reviewed. Limited review of prior medical records performed Vital Signs: reviewed and remarkable for no significant abnormalities Differential diagnosis: Differential diagnoses includes but is not limited to pneumonia, bronchitis, COPD/Asthma exacerbation, pneumothorax, pulmonary embolism, congestive heart failure, acute coronary syndrome ER treatment provided: See below Diagnostics interpreted by me include EKG and cardiac monitoring as listed below: -Cardiac Monitoring: An order was placed for continuous cardiac monitoring. The monitor shows a rate of 80 with sinus rhythm. -ECG: Sinus rhythm rate of 72 Left axis PVCs QTc 477 -Laboratory studies:Interpreted by me as stated above in MDM and shown below. Imaging studies: Xrays: As interpreted by me: Provide AP upright 1 view of the chest shows opacities in the bilateral lower lobes CTs show: CT angio the chest was ordered and pending upon admission Procedures:none Critical Care: None Past Med/Surg History Problem List (Updated 01/18/25 @ 23:17 by Jt Colón DO) JUWAN (acute kidney injury) (Acute) D-dimer, elevated (Acute) Shortness of breath (Acute) Pleural plaque COPD with emphysema Abnormal chest CT NSIP (nonspecific interstitial pneumonia) ILD (interstitial lung disease) Acute on chronic diastolic HF (heart failure) Physical deconditioning CHF (congestive heart failure) (Acute) Orthostatic hypotension (Acute) Dizziness on standing Pneumonia Chronic diastolic congestive heart failure Autonomic dysfunction Autonomic postural hypotension Hyponatremia Positional lightheadedness JUWAN (acute kidney injury) (Acute) Leukocytosis (Acute) Cirrhosis Dehydration (Acute) Dizziness (Acute) COVID-19 Depression Hypertension, essential Dizziness (Acute) Generalized weakness (Acute) COVID-19 (Acute) Generalized weakness (Acute) Leukocytosis (Acute) Fever (Acute) Acute exacerbation of CHF (congestive heart failure) (Acute) Shortness of breath (Acute) Bilateral edema of lower extremity (Acute) Recent weight gain (Acute) Hypomagnesemia (Acute) Acute on chronic heart failure with preserved ejection fraction (HFpEF) Chest pressure (Acute) Acute exacerbation of CHF (congestive heart failure) (Acute) Multiple rib fractures (Acute) History of cholecystectomy Previous back surgery Rib pain (Acute 09/10/10) Subacute bacterial endocarditis (Acute 09/24/10) Medical History Anemia Cirrhosis H/O endocarditis DMII (diabetes mellitus, type 2) CKD (chronic kidney disease), stage III Hypertensive urgency Acute decompensated heart failure Opioid type dependence, unspecified Social History Smoking Status: Former smoker Tobacco Type: Cigarettes Cigarettes Per Day: 15; Second Hand Exposure: No; Do You Dip or Chew Tobacco: No; Hx Alcohol Use: No Hx Substance Use: No Preferred Language: Kenyan Communication Ability: Effective Toilet Attendant Required: No Beliefs That Will Affect Care: None marital status: Current Living Situation: Spouse Current Living Situation Comment: lives in two story home with Feels Safe at Home: Yes Assistive Devices: None Allergies Allergies Allergy/AdvReac Type Severity Reaction Status Date / Time lisinopril Allergy Dizziness Verified 07/25/24 22:46 losartan Allergy Dizziness Verified 07/25/24 22:46 Home Meds Home Medications Medication Instructions Recorded Confirmed oxycodone 10 mg tablet 10 mg PO QID 01/02/22 07/25/24 diphenhydramine 25 1 tab PO HS 07/25/24 07/25/24 mg-acetaminophen 500 mg tablet (Tylenol PM Extra Strength) montelukast 10 mg tablet 10 mg PO DAILY 07/25/24 07/25/24 Previous Rx's Medication Instructions Recorded formoterol fumarate 20 mcg/2 mL 2 ml inhalation BID #60 mL 07/31/24 solution for nebulization (Perforomist) lidocaine 4 % topical patch 1 patch topical DAILY #30 ea 07/31/24 tiotropium bromide 18 mcg capsule 1 cap inhalation DAILY #60 07/31/24 with inhalation device inhalations Results & Data (ED) Vital Signs Vital Signs - 24 hr 01/18/25 18:58 01/18/25 19:25 01/18/25 19:55 Temperature 36.6 C Temperature Source Oral Pulse Rate 70 69 Pulse Rate [Apical] Pulse Rhythm Pulse Rhythm [Apical] Pulse Strength [Apical] Respiratory Rate 20 Respiratory Effort / Characteristics Non-Labored Spontaneous Respiratory Depth Normal Respiratory Pattern Regular Blood Pressure 143/60 H Blood Pressure [Right Arm] Blood Pressure Mean 87 Blood Pressure Mean [Right Arm] Blood Pressure Position Sitting Blood Pressure Position [Right Arm] Pulse Oximetry 94 95 Oxygen Delivery Method Room Air Room Air Sepsis Recent Fever Within 48 Hours No Sepsis New/Unexplained Change in Mental Status No Sepsis Action Taken by Nursing No Action Required 01/18/25 19:55 01/18/25 19:55 01/18/25 21:00 Temperature Temperature Source Pulse Rate 70 Pulse Rate [Apical] 70 76 Pulse Rhythm Regular Pulse Rhythm [Apical] Regular Regular Pulse Strength [Apical] Normal Normal Respiratory Rate 18 18 18 Respiratory Effort / Characteristics Non-Labored Spontaneous Non-Labored Spontaneous Respiratory Depth Normal Normal Respiratory Pattern Regular Regular Blood Pressure Blood Pressure [Right Arm] 119/61 141/78 H Blood Pressure Mean Blood Pressure Mean [Right Arm] 80 99 Blood Pressure Position Blood Pressure Position [Right Arm] Semi-fowlers Semi-fowlers Pulse Oximetry 95 98 96 Oxygen Delivery Method Room Air Room Air Room Air Sepsis Recent Fever Within 48 Hours Sepsis New/Unexplained Change in Mental Status Sepsis Action Taken by Nursing Laboratory Data 01/18/25 19:10 01/18/25 19:10 Lab Results 01/18/25 01/18/25 01/18/25 Range/Units 19:10 19:46 20:47 WBC 12.05 H (4.8-10.8) K/ul RBC 3.74 L (4.70-6.10) M/uL Hgb 13.2 L (14.0-18.0) g/dl Hct 38.2 L (42.0-52.0) % MCV 102.1 H (80.0-100.0) fL MCH 35.3 H (25.0-34.0) pg MCHC 34.6 (32.0-36.0) g/dL RDW Std Deviation 53.5 H (36.4-46.3) fL RDW Coeff of Marjorie 14.2 (11.5-14.5) % Plt Count 174 (130-400) K/uL MPV 11.8 (9.4-12.4) fL Immature Gran % (Auto) 0.3 % Neut % (Auto) 72.7 % Lymph % (Auto) 16.9 % Johnson % (Auto) 7.7 % Eos % (Auto) 2.0 % Baso % (Auto) 0.4 % Neut # (Auto) 8.75 H (1.40-6.50) K/uL Lymph # (Auto) 2.04 (1.20-3.40) K/uL Johnson # (Auto) 0.93 H (0.11-0.59) K/uL Eos # (Auto) 0.24 (0.00-0.50) K/uL Baso # (Auto) 0.05 (0.00-0.20) K/uL Immature Gran # (Auto) 0.04 (0.01-0.20) K/uL PT Cancelled 12.0 INR Cancelled 1.1 APTT Cancelled 29 PTT Ratio Cancelled 1.1 D-Dimer Cancelled 980 H* Sodium 136 (136-145) mmol/L Potassium 4.2 (3.5-5.1) mmol/L Chloride 102 (98-107) mmol/L Carbon Dioxide 29 (21-32) mmol/L Anion Gap 5 (3-11) BUN 33 H (6-23) mg/dl Creatinine 1.72 H (0.6-1.4) mg/dl Est Cr Clr Drug Dosing Not Reportable eGFR 40.69 BUN/Creatinine Ratio 19.2 (10-20) Glucose 208 H (70-99(Fasting)) mg/dl Calcium 8.1 L (8.6-10.3) mg/dl Total Bilirubin 1.4 H (0.2-1.0) mg/dl AST 69 H (13-39) U/L ALT 36 (7-52) U/L Alkaline Phosphatase 202 H (34-104) U/L Troponin I High Sens 14.3 (0-20) pg/ml B-Natriuretic Peptide 440 H (0-100) pg/ml Total Protein 7.4 (6.0-8.3) gm/dl Albumin 2.4 L (3.4-5.0) gm/dl Globulin 5.0 H (2.5-4.0) gm/dl Albumin/Globulin Ratio 0.5 L (0.9-2) SARS-CoV-2 (PCR) NEGATIVE (Negative) Influenza Type A (PCR) Negative (Neg) Influenza Type B (PCR) Negative (Neg) RSV (RT-PCR) Negative (Neg) Administered Medications Discontinued Medications Oxycodone HCl (Oxycodone Hcl Ir 5 Mg Tab (Immediate Release)) 10 mg PO NOW STA Stop: 01/18/25 22:31 Last Admin: 01/18/25 22:44 Dose: 10 mg Documented By: mls Imaging Data Radiologist's Impression: Chest X-Ray 01/18/25 19:04 Exam(s): XR CXR 1 VIEW EXAM: XR Chest, 1 View CLINICAL HISTORY: Chest pain, nonspecific. TECHNIQUE: Frontal view of the chest. COMPARISON: 07/29/2024. FINDINGS: Heart is enlarged. Hypoventilation. Redemonstrated small bilateral pleural effusions. Increased bibasilar probable atelectasis. No pneumothorax. Bones are unchanged. IMPRESSION: Hypoventilation with increased bibasilar probable atelectasis. Otherwise no change. Electronically signed by: Gustavo De Guzman M.D. 01/18/25 22:08 PM Discharge Plan Visit Data Chief Complaint: Shortness of Breath/Dyspnea Stated Complaint: CAN'T BREATH CATCH HIS BREATH ED Provider: Jt Colón Discharge Problem: Shortness of breath, D-dimer, elevated, JUWAN (acute kidney injury) Condition: Fair Forms Stand Alone Forms: My [facility] [employer] Prescriptions Prescriptions: No Action oxycodone 10 mg tablet 10 mg PO QID Rx Instructions: take in AM, NOON, PM & BEFORE HS montelukast 10 mg tablet 10 mg PO DAILY diphenhydramine-acetaminophen [Tylenol PM Extra Strength] 25-500 mg Tablet 1 tab PO HS tiotropium bromide 18 mcg capsule, w/inhalation device 1 cap inhalation DAILY Qty: 60 0RF Rx Instructions: puncture 1 cap using device; one dose = 2 inhalations formoterol fumarate [Perforomist] 20 mcg/2 mL solution for nebulization 2 ml inhalation BID Qty: 60 0RF lidocaine 4 % adhesive patch,medicated 1 patch topical DAILY Qty: 30 0RF Referrals Referrals: Jerzy Glez MD [Primary Care Provider] -
[2025-01-18 19:42] LABS: Alanine Aminotransferase 36 U/L (7-52); Albumin Globulin Ratio 0.5 (0.9-2); Albumin Level 2.4 gm/dl (3.4-5.0); Alkaline Phosphatase 202 U/L (34-104); Anion Gap 5 (3-11); Bilirubin,Total 1.4 mg/dl (0.2-1.0); Blood Urea Nitrogen 33 mg/dl (6-23); Calcium 8.1 mg/dl (8.6-10.3); Carbon Dioxide 29 mmol/L (21-32); Chloride 102 mmol/L (98-107); Globulin 5.0 gm/dl (2.5-4.0); Glucose 208 mg/dl (70-99(Fasting)); Potassium 4.2 mmol/L (3.5-5.1); Sodium 136 mmol/L (136-145); Total Protein 7.4 gm/dl (6.0-8.3)
[2025-01-18 20:42] LABS: Influenza A virus by PCR Negative (Neg); Influenza B virus by PCR Negative (Neg); SARS CoV2 RNA(COVID-19) Ceph NEGATIVE (Negative)
[2025-01-18 21:54] LABS: INR 1.1 (0.9-1.1); Partial Thromboplastin Time 29 Seconds (21-31); Prothrombin Time 12.0 Seconds (9.0-12.0)
--- NOTE | 2025-01-18 22:09 | XRay Report ---
Exam(s): XR CXR 1 VIEW EXAM: XR Chest, 1 View CLINICAL HISTORY: Chest pain, nonspecific. TECHNIQUE: Frontal view of the chest. COMPARISON: 07/29/2024. FINDINGS: Heart is enlarged. Hypoventilation. Redemonstrated small bilateral pleural effusions. Increased bibasilar probable atelectasis. No pneumothorax. Bones are unchanged. IMPRESSION: Hypoventilation with increased bibasilar probable atelectasis. Otherwise no change. Electronically signed by: Gustavo De Guzman M.D. 01/18/25 22:08 PM
--- NOTE | 2025-01-18 23:50 | CT Scan Report ---
Exam(s): CTA CHEST IV Amt: 118 cc's optiray 320 EXAM: CT Angiography Chest With Intravenous Contrast CLINICAL HISTORY: PE. PAIN: sob, r/o pe 118 cc's optiray 320 TECHNIQUE: Axial computed tomographic angiography images of the chest with intravenous contrast. CTDI is 26.07 mGy and DLP is 815.75 mGy-cm. Automated exposure control was utilized for the study. A dose lowering technique was utilized adhering to the principles of ALARA. 3D and MIP reconstructed images were created and reviewed. COMPARISON: No relevant prior studies available. FINDINGS: Pulmonary arteries: No pulmonary embolism. Aorta: No thoracic aortic aneurysm or dissection. Atherosclerotic vascular calcifications. Lungs: Mild interval increase in diffuse peripheral interstitial changes greatest in the lung bases. No focal lobar pneumonia. Unchanged scattered nodular densities, largest in the lingula up to 5 mm. Pleural space: Redemonstrated probable pleural thickening with scattered pleural calcifications. No definite free pleural fluid. No pneumothorax. Heart: Mild cardiomegaly. No pericardial effusion. No evidence of RV dysfunction. Coronary artery calcifications. Bones/joints: No acute fracture. Old right rib fractures. Degenerative changes of the spine. Soft tissues: Unremarkable. Lymph nodes: Unremarkable. No enlarged lymph nodes. Adnexa: Limited images of the upper abdomen demonstrates cholecystectomy clips, lobular liver contour consistent with chronic liver disease and a partially fatty replaced pancreas. Borderline enlarged spleen up to 13 cm. IMPRESSION: No pulmonary embolism. Interval increase in bilateral diffuse peripheral interstitial changes. Unchanged not scattered nodular densities largest in the lingula. Probable bilateral pleural thickening with scattered pleural calcifications. Otherwise no change. Electronically signed by: Gustavo De Guzman M.D. 01/18/25 23:49 PM
[2025-01-19] MEDS ORDERED: NITROGLYCERIN SL 0.4 MG/TAB TAB SL PRN (01:41)
[2025-01-19] MEDS ORDERED: POLYETHYLENE (MIRALAX) 17 GM PACK PO PRN (01:41)
[2025-01-19] MEDS ORDERED: ACETAMINOPHEN 325 MG TAB PO PRN (01:41)
--- NOTE | 2025-01-19 02:37 | History & Physical Report ---
Date of Service January 18, 2025 Assessment & Plan (1) JUWAN (acute kidney injury): Plan: 74-year-old male with past medical history significant for hyperlipidemia, asbestosis pneumoconiosis, restrictive lung disease, chronic sinusitis, chronic CHF with preserved ejection fraction, hypertension, orthostatic hypotension, cirrhosis of liver with ascites, protein calorie malnutrition, history of prostate cancer, stage III CKD, chronic pain syndrome, autonomic neuropathy presents with ongoing shortness of breath and found to have JUWAN. Patient recently after coming from [place] gained about 12 pounds and felt bloated in abdomen. Patient was been following with nephrology and his Lasix was increased for his shortness of breath and lower extremity edema. Lower EXTR edema improved but he still short of breath which prompted him to come to the ER. Denies any chest pain. No nausea. No abdominal pain. No fevers. No cough. No runny nose or sore throat. Hemodynamics okay. Family in the room. JUWAN on CKD stage IIIb Baseline creatinine around 1.3 Creatinine 1.7 today will hold diuretics for now Consult nephrology for further recommendations Will follow repeat labs Shortness of breath BNP 440 Troponin 14 Flu and COVID and RSV negative D-dimer is elevated at 980 CTA chest no PE. Interval increase in bilateral diffuse peripheral interstitial changes. History of pneumoconiosis History of interstitial lung disease Continue home inhalers Can consider pulmonary consult Possible acute on chronic heart failure with preserved ejection fraction Holding Lasix for now Consulted cardiology in a.m. History of NAFLD cirrhosis Holding diuretics Will monitor History of prostate cancer Status post surgery Chronic back pain On oxycodone Mild bilirubinemia Chronic elevation History of autonomic orthostasis No longer on midodrine and fludrocortisone Empirically on Cortef for adrenal insufficiency DVT prophylaxis Heparin subcu Disposition Telemetry Full code. History of Present Illness Chief Complaint: Shortness of breath Primary Care Provider: Jerzy Glez MD 74-year-old male with past medical history significant for hyperlipidemia, asbestosis pneumoconiosis, restrictive lung disease, chronic sinusitis, chronic CHF with preserved ejection fraction, hypertension, orthostatic hypotension, cirrhosis of liver with ascites, protein calorie malnutrition, history of prostate cancer, stage III CKD, chronic pain syndrome, autonomic neuropathy presents with ongoing shortness of breath and found to have JUWAN. Patient recently after coming from [place] gained about 12 pounds and felt bloated in abdomen. Patient was been following with nephrology and his Lasix was increased for his shortness of breath and lower extremity edema. Lower EXTR edema improved but he still short of breath which prompted him to come to the ER. Denies any chest pain. No nausea. No abdominal pain. No fevers. No cough. No runny nose or sore throat. Hemodynamics okay. Family in the room. Past medical history. As mentioned above. Past surgical history. Colonoscopy. EGD. EGD with endoscopic ultrasound. Injection of lumbosacral spine. Flexible laryngoscopy. Arthroscopic knee surgery. Bilateral biceps tendon rupture. Sinus surgery. Placement of interstitial device for radiation therapy for prostate. Cholecystectomy laparoscopic. Inguinal hernia repair. Social history. . Quit smoking 1986. Smoked 1 pack a day for 20 years. No alcohol use. No drug use. Family history. Son has aortic stenosis. Father has CAD. Mother had diabetes. Stroke. Father had prostate cancer. Allergies Allergy/AdvReac Type Severity Reaction Status Date / Time lisinopril Allergy Dizziness Verified 07/25/24 22:46 losartan Allergy Dizziness Verified 07/25/24 22:46 Home Medications Medication Instructions Recorded Confirmed Type cholecalciferol (vitamin D3) 50 50 mcg PO DAILY 01/18/25 01/18/25 History mcg (2,000 unit) capsule fluticasone 250 mcg-salmeterol 50 1 inh inhalation BID 01/18/25 01/18/25 History mcg/dose blistr powdr for inhalation furosemide 40 mg tablet 40 mg PO DAILY 01/18/25 01/18/25 History hydrocortisone 5 mg tablet 10 mg PO UD 01/18/25 01/18/25 History metoprolol succinate 25 mg 12.5 mg PO DAILY 01/18/25 01/18/25 History tablet,extended release 24 hr montelukast 10 mg tablet 10 mg PO DAILY 01/18/25 01/18/25 History multivitamin 1 tab PO DAILY 01/18/25 01/18/25 History oxycodone 10 mg tablet 10 mg PO UD 01/18/25 01/18/25 History Past Med/Surg History Problem List (Updated 01/18/25 @ 23:17 by Jt Colón DO) JUWAN (acute kidney injury) (Acute) D-dimer, elevated (Acute) Shortness of breath (Acute) Pleural plaque COPD with emphysema Abnormal chest CT NSIP (nonspecific interstitial pneumonia) ILD (interstitial lung disease) Acute on chronic diastolic HF (heart failure) Physical deconditioning CHF (congestive heart failure) (Acute) Orthostatic hypotension (Acute) Dizziness on standing Pneumonia Chronic diastolic congestive heart failure Autonomic dysfunction Autonomic postural hypotension Hyponatremia Positional lightheadedness JUWAN (acute kidney injury) (Acute) Leukocytosis (Acute) Cirrhosis Dehydration (Acute) Dizziness (Acute) COVID-19 Depression Hypertension, essential Dizziness (Acute) Generalized weakness (Acute) COVID-19 (Acute) Generalized weakness (Acute) Leukocytosis (Acute) Fever (Acute) Acute exacerbation of CHF (congestive heart failure) (Acute) Shortness of breath (Acute) Bilateral edema of lower extremity (Acute) Recent weight gain (Acute) Hypomagnesemia (Acute) Acute on chronic heart failure with preserved ejection fraction (HFpEF) Chest pressure (Acute) Acute exacerbation of CHF (congestive heart failure) (Acute) Multiple rib fractures (Acute) History of cholecystectomy Previous back surgery Rib pain (Acute 09/10/10) Subacute bacterial endocarditis (Acute 09/24/10) Medical History Anemia Cirrhosis H/O endocarditis DMII (diabetes mellitus, type 2) CKD (chronic kidney disease), stage III Hypertensive urgency Acute decompensated heart failure Opioid type dependence, unspecified Social History Smoking Status: Former smoker Tobacco Type: Cigarettes Cigarettes Per Day: 15; Second Hand Exposure: No; Do You Dip or Chew Tobacco: No; Hx Alcohol Use: No Hx Substance Use: No Preferred Language: Dominican Communication Ability: Effective Glycerin Supervisor Required: No Beliefs That Will Affect Care: None marital status: Current Living Situation: Spouse Current Living Situation Comment: lives in two story home with Feels Safe at Home: Yes Safety Concerns: Feels Safe At This Time Assistive Devices: Denture - Upper Review of Systems Review of Systems: All systems reviewed & are unremarkable except as noted in HPI & below Physical Exam Physical Exam: General- Not in distress Head- atraumatic Eyes- PERRL. ENT- oropharynx clear Neck- supple, no JVD. Lungs- clear to auscultation b/l coarse crackles heard, no wheezing Heart- regular rate and rhythm; no murmur, no gallop. Abdomen- normal bowel sounds, soft, nontender, no distension Extremities- no pretibial edema, no erythema seen Neuro- alert, oriented PERRL, no facial palsy; no dysarthria; moves extremities Results & Data Results & Data Vital Signs (Past 12 Hours) Vital Signs Temp Pulse Pulse Resp BP BP Pulse Ox 01/18/25 21:00 76 18 141/78 H 96 01/18/25 19:55 70 18 98 01/18/25 19:55 70 18 119/61 95 01/18/25 19:55 95 01/18/25 19:25 69 01/18/25 18:58 36.6 C 70 20 143/60 H 94 O2 Del Method 01/18/25 21:00 Room Air 01/18/25 19:55 Room Air 01/18/25 19:55 Room Air 01/18/25 19:55 Room Air 01/18/25 19:25 01/18/25 18:58 Room Air Diagnostic Findings Laboratory Results WBC 12.05 K/ul (4.8-10.8) H 01/18/25 19:10 RBC 3.74 M/uL (4.70-6.10) L 01/18/25 19:10 Hgb 13.2 g/dl (14.0-18.0) L 01/18/25 19:10 Hct 38.2 % (42.0-52.0) L 01/18/25 19:10 MCV 102.1 fL (80.0-100.0) H 01/18/25 19:10 MCH 35.3 pg (25.0-34.0) H 01/18/25 19:10 MCHC 34.6 g/dL (32.0-36.0) 01/18/25 19:10 RDW Std Deviation 53.5 fL (36.4-46.3) H 01/18/25 19:10 RDW Coeff of Marjorie 14.2 % (11.5-14.5) 01/18/25 19:10 Plt Count 174 K/uL (130-400) 01/18/25 19:10 MPV 11.8 fL (9.4-12.4) 01/18/25 19:10 Immature Gran % (Auto) 0.3 % 01/18/25 19:10 Neut % (Auto) 72.7 % 01/18/25 19:10 Lymph % (Auto) 16.9 % 01/18/25 19:10 [place] % (Auto) 7.7 % 01/18/25 19:10 Eos % (Auto) 2.0 % 01/18/25 19:10 Baso % (Auto) 0.4 % 01/18/25 19:10 Neut # (Auto) 8.75 K/uL (1.40-6.50) H 01/18/25 19:10 Lymph # (Auto) 2.04 K/uL (1.20-3.40) 01/18/25 19:10 [place] # (Auto) 0.93 K/uL (0.11-0.59) H 01/18/25 19:10 Eos # (Auto) 0.24 K/uL (0.00-0.50) 01/18/25 19:10 Baso # (Auto) 0.05 K/uL (0.00-0.20) 01/18/25 19:10 Immature Gran # (Auto) 0.04 K/uL (0.01-0.20) 01/18/25 19:10 PT 12.0 Seconds (9.0-12.0) 01/18/25 20:47 INR 1.1 (0.9-1.1) 01/18/25 20:47 APTT 29 Seconds (21-31) 01/18/25 20:47 PTT Ratio 1.1 01/18/25 20:47 D-Dimer 980 ug/L FEU (0-500) H* 01/18/25 20:47 Sodium 136 mmol/L (136-145) 01/18/25 19:10 Potassium 4.2 mmol/L (3.5-5.1) 01/18/25 19:10 Chloride 102 mmol/L (98-107) 01/18/25 19:10 Carbon Dioxide 29 mmol/L (21-32) 01/18/25 19:10 Anion Gap 5 (3-11) 01/18/25 19:10 BUN 33 mg/dl (6-23) H 01/18/25 19:10 Creatinine 1.72 mg/dl (0.6-1.4) H 01/18/25 19:10 Est Cr Clr Drug Dosing Not Reportable 01/18/25 19:10 eGFR 40.69 01/18/25 19:10 BUN/Creatinine Ratio 19.2 (10-20) 01/18/25 19:10 Glucose 208 mg/dl (70-99(Fasting)) H 01/18/25 19:10 Calcium 8.1 mg/dl (8.6-10.3) L 01/18/25 19:10 Total Bilirubin 1.4 mg/dl (0.2-1.0) H 01/18/25 19:10 AST 69 U/L (13-39) H 01/18/25 19:10 ALT 36 U/L (7-52) 01/18/25 19:10 Alkaline Phosphatase 202 U/L (34-104) H 01/18/25 19:10 Troponin I High Sens 14.3 pg/ml (0-20) 01/18/25 19:10 B-Natriuretic Peptide 440 pg/ml (0-100) H 01/18/25 19:10 Total Protein 7.4 gm/dl (6.0-8.3) 01/18/25 19:10 Albumin 2.4 gm/dl (3.4-5.0) L 01/18/25 19:10 Globulin 5.0 gm/dl (2.5-4.0) H 01/18/25 19:10 Albumin/Globulin Ratio 0.5 (0.9-2) L 01/18/25 19:10 SARS-CoV-2 (PCR) NEGATIVE (Negative) 01/18/25 19:46 Influenza Type A (PCR) Negative (Neg) 01/18/25 19:46 Influenza Type B (PCR) Negative (Neg) 01/18/25 19:46 RSV (RT-PCR) Negative (Neg) 01/18/25 19:46 Impressions Chest X-Ray 01/18/25 19:04 Exam(s): XR CXR 1 VIEW EXAM: XR Chest, 1 View CLINICAL HISTORY: Chest pain, nonspecific. TECHNIQUE: Frontal view of the chest. COMPARISON: 07/29/2024. FINDINGS: Heart is enlarged. Hypoventilation. Redemonstrated small bilateral pleural effusions. Increased bibasilar probable atelectasis. No pneumothorax. Bones are unchanged. IMPRESSION: Hypoventilation with increased bibasilar probable atelectasis. Otherwise no change. Electronically signed by: Gustavo De Guzman M.D. 01/18/25 22:08 PM Chest CTA 01/18/25 22:40 Exam(s): CTA CHEST IV Amt: 118 cc's optiray 320 EXAM: CT Angiography Chest With Intravenous Contrast CLINICAL HISTORY: PE. PAIN: sob, r/o pe 118 cc's optiray 320 TECHNIQUE: Axial computed tomographic angiography images of the chest with intravenous contrast. CTDI is 26.07 mGy and DLP is 815.75 mGy-cm. Automated exposure control was utilized for the study. A dose lowering technique was utilized adhering to the principles of ALARA. 3D and MIP reconstructed images were created and reviewed. COMPARISON: No relevant prior studies available. FINDINGS: Pulmonary arteries: No pulmonary embolism. Aorta: No thoracic aortic aneurysm or dissection. Atherosclerotic vascular calcifications. Lungs: Mild interval increase in diffuse peripheral interstitial changes greatest in the lung bases. No focal lobar pneumonia. Unchanged scattered nodular densities, largest in the lingula up to 5 mm. Pleural space: Redemonstrated probable pleural thickening with scattered pleural calcifications. No definite free pleural fluid. No pneumothorax. Heart: Mild cardiomegaly. No pericardial effusion. No evidence of RV dysfunction. Coronary artery calcifications. Bones/joints: No acute fracture. Old right rib fractures. Degenerative changes of the spine. Soft tissues: Unremarkable. Lymph nodes: Unremarkable. No enlarged lymph nodes. Adnexa: Limited images of the upper abdomen demonstrates cholecystectomy clips, lobular liver contour consistent with chronic liver disease and a partially fatty replaced pancreas. Borderline enlarged spleen up to 13 cm. IMPRESSION: No pulmonary embolism. Interval increase in bilateral diffuse peripheral interstitial changes. Unchanged not scattered nodular densities largest in the lingula. Probable bilateral pleural thickening with scattered pleural calcifications. Otherwise no change. Electronically signed by: Gustavo De Guzman M.D. 01/18/25 23:49 PM ECG Additional Comments: ECG. Atrial fibrillation with PVCs rate of 72. Moderate voltage criteria for LVH. QTc 477 Code Status & VTE Plan VTE Prophylaxis Plan VTE Prophylaxis will be ordered: Yes
[2025-01-19] MEDS: HEPARIN SOD 5,000 UNIT/0.5 ML VIAL SQ SCH (05:19)
[2025-01-19 08:17] LABS: Hematocrit (blood only) 35.4 % (42.0-52.0); Hemoglobin 12.2 g/dl (14.0-18.0); Immature Granulocytes # (auto) 0.03 K/uL (0.01-0.20); Immature Granulocytes % (auto) 0.2 %; Mean Corpuscular Hemoglobin 34.9 pg (25.0-34.0); Mean Corpuscular Volume 101.1 fL (80.0-100.0); Platelet Count 142 K/uL (130-400); RDW Standard Deviation 52.8 fL (36.4-46.3); Red Blood Count 3.50 M/uL (4.70-6.10); White Blood Count 12.41 K/ul (4.8-10.8)
[2025-01-19] MEDS: METOPROLOL SUCC 25MG EXT REL TAB PO SCH (08:24)
[2025-01-19] MEDS: MULTIVITAMIN TAB PO SCH (08:24)
[2025-01-19] MEDS: CHOLECALCIFEROL 25 MCG (1000 UNITS) TAB PO SCH (08:24)
[2025-01-19] MEDS: MONTELUKAST SODIUM 10 MG TABLET PO SCH (08:24)
[2025-01-19] MEDS: FLUTICASONE/VILANTEROL 200/25MCG 14 PUFFS/INHALER INH SCH (08:24)
[2025-01-19] MEDS: HYDROCORTISONE 10 MG TAB PO SCH ×2 (08:24→21:06)
[2025-01-19 08:34] LABS: Anion Gap 6.0 (3-11); Blood Urea Nitrogen 35.0 mg/dl (6-23); Calcium 7.8 mg/dl (8.6-10.3); Carbon Dioxide 29.0 mmol/L (21-32); Chloride 104.0 mmol/L (98-107); Creatinine Clr Calc Pharmacy 49.7 ml/min; Glucose 106.0 mg/dl (70-99(Fasting)); Magnesium 1.9 mg/dl (1.7-2.4); Potassium 3.8 mmol/L (3.5-5.1); Sodium 139.0 mmol/L (136-145)
--- NOTE | 2025-01-19 10:37 | Hospitalist Progress Note ---
Date of Service January 19, 2025 Assessment & Plan (1) JUWAN (acute kidney injury): Plan: 74-year-old male with past medical history significant for hyperlipidemia, asbestosis pneumoconiosis, restrictive lung disease, chronic sinusitis, chronic CHF with preserved ejection fraction, hypertension, orthostatic hypotension, cirrhosis of liver with ascites, protein calorie malnutrition, history of prostate cancer, stage III CKD, chronic pain syndrome, autonomic neuropathy presents with ongoing shortness of breath and found to have JUWAN. Patient recently after coming from [place] gained about 12 pounds and felt bloated in abdomen. Patient was been following with nephrology and his Lasix was increased for his shortness of breath and lower extremity edema. Lower EXTR edema improved but he still short of breath which prompted him to come to the ER. Denies any chest pain. No nausea. No abdominal pain. No fevers. No cough. No runny nose or sore throat. Hemodynamics okay. Family in the room. Shortness of breath Likely interstitial lung disease Patient presents to the hospital with shortness of breath despite being treated for CHF with diuretics CTA chest shows interval increase in bilateral diffuse peripheral interstitial changes Was previously evaluated by pulmonology during hospitalization in July 2024 for similar concern; BNP elevated Will consult pulmonology for further recommendations; supplemental oxygen if SpO2 is less than 90% Obtain echocardiogram Continue home inhalers JUWAN on CKD-presented with creatinine of 1.7; baseline of 1.3. Hold diuretics. Nephrology consulted HFpEF, compensatedcontinue to hold Lasix for now History of NAFLD cirrhosis Holding diuretics Will monitor History of prostate cancer Status post surgery Chronic back pain On oxycodone-continue Mild bilirubinemia Chronic elevation History of autonomic orthostasis No longer on midodrine and fludrocortisone Empirically on Cortef for adrenal insufficiency DVT prophylaxis Heparin subcu Disposition Telemetry Full code. Time spent evaluating patient, direct bedside care, chart review, placing orders, interpretation of diagnostic studies, discussion with consultants, patient, and family members, as well as other required patient management activities is 50 minutes Please note the above document was generated using voice recognition software. It may contain grammatical, syntax or spelling errors. Any formal questions or concerns about the content, text or information contained within the body of this dictation should be directly addressed to the provider for clarification Admission and Anticipated Discharge Date Admission Date: January 18, 2025 Subjective Patient seen and examined at bedside. He is lying in the bed comfortably; reports that he is shortness of breath is similar to at baseline. He is saturating well in room air at this time. Review of Systems Review of Systems: All systems reviewed & are unremarkable except as noted in Subjective Physical Exam Physical Exam: General- Not in distress Head- atraumatic Eyes- PERRL. ENT- oropharynx clear Neck- supple, no JVD. Lungs- Bilateral basilar coarse crackles heard Heart- regular rate and rhythm; no murmur, no gallop. Abdomen- normal bowel sounds, soft, nontender, no distension Extremities- no pretibial edema, no erythema seen Neuro- alert, oriented PERRL, no facial palsy; no dysarthria; moves extremities Results & Data Results & Data Vital Signs (Past 12 Hours) Vital Signs Temp Pulse Resp BP Pulse Ox Pulse Ox O2 Del Method 01/19/25 09:47 Room Air 01/19/25 07:19 36.7 C 67 18 129/62 94 Room Air 01/19/25 05:22 36.8 C 84 20 177/48 H 90 Room Air 01/19/25 05:01 Room Air 01/19/25 04:00 70 19 122/72 90 Room Air 01/19/25 03:00 71 20 140/72 92 Room Air 01/19/25 02:00 93 01/19/25 02:00 74 18 149/85 H 93 Room Air 01/19/25 01:00 71 18 124/38 L 93 Room Air 01/18/25 23:00 76 18 122/69 95 Room Air O2 Del Method 01/19/25 09:47 01/19/25 07:19 01/19/25 05:22 01/19/25 05:01 01/19/25 04:00 01/19/25 03:00 01/19/25 02:00 Room Air 01/19/25 02:00 01/19/25 01:00 01/18/25 23:00
--- NOTE | 2025-01-19 10:46 | Nephrology Consultation ---
Date of Consultation January 19, 2025 Assessment & Plan (1) JUWAN (acute kidney injury): Creat baseline 1.3 Admission was 1.7 and this AM is 1.5. so JUWAN already impriving. JUWAN likely related with hemodynamic issues. for today No lasix and No IVF. Making urine. Currently I dont see much evidence of Fluid overload. Quite possible SOB is mainly driven by pulm issues. But given he had 12 lbs wt gain likely has Some fluid overload also. Given that he had IV contrast yesterday 01/18 I will like to hold off on Diuretics today. Depending on his labs in AM tomorrow can decide about restarting the Diuretics. Contrast nephropathy typically manifest abut 48--72 hrs post Contrast. (2) Shortness of breath: Likely Pulmonary. currently on RA and no Overt distress. But given he had 12 lbs wt gain likely has Some fluid overload also. Plan time spent 62 mins History of Present Illness Reason for Consultation: JUWAN on background CKD with Dyspnea Attending Physician: Fish Bullock MD History of Present Illness 74/M with CKD 3 A baseline creat around 1.3, asbestosis pneumoconiosis, restrictive lung disease, chronic sinusitis, chronic CHF with preserved ejection fraction, hypertension, h/o orthostatic hypotension, cirrhosis of liver with ascites, protein calorie malnutrition, history of prostate cancer, chronic pain syndrome, autonomic neuropathy presented to ED with ongoing shortness of breath and was found to have JUWAN. Patient recently [place] gained about 12 pounds and has been feeling bloated abdomen. Lasix was increased for his shortness of breath and lower extremity edema. He sees both nephrology and Cardiology. Lower EXTR edema improved but he was still short of breath which prompted him to come to the ER. CT angio with Contrast done and negative for PE. Denies any chest pain. No nausea. No abdominal pain. No fevers. No cough. No runny nose or sore throat. Hemodynamics acceptable--94% RA. Creat baseline 1.3 Admission was 1.7 and this AM is 1.5. No lasix and No IVF since admission. Making urine ROS--12 Systems reviewed and otherwise negative Physical Exam Physical Exam: General- Not in distress. 94% RA Head- atraumatic, oropharynx clear, MM moist Neck- supple, no JVD. Lungs- clear to auscultation b/l occ coarse crackles heard, no wheezing Heart- regular rate and rhythm; no murmur, no gallop. Abdomen- soft, nontender, no distension Extremities- no edema Neuro- alert, oriented Allergies Allergy/AdvReac Type Severity Reaction Status Date / Time lisinopril Allergy Dizziness Verified 07/25/24 22:46 losartan Allergy Dizziness Verified 07/25/24 22:46 Home Medications Medication Instructions Recorded Confirmed Type cholecalciferol (vitamin D3) 50 50 mcg PO DAILY 01/18/25 01/18/25 History mcg (2,000 unit) capsule fluticasone 250 mcg-salmeterol 50 1 inh inhalation BID 01/18/25 01/18/25 History mcg/dose blistr powdr for inhalation furosemide 40 mg tablet 40 mg PO DAILY 01/18/25 01/18/25 History hydrocortisone 5 mg tablet 10 mg PO UD 01/18/25 01/18/25 History metoprolol succinate 25 mg 12.5 mg PO DAILY 01/18/25 01/18/25 History tablet,extended release 24 hr montelukast 10 mg tablet 10 mg PO DAILY 01/18/25 01/18/25 History multivitamin 1 tab PO DAILY 01/18/25 01/18/25 History oxycodone 10 mg tablet 10 mg PO UD 01/18/25 01/18/25 History Patient History Medical History Anemia Cirrhosis H/O endocarditis DMII (diabetes mellitus, type 2) CKD (chronic kidney disease), stage III Hypertensive urgency Acute decompensated heart failure Opioid type dependence, unspecified Social History Smoking Status: Former smoker Tobacco Type: Cigarettes Cigarettes Per Day: 15; Second Hand Exposure: No; Do You Dip or Chew Tobacco: No; Hx Alcohol Use: No Hx Substance Use: No Preferred Language: Chinese Communication Ability: Effective Acid Remover Required: No Beliefs That Will Affect Care: None marital status: Current Living Situation: Spouse Current Living Situation Comment: lives in two story home with Feels Safe at Home: Yes Safety Concerns: Feels Safe At This Time Assistive Devices: Denture - Upper Results & Data Vital Signs (Past 12 Hours) Vital Signs Temp Pulse Resp BP Pulse Ox Pulse Ox O2 Del Method 01/19/25 10:44 36.6 C 70 16 141/61 H 94 Room Air 01/19/25 09:47 Room Air 01/19/25 07:19 36.7 C 67 18 129/62 94 Room Air 01/19/25 05:22 36.8 C 84 20 177/48 H 90 Room Air 01/19/25 05:01 Room Air 01/19/25 04:00 70 19 122/72 90 Room Air 01/19/25 03:00 71 20 140/72 92 Room Air 01/19/25 02:00 93 01/19/25 02:00 74 18 149/85 H 93 Room Air 01/19/25 01:00 71 18 124/38 L 93 Room Air 01/18/25 23:00 76 18 122/69 95 Room Air O2 Del Method 01/19/25 10:44 01/19/25 09:47 01/19/25 07:19 01/19/25 05:22 01/19/25 05:01 01/19/25 04:00 01/19/25 03:00 01/19/25 02:00 Room Air 01/19/25 02:00 01/19/25 01:00 01/18/25 23:00 Laboratory Results CBC, renal panel Diagnostic Findings CT angio Chest--no PE, NO pneumonia. Interval increase in bilateral diffuse peripheral interstitial changes.
--- NOTE | 2025-01-19 11:33 | Pulmonary Consultation ---
Date of Consultation January 19, 2025 Assessment & Plan (1) Shortness of breath: (2) Pleural plaque: (3) COPD with emphysema: (4) Abnormal chest CT: (5) ILD (interstitial lung disease): (6) NSIP (nonspecific interstitial pneumonia): (7) Restrictive lung disease: (8) Peripheral eosinophilia: Plan CT chest 01/18/2025 personally reviewed: Centrilobular emphysema appreciated bilaterally Motion degraded study Patchy ground glass opacities appreciated on the periphery especially in the upper lobes bilaterally Question mild bronchiectasis Multiple pulmonary nodules appreciated bilaterally Calcified pleural plaques appreciated bilaterally on the posterior side Cardiomegaly Minimal hilar and subcarinal lymphadenopathy 2D echo 03/02/2024: EF 50-55%, moderate aortic valve sclerosis, no stenosis, g rade 2 diastolic dysfunction, mild concentric LVH, mild MR, mild TR, RV normal in size and function --Exertional shortness of breath Multifactorial > 06-[id number]-[id number] smoking history, CPFE ILD Worked in [employer] Restrictive lung disease from ILD SONYA was only mildly positive at 1: 160 His hypersensitive pneumonitis panel was significantly positive, 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 HP can also be playing a role in trial of prednisone can be thought of as an outpatient I will defer to the patient's primary steam pan sponger which is Dr. Kolb No personal or family history of autoimmune disease like lupus, sarcoid, Sjogren's, rheumatoid No Raynaud's, no dry eyes, no dry mouth, no difficulty swallowing Based on the physical exam, CAT scan of the chest and history, I do think patient has ILD like picture which seems to be progressively getting worse compared to CAT scan of the chest 01/2023 I do not feel significant worsening in the ILD compared to the CAT scan which was done 07/2024, I do recommend high-resolution CAT scan as an outpatient Labs 07/27/2024: SONYA positive, 1: 160, nuclear speckled, negative for myeloperoxidase, antiproteinase 3 and antineutrophil antibody Hypersensitive pneumonitis panel was positive for A. Alternaria, Cladosporium, penicillium as well as Phoma species ESR 55, NICA level 85 (normal up to 67) --COPD with emphysema Not on any inhalers at home On Advair HFA at home, recommend to add Incruse or Spiriva to the regimen On Singulair He might be a good candidate for biologic in future if need be with respect to his COPD Absolute eosinophil count 460 on 01/19/2025, has been as high as 650 on 07/26/2024 --Ex-smoker Approximately [id number] smoking history, quit around the age of 34 Encouraged to continue abstinence from smoking Patient with liver cirrhosis could have portal pulmonary hypertension which will give orthodeoxia. The latest 2D echo done February 2024 did not show any signs of pulmonary hypertension Plan: Given the elevated eosinophil count I am going to order RAST panel along with IgE to be done tomorrow along with tryptase Patient is on low-dose Advair, I would recommend to increase it to medium dose Advair HFA and add Spiriva or Incruse to the regimen Doxycycline to be taken given for 5 days Mucinex along with flutter valve to help him bring up the phlegm All questions and queries of the patient as well as patient's daughter were answered in depth I spent more than 75 minutes looking in the chart, images, discussing the plan of care with the patient, RN as well as primary team Please note the above document was generated using voice recognition software. It may contain grammatical, syntax or spelling errors.Any formal questions or concerns about the content, text or information contained within the body of this dictation should be directly addressed to the provider for clarification. History of Present Illness Attending Physician: Fish Bullock MD History of Present Illness 74-year-old male admitted to the hospital for shortness of breath Past medical history: HFpEF, orthostatic hypotension, history of endocarditis, nonalcoholic fatty liver disease, prostate cancer Pulmonary consulted for abnormal chest CT Patient's daughter and son-in-law were in the room at the time of examination Patient says that he went to a fishing trip and when he came back he had again approximately 15 pounds He was complaining of worsening shortness of breath and belly distention He says he is compliant with his medication but on asking whether he was taking furosemide he was not sure. Denies any fever or chills No dysuria or diarrhea No unusual headache or blurry vision Has been coughing but is having difficulty bringing up the phlegm As urged to clear his throat on a regular basis. No nausea or vomiting Patient's is in the room at the time of examination. Patient was sleeping when I entered the room but he was easily arousable. No personal or family history of autoimmune disease like lupus, sarcoid, Sjogren's, rheumatoid No Raynaud's, no dry eyes, no dry mouth, no difficulty swallowing No history of lung disease in the family that he knows of Social history: 72-pern-zcxk smoking history, quit around the age of 34, used to work in [employer] Pets: Dogs at home. No birds or poultry nearby, did not grow up on a farm No history of lung cancer in the family Allergies Allergy/AdvReac Type Severity Reaction Status Date / Time lisinopril Allergy Dizziness Verified 07/25/24 22:46 losartan Allergy Dizziness Verified 07/25/24 22:46 Home Medications Medication Instructions Recorded Confirmed Type cholecalciferol (vitamin D3) 50 50 mcg PO DAILY 01/18/25 01/18/25 History mcg (2,000 unit) capsule fluticasone 250 mcg-salmeterol 50 1 inh inhalation BID 01/18/25 01/18/25 History mcg/dose blistr powdr for inhalation furosemide 40 mg tablet 40 mg PO DAILY 01/18/25 01/18/25 History hydrocortisone 5 mg tablet 10 mg PO UD 01/18/25 01/18/25 History metoprolol succinate 25 mg 12.5 mg PO DAILY 01/18/25 01/18/25 History tablet,extended release 24 hr montelukast 10 mg tablet 10 mg PO DAILY 01/18/25 01/18/25 History multivitamin 1 tab PO DAILY 01/18/25 01/18/25 History oxycodone 10 mg tablet 10 mg PO UD 01/18/25 01/18/25 History Patient History Medical History Anemia Cirrhosis H/O endocarditis DMII (diabetes mellitus, type 2) CKD (chronic kidney disease), stage III Hypertensive urgency Acute decompensated heart failure Opioid type dependence, unspecified Social History Smoking Status: Former smoker Tobacco Type: Cigarettes Cigarettes Per Day: 15; Second Hand Exposure: No; Do You Dip or Chew Tobacco: No; Hx Alcohol Use: No Hx Substance Use: No Preferred Language: Irish Communication Ability: Effective Bottle Dealer Required: No Beliefs That Will Affect Care: None marital status: Current Living Situation: Spouse Current Living Situation Comment: lives in two story home with Feels Safe at Home: Yes Safety Concerns: Feels Safe At This Time Assistive Devices: Denture - Upper Review of Systems 2 Review of Systems: All systems reviewed & are unremarkable except as noted in HPI & below Physical Exam 2 Physical Exam: Constitutional: No acute distress HEENT: EOMI, PERRLA Respiratory system: Decreased air entry bilaterally, no wheeze, no rhonchi, positive Velcro-like crackles appreciated bilaterally CVS: S1-S2 positive, no murmurs or gallops Abdomen: Soft, nontender, nondistended, positive bowel sounds x4 Extremities: +2 pulses bilaterally radialis/ dorsalis pedis, no cyanosis, no edema Neuro: Awake alert oriented x3 Psych: Normal mood and affect G/U: No Lomax Skin: no rashes, warm and dry Lymphatic: no cervical or axillary lymphadenopathy Results & Data Results & Data Vital Signs (Past 12 Hours) Vital Signs Temp Pulse Resp BP Pulse Ox Pulse Ox O2 Del Method 01/19/25 10:44 36.6 C 70 16 141/61 H 94 Room Air 01/19/25 09:47 Room Air 01/19/25 07:19 36.7 C 67 18 129/62 94 Room Air 01/19/25 05:22 36.8 C 84 20 177/48 H 90 Room Air 01/19/25 05:01 Room Air 01/19/25 04:00 70 19 122/72 90 Room Air 01/19/25 03:00 71 20 140/72 92 Room Air 01/19/25 02:00 93 01/19/25 02:00 74 18 149/85 H 93 Room Air 01/19/25 01:00 71 18 124/38 L 93 Room Air O2 Del Method 01/19/25 10:44 01/19/25 09:47 01/19/25 07:19 01/19/25 05:22 01/19/25 05:01 01/19/25 04:00 01/19/25 03:00 01/19/25 02:00 Room Air 01/19/25 02:00 01/19/25 01:00 Laboratory Results 01/19/25 07:39 01/19/25 07:39 PG Care Time/CCT Total # of Minutes Spent Total Time Spent with Patient: Total time spent is greater than 50% in coordination of care (as documented) at patient's floor/unit and/or counseling patient: Coding Level of Care Code 96498 INT INP/OBS CARE 75MIN Diagnoses Shortness of breath R06.02 Pleural plaque J92.9 COPD with emphysema J43.[address] R93.89 ILD (interstitial lung disease) J84.9 NSIP (nonspecific interstitial pneumonia) J84.89 Restrictive lung disease J98.4 Peripheral eosinophilia D72.19
[2025-01-19] MEDS: UMECLIDINIUM BROMIDE 62.5MCG/BLISTER 7 PUFFS/INHALER INH SCH (15:59)
--- NOTE | 2025-01-19 16:45 | Electrocardiogram Report ---
Test Reason : Blood Pressure : */* mmHG Vent. Rate : 72 BPM Atrial Rate : * BPM P-R Int : * ms QRS Dur : 110 ms QT Int : 436 ms P-R-T Axes : * -27 29 degrees QTcB Int : 477 ms SInus rhythm with PVCs Moderate voltage criteria for LVH, may be normal variant Abnormal ECG Confirmed by Hany Moreland ([id number]) on 01/19/2025 4:45:09 PM Referred By: REFERRED SELF Confirmed By: Hany Moreland
--- NOTE | 2025-01-19 18:01 | XCELERA ---
[id number]
[2025-01-19] MEDS: DOXYCYCLINE HYCLATE 100 MG CAP PO SCH (21:06)
[2025-01-20 08:30] LABS: Hematocrit (blood only) 35.0 % (42.0-52.0); Hemoglobin 11.6 g/dl (14.0-18.0); Immature Granulocytes # (auto) 0.03 K/uL (0.01-0.20); Immature Granulocytes % (auto) 0.3 %; Mean Corpuscular Hemoglobin 34.0 pg (25.0-34.0); Mean Corpuscular Volume 102.6 fL (80.0-100.0); Platelet Count 130 K/uL (130-400); RDW Standard Deviation 53.4 fL (36.4-46.3); Red Blood Count 3.41 M/uL (4.70-6.10); White Blood Count 10.74 K/ul (4.8-10.8)
[2025-01-20 08:45] LABS: Anion Gap 3.0 (3-11); Blood Urea Nitrogen 32.0 mg/dl (6-23); Calcium 7.8 mg/dl (8.6-10.3); Carbon Dioxide 28.0 mmol/L (21-32); Chloride 106.0 mmol/L (98-107); Creatinine Clr Calc Pharmacy 55.3 ml/min; Glucose 168.0 mg/dl (70-99(Fasting)); Potassium 4.4 mmol/L (3.5-5.1); Sodium 137.0 mmol/L (136-145)
--- NOTE | 2025-01-20 10:29 | Pulmonology Progress Note ---
Date of Service January 20, 2025 Assessment & Plan (1) Shortness of breath: (2) Pleural plaque: (3) COPD with emphysema: (4) Abnormal chest CT: (5) ILD (interstitial lung disease): (6) NSIP (nonspecific interstitial pneumonia): (7) Restrictive lung disease: (8) Peripheral eosinophilia: Plan CT chest 01/18/2025 personally reviewed: Centrilobular emphysema appreciated bilaterally Motion degraded study Patchy ground glass opacities appreciated on the periphery especially in the upper lobes bilaterally Question mild bronchiectasis Multiple pulmonary nodules appreciated bilaterally Calcified pleural plaques appreciated bilaterally on the posterior side Cardiomegaly Minimal hilar and subcarinal lymphadenopathy 2D echo 03/02/2024: EF 50-55%, moderate aortic valve sclerosis, no stenosis, g rade 2 diastolic dysfunction, mild concentric LVH, mild MR, mild TR, RV normal in size and function --Exertional shortness of breath Multifactorial > 24-tulf-ejwj smoking history, CPFE ILD Worked in [employer] Restrictive lung disease from ILD SONYA was only mildly positive at 1: 160 His hypersensitive pneumonitis panel was significantly positive, 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 HP can also be playing a role in trial of prednisone can be thought of as an outpatient I will defer to the patient's primary passenger service supervisor which is Dr. Kolb No personal or family history of autoimmune disease like lupus, sarcoid, Sjogren's, rheumatoid No Raynaud's, no dry eyes, no dry mouth, no difficulty swallowing Based on the physical exam, CAT scan of the chest and history, I do think patient has ILD like picture which seems to be progressively getting worse compared to CAT scan of the chest 01/2023 I do not feel significant worsening in the ILD compared to the CAT scan which was done 07/2024, I do recommend high-resolution CAT scan as an outpatient Labs 07/27/2024: SONYA positive, 1: 160, nuclear speckled, negative for myeloperoxidase, antiproteinase 3 and antineutrophil antibody Hypersensitive pneumonitis panel was positive for A. Alternaria, Cladosporium, penicillium as well as Phoma species ESR 55, NICA level 85 (normal up to 67) --COPD with emphysema Not on any inhalers at home On Advair HFA at home, recommend to add Incruse or Spiriva to the regimen On Singulair He might be a good candidate for biologic in future if need be with respect to his COPD Absolute eosinophil count 460 on 01/19/2025, has been as high as 650 on 07/26/2024 --Ex-smoker Approximately 45-fshz-inpq smoking history, quit around the age of 34 Encouraged to continue abstinence from smoking Patient with liver cirrhosis could have portal pulmonary hypertension which will give orthodeoxia. The latest 2D echo done February 2024 did not show any signs of pulmonary hypertension Plan: Follow-up RAST panel along with IgE and tryptase given the elevated eosinophil count Patient is on low-dose Advair, I would recommend to increase it to medium dose Advair HFA and add Spiriva or Incruse to the regimen Doxycycline to be taken given for 5 days Mucinex along with flutter valve to help him bring up the phlegm Case discussed with RN and primary team Follow-up with primary passenger service supervisor on discharge No further recommendation from pulmonary perspective, will sign off Please call directly with any questions Please note the above document was generated using voice recognition software. It may contain grammatical, syntax or spelling errors.Any formal questions or concerns about the content, text or information contained within the body of this dictation should be directly addressed to the provider for clarification. Admission and Anticipated Discharge Date Admission Date: January 18, 2025 Subjective Patient seen and examined at bedside. No acute distress, noted with chills overnight He was sleeping when I entered the room He was saturating 92-93% on room air. Denied any chest pain Said appetite, no nausea vomiting Stated that the breathing is improving Has been afebrile Review of Systems 2 Review of Systems: All systems reviewed & are unremarkable except as noted in Subjective Physical Exam 2 Physical Exam: Constitutional: No acute distress HEENT: EOMI, PERRLA Respiratory system: Decreased air entry bilaterally, no wheeze, no rhonchi, positive Velcro-like crackles appreciated bilaterally more on the right side CVS: S1-S2 positive, no murmurs or gallops Abdomen: Soft, nontender, nondistended, positive bowel sounds x4 Extremities: +2 pulses bilaterally radialis/ dorsalis pedis, no cyanosis, no edema, onychomycosis appreciated bilateral fingers Neuro: Awake alert oriented x3 Psych: Normal mood and affect G/U: No Lomax Skin: no rashes, warm and dry Lymphatic: no cervical or axillary lymphadenopathy Results & Data Results & Data Vital Signs (Past 12 Hours) Vital Signs Temp Pulse Pulse Resp BP Pulse Ox O2 Del Method 01/20/25 07:37 36.7 C 64 18 163/64 H 92 Room Air 01/20/25 04:00 36.6 C 73 17 133/62 92 Room Air 01/20/25 00:30 36.7 C 79 19 155/62 H 90 Room Air 01/19/25 23:00 73 Laboratory Results 01/20/25 08:04 01/20/25 08:04 PG Care Time/CCT Total # of Minutes Spent Total Time Spent with Patient: Total time spent is greater than 50% in coordination of care (as documented) at patient's floor/unit and/or counseling patient: Coding Level of Care Code 34897 SUB INP/OBS CARE 2/35MIN Diagnoses Shortness of breath R06.02 Pleural plaque J92.9 COPD with emphysema J43.[address] R93.89 ILD (interstitial lung disease) J84.9 NSIP (nonspecific interstitial pneumonia) J84.89 Restrictive lung disease J98.4 Peripheral eosinophilia D72.19
--- NOTE | 2025-01-20 10:35 | Hospitalist Progress Note ---
Date of Service January 20, 2025 Assessment & Plan (1) JUWAN (acute kidney injury): Plan: 74-year-old male with past medical history significant for hyperlipidemia, asbestosis pneumoconiosis, restrictive lung disease, chronic sinusitis, chronic CHF with preserved ejection fraction, hypertension, orthostatic hypotension, cirrhosis of liver with ascites, protein calorie malnutrition, history of prostate cancer, stage III CKD, chronic pain syndrome, autonomic neuropathy presents with ongoing shortness of breath and found to have JUWAN. Shortness of breath Interstitial lung disease Possible hypersensitivity pneumonitis Patient presents to the hospital with shortness of breath despite being treated for CHF with diuretics CTA chest shows interval increase in bilateral diffuse peripheral interstitial changes Was previously evaluated by pulmonology during hospitalization in July 2024 for similar concern; BNP elevated SONYA positive, 1: 160, nuclear speckled, negative for myeloperoxidase, antiproteinase 3 and antineutrophil antibody Hypersensitive pneumonitis panel was positive for A. Alternaria, Cladosporium, penicillium as well as Phoma species Echocardiogram results reviewed; EF of 55 to 60%; grade 2 diastolic dysfunction. Continue to monitor oxygen saturation; supplemental oxygen as needed if SpO2 is less than 90%. Outpatient follow-up with pulmonology to discuss further treatment options given the results above. JUWAN on CKD-presented with creatinine of 1.7; baseline of 1.3. Creatinine down trended with holding of Lasix. Nephrology on board; will appreciate recomm endation for diuretic at the time of the discharge. HFpEF, compensatedcontinue to hold Lasix for now. Echo as above History of NAFLD cirrhosis Holding diuretics Will monitor History of prostate cancer Status post surgery Chronic back pain On oxycodone-continue Mild bilirubinemia Chronic elevation History of autonomic orthostasis No longer on midodrine and fludrocortisone Empirically on Cortef for adrenal insufficiency DVT prophylaxis Heparin subcu Disposition Telemetry Full code. Time spent evaluating patient, direct bedside care, chart review, placing orders, interpretation of diagnostic studies, discussion with consultants, patient, and family members, as well as other required patient management activities is 50 minutes Please note the above document was generated using voice recognition software. It may contain grammatical, syntax or spelling errors. Any formal questions or concerns about the content, text or information contained within the body of this dictation should be directly addressed to the provider for clarification Admission and Anticipated Discharge Date Admission Date: January 18, 2025 Subjective Patient seen and examined at bedside. He is lying in the bed comfortably. He reports that his shortness of breath has improved compared to baseline. He is making good amount of urine. Review of Systems Review of Systems: All systems reviewed & are unremarkable except as noted in Subjective Physical Exam Physical Exam: General- Not in distress Head- atraumatic Eyes- PERRL. ENT- oropharynx clear Neck- supple, no JVD. Lungs- Bilateral basilar coarse crackles heard Heart- regular rate and rhythm; no murmur, no gallop. Abdomen- normal bowel sounds, soft, nontender, no distension Extremities- no pretibial edema, no erythema seen Neuro- alert, oriented PERRL, no facial palsy; no dysarthria; moves extremities Results & Data Results & Data Vital Signs (Past 12 Hours) Vital Signs Temp Pulse Pulse Resp BP Pulse Ox O2 Del Method 01/20/25 07:37 36.7 C 64 18 163/64 H 92 Room Air 01/20/25 04:00 36.6 C 73 17 133/62 92 Room Air 01/20/25 00:30 36.7 C 79 19 155/62 H 90 Room Air 01/19/25 23:00 73
[2025-01-20] MEDS: CALCIUM CARBONATE 500 MG CHEWABLE TAB PO PRN (10:45)
[2025-01-20] MEDS: ALUMINUM/MAGNESIUM SUSP 30 ML UDC PO STA (11:52)
--- NOTE | 2025-01-20 12:46 | Nephrology Progress Note ---
Date of Service January 20, 2025 Assessment & Plan Admission and Anticipated Discharge Date Admission Date: January 18, 2025 Subjective Assessment & Plan (1) JUWAN (acute kidney injury): Creat baseline 1.3 Admission was 1.7 and this AM is 1.3 now so pretty much baseline. so stage 1 JUWAN already improving. JUWAN likely related with hemodynamic issues. Currently I dont see much evidence of Fluid overload. Quite possible SOB is mainly driven by pulmonary issues. But given that he had 12 lbs wt gain likely has Some fluid overload also. will do lasix 40 po bid He had IV contrast yesterday 01/18 but renal function did not get worse. (2) Shortness of breath: Likely Pulmonary. currently on RA and no Overt distress. But given he had 12 lbs wt gain likely has Some fluid overload also. S--has SOB. labs got better. Making urine 1650 ml yesterday ROS--12 Systems reviewed and otherwise negative Physical Exam Physical Exam: General- Not in distress. 94% RA Head- atraumatic, oropharynx clear, MM moist Neck- supple, no JVD. Lungs- clear to auscultation b/l occ coarse crackles heard, no wheezing Heart- regular rate and rhythm; no murmur, no gallop. Abdomen- soft, nontender, no distension Extremities- no edema Neuro- alert, oriented Results & Data Vital Signs (Past 12 Hours) Vital Signs Temp Pulse Resp BP Pulse Ox O2 Del Method 01/20/25 11:33 36.8 C 63 18 138/54 L 93 Room Air 01/20/25 10:33 Room Air 01/20/25 07:37 36.7 C 64 18 163/64 H 92 Room Air 01/20/25 04:00 36.6 C 73 17 133/62 92 Room Air
--- NOTE | 2025-01-20 14:07 | Electrocardiogram Report ---
Test Reason : Blood Pressure : */* mmHG Vent. Rate : 62 BPM Atrial Rate : 62 BPM P-R Int : 204 ms QRS Dur : 108 ms QT Int : 436 ms P-R-T Axes : 42 -24 14 degrees QTcB Int : 442 ms Sinus rhythm with occasional Premature ventricular complexes 1st degree AV block Moderate voltage criteria for LVH, may be normal variant Borderline ECG Confirmed by Hany Moreland ([id number]) on 01/20/2025 2:07:44 PM Referred By: REFERRED SELF Confirmed By: Hany Moreland
[2025-01-20] MEDS: FUROSEMIDE 40 MG TAB PO SCH (17:18)
[2025-01-21 07:43] VITALS: RESP 18
[2025-01-21 07:44] LABS: Anion Gap 4.0 (3-11); Blood Urea Nitrogen 32.0 mg/dl (6-23); Calcium 7.9 mg/dl (8.6-10.3); Carbon Dioxide 30.0 mmol/L (21-32); Chloride 104.0 mmol/L (98-107); Creatinine Clr Calc Pharmacy 58.4 ml/min; Glucose 121.0 mg/dl (70-99(Fasting)); Potassium 4.5 mmol/L (3.5-5.1); Sodium 138.0 mmol/L (136-145)
--- NOTE | 2025-01-21 10:32 | Discharge Summary ---
Date of Service January 21, 2025 Admission HPI Per Admitting Provider 74-year-old male with past medical history significant for hyperlipidemia, asbestosis pneumoconiosis, restrictive lung disease, chronic sinusitis, chronic CHF with preserved ejection fraction, hypertension, orthostatic hypotension, cirrhosis of liver with ascites, protein calorie malnutrition, history of prostate cancer, stage III CKD, chronic pain syndrome, autonomic neuropathy presents with ongoing shortness of breath and found to have JUWAN. Patient recently after coming from fishing gained about 12 pounds and felt bloated in abdomen. Patient was been following with nephrology and his Lasix was increased for his shortness of breath and lower extremity edema. Lower EXTR edema improved but he still short of breath which prompted him to come to the ER. Denies any chest pain. No nausea. No abdominal pain. No fevers. No cough. No runny nose or sore throat. Hemodynamics okay. Family in the room. Past medical history. As mentioned above. Past surgical history. Colonoscopy. EGD. EGD with endoscopic ultrasound. Injection of lumbosacral spine. Flexible laryngoscopy. Arthroscopic knee surgery. Bilateral biceps tendon rupture. Sinus surgery. Placement of interstitial device for radiation therapy for prostate. Cholecystectomy laparoscopic. Inguinal hernia repair. Social history. . Quit smoking 1986. Smoked 1 pack a day for 20 years. No alcohol use. No drug use. Family history. Son has aortic stenosis. Father has CAD. Mother had diabetes. Stroke. Father had prostate cancer. Admission Exam Per Admitting Provider General- Not in distress Head- atraumatic Eyes- PERRL. ENT- oropharynx clear Neck- supple, no JVD. Lungs- clear to auscultation b/l coarse crackles heard, no wheezing Heart- regular rate and rhythm; no murmur, no gallop. Abdomen- normal bowel sounds, soft, nontender, no distension Extremities- no pretibial edema, no erythema seen Neuro- alert, oriented PERRL, no facial palsy; no dysarthria; moves extremities Principal Diagnosis Shortness of breath Interstitial lung disease Possible hypersensitivity pneumonitis JUWAN on CKD Discharge Exam General- Not in distress Head- atraumatic Eyes- PERRL. ENT- oropharynx clear Neck- supple, no JVD. Lungs- Bilateral basilar coarse crackles heard Heart- regular rate and rhythm; no murmur, no gallop. Abdomen- normal bowel sounds, soft, nontender, no distension Extremities- no pretibial edema, no erythema seen Neuro- alert, oriented PERRL, no facial palsy; no dysarthria; moves extremities Discharge Data Allergies Allergy/AdvReac Type Severity Reaction Status Date / Time lisinopril Allergy Dizziness Verified 07/25/24 22:46 losartan Allergy Dizziness Verified 07/25/24 22:46 Consultations 01/18/25 21:33 ED Decision to Admit Stat 01/19/25 07:25 Consult Pulmonology Routine 01/19/25 08:00 Consult Nephrology Routine Ordered Studies 01/18/25 22:40 CT angio chest PE protocol Stat Hospital Course (1) JUWAN (acute kidney injury): 74-year-old male with past medical history significant for hyperlipidemia, asbestosis pneumoconiosis, restrictive lung disease, chronic sinusitis, chronic CHF with preserved ejection fraction, hypertension, orthostatic hypotension, cirrhosis of liver with ascites, protein calorie malnutrition, history of prostate cancer, stage III CKD, chronic pain syndrome, autonomic neuropathy presents with ongoing shortness of breath and found to have JUWAN. Shortness of breath Interstitial lung disease Possible hypersensitivity pneumonitis Patient presents to the hospital with shortness of breath despite being treated for CHF with diuretics CTA chest shows interval increase in bilateral diffuse peripheral interstitial changes Was previously evaluated by pulmonology during hospitalization in July 2024 for similar concern; SONYA positive, 1: 160, nuclear speckled, negative for myeloperoxidase, antiproteinase 3 and antineutrophil antibody Hypersensitive pneumonitis panel was positive for A. Alternaria, Cladosporium, penicillium as well as Phoma species Echocardiogram results reviewed; EF of 55 to 60%; grade 2 diastolic dysfunction. Discussed with the patient extensively that he needs to follow-up with his outpatient pulmonology for management of possible hypersensitivity pneumonitis; inpatient pulmonology recommends 5-day course of doxycycline and addition of Incruse which has been sent to his pharmacy. He was saturating well in room air at the time of the discharge. JUWAN on CKD-presented with creatinine of 1.7; baseline of 1.3. Creatinine down trended with holding of Lasix. Nephrology was consulted for comanagement; they recommended Lasix 40 mg twice a day at the time of the discharge Please note the above document was generated using voice recognition software. It may contain grammatical, syntax or spelling errors. Any formal questions or concerns about the content, text or information contained within the body of this dictation should be directly addressed to the provider for clarification Total Time Total Time Spent Total Time Spent (In Minutes): 45 Total Time Includes: Examination of the Patient, Discharge Planning, Medication Reconciliation, Communication With Other Providers and Other Discharge Plan Discharge Items Patient Disposition: Home - Self-Care Reason For Visit: JUWAN, SOB Discharge Diagnosis: Shortness of breath Interstitial lung disease Possible hypersensitivity pneumonitis JUWAN on CKD- Condition on Discharge: Fair Activity: Resume your previous activity Non-emergency contact: Primary Care Provider Call non-emergency contact if: you have any medication questions and your symptoms worsen Follow-up/Referrals: Jerzy Glez MD [Primary Care Provider] - (Date & Time 01/25/2025 11:40 AM Provider: Deb Camara MD [facility] ) Diet: Regular Addtl Attending Provider Instructions: You were admitted to the hospital with Shortness of breath and Kidney Injury. You were evaluated by pulmonology and nephrology during the hospitalization. There is concern of "Hypersensitivity Pneumonitis"( inflammation of the lung secondary to allergens) in your CT scan here and blood work. Please follow up with Dr. Kolb ( your Daycare Director) as soon as possible to discuss further care. You have been prescribed following medications from the director stars here: 1)Take Doxycycline 100mg twice a day for 3 days 2) New inhaler has also been prescribed. Incruse Ellipta once a day The Lan Support Specialist recommended taking Lasix 40mg twice a day (take it in the morning and in the afternoon). If you notice that you are getting dehydrated and/or feeling Dizzy, please hold off on taking lasix and seek medical attention. Pending Studies at Discharge: No Stand-Alone Forms: My [facility] [employer], Smoking Cessation Medications and DC Order Prescriptions: New furosemide 40 mg Tablet 40 mg PO [id number] Qty: 60 0RF doxycycline hyclate 100 mg Capsule 100 mg PO BID 3 Days Qty: 6 0RF Incruse Ellipta 62.5 mcg/actuation Blister With Device 1 inh inhalation DAILY Qty: 30 0RF Continued multivitamin Tablet 1 tab PO DAILY hydrocortisone 5 mg tablet 10 mg PO UD Rx Instructions: 10mg in am and 5mg in pm fluticasone propion-salmeterol 250-50 mcg/dose blister with device 1 inh INHALATION BID montelukast 10 mg tablet 10 mg PO DAILY metoprolol succinate 25 mg tablet extended release 24 hr 12.5 mg PO DAILY oxycodone 10 mg tablet 10 mg PO UD Rx Instructions: 10mg po qid daily at 8am,2pm, 8pm and 2am . cholecalciferol (vitamin D3) 50 mcg (2,000 unit) capsule 50 mcg PO DAILY Discontinued furosemide 40 mg tablet 40 mg PO DAILY Discharge Orders: Discharge Order (Routine); Ordered 01/21/25 Ordered By: Fish Bullock Admission Data Admit Date/Time: 01/18/25 23:54 Attending Provider: Fish Bullock Admit Provider: Toni Monroe Primary Care Provider: Jerzy Glez Other Providers: Toni Monroe; Kerri Garcia; Shanna Luis
[2025-01-21 11:45] VITALS: PULSE 68; TEMP 98; O2SAT 98
[2025-01-21 14:11] VITALS: BP 148/67
[2025-01-22 13:42] LABS: Cockroach IgE Ab <0.10 kU/L; Cottonwood Class 0; Mouse Urine Protein Class 0; Mouse Urine Protein IgE <0.10 kU/L; Mugwort (W6) IgE <0.10 kU/L; Oak-White Class 0; Oak-White IgE <0.10 kU/L; Sycamore Class 0; Sycamore IgE <0.10 kU/L
== END 2025-01-21 15:01 | disposition home or self-care (01) | DRG 196 ==
LOC: ED 18:52 → EDINP 23:54 → 2S 01-19 01:42

== ENCOUNTER 2025-03-18 19:59 | Inpatient (IN) ==
[2025-03-18 20:40] LABS: Hematocrit (blood only) 36.3 % (42.0-52.0); Hemoglobin 12.3 g/dL (14.0-18.0); Immature Granulocytes # (auto) 0.02 K/uL (0.01-0.20); Immature Granulocytes % (auto) 0.2 %; Mean Corpuscular Hemoglobin 34.8 pg (25.0-34.0); Mean Corpuscular Volume 102.8 fL (80.0-100.0); Platelet Count 179 K/uL (130-400); RDW Standard Deviation 53.0 fL (36.4-46.3); Red Blood Count 3.53 M/uL (4.70-6.10); White Blood Count 11.99 K/ul (4.8-10.8)
[2025-03-18 21:00] LABS: Alanine Aminotransferase 34.0 U/L (7-52); Albumin Globulin Ratio 0.5 (0.9-2); Albumin Level 2.4 gm/dl (3.4-5.0); Alkaline Phosphatase 199.0 U/L (34-104); Anion Gap 7.0 (3-11); Bilirubin,Total 1.0 mg/dl (0.2-1.0); Blood Urea Nitrogen 34.0 mg/dl (6-23); Calcium 8.1 mg/dl (8.6-10.3); Carbon Dioxide 29.0 mmol/L (21-32); Chloride 103.0 mmol/L (98-107); Creatinine Clr Calc Pharmacy 41.6 ml/min; Globulin 4.6 gm/dl (2.5-4.0); Glucose 219.0 mg/dl (70-99(Fasting)); Potassium 4.1 mmol/L (3.5-5.1); Sodium 139.0 mmol/L (136-145); Total Protein 7.0 gm/dl (6.0-8.3)
[2025-03-18 21:12] LABS: INR 1.1 (0.9-1.1); Partial Thromboplastin Time 26 Seconds (21-31); Prothrombin Time 11.9 Seconds (9.0-12.0)
--- NOTE | 2025-03-18 22:28 | XRay Report ---
Exam(s): XR CXR 1 VIEW EXAM: XR Chest, 1 View CLINICAL HISTORY: Reason for exam: Chest pain, nonspecific. TECHNIQUE: Frontal view of the chest. COMPARISON: 01/18/2025 FINDINGS: Lungs: Persistent but improved interstitial and airspace opacities at the lung bases. Pleural space: No pleural effusion. No pneumothorax. Heart: Cardiomegaly. Bones/joints: Chronic rib fractures on the right. IMPRESSION: Persistent but improved interstitial and airspace opacities at the lung bases. Electronically signed by: Clark Melendez MD 03/18/25 22:27 PM
--- NOTE | 2025-03-18 22:41 | Emergency Department Note ---
Impression & Plan Dyspnea, Bilateral edema of lower extremity, JUWAN (acute kidney injury), CHF (congestive heart failure), Anemia ED Provider Note ED Provider Note NAME: THAI MEJIA AGE:74 SEX: Male : 1950 ARRIVES VIA: Private vehicle INFORMANT: Patient ED PROVIDER(s): Millie Paez DO CHIEF COMPLAINT: Referred from PCPs office HPI: This is a 74-year-old male who presents to the emergency department after being evaluated by his PCP earlier today and sent here for additional testing and likely admission. Patient patient's states a week and a half ago he developed an upper respiratory infection. He was seen in urgent care and given doxycycline. Prescription for steroids was also sent however she states that he takes hydrocortisone chronically. She states he is prone to filling up with fluid and has a history of congestive heart failure. He states that 5 to 6 days ago they started their protocol as he had gained approximately 10 pounds. He typically takes furosemide 40 mg daily however for 3 days they increased it to 80 mg and then began to drop him back down to 40 mg. states he lost approximately 6 pounds, however still had increased work of breathing with any exertion and felt as though he was still holding onto fluid. He denies chest or abdominal pain, vomiting or diarrhea. He denies fevers or chills. states he does have a history of lung problems as well as does follow with pulmonology. She states he was last admitted back in December. He does not wear home oxygen. PAST MEDICAL HISTORY:See Below PAST SURGICAL HISTORY:See Below FAMILY HISTORY:See Below SOCIAL HISTORY:See Below HOME MEDICATIONS:See Below ALLERGIES:See Below VITALS:See Below PHYSICAL EXAMINATION: GENERAL: alert, well appearing, well nourished, no distress, non-toxic EYE EXAM: normal conjunctiva, PERRL and EOM's grossly intact OROPHARYNX: no exudate, no erythema, lips, buccal mucosa, and tongue normal and mucous membranes are mildly dry NECK: supple, no nuchal rigidity, no adenopathy, non-tender LUNGS: Clear to auscultation. Normal chest wall mechanics, no w/r, bibasilar rales HEART: no murmurs, S1 normal and S2 normal ABDOMEN: abdomen soft, non-tender, normo-active bowel sounds, no masses, no rebound or guarding. BACK: Back is symmetrical on inspection and there is no deformity SKIN: no rashes, petechiae, orbruising UPPER EXTREMITIES: upper extremities are grossly normal. FROM, nml pulses b/l. LOWER EXTREMITIES: Trace b/l pitting edema. FROM, nml pulses b/l. NEURO EXAM: Normal sensorium, cranial nerves II-XII grossly intact, normal speech, no facial droop,nogross weakness of arms, no gross weakness of legs. Gross sensation intact. No ataxia. Vital Signs: reviewed and remarkable Differential Diagnosis: pneumonia, bronchitis, COPD/Asthma exacerbation, pneumothorax, pulmonary embolism, congestive heart failure, acute coronary syndrome, as well as others were considered MEDICAL DECISION MAKING: This is a 74-year-old male presents to the emergency department due to concern for increasing weights and volume overloaded status in the setting of a recent URI after being seen by his PCP in the office earlier today. Patient was afebrile and hemodynamically stable on arrival. Labs drawn and sent, IV established, EKG and CXR performed and interpreted at bedside, and patient placed on telemetry. Nasal swab obtained and sent additionally for viral respiratory panel. After examination and discussion at bedside, and in consideration of his complicated past medical history, we discussed further inpatient evaluation and management. Patient's creatinine elevated today compared to prior, I suspect this is from a recent increase in his Lasix. Patient's BNP was also elevated although has been elevated previously. The patient and family were in agreement with this plan. Patient was given 1 dose of IV Lasix while present in the emergency department additionally. He his usual oxycodone was also added due to his chronic back pain. Case discussed with the hospitalist team for additional evaluation and management. Consultation(s): 2244: Discussed with Dr Monroe, [facility] hospitalist team, for additional evaluation and management. ER Treatment Provided: See below Diagnostics Interpreted By Me: -ECG: Normal sinus at 71, leftward axis, normal intervals, nonspecific ST/T wave changes, PVC noted, baseline aberrancy and artifact noted -Cardiac Monitoring: An order was placed for continuous cardiac monitoring. The monitor shows a rate of 80 with normal sinus rhythm. -Laboratory studies: As stated above and show below. -Imaging studies: X-ray Chest: A single view study of the chest was reviewed and was negative for cardiomegaly, focal infiltrate, effusion, pulmonary edema, or wide mediastinum. Improved compared to December 2024. Triage Nursing Note Reviewed Prior/Outside Records Reviewed -prior cardiology note from July 2024 reviewed Past Med/Surg History Problem List (Updated 03/19/25 @ 04:03 by Millie Paez DO) Anemia (Acute) Acute CHF CHF (congestive heart failure) (Acute) JUWAN (acute kidney injury) (Acute) Bilateral edema of lower extremity (Acute) Dyspnea (Acute) Restrictive lung disease JUWAN (acute kidney injury) (Acute) D-dimer, elevated (Acute) Shortness of breath (Acute) Pleural plaque COPD with emphysema Abnormal chest CT NSIP (nonspecific interstitial pneumonia) ILD (interstitial lung disease) Acute on chronic diastolic HF (heart failure) Physical deconditioning CHF (congestive heart failure) (Acute) Orthostatic hypotension (Acute) Dizziness on standing Pneumonia Chronic diastolic congestive heart failure Autonomic dysfunction Autonomic postural hypotension Hyponatremia Positional lightheadedness JUWAN (acute kidney injury) (Acute) Leukocytosis (Acute) Cirrhosis Dehydration (Acute) Dizziness (Acute) COVID-19 Depression Hypertension, essential Dizziness (Acute) Generalized weakness (Acute) COVID-19 (Acute) Generalized weakness (Acute) Leukocytosis (Acute) Fever (Acute) Acute exacerbation of CHF (congestive heart failure) (Acute) Shortness of breath (Acute) Bilateral edema of lower extremity (Acute) Recent weight gain (Acute) Hypomagnesemia (Acute) Acute on chronic heart failure with preserved ejection fraction (HFpEF) Chest pressure (Acute) Acute exacerbation of CHF (congestive heart failure) (Acute) Multiple rib fractures (Acute) History of cholecystectomy Previous back surgery Rib pain (Acute 09/10/10) Subacute bacterial endocarditis (Acute 09/24/10) Medical History Anemia Cirrhosis H/O endocarditis DMII (diabetes mellitus, type 2) CKD (chronic kidney disease), stage III Hypertensive urgency Acute decompensated heart failure Opioid type dependence, unspecified Social History Smoking Status: Former smoker Tobacco Type: Cigarettes Cigarettes Per Day: 15; Second Hand Exposure: No; Do You Dip or Chew Tobacco: No; Tobacco Cessation Education Requested by Patient: No Hx Alcohol Use: No Hx Substance Use: No Preferred Language: Burmese Communication Ability: Effective Gis Physical Scientist Required: No Beliefs That Will Affect Care: None marital status: Current Living Situation: Spouse Current Living Situation Comment: lives in two story home with Other Information That Helps Us Care for You: No Feels Safe at Home: Yes Safety Concerns: Feels Safe At This Time Assistive Devices: Denture - Upper Allergies Allergies Allergy/AdvReac Type Severity Reaction Status Date / Time lisinopril Allergy Dizziness Verified 07/25/24 22:46 losartan Allergy Dizziness Verified 07/25/24 22:46 Home Meds Home Medications Medication Instructions Recorded Confirmed albuterol sulfate 0.63 mg/3 mL 0.63 mg continuous nebulization 03/18/25 03/18/25 solution for nebulization Q6H PRN Shortness Of Breath Or Wheezing albuterol sulfate 90 mcg/actuation 2 puff inhalation Q4H PRN 03/18/25 03/18/25 aerosol inhaler Shortness Of Breath Or Wheezing budesonide 0.5 mg/2 mL suspension 0.5 mg inhalation BID 03/18/25 03/18/25 for nebulization cholecalciferol (vitamin D3) 50 50 mcg PO DAILY 03/18/25 03/18/25 mcg (2,000 unit) capsule fluticasone fur. 200 mcg-umeclid 1 inh inhalation DAILY 03/18/25 03/18/25 62.5 mcg-vilant 25 mcg inhalat.powder (Trelegy Ellipta) furosemide 40 mg tablet 40 mg PO DAILY 03/18/25 03/18/25 hydrocortisone 5 mg tablet 5 mg PO UD 03/18/25 03/18/25 metoprolol succinate 25 mg 12.5 mg PO DAILY 03/18/25 03/18/25 tablet,extended release 24 hr montelukast 10 mg tablet 10 mg PO DAILY 03/18/25 03/18/25 oxycodone 10 mg tablet 10 mg PO QID 03/18/25 03/18/25 Results & Data (ED) Vital Signs Vital Signs - 24 hr 03/18/25 20:12 03/18/25 22:24 03/18/25 22:26 Temperature Source Oral Pulse Rate 73 Pulse Rate [Left] Respiratory Rate Blood Pressure [Left Arm] Blood Pressure Mean [Left Arm] Pulse Oximetry 98 Oxygen Delivery Method Room Air Oxygen Flow Rate 0 Sepsis Recent Fever Within 48 Hours No Sepsis New/Unexplained Change in Mental Status No Sepsis Action Taken by Nursing No Action Required 12/22/25 22:26 Temperature Source Pulse Rate Pulse Rate [Left] 71 Respiratory Rate 16 Blood Pressure [Left Arm] 173/66 H Blood Pressure Mean [Left Arm] 101 Pulse Oximetry 98 Oxygen Delivery Method Room Air Oxygen Flow Rate Sepsis Recent Fever Within 48 Hours Sepsis New/Unexplained Change in Mental Status Sepsis Action Taken by Nursing Laboratory Data 03/18/25 20:26 03/18/25 20: Lab Results 03/18/25 Range/Units 20: WBC 11.99 H (4.8-10.8) K/ul RBC 3.53 L (4.70-6.10) M/uL Hgb 12.3 L (14.0-18.0) g/dL Hct 36.3 L (42.0-52.0) % MCV 102.8 H (80.0-100.0) fL MCH 34.8 H (25.0-34.0) pg MCHC 33.9 (32.0-36.0) g/dL RDW Std Deviation 53.0 H (36.4-46.3) fL RDW Coeff of Marjorie 13.9 (11.5-14.5) % Plt Count 179 (130-400) K/uL MPV 11.6 (9.4-12.4) fL Immature Gran % (Auto) 0.2 % Neut % (Auto) 69.3 % Lymph % (Auto) 20.1 % Citrus % (Auto) 7.5 % Eos % (Auto) 2.4 % Baso % (Auto) 0.5 % Neut # (Auto) 8.31 H (1.40-6.50) K/uL Lymph # (Auto) 2.41 (1.20-3.40) K/uL Citrus # (Auto) 0.90 H (0.11-0.59) K/uL Eos # (Auto) 0.29 (0.00-0.50) K/uL Baso # (Auto) 0.06 (0.00-0.20) K/uL Immature Gran # (Auto) 0.02 (0.01-0.20) K/uL PT 11.9 (9.0-12.0) Seconds INR 1.1 (0.9-1.1) APTT 26 (21-31) Seconds PTT Ratio 1.0 Sodium 139 (136-145) mmol/L Potassium 4.1 (3.5-5.1) mmol/L Chloride 103 (98-107) mmol/L Carbon Dioxide 29 (21-32) mmol/L Anion Gap 7 (3-11) BUN 34 H (6-23) mg/dl Creatinine 1.78 H (0.6-1.4) mg/dl Est Cr Clr Drug Dosing 41.6 ml/min eGFR 39.05 BUN/Creatinine Ratio 19.1 (10-20) Glucose 219 H (70-99(Fasting)) mg/dl Calcium 8.1 L (8.6-10.3) mg/dl Total Bilirubin 1.0 (0.2-1.0) mg/dl AST 63 H (13-39) U/L ALT 34 (7-52) U/L Alkaline Phosphatase 199 H (34-104) U/L Troponin I High Sens 12.8 (0-20) pg/ml B-Natriuretic Peptide 281 H (0-100) pg/ml Total Protein 7.0 (6.0-8.3) gm/dl Albumin 2.4 L (3.4-5.0) gm/dl Globulin 4.6 H (2.5-4.0) gm/dl Albumin/Globulin Ratio 0.5 L (0.9-2) Administered Medications Discontinued Medications Furosemide (Furosemide 40 Mg/4 Ml Vial) 40 mg IV ONE ONE Stop: 03/18/25 22:39 Last Admin: 03/18/25 22:56 Dose: 40 mg Documented By: NICA Oxycodone HCl (Oxycodone Hcl Ir 10 Mg Tab (Immediate Release)) 10 mg PO NOW STA Stop: 03/18/25 22:46 Last Admin: 03/18/25 22:58 Dose: 10 mg Documented By: NICA Imaging Data Radiologist's Impression: Chest X-Ray 03/18/25 20:27 Exam(s): XR CXR 1 VIEW EXAM: XR Chest, 1 View CLINICAL HISTORY: Reason for exam: Chest pain, nonspecific. TECHNIQUE: Frontal view of the chest. COMPARISON: 01/18/2025 FINDINGS: Lungs: Persistent but improved interstitial and airspace opacities at the lung bases. Pleural space: No pleural effusion. No pneumothorax. Heart: Cardiomegaly. Bones/joints: Chronic rib fractures on the right. IMPRESSION: Persistent but improved interstitial and airspace opacities at the lung bases. Electronically signed by: Clark Melendez MD 03/18/25 22:27 PM Discharge Plan Visit Data Chief Complaint: Cardiac Assessment Stated Complaint: CONGESTIVE HEART FAILURE ED Provider: Millie Paez Discharge Problem: Dyspnea, Bilateral edema of lower extremity, JUWAN (acute kidney injury), CHF (congestive heart failure), Anemia Patient Disposition: Being Evaluated by Hospitalist Condition: Fair Discharge Instructions Interventions: ED Discharge Assessment Last Done: 03/18/25 23:52
[2025-03-18] MEDS: FUROSEMIDE 40 MG/4 ML VIAL IV ONE (22:56)
[2025-03-18] MEDS ORDERED: ACETAMINOPHEN 325 MG TAB PO PRN (23:52)
[2025-03-18] MEDS ORDERED: NITROGLYCERIN SL 0.4 MG/TAB TAB SL PRN (23:52)
[2025-03-18] MEDS ORDERED: ALBUTEROL HFA 8 GM INHALER INH PRN (23:52)
[2025-03-18] MEDS ORDERED: POLYETHYLENE (MIRALAX) 17 GM PACK PO PRN (23:52)
--- NOTE | 2025-03-19 00:07 | History & Physical Report ---
Date of Service March 18, 2025 Assessment & Plan (1) Acute CHF: Plan: 74-year-old male with past medical history significant for hypersensitive pneumonitis, eosinophilic asthma, hyperlipidemia, asbestosis pneumoconiosis, restrictive lung disease, chronic sinusitis, chronic CHF with preserved ejection fraction, hypertension, orthostatic hypotension, cirrhosis of liver with ascites, protein calorie malnutrition, history of prostate cancer, stage III CKD, chronic pain syndrome, autonomic neuropathy presents with shortness of breath and weight gain. Patient recently had upper respiratory infection and was treated with doxycycline. After finishing doxycycline about a week ago patient was getting more short of breath and gained about 10 pounds of weight. He took extra Lasix for 3 days and lost about 6 pounds and he took extra Lasix for 1 more day and stopped taking extra Lasix dose. But again in 1 day gained 2 pounds of weight which prompted him to come to the ER today. Weight is mostly in his abdomen region. Getting short of breath on exertion. Has a cough and bringing phlegm. Was having headaches. Currently no headache. No dizziness. Vision is okay. Has postnasal drip. Appetite not great. Denies any chest pain. No nausea. No abdominal pain. Micturating okay. Normal bowel movements. Ambulates okay. Currently hemodynamics are okay. Family in the room. Acute on chronic diastolic CHF Presents with shortness of breath and weight gain Received IV Lasix 40 mg the ER Will continue with IV Lasix 40 mg twice daily Daily weights and I's and O's Close monitor cardiology consult JUWAN on CKD stage III Presented with creatinine 1.7 Baseline creatinine 1.3 Getting IV Lasix Will consult nephro Severe persistent asthma with eosinophilia Follows with pulmonary Recently saw pulmonary On Trelegy once daily On nebulized budesonide twice daily On albuterol Fasenra prescribed but not started due to cost Also on hydrocortisone On nebs as needed Restrictive lung disease due to asbestosis pneumoconiosis Following with pulmonary Hypersensitive pneumonitis Likely due to mold exposure. Managed with hydrocortisone Following with pulmonary Has appointment with rheumatology on Apr 12 Positive SONYA screen History of prostate cancer S/p radiation treatment Hepatic cirrhosis Secondary to MAYBERRY Follows with GI Hypertension Because of hypotension his medications were discontinued in the past Currently on metoprolol and diuretics Will monitor Chronic pain On oxycodone History of autonomic orthostasis Currently no longer on midodrine and fludrocortisone On Cortef. DVT prophylaxis heparin subcu Disposition Telemetry Full code. History of Present Illness Chief Complaint: Shortness of breath and weight gain Primary Care Provider: Jerzy Glez MD 74-year-old male with past medical history significant for hypersensitive pneumonitis, eosinophilic asthma, hyperlipidemia, asbestosis pneumoconiosis, restrictive lung disease, chronic sinusitis, chronic CHF with preserved ejection fraction, hypertension, orthostatic hypotension, cirrhosis of liver with ascites, protein calorie malnutrition, history of prostate cancer, stage III CKD, chronic pain syndrome, autonomic neuropathy presents with shortness of breath and weight gain. Patient recently had upper respiratory infection and was treated with doxycycline. After finishing doxycycline about a week ago patient was getting more short of breath and gained about 10 pounds of weight. He took extra Lasix for 3 days and lost about 6 pounds and he took extra Lasix for 1 more day and stopped taking extra Lasix dose. But again in 1 day gained 2 pounds of weight which prompted him to come to the ER today. Weight is mostly in his abdomen region. Getting short of breath on exertion. Has a cough and bringing phlegm. Was having headaches. Currently no headache. No dizziness. Vision is okay. Has postnasal drip. Appetite not great. Denies any chest pain. No nausea. No abdominal pain. Micturating okay. Normal bowel movements. Ambulates okay. Currently hemodynamics are okay. Family in the room. Patient in December 2024 was admitted to the hospital for shortness of breath and treated for CHF with diuretics and echo showed EF of 55 to 60% grade 2 diastolic dysfunction. Also seen by nephrology for JUWAN and was discharged on Lasix 40 mg twice a day. Past medical history. As mentioned above. Past surgical history. Colonoscopy. EGD. EGD with endoscopic ultrasound. Injection of lumbosacral spine. Flexible laryngoscopy. Arthroscopic knee surgery. Bilateral biceps tendon rupture. Sinus surgery. Placement of interstitial device for radiation therapy for prostate. Cholecystectomy laparoscopic. Inguinal hernia repair. Social history. . Quit smoking 1986. Smoked 1 pack a day for 20 years. No alcohol use. No drug use. Family history. Son has aortic stenosis. Father has CAD. Mother had diabetes. Stroke. Father had prostate cancer. Allergies Allergy/AdvReac Type Severity Reaction Status Date / Time lisinopril Allergy Dizziness Verified 07/25/24 22:46 losartan Allergy Dizziness Verified 07/25/24 22:46 Home Medications Medication Instructions Recorded Confirmed Type albuterol sulfate 0.63 mg/3 mL 0.63 mg continuous nebulization 03/18/25 03/18/25 History solution for nebulization Q6H PRN Shortness Of Breath Or Wheezing albuterol sulfate 90 mcg/actuation 2 puff inhalation Q4H PRN 03/18/25 03/18/25 History aerosol inhaler Shortness Of Breath Or Wheezing budesonide 0.5 mg/2 mL suspension 0.5 mg inhalation BID 03/18/25 03/18/25 History for nebulization cholecalciferol (vitamin D3) 50 50 mcg PO DAILY 03/18/25 03/18/25 History mcg (2,000 unit) capsule fluticasone fur. 200 mcg-umeclid 1 inh inhalation DAILY 03/18/25 03/18/25 History 62.5 mcg-vilant 25 mcg inhalat.powder (Trelegy Ellipta) furosemide 40 mg tablet 40 mg PO DAILY 03/18/25 03/18/25 History hydrocortisone 5 mg tablet 5 mg PO UD 03/18/25 03/18/25 History metoprolol succinate 25 mg 12.5 mg PO DAILY 03/18/25 03/18/25 History tablet,extended release 24 hr montelukast 10 mg tablet 10 mg PO DAILY 03/18/25 03/18/25 History oxycodone 10 mg tablet 10 mg PO QID 03/18/25 03/18/25 History Past Med/Surg History Problem List (Updated 03/19/25 @ 04:03 by Millie Paez DO) Anemia (Acute) Acute CHF CHF (congestive heart failure) (Acute) JUWAN (acute kidney injury) (Acute) Bilateral edema of lower extremity (Acute) Dyspnea (Acute) Restrictive lung disease JUWAN (acute kidney injury) (Acute) D-dimer, elevated (Acute) Shortness of breath (Acute) Pleural plaque COPD with emphysema Abnormal chest CT NSIP (nonspecific interstitial pneumonia) ILD (interstitial lung disease) Acute on chronic diastolic HF (heart failure) Physical deconditioning CHF (congestive heart failure) (Acute) Orthostatic hypotension (Acute) Dizziness on standing Pneumonia Chronic diastolic congestive heart failure Autonomic dysfunction Autonomic postural hypotension Hyponatremia Positional lightheadedness JUWAN (acute kidney injury) (Acute) Leukocytosis (Acute) Cirrhosis Dehydration (Acute) Dizziness (Acute) COVID-19 Depression Hypertension, essential Dizziness (Acute) Generalized weakness (Acute) COVID-19 (Acute) Generalized weakness (Acute) Leukocytosis (Acute) Fever (Acute) Acute exacerbation of CHF (congestive heart failure) (Acute) Shortness of breath (Acute) Bilateral edema of lower extremity (Acute) Recent weight gain (Acute) Hypomagnesemia (Acute) Acute on chronic heart failure with preserved ejection fraction (HFpEF) Chest pressure (Acute) Acute exacerbation of CHF (congestive heart failure) (Acute) Multiple rib fractures (Acute) History of cholecystectomy Previous back surgery Rib pain (Acute 09/10/10) Subacute bacterial endocarditis (Acute 09/24/10) Medical History Anemia Cirrhosis H/O endocarditis DMII (diabetes mellitus, type 2) CKD (chronic kidney disease), stage III Hypertensive urgency Acute decompensated heart failure Opioid type dependence, unspecified Social History Smoking Status: Former smoker Tobacco Type: Cigarettes Cigarettes Per Day: 15; Second Hand Exposure: No; Do You Dip or Chew Tobacco: No; Tobacco Cessation Education Requested by Patient: No Hx Alcohol Use: No Hx Substance Use: No Preferred Language: Tajik Communication Ability: Effective Manager Small Business Required: No Beliefs That Will Affect Care: None marital status: Current Living Situation: Spouse Current Living Situation Comment: lives in two story home with Other Information That Helps Us Care for You: No Feels Safe at Home: Yes Safety Concerns: Feels Safe At This Time Assistive Devices: Denture - Upper Review of Systems Review of Systems: All systems reviewed & are unremarkable except as noted in HPI & below Physical Exam Physical Exam: General- Not in distress Head- atraumatic Eyes- PERRL. ENT- oropharynx clear Neck- supple, no JVD. Lungs- clear to auscultation mild bibasilar crackles, no wheezing Heart- regular rhythm; no murmur, no gallop. Abdomen- normal bowel sounds, soft, nontender, no distension Extremities- no pretibial edema, no erythema seen Neuro- alert, oriented PERRL, no facial palsy; no dysarthria; moves extremities Results & Data Results & Data Vital Signs (Past 12 Hours) Vital Signs Pulse Pulse Resp BP Pulse Ox O2 Del Method O2 Flow Rate 12/22/25 22: 71 16 173/66 H 98 Room Air 03/18/25: 98 Room Air 0 03/18/25: 73 Diagnostic Findings Laboratory Results WBC 11.99 K/ul (4.8-10.8) H 03/18/25: RBC 3.53 M/uL (4.70-6.10) L 03/18/25: Hgb 12.3 g/dL (14.0-18.0) L 03/18/25: Hct 36.3 % (42.0-52.0) L 03/18/25: MCV 102.8 fL (80.0-100.0) H 03/18/25: MCH 34.8 pg (25.0-34.0) H 03/18/25: MCHC 33.9 g/dL (32.0-36.0) 03/18/25 RDW Std Deviation 53.0 fL (36.4-46.3) H 03/18/25: RDW Coeff of Marjorie 13.9 % (11.5-14.5) 03/18/25 Plt Count 179 K/uL (130-400) 03/18/25: MPV 11.6 fL (9.4-12.4) 03/18/25: Immature Gran % (Auto) 0.2 % 03/18/25: Neut % (Auto) 69.3 % 03/18/25: Lymph % (Auto) 20.1 % 03/18/25: Childress % (Auto) 7.5 % 03/18/25: Eos % (Auto) 2.4 % 03/18/25: Baso % (Auto) 0.5 % 03/18/25: Neut # (Auto) 8.31 K/uL (1.40-6.50) H 03/18/25: Lymph # (Auto) 2.41 K/uL (1.20-3.40) 03/18/25: Childress # (Auto) 0.90 K/uL (0.11-0.59) H 03/18/25: Eos # (Auto) 0.29 K/uL (0.00-0.50) 03/18/25 20: Baso # (Auto) 0.06 K/uL (0.00-0.20) 03/18/25 20: Immature Gran # (Auto) 0.02 K/uL (0.01-0.20) 03/18/25 20: PT 11.9 Seconds (9.0-12.0) 03/18/25: INR 1.1 (0.9-1.1) 03/18/25 20: APTT 26 Seconds (21-31) 03/18/25: PTT Ratio 1.0 03/18/25 20: Sodium 139 mmol/L (136-145) 03/18/25: Potassium 4.1 mmol/L (3.5-5.1) 03/18/25: Chloride 103 mmol/L (98-107) 03/18/25: Carbon Dioxide 29 mmol/L (21-32) 03/18/25: Anion Gap 7 (3-11) 03/18/25 20: BUN 34 mg/dl (6-23) H 03/18/25: Creatinine 1.78 mg/dl (0.6-1.4) H 03/18/25: Est Cr Clr Drug Dosing 41.6 ml/min 03/18/25: eGFR 39.05 03/18/25 20: BUN/Creatinine Ratio 19.1 (10-20) 03/18/25: Glucose 219 mg/dl (70-99(Fasting)) H 03/18/25 20: Calcium 8.1 mg/dl (8.6-10.3) L 03/18/25: Total Bilirubin 1.0 mg/dl (0.2-1.0) 03/18/25 20: AST 63 U/L (13-39) H 03/18/25 20: ALT 34 U/L (7-52) 03/18/25 20: Alkaline Phosphatase 199 U/L (34-104) H 03/18/25 20: Troponin I High Sens 12.8 pg/ml (0-20) 03/18/25 20: B-Natriuretic Peptide 281 pg/ml (0-100) H 03/18/25 20: Total Protein 7.0 gm/dl (6.0-8.3) 03/18/25 20: Albumin 2.4 gm/dl (3.4-5.0) L 03/18/25 20:26 Globulin 4.6 gm/dl (2.5-4.0) H 03/18/25 20:26 Albumin/Globulin Ratio 0.5 (0.9-2) L 03/18/25 20:26 Impressions Chest X-Ray 03/18/25 20:27 Exam(s): XR CXR 1 VIEW EXAM: XR Chest, 1 View CLINICAL HISTORY: Reason for exam: Chest pain, nonspecific. TECHNIQUE: Frontal view of the chest. COMPARISON: 01/18/2025 FINDINGS: Lungs: Persistent but improved interstitial and airspace opacities at the lung bases. Pleural space: No pleural effusion. No pneumothorax. Heart: Cardiomegaly. Bones/joints: Chronic rib fractures on the right. IMPRESSION: Persistent but improved interstitial and airspace opacities at the lung bases. Electronically signed by: Clark Melendez MD 03/18/25 22:27 PM ECG Additional Comments: ECG.. Sinus rhythm with frequent PVCs rate of 71. Moderate criteria for LVH. Nonspecific ST abnormality. No significant changes found. QTc 456. Code Status & VTE Plan VTE Prophylaxis Plan VTE Prophylaxis will be ordered: Yes
[2025-03-19] MEDS ORDERED: ALBUTEROL 0.083% NEBU SOLN 3 ML VIAL NEB PRN (00:27)
[2025-03-19 00:54] LABS: Chlamydia pneumoniae PCR Not Detected (NotDetected); Coronavirus 229E PCR Not Detected (NotDetected); Coronavirus CoV-2 (COVID19)PCR Not Detected (NotDetected); Coronavirus HKU1 PCR Not Detected (NotDetected); Coronavirus NL63 PCR Not Detected (NotDetected); Coronavirus OC43PCR Not Detected (NotDetected); Human Metapneumovirus PCR Not Detected (NotDetected); Parainfluenza Virus 1 PCR Not Detected (NotDetected); Parainfluenza Virus 2 PCR Not Detected (NotDetected); Parainfluenza Virus 3 PCR Not Detected (NotDetected); Parainfluenza Virus 4 PCR Not Detected (NotDetected); Respiratory Syncytial VirusPCR Not Detected (NotDetected); Rhinovirus/Enterovirus PCR Not Detected (NotDetected)
[2025-03-19 05:43] LABS: Hematocrit (blood only) 34.6 % (42.0-52.0); Hemoglobin 11.9 g/dL (14.0-18.0); Immature Granulocytes # (auto) 0.03 K/uL (0.01-0.20); Immature Granulocytes % (auto) 0.3 %; Mean Corpuscular Hemoglobin 34.4 pg (25.0-34.0); Mean Corpuscular Volume 100.0 fL (80.0-100.0); Platelet Count 143 K/uL (130-400); RDW Standard Deviation 51.8 fL (36.4-46.3); Red Blood Count 3.46 M/uL (4.70-6.10); White Blood Count 11.81 K/ul (4.8-10.8)
[2025-03-19] MEDS ORDERED: Nursing to Pharmacy Communication SCH (05:45)
[2025-03-19 06:05] LABS: Anion Gap 8.0 (3-11); Blood Urea Nitrogen 35.0 mg/dl (6-23); Calcium 7.8 mg/dl (8.6-10.3); Carbon Dioxide 28.0 mmol/L (21-32); Chloride 105.0 mmol/L (98-107); Creatinine Clr Calc Pharmacy 43.6 ml/min; Glucose 109.0 mg/dl (70-99(Fasting)); Magnesium 1.9 mg/dl (1.7-2.4); Potassium 3.8 mmol/L (3.5-5.1); Sodium 141.0 mmol/L (136-145)
[2025-03-19] MEDS: HEPARIN SOD 5,000 UNIT/0.5 ML VIAL SQ SCH (06:05)
[2025-03-19] MEDS: BUDESONIDE 0.5 MG/2 ML VIAL (PULMICORT) INH SCH (07:21)
[2025-03-19] MEDS: METOPROLOL SUCC 25MG EXT REL TAB PO SCH (08:11)
[2025-03-19] MEDS: HYDROCORTISONE 10 MG TAB PO SCH ×2 (08:12→17:42)
[2025-03-19] MEDS: MONTELUKAST SODIUM 10 MG TABLET PO SCH (08:12)
[2025-03-19] MEDS: CHOLECALCIFEROL 25 MCG (1000 UNITS) TAB PO SCH (08:13)
[2025-03-19] MEDS: FLUTICASONE FUROATE 200MCG 14 PUFFS/INHALER INH SCH (08:14)
[2025-03-19] MEDS: UMECLIDINIUM/VILANTEROL 62.5/25MCG 7 PUFFS/INHALER INH SCH (08:14)
[2025-03-19] MEDS: FUROSEMIDE 40 MG/4 ML VIAL IV SCH (08:14)
[2025-03-19] MEDS ORDERED: NON-FORMULARY MEDICATION (Fluticasone-Umeclidin-Vilanter [Trelegy Ellipta] 200-62.5-25 mcg INH SCH (09:00)
--- NOTE | 2025-03-19 09:02 | Cardiology Consultation ---
Date of Consultation March 19, 2025 Assessment & Plan (1) Acute on chronic diastolic HF (heart failure): (2) (HFpEF) heart failure with preserved ejection fraction: (3) Shortness of breath: (4) Cirrhosis: (5) JUWAN (acute kidney injury): (6) CKD (chronic kidney disease), stage III: Plan - Patient presenting to [facility] ED 03/18/25 for recent weight gain and progressive SOB despite recent DTP. Previously hospitalized in July and December of this year for JUWAN and acute on chronic HFpEF requiring IV diuresis. - Symptoms seem improved today with IV lasix. Patient still reports some SOB, abdominal bloating, and orthopnea. Does not appear to be volume overloaded on exam. - Patient has a complex medical history including lung disease and hepatic cirrhosis which could be contributing to symptoms. - Continue IV Lasix 40 mg BID today. May hold tomorrow pending reevaluation. - Please document accurate I&Os - Please record daily weights. - Monitor and replace electrolytes as needed (Recommend K >4.0 and Mg >2.0) - Further recommendations pending discussion and evaluation with Dr. Hudson. I spent a total of 60 minutes on the date of service in preparation, delivery, and documentation of the care provided to this patient, excluding any time spent in the performance of separately billed services. Holly Winn PA-C Department of Cardiology, [facility] This chart was completed in part utilizing Speech Voice Recognition Software. Grammatical errors, random word insertions, pronoun errors, and incomplete sentences are an occasional consequence of this system due to software limitations, ambient noise, and hardware issues. Any formal questions or concerns about the content, text, or information contained within the body of this dictation should be directly addressed to the provider for clarification. Supervising Physician Co-Signing Physician Notes Patient seen and examined. Past medical history, surgical history, social history and family history have been reviewed. The medical record and all the above studies have been reviewed. Case DW TYLER including management. Viral syndrome COPD/Asthma Exacerbation ILD JUWAN on CKD HTN - poorly controlled HFpEF - stable Cirrhosis Mild to moderate PHTN Recommend: patient's acute CHF in the ER appears to have resolved - clinically and radiographically not in acute CHF DC IV Lasix especially in view of worsening azotemia correct and f/u electrolytes f/u renal function DC beta blockers due to hyperreactive airway disease Start Norvasc for HTN bronchodilators Pulmonary evaluation Pulmonary optimization Mnaagement of viral syndrome as per hospitalist GDMT for HFpEF limited due to renal insufficiency adjust anti-HTN meds keeping systolic BP between 100-140 mmHg avoid hypovolemia keep patient euvolemic DVT prophylaxis keep LE elevated when sitting strict I&Os salt restriction counseling increase PO fluid intake History of Present Illness Reason for Consultation: Acute on chronic CHF Requesting Physician: Hospitalist Attending Physician: Dr. Hudson History of Present Illness Delvis Munoz is a 74 year old male with a PMHx of chronic HFpEF, hepatic cirrhosis, CKD III, moderate aortic stenosis, T2DM, HTN not on antihypertensive medications due to profound orthostatic hypotension earlier this year, hyperlipidemia, eosinophilic asthma, hypersensitive pneumonitis, and restrictive lung disease who presented to the [facility] ED on 03/18/25 due to SOB and weight gain over the past couple weeks. Patient notes he had an URI about 1.5 weeks ago and was treated with doxycycline. Once finishing the antibiotic, patient noticed he began having more SOB and weight gain. States he was up 12 lbs in weight, so he started DTP on 03/13/25 doubling home furosemide dose to 80 mg daily for 3 days which resulted in a 5 lb weight loss. Patient did note he started gaining weight again once completion of DTP which prompted him to come to the ED. Noted patient with recent hospitalizations in July and December of this year for JUWAN and acute on chronic HFpEF requiring IV diuresis. Today, patient reports abdominal bloating and some nausea for which he was given Zofran. He states he has some tenderness on the sides of his abdomen. He feels his breathing has improved, but still having some SOB and orthopnea. Denies LE edema, chest pain, cough, palpitations, vomiting, dizziness/lightheadedness, syncope. Allergies Allergy/AdvReac Type Severity Reaction Status Date / Time lisinopril Allergy Dizziness Verified 07/25/24 22:46 losartan Allergy Dizziness Verified 07/25/24 22:46 Home Medications Medication Instructions Recorded Confirmed Type albuterol sulfate 0.63 mg/3 mL 0.63 mg continuous nebulization 03/18/25 03/18/25 History solution for nebulization Q6H PRN Shortness Of Breath Or Wheezing albuterol sulfate 90 mcg/actuation 2 puff inhalation Q4H PRN 03/18/25 03/18/25 History aerosol inhaler Shortness Of Breath Or Wheezing budesonide 0.5 mg/2 mL suspension 0.5 mg inhalation BID 03/18/25 03/18/25 History for nebulization cholecalciferol (vitamin D3) 50 50 mcg PO DAILY 03/18/25 03/18/25 History mcg (2,000 unit) capsule fluticasone fur. 200 mcg-umeclid 1 inh inhalation DAILY 03/18/25 03/18/25 History 62.5 mcg-vilant 25 mcg inhalat.powder (Trelegy Ellipta) furosemide 40 mg tablet 40 mg PO DAILY 03/18/25 03/18/25 History hydrocortisone 5 mg tablet 5 mg PO UD 03/18/25 03/18/25 History metoprolol succinate 25 mg 12.5 mg PO DAILY 03/18/25 03/18/25 History tablet,extended release 24 hr montelukast 10 mg tablet 10 mg PO DAILY 03/18/25 03/18/25 History oxycodone 10 mg tablet 10 mg PO QID 03/18/25 03/18/25 History Patient History Medical History Peripheral eosinophilia Anemia Cirrhosis H/O endocarditis DMII (diabetes mellitus, type 2) CKD (chronic kidney disease), stage III Hypertensive urgency Acute decompensated heart failure Opioid type dependence, unspecified Social History Smoking Status: Former smoker Tobacco Type: Cigarettes Cigarettes Per Day: 15; Second Hand Exposure: No; Do You Dip or Chew Tobacco: No; Tobacco Cessation Education Requested by Patient: No Hx Alcohol Use: No Hx Substance Use: No Preferred Language: Polish Communication Ability: Effective [employer] Lead Required: No Beliefs That Will Affect Care: None marital status: Current Living Situation: Spouse Current Living Situation Comment: lives in two story home with Other Information That Helps Us Care for You: No Feels Safe at Home: Yes Safety Concerns: Feels Safe At This Time Assistive Devices: Denture - Upper Review of Systems Review of Systems: All systems reviewed & are unremarkable except as noted in Subjective Physical Exam Constitutional: WD/WN, vitals as above Respiratory: normal respiratory effort Auscultation: + crackles (bilateral lower lobes) Cardiovascular: Rate/Rhythm: regular rate and regular rhythm Heart Sounds: normal S1, normal S2 and + murmur (+1/6 systolic murmur) Vessels: no JVD Extremities: no edema Gastrointestinal (Abdomen): normal bowel sounds, soft, nontender, no hepatosplenomegaly Skin: no rashes, warm and dry Neurologic: PERRL, EOMI, accommodation nl, no face palsy, no dysarthria Psychiatric: A+Ox3, euthymic affect Results & Data Vital Signs (Past 12 Hours) Vital Signs Temp Pulse Pulse Resp BP Pulse Ox Pulse Ox 03/19/25 07:21 67 15 94 03/19/25 07:12 65 03/19/25 05:00 67 18 126/59 L 96 03/19/25 04:00 66 18 110/47 L 95 03/19/25 02:12 74 03/19/25 01:11 03/19/25 01:11 36.6 C 72 18 145/60 H 94 03/19/25 00:49 94 03/19/25 00:00 72 20 170/84 H 94 03/18/25 22:26 71 16 173/66 H 98 03/18/25 22:26 98 03/18/25 22:24 73 O2 Del Method O2 Del Method O2 Flow Rate O2 Flow Rate FiO2 03/19/25 07:21 Room Air 21 03/19/25 07:12 03/19/25 05:00 Room Air 03/19/25 04:00 Room Air 03/19/25 02:12 03/19/25 01:11 Room Air 03/19/25 01:11 Room Air 03/19/25 00:49 Room Air 0 03/19/25 00:00 Room Air 03/18/25 22:26 Room Air 03/18/25 22:26 Room Air 0 03/18/25 22:24 Laboratory Results 03/19/25 03/18/25 03/18/25 Range/Units 04:40 23:41 20:26 WBC 11.81 H 11.99 H (4.8-10.8) K/ul RBC 3.46 L 3.53 L (4.70-6.10) M/uL Hgb 11.9 L 12.3 L (14.0-18.0) g/dL Hct 34.6 L 36.3 L (42.0-52.0) % MCV 100.0 102.8 H (80.0-100.0) fL MCH 34.4 H 34.8 H (25.0-34.0) pg MCHC 34.4 33.9 (32.0-36.0) g/dL RDW Std Deviation 51.8 H 53.0 H (36.4-46.3) fL RDW Coeff of Marjorie 14.1 13.9 (11.5-14.5) % Plt Count 143 179 (130-400) K/uL MPV 11.8 11.6 (9.4-12.4) fL Immature Gran % (Auto) 0.3 0.2 % Neut % (Auto) 63.6 69.3 % Lymph % (Auto) 23.9 20.1 % [place] % (Auto) 8.0 7.5 % Eos % (Auto) 3.6 2.4 % Baso % (Auto) 0.6 0.5 % Neut # (Auto) 7.52 H 8.31 H (1.40-6.50) K/uL Lymph # (Auto) 2.82 2.41 (1.20-3.40) K/uL [place] # (Auto) 0.95 H 0.90 H (0.11-0.59) K/uL Eos # (Auto) 0.42 0.29 (0.00-0.50) K/uL Baso # (Auto) 0.07 0.06 (0.00-0.20) K/uL Immature Gran # (Auto) 0.03 0.02 (0.01-0.20) K/uL PT 11.9 (9.0-12.0) Seconds INR 1.1 (0.9-1.1) APTT 26 (21-31) Seconds PTT Ratio 1.0 Sodium 141 139 (136-145) mmol/L Potassium 3.8 4.1 (3.5-5.1) mmol/L Chloride 105 103 (98-107) mmol/L Carbon Dioxide 28 29 (21-32) mmol/L Anion Gap 8 7 (3-11) BUN 35 H 34 H (6-23) mg/dl Creatinine 1.70 H 1.78 H (0.6-1.4) mg/dl Est Cr Clr Drug Dosing 43.6 41.6 ml/min eGFR 41.26 39.05 BUN/Creatinine Ratio 20.6 H 19.1 (10-20) Glucose 109 H 219 H (70-99(Fasting)) mg/dl Calcium 7.8 L 8.1 L (8.6-10.3) mg/dl Magnesium 1.9 (1.7-2.4) mg/dl Total Bilirubin 1.0 (0.2-1.0) mg/dl AST 63 H (13-39) U/L ALT 34 (7-52) U/L Alkaline Phosphatase 199 H (34-104) U/L Troponin I High Sens 12.1 12.8 (0-20) pg/ml B-Natriuretic Peptide 281 H (0-100) pg/ml Total Protein 7.0 (6.0-8.3) gm/dl Albumin 2.4 L (3.4-5.0) gm/dl Globulin 4.6 H (2.5-4.0) gm/dl Albumin/Globulin Ratio 0.5 L (0.9-2) Adenovirus (PCR) Not Detected (NotDetected) B. pertussis DNA (PCR) Not Detected (NotDetected) B.parapertussis DNA PCR Not Detected (NotDetected) C. pneumoniae DNA (PCR) Not Detected (NotDetected) Coronavirus OC43 (PCR) Not Detected (NotDetected) Coronavirus HKU1 (PCR) Not Detected (NotDetected) Coronavirus 229E (PCR) Not Detected (NotDetected) SARS-CoV-2 (PCR) Not Detected (NotDetected) Coronavirus NL63 (PCR) Not Detected (NotDetected) Human Metapneumovir PCR Not Detected (NotDetected) Influenza Type A (PCR) Not Detected (NotDetected) Influenza Type B (PCR) Not Detected (NotDetected) M. pneumoniae (PCR) Not Detected (NotDetected) Parainfluenza 1 (PCR) Not Detected (NotDetected) Parainfluenza 2 (PCR) Not Detected (NotDetected) Parainfluenza 3 (PCR) Not Detected (NotDetected) Parainfluenza 4 (PCR) Not Detected (NotDetected) RSV (PCR) Not Detected (NotDetected) Entero/Rhino (PCR) Not Detected (NotDetected) Diagnostic Findings Telemetry Monitoring Revealing sinus rhythm with frequent PVCs 70-80 bpm CXR 03/18/25 Persistent but improved interstitial and airspace opacities at the lung bases EKG 03/18/25 Sinus rhythm with frequent PVCs 71 bpm EKG 01/20/25 Sinus rhythm with occasional PVCs 1st degree AV block 62 bpm ECHO 01/19/25 Left ventricular systolic function is normal. LVEF = 55-60% Diastolic dysfunction, Grade II (pseudonormalization pattern). The left atrium is mildly dilated. Mild pulmonic valvular regurgitation. There is moderate mitral regurgitation. There is mild to moderate tricuspid regurgitation. Right ventricular systolic pressure is elevated at 30-40 mmHg Nuclear Stress Test 09/24/24 Normal Lexiscan myocardial nuclear perfusion imaging study without evidence of inducible ischemia, or myocardial scar. Gated SPECT images reveals normal myocardial thickening and wall motion. The LV ejection fraction is calculated at 69% ZIO Monitor 08/02/24 Duration: 10 days, 10 hours Patient had a min HR of 60 bpm, max HR of 182 bpm, and avg HR of 76 bpm. Predominant underlying rhythm was Sinus Rhythm. 2 Ventricular Tachycardia runs occurred, the run with the fastest interval lasting 10 beats with a max rate of 176 bpm (avg 151 bpm); the run with the fastest interval was also the longest. 22 Supraventricular Tachycardia runs occurred, the run with the fastest interval lasting 9 beats with a max rate of 182 bpm, the longest lasting 10 beats with an avg rate of 112 bpm. Isolated SVEs were rare (<1.0%), SVE Couplets were rare (<1.0%), and SVE Triplets were rare (<1.0%). Isolated VEs were frequent (18.3%, [id number]), VE Couplets were occasional (1.7%, 9470), and VE Triplets were rare (<1.0%, 182). Ventricular Bigeminy and Trigeminy were present. Symptomatic events correlate with ventricular ectopy including ventricular couplets and ventricular triplets. ECHO 03/02/24 The qualitative LV ejection fraction is 60-64% (normal). The left ventricular wall motion is normal. The left ventricular diastolic function is normal. Moderate aortic valve sclerosis is present. Aortic stenosis is absent. There is borderline posterior mitral leaflet prolapse. Mild late systolic mitral regurgitation. Mild tricuspid regurgitation is present. There is no evidence of pulmonary hypertension. Compared to last available study changes are noted as follows: Aortic valve systolic gradient has increased. Medications Administered Current Inpatient Medications Acetaminophen (Acetaminophen 325 Mg Tab) 650 mg PO Q4H PRN PRN Reason: Pain or Fever Stop: 04/17/25 23:51 Albuterol (Albuterol 0.083% Nebu Soln 3 Ml Vial) 2.5 mg NEB Q6H PRN PRN Reason: Shortness Of Breath Or Wheezing Stop: 04/18/25 00:26 Albuterol (Albuterol Hfa 8 Gm Inhaler) 2 puffs INH Q4H PRN PRN Reason: Shortness Of Breath Or Wheezing Stop: 04/17/25 23:51 Budesonide (Budesonide 0.5 Mg/2 Ml Vial (Pulmicort)) 0.5 mg INH BIDR [facility] Stop: 04/18/25 06:59 Last Admin: 03/19/25 07:21 Dose: 0.5 mg Fluticasone Furoate (Fluticasone Furoate 200mcg 14 Puffs/Inhaler) 1 puffs INH DAILY KARLO Stop: 04/18/25 08:59 Last Admin: 03/19/25 08:14 Dose: 1 puffs Furosemide (Furosemide 40 Mg/4 Ml Vial) 40 mg IV [id number] [facility] Stop: 04/18/25 08:59 Last Admin: 03/19/25 08:14 Dose: 40 mg Heparin Sodium (Porcine) (Heparin Sod 5,000 Unit/0.5 Ml Vial) 5,000 units SQ Q8 KARLO Stop: 04/18/25 05:59 Last Admin: 03/19/25 06:05 Dose: 5,000 units Hydrocortisone (Hydrocortisone 10 Mg Tab) 10 mg PO QAM KARLO Stop: 04/18/25 08:59 Last Admin: 03/19/25 08:12 Dose: 10 mg Hydrocortisone (Hydrocortisone 10 Mg Tab) 5 mg PO QDD [facility] Stop: 04/18/25 16:29 Metoprolol Succinate (Metoprolol Succ 25mg Ext Rel Tab) 12.5 mg PO DAILY KARLO Stop: 04/18/25 08:59 Last Admin: 03/19/25 08:11 Dose: 12.5 mg Montelukast Sodium (Montelukast Sodium 10 Mg Tablet) 10 mg PO DAILY KARLO Stop: 04/18/25 08:59 Last Admin: 03/19/25 08:12 Dose: 10 mg Nitroglycerin (Nitroglycerin Sl 0.4 Mg/Tab Tab) 0.4 mg SL Q5M PRN PRN Reason: Chest Pain Stop: 04/17/25 23:51 Oxycodone HCl (Oxycodone Hcl Ir 10 Mg Tab (Immediate Release)) 10 mg PO Q6 KARLO Stop: 04/02/25 05:59 Last Admin: 03/19/25 06:07 Dose: 10 mg Polyethylene Glycol (Polyethylene (Miralax) 17 Gm Pack) 17 gm PO DAILY PRN PRN Reason: Constipation Stop: 04/17/25 23:51 Umeclidinium/Vilanterol (Umeclidinium/Vilanterol 62.5/25mcg 7 Puffs/Inhaler) 1 puffs INH DAILY KARLO Stop: 04/18/25 08:59 Last Admin: 03/19/25 08:14 Dose: 1 puffs Vitamin D (Cholecalciferol 25 Mcg (1000 Units) Tab) 50 mcg PO DAILY KARLO Stop: 04/18/25 08:59 Last Admin: 03/19/25 08:13 Dose: 50 mcg PG Care Time/CCT Total # of Minutes Spent Total Time Spent with Patient: Total time spent is greater than 50% in coordination of care (as documented) at patient's floor/unit and/or counseling patient: Coding Level of Care Code 63450 INT INP/OBS CARE 3/75MIN Diagnoses Acute on chronic diastolic HF (heart failure) I50.33 Chronic heart failure with preserved ejection fraction (HFpEF) I50.32 Heart failure chronicity: chronic Shortness of breath R06.02 Other cirrhosis of liver K74.69 Hepatic cirrhosis type: other cirrhosis JUWAN (acute kidney injury) N17.9 Stage 3b chronic kidney disease N18.32 Chronic kidney disease stage 3 subtype: stage 3b (GFR 30-44) (2) (HFpEF) heart failure with preserved ejection fraction Heart failure chronicity: chronic Qualified Code(s): I50.32 - Chronic diastolic (congestive) heart failure (4) Cirrhosis Hepatic cirrhosis type: other cirrhosis Qualified Code(s): K74.69 - Other cirrhosis of liver (6) CKD (chronic kidney disease), stage III Chronic kidney disease stage 3 subtype: stage 3b (GFR 30-44) Qualified Code(s): N18.32 - Chronic kidney disease, stage 3b
[2025-03-19] MEDS: ONDANSETRON INJ 2 MG/ML 2 ML VIAL IV PRN (09:55)
--- NOTE | 2025-03-19 12:19 | Nephrology Consultation ---
Date of Consultation March 19, 2025 Assessment & Plan (1) JUWAN (acute kidney injury): Creat baseline about 1..3. Creat slightly higher than baseline but stable at 1.7. Most likely hemodynamic etiology. Check US abdomen Complete--assess liver, kidney and also for ascites. Avoid nephrotoxic agents and Abx. Avoid contrast, NSAIDs. daily labs is enough. he came in with SOB. Currently being assumed as having CHF. However does not appear he has clear e/o CHF. Has underlying Lung and liver issue also and probably multifactorial. for now continue lasix 40 iv bid No detailed workup needed for JUWAN. (2) (HFpEF) heart failure with preserved ejection fraction: he came in with SOB. Currently being assumed as having CHF. However does not appear he has clear e/o CHF. Has underlying Lung and liver isssue also and probably multifactorial. for now continue lasix 40 iv bid. Creat sligghtly higher than baseline but stable at 1.7. Plan time spent 62 mins History of Present Illness Reason for Consultation: JUWAN on CKD 3 now with CHF Attending Physician: Mathwe Jaquez MD History of Present Illness 74/M with CKD 3 and more recent baseline now about 1.3, hypersensitive pneumonitis, eosinophilic asthma, hyperlipidemia, asbestosis pneumoconiosis, restrictive lung disease, chronic sinusitis, chronic CHF with preserved ejection fraction, hypertension, orthostatic hypotension, cirrhosis of liver with ascites, protein calorie malnutrition, history of prostate cancer, chronic pain syndrome, autonomic neuropathy presents with shortness of breath and weight gain. Patient recently had upper respiratory infection and was treated with doxycycline. After finishing doxycycline about a week ago patient was getting more short of breath and gained about 10 pounds of weight. He took extra Lasix for 3 days and lost about 6 pounds . After stopping extra lasi started gaining wt agin and became more SOB which prompted him to come to the ER. Weight is mostly in his abdomen region and not uch edema. Has chronic cough and bringing phlegm. No dizziness. Vision is okay. Has postnasal drip. Appetite not great. Denies any chest pain. No nausea. No abdominal pain. Micturating okay. Normal bowel movements. Ambulates okay. Currently hemodynamics are okay. Since admission got lasix 40 iv bid. Creat was 1.78 and this Am also same at 1.7. he does not feel any better since admission. ROS--12 Systems reviewed and is otherwise negative Physical Exam Physical Exam: General- Not in distress. 94% RA Head- atraumatic, oropharynx clear, MM moist Neck- supple, no JVD. Lungs- clear to auscultation b/l occ coarse crackles heard, no wheezing Heart- regular rate and rhythm; no murmur, no gallop. Abdomen- soft, nontender, no distension Extremities- no edema Neuro- alert, oriented Allergies Allergy/AdvReac Type Severity Reaction Status Date / Time lisinopril Allergy Dizziness Verified 07/25/24 22:46 losartan Allergy Dizziness Verified 07/25/24 22:46 Home Medications Medication Instructions Recorded Confirmed Type albuterol sulfate 0.63 mg/3 mL 0.63 mg continuous nebulization 03/18/25 03/18/25 History solution for nebulization Q6H PRN Shortness Of Breath Or Wheezing albuterol sulfate 90 mcg/actuation 2 puff inhalation Q4H PRN 03/18/25 03/18/25 History aerosol inhaler Shortness Of Breath Or Wheezing budesonide 0.5 mg/2 mL suspension 0.5 mg inhalation BID 03/18/25 03/18/25 History for nebulization cholecalciferol (vitamin D3) 50 50 mcg PO DAILY 03/18/25 03/18/25 History mcg (2,000 unit) capsule fluticasone fur. 200 mcg-umeclid 1 inh inhalation DAILY 03/18/25 03/18/25 History 62.5 mcg-vilant 25 mcg inhalat.powder (Trelegy Ellipta) furosemide 40 mg tablet 40 mg PO DAILY 03/18/25 03/18/25 History hydrocortisone 5 mg tablet 5 mg PO UD 03/18/25 03/18/25 History metoprolol succinate 25 mg 12.5 mg PO DAILY 03/18/25 03/18/25 History tablet,extended release 24 hr montelukast 10 mg tablet 10 mg PO DAILY 03/18/25 03/18/25 History oxycodone 10 mg tablet 10 mg PO QID 03/18/25 03/18/25 History Patient History Medical History Peripheral eosinophilia Anemia Cirrhosis H/O endocarditis DMII (diabetes mellitus, type 2) CKD (chronic kidney disease), stage III Hypertensive urgency Acute decompensated heart failure Opioid type dependence, unspecified Social History Smoking Status: Former smoker Tobacco Type: Cigarettes Cigarettes Per Day: 15; Second Hand Exposure: No; Do You Dip or Chew Tobacco: No; Tobacco Cessation Education Requested by Patient: No Hx Alcohol Use: No Hx Substance Use: No Preferred Language: Liberian Communication Ability: Effective Quality Control Engineering Technician Required: No Beliefs That Will Affect Care: None marital status: Current Living Situation: Spouse Current Living Situation Comment: lives in two story home with Other Information That Helps Us Care for You: No Feels Safe at Home: Yes Safety Concerns: Feels Safe At This Time Assistive Devices: Denture - Upper Results & Data Vital Signs (Past 12 Hours) Vital Signs Temp Pulse Pulse Resp BP Pulse Ox Pulse Ox 03/19/25 07:21 67 15 94 03/19/25 07:12 65 03/19/25 05:00 67 18 126/59 L 96 03/19/25 04:00 66 18 110/47 L 95 03/19/25 02:12 74 03/19/25 01:11 03/19/25 01:11 36.6 C 72 18 145/60 H 94 03/19/25 00:49 94 O2 Del Method O2 Del Method O2 Flow Rate FiO2 03/19/25 07:21 Room Air 21 03/19/25 07:12 03/19/25 05:00 Room Air 03/19/25 04:00 Room Air 03/19/25 02:12 03/19/25 01:11 Room Air 03/19/25 01:11 Room Air 03/19/25 00:49 Room Air 0 Laboratory Results CBC. enal pael. CXR (2) (HFpEF) heart failure with preserved ejection fraction Heart failure chronicity: chronic Qualified Code(s): I50.32 - Chronic diastolic (congestive) heart failure
--- NOTE | 2025-03-19 14:26 | Ultrasound Report ---
US abdomen complete CLINICAL HISTORY: Abdominal distension, Cirrhosis and JUWAN. COMPARISON STUDY: Renal ultrasound January 17, 2022. CT of the abdomen and pelvis April 08, 2024. FINDINGS: This exam is moderately compromised by suboptimal penetration. There is no biliary ductal d ilatation status post cholecystectomy. Cirrhotic liver is noted. No hepatic lesions are identified. T he pancreas is obscured. The abdominal aorta is also partially obscured but there is no abdominal aor tic aneurysm. IVC is obscured. Mild splenomegaly is unchanged since prior CT. The spleen measures 14 cm in maximal sagittal dimension. The right kidney measures 10.3 x 4.9 x 4.8 cm and the left kidney m easures 9.2 x 4.8 x 5.1 cm. There is no hydronephrosis. No ascites is identified. IMPRESSION: 1. Cirrhotic liver. No hepatic lesions identified by sonography. Exam compromised by suboptimal penet ration. 2. No change in splenomegaly since CT of April 08, 2024. 3. No ascites. 4. No hydronephrosis. 5. No biliary ductal dilatation status post cholecystectomy. ACT 112: Negative or not required by law. Electronically signed by: Nemesio Gtz M.D. 03/19/2025 2:25 PM
--- NOTE | 2025-03-19 15:33 | Communication Note ---
Date of Service: March 19, 2025 The patient was seen and examined in telemetry unit.He is admitted to this morning with the CHF and has been getting better with intravenous Lasix admin istration. He is being seen by data processing control clerk and barrel cutter. A full progress note will be done by the hospitalist tomorrow she does not. Dr Romelia Jaquez
--- NOTE | 2025-03-19 16:33 | Hospitalist Progress Note ---
Date of Service March 19, 2025 Assessment & Plan (1) Acute CHF: Plan: 74-year-old male with past medical history significant for hypersensitive pneumonitis, eosinophilic asthma, hyperlipidemia, asbestosis pneumoconiosis, restrictive lung disease, chronic sinusitis, chronic CHF with preserved ejection fraction, hypertension, orthostatic hypotension, cirrhosis of liver with ascites, protein calorie malnutrition, history of prostate cancer, stage III CKD, chronic pain syndrome, autonomic neuropathy presents with shortness of breath and weight gain. Patient recently had upper respiratory infection and was treated with doxycycline. After finishing doxycycline about a week ago patient was getting more short of breath and gained about 10 pounds of weight. He took extra Lasix for 3 days and lost about 6 pounds and he took extra Lasix for 1 more day and stopped taking extra Lasix dose. But again in 1 day gained 2 pounds of weight which prompted him to come to the ER today. Weight is mostly in his abdomen region. Getting short of breath on exertion. Has a cough and bringing phlegm. Was having headaches. Currently no headache. No dizziness. Vision is okay. Has postnasal drip. Appetite not great. Denies any chest pain. No nausea. No abdominal pain. Micturating okay. Normal bowel movements. Ambulates okay. Currently hemodynamics are okay. Family in the room. Acute on chronic diastolic CHF Presents with shortness of breath and weight gain Received IV Lasix 40 mg the ER Will continue with IV Lasix 40 mg twice daily Daily weights and I's and O's Clinically a little better Appreciate cardiology input and recommendation Will continue Lasix intravenously 40 mg twice daily and monitor intake output JUWAN on CKD stage III Presented with creatinine 1.7 Baseline creatinine 1.3 Appreciate nephrology consult and recommendation to continue Lasix at the current dose Severe persistent asthma with eosinophilia Follows with pulmonary Recently saw pulmonary On Trelegy once daily On nebulized budesonide twice daily On albuterol Fasenra prescribed but not started due to cost Also on hydrocortisone On nebs as needed Lying flat without any audible wheezing and shortness of breath at rest Decreased lung sounds without significant wheezing but has bibasilar crackles Restrictive lung disease due to asbestosis pneumoconiosis Following with pulmonary Hypersensitive pneumonitis Likely due to mold exposure. Managed with hydrocortisone Following with pulmonary Has appointment with rheumatology on Apr 12 Positive SONYA screen History of prostate cancer S/p radiation treatment Hepatic cirrhosis Secondary to MAYBERRY Follows with GI Hypertension Because of hypotension his medications were discontinued in the past Currently on metoprolol and diuretics Will monitor Chronic pain On oxycodone History of autonomic orthostasis Currently no longer on midodrine and fludrocortisone On Cortef. DVT prophylaxis heparin subcu Disposition Telemetry Full code. I have spent a total of 53 minutes examining the patient, reviewed the chart and going over the investigation results, planning of care and discussion with the specialist Updated the about his current condition DR Romelia Jaquez Admission and Anticipated Discharge Date Admission Date: March 18, 2025 Subjective 03/19/2025 The patient was seen and examined in telemetry unit He was admitted with CHF and shortness of breath Feeling little better since admission Denies any chest pain or palpitation Review of Systems Review of Systems: All systems reviewed and unremarkable except as noted below Physical Exam Physical Exam: Lying in bed without any acute distress Constitutional: well developed and well nourished; not ill appearing Eyes: PERRL, conjunctivae normal, anicteric sclerae ENMT: external ear and nose normal, oropharynx normal Neck: trachea midline, no thyromegaly Respiratory: no respiratory distress Auscultation: + crackles (Minimal crackles at the bases) Cardiovascular: Rate/Rhythm: regular rate and regular rhythm; not tachycardic Heart Sounds: normal S1, normal S2 and + murmur Extremities: no edema Gastrointestinal (Abdomen): Inspection/Auscultation: normal bowel sounds; abdomen not distended Percussion/Palpation: abdomen soft; abdomen nontender Musculoskeletal: No acute arthritis involving any of the joint Neurologic: normal touch/pain/proprioception and moves all extremities; no focal motor deficits Lymphatic: no cervical or axillary lymphadenopathy Results & Data Results & Data Vital Signs (Past 12 Hours) Vital Signs Temp Pulse Pulse Resp BP Pulse Ox O2 Del Method 03/19/25 15:24 36.6 C 73 20 156/65 H 92 Room Air 03/19/25 14:50 66 03/19/25 13:09 36.8 C 71 18 145/83 H 99 Room Air 03/19/25 12:57 Room Air 03/19/25 07:21 67 15 94 Room Air 03/19/25 07:12 65 03/19/25 05:00 67 18 126/59 L 96 Room Air FiO2 03/19/25 15:24 03/19/25 14:50 03/19/25 13:09 03/19/25 12:57 03/19/25 07:21 21 03/19/25 07:12 03/19/25 05:00 Laboratory Results Short CBC 03/18/25 03/19/25 Range/Units 20:26 04:40 WBC 11.99 H 11.81 H (4.8-10.8) K/ul Hgb 12.3 L 11.9 L (14.0-18.0) g/dL Hct 36.3 L 34.6 L (42.0-52.0) % Plt Count 179 143 (130-400) K/uL BMP 03/18/25 03/19/25 20:26 04:40 Sodium 139 141 Potassium 4.1 3.8 Chloride 103 105 Carbon Dioxide 29 28 BUN 34 H 35 H Creatinine 1.78 H 1.70 H Glucose 219 H 109 H Calcium 8.1 L 7.8 L Liver Function 03/18/25 Range/Units 20:26 Total Bilirubin 1.0 (0.2-1.0) mg/dl AST 63 H (13-39) U/L ALT 34 (7-52) U/L Alkaline Phosphatase 199 H (34-104) U/L Albumin 2.4 L (3.4-5.0) gm/dl Medications Administered Current Inpatient Medications Acetaminophen (Acetaminophen 325 Mg Tab) 650 mg PO Q4H PRN PRN Reason: Pain or Fever Stop: 04/17/25 23:51 Albuterol (Albuterol 0.083% Nebu Soln 3 Ml Vial) 2.5 mg NEB Q6H PRN PRN Reason: Shortness Of Breath Or Wheezing Stop: 04/18/25 00:26 Albuterol (Albuterol Hfa 8 Gm Inhaler) 2 puffs INH Q4H PRN PRN Reason: Shortness Of Breath Or Wheezing Stop: 04/17/25 23:51 Budesonide (Budesonide 0.5 Mg/2 Ml Vial (Pulmicort)) 0.5 mg INH BIDR [facility] Stop: 04/18/25 06:59 Last Admin: 03/19/25 07:21 Dose: 0.5 mg Fluticasone Furoate (Fluticasone Furoate 200mcg 14 Puffs/Inhaler) 1 puffs INH DAILY [facility] Stop: 04/18/25 08:59 Last Admin: 03/19/25 08:14 Dose: 1 puffs Furosemide (Furosemide 40 Mg/4 Ml Vial) 40 mg IV [id number] [facility] Stop: 04/18/25 08:59 Last Admin: 03/19/25 08:14 Dose: 40 mg Heparin Sodium (Porcine) (Heparin Sod 5,000 Unit/0.5 Ml Vial) 5,000 units SQ Q8 [facility] Stop: 04/18/25 05:59 Last Admin: 03/19/25 15:12 Dose: 5,000 units Hydrocortisone (Hydrocortisone 10 Mg Tab) 10 mg PO QAM [facility] Stop: 04/18/25 08:59 Last Admin: 03/19/25 08:12 Dose: 10 mg Hydrocortisone (Hydrocortisone 10 Mg Tab) 5 mg PO QDD [facility] Stop: 04/18/25 16:29 Metoprolol Succinate (Metoprolol Succ 25mg Ext Rel Tab) 12.5 mg PO DAILY [facility] Stop: 04/18/25 08:59 Last Admin: 03/19/25 08:11 Dose: 12.5 mg Montelukast Sodium (Montelukast Sodium 10 Mg Tablet) 10 mg PO DAILY [facility] Stop: 04/18/25 08:59 Last Admin: 03/19/25 08:12 Dose: 10 mg Nitroglycerin (Nitroglycerin Sl 0.4 Mg/Tab Tab) 0.4 mg SL Q5M PRN PRN Reason: Chest Pain Stop: 04/17/25 23:51 Ondansetron HCl (Ondansetron Inj 2 Mg/Ml 2 Ml Vial) 4 mg IV Q6H PRN PRN Reason: Nausea And Vomiting Stop: 04/18/25 09:32 Last Admin: 03/19/25 09:55 Dose: 4 mg Oxycodone HCl (Oxycodone Hcl Ir 10 Mg Tab (Immediate Release)) 10 mg PO Q6 [facility] Stop: 04/02/25 05:59 Last Admin: 03/19/25 11:22 Dose: 10 mg Polyethylene Glycol (Polyethylene (Miralax) 17 Gm Pack) 17 gm PO DAILY PRN PRN Reason: Constipation Stop: 04/17/25 23:51 Umeclidinium/Vilanterol (Umeclidinium/Vilanterol 62.5/25mcg 7 Puffs/Inhaler) 1 puffs INH DAILY [facility] Stop: 04/18/25 08:59 Last Admin: 03/19/25 08:14 Dose: 1 puffs Vitamin D (Cholecalciferol 25 Mcg (1000 Units) Tab) 50 mcg PO DAILY [facility] Stop: 04/18/25 08:59 Last Admin: 03/19/25 08:13 Dose: 50 mcg Yeah not only you you
--- NOTE | 2025-03-19 18:44 | Electrocardiogram Report ---
Test Reason : Blood Pressure : */* mmHG Vent. Rate : 71 BPM Atrial Rate : 71 BPM P-R Int : 188 ms QRS Dur : 108 ms QT Int : 420 ms P-R-T Axes : * -24 33 degrees QTcB Int : 456 ms Sinus rhythm with frequent Premature ventricular complexes Moderate voltage criteria for LVH, may be normal variant Nonspecific ST abnormality Abnormal ECG When compared with ECG of 20-Jan-2025 12:15, No significant change was found Confirmed by Hany Moreland [id number]) on 03/19/2025 6:43:52 PM Referred By: REFERRED SELF Confirmed By: Hany Moreland
[2025-03-20 06:04] LABS: Hematocrit (blood only) 32.4 % (42.0-52.0); Hemoglobin 11.0 g/dL (14.0-18.0); Immature Granulocytes # (auto) 0.03 K/uL (0.01-0.20); Immature Granulocytes % (auto) 0.3 %; Mean Corpuscular Hemoglobin 34.1 pg (25.0-34.0); Mean Corpuscular Volume 100.3 fL (80.0-100.0); Platelet Count 130 K/uL (130-400); RDW Standard Deviation 50.8 fL (36.4-46.3); Red Blood Count 3.23 M/uL (4.70-6.10); White Blood Count 11.49 K/ul (4.8-10.8)
[2025-03-20 06:31] LABS: Alanine Aminotransferase 29.0 U/L (7-52); Albumin Level 2.1 gm/dl (3.4-5.0); Alkaline Phosphatase 167.0 U/L (34-104); Anion Gap 5.0 (3-11); Bilirubin,Total 1.2 mg/dl (0.2-1.0); Blood Urea Nitrogen 32.0 mg/dl (6-23); Calcium 7.8 mg/dl (8.6-10.3); Carbon Dioxide 29.0 mmol/L (21-32); Chloride 106.0 mmol/L (98-107); Creatinine Clr Calc Pharmacy 43.8 ml/min; Glucose 117.0 mg/dl (70-99(Fasting)); Magnesium 2.1 mg/dl (1.7-2.4); Potassium 4.1 mmol/L (3.5-5.1); Sodium 140.0 mmol/L (136-145); Total Protein 6.0 gm/dl (6.0-8.3)
--- NOTE | 2025-03-20 11:24 | Nephrology Progress Note ---
Date of Service March 20, 2025 Assessment & Plan Admission and Anticipated Discharge Date Admission Date: March 18, 2025 Subjective Assessment & Plan (1) JUWAN (acute kidney injury): Creat baseline about 1..3. Creat slightly higher than baseline but stable at 1.6--1.8. Most likely hemodynamic etiology. Check US abdomen Complete--assess liver, kidney and also for ascites---done 03/19--No ascites. has Cirrhosis ( not new) and kidneys appears fine. Avoid nephrotoxic agents and Abx. Avoid contrast, NSAIDs. daily labs is enough. he came in with SOB. Currently being assumed as having CHF. However does not appear he has clear e/o CHF. Has underlying Lung and liver issue also and probably multifactorial. for now continue lasix 40 iv bid given BP and renal function remains stable. No detailed workup needed for JUWAN. (2) (HFpEF) heart failure with preserved ejection fraction: he came in with SOB. Currently being assumed as having CHF. However does not appear he has clear e/o CHF. Has underlying Lung and liver issue also and probably multifactorial. for now continue lasix 40 iv bid. Creat slightly higher than baseline but stable at 1.7. S--feels about same. Still feels SOB but is resting comfortably. No o2 ROS--12 Systems reviewed and is otherwise negative Physical Exam Physical Exam: General- Not in distress. 94% RA Head- atraumatic, oropharynx clear, MM moist Neck- supple, no JVD. Lungs- clear to auscultation b/l occ coarse crackles heard, no wheezing Heart- regular rate and rhythm; no murmur, no gallop. Abdomen- soft, nontender, no distension Extremities- no edema Neuro- alert, oriented Results & Data Vital Signs (Past 12 Hours) Vital Signs Temp Pulse Pulse Resp BP Pulse Ox O2 Del Method 03/20/25 11:20 Room Air 03/20/25 11:13 36.6 C 59 L 18 132/67 95 Room Air 03/20/25 07:30 36.7 C 61 14 124/60 91 Room Air 03/20/25 07:27 65 03/20/25 07:24 Room Air 03/20/25 07:00 60 18 95 Room Air 03/20/25 02:49 37.1 C 67 18 108/44 L 90 Room Air 03/20/25 00:52 63 03/20/25 00:00 03/19/25 23:25 36.9 C 65 18 121/56 L 94 Room Air O2 Del Method 03/20/25 11:20 03/20/25 11:13 03/20/25 07:30 03/20/25 07:27 03/20/25 07:24 03/20/25 07:00 03/20/25 02:49 03/20/25 00:52 03/20/25 00:00 Room Air 03/19/25 23:25
--- NOTE | 2025-03-20 16:17 | Hospitalist Progress Note ---
Date of Service March 20, 2025 Assessment & Plan (1) Acute CHF: Plan: 74-year-old male with past medical history significant for hypersensitive pneumonitis, eosinophilic asthma, hyperlipidemia, asbestosis pneumoconiosis, restrictive lung disease, chronic sinusitis, chronic CHF with preserved ejection fraction, hypertension, orthostatic hypotension, cirrhosis of liver with ascites, protein calorie malnutrition, history of prostate cancer, stage III CKD, chronic pain syndrome, autonomic neuropathy presents with shortness of breath and weight gain. Patient recently had upper respiratory infection and was treated with doxycycline. After finishing doxycycline about a week ago patient was getting more short of breath and gained about 10 pounds of weight. He took extra Lasix for 3 days and lost about 6 pounds and he took extra Lasix for 1 more day and stopped taking extra Lasix dose. But again in 1 day gained 2 pounds of weight which prompted him to come to the ER today. Weight is mostly in his abdomen region. Getting short of breath on exertion. Has a cough and bringing phlegm. Was having headaches. Currently no headache. No dizziness. Vision is okay. Has postnasal drip. Appetite not great. Denies any chest pain. No nausea. No abdominal pain. Micturating okay. Normal bowel movements. Ambulates okay. Currently hemodynamics are okay. Family in the room. 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 He will get PT and OT evaluation prior to discharge home JUWAN on CKD stage III Presented with creatinine 1.7 Baseline creatinine 1.3 Appreciate nephrology consult and recommendation to continue Lasix at the current dose Kidney function remains stable with a BUN and creatinine ratio of 32/1.69 slightly improved compared with yesterday Severe persistent asthma with eosinophilia Follows with pulmonary Recently saw pulmonary On Trelegy once daily On nebulized budesonide twice daily On albuterol Fasenra prescribed but not started due to cost Also on hydrocortisone On nebs as needed Lying flat without any audible wheezing and shortness of breath at rest Decreased lung sounds without significant wheezing but has bibasilar crackles No evidence of acute exacerbation of asthma Restrictive lung disease due to asbestosis pneumoconiosis Following with pulmonary as an outpatient Hypersensitive pneumonitis Likely due to mold exposure. Managed with hydrocortisone Following with pulmonary Has appointment with rheumatology on Apr 12 Positive SONYA screen History of prostate cancer S/p radiation treatment Hepatic cirrhosis Secondary to MAYBERRY Follows with GI Hypertension Because of hypotension his medications were discontinued in the past Currently on metoprolol and diuretics Will monitor Chronic pain On oxycodone History of autonomic orthostasis Currently no longer on midodrine and fludrocortisone On Cortef. DVT prophylaxis heparin subcu Disposition Telemetry Full code. I have spent a total of 35 minutes examining the patient, reviewed the chart and going over the investigation results, planning of care and discussion with the specialist Updated the about his current condition DR Romelia Jaquez Admission and Anticipated Discharge Date Admission Date: March 18, 2025 Subjective 03/19/2025 The patient was seen and examined in telemetry unit He was admitted with CHF and shortness of breath Feeling little better since admission Denies any chest pain or palpitation 03/20/2025 The patient was seen and examined in telemetry unit He has been stable and lying flat without any shortness of breath or wheezing He remains generally weak and does not want to be discharged patient Review of Systems Review of Systems: All systems reviewed and unremarkable except as noted below Physical Exam Physical Exam: Lying in bed without any acute distress Constitutional: well developed and well nourished; not ill appearing Eyes: PERRL, conjunctivae normal, anicteric sclerae ENMT: external ear and nose normal, oropharynx normal Neck: trachea midline, no thyromegaly Respiratory: no respiratory distress Auscultation: + crackles (Minimal crackles at the bases) Cardiovascular: Rate/Rhythm: regular rate and regular rhythm; not tachycardic Heart Sounds: normal S1, normal S2 and + murmur Extremities: no edema Gastrointestinal (Abdomen): Inspection/Auscultation: normal bowel sounds; abdomen not distended Percussion/Palpation: abdomen soft; abdomen nontender Neurologic: normal touch/pain/proprioception and moves all extremities; no focal motor deficits Lymphatic: no cervical or axillary lymphadenopathy Results & Data Results & Data Vital Signs (Past 12 Hours) Vital Signs Temp Pulse Pulse Resp BP Pulse Ox O2 Del Method 03/20/25 14:46 80 03/20/25 14:32 36.7 C 62 18 138/65 91 Room Air 03/20/25 11:20 Room Air 03/20/25 11:13 36.6 C 59 L 18 132/67 95 Room Air 03/20/25 07:30 36.7 C 61 14 124/60 91 Room Air 03/20/25 07:27 65 03/20/25 07:24 Room Air 03/20/25 07:00 60 18 95 Room Air Laboratory Results Short CBC 03/20/25 Range/Units 05:41 WBC 11.49 H (4.8-10.8) K/ul Hgb 11.0 L (14.0-18.0) g/dL Hct 32.4 L (42.0-52.0) % Plt Count 130 (130-400) K/uL BMP 03/20/25 05:41 Sodium 140 Potassium 4.1 Chloride 106 Carbon Dioxide 29 BUN 32 H Creatinine 1.69 H Glucose 117 H Calcium 7.8 L Liver Function 03/20/25 Range/Units 05:41 Total Bilirubin 1.2 H (0.2-1.0) mg/dl Direct Bilirubin 0.3 H (0-0.2) mg/dl AST 51 H (13-39) U/L ALT 29 (7-52) U/L Alkaline Phosphatase 167 H (34-104) U/L Albumin 2.1 L (3.4-5.0) gm/dl Home Medications Administered Current Inpatient Medications Acetaminophen (Acetaminophen 325 Mg Tab) 650 mg PO Q4H PRN PRN Reason: Pain or Fever Stop: 04/17/25 23:51 Albuterol (Albuterol 0.083% Nebu Soln 3 Ml Vial) 2.5 mg NEB Q6H PRN PRN Reason: Shortness Of Breath Or Wheezing Stop: 04/18/25 00:26 Albuterol (Albuterol Hfa 8 Gm Inhaler) 2 puffs INH Q4H PRN PRN Reason: Shortness Of Breath Or Wheezing Stop: 04/17/25 23:51 Amlodipine Besylate (Amlodipine Besylate 5 Mg Tab) 5 mg PO QAM [facility] Stop: 04/19/25 08:59 Last Admin: 03/20/25 08:20 Dose: 5 mg Budesonide (Budesonide 0.5 Mg/2 Ml Vial (Pulmicort)) 0.5 mg INH BIDR [facility] Stop: 04/18/25 06:59 Last Admin: 03/20/25 06:59 Dose: 0.5 mg Fluticasone Furoate (Fluticasone Furoate 200mcg 14 Puffs/Inhaler) 1 puffs INH DAILY [facility] Stop: 04/18/25 08:59 Last Admin: 03/20/25 08:21 Dose: 1 puffs Heparin Sodium (Porcine) (Heparin Sod 5,000 Unit/0.5 Ml Vial) 5,000 units SQ Q8 [facility] Stop: 04/18/25 05:59 Last Admin: 03/20/25 13:50 Dose: 5,000 units Hydrocortisone (Hydrocortisone 10 Mg Tab) 10 mg PO QAM [facility] Stop: 04/18/25 08:59 Last Admin: 03/20/25 08:22 Dose: 10 mg Hydrocortisone (Hydrocortisone 10 Mg Tab) 5 mg PO QDD [facility] Stop: 04/18/25 16:29 Last Admin: 03/19/25 17:42 Dose: 5 mg Montelukast Sodium (Montelukast Sodium 10 Mg Tablet) 10 mg PO DAILY [facility] Stop: 04/18/25 08:59 Last Admin: 03/20/25 08:22 Dose: 10 mg Nitroglycerin (Nitroglycerin Sl 0.4 Mg/Tab Tab) 0.4 mg SL Q5M PRN PRN Reason: Chest Pain Stop: 04/17/25 23:51 Ondansetron HCl (Ondansetron Inj 2 Mg/Ml 2 Ml Vial) 4 mg IV Q6H PRN PRN Reason: Nausea And Vomiting Stop: 04/18/25 09:32 Last Admin: 03/19/25 09:55 Dose: 4 mg Oxycodone HCl (Oxycodone Hcl Ir 10 Mg Tab (Immediate Release)) 10 mg PO Q6 [facility] Stop: 04/02/25 05:59 Last Admin: 03/20/25 11:51 Dose: 10 mg Polyethylene Glycol (Polyethylene (Miralax) 17 Gm Pack) 17 gm PO DAILY PRN PRN Reason: Constipation Stop: 04/17/25 23:51 Umeclidinium/Vilanterol (Umeclidinium/Vilanterol 62.5/25mcg 7 Puffs/Inhaler) 1 puffs INH DAILY [facility] Stop: 04/18/25 08:59 Last Admin: 03/20/25 08:21 Dose: 1 puffs Vitamin D (Cholecalciferol 25 Mcg (1000 Units) Tab) 50 mcg PO DAILY [facility] Stop: 04/18/25 08:59 Last Admin: 03/20/25 08:21 Dose: 50 mcg
--- NOTE | 2025-03-20 16:30 | Cardiology Progress Note ---
Date of Service March 20, 2025 Assessment & Plan (1) Acute on chronic diastolic HF (heart failure): (2) (HFpEF) heart failure with preserved ejection fraction: (3) Shortness of breath: (4) Cirrhosis: (5) JUWAN (acute kidney injury): (6) CKD (chronic kidney disease), stage III: Plan Patient presenting to [facility] ED 03/18/25 for recent weight gain and progressive SOB despite recent DTP. Previously hospitalized in July and December of this year for JUWAN and acute on chronic HFpEF requiring IV diuresis. Symptoms seem improved. Does not appear to be volume overloaded on exam. Patient has a complex medical history including lung disease and hepatic cirrhosis which could be contributing to symptoms. Patient is not in acute CHF today at the time of exam Viral syndrome COPD/Asthma Exacerbation ILD JUWAN on CKD - better HTN - poorly controlled -> stable HFpEF - stable Cirrhosis Mild to moderate PHTN Recommend: patient's acute CHF in the ER appears to have resolved - clinically and radiographically not in acute CHF DCd Lasix especially in view of worsening azotemia correct and f/u electrolytes f/u renal function DCd beta blockers due to hyperreactive airway disease Started Norvas for HTN bronchodilators Pulmonary evaluation Pulmonary optimization Management of viral syndrome as per hospitalist GDMT for HFpEF limited due to renal insufficiency adjust anti-HTN meds keeping systolic BP between 100-140 mmHg avoid hypovolemia keep patient euvolemic DVT prophylaxis keep LE elevated when sitting strict I&Os salt restriction counseling increase PO fluid intake Admission and Anticipated Discharge Date Admission Date: March 18, 2025 Supervising Physician Co-Signing Physician Notes Subjective Patient on exam is lying supine with 1 pillow in bed in NAD; no c/o cp, sob, palpitations, dizziness, LOC, cough, fever, nausea, vomiting, abdominal pain, urinary or bowel problem problems recovering from apparent Viral syndrome which he had for about weeks Review of Systems Review of Systems: as per hpi Physical Exam Constitutional: WD/WN, vitals as above Neck: supple, NT Respiratory: normal respiratory effort no rales, no wheezing, distant BS Cardiovascular: Rate/Rhythm: regular rate and regular rhythm (systolic murmur) Heart Sounds: normal S1, normal S2 and + murmur (+1/6 systolic murmur) Vessels: no JVD Extremities: no edema Gastrointestinal (Abdomen): normal bowel sounds, soft, nontender, no hepatosplenomegaly Skin: no rashes, warm and dry Neurologic: PERRL, EOMI, accommodation nl, no face palsy, no dysarthria Psychiatric: A+Ox3, euthymic affect Results & Data Vital Signs (Past 12 Hours) Vital Signs Temp Pulse Pulse Resp BP Pulse Ox O2 Del Method 03/20/25 14:46 80 03/20/25 14:32 36.7 C 62 18 138/65 91 Room Air 03/20/25 11:20 Room Air 03/20/25 11:13 36.6 C 59 L 18 132/67 95 Room Air 03/20/25 07:30 36.7 C 61 14 124/60 91 Room Air 03/20/25 07:27 65 03/20/25 07:24 Room Air 03/20/25 07:00 60 18 95 Room Air Laboratory Results Laboratory Results WBC 11.49 K/ul (4.8-10.8) H 03/20/25 05:41 RBC 3.23 M/uL (4.70-6.10) L 03/20/25 05:41 Hgb 11.0 g/dL (14.0-18.0) L 03/20/25 05:41 Hct 32.4 % (42.0-52.0) L 03/20/25 05:41 MCV 100.3 fL (80.0-100.0) H 03/20/25 05:41 MCH 34.1 pg (25.0-34.0) H 03/20/25 05:41 MCHC 34.0 g/dL (32.0-36.0) 03/20/25 05:41 RDW Std Deviation 50.8 fL (36.4-46.3) H 03/20/25 05:41 RDW Coeff of Marjorie 13.8 % (11.5-14.5) 03/20/25 05:41 Plt Count 130 K/uL (130-400) 03/20/25 05:41 MPV 11.6 fL (9.4-12.4) 03/20/25 05:41 Immature Gran % (Auto) 0.3 % 03/20/25 05:41 Neut % (Auto) 63.4 % 03/20/25 05:41 Lymph % (Auto) 24.8 % 03/20/25 05:41 Zavala % (Auto) 7.4 % 03/20/25 05:41 Eos % (Auto) 3.7 % 03/20/25 05:41 Baso % (Auto) 0.4 % 03/20/25 05:41 Neut # (Auto) 7.29 K/uL (1.40-6.50) H 03/20/25 05:41 Lymph # (Auto) 2.85 K/uL (1.20-3.40) 03/20/25 05:41 Zavala # (Auto) 0.85 K/uL (0.11-0.59) H 03/20/25 05:41 Eos # (Auto) 0.42 K/uL (0.00-0.50) 03/20/25 05:41 Baso # (Auto) 0.05 K/uL (0.00-0.20) 03/20/25 05:41 Immature Gran # (Auto) 0.03 K/uL (0.01-0.20) 03/20/25 05:41 PT 11.9 Seconds (9.0-12.0) 03/18/25 20:26 INR 1.1 (0.9-1.1) 03/18/25 20:26 APTT 26 Seconds (21-31) 03/18/25 20:26 PTT Ratio 1.0 03/18/25 20:26 Sodium 140 mmol/L (136-145) 03/20/25 05:41 Potassium 4.1 mmol/L (3.5-5.1) 03/20/25 05:41 Chloride 106 mmol/L (98-107) 03/20/25 05:41 Carbon Dioxide 29 mmol/L (21-32) 03/20/25 05:41 Anion Gap 5 (3-11) 03/20/25 05:41 BUN 32 mg/dl (6-23) H 03/20/25 05:41 Creatinine 1.69 mg/dl (0.6-1.4) H 03/20/25 05:41 Est Cr Clr Drug Dosing 43.8 ml/min 03/20/25 05:41 eGFR 41.56 03/20/25 05:41 BUN/Creatinine Ratio 18.9 (10-20) 03/20/25 05:41 Glucose 117 mg/dl (70-99(Fasting)) H 03/20/25 05:41 Calcium 7.8 mg/dl (8.6-10.3) L 03/20/25 05:41 Magnesium 2.1 mg/dl (1.7-2.4) 03/20/25 05:41 Total Bilirubin 1.2 mg/dl (0.2-1.0) H 03/20/25 05:41 Direct Bilirubin 0.3 mg/dl (0-0.2) H 03/20/25 05:41 AST 51 U/L (13-39) H 03/20/25 05:41 ALT 29 U/L (7-52) 03/20/25 05:41 Alkaline Phosphatase 167 U/L (34-104) H 03/20/25 05:41 Troponin I High Sens 12.1 pg/ml (0-20) 03/19/25 04:40 B-Natriuretic Peptide 281 pg/ml (0-100) H 03/18/25 20:26 Total Protein 6.0 gm/dl (6.0-8.3) 03/20/25 05:41 Albumin 2.1 gm/dl (3.4-5.0) L 03/20/25 05:41 Globulin 4.6 gm/dl (2.5-4.0) H 03/18/25 20:26 Albumin/Globulin Ratio 0.5 (0.9-2) L 03/18/25 20:26 Adenovirus (PCR) Not Detected (NotDetected) 03/18/25 23:41 B. pertussis DNA (PCR) Not Detected (NotDetected) 03/18/25 23:41 B.parapertussis DNA PCR Not Detected (NotDetected) 03/18/25 23:41 C. pneumoniae DNA (PCR) Not Detected (NotDetected) 03/18/25 23:41 Coronavirus OC43 (PCR) Not Detected (NotDetected) 03/18/25 23:41 Coronavirus HKU1 (PCR) Not Detected (NotDetected) 03/18/25 23:41 Coronavirus 229E (PCR) Not Detected (NotDetected) 03/18/25 23:41 SARS-CoV-2 (PCR) Not Detected (NotDetected) 03/18/25 23:41 Coronavirus NL63 (PCR) Not Detected (NotDetected) 03/18/25 23:41 Human Metapneumovir PCR Not Detected (NotDetected) 03/18/25 23:41 Influenza Type A (PCR) Not Detected (NotDetected) 03/18/25 23:41 Influenza Type B (PCR) Not Detected (NotDetected) 03/18/25 23:41 M. pneumoniae (PCR) Not Detected (NotDetected) 03/18/25 23:41 Parainfluenza 1 (PCR) Not Detected (NotDetected) 03/18/25 23:41 Parainfluenza 2 (PCR) Not Detected (NotDetected) 03/18/25 23:41 Parainfluenza 3 (PCR) Not Detected (NotDetected) 03/18/25 23:41 Parainfluenza 4 (PCR) Not Detected (NotDetected) 03/18/25 23:41 RSV (PCR) Not Detected (NotDetected) 03/18/25 23:41 Entero/Rhino (PCR) Not Detected (NotDetected) 03/18/25 23:41 Impressions Chest X-Ray 03/18/25 20:27 Exam(s): XR CXR 1 VIEW EXAM: XR Chest, 1 View CLINICAL HISTORY: Reason for exam: Chest pain, nonspecific. TECHNIQUE: Frontal view of the chest. COMPARISON: 01/18/2025 FINDINGS: Lungs: Persistent but improved interstitial and airspace opacities at the lung bases. Pleural space: No pleural effusion. No pneumothorax. Heart: Cardiomegaly. Bones/joints: Chronic rib fractures on the right. IMPRESSION: Persistent but improved interstitial and airspace opacities at the lung bases. Electronically signed by: Clark Melendez MD 03/18/25 22:27 PM Abdomen Ultrasound 03/19/25 12:08 US abdomen complete CLINICAL HISTORY: Abdominal distension, Cirrhosis and JUWAN. COMPARISON STUDY: Renal ultrasound January 17, 2022. CT of the abdomen and pelvis April 08, 2024. FINDINGS: This exam is moderately compromised by suboptimal penetration. There is no biliary ductal dilatation status post cholecystectomy. Cirrhotic liver is noted. No hepatic lesions are identified. The pancreas is obscured. The abdomin al aorta is also partially obscured but there is no abdominal aortic aneurysm. IVC is obscured. Mild splenomegaly is unchanged since prior CT. The spleen measures 14 cm in maximal sagittal dimension. The right kidney measures 10.3 x 4.9 x 4.8 cm and the left kidney measures 9.2 x 4.8 x 5.1 cm. There is no hydronephrosis. No ascites is identified. IMPRESSION: 1. Cirrhotic liver. No hepatic lesions identified by sonography. Exam compromised by suboptimal penetration. 2. No change in splenomegaly since CT of April 08, 2024. 3. No ascites. 4. No hydronephrosis. 5. No biliary ductal dilatation status post cholecystectomy. ACT 112: Negative or not required by law. Electronically signed by: Nemesio Gtz M.D. 03/19/2025 2:25 PM Diagnostic Findings Cardiac Enzymes 03/20/25 Range/Units 05:41 AST 51 H (13-39) U/L CBC 03/20/25 Range/Units 05:41 WBC 11.49 H (4.8-10.8) K/ul RBC 3.23 L (4.70-6.10) M/uL Hgb 11.0 L (14.0-18.0) g/dL Hct 32.4 L (42.0-52.0) % Plt Count 130 (130-400) K/uL Neut # (Auto) 7.29 H (1.40-6.50) K/uL Lymph # (Auto) 2.85 (1.20-3.40) K/uL Zavala # (Auto) 0.85 H (0.11-0.59) K/uL Eos # (Auto) 0.42 (0.00-0.50) K/uL Baso # (Auto) 0.05 (0.00-0.20) K/uL Comprehensive Metabolic Panel 03/20/25 Range/Units 05:41 Sodium 140 (136-145) mmol/L Potassium 4.1 (3.5-5.1) mmol/L Chloride 106 (98-107) mmol/L Carbon Dioxide 29 (21-32) mmol/L BUN 32 H (6-23) mg/dl Creatinine 1.69 H (0.6-1.4) mg/dl Glucose 117 H (70-99(Fasting)) mg/dl Calcium 7.8 L (8.6-10.3) mg/dl Direct Bilirubin 0.3 H (0-0.2) mg/dl AST 51 H (13-39) U/L ALT 29 (7-52) U/L Alkaline Phosphatase 167 H (34-104) U/L Total Protein 6.0 (6.0-8.3) gm/dl Albumin 2.1 L (3.4-5.0) gm/dl Intake and Output 03/20/25 03/20/25 03/20/25 06:59 14:59 22:59 Intake Total 500 / 500 Output Total 300 / 1300 500 / 500 Balance -300 / -1300 0 / 0 Intake: Oral 500 / 500 Output: Urine 300 / 800 500 / 500 Other: Weight 98.8 kg Weight Measurement Method Standing Scale Medications Administered Home Medications Medication Instructions Recorded Confirmed Last Taken albuterol sulfate 0.63 mg/3 mL 0.63 mg continuous nebulization 03/18/25 03/18/25 Unknown solution for nebulization Q6H PRN Shortness Of Breath Or Wheezing albuterol sulfate 90 mcg/actuation 2 puff inhalation Q4H PRN 03/18/25 03/18/25 Unknown aerosol inhaler Shortness Of Breath Or Wheezing budesonide 0.5 mg/2 mL suspension 0.5 mg inhalation BID 03/18/25 03/18/25 Unknown for nebulization cholecalciferol (vitamin D3) 50 50 mcg PO DAILY 03/18/25 03/18/25 Unknown mcg (2,000 unit) capsule fluticasone fur. 200 mcg-umeclid 1 inh inhalation DAILY 03/18/25 03/18/25 Unknown 62.5 mcg-vilant 25 mcg inhalat.powder (Trelegy Ellipta) furosemide 40 mg tablet 40 mg PO DAILY 03/18/25 03/18/25 Unknown hydrocortisone 5 mg tablet 5 mg PO UD 03/18/25 03/18/25 Unknown metoprolol succinate 25 mg 12.5 mg PO DAILY 03/18/25 03/18/25 Unknown tablet,extended release 24 hr montelukast 10 mg tablet 10 mg PO DAILY 03/18/25 03/18/25 Unknown oxycodone 10 mg tablet 10 mg PO QID 03/18/25 03/18/25 Unknown Active Medications Generic Name Dose Route Start Last Admin Trade Name Freq PRN Reason Stop Dose Admin Amlodipine Besylate 5 mg 03/20/25 09:00 03/20/25 08:20 Amlodipine Besylate 5 Mg Tab PO 04/19/25 08:59 5 mg QAM KARLO Administration Budesonide 0.5 mg 03/19/25 07:00 03/20/25 06:59 Budesonide 0.5 Mg/2 Ml Vial (Pulmicort) INH 04/18/25 06:59 0.5 mg BIDR KARLO Administration Fluticasone Furoate 1 puffs 03/19/25 09:00 03/20/25 08:21 Fluticasone Furoate 200mcg 14 Puffs/Inhaler INH 04/18/25 08:59 1 puffs DAILY KARLO Administration Heparin Sodium (Porcine) 5,000 units 03/19/25 06:00 03/20/25 13:50 Heparin Sod 5,000 Unit/0.5 Ml Vial SQ 04/18/25 05:59 5,000 units Q8 KARLO Administration Hydrocortisone 10 mg 03/19/25 09:00 03/20/25 08:22 Hydrocortisone 10 Mg Tab PO 04/18/25 08:59 10 mg QAM KARLO Administration Hydrocortisone 5 mg 03/19/25 16:30 03/19/25 17:42 Hydrocortisone 10 Mg Tab PO 04/18/25 16:29 5 mg QDD KARLO Administration Montelukast Sodium 10 mg 03/19/25 09:00 03/20/25 08:22 Montelukast Sodium 10 Mg Tablet PO 04/18/25 08:59 10 mg DAILY KARLO Administration Ondansetron HCl 4 mg 03/19/25 09:33 03/19/25 09:55 Ondansetron Inj 2 Mg/Ml 2 Ml Vial IV 04/18/25 09:32 4 mg Q6H PRN Administration Nausea And Vomiting Oxycodone HCl 10 mg 03/19/25 06:00 03/20/25 11:51 Oxycodone Hcl Ir 10 Mg Tab (Immediate Release) PO 04/02/25 05:59 10 mg Q6 KARLO Administration Umeclidinium/Vilanterol 1 puffs 03/19/25 09:00 03/20/25 08:21 Umeclidinium/Vilanterol 62.5/25mcg 7 Puffs/Inhaler INH 04/18/25 08:59 1 puffs DAILY KARLO Administration Vitamin D 50 mcg 03/19/25 09:00 03/20/25 08:21 Cholecalciferol 25 Mcg (1000 Units) Tab PO 04/18/25 08:59 50 mcg DAILY KARLO Administration PG Care Time/CCT Total # of Minutes Spent Total Time Spent with Patient: Total time spent is greater than 50% in coordination of care (as documented) at patient's floor/unit and/or counseling patient: Coding Level of Care Code 48147 SUB INP/OBS CARE 3/50MIN Diagnoses Acute on chronic diastolic HF (heart failure) I50.33 Chronic heart failure with preserved ejection fraction (HFpEF) I50.32 Heart failure chronicity: chronic Shortness of breath R06.02 Other cirrhosis of liver K74.69 Hepatic cirrhosis type: other cirrhosis JUWAN (acute kidney injury) N17.9 Stage 3b chronic kidney disease N18.32 Chronic kidney disease stage 3 subtype: stage 3b (GFR 30-44) (2) (HFpEF) heart failure with preserved ejection fraction Heart failure chronicity: chronic Qualified Code(s): I50.32 - Chronic diastolic (congestive) heart failure (4) Cirrhosis Hepatic cirrhosis type: other cirrhosis Qualified Code(s): K74.69 - Other cirrhosis of liver (6) CKD (chronic kidney disease), stage III Chronic kidney disease stage 3 subtype: stage 3b (GFR 30-44) Qualified Code(s): N18.32 - Chronic kidney disease, stage 3b
[2025-03-21 07:54] LABS: Hematocrit (blood only) 32.6 % (42.0-52.0); Hemoglobin 11.2 g/dL (14.0-18.0); Immature Granulocytes # (auto) 0.03 K/uL (0.01-0.20); Immature Granulocytes % (auto) 0.3 %; Mean Corpuscular Hemoglobin 34.6 pg (25.0-34.0); Mean Corpuscular Volume 100.6 fL (80.0-100.0); Platelet Count 127 K/uL (130-400); RDW Standard Deviation 51.1 fL (36.4-46.3); Red Blood Count 3.24 M/uL (4.70-6.10); White Blood Count 11.45 K/ul (4.8-10.8)
[2025-03-21 08:13] LABS: Anion Gap 2.0 (3-11); Blood Urea Nitrogen 33.0 mg/dl (6-23); Calcium 7.9 mg/dl (8.6-10.3); Carbon Dioxide 30.0 mmol/L (21-32); Chloride 107.0 mmol/L (98-107); Creatinine Clr Calc Pharmacy 46.3 ml/min; Glucose 105.0 mg/dl (70-99(Fasting)); Magnesium 2.3 mg/dl (1.7-2.4); Potassium 4.3 mmol/L (3.5-5.1); Sodium 139.0 mmol/L (136-145)
[2025-03-21 11:04] VITALS: BP 147/66
--- NOTE | 2025-03-21 12:27 | Nephrology Progress Note ---
Date of Service March 21, 2025 Assessment & Plan (1) Restrictive lung disease: Plan: see last OP pulm note and last IP pulm eval last admission; consider if IP pulm eval warranted (2) CKD (chronic kidney disease), stage III: Plan: variable baseline >> somewhere mid ones; had been 1.3; but most recent OP value 01/17/25 is 1.7; had been 1.3-1.5 most recently in December. Creat stable at 1.6 today; chemistries acceptable. on OP lasix 40 mg daily and will resume 20 IV bid17 pending dispo on lung eval Avoid nephrotoxic agents and Abx. Avoid contrast, NSAIDs. daily labs is enough. he came in with SOB. However does not appear to have acute HF; has underlying Lung and liver issue also and probably multifactorial. No UA indicated at this time -resume lasix as above -primary service to consider pulm needs if any -h/o severely symptomatic labile usually orthostatic hypotension >> will check orthostatics before considering modifying liberal SBP target Care reveiwed w/ Dr Jaquez by phone re neph and pulm status, lasix changes, orthostatic VS rationale; we are in agreement. (3) (HFpEF) heart failure with preserved ejection fraction: Plan: he came in with SOB. Currently being assumed as having CHF. However does not appear he has clear e/o CHF. Has underlying Lung and liver isssue also and probably multifactorial. Creat sligghtly higher than baseline but stable at 1.7. >minimal wt change today at 98.7 from 98.8 yesterday cardiology impression acute HF resolved; avoid BB; consider pulm eval; Note pt sees Dr Kolb as OP pulm w/ [facility]; last seen mid Feb and had acute respiratory issues at that time lasix stopped by cardiology late yesterday >> had 3 doses total each 40 mg IV this admission, last one 12.24 PM (4) Severe persistent asthma: Plan: as per restrictive LD Admission and Anticipated Discharge Date Admission Date: March 18, 2025 Subjective tired; feels breathing a bit better Review of Systems 2 Review of Systems: All systems reviewed & are unremarkable except as noted in Subjective Physical Exam 2 Constitutional: well developed and well nourished Eyes: EOM intact bilaterally ENMT: Mouth: + dry oral mucous membranes Respiratory: normal respiratory effort Auscultation: + diminished lung sounds and + crackles (bibasilar) Cardiovascular: Rate/Rhythm: regular rate and regular rhythm Extremities: n o edema Gastrointestinal (Abdomen): Inspection/Auscultation: normal bowel sounds P ercussion/Palpation: abdomen soft; abdomen nontender Musculoskeletal: Extremities: strength 5/5 throughout Skin: no rashes, warm and dry Neurologic: hoyos, fluent speech, no tremor Results & Data Vital Signs (Past 12 Hours) Vital Signs Temp Pulse Pulse Resp BP Pulse Ox O2 Del Method 03/21/25 11:02 36.5 C 63 18 147/66 H 94 Room Air 03/21/25 08:00 Room Air 03/21/25 07:22 60 18 93 Room Air 03/21/25 07:11 36.8 C 66 18 132/60 92 Room Air 03/21/25 07:00 68 03/21/25 03:51 36.9 C 79 16 146/55 H 92 Room Air Laboratory Results 03/21/25 06:49 03/21/25 06:49 Diagnostic Findings abd u/s > no lesion or obstruction, no ascites; stable splenomegaly (2) CKD (chronic kidney disease), stage III Chronic kidney disease stage 3 subtype: stage 3b (GFR 30-44) Qualified Code(s): N18.32 - Chronic kidney disease, stage 3b (3) (HFpEF) heart failure with preserved ejection fraction Heart failure chronicity: chronic Qualified Code(s): I50.32 - Chronic diastolic (congestive) heart failure
[2025-03-21 13:35] VITALS: RESP 16
--- NOTE | 2025-03-21 14:03 | Hospitalist Progress Note ---
Date of Service March 21, 2025 Assessment & Plan (1) Acute CHF: Plan: 74-year-old male with past medical history significant for hypersensitive pneumonitis, eosinophilic asthma, hyperlipidemia, asbestosis pneumoconiosis, restrictive lung disease, chronic sinusitis, chronic CHF with preserved ejection fraction, hypertension, orthostatic hypotension, cirrhosis of liver with ascites, protein calorie malnutrition, history of prostate cancer, stage III CKD, chronic pain syndrome, autonomic neuropathy presents with shortness of breath and weight gain. Patient recently had upper respiratory infection and was treated with doxycycline. After finishing doxycycline about a week ago patient was getting more short of breath and gained about 10 pounds of weight. He took extra Lasix for 3 days and lost about 6 pounds and he took extra Lasix for 1 more day and stopped taking extra Lasix dose. But again in 1 day gained 2 pounds of weight which prompted him to come to the ER today. Weight is mostly in his abdomen region. Getting short of breath on exertion. Has a cough and bringing phlegm. Was having headaches. Currently no headache. No dizziness. Vision is okay. Has postnasal drip. Appetite not great. Denies any chest pain. No nausea. No abdominal pain. Micturating okay. Normal bowel movements. Ambulates okay. Currently hemodynamics are okay. Family in the room. Acute on chronic diastolic CHF Presents with shortness of breath and weight gain Received IV Lasix 40 mg the ER Will continue with IV Lasix 40 mg twice daily Daily weights and I's and O's Clinically a little better Appreciate cardiology input and recommendation Will continue Lasix intravenously 40 mg twice daily and monitor intake output Patient is he has been stable and denies any shortness of breath does not have any other signs of fluid overload He has had fluid balance of -1300 mL and will continue current diuretics as per park manager He has been stable without any symptoms of shortness of breath or any fluid overload He has been ambulating in the room and in the hallway without any difficulties He has had 2 SPEP O2 saturation and does not require any oxygen Discussed with his and he will be discharged home this afternoon JUWAN on CKD stage III Presented with creatinine 1.7 Baseline creatinine 1.3 Appreciate nephrology consult and recommendation to continue Lasix at the current dose Kidney function remains stable with a BUN and creatinine ratio of 32/1.69 slightly improved compared with yesterday Appreciate park manager input and recommendation and discharge instruction Severe persistent asthma with eosinophilia Follows with pulmonary Recently saw pulmonary On Trelegy once daily On nebulized budesonide twice daily On albuterol Fasenra prescribed but not started due to cost Also on hydrocortisone On nebs as needed Lying flat without any audible wheezing and shortness of breath at rest Decreased lung sounds without significant wheezing but has bibasilar crackles No evidence of acute exacerbation of asthma Does not have any evidence of asthma exacerbation Restrictive lung disease due to asbestosis pneumoconiosis Following with pulmonary as an outpatient Hypersensitive pneumonitis Likely due to mold exposure. Managed with hydrocortisone Following with pulmonary Has appointment with rheumatology on Apr 12 Positive SONYA screen History of prostate cancer S/p radiation treatment Hepatic cirrhosis Secondary to MAYBERRY Follows with GI Hypertension Because of hypotension his medications were discontinued in the past Currently on metoprolol and diuretics Will monitor Chronic pain On oxycodone History of autonomic orthostasis Currently no longer on midodrine and fludrocortisone On Cortef. DVT prophylaxis heparin subcu Disposition Telemetry Full code. I have spent a total of 35 minutes examining the patient, reviewed the chart and going over the investigation results, planning of care and discussion with the specialist Updated the about his current condition DR Romelia Jaquez Discussed with the and he will be discharged home this afternoon Admission and Anticipated Discharge Date Admission Date: March 18, 2025 Subjective 03/19/2025 The patient was seen and examined in telemetry unit He was admitted with CHF and shortness of breath Feeling little better since admission Denies any chest pain or palpitation 03/20/2025 The patient was seen and examined in telemetry unit He has been stable and lying flat without any shortness of breath or wheezing He remains generally weak and does not want to be discharged patient 03/21/2025 The patient was seen and examined in telemetry unit He has been much better today denies any shortness of breath at rest No signs of fluid overload He has been ambulating in the room without any difficulties and wants to go home Review of Systems Review of Systems: All systems reviewed and unremarkable except as noted below Physical Exam Physical Exam: Lying in bed without any acute distress Constitutional: well developed and well nourished; not ill appearing Eyes: PERRL, conjunctivae normal, anicteric sclerae ENMT: external ear and nose normal, oropharynx normal Neck: trachea midline, no thyromegaly Respiratory: no respiratory distress Auscultation: + crackles (Minimal crackles at the bases) Cardiovascular: Rate/Rhythm: regular rate and regular rhythm; not tachycardic Heart Sounds: normal S1, normal S2 and + murmur Extremities: no edema Gastrointestinal (Abdomen): Inspection/Auscultation: normal bowel sounds; abdomen not distended Percussion/Palpation: abdomen soft; abdomen nontender Neurologic: normal touch/pain/proprioception and moves all extremities; no focal motor deficits Lymphatic: no cervical or axillary lymphadenopathy Results & Data Results & Data Vital Signs (Past 12 Hours) Vital Signs Temp Pulse Pulse Pulse Pulse Resp Resp 03/21/25 13:34 88 76 24 03/21/25 11:02 36.5 C 63 18 03/21/25 08:00 03/21/25 07:22 60 18 03/21/25 07:11 36.8 C 66 18 03/21/25 07:00 68 03/21/25 03:51 36.9 C 79 16 Resp BP Pulse Ox Pulse Ox Pulse Ox O2 Del Method 03/21/25 13:34 16 91 94 03/21/25 11:02 147/66 H 94 Room Air 03/21/25 08:00 Room Air 03/21/25 07:22 93 Room Air 03/21/25 07:11 132/60 92 Room Air 03/21/25 07:00 03/21/25 03:51 146/55 H 92 Room Air Laboratory Results Short CBC 03/21/25 Range/Units 06:49 WBC 11.45 H (4.8-10.8) K/ul Hgb 11.2 L (14.0-18.0) g/dL Hct 32.6 L (42.0-52.0) % Plt Count 127 L (130-400) K/uL BMP 03/21/25 06:49 Sodium 139 Potassium 4.3 Chloride 107 Carbon Dioxide 30 BUN 33 H Creatinine 1.60 H Glucose 105 H Calcium 7.9 L And sending patient 8 Medications Administered Current Inpatient Medications Acetaminophen (Acetaminophen 325 Mg Tab) 650 mg PO Q4H PRN PRN Reason: Pain or Fever Stop: 04/17/25 23:51 Albuterol (Albuterol 0.083% Nebu Soln 3 Ml Vial) 2.5 mg NEB Q6H PRN PRN Reason: Shortness Of Breath Or Wheezing Stop: 04/18/25 00:26 Albuterol (Albuterol Hfa 8 Gm Inhaler) 2 puffs INH Q4H PRN PRN Reason: Shortness Of Breath Or Wheezing Stop: 04/17/25 23:51 Amlodipine Besylate (Amlodipine Besylate 5 Mg Tab) 5 mg PO QAM COUNTS INCLUDE 234 BEDS AT THE [facility] Stop: 04/19/25 08:59 Last Admin: 03/21/25 08:19 Dose: 5 mg Budesonide (Budesonide 0.5 Mg/2 Ml Vial (Pulmicort)) 0.5 mg INH BIDR COUNTS INCLUDE 234 BEDS AT THE [facility] Stop: 04/18/25 06:59 Last Admin: 03/21/25 07:22 Dose: 0.5 mg Fluticasone Furoate (Fluticasone Furoate 200mcg 14 Puffs/Inhaler) 1 puffs INH DAILY COUNTS INCLUDE 234 BEDS AT THE [facility] Stop: 04/18/25 08:59 Last Admin: 03/21/25 08:19 Dose: 1 puffs Furosemide (Furosemide Inj 20 Mg/2 Ml Vial) 20 mg IV BID17 COUNTS INCLUDE 234 BEDS AT THE [facility] Stop: 04/20/25 13:19 Heparin Sodium (Porcine) (Heparin Sod 5,000 Unit/0.5 Ml Vial) 5,000 units SQ Q8 COUNTS INCLUDE 234 BEDS AT THE [facility] Stop: 04/18/25 05:59 Last Admin: 03/21/25 05:45 Dose: Not Given Hydrocortisone (Hydrocortisone 10 Mg Tab) 10 mg PO QAM COUNTS INCLUDE 234 BEDS AT THE [facility] Stop: 04/18/25 08:59 Last Admin: 03/21/25 08:19 Dose: 10 mg Hydrocortisone (Hydrocortisone 10 Mg Tab) 5 mg PO QDD COUNTS INCLUDE 234 BEDS AT THE [facility] Stop: 04/18/25 16:29 Last Admin: 03/20/25 17:16 Dose: 5 mg Montelukast Sodium (Montelukast Sodium 10 Mg Tablet) 10 mg PO DAILY COUNTS INCLUDE 234 BEDS AT THE [facility] Stop: 04/18/25 08:59 Last Admin: 03/21/25 08:19 Dose: 10 mg Nitroglycerin (Nitroglycerin Sl 0.4 Mg/Tab Tab) 0.4 mg SL Q5M PRN PRN Reason: Chest Pain Stop: 04/17/25 23:51 Ondansetron HCl (Ondansetron Inj 2 Mg/Ml 2 Ml Vial) 4 mg IV Q6H PRN PRN Reason: Nausea And Vomiting Stop: 04/18/25 09:32 Last Admin: 03/19/25 09:55 Dose: 4 mg Oxycodone HCl (Oxycodone Hcl Ir 10 Mg Tab (Immediate Release)) 10 mg PO Q6 KARLO Stop: 04/02/25 05:59 Last Admin: 03/21/25 11:58 Dose: 10 mg Polyethylene Glycol (Polyethylene (Miralax) 17 Gm Pack) 17 gm PO DAILY PRN PRN Reason: Constipation Stop: 04/17/25 23:51 Umeclidinium/Vilanterol (Umeclidinium/Vilanterol 62.5/25mcg 7 Puffs/Inhaler) 1 puffs INH DAILY KARLO Stop: 04/18/25 08:59 Last Admin: 03/21/25 08:18 Dose: 1 puffs Vitamin D (Cholecalciferol 25 Mcg (1000 Units) Tab) 50 mcg PO DAILY KARLO Stop: 04/18/25 08:59 Last Admin: 03/21/25 08:19 Dose: 50 mcg
[2025-03-21] MEDS: FUROSEMIDE INJ 20 MG/2 ML VIAL IV SCH (14:30)
[2025-03-21 14:40] VITALS: TEMP 97.5; O2SAT 97
--- NOTE | 2025-03-21 17:03 | Discharge Summary ---
Date of Service March 21, 2025 Admission HPI Per Admitting Provider 74-year-old male with past medical history significant for hypersensitive pneumonitis, eosinophilic asthma, hyperlipidemia, asbestosis pneumoconiosis, restrictive lung disease, chronic sinusitis, chronic CHF with preserved ejection fraction, hypertension, orthostatic hypotension, cirrhosis of liver with ascites, protein calorie malnutrition, history of prostate cancer, stage III CKD, chronic pain syndrome, autonomic neuropathy presents with shortness of breath and weight gain. Patient recently had upper respiratory infection and was treated with doxycycline. After finishing doxycycline about a week ago rc wilson was getting more short of breath and gained about 10 pounds of weight. He took extra Lasix for 3 days and lost about 6 pounds and he took extra Lasix for 1 more day and stopped taking extra Lasix dose. But again in 1 day gained 2 pounds of weight which prompted him to come to the ER today. Weight is mostly in his abdomen region. Getting short of breath on exertion. Has a cough and bringing phlegm. Was having headaches. Currently no headache. No dizziness. Vision is okay. Has postnasal drip. Appetite not great. Denies any chest pain. No nausea. No abdominal pain. Micturating okay. Normal bowel movements. Ambulates okay. Currently hemodynamics are okay. Family in the room. Patient in December 2024 was admitted to the hospital for shortness of breath and treated for CHF with diuretics and echo showed EF of 55 to 60% grade 2 diastolic dysfunction. Also seen by nephrology for JUWAN and was discharged on Lasix 40 mg twice a day. Past medical history. As mentioned above. Past surgical history. Colonoscopy. EGD. EGD with endoscopic ultrasound. Injection of lumbosacral spine. Flexible laryngoscopy. Arthroscopic knee surgery. Bilateral biceps tendon rupture. Sinus surgery. Placement of interstitial device for radiation therapy for prostate. Cholecystectomy laparoscopic. Inguinal hernia repair. Social history. . Quit smoking 1986. Smoked 1 pack a day for 20 years. No alcohol use. No drug use. Family history. Son has aortic stenosis. Father has CAD. Mother had diabetes. Stroke. Father had prostate cancer. Admission Exam Per Admitting Provider Physical Exam: General- Not in distress Head- atraumatic Eyes- PERRL. ENT- oropharynx clear Neck- supple, no JVD. Lungs- clear to auscultation mild bibasilar crackles, no wheezing Heart- regular rhythm; no murmur, no gallop. Abdomen- normal bowel sounds, soft, nontender, no distension Extremities- no pretibial edema, no erythema seen Neuro- alert, oriented PERRL, no facial palsy; no dysarthria; moves extremities Principal Diagnosis Acute on chronic HFpEF, restrictive lung disease, severe persistent asthma, CKD Discharge Exam Lying in bed without any acute distress Constitutional well developed and well nourished; not ill appearing Eyes PERRL, conjunctivae normal, anicteric sclerae ENMT external ear and nose normal, oropharynx normal Neck trachea midline, no thyromegaly Respiratory no respiratory distress Auscultation: + crackles (Minimal crackles at the bases) Cardiovascular Rate/Rhythm: regular rate and regular rhythm; not tachycardic Heart Sounds: normal S1, normal S2 and + murmur Extremities: no edema Gastrointestinal (Abdomen) Inspection/Auscultation: normal bowel sounds; abdomen not distended Percussion/Palpation: abdomen soft; abdomen nontender Neurologic normal touch/pain/proprioception and moves all extremities; no focal motor deficits Lymphatic no cervical or axillary lymphadenopathy Discharge Data Allergies Allergy/AdvReac Type Severity Reaction Status Date / Time lisinopril Allergy Dizziness Verified 07/25/24 22:46 losartan Allergy Dizziness Verified 07/25/24 22:46 Consultations 03/18/25 22:45 ED Decision to Admit Stat 03/19/25 08:00 Consult Cardiology Routine Consult Nephrology Routine Ordered Studies 03/19/25 12:08 US abdomen complete Urgent Hospital Course (1) Acute CHF: 74-year-old male with past medical history significant for hypersensitive pneumonitis, eosinophilic asthma, hyperlipidemia, asbestosis pneumoconiosis, restrictive lung disease, chronic sinusitis, chronic CHF with preserved ejection fraction, hypertension, orthostatic hypotension, cirrhosis of liver with ascites, protein calorie malnutrition, history of prostate cancer, stage III CKD, chronic pain syndrome, autonomic neuropathy presents with shortness of breath and weight gain. Patient recently had upper respiratory infection and was treated with doxycycline. After finishing doxycycline about a week ago patient was getting more short of breath and gained about 10 pounds of weight. He took extra Lasix for 3 days and lost about 6 pounds and he took extra Lasix for 1 more day and stopped taking extra Lasix dose. But again in 1 day gained 2 pounds of weight which prompted him to come to the ER today. Weight is mostly in his abdomen region. Getting short of breath on exertion. Has a cough and bringing phlegm. Was having headaches. Currently no headache. No dizziness. Vision is okay. Has postnasal drip. Appetite not great. Denies any chest pain. No nausea. No abdominal pain. Micturating okay. Normal bowel movements. Ambulates okay. Currently hemodynamics are okay. Family in the room. Acute on chronic diastolic CHF Presents with shortness of breath and weight gain Received IV Lasix 40 mg the ER Will continue with IV Lasix 40 mg twice daily Daily weights and I's and O's Clinically a little better Appreciate cardiology input and recommendation Will continue Lasix intravenously 40 mg twice daily and monitor intake output Patient is he has been stable and denies any shortness of breath does not have any other signs of fluid overload He has had fluid balance of -1300 mL and will continue current diuretics as per local combination truck driver He has been stable without any symptoms of shortness of breath or any fluid overload He has been ambulating in the room and in the hallway without any difficulties He has had 2 SPEP O2 saturation and does not require any oxygen Discussed with his and he will be discharged home this afternoon JUWAN on CKD stage III Presented with creatinine 1.7 Baseline creatinine 1.3 Appreciate nephrology consult and recommendation to continue Lasix at the current dose Kidney function remains stable with a BUN and creatinine ratio of 32/1.69 slightly improved compared with yesterday Appreciate local combination truck driver input and recommendation and discharge instruction Severe persistent asthma with eosinophilia Follows with pulmonary Recently saw pulmonary On Trelegy once daily On nebulized budesonide twice daily On albuterol Fasenra prescribed but not started due to cost Also on hydrocortisone On nebs as needed Lying flat without any audible wheezing and shortness of breath at rest Decreased lung sounds without significant wheezing but has bibasilar crackles No evidence of acute exacerbation of asthma Does not have any evidence of asthma exacerbation Restrictive lung disease due to asbestosis pneumoconiosis Following with pulmonary as an outpatient Hypersensitive pneumonitis Likely due to mold exposure. Managed with hydrocortisone Following with pulmonary Has appointment with rheumatology on Apr 12 Positive SONYA screen History of prostate cancer S/p radiation treatment Hepatic cirrhosis Secondary to MAYBERRY Follows with GI Hypertension Because of hypotension his medications were discontinued in the past Currently on metoprolol and diuretics Will monitor Chronic pain On oxycodone History of autonomic orthostasis Currently no longer on midodrine and fludrocortisone On Cortef. DVT prophylaxis heparin subcu Disposition Telemetry Full code. I have spent a total of 35 minutes examining the patient, reviewed the chart and going over the investigation results, planning of care and discussion with the specialist Updated the about his current condition DR Romelia Jaquez Discussed with the and he will be discharged home this afternoon Total Time Total Time Spent Total Time Spent (In Minutes): 35 Minutes Discharge Plan Discharge Items Patient Disposition: Home - Self-Care Reason For Visit: ACUTE CHF Discharge Diagnosis: Acute on chronic HFpEF, restrictive lung disease, severe persistent asthma, CKD Condition on Discharge: Good Activity: Resume your previous activity Non-emergency contact: Primary Care Provider Call non-emergency contact if: you have any medication questions and your symptoms worsen Follow-up/Referrals: Jerzy Glez MD [Primary Care Provider] - (Date & Time 04/05/2025 11:00 AM Provider: Deb Camara MD [facility], [facility] ) Diet: Heart Healthy Addtl Attending Provider Instructions: Please take precaution to avoid falls Take your medications as advised Please keep appointments with a healthcare provider Your metoprolol has been discontinued due to your persistent asthma and replaced with Amlodipine to control blood pressure Try to use oxycodone half of 10 mg tablet 4 times daily to avoid any drowsiness and respiratory depression and also constipation and addiction Pending Studies at Discharge: No Stand-Alone Forms: My [facility] [place], Smoking Cessation Medications and DC Order Prescriptions: New amlodipine 5 mg Tablet 5 mg PO QAM Qty: 30 0RF Continued hydrocortisone 5 mg tablet 5 mg PO UD Rx Instructions: Hydrocortisone 10mg po in AM and 5mg po in PM furosemide 40 mg tablet 40 mg PO DAILY albuterol sulfate 0.63 mg/3 mL solution for nebulization 0.63 mg continuous nebulization Q6H PRN (Reason: Shortness Of Breath Or Wheezing) budesonide 0.5 mg/2 mL suspension for nebulization 0.5 mg inhalation BID Rx Instructions: VIA nebulizer montelukast 10 mg tablet 10 mg PO DAILY albuterol sulfate 90 mcg/actuation HFA aerosol inhaler 2 puff INHALATION Q4H PRN (Reason: Shortness Of Breath Or Wheezing) oxycodone 10 mg tablet 10 mg PO QID cholecalciferol (vitamin D3) 50 mcg (2,000 unit) capsule 50 mcg PO DAILY Trelegy Ellipta 200-62.5-25 mcg blister with device 1 inh INHALATION DAILY Discontinued metoprolol succinate 25 mg tablet extended release 24 hr 12.5 mg PO DAILY Discharge Orders: Discharge Order (Routine); Ordered 03/21/25 Ordered By: Mathew Jaquez Admission Data Admit Date/Time: 03/18/25 23:36 Attending Provider: Mathew Jaquez Admit Provider: Toni Monroe Primary Care Provider: Jerzy Glez Other Providers: Toni Monroe; Kaity Bhatti; Satinder Parra; Jean-Paul Sumner; Mark Link; Gustavo Villarreal; Jerzy Hernandez; Tamra Villarreal; Mary Jane Hawkins; Meme Victoria; Bing Bains; Kaity Zavala; Reynaldo Archuleta; Bhupendra Hunter; Melina Cooney; Ashlee Pinto; Sandra Laura; Ariel Membreno; Sandoval Suazo; Halle Sumner; Brandee Moreno; Hany Simmons; Vaibhav Hudson; Holly Winn; Kerri Garcia
--- NOTE | 2025-03-21 17:12 | Cardiology Progress Note ---
Date of Service March 21, 2025 Assessment & Plan (1) Acute on chronic diastolic HF (heart failure): (2) (HFpEF) heart failure with preserved ejection fraction: (3) Shortness of breath: (4) Cirrhosis: (5) JUWAN (acute kidney injury): (6) CKD (chronic kidney disease), stage III: Plan Patient presenting to [facility] ED 03/18/25 for recent weight gain and progressive SOB despite recent DTP. Previously hospitalized in July and December of this year for JUWAN and acute on chronic HFpEF requiring IV diuresis. Symptoms seem improved. Does not appear to be volume overloaded on exam. Patient has a complex medical history including lung disease and hepatic cirrhosis which could be contributing to symptoms. Patient continues to not be in acute CHF today at the time of exam s/p Viral syndrome COPD/Asthma Exacerbation ILD JUWAN on CKD - better HTN - poorly controlled -> stable HFpEF - stable Cirrhosis Mild to moderate PHTN Recommend: patient's acute CHF in the ER has resolved - clinically not in acute CHF DCd Lasix due to azotemia DCd beta blockers due to hyperreactive airway disease continue Norvasc for HTN bronchodilators GDMT for HFpEF limited due to renal insufficiency adjust anti-HTN meds keeping systolic BP between 100-140 mmHg avoid hypovolemia keep patient euvolemic DVT prophylaxis salt restriction counseling increase PO fluid intake stable from cardiac standpoint f/u with cardiology post discharge Admission and Anticipated Discharge Date Admission Date: March 18, 2025 Subjective Patient on exam is lying in bed in NAD; no c/o cp, sob, palpitations, dizziness, LOC, cough, fever ambulatory with no symptoms Review of Systems Review of Systems: as per hpi Physical Exam Constitutional: WD/WN, vitals as above Eyes: anicteric sclerae, pink conjunctiva Neck: supple, NT Respiratory: normal respiratory effort BLBS, no rales,no wheezing Cardiovascular: RRR, no murmur, no edema Rate/Rhythm: regular rate and regular rhythm (systolic murmur) Heart Sounds: normal S1, normal S2 and + murmur (+1/6 systolic murmur) Vessels: no JVD Extremities: no edema Gastrointestinal (Abdomen): normal bowel sounds, soft, nontender, no hepatosplenomegaly Skin: no rashes, warm and dry Neurologic: PERRL, EOMI, accommodation nl, no face palsy, no dysarthria Psychiatric: A+Ox3, euthymic affect Results & Data Vital Signs (Past 12 Hours) Vital Signs Vital Signs Temp 36.4 C L 03/21/25 15:34 Pulse 63 03/21/25 15:34 Resp 16 03/21/25 15:34 BP 147/66 H 03/21/25 15:34 Pulse Ox 97 03/21/25 15:34 O2 Del Method Room Air 03/21/25 14:40 O2 Flow Rate 0 03/19/25 00:49 FiO2 21 03/19/25 07:21 Intake & Output 03/20/25 03/21/25 03/21/25 18:59 06:59 18:59 Intake Total 500 / 600 100 / 600 360 / 360 Output Total 500 / 1150 650 / 1150 200 / 200 Balance 0 / -550 -550 / -550 160 / 160 Weight 98.7 kg 98.7 kg Intake: Oral 500 / 600 100 / 600 360 / 360 Output: Urine 500 / 1150 650 / 1150 200 / 200 Other: Weight Measurement Method Standing Scale Temp Pulse Pulse Pulse Pulse Resp Resp 03/21/25 15:34 36.4 C L 63 16 03/21/25 14:40 36.4 C L 16 03/21/25 14:00 68 03/21/25 13:34 88 76 24 03/21/25 11:02 36.5 C 63 18 03/21/25 08:00 03/21/25 07:22 60 18 03/21/25 07:11 36.8 C 66 18 03/21/25 07:00 68 Resp BP Pulse Ox Pulse Ox Pulse Ox O2 Del Method 03/21/25 15:34 147/66 H 97 03/21/25 14:40 97 Room Air 03/21/25 14:00 03/21/25 13:34 16 91 94 03/21/25 11:02 147/66 H 94 Room Air 03/21/25 08:00 Room Air 03/21/25 07:22 93 Room Air 03/21/25 07:11 132/60 92 Room Air 03/21/25 07:00 Laboratory Results Laboratory Results WBC 11.45 K/ul (4.8-10.8) H 03/21/25 06:49 RBC 3.24 M/uL (4.70-6.10) L 03/21/25 06:49 Hgb 11.2 g/dL (14.0-18.0) L 03/21/25 06:49 Hct 32.6 % (42.0-52.0) L 03/21/25 06:49 MCV 100.6 fL (80.0-100.0) H 03/21/25 06:49 MCH 34.6 pg (25.0-34.0) H 03/21/25 06:49 MCHC 34.4 g/dL (32.0-36.0) 03/21/25 06:49 RDW Std Deviation 51.1 fL (36.4-46.3) H 03/21/25 06:49 RDW Coeff of Marjorie 13.8 % (11.5-14.5) 03/21/25 06:49 Plt Count 127 K/uL (130-400) L 03/21/25 06:49 MPV 12.3 fL (9.4-12.4) 03/21/25 06:49 Immature Gran % (Auto) 0.3 % 03/21/25 06:49 Neut % (Auto) 67.9 % 03/21/25 06:49 Lymph % (Auto) 21.5 % 03/21/25 06:49 Dewitt % (Auto) 6.6 % 03/21/25 06:49 Eos % (Auto) 3.3 % 03/21/25 06:49 Baso % (Auto) 0.4 % 03/21/25 06:49 Neut # (Auto) 7.77 K/uL (1.40-6.50) H 03/21/25 06:49 Lymph # (Auto) 2.46 K/uL (1.20-3.40) 03/21/25 06:49 Dewitt # (Auto) 0.76 K/uL (0.11-0.59) H 03/21/25 06:49 Eos # (Auto) 0.38 K/uL (0.00-0.50) 03/21/25 06:49 Baso # (Auto) 0.05 K/uL (0.00-0.20) 03/21/25 06:49 Immature Gran # (Auto) 0.03 K/uL (0.01-0.20) 03/21/25 06:49 PT 11.9 Seconds (9.0-12.0) 03/18/25 20: INR 1.1 (0.9-1.1) 03/18/25 20: APTT 26 Seconds (21-31) 03/18/25 20: PTT Ratio 1.0 03/18/25 20: Sodium 139 mmol/L (136-145) 03/21/25 06:49 Potassium 4.3 mmol/L (3.5-5.1) 03/21/25 06:49 Chloride 107 mmol/L (98-107) 03/21/25 06:49 Carbon Dioxide 30 mmol/L (21-32) 03/21/25 06:49 Anion Gap 2 (3-11) L 03/21/25 06:49 BUN 33 mg/dl (6-23) H 03/21/25 06:49 Creatinine 1.60 mg/dl (0.6-1.4) H 03/21/25 06:49 Est Cr Clr Drug Dosing 46.3 ml/min 03/21/25 06:49 eGFR 44.38 03/21/25 06:49 BUN/Creatinine Ratio 20.6 (10-20) H 03/21/25 06:49 Glucose 105 mg/dl (70-99(Fasting)) H 03/21/25 06:49 Calcium 7.9 mg/dl (8.6-10.3) L 03/21/25 06:49 Phosphorus 3.2 mg/dl (2.5-4.9) 03/21/25 06:49 Magnesium 2.3 mg/dl (1.7-2.4) 03/21/25 06:49 Total Bilirubin 1.2 mg/dl (0.2-1.0) H 03/20/25 05:41 Direct Bilirubin 0.3 mg/dl (0-0.2) H 03/20/25 05:41 AST 51 U/L (13-39) H 03/20/25 05:41 ALT 29 U/L (7-52) 03/20/25 05:41 Alkaline Phosphatase 167 U/L (34-104) H 03/20/25 05:41 Troponin I High Sens 12.1 pg/ml (0-20) 03/19/25 04:40 B-Natriuretic Peptide 281 pg/ml (0-100) H 03/18/25 20:26 Total Protein 6.0 gm/dl (6.0-8.3) 03/20/25 05:41 Albumin 2.1 gm/dl (3.4-5.0) L 03/20/25 05:41 Globulin 4.6 gm/dl (2.5-4.0) H 03/18/25 20:26 Albumin/Globulin Ratio 0.5 (0.9-2) L 03/18/25 20:26 Adenovirus (PCR) Not Detected (NotDetected) 03/18/25 23:41 B. pertussis DNA (PCR) Not Detected (NotDetected) 03/18/25 23:41 B.parapertussis DNA PCR Not Detected (NotDetected) 03/18/25 23:41 C. pneumoniae DNA (PCR) Not Detected (NotDetected) 03/18/25 23:41 Coronavirus OC43 (PCR) Not Detected (NotDetected) 03/18/25 23:41 Coronavirus HKU1 (PCR) Not Detected (NotDetected) 03/18/25 23:41 Coronavirus 229E (PCR) Not Detected (NotDetected) 03/18/25 23:41 SARS-CoV-2 (PCR) Not Detected (NotDetected) 03/18/25 23:41 Coronavirus NL63 (PCR) Not Detected (NotDetected) 03/18/25 23:41 Human Metapneumovir PCR Not Detected (NotDetected) 03/18/25 23:41 Influenza Type A (PCR) Not Detected (NotDetected) 03/18/25 23:41 Influenza Type B (PCR) Not Detected (NotDetected) 03/18/25 23:41 M. pneumoniae (PCR) Not Detected (NotDetected) 03/18/25 23:41 Parainfluenza 1 (PCR) Not Detected (NotDetected) 03/18/25 23:41 Parainfluenza 2 (PCR) Not Detected (NotDetected) 03/18/25 23:41 Parainfluenza 3 (PCR) Not Detected (NotDetected) 03/18/25 23:41 Parainfluenza 4 (PCR) Not Detected (NotDetected) 03/18/25 23:41 RSV (PCR) Not Detected (NotDetected) 03/18/25 23:41 Entero/Rhino (PCR) Not Detected (NotDetected) 03/18/25 23:41 Impressions Chest X-Ray 03/18/25 20:27 Exam(s): XR CXR 1 VIEW EXAM: XR Chest, 1 View CLINICAL HISTORY: Reason for exam: Chest pain, nonspecific. TECHNIQUE: Frontal view of the chest. COMPARISON: 01/18/2025 FINDINGS: Lungs: Persistent but improved interstitial and airspace opacities at the lung bases. Pleural space: No pleural effusion. No pneumothorax. Heart: Cardiomegaly. Bones/joints: Chronic rib fractures on the right. IMPRESSION: Persistent but improved interstitial and airspace opacities at the lung bases. Electronically signed by: Clark Melendez MD 03/18/25 22:27 PM Abdomen Ultrasound 03/19/25 12:08 US abdomen complete CLINICAL HISTORY: Abdominal distension, Cirrhosis and JUWAN. COMPARISON STUDY: Renal ultrasound January 17, 2022. CT of the abdomen and pelvis April 08, 2024. FINDINGS: This exam is moderately compromised by suboptimal penetration. There is no biliary ductal dilatation status post cholecystectomy. Cirrhotic liver is noted. No hepatic lesions are identified. The pancreas is obscured. The abdominal aorta is also partially obscured but there is no abdominal aortic aneurysm. IVC is obscured. Mild splenomegaly is unchanged since prior CT. The spleen measures 14 cm in maximal sagittal dimension. The right kidney measures 10.3 x 4.9 x 4.8 cm and the left kidney measures 9.2 x 4.8 x 5.1 cm. There is no hydronephrosis. No ascites is identified. IMPRESSION: 1. Cirrhotic liver. No hepatic lesions identified by sonography. Exam compromised by suboptimal penetration. 2. No change in splenomegaly since CT of April 08, 2024. 3. No ascites. 4. No hydronephrosis. 5. No biliary ductal dilatation status post cholecystectomy. ACT 112: Negative or not required by law. Electronically signed by: Nemesio Gtz M.D. 03/19/2025 2:25 PM Diagnostic Findings CBC 03/21/25 Range/Units 06:49 WBC 11.45 H (4.8-10.8) K/ul RBC 3.24 L (4.70-6.10) M/uL Hgb 11.2 L (14.0-18.0) g/dL Hct 32.6 L (42.0-52.0) % Plt Count 127 L (130-400) K/uL Neut # (Auto) 7.77 H (1.40-6.50) K/uL Lymph # (Auto) 2.46 (1.20-3.40) K/uL Dewitt # (Auto) 0.76 H (0.11-0.59) K/uL Eos # (Auto) 0.38 (0.00-0.50) K/uL Baso # (Auto) 0.05 (0.00-0.20) K/uL Comprehensive Metabolic Panel 03/21/25 Range/Units 06:49 Sodium 139 (136-145) mmol/L Potassium 4.3 (3.5-5.1) mmol/L Chloride 107 (98-107) mmol/L Carbon Dioxide 30 (21-32) mmol/L BUN 33 H (6-23) mg/dl Creatinine 1.60 H (0.6-1.4) mg/dl Glucose 105 H (70-99(Fasting)) mg/dl Calcium 7.9 L (8.6-10.3) mg/dl Intake and Output 03/21/25 03/21/25 03/21/25 06:59 14:59 22:59 Intake Total 100 / 600 360 / 360 Output Total 200 / 200 Balance 100 / -550 160 / 160 Intake: Oral 100 / 600 360 / 360 Output: Urine 200 / 200 Other: Weight 98.7 kg 98.7 kg Weight Measurement Method Standing Scale Patient Weight 03/22/25 06:59 Weight 98.7 kg Medications Administered Home Medications Medication Instructions Recorded Confirmed Last Taken albuterol sulfate 0.63 mg/3 mL 0.63 mg continuous nebulization 03/18/25 03/18/25 Unknown solution for nebulization Q6H PRN Shortness Of Breath Or Wheezing albuterol sulfate 90 mcg/actuation 2 puff inhalation Q4H PRN 03/18/25 03/18/25 Unknown aerosol inhaler Shortness Of Breath Or Wheezing budesonide 0.5 mg/2 mL suspension 0.5 mg inhalation BID 03/18/25 03/18/25 Unknown for nebulization cholecalciferol (vitamin D3) 50 50 mcg PO DAILY 03/18/25 03/18/25 Unknown mcg (2,000 unit) capsule fluticasone fur. 200 mcg-umeclid 1 inh inhalation DAILY 03/18/25 03/18/25 Unknown 62.5 mcg-vilant 25 mcg inhalat.powder (Trelegy Ellipta) furosemide 40 mg tablet 40 mg PO DAILY 03/18/25 03/18/25 Unknown hydrocortisone 5 mg tablet 5 mg PO UD 03/18/25 03/18/25 Unknown montelukast 10 mg tablet 10 mg PO DAILY 03/18/25 03/18/25 Unknown oxycodone 10 mg tablet 10 mg PO QID 03/18/25 03/18/25 Unknown amlodipine 5 mg tablet 5 mg PO QAM #30 tabs 03/21/25 Unknown Active Medications Generic Name Dose Route Start Last Admin Trade Name Freq PRN Reason Stop Dose Admin Amlodipine Besylate 5 mg 03/20/25 09:00 03/21/25 08:19 Amlodipine Besylate 5 Mg Tab PO 04/19/25 08:59 5 mg QAM KARLO Administration Budesonide 0.5 mg 03/19/25 07:00 03/21/25 07:22 Budesonide 0.5 Mg/2 Ml Vial (Pulmicort) INH 04/18/25 06:59 0.5 mg BIDR KARLO Administration Fluticasone Furoate 1 puffs 03/19/25 09:00 03/21/25 08:19 Fluticasone Furoate 200mcg 14 Puffs/Inhaler INH 04/18/25 08:59 1 puffs DAILY KARLO Administration Furosemide 20 mg 03/21/25 13:20 03/21/25 16:55 Furosemide Inj 20 Mg/2 Ml Vial IV 04/20/25 13:19 20 mg BID17 KARLO Administration Heparin Sodium (Porcine) 5,000 units 03/19/25 06:00 03/21/25 14:53 Heparin Sod 5,000 Unit/0.5 Ml Vial SQ 04/18/25 05:59 Not Given Q8 KARLO Hydrocortisone 10 mg 03/19/25 09:00 03/21/25 08:19 Hydrocortisone 10 Mg Tab PO 04/18/25 08:59 10 mg QAM KARLO Administration Hydrocortisone 5 mg 03/19/25 16:30 03/21/25 16:56 Hydrocortisone 10 Mg Tab PO 04/18/25 16:29 5 mg QDD KARLO Administration Montelukast Sodium 10 mg 03/19/25 09:00 03/21/25 08:19 Montelukast Sodium 10 Mg Tablet PO 04/18/25 08:59 10 mg DAILY KARLO Administration Ondansetron HCl 4 mg 03/19/25 09:33 03/19/25 09:55 Ondansetron Inj 2 Mg/Ml 2 Ml Vial IV 04/18/25 09:32 4 mg Q6H PRN Administration Nausea And Vomiting Oxycodone HCl 10 mg 03/19/25 06:00 03/21/25 11:58 Oxycodone Hcl Ir 10 Mg Tab (Immediate Release) PO 04/02/25 05:59 10 mg Q6 KARLO Administration Umeclidinium/Vilanterol 1 puffs 03/19/25 09:00 03/21/25 08:18 Umeclidinium/Vilanterol 62.5/25mcg 7 Puffs/Inhaler INH 04/18/25 08:59 1 puffs DAILY KARLO Administration Vitamin D 50 mcg 03/19/25 09:00 03/21/25 08:19 Cholecalciferol 25 Mcg (1000 Units) Tab PO 04/18/25 08:59 50 mcg DAILY KARLO Administration PG Care Time/CCT Total # of Minutes Spent Total Time Spent with Patient: Total time spent is greater than 50% in coordination of care (as documented) at patient's floor/unit and/or counseling patient: Coding Level of Care Code 96425 SUB INP/OBS CARE 3/50MIN Diagnoses Acute on chronic diastolic HF (heart failure) I50.33 Chronic heart failure with preserved ejection fraction (HFpEF) I50.32 Heart failure chronicity: chronic Shortness of breath R06.02 Other cirrhosis of liver K74.69 Hepatic cirrhosis type: other cirrhosis JUWAN (acute kidney injury) N17.9 Stage 3b chronic kidney disease N18.32 Chronic kidney disease stage 3 subtype: stage 3b (GFR 30-44) (2) (HFpEF) heart failure with preserved ejection fraction Heart failure chronicity: chronic Qualified Code(s): I50.32 - Chronic diastolic (congestive) heart failure (4) Cirrhosis Hepatic cirrhosis type: other cirrhosis Qualified Code(s): K74.69 - Other cirrhosis of liver (6) CKD (chronic kidney disease), stage III Chronic kidney disease stage 3 subtype: stage 3b (GFR 30-44) Qualified Code(s): N18.32 - Chronic kidney disease, stage 3b
[2025-03-21 18:13] VITALS: PULSE 63
== END 2025-03-21 18:00 | disposition home or self-care (01) | DRG 291 ==
LOC: ED 19:59 → EDINP 23:39 → 2S 23:52
DX: J67.9 Hypersensitivity pneumonitis due to unspecified organic dust; N18.30 Chronic kidney disease, stage 3 unspecified; J32.9 Chronic sinusitis, unspecified; K74.69 Other cirrhosis of liver; J98.4 Other disorders of lung; N17.9 Acute kidney failure, unspecified; Z92.3 Personal history of irradiation; Z77.120 Contact with and (suspected) exposure to mold (toxic); F17.210 Nicotine dependence, cigarettes, uncomplicated; I95.1 Orthostatic hypotension; I27.20 Pulmonary hypertension, unspecified; Z87.891 Personal history of nicotine dependence; J82.83 Eosinophilic asthma; I13.0 Hypertensive heart and chronic kidney disease with heart failure and stage 1 through stage 4 chronic kidney disease, or unspecified chronic kidney disease; D64.9 Anemia, unspecified; J45.50 Severe persistent asthma, uncomplicated; K75.81 Nonalcoholic steatohepatitis (NASH); I50.33 Acute on chronic diastolic (congestive) heart failure; E78.5 Hyperlipidemia, unspecified; E11.22 Type 2 diabetes mellitus with diabetic chronic kidney disease; G89.4 Chronic pain syndrome; E11.43 Type 2 diabetes mellitus with diabetic autonomic (poly)neuropathy; J61 Pneumoconiosis due to asbestos and other mineral fibers; Z85.46 Personal history of malignant neoplasm of prostate